=== PATIENT | female | born 2000 | race Caucasian/White ===

== ENCOUNTER 2023-01-12 12:02 | Emergency (ER) | payer BC, OTHER, SELFPAY ==
[2023-01-12 12:19] VITALS: BP 137/78; PULSE 93; RESP 18; TEMP 36.9; O2SAT 98
--- NOTE | 2023-01-12 12:35 | XR_ITS ---
The [address] [address] Patient Name: BRYNN WALLACE MRN: [id number] date: 2000 Sex: F Assigned Patient Location: ED.MAIN Current Patient Location: ER Accession/Order Number: [id number] Exam Date: 01/12/2023 13:18 Report Date: 01/12/2023 13:43 At the request of: TARYN GREEN Procedure: XR chest 1V EXAMINATION: XR chest 1V 01/12/2023 10:41 AM PDT HISTORY: cough TECHNIQUE: Single frontal view of the chest acquired. COMPARISONS: Chest x-ray 12/12/2020. FINDINGS: Lines/tubes/other: None. Heart and mediastinum: The heart and the mediastinum are within normal limits for technique. Bones: No acute osseous abnormality. Hypoplastic bilateral first ribs. Lungs: Minimal patchy opacification of the right base. No pulmonary edema. Lung volumes. Pleura: There is no significant pleural effusion or pneumothorax. Other: None. XR/XR chest 1V IMPRESSION: Minimal patchy opacification of the right base which could represent atelectasis (particularly in the setting of low lung volumes) versus pneumonia. Electronically authenticated by: ROBBIE AKBAR Date: 01/12/2023 13:43
--- NOTE | 2023-01-12 12:35 | ED.URI1 ---
HPI - URI/Sore Throat General Chief Complaint: Upper Respiratory Infection Stated Complaint: SORE THROAT Time Seen by Provider: 01/12/23 12:08 Source: patient History of Present Illness HPI Narrative: 22-year-old female presents to the emergency Department for cough. She's had this for three days. Two days ago she was tested for strep and Covid and they were negative and she was starting to feel better but she feels worse today. No known fever. 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 No vomiting or diarrhea. The cough is mostly nonproductive. Related Data Previous Rx's Medication Instructions Recorded azithromycin 250 mg tablet See Rx Instructions PO .COMPLEX #6 01/12/23 (Zithromax Z-Abraham) tabs Allergies Allergy/AdvReac Type Severity Reaction Status Date / Time No Known Drug Allergies Allergy Verified 01/12/23 12:19 Review of Systems ROS Narrative A ten point review of systems is negative except as noted above. Exam Narrative Exam Narrative: Nurses note and vital signs reviewed and patient is not hypoxic. General: The patient appears well and in no apparent distress. Patient is resting comfortably on cart. Skin: Warm, dry, no pallor noted. There is no rash noted. Head: Normocephalic, atraumatic Eye: Normal conjunctiva, no drainage Ears, Nose, Mouth, and Throat: oral mucosa is moist. Nares patent. Cardiovascular: Regular Rate and Rhythm Respiratory: Patient is in no distress, no accessory muscle use, lungs are clear to auscultation, no wheezing, rales or rhonchi Back: non-tender GI: soft and nontender Musculoskeletal: The patient has no evidence of calf tenderness, no pitting edema, symmetrical pulses noted bilaterally Neurological: A&O, normal speech Psychiatric: Cooperative Constitutional Vital Signs, click to edit/add: Last Vital Signs Temp 98.4 F 01/12/23 12:19 Pulse 93 H 01/12/23 12:19 Resp 18 01/12/23 12:19 BP 137/78 01/12/23 12:19 Pulse Ox 98 01/12/23 12:19 O2 Del Method Room Air 01/12/23 12:19 Course Vital Signs Vital signs: Vital Signs Temperature 98.4 F 01/12/23 12:19 Pulse Rate 93 H 01/12/23 12:19 Respiratory Rate 18 01/12/23 12:19 Blood Pressure 137/78 01/12/23 12:19 Pulse Oximetry 98 01/12/23 12:19 Oxygen Delivery Method Room Air 01/12/23 12:19 Temperature 98.4 F 01/12/23 12:19 Pulse Rate 93 H 01/12/23 12:19 Respiratory Rate 18 01/12/23 12:19 Blood Pressure 137/78 01/12/23 12:19 Pulse Oximetry 98 01/12/23 12:19 Oxygen Delivery Method Room Air 01/12/23 12:19 MDM - URI/Sore Throat MDM Narrative Medical decision making narrative: possible right lower lobe infiltrate is identified on the chest x-ray per radiologist and she's prescribed Zithromax. She was given a note to be off of work as well. Treatment diagnosis and follow-up were discussed with the patient. Differential Diagnosis Differential diagnosis: Likely upper respiratory infection and other (Covid, pneumonia) Lab Data Attestation: I reviewed the patient's lab results. Labs: Lab Results 01/12/23 01/12/23 01/12/23 Range/Units 12:23 12:25 13:00 Urine HCG, Qual Negative (NEGATIVE) SARS-CoV-2 (PCR) Negative (NEGATIVE) Streptococcus Screen Negative Imaging Data Chest x-ray: Radiologist's impression: Procedure: XR chest 1V EXAMINATION: XR chest 1V 01/12/2023 10:41 AM PDT HISTORY: cough TECHNIQUE: Single frontal view of the chest acquired. COMPARISONS: Chest x-ray 12/12/2020. FINDINGS: Lines/tubes/other: None. Heart and mediastinum: The heart and the mediastinum are within normal limits for technique. Bones: No acute osseous abnormality. Hypoplastic bilateral first ribs. Lungs: Minimal patchy opacification of the right base. No pulmonary edema. Lung volumes. Pleura: There is no significant pleural effusion or pneumothorax. Other: None. IMPRESSION: Minimal patchy opacification of the right base which could represent atelectasis (particularly in the setting of low lung volumes) versus pneumonia. Electronically authenticated by: ROBBIE AKBAR Date: 01/12/2023 13:43 Discharge Plan Discharge Chief Complaint: Upper Respiratory Infection Clinical Impression: Pneumonia Patient Disposition: Home, Self-Care Time of Disposition Decision: 13:51 Condition: Good Mode of Transportation: Private Vehicle Prescriptions / Home Meds: New azithromycin [Zithromax Z-Abraham] 250 mg tablet See Rx Instructions .ROUTE .COMPLEX Qty: 6 0RF Rx Instructions: For 250 mg dose pack: take 500 mg today (day 1), then 250 mg for 4 days (days 2-5) Instructions: Community Acquired Pneumonia (ED) Stand Alone Forms: Portal Instructions Referrals: JEANNA PASCUAL [Primary Care Provider] - 1 week
[2023-01-12 12:45] LABS: Internal Control Within Normal Limits; Strep A Antigen Screen Negative
[2023-01-12 12:48] LABS: SARS-CoV-2 Ag NEGATIVE (NEGATIVE)
[2023-01-12 13:06] LABS: HCG Qualitative Urine* NEGATIVE (NEGATIVE)
[2023-01-13 16:05] LABS: SARS-CoV-2 NAA NOT DETECTED (NOT DETECTE)
== END 2023-01-12 14:01 | disposition home or self-care (01) ==
PROVIDERS: Emergency Provider Emergency Medicine; PCP Family Medicine
DX: J18.9 Pneumonia, unspecified organism (principal); Z20.822 Contact with and (suspected) exposure to COVID-19
CPT/HCPCS: 71045; 84703; 87070; 87635; 87811; 87880; 99284; U0003

== ENCOUNTER 2023-06-07 07:26 | Emergency (ER) | payer BC, OTHER, SELFPAY ==
[2023-06-07 07:36] VITALS: BP 141/83; PULSE 83; RESP 18; TEMP 36.8; O2SAT 100; BMI 36.7
--- NOTE | 2023-06-07 07:44 | ED_ITS ---
HPI - General Adult General Chief complaint: Abdominal Pain Stated complaint: NAUSEA, FEVER Time Seen by Provider: 06/07/23 07:34 Source: patient Mode of arrival: walk-in Limitations: no limitations History of Present Illness HPI narrative: 23-year-old female presents for nausea vomiting and diarrhea for 6 days. She states that her boyfriend had some bodyaches and her daughter was ill as well. She has had a slight cough. Related Data Home Medications Medication Instructions Recorded Confirmed metformin 500 mg tablet 500 mg PO DAILY 06/07/23 06/07/23 Previous Rx's Medication Instructions Recorded ondansetron 4 mg disintegrating 4 mg PO Q6H PRN nausea and 06/07/23 tablet vomiting #20 tabs Allergies Allergy/AdvReac Type Severity Reaction Status Date / Time No Known Drug Allergies Allergy Verified 01/12/23 12:19 Review of Systems ROS Narrative A ten point review of systems is negative except as noted above. PFSH PFSH Social History Smoking status: Current every day smoker Exam Narrative Exam Narrative: Nurses note and vital signs reviewed and patient is not hypoxic. General: The patient appears well and in no apparent distress. Patient is resting comfortably on cart. Skin: Warm, dry, no pallor noted. There is no rash noted. Head: Normocephalic, atraumatic Eye: Normal conjunctiva, no drainage Ears, Nose, Mouth, and Throat: oral mucosa is moist. Nares patent. Cardiovascular: Regular Rate and Rhythm Respiratory: Patient is in no distress, no accessory muscle use, lungs are clear to auscultation, no wheezing, rales or rhonchi Back: non-tender GI: Soft and nontender Musculoskeletal: No joint swelling Neurological: A&O, normal speech Psychiatric: Cooperative Constitutional Vital Signs, click to edit/add: Last Vital Signs Temp 98.3 F 06/07/23 07:36 Pulse 78 06/07/23 08:22 Resp 18 06/07/23 08:22 BP 118/58 06/07/23 08:22 Pulse Ox 100 06/07/23 08:22 O2 Del Method Room Air 06/07/23 07:36 Course Vital Signs Vital signs: Vital Signs Temperature 98.3 F 06/07/23 07:36 Pulse Rate 83 06/07/23 07:36 Respiratory Rate 18 06/07/23 07:36 Blood Pressure 141/83 06/07/23 07:36 Pulse Oximetry 100 06/07/23 07:36 Oxygen Delivery Method Room Air 06/07/23 07:36 Temperature 98.3 F 06/07/23 07:36 Pulse Rate 78 06/07/23 08:22 Respiratory Rate 18 06/07/23 08:22 Blood Pressure 118/58 06/07/23 08:22 Pulse Oximetry 100 06/07/23 08:22 Oxygen Delivery Method Room Air 06/07/23 07:36 Medical Decision Making MDM Narrative Medical decision making narrative: Labs are nonspecific. She is not and her COVID and influenza test are negative. She is feeling improved and is able to be discharged home. Treatment diagnosis and follow-up were discussed with the patient Differential Diagnosis Differential Diagnosis: Gastroenteritis, food poisoning, viral illness Lab Data Lab results reviewed: Yes I reviewed the patient's lab results Labs: Lab Results 06/07/23 06/07/23 Range/Units 07:40 07:54 WBC 8.8 (4.0-11.0) 10^3/uL RBC 5.05 (4.20-5.40) 10^6/uL Hgb 14.5 (12.0-16.0) g/dL Hct 44.5 (36.0-48.0) % MCV 88.1 (81.0-99.0) fL MCH 28.7 (26.7-34.0) pg MCHC 32.6 (29.9-35.2) g/dL RDW 12.0 (11.0-15.0) % Plt Count 306 (150-450) 10^3/uL MPV 9.9 (9.5-13.5) fL Neut % (Auto) 72.9 (43.0-75.0) % Lymph % (Auto) 19.3 L (20.5-60.0) % [place] % (Auto) 5.8 (1.7-12.0) % Eos % (Auto) 1.1 (0.9-7.0) % Baso % (Auto) 0.7 (0.2-2.0) % Neut # (Auto) 6.4 (1.4-6.5) 10^3/uL Lymph # (Auto) 1.7 (1.2-3.8) 10^3/uL [place] # (Auto) 0.5 (0.3-0.8) 10^3/uL Eos # (Auto) 0.1 (0.0-0.7) 10^3/uL Baso # (Auto) 0.1 (0.0-0.1) 10^3/uL Abs Immat Gran (auto) 0.02 (0.00-0.03) 10^3/uL Imm/Tot Granulo (auto) 0.2 (0.0-0.5) % Sodium 139 (136-145) mmol/L Potassium 3.4 L (3.5-5.1) mmol/L Chloride 104 (98-107) mmol/L Carbon Dioxide 25.5 (21.0-32.0) mmol/L Anion Gap 12.9 BUN 10.0 (7.0-18.0) mg/dL Creatinine 0.79 (0.55-1.02) mg/dL Est GFR ( Amer) >60 (>=60) Est GFR (Non-Af Amer) >60 (>=60) BUN/Creatinine Ratio 12.7 Glucose 93 (74-106) mg/dL Calcium 9.2 (8.5-10.1) mg/dL Serum HCG, Qual Negative (NEGATIVE) Influenza Type A Ag Negative Influenza Type B Ag Negative SARS-CoV-2 Ag (CV2AG) Negative (NEGATIVE) Discharge Plan Discharge Chief Complaint: Abdominal Pain Clinical Impression: Gastroenteritis Patient Disposition: Home, Self-Care Time of Disposition Decision: 08:55 Condition: Good Mode of Transportation: Private Vehicle Prescriptions / Home Meds: New ondansetron 4 mg tablet,disintegrating 4 mg PO Q6H PRN (Reason: nausea and vomiting) Qty: 20 0RF No Action metformin 500 mg tablet 500 mg PO DAILY Instructions: Gastroenteritis (ED) Stand Alone Forms: Portal Instructions Referrals: JEANNA PASCUAL [Primary Care Provider] - 1 week
[2023-06-07] MEDS: 0.9 % SODIUM CHLORIDE 1,000 ML 1000 ML IV (07:56)
[2023-06-07] MEDS: ONDANSETRON PF 4 MG/2 ML VIAL IV (07:56)
[2023-06-07 08:14] LABS: Basophils Absolute Auto 0.1 10^3/uL (0.0-0.1); Basophils Percent Auto 0.7 % (0.2-2.0); Eosinophils Absolute Auto 0.1 10^3/uL (0.0-0.7); Eosinophils Percent Auto 1.1 % (0.9-7.0); Hematocrit 44.5 % (36.0-48.0); Hemoglobin 14.5 g/dL (12.0-16.0); Immature Granulocytes Abs Auto 0.02 10^3/uL (0.00-0.03); Immature Granulocytes Pct Auto 0.2 % (0.0-0.5); Lymphocytes Absolute Auto 1.7 10^3/uL (1.2-3.8); Lymphocytes Percent Auto 19.3 % (20.5-60.0); Mean Corpuscular HGB Conc 32.6 g/dL (29.9-35.2); Mean Corpuscular Hemoglobin 28.7 pg (26.7-34.0); Mean Corpuscular Volume 88.1 fL (81.0-99.0); Mean Platelet Volume 9.9 fL (9.5-13.5); Monocytes Absolute Auto 0.5 10^3/uL (0.3-0.8); Monocytes Percent Auto 5.8 % (1.7-12.0); Neutrophils Absolute Auto 6.4 10^3/uL (1.4-6.5); Neutrophils Percent Auto 72.9 % (43.0-75.0); Platelet Count 306 10^3/uL (150-450); Red Blood Count 5.05 10^6/uL (4.20-5.40); White Blood Count 8.8 10^3/uL (4.0-11.0)
[2023-06-07 08:17] LABS: Anion Gap 12.9; BUN Creatinine Ratio 12.7; Calcium 9.2 mg/dL (8.5-10.1); Carbon Dioxide 25.5 mmol/L (21.0-32.0); Chloride 104 mmol/L (98-107); Estimated GFR (African America >60 (>=60); Estimated GFR (Non-African Ame >60 (>=60); Glucose 93 mg/dL (74-106); Potassium 3.4 mmol/L (3.5-5.1); Sodium 139 mmol/L (136-145)
[2023-06-07 08:18] LABS: HCG Qualitative NEGATIVE (NEGATIVE)
[2023-06-07 08:22] VITALS: BP 118/58; PULSE 78; RESP 18; O2SAT 100
[2023-06-07 08:31] LABS: SARS-CoV-2 Ag NEGATIVE (NEGATIVE)
[2023-06-07 08:47] LABS: Influenza Virus A Antigen Negative; Influenza Virus B Antigen Negative; Internal Control Within Normal Limits
== END 2023-06-07 09:04 | disposition home or self-care (01) ==
PROVIDERS: Emergency Provider Emergency Medicine; PCP Family Medicine
DX: K52.9 Noninfective gastroenteritis and colitis, unspecified (principal); F17.210 Nicotine dependence, cigarettes, uncomplicated; Z20.822 Contact with and (suspected) exposure to COVID-19
CPT/HCPCS: 36415; 80048; 84703; 85025; 87804; 87811; 96374; 99284; J2405

== ENCOUNTER 2023-09-23 07:31 | Emergency (ER) | payer BC, OTHER, SELFPAY ==
[2023-09-23 07:34] VITALS: BP 122/72; PULSE 84; TEMP 36.6; O2SAT 100; BMI 23.2
--- NOTE | 2023-09-23 07:40 | ECG_ITS ---
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
--- NOTE | 2023-09-23 07:48 | US_ITS ---
The [address] [address] Patient Name: BRYNN WALLACE MRN: [id number] date: 2000 Sex: F Assigned Patient Location: ER Current Patient Location: ER Accession/Order Number: [id number] Exam Date: 09/23/2023 07:55 Report Date: 09/23/2023 08:31 At the request of: ARASH PALACIOS Procedure: US OB transvaginal EXAM: OB ultrasound HISTORY: . abd pain, 9 weeks . COMPARISON: None. TECHNIQUE: Transvaginal scanning was performed FINDINGS: Scanning of the pelvis demonstrates a well-formed gestational sac within the endometrial cavity of the fundus of uterus. There is a yolk sac and pole noted with a heart rate of 180. Estimated gestational age by today's ultrasound is 8 weeks 5 days. Right ovary measures 3.5 x 2 x 1.6 cm. Color-flow is noted. No masses are noted. Left ovary measures 2.7 x 2.3 x 1.9 cm. Color-flow is noted. No masses are noted. The cervix is closed and measures 5.2 cm. US/US OB transvaginal IMPRESSION: 1. Well-formed gestational sac within the endometrial cavity of the fundus of uterus with a pole and yolk sac noted with a heart rate of 175. 2. Estimated gestational age by today's ultrasound is 8 weeks 5 days with an JAYE of 04/29/2024. 3. Normal-appearing ovaries. 4. Cervix is long and closed. Electronically authenticated by: HAYLIE LIANG Date: 09/23/2023 08:31
[2023-09-23 07:56] LABS: Basophils Absolute Auto 0.1 10^3/uL (0.0-0.1); Basophils Percent Auto 0.5 % (0.2-2.0); Eosinophils Absolute Auto 0.1 10^3/uL (0.0-0.7); Eosinophils Percent Auto 0.7 % (0.9-7.0); Hematocrit 40.6 % (36.0-48.0); Hemoglobin 13.1 g/dL (12.0-16.0); Immature Granulocytes Abs Auto 0.05 10^3/uL (0.00-0.03); Immature Granulocytes Pct Auto 0.5 % (0.0-0.5); Lymphocytes Absolute Auto 1.5 10^3/uL (1.2-3.8); Lymphocytes Percent Auto 14.4 % (20.5-60.0); Mean Corpuscular HGB Conc 32.3 g/dL (29.9-35.2); Mean Corpuscular Hemoglobin 28.4 pg (26.7-34.0); Mean Corpuscular Volume 88.1 fL (81.0-99.0); Monocytes Absolute Auto 0.5 10^3/uL (0.3-0.8); Monocytes Percent Auto 4.3 % (1.7-12.0); Neutrophils Absolute Auto 8.5 10^3/uL (1.4-6.5); Neutrophils Percent Auto 79.6 % (43.0-75.0); Platelet Count 259 10^3/uL (150-450); Red Blood Count 4.61 10^6/uL (4.20-5.40); Red Cell Distribution Width 12.6 % (11.0-15.0); White Blood Count 10.7 10^3/uL (4.0-11.0)
[2023-09-23 08:20] VITALS: BP 120/73; PULSE 80; O2SAT 99
[2023-09-23] MEDS: 0.9 % SODIUM CHLORIDE 1,000 ML 500 ML IV (08:21)
[2023-09-23 08:38] LABS: Bilirubin Urine NEGATIVE (NEGATIVE); Blood Urine NEGATIVE (NEGATIVE); Clarity Urine CLEAR (CLEAR); Color Urine YELLOW (YELLOW); Glucose Urine UA NEGATIVE (NEGATIVE); Ketones Urine 15 mg/dL (NEGATIVE); Leukocyte Esterase Urine NEGATIVE (NEGATIVE); Nitrite Urine NEGATIVE (NEGATIVE); Protein Urine NEGATIVE (NEG/TRACE)
[2023-09-23 08:40] LABS: Anion Gap 12.7; BUN Creatinine Ratio 7.9; Calcium 8.5 mg/dL (8.5-10.1); Carbon Dioxide 23.9 mmol/L (21.0-32.0); Chloride 105 mmol/L (98-107); Estimated GFR (African America >60 (>=60); Estimated GFR (Non-African Ame >60 (>=60); Glucose 109 mg/dL (74-106); Potassium 3.6 mmol/L (3.5-5.1); Sodium 138 mmol/L (136-145)
[2023-09-23 08:41] LABS: HCG Quantitative 124620 mIU/mL
[2023-09-23 08:41] LABS: Urine Microscopic Indicated NO
[2023-09-23] MEDS: ONDANSETRON PF 4 MG/2 ML VIAL IV ×2 (09:14→09:50)
[2023-09-23 09:16] VITALS: BP 122/59; PULSE 78; O2SAT 100
--- NOTE | 2023-09-23 09:32 | ED_ITS ---
HPI - Abdominal Pain General Chief Complaint: Abdominal Pain Stated Complaint: shortness of breath/chest pressure 9 weeks preg Time Seen by Provider: 09/23/23 08:55 Source: patient Mode of arrival: walk-in Limitations: no limitations History of Present Illness HPI narrative: This patient present to the emergency room with abdominal discomfort nausea and inability to keep fluids down. She is approximately 9 weeks. She is scheduled to see her [employer]VEL[employer] ADDRESS[employer] doctor next week. She was on her way to work today and just felt a little fluttering in her chest and palpitations. She is currently 9 weeks and this is her first . She is not having any vaginal bleeding. 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 She does not have any hematuria dysuria or back pain. She does not have any history of DVT or phlebitis. Does not have any tobacco use or alcohol use. She is otherwise very healthy. On arrival here they did do an EKG and she was in a sinus rhythm and her vital signs were stable. She has not taken anything for her nausea but has been getting worse the last week or so so that her fluid intake is been de creased. She has not had UTIs during this and she has not had any problems with her glucose to her knowledge. Related Data Home Medications ?Medication ?Instructions ?Recorded ?Confirmed albuterol sulfate 90 mcg/actuation 2 puff inhalation Q4H PRN 09/23/23 09/23/23 aerosol inhaler shortness of breath or wheezing Previous Rx's ?Medication ?Instructions ?Recorded ondansetron 4 mg disintegrating 4 mg PO Q6H PRN nausea and 06/07/23 tablet vomiting #20 tabs Allergies Allergy/AdvReac Type Severity Reaction Status Date / Time No Known Drug Allergies Allergy Verified 01/12/23 12:19 PFSH PFS Social History Smoking status: Current every day smoker Exam Narrative Exam Narrative: On arrival with her history we ordered laboratory testing, pelvic ultrasound and IV fluids. Her vitals are stable she is very pleasant awake alert good historian no obvious distress. Examination of her heart and lung showed absolutely no cardiac heart murmur gallop or rub or arrhythmia. Her lungs were clear with no wheeze rales or rhonchi. Abdominal examination shows no peritoneal findings no guarding rebound or rigidity. No abdominal masses. No tenderness in the epigastric area. Her discomfort is in the supra umbilical area and a little bit towards the right upper quadrant but I do not detect a positive Olivo sign. Constitutional Vital Signs, click to edit/add: Last Vital Signs Temp 97.9 F 09/23/23 07:34 Pulse 78 09/23/23 09:16 Resp 20 09/23/23 09:16 BP 122/59 09/23/23 09:16 Pulse Ox 100 09/23/23 09:16 O2 Del Method Room Air 09/23/23 09:16 Course Vital Signs Vital signs: Vital Signs Temperature 97.9 F 09/23/23 07:34 Pulse Rate 84 09/23/23 07:34 Respiratory Rate 20 09/23/23 07:34 Blood Pressure 122/72 09/23/23 07:34 Pulse Oximetry 100 09/23/23 07:34 Oxygen Delivery Method Room Air 09/23/23 07:34 Temperature 97.9 F 09/23/23 07:34 Pulse Rate 78 09/23/23 09:16 Respiratory Rate 20 09/23/23 09:16 Blood Pressure 122/59 09/23/23 09:16 Pulse Oximetry 100 09/23/23 09:16 Oxygen Delivery Method Room Air 09/23/23 09:16 MDM - Abdominal Pain MDM Narrative Medical decision making narrative: Patient's ultrasound confirms intrauterine with no actual complications. Her blood glucose was normal as was her G0306, with no evidence of anemia or elevation of her white blood cell count. Routine chemistries were also normal. She responded very nicely to IV fluids and intravenous Zofran. We did discuss the possibility that some of this pain she might be having could be a early indication of biliary dysfunction. I do not believe she has a surgical problem that needs hospitalization or surgical evaluation at this time. She is scheduled to see her [employer] ADDRESSER next week for her first visit since she has been although she has been working with him to become . Lab Data Labs: Lab Results 09/23/23 09/23/23 Range/Units 07:45 08:20 WBC 10.7 (4.0-11.0) 10^3/uL RBC 4.61 (4.20-5.40) 10^6/uL Hgb 13.1 (12.0-16.0) g/dL Hct 40.6 (36.0-48.0) % MCV 88.1 (81.0-99.0) fL MCH 28.4 (26.7-34.0) pg MCHC 32.3 (29.9-35.2) g/dL RDW 12.6 (11.0-15.0) % Plt Count 259 (150-450) 10^3/uL MPV 10.0 (9.5-13.5) fL Neut % (Auto) 79.6 H (43.0-75.0) % Lymph % (Auto) 14.4 L (20.5-60.0) % [place] % (Auto) 4.3 (1.7-12.0) % Eos % (Auto) 0.7 L (0.9-7.0) % Baso % (Auto) 0.5 (0.2-2.0) % Neut # (Auto) 8.5 H (1.4-6.5) 10^3/uL Lymph # (Auto) 1.5 (1.2-3.8) 10^3/uL [place] # (Auto) 0.5 (0.3-0.8) 10^3/uL Eos # (Auto) 0.1 (0.0-0.7) 10^3/uL Baso # (Auto) 0.1 (0.0-0.1) 10^3/uL Abs Immat Gran (auto) 0.05 H (0.00-0.03) 10^3/uL Imm/Tot Granulo (auto) 0.5 (0.0-0.5) % Sodium 138 (136-145) mmol/L Potassium 3.6 (3.5-5.1) mmol/L Chloride 105 (98-107) mmol/L Carbon Dioxide 23.9 (21.0-32.0) mmol/L Anion Gap 12.7 BUN 6.0 L (7.0-18.0) mg/dL Creatinine 0.76 (0.55-1.02) mg/dL Est GFR ( Amer) >60 (>=60) Est GFR (Non-Af Amer) >60 (>=60) BUN/Creatinine Ratio 7.9 Glucose 109 H (74-106) mg/dL Calcium 8.5 (8.5-10.1) mg/dL HCG, Quant [id number] mIU/mL Urine Color Yellow (YELLOW) Urine Clarity Clear (CLEAR) Urine pH 7.0 (5.0-9.0) Ur Specific [place] 1.020 (1.005-1.025) Urine Protein Negative (NEG/TRACE) mg/dL Urine Glucose (UA) Negative (NEGATIVE) mg/dL Urine Ketones 15 A (NEGATIVE) mg/dL Urine Occult Blood Negative (NEGATIVE) Urine Nitrite Negative (NEGATIVE) Urine Bilirubin Negative (NEGATIVE) Urine Urobilinogen 1.0 (0.2-1.0) EU/dL Ur Leukocyte Esterase Negative (NEGATIVE) Discharge Plan Discharge Stand Alone Forms: Portal Instructions Chief Complaint: Abdominal Pain Clinical Impression: Intrauterine , Fluid volume depletion Patient Disposition: Home, Self-Care Time of Disposition Decision: 09:36 Prescriptions / Home Meds: No Action ondansetron 4 mg tablet,disintegrating 4 mg PO Q6H PRN (Reason: nausea and vomiting) Qty: 20 0RF albuterol sulfate 90 mcg/actuation HFA aerosol inhaler 2 puff INHALATION Q4H PRN (Reason: shortness of breath or wheezing) Print Language: Malawian Additional Instructions: Use Zofran on a limited basis./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
== END 2023-09-23 09:58 | disposition home or self-care (01) ==
PROVIDERS: Emergency Provider Emergency Medicine Emergency Medical Services; PCP Family Medicine
DX: O99.281 Endocrine, nutritional and metabolic diseases complicating pregnancy, first trimester (principal); E86.9 Volume depletion, unspecified; Z3A.09 9 weeks gestation of pregnancy
CPT/HCPCS: 36415; 76817; 80048; 81003; 84702; 85025; 93005; 96361; 96374; 96376; 99284

== ENCOUNTER 2023-10-14 14:00 | Outpatient (OUT) | payer BC, OTHER, SELFPAY ==
--- OUTSIDE RECORDS SUMMARY | 2023-10-14 14:20 | XMS_ITS | CCD ---
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 Comment on above: Performed By: #### 3 [id number] #### [facility] (DEFAULT) [address] [place] [address] 41157 CBC w/ Auto Diffon 3 Man Diff? Auto Invalid Interpretation Code [facility] Comment on above: Performed By: #### 3 [id number] #### [facility] (DEFAULT) [address] [place] [address] 62728 Erythrocyte distribution width (RBC) [Ratio] 13.1 % Normal 11.5-15.0 [facility] Comment on above: Performed By: #### 3 [id number] #### [facility] (DEFAULT) [address] [place] [address] 83353 Hematocrit (Bld) [Volume fraction] 40.7 % High 33.7-40.4 [facility] Comment on above: Performed By: #### 3 [id number] #### [facility] (DEFAULT) [address] [place] [address] 88450 Hemoglobin (Bld) [Mass/Vol] 14.0 g/dL Normal 11.3-15.9 [facility] Comment on above: Performed By: #### 3 [id number] #### [facility] (DEFAULT) [address] [place] [address] 91876 MCH (RBC) [Entitic mass] 29 pg Normal 24-34 [facility] Comment on above: Performed By: #### 3 [id number] #### [facility] (DEFAULT) [address] [place] [address] 42074 MCHC (RBC) [Mass/Vol] 34 g/dL Normal 26-37 [facility] Comment on above: Performed By: #### 3 [id number] #### [facility] (DEFAULT) [address] [place] [address] MCV (RBC) [Entitic vol] 85 fL Normal 81-100 [facility] Comment on above: Performed By: #### 3 [id number] #### [facility] (DEFAULT) [address] [place] [address] Platelet 275 x10 Normal 138-427 [facility] Comment on above: Performed By: #### 3 [id number] #### [facility] (DEFAULT) [address] [place] [address] Platelet mean volume (Bld) [Entitic vol] 7.7 fL Normal 6.3-10.2 [facility] Comment on above: Performed By: #### 3 [id number] #### [facility] (DEFAULT) [address] [place] [address] RBC 4.79 x10 Normal 3.70-5.30 [facility] Comment on above: Performed By: #### 3 [id number] #### [facility] (DEFAULT) [address] [place] [address] WBC 7.9 x10 Normal 3.5-10.5 [facility] Comment on above: Performed By: #### 3 [id number] #### [facility] (DEFAULT) [address] [place] [address] CMP Standardon 04-22-2023 eGFR Non AA >60 Invalid Interpretation Code [facility] Comment on above: Performed By: #### 3 [id number] #### [facility] (DEFAULT) [address] [place] [address] eGFR AA >60 Invalid Interpretation Code [facility] Comment on above: Performed By: #### 3 [id number] #### [facility] (DEFAULT) [address] [place] [address] 41438 Albumin [Mass/Vol] 4.0 g/dL Normal 3.5-5.0 [facility] Comment on above: Performed By: #### 3 [id number] #### [facility] (DEFAULT) [address] [place] [address] 49412 Albumin/Globulin [Mass ratio] 1.2 {ratio} Low 1.4-2.6 [facility] Comment on above: Performed By: #### 3 [id number] #### [facility] (DEFAULT) [address] [place] [address] 69910 Alk Phos 68 IU/L Normal 32-91 [facility] Comment on above: Performed By: #### 3 [id number] #### [facility] (DEFAULT) [address] [place] [address] 23201 ALT [Catalytic activity/Vol] 14.0 U/L Normal 14.0-54.0 [facility] Comment on above: Performed By: #### 3 [id number] #### [facility] (DEFAULT) [address] [place] [address] 55897 Anion gap [Moles/Vol] 10.9 mmol/L Normal 5.0-19.0 [facility] Comment on above: Performed By: #### 3 [id number] #### [facility] (DEFAULT) [address] [place] [address] 26123 AST [Catalytic activity/Vol] 18 U/L Normal 15-41 [facility] Comment on above: Performed By: #### 3 [id number] #### [facility] (DEFAULT) [address] [place] [address] 13204 Bili Total 0.6 mg/dL Normal 0.3-1.2 [facility] Comment on above: Performed By: #### 3 [id number] #### [facility] (DEFAULT) [address] [place] [address] 87051 Calcium [Mass/Vol] 8.8 mg/dL Low 8.9-10.3 [facility] Comment on above: Performed By: #### 3 [id number] #### [facility] (DEFAULT) [address] [place] [address] 45891 Chloride [Moles/Vol] 107 mmol/L Normal 101-111 [facility] Comment on above: Performed By: #### 3 [id number] #### [facility] (DEFAULT) [address] [place] [address] 07975 CO2 [Moles/Vol] 23 mmol/L Normal 21-32 [facility] Comment on above: Performed By: #### 3 [id number] #### [facility] (DEFAULT) [address] [place] [address] 44202 Creatinine [Mass/Vol] 0.68 mg/dL Normal 0.60-1.30 [facility] Comment on above: Performed By: #### 3 [id number] #### [facility] (DEFAULT) [address] [place] [address] 73455 Globulin (S) [Mass/Vol] 3.3 g/dL Normal 1.5-4.3 [facility] Comment on above: Performed By: #### 3 [id number] #### [facility] (DEFAULT) [address] [place] [address] 46687 Glucose [Mass/Vol] 103.0 mg/dL Normal 74.0-118.[address] [facility] Comment on above: Performed By: #### 3 [id number] #### [facility] (DEFAULT) [address] [place] [address] 82045 Osmolality 274 mOsm/L Invalid Interpretation Code [facility] Comment on above: Performed By: #### 3 [id number] #### [facility] (DEFAULT) [address] [place] [address] 39658 Potassium [Moles/Vol] 3.9 mmol/L Normal 3.6-5.1 [facility] Comment on above: Performed By: #### 3 [id number] #### [facility] (DEFAULT) [address] [place] [address] 61633 Protein [Mass/Vol] 7.3 g/dL Normal 6.5-8.1 [facility] Comment on above: Performed By: #### 3 [id number] #### [facility] (DEFAULT) [address] [place] [address] 13415 Sodium [Moles/Vol] 137.0 mmol/L Normal 136.0-144.0 [facility] Comment on above: Performed By: #### 3 [id number] #### [facility] (DEFAULT) [address] [place] [address] 50748 Urea nitrogen [Mass/Vol] 12 mg/dL Normal 8-26 [facility] Comment on above: Performed By: #### 3 [id number] #### [facility] (DEFAULT) [address] [place] [address] 59437 Urea nitrogen/Creatinine [Mass ratio] 17.6 mg/mg High 4.6-16.2 [facility] Comment on above: Performed By: #### 3 [id number] #### [facility] (DEFAULT) [address] [place] [address] 08799 Lipid Panel Standardon 04-22 Cholesterol [Mass/Vol] 158.0 mg/dL Normal 66.0-200.0 [facility] Comment on above: Performed By: #### 3 [id number] #### [facility] (DEFAULT) [address] [place] [address] 78046 Cholesterol in HDL [Mass/Vol] 51 mg/dL Normal 40-71 [facility] Comment on above: Performed By: #### 3 [id number] #### [facility] (DEFAULT) [address] [place] [address] 16249 Cholesterol in LDL [Mass/Vol] 98 mg/dL Normal 1-100 [facility] Comment on above: Performed By: #### 3 [id number] #### [facility] (DEFAULT) [address] [place] [address] 32915 Cholesterol.total/Cholest amanda in HDL [Mass ratio] 3.0 {ratio} Normal 0.0-4.5 [facility] Comment on above: Performed By: #### 3 [id number] #### [facility] (DEFAULT) [address] [place] [address] 23198 Triglyceride [Mass/Vol] 43.0 mg/dL Normal 0.0-150.0 [facility] Comment on above: Performed By: #### 3 [id number] #### [facility] (DEFAULT) [address] [place] [address] 62837 VLDL. 9 mg/dL Normal 5-40 [facility] Comment on above: Performed By: #### 3 [id number] #### [facility] (DEFAULT) [address] [place] [address] Progesterone LCon 02-11-2023 Progesterone LC 0.7 ng/mL Invalid Interpretation Code [facility] Comment on above: Result Comment: Foll icular phase 0.1 - 0.9 Luteal phase 1.8 - 23.9 Ovulation phase 0.1 - 12.0 First trimester 11.0 - 44.3 Second trimester 25.4 - 83.3 Third trimester 58.7 - 214.0 Postmenopausal 0.0 - 0.1 Performed At: [facility] [address] [place], [place] [id number] Bibi Irwin PhD Ph:[phone] Performed By: #### 3 [id number] #### [facility] (DEFAULT) [address] [place] [address] 15766 Coding Summaryon 01-17-2023 Coding Summary HTMLBase 64 ZaoqikziUDr4nKh+PGh lYWQ+BU4OVHFaO00isQ VeuL8kD7FQBHxSWovuT WWRLPkKDjEdhvVaLW8f aXNjZXJu IC8+WB8uQNJoOcbubPQ uf0M5gMM8U14lfi9lJF knnYJ5MDAoJyTruxezq 5ksjUc4MAkhFietDhGy QJZxzG11LZS7bS62Fj5 0kNBfeCCbl5dveCl1Sy KzVXFrOKM4gVoeORppg 3GmPNLyM55xrDWzd1W4 IGNvbGxhcHNlOyBlbXB 5nD3oBMguqhhgt2pohw epYjf5iw44gHOes4Q0b BI4B1KehyP7LQNcaJOj TxuroQIHnM8fxyaqv7p jbmrcEcWrPRJcUGg3UF a2ULNaoIhkZmHnYS76T DC8NHGlfuPoX0FfYCQt iBgrTaM1n4T5Na4VZ8T FUysnT4VWLEEEFBecmN Q+PH35qe39B9BwFzriE um2GQHmOXE9hOT8jJ2s HRKvWVfkm0M3sBP3V4D nrfIsvb3ja2daBBDjRS yjH36qeOSil1Z6CCYch QA1ALSjzPekGqYavT21 Oyc+BZKjoNbdn8JnHir zz1mpr9ewcMf0YuivHD RpteLjuSviZPZ8f2PkM y8qOODleDZ7eCQ3mD4h ZsTuQrR8FIonB337ZtD fbCEuMygvN07wE7ZsgN A+CVAjOte0BMEhzVbsM P6cN1UkBTNgnkxniIMe gJdjPV5qOACbevofMFB qcS5tDQRvS0m6NuXaNy C3PTmbJ9CgMLRcvfdnA t04bU1jZjPgCaV7FMyu E1MmpcH1DXUzwXJfFRk xKBB1Z50kg3U7LYPmCD PsULC0nGI1pF9dtNwsc jogbGVmdDsgdmVydGlj BLzlCXzzI975HXSvbZx nPkNvZGluZyBEYXRlOi AgMDkvMjUvMjAyMzwvd GQ+CWQjXUM6bVeoNBBe aWSrETykJh4agPftmDf cDE3gLQTqrschGQNmeW 6fYIOysJKzxKwbRK9aH PVodcciy592NgRzOTC0 BOFgnJJlW4NzjK9jOlZ gOHAgFPNvJ8YntQSzNN qoN229ZIliYzB3VNHot dWqE4XkCWUsbCjzUzK0 w5E7Fw3Sr9MuxkcpW6V erGYmSiNoIvogEYx0F2 RkPjwvdHI+VH41ZEIyX M16XPq4PXY9sHobDDpl FIWgA4RtrO7zMqFjDML kZGRkOyc+PHRhYmxlIH dpZHRoPScxMDAlJyBzd XveMI2bDk1vWKNcIXJv aJkdqXFaXyXdm9emIZB eLBhbHB7hqSxeR2ShrO R3HWNrx4c0Gt97U95oY 3JvdXA+AHLxdBE7jBP5 qC6xMbWxMyG6VXhnB24 0LyMxhZJxAzncm3rwv4 ttpJw6PqF8LHTxddRxn VubLXQ2r2IzOf00O75y IHdpZHRoPSIxNSUiIHZ luXuzfk4ofG6yWj5+PG MshFD5mJH2sM6aZvOxJ sE9TXepW309VdNcaYPo Pnotl3qtf7vafZn9SkZ jQSNzbsRxhAjhPUK5z1 EaPq67H7PobQixf5NgP cn3ym04yJHcz3A9rND1 X2CvQHDejtplhMAynRs nQY3xJJPalgfpIFHrdQ 1hRBQpZ3r7KhBwPhR9J NioQ9EwltD2LMOhwYPf VYAksSXXwS1xfdgri6m dbtipDbMpSEJtCVl5SV n7EATowIeoQvSuZGI2A pI3BFQ9sNBxkZ9duJax ougihS6eAtr+CWC2mVA hiYCDJN3kDumloSI+PH KrDPW9tLhcOAwtEUOyr B3pZSIwT7v8OfFzPeR2 IDjrU2ZvudF2IMZzoNP kRJFiwFZWpO0rzdefb9 lkvmlqOiDxTGEyNOr4U Ev7EZUybOpeMzBsYVA2 XgV9DEA2jWHoiP3pdNf sehzkqC9pSld+QmlydG zdNIF2YNy9W4YyLab0O XJwiEtySL2hgKSeYWws Sw1daEdvkXorNR3nDXA rqwnvc667WvCrb7liSB HtxYZjJJbhBMP1S05rx 2E9TSOgREXqGOZ5aIV3 jI1mgUvvvouenCWjdDg gdmVydGljYWwtYWxpZ2 43HQVdoTnbEeJsLQr2K 1AcPdz5QUVtbRnoBL0x lCIiRCjwQq8zeKalvQa gAQ1cYMZsbvhgx860Wv Bgy0wxMDRpiJHlMIlpE TX9Y90bv3W0ZNQrPIGj QLM9wOO3uZ1uhFyspwr gbGVmdDsgdmVydGljYW dcEPkjB283JVGmoMniH rUaaOo0T8BrJna4BVLl lGadYL4diMJtYNmyLl1 liQjboRszPG8zFSMhpw qnx157PgTqy5baFUNaf KHqOWlaHWZ0Q82hi7R2 JBUfAURbPML9sSH1xD1 hbGlnbjogbGVmdDsgdm NxyKtgNGniCJafK761W HRvcDsnPlBhdGllbnQg IVorEPj9O0AmOpoaqEH +GT30FGSpUQ23mBEdoD Bqq5aduUj5MwHmALQvH YF7dFhxHYnaq6EiGDZp P13wmMLfl9R2JETryVr mcLRaTvBleWI3iT8hLL zwhzsjq4gnumfiMaquq 3pnpt84sP60I11pXJzf ZHRoPSIzMCUiIHZhbGl mav7bzE5eOs4+PGNvbC L3tMF4zK6lVJIoBcW0N RdpU174ItCdxCJfLeiy j3apd8arlSt4QaU7SHE dcnWudWatGJX0e8SkGe 88K34zCXoqCSMsESBwT IUqCLKruTrpwi0ixR7a Ii8+TWDupHZ3iYM2vO7 xCaHdDpD8CNdkQ325Ic QtbTWeEnbwR28kZ6Yff XA+HCUnYbw3AKQwdWzu EP0ipILxQPccYv2tOND 8InOaAfYrPYpnY4NpGH MxwdhfxksdfEY8YQXbS VFjoM79Ub0hnUlwNVWz hHOTpR1gjdwnk8amxst jViYvMLXtELz1EJm7AK BtbQisNyMxLGV7CnZ2Y NY4nIZfsT2uyQxoxgav gK2lV7NqJJIqvussAe8 0tV8fXcBtSwR5KCqcFh c+QkFLRVIsIEFMRVhBT kRSQSBNSUNIRUxMRTwv dGQ+DZQmQMW7oEfeNCh iRHZdpR3fKNKxI5g1Ux RnZbP5RMwyT9YlYSQgm qooMw56vL4hHtIfErV4 TGxnP7UlvvR2JEKxwNG yPEmkVYA7G20bu9Y2SZ XqHZLuIJG5eQL0vD7kx GlnbjogbGVmdDsgdmVy tEmsVIivGEthA575ELQ gpEhhEnVzSuJ9TcTqUK Z0T1EbZyc0YYSpeAmmF S4vgYZdDLdcHz0kaBjx mCrcXR0zKCQaguzoDKL ciG8aDTFkxAIwqMgyEF 2nDFSfnzifq575GcQrD CC3YQIqdOMuS6HilR7n KaGxLTDgNNPnE8HdaRC bBSpnD657WAjeXqD7JF EtjhZtQ9KyHNKubAzmY aE0x0H8Rx4tRFSPRTXw czwvdGQ+RLAxNGH4cTe dXIhaCKIywY1fBHAkU3 h0ZkZvDgS5POgbX4QtG ZJascdhUv62xY7tNgMg HtQ9FKbaE2ExxaY5BUV qmRFiQPtvRMS9E09jj9 P3ALOeQBApRUG7aJG4a D3feVorflitzGHagPhg ceEzbDucLUroGOkbA69 6IHRvcDsnPkZFTUFMRT wvdGQ+UYWxKEG6bPosR NjpTQXmdO3dNXAqT8d6 IvEjVrE7LYgtA0AzZBM mhsbmSa42bR5fHuWyLt U7DHtfN2JhmbJ5JGLrq OBeDVlfZPK4C32og4G0 ZIEcPVTrZGO1xIV1pO4 hbGlnbjogbGVmdDsgdm SruZdmGAyaNLlbX525F LGurQvsHc6YFM39OF34 E2JnMtdqzWAqiIT+PHR hYmxlIHdpZHRoPScxMD HaDnCqeAroAQ6wXt3yD GVyLWNvbGxhcHNlOiBj p3svKESeSDbxGT9dnHk vS5GztNR3WDYtq9y4Bf 04J29fF9EugYG+PGNvb VC5hZY5hX1fQbIyYwD8 RYrrZ390WeVwkXSvQza ar3esw3uhpJp2QqCoUS WvnbVytYhyDFY5o6OzO u85Q93fFGyeQCPgNTUw MIGfKZMcoGxomh8roS2 wIi8+UTOceZT7aIA4qE 2dDmSiAmF8LFelH310O qFhzFLgJbqfJ12tJ3Xk dXA+TFVtEke5BVKvzVb xQO6gsJAhFCtnTv5oLE U3GoIgLyIxBJnhW4GyG XUbldpoggneeVX1IGPu CYYvwH26Xm1cfIqlFc0 yHHSnAOO3RXDsrIHzH0 MgfT4lHeYhIRHqHWIlX 8AjlMGmECqcA212MWrb AuB9ECKeqeZfT4UfEZQ qmZyvTvV1k4E9Jj2LyA mjnTHxBE8xOlSkJUq4I 8TbUjd2BDCtlHjoYX1s bZLqYKseKo6ivAvzwZq jSJ8mXMQyxujgm169Ji Qko1laEANrnXUxQRvaG AQ5A41zi9V8KEZaTYXd QVM6wMC4eA8fwDrzttx gbGVmdDsgdmVydGljYW zgNLmoW253VSXsuKskT cLEUbc6T7BpIwd3HQEp xOwaTX2xnZJdRBhnNj6 syVooaNlsYV5nEFAqzn ihz883GbFph0dwMYJxp KLyTMxwSTD1S03cq7D6 PVKlWXOrQKD7tGB9nJ0 hbGlnbjogbGVmdDsgdm DroTljBAycSDglQ584I TZbmLalMz2TXkj4N7Kx Kep1MUNozLdxKW7nvOT lXAyjGs0txPhjfTtyVQ 8oLSEmnjxhh627DhUdl 8fdTKRglVCeEQngZRJ9 K83ik7L1LKFjXUNbXNP 9eDW9rU2amYniekpooY VmdDsgdmVydGljYWwtY NgoM503CBEjtOljIhKj eWVyOjwvdGQ+WJ65kk6 3T0TuGvhiTfw4LNHlCT N2yRM4cG1hNVXbLYoxc 3X6nCK9V8IzwaWckq7a b2x (more content not included)... Normal [facility] C Throaton 01-12-2023 C Throat Ordered by Discern. Normal throat dnog isolated No pathogens isolated Normal [facility] Comment on above: Performed By: #### 6 [id number] #### [facility] (DEFAULT) [address] [place] [address] Progesterone LCon 01-11-2023 Progesterone LC 8.7 ng/mL Invalid Interpretation Code [facility] Comment on above: Result Comment: Foll icular phase 0.1 - 0.9 Luteal phase 1.8 - 23.9 Ovulation phase 0.1 - 12.0 First trimester 11.0 - 44.3 Second trimester 25.4 - 83.3 Third trimester 58.7 - 214.0 Postmenopausal 0.0 - 0.1 Performed At: [address] [id number] Bibi Irwin PhD Ph:[phone] Performed By: #### 3 [id number] #### [facility] (DEFAULT) [address] [place] [address] ED Clinical Summaryon 2022 ED Clinical Summary [facility] ? Urgent Care [address] [place] [address] Clinical Summary PERSON INFORMATION Name: BRYNN WALLACE Age: 22 Years Sex: FEMALE : 2000 MRN: Acct#: Visit Reason: Throat pain - Adult; Body aches; SORE THROAT, HEADACHE Arrival: 01/10/2023 13:26:17 Discharge: 01/10/2023 15:12:00 LOS: 000 01:46 Check In: 01/10/2023 13:26:17 Checkout: 01/10/2023 15:12:00 Address: [address] [place] [address] PCP: Leah Azar PROVIDER INFORMATION Provider Role Assigned Unassigned Genesis Calvillo PA-C ED PA 01/10/2023 13:47:57 Kristen Velazquez RN ED Nurse 01/10/2023 13:53:38 VITALS INFORMATION Vital Sign Triage Latest Temperature Tympanic Temperature Temporal Artery Pulse Rate O2 Sat 99 % 99 % Respiratory Rate Blood Pressure /78 mmHg /78 mmHg MEDICAL INFORMATION Medications Given: Allergy Information: No Known Medication Allergies PHYSICIAN DOCUMENTATION DISCHARGE INFORMATION: Discharge Disposition: Home Discharge Location: Home PATIENT EDUCATION INFORMATION Instructions: Sore Throat; Viral Illness, Adult Follow-Up: With: Address: When: Leah Azar [address] [place], [place] [id number] DIAGNOSIS: 1:Systemic viral illness; 2:Viral pharyngitis Patient Understands: Comment: Normal [facility] ED Patient Summaryon 023 ED Patient Summary [facility] ? Urgent Care [address] [place] [id number] PATIENT DISCHARGE INSTRUCTIONS Patient Information Name: BRYNN WALLACE Age: 22 Years Date of : 2000 Reason For Visit: Throat pain - Adult; Body aches; SORE THROAT, HEADACHE Arrival Time: 01/10/2023 13:26:17 Phone: Primary Care Physician: Leah Azar Attending Physician: Genesis Calvillo PA-C Comment: Patient Education With: Address: When: Leah Azar [address] [facility] [place] [address] Sore Throat A sore throat is pain, burning, irritation, or scratchiness in the throat. When you have a sore throat, you may feel pain or tenderness in your throat when you swallow or talk. Many things can cause a sore throat, including: ? An infection. ? Seasonal allergies. ? Dryness in the air. ? Irritants, such as smoke or pollution. ? Radiation treatment for cancer. ? Gastroesophageal reflux disease (GERD). ? A tumor. A sore throat is often the first sign of another sickness. It may happen with other symptoms, such as coughing, sneezing, fever, and swollen neck glands. Most sore throats go away without medical treatment. Follow these instructions at home: Medicines ? Take fljg-oai-lxruomd and prescription medicines only as told by your health care provider. ? Children often get sore throats. Do not give your child aspirin because of the association with Felipe's syndrome. ? Use throat sprays to soothe your throat as told by your health care provider. Managing pain To help with pain, try: ? Sipping warm liquids, such as broth, herbal tea, or warm water. ? Eating or drinking cold or frozen liquids, such as frozen ice pops. ? Gargling with a mixture of salt and water 3?4 times a day or as needed. To make salt water, completely dissolve ??1 tsp (3?6 g) of salt in 1 cup (237 mL) of warm water. ? Sucking on hard candy or throat lozenges. ? Putting a cool-mist humidifier in your bedroom at night to moisten the air. ? Sitting in the bathroom with the door closed for 5?10 minutes while you run hot water in the shower. General instructions ? Do not use any products that contain nicotine or tobacco. These products include cigarettes, chewing tobacco, and vaping devices, such as e-cigarettes. If you need help quitting, ask your health care provider. ? Rest as needed. ? Drink enough fluid to keep your urine pale yellow. ? Wash your hands often with soap and water for at least 20 seconds. If soap and water are not available, use hand hospital social worker. Contact a health care provider if: ? You have a fever for more than 2?3 days. ? You have symptoms that last for more than 2?3 days. ? Your throat does not get better within 7 days. ? You have a fever and your symptoms suddenly get worse. Get help right away if: ? You have difficulty breathing. ? You cannot swallow fluids, soft foods, or your saliva. ? You have increased swelling in your throat or neck. ? You have persistent nausea and vomiting. These symptoms may represent a serious problem that is an emergency. Do not wait to see if the symptoms will go away. Get medical help right away. Call your local emergency services (911 in the [place] Do not drive yourself to the hospital. Summary ? A sore throat is pain, burning, irritation, or scratchiness in the throat. Many things can cause a sore throat. ? Take oizu-ajs-ldcmhgz medicines only as told by your health care provider. ? Rest as needed. ? Drink enough fluid to keep your urine pale yellow. ? Contact a health care provider if your throat does not get better within 7 days. This information is not intended to replace advice given to you by your health care provider. Make sure you discuss any questions you have with your health care provider. Document Revised: 07/08/2021 Document Reviewed: 07/08/2021 [employer] Patient Education ? 2022 [employer] Viral Illness, Adult Viruses are tiny germs that can get into a person's body and cause illness. There are many different types of viruses, and they cause many types of illness. Viral illnesses can range from mild to severe. They can affect various parts of the body. Short-term conditions that are caused by a virus include colds and the flu (influenza). Long-term conditions that are caused by a virus include herpes, shingles, and HIV (human immunodeficiency virus) infection. A few viruses have been linked to certain cancers. What are the causes? Many types of viruses can cause illness. Viruses invade cells in your body, multiply, and cause the infected cells to work abnormally or . When these cells , they release more of the virus. When this happens, you develop symptoms of the illness, and the virus continues to spread to other cells. If the virus takes over the function of the cell, it can cause the cell to divide and grow ou (more content not included)... Normal [facility] SARS-CoV-2 (COVID-19) PCRon 01-10-2023 Internal Control Pass Normal [facility] Comment on above: Performed By: #### 3 [id number] #### [facility] (DEFAULT) [address] [place] [id number] SARS-CoV-2 (COVID-19) RNA HERBER+probe Ql (Unsp spec) Not detected Normal Not Detected [facility] Comment on above: Result Comment: Perf ormed by PCR methodology. Performed By: #### 3 [id number] #### [facility] (DEFAULT) [address] [place] [address] [id number] Strep Aon 01-10-2023 Strep procedure control Pass [facility] Comment on above: Performed By: #### 7 [id number] #### [facility] (DEFAULT) [address] [place] [address] 31555 Streptococcus A Negative Normal Negative [facility] Comment on above: Performed By: #### 2 [id number] #### [facility] (DEFAULT) [address] [place] [address] 61602 Progesterone LCon 12-14-2022 Progesterone LC 6.2 ng/mL Invalid Interpretation Code [facility] Comment on above: Result Comment: Foll icular phase 0.1 - 0.9 Luteal phase 1.8 - 23.9 Ovulation phase 0.1 - 12.0 First trimester 11.0 - 44.3 Second trimester 25.4 - 83.3 Third trimester 58.7 - 214.0 Postmenopausal 0.0 - 0.1 Performed At: [facility] [id number] Bibi Irwin PhD Ph:[phone] Performed By: #### 8 [id number] #### [facility] (DEFAULT) [address] [place] [address]1371 Provider Orderson 12-11-2022 Provider Orders [id number] Coding Summaryon 12-03-2022 Coding Summary HTMLBase 64 NdowvcfeALf0rSg+PGh lYWQ+BN5VDXQsA70csM UmfZ4nG5GAVEbAZdgmK YZMBUuLDwZzyqNkAG0n aXNjZXJu IC8+ZN4cOSGyYbgjcYO ne3O8nVZ0D49wyo4rOX cepCE1BNAsRqKyqoelt 0wtkYf7WUdpXxndSxDq GXDbjN22XZR0tP29Vs0 3kATsvZFfq3xjoLn1Nd HbAFPvWOA6kXatRCbqx 9BeFVZbL87tvVKok8R4 IGNvbGxhcHNlOyBlbXB 8kA7xGGthzqboc7tpzt wzPla7nb07kDIsf5Z1w UB5T5LlgwY0CFTksGLz FnmdiYQQrQ8azovxv9s oxhsoGwTiGZUfOZf7LA h5VCBlwGkvNiHiAS00X PQ8TCFbcnBfY0NmBVLb hAwoRrL2y0C1Gw8NI0V RTupdC1OAGXLUBSshkZ Q+LX98ic57P5HfVqfoZ yf7BOHbANN2fVP2rF2u GHQrCOfgz4N6tVS2O8M fruBhcu7pm0ntLIHeHX hkH43mkTGol9W6IFPao QU7BYRvtEqlXiPkfK54 Oyc+PWCviWqwg1TiDet nv7muj5pkpGh2SyaaNR ZuwiHpoOfbXHA0o1PwD t0zDQFlcGS8cKJ8qR5o JmChIaF5BUtpI277VzC bfSLhRgvvD28oF4AayL A+PNWzNrx7WAWdrBfoV A7qF6LjTKLhwaeuvOPv mYhxCY5pRBIlomucAAH kpU9rMAKgQ0b4SmKdIa A6EPiuN1BbGKBkksghR x56dY5kNmIlSqH7ZFoc I8KdsdY5AKFddARpYMx mXEP4T29vt9W8JQDyRI SeSLJ2pHB0nZ3dnUhlh jogbGVmdDsgdmVydGlj GBnqPFlbF181NHBdjHi nPkNvZGluZyBEYXRlOi AgMDgvMTEvMjAyMzwvd GQ+DBZoBWV2ySpbIZCd dWKrGCmjGj8ypHqhiWo pSB1yUJBwmnfuIFJulO 8pYBQfrDKxeIbgKL5mV VTybjnyn277GnQyYZT9 PBYloOVgL9EbwZ2sHkY sVEChZBSaM5RvtCTaMC wuE435XTloLyG8YIBok sMtP0PvEGOtjLjxUjC3 c7E4Rn2Ns2XmwrdqX0J svYVdSzUvOrcfEQj3D9 RkPjwvdHI+GT38YLViH I69KPt0WGB4wLdkGUhg MGUoE8WagG1qTdOxGGK kZGRkOyc+PHRhYmxlIH dpZHRoPScxMDAlJyBzd KzxQG4sFk9tJHMoYPIq oJkimHCzYuEjk9duSOJ cWJtyUX6rqXpkB5WwfB O5YJGtz7e8Lp91I52aH 3JvdXA+HKKfiLS8hPS9 xB7uJuDgLcU5CJtbV77 3WeMqvGGqDgcdj7xnh4 ochLd7BlE1MDUuzwJbf PkvTQA5r7CxFu78A67b IHdpZHRoPSIxNSUiIHZ elLxpke0ogV3sUr2+PG KjqGX0gNH5sU9qKbLfH cH5MHfwX482UfElzNYd Giopx4mcu2gdoDy6FgT oRSAznrQmuXrpJCS1m0 EaEs60W0RroGztc7KxJ om8kx86jXLlh0A0iIY5 P7BuJACezjckpOIkiGg cZD4rEAGhzaxyGTVacL 9iESUvF5v9ItSfDqL9L LzqH8OsquZ8GPFcnILt LRZfoFXQlD7vbwdns6n hhszbTbSnHGQtFZp8IS y2ULCtiTquWpKqWAO8F xR4MJJ6bAOzoP0pmSmx uoojaZ6vGef+CSJ9uDC vxLLROS0nCchexJV+PH HtIRF1vLupTDqzCMKda P8rDPUdQ6a0XjRxBwW3 STfoP2GbhbT8XKZcfOO uOQVmtUOCsX7fiebnf0 tspwxrJdOqPANsMRy6H Pg1JPGkqIbmLgPfDDH7 NiT7RZE4iWCqvF4ziGz yfblzeR6zJqs+QmlydG giHMR6SIx9C4AwGnc5C QJdiZudYQ9kaVBdLUfm Hk5qoMvzqWjePB0sXLV ljmjiz531QgJrw4fiMU AtpFVdRFvrSZS6M29cz 4B1IURjMYIsPAE7zDH3 nC4faMwnaezdvZXymFc gdmVydGljYWwtYWxpZ2 52RTFhbTooAyTcAMa2N 1KnNnh2NPHsyPadEO9l bFGgCYfwUd0edWowhLz gGE4uTQYrbcrmx029Jl Znk1twELGttBVdGKdkD RO9D95zg8L3LYThTFGn RZQ8fDD4hP0phUtduvq gbGVmdDsgdmVydGljYW bvEFkjD740APAdyFgoK tCqiGy1P3SfJhw3BOPp cCokGM2xoFHaYYktTm6 vpTcxqDfcPT3hXARqqs ogr764YaUbm5ppEXLjg MUxGEluTOQ6X90rx4N0 URLqFWQfVTT5kRS5fA7 hbGlnbjogbGVmdDsgdm OlwIxpBIsgTCdkN084L HRvcDsnPlBhdGllbnQg YEplZYe7N3DtLsyurYE +XS03AOWdCR10cALlhP Jjs7uwgGu2FvFqCQXxR SA1tXxmFKjtz0DeKYIo S87toZCxo5F7RYAerQl xoTSuQjZzcNA6hP5bXQ xlqltcu8kcmfjoAhbmx 4qqxg48xA82M35nNRaw ZHRoPSIzMCUiIHZhbGl pje8ddI9pXx0+PGNvbC N8xKH4sK8wHAFvDmY6C XluB589LcHlbOOjDuam k5ksa7qflBw8OaC0VET gdmAegSihOVQ1i7NjPb 79D14xHImjRKWvUERdV PHoTWKvjQrtsc8veY2f Ii8+HEXlfHA6eMU1kL9 oOtHvZpC9YRilQ508Dq YltTAaRdpcQ62hX8Nwf XA+VNZhXmo9JWXfmUdr WH3ymLCfXHlyAr9mZOD 0YbJgCoXuQJtrE7YkLT AopxmcyvhetCA5GGNlF HUqcI80Gh3qrLvcOXCc fKIVfG5uhygqx2ndfns zBiLsJRQrFMe2ZRj9KC FyfWqwMoRjSZY3QbT1M WJ2sAVwkH9laDnbrice mE3mZ2LkSNLaaftqDr8 2cF2kAgSnUrC9INzfCs c+QkFLRVIsIEFMRVhBT kRSQSBNSUNIRUxMRTwv dGQ+ZMYnUVX7jImtWYj bMGKnwU1fWEZjN6d5Fd BzOnM3RZwnA7WeALPut jpmOb05nD4kDdQnXwU0 OErbS4HkluQ9TIGeeIG bEXtmULY0Y43hq9N2BJ MsLYCtSWG1rPU3qP6lq GlnbjogbGVmdDsgdmVy eFtkJBdwBHhvZ925RWT ywDroVaFiMeO8WeOcKJ V4S3BzXgj5QEBaeYiiZ D1mdKNgRLefYj1vnIgs aMeqBT7xCIWzcqgfVKO nmP5fWMPjvRAamVeqCV 1dVVWcdnona950UuQjM DI3VEHhrLIzP4MrqE6x ZsDuSLCpCPDyG6AuhMX yTNnnU163PWqmYjW1WT FdmvYeU0TwGNNluIodC iX8g9I3Ax0bAKNMEUJq czwvdGQ+FGVqMPQ9oPi oZYmjACPruJ5xPVAeU0 d1NgMcOyA6XBunG4ExD XMyeugvEo35pK8bPsBc IcZ9TWbnN7UsbsD4PFN ufEBsKGorBCV1W09oj2 H9HMJjBXFeGSR2xTC6q N8hjYodzdgtsTRfbLsm ueOdtPxgMMatTBvfV41 6IHRvcDsnPkZFTUFMRT wvdGQ+WKPxETC6pTpcF LtaSPGwyV8zWCYzI0i6 CcShHpN6VGtuT4YiYSF utnupAa09yI8mDjWtDj L1PTtaD9BpilQ1XDWda LKyIRhxSTZ9V93zn3A8 OXEfSCPgESV9xIU2rK3 hbGlnbjogbGVmdDsgdm EguMkjUUciNPjiL560N HXwcDjeGl0BQF29PJ21 C1EiQdkafGZpwNZ+PHR hYmxlIHdpZHRoPScxMD HzUhNcmQscDJ0mPq4jY GVyLWNvbGxhcHNlOiBj j6uiWPDpNDywOI0qpMb hU0TyxDW5DFDfc1w1Wc 93Y74tU2OxnZW+PGNvb XW8nZV1xF8ySzFfGsZ2 EKqwD150EmAzkBNoAul ov2wae6mdgNm6OxFfWC OulqJqtIrfDVG3a7VzR r85M71cNEahQMOaLKSm DTYwELIemHbvwq1xiJ0 wIi8+MCLnjAU7pNE6lS 0vEnPcFcA3LIenA097J jBklEWtLvyfA01zH0Lb dXA+PFUpMos0HYSwzLp uEQ5mvLXzYKsnGu4zEN W5JcNzByZzKNogU0UsG IVbpyjfsglokFP7LQIw XFWptP51Ou5fjKapEh1 uTBKkLSU6UVRkdPRxT3 EtfT9bAiGzYNOjOPGcL 0WvaRUjEQqpB993SMrm RsL2CUZhnmSrB9RbZBW njSmhUuL9g4J4Pu0OfM wssFBdOV2fUsShERv1L 3NoAdt9IXKlqEopAL6p bWXsSHcmKx8xoEbqsUm cQW6jSKZligdok396Fn Rvr2zmZBIgyCIxMMhrV RD8X42yv8U8BOZqRWMv HIO1iPD9nZ9zjKevwnt gbGVmdDsgdmVydGljYW vzAAqbY678CKLlxQhiZ hATYfe2N3KvKgs3ECMf fXorCG4tiWQrYAgwOx0 xbCbnaSpzIR0kOSOqpm xib583GwXxy6urCTJgd NGsEDhxBRY4T31yf4X0 IOIjNYQkRUP0xJG5iC8 hbGlnbjogbGVmdDsgdm TkpMdpZPnxJJmdX362G PYpeKzhSs0FBmu5H7Ik Kjb3IHBbcZnyNF5fzBD qADqtWr6atLebuVgtBE 7kPTZwfwzvy758DqSgs 4wvYAOzhFZsNKbkRYH3 U72ar7O7SEGsTAYkSYM 0rPQ3rI8szEguhtuxaN VmdDsgdmVydGljYWwtY NjfL796GPZxyXosUxTe eWVyOjwvdGQ+ZD92wh6 8W8EzTxomUhq5KDGgWX R0jPL9bU2eUNKiRDpbt 7J5hBY9W7QfueYuxq1v b2x (more content not included)... [facility] US Pelvis Non-OB Completeon 11-29-2022 US Pelvis Non-OB Complete _History: PCOS Technique: Sonography of the pelvis was performed by transvaginal and transabdominal technique. Images were obtained and stored in a permanent archive. Comparison: None. RESULT: Uterus: Orientation: Anteverted Size: 7.1 x 4.5 x 3.5 cm Myometrium: Homogeneous echotexture Endometrial echocomplex: 0.4 cm; homogeneous. No mass. Cervix: Prominent vessels surrounding the cervix and lower uterine segment. Right ovary: Normal sonographic appearance Size: 3.6 x 1.8 x 2.5 cm, for a volume of 8 mL. Complex cyst: None Solid mass: None Follicles: Several normal follicles, largest 9 mm. Doppler evaluation: Arterial and venous flow with normal spectral waveforms. Left ovary: Normal sonographic appearance Size: 2.6 x 2.2 x 2.0 cm, for a volume of 6 mL. Complex cyst: None Solid mass: None Follicles: Several normal follicles, largest 8 mm. Doppler evaluation: Arterial and venous flow with normal spectral waveforms. Free fluid: Absent IMPRESSION: 1. Normal sonographic appearance of the ovaries. 2. Prominent adnexal and periureteral/perice rvical vessels suggesting pelvic congestion syndrome. Final Signed (Electronic Signature): Brian Burr MD 11/30/22 10:38 a Technologist: Geno TORRES [facility] Provider Orderson 11-26-2022 Provider Orders [id number] Summaryon 07-31-2023 Coding Summary HTMLBase 64 ItcwujpuDVj2dBb+PGh lYWQ+FN1MYTErS66lhS GmlB4vW3ZYEOdSFcijA VMKWBfCTwJfynLlGL2u aXNjZXJu IC8+GY7tOPFgWidddVS rm7B6yOT0A45ftu9zVN jcaWE1YCDuLmEsqoyru 0qqkJx1JQknLayoTlXv BAYotC97YZN9lG61Hc6 8lZFrqFSwz6wqrUj1Vb FtREPvZEG9pWxhEVlsr 5FeUHPwJ07fuCYgq6S8 IGNvbGxhcHNlOyBlbXB 8lL1gGVtgszrbt3evrb lkWxn5js56wSRzn2D9h ZH3N3LoctJ6QMGyxIIa IsnziHTTgZ6tednet6i roigbLkUaRJZiETt1EE c3ULGndJpsLvJmCZ28B HW2EVOdfkGiX9IvTDXj eYomQeL2v5Z8Lo8OZ5B WZkfbS8ECXBJNQPeslX Q+YY55pw77N3UqFtyuH kb3OODmCZQ0iJQ2rR0x ZGVzAIpon7M3vPR1E4F rcfPngn8au2htQYZbIP tzI60pvMFvf0X8WQTtw AR0MQXakQrkScWsbD73 Oyc+MQJwsSamo9AhUyw jb2zfc7cejPl8ZrpyHC MadbSpfJzjXIN0z4XeO p9cKIVdpQJ3bED0dC1r TaSiOjP4OMntJ671AoR bgXIbFmdtD58fC1AduF A+AWQeLhz0ZGKyrBxrM F8nN2NsNFZdfzuroBWp oWydOF9tUNIucfryOXK peM0cZKEbX5v3KxOtXu Z0KClpK9StHDEvenekL m02gX6gByPjTnP3UDho L5OjsoY3YMBxuCRpJSn pARK4A87pw9O8VJKkWD UqEXL7oRR9bR6nsKbwk jogbGVmdDsgdmVydGlj DMamRKakG819GEAgzNt nPkNvZGluZyBEYXRlOi AgMDcvMzEvMjAyMzwvd GQ+JONpXOD3mOglMVKj iZRqOKmiXi2qrUxahIw yWX3hXGVsjodwWMMkzN 3kJDUnsLYhpVmdKD4aH OLbwjgfb908RuJwMEJ0 VEEswQNpE6OgpZ1gLyG iWONiSCNvH1ZgrEPrTG owX551JIqbRyH9NUEuw lKgL7WbVJMsdRogZwM2 x3F6Oh3Ir9NtbsinX1P jnXHlFfYeVtleSLl7Q0 RkPjwvdHI+CK55KHLbB P83ZKc1LDI5vAtvZRnj GFKpK6BdyF9fHdUoKBL kZGRkOyc+PHRhYmxlIH dpZHRoPScxMDAlJyBzd RleGR9tFs3gLEEaVFXk pHnxpWTcAySnh6xaFJR gZWumFO8bcCxkE7LybY E2JKKyu8h9Ti56Z53iU 3JvdXA+NEHnfTE8uOB7 fJ9qKoCmZjS0WAyqJ91 9IiVgqASfXgizi3fpm6 ebmZt5XlT3WRVcvvAxc QorISI0w1ToMg17S74t IHdpZHRoPSIxNSUiIHZ ahXbivc8gyW0iVk8+PG CumYA6gEA3sR5wMzYoE sL4SGyvT741WiNsdTOb Qgsaq7syp7pxsEd3JqZ xINWeduIwrZkeZVV9e5 KuRv16C6FtpVgvx7ImN gx0lp08fJCbd8K9uTC4 M1XdFVTrvirldBRlsOi lIZ0bPCQscorvSJGjuZ 3iCUVlE3u7PhOgUhQ5E OfzX9SzrjH2AGUyfZAz TWIerJSHcY8sywssh9n abtovUwYtHKXzAGo3GZ z8DHWfwQhqGeNiQLU3U mY1QVW5fNIeeE0ywJfu bsnewQ2iYhn+QSB3sSW gwWKTHC6qAsuyxNQ+PH BtUVL8iNjxPKmgMCKuw E6gURJqW1c2BvMpBvL0 GQqoG1UfxuM8XALepWC zMWQqtRUOeX7kmwjpt8 nztzejEeFsRVOeLTy0A Sa2WMLdtHuiDuLwFXR7 KyQ2FHY2fATvyF9blSu imtrfnF5kKwf+QmlydG etPZV6CIj6C5CcBwf9Z OMknXqaGT3jeLGtZWyu Od2zeMkahGcdXR5gPGW gikjxo269TwItk1diYB VchDCoZGgtKYO0I71ly 6O9TWIqBIDbKTY1yKR5 nT7hlAgctlekkTKuiTu gdmVydGljYWwtYWxpZ2 19MYKdsKndMmDjAZh2A 7AgHxj7SUSqrZykZU0b jJQuCBlcHk4yxQmhoMq wKH8zBYAfoarkh582Qb Uux0eiVYNwmVLdXZdeA YV8U64cf9F4KNRpCQMy CJR5qAM1tA7ewSafunw gbGVmdDsgdmVydGljYW jbDYtsX192QSDstWewM vXagKs5C9YtTuj7VISe cDqlTR9geLEdRWifWc0 ywBjxnXyuEL0dFQRfkn xba111KwUuv6gvPBPdo ZEpDPkpGEU3G95kb9L0 MTJqDGNsZWY9rSS4eQ0 hbGlnbjogbGVmdDsgdm QjcDijOAjwDIrmK570F HRvcDsnPlBhdGllbnQg JEmaQMs9W6IlBgglnAK +RG40HNVtZU96yQPclN Jzi8jukGq2OhUwITWmJ QI6tRhwZVbse7AzSFBs Q59enCIro5Q5FOOugEn liKIaGbIpfIO8wS8hHL ullilmd7dclbfsPtzjy 0yqwi83dG65Y61nYAxn ZHRoPSIzMCUiIHZhbGl xix0goZ2eVu7+PGNvbC J9mBN0oS2jFZYyInO5F BsvN539YtUcpDGnAnyr t0olx4wrlFh8XsX8FZL jbcMwbMutFDF7w5SxNu 52B77wLIupUCGjLTNmH FJzXFYrlBhnna5gyX1l Ii8+DWLiwRS8nMF5nZ4 tXwZnShE7CMowG992Jk RmwPSkOszfS34hZ3Sxo XA+AUZmTwd2FWEnsMgt IX2lgMLxCLnnVs4gLZA 8IlIjBiMeJEhbF9LoGP GaqqjvrydenZA0OGRxR UZucJ47Ln9bwKhoTKQe jFOZoK8kdlgtr5jhbuy fYgLeDTEeKAb9ACc0ZO IwlEqlCyPfZKT3MoS7C OZ2gUBdwT0amPmgtnca aU6qZ6NxDPYasxnoCw0 4gN3hYuVoCvI1FGftGf c+QkFLRVIsIEFMRVhBT kRSQSBNSUNIRUxMRTwv dGQ+IOXxGXV7yYuqMPo bKTUzvB5oCZSnY3j0Ty FvBxY8AGyzE3QcFLEoo ddeNx05gN7lYkBfZvU9 SDkfL2LzfsK2CHWfdZW zESdqUJV9E63hy8C2QD LvOPGnFMY7wIG0kP2hc GlnbjogbGVmdDsgdmVy aEhfTAqgTDphS941OZG ntCpxGqHdVnZ6AnNgGF H3W2PrVnm2OUSutAehY F1ojPLnQWpyTn4amJib qQptSC1kXWArsmmwEOF izR1rNSFbwASvtXvoOA 6hWOPmndzjn145QrGcJ NO0VEEzoXDkV5ZycS8a BwDvOVVdGOXkH5LbxXQ iIJwuE397SRpoUcI6MS RelcHiK4EfZYWjdFkaZ vO1b4B1Qp6nIDHMSOVr czwvdGQ+RMPcFDM1eWp oCJmvHYTfxN9bYUNwF9 o4EaNnAzU5UIggA9TtP WSugcdgVt61qX4yYlHi JeU3CRoqZ5MwmcR0XYQ azEZtSCudHMS2S63zd9 M6UNEtRHBiCMZ1mQN9k I1pbGzpnwkymWKbkEkv zuAcuHtnIGxrZTfwF30 6IHRvcDsnPkZFTUFMRT wvdGQ+KMQwELF4pIlzF JvmAUPuzM1iWDLmI5i9 XpWgZfF4AQiyQ7TcQON pudfaWr27fX1gQgNjFk E8UOhvI0QytmQ2DMJfj AVrBEqqFKS2B70ue5C9 RJOePWMcJCU6oAF1uY4 hbGlnbjogbGVmdDsgdm HawPuuJSukDQkdJ310Q YYxhCztOw6WLN25GI21 Q0LzNqjmiLFvaQX+PHR hYmxlIHdpZHRoPScxMD SsJhRnyMqsUU4oIl2pQ GVyLWNvbGxhcHNlOiBj x3giJFWdOBdyAL4dtBy yW8XawTB6LMDor0p9Yz 47R67zW9SkoZE+PGNvb RI3kPI7lS0uKfDcYdO7 XTaqD539EfOjuTKrEzt wp9qfy8wibIm4DwUyEP OjvwJrnChtQTL9l1HkC x51V02lFSafYWSzNMKw BSJzKGUzjLnbki7lwA2 wIi8+LMGiwFY2sOH7sA 8mGvShXfD7IZyyW594I aOmiVHtNngoW23eC5Jd dXA+RHGfIdz0WCBthEx iLD0vnEKuKGydTh5hZZ U5FpXbXmQtNYpdW9ZvS IVtnadiwepvyZQ1OXSk WIVxnK36Pf9rcCmqGi1 wTJHqSMC6IAMlpWJbF2 DzrA4uGsDzTRKvMGEfH 0SyjMMoCTgvL250KNeq OhR3ONCfxlKzM2DuUGZ ouAepCgH5k4A5Ur7OiB zpjWHuNB8pUgStQZj1V 0DqHxi7YIZsnZywWH7a yEHbDMrfIz8bsSzleAa aIL7sGVDnebntn886Mn Iux9myUYOysEXnAGhtY CV6B64uv1T7JVPqUWBs SNJ1zUY8nD6tkBssilp gbGVmdDsgdmVydGljYW qlJJvtQ611AWIbnJieU iRWBjo2R7ZfQtt8GFOh rLtqTI0hmJJbBGpnHb6 xwNdglNmrKP2lRSCvfv yhc907TdCjr3drJRAsl TIzNWkbUMP8H29et3V6 JEJeJAGfZBV9tQK9vO1 hbGlnbjogbGVmdDsgdm KrzUfuOQyoXXfrY583M QEfhDibBl7TXiz6I3Oi Svo9OYJheNxaHY0fyJO cGTnvMt0izZaywYxaYC 8nUFBspbnxq531IfNtp 3dyYUVyrOUpRDsjYYY9 J19qx7W3IULeFYXoTSJ 6gBJ6wM4jpKzmdqnixI VmdDsgdmVydGljYWwtY VcaG851JZYjaCxnYbCe eWVyOjwvdGQ+EL20br9 4C6TkBgoxBlr5VPEtSR E0eAT0vF4uJXMyQLtfs 7E8tAD9B4LklhXgjj6d b2x (more content not included)... Normal [facility] Dehydroepiandrosterone (DHEA ) LCon 11-20-2022 Dehydroepiandrosterone (DHEA) LC 340 ng/dL Invalid Interpretation Code 31-701 [facility] Comment on above: Result Comment: This test was developed and its performance characteristics determined by [facility]. It has not been cleared or approved by the Food and Drug Administration. Performed At: [address] [id number] Morris Nayak MD Ph:[phone] Performed By: #### 7 [id number], [id number], [id number] #### [facility] (DEFAULT) [address] [place] [address] Dehydroepiandrosterone Sulfa te LCon 11-18-2022 DHEA-Sulfate LC 612.0 ug/dL High 110.0-431.7 [facility] Comment on above: Result Comment: Perf ormed At: [address] [id number] Bibi Irwin PhD Ph:[phone] Performed By: #### 2 [id number], [id number], [id number] #### [facility] (DEFAULT) [address] [place] [address] FSH and LH LCon 11-18-2022 FSH LC 1.9 mIU/mL Invalid Interpretation Code [facility] Comment on above: Result Comment: Adul t Female: Follicular phase 3.5 - 12.5 Ovulation phase 4.7 - 21.5 Luteal phase 1.7 - 7.7 Postmenopausal 25.8 - 134.8 Performed At: [address] [id number] Bibi Irwin PhD Ph:[phone] Performed By: #### 5 [id number], [id number], [id number] #### [facility] (DEFAULT) [address] [place] [address] LH LC 1.9 mIU/mL Invalid Interpretation Code [facility] Comment on above: Result Comment: Adul t Female: Follicular phase 2.4 - 12.6 Ovulation phase 14.0 - 95.6 Luteal phase 1.0 - 11.4 Postmenopausal 7.7 - 58.5 Performed By: #### 2 [id number], [id number], [id number] #### [facility] (DEFAULT) [address] [place] [address] .Auto Diff 11-17-2022 Auto [place] % 5 % Normal -12 [facility] Comment on above: Performed By: #### 9 [id number], [id number], [id number] #### [facility] (DEFAULT) [address] [place] [address] Baso Abs# 0.1 x10 Normal 0.0-0.2 [facility] Comment on above: Performed By: #### 3 [id number], [id number], [id number] #### [facility] (DEFAULT) [address] [place] [address] Basophils/100 WBC (Bld) 1.0 % Normal 0.2-2.0 [facility] Comment on above: Performed By: #### 0 [id number], [id number], [id number] #### [facility] (DEFAULT) [address] [place] [address] Eos Abs# 0.1 x10 Normal 0.0-0.4 [facility] Comment on above: Performed By: #### 7 [id number], [id number], [id number] #### [facility] (DEFAULT) [address] [place] [address] Eosinophils/100 WBC (Bld) 0.7 % Low 0.9-4.0 [facility] Comment on above: Performed By: #### 0 [id number], [id number], [id number] #### [facility] (DEFAULT) [address] [place] [address] Lymph Abs# 1.9 x10 Normal 1.3-2.9 [facility] Comment on above: Performed By: #### 5 [id number], [id number], [id number] #### [facility] (DEFAULT) [address] [place] [address] Lymphocytes/100 WBC (Bld) 19 % Normal 14-48 [facility] Comment on above: Performed By: #### 2 [id number], [id number], [id number] #### [facility] (DEFAULT) [address] [place] [address] [place] Abs# 0.5 x10 Normal 0.0-0.8 [facility] Comment on above: Performed By: #### 5 [id number], [id number], [id number] #### [facility] (DEFAULT) [address] [place] [address] Neut Abs# 7.7 x10 Normal 1.5-9.2 [facility] Comment on above: Performed By: #### 5 [id number], [id number], [id number] #### [facility] (DEFAULT) [address] [place] [address] Neutrophils/100 WBC (Bld) 75 % Normal 44-88 [facility] Comment on above: Performed By: #### 9 [id number], [id number], [id number] #### [facility] (DEFAULT) [address] [place] [address] CBC w/ Auto Diffon 3 Erythrocyte distribution width (RBC) [Ratio] 12.9 % Normal 11.5-15.0 [facility] Comment on above: Performed By: #### 5 [id number], [id number], [id number] #### [facility] (DEFAULT) [address] [place] [address] Hematocrit (Bld) [Volume fraction] 41.8 % High 33.7-40.4 [facility] Comment on above: Performed By: #### 0 [id number], [id number], [id number] #### [facility] (DEFAULT) [address] [place] [address] 99934 Hemoglobin (Bld) [Mass/Vol] 14.0 g/dL Normal 11.3-15.9 [facility] Comment on above: Performed By: #### 0 [id number], [id number], [id number] #### [facility] (DEFAULT) [address] [place] [address] 91169 Man Diff? Auto Invalid Interpretation Code [facility] Comment on above: Performed By: #### 4 [id number], [id number], [id number] #### [facility] (DEFAULT) [address] [place] [address] 80647 MCH (RBC) [Entitic mass] 29 pg Normal 24-34 [facility] Comment on above: Performed By: #### 5 [id number], [id number], [id number] #### [facility] (DEFAULT) [address] [place] [address] 97651 MCHC (RBC) [Mass/Vol] 34 g/dL Normal 26-37 [facility] Comment on above: Performed By: #### 8 [id number], [id number], [id number] #### [facility] (DEFAULT) [address] [place] [address] 55561 MCV (RBC) [Entitic vol] 87 fL Normal 81-100 [facility] Comment on above: Performed By: #### 9 [id number], [id number], [id number] #### [facility] (DEFAULT) [address] [place] [address] 33400 Platelet 280 x10 Normal 138-427 [facility] Comment on above: Performed By: #### 6 [id number], [id number], [id number] #### [facility] (DEFAULT) [address] [place] [address] 14984 Platelet mean volume (Bld) [Entitic vol] 8.0 fL Normal 6.3-10.2 [facility] Comment on above: Performed By: #### 8 [id number], [id number], [id number] #### [facility] (DEFAULT) [address] [place] [address] 84934 RBC 4.83 x10 Normal 3.70-5.30 [facility] Comment on above: Performed By: #### 8 [id number], [id number], [id number] #### [facility] (DEFAULT) [address] [place] [address] 99689 WBC 10.3 x10 Normal 3.5-10.5 [facility] Comment on above: Performed By: #### 0 [id number], [id number], [id number] #### [facility] (DEFAULT) [address] [place] [address] 81391 Free T4on 11-17-2022 Free T4 [Mass/Vol] 1.06 ng/dL Normal 0.61-1.12 [facility] Comment on above: Performed By: #### 0 [id number], [id number], [id number] #### [facility] (DEFAULT) [address] [place] [address] HgbA1c Standardon 11-17-2022 .Hb 15.7 Invalid Interpretation Code [facility] Comment on above: Performed By: #### 1 [id number], [id number], [id number] #### [facility] (DEFAULT) [address] [place] [address] 70617 .Hgb A1c 0.55 g/dL Invalid Interpretation Code [facility] Comment on above: Performed By: #### 2 [id number], [id number], [id number] #### [facility] (DEFAULT) [address] [place] [address] 44481 Glucose [Mass/Vol] 105 mg/dL Invalid Interpretation Code [facility] Comment on above: Performed By: #### 5 [id number], [id number], [id number] #### [facility] (DEFAULT) [address] [place] [address] 79787 HbA1c (Bld) [Mass fraction] 5.3 % Normal 4.6-6.2 [facility] Comment on above: Performed By: #### 3 [id number], [id number], [id number] #### [facility] (DEFAULT) [address] [place] [address] 05114 Provider Orderson 11-17-2022 Provider Orders [id number] 07#1.00OTGTIFF Normal [facility] TSHon 11-17-2022 TSH Qn 1.26 m[IU]/L Normal 0.45-5.33 [facility] Comment on above: Performed By: #### 5 [id number], [id number], [id number] #### [facility] (DEFAULT) [address] [place] [address] 19596 hCG Quantitativeon hCG Quantitative <0.6 Normal 0.0-0.6 [facility] Comment on above: Result Comment: Post -Menopausal Reference Range is: 0.1-11.6 mIU/mL Performed By: #### 8 [id number], [id number], [id number] #### [facility] (DEFAULT) [address] [place] [address]8616 Lab - Toxicology Resultson 0 10-20-2022 Lab - Toxicology Results [id number] 1#1.00OTGTIFF [facility] QuantiFERON-TB Gold Pluson 0 10-20-2022 QuantiFERON-TB Gold Plus Negative Invalid Interpretation Code Negative [facility] Comment on above: Result Comment: No r esponse to M tuberculosis antigens detected. Infection with M tuberculosis is unlikely, but high risk individuals should be considered for additional testing (ATS/IDSA/CDC Clinical Practice Guidelines, 2017). The reference range is an Antigen minus Nil result of <0.35 IU/mL. Chemiluminescence immunoassay methodology Performed At: [address] [id number] Bibi Irwin PhD Ph:[phone] Performed By: #### 6 [id number] #### [facility] (DEFAULT) [address] [place] [address] QuantiFERON Incubation Incubation performed. Invalid Interpretation Code [facility] Comment on above: Result Comment: Perf ormed At: [address] [id number] Bibi Irwin PhD Ph:[phone] Performed By: #### 9 [id number] #### [facility] (DEFAULT) [address] [place] [address] 58548 HBSab Qnt LCon 10-19-2022 Hep B Surf Ab Quant LC <3.1 Low Immunity>9.9 [facility] Comment on above: Result Comment: Stat us of Immunity Anti-HBs Level Inconsistent with Immunity 0.0 - 9.9 Consistent with Immunity >9.9 Performed At: [address] [id number] Bibi Irwin PhD Ph:[phone] Performed By: #### 8 [id number] #### [facility] (DEFAULT) [address] [place] [address]678 Measles/Mumps/Rubella Immuni ty LCon 10-19-2022 Mumps Abs, IgG LC 132.0 AU/mL Invalid Interpretation Code Immune >10.9 [facility] Comment on above: Result Comment: Nega tive <9.0 Equivocal 9.0 - 10.9 Positive >10.9 A positive result generally indicates past exposure to Mumps virus or previous vaccination. Performed At: [facility] [address] [place] [id number] Bibi Irwin PhD Ph:[phone] Performed By: #### 4 [id number] #### [facility] (DEFAULT) [address] [place] [address] 28877 Rubella Antibodies, IgG LC 1.78 index Invalid Interpretation Code Immune >0.99 [facility] Comment on above: Result Comment: Non- immune <0.90 Equivocal 0.90 - 0.99 Immune >0.99 Performed By: #### 0 [id number] #### [facility] (DEFAULT) [address] [place] [address] Rubeola Ab, IgG, EIA LC >300.0 Invalid Interpretation Code Immune >16.4 [facility] Comment on above: Result Comment: Nega tive <13.5 Equivocal 13.5 - 16.4 Positive >16.4 Presence of antibodies to Rubeola is presumptive evidence of immunity except when acute infection is suspected. Performed By: #### 4 [id number] #### [facility] (DEFAULT) [address] [place] [address] Nicotine Metabolite, Urine L Con 10-19-2022 Cotinine LC Negative Invalid Interpretation Code [id number] [facility] Comment on above: Result Comment: Perf ormed At: [facility] [address] [place], [place] [id number] Rachel Garcia PhD Ph:[phone] Performed By: #### 5 [id number], [id number], [id number] #### [facility] (DEFAULT) [address] [place] [address] US Pelvic Complete w/Transva ginalon 06-21-2022 US Pelvic Complete w/Transvaginal Findings: Anteverted uterus measures 8.2 x 5.2 x 3.9 cm. Endometrium measures 2 mm. Uterus normal in size, shape, and echogenicity. Right ovary measures 4.1 x 1.8 x 2.0 Cm and is normal in size, shape, echogenicity, and color flow. Allograft left ovary measures 5.8 x 5.1 x 4.8 cm. Within the left ovary is a complex cyst comprised of low level echoes. A thin eccentric septation separates 2 compartments measuring 4.2 x 3.7 x 2.7 cm, and 3.5 x 3.8 x 1.6 cm, respectively. No free fluid. No adnexal masses. IMPRESSION: Septated left hemorrhagic cyst, versus 2 adjacent hemorrhagic cysts comprised of 2 components measuring 4.7 x 3.7 x 2.7 cm, and 3.5 x 3.8 x 1.6 cm, respectively. Report reported and signed by Pepito Martins on 06/22/2022 1125 Normal [facility] Nutrition Program Instructor XR Abdomen Single View (KUB) *on 06-18-2022 XR Abdomen Single View (KUB)* COMPARISON: NONE. FINDINGS: The bowel gas pattern is unremarkable. There are no dilated loops of bowel. There are no acute osseous changes. IMPRESSION: There are no acute changes. Report reported and signed by ALONSO PADRON on 06/19/2022 1201 Normal [facility] CBC AUTO DIFFon 12-12-2020 BASO # 0.1 103/ul Normal 0.0-0.1 [facility] Comment on above: Performed By: #### C BC #### [facility] [address] [place], [place] [id number] Jatin Tracey Basophils/100 WBC (Bld) 0.7 % Normal 0.2-2.0 [facility] Comment on above: Performed By: #### C BC #### [facility] [address] [place], [place] [address] Jatin Tracey EO # 0.4 103/ul Normal 0.0-0.7 [facility] Comment on above: Performed By: #### C BC #### [facility] [address] [place], [place] [address] Jatin Tracey Eosinophils/100 WBC (Bld) 3.4 % Normal 0.9-7.0 [facility] Comment on above: Performed By: #### C BC #### [facility] [address] [place], [place] [address] Jatin Tracey Erythrocyte distribution width (RBC) [Ratio] 11.8 % Normal 11.0-15.0 [facility] Comment on above: Performed By: #### C BC #### [facility] [address] [place], [place] [address] Jatin Tracey Hematocrit (Bld) [Volume fraction] 42.6 % Normal 36.0-48.0 [facility] Comment on above: Performed By: #### C BC #### [facility] [address] [place], [place] [address] Jatin Tracey Hemoglobin (Bld) [Mass/Vol] 14.3 g/dL Normal 12.0-16.0 [facility] Comment on above: Performed By: #### C BC #### [facility] [address] [place], [place] [address] Jatin Tracey IG # 0.03 10e3/ul Normal 0.00-0.03 [facility] Comment on above: Performed By: #### C BC #### [facility] [address] [address] Jatin Tracey IG % 0.3 % Normal 0.0-0.5 [facility] Comment on above: Performed By: #### C BC #### [facility] [address] [place] [address] Jatin Tracey LYMPH # 2.2 103/ul Normal 1.2-3.8 [facility] Comment on above: Performed By: #### C BC #### [facility] [address] [place] [address] Jatin Tracey Lymphocytes/100 WBC (Bld) 20.7 % Normal 20.5-60.0 [facility] Comment on above: Performed By: #### C BC #### [facility] [address] [place], [place] [address] Jatin Tracey MANUAL DIFF REQ NO Normal [facility] Comment on above: Performed By: #### C BC #### [facility] [address] [place], [place] [address] Jatin Tracey MCH (RBC) [Entitic mass] 30.4 pg Normal 26.7-34.0 [facility] Comment on above: Performed By: #### C BC #### [facility] [address] [place], [place] [address] Jatin Tracey MCHC (RBC) [Mass/Vol] 33.6 g/dL Normal 29.9-35.2 [facility] Comment on above: Performed By: #### C BC #### [facility] [address] [place], [place] [address] Jatin Tracey MCV (RBC) [Entitic vol] 90.4 fL Normal 81.0-99.0 [facility] Comment on above: Performed By: #### C BC #### [facility] [address] [place], [place] [address] Jatin Tracey MONO # 0.6 103/ul Normal 0.3-0.8 [facility] Comment on above: Performed By: #### C BC #### [facility] [address] [id number] Jatin Tracey Monocytes/100 WBC (Bld) 6.0 % Normal 1.7-12.0 [facility] Comment on above: Performed By: #### C BC #### [facility] [address] [place], [place] [address] Jatin Tracey NEUT # 7.3 103/ul Critically high 1.4-6.5 [facility] Comment on above: Performed By: #### C BC #### [facility] [address] [place], [place] [address] Jatin Tracey Neutrophils/100 WBC (Bld) 68.9 % Normal 43.0-75.0 [facility] Comment on above: Performed By: #### C BC #### [facility] [address] [place], [place] [address] Jatin Tracey Platelet mean volume (Bld) [Entitic vol] 9.7 fL Normal 9.5-13.5 [facility] Comment on above: Performed By: #### C BC #### [facility] [address] [place], [place] [address] Jatin Tracey PLT 252 103/ul Normal 150-450 [facility] Comment on above: Performed By: #### C BC #### [facility] [address] [place], [place] [address] Jatin Tracey RBC 4.71 106/ul Normal 4.20-5.40 [facility] Comment on above: Performed By: #### C BC #### [facility] [address] [place], [place] [address] Jatin Tracey WBC 10.6 103/ul Normal 4.0-11.0 [facility] Comment on above: Performed By: #### C BC #### [facility] [address] [place], [place] [address] Jatin Tracey CT ABD/PELV W CONon 12-13-[address] ABD/PELV W CON EXAMINATION: CT ABD/PELV W CON HISTORY: ABDOMINAL DISTENSION (GASEOUS) COMPARISON: CT abdomen and pelvis examination dated 07/31/2013. TECHNIQUE: Axial CT images through the abdomen and pelvis were obtained after the intravenous administration of 100 mL Omnipaque 300 contrast. Coronal and sagittal reformats were obtained. Dose reduction techniques were achieved by using automated exposure control and/or adjustment of mA and/or kV according to patient size and/or use of iterative reconstruction technique. FINDINGS: The visualized portions of the lung bases are clear. Abdomen: The liver and spleen enhance homogeneously without focal lesion. There is no intra or extrahepatic biliary duct dilatation. The gallbladder is unremarkable. The pancreas, adrenal glands, kidneys, and bowel loops, including the appendix, are unremarkable. There is no mesenteric or retroperitoneal lymphadenopathy. There is a small fat-containing umbilical hernia. Pelvis: The bladder and rectum are unremarkable. There is no iliac or inguinal lymphadenopathy. The uterus is present. The ovaries appear within normal limits by CT. Bone windows show no aggressive osseous lesions. IMPRESSION: 1. No evidence of bowel obstruction. 2. Normal appendix. Electronically authenticated by: Sabiha RUSHING Date: 2020-12-12 04:08 Normal [facility] PREG HCG QUALon 12-12-2020 , QUAL Negative Normal NEGATIVE [facility] Comment on above: Performed By: #### P REG #### [facility] [address] [place] [address] Jatin Webb PROF 14(COMP METB)on 021 Albumin [Mass/Vol] 3.9 g/dL Normal 3.5-5.0 [facility] Comment on above: Performed By: #### C MP #### [facility] [address] [place], [place] [address] Jatin Webb Albumin/Globulin [Mass ratio] 1.1 {ratio} Normal [facility] Comment on above: Performed By: #### C MP #### [facility] [address] [place], [place] [address] Jatin Webb ALP [Catalytic activity/Vol] 93 U/L Normal 38-126 [facility] Comment on above: Performed By: #### C MP #### [facility] [address] [phone] Jatin Tracey ALT [Catalytic activity/Vol] 16 U/L Normal 9-52 [facility] Comment on above: Performed By: #### C MP #### [facility] [address] [phone] Jatin Tracey Anion gap [Moles/Vol] 17.1 mmol/L Normal [facility] Comment on above: Performed By: #### C MP #### [facility] [address] [address] Jatin Tracey AST [Catalytic activity/Vol] 3 U/L Critically low 14-36 [facility] Comment on above: Performed By: #### C MP #### [facility] [address] [place] [address] Jatin Tracey Bilirubin [Mass/Vol] 0.3 mg/dL Normal 0.2-1.3 [facility] Comment on above: Performed By: #### C MP #### [facility] [address] [place] [address] Jatin Tracey Calcium [Mass/Vol] 8.9 mg/dL Normal 8.4-10.2 [facility] Comment on above: Performed By: #### C MP #### [facility] [address] [place] [address] Jatin Tracey Chloride [Moles/Vol] 106 mmol/L Normal 98-107 [facility] Comment on above: Performed By: #### C MP #### [facility] [address] [phone] Jatin Tracey CO2 [Moles/Vol] 23.0 mmol/L Normal 22.0-30.0 [facility] Comment on above: Performed By: #### C MP #### [facility] [address] [place], [place] [address] Jatin Tracey Creatinine [Mass/Vol] 0.76 mg/dL Normal 0.52-1.04 [facility] Comment on above: Performed By: #### C MP #### [facility] [address] [place], [place] [address] Jatin Tracey EGFR-AF EGYPTIAN >60 Normal >=60 [facility] [place] [facility] Comment on above: Performed By: #### C MP #### [facility] [address] [place], [place] [address] Jatin Tracey EGFR-NON AF EGYPTIAN >60 Normal >=60 [facility] Comment on above: Performed By: #### C MP #### [facility] [address] [place], [place] [address] Jatin Tracey Globulin (S) [Mass/Vol] 3.7 g/dL Normal T [facility] Comment on above: Performed By: #### C MP #### [facility] [address] [phone] Jatin Tracey Glucose [Mass/Vol] 96 mg/dL Normal 74-106 [facility] Comment on above: Performed By: #### C MP #### [facility] [address] [place], [place] [address] Jatin Tracey Potassium [Moles/Vol] 4.1 mmol/L Normal 3.4-5.0 [facility] Comment on above: Performed By: #### C MP #### [facility] [address] [phone] Jatin Tracey Protein [Mass/Vol] 7.6 g/dL Normal 6.1-8.2 [facility] Comment on above: Performed By: #### C MP #### [facility] [address] [place], [place] [address] Jatin Tracey Sodium [Moles/Vol] 142 mmol/L Normal 137-145 [facility] Comment on above: Performed By: #### C MP #### [facility] [address] [place], [place] [address] Jatin Tracey Urea nitrogen [Mass/Vol] 14.0 mg/dL Normal 6.4-19.3 [facility] Comment on above: Performed By: #### C MP #### [facility] [address] [place], [place] [address] Jatin Tracey Urea nitrogen/Creatinine [Mass ratio] 18.4 mg/mg Normal [facility] Comment on above: Performed By: #### C MP #### [facility] [address] [place], [place] [address] Jatin Webb PROTIMEon 12-12-2020 INR Coag (PPP) [Relative time] 1.00 {INR} Normal [facility] Comment on above: Performed By: #### P TT, PT #### [facility] [address] [phone] Jatin Webb INR GUIDELINES SEE BELOW Normal [facility] Comment on above: Result Comment: MAHESH RED INR: 2.0 - 3.0 CONDITIONS NOT LISTED BELOW 2.5 - 3.5 FOR PROSTHETIC HEART VALVE REPLACEMENT 2.5 - 3.5 RECURRENT THROMBOSIS Performed By: #### P TT, PT #### [facility] [address] [place] [address] Jatin Webb PT Coag (PPP) [Time] 10.8 s Normal 9.0-11.6 [facility] Comment on above: Performed By: #### P TT, PT #### [facility] [address] [id number] Jatin Webb PTTon 12-12-2020 aPTT Coag (Bld) [Time] 26.2 s Normal 22.3-36.2 [facility] Comment on above: Performed By: #### P TT, PT #### [facility] [address] [place], [place] [address] Jatin Webb XR CHEST 1 Von 12-12-2020 XR CHEST 1 V EXAM: XR CHEST 1 V HISTORY: Chest pain left-sided rib pain COMPARISON: None. TECHNIQUE: Single frontal view chest x-ray FINDINGS: No lobar consolidation, large effusions, pneumothorax, or discrete acute bony abnormality. Cardiac size unremarkable. IMPRESSION: No radiographic evidence for acute chest abnormality. Electronically authenticated by: ODALIS BRICENO Date: 2020-12-12 03:25 Normal [facility] Encounters Encounter Date Encounter Type Care Provider Facility Start: 10-06-2023 End: 10-06-2023 ambulatory WALDO CAMP Facility:[facility] Bj barber Start: 09-29-2023 End: 09-29-2023 ambulatory MARY LAW Not Available Start: 08-02-2023 End: 08-02-2023 ambulatory MARY CORTEZTRICK Not Available Start: 04-22-2023 End: 04-22-2023 ambulatory Leah Azar [facility] Start: 04-13-2023 End: 04-13-2023 ambulatory MARY CORTEZTRICK Not Available Start: 01-10-2023 End: 01-10-2023 ambulatory Leah Azar [facility] Start: 12-11-2022 ambulatory Leah Azar Facility:[facility] Start: 11-29-2022 End: 11-29-2022 ambulatory Leah Azar [facility] Start: 11-17-2022 End: 11-17-2022 ambulatory WALDO Nish CAMP [facility] Start: 10-18-2022 End: 10-18-2022 ambulatory Leah Azar [facility] Start: 12-12-2020 End: 12-12-[address] BRANDON LE Facility: Payers Date Payer Category Payer Unknown [id number] 2022 Unknown [id number] 2022 Unknown 2001 Unknown [id number] 2.16.84 [id number] 2001 Unknown [id number] 2.16.84 [id number] 2001 Unknown [id number] 2.16.84 [id number] 2001 Unknown [id number] 2.16.840 [id number] 2001 Unknown [id number] 2.16.8 [id number] 2001 Unknown [id number] 2.16.8 [id number] 2001 Unknown [id number] 2.16.8 [id number] 2001 Unknown [id number] 2.16.8 [id number] 2001 Unknown [id number] 2.16.8 [id number] 1959 Unknown [id number] 1959 Unknown [id number] Clinical Note 01-10-2023 Note Date & Type Note Facility 01-10-2023 Note Patient Education Ma terials Follows:Disease Sore Throat A sore throat is pain, burning, irritation, or scratchiness in the throat. When you have a sore throat, you may feel pain or tenderness in your throat when you swallow or talk. Many things can cause a sore throat, including: ? An infection. ? Seasonal allergies. ? Dryness in the air. ? Irritants, such as smoke or pollution. ? Radiation treatment for cancer. ? Gastroesophageal reflux disease (GERD). ? A tumor. A sore throat is often the first sign of another sickness. It may happen with other symptoms, such as coughing, sneezing, fever, and swollen neck glands. Most sore throats go away without medical treatment. Follow these instructions at home: Medicines ? Take yxot-wuh-kftmvtc and prescription medicines only as told by your health care provider. ? Children often get sore throats. Do not give your child aspirin because of the association with Felipe's syndrome. ? Use throat sprays to soothe your throat as told by your health care provider. Managing pain To help with pain, try: ? Sipping warm liquids, such as broth, herbal tea, or warm water. ? Eating or drinking cold or frozen liquids, such as frozen ice pops. ? Gargling with a mixture of salt and water 3?4 times a day or as needed. To make salt water, completely dissolve ??1 tsp (3?6 g) of salt in 1 cup (237 mL) of warm water. ? Sucking on hard candy or throat lozenges. ? Putting a cool-mist humidifier in your bedroom at night to moisten the air. ? Sitting in the bathroom with the door closed for 5?10 minutes while you run hot water in the shower. General instructions ? Do not use any products that contain nicotine or tobacco. These products include cigarettes, chewing tobacco, and vaping devices, such as e-cigarettes. If you need help quitting, ask your health care provider. ? Rest as needed. ? Drink enough fluid to keep your urine pale yellow. ? Wash your hands often with soap and water for at least 20 seconds. If soap and water are not available, use hand hospital social worker. Contact a health care provider if: ? You have a fever for more than 2?3 days. ? You have symptoms that last for more than 2?3 days. ? Your throat does not get better within 7 days. ? You have a fever and your symptoms suddenly get worse. Get help right away if: ? You have difficulty breathing. ? You cannot swallow fluids, soft foods, or your saliva. ? You have increased swelling in your throat or neck. ? You have persistent nausea and vomiting. These symptoms may represent a serious problem that is an emergency. Do not wait to see if the symptoms will go away. Get medical help right away. Call your local emergency services (911 in the [place] Do not drive yourself to the hospital. Summary ? A sore throat is pain, burning, irritation, or scratchiness in the throat. Many things can cause a sore throat. ? Take ooeh-ehd-yqbiega medicines only as told by your health care provider. ? Rest as needed. ? Drink enough fluid to keep your urine pale yellow. ? Contact a health care provider if your throat does not get better within 7 days. This information is not intended to replace advice given to you by your health care provider. Make sure you discuss any questions you have with your health care provider. Document Revised: 07/08/2021 Document Reviewed: 07/08/2021 [employer] Patient Education ? 2022 [employer] Viral Illness, Adult Viruses are tiny germs that can get into a person's body and cause illness. There are many different types of viruses, and they cause many types of illness. Viral illnesses can range from mild to severe. They can affect various parts of the body. Short-term conditions that are caused by a virus include colds and the flu (influenza). Long-term conditions that are caused by a virus include herpes, shingles, and HIV (human immunodeficiency virus) infection. A few viruses have been linked to certain cancers. What are the causes? Many types of viruses can cause illness. Viruses invade cells in your body, multiply, and cause the infected cells to work abnormally or . When these cells , they release more of the virus. When this happens, you develop symptoms of the illness, and the virus continues to spread to other cells. If the virus takes over the function of the cell, it can cause the cell to divide and grow out of control. This happens when a virus causes cancer. Different viruses get into the body in different ways. You can get a virus by: ? Swallowing food or water that has come in contact with the virus (is contaminated). ? Breathing in droplets that have been coughed or sneezed into the air by an infected person. ? Touching a surface that has been contaminated with the virus and then touching your eyes, nose, or mouth. ? Being bitten by an insect or animal that carries the virus. ? Having sexual contact with a person who is (more content not included)... [facility] Summary Purpose Family History No Family History Records FoundNo Family History Records FoundNo Family History Records FoundNo Family History Records Found Advance Directives No Advanced Directives Records FoundNo Advanced Directives Records FoundNo Advanced Directives Records FoundNo Advanced Directives Records Found Additional Source Comments INFORMATION SOURCE (unrecogn ized section and content) DATE CREATED AUTHOR 12/15/2020 [facility] DATE CREATED AUTHOR AUTHOR'S ORGANIZ ATION 06/23/2022 [facility]ical Specialist DATE CREATED AUTHOR AUTHOR'S ORGANIZ ATION 10/01/2023 [facility] Specialists [facility] DATE CREATED AUTHOR AUTHOR'S ORGANIZ ATION 10/13/2023 [facility] FOR RECORDS PERTAINING TO PATIENTS WHO ARE OR HAVE BEEN ENROLLED IN A CHEMICAL DEPENDENCY/SUBSTANCEABUSE PROGRAM, SOME INFORMATION MAY BE OMITTED. This clinical summary was aggregated from multiple sources. Caution should be exercised in using it in the provision of clinical care. This summary normalizes information from multiple sources, and as a consequence, information in this document may materially change the coding, format and clinical context of patient data. In addition, data may be omitted in some cases. CLINICAL DECISIONS SHOULD BE BASED ON THE PRIMARY CLINICAL RECORDS. [facility]. provides no warranty or guarantee of the accuracy or completeness of information in this document.
== END 2023-10-14 14:01 | disposition home or self-care (01) ==
LOC: LAB 14:01
PROVIDERS: PCP Family Medicine; Visit Provider Obstetrics & Gynecology
DX: Z34.80 Encounter for supervision of other normal pregnancy, unspecified trimester (principal)
CPT/HCPCS: 36415

== ENCOUNTER 2023-11-07 06:40 | Emergency (ER) | payer BC, OTHER, SELFPAY ==
[2023-11-07 06:44] VITALS: BP 126/66; PULSE 86; TEMP 36.7; O2SAT 98; BMI 37.9
--- NOTE | 2023-11-07 07:08 | ED.GENADUL1 ---
HPI HPI - General Adult General Chief complaint: Fever Stated complaint: FEVER 15WKS PREG Time Seen by Provider: 11/07/23 07:00 Source: patient Mode of arrival: walk-in History of Present Illness HPI narrative: 23-year-old female to the emergency department chief complaint of nausea, vomiting, diarrhea that began suddenly at 3 AM. Her boyfriend also has similar symptoms. They report that they ate some ham that might not have been cooked temp last evening. She reports some cramping abdominal pain associated with the diarrhea. She reports that she is currently 15 weeks with a confirmed intrauterine by ultrasound in the outpatient setting last week. Related Data Home Medications ?Medication ?Instructions ?Recorded ?Confirmed albuterol sulfate 90 mcg/actuation 2 puff inhalation Q4H PRN 09/23/23 09/23/23 aerosol inhaler shortness of breath or wheezing Previous Rx's ?Medication ?Instructions ?Recorded ondansetron 4 mg disintegrating 4 mg PO Q6H PRN nausea and 06/07/23 tablet vomiting #20 tabs Allergies Allergy/AdvReac Type Severity Reaction Status Date / Time No Known Drug Allergies Allergy Verified 01/12/23 12:19 Opioid HPI Opioid Management Most Recent Opioid Data: Last Pain Scale 6 01/12/23 12:41 Review of Systems ROS Status of ROS 10 or more systems reviewed and unremarkable except as noted in history and below [facility] Social History Smoking status: Current every day smoker Exam Narrative Exam Narrative: VITALS: I have reviewed the triage vital signs. GENERAL: Well developed, well appearing adult in no acute distress. NEURO: Alert and oriented. Moves all extremities. Face is symmetric and expressive. EYES: PERRL. No scleral icterus or conjunctival injection. No discharge. HENT: Normocephalic, atraumatic. Hearing is grossly intact. Nares grossly patent and without discharge. Mucous membranes moist. NECK: No JVD. Patient moves neck without restriction. CARDIO: Rhythm regular. Normal rate. No murmur, rub, or gallop. Pulses equal bilaterally in the upper and lower extremity. No lower extremity edema. PULM: Lungs clear to auscultation in all manuel. No wheezes, rales, or rhonchi. No conversational dyspnea. No splinting, stridor, or accessory muscle use. GI/: Abdomen is soft and non-tender. Normoactive bowel sounds. EXTREMITIES: Symmetric muscle bulk. No joint swelling. No clubbing, cyanosis, or deformity. SKIN: Warm and dry. Normal turgor. No rash or lesions appreciated. PSYCH: Mood, affect, and interaction is appropriate to the setting. Constitutional Vital Signs, click to edit/add: Last Vital Signs Temp 98.1 F 11/07/23 06:44 Pulse 88 11/07/23 08:22 Resp 18 11/07/23 08:22 BP 126/88 11/07/23 08:22 Pulse Ox 100 11/07/23 08:22 O2 Del Method Room Air 11/07/23 06:44 Course Vital Signs Vital signs: Vital Signs Temperature 98.1 F 11/07/23 06:44 Pulse Rate 86 11/07/23 06:44 Respiratory Rate 18 11/07/23 06:44 Blood Pressure 126/66 11/07/23 06:44 Pulse Oximetry 98 11/07/23 06:44 Oxygen Delivery Method Room Air 11/07/23 06:44 Temperature 98.1 F 11/07/23 06:44 Pulse Rate 88 11/07/23 08:22 Respiratory Rate 18 11/07/23 08:22 Blood Pressure 126/88 11/07/23 08:22 Pulse Oximetry 100 11/07/23 08:22 Oxygen Delivery Method Room Air 11/07/23 06:44 Medical Decision Making [facility] [place] Narrative Medical decision making narrative: 23-year-old female with abdominal pain, nausea, vomiting, diarrhea after eating some ham. Boyfriend has same symptoms. Vital stable, the patient is afebrile. Her abdominal examination is benign with no focal tenderness. Basic labs, fluids, Zofran, Tylenol ordered. Patient agrees with this plan. Lab work is unremarkable. Patient reexamined. She feels much improved. She is able to tolerate oral intake. She is appropriate for discharge home. She will continue to take Zofran at home which she has a supply of. Return precautions were discussed. All questions were answered. Suspected diagnosis of gastroenteritis was discussed. Expected clinical course is discussed. She will return with any deviation. Patient was discharged home. [facility] DATA #254: Ultrasound for Patients with Abdominal Pain [x] The patient is and presents with abdominal pain or vaginal bleeding. A trans-abdominal or trans-vaginal ultrasound was NOT performed because [patient has documented intrauterine ] [MIPS PERFORMANCE EXCEPTION/EXCLUSION] Medical Records Medical records reviewed: Yes I reviewed the patient's medical records Lab Data Lab results reviewed: Yes I reviewed the patient's lab results Labs: Lab Results 11/07/23 Range/Units 07:10 WBC 9.4 (4.0-11.0) 10^3/uL RBC 4.63 (4.20-5.40) 10^6/uL Hgb 13.6 (12.0-16.0) g/dL Hct 40.9 (36.0-48.0) % MCV 88.3 (81.0-99.0) fL MCH 29.4 (26.7-34.0) pg MCHC 33.3 (29.9-35.2) g/dL RDW 12.9 (11.0-15.0) % Plt Count 237 (150-450) 10^3/uL MPV 10.5 (9.5-13.5) fL Neut % (Auto) 77.9 H (43.0-75.0) % Lymph % (Auto) 14.8 L (20.5-60.0) % Edwards % (Auto) 5.8 (1.7-12.0) % Eos % (Auto) 0.7 L (0.9-7.0) % Baso % (Auto) 0.4 (0.2-2.0) % Neut # (Auto) 7.3 H (1.4-6.5) 10^3/uL Lymph # (Auto) 1.4 (1.2-3.8) 10^3/uL Edwards # (Auto) 0.6 (0.3-0.8) 10^3/uL Eos # (Auto) 0.1 (0.0-0.7) 10^3/uL Baso # (Auto) 0.0 (0.0-0.1) 10^3/uL Abs Immat Gran (auto) 0.04 H (0.00-0.03) 10^3/uL Imm/Tot Granulo (auto) 0.4 (0.0-0.5) % Sodium 137 (136-145) mmol/L Potassium 3.6 (3.5-5.1) mmol/L Chloride 103 (98-107) mmol/L Carbon Dioxide 24.4 (21.0-32.0) mmol/L Anion Gap 13.2 BUN 5.0 L (7.0-18.0) mg/dL Creatinine 0.62 (0.55-1.02) mg/dL Est GFR ( Amer) >60 (>=60) Est GFR (Non-Af Amer) >60 (>=60) BUN/Creatinine Ratio 8.1 Glucose 85 (74-106) mg/dL Calcium 8.9 (8.5-10.1) mg/dL Total Bilirubin 0.5 (0.2-1.0) mg/dL AST 26 (15-37) U/L ALT 51 (14-59) U/L Alkaline Phosphatase 79 (46-116) U/L Total Protein 7.0 (6.4-8.2) g/dL Albumin 3.1 L (3.4-5.0) g/dL Globulin 3.9 g/dL Albumin/Globulin Ratio 0.8 Lipase 25.0 (16.0-77.0) U/L Urine Color Yellow (YELLOW) Urine Clarity Sl cloudy (CLEAR) Urine pH 7.5 (5.0-9.0) Ur Specific [place] 1.020 (1.005-1.025) Urine Protein Negative (NEG/TRACE) mg/dL Urine Glucose (UA) Negative (NEGATIVE) mg/dL Urine Ketones Negative (NEGATIVE) mg/dL Urine Occult Blood Negative (NEGATIVE) Urine Nitrite Negative (NEGATIVE) Urine Bilirubin Negative (NEGATIVE) Urine Urobilinogen 1.0 (0.2-1.0) EU/dL Ur Leukocyte Esterase Negative (NEGATIVE) Discharge Plan Discharge Stand Alone Forms: Portal Instructions Chief Complaint: Fever Clinical Impression: Gastroenteritis Patient Disposition: Home, Self-Care Time of Disposition Decision: 08:56 Condition: Good Mode of Transportation: Private Vehicle Prescriptions / Home Meds: No Action ondansetron 4 mg tablet,disintegrating 4 mg PO Q6H PRN (Reason: nausea and vomiting) Qty: 20 0RF albuterol sulfate 90 mcg/actuation HFA aerosol inhaler 2 puff INHALATION Q4H PRN (Reason: shortness of breath or wheezing) Print Language: German Instructions: Gastroenteritis (ED), Acute Nausea and Vomiting (ED) Additional Instructions: Call the office of your primary care doctor to arrange for follow-up within the above-stated timeframe. Your ED visit was focused on your acute issue and does not replace primary care. You should review your labs, imaging, and diagnoses from this ED visit with your primary care physician. There may be non-emergent/ incidental findings that need further evaluation. You should review your vital signs including blood pressure with your PCP. If you were prescribed medications you should discuss possible side-effects and drug interactions with your pharmacist. Call 911 or go to the nearest Emergency Department if you develop any new or worsening symptoms. Seek immediate medical attention if you develop: worsening abdominal pain, new or worsening nausea, new or worsening vomiting, new or worsening diarrhea, chest pain, shortness of breath, pain with urination, problems urinating, fever, chills, weakness, or any new or worsening symptoms. Referrals: JEANNA PASCUAL [Primary Care Provider] - 1 week
[2023-11-07] MEDS: ONDANSETRON PF 4 MG/2 ML VIAL IV (07:19)
[2023-11-07] MEDS: 0.9 % SODIUM CHLORIDE 1,000 ML 999 ML IV (07:19)
[2023-11-07] MEDS: ACETAMINOPHEN 325 MG TABLET 650 MG PO (07:19)
[2023-11-07 07:36] LABS: Basophils Percent Auto 0.4 % (0.2-2.0); Eosinophils Absolute Auto 0.1 10^3/uL (0.0-0.7); Eosinophils Percent Auto 0.7 % (0.9-7.0); Hematocrit 40.9 % (36.0-48.0); Hemoglobin 13.6 g/dL (12.0-16.0); Immature Granulocytes Abs Auto 0.04 10^3/uL (0.00-0.03); Immature Granulocytes Pct Auto 0.4 % (0.0-0.5); Lymphocytes Absolute Auto 1.4 10^3/uL (1.2-3.8); Lymphocytes Percent Auto 14.8 % (20.5-60.0); Mean Corpuscular HGB Conc 33.3 g/dL (29.9-35.2); Mean Corpuscular Hemoglobin 29.4 pg (26.7-34.0); Mean Corpuscular Volume 88.3 fL (81.0-99.0); Mean Platelet Volume 10.5 fL (9.5-13.5); Monocytes Absolute Auto 0.6 10^3/uL (0.3-0.8); Monocytes Percent Auto 5.8 % (1.7-12.0); Neutrophils Absolute Auto 7.3 10^3/uL (1.4-6.5); Neutrophils Percent Auto 77.9 % (43.0-75.0); Platelet Count 237 10^3/uL (150-450); Red Blood Count 4.63 10^6/uL (4.20-5.40); Red Cell Distribution Width 12.9 % (11.0-15.0); White Blood Count 9.4 10^3/uL (4.0-11.0)
[2023-11-07 07:44] LABS: Bilirubin Urine NEGATIVE (NEGATIVE); Blood Urine NEGATIVE (NEGATIVE); Clarity Urine SL CLOUDY (CLEAR); Color Urine YELLOW (YELLOW); Glucose Urine UA NEGATIVE (NEGATIVE); Ketones Urine NEGATIVE (NEGATIVE); Leukocyte Esterase Urine NEGATIVE (NEGATIVE); Nitrite Urine NEGATIVE (NEGATIVE); Protein Urine NEGATIVE (NEG/TRACE); pH Urine 7.5 (5.0-9.0)
[2023-11-07 07:53] LABS: Alanine Aminotransferase 51 U/L (14-59); Albumin Globulin Ratio 0.8; Albumin Level 3.1 g/dL (3.4-5.0); Alkaline Phosphatase 79 U/L (46-116); Anion Gap 13.2; Aspartate Amino Transferase 26 U/L (15-37); BUN Creatinine Ratio 8.1; Bilirubin Total 0.5 mg/dL (0.2-1.0); Calcium 8.9 mg/dL (8.5-10.1); Carbon Dioxide 24.4 mmol/L (21.0-32.0); Chloride 103 mmol/L (98-107); Estimated GFR (African America >60 (>=60); Estimated GFR (Non-African Ame >60 (>=60); Globulin 3.9 g/dL; Glucose 85 mg/dL (74-106); Potassium 3.6 mmol/L (3.5-5.1); Sodium 137 mmol/L (136-145)
[2023-11-07 08:00] LABS: Urine Microscopic Indicated NO
[2023-11-07 08:22] VITALS: BP 126/88; PULSE 88; O2SAT 100
== END 2023-11-07 09:03 | disposition home or self-care (01) ==
PROVIDERS: Emergency Provider Student in an Organized Health Care Education/Training Program; PCP Family Medicine
DX: O99.612 Diseases of the digestive system complicating pregnancy, second trimester (principal); K52.9 Noninfective gastroenteritis and colitis, unspecified; Z3A.15 15 weeks gestation of pregnancy; O99.332 Smoking (tobacco) complicating pregnancy, second trimester; F17.200 Nicotine dependence, unspecified, uncomplicated
CPT/HCPCS: 36415; 80053; 81003; 83690; 85025; 96361; 96374; 99284; J2405

== ENCOUNTER 2023-12-14 12:06 | Outpatient (OUT) | payer OTHER, SELFPAY | END 2023-12-14 12:07 | disposition home or self-care (01) | PROVIDERS: PCP Family Medicine; Visit Provider Obstetrics & Gynecology | DX: Z34.92 Encounter for supervision of normal pregnancy, unspecified, second trimester (principal) | CPT/HCPCS: 36415; 82105 ==

== ENCOUNTER 2023-12-14 19:01 | Outpatient (REF) | payer OTHER, SELFPAY ==
--- OUTSIDE RECORDS SUMMARY | 2023-12-14 19:06 | XMS_ITS | CCD ---
Author Organization [facility] Care Team Providers Care Accounting Advisory Services Manager Name Role Phone REY, DR BRANDON Mock Consulting Unavailable REY, DR BRANDON Mock Attending Unavailable DOE, DR MEEKS Primary Care Unavailable REY, DR BRANDON Mock Admitting Unavailable MAKENNA RUSHING Consulting Unavailable Odalis Briceno Consulting Unavailable Doe, [facility] Primary Care Unavailable CONRADO, WALDO R Admitting Unavailable Doe, [facility] Primary Care Unavailable CONRADO, WALDO R Attending Unavailable Doe, [facility] Primary Care Unavailable MARQUISE Calvillo Admitting Unavailable MARQUISE Calvillo Attending Unavailable CONRADO, WALDO R Attending Unavailable Doe, [facility] Primary Care Unavailable CONRADO, WALDO R Admitting Unavailable Doe, [facility] Primary Care Unavailable CONRADO, WALDO R Admitting Unavailable CONRADO, WALDO R Attending Unavailable Doe, [facility] Primary Care Unavailable Doe, [facility] Primary Care Unavailable CONRADO, WALDO R Admitting Unavailable CONRADO, WALDO R Attending Unavailable LAW, MARY Carlson Attending Unavailab le CONRADO, WALDO Attending Unavailable LAW, MARY Carlson Attending Unavailab le Allergies Allergy Classification Reported Allergen(s) Allergy Type Date of Onset Reaction(s) Facility (1 source) No Known Medication Allergies; Translations: [No Known Medication Allergies] Propensity to adverse reactions to drug (disorder) [facility] Repository Problems Problem Classification Problem Date Documented [...] Coding Summaryon 10-11-2023 Coding Summary HTMLBase 64 CebnvimwQLv4sGr+PGh lYWQ+JH7QPXKbL55zgI JmkD8fG1YHIVqZCcunE SHEGHdDZsAsrjWiEG2n aXNjZXJu IC8+VV9tTPQnBuwjlAS pl2R4uSD8R39dnq2bRX nmdQZ9KVOhYeZjlgejc 6hqyOt8IDlwPuwqExVb IDUejF15AOK2gG67Jg1 7xBZhhVEyv8fijXx4Cn XxZYKbDQS9oHipVYjum 6FnVJRdW50oyEYid7P1 IGNvbGxhcHNlOyBlbXB 5fF5nZUqyhjgyb3vndr mtJkd1zy35dETne3W2d EA4L2OszdR6ZSQbmSSa GqredWRAkS5iopobl0u jeipbMdQbQCZlENu6IP o9DVSpoChiRvQrOL18L MR5THCidgJcJ1JpNDTi wYtwXjG5o1P2Fl2IO9G TMsoiS7PZCPLBVRnydM Q+WZ11wz61N4LjGdtqF eg0PLStOUI8bVF6sT2c EYUjBRuom6Y1sFN4R4A snbSabj7fu1quKMOzBZ whS56ivAEhf0C3NAScn KE4UESjwMtrKvRanR03 Oyc+GQEdeDygq2TeUnd tp2jda6lmgKe4UgffUG PkusGagYdrPMN3s4FtP v1nHDOsdZU3gBP0sZ5t UbZnZqL3ZCjfL422OgY eaBMwLxnhV23wO5LtoQ A+FDFaTgn0VWKjtLzvH K5qV1NbDYFomxcygMId xOpeBT7pOOTwukxzXJY acP0zVZHuQ1z3PsQrRq U0YQtuT9QzAEGsqkxqV x60oH6uIiWoCrT8BTxq N5NhzoF2VAApnSByJQc sXFV7C09oc7M1XKMwEO FwRGI6rDT9tQ8urJrzd jogbGVmdDsgdmVydGlj VNcuCIooZ423ZQUirUz nPkNvZGluZyBEYXRlOi AgMDYvMTgvMjAyNDwvd GQ+NQVcBXD4aNeaXUQs hLPaMLtkMu1xdKcnhGc wKM7dANXtdssyHOPazM 5iFWNrpJQwtUvrXH9pZ JXwxwqru379XcBlJPF2 WXWjeBViQ4FptZ3rAyS iFAAtFYFuS9YegCSvRJ szA412GFciTaO5NPLpz jJqM9TyHGZblIejChH2 m4U3Tp1Lx1XpasmdL3G dsXReRmIcAzexKRt1T0 RkPjwvdHI+CE76UQRnH C11VOp3ELE1xDnaVMjn NQBcU1DjrY0wRzNdXPF kZGRkOyc+PHRhYmxlIH dpZHRoPScxMDAlJyBzd VarEX3rLe2zPJDbDFLc zAwaiIBnHmRug2tyCAB sUNpyOP3arVbrV1LwbC E6TXIzz3j6Qy84Q33sL 3JvdXA+ZXIrwBJ3uXN3 nY7iTgYdJgA3UAzvM43 9CfXbcAObJvixy6wld9 qysLy6PgD1FGHskkPxa EixXWW1z9WgRk17Z08y IHdpZHRoPSIxNSUiIHZ yyGnspm9dnJ8jFt3+PG LssKS2dKF6nH4lCpWlD fP0HXkuB012OnYdgMKc Ebxfw8bfk3dtxSc3RbO rQDYfivDdjUebULG0x2 HeZq31I4KxwVqtq0VbZ nr6sn00bCBuf7L8vMI9 E3DsSRIjeuktsQQurTd cJW6vLMNtvqzjSJVpeL 8kBUHpW2o3EoDaNiQ8L CswG6CxfaP0BUKswYJo UCZaeUQOuE8psvxpj1w fqjczOzAcOPVzPAy7VX q4URYrxMbwGwZwYEL8W aX3RTM2vIEgaZ3jmJtz wdgfbB3gRyq+HZV8xRE kxVKKLN4lQpuerFJ+PH NdCYX1rVzbWZwvMGHxo D5pXAJoD8a7EcJhWiP4 CLciZ6HvlwT1EUAtvNV gIZCiyVNUoV3pdmjqz8 oclhmmFiHsCLWhWGa5V Ns9XXUciSmcWoBqLWS8 ZzW1PLY5ePLsiC7rwGy mdvqngE8sFsx+QmlydG bnUXU6WMm6D2GqFvf9N BMpqEqySJ2ldBFyAOdo Gk8cySlthHobBE4cOVA hmvkhn157NxMny9neVV AmdTFcWCzwBXS7Y04vf 0C2QYIgMCTfIZL3nBH0 rR2qoCjymrgcpPIwzYo gdmVydGljYWwtYWxpZ2 63SOYfpUusAsMgEKd2O 8HxUyu8LPEkcSfaKZ6s qWYnBCagCb4hzHeejLx pXQ9iHNOobvnuy772Wy Skn4cbQELsfGYfORohB ZE9M33re6K8DKBnFEWz FVH6fJV0iT0xaHzqfwy gbGVmdDsgdmVydGljYW rvMFdzY910KXPdxUnvT gVcdTi4X3TySrq3QWBq yKvlBG9ddYAsJRliLx9 yeFkrfSutHH3kHUWoic cms269OyJdw7euTREmg HXbMRonUXZ1W20eh8M9 OWTqIGNqWVB5hDT3pV8 hbGlnbjogbGVmdDsgdm NuzTwmPSvhHWebJ698Z HRvcDsnPlBhdGllbnQg JOznCQf1B5XzMxmucHH +IG55EYViQM09eMBunB Asz9nelZb8KzMbCRKuE CH5rQzwVJezo1PrXGHu V58mmWOli7P4BSPeaPd muKZaQwUncEU5bD0bUU lxseiww9sqcipiZvkpo 2oztn44lL11P41dURgn ZHRoPSIzMCUiIHZhbGl wgr6veX8hIp8+PGNvbC I1kKG2aU0sMOKiVvP8N KisA741AiKydEVxRhgw h1btb6xzrAz9VhC6URG mgzTotRfyXZQ2p9QdNx 01I86aKFrxMJJjFWSbZ JTbUMAbtVxwgc5nhD9f Ii8+USOuwSX7cQW9tF4 fRtNyAmP5EFyjK247Rm VmjNBzOojjR14pI8Ktl XA+NSKmIao0EKHqtVdw DF1qcRHjMKljIg9wFBA 3YyNaTjZbMImnD6LpHC PiahsbqiluaGU8MSQwS HOauV85Ue9ljKygMMMi bNDSxO3srcoqe9jpqow pTaKvUSFkCPo8EVf3YA PmzFkbDvAjDQH2AiR1Y GO6wOZfdN6anRtltccs oO0mU3YiYLHipggiAo6 7dV8kEyHuHnH0NVfyEx c+QkFLRVIsIEFMRVhBT kRSQSBNSUNIRUxMRTwv dGQ+OLWtDMM5hBygUKl aIEPkvE6xIRJvW2q7Cs CuLpN1FLcjF1JwXLLan edwEp03kB3uGtUhInX0 OXnsW6LkfaH2AVTrmYM nCVpcMJV2B51rp7V3DD DkDYOeQEK9wVU2gE2kk GlnbjogbGVmdDsgdmVy cIwkHMflAEymM337CST tfAqeZeXtQeL7AtXoSL P9S9GlVbe1PAFmvArsY V0qcLMyJHmbDc7hfTwa vIcvOV4rLNJtolblFYP uhS8mSLHjrIIkuKvnNY 4wOMLpwekmi925WuTuE UC3NOAdzUVvB4EfvB6y PxUzZSZoYDToK5AgnCY tHKvfE860DAkrBqE2PD IvzxRqL3ApHTUciIucI jL5e2O3Ei0eFoROYNZc czwvdGQ+LWFkOGD2kHj zFVhcDJFtuJ2nGNLpY0 d5XwTtUgN3LZpvO8VgP XYwyvtoIk12iI0dXkDk XhB8GGoqY5QvzdU9HIL ssIEfBLknEWX0B85dd7 O9EPKcSXUeNXC0uSC5p L7soNxgmptsvDDzoUnd ycRblYuvTMjvOTvuD91 6IHRvcDsnPkZFTUFMRT wvdGQ+OKJjCBI1kJsnB MlhGUWuwZ3wGUJwS7i4 BcRlQfK2WWzpA1MtZLZ eewerNl65yO9zUhQyIo F9TQveL5CryiY2IEOjw TPkIRwoBEG0Y48aa7O6 MHJwZUZlSJG1iRC4kQ9 hbGlnbjogbGVmdDsgdm PocIgpHUmdGWwyM055O LOqkQwgFa4ZXI93JP27 C0YhNtreyRTpeVD+PHR hYmxlIHdpZHRoPScxMD GgVdCmdJyzDS7mAp6tW GVyLWNvbGxhcHNlOiBj t2dxOEAxWZtfLX7hpIf rC8ZoxDO8UHTlm9b5Lh 15B80lB4LrsXZ+PGNvb MG8rNZ8lL6rHwZcSvA6 OQjhV427WrXlhGWpEhh ra7gjp0ekaYd9UdGbRV JhkuDbeWkuKVR3j3OmW x58P32uCIdfWZDdHZFi XYAaHTRmmZpodo9prO8 wIi8+LLUwyHP2lYY7qD 7cReZvPxH6JMnbL568L vJgoXIoFhihB00vG2Ix dXA+ETUzSmj0RYZpoCw tQH9zyTLfNZbgUs9lRM T5FgRuJeYlWEzyG4IqD LHxsgyddzzopVU6IICc HICwdJ82Ae2enTabSp2 dXFPcSED6RRSawMOrE6 UkdN7lCeSiEJKnUHPyQ 7VoeIWxPBfgA718EPzp CbE0NQYdjeFwL1JlHGR arAvoDcR5g9Z6Lv8UqY mhiAOgTJ3ePaOlMFa8B 9LhNbq6DIVtwXsaIK9s zZWcYDxaYn8ieDummVm iRU3rONBawdhdq423Ex Kwd0fhBPLoePYiFRadG RE6I29nd1C9XWKvZBZe UKL8rVH4dP0lmUfjeir gbGVmdDsgdmVydGljYW rdKIpbI062JGUwoVfwG ePIMei8J3YaCrg3WETa eJlrMN5jbTMkJQewQq7 cpSizuEspCB1fGMTpws klg088YlCxe9arYRHie QTiXFhrHBH7P19gs8E6 LJOkRRQpDJK7eBQ7eM2 hbGlnbjogbGVmdDsgdm SxbJeyIPruJSmqY080O KXolGuqIs5WKtd3M8Ci Fir2SRPxjBzkYC0bjIB rFQmdOn3apJmrzGglPD 4eQXOkhuzkk139OzRcd 8kySOYqrONgTWgoNEI5 Q22yl0H4EMQyYWLoFKI 1eKQ3rM4xtLpvlphbiM VmdDsgdmVydGljYWwtY FidC757OKAjkOvsAlYd eWVyOjwvdGQ+NF05bb7 6H0XyCtyyDjf9OJJnBD Q6qEP3tW4wRFNoHBoum 8R4pBN6H0FjndJxqr3q b2x (more content not included)... Normal [facility] C Urineon 10-08-2023 C Urine 45,000 cfu/ml [...] <=0.5/9.5 Verified Vanc S 2 Verified Normal [facility] Comment on above: Performed By: #### 6 [id number], [id number], [id number] #### [facility] (DEFAULT) [address] [place] [address] HBsAg Screen LCon 10-07-2023 HBsAg Screen LC Negative Invalid Interpretation Code Negative [facility] Comment on above: Result Comment: Perf ormed At: [facility] [address] [id number] Bibi Irwin PhD Ph:[phone] Performed By: #### 3 [id number] #### [facility] (DEFAULT) [address] [place] [address] HCV Antibody LCon 10-07-2023 Hep C Virus Ab LC Non-Reactive Invalid Interpretation Code Non Reactive [facility] Comment on above: Result Comment: HCV antibody alone does not differentiate between previously resolved infection and active infection. Equivocal and Reactive HCV antibody results should be followed up with an HCV RNA test to support the diagnosis of active HCV infection. Performed At: [address] [id number] Bibi Irwin PhD Ph:[phone] Performed By: #### 3 [id number] #### [facility] (DEFAULT) [address] [place] [address] HIV 4th Gen Screen w Reflex LCon 10-07-2023 HIV Scr 4th Gen LC Non-Reactive Invalid Interpretation Code Non Reactive [facility] Comment on above: Result Comment: HIV Negative HIV-1/HIV-2 antibodies and HIV-1 p24 antigen were NOT detected. There is no laboratory evidence of HIV infection. Performed At: [address] [id number] Bibi Irwin PhD Ph:[phone] Performed By: #### 1 [id number] #### [facility] (DEFAULT) [address] [place] [address] RPR, Rfx Qn RPR/Confirm TP L Con 10-07-2023 RPR LC Non-Reactive Invalid Interpretation Code Non Reactive [facility] Comment on above: Result Comment: Perf ormed At: [address] [id number] Bibi Irwin PhD Ph:[phone] Performed By: #### 3 [id number] #### [facility] (DEFAULT) [address] [place] [address]13 Rubella Antibodies, IgG LCon 10-07-2023 Rubella Antibodies, IgG LC 1.90 index Invalid Interpretation Code Immune >0.99 [facility] Comment on above: Result Comment: Non- immune <0.90 Equivocal 0.90 - 0.99 Immune >0.99 Performed At: [address] [place], [place] [id number] Bibi Irwin PhD Ph:[phone] Performed By: #### 3 [id number] #### [facility] (DEFAULT) [address] [place] [address] .Auto Diff 10-06-2023 Auto Worth % 4 % Normal 12 [facility] Comment on above: Performed By: #### 1 [id number], 91650964, 7136222, 52978719, 9956100494, 7060807, 46361449, 07561814, 14267257, 27875598 #### [facility] (DEFAULT) [address] [place] [address] Baso Abs# 0.0 x10 Normal 0.0-0.2 [facility] Comment on above: Performed By: #### 1 [id number], 78839033, 1215811, 53247302, 1545225105, 6791901, 95506237, 28919321, 38788140, 97775021 #### [facility] (DEFAULT) [address] [place] [address] Basophils/100 WBC (Bld) 0.4 % Normal 0.2-2.0 [facility] Comment on above: Performed By: #### 1 [id number], 49828130, 0564819, 11396772, 7199467956, 7295115, 99904856, 98547612, 20136714, 85448276 #### [facility] (DEFAULT) [address] [place] [address] Eos Abs# 0.0 x10 Normal 0.0-0.4 [facility] Comment on above: Performed By: #### 1 [id number], 98145591, 3679319, 81508130, 3738794805, 1108257, 22258748, 20502002, 32997666, 98516463 #### [facility] (DEFAULT) [address] [place] [address] Eosinophils/100 WBC (Bld) 0.3 % Low 0.9-4.0 [facility] Comment on above: Performed By: #### 1 [id number], 21062346, 2090567, 68946860, 0584565395, 8844758, 50907722, 30699173, 28345435, 41196208 #### [facility] (DEFAULT) [address] [place] [address] 84692 Lymph Abs# 1.5 x10 Normal 1.3-2.9 [facility] Comment on above: Performed By: #### 1 [id number], 35638677, 7072734, 96567627, 7317577147, 8793000, 47493476, 69342545, 81030082, 12648639 #### [facility] (DEFAULT) [address] [place] [address]78 Lymphocytes/100 WBC (Bld) 13 % Low 14-48 [facility] Comment on above: Performed By: #### 1 [id number], 71531318, 9633356, 19592219, 1355559686, 7614632, 95545222, 17917993, 36195620, 29318921 #### [facility] (DEFAULT) [address] [place] [address] Worth Abs# 0.5 x10 Normal 0.0-0.8 [facility] Comment on above: Performed By: #### 1 [id number], 86948201, 3714586, 00789895, 9378614418, 1936677, 52682348, 12167872, 13377653, 65896347 #### [facility] (DEFAULT) [address] [place] [address] 29475 Neut Abs# 9.8 x10 High 1.5-9.2 [facility] Comment on above: Performed By: #### 1 [id number], 97903968, 0248045, 23753348, 3648607247, 7353813, 17103296, 17059226, 37707035, 95487106 #### [facility] (DEFAULT) [address] [place] [address] 50931 Neutrophils/100 WBC (Bld) 82 % Normal 44-88 [facility] Comment on above: Performed By: #### 1 [id number], 64936174, 6867841, 99852211, 9553346828, 2056772, 06387001, 40924106, 55822611, 08669991 #### [facility] (DEFAULT) [address] [place] [address] ABORhon 10-06-2023 ABO and Rh group Nom (d) Hx Check: Not Found Anti-A: 0 Anti-B: 0 Anti-D: 0 DCon: NT A1: 4+ B: 4+ ABORh Interp: O NEG Invalid Interpretation Code [facility] Comment on above: Performed By: #### 1 [id number], 30564318, 3477177, 27872459, 4784891263, 0703414, 52196784, 44809695, 28206390, 58996927 #### [facility] (DEFAULT) [address] [place] [address] ABORh Retypeon 10-06-2023 ABO and Rh group Nom (Bld) Ordered by Discern. Anti-A: 0 Anti-B: 0 Anti-D: 0 DCon: NT A1: 4+ B: 3+ ABORh Retype: O NEG Invalid Interpretation Code [facility] Comment on above: Performed By: #### 1 [id number], 26455681, 9075458, 76987937, 3510196802, 4243729, 42496733, 59029206, 64723502, 35773143 #### [facility] (DEFAULT) [address] [place] [address] ABSC Gelon 10-06-2023 ABSC Gel Negative Normal [facility] Comment on above: Performed By: #### 3 [id number] #### [facility] (DEFAULT) [address] [place] [address] CBC w/ Auto Diffon Erythrocyte distribution width (RBC) [Ratio] 13.3 % Normal 11.5-15.0 [facility] Comment on above: Performed By: #### 1 [id number], 06721786, 2643804, 45462348, 9046166957, 4995157, 62052635, 36469137, 32136931, 64786765 #### [facility] (DEFAULT) [address] [place] [address] Hematocrit (Bld) [Volume fraction] 41.2 % High 33.7-40.4 [facility] Comment on above: Performed By: #### 1 [id number], 91479097, 6867777, 42083315, 3913850085, 8479774, 11492485, 66283544, 40210087, 62369550 #### [facility] (DEFAULT) [address] [place] [address] Hemoglobin (Bld) [Mass/Vol] 13.6 g/dL Normal 11.3-15.9 [facility] Comment on above: Performed By: #### 1 [id number], 69563834, 6965684, 16382521, 2576395808, 5571929, 41537036, 60350345, 03603552, 49962450 #### [facility] (DEFAULT) [address] [place] [address] Man Diff? Auto Invalid Interpretation Code [facility] Comment on above: Performed By: #### 1 [id number], 49259655, 5868006, 68482897, 5234472574, 6522459, 64144702, 48441534, 89508506, 69717548 #### [facility] (DEFAULT) [address] [place] [address] MCH (RBC) [Entitic mass] 28 pg Normal 24-34 [facility] Comment on above: Performed By: #### 1 [id number], 80186091, 7173340, 53407441, 1055816307, 3629277, 11189621, 61397236, 81500669, 41285212 #### [facility] (DEFAULT) [address] [place] [address] MCHC (RBC) [Mass/Vol] 33 g/dL Normal 26-37 [facility] Comment on above: Performed By: #### 1 [id number], 48254405, 4047203, 82546826, 8124397537, 6916895, 07885833, 03263017, 32011225, 69084992 #### [facility] (DEFAULT) [address] [place] [address]37 MCV (RBC) [Entitic vol] 86 fL Normal 81-100 [facility] Comment on above: Performed By: #### 1 [id number], 99205800, 8809084, 57030958, 9952315009, 3672670, 28591875, 76457805, 88663010, 81968644 #### [facility] (DEFAULT) [address] [place] [address]9 Platelet 267 x10 Normal 138-427 [facility] Comment on above: Performed By: #### 1 [id number], 91709552, 0952381, 96885144, 6407487504, 1527505, 46238449, 67542995, 37234819, 92665686 #### [facility] (DEFAULT) [address] [place] [address] 09834 Platelet mean volume (Bld) [Entitic vol] 8.4 fL Normal 6.3-10.2 [facility] Comment on above: Performed By: #### 1 [id number], 25639352, 2033917, 42830640, 0732821521, 9115460, 79867907, 45093807, 92958040, 86141394 #### [facility] (DEFAULT) [address] [place] [address] 24400 RBC 4.79 x10 Normal 3.70-5.30 [facility] Comment on above: Performed By: #### 1 [id number], 89376949, 6101291, 50497732, 7029583069, 8015271, 42004467, 78424668, 18424045, 22273912 #### [facility] (DEFAULT) [address] [place] [address] WBC 11.8 x10 High 3.5-10.5 [facility] Comment on above: Performed By: #### 1 [id number], 80822398, 6196887, 43927432, 0094965855, 9803267, 58682489, 90198197, 79468236, 52786693 #### [facility] (DEFAULT) [address] [place] [address] HgbA1c Standardon 10-06-2023 .Hb 15.7 Invalid Interpretation Code [facility] Comment on above: Performed By: #### 1 [id number], 23272291, 3734486, 71683320, 9551999443, 5858747, 37573583, 59115726, 26441278, 43587237 #### [facility] (DEFAULT) [address] [place] [address] .Hgb A1c 0.45 g/dL Invalid Interpretation Code [facility] Comment on above: Performed By: #### 1 342281856, 52817658, 9166212, 50047132, 1534924362, 9595622, 81755102, 80271802, 74046318, 48618094 #### [facility] (DEFAULT) [address] [place] [address] Glucose [Mass/Vol] 88 mg/dL Invalid Interpretation Code [facility] Comment on above: Performed By: #### 1 [id number], 87440167, 1101791, 48597932, 9834239076, 2949778, 11291698, 06832273, 64077748, 33365741 #### [facility] (DEFAULT) [address] [place], [place] [address] HbA1c (Bld) [Mass fraction] 4.7 % Normal 4.6-6.2 [facility] Comment on above: Performed By: #### 1 [id number], 37289669, 6433971, 36911648, 4847649618, 1691917, 01728563, 75399324, 84792471, 14342483 #### [facility] (DEFAULT) [address] [place] [address] Provider Orderson 10-06-2023 Provider Orders [id number] [facility] 07-04-2023 Coding Summary HTMLBase 64 CbltswetUCp7oKo+PGh lYWQ+KX0UZVYrD52lkB IilZ0pQ9SCZOpDKtmjW ZVPYIgAQgRfcyZcWQ6k aXNjZXJu IC8+QX9yBCAhUglxjAF pp6S8jJG7D51jcf9yZD spaRS5JDKtRiVkxgpiy 6azpZw7XGsrFezjNmWn BVXckJ93RRD0qQ60Vd2 0wKDwdZYsh1khzGr7Ok OaLHTxHSQ8xAnvJLhsb 0JxYHDkJ77hsTXkk5R0 IGNvbGxhcHNlOyBlbXB 9lO6kOLrzvmlbw0oezf bpPay2xf78pEPai9U6s AT6W2EhyuO5QQFhxSBq YqsqzSSRnO6yfcrun9n pfqrlMvPvPYHjOIx4VJ n8DMFnyHigUqHjNN17N RC3RNSwxnAsY5XuRRWw kNevWnC7v9I9Ra3TB7I SEpshA4VULZWLDMsvdK Q+CI37pe81A2VzTsvbC vu0QRXqQXR1lQV5cB4e KREmMBzus3A3iJX0I2R ambEoyl1jh4jlWGFiPD hrT40drNJhg7V5ZTIwn DH2XQNqhAnpBvYetR44 Oyc+KRVdyFcgl4KuIuk gc9kzb6wfiOt7HkwaRT YgbmHrpHyqTFU7i7KrK p4hLSBhsLQ2wWA7xY6v ZfMbGoW6HKwsU144PgN frWBiRcjnI63pA9EhcY A+KCJtLfg2AAJkyFojQ H7tK9ZnJXLrmdgqdYPp gAvhEX1rVYEbrgxjDLF boQ9kSJNmU5k0ZsNgAq G7ZNkwW4FfFFZhztnqJ f74aF2qTlEsQeZ7EDrr T5QqgcF2GKKjhCZwKZi zEFK3B31lk9N2AHHuYX BkSEL3uCC8kY8heVgjj jogbGVmdDsgdmVydGlj TRydWArnF833OHHxuTr nPkNvZGluZyBEYXRlOi AgMDMvMTEvMjAyNDwvd GQ+WPMmEWT1jImyQKBe cPTcILnyRw5oaBbeeOl rMI5qJUWictdnHJTfdZ 2oFJQeaERlbNshWI4bI KKhcowtm550OqDvDUD7 INEmpQUcW4QhpR8uKgS tLQBsUKGzL8DfuIYfUF joJ143BBxvJxF5PYQta mPqP5OgPNRyuXjyEnR7 d1N2Ui6Ol5LeaplqS6J fpDWvDsPuCnxlNWp8E6 RkPjwvdHI+NB46IXTbO B79DKd5PUQ4vMdlBQcu OGWqO0PaxR0iBrYbGRJ kZGRkOyc+PHRhYmxlIH dpZHRoPScxMDAlJyBzd CehMP8iDq1lEFYcDBGv fDnauIMwHnJkw6vfFKT cUGziYN4axVjwV7CpcW G9GHZwx1h5Sz80B80qP 3JvdXA+XWQhhFF8tMC8 hW7xFnHrRrG1BZlsU87 6ToIigSFeYuogb2ziv2 sgbJr5GnP2ZIPtqqLgx NkmVFS9r6CyDn54M54i IHdpZHRoPSIxNSUiIHZ tiPmorm0xxT3zNe3+PG OikRS6fYF9fI7tPaXxL mZ3KKcyX350FmYdeMOo Joqhg4ilh5alcAg2WfK vHLYreqEfwAgeOLF7q0 BuDm71A1PacSzfz4NzX ik9bu61uWEeu2R4vJM3 X2TtXRGplcqfcNTnyPz lKA9jWWCadpalCZHnhE 5mOKLcQ3y6FuRvNjO4Z JipP7XugaI6RSTetPGz NVZykRRKhS7zufdad9z acdmkXqPaQLBbYWn2LY i6UPFvbSlpFtGbDZP8R aI2GKS3hOFxyW6hvEzd ejqbdD8qMtb+SHQ5tWT okITFQZ8pUopnsVF+PH NyOWF0fJbxAAxyIFKiw N2uBPJdN9j4BmHeKjL4 JQmaO3ArtsI4WBCzfLU iFHFtwBQTuV0zgnenm0 eapipcVaNsBIZiSGe5V Ws2UUBsnOczFqPgLSF1 LjQ8XGX0eYMqhX8zsBr jrwkigS5lPjv+QmlydG fmGDA3UXv0B6NbKrj5U QFenUgeWF5kxCIkDUst Fo3wwHqtgQmcGH0pUIN gdvgjs409FxPui8bqWY JxzBLmDCxgLNR1K68uj 4W6TWBfRALnCPZ1oMN3 yU3dtLnlcahuuXRgnRh gdmVydGljYWwtYWxpZ2 49OMJevAmlTfHbFEr7O 3EcKbc4YOBxdQzvLB4f vILlTBycMe4emLfzfXg rZX0pHSKvcfgis453Dp Srl7wdUJUxiQQlZNfxS VH0J82yh6Y4QGRsWLJm CEE8lKN9aJ3onLevyjv gbGVmdDsgdmVydGljYW vnEIusQ726ZQNzrEggV hPyhNn7G5HtRop7LEOd kPakAL5rcVIgHZwsYb2 qfDoiiVzhDQ9uIACcjo bfb279VfZsp9poKMRra MBlDPvkUYU9N61ew8T3 GPFqRAPqNDJ0qME5sT1 hbGlnbjogbGVmdDsgdm TjuDsjCTxrKMhcQ845M HRvcDsnPlBhdGllbnQg XNhqZZl1K1RcFxnnyUL +WB27QZQfRG49jNCavD Jte9rmnJc8GrIgBELxU UE0hBmoYQerc8XdCFVw V23dcYFvw7I6DFClnRv zqYMeLxDwaVV7vD0wKN eytmgov4mtjxmhJinqy 4uqqq94aR94L14fDRxx ZHRoPSIzMCUiIHZhbGl iws9ffB4kMe5+PGNvbC D0qIH2bT3cURSyLqQ9I BzjP290GeEscWQnWilc e3kpk4xhfBy0KgJ0UME vxkVqkDilUHB6l7JkOc 13Q25dDBjwZAAyTSZtL FVwKDLeiRvqwg6reL0a Ii8+NBOhqNK2sML6dA4 jPdPcGtI3VJxtA956Sn JqiDYlPnyrX45kQ5Gaz XA+TUZcEco4GWTiiWmr QZ5wwIRdEUcrQa8hPYE 3CzPkStSlUZaxE3UcNT BvmbtbdnfzzDE0ELMjX KSojA69Ch4sgBmnCGYc cUXGmH0ujdkjb2pmtwj gAoBhCFMeGRz7JAk6QC LmoHuzNkRnIQN4XhE6V YZ5sTOlxA3kuLdgyegs qY4rV8IgSDJweebmCc0 2mN5eWdSbUjD1PImqAm c+QkFLRVIsIEFMRVhBT kRSQSBNSUNIRUxMRTwv dGQ+VCZxMLA9uOdpQPx xQQNunK7eUFZbW4a6Km FhQlL7BVvrH2OaSEAmh pagUs73zT2wTzQeNxI4 ZBxzM0WfsrX1KCMpzMB pHNquSVH4H02uf3P8EC JoMARtISK0dIM3mE2bh GlnbjogbGVmdDsgdmVy bQyyUOljOIppZ562VXC hkAwsDhYtRhL9LsKzSN L8I1RzHmx2ZAQmyJvhL V1bnRPmZVuqZy5kyLal dQsaOS3tOTRnfwhhHOC ciN1dLVCnoCJacBjiLC 7tMWHqxaoty321OfHmE PM1XWWqbYUzC6CtxU5d TcErMFMtGVAnD6VlrCM cXGdgN185EVghNjG8AT PogeGjK6FnOSAkeOngN jS2j6A6Tl2sEiHMPGFu czwvdGQ+HDFbIYA5rPj uCFdoUQJqhO7dZBExD5 f5GkZnRhH9KUggN4YfK WKefylaFz25lO5gKgCr KjI6DIztM6FcneW7RFC maLIkPYbkNHJ8Y41uc6 F6WJKhSCXiJKF2yFT4t C4woYuldrjdeIDdbDhf stXujYzdDAlfMYhgH75 6IHRvcDsnPkZFTUFMRT wvdGQ+UAVnJXW1wCddF LodUXPomK0sCHYgA6l1 DqTtRrJ6IAypO0RrQOA rmxkkPy62pB2aLsOhTg R9GSwdD3AcbsA5ANAbl ZLgDElaNZW8F32yq4P8 WUOzTMByEKB7pDG4mY3 hbGlnbjogbGVmdDsgdm UihDrsSGstGCpcJ520A XRcbDgtKgTiI9Pryoza PaUWhNGvYDYfSE39JE5 2KL25A2IbZgkvoLYfmH U+PHRhYmxlIHdpZHRoP ResRKWzFmHxhOhdYS1u Hb4fFSYiMZYacHsmaFY lSlEgr4rbWRNzWEeoPL 8cxAgcG5EldTS9HIOsj 3i8Hm29Z30eT6ZcfBB+ SJLyaWL3wWN6vD1zYkQ xFuR2GMlyV722QqKwxV EkUfxin5jth0rfmCu7U jMwJSIgdmFsaWduPSJ0 k2KjPh13F13nKVjzTAF oPSIyMCUiIHZhbGlnbj 0ysE3nLi0+FKZawPD3o XP5vJ1rIoKzUhA7BUyo N269AdZbbMYrFhlcW51 eZ9SmiWN+HOLtBpz2QM OavDwoAO4bgYZcZKxwZ g7gYFX3UiLvLdQcKRag M0NmJPVpaqgdtdubqTU 2OCEmXDCrwB30Bb9cxO osKc2zPDVpCFO1GXAzu MGjD7SleA4pNfSgNXJi EFHwF3CodNMhXJalZ66 6YJkaBcQ1CZPiyzHkH1 PcTGYqkEqjCjV9v0R3D g1MyYxixWTeKL6eDhXu QJq6X1SnZhr7DKBwqZx dVO3syBEhKVtbOg0pdB aovEfhUR2oOFSyabkbm 738BeXzj3kwFZDsfMSh YAqdSPN4K95as2N0VLJ mBNLbYSU9cLE7pG6cqW lnbjogbGVmdDsgdmVyd DsrFOlhSMxpJ237EOFs sXjkPnOOKek3I8FdTyg 7LDZzlCwpMT5ibPFrQN aaIm2jbMkcqZiaRC4cR YTnvegph841CaSzq1vl XMWtrFPuYRcpPVA6G16 va6V1PCYbIUHcQGI2iJ D1mO4yaDnemejwlEZri DsgdmVydGljYWwtYWxp I426LBLopEqgWm1JXjz 3Z4LqYio4FPWymLduBY 0gyQPqLHjyPm0thWczf LbaCT8wVXKsipoge134 SuIal9pwYFHitEHkTBx oASQ5Z14ak0V6QBBvTK UpUET8zVP3aP8ibCgmw jogbGVmdDsgdmVydGlj PMdiUAteJ134JQXzuZe nPlBheWVyOjwvdGQ+PC 13hr18C3NdYnclEbe7M RCzOOC2qVN6rZ3uVOIi [facility] [place] (more content not included)... Normal [facility] .Auto Diff 04-22-2023 [place] % 6 % Normal 05-06 [facility] Comment on above: Performed By: #### 3 [id number] #### [facility] (DEFAULT) [address] [place] [address] [id number] Baso Abs# 0.1 x10 Normal 0.0-0.2 [facility] Comment on above: Performed By: #### 3 [id number] #### [facility] (DEFAULT) [address] [place] [address] [id number] Basophils/100 WBC (Bld) 0.8 % Normal 0.2-2.0 [facility] Comment on above: Performed By: #### 3 [id number] #### [facility] (DEFAULT) [address] [place] [address] [id number] Eos Abs# 0.1 x10 Normal 0.0-0.4 [facility] Comment on above: Performed By: #### [id number] #### [facility] (DEFAULT) [address] [place] [address] 93617 Eosinophils/100 WBC (Bld) 1.8 % Normal 0.9-4.0 [facility] Comment on above: Performed By: #### 3 [id number] #### [facility] (DEFAULT) [address] [place] [address] 83669 Lymph Abs# 2.1 x10 Normal 1.3-2.9 Access [facility] Comment on above: Performed By: #### 3 [id number] #### [facility] (DEFAULT) [address] [place] [address] 15409 Lymphocytes/100 WBC (Bld) 26 % Normal 14-48 [facility] Comment on above: Performed By: #### 3 [id number] #### [facility] (DEFAULT) [address] [place] [address] 26922 Worth Abs# 0.5 x10 Normal 0.0-0.8 [facility] Comment on above: Performed By: #### 3 [id number] #### [facility] (DEFAULT) [address] [place] [address] 37478 Neut Abs# 5.2 x10 Normal 1.5-9.2 [facility] Comment on above: Performed By: #### 3 [id number] #### [facility] (DEFAULT) [address] [place] [address] 25993 Neutrophils/100 WBC (Bld) 65 % Normal 44-88 [facility] Comment on above: Performed By: #### 3 [id number] #### [facility] (DEFAULT) [address] [place] [address] 19919 CBC w/ Auto Diffon 3 Man Diff? Auto Invalid Interpretation Code [facility] Comment on above: Performed By: #### 3 [id number] #### [facility] (DEFAULT) [address] [place] [address] 94369 Erythrocyte distribution width (RBC) [Ratio] 13.1 % Normal 11.5-15.0 [facility] Comment on above: Performed By: #### 3 [id number] #### [facility] (DEFAULT) [address] [place] [address] 58454 Hematocrit (Bld) [Volume fraction] 40.7 % High 33.7-40.4 [facility] Comment on above: Performed By: #### 3 [id number] #### [facility] (DEFAULT) [address] [place] [address] 38689 Hemoglobin (Bld) [Mass/Vol] 14.0 g/dL Normal 11.3-15.9 [facility] Comment on above: Performed By: #### 3 [id number] #### [facility] (DEFAULT) [address] [place] [address] 91049 MCH (RBC) [Entitic mass] 29 pg Normal 24-34 [facility] Comment on above: Performed By: #### 3 [id number] #### [facility] (DEFAULT) [address] [place] [address] 66709 MCHC (RBC) [Mass/Vol] 34 g/dL Normal 26-37 [facility] Comment on above: Performed By: #### 3 [id number] #### [facility] (DEFAULT) [address] [place] [address] 55117 MCV (RBC) [Entitic vol] 85 fL Normal 81-100 [facility] Comment on above: Performed By: #### 3 [id number] #### [facility] (DEFAULT) [address] [place] [address] Platelet 275 x10 Normal 138-427 [facility] Comment on above: Performed By: #### 3 [id number] #### [facility] (DEFAULT) [address] [place] [address] Platelet mean volume (Bld) [Entitic vol] 7.7 fL Normal 6.3-10.2 [facility] Comment on above: Performed By: #### 3 [id number] #### [facility] (DEFAULT) [address] [place] [address] RBC 4.79 x10 Normal 3.70-5.30 [facility] Comment on above: Performed By: #### 3 [id number] #### [facility] (DEFAULT) [address] [place] [address] WBC 7.9 x10 Normal 3.5-10.5 [facility] Comment on above: Performed By: #### 3 [id number] #### [facility] (DEFAULT) [address] [place] [address] 59591 CMP Standardon 04-22-2023 eGFR Non AA >60 Invalid Interpretation Code [facility] Comment on above: Performed By: #### 3 [id number] #### [facility] (DEFAULT) [address] [place] [address] eGFR AA >60 Invalid Interpretation Code [facility] Comment on above: Performed By: #### 3 [id number] #### [facility] (DEFAULT) [address] [place] [address] 89114 Albumin [Mass/Vol] 4.0 g/dL Normal 3.5-5.0 [facility] Comment on above: Performed By: #### 3 [id number] #### [facility] (DEFAULT) [address] [place] [address] 39748 Albumin/Globulin [Mass ratio] 1.2 {ratio} Low 1.4-2.6 [facility] Comment on above: Performed By: #### 3 [id number] #### [facility] (DEFAULT) [address] [place] [address] 36649 Alk Phos 68 IU/L Normal 32-91 [facility] Comment on above: Performed By: #### 3 [id number] #### [facility] (DEFAULT) [address] [place] [address] 02985 ALT [Catalytic activity/Vol] 14.0 U/L Normal 14.0-54.0 [facility] Comment on above: Performed By: #### 3 [id number] #### [facility] (DEFAULT) [address] [place] [address] 04072 Anion gap [Moles/Vol] 10.9 mmol/L Normal 5.0-19.0 [facility] Comment on above: Performed By: #### 3 [id number] #### [facility] (DEFAULT) [address] [place] [address] 63707 AST [Catalytic activity/Vol] 18 U/L Normal 15-41 [facility] Comment on above: Performed By: #### 3 [id number] #### [facility] (DEFAULT) [address] [place] [address] 03052 Bili Total 0.6 mg/dL Normal 0.3-1.2 [facility] Comment on above: Performed By: #### 3 [id number] #### [facility] (DEFAULT) [address] [place] [address] 63885 Calcium [Mass/Vol] 8.8 mg/dL Low 8.9-10.3 [facility] Comment on above: Performed By: #### 3 [id number] #### [facility] (DEFAULT) [address] [place] [address] 64157 Chloride [Moles/Vol] 107 mmol/L Normal 101-111 [facility] Comment on above: Performed By: #### 3 [id number] #### [facility] (DEFAULT) [address] [place] [address] 05842 CO2 [Moles/Vol] 23 mmol/L Normal 21-32 [facility] Comment on above: Performed By: #### 3 [id number] #### [facility] (DEFAULT) [address] [place] [address] 63752 Creatinine [Mass/Vol] 0.68 mg/dL Normal 0.60-1.30 [facility] Comment on above: Performed By: #### 3 [id number] #### [facility] (DEFAULT) [address] [place] [address] 05599 Globulin (S) [Mass/Vol] 3.3 g/dL Normal 1.5-4.3 [facility] Comment on above: Performed By: #### 3 [id number] #### [facility] (DEFAULT) [address] [place] [address] 45023 Glucose [Mass/Vol] 103.0 mg/dL Normal 74.0-118.0 [facility] Comment on above: Performed By: #### 3 [id number] #### [facility] (DEFAULT) [address] [place] [address] 90580 Osmolality 274 mOsm/L Invalid Interpretation Code [facility] Comment on above: Performed By: #### 3 [id number] #### [facility] (DEFAULT) [address] [place] [address] 32732 Potassium [Moles/Vol] 3.9 mmol/L Normal 3.6-5.1 [facility] Comment on above: Performed By: #### 3 [id number] #### [facility] (DEFAULT) [address] [place] [address] 78724 Protein [Mass/Vol] 7.3 g/dL Normal 6.5-8.1 [facility] Comment on above: Performed By: #### 3 [id number] #### [facility] (DEFAULT) [address] [place] [address] 11650 Sodium [Moles/Vol] 137.0 mmol/L Normal 136.0-144.0 [facility] Comment on above: Performed By: #### 3 [id number] #### [facility] (DEFAULT) [address] [place] [address] 42765 Urea nitrogen [Mass/Vol] 12 mg/dL Normal 8-26 [facility] Comment on above: Performed By: #### 3 [id number] #### [facility] (DEFAULT) [address] [place] [address] 30639 Urea nitrogen/Creatinine [Mass ratio] 17.6 mg/mg High 4.6-16.2 [facility] Comment on above: Performed By: #### 3 [id number] #### [facility] (DEFAULT) [address] [place] [address] 95066 Lipid Panel Standardon 04-22 Cholesterol [Mass/Vol] 158.0 mg/dL Normal 66.0-200.0 [facility] Comment on above: Performed By: #### 3 [id number] #### [facility] (DEFAULT) [address] [place] [address] 75505 Cholesterol in HDL [Mass/Vol] 51 mg/dL Normal 40-71 [facility] Comment on above: Performed By: #### 3 [id number] #### [facility] (DEFAULT) [address] [place] [address] 81222 Cholesterol in LDL [Mass/Vol] 98 mg/dL Normal 1-100 [facility] Comment on above: Performed By: #### 3 [id number] #### [facility] (DEFAULT) [address] [place] [address] 52630 Cholesterol.total/Cholest amanda in HDL [Mass ratio] 3.0 {ratio} Normal 0.0-4.5 [facility] Comment on above: Performed By: #### 3 [id number] #### [facility] (DEFAULT) [address] [place] [address] 02661 Triglyceride [Mass/Vol] 43.0 mg/dL Normal 0.0-150.0 [facility] Comment on above: Performed By: #### 3 [id number] #### [facility] (DEFAULT) [address] [place] [address] 09979 VLDL. 9 mg/dL Normal 5-40 [facility] Comment on above: Performed By: #### 3 [id number] #### [facility] (DEFAULT) [address] [place] [address] Progesterone LCon 02-11-2023 Progesterone LC 0.7 ng/mL Invalid Interpretation Code [facility] Comment on above: Result Comment: Foll icular phase 0.1 - 0.9 Luteal phase 1.8 - 23.9 Ovulation phase 0.1 - 12.0 First trimester 11.0 - 44.3 Second trimester 25.4 - 83.3 Third trimester 58.7 - 214.0 Postmenopausal 0.0 - 0.1 Performed At: [facility] [address] [place], [place] [id number] Bibi Irwin PhD Ph:[phone] Performed By: #### 3 [id number] #### [facility] (DEFAULT) [address] [place] [address] 86787 Coding Summaryon 01-17-2023 Coding Summary HTMLBase 64 HyzlpqlrKMp5hRq+PGh lYWQ+AX8KFJFlK81qkT OhgQ3uH9NCPOuXZcigX DYMJOpFYvQnmoHcCX5d aXNjZXJu IC8+PK8cKPSjDkfuqHY bf7L7iSH4W46nwb8uRU oxcKG1EVYcMbSyavuft 0opsKk0UEmaUgxsDcHj QMZatF73RFU7xS88Ia6 0jFZqyNZjq4dsnYt2Yd BiEKXxSDZ9xKfrNGzvz 5GwCDZcP68lhWNze2Z5 IGNvbGxhcHNlOyBlbXB 6iV9qZAfdvltbi3axqe dvFtf0jj94fHHfi7E5n AP4Q6PgyaP2BJMnhLFq RrdiaGJEbI6iwxyun5z euydmGyCtDKRxCYe8BC p5AYUclCipOhKaGK14E LJ1VLPtwjSvC3GdVPGd xDiwIcF9g6C1Ue9AT5D SAvdiU7DXDUVMVVmmdX Q+NZ45sp24M8RhDaowZ jq0RPNhXCM6hJD1hY8s YMSeKDter7R3wPO6W7V hleWvmp4fr3qcABTfBK qjE15qaNGtx3D7EOUwe EB7WJFqbBenHpIeiH63 Oyc+KSCtePytc0FaMhr kr1aos1ittJt4FqqeGM KnqqMzwNulDWL4l4YkH m4tTILmnYI6oFF4xQ4j EhUkCuG3TPitT894UeI zqLNsJwapX02dD0MyaY A+PPXbZbm9EPRxeMtsG R1qW3VwPIXdubctaMSg bOofNU7qOQCjrrdaGMR hgP0rABBrF9w7FuJtTd H0OPugU5UwCKJyfzdjU n70nI6xEsDnYeM1PKvg D6VlorK3BSJezJDuOCx qJME3W42qt3B7HRVdMT DsQKC6vKV1dB7zlGjgz jogbGVmdDsgdmVydGlj TIzfEMdsN109NOMrhYt nPkNvZGluZyBEYXRlOi AgMDkvMjUvMjAyMzwvd GQ+JQUcWQL9aQjjPCPs pHDnLPapBq2lsAuxdVe nNO1qJYQvsakhAOOwtS 2dAOMoiCLppSveXM1nO WOntpiya716QmFlGVG4 CHRfrQRzK7QbdV4aQrX vSMCvBNAyA7JumKAcXL ucP193VXjbCpG3ANRfg cJdD0GcWIWclRyvTmR1 m7Z4Fe3Bz0UsyqraT8S sqYRoTaEiAsdhUOn1A2 RkPjwvdHI+GE71PTIjZ X84VAa8DVT1hPseBUvu XIWuY2TqzU8rRyXpEXG kZGRkOyc+PHRhYmxlIH dpZHRoPScxMDAlJyBzd NjgMN7pSa3xQAJxTATi sYnaqJNxSiKpx7isRQZ yDMugKP8poAbzL3TvlQ Y1RXCcu2c3Wk57B45tU 3JvdXA+FNOvhWX9sQZ5 tA5uRoErNuD5XBlnF86 4DtLfiHPqRldmf2ibp5 ibtKk6MvI8WXOnovBxa ApaXPM0j2EeBi78L30f IHdpZHRoPSIxNSUiIHZ dnVbjgv8hpJ2xCa2+PG GeiUO1lNT9oP6fHxKkK aV7VKqdK282FbLzvFYi Arana3lic8xiqNm4YlJ hVQRkteLmmOscFZZ9s9 LoLy04X5JzrHwdc4EdX lq3to87nEAzi8R6pRQ7 B9ZmADJdwjwtcBQcrXk jSJ9bFPMawrblTUMciU 0pLCAiU3c2OtLfQtW2F OlrU3InnqQ2NUGllNCy PHBxuCQDzU8echmuy4m wtytxWiGgYUWvMJv1MT p1HDJepHdrOtApSTN3J iT4ZDX2iBZohB3lkSew wernlT3pPiy+RYQ6tHA toIMAHF9bKpgusGV+PH EhZPN2iAomDTjoFTHkw D8jJLBdN5f6GdTlSdC3 QUfuB5FbzhL7TMWpiIN dORGgfFEUqQ6wumuxt1 npycttGhOqGOGyZTp0R Ke2HOSumLknWcIfUHI8 AgP4FLK0uGGppH0zqIg afljvpJ0zCnr+QmlydG uaRNO7AZv6S8IjSjd3B LPceGnqTW0ewNCpNEkt Mw9uePcyrOnbYD3sLJE pvjznq389XzUat4mpZQ CatJSxEHcdLZM6P19pb 8V0FCJcGOKjEUP4xCN4 yE7soUxldaimxYFcgIq gdmVydGljYWwtYWxpZ2 88WZOafPabXfAoOAl4E 7KyDsr3EPMylOkqSX7y iERhYPteVq6vfDhmeBd uNS6jBJLfhbdud986Gl Hqm7uxRTHlyQBzOWsdS SN6A83fk5L7OZJgJXCq GUE4rZL3vZ6zdLvjpwi gbGVmdDsgdmVydGljYW paVMfhU103YAVwbYzaK eCpfUb4G8QyElk6BCGp fIjaEU2kxQXuWShhHj3 dyBjafVusKW4hQAPcya xth449XqNvf2saBEEvp YCmVAcfLXL9T85pp9J1 SCNxPVRkAFM0dCC1mL3 hbGlnbjogbGVmdDsgdm BwoHlpNTebDPmgJ820O HRvcDsnPlBhdGllbnQg REfcMAv4V8CdFjaawNJ +PE26XKHwMZ73rPVblX Wkg8sbcGd6EzRlJZBkC VC9bBprLTzpv6EkBXPs W09zrMDst6I6GHLybBa peYShPdVlwJT8hQ7cQI kkzfqwg3pzxpnaOecus 1ivof52zL19V59jZVjm ZHRoPSIzMCUiIHZhbGl jbr4tsS3yAo7+PGNvbC C2kGK3wE7pINVxSgN6O ZpvD402QuKdmCJbVocf p5ctn6gkzZy6CyU8SVO uayXgdOvzTYN7x5KkZp 06N54uMOtjUBAbNGQhQ IQgEUYtvBwfbq0wgS2d Ii8+BRChpJN5jGQ1mQ0 bFmJnDjH8CUdgN298Zn KmqTVfGogsF96oD1Qmk XA+AQXhLxn3WHBtxUog PW7wmUWbZWonOv0vNOY 7RpWcVkEcHXjtB2SqWV PafzxakegxlBQ2BCOrE OUqiX56Mr1xdWqgKIKi zMFWzH3kabptg2ddwzk mYyVeRHOmEZe2JDr9JU LerFqrUxOaSFJ2JzC2M KQ7xYVdoV9ddOzlevui gK1jN7QsRLHxnsmrDi4 0pY9hJeFpBwV9OKvmBt c+QkFLRVIsIEFMRVhBT kRSQSBNSUNIRUxMRTwv dGQ+MDWhZOV8uQxgBMo tYNVhsL3zCEPaY1q2Ks FqVqG9PSjeP1VoSNHlp zgjWm79tX2zTdHiFzF5 DCeiE3LsoaZ9LSQpsHN pJQyvFAP7C10di5L5RS KsWUToWQW0kEK9mG9ur GlnbjogbGVmdDsgdmVy aXqtVCfjAKjdO231OAW siQbsDpFaWeM3AbNeWY V1C3NfCch3JHHosMihR H6uvTJkXMtdPl3jxUoo kJzySX0fNGKmmzksVDV byS5fYSLjaTMfaGsrWI 7aINAxtxjnk605ZjGlL VZ3UPJvdIKgM8BnfP1b XeFjBEMhOTXbZ1PymQW xIKmhF717ZXsjBoD2QF ElsoLnW1HaGEDqqIrsA mM3c3J0If5sVSYJXGVt czwvdGQ+BEMzJXQ5aKg xLIwoMVMbvB1xXXSyI8 w2DcOhCyY1VWwzW4XiP CLbcbdxWs49yB9kAhOn SqS2CJuaY1VzlqQ0TMJ bqDRhRIscGHK5C19mc1 T4TKRuHHOwJDX4eCH4y N0boIunnfdjxKPgsXvd szLgaBvsOKcjZVlfO83 6IHRvcDsnPkZFTUFMRT wvdGQ+XMVkHQY5lAgwS KmvWEEvyK8fGLHoU5t4 MxYpYnE0SYptH2NhZUJ geuxkHk47aW3nZvRtPc Y9MIpzB2GtbtC7SRZbu EJkUVwkEPX4N22sf1T2 BDUiIGKzXOB7dON4cZ1 hbGlnbjogbGVmdDsgdm HhcYyjFEpfWCisZ739U UFlwNvjLr2JCG94OE40 J5WqExeriQOlmBS+PHR hYmxlIHdpZHRoPScxMD BbWlAfkXfiRX2kZt9aT GVyLWNvbGxhcHNlOiBj l5puSSYqOUmgMR0mtBs zW3GfkLY2CVNnz1o4Ap 80M32zW2TqnTH+PGNvb NC3lXJ4pX8dZlNgMpI5 HWixQ504UcApcWIaSzi br7zzy5nfuAa8IsSrSJ KgijDuyUvoPLP9s3AhF o75J41qSWnyMZVrZMTs QHHuGEQdkBqzzi2ffF0 wIi8+QKKgwFF5iKN6cB 9yLlLcCnT0CHbbL862H uKvnSEuFzynX52dH6Md dXA+IVGrXlz3XDVqpCp fNP9qlDJzZZwoHf3aGP I0ClSaOoCkZWauT2ChA VJedtoedkpnpWX6CLPs SNUxuQ39Hv6gnYzeWg3 zUXAaSBQ3HATevWXmD9 GnmN6eSfMeRMTzZFTqR 7HcnCKqRFyyX808BOrc ScE9ESBxziJdJ0DxTOX tkPwkJeE9j0R5Vu9KuB ptyJXvVK1dMhDwZGy4F 5CfRoq3JVFgaCzrAD4w zWTjOUirLv7sqAgkqMb aHC2sVJXbvlmty828Nm Bnm3onROMoaIDxNVihH HY6S19lw5E5WAZdVGVf NVE7bUN4nC2neFvdzel gbGVmdDsgdmVydGljYW wqICdhT710THMleEuyG iDVKvc6H1NiVys6HZSv zYbnOM5zuUInNNnvNk1 glUnsgKaaXK3wKPLwfh uhi213RxLfa1yeDBYov JFwHYkxUNA4Y87be9G2 YGTmKRUqPTT7mTY2uB2 hbGlnbjogbGVmdDsgdm YknDssMXbbUHjfQ139N ZFjkZahLx2QDiy7Y6Uk Ohp0BRTjiUktBN6enEH eZKeiWn6qyJdtmHunOF 7tYOMwrilpz570SxHoh 7dgPAJmzRYuVLnrARX5 G76qs7L7CVNpBTEvDTR 4tNT9mB8huAoybqkmjE VmdDsgdmVydGljYWwtY XbaA768YHInaDhgDrWk eWVyOjwvdGQ+WY71zq5 7F6ZuFquuLnz0FEObKO T6gYH9vE3eEIQgNWdbz 0N4yFZ6V8XyakGvee6b b2x (more content not included)... Normal [facility] C Throaton 01-12-2023 C Throat Ordered by Discern. Normal throat dong isolated No pathogens isolated Normal [facility] Comment on above: Performed By: #### 0 [id number] #### [facility] (DEFAULT) [address] [place] [address] Progesterone LCon 01-11-2023 Progesterone LC 8.7 ng/mL Invalid Interpretation Code [facility] Comment on above: Result Comment: Foll icular phase 0.1 - 0.9 Luteal phase 1.8 - 23.9 Ovulation phase 0.1 - 12.0 First trimester 11.0 - 44.3 Second trimester 25.4 - 83.3 Third trimester 58.7 - 214.0 Postmenopausal 0.0 - 0.1 Performed At: [address] [id number] Bibi Irwin PhD Ph:[phone] Performed By: #### 3 [id number] #### [facility] (DEFAULT) [address] [place] [address] ED Clinical Summaryon 2022 ED Clinical Summary [facility] ? Urgent Care [address] [place] [address] Clinical Summary PERSON INFORMATION Name: BRYNN WALLACE Age: 22 Years Sex: FEMALE : 2000 MRN: Acct#: Visit Reason: Throat pain - Adult; Body aches; SORE THROAT, HEADACHE Arrival: 01/10/2023 13:26:17 Discharge: 01/10/2023 15:12:00 LOS: 000 01:46 Check In: 01/10/2023 13:26:17 Checkout: 01/10/2023 15:12:00 Address: [address] [place], [place] [address] PCP: Leah Azar PROVIDER INFORMATION Provider Role Assigned Unassigned Genesis Calvillo PA-C ED PA 01/10/2023 13:47:57 Kristen Velazquez [employer]ULT[employer] Nurse 01/10/2023 13:53:38 VITALS INFORMATION Vital Sign [...] Adult Follow-Up: With: Address: When: Leah Azar [address] [place], [place] [id number] DIAGNOSIS: 1:Systemic viral illness; 2:Viral pharyngitis Patient Understands: Comment: Normal [facility] ED Patient Summaryon 023 ED Patient Summary [facility] ? Urgent Care [address] [place], [place] [id number] PATIENT DISCHARGE INSTRUCTIONS Patient Information Name: BRYNN WALLACE Age: 22 Years Date of : 2000 Reason For Visit: Throat pain - Adult; Body aches; SORE THROAT, HEADACHE Arrival Time: 01/10/2023 13:26:17 Phone: Primary Care Physician: Leah Azar Attending Physician: Genesis Calvillo PA-C Comment: Patient Education With: Address: When: Leah Azra [facility] [place] [address] Sore Throat A sore throat is pain, [...] these instructions at home: Medicines ? Take jffz-lwd-zkrpbno and prescription medicines only as told by [...] and water are not available, use hand [employer]. Contact a health care provider if: ? [...] can cause a sore throat. ? Take nbbd-pkt-ezbmymg medicines only as told by your health [...] provider. Document Revised: 07/08/2021 Document Reviewed: 07/08/2021 [employer] Patient Education ? 2022 [employer] Viral Illness, Adult Viruses are tiny [...] grow ou (more content not included)... Normal [facility] SARS-CoV-2 (COVID-19) PCRon 01-10-2023 Internal Control Pass Normal [facility] Comment on above: Performed By: #### 3 [id number] #### [facility] (DEFAULT) [address] [place] [address] SARS-CoV-2 (COVID-19) RNA HERBER+probe Ql (Unsp spec) Not detected Normal Not Detected [facility] Comment on above: Result Comment: Perf ormed by PCR methodology. Performed By: #### 3 [id number] #### [facility] (DEFAULT) [address] [place] [address] Strep Aon 01-10-2023 Strep procedure control Pass [facility] Comment on above: Performed By: #### 8 [id number] #### [facility] (DEFAULT) [address] [place] [address] Streptococcus A Negative Normal Negative [facility] Comment on above: Performed By: #### 4 [id number] #### [facility] (DEFAULT) [address] [place] [address] Progesterone LCon 12-14-2022 Progesterone LC 6.2 ng/mL Invalid Interpretation Code [facility] Comment on above: Result Comment: Foll icular phase 0.1 - 0.9 Luteal phase 1.8 - 23.9 Ovulation phase 0.1 - 12.0 First trimester 11.0 - 44.3 Second trimester 25.4 - 83.3 Third trimester 58.7 - 214.0 Postmenopausal 0.0 - 0.1 Performed At: [facility] [address], [place] [id number] Bibi Irwin PhD Ph:[phone] Performed By: #### 3 [id number] #### [facility] (DEFAULT) [address] [place] [address] Provider Orderson 12-11-2022 Provider Orders [id number] Normal [facility] Coding Summaryon 12-03-2022 Coding Summary HTMLBase 64 ObriipshVAj5hMl+PGh lYWQ+JO5XDXQzU17saA XouU6wE7CIGLsUOtslF BLLRKgFDsGgdqAlMK4t aXNjZXJu IC8+GT3zYHKkGmfqiJF im8U9vPQ2V08yyu5jKZ kuxAO3COIyKlJisomlj 1zleAy3QEfhArjlCpIm UTJvcE44NPE3zQ23Tj6 5aDOoeQUlh4gdcBi7He VmHDIsVRA9zRhbTHwjw 9AjPZXeI08kuURwk1F0 IGNvbGxhcHNlOyBlbXB 9mK0aPPbtjlomc1msiv ayYci0ij74cEIxj0P7e QD3N9OilxA4XDFrcLXc HlpqrSXVmV6fazdel8d ikvsfMuXhJNRoAEq7DR d5JCGmmPzdPfGnWR62E MM7IOLakuCkT2QoLCNh qAbrAeD3o0Q4Du9RZ0R EVcfpP4FBECCGAWwdmJ Q+JL96zn15U6XsFnocP zu2OPUcKAN6fDP4hK7t AXFpLOrcu0L5uEL8S6H watYktm7me4lbGJXgUW zmE79meZJot4D4XDOgd DC7KOTocIkwArCbyB96 Oyc+DEIbiXpfb1VvQxs mq3kgn4fkrSd6XunzTZ SlvbJseIpgBVG2w6XyP k5kUONvhZK7nOR0sE5p SrTtLkE6BWwmD699OcM kpIDuWjhmB39gP2PvlM A+FCMnWrn5EMFlaYugG Z2jW2GzKOMnmyleiUGs zYrpES3dCSWzdvngMXH urK0zZGAlC6k4SaAaWm L9BQutG4NlMHXxcsxkV b13iU7cEvVwIxD3OIqn M6GikdP2FWYunRCtTKf zXZE0L60ni5D0BWSpRR AkPYY7hMN9eQ0nxDgrn jogbGVmdDsgdmVydGlj BXsnKSeuA789YILfeNr nPkNvZGluZyBEYXRlOi AgMDgvMTEvMjAyMzwvd GQ+XASfOLB8tYzlFSVi oIQaWVlxXj7qyQxrnAj sIH4hVRTksckuICDmnC 5dWQIypARkoWdjOT7iM DNiqyvrt395YbYwPDA2 BWUkjZOtB4JyfQ8sThQ yICEbISXwJ0YkmKBzDZ ehL111MJvqQxJ3LHXzd oSzD3AcECJukTanOvE4 w6Y5Rt6Bk8JqjacvG1A xvYVeErOwNpsqZLj1Q9 RkPjwvdHI+XK92VSCqA U55ATv0BFM8wTsaDUkz CKMiJ7UomT8rEaIuPOF kZGRkOyc+PHRhYmxlIH dpZHRoPScxMDAlJyBzd FquLX8cFo5tPTCnGGQq zSxioHAtOdGot5ctCPS lIYolDK2ucVurW2EkaW M7PWFtb1u1Rg99S87kI 3JvdXA+LFYfrLN2wIL7 qS7lOzEpBxG7XIxeN55 6RhJfnWHvSotpc7ber4 xqbSx2PeR0GZJvefHjo PtbYNP5i6ZlWq67S07p IHdpZHRoPSIxNSUiIHZ uqXhnel6xaR8zFa2+PG LkuQC7mWG0hR1fGrIgB aR3VDbpG620TxOwzKNq Vpnsq3usz5hcbAk6ToW iBTAcjtOeoSdbHWI2d8 ZuEd88P3BdfXwjj7RxG qj6nb62mQLms3X3eZA2 H0FqXSBtcessnBYrtHq tVS5sTFRgnfcbONEgdD 0tSTIcM0t4NcJzQsJ6V ObvQ0HysdS1MNSyaJIz QVSxqGNZtZ6tiipee1q yyeamQlOrRBBnAQj5YQ t5FAUymUlvRpIvAZD9N fF8LND0nABhfT3cuOcx dgecbQ4tVpc+OSK1uKK xyMWDQH9tGjdghQF+PH WeVAH0eZrmBWhtGRCxb B1uWXIcP9y7VtJiZtL2 GOeyS5VktuM3ITEvhQE qDEBlfFVHhQ6fhnqsj0 yuywzrAdRvYICdUYk5M Tv1FIEadUzoSgRqVQR3 CwZ4EAX7vGRhxT1hbSs zjficyL3dZcn+QmlydG wcAQD6LJa0E4XzWhz3N MHohCtaBA9jvFKgYOnf Qo5zhBfnyLqvPJ5rHSB dybczv171JcPuu0ajPS QzePAiLBoxWXY3B07qb 6K3USApTREiHBY8oMR3 lY2htPvnlslfpPOvlXp gdmVydGljYWwtYWxpZ2 87MSAzlBtcWmZyNYh7O 2MfNjg6ESKzwAeeID4k eDUoZChcWb7pzDjpdPg bES3kGIIhrwbwj847Dj Jey6siFZPydYOqMPxgP LW1M14hj7A4CNUdRGXi LXM4xKY8wN9doFifsnb gbGVmdDsgdmVydGljYW xsJUcuF837VQIjzNsnL sSejCp9V1WzHhn8VSYm eLurKG6vxAJbTXkoQc3 ykQbwhMutEX6dLMYobl hno841DnTzo8gaOBZqs VChSSwjMQE6G80qa4H1 OBJmIVUaGTH4lKG4kA5 hbGlnbjogbGVmdDsgdm TepNboEMxkWJmdE875A HRvcDsnPlBhdGllbnQg FEqyZBf6A3UiVjwaiIG +DQ86DWPlVT39rPGamW Rhb5ngdYn8NjMxIDAwI DM7hTgjXPrrn8WqAMCa B09elWWeu4Q1CWMpsLw afWTaTkHcgHD8kY1oTY qcrmfsf7vcwsdaMcmug 7oopx91jX12Q33gYFee ZHRoPSIzMCUiIHZhbGl slh4bqI9rCn0+PGNvbC B0iPS4iV7sZUNyFaK8F UhlH482XuFcoSFvJkhr a4mzu3ausFo8KcM0EGQ kudLsuNhxXVU2f3ZlEz 35K07yPBuyAAApYFOvN WTfQRHvzEcjwl7noF4r Ii8+VDWprAR8dLA6tA3 eHbKyQoK4YAmeK709Iq UcdNPiLtuyR50uC0Zhu XA+OTBxBnv2NCVipRyu QZ3icLUjNSfjMh3eOYV 7OoYmBlVbQDwuR1HjQQ QqbvqynnhyzNR6ZJFyI UHojC32Hc5amJcaMVYq vKVUcE2adizma1wwroy kArEvQEUtSMu3EZn9BM ZaqTozYmAcZZT8IlJ0U AZ4hJJdnW9mlEpuihgl iG4rD5VgOWBfaetbZr5 4iA0vUjLoWyW7ZJikVq c+QkFLRVIsIEFMRVhBT kRSQSBNSUNIRUxMRTwv dGQ+OQAfJCJ1bOgtFPs lGCObnR5aNRPhA6q4Xo MbGcH4LGotE3XbSOEfg rivTl69qG9nNrMiHiI2 QKhgC8NfbiM1QKJigRG tUCajPFI7U95fb5E1DM NcBGEuYPF8nEZ9wK3ci GlnbjogbGVmdDsgdmVy hHhdJDgoWXczK510RUY xrEtiGzOsZkB8OaSiUC Q0W7VxKcu9IOSsuAtrU H4xyQEuHJwnXv8ctDdp tSrfCA9oPIHpdlorKUL pnL6qQRRqyQQdmVviOL 4yXZVhhkdkv408QpVoS GO5CLZpdWJmZ5GkuK2w JvNeHYDhAWRzY2ThpKT yGQheF108DIglViI0CD DvdxTjW3SdVIOgkMhmZ uP5j5N2Kf3rUDJJZUZa czwvdGQ+MMYtHLO8dCf yYPumMCBpcX0qEUEbI6 y6HlYoTpT1YIshM8WxW PYblvaxSj59sY4dDvJy MdY4DXzvC3VelmJ8PSL uoNDyNStmRWQ6S52ei2 K0QMLaHKVaIYF8yLN1g F8fxEnckhsezPToeHid bySgvSqqPTdpSKriF91 6IHRvcDsnPkZFTUFMRT wvdGQ+YVPxUBB0jSbrD FusLIVmwW7oYXYgQ2j4 FzKmHpF0IAggI8HyYUT odfnaCa62rC8vTnUnTx E7TMxrR0NoeoC9EPGjr CHjAWetVQT7S13tj4Y3 MTYeTLZfBCS6wHA2wM2 hbGlnbjogbGVmdDsgdm DjxFjhRIdkCWjrS132N UMzzTzoUv5TKF35SI28 P9ZsXztvwYGzuEC+PHR hYmxlIHdpZHRoPScxMD KgByHlxCgbJJ9tAq7iD GVyLWNvbGxhcHNlOiBj m8kaCFJsIFjaTB7jjPa mE2JrrUY5HLQir9h9Pp 65Q88yI0XrcQJ+PGNvb KO2wLF3uZ2sYqKcAfF4 NBasB776GqBeyVTdHrv rs0vgt8hrhCf5WpSdGR MldnOwgKmuWSE8l2VtS s82G89yPCyfURMvNAOx SVAjACGhtAlqqu4fkX3 wIi8+FOVwyWN7mMX6oZ 8zMvQaPwS4HDhpC603R fXatLPgWnkyD13oY8Wt dXA+WCTgAvz3GMSdtTw gZI4yuMVeAXlqCc4vHG J2QwPmKjIdOAcoQ0CtD DFwrfdllnjjfWZ9YUPm DGTvnX45Mo2nzVhpSu2 dHBMfEMI8SHFlqTBaF3 UntU8fCyCnSJTrWUJsL 0KqwROcGOhfR372JHot WvE1AVUiarKcB5BsNCC twYunBqH6x3Q9So9OgW juzXBkGH9kMkPoXKg2N 5ReEvr8HZSgyHrdRL9k wNAlNMoeNe0vuShbqUe gBW1sSLFhdsybc908Ip Zkn7toZWHeaRMbSYrzH BV4L26ic9W4NBZqAORy QKB1sFO3kX5ykLyirzy gbGVmdDsgdmVydGljYW lhDZsjI741ROYcwZyvD qTKKrl3Q9HrBww5EGWh sArtYT8pnMAeYCvjRx8 mrJygyAumLD6uEHJxwu uuv541FoGeg9qcGXVlb TWvTHteVRF1P72yl6W6 CBLuYIDvWYP5pSH8oD3 hbGlnbjogbGVmdDsgdm XlgOqvWFyyHGvyS587L OGbtQheXv5HIqq7V3Ue Grs3RSKuyXbvRD8nzCB mGHezYs5flCwnbBieCR 3dMPPnsktrj604EkFea 1kgXWRnnBMmVZtkMEV0 Z50nx9A9VOKrZTKlWCY 3nQX7gA8wfPxnhlfkxM VmdDsgdmVydGljYWwtY VucH520XFXtzEvyJbQf eWVyOjwvdGQ+RJ02zr3 2M3LhZbqyZjh4YBKbEM P4fCR5bN6tQSNoGDyai 9E5qLE7U9HoewUrps6i b2x (more content not included)... [facility] US Pelvis Non-OB Completeon 11-29-2022 US Pelvis [...] MD 11/30/22 10:38 a Technologist: Geno TORRES [facility] Provider Orderson 11-26-2022 Provider Orders [id number] [facility] Coding Summaryon 11-22-2022 Coding Summary HTMLBase 64 DdgrdvnkHXy1qYx+PGh lYWQ+WM8DLFFwE75jdA UymI5rE2XJIVaVLhfhV UYSFMsIZsJknuRyXB6m aXNjZXJu IC8+XL0oFLOgHidhlEH ca8X3bGX8R40ohz9zBJ bfbPC5ACSgQaLewxgoo 1sakQh2BRchAwbsLvPy UFBeqL82MFF2zK98Qp9 4bLFhnTCjn0oauIj4Fa VfZSZjEIV5pZruWZxds 5SrMPHeV11ioCMoj9Z5 IGNvbGxhcHNlOyBlbXB 4eH4sPVbteqili9xffe kuJsb9ws17tVQtz7C5g RI8K8UbmyH1NAEpuZEh AksviPDOhA2tqsepg2j hynvtNdKjVUVyFFm1SG r7IWKddFfgKzZtGI79M OW1RPJithCyT6JtRWDk mZruLaJ0j4Z8Rf5YS3G PAsvnW4JVIOXJNBcphP Q+JJ36ln77X4XnZtddF kd2QUCtKJK3qUS8cD0k HMMhEQdum3Q7lTP0A5Y zngExbb6il7cuADRwGL yoQ34cuLHvo6H9MMPwq NQ2CEQyjQisJcTwoF00 Oyc+JPYjfGetg8EmXsu kj1rtd2kqcPj7LpfsYN VwolVaePdyIGB2f5KfG w7rNOTfsOL2nFF0kR0r TaCtZhE2GWuhL642TkX uuPWxPdxqF06zT6AkqJ A+YUQnIjk1KTGwzYyuQ C1sR6XkBEJaqqwkcXWv uNokEM2qYRLkpicnNOK krN5yFRXjN2f4YqVqCq S5PSefM5OuJSGmfquqO h00nB1iDfKzKpO9OThh G5WuefI3WWTfoOFuYCx jFHA5U44yc8T8RBJkBW FtYRG8aNJ2yQ5utJqbj jogbGVmdDsgdmVydGlj WEsqXIlhK248VLTxpEf nPkNvZGluZyBEYXRlOi AgMDcvMzEvMjAyMzwvd GQ+VJDhPWX2aEeuSETb mZSlXXbvFm1gyQaoiMo qMI5rTZEdvczbJBZytP 6aCZQmyHIkeJztJJ5sX GHylttsd854IxLbZUQ9 ZNRxhCYqH6KqbM4cPpN wCXYaZLHnK5AsdWSsJC lyK061JNzyYkM6SLHwi iQpN1GaUBGyeDtvGaC2 q3E2Np9Zo2CtcydpA6R cvKUpTlEcNkbyZZr1J6 RkPjwvdHI+MC96FZEpZ X90HEu3YTO9kXgpYKdu YKLxR5QldO0zEsHtRUS kZGRkOyc+PHRhYmxlIH dpZHRoPScxMDAlJyBzd OpqFM3nJb6xCMFcOFLf vBgboXCbPsQbc7zgTRL yZYiyKS7fnIjvM1OszQ I2GTUey4a3Ps90P51kK 3JvdXA+ILCobBD8lWA4 vQ7hCrJgFlS7ZFbyX68 1QhBpvQPdWifud3pwi9 mzbGu2UsP0THAjhpRbe SgkOZX0q3GfJh09M74v IHdpZHRoPSIxNSUiIHZ tmHjqkv1ahM0uLq2+PG PydWY7aFY6vL0oJeJnC pE5PRolM594KlXpvMCe Uxggx3lmp3xxySt8TyG oMMScfgYdmCapNDU7f2 SiZk65O0UktVzpx1ZoF uz1nd96wTXcx4Z3zXV6 F6JjIGOyiqkfyBWhyKz yQL5eUKZiqxueLFWwtA 0sYFJtB1o7AzQmPvS1O NqeX4OqnqU3EEJjuHTq HNVzqQOYcW2ylsgdc1e rjpynXnUeSMAoILl8QE i6QUOdbPaqUrIaCAO9I yV2DXQ4pNHblC0tkIxh evgqfH1yVdi+VWX1jHV ejYUGMO2zKhgohME+PH VkWBV4sFxcHPtvQHUds O1uSCSyK7p9RkUkBbX7 HHiaF8FvwzR0TMAujUU rIBEnyTDTmW3kbzpwb1 dtocgpKgIaITMkDJr4A Gr7BIBwlRknUiEsUIO6 BnA9QAZ6bDRoiN7liHc xebeofK3zVcz+QmlydG aoHAH7SVm7C8NjGte7M HJqqDeoKV8xfUMwOJaq Qi5nbMzgcNqgZT5hCOM aziqhh496StCgz1cpZT QiqYMiUUulNFG5Q92yw 0X8ORKlTCNlPZV5eZD6 wK1ggSylrpgzeBBluVd gdmVydGljYWwtYWxpZ2 88EUNolIerUgAhNTp6Z 0SaMkt8FYCunCgoEY7h hZVxYGymIn1nfQgahXg sXN8kJEYhpyanq692Zt Wdo0kuXTVatNYyDMohV QU8L33zg5I2GOKhPMIu YID9yZK9gN6dvBfwsht gbGVmdDsgdmVydGljYW ygCUpsV086TWIgiQykO uSqtAo7F6ZmFzl2LOAr pDmuWG9wnOMqUWjfHm8 jhZjfkMlcCI6bMHWxxr qex190FhXec1pbHYQwd TVjXVlwRHD5Z34zy3I2 NYVkULNwPFP5wBF3gE4 hbGlnbjogbGVmdDsgdm XpkNtqLOxrKOqlL544J HRvcDsnPlBhdGllbnQg AKgeXYw6Q6XoXvqbrIX +LD83NAJlTZ59sSMtfH Nsh7oyuRh8AxFcNGAoG KF5tXnaEYwgq5AnXALb V74jgEDvz0V9BAXdqHl awPVyNnVukDG6sS3mFJ tnitrvh1qemdybUxdfu 2faws58dX54C22dSDon ZHRoPSIzMCUiIHZhbGl fhx2jcF1yVj6+PGNvbC L4uOG1kR2qOWOcQuM2J EwlT627VkVwrCPnQaxj f8vkw6lwpYb5HpI3XLQ mvkLjoYmaMNW2i1TmZn 02E43eYUiaYDZqGIFbN OKgCBLomOenzq0imG2m Ii8+QGFxrAN4hPB5xR0 dMrOlJcX3VCnpR116Sa WzwRUdCqnhO24lH9Pxo XA+WLFiXpn6QIIlhRxm TU6gzTZhJVbqCf2iVAP 7YrYpKdXjZHmoG8JgBB GmxikpttjrkCL8XESaQ MNrzO38Hg4fzYlnSNLn yKIByX8lfzefn4kwwja vMkMfFEPiRIp0CWa3OT OvdOejOgUuKJU0RvP8B HE4kJWouF9zkSfycfcy eW2lT9FqWWEugtkdQg7 2mK4tHyYiBaG1OUtuRp c+QkFLRVIsIEFMRVhBT kRSQSBNSUNIRUxMRTwv dGQ+ZQWlFZB3fJapYBj tTKSqtB2hMLQiQ5u4Tb ObAzM1QSulB0LoMSJss uteNz96zF0xOlQfOnO7 URrpF6SpsbT8NVKunWM oZYstCYI3W52wq3K6MQ KdHSMiSZH9uDR9nJ9oh GlnbjogbGVmdDsgdmVy xVubYSyvJOdzF089FPV mvHssHgWePnJ7FzYvNK J8I8ErSul7MHNgvWgtX P2nhFEtRWbtFy9doNos zRtxDH8oZVZqlnomJXX gvB8uOCBatRVbdXhxMF 5fEWNqcahpi406VjMpZ CP6SNPffFUbL5CxbV5b WrGmMSWlMGDzN6ApbTJ lJNhqE552WQvsEaN8TV QsehOxP2QrZLBtcVxjH rP7x1N2Ec3kSKJHPQMx czwvdGQ+AQNkTBW6yQj wAEgnBKQqdU0oJWArX2 l5EkVdXnW5BSwtJ9ImU CJvaynqPw24pK3aFxNe XtK3ZJyfS0SgbhM3PMQ nnEPuDRgiSNC9M56vy7 I9RLMcETUwQJI4bHO3r C6myPggzkcwjGYvtGfu zhNjoNlbQJqdUCkwF28 6IHRvcDsnPkZFTUFMRT wvdGQ+CXDgRQP5jJsjO DzpRIIswA6kNIFpB3b5 XmFdTbV6KCbrC2WxKCX unmyuHs34aM5lFoYyJv L0HOisU8NfwuA7JDWep NGqPRhvQTI6Q12ho5S6 HFOiNVAbHZM7pHE1mX2 hbGlnbjogbGVmdDsgdm ZaiWysIAhcDQzvX939K MTlpTzhKd5JBX91PO79 S4GxEszeuTUiwSX+PHR hYmxlIHdpZHRoPScxMD ZhFhWifJnoHI4gYm9dH GVyLWNvbGxhcHNlOiBj h0dfVSLyYAnuRO7upGy eF8HhtKG1YMAcw6p8Ty 63Y58nZ5BxpJI+PGNvb IS7uBY0oJ3sGeGhKhT7 ODxgE495DmTqaDCpKml mz8dls3kqiWo3SxTdQM LfvjOlpYksEFZ8h3KlH t30V77fULozYRXwMSLr QKLpANAiaOclwa0srR0 wIi8+YJRyjOJ3fQK7mX 3uOxDsGkU7XZvfH677I xBxjULdGwcoD26iV8Qh dXA+BKCyQmn4RREggLa kUE7kzXNtZUbhAu4bXU I9MjCoEuNjMCwvR4NfE PCinbuauwrhwBQ9KJRv CWEybO39Me9ypKiaOe4 eTBHtIGN7HWKpzDYvD7 AtnU3qGpWvPFZfFRCiM 9CjrUJrKUtqQ294CXdk VnU6BEJucrOqB4IrCKK xnCchRwT0x0W7Eb0EdQ omiLOvJB4tNmCsNIr1C 1OmYmy6JJKalOvlCL8n mLDmDSzsRy7vkVqwfZk qFF2eGODhkecoc245Rj Hbx3fuJQPqaNFbBGrzL DF1Y85cq4W5UKMjSQIx HGH8qUU1qS1diZryyyi gbGVmdDsgdmVydGljYW xnAAunR513BIKysEfaU vJILkc4L9YxObx9ZNAn zOflHQ0beEOoCBznOe6 xfNufeYxjQH3eAHIotv hby617IuRqb2pySNYow WIkEOcrRED7Z23xy1J3 WRRoTFMmAHI7mLM5bM2 hbGlnbjogbGVmdDsgdm GpqEnkZKdjKOwoN374H RSlnCznHh0VTxc8Z0Ul Pgr3ROOfjPnnPT7syAG pIMcdWg4ckAckjDcjPP 2dYFAsporyi039TkIoq 9eiZSKopRCnLPumDUJ7 W32op0D3OGHlSWSqDCO 5qHB2pN2vvYuhurfibX VmdDsgdmVydGljYWwtY NwuR089INZorItkHrFu eWVyOjwvdGQ+HF07xb3 2T2FzNhlrQxj6SHGfAF Q3lKB0tC1lIKSfPEcya 8L6zWU7E8BtduSywm4j b2x (more content not included)... Normal [facility] Dehydroepiandrosterone (DHEA ) LCon 11-20-2022 Dehydroepiandrosterone (DHEA) LC 340 ng/dL Invalid Interpretation Code 31-701 [facility] Comment on above: Result Comment: This test was developed and its performance characteristics determined by [facility]. It has not been cleared or approved by the Food and Drug Administration. Performed At: [address] [id number] Morris Nayak MD Ph:[phone] Performed By: #### 1 [id number], [id number], [id number] #### [facility] (DEFAULT) [address] [place] [address] Dehydroepiandrosterone Sulfa te LCon 11-18-2022 DHEA-Sulfate LC 612.0 ug/dL High 110.0-431.7 [facility] Comment on above: Result Comment: Perf ormed At: [address] [id number] Bibi Irwin PhD Ph:[phone] Performed By: #### 7 [id number], [id number], [id number] #### [facility] (DEFAULT) [address] [place] [address] FSH and LH LCon 11-18-2022 FSH LC 1.9 mIU/mL Invalid Interpretation Code [facility] Comment on above: Result Comment: Adul t Female: Follicular phase 3.5 - 12.5 Ovulation phase 4.7 - 21.5 Luteal phase 1.7 - 7.7 Postmenopausal 25.8 - 134.8 Performed At: [address] [id number] Bibi Irwin PhD Ph:[phone] Performed By: #### 3 [id number], [id number], [id number] #### [facility] (DEFAULT) [address] [place] [address] LH LC 1.9 mIU/mL Invalid Interpretation Code [facility] Comment on above: Result Comment: Adul t Female: Follicular phase 2.4 - 12.6 Ovulation phase 14.0 - 95.6 Luteal phase 1.0 - 11.4 Postmenopausal 7.7 - 58.5 Performed By: #### 6 [id number], [id number], [id number] #### [facility] (DEFAULT) [address] [place] [address] .Auto Diff 11-17-2022 Auto Worth % 5 % Normal -12 [facility] Comment on above: Performed By: #### 6 [id number], [id number], [id number] #### [facility] (DEFAULT) [address] [place] [address] Baso Abs# 0.1 x10 Normal 0.0-0.2 [facility] Comment on above: Performed By: #### 4 [id number], [id number], [id number] #### [facility] (DEFAULT) [address] [place] [address] Basophils/100 WBC (Bld) 1.0 % Normal 0.2-2.0 [facility] Comment on above: Performed By: #### 2 [id number], [id number], [id number] #### [facility] (DEFAULT) [address] [place] [address] Eos Abs# 0.1 x10 Normal 0.0-0.4 [facility] Comment on above: Performed By: #### 4 [id number], [id number], [id number] #### [facility] (DEFAULT) [address] [place] [address] Eosinophils/100 WBC (Bld) 0.7 % Low 0.9-4.0 [facility] Comment on above: Performed By: #### 2 [id number], [id number], [id number] #### [facility] (DEFAULT) [address] [place] [address] Lymph Abs# 1.9 x10 Normal 1.3-2.9 [facility] Comment on above: Performed By: #### 6 [id number], [id number], [id number] #### [facility] (DEFAULT) [address] [place] [address] Lymphocytes/100 WBC (Bld) 19 % Normal 14-48 [facility] Comment on above: Performed By: #### 7 [id number], [id number], [id number] #### [facility] (DEFAULT) [address] [place] [address] Worth Abs# 0.5 x10 Normal 0.0-0.8 [facility] Comment on above: Performed By: #### 0 [id number], [id number], [id number] #### [facility] (DEFAULT) [address] [place] [address] Neut Abs# 7.7 x10 Normal 1.5-9.2 [facility] Comment on above: Performed By: #### 2 [id number], [id number], [id number] #### [facility] (DEFAULT) [address] [place] [address] Neutrophils/100 WBC (Bld) 75 % Normal 44-88 [facility] Comment on above: Performed By: #### 3 [id number], [id number], [id number] #### [facility] (DEFAULT) [address] [place] [address] CBC w/ Auto Diffon 3 Erythrocyte distribution width (RBC) [Ratio] 12.9 % Normal 11.5-15.0 [facility] Comment on above: Performed By: #### 3 [id number], [id number], [id number] #### [facility] (DEFAULT) [address] [place] [address] Hematocrit (Bld) [Volume fraction] 41.8 % High 33.7-40.4 [facility] Comment on above: Performed By: #### 2 [id number], [id number], [id number] #### [facility] (DEFAULT) [address] [place] [address] Hemoglobin (Bld) [Mass/Vol] 14.0 g/dL Normal 11.3-15.9 [facility] Comment on above: Performed By: #### 1 [id number], [id number], [id number] #### [facility] (DEFAULT) [address] [place] [address] 18903 Man Diff? Auto Invalid Interpretation Code [facility] Comment on above: Performed By: #### 8 [id number], [id number], [id number] #### [facility] (DEFAULT) [address] [place] [address] 33459 MCH (RBC) [Entitic mass] 29 pg Normal 24-34 [facility] Comment on above: Performed By: #### 0 [id number], [id number], [id number] #### [facility] (DEFAULT) [address] [place] [address] 80241 MCHC (RBC) [Mass/Vol] 34 g/dL Normal 26-37 [facility] Comment on above: Performed By: #### 1 [id number], [id number], [id number] #### [facility] (DEFAULT) [address] [place] [address] 38671 MCV (RBC) [Entitic vol] 87 fL Normal 81-100 [facility] Comment on above: Performed By: #### 5 [id number], [id number], [id number] #### [facility] (DEFAULT) [address] [place] [address] 13873 Platelet 280 x10 Normal 138-427 [facility] Comment on above: Performed By: #### 7 [id number], [id number], [id number] #### [facility] (DEFAULT) [address] [place] [address] 04900 Platelet mean volume (Bld) [Entitic vol] 8.0 fL Normal 6.3-10.2 [facility] Comment on above: Performed By: #### 2 [id number], [id number], [id number] #### [facility] (DEFAULT) [address] [place] [address] 15691 RBC 4.83 x10 Normal 3.70-5.30 [facility] Comment on above: Performed By: #### 1 [id number], [id number], [id number] #### [facility] (DEFAULT) [address] [place] [address] WBC 10.3 x10 Normal 3.5-10.5 [facility] Comment on above: Performed By: #### 5 [id number], [id number], [id number] #### [facility] (DEFAULT) [address] [place] [address] 58694 Free T4on 11-17-2022 Free T4 [Mass/Vol] 1.06 ng/dL Normal 0.61-1.12 [facility] Comment on above: Performed By: #### 2 [id number], [id number], [id number] #### [facility] (DEFAULT) [address] [place] [address] HgbA1c Standardon 11-17-2022 .Hb 15.7 Invalid Interpretation Code [facility] Comment on above: Performed By: #### 6 [id number], [id number], [id number] #### [facility] (DEFAULT) [address] [place] [address]28 .Hgb A1c 0.55 g/dL Invalid Interpretation Code [facility] Comment on above: Performed By: #### 6 [id number], [id number], [id number] #### [facility] (DEFAULT) [address] [place] [address] 60021 Glucose [Mass/Vol] 105 mg/dL Invalid Interpretation Code [facility] Comment on above: Performed By: #### 9 [id number], [id number], [id number] #### [facility] (DEFAULT) [address] [place] [address] 98697 HbA1c (Bld) [Mass fraction] 5.3 % Normal 4.6-6.2 [facility] Comment on above: Performed By: #### 2 [id number], [id number], [id number] #### [facility] (DEFAULT) [address] [place] [address]98 Provider Orderson 11-17-2022 Provider Orders [id number] Normal [facility] TSHon 11-17-2022 TSH Qn 1.26 m[IU]/L Normal 0.45-5.33 [facility] Comment on above: Performed By: #### 3 [id number], [id number], [id number] #### [facility] (DEFAULT) [address] [place] [address] 20998 hCG Quantitativeon hCG Quantitative <0.6 Normal 0.0-0.6 [facility] Comment on above: Result Comment: Post -Menopausal Reference Range is: 0.1-11.6 mIU/mL Performed By: #### 9 [id number], [id number], [id number] #### [facility] (DEFAULT) [address] [place] [address] 15861 Lab - Toxicology Resultson 0 10-20-2022 Lab - Toxicology Results [id number] 1#1.00OTGTIFF Normal [facility] QuantiFERON-TB Gold Pluson 0 10-20-2022 QuantiFERON-TB Gold Plus Negative Invalid Interpretation Code Negative [facility] Comment on above: Result Comment: No r esponse to M tuberculosis antigens detected. Infection with M tuberculosis is unlikely, but high risk individuals should be considered for additional testing (ATS/IDSA/CDC Clinical Practice Guidelines, 2017). The reference range is an Antigen minus Nil result of <0.35 IU/mL. Chemiluminescence immunoassay methodology Performed At: [address] [id number] Bibi Irwin PhD Ph:[phone] Performed By: #### 9 [id number], [id number], [id number] #### [facility] (DEFAULT) [address] [place] [address] 00845 QuantiFERON Incubation Incubation performed. Invalid Interpretation Code [facility] Comment on above: Result Comment: Perf ormed At: [address] [id number] Bibi Irwin PhD Ph:[phone] Performed By: #### 3 [id number], [id number], [id number] #### [facility] (DEFAULT) [address] [place] [address] HBSab Qnt LCon 10-19-2022 Hep B Surf Ab Quant LC <3.1 Low Immunity>9.9 [facility] Comment on above: Result Comment: Stat us of Immunity Anti-HBs Level Inconsistent with Immunity 0.0 - 9.9 Consistent with Immunity >9.9 Performed At: [address] [id number] Bibi Irwin PhD Ph:[phone] Performed By: #### 1 [id number], [id number], [id number] #### [facility] (DEFAULT) [address] [place] [address] Measles/Mumps/Rubella Immuni ty LCon 10-19-2022 Mumps Abs, IgG LC 132.0 AU/mL Invalid Interpretation Code Immune >10.9 [facility] Comment on above: Result Comment: Nega tive <9.0 Equivocal 9.0 - 10.9 Positive >10.9 A positive result generally indicates past exposure to Mumps virus or previous vaccination. Performed At: [address] [id number] Bibi Irwin PhD Ph:[phone] Performed By: #### 5 [id number], [id number], [id number] #### [facility] (DEFAULT) [address] [place] [address] Rubella Antibodies, IgG LC 1.78 index Invalid Interpretation Code Immune >0.99 [facility] Comment on above: Result Comment: Non- immune <0.90 Equivocal 0.90 - 0.99 Immune >0.99 Performed By: #### 5 [id number], [id number], [id number] #### [facility] (DEFAULT) [address] [place] [address] Rubeola Ab, IgG, EIA LC >300.0 Invalid Interpretation Code Immune >16.4 [facility] Comment on above: Result Comment: Nega tive <13.5 Equivocal 13.5 - 16.4 Positive >16.4 Presence of antibodies to Rubeola is presumptive evidence of immunity except when acute infection is suspected. Performed By: #### 7 [id number], [id number], [id number] #### [facility] (DEFAULT) [address] [place] [address] Nicotine Metabolite, Urine L Con 10-19-2022 Cotinine LC Negative Invalid Interpretation Code Hrdphe=147 [facility] Comment on above: Result Comment: Perf ormed At: [facility] [address] [facility] [place], [place] [id number] Rachel Garcia PhD Ph:[phone] Performed By: #### 2 [id number], [id number], [id number] #### [facility] (DEFAULT) [address] [place] [address] US Pelvic Complete w/Transva ginalon 06-21-2022 US [...] by Pepito Martins on 06/22/2022 1125 Normal [facility] XR Abdomen Single View (KUB) *on 06-18-2022 XR Abdomen Single View (KUB)* COMPARISON: NONE. FINDINGS: The bowel gas pattern is unremarkable. There are no dilated loops of bowel. There are no acute osseous changes. IMPRESSION: There are no acute changes. Report reported and signed by ALONSO PADRON on 06/19/2022 1201 Normal [facility] CBC AUTO DIFFon 12-12-2020 BASO # 0.1 103/ul Normal 0.0-0.1 [facility] Comment on above: Performed By: #### C BC #### [facility] [address] [place] [address] Jatin Tracey Basophils/100 WBC (Bld) 0.7 % Normal 0.2-2.0 [facility] Comment on above: Performed By: #### C BC #### [facility] [address] [place] [address] Jatin Tracey EO # 0.4 103/ul Normal 0.0-0.7 [facility] Comment on above: Performed By: #### C BC #### [facility] [address] [place], [place] [address] Jatin Tracey Eosinophils/100 WBC (Bld) 3.4 % Normal 0.9-7.0 [facility] Comment on above: Performed By: #### C BC #### [facility] [address] [place], [place] [id number] Jatin Tracey Erythrocyte distribution width (RBC) [Ratio] 11.8 % Normal 11.0-15.0 [facility] Comment on above: Performed By: #### C BC #### [facility] [address] [place], [place] [id number] Jatin Tracey Hematocrit (Bld) [Volume fraction] 42.6 % Normal 36.0-48.0 [facility] Comment on above: Performed By: #### C BC #### [facility] [address] [place], [place] [id number] Jatin Tracey Hemoglobin (Bld) [Mass/Vol] 14.3 g/dL Normal 12.0-16.0 [facility] Comment on above: Performed By: #### C BC #### [facility] [address] [place] [address] Jatinandrez Webb IG # 0.03 10e3/ul Normal 0.00-0.03 [facility] Comment on above: Performed By: #### C BC #### [facility] [address] [place] [address] Jatin Tracey IG % 0.3 % Normal 0.0-0.5 [facility] Comment on above: Performed By: #### C BC #### [facility] [address] [place] [address] Jatin Tracey LYMPH # 2.2 103/ul Normal 1.2-3.8 [facility] Comment on above: Performed By: #### C BC #### [facility] [address] [place] [address] Jatinandrez Vergaraen Lymphocytes/100 WBC (Bld) 20.7 % Normal 20.5-60.0 [facility] Comment on above: Performed By: #### C BC #### [facility] [address] [place] [address] Jatin Tracey MANUAL DIFF REQ NO Normal [facility] Comment on above: Performed By: #### C BC #### [facility] [address] [place] [address] Jatin Tracey MCH (RBC) [Entitic mass] 30.4 pg Normal 26.7-34.0 [facility] Comment on above: Performed By: #### C BC #### [facility] [address] [place] [address] Jatin Tracey MCHC (RBC) [Mass/Vol] 33.6 g/dL Normal 29.9-35.2 [facility] Comment on above: Performed By: #### C BC #### [facility] [address] [place] [address] Jatin Tracey MCV (RBC) [Entitic vol] 90.4 fL Normal 81.0-99.0 [facility] Comment on above: Performed By: #### C BC #### [facility] [address] [id number] Jatin Tracey MONO # 0.6 103/ul Normal 0.3-0.8 [facility] Comment on above: Performed By: #### C BC #### [facility] [address] [id number] Jatin Tracey Monocytes/100 WBC (Bld) 6.0 % Normal 1.7-12.[address] [facility] Comment on above: Performed By: #### C BC #### [facility] [address] [address] Jatin Tracey NEUT # 7.3 103/ul Critically high 1.4-6.5 [facility] Comment on above: Performed By: #### C BC #### [facility] [address] [place] [address] Jatin Tracey Neutrophils/100 WBC (Bld) 68.9 % Normal 43.0-75.0 [facility] Comment on above: Performed By: #### C BC #### [facility] [address] [place], [place] [id number] Jatinandrez Vergaraen Platelet mean volume (Bld) [Entitic vol] 9.7 fL Normal 9.5-13.5 [facility] Comment on above: Performed By: #### C BC #### [facility] [address] [place], [place] [id number] Jatin Tracey PLT 252 103/ul Normal 150-450 [facility] Comment on above: Performed By: #### C BC #### [facility] [address] [place], [place] [id number] Jatin Tracey RBC 4.71 106/ul Normal 4.20-5.40 [facility] Comment on above: Performed By: #### C BC #### [facility] [address] [place], [place] [id number] Jatin Tracey WBC 10.6 103/ul Normal 4.0-11.0 [facility] Comment on above: Performed By: #### C BC #### [facility] [address] ABD/PELV W CONon 12-13-[address] [...] by: Sabiha RUSHING Date: 2020-12-12 04:08 Normal [facility] PREG HCG QUALon 12-12-2020 , QUAL Negative Normal NEGATIVE [facility] Comment on above: Performed By: #### P REG #### [facility] [address] [id number] Jatin Webb PROF 14(COMP METB)on 021 Albumin [Mass/Vol] 3.9 g/dL Normal 3.5-5.0 [facility] Comment on above: Performed By: #### C MP #### [facility] [address] [place], [place] [address] Jatin Webb Albumin/Globulin [Mass ratio] 1.1 {ratio} Normal [facility] Comment on above: Performed By: #### C MP #### [facility] [address] [id number] Jatin Webb ALP [Catalytic activity/Vol] 93 U/L Normal 38-126 [facility] Comment on above: Performed By: #### C MP #### [facility] [address] [place], [place] [address] Jatin Tracey ALT [Catalytic activity/Vol] 16 U/L Normal 9-52 [facility] Comment on above: Performed By: #### C MP #### [facility] [address], [place] [address] Jatin Tracey Anion gap [Moles/Vol] 17.1 mmol/L Normal Th [facility] Comment on above: Performed By: #### C MP #### [facility] [address], [place] [address] Jatin Tracey AST [Catalytic activity/Vol] 3 U/L Critically low 14-36 [facility] Comment on above: Performed By: #### C MP #### [facility] [address] [id number] Jatin Tracey Bilirubin [Mass/Vol] 0.3 mg/dL Normal 0.2-1.3 [facility] Comment on above: Performed By: #### C MP #### [facility] [address] [place], [place] [address] Jatin Tracey Calcium [Mass/Vol] 8.9 mg/dL Normal 8.4-10.2 [facility] Comment on above: Performed By: #### C MP #### [facility] [address] [place], [place] [phone] Jatin Tracey Chloride [Moles/Vol] 106 mmol/L Normal 98-107 [facility] Comment on above: Performed By: #### C MP #### [facility] [address] [place], [place] [address] Jatin Tracey CO2 [Moles/Vol] 23.0 mmol/L Normal 22.0-30.0 [facility] Comment on above: Performed By: #### C MP #### [facility] [address] [place], [place] [address] Jatin Tracey Creatinine [Mass/Vol] 0.76 mg/dL Normal 0.52-1.04 [facility] Comment on above: Performed By: #### C MP #### [facility] [address] [place], [place] [address] Jatin Tracey EGFR-AF BENINESE >60 Normal >=60 [facility] Comment on above: Performed By: #### C MP #### [facility] [address] [place], [place] [address] Jatin Tracey EGFR-NON AF BENINESE >60 Normal >=60 [facility] Comment on above: Performed By: #### C MP #### [facility] [address] [phone] Jatin Tracey Globulin (S) [Mass/Vol] 3.7 g/dL Normal T [facility] Comment on above: Performed By: #### C MP #### [facility] [address] [place], [place] [phone] Jatin Tracey Glucose [Mass/Vol] 96 mg/dL Normal 74-106 [facility] Comment on above: Performed By: #### C MP #### [facility] [address] [place], [place] [phone] Jatin Tracey Potassium [Moles/Vol] 4.1 mmol/L Normal 3.4-5.0 [facility] Comment on above: Performed By: #### C MP #### [facility] [address] [place], [place] [phone] Jatin Tracey Protein [Mass/Vol] 7.6 g/dL Normal 6.1-8.2 [facility] Comment on above: Performed By: #### C MP #### [facility] [address] [place], [place] [address] Jatin Tracey Sodium [Moles/Vol] 142 mmol/L Normal 137-145 [facility] Comment on above: Performed By: #### C MP #### [facility] [address] [place], [place] [address] Jatin Tracey Urea nitrogen [Mass/Vol] 14.0 mg/dL Normal 6.4-19.3 [facility] Comment on above: Performed By: #### C MP #### [facility] [address] [place], [place] [phone] Jatin Tracey Urea nitrogen/Creatinine [Mass ratio] 18.4 mg/mg Normal [facility] Comment on above: Performed By: #### C MP #### [facility] [address] [phone] Jatin Webb PROTIMEon 12-12-2020 INR Coag (PPP) [Relative time] 1.00 {INR} Normal [facility] Comment on above: Performed By: #### P TT, PT #### [facility] [address] [phone] Jatin Webb INR GUIDELINES SEE BELOW Normal [facility] Comment on above: Result Comment: MAHESH RED INR: 2.0 - 3.0 CONDITIONS NOT LISTED BELOW 2.5 - 3.5 FOR PROSTHETIC HEART VALVE REPLACEMENT 2.5 - 3.5 RECURRENT THROMBOSIS Performed By: #### P TT, PT #### [facility] [address] [place] [address] aJtin Webb PT Coag (PPP) [Time] 10.8 s Normal 9.0-11.6 [facility] Comment on above: Performed By: #### P TT, PT #### [facility] [address] [place], [place] [phone] Jatin Webb PTTon 12-12-2020 aPTT Coag (Bld) [Time] 26.2 s Normal 22.3-36.2 Th e [facility] Comment on above: Performed By: #### P TT, PT #### [facility] [address] [place], [place] [phone] Jatin Webb XR CHEST 1 Von 12-12-2020 XR CHEST 1 V EXAM: XR CHEST 1 V HISTORY: Chest pain left-sided rib pain COMPARISON: None. TECHNIQUE: Single frontal view chest x-ray FINDINGS: No lobar consolidation, large effusions, pneumothorax, or discrete acute bony abnormality. Cardiac size unremarkable. IMPRESSION: No radiographic evidence for acute chest abnormality. Electronically authenticated by: ODALIS BRICENO Date: 2020-12-12 03:25 Normal [facility] Encounters Encounter Date Encounter Type Care Provider Facility Start: 10-31-2023 End: 10-31-2023 ambulatory [facility] Not Available Start: 10-06-2023 End: 10-06-2023 ambulatory [facility] Start: 09-29-2023 End: 09-29-2023 ambulatory MARY MOSQUEDAZPATRICK Not Available Start: 08-02-2023 End: 08-02-2023 ambulatory MARY Carlson LAW Not Available Start: 04-22-2023 End: 04-22-2023 ambulatory Leah Paigeer [facility] Start: 04-13-2023 End: 04-13-2023 ambulatory MARY BOWERSPATRICK Not Available Start: 01-10-2023 End: 01-10-2023 ambulatory Leah Azar [facility] Start: 12-11-2022 ambulatory Leah Geno Doe Facility:[facility] Start: 11-29-2022 End: 11-29-2022 ambulatory Leah Azar [facility] Start: 11-17-2022 End: 11-17-2022 ambulatory [facility] Start: 10-18-2022 End: 10-18-2022 ambulatory Leah Azar [facility] Start: 12-12-2020 End: 12-12-[address] BRANDON LE Facility:[facility] Payers Date Payer Category Payer Unknown [id number] 2022 Unknown [id number] 2022 Unknown 2001 Unknown [id number] 2.16.84 [id number] 2001 Unknown [id number] 2.16.8 [id number] 2001 Unknown [id number] 2.16.8 [id number] 2001 Unknown [id number] 2.16.8 [id number] 2001 Unknown [id number] 2.16.8 [id number] 2001 Unknown [id number] 2.16.8 [id number] 2001 Unknown [id number] 2.16.84 [id number] 2001 Unknown [id number] 2.16.84 [id number] 2001 Unknown [id number] 2.16.84 [id number] 2001 Unknown [id number] 1959 Unknown [id number] 1959 Unknown [id number] Clinical Note 01-10-2023 Note Date & Type [...] these instructions at home: Medicines ? Take zfyt-cet-kkjipgt and prescription medicines only as told by [...] and water are not available, use hand [employer]. Contact a health care provider if: ? [...] can cause a sore throat. ? Take fuit-gpm-mnpkqeu medicines only as told by your health [...] provider. Document Revised: 07/08/2021 Document Reviewed: 07/08/2021 [employer] Patient Education ? 2022 [employer] Viral Illness, Adult Viruses are tiny [...] person who is (more content not included)... [facility] Summary Purpose Family History No Family History Records FoundNo Family History Records FoundNo Family History Records FoundNo Family History Records Found Advance Directives No Advanced Directives Records FoundNo Advanced Directives Records FoundNo Advanced Directives Records FoundNo Advanced Directives Records Found Additional Source Comments INFORMATION SOURCE (unrecogn ized section and content) DATE CREATED AUTHOR 12/15/2020 [facility] DATE CREATED AUTHOR AUTHOR'S ORGANIZ ATION 06/23/2022 [facility] DATE CREATED AUTHOR AUTHOR'S ORGANIZ ATION 10/13/2023 [facility] DATE CREATED AUTHOR AUTHOR'S ORGANIZ ATION 12/03/2023 [facility]ists [facility] FOR RECORDS PERTAINING TO PATIENTS WHO ARE [...] BE BASED ON THE PRIMARY CLINICAL RECORDS. [facility]. provides no warranty or guarantee of the accuracy or completeness of information in this document.
== END 2023-12-14 19:02 | disposition home or self-care (01) ==
LOC: LAB 19:01
PROVIDERS: PCP Family Medicine; Visit Provider Physician Assistant
DX: Z34.92 Encounter for supervision of normal pregnancy, unspecified, second trimester (principal)
CPT/HCPCS: 88175

== ENCOUNTER 2023-12-15 18:56 | Outpatient (OUT) | payer OTHER, SELFPAY ==
--- NOTE | 2023-12-15 18:59 | US_ITS ---
[address] [address] Patient Name: BRYNN WALLACE MRN: [id number] date: 2000 Sex: F Assigned Patient Location: US Current Patient Location: Accession/Order Number: [id number] Exam Date: 12/15/2023 19:05 Report Date: 12/16/2023 06:15 At the request of: HANNAH PORTILLO Procedure: US OB anatomy EXAMINATION: US OB anatomy, US OB cervical length HISTORY: SCREENING, , FOR ANATOMIC SURVEY Z36.89 COMPARISON: Ultrasound OB transvaginal 09/23/2023 TECHNIQUE: Transabdominal sonographic examination was performed for obstetrical and evaluation. FINDINGS: Number: 1 Heart Rate: 153.41 bpm H.B. /min Amniotic Fluid Volume: Subjectively normal Placental Location: ANTERIOR with lower margin 3.6 cm from os. Cervix Length: 6.44 cm , closed ANATOMY: Normal Structures -cerebellum, choroid plexus, cisterna magna, lateral cerebral ventricles, orbits, midline falx, hard palate, four-chamber heart, RVOT, LVOT, stomach, kidneys, bladder, umbilical cord insertion into abdomen, three-vessel cord, cervical spine, thoracic spine, lumbar spine, sacral spine, right upper extremity, left upper extremity, right lower extremity, left lower extremity. SUBOPTIMALLY SEEN: None ABNORMALITIES: None BIOMETRY: BPD: 4.79 cm; 20 weeks 3 days; 45 % HC: 17.87 cm; 20 weeks 2 days; 30 % AC: 15.91 cm; 21 weeks 0 days; 59.30 % FL: 3.22 cm; 20 weeks 0 days; 23.40 % EFW:360.89 g; 43.50 % FL/AC: 20.22 FL/BPD: 67.23 HC/AC: 1.12 GESTATIONAL AGE: Age by EDC: 20 weeks 4 days Age by current US: 20 weeks 3 days JAYE by current US: 2024-04-30 JAYE by EDC: 2024-04-29 US/US OB anatomy IMPRESSION: 1. Single live intrauterine with growth detailed above. Electronically authenticated by: RUFUS CHOUDHURY Date: 12/16/2023 06:15
--- NOTE | 2023-12-15 18:59 | US_ITS ---
[address] [address] Patient Name: BRYNN WALLACE MRN: [id number] date: 2000 Sex: F Assigned Patient Location: US Current Patient Location: Accession/Order Number: [id number] Exam Date: 12/15/2023 19:05 Report Date: 12/16/2023 06:15 At the request of: HANNAH PORTILLO Procedure: US OB cervical length EXAMINATION: US OB anatomy, US OB cervical length HISTORY: SCREENING, , FOR ANATOMIC SURVEY Z36.89 COMPARISON: Ultrasound OB transvaginal 09/23/2023 TECHNIQUE: Transabdominal sonographic examination was performed for obstetrical and evaluation. FINDINGS: Number: 1 Heart Rate: 153.41 bpm H.B. /min Amniotic Fluid Volume: Subjectively normal Placental Location: ANTERIOR with lower margin 3.6 cm from os. Cervix Length: 6.44 cm , closed ANATOMY: Normal Structures -cerebellum, choroid plexus, cisterna magna, lateral cerebral ventricles, orbits, midline falx, hard palate, four-chamber heart, RVOT, LVOT, stomach, kidneys, bladder, umbilical cord insertion into abdomen, three-vessel cord, cervical spine, thoracic spine, lumbar spine, sacral spine, right upper extremity, left upper extremity, right lower extremity, left lower extremity. SUBOPTIMALLY SEEN: None ABNORMALITIES: None BIOMETRY: BPD: 4.79 cm; 20 weeks 3 days; 45 % HC: 17.87 cm; 20 weeks 2 days; 30 % AC: 15.91 cm; 21 weeks 0 days; 59.30 % FL: 3.22 cm; 20 weeks 0 days; 23.40 % EFW:360.89 g; 43.50 % FL/AC: 20.22 FL/BPD: 67.23 HC/AC: 1.12 GESTATIONAL AGE: Age by EDC: 20 weeks 4 days Age by current US: 20 weeks 3 days JAYE by current US: 2024-04-30 JAYE by EDC: 2024-04-29 US/US OB cervical length IMPRESSION: 1. Single live intrauterine with growth detailed above. Electronically authenticated by: RUFUS CHOUDHURY Date: 12/16/2023 06:15
--- OUTSIDE RECORDS SUMMARY | 2023-12-15 19:04 | XMS_ITS | CCD ---
Author Organization [facility] Care Team Providers Care Supervisor Plate Forming Name Role Phone REY, DR BRANDON Mock Consulting Unavailable REY, DR BRANDON Mock Attending Unavailable DOE, DR MEEKS Primary Care Unavailable REY, DR BRANDON Mock Admitting Unavailable MAKENNA RUSHING Consulting Unavailable Odalis Briceno Consulting Unavailable Doe, [facility] Primary Care Unavailable CONRADO, WALDO R Admitting Unavailable Doe, [facility] Primary Care Unavailable CONRADO, WALDO R Attending Unavailable Doe, [facility] Primary Care Unavailable MARQUISE Calvillo Admitting Unavailable MARQUISE Calvillo Attending Unavailable CONRADO, WALDO R Attending Unavailable Doe, [facility] Primary Care Unavailable CONRADO, WALDO R Admitting Unavailable Doe, [facility] Primary Care Unavailable CONRADO, WALDO R Admitting Unavailable CONRADO, WALDO R Attending Unavailable Doe, [facility] Primary Care Unavailable Doe, [facility] Primary Care Unavailable CONRADO, WALDO R Admitting Unavailable CONRADO, WALDO R Attending Unavailable LAW, MARY Carlson Attending Unavailab le CONRADO, WALDO Attending Unavailable LAW, MARY Carlson Attending Unavailab le Allergies Allergy Classification Reported Allergen(s) Allergy Type Date of Onset Reaction(s) Facility (1 source) No Known Medication Allergies; Translations: [No Known Medication Allergies] Propensity to adverse reactions to drug (disorder) [facility] Repository Problems Problem Classification Problem Date [...] Coding Summaryon 10-11-2023 Coding Summary HTMLBase 64 IjltwkueUMn2kPu+PGh lYWQ+SB2KEZIwR23ueP UaeL1nJ1KHHKdDPnnaW BGDKSwRXpEnfmTqUY8d aXNjZXJu IC8+EA1iKZYaQxxghUO oo0R4bIZ0X33omm8mZX fzwEY4ODOyNnSjznamy 3otuVt3SCuoVrseEbMo MMRqdL96JGP7mP66Pe3 2aDHbxVOrc1rflOp5Pn UuZXWmSNG8bNyyQZwxm 6InHIWbM73kdHYst1Z3 IGNvbGxhcHNlOyBlbXB 9cF4pVKjrbhqsq3elmm dnJgh4tk95nPSdy3I6k XU8T7UdesN8RFDgtCCt FrtceUKQnB3oellng4w pxwruFfUvKMCjFUl2WN w9TTMolAfhDfCjNK20K HQ9PURveaDtS7IeVLJp hSnnKeE4s9Z9Vo1TS8Z CCozaG6MUWNDVOQsfnR Q+KM46vt36Z4YbEhhyC el9POUfFCW5tVG6lW9c ZBPwKIjie1X4tGT1M6D mecYddm8hg1ukRFZtWW eyX99pyZQkt8K5PZYam AK3ZRKoyVoiFcImzX85 Oyc+LTXjbEgow6DyKlz zz5crh4jrtCa3KjskTQ DwboVbxGjtWMC7y9QjQ f4jBRXyfJD4hUW9cO7a OcWaOnH9CDexT756ZeU btFPzFmxfY58eW5IilD A+AQBoVsc5CUSsyZufB G0pT4HtVKXgycbmzGGz uWgdRX0xWIPsclsuOFE luV1eBKGdJ8h8RwPeVz T1SNsoO3VqUBUhxacqR q45gY0zZuKcGrB5GJah H7ZbezM8FWPhcJSmUIk wDLB5L59tx0T4GQVhZZ LqPKZ4oID8fW2xzJrbz jogbGVmdDsgdmVydGlj WJmdWQnlU745GSQbxXz nPkNvZGluZyBEYXRlOi AgMDYvMTgvMjAyNDwvd GQ+BVYbXSG8vJraIHNv iEKpWVhhZs8vbEfthFb tLC6bPGDvsrrfCMYleK 2xPNQelQFjbXazMM3uD QBmeolna336PmSmGTC7 AXDtwROaP1LbyH6nMgE oMMXmZVYbP5QjcWKgFP zvI873OJljKoJ6NCOtu nUeM7ZzSXRqzXgpCrR6 n4J9Zb2Is3HxybomN4C hsHTxBcQuEczsOQu8E7 RkPjwvdHI+QC96LTKnV H43BGv9YIR2dNnxIFrt HLMeJ8OdtY0uNfMwHCO kZGRkOyc+PHRhYmxlIH dpZHRoPScxMDAlJyBzd HxgNC8hNv6qQUAaHFNw vNhpwRZyMpAnq3vsIRC rRGilCQ2zgIqlV9LnzU A0YNRff6v1Fj14N47gY 3JvdXA+GDEvnBW0gLC9 mW7qCzZzVyF7GPygY46 6ItJqgQWmIaswe2cuo2 jlsGe1XkX4JASlbhUal XoqCWM3a6NnOh83S63z IHdpZHRoPSIxNSUiIHZ vzMlbtx6imP4sDk9+PG MafGF3fTC0uL8oUbFjV mT1XPjiE585JmRmtDCs Qfexb1yvq6sliDo7GwX oQMFirdQklPguMUO7n2 JjNk83O1JneLiff6FmQ tw1ro96fZVxc0Q2tTP3 X2WrULDfelfabAQjmIo tWZ7oOZRrawemZHUaoC 1hVIWkW0t3BxZuRaU3I CxeD1OmgiO7FOMkqATi ZPCqwGCKnW3sgjfkh9o evaggEbNiFFLjYNj5QY p1MYUytFdkTgShMUZ9P kI3OBW9iLHjuS1yzBew sxwthY9jQbs+GIY4vJB pkXZQEZ6pJyzreRY+PH OrVOW9oYiaALbvUGXvx U2nHDTqD3v5RvEnFuJ1 FUyzS4PwqbM4EIVgfVV fZYGhfRZXaH7yfwgmq4 wipuxmXoWiDQEdVTv3J Kg1WVKroEmwDnBsCYB3 XpU7GCQ4yJMteD2xhKl ovycyiD1nLil+QmlydG jnJYM0ATb0O8AcIxx8I RShwYbbHN7twZRfKBoz Hc0wtYpkbXpiYJ0nZAO mtjjmc294LkWdo9enPT FtcPUyUPbdQPW2S95ed 9P1XOVwBCRoODU9bTB7 nA2eyShhfmudfIRxvCk gdmVydGljYWwtYWxpZ2 79PKEkcVvyNeJqWMo5X 6WaFnt7XDZdjLrdCS4s lDJvNNnhDn2agXrecRd mFG8sGTBgwtggi155Tv Gyb3svDRMemTIiTHxjJ DH6G07ok1L7GKKcTEYg LGJ8wRG9jS3dxWgwzmb gbGVmdDsgdmVydGljYW rzCIblN239CAJuqIxwF yPmbMu9O7NwZpf0FQOm wShbFG2koIEhUAnkXa7 bsGjtuKmsMG3uUWLgoz uly352ImHdw9bmTAUlq UXsERvpGND2A15tw8S6 NYEgDZLeOQW6pEH2iD8 hbGlnbjogbGVmdDsgdm IcmEehKWcxZHnmK136I HRvcDsnPlBhdGllbnQg QTqjFSr5V8DbIwkzdCO +VA46VJTzXS61oFHmkM Edr6rjrXa4PrLeAIXfJ YG0pLupHQsif9OqBLHy Q98zfSSuv1T5VIKhqZv mmZFxIzTupIP3xR2nMG itxcapt1govgmzLbaeh 6tsna74aN83F83pOGxm ZHRoPSIzMCUiIHZhbGl jwy4nkH4jHu2+PGNvbC N1pSH2uL8vDVPjGaW9O IeiT717NqDuhAUhOgeu q0xpd3jdlXp6PeM5UMO fcvGyfEjeWXS9e9AgEz 56V78qIVloXNJlZGHaQ WXuSKKhhTzjbu7vmM4r Ii8+FUOwfGG7eAD5nM7 lGpRxZgQ0XUkdN379Er UxmJSqTsgjS84lO9Azx XA+OQWjCbz2IHAvlJlh DI3csWDtWZrfIc0iROI 6WbTjNmIcEGabB4GeWO KmkbuntjxvgRD6EUDtW WSlcD09Ae0roMmmXBCq sDFNdN7brnckv8vuhti mTpClNSNkZZd1NPm3QX XhgDccViJmDMA5NfX5G UO6eLQauJ2psBqddcwf mT2kT9ZgPWMdabqyLk4 9mV4kJzIvYgO7HBkyBb c+QkFLRVIsIEFMRVhBT kRSQSBNSUNIRUxMRTwv dGQ+NTShFWG9cLlzBXj jSIHgpX2yHYOnB0g8Cz JkAtH7WZqkX5XhJCOfy kioOv90jX5fUdXfIlW7 IHrgH0UkrrV7TNIgcQS zCUzlTRX2K51jp6K9PK XaXCCxZPJ6gEZ3aZ3dz GlnbjogbGVmdDsgdmVy mFmnWLziASomA973IFQ euZrkHjLjRuC4WcMaRO T6A9NmDem1KGFthPcuH A0rdELaULblMx4jbMdb kCoiHB4pDCFfatlrUCD ncX9jKYBpjQHzjPfkPF 7jXHIaglhxz862LqUgP OC0VYHcfJJkC2YwdO5w ZlQtAKAmLQSrR0UsuZT eHKlrD967XVqnRbP1IW VybkIfU5PiYDRtzHaeN dN9i6G5Qz5vVhADHJKb czwvdGQ+EZXrDFC0vDv nKTvmWMXhvR1lDCMaU8 c4NuJpKrW8OLsvL3FgP QTjlahcQq10lF9uFaVd HhK2DFhkV2UkztO2FMC elRMrATfpQYA7G64xf5 Q3UOXtHLKhJHA2eMX6u E8nqFfllhlcoZUaiZch abGhoXofHBuaOTceD02 6IHRvcDsnPkZFTUFMRT wvdGQ+HGHeOGY8eDfiF NpjURXjvV4gMBGkB4e8 NjXnMnH4IAbnL0QpONH pxcyvWz46hD5qOtSbIm S2HHtnI7UodzR7EKDhq EKmMKhuTDI1M84lx9J0 GRCuXBVqAOH2jYA7wP2 hbGlnbjogbGVmdDsgdm XbxRqeOFkgPIevH713B AXywKilIo9XFN57WM71 O1ZfXvgeoIYvwFU+PHR hYmxlIHdpZHRoPScxMD EeLoBjcEizOS6lFc0cC GVyLWNvbGxhcHNlOiBj c7eiFQTwGNghIX5ncZl bV4EtyHF7EBSco5g6Dm 19O78aG9DbgKX+PGNvb UR5hAI8gF3vQeSmVjI6 WIciO618VxWdrNViNpu sb7ypf9kdcKq4LdHhDT BqfbHgrImoXLP1h5ElM p52R81yRNbrMUUxZVWs XFJfBWEdxHqdpo2isZ9 wIi8+AOHvgLX4yHU4jW 9vLvHyYsR3CQtcC566E oKbqEFqVhyuX00gV8Vp dXA+LNTqRwt9ZTUakHh zYI1zwMGlVAgzEq8eYI Y3IgUhQkVqSKrrV4BcY ZLvlzfofszqcTB1VNJi ANOdbH47Fj5hjQjuQi9 eYFJgPXO6LHKrkFXnP0 QrhS2fWpVlPFGrPNIbB 3IpbGOtHJglR476ZJpw ViM4KYArlaYsP3XjJSE mlBxpEiB2g2X3Bu7JsU ntzLPlJC1vMaOjVQw4U 0DdRmq6UBQcfCyyVX0w pWAaBKdcVm9gcJysqGn fKU8tSKCntnytc039Gm Poe4spTPPdjAMkWQyvT RA3G47ke5S6YBUkMKDg ERM3dOT6yL2nsFhtevk gbGVmdDsgdmVydGljYW tsZNmpM270PSFujOtzE kADBte9W8UpVug6UWYx vBljGP1tzJAcRUunIl4 nrNezmQogSV4rQZKmvz sis485TnBrm2wwLLTrv VVsJTvwLGP6U49kt6D0 WVIpJCArDLC2yVK7iU0 hbGlnbjogbGVmdDsgdm HwpEdiAHzoCSrsW649S LNwjMjeGp6EMvz3N3Es Klf6NWTqzZesJA4nkTA vRGimWm9wzJhycXfzNA 1nZDBahggbu373ErUnl 7gmGPDlaSXdWRgbZXP4 Z65yx1K1XCPaEVZeTVY 2wFW9lO4jwUwxqhuqcB VmdDsgdmVydGljYWwtY BysG070VPNxfTaoQdWt eWVyOjwvdGQ+QO54ss4 7D3NtRnouJek8GNRlRV P7iLI9hO6aJDNgTCowz 4R1aLX6L7PnzyJouj1m b2x (more content not included)... Normal [facility] C Urineon 10-08-2023 C Urine 45,000 [...] <=0.5/9.5 Verified Vanc S 2 Verified Normal [facility] Comment on above: Performed By: #### 8 [id number], [id number], [id number] #### [facility] (DEFAULT) [address] [place] [address] HBsAg Screen LCon 10-07-2023 HBsAg Screen LC Negative Invalid Interpretation Code Negative [facility] Comment on above: Result Comment: Perf ormed At: [facility] [address] [id number] Bibi Irwin PhD Ph:[phone] Performed By: #### 3 [id number] #### [facility] (DEFAULT) [address] [place] [address] HCV Antibody LCon 10-07-2023 Hep C Virus Ab LC Non-Reactive Invalid Interpretation Code Non Reactive [facility] Comment on above: Result Comment: HCV antibody alone does not differentiate between previously resolved infection and active infection. Equivocal and Reactive HCV antibody results should be followed up with an HCV RNA test to support the diagnosis of active HCV infection. Performed At: [address] [id number] Bibi Irwin PhD Ph:[phone] Performed By: #### 3 [id number] #### [facility] (DEFAULT) [address] [place] [address]114 HIV 4th Gen Screen w Reflex LCon 10-07-2023 HIV Scr 4th Gen LC Non-Reactive Invalid Interpretation Code Non Reactive [facility] Comment on above: Result Comment: HIV Negative HIV-1/HIV-2 antibodies and HIV-1 p24 antigen were NOT detected. There is no laboratory evidence of HIV infection. Performed At: [address] [id number] Bibi Irwin PhD Ph:[phone] Performed By: #### 1 [id number] #### [facility] (DEFAULT) [address] [place] [address]51 RPR, Rfx Qn RPR/Confirm TP L Con 10-07-2023 RPR LC Non-Reactive Invalid Interpretation Code Non Reactive [facility] Comment on above: Result Comment: Perf ormed At: [address] [id number] Bibi Irwin PhD Ph:[phone] Performed By: #### 3 [id number] #### [facility] (DEFAULT) [address] [place] [address] 65989 Rubella Antibodies, IgG LCon 10-07-2023 Rubella Antibodies, IgG LC 1.90 index Invalid Interpretation Code Immune >0.99 [facility] Comment on above: Result Comment: Non- immune <0.90 Equivocal 0.90 - 0.99 Immune >0.99 Performed At: [address] [place], [place] [id number] Bibi Irwin PhD Ph:[phone] Performed By: #### 3 [id number] #### [facility] (DEFAULT) [address] [place] [address] .Auto Diff 10-06-2023 Auto Amite % 4 % Normal 12 [facility] Comment on above: Performed By: #### 1 [id number], 21610174, 0292999, 91008572, 3867196512, 5742148, 69965109, 30526380, 19430437, 36010718 #### [facility] (DEFAULT) [address] [place] [address] Baso Abs# 0.0 x10 Normal 0.0-0.2 [facility] Comment on above: Performed By: #### 1 [id number], 20520569, 6696854, 15722906, 9714262975, 4153978, 73272220, 56739124, 30042954, 40597762 #### [facility] (DEFAULT) [address] [place] [address]32 Basophils/100 WBC (Bld) 0.4 % Normal 0.2-2.0 [facility] Comment on above: Performed By: #### 1 [id number], 80584081, 8222751, 51155806, 1896252857, 9378746, 47516018, 98223791, 29639998, 12930638 #### [facility] (DEFAULT) [address] [place] [address] Eos Abs# 0.0 x10 Normal 0.0-0.4 [facility] Comment on above: Performed By: #### 1 [id number], 22509636, 4696828, 43835130, 0149354422, 3937022, 03141652, 87614233, 87372664, 14431331 #### [facility] (DEFAULT) [address] [place] [address]188 Eosinophils/100 WBC (Bld) 0.3 % Low 0.9-4.0 [facility] Comment on above: Performed By: #### 1 [id number], 40703789, 0999955, 46984772, 4493053450, 0768139, 96078067, 82108859, 64162772, 65102803 #### [facility] (DEFAULT) [address] [place] [address]25 Lymph Abs# 1.5 x10 Normal 1.3-2.9 [facility] Comment on above: Performed By: #### 1 [id number], 50357028, 4909849, 01569635, 1586830045, 2803383, 86609242, 34193985, 34107187, 81067301 #### [facility] (DEFAULT) [address] [place] [address] 16500 Lymphocytes/100 WBC (Bld) 13 % Low 14-48 [facility] Comment on above: Performed By: #### 1 [id number], 92108081, 1589791, 83401802, 3453585960, 6337761, 97776484, 48259219, 87540878, 30261081 #### [facility] (DEFAULT) [address] [place] [address]505 Amite Abs# 0.5 x10 Normal 0.0-0.8 [facility] Comment on above: Performed By: #### 1 [id number], 06045155, 3368432, 53867626, 7784704266, 3775806, 38284740, 50778064, 01932866, 70751784 #### [facility] (DEFAULT) [address] [place] [address]296 Neut Abs# 9.8 x10 High 1.5-9.2 [facility] Comment on above: Performed By: #### 1 [id number], 97694814, 9859514, 35102639, 4676247355, 4750905, 32618323, 96705217, 59900382, 57039237 #### [facility] (DEFAULT) [address] [place] [address] Neutrophils/100 WBC (Bld) 82 % Normal 44-88 [facility] Comment on above: Performed By: #### 1 [id number], 52033545, 5355799, 96329007, 3940496429, 1539344, 17450395, 79928638, 59258263, 89552240 #### [facility] (DEFAULT) [address] [place] [address] ABORhon 10-06-2023 ABO and Rh group Nom (d) Hx Check: Not Found Anti-A: 0 Anti-B: 0 Anti-D: 0 DCon: NT A1: 4+ B: 4+ ABORh Interp: O NEG Invalid Interpretation Code [facility] Comment on above: Performed By: #### 1 [id number], 93349863, 5469773, 69226788, 1019816369, 3957433, 49469430, 87572735, 42821634, 86192225 #### [facility] (DEFAULT) [address] [place] [address] ABORh Retypeon 10-06-2023 ABO and Rh group Nom (Bld) Ordered by Discern. Anti-A: 0 Anti-B: 0 Anti-D: 0 DCon: NT A1: 4+ B: 3+ ABORh Retype: O NEG Invalid Interpretation Code [facility] Comment on above: Performed By: #### 1 [id number], 56754966, 0263168, 22308391, 7263691429, 8021901, 01522492, 25874719, 85548959, 07243028 #### [facility] (DEFAULT) [address] [place] [address] ABSC Gelon 10-06-2023 ABSC Gel Negative Normal [facility] Comment on above: Performed By: #### 3 [id number] #### [facility] (DEFAULT) [address] [place] [address] CBC w/ Auto Diffon Erythrocyte distribution width (RBC) [Ratio] 13.3 % Normal 11.5-15.0 [facility] Comment on above: Performed By: #### 1 [id number], 08113948, 3688491, 29873449, 8109556563, 4006803, 61915829, 68020319, 83414823, 20722753 #### [facility] (DEFAULT) [address] [place] [address] Hematocrit (Bld) [Volume fraction] 41.2 % High 33.7-40.4 [facility] Comment on above: Performed By: #### 1 [id number], 76072271, 6938092, 45807048, 5689748118, 7958706, 03675531, 46686612, 45112836, 73830750 #### [facility] (DEFAULT) [address] [place] [address] Hemoglobin (Bld) [Mass/Vol] 13.6 g/dL Normal 11.3-15.9 [facility] Comment on above: Performed By: #### 1 851110324, 52627120, 1162220, 16114025, 9752428104, 7470339, 74005276, 32872518, 53611445, 88955566 #### [facility] (DEFAULT) [address] [place] [address] Man Diff? Auto Invalid Interpretation Code [facility] Comment on above: Performed By: #### 1 502851454, 00815540, 7564564, 88827187, 7903285292, 3411199, 27694733, 32022084, 68103043, 96889404 #### [facility] (DEFAULT) [address] [place] [address] MCH (RBC) [Entitic mass] 28 pg Normal 24-34 [facility] Comment on above: Performed By: #### 1 159251781, 89009851, 5230383, 52626674, 6120611433, 2776017, 80141694, 72443545, 79995243, 11742386 #### [facility] (DEFAULT) [address] [place] [address] MCHC (RBC) [Mass/Vol] 33 g/dL Normal 26-37 [facility] Comment on above: Performed By: #### 1 122453512, 44668398, 3491217, 30926593, 4398954252, 4257858, 75875783, 52619695, 63087259, 85486326 #### [facility] (DEFAULT) [address] [place] [address] 29966 MCV (RBC) [Entitic vol] 86 fL Normal 81-100 [facility] Comment on above: Performed By: #### 1 [id number], 05929762, 6979362, 35538136, 4546686295, 6097230, 45979644, 69841334, 76256874, 14862532 #### [facility] (DEFAULT) [address] [place] [address] 69351 Platelet 267 x10 Normal 138-427 [facility] Comment on above: Performed By: #### 1 [id number], 22093122, 7404985, 60999909, 3785550492, 1709177, 47494851, 32395178, 30745994, 81112990 #### [facility] (DEFAULT) [address] [place] [address] 47654 Platelet mean volume (Bld) [Entitic vol] 8.4 fL Normal 6.3-10.2 [facility] Comment on above: Performed By: #### 1 [id number], 61139841, 2253114, 56887896, 7455976357, 7313049, 28443467, 34283192, 79481085, 35120400 #### [facility] (DEFAULT) [address] [place] [address] 45102 RBC 4.79 x10 Normal 3.70-5.30 [facility] Comment on above: Performed By: #### 1 [id number], 92644852, 7364738, 11994453, 1620758874, 3021824, 48132753, 11730412, 60832911, 06766334 #### [facility] (DEFAULT) [address] [place] [address] WBC 11.8 x10 High 3.5-10.5 [facility] Comment on above: Performed By: #### 1 846925418, 56218613, 4208950, 77596423, 5138881019, 7785522, 80602568, 82164681, 13026817, 83288517 #### [facility] (DEFAULT) [address] [place] [address] HgbA1c Standardon 10-06-2023 .Hb 15.7 Invalid Interpretation Code [facility] Comment on above: Performed By: #### 1 [id number], 04281333, 7191033, 32554717, 0501084033, 1346631, 60602632, 16400903, 05790359, 37738203 #### [facility] (DEFAULT) [address] [place] [address] .Hgb A1c 0.45 g/dL Invalid Interpretation Code [facility] Comment on above: Performed By: #### 1 [id number], 41840701, 8703917, 72705794, 8545880918, 1003731, 98628607, 54540823, 09867012, 94931377 #### [facility] (DEFAULT) [address] [place] [address] Glucose [Mass/Vol] 88 mg/dL Invalid Interpretation Code [facility] Comment on above: Performed By: #### 1 [id number], 02910977, 3124756, 06395963, 0842369953, 6922690, 38312436, 80530858, 20154670, 10224560 #### [facility] (DEFAULT) [address] [place], [place] [address] HbA1c (Bld) [Mass fraction] 4.7 % Normal 4.6-6.2 [facility] Comment on above: Performed By: #### 1 550483864, 01417885, 8768180, 53815952, 6899985323, 1527888, 62919952, 39368263, 03099075, 40298751 #### [facility] (DEFAULT) [address] [place] [address] Provider Orderson 10-06-2023 Provider Orders [id number] [email or web address] 07-04-2023 Coding Summary HTMLBase 64 TmrpbdqmMAe4jZc+PGh lYWQ+RS8YWKQwE52jvX UkeF7qG3RXFVsYLdvaD NXZBFeNJkClsmTwQX7o aXNjZXJu IC8+UP1qAPJsAzmddVZ kc0Y2gMD7R63umr7cCT kmjMA7ILZnRsNkqxiow 0qfxGz7NYodAvvrPnRx LMXieL71QXT3hB31Ev3 4oJQnvJXta0xckJi8Rg YjSWZbIFF1wDnhSZkrx 9TsBFMeI57lfPBic4O1 IGNvbGxhcHNlOyBlbXB 2nN2yWWkdmgqwt9smvg dxAru5tk10yNZjc6O0k PH1C5LuqkU7GUEfoYQx FrpsyDDOxI7elfhfx6d yhnphNdPmDOJqLJv9HP e7JJDwnQqeOcZdTR68H XP8UYAugeXsQ7WrKVBv hZaoUzS7s1V4Cq3SR3Y EQjygG1NWHZJZSGdnmD Q+YF75mh90V0GlXhjeY zs1BFLsOAU5mBC0pZ5g RBDwVQwnz0P1fOJ9C5J eqfHmlx9mu8jeDFFvNQ qkE97fjTYqr9N5WVGzu TH1YSJfxRbrEaPdtY77 Oyc+YYWgmRapd1VsKql ye4wat7oadPe1KqdbFP PgaiRceJqmOCD1f1QhV n0dMZHzgAC0dOK0wN1z MyBjPyC9GGdnT887ToI ujPQyLzuqM64cY0HsuO A+QANcLxu1RERtmLhxB J0kF7JqMFBqxcwtfVPv yPvcEF2xUHNmatfhEAZ dyJ9oSSCcV2u9VqUvWp I8MWlrG2JwFVYtzvvrT n21nY1rXuXvKfG7SItb O7OdjrQ9GRWlkSShXRn tDIF0D84ec8N4OOGyWK MwQBM4hZR1bO3vbAbmy jogbGVmdDsgdmVydGlj TWaeTUabN734XZRyxVf nPkNvZGluZyBEYXRlOi AgMDMvMTEvMjAyNDwvd GQ+TFJpZJH4sTkkCVSd iAOoCOqkFj0kmSyzgFj hLE3zZCKrhbyqJURemU 0ySMXfiIPyxYoiUX6cH OXbhrwqo821XbCsFYV7 AVGilDYeJ5IorG8fCeC cGFLcXLCkL0XhbYVqKQ fnU965SJqkDqE8FFFxr xFnY6YeTEMheXssTeZ7 w0F7Jg7Nc0TmidnnS1Q bvOWfKpPpGmdtJZu2F2 RkPjwvdHI+XQ91BHUeU G91DGl9KEP5pIplELly YCOxY8MepH6eBxBlPUC kZGRkOyc+PHRhYmxlIH dpZHRoPScxMDAlJyBzd LukPW2nIa0pLOAaJLGu yDrzeCVdCrIon5dtENW qFBqxII7mrYysB2VkoE W3YWOkk9e3Gt55J53nH 3JvdXA+KRMtiTO0iDT2 lN7jMqExSsD6JLwtM93 5KkRrhWMrZoeva0tya9 mhrEf3FuF5LHYjmoLud PczGGR4n0VuTc76G19y IHdpZHRoPSIxNSUiIHZ qvAtmdj0utV4iQc9+PG ElxQD9hSD2zR8fMoZdT kV6OMzsH542SiRfdYCu Hczyb4qrk5eswLm7HjW zCCAdgiGevSdiVTX7w9 QxSi26J2OscReng8DtR tc5ss26sCZru5L3wAV3 R8PnKMBtiemboKLgtDd ySA7eTAOvemimIMFcsK 3oMSYkB0j1LjSoOrM6N FjnC8FwwzY7IUCzrWZc XGRdtMWAkB6shvqsy4j pdttqGhFdXSMmOSx5KI c7RNLhlUgeFuYzEXS1Z tF6ODI8jLAvyQ5uySbq lbzgaR3oLxn+OLP9oYN lpYDDKN8lWmrqyOR+PH PeTOU7mHazQYhpGDIvd K1rLQNsC3f5AbKrSpZ2 ELbpS2SgccU2KJAahDZ kMTMalACWmG8odeyub6 iiomjhJiGxTYBhCZh0Y Qg1VDIhlYbpLmEcIYN8 IaC5KUD1fUDecY3ylPz pczwhkM7gEsk+QmlydG ogLRF4DUh3X1AwDbx2N DRkvLssHP2htYWbGBgd He3ntMwmbZqyCZ5jUXY gkbwrx426XkYim3mdHN AloMWcLLybFAQ7K02jj 7U7ZFJwLVFxXYY5tOP1 oP6faZyviuefhDMkfFv gdmVydGljYWwtYWxpZ2 40AZCoxFwkBtDtREy0W 0HhTme9NJUaxPmvQH9b zAOlEQylFg8hvMbsnBw dJJ1hJTNifnkkx131Jd Yfj4tnYKVxlROkUTmdM AG3N65tb1J6SNAsPOTo QXD4cZK2xV5ydFlqbsf gbGVmdDsgdmVydGljYW yvZUxoL137YSQlnWyqZ pQmdNz4M2NyQzw5OPYz yLdePH7wiOJlZQkrGn5 grDawqJrzYU6gZCWfaf qis896FlSbx6oaJWKvg NUyCBzxBHZ8J95nf5T3 AUEeZIDsSHJ8mWN5sM2 hbGlnbjogbGVmdDsgdm YmaRhvBGnyLWlhN870G HRvcDsnPlBhdGllbnQg TRvoPJo9D2GlIqxzpUM +QI73LDSqLM97bPMtkH Jpr7whqHr8VwNyXFJdO BI0xMmsDNpbl1SmEAXh X66koMLfw2Z5XQBxoVl uqNDhZzUqoXY2pG7lFQ hvqbwpa4rwczeqVhzwt 6bugq21hF06A07zNUfq ZHRoPSIzMCUiIHZhbGl vev5kyD8kGh8+PGNvbC A5sRS1iB5mBSPeMzC5M TuoP735YqRthWDdEcnz l6ogr7lliZi1KvU4FPS oqwMpyIfySIS8e0EbRy 92P16kFFgpLGVkBQWtL KCbWKTqpUeaey6miG3g Ii8+QDLzqKS7lSM7bI7 jVuIpEkW6CVjgU035Km EvmZEuMgdhC82jF3Xvm XA+YMDzFxg9JWGpoBhe KG0aeMOgNPoiDm9oKEI 3SjLzLeFuDByjD0LoMC GoknzlymzlrLL0AVZkL ZXznF54Ns7uwRlgBSNa vIUAxG7uedczf3ywivx aQmDvLYTvNHp3EKr5GB MnnLrjDcEjLTR2HuW6L AW3zDZofN2zgMnvuqrd pU3yI8UwEQHoewprBq1 5cX7cRlNnYuM8NRnkRs c+QkFLRVIsIEFMRVhBT kRSQSBNSUNIRUxMRTwv dGQ+CFJdLBH0eWvnUXt pNMDhxH7oPZIgH7h5Bv CxLwE9KJpdY6YcSVPzo demAi83nM8gKsHyFrS1 XWjyE9GhvhU1SPJuwYW yEWfoTDX9J70oz0B6DJ BkMRItILC0tVT7hT3gd GlnbjogbGVmdDsgdmVy aArtJKwuOSrwV789BGQ ulLxsEvGvRxE1PgJuQI H2Q5QeZyj4IPRzsYkgG A2hzPHwXOboTp4scVuo xIkfDR2iRSJcsiyhHNW bsK7oLRKziLSihCkxYC 7rKIUshiduo049ApIqW VK2WKCcyNFnN0DloJ7m EsSuMJKoGPZeF5QxoAJ nNMxzZ343RNcgDkQ8HH NjfpQiB6JrFZHwrWapC wX8f1X3Bu4tPiMKMUQv czwvdGQ+BGBtAVD9nCg fAIdeVLAtzW9xMXNtN1 i4SwXyKdZ0MQoxS3PvZ QKgvzqrYu06bX5wIeEl CbA0GTyjH3KnarV6NVV pzGYxTArrWTL8I97gj2 F2ZXLzEXAeYMP7vTH3u O9fmMsfcshraFQerLor dgTwySpbUHwuHCezT03 6IHRvcDsnPkZFTUFMRT wvdGQ+OSAjMXP2pOswP OwkAWKmgZ4rVAEaW7k3 NkMlNhA2ZBalT0VnLKY aszrcSl64gT8eNcVzQe P1NPhoT2AcmmI6WBEwh CZpBZqzFLZ1O09mx2I6 STEjOPLhZVZ1gHH5pR7 hbGlnbjogbGVmdDsgdm CkwXqtHNicKSgqV186S DFvjEygPrObR6Dqwplx WnSLiBDcZHSmBL27NL2 1CO01M8DwZjpjoDKsyF U+PHRhYmxlIHdpZHRoP HgiMIBtLlGycWbhYH3d Fk9gESNxXCUxaGsajMM lPcUdo1xeOMDvAYncJS 5ijVlgA2GvrZA4KFBlu 6i7Dx36Y13cB8ApxAA+ OSQobJE7hPF6uF8zDuY sVhJ7NLtpN208BrYdwY UjRyfpn8dou0ytnSq3L jMwJSIgdmFsaWduPSJ0 x4MaLo59U28xUDpnETA oPSIyMCUiIHZhbGlnbj 5ifO1zUy1+JPBzdTX5q RK5fN4uPtTyGzX2TUlr W138PkTnxIPwPihtQ90 lS4MikEJ+GYGvTod4RT CwpJoqTA9guJTjSReyJ x3tLYS3QsYxMcNrFXun W5TqREYlwrdnqadreXJ 3RHEoAZKweP37Cr9msI zdTf0fKZJgXLZ9THSvu VSvK1JbdS2kCxTjNSGc GLKdS9ApjVJaRJozI28 7GIgzDeB8QECmaaNvX2 BkVIBfcMraQoV5g2Q8G q7JpPixuIWbSR6qXdPz JHd4M6BhXns4PQGxqAz nGY9siJGmQQbaAf3yvW qaeKktFN2aYGSlmapis 035RzGcr2vmEDRecBZx GHzyQJE4P71ni5V7JSS bJQFrIAM5kJE1uN8hwK lnbjogbGVmdDsgdmVyd ZplRXynZVauU371SCVv eSbeOpNYVzk0Q8OcHpj 8WYHgiMdoXW4nuOGuDX zxGh7scCkcsMliHH2jW TLdvinlh289HhLct9vr ZCWslURjIIvdLBN0F13 hs7L6YIRbKPYuBQD6vA O0oB6fiKaioqxtgHBhx DsgdmVydGljYWwtYWxp A621AYXsgVquPr9URhk 4D5RgRlc2EZHqeKijIZ 7udZThLTzaBx3sfVrzq XwhJW7wGRArempyd015 XqQth0ysXZUbaCIkCFj bRJA2Q64wb4C0DWJyIZ LtCNF7wRQ2tQ1kqYpga jogbGVmdDsgdmVydGlj IZouZAhmJ922TJKxyTg nPlBheWVyOjwvdGQ+PC 65qf18J6XaUqhlZjt4Y [id number] [facility] (more content not included)... Normal [facility] .Auto Diff 04-22-2023 Auto [place] % 6 % Normal 05-06 [facility] Comment on above: Performed By: #### [id number] #### [facility] (DEFAULT) [address] [place] [id number] Baso Abs# 0.1 x10 Normal 0.0-0.2 [facility] Comment on above: Performed By: #### [id number] #### [facility] (DEFAULT) [address] [place] [id number] Basophils/100 WBC (Bld) 0.8 % Normal 0.2-2.0 [facility] Comment on above: Performed By: #### [id number] #### [facility] (DEFAULT) [address] [place] [id number] Eos Abs# 0.1 x10 Normal 0.0-0.4 [facility] [facility] Comment on above: Performed By: #### 3 [id number] #### [facility] (DEFAULT) [address] [place] [address] 82927 Eosinophils/100 WBC (Bld) 1.8 % Normal 0.9-4.0 [facility] Comment on above: Performed By: #### 3 [id number] #### [facility] (DEFAULT) [address] [place] [address] 95739 Lymph Abs# 2.1 x10 Normal 1.3-2.9 [facility] Comment on above: Performed By: #### 3 [id number] #### [facility] (DEFAULT) [address] [place] [address] 49460 Lymphocytes/100 WBC (Bld) 26 % Normal 14-48 [facility] Comment on above: Performed By: #### 3 [id number] #### [facility] (DEFAULT) [address] [place] [address] 67672 Amite Abs# 0.5 x10 Normal 0.0-0.8 [facility] Comment on above: Performed By: #### 3 [id number] #### [facility] (DEFAULT) [address] [place] [address] 00254 Neut Abs# 5.2 x10 Normal 1.5-9.2 [facility] Comment on above: Performed By: #### 3 [id number] #### [facility] (DEFAULT) [address] [place] [address] 70972 Neutrophils/100 WBC (Bld) 65 % Normal 44-88 [facility] Comment on above: Performed By: #### 3 [id number] #### [facility] (DEFAULT) [address] [place] [address] 90776 CBC w/ Auto Diffon 3 Man Diff? Auto Invalid Interpretation Code [facility] Comment on above: Performed By: #### 3 [id number] #### [facility] (DEFAULT) [address] [place] [address] 49784 Erythrocyte distribution width (RBC) [Ratio] 13.1 % Normal 11.5-15.0 [facility] Comment on above: Performed By: #### 3 [id number] #### [facility] (DEFAULT) [address] [place] [address] 45830 Hematocrit (Bld) [Volume fraction] 40.7 % High 33.7-40.4 [facility] Comment on above: Performed By: #### 3 [id number] #### [facility] (DEFAULT) [address] [place] [address] 65335 Hemoglobin (Bld) [Mass/Vol] 14.0 g/dL Normal 11.3-15.9 [facility] Comment on above: Performed By: #### 3 [id number] #### [facility] (DEFAULT) [address] [place] [address] 53719 MCH (RBC) [Entitic mass] 29 pg Normal 24-34 [facility] Comment on above: Performed By: #### 3 [id number] #### [facility] (DEFAULT) [address] [place] [address] 28639 MCHC (RBC) [Mass/Vol] 34 g/dL Normal 26-37 [facility] Comment on above: Performed By: #### 3 [id number] #### [facility] (DEFAULT) [address] [place] [address] 82876 MCV (RBC) [Entitic vol] 85 fL Normal 81-100 [facility] Comment on above: Performed By: #### 3 [id number] #### [facility] (DEFAULT) [address] [place] [address] Platelet 275 x10 Normal 138-427 [facility] Comment on above: Performed By: #### 3 [id number] #### [facility] (DEFAULT) [address] [place] [address] Platelet mean volume (Bld) [Entitic vol] 7.7 fL Normal 6.3-10.2 [facility] Comment on above: Performed By: #### 3 [id number] #### [facility] (DEFAULT) [address] [place] [address] RBC 4.79 x10 Normal 3.70-5.30 [facility] Comment on above: Performed By: #### 3 [id number] #### [facility] (DEFAULT) [address] [place] [address] WBC 7.9 x10 Normal 3.5-10.5 [facility] Comment on above: Performed By: #### 3 [id number] #### [facility] (DEFAULT) [address] [place] [address] 45934 CMP Standardon 04-22-2023 eGFR Non AA >60 Invalid Interpretation Code [facility] Comment on above: Performed By: #### 3 [id number] #### [facility] (DEFAULT) [address] [place] [address] eGFR AA >60 Invalid Interpretation Code [facility] Comment on above: Performed By: #### 3 [id number] #### [facility] (DEFAULT) [address] [place] [address] 87372 Albumin [Mass/Vol] 4.0 g/dL Normal 3.5-5.0 [facility] Comment on above: Performed By: #### 3 [id number] #### [facility] (DEFAULT) [address] [place] [address] 68605 Albumin/Globulin [Mass ratio] 1.2 {ratio} Low 1.4-2.6 [facility] Comment on above: Performed By: #### 3 [id number] #### [facility] (DEFAULT) [address] [place] [address] 40210 Alk Phos 68 IU/L Normal 32-91 [facility] Comment on above: Performed By: #### 3 [id number] #### [facility] (DEFAULT) [address] [place] [address] 30599 ALT [Catalytic activity/Vol] 14.0 U/L Normal 14.0-54.0 [facility] Comment on above: Performed By: #### 3 [id number] #### [facility] (DEFAULT) [address] [place] [address] 26390 Anion gap [Moles/Vol] 10.9 mmol/L Normal 5.0-19.0 [facility] Comment on above: Performed By: #### 3 [id number] #### [facility] (DEFAULT) [address] [place] [address] 39135 AST [Catalytic activity/Vol] 18 U/L Normal 15-41 [facility] Comment on above: Performed By: #### 3 [id number] #### [facility] (DEFAULT) [address] [place] [address] 02601 Bili Total 0.6 mg/dL Normal 0.3-1.2 [facility] Comment on above: Performed By: #### 3 [id number] #### [facility] (DEFAULT) [address] [place] [address] 95889 Calcium [Mass/Vol] 8.8 mg/dL Low 8.9-10.3 [facility] Comment on above: Performed By: #### 3 [id number] #### [facility] (DEFAULT) [address] [place] [address] 11175 Chloride [Moles/Vol] 107 mmol/L Normal 101-111 [facility] Comment on above: Performed By: #### 3 [id number] #### [facility] (DEFAULT) [address] [place] [address] 99207 CO2 [Moles/Vol] 23 mmol/L Normal 21-32 [facility] Comment on above: Performed By: #### 3 [id number] #### [facility] (DEFAULT) [address] [place] [address] 57659 Creatinine [Mass/Vol] 0.68 mg/dL Normal 0.60-1.30 [facility] Comment on above: Performed By: #### 3 [id number] #### [facility] (DEFAULT) [address] [place] [address] 75611 Globulin (S) [Mass/Vol] 3.3 g/dL Normal 1.5-4.3 [facility] Comment on above: Performed By: #### 3 [id number] #### [facility] (DEFAULT) [address] [place] [address] 41342 Glucose [Mass/Vol] 103.0 mg/dL Normal 74.0-118.0 [facility] Comment on above: Performed By: #### 3 [id number] #### [facility] (DEFAULT) [address] [place] [address] 97601 Osmolality 274 mOsm/L Invalid Interpretation Code [facility] Comment on above: Performed By: #### 3 [id number] #### [facility] (DEFAULT) [address] [place] [address] 08694 Potassium [Moles/Vol] 3.9 mmol/L Normal 3.6-5.1 [facility] Comment on above: Performed By: #### 3 [id number] #### [facility] (DEFAULT) [address] [place] [address] 57144 Protein [Mass/Vol] 7.3 g/dL Normal 6.5-8.1 [facility] Comment on above: Performed By: #### 3 [id number] #### [facility] (DEFAULT) [address] [place] [address] 88593 Sodium [Moles/Vol] 137.0 mmol/L Normal 136.0-144.0 [facility] Comment on above: Performed By: #### 3 [id number] #### [facility] (DEFAULT) [address] [place] [address] 88403 Urea nitrogen [Mass/Vol] 12 mg/dL Normal 8-26 [facility] Comment on above: Performed By: #### 3 [id number] #### [facility] (DEFAULT) [address] [place] [address] 79768 Urea nitrogen/Creatinine [Mass ratio] 17.6 mg/mg High 4.6-16.2 [facility] Comment on above: Performed By: #### 3 [id number] #### [facility] (DEFAULT) [address] [place] [address] 84036 Lipid Panel Standardon 04-22 Cholesterol [Mass/Vol] 158.0 mg/dL Normal 66.0-200.0 [facility] Comment on above: Performed By: #### 3 [id number] #### [facility] (DEFAULT) [address] [place] [address] 05713 Cholesterol in HDL [Mass/Vol] 51 mg/dL Normal 40-71 [facility] Comment on above: Performed By: #### 3 [id number] #### [facility] (DEFAULT) [address] [place] [address] 08160 Cholesterol in LDL [Mass/Vol] 98 mg/dL Normal 1-100 [facility] Comment on above: Performed By: #### 3 [id number] #### [facility] (DEFAULT) [address] [place] [address] 68663 Cholesterol.total/Cholest amanda in HDL [Mass ratio] 3.0 {ratio} Normal 0.0-4.5 [facility] Comment on above: Performed By: #### 3 [id number] #### [facility] (DEFAULT) [address] [place] [address] 25057 Triglyceride [Mass/Vol] 43.0 mg/dL Normal 0.0-150.0 [facility] Comment on above: Performed By: #### 3 [id number] #### [facility] (DEFAULT) [address] [place] [address] 08034 VLDL. 9 mg/dL Normal 5-40 [facility] Comment on above: Performed By: #### 3 [id number] #### [facility] (DEFAULT) [address] [place] [address] Progesterone LCon 02-11-2023 Progesterone LC 0.7 ng/mL Invalid Interpretation Code [facility] Comment on above: Result Comment: Foll icular phase 0.1 - 0.9 Luteal phase 1.8 - 23.9 Ovulation phase 0.1 - 12.0 First trimester 11.0 - 44.3 Second trimester 25.4 - 83.3 Third trimester 58.7 - 214.0 Postmenopausal 0.0 - 0.1 Performed At: [facility] [address], [place] [id number] Bibi Irwin PhD Ph:[phone] Performed By: #### 3 [id number] #### [facility] (DEFAULT) [address] [place] [address] 70152 Coding Summaryon 01-17-2023 Coding Summary HTMLBase 64 TkiluyhlTKd5fHg+PGh lYWQ+GK2PNIXcV58wdO CtjA0lA8MBITnQSwplG PZHWEuAMbGttxEpZU4m aXNjZXJu IC8+AL8fGKJoZdtvsPF vd0M9mEY7B95lsr3wDZ zstIK3KADbWrBkdmzic 0jcfSt3JGjuJuysHqDn ROGgrA71ABR7nE36Ry2 4oAUtlWEqc5jqoPy1Jt YpPAWqJZK3hOnoJWijw 0ZcHTHzO79xyCVqo8H6 IGNvbGxhcHNlOyBlbXB 3wR4wWWcvtlbqd9lthx fdLfe7qd49zHHre6F6o NR2K7YuxaJ8TBLyvCGg PdwmwBCMaS1upocxf8a veimoJcMiOGMeSXy2MH i6FUAqoEyzQqCzRO93B VE5FKMijmYrP2ByZUHb iBiwXqH8s6Y0Oi1YN4L AWrklF3IHZLIYKOjnzU Q+KH24mh83H7OkPfcsB hc6AOMkHKZ1bOJ2vY6s OOIxNAmpg9B2fAW9E4Q nxqWcjo7li5mpXSBuDO ghS02uwRBgk2X1SBBxf RZ2AAUcdDdwLlCsrV13 Oyc+YEPytGzie6VeFto im3vxh0belYj1VjhoQP KnoaQkvYbiIXJ5q0VhS q4tTQIgiYH6cYC2nD7m EkQlCkK5BMeeB954AvM jpUBwJlqpJ63oB4ZouC A+CRLnPao7GYJueWxgI N2oO2AdDRVylrtueRAw iEdfZW3cYKNdrrziWVQ vsV5zTGDaR6n1SqQkZz M0ROciI8YoZAUhxzfcU r07zS3yXyLoRiY9HIak Z7EwpeO7CPDbhLVrJAt uEZZ8R71fr2D6SDWbAH IzYPY6rKM3kY5riHjes jogbGVmdDsgdmVydGlj RYqqNBxrL669QJCyfEx nPkNvZGluZyBEYXRlOi AgMDkvMjUvMjAyMzwvd GQ+LWTjUAA3jWakWYQo yCIkWSayYd1gcTlakMl oPT1lPJMgfxxlHCOjvW 1oNQRscVIjhAarXW3rW WZqlwkeb015SbOoUHF0 YFNhkREbT8XixO4rUxH vCWJiEHUcO5HqwRWcNO xtI211CTlqNoR2FMNsc aUlH5ZoBOYqaTrqRtY0 h2H3Wk2Sc2PtghphZ5K tqNRtJhVdGezvMPj0J4 RkPjwvdHI+WJ31CCEmC H40DBy2XMR7tZagYHar ISUmN1PukG8jZtFfUFO kZGRkOyc+PHRhYmxlIH dpZHRoPScxMDAlJyBzd UwyXW0pEp0xTLOzOGCs kTpyfRBuAbZpj1xwNNU bPFdbMH7hbRcmP2MxvH B6TGRgt2a1Qa68E70pR 3JvdXA+LVSxmPP3hPU5 oY9hBxQcBjD6CYglW91 9ZpKnxRBfEezpx2mzp6 vqqQd5LgY1RGCwauTpl PyfPNK7c2ClKi98F11d IHdpZHRoPSIxNSUiIHZ dqBjgjn6jbU8lEx2+PG EnhCK6sFP3kL8tFbDdP iB5QZxjA838HjYwuOUy Ryphj1oww5dwnFh4EiH dZKAploJmcJhbIMJ6y4 FtEb94H4RoxHrwh6BmB sf2mz08yCAxl2Q4bAG2 Z7VwBLRsunqauSEzaTj jHN9gZCTkdalkWUFbfM 5eSSOuT4l0IfFaFdC4U OmxP1NezdN2JUCodPAi VLYcqPQGbH6fuysfo2d eqzqnSeKiFAPkKLj9JN k6PUJcbQybXlTfMHS5O gR2BVF6rNGdmJ9ijBml famcsB1mLbf+BZS3yKB lbHQDSW2bKsprxAO+PH YvDFX8rZgyWRyzKLXca I2kUABcU6h2KaHzVaW0 NNhiL0LwrvK9SRCiaUG aGVYbzOZFqA8jtoldl8 tofndoPzPpYLMoANd8S Ng7WQNcdNxnKjWyYKE8 ClI0EVM9kWKkzJ2biQb xqhvucH3oFbi+QmlydG juSNH4JQh0L2HgRaw2K ZZrkVdhSQ1wbRAfJMre Ax7cmNhotDdhHY1fIPN wtefuv396UxTpy3bhQG OegPAuHTxvIMS9K74ui 8G7GOCqMNEyDNF8dVW7 oC7odMxtqwvcbFVhkSy gdmVydGljYWwtYWxpZ2 01FRKmzXivBvSvZXs4P 2QeVij9LVOscVacUU3s eOJxWCdfUg5ewTgudMd wKI8uWYMrfoqur855Wr Ynu1urUALunIKdGLpqD CY6Q42fm6Y3APFsSHSx WJV0zWA7tZ6apCdzbak gbGVmdDsgdmVydGljYW wmVEjiL473FELoxQehD cAevHs6W5WpAto1EOUk hKrpVL6fcXCnCGyxTe7 xdZhzrWjmPB6kRQQdop geu124JxKid3ddFITdn TEcYJitLNO0E47ye8I1 NYJoEICgYUP7yGY2hQ1 hbGlnbjogbGVmdDsgdm VbhUzzZSzxDYnaO788C HRvcDsnPlBhdGllbnQg DPgcEAp5R0UsMhdrwIK +UT17SLPpXZ10qVAukY Syj7ecxBp0IjApECSzI UM4yKzfAZmhu3CiHJQo X88xoBMsl9H6HTCayNj ejHXhCoOaiYR3zQ1oDU uryhtet4fmkhjeNuwlk 4rdvc92fE38U17fRWil ZHRoPSIzMCUiIHZhbGl qlq5ofR0cRc1+PGNvbC L4cRG7wF7wAWQmJdW1Y NyjC119EcVnwMNmYilw l0cwo5kdqEg3TeB6IPV hxrRwcZnvSCZ1m3IsDo 29P07eESfgVAPjIPFuH REsLQBxvWpvcp6llR9x Ii8+VXQtwJW5tIL7mP2 oRtPjIsW6WRfbA782Uk RcvXFtIdesE83bI4Maw XA+TMEkWqk4OCWtwWji TK7rsZUvMGudZi6xRLW 2UfOfGdYuTAmaM2VqTM HsrglvxmevcRO6OODgH TTerH83Hk0zwUhnYLEw aATKvC0ylryuk0nzzkw aHfWfXKDgTOe7ZAm5BQ FjgBogWtXtZOI8WtK4B LS3sVJxdR9wwAuutgks yZ3dX5LlKLDgboezQh3 9fH5dTuSbPtF4PDcaPr c+QkFLRVIsIEFMRVhBT kRSQSBNSUNIRUxMRTwv dGQ+HOFtVVV5xIpoOPq eUDMetL6tAFLhY5k3Vj HhHiF8PDouD4JlBPDmn lxsGo51rI8rHdBxUgA7 EVxlG4KrpmC5LKMuhGL yDDilUJX7R28sa5Q5GB RjENAlHTF8iIB3gN3ui GlnbjogbGVmdDsgdmVy oXmgKRdmPZeaP662CQH rqQtkQrEwJcN5ApCiKE X9L0BqWci2VTGppNfxI V6ezZNlSXgqQb1szUlz wOixZY8vJFJtoaeuLCG wxI5tJIXpyIVihBidVZ 7xDMSsclqyd534EkCrD PL6QCHrcDAjU0IimH2x EfCbFOScVKEaQ9CwvKM xMVwwH734CRzfBjL4AZ OkojTcF3LxQDBryOxiG cD2m2O2Ow2pHJXYCWLp czwvdGQ+XXMcBYE9bBq uWQklFZSduS8kXTAuN2 q2BbKbQuV6HVixO5DsE QLzujbzTi25jG4zPnUu OaU1EOqcO6WbbeZ5ZEQ lbARvPXilGJD5Q47xn5 M4YHFrEKCuNPE1kID2f V7bpHxmrutolOGliBvx hfGbzUprGOivWQxrI93 6IHRvcDsnPkZFTUFMRT wvdGQ+UVFrIBR9bYieS EzyKHMzfO2nUZPmZ6b6 KeCxWsK6XSxrZ6HlPXB rewtaXj20jX4dWyHtUp L8VByoE8QwhcG0BUSpd YSwDNrtCQK6J50pb6K9 DHEzRGQxXUC3dWV4mH8 hbGlnbjogbGVmdDsgdm TdcCrfXPrfCLpoH204S RAmgOeoGl9AFV64YI19 W1HfXhsxjXSqkXZ+PHR hYmxlIHdpZHRoPScxMD CsHrWyoHoaAQ0hEp1zX GVyLWNvbGxhcHNlOiBj e5pjNNEaKVhbJH8aqVe nP9UxjKX7EOWqg1a7Hc 18X43aP2NmgVI+PGNvb OX1rHW1aY5zKuInSzF5 MPmzJ405EqRfjVWpMyk dt5bcj3ckmGl1GnOmRF AzsjRbmXgaNHD8j9PhD q00O77gUTiiKGDeQWGb KUDvCTFnvFxyun1rgL3 wIi8+DQYsfSU7vVT2cY 0zYcElVmJ6WPlqJ243U qWslMAeRkdeK57wP5Fg dXA+YJOyWcf0UELqeJt sOY6ugQQwNCalLg9yLB D0TmBoPvVcALbjW8CmX EIkkujdqguyrVI4FEZn ZSPawO25Fa6dsHatPa5 aMSUxTRZ0HPBblUCdT1 WfsN1sTaNqNCOeKJIcS 2DhtBDkPNowD259KFiw JjC2DWQfxgOiS7QlOSF sjOfrTtZ3v7G0Fx3AhI gzbXKmQQ3jXpLxWWb6E 1YpIgd8VSCinSmaIA3a dGZfXAnnEg8hfPokqDn oIC3wDAMrhrzpl655Ny Bbw3zlDHNsgEJpVHreJ FG7U62fr8O2FEHbCIJx DWL8cLR2vH5ldAyyjjy gbGVmdDsgdmVydGljYW jzQQbfJ110HMHrlCcdU bNCSse8Q6PkUpk4KEDi sXpzZJ9rlOZzPKnvKu0 wfFaeoLndCW7gEMJvuf tbq592KgCsv7kyYTLuf NAlCZztDUK1U21rw7P8 BHXbMBZpNXF7nJU1lE4 hbGlnbjogbGVmdDsgdm HeaZsqLVcdQFcbU103X VYowDjnKj7UJko3C7Uz Vcq0JNGxfNnvTW8toHC fRDnrVp5dlGkgnOmePI 5nCVTyyragx812XgPuw 7eeQAAcdSIyBHgpZDR4 C30we6Y4MUUbWKFdZYB 9wAR6iK9ryRijvrlolB VmdDsgdmVydGljYWwtY VslO052XJDkrFuuZvOa eWVyOjwvdGQ+NY49gw9 8Z6AhChdmOva4OJUhQC F6lQQ1cE0jKRSkQYmvy 4B3cMA2F6HskiNrmx6g b2x (more content not included)... Normal [facility] C Throaton 01-12-2023 C Throat Ordered by Discern. Normal throat dong isolated No pathogens isolated Normal [facility] Comment on above: Performed By: #### 0 [id number] #### [facility] (DEFAULT) [address] [place] [address] Progesterone LCon 01-11-2023 Progesterone LC 8.7 ng/mL Invalid Interpretation Code [facility] Comment on above: Result Comment: Foll icular phase 0.1 - 0.9 Luteal phase 1.8 - 23.9 Ovulation phase 0.1 - 12.0 First trimester 11.0 - 44.3 Second trimester 25.4 - 83.3 Third trimester 58.7 - 214.0 Postmenopausal 0.0 - 0.1 Performed At: [address] [id number] Bibi Irwin PhD Ph:[phone] Performed By: #### 7 [id number] #### [facility] (DEFAULT) [address] [place] [address] ED Clinical Summaryon 2022 ED Clinical Summary [facility] ? Urgent Care [address] [place] [address] Clinical Summary PERSON INFORMATION Name: BRYNN WALLACE Age: 22 Years Sex: FEMALE : 2000 MRN: Acct#: Visit Reason: Throat pain - Adult; Body aches; SORE THROAT, HEADACHE Arrival: 01/10/2023 13:26:17 Discharge: 01/10/2023 15:12:00 LOS: 000 01:46 Check In: 01/10/2023 13:26:17 Checkout: 01/10/2023 15:12:00 Address: [address] [place], [place] [id number] PCP: Leah Azar PROVIDER INFORMATION Provider Role Assigned Unassigned Genesis Calivllo PA-C ED PA 01/10/2023 13:47:57 Kristen Velazquez RECRUITMENT OFFICER Nurse 01/10/2023 13:53:38 VITALS INFORMATION Vital Sign [...] Adult Follow-Up: With: Address: When: Leah Azar [address] [place], [place] [id number] DIAGNOSIS: 1:Systemic viral illness; 2:Viral pharyngitis Patient Understands: Comment: Normal [facility] ED Patient Summaryon 023 ED Patient Summary [facility] ? Urgent Care [address] [place], [place] [id number] PATIENT DISCHARGE INSTRUCTIONS Patient Information Name: BRYNN WALLACE Age: 22 Years Date of : 2000 Reason For Visit: Throat pain - Adult; Body aches; SORE THROAT, HEADACHE Arrival Time: 01/10/2023 13:26:17 Phone: Primary Care Physician: Leah Azar Attending Physician: Genesis Calvillo PA-C Comment: Patient Education With: Address: When: Leah Azar [facility] [place] [address] Sore Throat A sore throat is pain, [...] these instructions at home: Medicines ? Take geta-zmc-ykpdpmh and prescription medicines only as told by [...] and water are not available, use hand keg header. Contact a health care provider if: ? [...] can cause a sore throat. ? Take zfph-qao-hndnegc medicines only as told by your health [...] provider. Document Revised: 07/08/2021 Document Reviewed: 07/08/2021 [employer] Patient Education ? 2022 [employer] Viral Illness, Adult Viruses are tiny [...] grow ou (more content not included)... Normal [facility] SARS-CoV-2 (COVID-19) PCRon 01-10-2023 Internal Control Pass Normal [facility] Comment on above: Performed By: #### 3 [id number] #### [facility] (DEFAULT) [address] [place] [id number] SARS-CoV-2 (COVID-19) RNA HERBER+probe Ql (Unsp spec) Not detected Normal Not Detected [facility] Comment on above: Result Comment: Perf ormed by PCR methodology. Performed By: #### 3 [id number] #### [facility] (DEFAULT) [address] [place] [address] Strep Aon 01-10-2023 Strep procedure control Pass [facility] Comment on above: Performed By: #### 8 [id number] #### [facility] (DEFAULT) [address] [place] [address] Streptococcus A Negative Normal Negative [facility] Comment on above: Performed By: #### 8 [id number] #### [facility] (DEFAULT) [address] [place] [address] Progesterone LCon 12-14-2022 Progesterone LC 6.2 ng/mL Invalid Interpretation Code [facility] Comment on above: Result Comment: Foll icular phase 0.1 - 0.9 Luteal phase 1.8 - 23.9 Ovulation phase 0.1 - 12.0 First trimester 11.0 - 44.3 Second trimester 25.4 - 83.3 Third trimester 58.7 - 214.0 Postmenopausal 0.0 - 0.1 Performed At: [facility] [address] [place], [place] [id number] Bibi Irwin PhD Ph:[phone] Performed By: #### 8 [id number] #### [facility] (DEFAULT) [address] [place] [address] Provider Orderson 12-11-2022 Provider Orders [id number] Normal [facility] Coding Summaryon 12-03-2022 Coding Summary HTMLBase 64 DcuaxuayBTe3eWt+PGh lYWQ+LD9YMOArH50dzW FalY9pG1CXNVgLNhdcZ YCVUZvMUaGolmPyHJ2z aXNjZXJu IC8+VI4cIIOgUupqvYN ln4Z5wYU7P08adu1xIQ jmzDX8WNHzJsKodavgi 4rhgNt3FNnzNrrqKeKk DHAzlT29FGG9bJ56Ep6 1bSCxwZQkb7owmZo5Bm LiGNBpAOQ4uWjwYCwfi 8KeFNNmW09nkJYlw5R7 IGNvbGxhcHNlOyBlbXB 7xG0tOHfweypeg2ixma yxMuq4vk51xGNgz3E2d YU4C1YcenS7DVQaiAVe TlinrXIMhJ5zfyxbw6x eerqyIbTbNIDdAUf1KH d2ERYhdEujSmIjDY76E KH6KLCzpyVgL6DuAOBs cLmjLwL3i9C4Wh4RR7W XWmboT0FTTKOXKCytzK Q+VA66so25X1WbVwdvN kd2ZTEsGJZ9oVR5vX9a LDIlTHkob6H3hOT6Z5N ciiWwvg8af1nrREQjOJ oeY07xvLJui6E9KRGjn KD6UAJrxJfjBlMlwQ85 Oyc+AYOquGlwn6PfHcg pd4plw0lfbUu8UzohPM UdcdZmeEadJAX4c9QkH k1oCUDrbDJ7dVQ1qR8g AqKuCjM2HPwrN794SwX luELxUccrR99dV4FjqC A+AMBpPks6WUScaTmwM J7hB8PoJDNhapkmaWDn aQtqHZ6zDNJwtamhAFC dhW7jECNtA8u0FcAwFd K6FQguR5YmNKXcutvqE s70yE0gUjXpRcU0WKhc F2TydiR7UWRciKUuGMg hLTP4A71ji3N5TMVfFO FzOMQ7uLU3hU0mqMkzz jogbGVmdDsgdmVydGlj YTsqBUoiD212TXOxeHp nPkNvZGluZyBEYXRlOi AgMDgvMTEvMjAyMzwvd GQ+NIMlQYI6wZhnSJHi rHSdZTciFu2qaTjpeQe qSC3rMPThzkdsKKLbcU 2hIPAjbQXjzDscMK1nC CUhkfuzd684SbWeKNB4 NLDtiZFoP4XhpM7oNvG gRIEfYMJzF8RpdCTlHX yeP529MAmoNcP9SXGkj oMoS0LeSFEhyAjgSiM5 a1S4Wi2Ur5YqvvjfB1X avUYgOyWwMiicHZp8I6 RkPjwvdHI+SB27URKmI W07IOb0VXW8eXaxABed WTZfS0DiqL3zLiRsZJG kZGRkOyc+PHRhYmxlIH dpZHRoPScxMDAlJyBzd RsqVD1eTm1hMEKmZDOz pEzgmBDlObIzc8hiRSW kCPrpLY0vfSxyN0VkwF L9QPBlj8s5Lf12N12fS 3JvdXA+JOHrePG3dWA4 pN9zUfFjDkN6CVscY03 7CvCaoNDaJmqdj8sus6 hgjJq0QbP9LYEolrOhm YbkDGK7g3MmPf78C00v IHdpZHRoPSIxNSUiIHZ olHuotm3tvJ1dTb9+PG AipAZ9mFS6bF1xFrJbD gZ0CUmxJ381LkMrmYOq Lbnit1iwi2vpvNo5MuZ nFKAdpxJpkMahZOW2v6 FiNz15S9PuqMrle3RzH dt9ks39nOSmr3G9uXC7 S0VnODYaksdlnJHufRd sMB7eYORmlwbfULKkkA 5yUDTxL4r5YlPxOhZ2Q LxjS9TwevR2WOWruVUp LHAzkJQWbZ8qzytvq3x wuyumDrUxJMEpYSi0AD a5THMibRsnEaRdWSC0Y fH5FFX7nKFmeX2acWgx anfsiX8tSnn+XBF6dHF jiUCVVM1qMircpSS+PH YaYGR7xJrhLSgoLTShm R4jRDOcP4s1WbPqSsM8 BJilU5FwepQ9NQMguEZ cSDUexABNdN7zphrju9 yjpgwwUoYsTANxLUt8A Tf4YLRunZkjOvVqMDZ9 ZkN0LCB2eAOozY6wmJc hbkcevR1cTme+QmlydG bkJUL2ORk8F3RyPxw7P DQfrHlvQU1cmZLaCNrr So3rmCponQshSJ0nCGN xmhmsa310AwDln1ghWC VymPMnCMieGBA8C29qf 5Y0JCUzTBAgYZH1hVI6 eF9hfNzqixngqIWbxWo gdmVydGljYWwtYWxpZ2 26BFIvnWliObNeSOi1H 4HcLhi0VRHrpVjkRN4u aVYhSGbkBc8usAmhcJj wGX3aHVSnfzmsh728Gc Isa6gfGHYfaZIaPCijV OM8X86lo2G3JDNkNVZg KOF5gNY1qF1pbUuehyj gbGVmdDsgdmVydGljYW qwQAlxM233SJLffChzN oRwzZr6C0NdNjs6EEXa aVkdOV6chENwPYkaYb7 clUfglJggZJ4cOFEmed gso561MqOcm7trABUcz VSxDRgaQGV0G43pt5Y4 CUDgBVQmLAX2mFV8oM7 hbGlnbjogbGVmdDsgdm VueOikWJbsQLjmM318O HRvcDsnPlBhdGllbnQg XGcrSCj9P1GnWxvfjPY +KP96GBBbZL15yPTegM Rmf8sniCc4FaGrUBLoH VU8cXnmXRhmu7WjNHMh S09fyLMay1A0GWQqhJd sdSZtUqDkkPB9wO3zQG jzlkncu3bvzqxdWdpij 9tiuz10eA11E29oTApi ZHRoPSIzMCUiIHZhbGl kbq5ogB8mKj1+PGNvbC H8sOP2pJ0eTQSyMhK9J NdlK341HpSfqGIbDvoc z4cvb3ewvVc4GzA5ACG ydxRlfXxoLTN7u7NkVm 65A11tPDjdGALdVFEfV LLkFDAubVnenq2waP6v Ii8+EBCniJN0nCB4bH4 kFhSyQzV6RVgbF473Ug PwmJSeXecbI97aR5Cew XA+DBEjKol6QENfyJhv NH5lmYMqWMujVr7kISZ 0FxAmWiWdCExiP0SbTL JftsjrbchigPN1TPBdN VXolW79Tf9zzQlcUBVm jFAZfE8vxotpb3wuket zWoVtVFTwOEq3NNh0WG DgeQzkNzVwTDT7OlT6A WR8sAHmaW4nwGncrdgm qO1sH0MrTQBsrpmpPu9 1nC7cPxThXbJ8CYagBt c+QkFLRVIsIEFMRVhBT kRSQSBNSUNIRUxMRTwv dGQ+GMMvELZ0kHoxKQb mNHJzsN4fWFSoE7o5Lp KxCuR3TIidH7PrRUEqu kqyYa03uG5dUoWwYnG0 HXyqG2LtjgK4XFTztNZ qCEttVFQ5U38sx7Z5CE XbMAPmLSC1mUG3wV9bp GlnbjogbGVmdDsgdmVy hIgxHOcxQKplH509EHY caWzbMhDmQdX4GdSiJN M8N4YjIoj4SJZurAriI F1dwEJyKVfqJo0xtTbb cAhyLI2cCBTguiqvEMR ltV0nUJBvvXVkwEcsTR 8bLGUjqkuga560UfDjW XB1LFEgcKIaF6SffK1e BrTnJUPgYTJrW0QtgVX rVSjaM302KCwwAmO0LK IujoBhZ6FhMGQojEycY tY6r4J6Mh5zSFDCPTRw czwvdGQ+YIKdKBX8lSk qJSpdWKJeoS2xQHOdT6 i5KiRiVxT6FEtfU2GhS ESzuibgAj27jF4mXwUl AhL8YNkcZ8LpsgY9UNT wfQKhACxxXJI6A97qy1 Z5KLMrEQLlBVC7wAG7e C4kgHjidyeukDVfmMyp ooSzzGwwTSgfKHkzM36 6IHRvcDsnPkZFTUFMRT wvdGQ+QWJgVSF5lKmwE BjiYGMlwT4sBIDoS3e7 XrAgOxG3EVraP3LfDSW wytzdUu41yU2lYbFrSg Z8OYrqX0BhovG6DSLqx OZiIBeoOCE9T32az5X3 BXFyMFTfRGB0wRY6aD3 hbGlnbjogbGVmdDsgdm KuoNznGFznLWbaT457J UJbrMbpIm4IWH40DT82 G0CiSyuagIOejKF+PHR hYmxlIHdpZHRoPScxMD ExXwJmkIahEO6lYo1eS GVyLWNvbGxhcHNlOiBj r2wnYNZkWLtfBO1htMa cE2NxjSK7QWYhl8b1Qj 11C32qN7OqsZE+PGNvb TB3cXZ7yJ0pOmRqSfU4 VCdwW409SpMkrWPrVyy ba9wjf4ckxFp6RmMvVB BmfuOaxFarOET9z7LgP r18C09nILozZKExZCQw QEFwXJByyRhyjy2qrY3 wIi8+RKVovMS6dMH2tX 7mMlEmSdU5SHitX847J uRebTUaBlfaZ80qX3Mc dXA+YWXtQea0CDDavKd fUW9yvRFvXAacDk2rUR K4OnZfRjGhVVvoC9XoD SGoctzpbrchpWK7VARu ESTurR61Cw3gbCbjEl0 zEGVyTRP8BXIlnIMkM6 UseC9qFsCmMBDhPKKjH 1EktCMtMBdsG914XVci JrC9PKVlwsImZ5VnNPB joRqxJlM4y3K4Vv7ViP mjvMNkWR3mAuQfIXz8I 4OiHpa0EKEhkGkpCR0d nABxMVxcJe7ddXdjbVs xVP9fCQGbiltsi567Fd Hly3izYTKudBUwKYanA GH4E80de7W9HBWoMXQb RJQ4wFD5dL8edSbldsu gbGVmdDsgdmVydGljYW zgUDydC597YYQxrHnzO tNPSti7I7SkUlx3WIDe zHaaVO9lyLGwTYnhYj0 evHjyzIoeUP2xDMHqtw eew903DhRyt2ydLVRwr LXeEZskPAE7V67ml3N9 BTDhYGMdUYI2cLW5gG6 hbGlnbjogbGVmdDsgdm HvzLyuYZmgBSyoB346B NXcuVqdOj0ZWft8O2Vh Sad2SLEasOwfTG0gbOG tVSrhWo4qnVvlkEhaWY 6rUCAttedfd241JkKgx 4wrMQEneYVlFHdsDIC2 O64li7F7AWMkDTTkJGV 1lWD2lD3kiOwjuhfrtO VmdDsgdmVydGljYWwtY ZwuK908YUNjzXxgDcYd eWVyOjwvdGQ+GZ15uy7 6R1DgBbifZfm8YQZqGW H6pVE5hM8sRZChJBdtf 1Z2fRG9A1ZwfiOwit6o b2x (more content not included)... [facility] US Pelvis Non-OB Completeon 11-29-2022 US [...] MD 11/30/22 10:38 a Technologist: Geno TORRES [facility] Provider Orderson 11-26-2022 Provider Orders [id number] [facility] Coding Summaryon 11-22-2022 Coding Summary HTMLBase 64 QffbtafuDXu2pLo+PGh lYWQ+YT6JWPCaK18idQ EtuS4vY3ZWOQtSXpqyN FSITLcDBmIuixRaYY2b aXNjZXJu IC8+VD7cTYNlRtorhSW ut7I1tIN7J11xmr7rJV rigZY1SXYfIaUoiyvwy 6tjrSo2KVdjFumcIiIo KZZcbT46ARQ3gK33Jl8 3vNDoeVIbg5itmOf2Lk VlSAOtYNO0uJnwPQzgk 8VzOMMsD88uuJWug4E4 IGNvbGxhcHNlOyBlbXB 8xU0nJIguehjxh7ccll idOvc9jy32sEZhk7E5b UV3Z2AwepO8FOXxiQHi LdqbiUEOzY4xtuzdi9d kicpsEnScFIFcCGk4LZ h9YCOrhHvtHnApMM51L BU0THLjdxZrO7PnADLp pIqlUiC0c2J5Cn5VW8F XGrjlI8HDPVGQOPdtsL Q+MS80xx23Q8FxYmubG li2UEQuCIL2fRT5yD1b NLCqEWefb9H8sEK5Q9O cqrGpnx2sc1xuDJSeGC onS85kpXUko6H2FPThh ER7UIZlzGrdFoCtfO63 Oyc+LSVtkGtwj1DxJvd oe3egz8dkiUw6NcnrAT VxhhJemBgnZHP2q7MzM i5xUCZeeWL4uZG9zC9h TuInVsG0IUeoX749BeK nuTTmOrpwL89pK8XgoN A+HMKjRrd1ASWnqIpyM P7vD8HzTTUykawuqVZc hGysZI9jACVvmwboDGZ xzE5uDRWdC5u4ZjPqYe I0DEbrB3AuMFRbovzcV b25kI2kWnMkDaD2IGdm E7XnrcF4VTIvoNDqQZn eDKY0V10ji4X6KTNrQJ EgCKS8uFO4fQ3tmMsfq jogbGVmdDsgdmVydGlj YGleFIkmC253DPNkpGs nPkNvZGluZyBEYXRlOi AgMDcvMzEvMjAyMzwvd GQ+NOLdPLG0vDjbOYLj hZSoDXovGq6jdQfwpZa tJX1uPZEakysrQNKggD 8oVQJqsWHaoXogSE9fS ITtjjupf583JxBmIUV9 LIKckIPtE4KatF4xBfL pZXMfZYBpR3UwwADpRR dlJ999VXmlGxY6SVOnf zAqV3BaPIErrFfxKmV2 q1W0Jk7Es3FjhvyoV9Q sgGWaNnSpYnjkAKd7A6 RkPjwvdHI+YV65YVLaN V52ZRr6RUQ8pMgdDHan AITtW1JquQ1bMrQaCUA kZGRkOyc+PHRhYmxlIH dpZHRoPScxMDAlJyBzd KxeOT2wSt1tEBDiCBSd cLoigWDhQbTxm7ceJMW dRNvzGY6kfWrpX9AvtH T1VNTvi9i2Ku41I55aE 3JvdXA+RGJheBZ7vBM9 uN7gFzYePfC9BZeuL75 9LfKjfYDiNmqnj3ylr3 yeoPd9BeU7VISgneFpy KboMBN6u7OrIa75I28a IHdpZHRoPSIxNSUiIHZ ocIdyjl6clK1vRc8+PG AmfTO2jMB7jT1qMyFtP aW7HAokL670CdFmtAOt Tbtlq2tzp0fyuWj4FaL wLNHbhfFxwPxtJAZ1m0 YtXx80C0HlbOvzz5FyH tf0gy23mKTlh5P1zUN5 R0HpOWYvfymweBNyhMk zAX4kKJFgsxzrGWLyqJ 5wZJMdU3d9ZqWzKdZ6J PfzK4VlprF1TOWrqDMb QWNxzKQUlK3sgwzdf6z uunahQoFtUPJgHWg7NC r0NGWbuSndFbUaZLF4N oT5CEP4vQQitP6etRtp djbwvK8nCbf+DSE8oJN slPXWRY2bTecegCQ+PH LqIBD4mUqpTBreJXFwa H7wRUWrB4l3ItLtUaA5 XXksB0RdcgX5IYJvyJW sMPIwnJBCbY4bzvxrr4 agpgboKwDuWVXwCDk6X Su5YZXncEptBgTuUKU8 FvV1PPL1uFIvlP2jbJs ahbdncN8lAdt+QmlydG cjSPS3XRl2C5GwEnr0O UDohPheBL9qaIGoPLwo Kz1beQhdlDqzRU8oGSX zusilh485NqLsg4wzOX IpxYLsWEoaATF1Q31cy 9E9TREzDHUpEZH5wHF5 zR2fdRwdnlbujHWztWc gdmVydGljYWwtYWxpZ2 96QTBmvKkeLkOwYIb0J 0DyBrc9AFMgsXdiJB7o kNYzZSizKu2yqKqzhDb qYX9wXTAswruus228We Dtr1cfTTCmeJBvUCbsP DZ2B18oh2O1WSZaPISb OJI1dWU5lY3yqSiboot gbGVmdDsgdmVydGljYW keLPzpC692WHXhySrpT eAoyJe9S8EgSzd4FUFs uKxhIJ1etAWzSLqpOc2 rwWlcuTbeSY2lYYSbdq eqq938IzXgx2jvHGWnw IEmEBinSWJ1N91zl5Y9 LZUuRJAjWHA7aEW9nF9 hbGlnbjogbGVmdDsgdm VrgZicNBbaWLuiR789M HRvcDsnPlBhdGllbnQg RHusFCl4A5EyLsotoXR +QX82MMIkOG62pHHqgA Eae0xyfPc5OyQwCRVqL SM6bSsbCItrx7SiZSCh B97ieYQvy7Y9JOOuzQn iyZXxYrSqnTI5zA4ePL xudxcgp9vieqnyVuzdi 0onoj38kG25V95oQVdq ZHRoPSIzMCUiIHZhbGl xia9ptB9gFp7+PGNvbC B4nJR7eA2cAFNiRfX7O HkdV566WtOoyFQqAcst v9jxu6worRo1OeH4SWV esfNdwSsnJIE7c7YaHy 42E36yKJpyARXmRKKnC HJiPDEvrVuhoa0daF8f Ii8+TDVmcUM4mWE4hD7 jMuOdKwV6BRwrU646Ik QprSVaAtidW55wW0Nac XA+LJHzUhh8MECpmOpu HA9jnZQvAAywRm0yHXZ 8UiLfWgQgFAajA3AkJH WuzqpydxggsOX1LGSuP IXavQ16Gq3dfArpLWRu uXYVnD7bqugdu3wxuyg zUlTvRNEzOPn9VXo5QD PvaThoUsQiCQM3DzM7I BZ0fMFqcG3mmGbhpvzd jB2nL4EeFTKqolahRr9 4jX6gDiDuXqM0FFvbRp c+QkFLRVIsIEFMRVhBT kRSQSBNSUNIRUxMRTwv dGQ+YQZdPOQ6jGpoFKq yKWPmpU3gFXJuQ1h9Ph DpXeW3PYerB6FsTKVie djeUp95jN8pAbOzUsH8 XYqiH6WpqjN1XBDytLX vBAztVKS0E47wg7I5ZD CeGLEwKNL0pBT4dI4eq GlnbjogbGVmdDsgdmVy yYsaKMupWUciC381XQT zxJpuLoGwXzV1ZuGbFI K2J2FwUwn2SILhuWvsX S9vxJHlWZpzWe5ehTws hDogXV4dMYEalhlmKWX zrQ6lYLZafAZwuMqtMS 4iXLTsnbhhl456LjXcS FI4UAFkkYJgQ8XhdA3w JuHvQQElOWObF0UhyME tRWdhW379HBufQsH3ZH OnpwGqM6NnJKQgkLtfV wG8i0G4Px4yIMJYQBJp czwvdGQ+QMHoOGA6oAh xAMtaRWAxjH4tINEqX3 l3LuUyWzK7HMblL6IpH ITgcotuIm94eF4kRxXm WgH4RDhoP1EikiB2ALP kgUDlJOcpBST3Q48ln9 W1TTMgHVUxASQ2aWC8d Y7srUpmcqhtkCCvxNxl kpCgeWnbCCelBSghZ53 6IHRvcDsnPkZFTUFMRT wvdGQ+ZWFvDEI2mCslS JjbSTJgpA2wXHYwY2c1 ZiVpHuX4IThnJ9MfAYE ykkxsUw31nU3wVpCoTe P0OSdsX5PlrzB2LVYnn HImMWpyWVY6R48ie9C0 PDAmAGThBHT0gBM1xB6 hbGlnbjogbGVmdDsgdm AayFsgVHaeTOtuX093D UGnxOzvZg9RXI53LG85 R1IiCzfxyDVcpJG+PHR hYmxlIHdpZHRoPScxMD NtCsWwxAdfER5kYe2qH GVyLWNvbGxhcHNlOiBj n9ofYIAnAKrxTW8yyHh tE4AqfRC6LZGed7c1Lr 52Q94zK1HxwXT+PGNvb LL6eNG3rC3sXvVoBgU5 DSmhU344BeAhuWBsTpx xo7knc0hjhSe7ReQnPE CymcVipArlFZU8c6SpY a48M71jOZmaAHFkWCXb FWMkLIFvvKvufi8atU3 wIi8+AFScyEV5jZT1pD 5aIkRpFlN7EMkbQ124P iFuqUEdXkjfB59tX9Xx dXA+BTJtNrq7JFZatYp cNT6zjOTiKNwfEg2cSH I5HzIrGrFsDPrdU2UbN TUhvzeftzasyQR6CJQd XNRukO73Vy3abSchDl0 kHZZtTTX7WENslKKmD8 HgjL0dVaGiAJUfZLVjR 6IwzNMaUYaxQ132HTpd YuJ9NDFmqdLpR4AiPIC gxUzbZuF7o4W3Uu7SaI ngqAHfRO5eJyDnDQe0I 1DjPjv0TOJyqUlyHK4t oPOfSErnSf6slJsuyHs iCR1jMXJtcbzfi414Cv Eny1bzUTBxmZJnQKryB YB1E80ns6O0LSQpSASt IZG5gJN1dQ4yjOicssm gbGVmdDsgdmVydGljYW axMHonQ756HFZfhTbjN oBWKgu7F4IoNnu8JOJd bHeiTK6vwBKzPHyzIb5 uwEndeZdmJE6vOHVuwm fsu998CpPce1coXWRef OOvNBiiYJZ1O79yj8W6 DFMjIASuSHV2wLB0xD2 hbGlnbjogbGVmdDsgdm NndOvcIKorXXfpZ870F JIfeBmkIa6HUfa8A6Vv Izi9YFQeaEpgZN2gvFN kXEzaCc1adRgkyOejFX 1pPWAuovpwm063IdCzo 0vkGOMhsKYgBLctYOW9 A93ee1M4HEBbLFVeTXJ 7iXS1yK5hcSdtgmshyO VmdDsgdmVydGljYWwtY SuxF568EQMcyKjiNiFd eWVyOjwvdGQ+BC37ty1 2C8GzYhzkPgt9AGDwQX D2pZG7yH2pIKXdROdwg 9H5dXQ2C4ZvkpOsfh6h b2x (more content not included)... Normal [facility] Dehydroepiandrosterone (DHEA ) LCon 11-20-2022 Dehydroepiandrosterone (DHEA) LC 340 ng/dL Invalid Interpretation Code 31-701 [facility] Comment on above: Result Comment: This test was developed and its performance characteristics determined by [facility]. It has not been cleared or approved by the Food and Drug Administration. Performed At: [address] [id number] Morris Nayak MD Ph:[phone] Performed By: #### 7 [id number], [id number], [id number] #### [facility] (DEFAULT) [address] [place] [address] Dehydroepiandrosterone Sulfa te LCon 11-18-2022 DHEA-Sulfate LC 612.0 ug/dL High 110.0-431.7 [facility] Comment on above: Result Comment: Perf ormed At: [address] [id number] Bibi Irwin PhD Ph:[phone] Performed By: #### 3 [id number], [id number], [id number] #### [facility] (DEFAULT) [address] [place] [address] FSH and LH LCon 11-18-2022 FSH LC 1.9 mIU/mL Invalid Interpretation Code [facility] Comment on above: Result Comment: Adul t Female: Follicular phase 3.5 - 12.5 Ovulation phase 4.7 - 21.5 Luteal phase 1.7 - 7.7 Postmenopausal 25.8 - 134.8 Performed At: [address] [id number] Bibi Irwin PhD Ph:[phone] Performed By: #### 7 [id number], [id number], [id number] #### [facility] (DEFAULT) [address] [place] [address] LH LC 1.9 mIU/mL Invalid Interpretation Code [facility] Comment on above: Result Comment: Adul t Female: Follicular phase 2.4 - 12.6 Ovulation phase 14.0 - 95.6 Luteal phase 1.0 - 11.4 Postmenopausal 7.7 - 58.5 Performed By: #### 9 [id number], [id number], [id number] #### [facility] (DEFAULT) [address] [place] [address] .Auto Diff 11-17-2022 Auto Amite % 5 % Normal -12 [facility] Comment on above: Performed By: #### 5 [id number], [id number], [id number] #### [facility] (DEFAULT) [address] [place] [address] Baso Abs# 0.1 x10 Normal 0.0-0.2 [facility] Comment on above: Performed By: #### 7 [id number], [id number], [id number] #### [facility] (DEFAULT) [address] [place] [address] Basophils/100 WBC (Bld) 1.0 % Normal 0.2-2.0 [facility] Comment on above: Performed By: #### 6 [id number], [id number], [id number] #### [facility] (DEFAULT) [address] [place] [address] Eos Abs# 0.1 x10 Normal 0.0-0.4 [facility] Comment on above: Performed By: #### 3 [id number], [id number], [id number] #### [facility] (DEFAULT) [address] [place] [address] Eosinophils/100 WBC (Bld) 0.7 % Low 0.9-4.0 [facility] Comment on above: Performed By: #### 8 [id number], [id number], [id number] #### [facility] (DEFAULT) [address] [place] [address] Lymph Abs# 1.9 x10 Normal 1.3-2.9 [facility] Comment on above: Performed By: #### 8 [id number], [id number], [id number] #### [facility] (DEFAULT) [address] [place] [address] Lymphocytes/100 WBC (Bld) 19 % Normal 14-48 [facility] Comment on above: Performed By: #### 5 [id number], [id number], [id number] #### [facility] (DEFAULT) [address] [place] [address] Amite Abs# 0.5 x10 Normal 0.0-0.8 [facility] Comment on above: Performed By: #### 5 [id number], [id number], [id number] #### [facility] (DEFAULT) [address] [place] [address] Neut Abs# 7.7 x10 Normal 1.5-9.2 [facility] Comment on above: Performed By: #### 8 [id number], [id number], [id number] #### [facility] (DEFAULT) [address] [place] [address] Neutrophils/100 WBC (Bld) 75 % Normal 44-88 [facility] Comment on above: Performed By: #### 4 [id number], [id number], [id number] #### [facility] (DEFAULT) [address] [place] [address] CBC w/ Auto Diffon 3 Erythrocyte distribution width (RBC) [Ratio] 12.9 % Normal 11.5-15.0 [facility] Comment on above: Performed By: #### 9 [id number], [id number], [id number] #### [facility] (DEFAULT) [address] [place] [address] Hematocrit (Bld) [Volume fraction] 41.8 % High 33.7-40.4 [facility] Comment on above: Performed By: #### 8 [id number], [id number], [id number] #### [facility] (DEFAULT) [address] [place] [address] Hemoglobin (Bld) [Mass/Vol] 14.0 g/dL Normal 11.3-15.9 [facility] Comment on above: Performed By: #### 6 [id number], [id number], [id number] #### [facility] (DEFAULT) [address] [place] [address]50 Man Diff? Auto Invalid Interpretation Code [facility] Comment on above: Performed By: #### 5 [id number], [id number], [id number] #### [facility] (DEFAULT) [address] [place] [address] 75982 MCH (RBC) [Entitic mass] 29 pg Normal 24-34 [facility] Comment on above: Performed By: #### 6 [id number], [id number], [id number] #### [facility] (DEFAULT) [address] [place] [address] 24284 MCHC (RBC) [Mass/Vol] 34 g/dL Normal 26-37 [facility] Comment on above: Performed By: #### 3 [id number], [id number], [id number] #### [facility] (DEFAULT) [address] [place] [address] 05115 MCV (RBC) [Entitic vol] 87 fL Normal 81-100 [facility] Comment on above: Performed By: #### 5 [id number], [id number], [id number] #### [facility] (DEFAULT) [address] [place] [address] 77379 Platelet 280 x10 Normal 138-427 [facility] Comment on above: Performed By: #### 7 [id number], [id number], [id number] #### [facility] (DEFAULT) [address] [place] [address] 35975 Platelet mean volume (Bld) [Entitic vol] 8.0 fL Normal 6.3-10.2 [facility] Comment on above: Performed By: #### 0 [id number], [id number], [id number] #### [facility] (DEFAULT) [address] [place] [address] 67726 RBC 4.83 x10 Normal 3.70-5.30 [facility] Comment on above: Performed By: #### 5 [id number], [id number], [id number] #### [facility] (DEFAULT) [address] [place] [address] WBC 10.3 x10 Normal 3.5-10.5 [facility] Comment on above: Performed By: #### 5 [id number], [id number], [id number] #### [facility] (DEFAULT) [address] [place] [address] 31061 Free T4on 11-17-2022 Free T4 [Mass/Vol] 1.06 ng/dL Normal 0.61-1.12 [facility] Comment on above: Performed By: #### 5 [id number], [id number], [id number] #### [facility] (DEFAULT) [address] [place] [address] HgbA1c Standardon 11-17-2022 .Hb 15.7 Invalid Interpretation Code [facility] Comment on above: Performed By: #### 7 [id number], [id number], [id number] #### [facility] (DEFAULT) [address] [place] [address] .Hgb A1c 0.55 g/dL Invalid Interpretation Code [facility] Comment on above: Performed By: #### 1 [id number], [id number], [id number] #### [facility] (DEFAULT) [address] [place] [address] 00143 Glucose [Mass/Vol] 105 mg/dL Invalid Interpretation Code [facility] Comment on above: Performed By: #### 8 [id number], [id number], [id number] #### [facility] (DEFAULT) [address] [place] [address] 91256 HbA1c (Bld) [Mass fraction] 5.3 % Normal 4.6-6.2 [facility] Comment on above: Performed By: #### 0 [id number], [id number], [id number] #### [facility] (DEFAULT) [address] [place] [address] Provider Orderson 11-17-2022 Provider Orders [id number] 07#[id number] Normal [facility] TSHon 11-17-2022 TSH Qn 1.26 m[IU]/L Normal 0.45-5.33 [facility] Comment on above: Performed By: #### 4 [id number], [id number], [id number] #### [facility] (DEFAULT) [address] [place] [address]689 hCG Quantitativeon hCG Quantitative <0.6 Normal 0.0-0.6 [facility] Comment on above: Result Comment: Post -Menopausal Reference Range is: 0.1-11.6 mIU/mL Performed By: #### 0 [id number], [id number], [id number] #### [facility] (DEFAULT) [address] [place] [address]99 Lab - Toxicology Resultson 0 10-20-2022 Lab - Toxicology Results [id number] 1#1.00OTGTIFF Normal [facility] QuantiFERON-TB Gold Pluson 0 10-20-2022 QuantiFERON-TB Gold Plus Negative Invalid Interpretation Code Negative [facility] Comment on above: Result Comment: No r esponse to M tuberculosis antigens detected. Infection with M tuberculosis is unlikely, but high risk individuals should be considered for additional testing (ATS/IDSA/CDC Clinical Practice Guidelines, 2017). The reference range is an Antigen minus Nil result of <0.35 IU/mL. Chemiluminescence immunoassay methodology Performed At: [address] [id number] Bibi Irwin PhD Ph:[phone] Performed By: #### 5 [id number], [id number], [id number] #### [facility] (DEFAULT) [address] [place] [address]2495 QuantiFERON Incubation Incubation performed. Invalid Interpretation Code [facility] Comment on above: Result Comment: Perf ormed At: [address] [id number] Bibi Irwin PhD Ph:[phone] Performed By: #### 9 [id number], [id number], [id number] #### [facility] (DEFAULT) [address] [place] [address] HBSab Qnt LCon 10-19-2022 Hep B Surf Ab Quant LC <3.1 Low Immunity>9.9 [facility] Comment on above: Result Comment: Stat us of Immunity Anti-HBs Level Inconsistent with Immunity 0.0 - 9.9 Consistent with Immunity >9.9 Performed At: [address] [id number] Bibi Irwin PhD Ph:[phone] Performed By: #### 4 [id number], [id number], [id number] #### [facility] (DEFAULT) [address] [place] [address] Measles/Mumps/Rubella Immuni ty LCon 10-19-2022 Mumps Abs, IgG LC 132.0 AU/mL Invalid Interpretation Code Immune >10.9 [facility] Comment on above: Result Comment: Nega tive <9.0 Equivocal 9.0 - 10.9 Positive >10.9 A positive result generally indicates past exposure to Mumps virus or previous vaccination. Performed At: [address] [id number] Bibi Irwin PhD Ph:[phone] Performed By: #### 5 [id number], [id number], [id number] #### [facility] (DEFAULT) [address] [place] [address] Rubella Antibodies, IgG LC 1.78 index Invalid Interpretation Code Immune >0.99 [facility] Comment on above: Result Comment: Non- immune <0.90 Equivocal 0.90 - 0.99 Immune >0.99 Performed By: #### 9 [id number], [id number], [id number] #### [facility] (DEFAULT) [address] [place] [address] Rubeola Ab, IgG, EIA LC >300.0 Invalid Interpretation Code Immune >16.4 [facility] Comment on above: Result Comment: Nega tive <13.5 Equivocal 13.5 - 16.4 Positive >16.4 Presence of antibodies to Rubeola is presumptive evidence of immunity except when acute infection is suspected. Performed By: #### 0 [id number] #### [facility] (DEFAULT) [address] [place] [address] Nicotine Metabolite, Urine L Con 10-19-2022 Cotinine LC Negative Invalid Interpretation Code [id number] [facility] Comment on above: Result Comment: Perf ormed At: [facility] [address] [facility] [place], [place] [id number] Rachel Garcia PhD Ph:[phone] Performed By: #### 9 [id number] #### [facility] (DEFAULT) [address] [place] [address] US Pelvic Complete w/Transva ginalon 06-21-2022 US [...] by Pepito Martins on 06/22/2022 1125 Normal [facility] XR Abdomen Single View (KUB) *on 06-18-2022 XR Abdomen Single View (KUB)* COMPARISON: NONE. FINDINGS: The bowel gas pattern is unremarkable. There are no dilated loops of bowel. There are no acute osseous changes. IMPRESSION: There are no acute changes. Report reported and signed by ALONSO PADRON on 06/19/2022 1201 Normal [facility] CBC AUTO DIFFon 12-12-2020 BASO # 0.1 103/ul Normal 0.0-0.1 [facility] Comment on above: Performed By: #### C BC #### [facility] [address] [place] [address] Jatin Tracey Basophils/100 WBC (Bld) 0.7 % Normal 0.2-2.0 [facility] Comment on above: Performed By: #### C BC #### [facility] [address] [place] [address] Jatin Tracey EO # 0.4 103/ul Normal 0.0-0.7 [facility] Comment on above: Performed By: #### C BC #### [facility] [address] [place], [place] [id number] Jatin Tracey Eosinophils/100 WBC (Bld) 3.4 % Normal 0.9-7.0 [facility] Comment on above: Performed By: #### C BC #### [facility] [address] [place], [place] [id number] Jatin Tracey Erythrocyte distribution width (RBC) [Ratio] 11.8 % Normal 11.0-15.0 [facility] Comment on above: Performed By: #### C BC #### [facility] [address] [place], [place] [address] Jatin Tracey Hematocrit (Bld) [Volume fraction] 42.6 % Normal 36.0-48.0 [facility] Comment on above: Performed By: #### C BC #### [facility] [address] [place], [place] [id number] Jatin Tracey Hemoglobin (Bld) [Mass/Vol] 14.3 g/dL Normal 12.0-16.0 [facility] Comment on above: Performed By: #### C BC #### [facility] [address] [place] [address] Jatinandrez Webb IG # 0.03 10e3/ul Normal 0.00-0.03 [facility] Comment on above: Performed By: #### C BC #### [facility] [address] [place] [address] Jatin Tracey IG % 0.3 % Normal 0.0-0.5 [facility] Comment on above: Performed By: #### C BC #### [facility] [address] [place] [address] Jatin Tracey LYMPH # 2.2 103/ul Normal 1.2-3.8 [facility] Comment on above: Performed By: #### C BC #### [facility] [address] [place] [address] Jatinandrez Vergaraen Lymphocytes/100 WBC (Bld) 20.7 % Normal 20.5-60.0 [facility] Comment on above: Performed By: #### C BC #### [facility] [address] [place] [address] Jatin Tracey MANUAL DIFF REQ NO Normal [facility] Comment on above: Performed By: #### C BC #### [facility] [address] [place] [address] Jatin Tracey MCH (RBC) [Entitic mass] 30.4 pg Normal 26.7-34.0 [facility] Comment on above: Performed By: #### C BC #### [facility] [address] [place] [address] Jatin Tracey MCHC (RBC) [Mass/Vol] 33.6 g/dL Normal 29.9-35.2 [facility] Comment on above: Performed By: #### C BC #### [facility] [address] [place] [address] Jatin Tracey MCV (RBC) [Entitic vol] 90.4 fL Normal 81.0-99.0 [facility] Comment on above: Performed By: #### C BC #### [facility] [address] [id number] Jatin Tracey MONO # 0.6 103/ul Normal 0.3-0.8 [facility] Comment on above: Performed By: #### C BC #### [facility] [address] [id number] Jatin Tracey Monocytes/100 WBC (Bld) 6.0 % Normal 1.7-12.0 [facility] Comment on above: Performed By: #### C BC #### [facility] [address] [address] Jatin Tracey NEUT # 7.3 103/ul Critically high 1.4-6.5 [facility] Comment on above: Performed By: #### C BC #### [facility] [address] [place] [address] Jatin Tracey Neutrophils/100 WBC (Bld) 68.9 % Normal 43.0-75.[address] [facility] Comment on above: Performed By: #### C BC #### [facility] [address] [place], [place] [address] Jatinandrez Vergaraen Platelet mean volume (Bld) [Entitic vol] 9.7 fL Normal 9.5-13.5 [facility] Comment on above: Performed By: #### C BC #### [facility] [address] [place], [place] [address] Jatin Tracey PLT 252 103/ul Normal 150-[address] [facility] Comment on above: Performed By: #### C BC #### [facility] [address] [place], [place] [address] Jatin Tracey RBC 4.71 106/ul Normal 4.20-5.[address] [facility] Comment on above: Performed By: #### C BC #### [facility] [address] [place], [place] [address] Jatin Tracey WBC 10.6 103/ul Normal 4.0-11.[address] [facility] Comment on above: Performed By: #### C BC #### [facility] [address] [id number] ABD/PELV W CONon 12-13-19 [...] by: Sabiha RUSHING Date: 2020-12-12 04:08 Normal [facility] PREG HCG QUALon 12-12-2020 , QUAL Negative Normal NEGATIVE [facility] Comment on above: Performed By: #### P REG #### [facility] [address] [id number] Jatin Webb PROF 14(COMP METB)on 021 Albumin [Mass/Vol] 3.9 g/dL Normal 3.5-5.0 [facility] Comment on above: Performed By: #### C MP #### [facility] [address] [place], [place] [address] Jatin Webb Albumin/Globulin [Mass ratio] 1.1 {ratio} Normal [facility] Comment on above: Performed By: #### C MP #### [facility] [address] [id number] Jatin Webb ALP [Catalytic activity/Vol] 93 U/L Normal 38-126 [facility] Comment on above: Performed By: #### C MP #### [facility] [address] [place], [place] [address] Jatin Tracey ALT [Catalytic activity/Vol] 16 U/L Normal 9-52 [facility] Comment on above: Performed By: #### C MP #### [facility] [address] [place], [place] [address] Jatin Tracey Anion gap [Moles/Vol] 17.1 mmol/L Normal [facility] Comment on above: Performed By: #### C MP #### [facility] [address] [place], [place] [address] Jatin Tracey AST [Catalytic activity/Vol] 3 U/L Critically low 14-36 [facility] Comment on above: Performed By: #### C MP #### [facility] [address] [id number] Jatin Tracey Bilirubin [Mass/Vol] 0.3 mg/dL Normal 0.2-1.3 [facility] Comment on above: Performed By: #### C MP #### [facility] [address] [place], [place] [address] Jatin Tracey Calcium [Mass/Vol] 8.9 mg/dL Normal 8.4-10.2 [facility] Comment on above: Performed By: #### C MP #### [facility] [address] [place], [place] [id number] Jatin Tracey Chloride [Moles/Vol] 106 mmol/L Normal 98-[address] [facility] Comment on above: Performed By: #### C MP #### [facility] [address] [place], [place] [address] Jatin Tracey CO2 [Moles/Vol] 23.0 mmol/L Normal 22.0-30.0 [facility] Comment on above: Performed By: #### C MP #### [facility] [address] [place], [place] [address] Jatin Tracey Creatinine [Mass/Vol] 0.76 mg/dL Normal 0.52-1.04 [facility] Comment on above: Performed By: #### C MP #### [facility] [address] [place], [place] [address] Jatin Tracey EGFR-AF SLOVAK >60 Normal >=60 [facility] Comment on above: Performed By: #### C MP #### [facility] [address] [place], [place] [address] Jatin Tracey EGFR-NON AF SLOVAK >60 Normal >=60 [facility] Comment on above: Performed By: #### C MP #### [facility] [address] [id number] Jatin Tracey Globulin (S) [Mass/Vol] 3.7 g/dL Normal T [facility] Comment on above: Performed By: #### C MP #### [facility] [address] [place], [place] [id number] Jatin Tracey Glucose [Mass/Vol] 96 mg/dL Normal 74-106 [facility] Comment on above: Performed By: #### C MP #### [facility] [address] [place], [place] [id number] Jatin Tracey Potassium [Moles/Vol] 4.1 mmol/L Normal 3.4-5.0 [facility] Comment on above: Performed By: #### C MP #### [facility] [address] [place], [place] [id number] Jatin Tracey Protein [Mass/Vol] 7.6 g/dL Normal 6.1-8.2 [facility] Comment on above: Performed By: #### C MP #### [facility] [address] [place], [place] [id number] Jatin Tracey Sodium [Moles/Vol] 142 mmol/L Normal 137-145 [facility] Comment on above: Performed By: #### C MP #### [facility] [address] [place], [place] [address] Jatin Tracey Urea nitrogen [Mass/Vol] 14.0 mg/dL Normal 6.4-19.3 [facility] Comment on above: Performed By: #### C MP #### [facility] [address] [place], [place] [address] Jaitn Tracey Urea nitrogen/Creatinine [Mass ratio] 18.4 mg/mg Normal [facility] Comment on above: Performed By: #### C MP #### [facility] [address] [id number] Jatin Webb PROTIMEon 12-12-2020 INR Coag (PPP) [Relative time] 1.00 {INR} Normal [facility] Comment on above: Performed By: #### P TT, PT #### [facility] [address] [id number] Jatin Webb INR GUIDELINES SEE BELOW Normal The [facility] Comment on above: Result Comment: MAHESH RED INR: 2.0 - 3.0 CONDITIONS NOT LISTED BELOW 2.5 - 3.5 FOR PROSTHETIC HEART VALVE REPLACEMENT 2.5 - 3.5 RECURRENT THROMBOSIS Performed By: #### P TT, PT #### [facility] [address] [place] [address] Jatin Webb PT Coag (PPP) [Time] 10.8 s Normal 9.0-11.6 [facility] Comment on above: Performed By: #### P TT, PT #### [facility] [address] [place], [place] [address] Jatin Webb PTTon 12-12-2020 aPTT Coag (Bld) [Time] 26.2 s Normal 22.3-36.[address] [facility] Comment on above: Performed By: #### P TT, PT #### [facility] [address] [place], [place] [id number] Jatin Webb XR CHEST 1 Von 12-12-2020 XR CHEST 1 V EXAM: XR CHEST 1 V HISTORY: Chest pain left-sided rib pain COMPARISON: None. TECHNIQUE: Single frontal view chest x-ray FINDINGS: No lobar consolidation, large effusions, pneumothorax, or discrete acute bony abnormality. Cardiac size unremarkable. IMPRESSION: No radiographic evidence for acute chest abnormality. Electronically authenticated by: ODALIS BRICENO Date: 2020-12-12 03:[address] [facility] Encounters Encounter Date Encounter Type Care [...] spital Start: 12-11-2022 ambulatory Leah Geno Doe Facility:[facility] Start: 11-29-2022 End: 11-29-2022 ambulatory Leah Azar [facility] Start: 11-17-2022 End: 11-17-2022 ambulatory WALDO CAMP [facility] Start: 10-18-2022 End: 10-18-2022 ambulatory Leah Azar [facility] Start: 12-12-2020 End: 12-12-[address] BRANDON LE Facility:[facility] Payers Date Payer Category Payer Unknown [id number] 2022 Unknown [id number] 2022 Unknown 2001 Unknown [id number] 2.16.84 [id number] 2001 Unknown [id number] 2.16.8 [id number] 2001 Unknown [id number] 2.16.8 [id number] 2001 Unknown [id number] 2.16.8 [id number] 2001 Unknown [id number] 2.16.8 [id number] 2001 Unknown [id number] 2.16.8 [id number] 2001 Unknown [id number] 2.16.84 [id number] 2001 Unknown [id number] 2.16.84 [id number] 2001 Unknown [id number] 2.16.84 [id number] 2001 Unknown [id number] 2.16.840 .[id number] 1959 Unknown [id number] 1959 Unknown [id number] Clinical Note 01-10-2023 Note Date & Type [...] these instructions at home: Medicines ? Take eslj-fla-ciyxdma and prescription medicines only as told by [...] and water are not available, use hand keg header. Contact a health care provider if: ? [...] can cause a sore throat. ? Take wdvv-aje-bhwkvmx medicines only as told by your health [...] provider. Document Revised: 07/08/2021 Document Reviewed: 07/08/2021 [employer] Patient Education ? 2022 [employer] Viral Illness, Adult Viruses are tiny [...] person who is (more content not included)... [facility] Summary Purpose Family History No Family History Records FoundNo Family History Records FoundNo Family History Records FoundNo Family History Records Found Advance Directives No Advanced Directives Records FoundNo Advanced Directives Records FoundNo Advanced Directives Records FoundNo Advanced Directives Records Found Additional Source Comments INFORMATION SOURCE (unrecogn ized section and content) DATE CREATED AUTHOR 12/15/2020 [facility] DATE CREATED AUTHOR AUTHOR'S ORGANIZ ATION 06/23/2022 [facility] Specialist DATE CREATED AUTHOR AUTHOR'S ORGANIZ ATION 10/13/2023 [facility] DATE CREATED AUTHOR AUTHOR'S ORGANIZ ATION 12/03/2023 [facility] Specialists [facility] FOR RECORDS PERTAINING TO PATIENTS WHO ARE [...] BE BASED ON THE PRIMARY CLINICAL RECORDS. [facility]. provides no warranty or guarantee of the accuracy or completeness of information in this document.
== END 2023-12-15 18:57 | disposition home or self-care (01) ==
LOC: US 18:57
PROVIDERS: PCP Family Medicine; Visit Provider Physician Assistant
DX: Z36.89 Encounter for other specified antenatal screening (principal); Z3A.20 20 weeks gestation of pregnancy
CPT/HCPCS: 76805; 76817

== ENCOUNTER 2024-02-06 07:34 | Outpatient (RCR) | payer OTHER, SELFPAY ==
[2024-02-06 09:36] LABS: Glucose 1 Hour 136 mg/dL (<130)
[2024-02-06 10:22] LABS: Basophils Percent Auto 0.3 % (0.2-2.0); Eosinophils Absolute Auto 0.1 10^3/uL (0.0-0.7); Eosinophils Percent Auto 0.8 % (0.9-7.0); Hematocrit 34.6 % (36.0-48.0); Hemoglobin 11.3 g/dL (12.0-16.0); Immature Granulocytes Abs Auto 0.04 10^3/uL (0.00-0.03); Immature Granulocytes Pct Auto 0.3 % (0.0-0.5); Lymphocytes Absolute Auto 1.8 10^3/uL (1.2-3.8); Lymphocytes Percent Auto 15.3 % (20.5-60.0); Mean Corpuscular HGB Conc 32.7 g/dL (29.9-35.2); Mean Corpuscular Hemoglobin 29.4 pg (26.7-34.0); Mean Corpuscular Volume 89.9 fL (81.0-99.0); Mean Platelet Volume 9.8 fL (9.5-13.5); Monocytes Absolute Auto 0.5 10^3/uL (0.3-0.8); Monocytes Percent Auto 4.4 % (1.7-12.0); Neutrophils Absolute Auto 9.4 10^3/uL (1.4-6.5); Neutrophils Percent Auto 78.9 % (43.0-75.0); Platelet Count 312 10^3/uL (150-450); Red Blood Count 3.85 10^6/uL (4.20-5.40); Red Cell Distribution Width 12.3 % (11.0-15.0); White Blood Count 11.9 10^3/uL (4.0-11.0)
[2024-02-06] MEDS: RHO(D) IMMUNE GLOBULIN 1,500 UNIT SYRINGE 1500 UNIT IM (10:32)
[2024-02-06 10:40] VITALS: BP 113/76; PULSE 87; TEMP 36.6; O2SAT 99
--- NOTE | 2024-02-06 10:42 | PC.NURSE ---
0930 arrival ambulatory after having labs drawn. vitalsigns obtained. Patient went to eat breakfast. 1020 lab results obtained. patient notified. 1025 Patient arrival to department. Rhogam IM left dorsal gluteal, tolerated well 1045 No s/s of reaction, released ambulatory.
== END 2024-02-23 11:47 | disposition home or self-care (01) ==
LOC: LAB 07:34
PROVIDERS: PCP Family Medicine; Visit Provider Obstetrics & Gynecology
DX: O26.893 Other specified pregnancy related conditions, third trimester (principal); Z67.91 Unspecified blood type, Rh negative; Z3A.00 Weeks of gestation of pregnancy not specified
CPT/HCPCS: 36415; 82950; 85025; 86850; 86900; 86901; 96372; J2791

== ENCOUNTER 2024-02-23 19:02 | Outpatient (OUT) | payer BC, OTHER, SELFPAY ==
--- OUTSIDE RECORDS SUMMARY | 2024-02-23 19:05 | XMS_ITS | CCD ---
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 [place] [address] Provider Orderson 10-06-2023 Provider Orders [id number] Normal [facility] Coding Summaryon 07-04-2023 Coding Summary HTMLBase 64 WtnfwckmKKa6rTi+PGh lYWQ+OF0RWDDzX82syA PqkH2sB6KHMPiIVjtdK WJBMKhIRvQlnmSqJW3b aXNjZXJu IC8+WV5tSDFyDvtlwPY sy2F8fYE3S60axo2cGE dgeXD2OEWlMaSaydsef 0vzpUd2FOizDbleCdPd SZJlzV67GOX2cK90Hy3 7wNHhxKVtn9frcZm8Uv SkYFFbFCS7uSyoNLtjf 4AoHXZnZ41ioPJdp5I8 IGNvbGxhcHNlOyBlbXB 8gB7mKQnqsipbl9ztnu agPlv1sj66tWNdv3S6a MV7H8FeqfM2CNPdeCCo YclpnBRLkM4ltqkek5i ktwtoSuOgWZXhQRe0WU x8HGHyyHpsZzSkWP28D PD0RPUqkeMjF1SdZYKc hUdqHuG7n5P1Dn2IV3X NWpcmL1NBQPSWLNjvyI Q+GL78rw18X9PaLcrgF pi1ZJVwCMJ7hFF5oD6i ZSGcMEelx7T3bCR2W1Z rmtSzgq9yc1jgQDZnDM afC74fxSOmt9X4QOLne SI3OKWvvRwrGqBwgZ60 Oyc+PMLdtCfxl9FxHpm uk8otw2uioVg1CgbaWO XhlwUrgCeeQOK6t0QyI t4jJPMneOO2tDP0kV9c VuVxVuM5HBihR307OjT pxJQkQqhhH04iA6VifP A+ZQAbQuk5TGRioJukQ B3oJ9SnVLKzwtokyDRk tKubTM8mRAIhnzgqNSQ jvF2tBNOfQ8r2ViZvPw E8GMweE6ZeVUVoltarX q22uT2fPsWoEfI0ULqs O9NytlO0SVRdzBOfYLu tLCH4U68gb2Z0GIXuDZ TmHSY7uMC8dG1kcSbpb jogbGVmdDsgdmVydGlj YIyvBUrvQ707AWPhfMi nPkNvZGluZyBEYXRlOi AgMDMvMTEvMjAyNDwvd GQ+CACbONY7aShtQDOf wIArYNuaDo2twEpxzVs aON7xTZLrzrgeMPYkqE 7pFRPcnAFwaExsPV4nT XTvudblw383LiRdFOU6 MVPgxLJrP5GkrZ7zUaH bJNMtYKCxY9ZnrIQeJO rvJ854OKrbOaT4KAHqo uMrS3HhCOWxiPunWsS9 o5U8Tf3Cc8HheedvD5Z blDSxPeBqJqyfIMe1S6 RkPjwvdHI+EP23JGQwC K59BGn3UQK9wXrkBIox QZJpO9VtxR1pBuVlQWM kZGRkOyc+PHRhYmxlIH dpZHRoPScxMDAlJyBzd XqbGZ2uRs2xUERtJUHf nCfucCFwVdMki4raECM gSGchTG7rkZvxP0XxcS H4TMIot2g4Qj23D83hL 3JvdXA+QVJbkYZ9zIQ2 fC6tZxYlGeT1ESqnJ85 5LfWbkIUbPcnzz1yjq3 fjgQo7LxW7YKLpeaQtn QgqHXG5t1OyPh06S37b IHdpZHRoPSIxNSUiIHZ baZufrm2meJ9iNy0+PG KkkVA8yBG5cX4tPvOlA kL8FXucD986TsQeiCWd Ddspq6sil3zatMd8DgC jMVRhraYoiOzlDPL6g0 IxTf27L7MbhEmij0DeI ht6sl85qUJoj6S1kMR8 Z6PgAAGjhvcsdANjkEz sPL1lRYGqdykfPMVgiH 9bVDCeU5e1FhWqMqS7E OidA7QyuoD7OEKwhKPs JRVzuUJFeA9jwqcrb6i pvguhHtKvVYSpYSg6XD b8KOKjgJryJeFhSDP6I iH0NLZ1qKUwtN4zwBab jmjreK9nWwb+STU3bLV qeOODCG6rOoubgGR+PH VhUET7eIonQQbbSNBci L5xBZUmS8h6BeHkNiT7 AVztK0PgjxK2DVMpbTT yOZXnwXBMiW3zpihxp8 vbetvsLsToHTSrELb0R Ij8GYGkgVtzVdOlLDM0 UuR9ROK3kTStsM3omTu ipkeozM0sExg+QmlydG fzKUC7OGa8D9DkHnm7L ITlvZdxYZ5nhPFsDZce Jh4uxPzuvHcgHU7bYRI grgneg824LxGpn4clAP BhaWAfFSmbXEE6T74xd 1G4LNGbOWXsBXX7dCH2 bP3wkMtrsceinJSkqYl gdmVydGljYWwtYWxpZ2 06RPBbdBtyUzIsSDm4N 6QiRnl0XEAkeTbzEW3f nKUwSRgpOd5wtSzhhVf tYQ8pMFQnultko773Bb Lgh4tqLQDgrSJzTShgZ ZY6A75bo8W6ACGkZRWi IFL4nAC1tS9dyIobyug gbGVmdDsgdmVydGljYW osVTwlW058YGOdoJrvS fKagNm5V9JrYzm1SHWk oSunUD9efGZbHFkiXf2 aqPjodEimYX5dEEWhlt mvc172LrZly4cxKCBhw RScIAyrVNI4O92gl7B0 YTOtGTXwMDA4iBS4jH4 hbGlnbjogbGVmdDsgdm UnbIgbGXpeBBgcD721I HRvcDsnPlBhdGllbnQg IUzwQTz7T1BcYmjsdEW +YI26DAYqFF59uOGcvL Lyg7ptyFk2WhCxRXNfR ON1dYooOHdwu9QvEXWy A36gkEYts2T6GJYmmAw bpQXgZoBffBN8qS8gKK holpxfs1xdltgmUegzw 7gbgc42eO64Z98pLGzx ZHRoPSIzMCUiIHZhbGl qbn7vjL3zMe9+PGNvbC Q2aWT8yR1sKNHdYfV3Q UppZ857LvSsuMQgEjeg k4dvr2nvjUs0BhD2PZA rhbDadOsxSRG3l9AwYs 99C64hAAtuQGZfOEVpW KJgKBNbvTsfqm7naV0l Ii8+KYJryPP0vDZ2nE2 eVhFyWmW5EUabZ117Qk CdlMJaPjixJ36gT8Owj XA+RQBgFzt5VHHskSvk VI7quFFwZFluAh8cZKA 1FqFbEvOuQAbmI1UpJU DuhzgsrcnotTG5UKPpK WYrmZ47Vy0vmVwjYDEm hCLCbS3ovhvtd1wnkkm gJtOjFYIaJRi6RBx3YE IibWayGfCoVBI3LqU0M WG9bQWuiJ3ogAnhnrxs oC5tH9BjCLNwjikdNk3 2lR0iLbXiYjE7ISgqTm c+QkFLRVIsIEFMRVhBT kRSQSBNSUNIRUxMRTwv dGQ+EVLvRUZ7zQezOOa jFQFlzD2fFUPaS9h5Rc ZuOaC6MIunS3QkOCFtv xpmHs67hS3hIgQzTaP0 MQatM9HbtgZ1FGHlzNY fVGjsHOU8D27fm4S9IF SjPMSrTNP6nAI4yM3tl GlnbjogbGVmdDsgdmVy vQlhVWkwTCjkX016XBI rzRsqGuMcWrZ1ShGoQG Z4Q8GzZps2OGWpsGabS Q7yuRExZXciOt7bbMfo oShtAX7bBEKarkhaQWL hcN5zGCPmnLMarMzzZN 0eIVGbezwrg929WmPsE OB5WFVeqSCrK2FemB0j WbJoGJLwYMYvR4XmkOD sTLvqC731TXskAqS1QX XcdlUfD4QpUHSbxMkjV wA5f1E4Dq1uSqHJLQCv czwvdGQ+LZPtBFI6hIf rGHnoDULbmD9sOYMkN2 y3UdOjVpP1NUwvE6QnW ZUqjgpdCv34mO9iDlCy NmO2JButP4BshoP0PJV oxUYcIKgqTLN4R53ty6 J5APVvEWAyLVA5fAY1w A5uzBzxwedjfQJwtByk lmYjaMogISrlCQnsT83 6IHRvcDsnPkZFTUFMRT wvdGQ+RVDqOXA8vCxaU NznOMKdwN9gPBUjP3j1 KgQfXmQ6VAutZ8VgLCA alytxJb06yJ3rObBlIm N2BXwsU2NdygC3SYQpq TYmVScaQJR8H46bi5A0 RSFsKEDjAEU4sMP2iT7 hbGlnbjogbGVmdDsgdm MglSijJOsmCDqpA710C KXseRhjGnTfO6Smiehq IwHSsKQmUEIaTF19KR1 6ZH29P3MwNupruSKylO U+PHRhYmxlIHdpZHRoP BbwVFCpIjBpnLzdMM2n Os9hIFPdTMMhrEzcmJV nSdGns9cyPDAsXMzpRL 5kbFrvC0ZtaHF5FLHvx 6z3Lf55U90aK1QjsDT+ NBSfjXI9zUZ5qS9kTkA qHlR9ZAuhI441OuNbuS LrRgczz8fqy5gfeZq0X jMwJSIgdmFsaWduPSJ0 c2YyFm36F82gVEjvHEY oPSIyMCUiIHZhbGlnbj 5smP0gAq0+VOPcmPO6h RL2sN5kDaCkAqG2QWvy I604NiIrsTYiNbciS31 hJ4RomHN+BJAcRqs0MU ImsNciOR4zoBNgYLeaT b2kHRQ7ViAfLgYiMDzm K1BmYZMefjwyafovsKW 5YMYvWQYteR83Fk2hqF agAo0pBYZjSHY2WSMei OXkX2RahZ0gHtLlTBWr BLEhI0QlpFOzGUfpK30 3WSwsBwS7XWIdemFzP4 BtUVJubJrcWdZ4a7V2N w1JgAqqaQIwBM6aOiEz ZNp6W1SpEtt2MABqeWj vEA2crDTnUOzpCn4waA wsxMtaEK4rWWBnpjnlu 112BkXch9jgDDAwjANc LDycNAC6R87bt7K5DKQ kQWVtSWH9iSQ9yA1atT lnbjogbGVmdDsgdmVyd PmhCBuaIXjaC687MPLr uTasOwQYLgm8S7EoWih 0NRQvhMfaJY7xzCUfOT pyMw5miVasgQrgMK6bE OHbfthhn583MuCxa1rg ILGhdPCcZUesJEV2J23 kz6Z1YENrPDFgUNI2sH P5uU5xxGmgtvbhiYBys DsgdmVydGljYWwtYWxp D867GRGzfZekKw1JPgx 8B2UeRba0AUZsdIulLB 1ckFWxAFjrRw8iySoow KmaOI9wFXRxjdhkm097 SrGup2isTAOfuABqBOe pKEA0V98bt5X4JMWdGY FeWZT9oCM7uB1xvCbxv jogbGVmdDsgdmVydGlj BMeoSZidI431FNPiiQi nPlBheWVyOjwvdGQ+PC 58xw27B9HrSrfvMad6A MUfHLX0hCP9eU5uRIUk JSc (more content not included)... [facility] .Auto Diff 04-22-2023 Auto [place] % 6 % Normal 1-12 [facility] Comment on above: Performed By: #### 3 [id number] #### [facility] (DEFAULT) [address] [place] [address] 43786 Baso Abs# 0.1 x10 Normal 0.0-0.2 [facility] Comment on above: Performed By: #### 3 [id number] #### [facility] (DEFAULT) [address] [place] [address] 79261 Basophils/100 WBC (Bld) 0.8 % Normal 0.2-2.0 [facility] Comment on above: Performed By: #### 3 [id number] #### [facility] (DEFAULT) [address] [place] [address] 04437 Eos Abs# 0.1 x10 Normal 0.0-0.4 [facility] Comment on above: Performed By: #### 3 [id number] #### [facility] (DEFAULT) [address] [place] [address] 03977 Eosinophils/100 WBC (Bld) 1.8 % Normal 0.9-4.0 [facility] Comment on above: Performed By: #### 3 [id number] #### [facility] (DEFAULT) [address] [place] [address] 58074 Lymph Abs# 2.1 x10 Normal 1.3-2.9 [facility] Comment on above: Performed By: #### 3 [id number] #### [facility] (DEFAULT) [address] [place] [address] 99402 Lymphocytes/100 WBC (Bld) 26 % Normal 14-48 [facility] Comment on above: Performed By: #### 3 [id number] #### [facility] (DEFAULT) [address] [place] [address] 06987 [place] Abs# 0.5 x10 Normal 0.0-0.8 [facility] Comment on above: Performed By: #### 3 [id number] #### [facility] (DEFAULT) [address] [place] [address] 59556 Neut Abs# 5.2 x10 Normal 1.5-9.2 [facility] Comment on above: Performed By: #### 3 [id number] #### [facility] (DEFAULT) [address] [place] [address] 40554 Neutrophils/100 WBC (Bld) 65 % Normal 44-88 [facility] Comment on above: Performed By: #### 3 [id number] #### [facility] (DEFAULT) [address] [place] [address] 88022 CBC w/ Auto Diffon 3 Man Diff? Auto Invalid Interpretation Code [facility] Comment on above: Performed By: #### 3 [id number] #### [facility] (DEFAULT) [address] [place] [address] 98083 Erythrocyte distribution width (RBC) [Ratio] 13.1 % Normal 11.5-15.0 [facility] Comment on above: Performed By: #### 3 [id number] #### [facility] (DEFAULT) [address] [place] [address] 51876 Hematocrit (Bld) [Volume fraction] 40.7 % High 33.7-40.4 [facility] Comment on above: Performed By: #### 3 [id number] #### [facility] (DEFAULT) [address] [place] [address] 55251 Hemoglobin (Bld) [Mass/Vol] 14.0 g/dL Normal 11.3-15.9 [facility] Comment on above: Performed By: #### 3 [id number] #### [facility] (DEFAULT) [address] [place] [address] 75850 MCH (RBC) [Entitic mass] 29 pg Normal 24-34 [facility] Comment on above: Performed By: #### 3 [id number] #### [facility] (DEFAULT) [address] [place] [address] 52076 MCHC (RBC) [Mass/Vol] 34 g/dL Normal 26-37 [facility] Comment on above: Performed By: #### 3 [id number] #### [facility] (DEFAULT) [address] [place] [address] 16027 MCV (RBC) [Entitic vol] 85 fL Normal 81-100 [facility] Comment on above: Performed By: #### 3 [id number] #### [facility] (DEFAULT) [address] [place] [address] 81201 Platelet 275 x10 Normal 138-427 [facility] Comment on above: Performed By: #### 3 [id number] #### [facility] (DEFAULT) [address] [place] [address] 65146 Platelet mean volume (Bld) [Entitic vol] 7.7 fL Normal 6.3-10.2 [facility] Comment on above: Performed By: #### 3 [id number] #### [facility] (DEFAULT) [address] [place] [address] 29822 RBC 4.79 x10 Normal 3.70-5.30 [facility] Comment on above: Performed By: #### 3 [id number] #### [facility] (DEFAULT) [address] [place] [address] 60095 WBC 7.9 x10 Normal 3.5-10.5 [facility] Comment on above: Performed By: #### 3 [id number] #### [facility] (DEFAULT) [address] [place] [address] 25136 CMP Standardon 04-22-2023 eGFR Non AA >60 Invalid Interpretation Code [facility] Comment on above: Performed By: #### 3 [id number] #### [facility] (DEFAULT) [address] [place] [address] 09346 eGFR AA >60 Invalid Interpretation Code [facility] Comment on above: Performed By: #### 3 [id number] #### [facility] (DEFAULT) [address] [place] [address] 33894 Albumin [Mass/Vol] 4.0 g/dL Normal 3.5-5.0 [facility] Comment on above: Performed By: #### 3 [id number] #### [facility] (DEFAULT) [address] [place] [address] 86722 Albumin/Globulin [Mass ratio] 1.2 {ratio} Low 1.4-2.6 [facility] Comment on above: Performed By: #### 3 [id number] #### [facility] (DEFAULT) [address] [place] [address] 28639 Alk Phos 68 IU/L Normal 32-91 [facility] Comment on above: Performed By: #### 3 [id number] #### [facility] (DEFAULT) [address] [place] [address] 46729 ALT [Catalytic activity/Vol] 14.0 U/L Normal 14.0-54.0 [facility] Comment on above: Performed By: #### 3 [id number] #### [facility] (DEFAULT) [address] [place] [address] 80837 Anion gap [Moles/Vol] 10.9 mmol/L Normal 5.0-19.0 [facility] Comment on above: Performed By: #### 3 [id number] #### [facility] (DEFAULT) [address] [place] [address] 76832 AST [Catalytic activity/Vol] 18 U/L Normal 15-41 [facility] Comment on above: Performed By: #### 3 [id number] #### [facility] (DEFAULT) [address] [place] [address] 64185 Bili Total 0.6 mg/dL Normal 0.3-1.2 [facility] Comment on above: Performed By: #### 3 [id number] #### [facility] (DEFAULT) [address] [place] [address] 57411 Calcium [Mass/Vol] 8.8 mg/dL Low 8.9-10.3 [facility] Comment on above: Performed By: #### 3 [id number] #### [facility] (DEFAULT) [address] [place] [address] 03414 Chloride [Moles/Vol] 107 mmol/L Normal 101-111 [facility] Comment on above: Performed By: #### 3 [id number] #### [facility] (DEFAULT) [address] [place] [address] 38653 CO2 [Moles/Vol] 23 mmol/L Normal 21-32 [facility] Comment on above: Performed By: #### 3 [id number] #### [facility] (DEFAULT) [address] [place] [address] 81565 Creatinine [Mass/Vol] 0.68 mg/dL Normal 0.60-1.30 [facility] Comment on above: Performed By: #### 3 [id number] #### [facility] (DEFAULT) [address] [place] [address] 92226 Globulin (S) [Mass/Vol] 3.3 g/dL Normal 1.5-4.3 [facility] Comment on above: Performed By: #### 3 [id number] #### [facility] (DEFAULT) [address] [place] [address] 16704 Glucose [Mass/Vol] 103.0 mg/dL Normal 74.0-118.0 [facility] Comment on above: Performed By: #### 3 [id number] #### [facility] (DEFAULT) [address] [place] [address] 81607 Osmolality 274 mOsm/L Invalid Interpretation Code [facility] Comment on above: Performed By: #### 3 [id number] #### [facility] (DEFAULT) [address] [place] [address] 07652 Potassium [Moles/Vol] 3.9 mmol/L Normal 3.6-5.1 [facility] Comment on above: Performed By: #### 3 [id number] #### [facility] (DEFAULT) [address] [place] [address] 30771 Protein [Mass/Vol] 7.3 g/dL Normal 6.5-8.1 [facility] Comment on above: Performed By: #### 3 [id number] #### [facility] (DEFAULT) [address] [place] [address] 95739 Sodium [Moles/Vol] 137.0 mmol/L Normal 136.0-144.0 [facility] Comment on above: Performed By: #### 3 [id number] #### [facility] (DEFAULT) [address] [place] [address] 13879 Urea nitrogen [Mass/Vol] 12 mg/dL Normal 8-26 [facility] Comment on above: Performed By: #### 3 [id number] #### [facility] (DEFAULT) [address] [place] [address] 44263 Urea nitrogen/Creatinine [Mass ratio] 17.6 mg/mg High 4.6-16.2 [facility] Comment on above: Performed By: #### 3 [id number] #### [facility] (DEFAULT) [address] [place] [address] 75777 Lipid Panel Standardon 04-22 Cholesterol [Mass/Vol] 158.0 mg/dL Normal 66.0-200.0 [facility] Comment on above: Performed By: #### 3 [id number] #### [facility] (DEFAULT) [address] [place] [address] 28685 Cholesterol in HDL [Mass/Vol] 51 mg/dL Normal 40-71 [facility] Comment on above: Performed By: #### 3 [id number] #### [facility] (DEFAULT) [address] [place] [address] 37415 Cholesterol in LDL [Mass/Vol] 98 mg/dL Normal 1-100 [facility] Comment on above: Performed By: #### 3 [id number] #### [facility] (DEFAULT) [address] [place] [address] 38190 Cholesterol.total/Cholest amanda in HDL [Mass ratio] 3.0 {ratio} Normal 0.0-4.5 [facility] Comment on above: Performed By: #### 3 [id number] #### [facility] (DEFAULT) [address] [place] [address] 24323 Triglyceride [Mass/Vol] 43.0 mg/dL Normal 0.0-150.0 [facility] Comment on above: Performed By: #### 3 [id number] #### [facility] (DEFAULT) [address] [place] [address] 05235 VLDL. 9 mg/dL Normal 5-40 [facility] Comment on above: Performed By: #### 3 [id number] #### [facility] (DEFAULT) [address] [place] [address] 25472 Progesterone LCon 02-11-2023 Progesterone LC 0.7 ng/mL Invalid Interpretation Code [facility] Comment on above: Result Comment: Foll icular phase 0.1 - 0.9 Luteal phase 1.8 - 23.9 Ovulation phase 0.1 - 12.0 First trimester 11.0 - 44.3 Second trimester 25.4 - 83.3 Third trimester 58.7 - 214.0 Postmenopausal 0.0 - 0.1 Performed At: [facility] [id number] Bibi Irwin PhD Ph:[phone] Performed By: #### 3 [id number] #### [facility] ([facility]) [address] [place], [place] [id number] Coding Summaryon 01-17-2023 Coding Summary HTMLBase 64 UxxndukiHYq2eMi+PGh lYWQ+RT9EVMTwV75xsS QsiW9nD5EGCGaZPrcyT ISFDVwEItUndoQwOY1d aXNjZXJu IC8+QF5wUOOtPrawmVG mt4U6bTM8E90xht4yVH eleZV2TNNtMoHfnclrk 6ftzQy7CBcwTbncNxUh QOHioX83SMX3xN47Ij1 6aQOibDDfj3sldAh1Bw LrBMAyYLN6tVmoOVqpo 7RlTDJcG02enDXad7H8 IGNvbGxhcHNlOyBlbXB 3rI6nSTwrkpqdj1ppcm jdMgf5jy97pTGqs0N6p VE8A8ErjzC2ZBErvBDj PlpcpUBQiP3kpzasl5r eunhvHsLbHWRuUWg9IY k3WVBdmAtrVtJoJZ74O XC0WZPwueYjX8GaIPRk yEouVlR6a3O3Lg3FZ4G WXtprX3NCTSLXNMjjgX Q+KA42dc46C7KwOgybQ uk3SOCoTGR0vWO1bH0h ZERxXZkhf5M6fZY8E9P xasBran3mm3vzHQNhJN faE21ayIWrk6X4WVTqv UQ0OVGkdRqtZjGsyY61 Oyc+VSKmeZwvh7OxLad ou8ypi6xppVi2VduqUE YysyVsuUoxRMJ4c1DrW y6hVPUpnNS3qLL1cA5d JxFmVeC6IBuwD490TbD jgEPmRljfV90hG6MbcA A+VQThOpn4PFLtrGcqP H2mV7SwBLIvyecsaQOw mZzmLQ3bVWZxnaomIIE grK2uKDAaS0q4HjWpIt A0PRthS6FmHEMpjtrkA s05gM7uZbZeEpQ7QIng Z0NxzsI8OWJldELeWNd aQYB5Y49kz8I6GDOrUC KhXJO6mHK3bY0soTnjl jogbGVmdDsgdmVydGlj HDirYHkoN281XGZlgMb nPkNvZGluZyBEYXRlOi AgMDkvMjUvMjAyMzwvd GQ+PGEhRAA0aAspYLJu sIXmUYlpQv4doKbesMe sKR7dRDLmobmqFABihD 1qZOQqtOUvmLtkLS2iV CSwljhgn068XtWzTXH1 FRYhoQUuS2VcuA3rAfE fWSPyLMHtE7RviCUpOK cgQ105CXdkXhJ7GLRzw kKyX9QlKNBnvRiiSvX4 x6X9Dc8Sg9NkdubsJ0I wwEOqMzGfYovgTIa3H7 RkPjwvdHI+TB42FQPhJ G99OGh8GGS6fFkaOChh YINgR7HyyI0xKbGnQHY kZGRkOyc+PHRhYmxlIH dpZHRoPScxMDAlJyBzd GbpAL1qFj7dBCKlQZXs pPsamPVxCjIfi6seSVS zSEzsUW7tcOwoO6OwyT Y9XNNog8e4Ae80X04jO 3JvdXA+LLUkdRA1oZA4 nY4zAePzMrQ4NYhoT31 7YyAtjTDvGvgpf0aog1 jbbYy0UoA8OGLfxlQfm FgiOLN2q2ViSy54T73w IHdpZHRoPSIxNSUiIHZ mcJkohi0kpM5tKy3+PG MekSP4hJG9lN8wXoBqI oP0UOflU344TuHjeASn Wjrub7dij1glwPz5BoN bWRDlwbIdmGzqGPK6d4 KaGr59U9HsrHhgm0FvI ch2tg57wFJgw4I3sLL4 O8TnOWCqgtllwGUtkFb nHX4xADOwflvdOFNlxE 7tANOkJ7u2RlOjHhE7N CqtM3IdbqX1CBNovYLl MWRtuITMiK3tretpx9i myjmaKeFpYHBfSZv5MS b2ZPXfnYmfRzStFRQ5H oU5JLK9wIZniQ4ohDim mrxixQ4pGhh+GPS5qSC roDNJKM6aYbpdhWV+PH FcFHH8aJzmTPlnNJLdg C0vBNYcJ1g0ZpQqUbL0 IScvI4OudzT8FJVsxOU aKKBofLRWyO2paodux0 wmrzanLeYaENAlNCe9N Uj8GAHpoDlrLhXzQZD4 RxR5XXV5nBWdoC1hnMs smgskrR2dPth+QmlydG wsSWJ2YAi4X5ItVjx2T EQlzRdfDM9naTPnLDss Jk6udEucbHwcON8nXVG ezugpp772QiYis6tcDA BffQZeAErqOHU6T36ef 7Z3ABWoHFPiXQP2rHL1 mY8maAipwryuvTKkfBm gdmVydGljYWwtYWxpZ2 06HCAhsGvhXxAzILz4U 8DfJmf7NZXpdFmcCJ9k dHJnJSxhQg1vcBbgsRr mYS3kOTJijtual858Kx Hoq9ecELKtvGBiKFqgY BX8G88fi3F1NTCdFVYv OEH6mZF8nI8ykAvudmb gbGVmdDsgdmVydGljYW khWRbjE954AVHyaHbeD zFmmJn5F4JySjl2OHPu nZxjRY0kwRZpMEohSs9 rpCbevDxvRJ5kMSUkdf yji109DbAky5hnMUNtw DXfXCnsNGM1F94ln1I7 CFApXZRdUZP9hJB1jU8 hbGlnbjogbGVmdDsgdm AmeOlpQDpcXYjnK677Y HRvcDsnPlBhdGllbnQg RFivKPf8I3AxDelijWU +BU59POLiTE56gPWpbH Rla3nvxFu9MeBhUBSaC LK5zDkrSRzmp4EjVVEa L24vmJAle9M9OGSjgJz eyQZuCvFfiEX6wJ1bRM klopnqg8qqswwxCjhsr 3xzco60iN41O79lDAzz ZHRoPSIzMCUiIHZhbGl jme3pqB9gGl4+PGNvbC V5aWT7mC2pYKFnRnB5W IwvN273DpKglELiPnun m6qwj5cdlWr1CkF9VIT aalVzdPyxBSL2i7RcMz 38Z41jNJxtLYHnLMGsC COjSBMlgJistx8ddQ2s Ii8+CFDtbOU0tUF4rU2 lAqJlWtR4GFrhR685Fg HriFBlWroxH26uD0Bkh XA+GDBkAzq6DZIqoUde FH7jlKZqBBvvMx7iDXO 6CiGhRhNyUTihS5XfTC JhunikbogdjJK9FZKeU IKxyY16Cu7wjIylUFIy wJATaJ0vbfyvy9trczd vSbZqZTJpYDe5KMp8XO VdnSlpRjPdTEO8VxR2V CU6uHCatN4pnIagpxwi nY4jI9JoTIBuynqpPa6 5tF8fBtRzZyI5DUzyKe c+QkFLRVIsIEFMRVhBT kRSQSBNSUNIRUxMRTwv dGQ+LRAlDDW1dQghKZb mOKLigG9hRNYuQ7u5Ji KlSiN2JZvtT8CiICHvx xhkLn18xW0dNaSvTcQ9 DRmwW3EtdfN5SHEafGH kCOzcZDV6E58hh8R5VO BjJSEcPEF2xMN4xP0si GlnbjogbGVmdDsgdmVy rBabLHciAYruH581WJD aeZqcJtSfHtJ0WeIfGI Q0J7MnEkx2TCLsfKxvR J3yjCXwIBtpOv5nrNvp qAxqLM0cMBAfshmiXSG lmA9yTNMhgHMieFepGN 8xHGVrknvik061XnDiL PS3CZNgbQRgW2NmoC2g FlFvKRRuFWFdQ1LvtUM mIQzjL431USluTaZ6CP GxpbFtS6EpPGKxuUsqS zL2m3K7Kh1xSNORXLNq czwvdGQ+FYCfHQH7iRs nYYkfPWCdyM3vDPClA6 m1JkMbGtO6NKxzV9JdD TPttoutMn65hK8rVtHs LaH9QEtvM7VjznB9DHW zqLQqBYsmGUL4O68tf6 G0SZOnDSEsMZF1qMA9s X1jrOkpaeytbGWcqWab hmQknHkgVBveBRzbH57 6IHRvcDsnPkZFTUFMRT wvdGQ+FHRlHDB4gDnxG CjrIAXreX2hKIHqG5o1 BbXhYyG1FMwbU7CoMNM wswveMe22lP8mIkShUp B4CXxwZ9RgnnN0NZAgf JBkATioOZD9Y42go1S0 OOOkCCHlCVE0bYF9fP4 hbGlnbjogbGVmdDsgdm QxeSwfSGblXJmyY803D GOnuYlqFn3NKN96MZ91 T9YaQoqfhZKniQZ+PHR hYmxlIHdpZHRoPScxMD EnPlUmbNudAD5vUh6zR GVyLWNvbGxhcHNlOiBj d2dhDTEvYCqaUV0ofOr wU7OarHV9VDLmz0f2Ni 76B95hH1MfyWY+PGNvb LH8hTA5wB8xChGtEhK4 YUhkS739AsJyzOYzUfa pk9aec6msuPa4MvXxSA YnnvRnxLxxWBH4a0EdB g26B81bTGitLLAtTHVm TTOiNLFxyMgmoh8kiF4 wIi8+XZGwrNZ1hFH1lT 3fUuTqYxK0BGmjW019F aQutDDfXsnlY95cH2Ks dXA+BVZyEuw0GCRmtFj wIF5zsOYdWHrbKe7cZY T1OkOsVeHtMWspR8KaU WHcfjkncjjtyHK0YLRs DMTtyP55Qv3hgIhrUh9 oCRCaLQO4HITpbEKwA2 LzeU5nVvXbLRNlQOWpT 7HgsJMqBGdjS850HJey OxU5VEAmwhNiD7WtTLY txUxcYyV9o1I0Is7ThP gqkYEyLV7mZuJgSZi5R 9EzImh2SPMwlOgqZO9y hEBuVRoyGm2bxSykkOk uIU6hXVGobvbgw582Ha Zsb5ydDYLkoIAmTZmeO JI7L77lp4F7GXJyBIHu DXI6kDR9rR6lnTvrdml gbGVmdDsgdmVydGljYW ohPXaxM389XOEwpQxaE bSEQdq1P1BnDfc8BGZn nBzpLA5opCHePJipWu2 vsAplyHyaMV2oHYKwau izp365LcHbb9etAKTut JBkZCpzFFG7G84kc3A9 STIcWTZlPNF0ySG8rV0 hbGlnbjogbGVmdDsgdm HpwPwtGEsqSRwuA933Q RVvuYwbCl7PDtr1I3Zl Mah5FOYviQhhPD5tlKM cOMjqWn6muXgmhMynSN 3wSHKcizisx168SaGhl 9mdHJFvbHQmAKlaFHU6 G46pw4Q4ZWMjJMIvEHV 9oXP3bL7yuSdarpkwvU VmdDsgdmVydGljYWwtY NapD536DTCyuWnkMuFo eWVyOjwvdGQ+TY25ia0 6I7YlLonuJmr9XXKnUG V9xCQ4xE7wXCBiLHeoe 9O3lLI7R2YaxtSimh7x b2x (more content not included)... Normal [facility] C Throaton 01-12-2023 C Throat Ordered by Discern. Normal throat dong isolated No pathogens isolated Normal [facility] Comment on above: Performed By: #### [id number], [id number] #### [facility] (DEFAULT) [address] [place] [address]36 Progesterone LCon 01-11-2023 Progesterone LC 8.7 ng/mL Invalid Interpretation Code [facility] Comment on above: Result Comment: Foll icular phase 0.1 - 0.9 Luteal phase 1.8 - 23.9 Ovulation phase 0.1 - 12.0 First trimester 11.0 - 44.3 Second trimester 25.4 - 83.3 Third trimester 58.7 - 214.0 Postmenopausal 0.0 - 0.1 Performed At: [facility] [id number] Bibi Irwin PhD Ph:[phone] Performed By: #### 7 [id number] #### [facility] (DEFAULT) [address] [place] [address]9527 ED Clinical Summaryon 2022 ED Clinical Summary [facility] ? Urgent Care [address] [place] [id number] Clinical Summary PERSON INFORMATION Name: BRYNN WALLACE Age: 22 Years Sex: FEMALE : 2000 MRN: Acct#: Visit Reason: Throat pain - Adult; Body aches; SORE THROAT, HEADACHE Arrival: 01/10/2023 13:26:17 Discharge: 01/10/2023 15:12:00 LOS: 000 01:46 Check In: 01/10/2023 13:26:17 Checkout: 01/10/2023 15:12:00 Address: [address] [place] [address] PCP: Leah Azar PROVIDER INFORMATION Provider Role Assigned Unassigned Genesis Calvillo PA-C ED PA 01/10/2023 13:47:57 Kristen Velazquez [employer] Nurse 01/10/2023 13:53:38 VITALS INFORMATION Vital Sign [...] Adult Follow-Up: With: Address: When: Leah Azar [address] [place], [place] [id number] DIAGNOSIS: 1:Systemic viral illness; 2:Viral pharyngitis Patient Understands: Comment: Normal [facility] ED Patient Summaryon 023 ED Patient Summary [facility] ? Urgent Care [address] [place], [place] [id number] PATIENT DISCHARGE INSTRUCTIONS Patient Information Name: BRYNN WALLACE Age: 22 Years Date of : 2000 Reason For Visit: Throat pain - Adult; Body aches; SORE THROAT, HEADACHE Arrival Time: 01/10/2023 13:26:17 Phone: Primary Care Physician: Leah Azar Attending Physician: Genesis Calvillo PA-C Comment: Patient Education With: Address: When: Leah Azar [address] [place], [place] [id number] Sore Throat A sore throat is pain, [...] these instructions at home: Medicines ? Take plxf-phm-irvfsbq and prescription medicines only as told by [...] and water are not available, use hand sow manager. Contact a health care provider if: ? [...] can cause a sore throat. ? Take iwfi-rvj-eabrydv medicines only as told by your health [...] provider. Document Revised: 07/08/2021 Document Reviewed: 07/08/2021 [employer] Patient Education ? 2022 [employer]. Viral Illness, Adult Viruses are tiny germs [...] and grow ou (more content not included)... [facility] SARS-CoV-2 (COVID-19) PCRon 01-10-2023 Internal Control Pass [facility] Comment on above: Performed By: #### 3 [id number] #### [facility] (DEFAULT) [address] [place] [id number] SARS-CoV-2 (COVID-19) RNA HERBER+probe Ql (Unsp spec) Not detected Normal Not Detected [facility] Comment on above: Result Comment: Perf ormed by PCR methodology. Performed By: #### 3 [id number] #### [facility] (DEFAULT) [address] [place] [address] 18127 Strep Aon 01-10-2023 Strep procedure control Pass [facility] Comment on above: Performed By: #### 2 [id number] #### [facility] (DEFAULT) [address] [place] [address] 67159 Streptococcus A Negative Normal Negative [facility] Comment on above: Performed By: #### 4 [id number] #### [facility] (DEFAULT) [address] [place] [address]28 Progesterone LCon 12-14-2022 Progesterone LC 6.2 ng/mL Invalid Interpretation Code [facility] Comment on above: Result Comment: Foll icular phase 0.1 - 0.9 Luteal phase 1.8 - 23.9 Ovulation phase 0.1 - 12.0 First trimester 11.0 - 44.3 Second trimester 25.4 - 83.3 Third trimester 58.7 - 214.0 Postmenopausal 0.0 - 0.1 Performed At: [facility] [id number] Bibi Irwin PhD Ph:[phone] Performed By: #### 0 [id number] #### [facility] (DEFAULT) [address] [place] [address] Provider Orderson 12-11-2022 Provider Orders [id number] Normal [facility] Coding Summaryon 12-03-2022 Coding Summary HTMLBase 64 OthojrurPLr2gVt+PGh lYWQ+SX9YHVHvC22lwP XwxK9lQ3UYSUjURdliT JNMJQwNSgPbwjQqSY1q aXNjZXJu IC8+VH1hJOInLthnqUK wb6E1aRY7J58hpa9pCJ lrhWE9FYWnBxJzlgdrw 6ytgUi7QLzgMchrXyKx KGRywS80XAE4xN77Iy8 9bBUxmMDor9jpoBj5Xw VnJXPsLAH2ySgiKEaqs 6JjZWCaB63qkMWvl6T8 IGNvbGxhcHNlOyBlbXB 8lG8nOSsktytjv8oarq dqTqk6cd91kFQhz7L8a DM7N7UxdtU2WXBjxCPj BqkhzNUStS8krjdvo0f osiynCiYdGWLrSYg7BP l9WFBmtJysUbArPM56O MM4MENlaiUuN7QtQGYd rAvuAgD1o8R2Rm4PA1M DSjfwF5AEUTVSWHzkmC Q+CV87dd94L8KvMhowI mc1ETNnOBO6bIV0vW6c QNSkFFswi1E5rOD9F9R qrlPuhi1th7sxJOVaUV dxL96afOIif1G9TMFzf DK7SLZhzKcvJkJxxS51 Oyc+DLLrkUmzi2CeSwl ls4vaf4knlPw2UphjSD EybvSinPgeJHE4h2ZrH p5aCKCrmVP0bVY3sY1b ZoNbGlN5BChfL576AhI vlPHtHitnB54hK6WoaJ A+HKVlGix0PIMyrRfaB X1aS2GjBABssjuboXQj fMynJE8xWUBvozojBHB jgN6mVZZgX1v2VnXzYo Z6TAviQ0MyGPSfgxpzR c54nI8iFtVrFsD1MNav A6XgfpU9AXFesHJzGQi sTPY2Y05la0I7WTSpJX SnTWN4bFS5yH7hwNqgt jogbGVmdDsgdmVydGlj ELpcWYtrY077WORbbAs nPkNvZGluZyBEYXRlOi AgMDgvMTEvMjAyMzwvd GQ+ZVUwXIH0bLzoIDHu eVWtKWjyXl0ijBmdnGb jEL1sBUZuppjyTVFmvL 1wXHMmhOEtwZnlZA9zS ZSvgwkkt507UxBxWUP9 DGWtmTAuL7PgbO6kOqM pDOShQMHwJ1ZgoZDkXR wvU622SExgCrE9QTNcn hCpU9WvSDXowKtlVcO3 d1Z0Gc5Tj5IrgvanD8A dhXTkYtMxUxptZUd0Y2 RkPjwvdHI+FM18XOAfN Q94VRv9JQX1aLckTVfx HNWxR7GfdB1rOiImIWP kZGRkOyc+PHRhYmxlIH dpZHRoPScxMDAlJyBzd OfsSM2rKi2zVVRvLETm qNmsiNPfZgUzl5swCLM hIPqtHZ0wzSicI5QrqQ Q6HHFkr5x7Kz98H10uW 3JvdXA+TLKthGG4mFV1 nB6yIyJlPvN9KYusO00 4ZnJuoNLdDmaat0csj5 qvmBt2DmZ9XNEdboHkd UjuKTQ9m3OjVm10N47k IHdpZHRoPSIxNSUiIHZ rkPhyln8ljT4cAi6+PG PzzCT0xLU4aL4qUiBtH dS4WXgxX169RtJjwRUt Qbpqi0xzx3pibHn2HyV lWCCrrhHjzEuuCDS4o0 NdXu84K6BgxQiyb0NgN ey9xu05lVSwv1S0zPU4 H4ArQZZjerqqeZBodFi sBF1pWLEdcnwrQETpmD 7xECTjK0i2SaWvDsD3R YgeY3BanrK0GCKawFRt OKEgmFRAvT4ugidel2k ssfkmFjVrJMQqTNb3YZ l6BYQmyHlgNjHiJCO3B lC9JMP3aJBpdH5zoMwm fzsmkN8vOuf+EGE9sKG ysPBYIV6dKyskzSK+PH NmEGR2lXibQSxqOKGku V9iMRUoC1o8ErOgYuB2 MFjoA3OhnjV9ZWMsvFI nXPLjnPNOxI8dbucdm5 bdbooeCiUpVWGgVVf5C Xp1HLGvlBkzOtHnAXQ3 OpJ4VKA8nWUewX3mlLt jxkemrN6zJgg+QmlydG elEDL2GXw5E3QsIzc3W XRtuTwgXQ3gtUAyBTml Dr2mmMifbDwlTE2jGSM lefjcb298ZfCuf6elDB JfmZMgJAvrVBL7A55xl 7O5RRPiAUXnWGI3zTZ8 jK1ojZfxslafmDEibCs gdmVydGljYWwtYWxpZ2 97SBZvjLmgJsLwVNn2K 4EuQqv8UKWpoDqsKD1l aPKhVFjrAr8qbMszyMh zGV1iQQAjwmmwx891Py Nxd8owJYEyqNHxVKklM JW8X83au3A9OCYrPFVy ITP5mYN0cU4hmTqkwym gbGVmdDsgdmVydGljYW qvWXrmE023FOAwsAqxD gEbmIr6H5AoAdg7XOYb bJgrBB9sjERdGGtaXp7 wdIetxYudHG4kVBIgkf xnb547EhTjr9emGGRmr ZVeMCfcJBM9H68ge1Q3 CRFePSGoREE2tBS2zZ0 hbGlnbjogbGVmdDsgdm IyiTwyMQviVTteC031H HRvcDsnPlBhdGllbnQg POgcOUq4C9LrDeulxUM +QR96ZHTvFD04sCHgbZ Dyl5sqpPz8JzHoLSQdB SX5aWawWYihk0MnKPVe C11djPUck0E2TEAunOh iuNSgUjDdbKF8fT9wKK gdzazkt3hsxdldYavhr 6aurk25lS80E78lUXid ZHRoPSIzMCUiIHZhbGl sni0jiB8iSh0+PGNvbC C2nXN4eU5uPVNaNcE0J FgrI390MkQyjNIdOuvk g3jhl3gseRo4AsP7WPY genBunSxgGAX9z2YpVw 48M63zYTaoDKYeFIBpH VCuROBsxIfyuc8rcY7k Ii8+NMArnCC8jEX8tL8 fYuReAjE5FBxwS925Lb YcwWLsVutxS81oN9Dyl XA+UFEuVve2QHIylJor XW4meROiHRyoEu9uFQJ 9BvGhTpRyVSboZ8RoWW RkgazzsdcplNG5TFQiK VXefV56Of1eoPteOWEu wPNEwN8hyqfab9bvfbw mXpKyCOVhXCt9XZr2TY RguLnwLaJkXSP6ObL6D QD4iQEvmB5ymYrqdpmc eD5oB0EmJAAlmwpvQd3 4fH8dNlZhBxF0PAxuSa c+QkFLRVIsIEFMRVhBT kRSQSBNSUNIRUxMRTwv dGQ+ZGGlEXV3jQhqBDd bDABidQ0tTLMiG5g1Ed NoXgF9NOqnY7WtNQXih ldoTb96xJ1eOrJzUqU9 MStrZ4RfneK4VUWijIN rCVmxYLP1Z74dw4J2OE UbAQBkNQZ2iHE6vN8nr GlnbjogbGVmdDsgdmVy vYmiZTduBXxoF552CMC tyGpeOnLjBoJ7CwLvUT N6Q2IuFya5PIJkxGheV M3iwOWbOHsdWp3ovGrx jVfyXT7xZOLdevcjVCQ tlE0wVZJnzMBmfPecND 1eIFHsukwsc266JcNcM DS5SUZbkZTnL8GujS4k SfYpIYMuGUPoY4KkxZQ jIUwaY621DVmuKiM7AW DkwqAmG7OuVIBaaDfjB jC6w0W4Oi5aMEVZDOQw czwvdGQ+NGMkJZS5tFo wBVusNSOijN0rAJWrS1 k1WoSqZfO5TRzaT1OlY TYplnrqXp34sQ0lFeYt ZvO2QUbxT7LnwvZ6ANI gfECyKQmyUSX3Z01ev5 B0UIVyPCFhXZH2kBQ4n Z3gtOovqqzwtAWraMnw bbIjbWunRTkcZKadQ64 6IHRvcDsnPkZFTUFMRT wvdGQ+VDRaPSB7oVxxS QqbXNEkhB2gYFMbD1a0 LgCsTrZ3MJbjI1EkTUY srsluRr09fR0sUaCcLu N4ASjnL6WmgkN0CYMta XEgHNrfPFA9H54lo7N0 TIJtYXHzYYK6cWW7hO3 hbGlnbjogbGVmdDsgdm JfdLciVDjyJDmaM173J ALmdKqhKb9SKP83ZR73 K8PxRrtkuJIumTK+PHR hYmxlIHdpZHRoPScxMD AfRjIboRslDO6ePr6mV GVyLWNvbGxhcHNlOiBj n6riTTPiUDyjZR0lyGd cY9BigLQ3PYOtl3u6Pt 52L29tO3BlyOW+PGNvb GU4aZD7rM7tFbEfHgK3 MWczP212NpFyyRUrRgg zh8kjg5oueUq9WcUoAE XxviZymVmsSBE8b2YiJ g06M48fDUoeTHZxHUUc SSAqMXFwzErdvn6zcE0 wIi8+SPJwaYZ2uPU0mR 8bMgOdAfF2WCgaJ071T lHchSKaRdyeY97rX9Xf dXA+TNEhSix5QEMgvJs mNF3nwKNyYBeuIx5oDZ P2HpWyPvHfBHalK9TwM EXxpifslapzbQK6XPWk YGDtiE25Np8wjJczQx3 dNXPvGDS2ORDyaSAjK4 KovY5oIjYqILPtKHKgR 6NuoYBjDRhrN216ETel BbI1TUYezwOrT4UiFPJ gbRnhBgZ0b5O6El9QtA oclWZmGZ6mOtLpTWo6F 4PzTto2CWLuaGszLI6o gLUaYVklOj8huMxlzMk lRR4nAIFsqonoz335Pj Qlp2ixIKShgDSjIWsjQ LD2M52ep4T7IRBxBMUn MJK3qQJ7aX2arQqaaiv gbGVmdDsgdmVydGljYW rdHYwhK144IWJmaPzoF eRCOio6B4CrCph3MNRz rNsnRY9zoLBrEDnaSp2 nrXvjuVinTJ5rAZOoiq cef101GsRbh7ipKALns PDnSMoeLFI0Q15eq4F0 DVVyNSGbXMX1qYP3eU5 hbGlnbjogbGVmdDsgdm WszRciLDjeUPyhR909V IQbjTgvEg0DHuz5F7Az Bcm6LAVnfAuvUB8nfPQ rSRzrDn1wjTdvqHxcTP 7gICUwulyap483NpUjn 6euJMUfhPHdFPseXTN9 A54hk3C6WQTqVSFpQDT 5xCO5nZ0xfRdlcvmpuG VmdDsgdmVydGljYWwtY CjmL512HMNakTxpOuVp eWVyOjwvdGQ+TD82un6 3A0VbFyakGyt8JAQgWZ X7iIE3uI7dEAMzAYkzv 1X1lZU5Q9TlsbUrqs5d b2x (more content not included)... [facility] US Pelvis Non-OB Completeon 11-29-2022 US [...] MD 11/30/22 10:38 a Technologist: Geno TORRES [facility] Provider Orderson 11-26-2022 Provider Orders [id number] [facility] Coding Summaryon 11-22-2022 Coding Summary HTMLBase 64 PgpttsbrJWp9vLa+PGh lYWQ+OT8LNXOoG64nyV BkmA3pH6LBJExTFhfwO TAGPZlYKhSuoqRsZX8q aXNjZXJu IC8+PF6gSBXkCelswQA si3T9uPT8H55xlv9hSX bltNG9RFNmTdOdgfwlr 2lehKa2AIupMkrjDrVu OVXdqL14PZH8dH72Cn8 2pIGcgZBzu3dpeIh1Sk OuHZVtSKS9yGucZAnuc 6TmJUZgE55xdNBkf4V6 IGNvbGxhcHNlOyBlbXB 0wP4rECuzmrpwj5vgxk pzRro3ko54gZErx7F7u VG9V7RwmxB3WVBwbAHu WwobdWMVlX2adlvla7f rbueqVrZgGZRaIXv6XH x4ZENggMzoIrWvAJ72D KS9JPAhsbXnJ4VwYGVo tZkyVwP9j5I2Ex0NS3Q EGjmpD2XFQQRWQZtlvW Q+UN09ro48U9SoIfxtL xe2TEJpCMN6eVF8lX8e VRYbCMeci5O5xZC1B3N pofTkir4qz5uyUHKbQY sqY71laNRxz1T1NRSda WK5XCTbzHldPeOmaB71 Oyc+FDKwfEywt8MwJvh jq5rmi4vpnWa8RafiTV VpytEprQjrGDC6u9ZfZ f4bRLQgbQW0xDS0zO9h UeXwZdV8FRstI793HsW tiZFdJcfpW53yQ8FjyD A+JYOiGyv1CYXbyXafR T5tI9CpCCLtswlhlFBq wPscNA5oQGRzdrbdYWW zoA4xBOWcI6a1GnNtNd L6LEpvV8WaHUBaoflcW x72zN4uHeKwFfF3SFdj B9PdepW4NYRisOWpFMg mIYY0U87ii7I4DPPrKU ElKHV5zBR3yL6fsEovq jogbGVmdDsgdmVydGlj DBdjLCwnR658EOXvyWp nPkNvZGluZyBEYXRlOi AgMDcvMzEvMjAyMzwvd GQ+NQXxZMX5rPuaGACc hPPlWHzkUo7wkDvujGo wGL4eKMGiteygLLPqpD 8lPDKxnNYccVzxGA6vS FZuyzfye374SvKtPTY1 OJFqkQLeN2FxyK9lXhW tLHRlVJAbP2QoeLCmXD liM531BGjgTpL7XXEfx gJyD9PiYBUpcImnYlL6 u0C1Et3Mq7LneudfL2U pqQPvNjKcPegcQZz0K0 RkPjwvdHI+WI26YETaW R06LSh4ITY1dByjZPni GYKyG0BwrR8wHqZbFZP kZGRkOyc+PHRhYmxlIH dpZHRoPScxMDAlJyBzd TdnTY2aAx5jNUElMJFg hHafwYVsQoAsk8yzKRD bDOppAZ6bzJstL6VkpF Z6QDUzw0j6Vy58I30eM 3JvdXA+VXQvvRF6bBJ8 qU3fVtAmCiZ5PIifV87 1ZgIzxXZkLgtbm4bjb7 cjcCr3ApK7GNZeujJuu HicZZA0r0NnIv38U14g IHdpZHRoPSIxNSUiIHZ gzQoyzu6zjG3hTv7+PG EwsGB7uJM9dJ1tIqZyS uU5IFuuO321UqVdrQTy Nqhee7srb9idkBx3KyX hAPWdsvPdjUrqPUC5r4 PxJu59J5WvkUnwv6ApY wz9az95mOFno3X0zOZ6 F1CePEHzttkkrBVpgZn eBL1zTVOytkesXSUxlY 2bIQUzI2f9KrXoUyS5T SnpB3CoulD3SFJdrRWu IJVexNLXfJ4fnedgq8g pxufcLkWgVJOiCCu0FA v9NJXnbWpmBtUpPVN3I bT0NNA0mVKsxA2zhXxk swnqzJ1mBbs+DRI1rYM zqSYIFL2xArmsrSV+PH NuHZC7fFhvERamBQPnw A7dNWRcV2c7PlThHjG4 PKdnS3QsdnC1XAEtgND oIBMqbWYIaB3oeyswv6 gvnhrsLjJuEQUuWGv5V Gn1LJJdwDcvVfIfGGI3 JoK5TOL9pXWjmK0ulYl esurcxT1sUmn+QmlydG jwRLD3WRo2A4AvRax5M LIumLjkPN4mtDInNDor Lz9dqDyykDaaTO5xZTF khlnln532QfDap8onNK EkfTIpYUmgYIQ7C21bw 1O1DEYjHUHvOLU5kDK3 rT0trIgysjtzcZRmrHt gdmVydGljYWwtYWxpZ2 53BXVcjJluJtWkXYg9R 1RbPeo2NNOuiRjbBL7v aONxQIopZp8xcVznhZh mDT4vYDOrvcfdp870Kr Fwf1lhXGRzrHMzAVwjB FC3I37kg8G2LFKkGMEv WCU6pBH4nA1mcDctmng gbGVmdDsgdmVydGljYW omWXssF506JBTswKleV yUjtHd3U1ChDlc8GOCx oIheVI2sjQApLQmmZe0 cnSstnTllBI7gJXQlyk wpq022OpIio8awXKJhh VOtOKrsKNR9R95qj9X9 UQUdAUTjRKB2xLS8pH4 hbGlnbjogbGVmdDsgdm VkdTvkSKmmVTvsP669M HRvcDsnPlBhdGllbnQg XZvuYBk6F9WbLpnsrDL +MQ22STCbBZ86eYNycN Ztd7ynuDk0AbMkIWSoC ZJ9nZgpXSaxc2AvKMNs D40atIQtm2V2MRYcvLy tsPIgDfFfpFJ5nJ2uNW uraoieu6xeqneuImvxg 4enwi43jA01R61bUFly ZHRoPSIzMCUiIHZhbGl vwy6yjJ4yVi5+PGNvbC Y6aAQ2aL2pQIUxDwV1M GcfX235LhCbvKNsFoaa c5hqw1kmsZm0HnP2VFM wfhQvdXkaLGP5q7DqMv 93Z29uIKxsNNGpKHZyU SBmHVWinPoqae6ubY0k Ii8+PENdgBA6uZE7gB7 xCxJmDkC9EDpdH009Wb GzcFMpCubmD54mK1Txa XA+WCBiKzh0ZVLohEnb LY4onPHjKPvcBh3kZGV 1XxGdFoGlCSxgX4QlCB ZxamgwjjbzgHZ9KWKiE GNzwR58Zd0rxFewZGTb yCYAlB0ygcngd8fzoor bJiXfUDYdQYr9XTh6IN XmqUmaLvLgIYI1PiI3Q CS4bQVckW5fkWmmczhf tH6eT7OfRLErsonzPk5 7kU4nHhWsDrB3YRqhRj c+QkFLRVIsIEFMRVhBT kRSQSBNSUNIRUxMRTwv dGQ+WYJdRLO3pVwoKJw oKAKbmZ9fIDCqT4l0Tk TyXfB5MVpmV6JhWYLbd xftGf96xI1mSyMpEfI2 IWyqA3LlrfI6NEJsjPE yZTeeFHY8H21sd0U8AN HdTTVxOST9mAE1oU5ie GlnbjogbGVmdDsgdmVy sAvhHLftKWmtF838RWD qvVksMvJkAbX7DeKxNW X3R3HwNka6WDXfnUqhU R6xrABkSBrnWp2ilOcz cPbbRZ5jXFRpyszrEGY ibM8oJYImrIEgjLbjON 5mLYQmummot281NbRcL YI0CLKqbMIzY1PzcH9s LqYhNXHoPKWsM5QliHY pPOqaN901ZGcxSaH4ZD QbglRwJ3CsFQBdpEfhR oM1b0R0Uj6yRXOQZIEk czwvdGQ+RORqKWU6fYk oVFiyPZRstT8uHDWiS8 z4EhQsHlX9JDvlN9OpL BStdvgnBy99pF0fWtPz JxQ4CNvfF5FimeO1LZB bzCRuPUwoZTK7K25or5 K6GSMsEZBhWGP8rLH7m R3fsMeuwluusTKysWcv imYizYnuVEplFQuoC61 6IHRvcDsnPkZFTUFMRT wvdGQ+NHUcBYK8aDucQ VuuFWAtwY7uFUVzZ6m7 SjAdTtM2IRimQ8PbALC pouwdRe79vB2fAcZpJa I4BLhrZ5CzeoI2BQQpw JZrQBkrLVW5I80zk9R9 EUMiIOSiMVS2hNL3bS9 hbGlnbjogbGVmdDsgdm ZvtSogBMzqVWshF550B WLmfJqvDw4ZIK81JM42 D5FtTqoqdLAwsRA+PHR hYmxlIHdpZHRoPScxMD OgIrAniZqaYP9yHo9hX GVyLWNvbGxhcHNlOiBj v3byBEGiYPpxNG8tbMf qN3YkjYK9MZUbz9x3Da 46X52nE1QynHD+PGNvb BA4nVR0xF4iXuAaWeL3 LLksG397ZoBwkQGfRiy gl1juc6nqfMn1MiVaLK VuerUycKnrPIF7i9VpF o15K79xXNemHBZgURPf XQSqNVUdnYmscq0paE3 wIi8+XDQggDY8pAO8vZ 9mCxVkIiA3OKglW935M eZvyXBuKoitG88eO9Ce dXA+LESlNgv1PMTqiOu kBU7qxBIeQScaSk8eNC G2UfWqErQlKPrlL3EuD WEgjarzfdvncQH5DYZt MFJlyG81Fj6zcMupXt7 uNXRbFHC8EGJqcMJvJ1 DjnJ8oXsTcTDHtMPYrJ 0NpiFHiRVbaR414SEdr KfD3MHTnyuYmT4MvHFC ntYexQgZ1l1Y4Dx0PdR fliTSnCL5dHpRpNYr9M 2VhJio8BEBocAneTD0z yMPzFUeuIa3ioMsidNv yQG1cRLZlgeytz769Nd Xsy5vgUZZyuTRuMDhtQ ZQ1D64eu2C8ZZSrPDAr LMR6mZN3wC6xiTfmhbe gbGVmdDsgdmVydGljYW bgVPxvG782IYQauRljE nALOjn5D1XgKfz6WLDa mChhVW2ynAWpBWryDp6 axBlvgLjtFU3fBOMghx tib677CkEoc1yoRPMqx UNwFVayEOS0R22cv2I1 HWBoJECxYYP0cPZ0sZ8 hbGlnbjogbGVmdDsgdm HzsAauDTxsEKncU110J SVurBxdPm5EBtb8F8Ja Bya9MQNxzOwfXZ7ktPJ hAZctMh4igPxvqAtyOK 2nTNAhsqkig674RdGap 0jaQLMteOFtFCdsRLT6 Z34qo6M8XZLwSXMvEGA 5cFU0jN2qxUlkkccrgF VmdDsgdmVydGljYWwtY QvfY568SSGfuGwzAlMv eWVyOjwvdGQ+KM65uj7 8L3SiRecpCat2JCKzFR X7uXR1fC9mTSKqMFhwp 1M6gRR3E5YinbIyxp0l b2x (more content not included)... [facility] Dehydroepiandrosterone (DHEA ) LCon 07-29-2023 Dehydroepiandrosterone (DHEA) LC 340 ng/dL Invalid Interpretation Code 31-521 [facility] Comment on above: Result Comment: This test was developed and its performance characteristics determined by [facility]. It has not been cleared or approved by the Food and Drug Administration. Performed At: [address] [id number] Morris Nayak MD Ph:[phone] Performed By: #### 0 [id number], [id number], [id number] #### [facility] (DEFAULT) [address] [place] [address] Dehydroepiandrosterone Sulfa te LCon 11-18-2022 DHEA-Sulfate LC 612.0 ug/dL High 110.0-431.7 [facility] Comment on above: Result Comment: Perf ormed At: [address] [id number] Bibi Irwin PhD Ph:[phone] Performed By: #### 7 [id number], [id number], [id number] #### [facility] (DEFAULT) [address] [place] [address] 89514 FSH and LH LCon 11-18-2022 FSH LC 1.9 mIU/mL Invalid Interpretation Code [facility] Comment on above: Result Comment: Adul t Female: Follicular phase 3.5 - 12.5 Ovulation phase 4.7 - 21.5 Luteal phase 1.7 - 7.7 Postmenopausal 25.8 - 134.8 Performed At: [address] [id number] Bibi Irwin PhD Ph:[phone] Performed By: #### 2 [id number], [id number], [id number] #### [facility] (DEFAULT) [address] [place] [address] 24103 LH LC 1.9 mIU/mL Invalid Interpretation Code [facility] Comment on above: Result Comment: Adul t Female: Follicular phase 2.4 - 12.6 Ovulation phase 14.0 - 95.6 Luteal phase 1.0 - 11.4 Postmenopausal 7.7 - 58.5 Performed By: #### 1 [id number], [id number], [id number] #### [facility] (DEFAULT) [address] [place] [address] 07008 .Auto Diff 1on 11-17-2022 Auto [place] % 5 % Normal 1-12 [facility] Comment on above: Performed By: #### 5 [id number], [id number], [id number] #### [facility] (DEFAULT) [address] [place] [address] 35446 Baso Abs# 0.1 x10 Normal 0.0-0.2 [facility] Comment on above: Performed By: #### 0 [id number], [id number], [id number] #### [facility] (DEFAULT) [address] [place] [address] 22215 Basophils/100 WBC (Bld) 1.0 % Normal 0.2-2.0 [facility] Comment on above: Performed By: #### 2 [id number], [id number], [id number] #### [facility] (DEFAULT) [address] [place] [address] 82363 Eos Abs# 0.1 x10 Normal 0.0-0.4 [facility] Comment on above: Performed By: #### 0 [id number], [id number], [id number] #### [facility] (DEFAULT) [address] [place] [address] 63633 Eosinophils/100 WBC (Bld) 0.7 % Low 0.9-4.0 [facility] Comment on above: Performed By: #### 4 [id number], [id number], [id number] #### [facility] (DEFAULT) [address] [place] [address] 92878 Lymph Abs# 1.9 x10 Normal 1.3-2.9 [facility] Comment on above: Performed By: #### 3 [id number], [id number], [id number] #### [facility] (DEFAULT) [address] [place] [address] 52360 Lymphocytes/100 WBC (Bld) 19 % Normal 14-48 [facility] Comment on above: Performed By: #### 7 [id number], [id number], [id number] #### [facility] (DEFAULT) [address] [place] [address] [place] Abs# 0.5 x10 Normal 0.0-0.8 [facility] Comment on above: Performed By: #### 6 [id number], [id number], [id number] #### [facility] (DEFAULT) [address] [place] [address] Neut Abs# 7.7 x10 Normal 1.5-9.2 [facility] Comment on above: Performed By: #### 8 [id number], [id number], [id number] #### [facility] (DEFAULT) [address] [place] [address] Neutrophils/100 WBC (Bld) 75 % Normal 44-88 [facility] Comment on above: Performed By: #### 2 [id number], [id number], [id number] #### [facility] (DEFAULT) [address] [place] [address] CBC w/ Auto Diffon 3 Erythrocyte distribution width (RBC) [Ratio] 12.9 % Normal 11.5-15.0 [facility] Comment on above: Performed By: #### 1 [id number], [id number], [id number] #### [facility] (DEFAULT) [address] [place] [address] Hematocrit (Bld) [Volume fraction] 41.8 % High 33.7-40.4 [facility] Comment on above: Performed By: #### 5 [id number], [id number], [id number] #### [facility] (DEFAULT) [address] [place] [address] Hemoglobin (Bld) [Mass/Vol] 14.0 g/dL Normal 11.3-15.9 [facility] Comment on above: Performed By: #### 4 [id number], [id number], [id number] #### [facility] (DEFAULT) [address] [place] [address] 93515 Man Diff? Auto Invalid Interpretation Code [facility] Comment on above: Performed By: #### 4 [id number], [id number], [id number] #### [facility] (DEFAULT) [address] [place] [address] 04530 MCH (RBC) [Entitic mass] 29 pg Normal 24-34 [facility] Comment on above: Performed By: #### 0 [id number], [id number], [id number] #### [facility] (DEFAULT) [address] [place] [address] 59068 MCHC (RBC) [Mass/Vol] 34 g/dL Normal 26-37 [facility] Comment on above: Performed By: #### 1 [id number], [id number], [id number] #### [facility] (DEFAULT) [address] [place] [address] 12943 MCV (RBC) [Entitic vol] 87 fL Normal 81-100 [facility] Comment on above: Performed By: #### 9 [id number], [id number], [id number] #### [facility] (DEFAULT) [address] [place] [address] 27999 Platelet 280 x10 Normal 138-427 [facility] Comment on above: Performed By: #### 0 [id number], [id number], [id number] #### [facility] (DEFAULT) [address] [place] [address] 98591 Platelet mean volume (Bld) [Entitic vol] 8.0 fL Normal 6.3-10.2 [facility] Comment on above: Performed By: #### 0 [id number], [id number], [id number] #### [facility] (DEFAULT) [address] [place] [address] 44700 RBC 4.83 x10 Normal 3.70-5.30 [facility] Comment on above: Performed By: #### 7 [id number], [id number], [id number] #### [facility] (DEFAULT) [address] [place] [address] 29584 WBC 10.3 x10 Normal 3.5-10.5 [facility] Comment on above: Performed By: #### 5 [id number], [id number], [id number] #### [facility] (DEFAULT) [address] [place] [address] Free T4on 11-17-2022 Free T4 [Mass/Vol] 1.06 ng/dL Normal 0.61-1.12 [facility] Comment on above: Performed By: #### 7 [id number], [id number], [id number] #### [facility] (DEFAULT) [address] [place] [address] HgbA1c Standardon 11-17-2022 .Hb 15.7 Invalid Interpretation Code [facility] Comment on above: Performed By: #### 1 [id number], [id number], [id number] #### [facility] (DEFAULT) [address] [place] [address] .Hgb A1c 0.55 g/dL Invalid Interpretation Code [facility] Comment on above: Performed By: #### 1 [id number], [id number], [id number] #### [facility] (DEFAULT) [address] [place] [address] Glucose [Mass/Vol] 105 mg/dL Invalid Interpretation Code [facility] Comment on above: Performed By: #### 7 [id number], [id number], [id number] #### [facility] (DEFAULT) [address] [place] [address] HbA1c (Bld) [Mass fraction] 5.3 % Normal 4.6-6.2 [facility] Comment on above: Performed By: #### 7 [id number], [id number], [id number] #### [facility] (DEFAULT) [address] [place] [address] Provider Orderson 11-17-2022 Provider Orders [id number] [id number] Normal [facility] TSHon 11-17-2022 TSH Qn 1.26 m[IU]/L Normal 0.45-5.33 [facility] Comment on above: Performed By: #### 2 [id number], [id number], [id number] #### [facility] (DEFAULT) [address] [place] [address] 74772 hCG Quantitativeon hCG Quantitative <0.6 Normal 0.0-0.6 [facility] Comment on above: Result Comment: Post -Menopausal Reference Range is: 0.1-11.6 mIU/mL Performed By: #### 9 [id number], [id number], [id number] #### [facility] (DEFAULT) [address] [place] [address] 29556 Lab - Toxicology Resultson 10-20-2022 Lab - Toxicology Results [id number] [id number] 1#1.00OTGTIFF Normal [facility] QuantiFERON-TB Gold Pluson 10-20-2022 QuantiFERON-TB Gold Plus Negative Invalid Interpretation Code Negative [facility] Comment on above: Result Comment: No r esponse to M tuberculosis antigens detected. Infection with M tuberculosis is unlikely, but high risk individuals should be considered for additional testing (ATS/IDSA/CDC Clinical Practice Guidelines, 2017). The reference range is an Antigen minus Nil result of <0.35 IU/mL. Chemiluminescence immunoassay methodology Performed At: [address] [id number] Bibi Irwin PhD Ph:[phone] Performed By: #### 5 [id number] #### [facility] (DEFAULT) [address] [place] [address] QuantiFERON Incubation Incubation performed. Invalid Interpretation Code [facility] Comment on above: Result Comment: Perf ormed At: [address] [id number] Bibi Irwin PhD Ph:[phone] Performed By: #### 0 [id number] #### [facility] (DEFAULT) [address] [place] [address]854 HBSab Qnt LCon 10-19-2022 Hep B Surf Ab Quant LC <3.1 Low Immunity>9.9 [facility] Comment on above: Result Comment: Stat us of Immunity Anti-HBs Level Inconsistent with Immunity 0.0 - 9.9 Consistent with Immunity >9.9 Performed At: [facility] [address] [place], [place] [id number] Bibi Irwin PhD Ph:[phone] Performed By: #### 6 [id number] #### [facility] (DEFAULT) [address] [place] [address]397 Measles/Mumps/Rubella Immuni ty [facility] 10-19-2022 Mumps Abs, IgG LC 132.0 AU/mL Invalid Interpretation Code Immune >10.9 [facility] Comment on above: Result Comment: Nega tive <9.0 Equivocal 9.0 - 10.9 Positive >10.9 A positive result generally indicates past exposure to Mumps virus or previous vaccination. Performed At: [facility] [address] [place], [place] [id number] Bibi Irwin PhD Ph:[phone] Performed By: #### 9 [id number] #### [facility] (DEFAULT) [address] [place] [address] 10248 Rubella Antibodies, IgG LC 1.78 index Invalid Interpretation Code Immune >0.99 [facility] Comment on above: Result Comment: Non- immune <0.90 Equivocal 0.90 - 0.99 Immune >0.99 Performed By: #### 7 [id number] #### [facility] (DEFAULT) [address] [place] [address]2766 Rubeola Ab, IgG, EIA LC >300.0 Invalid Interpretation Code Immune >16.4 [facility] Comment on above: Result Comment: Nega tive <13.5 Equivocal 13.5 - 16.4 Positive >16.4 Presence of antibodies to Rubeola is presumptive evidence of immunity except when acute infection is suspected. Performed By: #### 7 [id number] #### [facility] (DEFAULT) [address] [place] [address] Nicotine Metabolite, Urine L Con 10-19-2022 Cotinine LC Negative Invalid Interpretation Code Nacxvy=630 [facility] Comment on above: Result Comment: Perf ormed At: [facility] [place] [address] [place], [place] [id number] Rachel Garcia PhD Ph:[phone] Performed By: #### 9 [id number] #### [facility] (DEFAULT) [address] [place] [address] US Pelvic Complete w/Transva ginalon 06-21-2022 US [...] by Pepito Martins on 06/22/2022 1125 Normal [facility] XR Abdomen Single View (KUB) *on 06-18-2022 XR Abdomen Single View (KUB)* COMPARISON: NONE. FINDINGS: The bowel gas pattern is unremarkable. There are no dilated loops of bowel. There are no acute osseous changes. IMPRESSION: There are no acute changes. Report reported and signed by ALONSO PADRON on 06/19/2022 1201 Normal [facility] CBC AUTO DIFFon 12-12-2020 BASO # 0.1 103/ul Normal 0.0-0.1 [facility] Comment on above: Performed By: #### C BC #### [facility] [address] [id number] Jatin Tracey Basophils/100 WBC (Bld) 0.7 % Normal 0.2-2.0 [facility] Comment on above: Performed By: #### C BC #### [facility] [address] [place] [address] Jatin Tracey EO # 0.4 103/ul Normal 0.0-0.7 [facility] Comment on above: Performed By: #### C BC #### [facility] [address] [place], [place] [id number] Jatin Tracey Eosinophils/100 WBC (Bld) 3.4 % Normal 0.9-7.0 [facility] Comment on above: Performed By: #### C BC #### [facility] [address] [place] [address] Jatin Tracey Erythrocyte distribution width (RBC) [Ratio] 11.8 % Normal 11.0-15.0 [facility] Comment on above: Performed By: #### C BC #### [facility] [address] [place], [place] [id number] Jatin Tracey Hematocrit (Bld) [Volume fraction] 42.6 % Normal 36.0-48.0 [facility] Comment on above: Performed By: #### C BC #### [facility] [address] [place], [place] [address] Jatin Tracey Hemoglobin (Bld) [Mass/Vol] 14.3 g/dL Normal 12.0-16.0 [facility] Comment on above: Performed By: #### C BC #### [facility] [address] [place], [place] [address] Jatin Tracey IG # 0.03 10e3/ul Normal 0.00-0.03 [facility] Comment on above: Performed By: #### C BC #### [facility] [address] [place], [place] [address] Jatin Tracey IG % 0.3 % Normal 0.0-0.5 [facility] Comment on above: Performed By: #### C BC #### [facility] [address] [place] [address] Jatin Tracey LYMPH # 2.2 103/ul Normal 1.2-3.8 [facility] Comment on above: Performed By: #### C BC #### [facility] [address] [place] [address] Jatin Tracey Lymphocytes/100 WBC (Bld) 20.7 % Normal 20.5-60.0 [facility] Comment on above: Performed By: #### C BC #### [facility] [address] [place] [address] Jatin Webb MANUAL DIFF REQ NO Normal [facility] Comment on above: Performed By: #### C BC #### [facility] [address] [place] [address] Jatinandrez Vergaraen MCH (RBC) [Entitic mass] 30.4 pg Normal 26.7-34.0 [facility] Comment on above: Performed By: #### C BC #### [facility] [address] [place] [address] Jatinandrez Webb MCHC (RBC) [Mass/Vol] 33.6 g/dL Normal 29.9-35.2 [facility] Comment on above: Performed By: #### C BC #### [facility] [address] [place] [address] Jatinandrez Vergaraen MCV (RBC) [Entitic vol] 90.4 fL Normal 81.0-99.0 [facility] Comment on above: Performed By: #### C BC #### [facility] [address] [place] [address] Jatin Tracey MONO # 0.6 103/ul Normal 0.3-0.8 [facility] Comment on above: Performed By: #### C BC #### [facility] [address] [place] [address] Jtainandrez Vergaraen Monocytes/100 WBC (Bld) 6.0 % Normal 1.7-12.0 [facility] Comment on above: Performed By: #### C BC #### [facility] [address] [place], [place] [address] Jatin Webb NEUT # 7.3 103/ul Critically high 1.4-6.5 [facility] Comment on above: Performed By: #### C BC #### [facility] [address] [place], [place] [address] Jatin Webb Neutrophils/100 WBC (Bld) 68.9 % Normal 43.0-75.0 [facility] Comment on above: Performed By: #### C BC #### [facility] [address] [place], [place] [address] Jatin Webb Platelet mean volume (Bld) [Entitic vol] 9.7 fL Normal 9.5-13.5 [facility] Comment on above: Performed By: #### C BC #### [facility] [address] [place], [place] [address] Jatin Webb PLT 252 103/ul Normal 150-450 [facility] Comment on above: Performed By: #### C BC #### [facility] [address] [place], [place] [address] Jatin Webb RBC 4.71 106/ul Normal 4.20-5.40 [facility] Comment on above: Performed By: #### C BC #### [facility] [address] [place], [place] [address] Jatin Webb WBC 10.6 103/ul Normal 4.0-11.0 [facility] Comment on above: Performed By: #### C BC #### [facility] [address] [place], [place] [address] Jatin Webb CT ABD/PELV W CONon 12-13-19 CT ABD/PELV W CON EXAMINATION: CT ABD/PELV [...] by: Sabiha RUSHING Date: 2020-12-12 04:08 Normal [facility] PREG HCG QUALon 12-12-2020 , QUAL Negative Normal NEGATIVE [facility] Comment on above: Performed By: #### P REG #### [facility] [address] [place] [address] Jatin Webb PROF 14(COMP METB)on 021 Albumin [Mass/Vol] 3.9 g/dL Normal 3.5-5.0 [facility] Comment on above: Performed By: #### C MP #### [facility] [address] [place], [place] [address] Jatin Webb Albumin/Globulin [Mass ratio] 1.1 {ratio} Normal [facility] Comment on above: Performed By: #### C MP #### [facility] [address] [place], [place] [address] Jatin Tracey ALP [Catalytic activity/Vol] 93 U/L Normal 38-126 [facility] Comment on above: Performed By: #### C MP #### [facility] [address] [place], [place] [address] Jatin Tracey ALT [Catalytic activity/Vol] 16 U/L Normal 9-52 [facility] Comment on above: Performed By: #### C MP #### [facility] [address] [place], [place] [address] Jatin Webb Anion gap [Moles/Vol] 17.1 mmol/L Normal [facility] Comment on above: Performed By: #### C MP #### [facility] [address] [phone] Jatin Tracey AST [Catalytic activity/Vol] 3 U/L Critically low 14-36 [facility] Comment on above: Performed By: #### C MP #### [facility] [address] [address] Jatin Tracey Bilirubin [Mass/Vol] 0.3 mg/dL Normal 0.2-1.3 [facility] Comment on above: Performed By: #### C MP #### [facility] [address] [address] Jatin Tracey Calcium [Mass/Vol] 8.9 mg/dL Normal 8.4-10.2 [facility] Comment on above: Performed By: #### C MP #### [facility] [address] [address] Jatin Tracey Chloride [Moles/Vol] 106 mmol/L Normal 98-107 [facility] Comment on above: Performed By: #### C MP #### [facility] [address] [address] Jatin Tracey CO2 [Moles/Vol] 23.0 mmol/L Normal 22.0-30.0 [facility] Comment on above: Performed By: #### C MP #### [facility] [address] [address] Jatin Tracey Creatinine [Mass/Vol] 0.76 mg/dL Normal 0.52-1.04 [facility] Comment on above: Performed By: #### C MP #### [facility] [address] [address] Jatin Tracey EGFR-AF GREENLANDIC >60 Normal >=60 [facility] Comment on above: Performed By: #### C MP #### [facility] [address] [address] Jatin Tracey EGFR-NON AF GREENLANDIC >60 Normal >=60 [facility] Comment on above: Performed By: #### C MP #### [facility] [address] [address] Jatin Tracey Globulin (S) [Mass/Vol] 3.7 g/dL Normal T [facility] Comment on above: Performed By: #### C MP #### [facility] [address] [address] Jatin Tracey Glucose [Mass/Vol] 96 mg/dL Normal 74-106 [facility] Comment on above: Performed By: #### C MP #### [facility] [address] [address] Jatin Tracey Potassium [Moles/Vol] 4.1 mmol/L Normal 3.4-5.0 [facility] Comment on above: Performed By: #### C MP #### [facility] [address] [place] [address] Jatin Tracey Protein [Mass/Vol] 7.6 g/dL Normal 6.1-8.2 [facility] Comment on above: Performed By: #### C MP #### [facility] [address] [place] [address] Jatin Tracey Sodium [Moles/Vol] 142 mmol/L Normal 137-145 [facility] Comment on above: Performed By: #### C MP #### [facility] [address] [place] [address] Jatin Tracey Urea nitrogen [Mass/Vol] 14.0 mg/dL Normal 6.4-19.3 [facility] Comment on above: Performed By: #### C MP #### [facility] [address] [place] [address] Jatin Tracey Urea nitrogen/Creatinine [Mass ratio] 18.4 mg/mg Normal [facility] Comment on above: Performed By: #### C MP #### [facility] [address] [place], [place] [address] Jatin Tracey PROTIMEon 12-12-2020 INR Coag (PPP) [Relative time] 1.00 {INR} Normal [facility] Comment on above: Performed By: #### P TT, PT #### [facility] [address] [place], [place] [address] Jatin Tracey INR GUIDELINES SEE BELOW Normal [facility] Comment on above: Result Comment: MAHESH RED INR: 2.0 - 3.0 CONDITIONS NOT LISTED BELOW 2.5 - 3.5 FOR PROSTHETIC HEART VALVE REPLACEMENT 2.5 - 3.5 RECURRENT THROMBOSIS Performed By: #### P TT, PT #### [facility] [address] [place], [place] [address] Jatin Webb PT Coag (PPP) [Time] 10.8 s Normal 9.0-11.6 [facility] Comment on above: Performed By: #### P TT, PT #### [facility] [address] [place], [place] [address] Jatin Webb PTTon 12-12-2020 aPTT Coag (Bld) [Time] 26.2 s Normal 22.3-36.2 [facility] Comment on above: Performed By: #### P TT, PT #### [facility] [address] [place], [place] [address] Jatin Webb XR CHEST 1 Von 12-12-2020 XR CHEST 1 V EXAM: XR CHEST 1 V HISTORY: Chest pain left-sided rib pain COMPARISON: None. TECHNIQUE: Single frontal view chest x-ray FINDINGS: No lobar consolidation, large effusions, pneumothorax, or discrete acute bony abnormality. Cardiac size unremarkable. IMPRESSION: No radiographic evidence for acute chest abnormality. Electronically authenticated by: ODALIS BRICENO Date: 2020-12-12 03:25 Normal [facility] Vital Signs Date Time Vital Sign Value Performing Clinician Ralph llamas 02-07-2024 10:54-0400 Body mass index (BMI) [Ratio] 39.95 kg/m2 Yaritza CAMARILLO Work Phone: [facility] 02-07-2024 10:54-0400 Body weight 105.58 kg Yaritza CAMARILLO Work Phone: [facility] 02-07-2024 10:54-0400 Diastolic blood pressure 72 mm[Hg] Yaritza CAMARILLO Work Phone: [facility] 02-07-2024 10:54-0400 Systolic blood pressure 116 mm[Hg] Yaritza CAMARILLO Work Phone: [facility] Healthcare Encounters Encounter Date Encounter Type Care Provider Facility Start: 02-07-2024 End: 02-07-2024 Bamboo flowsheet Yaritza CAMARILLO Work Phone: [facility] Start: 02-07-2024 End: 02-07-2024 Bamboo flowsheet Yaritza CAMARILLO Work Phone: [facility] Start: 02-07-2024 End: 02-07-2024 ambulatory YARITZA PORTILLO Not Available Start: 02-07-2024 End: 02-07-2024 flow sheet Yaritza CAMARILLO Work Phone: [facility] Comment on above: Second trimester pre gnancy; 28 weeks gestation of ; Heartburn during in third trimester; Skin yeast infection; Excessive growth affecting management of , antepartum, single or unspecified fetus Start: 02-06-2024 End: 02-06-2024 Clinisync Result Encounter Generic External Data Provider [facility] Unsolicited Start: 02-06-2024 End: 02-06-2024 Clinisync Result Encounter Generic External Data Provider [facility] Unsolicited Start: 01-12-2024 End: 01-12-2024 ambulatory WALDO CONRADO Not Available Start: 12-14-2023 End: 12-14-2023 ambulatory YARITZA PORTILLO Not Available Start: 10-31-2023 End: 10-31-2023 ambulatory WALDO CONRADO Not Available Start: 10-06-2023 End: 10-06-2023 ambulatory WALDO R CONRADO Facility:[facility] Start: 09-29-2023 End: 09-29-2023 ambulatory SARAH NELSON Not Available Start: 08-02-2023 End: 08-02-2023 ambulatory SARAH A NELSON Not Available Start: 04-22-2023 End: 04-22-2023 ambulatory [facility] Facility:[facility] Start: 04-13-2023 End: 04-13-2023 ambulatory SARAH A NELSON Not Available Start: 01-10-2023 End: 01-10-2023 ambulatory [facility] Facility:[facility] Start: 12-11-2022 ambulatory [facility] Facility:[facility] Start: 11-29-2022 End: 11-29-2022 ambulatory [facility] Facility:[facility] Start: 11-17-2022 End: 11-17-2022 ambulatory WALDO Nish CONRADO Facility:[facility] Start: 10-18-2022 End: 10-18-2022 ambulatory [facility] Facility:[facility] Start: 12-12-2020 End: 12-12-[address] BRANDON LE Facility:[facility] Procedures Date Procedure Procedure Detail Performing Clinician Start: 02-07-2024 Urnls dip stick/tabl et rgnt non-auto w/o micrscp Yaritza CAMARILLO Work Phone: Start: 02-06-2024 GLUCOSE 1 HOUR Waldo schroeder DO Work Phone: Plan of Treatment Date Care Activity Detail Author Start: 02-23-2024 End: 02-23-2024 Patient encounter procedure 02/23/2024 1:30 PM EDT Routine [facility] [address] [place] [id number] Yaritza Portillo PA [address] [place], [facility] Start: 02-08-2024 End: 02-08-2024 Patient encounter procedure 02/08/2024 1:50 PM EDT Routine [facility] [address] [place] [address] Yaritza Portillo PA [address] [place], [facility] Start: 02-07-2024 End: 02-06-2025 US for US OB SCAN FOR GROWTH Imaging Routine Excessive growth affecting management of , antepartum, single or unspecified fetus Expected: 02/07/2024 (Approximate), Expires: 02/06/2025 [facility] Work Phone: Comment on above: Expected: 02/07/2024 (Approximate), Expires: 02/06/2025 Start: 12-25-2023 Influenza vaccination Influenza Vacc ine (#1) [facility] Immunizations Immunization Date Immunization Notes Care Provider Laverne christiannabil 03-01-2014 hepatitis A vaccine, pediatric/adolescent dosage, 2 dose schedule Generic Provider [facility] 07-26-2013 hepatitis A vaccine, pediatric/adolescent dosage, 2 dose schedule Generic Provider [facility] 07-26-2013 meningococcal polysa ccharide (groups A, C, Y and W-135) diphtheria toxoid conjugate vaccine (MCV4P) Generic Provider [facility] 07-26-2013 tetanus toxoid, redu mary beth diphtheria toxoid, and acellular pertussis vaccine, adsorbed Generic Provider [facility] 07-26-2013 varicella virus vaccine Generic [facility] ider [facility] 05-16-2012 influenza virus vacc ine, whole virus Generic Provider [facility] 05-16-2012 influenza virus vacc ine, unspecified formulation Generic Provider [facility] 02-12-2009 novel influenza-H1N1 -09, preservative-free, injectable Generic Provider [facility] 04-29-2008 influenza virus vacc ine, whole virus Generic Provider [facility] 03-29-2007 influenza, seasonal, injectable Generic Provider [facility] 09-15-2006 diphtheria, tetanus toxoids and acellular pertussis vaccine, 5 pertussis antigens Generic Provider [facility] 09-15-2006 haemophilus influenz ae type b vaccine, HbOC conjugate Generic Provider [facility] e 09-15-2006 measles, mumps and r ubella virus vaccine Generic Provider [facility] 09-15-2006 poliovirus vaccine, inactivated Generic Provider [facility] 07-30-2002 diphtheria, tetanus toxoids and acellular pertussis vaccine, unspecified formulation Generic Provider [facility] 07-30-2002 haemophilus influenz ae type b vaccine, conjugate unspecified formulation Generic Provider [facility] 07-30-2002 measles, mumps and r ubella virus vaccine Generic Provider [facility] 07-30-2002 varicella virus vaccine Generic [facility] ider [facility] 2001 diphtheria, tetanus toxoids and acellular pertussis vaccine, unspecified formulation Generic Provider [facility] 2001 haemophilus influenz ae type b vaccine, conjugate unspecified formulation Generic Provider [facility] 2001 hepatitis B vaccine, pediatric or pediatric/adolescent dosage Generic Provider [facility] are 2001 poliovirus vaccine, unspecified formulation Generic Provider [facility] 2001 diphtheria, tetanus toxoids and acellular pertussis vaccine, unspecified formulation Generic Provider [facility] 2001 haemophilus influenz ae type b vaccine, conjugate unspecified formulation Generic Provider [facility] 2001 pneumococcal conjuga te vaccine, 7 valent Generic Provider [facility] 2001 poliovirus vaccine, unspecified formulation Generic Provider [facility] 2001 diphtheria, tetanus toxoids and acellular pertussis vaccine, unspecified formulation Generic Provider [facility] 2001 haemophilus influenz ae type b vaccine, conjugate unspecified formulation Generic Provider [facility] 2001 hepatitis B vaccine, pediatric or pediatric/adolescent dosage Generic Provider [facility] 2001 poliovirus vaccine, unspecified formulation Generic Provider [facility] 2001 hepatitis B vaccine, pediatric or pediatric/adolescent dosage Generic Provider [facility] are Payers Date Payer Category Payer Unknown [id number] 2022 Unknown 2022 Medicaid (Managed Care) [employer] [id number] 2022 [facility] [id number] 2022 Unknown [id number] 2001 Unknown [id number] 2.16.840.1.876524.3.579.2. 593 2001 Unknown [id number] 2.16.840.1.889779.3.579.2. 718 2001 Unknown [id number] 2.16.840.1.483694.3.579.2. 718 2001 Unknown [id number] 2.16.840.1.455481.3.579.2. 718 2001 Unknown [id number] 2.16.840.1.061753.3.579.2. 8 2001 Unknown [id number] 2.16.840.1.455226.3.579.2. 718 2001 Unknown [id number] 2.16.840.1.387311.3.579.2. 9 2001 Unknown [id number] 2.16.840.1.148141.3.579.2. 9 2001 Unknown [id number] 2.16.840.1.963201.3.579.2. 9 2001 Unknown [id number] 2.16.840.1.405359.3.579.2. 9 2001 Unknown [id number] 2.16.840.1.894853.3.579.2. 1258 2001 Unknown [id number] 2.16.840.1.170667.3.579.2. 9 2001 Unknown [id number] 2.16.840.1.988925.3.579.2. 9 1959 Unknown [id number] 1959 Unknown [id number] Social History Date Type Detail Facility Start: 04-13-2023 Tobacco smoking status NHIS Ex-smoke r [facility] History of tobacco use Current smoker [facility] History of tobacco use Cigarette Smoker [facility] Start: 04-13-2023 Tobacco use and exposure User of smokeless tobacco [facility] Start: 01-12-2024 End: 02-07-2024 Alcoholic beverage intake Current drinker of alcohol (finding) [facility] Start: 08-30-2022 End: 08-02-2023 History of Social function [facility] Start: 08-30-2022 End: 08-02-2023 Alcohol Use Disorder Identification Test - Consumption [AUDIT-C] [facility] How often to you hav e a drink containing alcohol? Monthly or less [facility] How many standard dr inks containing alcohol do you have on a typical day? 1 or 2 [facility] How often do you hav e 6 or more drinks on 1 occasion? Never [facility] Start: 03-04-2023 Tobacco Comment Vapes nicotine daily [facility] Start: 08-02-2023 Alcohol Comment Alcohol: 1 or 2 drinks on a typical day/monthly or less Caffeine: 1 cup daily [facility] Start: 08-07-2023 [facility] Start: 2001 Sex assigned at Not [facility] file [facility] [facility] History of Present illness Narrative 02-07-2024 MARQUISE Scott - 02/07/2024 10:10 AM EDT Note Date & Type Note Facility 02-07-2024 History of Presen t illness Narrative Reason for Appointment: Patient ID: Brynn Wallace is a 23 y.o. female who presents for Routine Visit Patient presents today for Return OB appointment. MEDICATIONS Current Outpatient Medications Medication Instructions ondansetron ODT (ZOFRAN-ODT) 4 mg, Oral, Every 4 hours PRN ALLERGIES Allergies Allergen Reactions Buspirone Other Reaction(s): Increased anxiety/hallucinations Cholestatin Other Reaction(s): Unknown Lurasidone Other Reaction(s): restlessness Latuda Other Unknown PROBLEMS Active Ambulatory Problems Diagnosis Date Noted Attention deficit hyperactivity disorder (ADHD) ([facility]) 08/30/2022 Bipolar II disorder ([facility]) 08/30/2022 Acute non intractable tension-type headache 12/11/2019 Adjustment disorder with depressed mood ([facility]) 12/11/2019 Allergic rhinitis 11/23/2018 Amenorrhea 02/23/2021 Anxiety 03/23/2016 Attention deficit 03/04/2023 Chronic fatigue 03/04/2023 Chronic gastritis without bleeding 03/04/2023 Dysfunction of both eustachian tubes 12/07/2018 Dyspareunia due to medical condition in female 03/04/2023 Gastritis and duodenitis 06/03/2015 Grieving ([facility]) 03/04/2023 Infertility, female 03/04/2023 Menstrual cramps 07/04/2017 Pelvic congestion syndrome 03/04/2023 Slow transit constipation 04/11/2017 Vitamin D deficiency 03/13/2019 Migraine with aura and with status migrainosus, not intractable ([facility]) 05/27/2020 Mixed anxiety and depressive disorder 12/25/2019 Irregular periods 08/02/2023 Resolved Ambulatory Problems Diagnosis Date Noted No Resolved Ambulatory Problems Past Medical History: Diagnosis Date Acne Acute dysfunction of Eustachian tube, bilateral Ear pain, referred, bilateral Endometriosis Ovarian cyst PCOS (polycystic ovarian syndrome) HISTORY PAST MEDICAL HISTORY SOCIAL HISTORY Past Medical History: Diagnosis Date Acne Acute dysfunction of Eustachian tube, bilateral Adjustment disorder with depressed mood ([facility]) 12/11/2019 Allergic rhinitis unspecified seasonality, unspecified trigger Anxiety Ear pain, referred, bilateral Endometriosis Ovarian cyst PCOS (polycystic ovarian syndrome) Social History Tobacco Use Smoking status: Former Types: Cigarettes Smokeless tobacco: Current Tobacco comments: Vapes nicotine daily Vaping Use Vaping status: Every Day Substances: Nicotine, Flavoring Devices: Disposable Substance Use Topics Alcohol use: Yes Comment: Alcohol: 1 or 2 drinks on a typical day/monthly or less Caffeine: 1 cup daily Drug use: Not Currently Types: Marijuana FAMILY HISTORY Family History Problem Relation Name Age of Onset Myasthenia gravis Mother Other (brain shrinking) Mother Diabetes Maternal Grandmother Mental illness Maternal Grandmother Mental illness Mother's Sister SURGICAL HISTORY Past Surgical History: Procedure Laterality Date WISDOM TOOTH EXTRACTION 05/2016 teeth REVIEW OF SYSTEMS Review of Systems: Review of Systems Constitutional: Negative. HENT: Negative. Eyes: Negative. Respiratory: Negative. Cardiovascular: Negative. Gastrointestinal: Negative. Genitourinary: Negative. Musculoskeletal: Negative. Skin: Positive for rash. Neurological: Negative. All other systems reviewed and are negative. Hematological: Negative. Endocrine: Negative. Allergic/Immunologic: Negative. OBJECTIVE Objective: Physical Exam Constitutional: Appearance: Normal appearance. She is well-developed. Cardiovascular: Rate and Rhythm: Normal rate and regular rhythm. Pulmonary: Effort: Pulmonary effort is normal. Breath sounds: Normal breath sounds. Abdominal: General: Bowel sounds are normal. There is no distension. Palpations: Abdomen is soft. Tenderness: There is no abdominal tenderness. There is no guarding or rebound. Musculoskeletal: General: No swelling. Normal range of motion. Right lower leg: No edema. Left lower leg: No edema. Neurological: Mental Status: She is alert and oriented to person, place, and time. Skin: General: Skin is warm and dry. Psychiatric: Mood and Affect: Mood normal. Behavior: Behavior normal. Vitals and nursing note reviewed. Exam conducted with a air boatswain present. Vitals: Estimated body mass index is 39.95 kg/m as calculated from the following: Height as of 08/02/23: 5' 4 . Weight as of this encounter: 232 lb 12 oz. BP: 116/72 No LMP recorded. Patient is . ASSESSMENT & PLAN ICD-10-CM 1. Second trimester Z34.92 POCT urinalysis dipstick manually resulted 2. 28 weeks gestation of Z3A.28 POCT urinalysis dipstick manually resulted Return OB: Patient presents today for a routine obstetrics appointment. Patient is currently 28w2d . Patient states she is doing well but has complaints of being tired due to current . Patient has verbalizes frequent movement. labor precautions was discussed/given and patient was instructed to perform kick counts three times a day. Pt has complaints of heartburn and rash between breast rx for reglan and diflucan faxed to pharmacy. Pt to start taking omeprazole daily and pt given growth ultrasound to have obtained. Discussed 3 hour vs finger stick blood sugar. Orders Placed This Encounter Procedures POCT urinalysis dipstick manually resulted Follow Up: Patient is to return to office in 2 week for routine OB appointment. Documented by DILLON Negron on behalf of: MARQUISE Scott documented in this encounter [facility] Note 01-10-2023 Note Date & Type Note [...] these instructions at home: Medicines ? Take orrs-iha-txhgmnt and prescription medicines only as told by [...] and water are not available, use hand sow manager. Contact a health care provider if: ? [...] can cause a sore throat. ? Take iwyw-wpp-tpiqgsh medicines only as told by your health [...] provider. Document Revised: 07/08/2021 Document Reviewed: 07/08/2021 [employer] Patient Education ? 2022 [employer] Viral Illness, Adult Viruses are tiny [...] person who is (more content not included)... [facility] Evaluation note Note Date & Type Note Facility Evaluation note Diagnosis Second trimester state, incidental 28 weeks gestation of Heartburn during in third trimester Skin yeast infection Candidiasis of skin and nails Excessive growth affecting management of , antepartum, single or unspecified fetus documented in this encounter [facility] Summary Purpose Family History No Family History Records FoundNo Family History Records FoundNo Family History Records FoundNo Family History Records Found Advance Directives No Advanced Directives Records FoundNo Advanced Directives Records FoundNo Advanced Directives Records FoundNo Advanced Directives Records Found Additional Source Comments INFORMATION SOURCE (unrecogn ized section and content) DATE CREATED AUTHOR 12/15/2020 [facility] DATE CREATED AUTHOR AUTHOR'S ORGANIZ ATION 06/23/2022 [facility] DATE CREATED AUTHOR AUTHOR'S ORGANIZ ATION 10/13/2023 [facility] DATE CREATED AUTHOR AUTHOR'S ORGANIZ ATION 02/09/2024 [facility] Care Teams (unrecognized sec tion and content) Surety Bond Agent Relationship Specialty Start Date End Date Jeannie Reynolds MD [address] [place] [address] PCP - General Family Medicine 09/21/22 Sarah Nelson NP [address] [place] [address] Nurse Practitioner Family Medicine 09/21/22 Surety Bond Agent Relationship Specialty Start Date End Date Jeannie Reynolds MD [address] [place] [address] PCP - General Family Medicine 09/21/22 Sarah Nelson NP [address] [facility] [place], [place] [id number] Nurse Practitioner Family Medicine 09/21/22 Surety Bond Agent Relationship Specialty Start Date End Date Jeannie Reynolds MD [address] [place], [place] [id number] PCP - General Family Medicine 09/21/22 Sarah Nelson NP [address] [place], [place] [phone] Nurse Practitioner Family Medicine 09/21/22 Reason for Visit (unrecogniz ed section and content) Reason Comments Routine Visit FOR RECORDS PERTAINING TO PATIENTS WHO ARE [...] BE BASED ON THE PRIMARY CLINICAL RECORDS. [employer] provides no warranty or guarantee of the accuracy or completeness of information in this document.
--- NOTE | 2024-02-23 19:06 | US_ITS ---
[address] [address] Patient Name: BRYNN WALLACE MRN: [id number] date: 2000 Sex: F Assigned Patient Location: US Current Patient Location: Accession/Order Number: [id number] Exam Date: 02/23/2024 19:12 Report Date: 02/24/2024 08:02 At the request of: WALDO CAMP Procedure: US OB growth EXAMINATION: US OB growth HISTORY: EXCESSIVE GROWTH AFFECTING O36.60X0 COMPARISON: No relevant comparison available. FINDINGS: Heart Rate: 134.33 bpm Amniotic Fluid Volume: 16.1 cm, largest fluid pocket 7.6 cm Number: 1 Position: CEPHALIC BIOMETRY: BPD: 7.83 cm; 31 weeks 3 days; 65.80 % HC: 28.40 cm; 31 weeks 1 day; 29.80 % AC: 27.53 cm; 31 weeks 4 days; 75.70 % FL: 5.67 cm; 29 weeks 5 days; 16.30 % EFW: 1675.87 g; 51.50 %, 3 lbs. 11 oz. FL/AC: 20.60 FL/BPD: 72.40 HC/AC: 1.03 GESTATIONAL AGE: Age by EDC: 30 weeks 4 days JAYE by EDC: 2024[birth year]04-29 Age by US: 31 weeks 0 days JAYE by US: 2024-04-26 US/US OB growth IMPRESSION: Normal interval growth Electronically authenticated by: HAYLIE ASCENCIO Date: 02/24/2024 08:02
== END 2024-02-23 19:03 | disposition home or self-care (01) ==
LOC: US 19:02
PROVIDERS: PCP Family Medicine; Visit Provider Obstetrics & Gynecology
DX: O36.63X0 Maternal care for excessive fetal growth, third trimester, not applicable or unspecified (principal); Z3A.30 30 weeks gestation of pregnancy
CPT/HCPCS: 76816

== ENCOUNTER 2024-03-15 14:10 | Observation (INO) | payer BC, OTHER, SELFPAY ==
[2024-03-15 14:28] VITALS: BP 131/73; PULSE 113
--- OUTSIDE RECORDS SUMMARY | 2024-03-15 14:29 | XMS_ITS | CCD ---
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 DD3L4HvpnA7AQJlvBNa FlaqeDLYmA8pvlfjo2p acirsGtLhHIYlJJh6QE a4IFSpdUrpHvMfBK27B JL4IJCpiqLqK9HiNNLp pWwfZoO7f1W1Iu6BQ0N LTimsR6EHQUDDZUigeS Q+DL51uy92I3DySwfaL pn8IOFiDUN5zMT6kJ7g BERwYZvjc3O0fWH1Q3U mgnAeam6jh6hvXYRiTK rzW15xbEQfx4I2POJhc OZ7QQWclOhyXaLobB49 Oyc+PMOmzWute9KsQpu hs5zxh0nwqYk4IbohRJ MoxjYvaDzhTXS7y1BnP w0xMEFnzAY2sPI1gW5h JfVqUjI0DTheS386OwU bzOGcCzmsJ70pD3KwnO A+NUJfIma2LZScjSrmG V7wB1UgVRKbzxqwjDHn wYvfKX7vLUMkcudwRZY yoD8lFQHkP5x0FnPcKo M0TArxC6FiZJDwqxfyT s83mK6xJgGzMkH3QRqs A5GslhC4TENglFGpKHv gXLL3X07uu0U0EPPwEI RdSZJ1fPJ7eE7dhQbdh jogbGVmdDsgdmVydGlj WFckWAofC769DRUatKv nPkNvZGluZyBEYXRlOi AgMDMvMTEvMjAyNDwvd GQ+UYZrONO2xXlcQACk zOAnFUgoRr9gdWoemUd dPX3fOXYlyxgfEYIoeY 4sXFFnnADfjQuwFR6bM YIhqffse062XwOxCVI0 ROZvlHWdO0QczY0zPaM rJOTuYQIhE0CzoVXjBZ qwM852WRknXlI3NZNsm dWpQ5GmLPFkqRiaWbG8 i8L8Qs3De6IznqdoB2H ogCEjPwWiZnqiBSb4G1 RkPjwvdHI+FH14OQIlB G86KRf1ZBX9sBbrSUpb KGHfA0YgfQ0vPcOwHLY kZGRkOyc+PHRhYmxlIH dpZHRoPScxMDAlJyBzd QpmIY8sHm6jJLJfKREg sNcvyTYxTbEaj6mkBBC tYYtxZX1spGeuH1IbcO K7KOWts9f9Km92E70rX 3JvdXA+ESOlrUX0oTL5 uY0fGzRiGtE0WRofJ14 6UcUteZGqWcyxu0hwj4 kytIe8UkA3IOUwhzCfs XvqUJL3k8GfBk50L59z IHdpZHRoPSIxNSUiIHZ ktEnyte0aoN7kBm3+PG ImwIZ9pJF4tG0kAjRwP gX1BYfeR861MhLrwTYi Ndmib0pvl1wycDv0ZrK vPTTmoqUhaUhqFMZ0g5 KwOi28T5JzvNfli0EcU hp9lq17sBSuh4N3aFO0 N4ErSMSafcvkuOCkjIc eQG5oQIZzfavmUNOqnH 2rAANrH1c3GvKaXdW7C QaqW7OseoW4IZOorOZl WLNxrKGWnP1knumgr5z cmxexVaEdDJAiUGo7AA o4ZYZveKlxIkXoWBK2F vB6SKE2pKDvgX0jtNtd wouptD8iRlo+VYD0pEE dcAMXLA3yOuoxwGU+PH HdMWM8jEuaPJjqVJOmi Q4kNDLfM6q4DaEiQlO5 MHvvI4KhcxV8FQGoyKM dDEIqcMVDcK4xfwrlw3 hctbbqFgLaDAIxSTs0E Jb6IAOtcKjbVuCkNBQ7 CyI1BDR2rPMxhM7aoBi aczgtsI7tLvj+QmlydG slEKF6FHw0C5EqQde6C IRguJldRX4asJGaPFqh Kb8imHmvmSflDS6gWHL ixaskn325SaKcc8dhRQ BsjKLlDNptVYQ5L46cr 8L0IGSoMDIzNEO5aHJ6 lS2dqZvsvhkfyZUouKu gdmVydGljYWwtYWxpZ2 92YEUexGkwJzOzVJf0K 5HlDcq3VCYnaLwhQM9s wVJiYWhtJc9bxTruwVp qWN5bDMVtzyokw396Ru Jrl1mfBSNmkGLzQDivH OK6W04ca7U4ZFAoOVKf HKE6lXZ3yR0gtWvzjrw gbGVmdDsgdmVydGljYW grFEsyB578ERZynDwjQ rTiuDo9M6HmUmy2AXSz eGdbUE6xpHLgYAuxIg3 ojMhlpVadMQ4gPRXdjc cpp823VsVel7ivPURxy ULrCYqtTQJ4Q14xh1E4 KLKwXDKzBIJ1sPN5fA9 hbGlnbjogbGVmdDsgdm WkhJagNWegECyfD372K HRvcDsnPlBhdGllbnQg FWnqXIt6T6EaIzsqtBO +YB84PQHlJF80mAZwmX Zbu0pbkVb9BnMdUKAzY JP6yHjmBLvhv5OpOIFz N00pkMMgh2F3XBCsfKu nyLXdVfGdzTO5uT9eUI ftgdhfl5wavsivIaaqd 4fkla32wD98J11aSOvr ZHRoPSIzMCUiIHZhbGl oub9keY9cBt0+PGNvbC F4uQG3hF2iAKFzWvW6J HxuL672VoCojJBmWkbp z2kpa9bufLu3VxF4ZHX cwgFriVzwCOY1m3ZuWo 92B26lKAcnZEEfIRRqH UEsXFYikQwwyc7wjO8d Ii8+YMPufVG1jBN7cE0 dGfXpPjU9XJisZ981Pg XcnXRaKjomV76pU5Rak XA+HJNnQku9JKXceYuq RX5hbBNwVOjvMv6bGKI 3HzPjHfVgJIvrA0DqYL MyfkodsinttEX1VTGzB CNlfB57Hv0jdNttAJXu fUIHgF0bqprww8knsoh aRbKwLLMlGQl9MNl6AO LatEvtXhFyMQI8AaA3H NU5aNQlvF9uvKfnogzt lU5uH8MmKCQzztqlPq7 1lN6xLlNgMlF2UBgqFi c+QkFLRVIsIEFMRVhBT kRSQSBNSUNIRUxMRTwv dGQ+PJPrWMN0gYbwQEz hSGSwiB6fBMJfL9x8Ck UhLfX8WKbzC4YdKDAzl mfbOg23aW8wTmTiCrX8 NAlwX8QzygM4GAXguGL bNHxdGGU2F01qz4P7CV TlSNMnIWA2qEL9dG1gu GlnbjogbGVmdDsgdmVy iFxnFMvdZUckM393AGR svRnrFqYsWiL1GnImNV O2G8VmXgw0CZTlbEwiW E7chUDnTRmkOh8laNof rJwmGG1kCWOtgufsVYJ maN3hBGDljUXqiHxjQL 9kHEPbvlgge807NfWcF CB2XKSrqAXlP2PhqK6o UqTpLCUtRSQiZ2DufRM iYRblC670MEfmItL6KA ZowlHiY6DyHUUbmMynK gG0i0Y8It8iUhSUFPOs czwvdGQ+CBAaVAI3jYz tOLppUCBmuN4cNDEmJ2 t5FjCeHsA1FExmD1ZyC PVtlsncSo09mI6yPaJe ShX3KCmtL8TmrsW1PSS ryDMcTTvcUGV8O36xt4 G9WGFpRMLnYNO9xDZ8z C3pbYikvdphdONjlHgt unBjmRiqVQnvWOkpV68 6IHRvcDsnPkZFTUFMRT wvdGQ+YDRdNYZ9xAwbT NmzPZPihB7aUZLoB7z0 LkDlBwT0CAtdC4RoVCH xqtlnFi04bQ8yAiObGw U0FBmqN2TfejL5MUSsl GJvCLhhPWG3A65va4Z8 JAIdIOGlKSA9uUM7uB8 hbGlnbjogbGVmdDsgdm FncPnmNUmjKTblM796Q PLujTbcMxIkV6Axwwsa ZjQTyUSeDGEsIR55UK5 2OM82D4WkKwkfcTDchA U+PHRhYmxlIHdpZHRoP FenUINoShBwfEitQD7s Dr1oZZRoZAYpcLfsoJW hSyGmw4mvIMMjREzcHT 9rfMslF2EbxME9ERVmz 2u6Rn95V97xB7EtkVE+ TJGpsZT8kFK5qL1cFjH sJcT5FOkdK496LbQdmI DkFuyiu9uno6kawDh6Y jMwJSIgdmFsaWduPSJ0 z6VeMw77H45nFLroLOC oPSIyMCUiIHZhbGlnbj 5vzU4vSl3+RBAapTM3m QT9eN3kYmZyAmW7VIpj Q595FbOdcZWpAzbdZ19 sG6HfbBJ+GSOhNbf0PD GycQxqMS9vqQKmQInqY s7sYUV8MuGcIvDiPAcx T3ZcEGAizawdfihdkXH 3YRJnTASiaY30Wt4cuH xsZm7iODDqIBT3JOPrq NXzE2TvoM5cRdJkMBLh SBNeN4JtbVLeMBupF74 6LTfpLnA3MBInauEdN5 ZzJBMueQbpZxT6j9C0I u9TdBycvRJfRN9zPrAx WJa7E1ShNoc5OXZbhYs gEB6twPGdTKxnHf5blR ssrFieLD1gIQJzyjahk 563DmEqq8ygFGZwsXHm WGadVUI0Q75kx0B4CEE cGWWwINR3lRZ6vW2lcY lnbjogbGVmdDsgdmVyd RucYJukDItoU718XCDx pYtuFaLFEpx1S8ZbMut 5VKXkyDuaAU4cfGMmYS liBa0iuAdagOoyJT7eY GBkmjarf873TqWol0uf SVXeeWHiVDoqOUF3X64 by5C1JEIkZBZiDMZ9gD X3qV7gvBoagnrfmFCyk DsgdmVydGljYWwtYWxp B318YBVjzLpgEa8XHbm 1V1XiYuc9WECceUhcSN 7laCSrKMriHp7aeLbkj KjwLQ3vNEAvqoghx036 FaZgg0lsZQGhzDTzYUy tNAA0V60lk5V5EXEaAM UtBMV8vKK5wZ3enUnfv jogbGVmdDsgdmVydGlj ERyoPEodK542PGFihRe nPlBheWVyOjwvdGQ+PC 52rn73V9SzGrdiAjr1R XPgIZG4jFI6yM6nUAUx JSc (more content not included)... Normal [facility] .Auto Diff 04-22-2023 Auto Sandoval % 6 % Normal 05-06 [facility] Comment on above: Performed By: #### 3 [id number] #### [facility] (DEFAULT) [address] [place] [address] Baso Abs# 0.1 x10 Normal 0.0-0.2 [facility] Comment on above: Performed By: #### 3 [id number] #### [facility] (DEFAULT) [address] [place] [address] Basophils/100 WBC (Bld) 0.8 % Normal 0.2-2.0 [facility] Comment on above: Performed By: #### 3 [id number] #### [facility] (DEFAULT) [address] [place] [address] 00397 Eos Abs# 0.1 x10 Normal 0.0-0.4 [facility] Comment on above: Performed By: #### 3 [id number] #### [facility] (DEFAULT) [address] [place] [address] 42955 Eosinophils/100 WBC (Bld) 1.8 % Normal 0.9-4.0 [facility] Comment on above: Performed By: #### 3 [id number] #### [facility] (DEFAULT) [address] [place] [address] Lymph Abs# 2.1 x10 Normal 1.3-2.9 [facility] Comment on above: Performed By: #### 3 [id number] #### [facility] (DEFAULT) [address] [place] [address] Lymphocytes/100 WBC (Bld) 26 % Normal 14-48 [facility] Comment on above: Performed By: #### 3 [id number] #### [facility] (DEFAULT) [address] [place] [address] Sandoval Abs# 0.5 x10 Normal 0.0-0.8 [facility] Comment on above: Performed By: #### 3 [id number] #### [facility] (DEFAULT) [address] [place] [address] Neut Abs# 5.2 x10 Normal 1.5-9.2 [facility] Comment on above: Performed By: #### 3 [id number] #### [facility] (DEFAULT) [address] [place] [address] 24358 Neutrophils/100 WBC (Bld) 65 % Normal 44-88 [facility] Comment on above: Performed By: #### 3 [id number] #### [facility] (DEFAULT) [address] [place] [address] 98163 CBC w/ Auto Diffon 3 Man Diff? Auto Invalid Interpretation Code [facility] Comment on above: Performed By: #### 3 [id number] #### [facility] (DEFAULT) [address] [place] [address] Erythrocyte distribution width (RBC) [Ratio] 13.1 % Normal 11.5-15.0 [facility] Comment on above: Performed By: #### 3 [id number] #### [facility] (DEFAULT) [address] [place] [address] 52790 Hematocrit (Bld) [Volume fraction] 40.7 % High 33.7-40.4 [facility] Comment on above: Performed By: #### 3 [id number] #### [facility] (DEFAULT) [address] [place] [address] 19930 Hemoglobin (Bld) [Mass/Vol] 14.0 g/dL Normal 11.3-15.9 [facility] Comment on above: Performed By: #### 3 [id number] #### [facility] (DEFAULT) [address] [place] [address] 96773 MCH (RBC) [Entitic mass] 29 pg Normal 24-34 [facility] Comment on above: Performed By: #### 3 [id number] #### [facility] (DEFAULT) [address] [place] [address] 38958 MCHC (RBC) [Mass/Vol] 34 g/dL Normal 26-37 [facility] Comment on above: Performed By: #### 3 [id number] #### [facility] (DEFAULT) [address] [place] [address] 22703 MCV (RBC) [Entitic vol] 85 fL Normal 81-100 [facility] Comment on above: Performed By: #### 3 [id number] #### [facility] (DEFAULT) [address] [place] [address] 95326 Platelet 275 x10 Normal 138-427 [facility] Comment on above: Performed By: #### 3 [id number] #### [facility] (DEFAULT) [address] [place] [address] 74505 Platelet mean volume (Bld) [Entitic vol] 7.7 fL Normal 6.3-10.2 [facility] Comment on above: Performed By: #### 3 [id number] #### [facility] (DEFAULT) [address] [place] [address] 37405 RBC 4.79 x10 Normal 3.70-5.30 [facility] Comment on above: Performed By: #### 3 [id number] #### [facility] (DEFAULT) [address] [place] [address] 90566 WBC 7.9 x10 Normal 3.5-10.5 [facility] Comment on above: Performed By: #### 3 [id number] #### [facility] (DEFAULT) [address] [place] [address] 20088 CMP Standardon 04-22-2023 eGFR Non AA >60 Invalid Interpretation Code [facility] Comment on above: Performed By: #### 3 [id number] #### [facility] (DEFAULT) [address] [place] [address] 08963 eGFR AA >60 Invalid Interpretation Code [facility] Comment on above: Performed By: #### 3 [id number] #### [facility] (DEFAULT) [address] [place] [address] 32822 Albumin [Mass/Vol] 4.0 g/dL Normal 3.5-5.0 [facility] Comment on above: Performed By: #### 3 [id number] #### [facility] (DEFAULT) [address] [place] [address] 90238 Albumin/Globulin [Mass ratio] 1.2 {ratio} Low 1.4-2.6 [facility] Comment on above: Performed By: #### 3 [id number] #### [facility] (DEFAULT) [address] [place] [address] 12425 Alk Phos 68 IU/L Normal 32-91 [facility] Comment on above: Performed By: #### 3 [id number] #### [facility] (DEFAULT) [address] [place] [address] 72318 ALT [Catalytic activity/Vol] 14.0 U/L Normal 14.0-54.0 [facility] Comment on above: Performed By: #### 3 [id number] #### [facility] (DEFAULT) [address] [place] [address] 38081 Anion gap [Moles/Vol] 10.9 mmol/L Normal 5.0-19.0 [facility] Comment on above: Performed By: #### 3 [id number] #### [facility] (DEFAULT) [address] [place] [address] 95228 AST [Catalytic activity/Vol] 18 U/L Normal 15-41 [facility] Comment on above: Performed By: #### 3 [id number] #### [facility] (DEFAULT) [address] [place] [address] 95547 Bili Total 0.6 mg/dL Normal 0.3-1.2 [facility] Comment on above: Performed By: #### 3 [id number] #### [facility] (DEFAULT) [address] [place] [address] 39702 Calcium [Mass/Vol] 8.8 mg/dL Low 8.9-10.3 [facility] Comment on above: Performed By: #### 3 [id number] #### [facility] (DEFAULT) [address] [place] [address] 04390 Chloride [Moles/Vol] 107 mmol/L Normal 101-111 [facility] Comment on above: Performed By: #### 3 [id number] #### [facility] (DEFAULT) [address] [place] [address] 27716 CO2 [Moles/Vol] 23 mmol/L Normal 21-32 [facility] Comment on above: Performed By: #### 3 [id number] #### [facility] (DEFAULT) [address] [place] [address] 58220 Creatinine [Mass/Vol] 0.68 mg/dL Normal 0.60-1.30 [facility] Comment on above: Performed By: #### 3 [id number] #### [facility] (DEFAULT) [address] [place] [address] 54772 Globulin (S) [Mass/Vol] 3.3 g/dL Normal 1.5-4.3 [facility] Comment on above: Performed By: #### 3 [id number] #### [facility] (DEFAULT) [address] [place] [address] 86313 Glucose [Mass/Vol] 103.0 mg/dL Normal 74.0-118.0 [facility] Comment on above: Performed By: #### 3 [id number] #### [facility] (DEFAULT) [address] [place] [address] 91755 Osmolality 274 mOsm/L Invalid Interpretation Code [facility] Comment on above: Performed By: #### 3 [id number] #### [facility] (DEFAULT) [address] [place] [address] 35109 Potassium [Moles/Vol] 3.9 mmol/L Normal 3.6-5.1 [facility] Comment on above: Performed By: #### 3 [id number] #### [facility] (DEFAULT) [address] [place] [address] 67817 Protein [Mass/Vol] 7.3 g/dL Normal 6.5-8.1 [facility] Comment on above: Performed By: #### 3 [id number] #### [facility] (DEFAULT) [address] [place] [address] 20395 Sodium [Moles/Vol] 137.0 mmol/L Normal 136.0-144.0 [facility] Comment on above: Performed By: #### 3 [id number] #### [facility] (DEFAULT) [address] [place] [address] [id number] Urea nitrogen [Mass/Vol] 12 mg/dL Normal 8-26 [facility] Comment on above: Performed By: #### [id number] #### [facility] (DEFAULT) [address] [place] [address] 23527 Urea nitrogen/Creatinine [Mass ratio] 17.6 mg/mg High 4.6-16.2 [facility] Comment on above: Performed By: #### [id number] #### [facility] (DEFAULT) [address] [place] [address] [id number] Lipid Panel Standardon 04-22 Cholesterol [Mass/Vol] 158.0 mg/dL Normal 66.0-200.0 [facility] Comment on above: Performed By: #### [id number] #### [facility] (DEFAULT) [address] [place] [address] [id number] Cholesterol in HDL [Mass/Vol] 51 mg/dL Normal 40-71 [facility] Comment on above: Performed By: #### [id number] #### [facility] (DEFAULT) [address] [place] [address] 40197 Cholesterol in LDL [Mass/Vol] 98 mg/dL Normal 1-100 [facility] Comment on above: Performed By: #### [id number] #### [facility] (DEFAULT) [address] [place] [address] 82565 Cholesterol.total/Cholest amanda in HDL [Mass ratio] 3.0 {ratio} Normal 0.0-4.5 [facility] Comment on above: Performed By: #### [id number] #### [facility] (DEFAULT) [address] [place] [address] 96291 Triglyceride [Mass/Vol] 43.0 mg/dL Normal 0.0-150.0 [facility] Comment on above: Performed By: #### [id number] #### [facility] (DEFAULT) [address] [place] [address] 70346 VLDL. 9 mg/dL Normal 5-40 [facility] Comment on above: Performed By: #### [id number] #### [facility] (DEFAULT) [address] [place] [address] [phone] Progesterone LCon 02-11-2023 Progesterone LC 0.7 ng/mL Invalid Interpretation Code [facility] Comment on above: Result Comment: Foll icular phase 0.1 - 0.9 Luteal phase 1.8 - 23.9 Ovulation phase 0.1 - 12.0 First trimester 11.0 - 44.3 Second trimester 25.4 - 83.3 Third trimester 58.7 - 214.0 Postmenopausal 0.0 - 0.1 Performed At: [id number] [id number] Bibi Irwin PhD Ph:[phone] Performed By: #### [id number] #### [facility] (DEFAULT) [address] [place] [address] [phone] Coding Summaryon 01-17-2023 Coding Summary HTMLBase 64 BgjvgrnjVKd7cNt+PGh lYWQ+GD2ZREOuD21spU EspQ0fN2JBFAmZUwujY RBEXOrUAkJyuiCwMA7x aXNjZXJu IC8+VH3jLEWdOvmjnDB jy0N1uCK4D92pam9mON yhhUC9LLXpDyYubpauy 3olrEg0JGnsJgkvXsDb XHEemG36LYR0kJ22Mv6 1mHUsqOFlh5lgaGa9Yj VhFUSrCSQ3uDkiZIqzz 8HxGIKlN65bzMPfl3A8 IGNvbGxhcHNlOyBlbXB 5lV5eJFtzplxaz6gdzq sdEse1vc36qAZsq8W0s XJ6B9XbzuD9UPYekGIj ZdnwpWPKyN0wulwpq7p olegzLsOzKJZjZNf5EB z8XLWzuTqtPiSoCO77H WB4WPWgjoGeI9JxRHPx sRcpDxZ5m3I3Zd5YN1S TQdtaL1FCNQTXMQwkdB Q+YW61pl05M7UzMhszG gz2BFLdITS1vYX7yU4m KUQhXTpon9Y3oZC5J6Z dkfFwqt3qn5rxLHXtUL svH31tjZBht6Y7YNGsd MQ2GVRywJsoDpXprE07 Oyc+FNAnrTsfs0YzRkq tc6vsr8sltGr2YwwdYN UwsfKraRvqVLL9c7HgG y5hPKGfkVI9zFQ6qV7z GvSuNnP7GIkeN865ThD oxVPrOviwU63hM0NpdI A+RKJyOtk1ODAtcHbhF D3yV9BoQSZeyqkfaOVh bFljSS4yRDVxrsqbWNC amN2jQXDrN5l1LnVwKt E5GWhcQ2RsDPEveaxpC z23qO0gEfPkXgQ8UZij O2DjnrC1QZAddMFtLVz jUPR5Z36rp0L3SAQcAN KjRIU7jNQ4hO2paXvpi jogbGVmdDsgdmVydGlj IExcMAmsN250XEEbdVy nPkNvZGluZyBEYXRlOi AgMDkvMjUvMjAyMzwvd GQ+KHEfUBE2uMueSDTx hYViTItnOe9abChprSi iWT2aSTRutejjSUSawZ 5bRWJcfKGvuQkwOI7tY REhczetx042MsCqZTA7 KPZtaSSdM8ZpoD2fElU wJSRzIWMeI1UxoYZiSA orV707KLmkLjQ2YIMcm pEvE2HoXGAgaGmaYhV7 z0R1Xs3Ks8OlsgncH5K nkXVoPmZmJkxzNJx5J1 RkPjwvdHI+AE99LSGqD X84GEb6LBL3wIhzQFpq DXWfG7LzyL2xMtVjDMO kZGRkOyc+PHRhYmxlIH dpZHRoPScxMDAlJyBzd PgmQC8yCu6sJJVbMJEx eZmkkDRxZbGuk7mgSYX tPAptPQ3gnTkfF6BtaR T5RIUuj1n0Nc22V76nN 3JvdXA+FBVdsXF5lTC7 nD8eBpZxVwI3RIjoC56 4VsOpfPAvYxoul3tfm9 cqvBo0VrW9LMSsgeGfq ClbFRW0u3MtEt63A25p IHdpZHRoPSIxNSUiIHZ djTxwit2vjM4fUj9+PG RgjCM5iIT9sH8pPuHxV lC7SNmlA952QaRnmGWs Stddy6rtm7lfpMl6XhR hMPHdezWrxYvjIOO7r0 LvIg01J3ZwhFoen7FgA ch5bm63oGHvi3S4yUX3 P5QdWTXrybzheKDfzCg kPO5aPIZeosyaYNAkxY 2oKDEjT6c9AsLgFbP5P ZbfT7OxwwU7WBHwvBTp TGKcrDWGjH7wxkohz6v siozmMrPpSFNzLVs5UT w3DGRrxBdqMtKpRBN1R zV1LSM6pKTqzX0hbWbt qvmegI7tAmf+OFH1aXA vrKJKXK8eXmtwaEV+PH LeJXZ6oLryLMotDTLsf J7nXNQpC5y6EfEqHgH4 YCwdG1WxyuD6QFNddIR yZKNhbUHGdX4lpyitw5 aakeyoKeEiCBCuYHi9I Qq3LJLplEfsVzQdJXY3 YwZ6OZS5eNMvuB0dpNl izoawyM5iAer+QmlydG qjWVE3VHr9I1TvWif6A LKoqCtuPC7ghXWpPHca Ao8mvBfatHylCW5cXKC dylhfn325XzIll0lvNQ RmqXYhNTaiDPY9P39ci 5P3CWSvALQqLRQ0uEP1 jT3hkMashnwanNPyiBc gdmVydGljYWwtYWxpZ2 37KAMlbQlqVdQwIVp3P 5PdRod5IMDhbIriES8g kORnKEhwGp6wvPncwVt iHW7sGNVorngqi684Wz Fdl4dqNWDrvTQfEFcnN BP8W81ok3E8YRXmWVXw HEI1eXO7yX7zhWpnjzy gbGVmdDsgdmVydGljYW xuCJcjP539IXYgwSwfT fDhuHx7U1PbDkr7DQSe lIuxQO8ldMXiPAxjWz0 ejYjiyIteSP8yLIQsbo vtb945DkOqu1xoHBTjo LLgNRxqQCS0R75hu2W5 WXPqPQPzEZZ7zWM2mW7 hbGlnbjogbGVmdDsgdm YcbVcdOIqqZNctG145J HRvcDsnPlBhdGllbnQg VGqnHHv6O1BzNhxtzMA +QL23QNExES52yTVpeV Oye8xxcCg1BmBkITSuE OY2cBagZXlgh2FqJNKt V12kfYOwy8L6PCNuoYq ihBJnLgRskBX6mO8fQH jxckzlp7zclcatFzser 3jhju86uI73Z57aURyc ZHRoPSIzMCUiIHZhbGl vex5dhM3xDt2+PGNvbC D5vXF4aK3rGJJyKsP7F CigI676YrQotJUuSreg i3dam1qszGv1GiW6EFH jbqVasKtvFBS0m7WbHq 04R63uIBieAIVqRZQbT RZnVRNdcYkgjt4hlU5a Ii8+GNYkbLM2oNG4oT0 vVfDuMdP0SXnjF521Wn XpsLQjNhwxJ83fY8Lqw XA+XVMsBae9NQQisPqy PE3grOCkKAsiLu6yYYA 2NhSrHwSfGRjmR8MjCF AjhagbudawmZY5RIDiI HWjhQ77In7lxTpwLKSz mEUHpD8pxbkiq9xtbne gBmMaYBOuUBq1JCf4WD XacUmlSxSqCWB9EqM0B DF2dNHpmH2nmFwxvqnc bB4pA7FlUQSisvyjXb6 3vQ4nAaGgSpE0UPxwTq c+QkFLRVIsIEFMRVhBT kRSQSBNSUNIRUxMRTwv dGQ+UOAtEDU3nDsqEIw vSVXocR2yDBHvD5u8Wt QyJpZ0WGcdL6KaDSVqf ghiNg36uS3oVaYmQiN5 UWxsL2CkpxF2AZPigSJ cVFbgBNU4X13kd9E2FQ TjMZQsVWY2iXM8kM4zp GlnbjogbGVmdDsgdmVy tKogOZqrJAcsY020QEE epFucMjNxCzB3DiYdAI S2S7AaAbk9IWVwrRvnP K7xnOSaSSfhTk2zlKna gRfpRY2xARQimnqeEOJ ggT1aTTSkfLVzoGndJC 6lEULfctgso673AmBwA EP1GEOvnNSvB7BybD2o YyOqVWUkSWNsI2MhdEA tAXluM323YVgnCxE7NX YopiFcV9GwXQPquFoyT xH9j0V5Or3bGSAFJRXj czwvdGQ+BURqSWY5sGu zRJwkQCHckY9jULTgD4 c4MyKcHeW7BVlyH0QsE ALpimbxUe43dB6yOaGk NrN9QQpvQ0NhjvF7YNE bhJQyAIfzJPI0Q86oz1 Q7MSFoLAWgBJF2uUT0t K4wuRnwzxgwlQDigFsg qgAmvPwxMFxkWGyuX74 6IHRvcDsnPkZFTUFMRT wvdGQ+CWSfTOD4gXngA BvhPHIztQ6uVDXrE2r1 PuRaWaE6LBxgB5KlDBK amwtzTo77hX1bTlMdFr M5GQsmD7YayjN5XTVqu EAmIXrwHKW4F71go7D5 NBVzLWErHHX8gFI3dT9 hbGlnbjogbGVmdDsgdm KucYoqYQgaRRplA514J UGhlFxyWk5MXF36YE65 V7GyMjvyrXUqaGG+PHR hYmxlIHdpZHRoPScxMD ZlGhPwzGucLU2oOd7dD GVyLWNvbGxhcHNlOiBj r2unTPJnKTuvCB1tzGk kC1KloGM1PGOnb4y0Yl 25C02cO5RlhZK+PGNvb UX8cKQ5bQ6xSxCdZxM9 BGsdE575JpQqhOByDnq xd5xld7kvjYj5PyLwJL JlgnVmsSesJTN0j0MvR b51L94eGRzkYEJsARQy DHPhMLDoyHnkma8uyT9 wIi8+CVJydWO7sGK1fT 4fOlChGtE3SDunF122O aSxyZExLjjmW67rX7Sl dXA+JVKzHsf9OLRtgXj kOX3cxHCqYPdpDm0fIS W1CtYlLkSlHGurU5SzP TPtqslvbslxwBB7YQCq QWPdjT65Iy8ylPagOc5 oNDNqMKK8PTXhzUVwX6 LkjM9wIdEiNJXdMRFmI 1UksRPkBFtrY334JOis IsV4JGAuhnJfS8BxRLB ogEnzEeW7k2H7Ol0WsO hraAGtFC9bTdFhJIf7K 3XwTfm1YAJfaSmcUZ6g sIGsLNzoKw9ziSgimUy eVI6tPCRxqurlz443Mh Zsd8cjYHWzgULkNDfpO SK0X33nl6F7QZHzZQVy WQS3eNG8pK1rcByglua gbGVmdDsgdmVydGljYW knIPjrV678OYQrzVisM cOYCci9O2VfBnp6GHLf vZwsKF8qzIVlVMxsKa4 wkOacrHeqNY7jNJDgtx zhv212YeBxi4eiSPGqf BJwULiaAWH1M87lz1Z6 OAEvETDnTOO5kDV7jE6 hbGlnbjogbGVmdDsgdm YooEqeDBixLJvzZ432H FJueZgqOt6SBcw7E8Xl Jhk3ZQKfrZslMM2daCZ uRVnbBu3foKiicBogSB 9wYEWllkwap140SxKff 2hmPTGbvXSoNLmmAMB1 X28hy9R1WNBmUJNbPLO 7oZG6cC0ucIjiskuymF VmdDsgdmVydGljYWwtY BstN389OFArxXrmOgIh eWVyOjwvdGQ+AD05bs8 1D2PxEtamFyk4OLYbMO I7kSL4iV6kODHrJBmst 7P0lUE9U2TvveZawm9u b2x (more content not included)... [facility] C Throaton 01-12-2023 C Throat Ordered by Discern. Normal throat dong isolated No pathogens isolated Normal [facility] Comment on above: Performed By: #### 4 [id number] #### [facility] (DEFAULT) [address] [place] [id number] Progesterone LCon 01-11-2023 Progesterone LC 8.7 ng/mL Invalid Interpretation Code [facility] Comment on above: Result Comment: Foll icular phase 0.1 - 0.9 Luteal phase 1.8 - 23.9 Ovulation phase 0.1 - 12.0 First trimester 11.0 - 44.3 Second trimester 25.4 - 83.3 Third trimester 58.7 - 214.0 Postmenopausal 0.0 - 0.1 Performed At: [facility] [address] [id number] Bibi Irwin PhD Ph:[phone] Performed By: #### 3 [id number] #### [facility] (DEFAULT) [address] [place] [address] ED Clinical Summaryon 2022 ED Clinical Summary [facility] ? Urgent Care [address] [place], [place] [id number] Clinical Summary PERSON INFORMATION Name: BRYNN WALLACE Age: 22 Years Sex: FEMALE : 2000 MRN: Acct#: Visit Reason: Throat pain - Adult; Body aches; SORE THROAT, HEADACHE Arrival: 01/10/2023 13:26:17 Discharge: 01/10/2023 15:12:00 LOS: 000 01:46 Check In: 01/10/2023 13:26:17 Checkout: 01/10/2023 15:12:00 Address: [address] [place] [address] PCP: Leah Azar PROVIDER INFORMATION Provider Role Assigned Unassigned Genesis Calvillo PA-C ED PA 01/10/2023 13:47:57 Kristen Velazquez MANAGER RENTAL Nurse 01/10/2023 13:53:38 VITALS INFORMATION Vital Sign [...] Adult Follow-Up: With: Address: When: Leah Azar [address] [place] [id number] DIAGNOSIS: 1:Systemic viral illness; 2:Viral pharyngitis Patient Understands: Comment: Normal [facility] ED Patient Summaryon 023 ED Patient Summary [facility] ? Urgent Care [address] [place] [address] PATIENT DISCHARGE INSTRUCTIONS Patient Information Name: BRYNN WALLACE Age: 22 Years Date of : 2000 Reason For Visit: Throat pain - Adult; Body aches; SORE THROAT, HEADACHE Arrival Time: 01/10/2023 13:26:17 Phone: Primary Care Physician: Leah Azar Attending Physician: Genesis Calvillo PA-C Comment: Patient Education With: Address: When: Leah Azar [address] [place] [address] Sore Throat A sore throat is pain, [...] these instructions at home: Medicines ? Take qibq-zfa-tlxjycu and prescription medicines only as told by [...] and water are not available, use hand filling machine tender. Contact a health care provider if: ? [...] can cause a sore throat. ? Take dupy-tad-fawffmu medicines only as told by your health [...] provider. Document Revised: 07/08/2021 Document Reviewed: 07/08/2021 Elsevier Patient Education ? 2022 [employer] Viral Illness, Adult Viruses are tiny [...] grow ou (more content not included)... Normal [facility] SARS-CoV-2 (COVID-19) PCRon 01-10-2023 Internal Control Pass [facility] Comment on above: Performed By: #### 3 [id number] #### [facility] (DEFAULT) [address] [place] [address] SARS-CoV-2 (COVID-19) RNA HERBER+probe Ql (Unsp spec) Not detected Normal Not Detected [facility] Comment on above: Result Comment: Perf ormed by PCR methodology. Performed By: #### 3 [id number] #### [facility] (DEFAULT) [address] [place] [address] Strep Aon 01-10-2023 Strep procedure control Pass [facility] Comment on above: Performed By: #### 3 [id number] #### [facility] (DEFAULT) [address] [place] [address] Streptococcus A Negative Normal Negative [facility] Comment on above: Performed By: #### 5 [id number] #### [facility] (DEFAULT) [address] [place] [address]897 Progesterone LCon 12-14-2022 Progesterone LC 6.2 ng/mL Invalid Interpretation Code [facility] Comment on above: Result Comment: Foll icular phase 0.1 - 0.9 Luteal phase 1.8 - 23.9 Ovulation phase 0.1 - 12.0 First trimester 11.0 - 44.3 Second trimester 25.4 - 83.3 Third trimester 58.7 - 214.0 Postmenopausal 0.0 - 0.1 Performed At: [facility] [id number] Bibi Irwin PhD Ph:[phone] Performed By: #### 2 [id number] #### [facility] (DEFAULT) [address] [place] [id number] Provider Orderson 12-11-2022 Provider Orders [id number] Normal [facility] Coding Summaryon 12-03-2022 Coding Summary HTMLBase 64 ZkrzuknwWDa3uCm+PGh lYWQ+EY1CCEZlS00plQ WgsA3lH6YZCCnWZxxwF XBXACzGGpFekaZhOK6a aXNjZXJu IC8+YE1eRNDgWbrqtLM td5T2qOL2Z59kit3wYM duiQG7EBBoFsWjrudxw 1lhrJu0BPirGcvfTcEp VUKomN11NCR3eU74Vx3 2yGHvoEDgf6lgfZb6Lc HnZMIfRNA4cYitZUqee 2BdQHVqK63dzQOrx6A3 IGNvbGxhcHNlOyBlbXB 1pX6nFOmkbbyaj2oync ymUku8rx03iQXwz2A8t VI9K5RkcvE6GPEzaMZb LjwbsWNUjM9vypjjh2r pzcroVsHzRLJtUSv0SQ b1YGLqrObxFoGtYR21F GN2LJGylpNfC5VvIHKv kGimQmC7d7W5Gs0JP8N SGhfcM4XPABFBDNoqqN Q+TI17gk82I1WcShqdD nc1ANQiNYV8rZW0jV2d QOXxOLsmg9W9fKA2J9F xotFtjv7iz5xnLFXyDX kjF37gsUKip7Y3LZAho OU2WEGusUtgWzYleM61 Oyc+NXKuaKfmj8AcMtg ie7jky1bdpMn4JufbTK XxtqOifXywGLL1q3QiD c7cDPSdsEW6qQD6bR6j UzZuIeD0QVhlG734KaU wfQJwGwwbE29aP8IyyV A+CSViZlm6BLGtsUnhM V0sS8ZaFJOjfukkxIYp vYnhTR7oRELnomzbINW ppW7hJXUoZ4y0YhDuEq S4GLrqP3FqGVPdfnxcR w53uI4yDjGlGxY2LDee Q8LvgoT8RCIxcMOnFGh oZMX2Z85yr4X7TUUoKD XiABK7nSK0nL4lrIhbb jogbGVmdDsgdmVydGlj MWrbXIrzL555QEOxgFj nPkNvZGluZyBEYXRlOi AgMDgvMTEvMjAyMzwvd GQ+ZXSpFYV1qAynGJBf gJXjWIdpVz6dnUplfZh fEZ6xGWBqmbqnUEKhmY 1nXEJakIVbeJdnSJ2jT IZgbozwv161ZmYbUES1 JKXamXEtK0OufA3fOaJ eDCIlXLVnS7OrpHCbLC wfG961HAlsTpG1PRAvf oZmF3KiXZXvkOrrWeA0 f6B9Mb2Tq1IhtkyxB3K exRLrEyDyZdviBTv6S3 RkPjwvdHI+GJ62WWOiP R69CHf7NOV1iTlqUAtq JCKxF8PtmL9wKeZcAJE kZGRkOyc+PHRhYmxlIH dpZHRoPScxMDAlJyBzd JfrJM4tPh1sWAGaOYZz fBsvdQFlHwHpf3vzBMY mCSbcAW7vgXreN5KhmH W4RTNjk6j3Rk56X49oV 3JvdXA+PVTdbBZ4dYN8 jP3sGkRgWgH2JTwhA98 0DkOziSHhYafdf1bev0 mrnDl1NyG3TMLpxlVyb ZyuWDY5k3VuJa51X46q IHdpZHRoPSIxNSUiIHZ xxJziee3glA0gAl5+PG CttBE2zTL9vD5nFmVnR mY8VRksY940MfEgmJNj Jtkhy3ufd7dwzCe7GqY qBMInhlArcTdgCNZ3w7 IwEu32R6HfwGzii9XsD qj6ku87bFRzm3V1aMK8 D5TsSNHnidwgcZFrrVt mIG3lUOGdjppyAKDuaN 6dZRFgP9c7BqOpOfK3E DylQ2HaezN0IXGnqHYt YHEnnNVMlX7jfkjja3a vpwqtQlHxFDNqEIt7FV u3SYJidLfvCcUqXWB3I kV8HKL8wJJdfB1bgMgj ovaojI6jMel+HVC4gJC tpIPXCF7eZvlneGB+PH WnILU6yJmyCCjcQGFcd G3iWYSsM8o4TiQjWoE4 AClnD1QjhmH9NSLvdMV mOKMcsGUSbE4hltiui1 lmdpkgWuYmSUCdCDl5K Re2PAVghOpdFdZqLGE9 YmH7NPJ6vIDnfP8kcNk huhqelE1gNdg+QmlydG ezLGX4BNb5W2KfDli4J NWmpIucYF6hwVDrPFto Qy3dtBjmsPvuJA0mISL moiijp974AwPyw5bpMF CliXDfQAnyWPT9P59uo 3L2HOJgCETqYSU1xFE1 fW6bqQgebrjhsJHmbHw gdmVydGljYWwtYWxpZ2 97ZIAwpDrhFvJbNSb3T 5CnUxf4WMYufTnsBP2h mWWlYZjvGs8azOthwEt qOH0wOOBtksxxh658Im Lzk5nkSZIvaSFzQDdwO OF3I73sr4M4TDVjPNRu FWQ9eTQ6mO5elIyygos gbGVmdDsgdmVydGljYW fsYAqqL472LJOeqKkcJ xQhoPr3A1JsCxj1MHJq wFiiWM6onZJwKVmsJa1 fuOofdYbxMT2sBDOxom uco056MtXhq9lmVEAno NYeJDjiUER7C33of4D1 OVMcEUOqWOP6nSU0rL8 hbGlnbjogbGVmdDsgdm TjoSvtBPdxMWdwK022C HRvcDsnPlBhdGllbnQg YXyqISs0B9MlLtyadED +PE36TAMcSZ41xFQidR Qao8ipnAl5JrPzVKUrP VN1hJqlBBund3RcKOBx Y38ljKUow9W9PBCdlKz ldQLbWvLoaWP6fT1tGK lqepiqv1gftaopCiuzo 6apoy99gH42Q02sBQyt ZHRoPSIzMCUiIHZhbGl aqa2bkK4pVc9+PGNvbC H2dZL9rZ5wBJOeXrT2M KbbU470RrPlgJLhGsxn e4ocy1tlaXq7SeW5LMM zgoCgiIvwIQH3t5MpYl 82J72aNNhtFOWhTPSeL PBaIHIwuZognt2mbG0q Ii8+PWVwgIQ3mSH3qN2 yMuDeIoA6UEdgB227Fy MycVLhUpfbX30yN7Uej XA+ZPZfFza4FDXsvSjc JN8akXCqZWbpNv5iDIA 7EtEbJbSkIHjuM7BsER WqonlninzpuYH0QWZwM NZudE47Lc9hpKdmCQMv hYKUxT9verpwf8jlgao tBlIbPPQpOSv3HWj7FA EqaNmvLpIwUNI2HpZ5C ZZ5aORruA4isZusyruh sQ9jG0WjMHUaeddeHr3 3fO7rByNlGsK5PPznQr c+QkFLRVIsIEFMRVhBT kRSQSBNSUNIRUxMRTwv dGQ+ZRWlAAP8vJusQNh tGWTcwA9bIXQzU3a9Ny RoSsU0IGlaU0AxLFDqq bggLb85zN2rYkJyAjW4 BNsfU0RayaC9TNIvpHX eAVkcNCJ4C08vy7T7SD PmGIZbRQT8gMP3rR3ea GlnbjogbGVmdDsgdmVy wEqfAKzxOMbqJ194OUZ ozBclUqXaFdS3MgNlZJ H9D4WkNxg3BBLllXhpA U0lhJGxCLlzDy3byEfz wRbzFN0gXDHqdlhjPMJ cuT0sFCMjrREyaGrwUA 5bTOQzepphs355RpQqF ZY1ZYLpjFRhQ0GyzZ0j JjNiXCPfLAAqP6HutMW vGNfuT809JRuuZnB8WN BqiiLrQ0EaOCYpnXvrD iS8p6G7Sd7gWCTENPHl czwvdGQ+DMTyMXK8fOl oXRlsFHNfqE1uLXPtQ2 b2OvZsPeX4DNmzV8NdS OCxwnwaXr78gB2iGcEe VnQ3UKzaC0JcyuQ4HMF wcXFnLOwbSIH7H40fm1 Y3HSIhUCPbXRS7fBY2w N9tqWivesccsVWebFbm gaSkiNjhVUazSTmmN12 6IHRvcDsnPkZFTUFMRT wvdGQ+AIByQNH2aHsuD AfxLBYtcX2cWYEsC0x2 SnEuLwH3NOjdC9SaCME lmbkzAw34zM6kOzHvVb T5RZpfR0YuroN1TBDbl WTiGTrdUVG0T44bx1B9 ADIqXTMxZYV1cXF4pR1 hbGlnbjogbGVmdDsgdm WuzMptYQmhMUlhH481A PYgwIxmXp8NFU92AI13 L7EmPubpfRXxnPI+PHR hYmxlIHdpZHRoPScxMD PnZuXfuIfcYB1aWq7yK GVyLWNvbGxhcHNlOiBj m6daDVKbAAosHP0ojJx yJ7LvgXR3QYMvo1p8Ej 34I56eN5KjbOL+PGNvb QM6cGY2lM2kNdQdOzK4 JFfiR971YaOykRGfZih is5wec4bhlLe2GmZbNA PvmjEkkUwfJIS8y8PjU n52A02mSYbgMICkQFEp JTKqWGTpiTqtub9dlG0 wIi8+MGNtwQA6qVK1kE 0uAkLdToX4QTlrW083C sCbyUCnOvjlO70pE7My dXA+UZIpBtw0JBJejHs kAB2egHXoJNmiVr4cWE W8EcIwUlIoZNwpH0NvF HPlnzvdwjbdgWM1ERSj CKZglX21Ze0urXhhSg1 vCFBoTSY3LTVbbYOwK6 AkaV3fIcIlTKAfFYQrO 8CxsIHfENyxR765FLvr JbA8QKGfvdUaG1KkVTT xfJznXzC8n5A3Jc8HbC kukAOfTD1xQzMcRIu9A 0DyXbv7CZKkxCauVB0i fECbPOtgWq1ijEzfqIe tDD1fYYYendcbb410Mr Icj1odSXGjvSFcLXdmP KI2X61ew0M5JQXdMKCv WVM6hDU6uO3ihWytsln gbGVmdDsgdmVydGljYW xlEGkcJ056NHCuaKznA iOPYft5J7WqGrv8CKOo tSivQE9hjTQyYMbgVl2 xeLrunRjnOF7tUNLfzj xfh883GxUqp2qpLSJcg FGnPZchZLL0U66vx2C6 COTdYSCjHNH9oDN4rO6 hbGlnbjogbGVmdDsgdm TizNmoXJqeEQxgH469B NMuzRgfTm0LCdh6O9Sj Qbe3UHCjcNkgTU4lkTD zALbaOb7xvVvhcVmgSF 9hJHNpukbbh123RfEqt 7lfKHPlfNZhIBhlXBU6 U47es1G7TAOtBHCvKLV 6jKK4cM6mhMsvodnbbT VmdDsgdmVydGljYWwtY RjrO115JFRlgMkjOqEj eWVyOjwvdGQ+FJ86qq6 5C2WbBsukFlo4IWOhBU J2lDM9zA5uTGTxAUmbe 6E4aMU6V2FfkrXwtq8r b2x (more content not included)... Normal [facility] US Pelvis Non-OB Completeon 11-29-2022 US Pelvis [...] MD 11/30/22 10:38 a Technologist: Geno TORRES [facility] Provider Orderson 11-26-2022 Provider Orders [id number] [facility] Coding Summaryon 11-22-2022 Coding Summary HTMLBase 64 QhoyytiyYNo0sTv+PGh lYWQ+FO5IAIHtO32jaR RupF9zT8UUCOiDWfefO ABUSJaOQjKftuFmRA2d aXNjZXJu IC8+LJ6wKQYrEhxvwQE ur5X5qQT4O25ydp6kCK npjSN8MIPnJdKkntnkg 2uoiHk3DJycEbatHhWl JRDanT80VIG1aR51Yv3 2hUKmaENcn9edoUz4Oc LuSONiLDF0dLplWUkey 5ZqHTAaT91pyZEke2A0 IGNvbGxhcHNlOyBlbXB 2jT0hSZvqyekmn3lnvn xkRsh7hy38oGQbz9E3c DK5D8UcvjV4RIVtvZXj HrufhXLWkT1hqeipt8t fbbwdVlMhRUUuVLf8HO o6LEVtvJzyFkQiZI76M EH3PVDpsmZfO2QwNKTa zSlwYmM6h7C0Fq6ZV9F YQitlW0WQUGKFPNpzwX Q+GS32xj04E9LwGipiR oz5NSOsIXM5zBK3fU7s SSNzTWtcb1X0fTY7S3M fgrFvlf8se3oxEXViVP cdJ08wdOCyu2D9ISSst SK2ELJmnCpgEwJwoZ60 Oyc+HVUwjNudb6JwOtg qn2nqm9jeuLi5RhpsCX GwatFccXoxZWM1s3CsK y4bSMEfgLQ1vOJ3gJ1q VfDgIsJ2DYknE919NbP zfBQdChqwV62wY5HftV A+OWFcZsq2GHLspIqxY C3hO4RsBDCcuvcfhLSn kVeqHT3tCNNtlysbFKS qqK5fWDObU8g0MfSgHw J5VNwgG5FiZNUghxneG x81cL6aSzKeHvJ6MNrn H4DgzsK0PYFqeNMmFJe oIMV0F27mr1B0LLYeCL UaBGT4uMF0mC1hnJomn jogbGVmdDsgdmVydGlj GYvlJDutL369LXBvyFg nPkNvZGluZyBEYXRlOi AgMDcvMzEvMjAyMzwvd GQ+KIIsHVH1sAkqSLTr vDGdELahHo3ovJmrmZf oFC2vPWBpptuxTONrbL 2gYXZwaOTgbLrfXG8bP WYwrznep941OwUcKNC8 VZZqxJXcU3JinL5sWuN jPTEsVRSuP4PqnEUvHX xaG666WVypEqQ8ZFZvh oOhH1NaBXTwfXqmFcU4 l3Z2Ot9Rq4RpyaruG5V vhCUtYlWoJdilFKd0K3 RkPjwvdHI+RN85RYTnA T96SVd9WEX3pWynPGbs LDKkD1OloU1lVjQgNVY kZGRkOyc+PHRhYmxlIH dpZHRoPScxMDAlJyBzd HpvSZ8kVd4fILZfQUVl hXctgTTrKdBjy9ooLMG wNQdoYZ7myYrzI3CtaQ J1OEFsf7z3Ia39P11bL 3JvdXA+IVBovMB4rJU3 kA8nWpOtBjY8HRoxM96 5EcRwmGOvSyomt6wgy1 woaRu5BxC6VOLknmSqr GgsIBD6g1MmRl54R87q IHdpZHRoPSIxNSUiIHZ seNioem7lbE1fFl1+PG AvfPW9lFW8pD7mKaCiU dB2WCjjE486TtFzaPGg Khlwv5skm1ppcHq3VqL mJCModxJcnZlhIDF6r1 EhZv85W5SmtNsse6SvK ru2ex14aBOxh9R0aGX4 V9LlZWUagqzjzSUflWw dLL5qWWHvswdbIVYckI 0aDTCeA4r4CdAeYdG5P PieA1NbpeR6PWWorZSk AHDumKVReU8vscrqp4n ocezaOiDzQWErORc3NL r0DBOcyBivAxLcHFK4K wL9IFO5cCSteR2aqHul xpmmbS8gAoj+QDI3uZS yhESLWJ6fZrdjaJF+PH ZgBBF3eKygFAvcHKXsb I7uHBImB8v1CoZmGcD1 NGxgY8BnxoX0CFTdnZK mXFWyzUUUcR8euqkgy2 inlpplCvJkWRXhQXa9U Cx7BWCtnNucIkEwUFP4 RzQ2HBE0oIEuqE7woJq lurzsjN6wPda+QmlydG ipYFC2ECj3J1WhJih1J JWlwYjtNB9dqCSlMMwd Qk1mqEfnkDeaHX7vGFR khskaw585NdTdk2ccMG KcmNUgFHsuHUA5Q52bi 3C8WBTxAFCjMMY0uQP4 lC9mpGqmytundDEdeQq gdmVydGljYWwtYWxpZ2 42HPVnlVytToAvUXs6F 4PqAed2QFHndFyhHW5n pREzYEsmBg7wcTemzCj zBD8dGBFxlbiqb314Ds Pac2kpTYEmdAStLLrrI KL1H98mz2Y9RBXmPWLm TTE5aLL0yQ7gcAgovlu gbGVmdDsgdmVydGljYW zqXUfuH934DADteYyuZ wRkhFl9F3AeMgm8JPWd dOeqBW4ayELkBMfoPt4 nxHwcqKwpFS3jKJFflo vdf789VbXhc9puVOQab FOiVEvsIJK8R50jd2U1 WGRhVXHlPVT4wXT4lL7 hbGlnbjogbGVmdDsgdm McdBchSCujVBqhH420J HRvcDsnPlBhdGllbnQg FBakKQb4Q8JcRflfeTU +EG99CQJgAL44jITgtL Kyz4qddPe3UhUtHXZmV CZ0zIlhHWvsc9RtMYTk B65puZCas2U0FJLpcAk xnFQaJlQrlMA1wB6oYL oercmzr4wxrswuUijgd 7qpum05bC98V09nTZco ZHRoPSIzMCUiIHZhbGl fap0hyM1bPu5+PGNvbC W9fCZ9gU6gFXPpOeA3S UdaX136HxBztLZxPrpc x7hwr4ypnLs7GeE4SWQ mlgApoEdgUSP8q3QuBk 74M10pIRnnNFHePRGgJ NKiCVXimIyfxe5sfO3r Ii8+AZFqrDA9sQE2qG6 wZbZtRgE7YEopU097Qt IllKBgLzndH22pY0Ffq XA+FCQuStb5XCJcuDhj RZ4weFEvOGvjIe5lGZR 2ThYkEuOiYIefN3WsYT ZvlxdwdjrooKD1KEIuD YGykA71Aw0uwQitVVAz fFEXyH0avthhl6weakl cYgGqNEYxWSy0NIh7OY AuqPxuZeAkDMN8MeN9Q HC0zHOisV4fkJsgqezv cA9sE1WiZGNmweheKu4 6mW6jHfCwWdE0XWypVg c+QkFLRVIsIEFMRVhBT kRSQSBNSUNIRUxMRTwv dGQ+KLUgXZA3gQnbDFj wZFHyiW4bWPEgZ7t9Yi DeXyD8MYdvW0CaAIRai csvIx29iB4aSoWnIjT0 AClzD4YnvrF3YRFgnAW fRGvmYYC3Y06xk4X0BW HqVDGtZLS7dPJ0vZ4qk GlnbjogbGVmdDsgdmVy yRpwVZktMWcnU065JBG ocExpKpKnQdU2TaCqGO M4H2MxLmq9WGFisLylM N9vnMPkYBhvGu3lqXjw zQmcHW4xOZUlrlcyUPK olQ5tBPEfvTWglWdyYQ 7fACPsewpbr068YaWqA IA2PVVffENpG2OnxN3t XgZfKMGlBBArD2MhaOI iJWbyV455MNgwMkN1EC LgkgIeA0DoMFFrbJxyL mL4i7J7Ls9lAMUZVVEf czwvdGQ+KORnNAM7rRg lAZjtEZEfsB5zIZLdK9 r1VmFmEvE0CLicI1IlN NNdiygdUa39sQ4wRnHt BxI3TIarC5OiekC6QRD hzXDoPVhwAPW0F57ab1 G7FQGoCMAiERS1sSM7n M7ykKinytntxBJdqVjy uxLmwIypGDvaAFrwD21 6IHRvcDsnPkZFTUFMRT wvdGQ+OVZkUTR8wGlvD DduOIAosG0gABGvJ9m5 HzRuMxF2EHmmW0QlNEE zgwyfKn76pK1tDtPhOd N8PKdtZ8UkihE0WTNcw RViWEerFGQ3I91tp2F2 TMQlOQIkTUR6lPR5vD1 hbGlnbjogbGVmdDsgdm ScrYefLWzwTJbjT479U BOkaGrmXj7SKH61IK88 M1QnXgmeiJOevTR+PHR hYmxlIHdpZHRoPScxMD AcDoEogQbbGS3nVi5zT GVyLWNvbGxhcHNlOiBj z6yfVRJuMIsnYX9ncRm sC8ShxDZ1PSVed0i0Yb 33A37pE6QroZG+PGNvb EY1kEO0xF9nZfFlCcB8 LKwpR293PfIfiUKpKrf vl7hcw8jhtYk7JwIiDR RvbhRrbWfqQDI5c6WnH c32I12tQTiuTJTqQURo CBGpKKYmfVhoqv8drU2 wIi8+ZQGliMW6hZP8gZ 2kEaXtJmU3APzoR136G bLqzFYgQofcZ70eE5Vv dXA+BKNjWmc9JYSfxRl vYJ9izHHqPSnuRa7dBQ R4VpIkSkAqXWzyV2FwJ DKbzvamfsznyQQ3AUXl NVJfeO72Sg2mxYwhZg4 eQFZjHEZ1ZJGvaFMgH7 UnwL2wQpDvADZsPGDeR 1RdiISuJOgfH998YKxu WgC8OVFchwVqA1NxYAB llJnmGnF3j5E4Nu7DwG szrCTvMO8sWzEpZAe3P 6MvJxq7XSVpsDsbCV2m vKXiKMeuEn2vjOkisSm cPY6tSLSygootv925Fq Gcb7yoKAZcfMXgJPqoT YV3L05pw4M5GECnFKTu HGB6vLK6jE1woUhljcn gbGVmdDsgdmVydGljYW tnWLidG603UHXayWelO bQTFoo8L7QjWto4DAOs gZfoDV7fzBMpSGfsIy6 btWuaiFngHF7dUVMtoh snv865YqOyz7qaGJXxx BBvKVfaXMH0Z49hh2Z4 QVOuSPMiRYN4sSD7fN1 hbGlnbjogbGVmdDsgdm IznRlwWHvlHWniP883N WUahKupJn5FOib0J6Wk Pka2HJZrdKbfBH7vbBF eWNwmXl7vzAveoGgbJH 0bMRUpzzpin339LwVoc 6dzRUEmoPGcAMbsMXJ9 F51bt6P9SHBeDYAqFZR 9cYQ0uP7moCdbsdzbnH VmdDsgdmVydGljYWwtY RxdC715COEkbEedKwDo eWVyOjwvdGQ+ZG81in3 7K7VeNffnLbe8WQWaTZ R6pDD7qI0wVYJtCBgka 9K3sIT2X7GyavGgwp0x b2x (more content not included)... Normal [facility] Dehydroepiandrosterone (DHEA ) LCon 11-20-2022 Dehydroepiandrosterone (DHEA) LC 340 ng/dL Invalid Interpretation Code 31-701 [facility] Comment on above: Result Comment: This test was developed and its performance characteristics determined by [facility]. It has not been cleared or approved by the Food and Drug Administration. Performed At: [address] [id number] Morris Nayak MD Ph:[phone] Performed By: #### 0 [id number] #### [facility] (DEFAULT) [address] [place] [address] Dehydroepiandrosterone Sulfa te LCon 11-18-2022 DHEA-Sulfate LC 612.0 ug/dL High 110.0-431.7 [facility] Comment on above: Result Comment: Perf ormed At: [address] [id number] Bibi Irwin PhD Ph:[phone] Performed By: #### 9 [id number] #### [facility] (DEFAULT) [address] [place] [id number] FSH and LH LCon 11-18-2022 FSH LC 1.9 mIU/mL Invalid Interpretation Code [facility] Comment on above: Result Comment: Adul t Female: Follicular phase 3.5 - 12.5 Ovulation phase 4.7 - 21.5 Luteal phase 1.7 - 7.7 Postmenopausal 25.8 - 134.8 Performed At: [facility] [address] [place] [id number] Bibi Irwin PhD Ph:[phone] Performed By: #### 3 [id number] #### [facility] (DEFAULT) [address] [place] [address] LH LC 1.9 mIU/mL Invalid Interpretation Code [facility] Comment on above: Result Comment: Adul t Female: Follicular phase 2.4 - 12.6 Ovulation phase 14.0 - 95.6 Luteal phase 1.0 - 11.4 Postmenopausal 7.7 - 58.5 Performed By: #### 9 [id number] #### [facility] (DEFAULT) [address] [place] [address] .Auto Diff 111-17-2022 Auto Sandoval % 5 % Normal 1-12 [facility] Comment on above: Performed By: #### 7 [id number] #### [facility] (DEFAULT) [address] [place] [address] Baso Abs# 0.1 x10 Normal 0.0-0.2 [facility] Comment on above: Performed By: #### 8 [id number] #### [facility] (DEFAULT) [address] [place] [address] Basophils/100 WBC (Bld) 1.0 % Normal 0.2-2.0 [facility] Comment on above: Performed By: #### 3 [id number] #### [facility] (DEFAULT) [address] [place] [address] Eos Abs# 0.1 x10 Normal 0.0-0.4 [facility] Comment on above: Performed By: #### 8 [id number] #### [facility] (DEFAULT) [address] [place] [address] Eosinophils/100 WBC (Bld) 0.7 % Low 0.9-4.0 [facility] Comment on above: Performed By: #### 1 [id number] #### [facility] (DEFAULT) [address] [place] [address] Lymph Abs# 1.9 x10 Normal 1.3-2.9 [facility] Comment on above: Performed By: #### 5 [id number] #### [facility] (DEFAULT) [address] [place] [address] Lymphocytes/100 WBC (Bld) 19 % Normal 14-48 [facility] Comment on above: Performed By: #### 5 [id number], [id number] #### [facility] (DEFAULT) [address] [place] [address] Sandoval Abs# 0.5 x10 Normal 0.0-0.8 [facility] Comment on above: Performed By: #### 8 [id number] #### [facility] (DEFAULT) [address] [place] [address] Neut Abs# 7.7 x10 Normal 1.5-9.2 [facility] Comment on above: Performed By: #### 5 [id number], [id number], [id number] #### [facility] (DEFAULT) [address] [place] [address] Neutrophils/100 WBC (Bld) 75 % Normal 44-88 [facility] Comment on above: Performed By: #### 8 [id number] #### [facility] (DEFAULT) [address] [place] [address] CBC w/ Auto Diffon Erythrocyte distribution width (RBC) [Ratio] 12.9 % Normal 11.5-15.0 [facility] Comment on above: Performed By: #### 7 [id number], [id number] #### [facility] (DEFAULT) [address] [place] [address] Hematocrit (Bld) [Volume fraction] 41.8 % High 33.7-40.4 [facility] Comment on above: Performed By: #### 1 [id number], [id number], [id number] #### [facility] (DEFAULT) [address] [place] [address] Hemoglobin (Bld) [Mass/Vol] 14.0 g/dL Normal 11.3-15.9 [facility] [facility] Comment on above: Performed By: #### 4 [id number], [id number], [id number] #### [facility] (DEFAULT) [address] [place] [address] Man Diff? Auto Invalid Interpretation Code [facility] Comment on above: Performed By: #### 3 [id number], [id number], [id number] #### [facility] (DEFAULT) [address] [place] [address] 51647 MCH (RBC) [Entitic mass] 29 pg Normal 24-34 [facility] Comment on above: Performed By: #### 4 [id number], [id number], [id number] #### [facility] (DEFAULT) [address] [place] [address] 61522 MCHC (RBC) [Mass/Vol] 34 g/dL Normal 26-37 [facility] Comment on above: Performed By: #### 8 [id number], [id number], [id number] #### [facility] (DEFAULT) [address] [place] [address] 22096 MCV (RBC) [Entitic vol] 87 fL Normal 81-100 [facility] Comment on above: Performed By: #### 5 [id number], [id number], [id number] #### [facility] (DEFAULT) [address] [place] [address] Platelet 280 x10 Normal 138-427 [facility] Comment on above: Performed By: #### 5 [id number], [id number], [id number] #### [facility] (DEFAULT) [address] [place] [address] Platelet mean volume (Bld) [Entitic vol] 8.0 fL Normal 6.3-10.2 [facility] Comment on above: Performed By: #### 3 [id number], [id number], [id number] #### [facility] (DEFAULT) [address] [place] [address] RBC 4.83 x10 Normal 3.70-5.30 [facility] Comment on above: Performed By: #### 1 [id number], [id number], [id number] #### [facility] (DEFAULT) [address] [place] [address] WBC 10.3 x10 Normal 3.5-10.5 [facility] Comment on above: Performed By: #### 4 [id number], [id number], [id number] #### [facility] (DEFAULT) [address] [place] [address] 05878 Free T4on 11-17-2022 Free T4 [Mass/Vol] 1.06 ng/dL Normal 0.61-1.12 [facility] Comment on above: Performed By: #### 1 [id number], [id number], [id number] #### [facility] (DEFAULT) [address] [place] [address] 32044 HgbA1c Standardon 11-17-2022 .Hb 15.7 Invalid Interpretation Code [facility] Comment on above: Performed By: #### 1 [id number], [id number], [id number] #### [facility] (DEFAULT) [address] [place] [address] .Hgb A1c 0.55 g/dL Invalid Interpretation Code [facility] Comment on above: Performed By: #### 9 [id number], [id number], [id number] #### [facility] (DEFAULT) [address] [place] [address] Glucose [Mass/Vol] 105 mg/dL Invalid Interpretation Code [facility] Comment on above: Performed By: #### 4 [id number], [id number], [id number] #### [facility] (DEFAULT) [address] [place] [address] HbA1c (Bld) [Mass fraction] 5.3 % Normal 4.6-6.2 [facility] Comment on above: Performed By: #### 7 [id number], [id number], [id number] #### [facility] (DEFAULT) [address] [place] [address] Provider Orderson 11-17-2022 Provider Orders [id number] 07#1.00OTGTIFF Normal [facility] TSHon 11-17-2022 TSH Qn 1.26 m[IU]/L Normal 0.45-5.33 [facility] Comment on above: Performed By: #### 3 [id number], [id number], [id number] #### [facility] (DEFAULT) [address] [place] [address] hCG Quantitativeon hCG Quantitative <0.6 Normal 0.0-0.6 [facility] Comment on above: Result Comment: Post -Menopausal Reference Range is: 0.1-11.6 mIU/mL Performed By: #### 2 [id number], [id number], [id number] #### [facility] (DEFAULT) [address] [place] [address] Lab - Toxicology Resultson 10-20-2022 Lab - Toxicology Results [id number] 1#1.00OTGTIFF Normal [facility] QuantiFERON-TB Gold Pluson 0 10-20-2022 QuantiFERON-TB Gold Plus Negative Invalid Interpretation Code Negative [facility] Comment on above: Result Comment: No r esponse to M tuberculosis antigens detected. Infection with M tuberculosis is unlikely, but high risk individuals should be considered for additional testing (ATS/IDSA/CDC Clinical Practice Guidelines, 2017). The reference range is an Antigen minus Nil result of <0.35 IU/mL. Chemiluminescence immunoassay methodology Performed At: [address] [id number] Bibi Irwin PhD Ph:[phone] Performed By: #### 4 [id number], [id number], [id number] #### [facility] (DEFAULT) [address] [place] [address] QuantiFERON Incubation Incubation performed. Invalid Interpretation Code [facility] Comment on above: Result Comment: Perf ormed At: [address] [id number] Bibi Irwin PhD Ph:[phone] Performed By: #### 2 [id number], [id number], [id number] #### [facility] (DEFAULT) [address] [place] [address] HBSab Qnt LCon 10-19-2022 Hep B Surf Ab Quant LC <3.1 Low Immunity>9.9 [facility] Comment on above: Result Comment: Stat us of Immunity Anti-HBs Level Inconsistent with Immunity 0.0 - 9.9 Consistent with Immunity >9.9 Performed At: [address] [id number] Bibi Irwin PhD Ph:[phone] Performed By: #### 8 [id number], [id number], [id number] #### [facility] (DEFAULT) [address] [place] [address] 15018 Measles/Mumps/Rubella Immuni ty LCon 10-19-2022 Mumps Abs, IgG LC 132.0 AU/mL Invalid Interpretation Code Immune >10.9 [facility] Comment on above: Result Comment: Nega tive <9.0 Equivocal 9.0 - 10.9 Positive >10.9 A positive result generally indicates past exposure to Mumps virus or previous vaccination. Performed At: [address] [id number] Bibi Irwin PhD Ph:[phone] Performed By: #### 4 [id number], [id number], [id number] #### [facility] (DEFAULT) [address] [place] [address] 65699 Rubella Antibodies, IgG LC 1.78 index Invalid Interpretation Code Immune >0.99 [facility] Comment on above: Result Comment: Non- immune <0.90 Equivocal 0.90 - 0.99 Immune >0.99 Performed By: #### 7 [id number], [id number], [id number] #### [facility] (DEFAULT) [address] [place] [address] 93767 Rubeola Ab, IgG, EIA LC >300.0 Invalid Interpretation Code Immune >16.4 [facility] Comment on above: Result Comment: Nega tive <13.5 Equivocal 13.5 - 16.4 Positive >16.4 Presence of antibodies to Rubeola is presumptive evidence of immunity except when acute infection is suspected. Performed By: #### 6 [id number], [id number], [id number] #### [facility] (DEFAULT) [address] [place] [address] 23549 Nicotine Metabolite, Urine L Con 10-19-2022 Cotinine LC Negative Invalid Interpretation Code [id number] [facility] Comment on above: Result Comment: Perf ormed At: [facility] [place] [address] [place], [place] [id number] Rachel Garcia PhD Ph:[phone] Performed By: #### 0 [id number], [id number], [id number] #### [facility] (DEFAULT) [address] [place] [address] 26072 US Pelvic Complete w/Transva ginalon 06-21-2022 US [...] by Pepito Martins on 06/22/2022 1125 Normal [facility] XR Abdomen Single View (KUB) *on 06-18-2022 XR Abdomen Single View (KUB)* COMPARISON: NONE. FINDINGS: The bowel gas pattern is unremarkable. There are no dilated loops of bowel. There are no acute osseous changes. IMPRESSION: There are no acute changes. Report reported and signed by ALONSO PADRON on 06/19/2022 1201 Normal [facility] CBC AUTO DIFFon 12-12-2020 BASO # 0.1 103/ul Normal 0.0-0.1 [facility] Comment on above: Performed By: #### C BC #### [facility] [address] [place] [address] Jatin Tracey Basophils/100 WBC (Bld) 0.7 % Normal 0.2-2.0 [facility] Comment on above: Performed By: #### C BC #### [facility] [address] [place], [place] [address] Jatin Tracey EO # 0.4 103/ul Normal 0.0-0.7 [facility] Comment on above: Performed By: #### C BC #### [facility] [address] [place] [address] Jatin Tracey Eosinophils/100 WBC (Bld) 3.4 % Normal 0.9-7.0 [facility] Comment on above: Performed By: #### C BC #### [facility] [address] [place] [address] Jatin Tracey Erythrocyte distribution width (RBC) [Ratio] 11.8 % Normal 11.0-15.0 [facility] Comment on above: Performed By: #### C BC #### [facility] [address] [place] [address] Jatin Tracey Hematocrit (Bld) [Volume fraction] 42.6 % Normal 36.0-48.0 [facility] Comment on above: Performed By: #### C BC #### [facility] [address] [place] [address] Jatin Tracey Hemoglobin (Bld) [Mass/Vol] 14.3 g/dL Normal 12.0-16.0 [facility] Comment on above: Performed By: #### C BC #### [facility] [address] [place] [address] Jatin Tracey IG # 0.03 10e3/ul Normal 0.00-0.03 [facility] Comment on above: Performed By: #### C BC #### [facility] [address] [place] [address] Jatin Tracey IG % 0.3 % Normal 0.0-0.5 [facility] Comment on above: Performed By: #### C BC #### [facility] [address] [place] [address] Jatin Tracey LYMPH # 2.2 103/ul Normal 1.2-3.8 [facility] Comment on above: Performed By: #### C BC #### [facility] [address] [place], [place] [address] Jatin Tracey Lymphocytes/100 WBC (Bld) 20.7 % Normal 20.5-60.0 [facility] Comment on above: Performed By: #### C BC #### [facility] [address] [place] [address] Jatin Tracey MANUAL DIFF REQ NO Normal [facility] Comment on above: Performed By: #### C BC #### [facility] [address] [place], [place] [address] Jatin Webb MCH (RBC) [Entitic mass] 30.4 pg Normal 26.7-34.0 [facility] Comment on above: Performed By: #### C BC #### [facility] [address] [place] [address] Jatin Webb MCHC (RBC) [Mass/Vol] 33.6 g/dL Normal 29.9-35.2 [facility] Comment on above: Performed By: #### C BC #### [facility] [address] [place] [address] Jatin Webb MCV (RBC) [Entitic vol] 90.4 fL Normal 81.0-99.0 [facility] Comment on above: Performed By: #### C BC #### [facility] [address] [place] [address] Jatin Webb MONO # 0.6 103/ul Normal 0.3-0.8 [facility] Comment on above: Performed By: #### C BC #### [facility] [address] [place] [address] Jatin Webb Monocytes/100 WBC (Bld) 6.0 % Normal 1.7-12.0 [facility] Comment on above: Performed By: #### C BC #### [facility] [address] [place] [address] Jatin Webb NEUT # 7.3 103/ul Critically high 1.4-6.5 [facility] Comment on above: Performed By: #### C BC #### [facility] [address] [place], [place] [address] Jatin Webb Neutrophils/100 WBC (Bld) 68.9 % Normal 43.0-75.0 [facility] Comment on above: Performed By: #### C BC #### [facility] [address] [place], [place] [address] Jatin Webb Platelet mean volume (Bld) [Entitic vol] 9.7 fL Normal 9.5-13.5 [facility] Comment on above: Performed By: #### C BC #### [facility] [address] [place], [place] [address] Jatin Vergaraen PLT 252 103/ul Normal 150-450 [facility] Comment on above: Performed By: #### C BC #### [facility] [address] [place], [place] [address] Jatin Vergaraen RBC 4.71 106/ul Normal 4.20-5.40 [facility] Comment on above: Performed By: #### C BC #### [facility] [address] [place], [place] [address] Jaitn Vergaraen WBC 10.6 103/ul Normal 4.0-11.0 [facility] Comment on above: Performed By: #### C BC #### [facility] [address] [place] [address] [address] ABD/PELV W CONon 12-13-19 [...] Sabiha RUSHING Date: 2020-12-12 04:08 Normal [facility] PREG HCG QUALon 12-12-2020 , QUAL Negative Normal NEGATIVE [facility] Comment on above: Performed By: #### P REG #### [facility] [address] [place], [place] [address] Jatinandrez Webb PROF 14(COMP METB)on 021 Albumin [Mass/Vol] 3.9 g/dL Normal 3.5-5.0 [facility] Comment on above: Performed By: #### C MP #### [facility] [address] [place], [place] [address] Jatin Tracey Albumin/Globulin [Mass ratio] 1.1 {ratio} Normal [facility] Comment on above: Performed By: #### C MP #### [facility] [address] [place], [place] [address] Jatin Tracey ALP [Catalytic activity/Vol] 93 U/L Normal 38-126 [facility] Comment on above: Performed By: #### C MP #### [facility] [address] [place] [address] Jatin Tracey ALT [Catalytic activity/Vol] 16 U/L Normal 9-52 [facility] Comment on above: Performed By: #### C MP #### [facility] [address] [place], [place] [address] Jatin Tracey Anion gap [Moles/Vol] 17.1 mmol/L Normal [facility] Comment on above: Performed By: #### C MP #### [facility] [address] [place], [place] [address] Jatin Tracey AST [Catalytic activity/Vol] 3 U/L Critically low 14-36 [facility] Comment on above: Performed By: #### C MP #### [facility] [address] [place], [place] [address] Jatin Tracey Bilirubin [Mass/Vol] 0.3 mg/dL Normal 0.2-1.3 [facility] Comment on above: Performed By: #### C MP #### [facility] [address] [place], [place] [address] Jatin Tracey Calcium [Mass/Vol] 8.9 mg/dL Normal 8.4-10.2 [facility] Comment on above: Performed By: #### C MP #### [facility] [address] [place] [id number] Jatin Tracey Chloride [Moles/Vol] 106 mmol/L Normal 98-107 [facility] Comment on above: Performed By: #### C MP #### [facility] [address] [place] [address] Jatin Tracey CO2 [Moles/Vol] 23.0 mmol/L Normal 22.0-30.0 [facility] Comment on above: Performed By: #### C MP #### [facility] [address] [place] [address] Jatin Tracey Creatinine [Mass/Vol] 0.76 mg/dL Normal 0.52-1.04 [facility] Comment on above: Performed By: #### C MP #### [facility] [address] [place], [place] [address] Jatin Tracey EGFR-AF IVORIAN >60 Normal >=60 [facility] Comment on above: Performed By: #### C MP #### [facility] [address] [place] [address] Jatin Tracey EGFR-NON AF IVORIAN >60 Normal >=60 [facility] Comment on above: Performed By: #### C MP #### [facility] [address] [place], [place] [address] Jatin Tracey Globulin (S) [Mass/Vol] 3.7 g/dL Normal [facility] Comment on above: Performed By: #### C MP #### [facility] [address] [place] [address] Jatin Tracey Glucose [Mass/Vol] 96 mg/dL Normal 74-106 The [facility] Comment on above: Performed By: #### C MP #### [facility] [address] [place], [place] [address] Jatin Tracey Potassium [Moles/Vol] 4.1 mmol/L Normal 3.4-5.0 [facility] Comment on above: Performed By: #### C MP #### [facility] [address] [place] [address] Jatin Tracey Protein [Mass/Vol] 7.6 g/dL Normal 6.1-8.2 The [facility] Comment on above: Performed By: #### C MP #### [facility] [address] [place] [address] Jatin Webb Sodium [Moles/Vol] 142 mmol/L Normal 137-145 [facility] Comment on above: Performed By: #### C MP #### [facility] [address] [place] [address] Jatinandrez Webb Urea nitrogen [Mass/Vol] 14.0 mg/dL Normal 6.4-19.3 [facility] Comment on above: Performed By: #### C MP #### [facility] [address] [place] [address] Jatin Webb Urea nitrogen/Creatinine [Mass ratio] 18.4 mg/mg Normal [facility] Comment on above: Performed By: #### C MP #### [facility] [address] [place] [address] Jatin Webb PROTIMEon 12-12-2020 INR Coag (PPP) [Relative time] 1.00 {INR} Normal [facility] Comment on above: Performed By: #### P TT, PT #### [facility] [address] [place] [address] Jatin Webb INR GUIDELINES SEE BELOW Normal [facility] Comment on above: Result Comment: MAHESH RED INR: 2.0 - 3.0 CONDITIONS NOT LISTED BELOW 2.5 - 3.5 FOR PROSTHETIC HEART VALVE REPLACEMENT 2.5 - 3.5 RECURRENT THROMBOSIS Performed By: #### P TT, PT #### [facility] [address] [place] [address] Jatinandrez Webb PT Coag (PPP) [Time] 10.8 s Normal 9.0-11.6 [facility] Comment on above: Performed By: #### P TT, PT #### [facility] [address] [place] [address] Jatin Webb PTTon 12-12-2020 aPTT Coag (Bld) [Time] 26.2 s Normal 22.3-36.2 [facility] Comment on above: Performed By: #### P TT, PT #### [facility] [address] [place] [address] Jatin Webb XR CHEST 1 Von 12-12-2020 XR CHEST 1 V EXAM: XR CHEST 1 V HISTORY: Chest pain left-sided rib pain COMPARISON: None. TECHNIQUE: Single frontal view chest x-ray FINDINGS: No lobar consolidation, large effusions, pneumothorax, or discrete acute bony abnormality. Cardiac size unremarkable. IMPRESSION: No radiographic evidence for acute chest abnormality. Electronically authenticated by: ODALIS BRICENO Date: 2020-12-12 03:25 Normal [facility] Vital Signs Date Time Vital Sign Value Performing Clinician Ralph llamas 02-23-2024 13:55-0400 Body mass index (BMI) [Ratio] 40.51 kg/m2 Yaritza Portillo PA Work Phone: [facility] 02-23-2024 13:55-0400 Body weight 107.05 kg Yaritza Portillo PA Work Phone: [facility] 02-23-2024 13:55-0400 Diastolic blood pressure 74 mm[Hg] Yaritza Herndon PA Work Phone: [facility] 02-23-2024 13:55-0400 Systolic blood pressure 118 mm[Hg] Yaritza Herndon PA Work Phone: [facility] 02-07-2024 10:54-0400 Body mass index (BMI) [Ratio] 39.95 kg/m2 Yaritza Lindsey PA Work Phone: [facility] 02-07-2024 10:54-0400 Body weight 105.58 kg Yaritza Herndon PA Work Phone: [facility] 02-07-2024 10:54-0400 Diastolic blood pressure 72 mm[Hg] Yaritza Lindsey PA Work Phone: [facility] 02-07-2024 10:54-0400 Systolic blood pressure 116 mm[Hg] Yaritza Herndon PA Work Phone: [facility] Healthcare Encounters Encounter Date Encounter Type Care Provider Facility Start: 03-08-2024 End: 03-08-2024 ambulatory WALDO CONRADO Not Available Start: 02-23-2024 End: 02-23-2024 Bamboo flowsheet Yaritza CAMARILLO Work Phone: [facility] Start: 02-23-2024 End: 02-23-2024 Bamboo flowsheet Yaritza CAMARILLO Work Phone: [facility] Start: 02-23-2024 End: 02-23-2024 ambulatory YARITZA PORTILLO Not Available Start: 02-23-2024 End: 02-23-2024 flow sheet Yartiza CAMARILLO Work Phone: [facility] Comment on above: Third trimester preg lakeisha; 30 weeks gestation of Start: 02-07-2024 End: 02-07-2024 Bamboo flowsheet Yaritza CAMARILLO Work Phone: [facility] Start: 02-07-2024 End: 02-07-2024 Bamboo flowsheet Yaritza CAMARILLO Work Phone: [facility] Start: 02-07-2024 End: 02-07-2024 ambulatory YARITZA PORTILLO Not Available Start: 02-07-2024 End: 02-07-2024 flow sheet Yaritza CAMARILLO Work Phone: [facility] Comment on above: Second trimester [...] Available Start: 12-14-2023 End: 12-14-2023 ambulatory YARITZA LINDSEY Not Available Start: 10-31-2023 End: 10-31-2023 ambulatory WALDO CONRADO Not Available Start: 10-06-2023 End: 10-06-2023 ambulatory WALDO R CONRADO Facility:[facility] Start: 09-29-2023 End: 09-29-2023 ambulatory SARAH NELSON Not Available Start: 08-02-2023 End: 08-02-2023 ambulatory SARAH NELSON Not Available Start: 04-22-2023 End: 04-22-2023 ambulatory [facility] Facility:[facility] Start: 04-13-2023 End: 04-13-2023 ambulatory SARAH NELSON Not Available Start: 01-10-2023 End: 01-10-2023 ambulatory [facility] Facility:[facility] Start: 12-11-2022 ambulatory [facility] Facility:[facility] Start: 11-29-2022 End: 11-29-2022 ambulatory [facility] Facility:[facility] Start: 11-17-2022 End: 11-17-2022 ambulatory WALDO R [facility] Facility:[facility] Start: 10-18-2022 End: 10-18-2022 ambulatory [facility] Facility:[facility] Start: 12-12-2020 End: 12-12-[address] BRANDON LE Facility:[facility] Procedures Date Procedure Procedure Detail Performing Clinician Start: 02-23-2024 Urnls dip stick/tabl et rgnt non-auto w/o micrscp Yaritza CAMARILLO Work Phone: Start: 02-07-2024 Urnls dip stick/tabl et rgnt non-auto w/o micrscp Yaritza CAMARILLO Work Phone: Start: 02-06-2024 GLUCOSE 1 HOUR Waldo peterso DO Work Phone: Start: 12-14-2023 Cytp cerv/vag auto t hin layer prep mnl screen Waldo Rojo DO Work Phone: Plan of Treatment Date Care Activity Detail Author Start: 03-08-2024 End: 03-08-2024 Patient encounter procedure 03/08/2024 11:00 AM EST Routine [facility] [address] [place] [address] Waldo Rojo DO [address] [address] [place] [address] [facility] Start: 02-23-2024 End: 02-23-2024 Patient encounter procedure 02/23/2024 1:30 PM EDT Routine [facility] [address] [facility] [place] [id number] Yaritza Portillo PA [address] [facility] [address] [place], [place] [id number] [facility] Start: 02-08-2024 End: 02-08-2024 Patient encounter procedure 02/08/2024 1:50 PM EDT Routine [facility] [address] [facility] [place] [id number] Yaritza Portillo PA [address] [facility] [address] [place], [place] [id number] [facility] BCP OB Start: 02-07-2024 End: 02-06-2025 US for US OB SCAN FOR GROWTH Imaging Routine Excessive growth affecting management of , antepartum, single or unspecified fetus Expected: 02/07/2024 (Approximate), Expires: 02/06/2025 [facility] Work Phone: Comment on above: Expected: 02/07/2024 (Approximate), Expires: 02/06/2025 Start: 12-25-2023 Influenza vaccination Influenza Vacc ine (#1) [facility] Immunizations Immunization Date Immunization Notes Care Provider Fa dillon 03-01-2014 hepatitis A vaccine, pediatric/adolescent dosage, 2 dose schedule Generic Provider [facility] 07-26-2013 hepatitis A vaccine, pediatric/adolescent dosage, 2 dose schedule Generic Provider [facility] 07-26-2013 meningococcal polysa ccharide (groups A, C, Y and W-135) diphtheria toxoid conjugate vaccine (MCV4P) Generic Provider [facility] 07-26-2013 tetanus toxoid, redu mary beth diphtheria toxoid, and acellular pertussis vaccine, adsorbed Generic Provider [facility] 07-26-2013 varicella virus vaccine Generic Prov ider [facility] 05-16-2012 influenza virus vacc ine, whole virus Generic Provider [facility] 05-16-2012 influenza virus vacc ine, unspecified formulation Generic Provider [facility] 02-12-2009 novel influenza-H1N1 -09, preservative-free, injectable Generic Provider [facility] 04-29-2008 influenza virus vacc ine, whole virus Generic Provider [facility] 03-29-2007 influenza, seasonal, injectable Generic Provider [facility] 09-15-2006 diphtheria, tetanus toxoids and acellular pertussis vaccine, 5 pertussis antigens Generic Provider [facility] 09-15-2006 haemophilus influenz ae type b vaccine, HbOC conjugate Generic Provider [facility] [place] 09-15-2006 measles, mumps and r ubella virus vaccine Generic Provider [facility] 09-15-2006 poliovirus vaccine, inactivated Generic Provider [facility] 07-30-2002 diphtheria, tetanus toxoids and acellular pertussis vaccine, unspecified formulation Generic Provider [facility] 07-30-2002 haemophilus influenz ae type b vaccine, conjugate unspecified formulation Generic Provider [facility] 07-30-2002 measles, mumps and r ubella virus vaccine Generic Provider [facility] 07-30-2002 varicella virus vaccine Generic Prov ider [facility] 2001 diphtheria, tetanus toxoids and acellular pertussis vaccine, unspecified formulation Generic Provider [facility] 2001 haemophilus influenz ae type b vaccine, conjugate unspecified formulation Generic Provider [facility] 2001 hepatitis B vaccine, pediatric or pediatric/adolescent dosage Generic Provider [facility] 2001 poliovirus vaccine, unspecified formulation Generic Provider [facility] 2001 diphtheria, tetanus toxoids and acellular pertussis vaccine, unspecified formulation Generic Provider [facility] 2001 haemophilus influenz ae type b vaccine, conjugate unspecified formulation Generic Provider [facility] 2001 pneumococcal conjuga te vaccine, 7 valent Generic Provider [facility] 2001 poliovirus vaccine, unspecified formulation Generic Provider [facility] 2001 diphtheria, tetanus toxoids and acellular pertussis vaccine, unspecified formulation Generic Provider [facility] 2001 haemophilus influenz ae type b vaccine, conjugate unspecified formulation Generic Provider [facility] 2001 hepatitis B vaccine, pediatric or pediatric/adolescent dosage Generic Provider [facility] are 2001 poliovirus vaccine, unspecified formulation Generic Provider [facility] 2001 hepatitis B vaccine, pediatric or pediatric/adolescent dosage Generic Provider [facility] are Payers Date Payer Category Payer Unknown [id number] 2022 Unknown 2022 Medicaid (Managed Care) [employer] [id number] [id number] 2022 Unknown [id number] 2001 Unknown [id number] 2.16.840.1.234683.3.579.2. 593 2001 Unknown [id number] 2.16.840.1.320605.3.579.2. 718 2001 Unknown [id number] 2.16.840.1.600317.3.579.2. 718 2001 Unknown [id number] 2.16.840.1.344446.3.579.2. 718 2001 Unknown [id number] 2.16.840.1.808168.3.579.2. 718 2001 Unknown [id number] 2.16.840.1.453361.3.579.2. 718 2001 Unknown [id number] 2.16.840.1.153079.3.579.2. 9 2001 Unknown [id number] 2.16.840.1.264905.3.579.2. 1258 2001 Unknown [id number] 2.16.840.1.007129.3.579.2. 1258 2001 Unknown [id number] 2.16.840.1.388665.3.579.2. 1258 2001 Unknown [id number] 2.16.840.1.247380.3.579.2. 1258 2001 Unknown [id number] 2.16.840.1.156138.3.579.2. 1258 2001 Unknown [id number] 2.16.840.1.852759.3.579.2. 9 2001 Unknown [id number] 2.16.840.1.597794.3.579.2. 1258 2001 Unknown [id number] 2.16.840.1.738751.3.579.2. 9 1959 Unknown [id number] 1959 Unknown [id number] Social History Date Type Detail Facility Start: 04-13-2023 Tobacco smoking status MIIS Ex-smoke r [facility] History of tobacco use Current smoker [facility] History of tobacco use Cigarette Smoker [facility] Start: 04-13-2023 Tobacco use and exposure User of smokeless tobacco [facility] Start: 01-12-2024 End: 10-31-2024 Alcoholic beverage intake Current drinker of alcohol [...] Sex assigned at Not on file [facility] History of Present illness Narrative 02-23-2024 MARQUISE Scott - 02/23/2024 1:30 PM EDT Note Date & Type Note Facility 02-23-2024 History of Presen t illness Narrative Reason for Appointment: Patient ID: Brynn Wallace is a 23 y.o. female who presents for Routine Visit Patient presents today for Return OB appointment. MEDICATIONS Current Outpatient Medications Medication Instructions metoclopramide (REGLAN) 10 mg, Oral, 3 times daily ondansetron ODT (ZOFRAN-ODT) 4 mg, Oral, Every 4 hours PRN ALLERGIES Allergies Allergen Reactions Buspirone Other Reaction(s): Increased anxiety/hallucinations Cholestatin Other Reaction(s): Unknown Lurasidone Other Reaction(s): restlessness Latuda Other Unknown PROBLEMS Active Ambulatory Problems Diagnosis Date Noted Attention deficit hyperactivity disorder (ADHD) ([facility]) 08/30/2022 Bipolar II disorder ([facility]) 08/30/2022 Acute non intractable tension-type headache 12/11/2019 Adjustment disorder with depressed mood ([facility]) 12/11/2019 Allergic rhinitis 11/23/2018 Amenorrhea 02/23/2021 Anxiety 03/23/2016 Attention deficit 03/04/2023 Chronic fatigue 03/04/2023 Chronic gastritis without bleeding 03/04/2023 Dysfunction of both eustachian tubes 12/07/2018 Dyspareunia due to medical condition in female 03/04/2023 Gastritis and duodenitis 06/03/2015 [place]ing [place] 03/04/2023 Infertility, female 03/04/2023 Menstrual cramps 07/04/2017 Pelvic congestion syndrome 03/04/2023 Slow transit constipation 04/11/2017 Vitamin D deficiency 03/13/2019 Migraine with aura and with status migrainosus, not intractable ([facility] 05/27/2020 Mixed anxiety and depressive disorder 12/25/2019 [...] tube, bilateral Adjustment disorder with depressed mood ([facility] 12/11/2019 Allergic rhinitis unspecified seasonality, unspecified trigger [...] Gastrointestinal: Negative. Genitourinary: Negative. Musculoskeletal: Negative. Skin: Negative. Neurological: Negative. All other systems reviewed and are negative. Hematological: Negative. Endocrine: Negative. Allergic/Immunologic: Negative. OBJECTIVE Objective: Physical Exam Constitutional: Appearance: Normal appearance. She is normal weight. HENT: Head: Normocephalic. Cardiovascular: Rate and Rhythm: Normal rate. Pulses: Normal pulses. Pulmonary: Effort: Pulmonary effort is normal. Breath sounds: Normal breath sounds. Abdominal: Palpations: Abdomen is soft. Musculoskeletal: General: Normal range of motion. Neurological: General: No focal deficit present. Mental Status: She is alert and oriented to person, place, and time. Psychiatric: Mood and Affect: Mood normal. Behavior: Behavior normal. Thought Content: Thought content normal. Judgment: Judgment normal. Vitals and nursing note reviewed. Vitals: Estimated body mass index is 40.51 kg/m as calculated from the following: Height as of 08/02/23: 5' 4 . Weight as of this encounter: 236 lb. BP: 118/74 No LMP recorded. Patient is . ASSESSMENT & PLAN ICD-10-CM 1. Third trimester Z34.93 POCT urinalysis dipstick manually resulted 2. 30 weeks gestation of Z3A.30 Return OB: Patient presents today for a routine obstetrics appointment. Patient is currently 30w4d . Patient states she is doing well but has complaints of being tired due to current . Patient has verbalizes frequent movement. labor precautions was discussed/given and patient was instructed to perform kick counts three times a day. Orders Placed This Encounter Procedures POCT urinalysis dipstick manually resulted Follow Up: Patient is to return to office in 2 week for routine OB appointment. Documented by Linda Lala MA on behalf of: MARQUISE Scott documented in this encounter [facility] History of Present illness Narrative 02-07-2024 [...] Date Noted Attention deficit hyperactivity disorder (ADHD) ([facility] 08/30/2022 Bipolar II disorder [place] 08/30/2022 Acute non intractable tension-type headache 12/11/2019 Adjustment disorder with depressed mood ([facility] 12/11/2019 Allergic rhinitis 11/23/2018 Amenorrhea 02/23/2021 Anxiety 03/23/2016 Attention deficit 03/04/2023 Chronic fatigue 03/04/2023 Chronic gastritis without bleeding 03/04/2023 Dysfunction of both eustachian tubes 12/07/2018 Dyspareunia due to medical condition in female 03/04/2023 Gastritis and duodenitis 06/03/2015 Grieving ([facility] 03/04/2023 Infertility, female 03/04/2023 Menstrual cramps 07/04/2017 Pelvic congestion syndrome 03/04/2023 Slow transit constipation 04/11/2017 Vitamin D deficiency 03/13/2019 Migraine with aura and with status migrainosus, not intractable ([facility] 05/27/2020 Mixed anxiety and depressive disorder 12/25/2019 [...] tube, bilateral Adjustment disorder with depressed mood ([facility] 12/11/2019 Allergic rhinitis unspecified seasonality, unspecified trigger [...] nursing note reviewed. Exam conducted with a critical care educator present. Vitals: Estimated body mass index is 39.95 kg/m as calculated from the following: Height as of 24: 5' 4 . Weight as of this [...] of: MARQUISE Scott documented in this encounter [facility] Clinical Note 01-10-2023 Note Date & Type [...] these instructions at home: Medicines ? Take twee-lfw-xqhxiwm and prescription medicines only as told by [...] and water are not available, use hand filling machine tender. Contact a health care provider if: ? [...] can cause a sore throat. ? Take nhlq-wti-axzifid medicines only as told by your health [...] provider. Document Revised: 07/08/2021 Document Reviewed: 07/08/2021 [employer] Patient Education ? 2022 [employer] Viral Illness, Adult Viruses are tiny [...] person who is (more content not included)... [facility] Evaluation note Note Date & Type Note Facility Evaluation note Diagnosis Second trimester state, incidental 28 weeks gestation of Heartburn during in third trimester Skin yeast infection Candidiasis of skin and nails Excessive growth affecting management of , antepartum, single or unspecified fetus documented in this encounter [facility] Evaluation note Note Date & Type Note Facility Evaluation note Diagnosis Third trimester state, incidental 30 weeks gestation of documented in this encounter [facility] Summary Purpose Family History No Family History Records FoundNo Family History Records FoundNo Family History Records FoundNo Family History Records Found Advance Directives No Advanced Directives Records FoundNo Advanced Directives Records FoundNo Advanced Directives Records FoundNo Advanced Directives Records Found Additional Source Comments INFORMATION SOURCE (unrecogn ized section and content) DATE CREATED AUTHOR 12/15/2020 [facility] DATE CREATED AUTHOR AUTHOR'S ORGANIZ ATION 06/23/2022 [facility] dical Specialist DATE CREATED AUTHOR AUTHOR'S ORGANIZ ATION 10/13/2023 [facility] DATE CREATED AUTHOR AUTHOR'S ORGANIZ ATION 03/10/2024 [facility] dical Specialists EPIC Care Teams (unrecognized sec tion and content) Dye Room Helper Relationship Specialty Start Date End Date Jeannie Reynolds MD [address] [place] [address] PCP - General Family Medicine 09/21/22 Sarah Nelson NP [address] [place] [address] Nurse Practitioner Family Medicine 09/21/22 Dye Room Helper Relationship Specialty Start Date End Date Jeannie Reynolds MD [address] [place] [id number] PCP - General Family Medicine 09/21/22 Sarah Nelson NP [address] [place] [address] Nurse Practitioner Family Medicine 09/21/22 Dye Room Helper Relationship Specialty Start Date End Date Jeannie Reynolds MD [address] [place] [id number] PCP - General Family Medicine 09/21/22 Sarah Nelson NP [address] [place] [address] Nurse Practitioner Family Medicine 09/21/22 Dye Room Helper Relationship Specialty Start Date End Date Jeannie Reynolds MD [address] [place] [id number] PCP - General Family Medicine 09/21/22 Anila Schneider, INFUSION RN-PULP GRINDER FEEDER [address] [place] [address] [address] [place] [address] PCP - [facility] 08/23/22 Sarah Nelson NP [address] [place] [address] Nurse Practitioner Family Medicine 09/21/22 Dye Room Helper Relationship Specialty Start Date End Date Jeannie Reynolds MD [address] [place] [address] PCP - General Family Medicine 09/21/22 Anila Schneider APRN-PULP GRINDER FEEDER [address] [facility] [address] [place] [address] PCP - [facility] 08/23/22 Sarah Nelson NP [address] [facility] [place] [address] Nurse Practitioner Family Medicine 09/21/22 Reason for [...] BE BASED ON THE PRIMARY CLINICAL RECORDS. [employer] provides no warranty or guarantee of the accuracy or completeness of information in this document.
[2024-03-15 14:43] LABS: Bilirubin Urine NEGATIVE (NEGATIVE); Blood Urine SMALL (NEGATIVE); Clarity Urine CLEAR (CLEAR); Color Urine YELLOW (YELLOW); Glucose Urine UA NEGATIVE (NEGATIVE); Ketones Urine TRACE mg/dL (NEGATIVE); Leukocyte Esterase Urine SMALL (NEGATIVE); Nitrite Urine NEGATIVE (NEGATIVE); Protein Urine TRACE mg/dL (NEG/TRACE); Specific Gravity Urine 1.025 (1.005-1.025)
[2024-03-15 14:44] LABS: Urine Microscopic Indicated YES
[2024-03-15 14:50] LABS: Amnisure NEGATIVE (NEGATIVE); Internal Control Within Normal Limits
[2024-03-15 14:52] LABS: Bacteria Urine MODERATE #/HPF (NONE SEEN); Calcium Oxalate Crystals Urine MODERATE; Cast Seen? SEEN #/LPF (NONE SEEN); Crystals Seen? Seen #/HPF (None Seen); Hyaline Casts Urine RARE; Mucus Urine TRACE (NONE SEEN); Squamous Epithelial Cell Urine FEW #/LPF (NONE/RARE); Urine Culture Indicated YES; WBC Urine 0-2 #/HPF (NONE SEEN)
--- NOTE | 2024-03-15 15:04 | US_ITS ---
[place] [id number] Patient Name: BRYNN WALLACE MRN: [id number] date: 2000 Sex: F Assigned Patient Location: [facility] Current Patient Location: [facility] Accession/Order Number: [id number] Exam Date: 03/15/2024 15:40 Report Date: 03/15/2024 16:41 At the request of: WALDO CAMP Procedure: US OB BPP w non-stress EXAMINATION: US OB BPP w non-stress HISTORY:decreased movement abd. pain COMPARISON: No relevant comparison available. TECHNIQUE: Ultrasound biophysical profile was performed in the radiology department. BREATHING MOVEMENTS: 2 GROSS BODY MOVEMENTS: 2 TONE: 2 QUALITATIVE AMNIOTIC FLUID VOLUME: 2 PRESENTATION: CEPHALIC HEART RATE: 121.70 bpm AMNIOTIC FLUID VOLUME: 11.36 cm GESTATIONAL AGE: 33 weeks 4 days US/US OB BPP w non-stress IMPRESSION: Total biophysical profile score: 8 Electronically authenticated by: RUFUS CHOUDHURY Date: 03/15/2024 16:41
[2024-03-15] MEDS: CEFAZOLIN SODIUM/DEXTROSE,ISO 2 GM/50 ML PIGGYBACK IV (15:21)
[2024-03-15] MEDS: 0.9 % SODIUM CHLORIDE 1,000 ML 1000 ML IV (15:22)
== END 2024-03-15 17:45 | disposition home or self-care (01) ==
LOC: FBC 14:12
PROVIDERS: Admitting Provider Obstetrics & Gynecology; PCP Family Medicine; Visit Provider Obstetrics & Gynecology
DX: O26.893 Other specified pregnancy related conditions, third trimester (principal); R10.31 Right lower quadrant pain; Z3A.33 33 weeks gestation of pregnancy
CPT/HCPCS: 59025; 76818; 81001; 84112; 87086; 96374; G0378; G0379; J0690

== ENCOUNTER 2024-04-04 19:31 | Outpatient (REF) | payer BC, OTHER, SELFPAY ==
--- OUTSIDE RECORDS SUMMARY | 2024-04-04 19:37 | XMS_ITS | CCD ---
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 and Rh group Nom (Bld) Hx Check: Not Found Anti-A: 0 Anti-B: 0 Anti-D: 0 DCon: NT A1: 4+ B: 4+ ABORh Interp: O NEG Invalid Interpretation Code [facility] Comment on above: Performed By: #### 1 [id number], 73804286, 8738567, 01552786, 6149791505, 1234363, 23278357, 67076978, 66486128, 41481006 #### [facility] (DEFAULT) [address] [place] [address] ABORh Retypeon 10-06-2023 ABO and Rh group Nom (Bld) Ordered by Discern. Anti-A: 0 Anti-B: 0 Anti-D: 0 DCon: NT A1: 4+ B: 3+ ABORh Retype: O NEG Invalid Interpretation Code [facility] Comment on above: Performed By: #### 1 [id number], 42882765, 0200102, 23040160, 1861971234, 1323637, 12435370, 30573984, 76855525, 80401922 #### [facility] (DEFAULT) [address] [place] [address] ABSC Gelon 10-06-2023 ABSC Gel Negative Normal [facility] Comment on above: Performed By: #### 3 [id number] #### [facility] (DEFAULT) [address] [place] [address] CBC w/ Auto Diffon Erythrocyte distribution width (RBC) [Ratio] 13.3 % Normal 11.5-15.0 [facility] Comment on above: Performed By: #### 1 [id number], 74167806, 5198528, 67835615, 4544739999, 7624861, 90686344, 83362769, 24486043, 39420282 #### [facility] (DEFAULT) [address] [place] [address] Hematocrit (Bld) [Volume fraction] 41.2 % High 33.7-40.4 [facility] Comment on above: Performed By: #### 1 [id number], 11243914, 7208892, 73219150, 6884864245, 9846811, 05018690, 51282976, 32141522, 27704526 #### [facility] (DEFAULT) [address] [place] [address] Hemoglobin (Bld) [Mass/Vol] 13.6 g/dL Normal 11.3-15.9 [facility] Comment on above: Performed By: #### 1 [id number], 80988538, 3575800, 98291815, 9132284531, 0270491, 00652499, 80980590, 76546728, 87265559 #### [facility] (DEFAULT) [address] [place] [address] Man Diff? Auto Invalid Interpretation Code [facility] Comment on above: Performed By: #### 1 [id number], 00017100, 4510242, 72445313, 0169546555, 1010419, 52203653, 38608997, 09041346, 21129946 #### [facility] (DEFAULT) [address] [place] [address] MCH (RBC) [Entitic mass] 28 pg Normal 24-34 [facility] Comment on above: Performed By: #### 1 [id number], 45747019, 1247452, 24134209, 1842712908, 3335808, 27427047, 07873132, 39201926, 12631919 #### [facility] (DEFAULT) [address] [place] [address] MCHC (RBC) [Mass/Vol] 33 g/dL Normal 26-37 [facility] Comment on above: Performed By: #### 1 [id number], 40773826, 6600031, 37446042, 5333133129, 5950212, 22977407, 24365048, 42322787, 33590697 #### [facility] (DEFAULT) [address] [place] [address] MCV (RBC) [Entitic vol] 86 fL Normal 81-100 [facility] Comment on above: Performed By: #### 1 396888713, 27800938, 4459627, 13861149, 4899914744, 9982386, 74775805, 49891701, 22907961, 11372448 #### [facility] (DEFAULT) [address] [place] [address] 88244 Platelet 267 x10 Normal 138-427 [facility] Comment on above: Performed By: #### 1 537453404, 73669710, 2647074, 86214087, 7257640702, 0463851, 51381231, 13609567, 55068391, 04961259 #### [facility] (DEFAULT) [address] [place] [address] Platelet mean volume (Bld) [Entitic vol] 8.4 fL Normal 6.3-10.2 [facility] Comment on above: Performed By: #### 1 [id number], 57384851, 0250904, 28493722, 8163756927, 2214271, 79080162, 22805633, 56052067, 80182102 #### [facility] (DEFAULT) [address] [place] [address] RBC 4.79 x10 Normal 3.70-5.30 [facility] Comment on above: Performed By: #### 1 550321457, 94441480, 5865481, 16986270, 9132148583, 5973832, 16840903, 74687560, 02131238, 57871143 #### [facility] (DEFAULT) [address] [place] [address] WBC 11.8 x10 High 3.5-10.5 [facility] Comment on above: Performed By: #### 1 231659009, 92817522, 0668694, 67427551, 9930896184, 5646959, 50725002, 71591131, 27907647, 67663638 #### [facility] (DEFAULT) [address] [place] [address] HgbA1c Standardon 10-06-2023 .Hb 15.7 Invalid Interpretation Code [facility] Comment on above: Performed By: #### 1 [id number], 09386103, 2508093, 69240547, 2857907963, 2413908, 56565189, 13754938, 49217876, 03091714 #### [facility] (DEFAULT) [address] [place] [address] .Hgb A1c 0.45 g/dL Invalid Interpretation Code [facility] Comment on above: Performed By: #### 1 267465213, 16622660, 4207893, 76160239, 6051621864, 0303075, 55551689, 86415409, 17970062, 27966676 #### [facility] (DEFAULT) [address] [place] [address] Glucose [Mass/Vol] 88 mg/dL Invalid Interpretation Code [facility] Comment on above: Performed By: #### 1 057071547, 76981912, 5953841, 39416207, 7536808383, 0140059, 63160742, 67059924, 73983488, 57115639 #### [facility] (DEFAULT) [address] [place] [address] HbA1c (Bld) [Mass fraction] 4.7 % Normal 4.6-6.2 [facility] Comment on above: Performed By: #### 1 [id number], 32236741, 8451169, 81693511, 2671327372, 4991441, 84958780, 09117854, 30151777, 66808145 #### [facility] (DEFAULT) [address] [place] [address] Provider Orderson 10-06-2023 Provider Orders [id number] #[id number] Normal [facility] Coding Summaryon 07-04-2023 Coding Summary HTMLBase 64 VkghbopiYXk3yJp+PGh lYWQ+AP6FKAKmN67dbB IcrV5iO2IYLRrQMuyxF NTLBIuLFpQgvaJsDX9q aXNjZXJu IC8+HX3mVALjLmnywRL xm6E9wJV1I19xqy2jMF bxkLU3NIVqCnDaevaif 1lxdEg5DDtvGnazQvHl FSMlkU36XHT3kU13Dy3 2kGCqrVSpm5qxuVf4Fy XtPIDrRIL4nOlmZVbai 7KwUJOxV27vyDEjf2L8 IGNvbGxhcHNlOyBlbXB 4lM3zKNqeojatl4xteg fdRss9hs18fCVyq1R3z OE4A0SsyzM2MMSsaEWr TgsplZODnD6atsdnj0y wkcznOuKkYYAzEHs2VS v5FSEgqCchBjQtWI59E SH5ATIqpcIuT1FzLQEw rQzvLbF0z8R4Uk8YF0V ZWcecI0EBEHLEWBmhwD Q+NL75vd82K5CcSoahI wn5LFBtHIZ8fDX0cP7z JVQhUCwkp8Z4cEF6V6C nqdFmjp6zs7erJYUlWM alN14luRXxx0S3GREsh EN3MHEzvDkwIzNhvF14 Oyc+YIKstAzho0ZaAsq kk5lss7tfcMt5BwayGQ MossEbnGvhEMQ8v3DaG l9jKEXplIN5tDQ8bI1g MeJbYzZ6LXdyR143WzS hpIKqNtldC99dS3IzzB A+BQHqNwl7QFNiqDkoF Y2tQ2OyBKMtzboexDZa dZyvOG7rNYVciidpKFL stA2eTDFqA8a2HxBxJf Z3ZKruF5XwAKYzdyhlB i42rC8kCcCdQyP8RBmv B9GdzyS2GNXycEZuSWr aMNE3L66vs8J4GKQkGF CaWFF5dBZ1mA6jgHopg jogbGVmdDsgdmVydGlj WBuoDNqeM349XUAjfJz nPkNvZGluZyBEYXRlOi AgMDMvMTEvMjAyNDwvd GQ+XIUuHZP3dIanJZVh kZIyKVyqDd2qcRnbtIj sQG6dHAFefwkmVKYpbM 3nFGXkqIAfmNwoHN9dT UIhstmav304ZeMqFME3 REAdnBZpE8NclY1oSmS zAMOvKJOqG3WwbHGpHS jqZ413RKduNvT4MQXxa kPxT9QsLJUyaAguWvT2 a0U0Se1Gj0IohcloU3F lqUAqRuBiSvbpHCr8F5 RkPjwvdHI+WW93WQByD Q34CXe2RPD6mJwtBZbg URUyY5VlgW8iHkPuQLW kZGRkOyc+PHRhYmxlIH dpZHRoPScxMDAlJyBzd WbgDP7pXa6aWMEmKOEd rBdptKZkBvFew6leFSM oKGzuBH7kzVjoH9ZhtY V3EMMay2z0Bs19S53iD 3JvdXA+ZAHhnKC3jDH0 hB9yCiMvGhU8PKazU33 7UaRhlKFuBwsmq2nxa6 pntJp2DxP2LQDiulHpa WpbIIY1x7GtOz27X43a IHdpZHRoPSIxNSUiIHZ ckHjkub3xlO9cOk7+PG AkjTK8kRM6aQ2aDoLcN mL9WPjsN856EcKgcKSu Wjlnw9hbv7isgWi3TlM rYGNshnSzvOgxVPF1d1 HiJj22C2YmkXuvi4MgA as4li83rCPga3A0bMJ3 O2DwSJNluyvjlXSkxId yZF2wVBKthxgjWBIuzY 4tBEQdW7i8WoRqGiP9Z BqoY6GovpU1TJNhiWEd OIVpoGOCbU5wxzequ0x rzlfbTcEqZXTgKEp3PL u0QLLyoIstOrMqLOZ8I nI8BNP7bJAhmI5isFpn uknvuI5cIsq+VER0rAA dxLRWWB0rTozhfAO+PH JlVFV4aRikZExpYYAwx V4lCFOaJ6o3HfLaKbS8 LLjtH4GlilO4JRPhzSX xUZYusAAUkU5wkdylk1 zchbiyZqTzKGUqWJw1S Ye5SPEjyFdhJwAlNYW1 OhX8OJE5aCKwtK1fsCw bfnhciF5eQwh+QmlydG lyXCN9GPy4T2HiIle8G PHnaHqfDM9voIOzRLkp Jt0ygQhkhYdnYA7iLLK ijltwc149NvAbu7czTB MpgSLsIYbjPYS2C57jn 5A3BCByJLLlCNC0qAC7 tD3ovPuaadjwcATnrBs gdmVydGljYWwtYWxpZ2 30MMFrmWcsKbHoVQa9F 9OvKot6QWLryOmvSA7h cCUxCHckIx5ddQiklPl eUM4pIIFfyvndj844Op Vik4stOGUumAXaZEmxS PH1E62qa6C6WOQvFOAg JHP8zCV0vT9hqHzbuxq gbGVmdDsgdmVydGljYW tzYYqkS828EHKadMyaJ hYbtHm0Z5GtFru8PDBj lJjlWL1cbTXyFLwnPf0 elAqucBbeKZ4mTCWakn qni313KeNxu1vxTSGsg SGzVZfiERF3F38ee0Z9 QDDfVRUhMVW1xVM4rK5 hbGlnbjogbGVmdDsgdm GvyPzjOVqkJPevB965Z HRvcDsnPlBhdGllbnQg MUgdYVb9C1XvLnglhQM +QC21JDCuGX27qCUpuG Lnw8atkLa8QoJaXCChS VG4pHquCLwzi4OoVFCe V69zxNNdx3B8WBJqcJi ulMQpIiEasRP1rN1hKU lsqmdqy4sluikvGcowf 6vrqz53zZ93T07cTBsv ZHRoPSIzMCUiIHZhbGl sgd5trX3jNy5+PGNvbC J0gSR3gD0rGBPeYeW8W PhzE765YdZvkQLcZpwi o0snx9cdoMu9MvC7RXO oufUdnGnaKBI2s0FaQm 83U72oSUiyLDIyHMLyU PSkLQJqwLvydc6caV2m Ii8+LNXliBH3xNY5pM4 bDuFjWqS1ODqvG703Te CcsSYrHgvfG60lU8Tdh XA+VRQfCxa8IEDfdYuw DO9jwSOiTDnqHo8oGRU 6RoYtKjTwINvjZ4EjPA TbdbrfoemdjMC6VLTsA ZPyeF46Rx0rlPxaPEGe jAGYvT7uzbvuy7lcecn uQkGbTSVmKNd0GJv4MI AeiKwuQjJxTKK1PxV8O QL7bRBefD4lnQnphzdb kF8eY1AiCWRqrpwnLh6 9jD2mMcIlRyZ7JBhvYv c+QkFLRVIsIEFMRVhBT kRSQSBNSUNIRUxMRTwv dGQ+HXQmNDI9pOngRUi jWNYseM1oHSYyM6g1Wz VnLxI3UDfaE0UgEZUsp lodBa78gQ8bDlXkKbJ9 CBtxP7VuuyK6XXOcgDI vIRljENF1R98ht4H9OZ GsLDLrMVA9fUI1hS2wc GlnbjogbGVmdDsgdmVy vDxpWDowGCeiV694UZR trMndAtKbCsW5AeAcXB T5J8RiRvh1JPGgkAlvM D8fuDPnJJrcLi9nlLux gYuvRT3iYWXcgdlvSPH ecL5vMGVijBFdoRprIZ 2mXDFumekew344QxJpZ UB8THRgcEYqS8NgnR2z CwIeGEDvRNCrN7BhtKW tATskA289MMybMnO9XE FsigCwD4ZkDWDubKgsE lB9k3G9Io2oYmINGLZx czwvdGQ+DDScUMT0kVt iZDktIWMroF3yGPFdI5 u1EnFjPtH6PQocI9ZuA ZRjwzykOy19xR4lRpPr KeI6ORvjD4JjqqG8NUE tjAKhPFpiHGG4J91pi7 A8YZVqBJIrFWT5fKG2m A5scHbhbzipuKZfiUub beLorDneIRcsHCzaZ54 6IHRvcDsnPkZFTUFMRT wvdGQ+TQEbAEH1eVxpS KgaCAGmnK1bYIFnL9f9 PiFiQaG9TJnqZ3KnWEQ tfpjnZy00uP1mZdFcIl H7KJsnP5QghyE4JACnp WZhIQsbXXN5S93de9P8 UTYeEVNbPDY5cGB6aK3 hbGlnbjogbGVmdDsgdm XstBpbRTzmDZibI056H XCggMhrCeVpC5Pgbhqi EgVGePOqTACcYL55TO6 8YX37P1QpJqmatQNxxD U+PHRhYmxlIHdpZHRoP MiqUFMiRlZcrRwdBV0n Ng3sRTBzTDRpiLxmuAL sDaPul8glKELgOYxjKL 6bvJyiG2UzvON4IYKzy 8j1Jp35U40iS4SevYH+ HOLrrEW9rFX9eO6cMdB yHpO1JTwpU811KzRnwK QfTchds6uyz0uqnIq8J jMwJSIgdmFsaWduPSJ0 a8PjUs97K90oLBrvJHI oPSIyMCUiIHZhbGlnbj 2wzQ9dJj1+EOXilPK7e DU0dZ9tRrSzUwA0WTaz X504RaDqnCVaPtlzX49 uE0EziOZ+LGIrWre5MK MyqSmjLG1dzFSpZVguB a7yTDK5LjJzCyZzRSap N3FbWSWzisfpnglfgLO 2WJCqHIBgjI72Mv3pfZ opKj8qDDUhXDX8GYClz GHbM4QubB4mZfFpSXNr JYTlQ3WftNJkTDoiG23 5NFtdXvQ3KWMsgwXlM5 EkGTUmxKbbAzV0t4Y2K m5AfIodvPXxBE6uWrZb LNp1N9OjKgi7JJZojTg yLH6aeNQzPYvwCz6hzO qkkInuTM6sTPOdcnbjl 152LeQvh6kaCJHbqICw XIchHQF7M37rp7D9JFF fICHdTNS0yTX5eR7nlI lnbjogbGVmdDsgdmVyd AdiLBcePPpjN599RUPh dSiyUmUTTlw0A9DfNvf 6KJUqpOzkBB9dgLZdOH sjZf2tkLtlmDonST2aP CZjtijtr770YlLil2oz GFAqiRZtGJonQET2F58 kx7M3DVFmLFMuELN6jA Q4oX0aoDlmstviqHCaz DsgdmVydGljYWwtYWxp U929QCZngDfuFq2NIgg 4J3AeGpv9ONWxdDarAQ 8nvLJrVUydGc5xiCpus McxKO4nDYHvpcluw470 LcOpd9oaVXWszCGjKUw jKWY2S92bh8K1PVXgTF CvILR1wOI8hO1kuTvgb jogbGVmdDsgdmVydGlj EJpkMIzoR708RZSftTo nPlBheWVyOjwvdGQ+PC 82cn49K5QaWfrbDma1W RXaRPF2sBP4qM4qGVOh JS (more content not included)... [facility] .Auto Diff 1on 12-29-2023 Auto Jefferson % 6 % Normal 1-12 [facility] Comment on above: Performed By: #### 3 [id number] #### [facility] (DEFAULT) [address] [place] [address] 63373 Baso Abs# 0.1 x10 Normal 0.0-0.2 [facility] Comment on above: Performed By: #### 3 [id number] #### [facility] (DEFAULT) [address] [place] [address] 54026 Basophils/100 WBC (Bld) 0.8 % Normal 0.2-2.0 [facility] Comment on above: Performed By: #### 3 [id number] #### [facility] (DEFAULT) [address] [place] [address] 08354 Eos Abs# 0.1 x10 Normal 0.0-0.4 [facility] Comment on above: Performed By: #### 3 [id number] #### [facility] (DEFAULT) [address] [place] [address] Eosinophils/100 WBC (Bld) 1.8 % Normal 0.9-4.0 [facility] Comment on above: Performed By: #### 3 [id number] #### [facility] (DEFAULT) [address] [place] [address] 48779 Lymph Abs# 2.1 x10 Normal 1.3-2.9 [facility] Comment on above: Performed By: #### 3 [id number] #### [facility] (DEFAULT) [address] [place] [address] 70136 Lymphocytes/100 WBC (Bld) 26 % Normal 14-48 [facility] Comment on above: Performed By: #### 3 [id number] #### [facility] (DEFAULT) [address] [place] [address] 98313 Jefferson Abs# 0.5 x10 Normal 0.0-0.8 [facility] Comment on above: Performed By: #### 3 [id number] #### [facility] (DEFAULT) [address] [place] [address] 75335 Neut Abs# 5.2 x10 Normal 1.5-9.2 [facility] Comment on above: Performed By: #### 3 [id number] #### [facility] (DEFAULT) [address] [place] [address] 18687 Neutrophils/100 WBC (Bld) 65 % Normal 44-88 [facility] Comment on above: Performed By: #### 3 [id number] #### [facility] (DEFAULT) [address] [place] [address] 06082 CBC w/ Auto Diffon 3 Man Diff? Auto Invalid Interpretation Code [facility] Comment on above: Performed By: #### 3 [id number] #### [facility] (DEFAULT) [address] [place] [address] 77494 Erythrocyte distribution width (RBC) [Ratio] 13.1 % Normal 11.5-15.0 [facility] Comment on above: Performed By: #### 3 [id number] #### [facility] (DEFAULT) [address] [place] [address] 15101 Hematocrit (Bld) [Volume fraction] 40.7 % High 33.7-40.4 [facility] Comment on above: Performed By: #### 3 [id number] #### [facility] (DEFAULT) [address] [place] [address] 32694 Hemoglobin (Bld) [Mass/Vol] 14.0 g/dL Normal 11.3-15.9 [facility] Comment on above: Performed By: #### 3 [id number] #### [facility] (DEFAULT) [address] [place] [address] 96232 MCH (RBC) [Entitic mass] 29 pg Normal 24-34 [facility] Comment on above: Performed By: #### 3 [id number] #### [facility] (DEFAULT) [address] [place] [address] 88586 MCHC (RBC) [Mass/Vol] 34 g/dL Normal 26-37 [facility] Comment on above: Performed By: #### 3 [id number] #### [facility] (DEFAULT) [address] [place] [address] 30607 MCV (RBC) [Entitic vol] 85 fL Normal 81-100 [facility] Comment on above: Performed By: #### 3 [id number] #### [facility] (DEFAULT) [address] [place] [address] 39118 Platelet 275 x10 Normal 138-427 [facility] Comment on above: Performed By: #### 3 [id number] #### [facility] (DEFAULT) [address] [place] [address] 66617 Platelet mean volume (Bld) [Entitic vol] 7.7 fL Normal 6.3-10.2 [facility] Comment on above: Performed By: #### 3 [id number] #### [facility] (DEFAULT) [address] [place] [address] 20139 RBC 4.79 x10 Normal 3.70-5.30 [facility] Comment on above: Performed By: #### 3 [id number] #### [facility] (DEFAULT) [address] [place] [address] 43240 WBC 7.9 x10 Normal 3.5-10.5 [facility] Comment on above: Performed By: #### 3 [id number] #### [facility] (DEFAULT) [address] [place] [address] 82917 CMP Standardon 04-22-2023 eGFR Non AA >60 Invalid Interpretation Code [facility] Comment on above: Performed By: #### 3 [id number] #### [facility] (DEFAULT) [address] [place] [address] 76270 eGFR AA >60 Invalid Interpretation Code [facility] Comment on above: Performed By: #### 3 [id number] #### [facility] (DEFAULT) [address] [place] [address] 23673 Albumin [Mass/Vol] 4.0 g/dL Normal 3.5-5.0 [facility] Comment on above: Performed By: #### 3 [id number] #### [facility] (DEFAULT) [address] [place] [address] 96449 Albumin/Globulin [Mass ratio] 1.2 {ratio} Low 1.4-2.6 [facility] Comment on above: Performed By: #### 3 [id number] #### [facility] (DEFAULT) [address] [place] [address] 30412 Alk Phos 68 IU/L Normal 32-91 [facility] Comment on above: Performed By: #### 3 [id number] #### [facility] (DEFAULT) [address] [place] [address] 28056 ALT [Catalytic activity/Vol] 14.0 U/L Normal 14.0-54.0 [facility] Comment on above: Performed By: #### 3 [id number] #### [facility] (DEFAULT) [address] [place] [address] 29210 Anion gap [Moles/Vol] 10.9 mmol/L Normal 5.0-19.0 [facility] Comment on above: Performed By: #### 3 [id number] #### [facility] (DEFAULT) [address] [place] [address] 47048 AST [Catalytic activity/Vol] 18 U/L Normal 15-41 [facility] Comment on above: Performed By: #### 3 [id number] #### [facility] (DEFAULT) [address] [place] [address] 44342 Bili Total 0.6 mg/dL Normal 0.3-1.2 [facility] Comment on above: Performed By: #### 3 [id number] #### [facility] (DEFAULT) [address] [place] [address] 26382 Calcium [Mass/Vol] 8.8 mg/dL Low 8.9-10.3 [facility] Comment on above: Performed By: #### 3 [id number] #### [facility] (DEFAULT) [address] [place] [address] 41930 Chloride [Moles/Vol] 107 mmol/L Normal 101-111 [facility] Comment on above: Performed By: #### 3 [id number] #### [facility] (DEFAULT) [address] [place] [address] 93434 CO2 [Moles/Vol] 23 mmol/L Normal 21-32 [facility] Comment on above: Performed By: #### 3 [id number] #### [facility] (DEFAULT) [address] [place] [address] 12809 Creatinine [Mass/Vol] 0.68 mg/dL Normal 0.60-1.30 [facility] Comment on above: Performed By: #### 3 [id number] #### [facility] (DEFAULT) [address] [place] [address] 54174 Globulin (S) [Mass/Vol] 3.3 g/dL Normal 1.5-4.3 [facility] Comment on above: Performed By: #### 3 [id number] #### [facility] (DEFAULT) [address] [place] [address] 83653 Glucose [Mass/Vol] 103.0 mg/dL Normal 74.0-118.0 [facility] Comment on above: Performed By: #### 3 [id number] #### [facility] (DEFAULT) [address] [place] [address] 91853 Osmolality 274 mOsm/L Invalid Interpretation Code [facility] Comment on above: Performed By: #### 3 [id number] #### [facility] (DEFAULT) [address] [place] [address] 56000 Potassium [Moles/Vol] 3.9 mmol/L Normal 3.6-5.1 [facility] Comment on above: Performed By: #### 3 [id number] #### [facility] (DEFAULT) [address] [place] [address] 46132 Protein [Mass/Vol] 7.3 g/dL Normal 6.5-8.1 [facility] Comment on above: Performed By: #### 3 [id number] #### [facility] (DEFAULT) [address] [place] [address] 09720 Sodium [Moles/Vol] 137.0 mmol/L Normal 136.0-144.0 [facility] Comment on above: Performed By: #### 3 [id number] #### [facility] (DEFAULT) [address] [place] [address] 49115 Urea nitrogen [Mass/Vol] 12 mg/dL Normal 8-26 [facility] Comment on above: Performed By: #### 3 [id number] #### [facility] (DEFAULT) [address] [place] [address] 72390 Urea nitrogen/Creatinine [Mass ratio] 17.6 mg/mg High 4.6-16.2 [facility] Comment on above: Performed By: #### 3 [id number] #### [facility] (DEFAULT) [address] [place] [address] 92993 Lipid Panel Standardon 04-22 Cholesterol [Mass/Vol] 158.0 mg/dL Normal 66.0-200.0 [facility] Comment on above: Performed By: #### 3 [id number] #### [facility] (DEFAULT) [address] [place] [address] 75162 Cholesterol in HDL [Mass/Vol] 51 mg/dL Normal 40-71 [facility] Comment on above: Performed By: #### 3 [id number] #### [facility] (DEFAULT) [address] [place] [address] 73681 Cholesterol in LDL [Mass/Vol] 98 mg/dL Normal 1-100 [facility] Comment on above: Performed By: #### 3 [id number] #### [facility] (DEFAULT) [address] [place] [address] 20298 Cholesterol.total/Cholest amanda in HDL [Mass ratio] 3.0 {ratio} Normal 0.0-4.5 [facility] Comment on above: Performed By: #### 3 [id number] #### [facility] (DEFAULT) [address] [place] [address] 82850 Triglyceride [Mass/Vol] 43.0 mg/dL Normal 0.0-150.0 [facility] Comment on above: Performed By: #### 3 [id number] #### [facility] (DEFAULT) [address] [place] [address] 11679 VLDL. 9 mg/dL Normal 5-40 [facility] Comment on above: Performed By: #### 3 [id number] #### [facility] (DEFAULT) [address] [place] [address] 03196 Progesterone LCon 02-11-2023 Progesterone LC 0.7 ng/mL Invalid Interpretation Code [facility] Comment on above: Result Comment: Foll icular phase 0.1 - 0.9 Luteal phase 1.8 - 23.9 Ovulation phase 0.1 - 12.0 First trimester 11.0 - 44.3 Second trimester 25.4 - 83.3 Third trimester 58.7 - 214.0 Postmenopausal 0.0 - 0.1 Performed At: [facility] [address] [place], [place] [id number] Bibi Irwni PhD Ph:[phone] Performed By: #### 3 [id number] #### [facility] ([facility], [facility]) [address] [place] [address] Coding Summaryon 01-17-2023 Coding Summary HTMLBase 64 YzcjldseUOi5vVp+PGh lYWQ+NJ2ZHJHpW46ooE JbsA8mA2TGOUnFFalpH IMXEPhODqOijbOdIN3d aXNjZXJu IC8+KR6pMUXoAisrcXS yw4V0fTB8A23gym8gGL zkuLO6COWmLvHldwgkm 6aokRz8VDvxHpjtOkJn ZKIkoI85SDG1fC44Af1 0kPGmsQKxa0nicWm1Xc LqJUEfWZM3kYmfEHbvt 5ByKDIsJ65ztQZbt4I3 IGNvbGxhcHNlOyBlbXB 1wA3pPKudltqrr6cpwg bvZhp4hd28lGMoa2O7j JL0R2IqlaR1UPLurZVy ZgfbkDXUjP0ebzout0o rvqofLeStALDsQGf2XI u3VFIxdRnbPyLhEO39I MU4KDMafmIrC1GnEGPr cMwlYsW3q0I8Ar7DK9V RGsdmX6ZSKKGLQGsamG Q+TC84yz03T0IoKavgF hp9WHRvTYJ4tPA1vD0j HCWrAFboq9I6kDR3J3X yifQxff4xa9xkMHUrNK xnC18ipYQdq0T1RQToa RL3WCVnwOarBnLgkK05 Oyc+OIVlqIcko2GkMdd dk5iud3imcGq8EdloQE TdhyEamSpcFHU1y2CaA d2kUOHjdDJ2mGU9gO7k ZxZrWwL9MNixW852RxJ dyHGxAbsfA23hL9VosY A+VXJqKky6JQUlmJaeG D7kG3JjJCJjbupslZVi hQqjBP9sVSCyzculUSA dgL6eOPQaM6u6ZtWwZb X3YLfvF5EkGSBjnbmrZ z51pA9cJmBpMqZ4LAwr Q3FmguA8CYWnaSQdPTd wFBA4O69ov5R4BWOfFV SxIUC4iCU2rM8lsPnao jogbGVmdDsgdmVydGlj RVbkOPtmY617AVWthPi nPkNvZGluZyBEYXRlOi AgMDkvMjUvMjAyMzwvd GQ+CMTmZQA7hBpsDZAd bTVjIPeaJi2urCgomAc cKH6fDQYjjoscWYZcsB 1lETSavGAenCzjIF0tT IJrrajch418YkHzXAM1 BCZiiRHvS3ZtmV2vAlH sBWVmHAAoM1XpjVVtCA ehD152XRnjJmD0XPTmr aDzE6CvKEYwfSzmZlW0 z9K9Sn6Lp1WolqqnF2O ojLUvGqSlXzyuGCg6R1 RkPjwvdHI+PW73MUFyN C64IGx7CDI4ySciKLhm CSPwZ1OyiZ1yYxCfLIY kZGRkOyc+PHRhYmxlIH dpZHRoPScxMDAlJyBzd TkdXT1cCh3dDZKsPXMw pMbbfVJlIkCvc3eoKOC qVHsxCR3acMwaS5YeyE K8RVYku6h7Ks65W68eH 3JvdXA+JKFgrYX9gAW0 zY3uNqGmAkV9BErkE93 5RlIlzFIpNzgay3plb5 feqPl0YgM1KXFycoPgg UjnPMU5q7JvSg07E83m IHdpZHRoPSIxNSUiIHZ deNqhnl7ecF7qMl3+PG SvlYF1bFQ6gH2hJiGeG aU9QHdlL822FnVymYJd Tfvvc3ykv6heaYu1NcZ mLCGlriNouOjrOGS0k8 QzVu48A0BgfYrtx2YoA zs1wf03fSTku1Q9kLL3 F5AuXLKxdtgkeTBqaAc kIN0eUPXokezaUYZmkS 5wPVUrD7y9ZuPdWxC9Y IxgS4QanpA0JKLzoUBd JVEerBOJkZ8hmyrnb9f yzrzbWtSxOCDsPZa8YS g8XUUfuIvfEiWnVQJ0W xQ7YZS6gTVxzH7btFdo jhijlM4iOvc+UZG4xON byLPBEX7iVasduTG+PH IcWLT5dIijXYuiFTVfn R4pJFXvQ7w0HfXfVxL0 YIyiT2CncvF3CJCeyQY qAVLjqKARlG5gdzniy0 bwfuzsGbTkPYPuLKs4W Pe8PAXvwNhwIpWjAUE0 BzE4RKC5pPMqwF2htEi xsmsvuB7yGof+QmlydG qoACE7GUe6G6TaIvs8P OBctYowEC0ybGHrPIpn Xb8hnJuiuCugEN8hLGD zhaksn130PgYol8hhXA NobOPpOLcwJQU7Z03tw 0J2CMElZODcYHF2vPN9 uY0dhVjpwikbrRRqiTl gdmVydGljYWwtYWxpZ2 80JYXafMdeQaZaLMx3J 9CoBkc5UMFxaBniMI9e eVTuLKkzHn0fxThcuMj gZC6eYVBidjlsv823Qo Wwc8hlJIXtmOThLQhoD SR3X39og2Y5TLPfDDJx GUR8eFQ7fD7hlVtdcsu gbGVmdDsgdmVydGljYW naUImxP572MXIhxBkiL gRjvNa1Q3PgDuk8HUVx wNnnYP6nmDRwMRerTd6 glCbakBgvCN3lELInnn jqy387WnMyi9ouSBQwy BAdIWkqOPW6D56qm4A6 GHWhKEEcLHB6fTV6jT0 hbGlnbjogbGVmdDsgdm XaaQzjKHzmKEaeC113J HRvcDsnPlBhdGllbnQg CMyfFQh0Y4IvKdcoeVF +WU33DGXsKI97qJMerM Kbs7junIe5DfIlFHFhF BP2iNiqDFczb4IqWYUd V12dqXEcv6H8VTGouIm hxPIySuIjiZU0lD6eHF yeilmtr6mdoeunFzejh 0nlbb02sI89Y93uBFcf ZHRoPSIzMCUiIHZhbGl cwq6rmG8wCx1+PGNvbC C6oEO2qN6uYIWmMkY4M WmaM118PhTdcMLaAemy t3uui1unsDi6WrO0MQL snhFpiYsaURP8w0IvZq 46L28rTYtcNVRxMXUlH XHrNFWagKvrag6adQ2s Ii8+RJWguPE5rMC8yN6 wTlBhBjT2TPgkM923Iz OufEKfBwfyH09dM5Hzj XA+XAMtYbk5VOFtpLmy WZ2dxOQrYHslWj4tQIN 9WiCsRuKsPGzlH9BrGN QcesothcszeXY9RZLrV LEreF38Xs6duSucJYBk cAUCoZ9abozpx3hrzuq tSgUyQIDqUMo9HCc8FR PhvOvyXyLsWCL1MxU2C UU3zRPzdL5nrVawczzz vE4eU6LbWNCshhhjCa7 5oI3eYtYrQsZ2EHnhUq c+QkFLRVIsIEFMRVhBT kRSQSBNSUNIRUxMRTwv dGQ+UISlINQ6yQexOFn zKNDwrG1uMAVpC3d0Yf ZoCxY7EJurU4BhBAVsc tnzCc59oK1sIbWwZxX7 PPhvD2UrrjV4ZFMyvJD yLNklEBR0H88jz7B8OO HwTJKlCZD1eGV2oU0qf GlnbjogbGVmdDsgdmVy yEgkABosMBprL597ELL qyKthDqJjFiJ1MaOlDI H4P9TjPha0UNDrnLcwR D9cxTRxIDfjJl7keTbh xEriES2mSCMlmpsdYJN lxA1xHTMpjLYqlBuuXC 7iQVHmlqzqu598XvXeZ SV0ISFlmBFqI0FgkB8z VfRrVWMpHPTmG8XnwKJ jYNxsL816TFxtMdB6HK UugaSbG4NbHPYbeHbdU uR5w5Z2No4yODMNYARg czwvdGQ+QLWuZXB7lUm iRKgmMPZuqF0oNUIkT3 p0KlAtEmS9RAxdI0DtU XHuanqdXk84xM1bHdEw QrT4GVjoO1FtfhU5XRO zjROpCPttGVS2L64iq8 F6NENpGWHiAAR8mBN0x Q1gdRlcfxzknIMqzGvv ruWxdOkhHPwlJRjrC75 6IHRvcDsnPkZFTUFMRT wvdGQ+RMOgMVL9mYzoE VzzVOGhgK7ePLFjW4h5 OuDcOwR6ISexA2JzPQB xcxtrMr07xN1nAbUnLu Q5QMudX9ZgdoL0RCKmy FJeNTosHDA1D70bj8A0 ASZnMDHnXZY0wWJ0uV1 hbGlnbjogbGVmdDsgdm TvlOotOIzpPEolT359D JJsmKogRm0IJS11OG34 U2QiMueycGRxfNP+PHR hYmxlIHdpZHRoPScxMD MzGsKhwUwhTX3oHn0rC GVyLWNvbGxhcHNlOiBj x8tzSVWyNJwpCR9soOs oH5VegAD1ZSSph4o7Xg 75H19sX2MqaQI+PGNvb YQ2lSH8aK3dQeCjPyL6 RUpoN504BlJynKHjZba qo0xml8pfiDg7SvKmPL NkezJoaDcrQZQ2f8BzR n46R61pUTrzVLGlUWSz DCOmMFJbjMjdyy8bcV6 wIi8+MIIgqSH7iOC0rN 3pGyBnPgF7QUscG307R rIbuTRgInofF95kT4Ti dXA+SYBrGfz2XRQfgXb zRA1hfWAoKKubMq4eBG J1UsNkXmHpGTdnO4WdB UIbhhbtdflzuLL7IOSw ZVTwtE09Is3tfUfoZf4 jLOAnJCE0JVDbqPJrZ5 RsnJ2dJaCjGGVqLSYoQ 1MnjMZoBBrqF945FOds YsL5PTBpecXgO8WaZXL fbXccPvH0f4O1Cf4KcQ npdMBbXZ0cPxYrICo0U 6ExUyl2SKDxnNzkGP2a wZEzDWntHp9ofRvtlJe gPY4sVLAlvixsj572Ox Yes7vrWTGrpZScRZwvZ SH2D51wl1T2CDOpQIKu NBO6vIZ0qN9hzHoryom gbGVmdDsgdmVydGljYW idMNbjP777VKUpsCfiH qDDXlu3T5ZiSks3UZSl sExfOT6mwWIrEWkxCg7 fbZsevGkuDT5eVYOaca btt463RlPrd0fmJOMca ROtKOueICJ5G77gi1E3 OWDkBWOdGWX8uQJ2aW7 hbGlnbjogbGVmdDsgdm CbjNlsWKevFDbcV900E ARieDoqSd0RNdp3Q0Gg Mvp2ZPWziGhdUM1jwGK oXTioAc6zlApksRfqNH 2eFMMucideh452NsRhr 9vwRAWgqMJjVNctWNS5 Q51ac3X0WMGnPQPbVAR 4aIN9yP7ckKwzuspsiM VmdDsgdmVydGljYWwtY FqvV158FBApfXuuBtUc eWVyOjwvdGQ+DE87qv3 3Z4IbWyvyHmn4OXYzOK T1dAX5yY9uWEAbWGkta 4Z3oBR5Z4WaheSwlb8f b2x (more content not included)... Normal [facility] C Throaton 01-12-2023 C Throat Ordered by Discern. Normal throat dong isolated No pathogens isolated Normal [facility] Comment on above: Performed By: #### 4 [id number] #### [facility] (DEFAULT) [address] [place] [id number] Progesterone LCon 01-11-2023 Progesterone LC 8.7 ng/mL Invalid Interpretation Code [facility] Comment on above: Result Comment: Foll icular phase 0.1 - 0.9 Luteal phase 1.8 - 23.9 Ovulation phase 0.1 - 12.0 First trimester 11.0 - 44.3 Second trimester 25.4 - 83.3 Third trimester 58.7 - 214.0 Postmenopausal 0.0 - 0.1 Performed At: [facility] [id number] Bibi Irwin PhD Ph:[phone] Performed By: #### 4 [id number] #### [facility] (DEFAULT) [address] [place] [id number] ED Clinical Summaryon 2022 ED Clinical Summary [facility] ? Urgent Care [address] [place] [address] Clinical Summary PERSON INFORMATION Name: BRYNN WALLACE Age: 22 Years Sex: FEMALE : 2000 MRN: Acct#: Visit Reason: Throat pain - Adult; Body aches; SORE THROAT, HEADACHE Arrival: 01/10/2023 13:26:17 Discharge: 01/10/2023 15:12:00 LOS: 000 01:46 Check In: 01/10/2023 13:26:17 Checkout: 01/10/2023 15:12:00 Address: [address] [place] [address] PCP: Leah Azar PROVIDER INFORMATION Provider Role Assigned Unassigned Genesis Calvillo PA-C ED PA 01/10/2023 13:47:57 Kristen Velazquez [employer] Nurse 01/10/2023 13:53:38 VITALS INFORMATION Vital Sign [...] Adult Follow-Up: With: Address: When: Leah Azar [address] [place], [place] [address] DIAGNOSIS: 1:Systemic viral illness; 2:Viral pharyngitis Patient Understands: Comment: Normal [facility] ED Patient Summaryon 023 ED Patient Summary [facility] ? Urgent Care [address] [place], [place] [id number] PATIENT DISCHARGE INSTRUCTIONS Patient Information Name: BRYNN WALLACE Age: 22 Years Date of : 2000 Reason For Visit: Throat pain - Adult; Body aches; SORE THROAT, HEADACHE Arrival Time: 01/10/2023 13:26:17 Phone: Primary Care Physician: Leah Azar Attending Physician: Genesis Calvillo PA-C Comment: Patient Education With: Address: When: Leah Azar [address] [place] [address] [id number] Sore Throat A sore throat is pain, [...] these instructions at home: Medicines ? Take msjw-zlz-mstyker and prescription medicines only as told by [...] and water are not available, use hand airport driver. Contact a health care provider if: ? [...] can cause a sore throat. ? Take ukil-lcd-iphktku medicines only as told by your health [...] provider. Document Revised: 07/08/2021 Document Reviewed: 07/08/2021 [employer] Patient Education ? 2022 [employer] Viral Illness, Adult Viruses are tiny germs [...] and grow ou (more content not included)... [facility] SARS-CoV-2 (COVID-19) PCRon 01-10-2023 Internal Control Pass [facility] Comment on above: Performed By: #### 3 [id number] #### [facility] (DEFAULT) [address] [place] [address] SARS-CoV-2 (COVID-19) RNA HERBER+probe Ql (Unsp spec) Not detected Normal Not Detected [facility] Comment on above: Result Comment: Perf ormed by PCR methodology. Performed By: #### 3 [id number] #### [facility] (DEFAULT) [address] [place] [address] Strep Aon 01-10-2023 Strep procedure control Pass [facility] Comment on above: Performed By: #### 1 [id number] #### [facility] (DEFAULT) [address] [place] [address] Streptococcus A Negative Normal Negative [facility] Comment on above: Performed By: #### 4 [id number] #### [facility] (DEFAULT) [address] [place] [address] Progesterone LCon 12-14-2022 Progesterone LC 6.2 ng/mL Invalid Interpretation Code [facility] Comment on above: Result Comment: Foll icular phase 0.1 - 0.9 Luteal phase 1.8 - 23.9 Ovulation phase 0.1 - 12.0 First trimester 11.0 - 44.3 Second trimester 25.4 - 83.3 Third trimester 58.7 - 214.0 Postmenopausal 0.0 - 0.1 Performed At: [facility] [id number] Bibi Irwin PhD Ph:[phone] Performed By: #### 9 [id number] #### [facility] (DEFAULT) [address] [place] [address] Provider Orderson 12-11-2022 Provider Orders [id number] [facility] Coding Summaryon 12-03-2022 Coding Summary [employer] 64 UgrtjthoBYx4nCi+PGh lYWQ+EX0ICIYuG98ueN VmwP7sT5RPRYwJBjrcY VVWKKgKBdIonxDdPT8a aXNjZXJu IC8+SQ9kGPVkSiltvVO wq7W1zKK9G29elo8yCC ohmAR5TFNfJpCspqire 7lvtAo3MDbuYaovQwXr ATOluW69UVQ8pA99Bq4 9qBFygPEmt2fsfFv3Qm KaHDKsTHB6fQigRTmsv 1OmUULxW90hnHIjz3N0 IGNvbGxhcHNlOyBlbXB 9eL5kLOqavczxb5rwec nvKeb4oj66xLNnm0Y0c QO1Y2KrpvX1SFFbfSNa DewdaIUDiU1difpxz1y juatdTwDxWUEvYBa7LF e0GYMalGccWkXkCE83H ZL8ZRLdjbMoJ5KlANVl mJvoFwC4g4D4Wr1QC0N YGoerR8OBBEDOQUvlwM Q+QW88zo18E2JcWbiiE qr6IJXbMFY7eQZ2xE0x DMWhCYxmw6U8iZU8G7V ibxCgri2kv9bvCJMeVW lyA07tyADcg9H8LGVpx RJ1YBKmeYuiTaItjG98 Oyc+LJDpgFrdk8QtVmn ib7kwe6yiyMx7DekmOM LhydXjmWvcUZV8q7GmO p4sVCGmsPT8yME6qO3f XxVpKqO1PAmvQ261TmW ejJWkVspvV55tW9XjcD A+HKIzWpw0LOIimGxbD G2sJ0YhGXDbsphhqCIq gFwrQS0sLGBgihypDUF egV9wNTWiF6m4IjWqEj F0QEymZ6JuOSXeampuX p72sG3wEiGqZpB7LRrd U6FaxuZ9TWXbnCNpQFb pHIP5G62wc4V3MOEtAQ HnLHD1fFA7oG0nuSjsf jogbGVmdDsgdmVydGlj JYjpPNzcY020NAGlpXz nPkNvZGluZyBEYXRlOi AgMDgvMTEvMjAyMzwvd GQ+OMJzLSF3mTliEEYz oWLoXHwlZk7pgSsriPb cOH7oGIDrgqneGKJbdH 8gMHRtvCJyhVlhZL8kO MDpxitjr831TeLqQGV3 YZXllYZxJ5OyzO8kYsX vSEEfGGQxT9RidJMjMJ gnT668HLgbXjX3OQGaq dArX1UzEEQheWjmKgL3 v2R2Xf8Dx3BcgjruO9P xkKPfTiInPqqfXRk1N4 RkPjwvdHI+DW82AVFuW I91YHe7XTN2wMueVOhd RQXvM0XdvN1gUkPlVJG kZGRkOyc+PHRhYmxlIH dpZHRoPScxMDAlJyBzd NogQH1hYi6xUTToZNJx fHakuMAmDuEet7ywPJJ pROhcPF8lsKfbK0SqbJ H0GULsm6q5Pu77X22lY 3JvdXA+TDLrfOV7eXG1 tB1pQdBqPoO4RCeoN05 3GmZwuYMlBaeer2lhy8 pykUq3ErQ7QMJmqlMiq ZktIMH8i7YrLa69O96e IHdpZHRoPSIxNSUiIHZ oiQdkca7gtL9cJx1+PG NxqTB4vPT8zL4tInEpH hP4EQmxI082AzKdvILs Mbnik8eyd0wzyLe0MlU pDSRlsnOelVqaFYS2k0 InVc41U2DdsLwzo8ZaS wa6rh02xLEre9S4jUO1 X2NaPXZfxvnuwLThsKr aCJ6iOBYthqogRXKlwR 6lYDXdP5z8HkIyFtF5W GhyN0LdobD8KFSxfNHm FFIydIYVeG3vehlkm1n xhacwQcSqWCGeNHo9XY d9KXEhdJgePwFzFLR5O nK8XRH3kUPtwF7ryWic wtzixK6lLwc+UFN4oMF kyNCSVX4nJumhjQQ+PH YkTCJ1tMsfGEroZVYuu F5dGJRrC4f0HrTqJaL4 EDchU3BcdrB4KIPpsAQ gSFGahCANtU5xpzyli8 jgdpppAcXuYFYlRCc7S Yo6UDUqpSghHjZwEMC5 PxF2JZG4xPDreF7lwTg vepadlV2oUtv+QmlydG qeWFS9SWu8M2DbYgz2A XFhaEwiDJ9zpYHiLRov Kv5bgDxtyNgwDT5sOPJ zdbzrm857GjMaa3byIB CbrEIhMVbnQMS4W19da 6B1NOTcJITjLJG8dIX9 dQ2kjKqqfhdcmAHffMi gdmVydGljYWwtYWxpZ2 95SBUzkSwkUmKuFBd4G 0RtOma7HECamOntKB3m iVItZDrjUm5xgFxjsQw yST3iIXOnaatfn434Ue Nnx0orONGbrKAcEQlqG IB1I02zx4N8UYRnFQBl PCW1eEA8aU7ndEwnwff gbGVmdDsgdmVydGljYW luRPxhH108BXEnvZvtE bJjeNo6I7RkQmf2QOVx tAawSN4yxULbGYgaVc5 yyRigmYmrCE8jAJIejq kqy491VuFru2diBSPon SHsNVoxYNQ7B81fu4S8 RGGqZIWeBZB3yYS7oV8 hbGlnbjogbGVmdDsgdm CyoWnaACoeXNvzL922F HRvcDsnPlBhdGllbnQg WGqvNOq8V9KsLrosjXG +BA34WGWzFL31rPUeyL Rvu0mspGc2VjGiWKUpT VS0kNwxJQcxv0KhGFLs N16hhYHhu2H9RSAwbLe oxHEgVvIdhON1bI8sWG idzfapt0hopsofTthvq 3kifs99mH02G76jUSre ZHRoPSIzMCUiIHZhbGl ean2beH8pUy0+PGNvbC G3aZU6hR5aSVVdNgN0J HkhM601GiWebJKhVhgo e5uxx4tvxNw5BhP0JDL vusMqzEbqGYQ4v0CuCq 09I13jVDmxQSOhZXFfG MKkPBYrmRlfzg8xdL2w Ii8+ZYIgeJC0bZZ0qA9 sQvAvEhE4WImtS036Ey XpkZLmKbjzB71tL3Sdx XA+QFVgGlk5IDJaiUsa CA6tiDMvLLebOn1lQIP 7FpPpNyAjVNgaP3DwMN HjmybntvctrVS2GMTeO PYylL41Wv6ucZzcLNFf fBINxO6epyybf2cbmft zBsAeRJHiYTa5CZh5II MylIigUeRiOXF8TtJ9A ZO5zZShiR9qpMgcvvta fI7uT1JzAUSfuudpVd3 2vZ8dDoAbWhR7IDacPr c+QkFLRVIsIEFMRVhBT kRSQSBNSUNIRUxMRTwv dGQ+CTJdZIR0dHagNSt eNPWceL8lMEVdE3e3Th MoEfJ4GOnxH9AdCNAjm vniMk07sF7tNcDnXbK3 GUlxA8EhixQ5RHSinTG nHGpaANR3C86qd7V4NW JxPEEaNHM8gWE3pR6mx GlnbjogbGVmdDsgdmVy rPntAEnvACjwX362JOD peJlzQlIqMvU0BcNyQE D2G2YjQzz1UKIjdSyuT P6lkQVlWSloUs7muVxe gElaCP4iLIVpwgwhRGO lyZ4hJDZqlWZyyJykGB 1aMQSspurjk423VqAgP AT5ZPApzBXaZ6DteY7u JjGbJVEbFMBrI8OdpTJ jISdrQ039ZHfpWqZ3BG TqncRoD4PfGWKypWezN cV4d9F5Hz4aCAPWSDWu czwvdGQ+PFRhSNK7vHw sPZbtGQNpuW7ySCYwE6 b4CqRkMbG2NZzsM4MtD TFrlereVe38jO4tEdKm YwK5XMhwV7XthvC1HDQ axPHvOMqyQRC6K69rs8 A3PKGgTHKgPKZ8wPD9u O8enPsxtlpleNRaqKiu fsVsnQdkWYtkGIjsT28 6IHRvcDsnPkZFTUFMRT wvdGQ+GNHmXVU0oElvY KzdTJUsvD9wYVKmD5s3 MtRuMmR2MDcvT7WmTGH wvatiGr62rR0yWuLuOd U7TPkfH8MzhtK4KMRsk WEeTAhsMZL0I97bs9G1 ZQPeKXXzXEW0dTX1aA1 hbGlnbjogbGVmdDsgdm ZdiOopFQpyAGxbH472N VUymOwrUz8OFP65WU34 A8RnAegvmQEcgOE+PHR hYmxlIHdpZHRoPScxMD ZsHkZrzOkcTY8cPy9xO GVyLWNvbGxhcHNlOiBj b8vyNLTkIXqqXN8ieKu tX6UttMF9SABkh5e0Eo 47Z59jJ9YskTL+PGNvb XF9xEJ9jS9kXzWiDcU6 EEnlH449QbUxbYYmIqq fe8aba9qtsFr2UpMdPP JeeyCbtNxwCEL2q3SvJ u94T30xRMdrZICkKUAg VPHsXCDtpYeuro3iaH2 wIi8+QIOvkPT9cCJ7yZ 0bDqArKpO1TFmgP061O mVsaVXrWrrmJ17hG0Te dXA+QXXyHnt1JSLloBh mUT0ecMRxRCdfMq7bQL H4MsZwFxHrKDlxO5XnZ PCzkluvtaegcOG2PWRu JHBmdE90Bs4fzEgqPq3 oDDCdKEA2EICttYWmG4 LjkE8dMaLwENHyMIRpD 1NnkQWaLSrrG562NGiq XhU4XXEnljTqS8XgNGY mwPnlNfA8t5W5Wv4EaQ kibZPjBR5vAkLyYWz0C 5TcXsv7KDQvvHutCO5m cORvTLlrGh1iwLvfiSp jVG1dVDKskyoje763Pp Xby6hsPZDitCUsVNocF CO4O89tp7V5BIBeKIEh PQG4tNI0oS9lqZjxfvn gbGVmdDsgdmVydGljYW rhWCwzX806IYQptGbmQ iSBPds4F6MxYue6CCFm mJgpGF3nfKTtHMpcCw6 uxHrtbAqxWO4qESSpsp phq653KjPoh4trCXYvu WTsKNcmYVR0V84wj0U7 EOAmEENgQGI0zAD4jM7 hbGlnbjogbGVmdDsgdm CukOvoTXkrPYpfT141D GEjgWsfKv5UQmp8B7Rz Bob2DSQqgYicEA7waXO pADdvMd8cvDmypKcmJW 8vLBFwcfrim889NpScf 5npZPNbjQAtMHdkDDH1 N72ke8I5HEXhLHKoCJS 1aWZ3fT3cbAaydsvzmB VmdDsgdmVydGljYWwtY TepF841ZYNgvAmoRzJl eWVyOjwvdGQ+LG41qu0 1S8ZtNyzyPxs6PQPqXI V6xEI8gB7aYSZiLGqmq 7U2qOQ0A8JhscLzvk5t b2x (more content not included)... [facility] US Pelvis Non-OB Completeon 11-29-2022 US [...] MD 11/30/22 10:38 a Technologist: Geno TORRES [facility] Provider Orderson 11-26-2022 Provider Orders [id number] [facility] Coding Summaryon 11-22-2022 Coding Summary HTMLBase 64 KukpkfbuCIn2gDh+PGh lYWQ+MQ3EYRAdI49ffT HniA4yL4GZGIgHRkwgF SUYTEqZLwYwqeMxPS0n aXNjZXJu IC8+RW7tCHXfFdbokRK wz0E4vHI6P60jev9wZZ mywRU7PWEzUeImdlbid 1qelOd4YPhtGnryPgWe UVJdeJ27NLY4kJ90Ce9 5nXAmpISru6bwlDz5Fd ByBQRvJKI1aQihXQcat 4WvYQAqM46mkDPbz2D8 IGNvbGxhcHNlOyBlbXB 0bM5qDNuorrlvc6ymho kyHfr5qy34gLXna3N3l GX8C9YzgzP0ACUhwEJr LwxtlMQEsG2lcvjvh4m nxdziQkXlYQRyTLi3LI b8TPSuvBhtZyBzLA55O JI9FEMpsfZgK9DvTLDb nTjdVlI1c3O3Bb5SO4E SVunxR2YLVOEGWMqmcZ Q+QY26gb62H1OdVcnzR yi0WXJoVIK0mUQ2qY7f ILDrYLrsc4V5jYS4C7Z fryLuji2vg7hjWDHgFJ zlZ44woJOad7C0FMFfw ZX8KBDcmPziYxXpxL28 Oyc+THVlpFnuc6SgClv lc3upv9wjtKa4GnohGD VtllZvsNwnHXQ9h6UxO u0uXNOhmQB3uSD1kG2f CnHkBzM3CKczJ063IzF rvTQwPjngY97xY2IfhG A+DLWmScq4DQCviYaqT O2oH7IqFWMsunmhuUNn wYuhZE9lLUUxdpoyKHO crX2xEYMsU9g7BjRdWn G5RLjyO9TmGGNeqkpnQ n76aT5uPpWaXtL1OLrt I6NfqzH3NKRcaIKhOTz cAIX5J81sh2S0VNLnKL NtSXN1dAC8lS9uvNxlo jogbGVmdDsgdmVydGlj PPcaBWlgE412BBVbjYm nPkNvZGluZyBEYXRlOi AgMDcvMzEvMjAyMzwvd GQ+OEBwGHA9iPgfKHYl gKTuLBfxOo8jpGhxbXh vDC8cJIUhzwymJDFreN 8gQGMgdXXbiFatRT8sU UHeyegro840EyMsZZR5 VFUbdBQsC4BwuM2lYzY uNIMiBZYcJ9HmxJVbMD fjY508WGgvVcT8NCVbu hGjE8WtPEJwmMhzJsF9 r7J0Lt4Bk6KfedklC5M scCFvZrGcFcetGDn3K2 RkPjwvdHI+YL32MUXpH I05IVx6LHH8pRsrUUnn PKHrB5JfwD1nQlFsFGW kZGRkOyc+PHRhYmxlIH dpZHRoPScxMDAlJyBzd PcqKC5tOa0sVXQjYDUo hVdrxFDhFwYiq8coMGR lQGepUJ8snUfsH1GkkD U1OPZwv7n0Cd23L80kQ 3JvdXA+AHGnmMS4yJM2 dF9bEtHuBsF9ZMhuX06 8DoEezWJcJcteo7tll7 shjLb0RlQ3FKAzypXpd IxbOKH4t4XaVl98E19x IHdpZHRoPSIxNSUiIHZ inXeorx3ctQ1eWc0+PG ZlePM0bCX8hS1tCzWuJ nF5GQjlT982QfIukXGs Laynr5jzr1xmdMn4TiY uXPUlkmNlxMobMKL2k0 QzLa41B2FvwNlfe8UfM bk0mb00eZBmi5B1nGU6 X7UbZEQdxexalXMnaTt sVJ7fNXCsucipHADbjU 5eBYKsH1y8PcDuUpT5L IdwO7JyeiG7CPEuqKZj KSIiyRUNhK3gvxfby9i isrqvByVsLEXdMEo2LL k6PBIraJgwTqIcOWP9B qJ3MUG7zCDefA7vtYrf yrzfxR1mPvk+DAR2sXB upVLCQN5sLkveeFI+PH AgXXD7iYldSGziMVTyu C6xONWuU7y3ZcUwOeQ3 RZoaI8GyrqK8DRUllBI fJHBmdAHFcR7wvccwe0 yfhpwkJrKoIKXaFJa6U Iu6HYNvgDshKuGfKGZ7 RmH3IHG3hVAjoX0huHo cjlsrqG9yZzs+QmlydG okZZB7OTs5N3HbGco6S CBchMlpPZ4yhOGeLLdz Ma4zkFkduMveGC8xMRM kgvnng290MfUtx3poSC OzzPCyPQfkYQT9Q36op 0T3JKHkOIYuEPC1fRP4 mJ8wzHuwqfcvlMEmpPn gdmVydGljYWwtYWxpZ2 42XSFijBlhLeOsLRs9E 3GhNfc6JMPkkGhjAV6j oYTtLTwuPw1obEnbgQs xQH1oGZKfgrszf564Ak Viz0keOOGlhTAaOXuuT DM6E53ld2N5XWUnXTPv NPE2dOF5qG5neRjuvyx gbGVmdDsgdmVydGljYW zaRWcyO426NQTxwHlfX bNjeBp0W0XyRhv5VTGo tVyxMX8rjSTcDBfyFk5 exLaaeGemDC3aWNWljq slk904QpKnl3qvRSIki WIiOZioXRO5P72sq9J6 KETyUJAwHRC2uPV2sI3 hbGlnbjogbGVmdDsgdm JejXztXIzeKHemG626H HRvcDsnPlBhdGllbnQg LLxcLFc1B8SpXmazhCD +PC70BYScAT37gCPxvN Yff2dhvTt6AnOaIVZvW UI3oFlwOUnpl6XoXSMv B72wlUCrd4M7HOUssOz xiPTrLbBulHD4uL2kND szmzkwz0xvqxvmQjupr 4qala55nW58G95sSTqs ZHRoPSIzMCUiIHZhbGl tct8koR5xKj3+PGNvbC H2yDY4rJ0qFFHiCeT4K KwgR876OgYviOVbPhxm y2qmv9kbdTh8WxG1PJC xidGusHnjOOP5p2PuPu 07I18zTIsnIJUcBWAfR NTjAEFkyEycou3dwH0g Ii8+YFXcvZD4pKE0hU3 sPsXgNzB4DMwaW671Fs VbkLRuEjqxN98hV4Nme XA+IGBjHvp7RLPbyJpt NM6fkFZlPPzuZz5qRUE 6EpLdTqDpJCkgU1YzAW NkwgyieccjcBO4KWJlP LDtgU18Cg8lhHtjOKIi uVWRrX4vbpxnq4awrvb fHmPaLCBsROu0GEz9UJ SkoSlnXjArVTA7CaW8C ZV4wRChqW9imFzdxrfg yX6rQ8TmSRQywmhqLz4 8mZ0jEsWoVfE6CFuwVk c+QkFLRVIsIEFMRVhBT kRSQSBNSUNIRUxMRTwv dGQ+JSWyJWK9xAykFKw bXIMorG4hETTwM5v2Zf QzSyU4UJspA4MrQEAwt ruaJf43jH9hLiCrWrT0 BOzhB8YopiN3MHVwuFM kNShzNVC4U60om5X8DY AyLBGfVKQ4lSG0kC2ea GlnbjogbGVmdDsgdmVy hPovKPobGNrjL887QPA szYibRwBlGjW2KdHlJH U0C3YoEts7RRJcgQrxF V3iaFReOUopTz0qyKqr sXyoJE2uZRMwhrhkTDC liH2pDCIkqKQelPcrCN 3cDRAumfyui273GeEeM NT5ULDqyVLiD5JjlI1y RtRwUOFcGXZuN3NrbVB xKHhmR382BNrlKxU7QI ZdkvYhO8PdGQWgpIolT cO6b3Z5Zn5zBSXKBPUb czwvdGQ+TMFiYFT8bNy rGKzpCBFamX8aVQHxQ1 j8HgMqVpD9ORpmE8DyN QZxedhhDi95xN9dZiDd HcS6GQinH5NahjD5VDC koENnOKnhLXP9D64ol7 V4NAUmNJHnWOB2kXX1l V4mpLbqoylvqVSvfEbi yjByeQmpKKclMKtyD16 6IHRvcDsnPkZFTUFMRT wvdGQ+COUdFKT7eNayK CkyQCKqpD5qGHHcY5c0 MiBvCfK6PXpjM5BaRXK xiwpwJl61aX2hXfWvJg R4IXnoP2GwntT0KLXha CStIVroJAG5T01kt2K0 DVQjEJLmAKX7lMQ9aV6 hbGlnbjogbGVmdDsgdm RsdEuoXUikPGjoF889R SFylXdvPu1MYF09KB03 X3NtQqqsjOMweQU+PHR hYmxlIHdpZHRoPScxMD WqQlJgoPwsMK9vLi5nK GVyLWNvbGxhcHNlOiBj g3ukAHRzGPdeZD4tiOm pU9IvbBH8QHUhc2n0Yo 61E07kY6VyjMC+PGNvb CO2xUI6uU5tBgCzHvX7 TMnwC681KjWvpPVyFac mu1gvu3mxbQk7KjVzIQ LwqxNkrFmaTKT8t2CsK s96H06lKLytKQDpWXDt TUUoZUHnkEqvii7jaI3 wIi8+XHYvdCQ2rRP6fS 7eVnMiQiY3QJiaX117T mSylTZjGnvfG90aF6Fc dXA+SSFePkw2UPZxcJb zGB6eoYZgJWpiQd1lPE X1ZwQnXtMyCAyvB7PfI XUplnslbejfdAS5ZLDy IZPklP07Gc2rdSvbXa5 xHANuVGW4UPSwlDVmV8 OjkJ4cDwJlAEAkMFOtE 8FhwZPyVGxbY730GYgn NoC1NORddvSwU1JaQHT rsUhxPoN5b8O5Dl8DtY qiqYXaTV2lZlXpBXv1O 7HhOwy9PJUdlUwxIY7x yBXfETboEd6fnIoxjCm gOY5kZCPtkbrrj501Bl Cdu2jkUWHmrLVuXThpD HV0Q52fs8S4IOAxZUTk WMQ3jTF5rZ2wgHpzeto gbGVmdDsgdmVydGljYW jmENfvV433CQInyNcsE bCQCrp5S7CrOhc4EXIm qBbaOM9pyGLoBAoeAw6 laPwgeEalTL6wHXAbtl dyu269EqHwj1paXVXme TNaDUkdDVP6K88vz2U8 ZPZpFQXiEPW5oYT2cV1 hbGlnbjogbGVmdDsgdm HgvErwHDumMGnlA273Q TTdwTehUv1GRvs4C6Gb Khh7LPExfHipTM4cuLS eCDefCy0tvOjgiFzdRU 9cHPMiqyifu890MyRbp 5vpBRJesSLdHRcaRKF8 V41py2Z6UYXpBGCwLHT 6uTL3lP2wyKiviuskgV VmdDsgdmVydGljYWwtY NimR679QWWkpOaoGzBo eWVyOjwvdGQ+GQ62vd2 9I3LwKwptHsk1EPRqHB G0uCN8mO7wCFLvVNshz 6U4oGO2L9MqzeIknj0o b2x (more content not included)... [facility] Dehydroepiandrosterone (DHEA ) LCon 11-20-2022 Dehydroepiandrosterone (DHEA) LC 340 ng/dL Invalid Interpretation Code 31-701 [facility] Comment on above: Result Comment: This test was developed and its performance characteristics determined by [facility]. It has not been cleared or approved by the Food and Drug Administration. Performed At: [address] [id number] Morris Nayak MD Ph:[phone] Performed By: #### 6 [id number], [id number], [id number] #### [facility] (DEFAULT) [address] [place] [address] Dehydroepiandrosterone Sulfa te LCon 11-18-2022 DHEA-Sulfate LC 612.0 ug/dL High 110.0-431.7 [facility] Comment on above: Result Comment: Perf ormed At: [address] [id number] Bibi Irwin PhD Ph:[phone] Performed By: #### 5 [id number], [id number] #### [facility] (DEFAULT) [address] [place] [address] FSH and LH LCon 11-18-2022 FSH LC 1.9 mIU/mL Invalid Interpretation Code [facility] Comment on above: Result Comment: Adul t Female: Follicular phase 3.5 - 12.5 Ovulation phase 4.7 - 21.5 Luteal phase 1.7 - 7.7 Postmenopausal 25.8 - 134.8 Performed At: [address] [id number] Bibi Irwin PhD Ph:[phone] Performed By: #### 0 [id number], [id number], [id number] #### [facility] (DEFAULT) [address] [place] [address] 44973 LH LC 1.9 mIU/mL Invalid Interpretation Code [facility] Comment on above: Result Comment: Adul t Female: Follicular phase 2.4 - 12.6 Ovulation phase 14.0 - 95.6 Luteal phase 1.0 - 11.4 Postmenopausal 7.7 - 58.5 Performed By: #### 9 [id number], [id number], [id number] #### [facility] (DEFAULT) [address] [place] [address]874 .Auto Diff 1on 11-17-2022 Auto Jefferson % 5 % Normal 1-12 [facility] Comment on above: Performed By: #### 7 [id number], [id number] #### [facility] (DEFAULT) [address] [place] [address]97 Baso Abs# 0.1 x10 Normal 0.0-0.2 [facility] Comment on above: Performed By: #### 5 [id number], [id number] #### [facility] (DEFAULT) [address] [place] [address] Basophils/100 WBC (Bld) 1.0 % Normal 0.2-2.0 [facility] Comment on above: Performed By: #### 2 [id number], [id number], [id number] #### [facility] (DEFAULT) [address] [place] [address]34 Eos Abs# 0.1 x10 Normal 0.0-0.4 [facility] Comment on above: Performed By: #### 3 [id number], [id number], [id number] #### [facility] (DEFAULT) [address] [place] [address] 67298 Eosinophils/100 WBC (Bld) 0.7 % Low 0.9-4.0 [facility] Comment on above: Performed By: #### 5 [id number], [id number], [id number] #### [facility] (DEFAULT) [address] [place] [address] 86796 Lymph Abs# 1.9 x10 Normal 1.3-2.9 [facility] Comment on above: Performed By: #### 0 [id number], [id number], [id number] #### [facility] (DEFAULT) [address] [place] [address]27 Lymphocytes/100 WBC (Bld) 19 % Normal 14-48 [facility] Comment on above: Performed By: #### 5 [id number], [id number], [id number] #### [facility] (DEFAULT) [address] [place] [address] Jefferson Abs# 0.5 x10 Normal 0.0-0.8 [facility] Comment on above: Performed By: #### 7 [id number], [id number], [id number] #### [facility] (DEFAULT) [address] [place] [address] Neut Abs# 7.7 x10 Normal 1.5-9.2 [facility] Comment on above: Performed By: #### 3 [id number], [id number], [id number] #### [facility] (DEFAULT) [address] [place] [address] Neutrophils/100 WBC (Bld) 75 % Normal 44-88 [facility] Comment on above: Performed By: #### 7 [id number], [id number], [id number] #### [facility] (DEFAULT) [address] [place] [address] CBC w/ Auto Diffon 3 Erythrocyte distribution width (RBC) [Ratio] 12.9 % Normal 11.5-15.0 [facility] Comment on above: Performed By: #### 8 [id number], [id number], [id number] #### [facility] (DEFAULT) [address] [place] [address] Hematocrit (Bld) [Volume fraction] 41.8 % High 33.7-40.4 [facility] Comment on above: Performed By: #### 1 [id number], [id number], [id number] #### [facility] (DEFAULT) [address] [place] [address] Hemoglobin (Bld) [Mass/Vol] 14.0 g/dL Normal 11.3-15.9 [facility] Comment on above: Performed By: #### 0 [id number], [id number], [id number] #### [facility] (DEFAULT) [address] [place] [address] 79863 Man Diff? Auto Invalid Interpretation Code [facility] Comment on above: Performed By: #### 4 [id number], [id number], [id number] #### [facility] (DEFAULT) [address] [place] [address] 27339 MCH (RBC) [Entitic mass] 29 pg Normal 24-34 [facility] Comment on above: Performed By: #### 1 [id number], [id number], [id number] #### [facility] (DEFAULT) [address] [place] [address] 86615 MCHC (RBC) [Mass/Vol] 34 g/dL Normal 26-37 [facility] Comment on above: Performed By: #### 3 [id number], [id number], [id number] #### [facility] (DEFAULT) [address] [place] [address] 06619 MCV (RBC) [Entitic vol] 87 fL Normal 81-100 [facility] Comment on above: Performed By: #### 4 [id number], [id number], [id number] #### [facility] (DEFAULT) [address] [place] [address] 86990 Platelet 280 x10 Normal 138-427 [facility] Comment on above: Performed By: #### 2 [id number], [id number], [id number] #### [facility] (DEFAULT) [address] [place] [address] 30108 Platelet mean volume (Bld) [Entitic vol] 8.0 fL Normal 6.3-10.2 [facility] Comment on above: Performed By: #### 6 [id number], [id number], [id number] #### [facility] (DEFAULT) [address] [place] [address] 65610 RBC 4.83 x10 Normal 3.70-5.30 [facility] Comment on above: Performed By: #### 6 [id number], [id number], [id number] #### [facility] (DEFAULT) [address] [place] [address] 25281 WBC 10.3 x10 Normal 3.5-10.5 [facility] Comment on above: Performed By: #### 0 [id number], [id number], [id number] #### [facility] (DEFAULT) [address] [place] [address] Free T4on 11-17-2022 Free T4 [Mass/Vol] 1.06 ng/dL Normal 0.61-1.12 [facility] Comment on above: Performed By: #### 3 [id number], [id number], [id number] #### [facility] (DEFAULT) [address] [place] [address] HgbA1c Standardon 11-17-2022 .Hb 15.7 Invalid Interpretation Code [facility] Comment on above: Performed By: #### 0 [id number], [id number] #### [facility] (DEFAULT) [address] [place] [address] .Hgb A1c 0.55 g/dL Invalid Interpretation Code [facility] Comment on above: Performed By: #### 6 [id number], [id number] #### [facility] (DEFAULT) [address] [place] [address] Glucose [Mass/Vol] 105 mg/dL Invalid Interpretation Code [facility] Comment on above: Performed By: #### 2 [id number] #### [facility] (DEFAULT) [address] [place] [address] HbA1c (Bld) [Mass fraction] 5.3 % Normal 4.6-6.2 [facility] Comment on above: Performed By: #### 4 [id number], [id number] #### [facility] (DEFAULT) [address] [place] [address] Provider Orderson 11-17-2022 Provider Orders [id number] 07#1.00OTGTIFF Normal [facility] TSHon 11-17-2022 TSH Qn 1.26 m[IU]/L Normal 0.45-5.33 [facility] Comment on above: Performed By: #### 7 [id number], [id number] #### [facility] (DEFAULT) [address] [place] [address]02 hCG Quantitativeon hCG Quantitative <0.6 Normal 0.0-0.6 [facility] Comment on above: Result Comment: Post -Menopausal Reference Range is: 0.1-11.6 mIU/mL Performed By: #### 4 [id number], [id number] #### [facility] (DEFAULT) [address] [place] [address]378 Lab - Toxicology Resultson 10-20-2022 Lab - Toxicology Results [id number] [id number] 1#1.00OTGTIFF Normal [facility] QuantiFERON-TB Gold Pluson 10-20-2022 QuantiFERON-TB Gold Plus Negative Invalid Interpretation Code Negative [facility] Comment on above: Result Comment: No r esponse to M tuberculosis antigens detected. Infection with M tuberculosis is unlikely, but high risk individuals should be considered for additional testing (ATS/IDSA/CDC Clinical Practice Guidelines, 2017). The reference range is an Antigen minus Nil result of <0.35 IU/mL. Chemiluminescence immunoassay methodology Performed At: [address] [id number] Bibi Irwin PhD Ph:[phone] Performed By: #### 5 [id number], [id number], [id number] #### [facility] (DEFAULT) [address] [place] [address] QuantiFERON Incubation Incubation performed. Invalid Interpretation Code [facility] Comment on above: Result Comment: Perf ormed At: [address] [id number] Bibi Irwin PhD Ph:[phone] Performed By: #### 0 [id number], [id number], [id number] #### [facility] (DEFAULT) [address] [place] [address]152 HBSab Qnt LCon 06-27-2023 Hep B Surf Ab Quant LC <3.1 Low Immunity>9.9 [facility] Comment on above: Result Comment: Stat us of Immunity Anti-HBs Level Inconsistent with Immunity 0.0 - 9.9 Consistent with Immunity >9.9 Performed At: [address] [id number] Bibi Iwrin PhD Ph:[phone] Performed By: #### 8 [id number], [id number] #### [facility] (DEFAULT) [address] [place] [address] Measles/Mumps/Rubella Immuni ty [facility] 10-19-2022 Mumps Abs, IgG LC 132.0 AU/mL Invalid Interpretation Code Immune >10.9 [facility] Comment on above: Result Comment: Nega tive <9.0 Equivocal 9.0 - 10.9 Positive >10.9 A positive result generally indicates past exposure to Mumps virus or previous vaccination. Performed At: [address] [id number] Bibi Irwin PhD Ph:[phone] Performed By: #### 1 [id number], [id number], [id number] #### [facility] (DEFAULT) [address] [place] [address] 12964 Rubella Antibodies, IgG LC 1.78 index Invalid Interpretation Code Immune >0.99 [facility] Comment on above: Result Comment: Non- immune <0.90 Equivocal 0.90 - 0.99 Immune >0.99 Performed By: #### 0 [id number], [id number] #### [facility] (DEFAULT) [address] [place] [address]8835 Rubeola Ab, IgG, EIA LC >300.0 Invalid Interpretation Code Immune >16.4 [facility] Comment on above: Result Comment: Nega tive <13.5 Equivocal 13.5 - 16.4 Positive >16.4 Presence of antibodies to Rubeola is presumptive evidence of immunity except when acute infection is suspected. Performed By: #### 6 [id number] #### [facility] (DEFAULT) [address] [place] [address] Nicotine Metabolite, Urine L Con 10-19-2022 Cotinine LC Negative Invalid Interpretation Code Cmzbex=133 [facility] Comment on above: Result Comment: Perf ormed At: [facility] [place] [address] [place], [place] [id number] Rachel Garcia PhD Ph:[phone] Performed By: #### 7 [id number], [id number] #### [facility] (DEFAULT) [address] [place] [address] US Pelvic Complete w/Transva ginalon 06-21-2022 US [...] by Pepito Martins on 06/22/2022 1125 Normal [facility] Manager Hematology XR Abdomen Single View (KUB) *on 06-18-2022 XR Abdomen Single View (KUB)* COMPARISON: NONE. FINDINGS: The bowel gas pattern is unremarkable. There are no dilated loops of bowel. There are no acute osseous changes. IMPRESSION: There are no acute changes. Report reported and signed by ALONSO PADRON on 06/19/2022 1201 Normal [facility] CBC AUTO DIFFon 12-12-2020 BASO # 0.1 103/ul Normal 0.0-0.1 [facility] Comment on above: Performed By: #### C BC #### [facility] [address] [id number] Jatin Tracey Basophils/100 WBC (Bld) 0.7 % Normal 0.2-2.0 [facility] Comment on above: Performed By: #### C BC #### [facility] [address] [place], [place] [address] Jatin Tracey EO # 0.4 103/ul Normal 0.0-0.7 [facility] Comment on above: Performed By: #### C BC #### [facility] [address] [place], [place] [address] Jatin Tracey Eosinophils/100 WBC (Bld) 3.4 % Normal 0.9-7.0 [facility] Comment on above: Performed By: #### C BC #### [facility] [address] [place], [place] [address] Jatin Tracey Erythrocyte distribution width (RBC) [Ratio] 11.8 % Normal 11.0-15.0 [facility] Comment on above: Performed By: #### C BC #### [facility] [address] [place], [place] [address] Jatin Tracey Hematocrit (Bld) [Volume fraction] 42.6 % Normal 36.0-48.0 [facility] Comment on above: Performed By: #### C BC #### [facility] [address] [place], [place] [address] Jatin Tracey Hemoglobin (Bld) [Mass/Vol] 14.3 g/dL Normal 12.0-16.0 [facility] Comment on above: Performed By: #### C BC #### [facility] [address] [place], [place] [address] Jatin Tracey IG # 0.03 10e3/ul Normal 0.00-0.03 [facility] Comment on above: Performed By: #### C BC #### [facility] [address] [place], [place] [address] Jatin Tracey IG % 0.3 % Normal 0.0-0.5 [facility] Comment on above: Performed By: #### C BC #### [facility] [address] [place] [address] Jatinandrez Vergaraen LYMPH # 2.2 103/ul Normal 1.2-3.8 [facility] Comment on above: Performed By: #### C BC #### [facility] [address] [place] [address] Jatinandrez Webb Lymphocytes/100 WBC (Bld) 20.7 % Normal 20.5-60.0 [facility] Comment on above: Performed By: #### C BC #### [facility] [address] [place] [address] Jatinandrez Webb MANUAL DIFF REQ NO Normal [facility] Comment on above: Performed By: #### C BC #### [facility] [address] [place] [address] Jatinandrez Vergaraen MCH (RBC) [Entitic mass] 30.4 pg Normal 26.7-34.0 [facility] Comment on above: Performed By: #### C BC #### [facility] [address] [place] [address] Jatinandrez Webb MCHC (RBC) [Mass/Vol] 33.6 g/dL Normal 29.9-35.2 [facility] Comment on above: Performed By: #### C BC #### [facility] [address] [place] [address] Jatinandrez Webb MCV (RBC) [Entitic vol] 90.4 fL Normal 81.0-99.0 [facility] Comment on above: Performed By: #### C BC #### [facility] [address] [place] [address] Jatin Tracey MONO # 0.6 103/ul Normal 0.3-0.8 [facility] Comment on above: Performed By: #### C BC #### [facility] [address] [place] [address] Jatinandrez Vergaraen Monocytes/100 WBC (Bld) 6.0 % Normal 1.7-12.0 [facility] Comment on above: Performed By: #### C BC #### [facility] [address] [place], [place] [address] Jatin Webb NEUT # 7.3 103/ul Critically high 1.4-6.5 [facility] Comment on above: Performed By: #### C BC #### [facility] [address] [place], [place] [address] Jatin Webb Neutrophils/100 WBC (Bld) 68.9 % Normal 43.0-75.0 [facility] Comment on above: Performed By: #### C BC #### [facility] [address] [place], [place] [address] Jatin Webb Platelet mean volume (Bld) [Entitic vol] 9.7 fL Normal 9.5-13.5 [facility] Comment on above: Performed By: #### C BC #### [facility] [address] [place] [address] Jatin Webb PLT 252 103/ul Normal 150-450 [facility] Comment on above: Performed By: #### C BC #### [facility] [address] [place], [place] [address] Jatin Webb RBC 4.71 106/ul Normal 4.20-5.40 [facility] Comment on above: Performed By: #### C BC #### [facility] [address] [place], [place] [address] Jatin Webb WBC 10.6 103/ul Normal 4.0-11.0 [facility] Comment on above: Performed By: #### C BC #### [facility] [address] [place], [place] [address] Jatin Webb CT ABD/PELV W CONon 12-13-19 [...] Sabiha RUSHING Date: 2020-12-12 04:08 Normal [facility] PREG HCG QUALon 12-12-2020 , QUAL Negative Normal NEGATIVE [facility] Comment on above: Performed By: #### P REG #### [facility] [address] [place] [address] Jatin Webb PROF 14(COMP METB)on 021 Albumin [Mass/Vol] 3.9 g/dL Normal 3.5-5.0 [facility] Comment on above: Performed By: #### C MP #### [facility] [address] [place], [place] [address] Jatin Webb Albumin/Globulin [Mass ratio] 1.1 {ratio} Normal [facility] Comment on above: Performed By: #### C MP #### [facility] [address] [place], [place] [address] Jatin Webb ALP [Catalytic activity/Vol] 93 U/L Normal 38-126 [facility] Comment on above: Performed By: #### C MP #### [facility] [address] [place], [place] [address] Jatin Webb ALT [Catalytic activity/Vol] 16 U/L Normal 9-52 [facility] Comment on above: Performed By: #### C MP #### [facility] [address] [place], [place] [address] Jatin Webb Anion gap [Moles/Vol] 17.1 mmol/L Normal [facility] Comment on above: Performed By: #### C MP #### [facility] [address] [id number] Jatin Tracey AST [Catalytic activity/Vol] 3 U/L Critically low 14-36 [facility] Comment on above: Performed By: #### C MP #### [facility] [address] [id number] Jatin Tracey Bilirubin [Mass/Vol] 0.3 mg/dL Normal 0.2-1.3 [facility] Comment on above: Performed By: #### C MP #### [facility] [address] [address] Jatin Tracey Calcium [Mass/Vol] 8.9 mg/dL Normal 8.4-10.2 [facility] Comment on above: Performed By: #### C MP #### [facility] [address] [address] Jatin Tracey Chloride [Moles/Vol] 106 mmol/L Normal 98-107 [facility] Comment on above: Performed By: #### C MP #### [facility] [address] [id number] Jatin Tracey CO2 [Moles/Vol] 23.0 mmol/L Normal 22.0-30.0 [facility] Comment on above: Performed By: #### C MP #### [facility] [address] [address] Jatin Tracey Creatinine [Mass/Vol] 0.76 mg/dL Normal 0.52-1.04 [facility] Comment on above: Performed By: #### C MP #### [facility] [address] [phone] Jatin Tracey EGFR-AF [place]LANDER >60 Normal >=60 [facility] Comment on above: Performed By: #### C MP #### [facility] [address] [phone] Jatin Tracey EGFR-NON AF [place] >60 Normal >=60 [facility] Comment on above: Performed By: #### C MP #### [facility] [address] [id number] Jatin Tracey Globulin (S) [Mass/Vol] 3.7 g/dL Normal [facility] Comment on above: Performed By: #### C MP #### [facility] [address] [place], [place] [address] Jatin Tracey Glucose [Mass/Vol] 96 mg/dL Normal 74-106 [facility] Comment on above: Performed By: #### C MP #### [facility] [address] [address] Jatin Tracey Potassium [Moles/Vol] 4.1 mmol/L Normal 3.4-5.0 [facility] Comment on above: Performed By: #### C MP #### [facility] [address] [place] [address] Jatin Tracey Protein [Mass/Vol] 7.6 g/dL Normal 6.1-8.2 [facility] Comment on above: Performed By: #### C MP #### [facility] [address] [place] [address] Jatin Tracey Sodium [Moles/Vol] 142 mmol/L Normal 137-145 [facility] Comment on above: Performed By: #### C MP #### [facility] [address] [place] [address] Jatin Tracey Urea nitrogen [Mass/Vol] 14.0 mg/dL Normal 6.4-19.3 [facility] Comment on above: Performed By: #### C MP #### [facility] [address] [place], [place] [address] Jatin Tracey Urea nitrogen/Creatinine [Mass ratio] 18.4 mg/mg Normal [facility] Comment on above: Performed By: #### C MP #### [facility] [address] [place], [place] [address] Jatin Tracey PROTIMEon 12-12-2020 INR Coag (PPP) [Relative time] 1.00 {INR} Normal [facility] Comment on above: Performed By: #### P TT, PT #### [facility] [address] [place], [place] [address] Jatin Tracey INR GUIDELINES SEE BELOW Normal [facility] Comment on above: Result Comment: MAHESH RED INR: 2.0 - 3.0 CONDITIONS NOT LISTED BELOW 2.5 - 3.5 FOR PROSTHETIC HEART VALVE REPLACEMENT 2.5 - 3.5 RECURRENT THROMBOSIS Performed By: #### P TT, PT #### [facility] [address] [place], [place] [address] Jatin Webb PT Coag (PPP) [Time] 10.8 s Normal 9.0-11.6 [facility] Comment on above: Performed By: #### P TT, PT #### [facility] [address] [place], [place] [address] Jatin eWbb PTTon 12-12-2020 aPTT Coag (Bld) [Time] 26.2 s Normal 22.3-36.2 [facility] Comment on above: Performed By: #### P TT, PT #### [facility] [address] [place], [place] [address] Jatin Webb XR CHEST 1 Von 12-12-2020 XR CHEST 1 V EXAM: XR CHEST 1 V HISTORY: Chest pain left-sided rib pain COMPARISON: None. TECHNIQUE: Single frontal view chest x-ray FINDINGS: No lobar consolidation, large effusions, pneumothorax, or discrete acute bony abnormality. Cardiac size unremarkable. IMPRESSION: No radiographic evidence for acute chest abnormality. Electronically authenticated by: ODALIS BRICENO Date: 2020-12-12 03:25 Normal [facility] Vital Signs Date Time Vital Sign Value Performing Clinician Ralph llamas 03-26-2024 11:04-0500 Body mass index (BMI) [Ratio] 41.33 kg/m2 Yaritza CAMARILLO Work Phone: [facility] 03-26-2024 11:04-0500 Body weight 109.23 kg Yaritza CAMARILLO Work Phone: [facility] 03-26-2024 11:04-0500 Diastolic blood pressure 76 mm[Hg] Yaritza CAMARILLO Work Phone: [facility] 03-26-2024 11:04-0500 Systolic blood pressure 118 mm[Hg] Yaritza CAMARILLO Work Phone: [facility] 03-08-2024 11:32-0500 Body mass index (BMI) [Ratio] 40.92 kg/m2 Waldo Alia DO Work Phone: [facility] 03-08-2024 11:32-0500 Body weight 108.14 kg Waldo Alia DO Work Phone: [facility] 03-08-2024 11:32-0500 Diastolic blood pressure 68 mm[Hg] Waldo Alia DO Work Phone: [facility] 03-08-2024 11:32-0500 Systolic blood pressure 120 mm[Hg] Waldo Alia DO Work Phone: [facility] 02-23-2024 13:55-0400 Body mass index (BMI) [Ratio] 40.51 kg/m2 Yaritza Aldie PA Work Phone: [facility] 02-23-2024 13:55-0400 Body weight 107.05 kg Yaritza Aldie PA Work Phone: [facility] 02-23-2024 13:55-0400 Diastolic blood pressure 74 mm[Hg] Yaritza Lindsey PA Work Phone: [facility] 02-23-2024 13:55-0400 Systolic blood pressure 118 mm[Hg] Yaritza Aldie PA Work Phone: [facility] 02-07-2024 10:54-0400 Body mass index (BMI) [Ratio] 39.95 kg/m2 Yaritza Aldie PA Work Phone: [facility] 02-07-2024 10:54-0400 Body weight 105.58 kg Yaritza Aldie PA Work Phone: [facility] 02-07-2024 10:54-0400 Diastolic blood pressure 72 mm[Hg] Yaritza Lindsey PA Work Phone: [facility] 02-07-2024 10:54-0400 Systolic blood pressure 116 mm[Hg] Yaritza Aldie PA Work Phone: [facility] Healthcare Encounters Encounter Date Encounter Type Care Provider Facility Start: 03-26-2024 End: 03-26-2024 Bamboo flowsheet Yaritza CAMARILLO Work Phone: [facility] Start: 03-26-2024 End: 03-26-2024 Bamboo flowsheet Yaritza CAMARILLO Work Phone: [facility] Start: 03-26-2024 End: 03-26-2024 ambulatory YARITZA PORTILLO Not Available Start: 03-26-2024 End: 03-26-2024 flow sheet Yaritza CAMARILLO Work Phone: [facility] Comment on above: Dyspepsia (Primary D x); Third trimester ; 35 weeks gestation of Start: 03-15-2024 End: 03-15-2024 Clinisync Result Encounter Waldo Alia DO Work Phone: [facility] External Department Unsolicited Start: 03-15-2024 End: 03-15-2024 Clinisync Result Encounter Waldo Alia DO Work Phone: [facility] External Department Unsolicited Start: 03-08-2024 End: 03-08-2024 Bamboo flowsheet Waldo Alia DO Work Phone: [facility] Start: 03-08-2024 End: 03-08-2024 Bamboo flowsheet Waldo Alia DO Work Phone: [facility] Start: 03-08-2024 End: 03-08-2024 ambulatory WALDO ALIA Not Available Start: 03-08-2024 End: 03-08-2024 flow sheet Waldo Alia DO Work Phone: [facility] Comment on above: 32 weeks gestation o f ; Third trimester ; Gastroesophageal reflux in ; Nausea/vomiting in ; Hematuria, unspecified type Start: 02-23-2024 End: 02-23-2024 Bamboo flowsheet Yaritza CAMARILLO Work Phone: [facility] Start: 02-23-2024 End: 02-23-2024 Bamboo flowsheet Yaritza CAMARILLO Work Phone: [facility] Start: 02-23-2024 End: 02-23-2024 ambulatory YARITZA LINDSEY Not Available Start: 02-23-2024 End: 02-23-2024 flow sheet Yaritza CAMARILLO Work Phone: [facility] Comment on above: Third trimester preg lakeisha; 30 weeks gestation of Start: 02-07-2024 End: 02-07-2024 Bamboo flowsheet Yaritza CAMARILLO Work Phone: [facility] Start: 02-07-2024 End: 02-07-2024 Bamboo flowsheet Yaritza CAMARILLO Work Phone: [facility] Start: 02-07-2024 End: 02-07-2024 ambulatory YARITZA LINDSEY Not Available Start: 02-07-2024 End: 02-07-2024 flow [...] Unsolicited Start: 01-12-2024 End: 01-12-2024 ambulatory WALDO ALIA Not Available Start: 12-14-2023 End: 12-14-2023 ambulatory YARITZA PORTILLO Not Available Start: 10-31-2023 End: 10-31-2023 ambulatory WALDO ALIA Not Available Start: 10-06-2023 End: 10-06-2023 ambulatory WALDO R ALIA Facility:[facility] Start: 09-29-2023 End: 09-29-2023 ambulatory SARAH NELSON Not Available Start: 08-02-2023 End: 08-02-2023 ambulatory SARAH NELSON Not Available Start: 04-22-2023 End: 04-22-2023 ambulatory Leah Paigeer Facility:[facility] Start: 04-13-2023 End: 04-13-2023 ambulatory SARAH NELSON Not Available Start: 01-10-2023 End: 01-10-2023 ambulatory [facility] Facility:[facility] Start: 12-11-2022 ambulatory [facility] Facility:[facility] Start: 11-29-2022 End: 11-29-2022 ambulatory [facility] Facility:[facility] Start: 11-17-2022 End: 11-17-2022 ambulatory WALDOMarcellus GARCIAO Facility:[facility] Start: 10-18-2022 End: 10-18-2022 ambulatory [facility] Facility:[facility] Start: 12-12-2020 End: 12-12-[address] BRANDON LE Facility:[facility] Procedures Date Procedure Procedure Detail Performing Clinician Start: 03-26-2024 Urnls dip stick/tabl et rgnt non-auto w/o micrscp Yaritza ACMARILLO Work Phone: Start: 03-15-2024 [facility] UA (CLEAN/CATCH) RN INFORMATICS/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 Waldo Alia DO Work Phone: Start: 03-08-2024 Urnls dip stick/tabl et rgnt non-auto w/o micrscp Waldo Alia DO Work Phone: Start: 02-23-2024 Urnls dip stick/tabl et rgnt non-auto w/o micrscp Yaritza CAMARILLO Work Phone: Start: 02-07-2024 Urnls dip stick/tabl et rgnt non-auto w/o micrscp Yaritza CAMARILLO Work Phone: Start: 02-06-2024 GLUCOSE 1 HOUR Waldo Fa zio DO Work Phone: Start: 12-14-2023 Cytp cerv/vag auto t hin layer prep mnl screen Waldo Alia DO Work Phone: Plan of Treatment Date Care Activity Detail Author Start: 03-26-2024 End: 03-26-2024 Patient encounter procedure 03/26/2024 10:20 AM EST Routine [facility] [address] [place] [id number] Yaritza Portillo PA [address] [place] [address] [facility] Start: 03-08-2024 End: 03-08-2024 Patient encounter procedure 03/08/2024 11:00 AM EST Routine [facility] [address] [place] [address] Waldo Rjoo DO [address] [place] [place], [place] [id number] [facility] Start: 02-23-2024 End: 02-23-2024 Patient encounter procedure 02/23/2024 1:30 PM EDT Routine [facility] [address] [place] [address] Yaritza Portillo PA [address] [place] [address] [facility] Start: 02-08-2024 End: 02-08-2024 Patient encounter procedure 02/08/2024 1:50 PM EDT Routine [facility] [address] [place] [id number] Yaritza Portillo, PA [address] [place] [address] [place] [address] [facility] Start: 02-07-2024 End: 02-06-2025 US for US OB SCAN FOR GROWTH Imaging Routine Excessive growth affecting management of , antepartum, single or unspecified fetus Expected: 02/07/2024 (Approximate), Expires: 02/06/2025 [facility] Work Phone: Comment on above: Expected: 02/07/2024 (Approximate), Expires: 02/06/2025 Start: 12-25-2023 Influenza vaccination Influenza Vacc ine (#1) [facility] Bacteria identified in Urine by Culture Urine culture Microbiology Routine Hematuria, unspecified type Ordered: 03/08/2024 [facility] Work Phone: Comment on above: Ordered: 03/08/2024 Immunizations Immunization Date Immunization Notes Care Provider Laverne carranza 03-01-2014 hepatitis A vaccine, pediatric/adolescent dosage, 2 dose schedule Generic Provider [facility] 07-26-2013 hepatitis A vaccine, pediatric/adolescent dosage, 2 dose schedule Generic Provider [facility] 07-26-2013 meningococcal polysa ccharide (groups A, C, Y and W-135) diphtheria toxoid conjugate vaccine (MCV4P) Generic Provider [facility] 07-26-2013 tetanus toxoid, redu mary beth diphtheria toxoid, and acellular pertussis vaccine, adsorbed Generic Provider [facility] 07-26-2013 varicella virus vaccine [facility] 05-16-2012 influenza virus vacc ine, whole virus Generic [facility] 05-16-2012 influenza virus vacc ine, unspecified formulation Generic Provider [facility] 02-12-2009 novel influenza-H1N1 -09, preservative-free, injectable Generic [facility] 04-29[facility]2008 influenza virus vacc ine, whole virus Generic Provider [facility] 03-29-2007 influenza, seasonal, injectable Generic Provider [facility] 09-15-2006 diphtheria, tetanus toxoids and acellular pertussis vaccine, 5 pertussis antigens Generic Provider [facility] 09-15-2006 haemophilus influenz ae type b vaccine, HbOC conjugate Generic Provider [facility] 09-15-2006 measles, mumps and r ubella virus vaccine Generic Provider [facility] 09-15-2006 poliovirus vaccine, inactivated Generic Provider [facility] 07-30-2002 diphtheria, tetanus toxoids and acellular pertussis vaccine, unspecified formulation Generic Provider [facility] 07-30-2002 haemophilus influenz ae type b vaccine, conjugate unspecified formulation Generic Provider [facility] 07-30-2002 measles, mumps and r ubella virus vaccine Generic Provider [facility] 07-30-2002 varicella virus vaccine Generic Prov ider [facility] 2001 diphtheria, tetanus toxoids and acellular pertussis vaccine, unspecified formulation Generic Provider [facility] 2001 haemophilus influenz ae type b vaccine, conjugate unspecified formulation Generic Provider [facility] 2001 hepatitis B vaccine, pediatric or pediatric/adolescent dosage Generic Provider [facility] [place] [facility] 2001 poliovirus vaccine, unspecified formulation Generic Provider [facility] 2001 diphtheria, tetanus toxoids and acellular pertussis vaccine, unspecified formulation Generic Provider [facility] 2001 haemophilus influenz ae type b vaccine, conjugate unspecified formulation Generic Provider [facility] 2001 pneumococcal conjuga te vaccine, 7 valent Generic Provider [facility] 2001 poliovirus vaccine, unspecified formulation Generic Provider [facility] 2001 diphtheria, tetanus toxoids and acellular pertussis vaccine, unspecified formulation Generic Provider [facility] 2001 haemophilus influenz ae type b vaccine, conjugate unspecified formulation Generic Provider [facility] 2001 hepatitis B vaccine, pediatric or pediatric/adolescent dosage Generic Provider [facility] are 2001 poliovirus vaccine, unspecified formulation Generic Provider [facility] 2001 hepatitis B vaccine, pediatric or pediatric/adolescent dosage Generic Provider [facility] are Payers Date Payer Category Payer Unknown [id number] 2022 Unknown 2022 Medicaid (Managed Care) [employer] [id number] 2022 [facility] [id number] 2022 Unknown [id number] 2001 Unknown [id number] 2.16.840.1.031635.3.579.2. 593 2001 Unknown [id number] 2.16.840.1.700942.3.579.2. 718 2001 Unknown [id number] 2.16.840.1.299696.3.579.2. 718 2001 Unknown [id number] 2.16.840.1.641466.3.579.2. 718 2001 Unknown [id number] 2.16.840.1.207884.3.579.2. 718 2001 Unknown [id number] 2.16.840.1.888724.3.579.2. 718 2001 Unknown [id number] 2.16.840.1.846396.3.579.2. 1259 2001 Unknown [id number] 2.16.840.1.597544.3.579.2. 9 2001 Unknown [id number] 2.16.840.1.484756.3.579.2. 9 2001 Unknown [id number] 2.16.840.1.614070.3.579.2. 9 2001 Unknown [id number] 2.16.840.1.078272.3.579.2. 1259 2001 Unknown [id number] 2.16.840.1.931342.3.579.2. 9 2001 Unknown [id number] 2.16.840.1.634004.3.579.2. 1259 2001 Unknown [id number] 2.16.840.1.806192.3.579.2. 1259 2001 Unknown [id number] 2.16.840.1.111657.3.579.2. 1259 2001 Unknown [id number] 2.16.840.1.636638.3.579.2. 1259 1959 Unknown [id number] 1959 Unknown [id number] Social History Date Type Detail Facility Start: 04-13-2023 Tobacco smoking status NHIS Ex-smoke r [facility] History of tobacco use Current smoker [facility] History of tobacco use Cigarette Sm[facility] Start: 04-13-2023 Tobacco use and exposure User of smokeless tobacco [facility] Start: 01-12-2024 End: 03-26-2024 Alcoholic beverage intake Current drinker of alcohol [...] [facility] History of Present illness Narrative 03-26-2024 MARQUISE Scott - 03/26/2024 10:20 AM EST Note Date & Type Note Facility 03-26-2024 History of Presen t illness Narrative Reason for Appointment: Patient ID: Brynn Wallace is a 23 y.o. female who presents for Routine Visit Patient presents today for Return OB appointment. MEDICATIONS Current Outpatient Medications Medication Instructions cephalexin (KEFLEX) 500 mg, Oral, 3 times daily metoclopramide (REGLAN) 10 mg, Oral, 3 times daily ondansetron ODT (ZOFRAN-ODT) 4 mg, Oral, Every 4 hours PRN pantoprazole (PROTONIX) 40 mg, Oral, Daily before breakfast, Do not crush, chew, or split. ALLERGIES Allergies Allergen Reactions Buspirone Other Reaction(s): [...] female 03/04/2023 Gastritis and duodenitis 06/03/2015 Grieving ([facility]) 03/04/2023 Infertility, female 03/04/2023 Menstrual cramps [...] SYSTEMS Review of Systems: Review of Systems All other systems reviewed and are negative. OBJECTIVE Objective: Physical Exam Constitutional: Appearance: Normal [...] reviewed. Vitals: Estimated body mass index is 41.33 kg/m as calculated from the following: Height as of 24: 5' 4 . Weight as of this encounter: 240 lb 12.8 oz. BP: 118/76 No LMP recorded. Patient is . ASSESSMENT & PLAN ICD-10-CM 1. Third trimester Z34.93 POCT urinalysis dipstick manually resulted 2. 35 weeks gestation of Z3A.35 POCT urinalysis dipstick manually resulted Return OB: Patient presents today for a routine obstetrics appointment. Patient is currently 35w1d . Patient states she is doing well but has complaints of being tired due to current . Patient has verbalizes frequent movement. labor precautions was discussed/given and patient was instructed to perform kick counts three times a day. Improving from UTI but with complaints of dyspepsia treated with Protonix and reglan. Orders Placed This Encounter Procedures POCT urinalysis dipstick manually resulted Follow Up: Patient is to return to office in 1 week for routine OB appointment. Documented by MARQUISE Scott on behalf of: MARQUISE Scott documented in this encounter [facility] History of Present illness Narrative 03-08-2024 Sera Parsons, RESIDENTIAL CARPENTER - 03/08/2024 11:00 AM EST Note Date & Type Note Facility 03-08-2024 History of Presen t illness Narrative Reason for Appointment: Patient ID: Brynn Wallace is a 23 y.o. female who presents for Well Women Visit Patient presents today for Return OB appointment. MEDICATIONS Current Outpatient Medications Medication Instructions metoclopramide (REGLAN) 10 mg, Oral, 3 times daily ondansetron ODT (ZOFRAN-ODT) 4 mg, Oral, Every 4 hours PRN pantoprazole (PROTONIX) 40 mg, Oral, Daily before breakfast, Do not crush, chew, or split. ALLERGIES Allergies Allergen Reactions Buspirone Other Reaction(s): Increased anxiety/hallucinations Cholestatin Other Reaction(s): Unknown Lurasidone Other Reaction(s): restlessness Latuda Other Unknown PROBLEMS Active Ambulatory Problems Diagnosis Date Noted Attention deficit hyperactivity disorder (ADHD) ([facility]) 08/30/2022 Bipolar II disorder ([facility]) 08/30/2022 Acute non intractable tension-type headache 12/11/2019 Adjustment disorder with depressed mood ([facility]) 12/11/2019 Allergic rhinitis 11/23/2018 Amenorrhea 02/23/2021 Anxiety 03/23/2016 Attention deficit 03/04/2023 Chronic fatigue 03/04/2023 Chronic gastritis without bleeding 03/04/2023 Dysfunction of both eustachian tubes 12/07/2018 Dyspareunia due to medical condition in female 03/04/2023 Gastritis and duodenitis 06/03/2015 Grieving ([facility]) 03/04/2023 Infertility, female 03/04/2023 Menstrual cramps 07/04/2017 Pelvic congestion syndrome 03/04/2023 Slow transit constipation 04/11/2017 Vitamin D deficiency 03/13/2019 Migraine with aura and with status migrainosus, not intractable ([facility]) 05/27/2020 Mixed anxiety and depressive disorder 12/25/2019 [...] tube, bilateral Adjustment disorder with depressed mood ([facility]) 12/11/2019 Allergic rhinitis unspecified seasonality, unspecified trigger [...] SYSTEMS Review of Systems: Review of Systems All other systems reviewed and are negative. OBJECTIVE Objective: Physical Exam Constitutional: Appearance: Normal [...] nursing note reviewed. Exam conducted with a tire shop manager present. Vitals: Estimated body mass index is 40.92 kg/m as calculated from the following: Height as of 08/02/23: 5' 4 . Weight as of this encounter: 238 lb 6.4 oz. BP: 120/68 No LMP recorded. Patient is . ASSESSMENT & PLAN ICD-10-CM 1. 32 weeks gestation of Z3A.32 POCT urinalysis dipstick manually resulted 2. Third trimester Z34.93 POCT urinalysis dipstick manually resulted 3. Gastroesophageal reflux in O99.619 pantoprazole (Protonix) 40 MG EC tablet K21.9 ondansetron ODT (Zofran-ODT) 4 MG disintegrating tablet DISCONTINUED: omeprazole (PriLOSEC) [address] capsule 4. Nausea/vomiting in O21.9 ondansetron ODT (Zofran-ODT) 4 MG disintegrating tablet DISCONTINUED: ondansetron ODT (Zofran-ODT) 4 MG disintegrating tablet 5. Hematuria, unspecified type R31.9 Urine culture Patient presents today for a routine obstetrics appointment. Patient is currently 32w4d with a Estimated Date of Delivery: 04/29/24. Patient voiced that Omeprazole is not helping much with reflux. Protonix sent to pharmacy and dc'd omeprazole. Zofran refills sent to pharmacy as well. Patient to return to clinic in 2 weeks for routine OB appointment. -*-unfortunately, sample was disposed of prior to being sent out for culture. 3:42pm Called patient and informed her that order could be sent to lab of her choice to be sent out. Patient would like for order to be sent to [facility] so she did not have to drive back to [place]. Informed patient that order would be sent to [facility] Scheduling for her to go give urine sample. --ss Documented by Sera Parsons LPN on behalf of: Waldo Rojo DO documented in this encounter [facility] History of Present illness Narrative 02-23-2024 [...] female 03/04/2023 Gastritis and duodenitis 06/03/2015 Grieving ([facility]) 03/04/2023 Infertility, female 03/04/2023 Menstrual cramps 07/04/2017 Pelvic congestion syndrome 03/04/2023 Slow transit constipation 04/11/2017 Vitamin D deficiency 03/13/2019 Migraine with aura and with status migrainosus, not intractable ([facility]) 05/27/2020 Mixed anxiety and depressive disorder 12/25/2019 [...] tube, bilateral Adjustment disorder with depressed mood (CMS/HCC) 12/11/2019 Allergic rhinitis unspecified seasonality, unspecified trigger [...] nursing note reviewed. Exam conducted with a tire shop manager present. Vitals: Estimated body mass index is [...] of: MARQUISE Scott documented in this encounter [facility] Clinical Note 01-10-2023 Note Date [...] these instructions at home: Medicines ? Take fgyy-rqk-mvaiivv and prescription medicines only as told by [...] and water are not available, use hand airport driver. Contact a health care provider if: ? [...] can cause a sore throat. ? Take xmnl-lxv-yjpxjyi medicines only as told by your health [...] Reviewed: 07/08/2021 Elsevier Patient Education ? 2022 [employer] Viral Illness, Adult Viruses are tiny [...] person who is (more content not included)... [facility] Evaluation note Note Date & Type Note Facility Evaluation note Diagnosis Second trimester state, incidental 28 weeks gestation of Heartburn during in third trimester Skin yeast infection Candidiasis of skin and nails Excessive growth affecting management of , antepartum, single or unspecified fetus documented in this encounter [facility] Evaluation note Note Date & Type Note Facility Evaluation note Diagnosis Third trimester state, incidental 30 weeks gestation of documented in this encounter [facility] Evaluation note Note Date & Type Note Facility Evaluation note Diagnosis 32 weeks gestation of Third trimester state, incidental Gastroesophageal reflux in Nausea/vomiting in Unspecified vomiting of , unspecified as to episode of care Hematuria, unspecified type documented in this encounter [facility] Evaluation note Note Date & Type Note Facility Evaluation note Diagnosis Dyspepsia- Primary Dyspepsia and other specified disorders of function of stomach Third trimester state, incidental 35 weeks gestation of documented in this encounter [...] and content) DATE CREATED AUTHOR 12/15/2020 [facility] [place] [facility] DATE CREATED AUTHOR AUTHOR'S ORGANIZ ATION 06/23/2022 [facility] dical Specialist DATE CREATED AUTHOR AUTHOR'S ORGANIZ ATION 10/13/2023 [facility] DATE CREATED AUTHOR AUTHOR'S ORGANIZ ATION 03/27/2024 [facility] dical Specialists EPIC Care Teams (unrecognized sec tion and content) Forensic Materials Engineer Relationship Specialty Start Date End Date Jeannie Reynolds MD [address] [place] [address] PCP - General Family Medicine 09/21/22 Sarah Nelson NP [address] [place] [address] Nurse Practitioner Family Medicine 09/21/22 Forensic Materials Engineer Relationship Specialty Start Date End Date Jeannie Reynolds MD [address] [facility] [place] [address] PCP - General Family Medicine 09/21/22 Sarah Nelson NP [address] [facility] [place] [address] Nurse Practitioner Family Medicine 09/21/22 Forensic Materials Engineer Relationship Specialty Start Date End Date Jeannie Reynolds MD [address] [facility] [place] [address] PCP - General Family Medicine 09/21/22 Sarah Nelson NP [address] [place] [address] Nurse Practitioner Family Medicine 09/21/22 Forensic Materials Engineer Relationship Specialty Start Date End Date Jeannie Reynolds MD [address] [place] [address] PCP - General Family Medicine 09/21/22 Anila Schneider, GUARD IMMIGRATION-RN INFORMATICS [address] [address] PCP - [employer] 08/23/22 Sarah Nelson NP [address] [place] [address] Nurse Practitioner Family Medicine 09/21/22 Forensic Materials Engineer Relationship Specialty Start Date End Date Jeannie Reynolds MD [address] [place] [address] PCP - General Family Medicine 09/21/22 Anila Schneider, GUARD IMMIGRATION-RN INFORMATICS [address] [address] PCP - [employer] 08/23/22 Sarah Nelson NP [address] [place] [address] Nurse Practitioner Family Medicine 09/21/22 Forensic Materials Engineer Relationship Specialty Start Date End Date Jeannie Reynolds MD [address] [place] [address] PCP - General Family Medicine 09/21/22 Anila Schneider GUARD IMMIGRATION-RN INFORMATICS [address] [address] PCP - [employer] 08/23/22 Sarah Nelson NP [address] [place] [address] Nurse Practitioner Family Medicine 09/21/22 Forensic Materials Engineer Relationship Specialty Start Date End Date Jeannie Reynolds MD [address] [place] [address] PCP - General Family Medicine 09/21/22 Anila Schneider, [employer]ARD [employer]MM[employer]RATION-RN INFORMATICS [address] [address] PCP - [employer] 08/23/22 Sarah Nelson NP [address] [place] [address] Nurse Practitioner Family Medicine 09/21/22 Forensic Materials Engineer Relationship Specialty Start Date End Date Jeannie Reynolds MD [address] [place] [address] PCP - General Family Medicine 09/21/22 Anila Schneider, GUARD IMMIGRATION-RN INFORMATICS [address] [address] PCP - [employer] 08/23/22 Sarah Nelson NP [address] [place] [address] Nurse Practitioner Family Medicine 09/21/22 Forensic Materials Engineer Relationship Specialty Start Date End Date Jeannie Reynolds MD [address] [place] [address] PCP - General Family Medicine 09/21/22 Anila Schneider, [facility] [address] [address] PCP - [employer] 08/23/22 Sarah Nelson NP [address] [place] [address] Nurse Practitioner Family Medicine 09/21/22 Forensic Materials Engineer Relationship Specialty Start Date End Date Jeannie Reynolds MD [address] [place] [address] PCP - General Family Medicine 09/21/22 Anila Schneider, [facility] [address] [address] PCP - [employer] 08/23/22 Sarah Nelson NP [address] [place] [address] Nurse Practitioner Family Medicine 09/21/22 Reason for Visit (unrecogniz ed section and content) Reason Comments Routine Visit Reason Comments Well Women Visit FOR RECORDS PERTAINING TO PATIENTS WHO [...] BE BASED ON THE PRIMARY CLINICAL RECORDS. [facility]. provides no warranty or guarantee of the accuracy or completeness of information in this document.
== END 2024-04-04 19:32 | disposition home or self-care (01) ==
LOC: LAB 19:31
PROVIDERS: PCP Family Medicine; Visit Provider Obstetrics & Gynecology
DX: Z34.93 Encounter for supervision of normal pregnancy, unspecified, third trimester (principal)
CPT/HCPCS: 36415; 87081; 87150

== ENCOUNTER 2024-04-11 14:37 | Observation (INO) | payer BC, OTHER, SELFPAY ==
--- NOTE | 2024-04-11 14:56 | US_ITS ---
[place] [id number] Patient Name: BRYNN WALLACE MRN: [id number] date: 2000 Sex: F Assigned Patient Location: [facility] Current Patient Location: [facility] Accession/Order Number: [id number] Exam Date: 04/11/2024 15:20 Report Date: 04/11/2024 15:49 At the request of: WALDO CAMP Procedure: US OB BPP w non-stress EXAMINATION: US OB BPP w non-stress HISTORY:decreased movement COMPARISON: Ultrasound OB biophysical 03/15/2024 TECHNIQUE: Ultrasound biophysical profile was performed in the radiology department. BREATHING MOVEMENTS: 2 GROSS BODY MOVEMENTS: 2 TONE: 2 QUALITATIVE AMNIOTIC FLUID VOLUME: 2 PRESENTATION: CEPHALIC HEART RATE: 133.00 bpm AMNIOTIC FLUID VOLUME: 12.99 cm GESTATIONAL AGE: 37 weeks 3 days US/US OB BPP w non-stress IMPRESSION: Total biophysical profile score: 8 Electronically authenticated by: RUFUS CHOUDHURY Date: 04/11/2024 15:49
== END 2024-04-11 16:20 | disposition home or self-care (01) ==
LOC: FBC 14:39
PROVIDERS: Admitting Provider Obstetrics & Gynecology; PCP Family Medicine; Visit Provider Obstetrics & Gynecology
DX: O36.8130 Decreased fetal movements, third trimester, not applicable or unspecified (principal); Z3A.37 37 weeks gestation of pregnancy
CPT/HCPCS: 76818; G0378; G0379

== ENCOUNTER 2024-04-13 18:46 | Outpatient (OUT) | payer BC, OTHER, SELFPAY ==
--- NOTE | 2024-04-13 18:51 | US_ITS ---
[address] [address] Patient Name: BRYNN WALLACE MRN: [id number] date: 2000 Sex: F Assigned Patient Location: US Current Patient Location: Accession/Order Number: [id number] Exam Date: 04/13/2024 19:00 Report Date: 04/14/2024 08:22 At the request of: HANNAH PORTILLO Procedure: US OB growth EXAMINATION: US OB growth HISTORY: EXCESSIVE GROWTH AFFECTING O36.63X0 COMPARISON: Ultrasound OB growth 02/23/2024 FINDINGS: Heart Rate: 121.62 bpm Amniotic Fluid Volume: 10.0 cm; normal range. Number: 1 Position: CEPHALIC BIOMETRY: BPD: 8.86 cm; 35 weeks 6 days; 20.60 % HC: 32.65 cm; 37 weeks 0 days; 15 % AC: 34.18 cm; 38 weeks 1 day; 76.10 % FL: 7.08 cm; 36 weeks 2 days; 17.30 % EFW: 3163.24 g; 48.60 % FL/AC: 20.70 FL/BPD: 79.81 HC/AC: 0.96 GESTATIONAL AGE: Age by EDC: 37 weeks 5 days JAYE by EDC: 2024-04-29 Age by US: 36 weeks 6 days JAYE by US: 2024-05-05 US/US OB growth IMPRESSION: 1. Single live intrauterine with growth detailed above. 2. Possible nuchal cord. Consider follow-up. Electronically authenticated by: RUFUS CHOUDHURY Date: 04/14/2024 08:22
--- OUTSIDE RECORDS SUMMARY | 2024-04-13 18:52 | XMS_ITS | CCD ---
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 IJ7C4MiybA5ORQjtKDb HzqmuNACyJ9xqxcui0j hlydrJqOfBBTyGTl9QZ w1SWRniEncYhSaQB15F AF5DFXzzmRdC1LcDKMe vDyqXeY1f1L1Sc5LZ9U WHeeqP8IUKTZJTCbnsK Q+KA39xn04H3PsZiicD jk7QCXvDXK5yKN2qI5i OYSnMSzwi8M4oCN4I0J ztiQpre0tt9buUKRjRU pbB50iwFRjj5W0DOZzt JC7QNXfrOzgHzSwfI29 Oyc+ZROpsObji9YyCep ye2bgw1elnWy7IbddVQ IsjyLjpXtlTSO9v6KnB y9vZBHvaLC1dQJ8wV4g DaYbAkB4WRruF706GlT xdOKlMyxaN98rP1YovE A+MESkXjr9PPAxtOcfS E8gU9DyIMDewuganPNo aTvyCL7uUYWxbifeUYK bmQ9oHJEaP4t3IhTwHa X4BOavD6HtWLPttyeyI h49iH1mClOqNyO5NJck I1KosnG5LSJlgKJtYSm uRFY0Z48pn6K4OWSwCT GnAXU8wPQ7iA5vmWgmw jogbGVmdDsgdmVydGlj SWrcNKqdU810DRWvxYq nPkNvZGluZyBEYXRlOi AgMDYvMTgvMjAyNDwvd GQ+RUHtYEB2uOgxYZSj fRDjCQmpSf5azUyxlDe dGP4cUESmgjbgNVBxqP 8mWTVljTBnoErwID0vX TJqhspyu447AdGfTRI5 EPWsgMGeD6RzbR8iFyI bOUWwFGBgK4JqqEIxKA ybH712JGykCgN2GIRkh vZvZ3GrLEWimJgxSkL2 n8U4An2Xc7YjsunqD7I isXNkNnOkHmlwMZo7B1 RkPjwvdHI+SB89SOOiW C13FQu4IDU2uWwiUUjm RWJaH3BtzW8aGvJrJPV kZGRkOyc+PHRhYmxlIH dpZHRoPScxMDAlJyBzd MlhQG4dKu0vPZNwEPRn hVctuMDsYjFat9chALS iTGeyXO1nhCqjC3SchX Z5QLCfx5d8Xq83W76qS 3JvdXA+XGFmkAL9qCD9 kJ4kKvOzAqF9YKvaT26 5OsJrqLEtDiwvl9uek6 dliOu1OgM5IKBeffOvb ZqjAEI1n2CyMa60O38r IHdpZHRoPSIxNSUiIHZ ieTrivc1cuK3pLq7+PG HovZR5nUG6pU0uPsWcG iP8NTtuE800LlIvqXOw Sabju0voy6cewYu2TzB sJITcfvIbqGcnZAI6q2 PdGx44C7XacOqxb8DdZ og7rd85pVMrq0J3oHR6 Y3KqVWEzrrvimQHnrZz gAI4vWUCojdzsBRGvzO 1lUFCmK4i9JjWdDzA7C ZckN3HjqiY3FXUgkXRh AOSlbUIIkY7wxmryv3n zigipKiRhFKQwDOe3FQ s7HNGslUzjAyArXGL2S vC9ISE7gWCthW4eyEls imhjfD2cXlm+LBH4aWT rjDTBEM7gZzohnQC+PH QnEOO4yKbvFTwgJGMia S2lSMMzC3h3ZqVvMxO8 ICluH3HtqhU3WBOviEK bOJNzrKLKxJ5yzprxr0 pytavaHiIrSSNqOIe4D Hh5UXGgwHhyNxEpRFF8 ZwE0BCS3yRMroC1weYr kegefjJ1pOfr+QmlydG saBBH7IQc1J3QzLek5S RQksFmtWK4eoAPmZEpy Rc1hkEipkIjnBM0tOFT onjajj585IjOvi6etCE VguQMuQRkpRMT7A75en 5U8LNEiYRSiGAH6qNW0 oB7xbEwtbmxuqWXqiTk gdmVydGljYWwtYWxpZ2 57UNCblYfoUfMxQLd5N 1YjOof0XWXjaTndUI0f eGYxPLtsOv0ytHalsNc kWG6nGAKahezmm220Wa Ykc0ppSXXbsAZwYLajR QU3K98jj8F6RHExJPUm XWC3fPG3tJ2ceNkwvrm gbGVmdDsgdmVydGljYW maLMyzV119PXXpaLncD vIytSo9G6PnFzm2PDTq zXltLZ2zjVLqKLudXc8 kqZyzaKwvNB2wLYCmpe pyv416RpIhx1mkGLPxb ZHgCSvaJRR7B45sd7Z5 HOPlJCRcJIY1mQK4lO6 hbGlnbjogbGVmdDsgdm ApyHexPQusLGdqC751S HRvcDsnPlBhdGllbnQg QOorNGh3O5YwEeplfGQ +HK67SOZmMC32kLEsuK Igc9nsgCz3DzSeDPXtU VC9rNkpYKjqn6CsVIWm O97wuULqi4M1OVRczPr kvZAxPtThgAF8aG6qCE jxvhevq5qtkmjkEbljd 6qjkr20mU15Z43tORkd ZHRoPSIzMCUiIHZhbGl dcz7mkH4xPd7+PGNvbC Q6qNE5dB2iMLWjPaU5V QleW597ZwBtpUOcInnq q6ntc2dlmGn4BxV0OWY hgsOlgXnpHGX0e3LbJo 33O66jKQxhPXHnYVQdV EIqSLYkhSfmge0roG4d Ii8+PNMigQU5hUC4qK0 jQrIcCsW6LEqhB368Qn GxuPNdYgskH86jZ7Ygo XA+GAWxJwk8FGBfuNvs AD3loZQqVOqnEk0uZAU 9BdBeObWmGAaaD9LbPM RgvyrpfwecySA6DRWlC OPlkS50Ow1akBadRMUm aCUHuS7omadti9bfnuq iVuCgSCEnAKu7HCf3XT BcxAexRoDjAXI5MyX8J YL6xHSwrB0jnRhaqndd gV8iN2IrNNUntvubQc7 9oQ1uTyWpAqK6ZQwqOh c+QkFLRVIsIEFMRVhBT kRSQSBNSUNIRUxMRTwv dGQ+LPFjIMJ3gBtqVRq aKCKavT3nOIJnP5z1Fo JjTtV7VBxtT0YlZSGkp ttaYd25eI8eDhBgYvA1 UFcaX0IuxsU2IRQrhNX iFFrgJUW2X93ce8J1NI SmRQDkVLC3iUO6xR5km GlnbjogbGVmdDsgdmVy pRduKPweEUxoS474XOJ ukMqmRuQvElX1DgDhWL I8Z6FaJym4EPZwoVxbG V1knYHzRIszWw7vhZvj sLxlAG5wGFOvawxmIVR dyG9zQUWlvQLclMalON 5fBZKquwpmx440WyQqK UP6CZGhrYUbH4LlgM1n CdXqDURmISTvC5PxyPL tXQljX878ZNzbOtW1WK IsqqHyH8KvWMOsrRaaP uS9i4P4Gn8hMbKUELCa czwvdGQ+AFYyTXQ3tSj kWWywPGRfuD6nAMGkZ2 y6PpWzRnZ4IYefO2NkS RPwyqttGj83cK6yDfVj VxG7FVgjU7YkizO4LJT caHPgCDwcHYA5Y88zt2 F5ABLyRBLiMTG3tGZ0v D8muAbtyxvbmJNpvTzp ylEctEdvPGacUPldZ93 6IHRvcDsnPkZFTUFMRT wvdGQ+RCJcPGS4uSjgH HcqWMMyrW3aSLEhB0z6 KqHdAkI9OLwtN0OcLHG xtyvuQe19dY2hBhObYu G3PGktV8MfjjW7XOBbb KUpGZdiSVK4W86cb6R1 CGYfIVMtQVS2pDB2aX7 hbGlnbjogbGVmdDsgdm ImjZpoBJomKBfyZ260W QEcrAtlHa1UIV26RL09 B2GsLiyhhNUlfKR+PHR hYmxlIHdpZHRoPScxMD HmDmOblFvyVV8kQf9zU GVyLWNvbGxhcHNlOiBj g8paTTCyHTyhTG8rsRh nA5JhzJX5BEZpf8i0Kr 76Y18uR7IdpAS+PGNvb UN1bPB7tU9eGkYgMqW2 MIeaO032JhEsbXIiEed ji0piy7nztCw4YmOoAJ HlvcObeGolDTG4p8AsN x57F25wISaoCBBoBPHx GFQpNNItlZinmb9btG1 wIi8+NDNisLF9yJK8mF 0nWlUaJwZ2QHldV980N mYrtSWeGjyiU59fN1Ov dXA+CRUvErg8OVSpuCp rOY7vxIDwZGrwVm0kPW H5EgCzCkKdOXsaH9LlW NGulwjabvrbbXI1YVCc XPBjpG96Ms6fwPelDe1 nSTScDYD7SIBiqQOrV1 ZjkR5iBnWoUCPnKYTfC 9FauHAvLFhgF523JYkj TqO0XTJrqdBiK0LxYKX onFdaEvN9s9E5Zp3PuM gweBYiYZ6uCsKcSNa3S 0OjKim7YQRzjKzaIC3x cBKeSUagKs2dmSxoxCt gTE6oBDLzqguyd510Uq Beb1btJMGyeNSeHLanI CP5R98gz8J6ATTsINYb ZUF2kIJ3dV3vqAujfse gbGVmdDsgdmVydGljYW nwKJsgL433AKDwkGsbH hWMCrt5G8NkCcu7KWXa bFewSV6ooBIaLMefLk9 bnYyvyWnfXS8zAPNcaq rli311NoAda4tmHEKty AEzTWhbDLU5F65fv9T7 JQOnRFIjQYK8kEJ2dM1 hbGlnbjogbGVmdDsgdm YnjEdnQHgjFIsnW524A NDxcJcxLv7FQqs1C5Tl Omf1UZDtfVguOF7dlJH iTSixLh5trWqheEfdZL 8xJWOzkiyae698JtNho 5bsBKNuvSKtIKhqJEF4 R06uv5O7HZCtVMRrVSB 2qFH7eB0jlCfozlycqT VmdDsgdmVydGljYWwtY DxoM233HJNccNpsNpYc eWVyOjwvdGQ+UV87ki7 4P4BvHijaWnx7ITGnZQ K9aEU1fO0yVSViQEzlh 7R0pRY3U9SxsrXkte1p b2x (more content not included)... [facility] C Urineon 10-08-2023 C Urine 45,000 cfu/ml [...] Vanc S 2 Verified Normal [facility] Comment on above: Performed By: #### 4 [id number], [id number], [id number] #### [facility] (DEFAULT) [address] [place] [address] 67752 HBsAg Screen LCon 10-07-2023 HBsAg Screen LC Negative Invalid Interpretation Code Negative [facility] Comment on above: Result Comment: Perf ormed At: [address] [id number] Bibi Irwin PhD Ph:[phone] Performed By: #### 3 [id number] #### [facility] (DEFAULT) [address] [place] [address] 29426 HCV Antibody LCon 10-07-2023 Hep C Virus Ab LC Non-Reactive Invalid Interpretation Code Non Reactive [facility] Comment on above: Result Comment: HCV antibody alone does not differentiate between previously resolved infection and active infection. Equivocal and Reactive HCV antibody results should be followed up with an HCV RNA test to support the diagnosis of active HCV infection. Performed At: [address] [id number] Bibi Irwin PhD Ph:[phone] Performed By: #### 3 [id number] #### [facility] (DEFAULT) [address] [place] [address] 33663 HIV 4th Gen Screen w Reflex LCon 10-07-2023 HIV Scr 4th Gen LC Non-Reactive Invalid Interpretation Code Non Reactive [facility] Comment on above: Result Comment: HIV Negative HIV-1/HIV-2 antibodies and HIV-1 p24 antigen were NOT detected. There is no laboratory evidence of HIV infection. Performed At: [address] [id number] Bibi Irwin PhD Ph:[phone] Performed By: #### 1 [id number] #### [facility] (DEFAULT) [address] [place] [address] 16189 RPR, Rfx Qn RPR/Confirm TP L Con 10-07-2023 RPR LC Non-Reactive Invalid Interpretation Code Non Reactive [facility] Comment on above: Result Comment: Perf ormed At: [address] [id number] Bibi Irwin PhD Ph:[phone] Performed By: #### 3 [id number] #### [facility] (DEFAULT) [address] [place] [address] 17155 Rubella Antibodies, IgG LCon 10-07-2023 Rubella Antibodies, IgG LC 1.90 index Invalid Interpretation Code Immune >0.99 [facility] Comment on above: Result Comment: Non- immune <0.90 Equivocal 0.90 - 0.99 Immune >0.99 Performed At: [address] [id number] Bibi Irwin PhD Ph:[phone] Performed By: #### 3 [id number] #### [facility] (DEFAULT) [address] [place] [address] .Auto Diff 110-06-2023 Auto [place] % 4 % Normal 1-12 [facility] Comment on above: Performed By: #### 1 [id number], 95493553, 9201234, 55857368, 1427200274, 0567206, 43977136, 70999953, 97194565, 71389759 #### [facility] (DEFAULT) [address] [place] [address] 00282 Baso Abs# 0.0 x10 Normal 0.0-0.2 [facility] Comment on above: Performed By: #### 1 [id number], 33904094, 6144270, 58074603, 1186635354, 3291881, 32516046, 99315215, 66182472, 54315965 #### [facility] (DEFAULT) [address] [place], [place] [address] Basophils/100 WBC (Bld) 0.4 % Normal 0.2-2.0 [facility] Comment on above: Performed By: #### 1 [id number], 69975039, 2111847, 13494963, 1684708327, 7007727, 47902422, 16820841, 72406018, 98790155 #### [facility] (DEFAULT) [address] [place] [address] Eos Abs# 0.0 x10 Normal 0.0-0.4 [facility] Comment on above: Performed By: #### 1 [id number], 18059500, 9871737, 25013453, 1919162309, 1228458, 42500954, 59122952, 13751270, 15272266 #### [facility] (DEFAULT) [address] [place] [address] 39982 Eosinophils/100 WBC (Bld) 0.3 % Low 0.9-4.0 [facility] Comment on above: Performed By: #### 1 [id number], 12118606, 9313291, 06381938, 2902483432, 7626234, 58382150, 12416115, 92414904, 65732549 #### [facility] (DEFAULT) [address] [place] [address] 96664 Lymph Abs# 1.5 x10 Normal 1.3-2.9 [facility] Comment on above: Performed By: #### 1 [id number], 60653680, 7331711, 13360570, 0387404838, 5936650, 43114798, 08017834, 95311051, 93189611 #### [facility] (DEFAULT) [address] [place] [address] 88659 Lymphocytes/100 WBC (Bld) 13 % Low 14-48 [facility] Comment on above: Performed By: #### 1 [id number], 05863438, 8384894, 24926743, 9795994274, 3945287, 21483208, 17105433, 50424532, 51580724 #### [facility] (DEFAULT) [address] [place] [address] 47686 [place] Abs# 0.5 x10 Normal 0.0-0.8 [facility] Comment on above: Performed By: #### 1 315568056, 11293901, 9452568, 15969665, 6920839584, 0453140, 49548295, 82998300, 23009165, 65270590 #### [facility] (DEFAULT) [address] [place] [address] 32280 Neut Abs# 9.8 x10 High 1.5-9.2 [facility] Comment on above: Performed By: #### 1 [id number], 92690650, 3256667, 82434962, 3679361138, 1182339, 32176237, 55815701, 68395823, 68554576 #### [facility] (DEFAULT) [address] [place] [address] 73409 Neutrophils/100 WBC (Bld) 82 % Normal 44-88 [facility] Comment on above: Performed By: #### 1 [id number], 28088219, 7310227, 12046029, 4499031341, 3492885, 15777874, 71936732, 46908234, 23435104 #### [facility] (DEFAULT) [address] [place] [address] 25809 ABORhon 10-06-2023 ABO and Rh group Nom (Bld) Hx Check: Not Found Anti-A: 0 Anti-B: 0 Anti-D: 0 DCon: NT A1: 4+ B: 4+ ABORh Interp: O NEG Invalid Interpretation Code [facility] Comment on above: Performed By: #### 1 [id number], 22582086, 7805936, 92213481, 4136429015, 9116218, 48820924, 74960095, 92347377, 77559067 #### [facility] (DEFAULT) [address] [place] [address] 53575 ABORh Retypeon 10-06-2023 ABO and Rh group Nom (Bld) Ordered by Discern. Anti-A: 0 Anti-B: 0 Anti-D: 0 DCon: NT A1: 4+ B: 3+ ABORh Retype: O NEG Invalid Interpretation Code [facility] Comment on above: Performed By: #### 1 [id number], 10866238, 6080120, 44827078, 5398950339, 1406384, 50783672, 76132443, 38314285, 54869740 #### [facility] (DEFAULT) [address] [place] [address] 90017 ABSC Gelon 10-06-2023 ABSC Gel Negative Normal [facility] Comment on above: Performed By: #### 3 [id number] #### [facility] (DEFAULT) [address] [place] [address] CBC w/ Auto Diffon Erythrocyte distribution width (RBC) [Ratio] 13.3 % Normal 11.5-15.0 [facility] Comment on above: Performed By: #### 1 [id number], 98240620, 0551301, 46205510, 5066636025, 9254977, 42549193, 82143096, 91391175, 90413245 #### [facility] (DEFAULT) [address] [place] [address] Hematocrit (Bld) [Volume fraction] 41.2 % High 33.7-40.4 [facility] Comment on above: Performed By: #### 1 [id number], 86688512, 7201703, 03515487, 5413321946, 7022213, 26027153, 08819528, 22125499, 63014349 #### [facility] (DEFAULT) [address] [place] [address] Hemoglobin (Bld) [Mass/Vol] 13.6 g/dL Normal 11.3-15.9 [facility] Comment on above: Performed By: #### 1 [id number], 67442458, 4361640, 42220023, 9180416400, 4698955, 29349391, 04991095, 18860430, 52942970 #### [facility] (DEFAULT) [address] [place] [address] Man Diff? Auto Invalid Interpretation Code [facility] Comment on above: Performed By: #### 1 [id number], 44126958, 0804741, 37281888, 8625213405, 2596853, 28968637, 63980217, 23226769, 50384226 #### [facility] (DEFAULT) [address] [place] [address] MCH (RBC) [Entitic mass] 28 pg Normal 24-34 [facility] Comment on above: Performed By: #### 1 023120929, 81192555, 6285506, 85183826, 4507429631, 0948469, 81125511, 00009028, 92529235, 06055042 #### [facility] (DEFAULT) [address] [place] [address] 94449 MCHC (RBC) [Mass/Vol] 33 g/dL Normal 26-[address] [facility] Comment on above: Performed By: #### 1 [id number], 33409541, 3856782, 08575901, 0993430254, 3600441, 36300750, 82756785, 58538183, 90748097 #### [facility] (DEFAULT) [address] [place], [place] [address] MCV (RBC) [Entitic vol] 86 fL Normal 81-100 [facility] Comment on above: Performed By: #### 1 [id number], 54954135, 6683278, 00945617, 2869608591, 5263251, 33914272, 68266702, 78692230, 25525863 #### [facility] (DEFAULT) [address] [place] [address] Platelet 267 x10 Normal 138-427 [facility] Comment on above: Performed By: #### 1 [id number], 70124674, 2771008, 18888053, 4006294751, 0522702, 17829640, 34152376, 05857768, 17650225 #### [facility] (DEFAULT) [address] [place] [address] 83031 Platelet mean volume (Bld) [Entitic vol] 8.4 fL Normal 6.3-10.2 [facility] Comment on above: Performed By: #### 1 [id number], 61755363, 2574052, 09969895, 5942240610, 7414303, 20967558, 40913199, 08461420, 35546143 #### [facility] (DEFAULT) [address] [place] [address] RBC 4.79 x10 Normal 3.70-5.30 [facility] Comment on above: Performed By: #### 1 [id number], 88554975, 0211614, 53811661, 5002177539, 2252642, 48725723, 80430470, 37136158, 89868962 #### [facility] (DEFAULT) [address] [place] [address] WBC 11.8 x10 High 3.5-10.5 [facility] Comment on above: Performed By: #### 1 562209070, 26251550, 0433893, 61905812, 7621837822, 8055976, 84828720, 68304252, 09369403, 45307022 #### [facility] (DEFAULT) [address] [place] [address] HgbA1c Standardon 10-06-2023 .Hb 15.7 Invalid Interpretation Code [facility] Comment on above: Performed By: #### 1 [id number], 92028732, 0488224, 89479461, 8438267146, 4219233, 56480644, 46007358, 53351619, 38051353 #### [facility] (DEFAULT) [address] [place] [address] .Hgb A1c 0.45 g/dL Invalid Interpretation Code [facility] Comment on above: Performed By: #### 1 [id number], 53491547, 3207585, 13773558, 2002865424, 3373039, 21738575, 92762232, 56663083, 58081808 #### [facility] (DEFAULT) [address] [place] [address] Glucose [Mass/Vol] 88 mg/dL Invalid Interpretation Code [facility] Comment on above: Performed By: #### 1 [id number], 19230122, 9875071, 95202645, 3905815804, 2353609, 99873104, 30882768, 98648382, 79502678 #### [facility] (DEFAULT) [address] [place] [address] HbA1c (Bld) [Mass fraction] 4.7 % Normal 4.6-6.2 [facility] Comment on above: Performed By: #### 1 [id number], 68598078, 0327756, 15193195, 0715724383, [id number], [id number], [id number], [id number] #### [facility] (DEFAULT) [address] [place] [address] Provider Orderson 10-06-2023 Provider Orders [id number] #[id number] Normal [facility] Coding Summaryon 07-04-2023 Coding Summary HTMLBase 64 RednzrfjHJk8zTd+PGh lYWQ+LR5HEMFbB17xnI DzxQ2fB9MZVNxNXkyuK MTGBPjTIpAupaEcQE8r aXNjZXJu IC8+JP0cKNExQgcceEI ni4V8iEB3E73gco8eUW bjuTR3UEVqEtAkalfwk 6mwmJj4DYxrWbvlIaLo BBIvxJ92KXX4fN29Dg3 7wMDydXPsh9usdSz5Bk ZaHWHuGFC1lTsiUMqqx 5XjXURoN06ulWQwa5D4 IGNvbGxhcHNlOyBlbXB 6lX4hPZxvrgzaz0wrqd klAef7kf21xHNae4V5e LT3L1WlcfZ3LMLvhTXu OayexVNLrF3smqmmq3q dmoxkIuPeLYYdGPz0OE c7ZLHqdMplLfLjAY43O JJ6MRYylaMxP7VjJMCm yTbuArZ3r8T6Un1AP8R HNtgeT0KAIJXXOQiokH Q+ED90hu77L3HkFiwxE tc7DTBcNPD1wBV6eQ8o OXUmNNvbi8M1hAI6B1A mmzTban9xj7czBSGnZD pjU23vfIKvo7Y7XJCgn NL0JBMoyXllMoIweQ38 Oyc+YUIfbFnya5BxNrd mx4shb0hzwSr6CgfqXY CmbiPraCmxSYK5t4VfL s4fNOJdnSQ3bJN2fZ9a KfFfYyH5GGzcW784IoW naRZcDhyqH01mC2FqsK A+REVwQmv3FNItqExaL W1iS8BgBABfkidrlJEn zTwxSX6lZYIoaxgmDZA mxA2hTTNqN5m6OnEdYb R0IVxmI1EzBYFdrrkcG g02nD4rCiCuRcZ5UNus I3MbzdC1BEAskCYkZDq tRVP8D75jt0F1GWQxJO SsTBZ0bDK2aA3vcYojf jogbGVmdDsgdmVydGlj WFcoJVtyM701FNNzrWl nPkNvZGluZyBEYXRlOi AgMDMvMTEvMjAyNDwvd GQ+KSRsMOI1ePvfGKGb wBZfDUnuVl9qxUtnwDw qYI8rXBMugonhYLJghQ 8pTDBmbCCquVfnLB3mE ZScpehgn379KzZgDZW3 DOKoxJFsN1HdzS2kHeW mYIVqSKAsL0VepBWwUV qxD028WFgqThP1CPUjy sBuJ0PuTIWjtTvsGeB7 t9W6Ti6Pv6ZqnaycW4H ykLXkSaKzOldqRYc4R2 RkPjwvdHI+BU00UMIdQ X32MEw5XFG8fUmzRRax WGUlP6PywP7dBoLvZSN kZGRkOyc+PHRhYmxlIH dpZHRoPScxMDAlJyBzd RbiUP6mWq0lKCUwXLCj hVrsdUExZqAeg0uiOYP jYIogJD2plClvG1AnaH Z3GDXbw1x7Fy16C42dE 3JvdXA+ZNHfzJZ7aBG1 hR1gCrQqElS6SYjjA89 9BzUhsYAnQpgos4ijd8 mtqGh3FzF3VHZtwtSlx QazCOS8w1EvLt01I34e IHdpZHRoPSIxNSUiIHZ gmFixxt3tdC3sPn7+PG GlhIS3cPJ7sH8nEjDiQ rI2MMdyR359EjWcmWZo Gddgg8nfs0nllRv2WrO cIEXlfbBjgYxmOUY1d8 DgCd03O6IbqYdzc7KbC jt9da81bCIpm8S2fGN6 T9JqEDThoioxiKDyyDx fYG8fNYLdhsavRPTxsV 1eXQSfK6u9SiYxUlW4V YboX6JwsaS9ZGFrwHSs FRYhqWBWgL4qqssjd1b xfyuhXxXlEMCwBAz3ZR x0WMPrhIzjJkWmZKU0U eG1UMN9uYPhhX9btOgi tcjlyN9cGzf+YUX0mGN ruPENPL9uNokirSK+PH JhNXJ5oWfkBPlhZAOqj N3tYDNeW3j8PgYsEqS9 CEgaO0IkogG0MADhrIT uOTVxlMISoB2dcmlge1 xxardtPaHvPJCbWDy7Q Ep4RFUweQzbRcZrLGB1 OsG6JMG4dXUwyP9lsOz rpnwobU6jGen+QmlydG ohVKL2PJl5E3IwLgv6J CAhqHgcYC1bcCStYIsg Ha0fhXxezQypFC1bOLR hgkdmd669QhUtu6hdEB QodWBsAVrlOOA5F82xe 5S1IZOnGCHbZUF7pSM2 xU1ynRfmlvoydSFyeHy gdmVydGljYWwtYWxpZ2 32RNLkyXeoYvApONq0K 5YhTcl1RAXjgJqaML6z kFHvECbdJf9jjSnglLj oWY9qILDnmtebe623Ck Kle3smDAYjkCDvLPnrL BU8C36ji7M3KIWzNTZi WAC5mCV0bI9rhNxmpsi gbGVmdDsgdmVydGljYW ppSRfvO153FQVpdAusC dWaxPn5N6IvRks1CWSp aHluHC0ccGEcKUcuYa6 pqMkpxAtzFY4qSECbzt kuv159RqBpw4ucACYmi XQjOHonIES5V37xw0B9 OBUmTFRgICO3cLO4qV9 hbGlnbjogbGVmdDsgdm AcdVlnCYwbBFqxV697Y HRvcDsnPlBhdGllbnQg XJvcBZm3U4DhKoduoHV +YQ42PWNmMF33wWGmqU Klx7qreYk5TzGbTKApB YJ5oBjbCCvce0HaXAUz M46rxPPzl6Y8MQFxyNq lpAQmZyKvlZK3jK1fXI pkpzvml7oizrsyWmqha 7peem46yN17A80yKKwm ZHRoPSIzMCUiIHZhbGl jlk2jwI1aLy6+PGNvbC I7nYT4wG8oLHMuKcC4O HlmR786JbWomTQoDvcj e2jqb3frpZm7ZbV2ZAP rdyCxzLdnJUE5u1RxVb 93I67yDGxjJZCgJHFcQ HYpZOPhhUcziy4yxF2h Ii8+MNTnaIN3jPX7zL9 qSyHcXjL8QKfvN516Xx KdkUSfUdudQ55hD7Pup XA+UFTeLkf5ZLJhwTqx BH1vvESeSUjuPa4tSLQ 7KgRkLlCmVNnvU3IvDZ CkezmzjamyrWW1GEAbZ CSkkV84Ir1rqHoeYXWp tROTrO2qfduwd4bopak bCoPeXZGnMHa0LPi8JY QdtWwfAyUtBLE2BsG5F AO8eLWgfD8hmRvcpfxb tH8sA2PbSXVrtvfcZq6 9nC7jBaVnKxT3RBwqMw c+QkFLRVIsIEFMRVhBT kRSQSBNSUNIRUxMRTwv dGQ+PJCbEJV1dIktBXi oXKFnfI2tHWDaM6p9Zf WqBuN4MHueN4FsLRVkh cnqCc27pY3vHuUfTkT8 ZWsgN1WktjV3JHImzNZ wYGsbIGD0W22lv4S3NR CrALOkHUU3cOE6dJ0uw GlnbjogbGVmdDsgdmVy tNdqOMdkPIrxO259YHO mkPtmIpEnBhV6JrAmVL T9T9GrEin9DSQztJnxU D2cvLCyRUcoJs5ezEvm iIjeJZ0hVGJlzuumLKR uoC0qCOJgvBUdyBlsEQ 3hVHHjvhmnf553VfKfX IX4QFTclFUfQ3JtkL5u DoGfDHRuJYHjA5LrnRF wICueS088AZiyFsE4HG UxbgGcO5CoBQDwpRplX qD8m3K2Rm2pSpJYAAGr czwvdGQ+MHLvBVY6tLe mDIelKFNlmE5lFBKhA9 q2IwIpWzT4QWerO1KuK OVvzcnbAc41qU0rSiKf HqC1TJekA7WpudA6GRF rlOEvWErgQIU1V36yu9 G4GNMiDELcXLA0iMK6m S6sjEwsgxhfxDCrmMfk dhSdtUmbYWisJRrnN60 6IHRvcDsnPkZFTUFMRT wvdGQ+RBIoUZO8nWetQ GjgEQIrlZ6dNSJfU0f2 WmPpCzO5YKgsR9PyDTH heglgBv64jN3vEeDgFb J1SFhgL4IsgjL1LGQue DEvYFxiYZJ3P37lh9F7 HHBgFRVhEEQ4aCM8oE2 hbGlnbjogbGVmdDsgdm LykOcqBZmlJCcgD391O NQaiWdzEsNsN8Giiqph QyZDmHTmCUKuDU07XR5 3AT82Q3VcRwfqkRVahR U+PHRhYmxlIHdpZHRoP RgmZCOoLzOvvGwiSA4z Or8qUAHlMUElqVunrQT pKoFeu3adPLDkYHejPN 4vnPmnD5UvpIQ9OSJix 0o1Zi45M75hR7XhrTA+ EATjxWY2iYU7bV9vQqP wCvB3NWegB644JpBirP IwWfuda6grv8pprTj9C jMwJSIgdmFsaWduPSJ0 x6EeSd50Y08mSIunQWF oPSIyMCUiIHZhbGlnbj 8mwW0lHl0+UZKucEG4g RK5zG2xWpNiKcJ5WIsw U235VpIwqTFsKpeoG46 yS9NxxVL+MWAsVpn8CZ JstZpsPH2wqZOfXWsiX f6nSST5BrZvPxUuIMho S1PhZHTapbzuwbvplXS 4PPQvISRatN00Ks9uqY qzMw0mWDAePHA6BMAhf DYhW6AxrM1uXvSoCJHr CZQiF3XlnCAoTEhrE24 7ELwpXxF2ULLnujAvI2 GpIFVlwOlyQnY4q7C7E s6MvVevoAZkZM1dExSi DQc2T1DcYht5FYTfpBo sLW7ddEHaMBlwQk5zlN iggQynRB8lFYXiwixem 919JyEhs9tzNPGwqKXd YFsvVAO2A76uh5A7PSR vXAFmWOW8rGM9wX8rwM lnbjogbGVmdDsgdmVyd BkvUCdrZRanK849IGZh fCbuOhMRFmw0Z8EqPyx 4KXGsaCwfFE4ckYBbYR byNn0hsJnssEzeJS1zF NNwhyukn095DdKqi1sa LREasDDfJEooIUT4W69 kb0I2LJArNGTmWSS3uX L3qN0okXwhzcgihSUoh DsgdmVydGljYWwtYWxp S806QSRomFzwJz4MGit 2R1OjCjf7QLRnxGgtVZ 0vmCDwJEldOl5jeRluh PwfTF3hFHSxvfxed107 NuCay8ltFSHbzMBbIYa pWXR5P01en6F5AHOmNJ SbLUQ1gPU7rD0upLkxm jogbGVmdDsgdmVydGlj WVwvJTgsS066QAVsuXe nPlBheWVyOjwvdGQ+PC 68mf01O8LrNsflNfa3B SGoMUU5iAE9nD1wNIKk JSc (more content not included)... Normal [facility] .Auto Diff 04-22-2023 Auto [place] % 6 % Normal 05-06 [facility] Comment on above: Performed By: #### 3 [id number] #### [facility] (DEFAULT) [address] [place] [address] 87513 Baso Abs# 0.1 x10 Normal 0.0-0.2 [facility] Comment on above: Performed By: #### 3 [id number] #### [facility] (DEFAULT) [address] [place] [address] 00730 Basophils/100 WBC (Bld) 0.8 % Normal 0.2-2.0 [facility] Comment on above: Performed By: #### 3 [id number] #### [facility] (DEFAULT) [address] [place] [address] 70184 Eos Abs# 0.1 x10 Normal 0.0-0.4 [facility] Comment on above: Performed By: #### 3 [id number] #### [facility] (DEFAULT) [address] [place] [address] 41984 Eosinophils/100 WBC (Bld) 1.8 % Normal 0.9-4.0 [facility] Comment on above: Performed By: #### 3 [id number] #### [facility] (DEFAULT) [address] [place] [address] 18412 Lymph Abs# 2.1 x10 Normal 1.3-2.9 [facility] Comment on above: Performed By: #### 3 [id number] #### [facility] (DEFAULT) [address] [place] [address] 23080 Lymphocytes/100 WBC (Bld) 26 % Normal 14-48 [facility] Comment on above: Performed By: #### 3 [id number] #### [facility] (DEFAULT) [address] [place] [address] 39077 [place] Abs# 0.5 x10 Normal 0.0-0.8 [facility] Comment on above: Performed By: #### 3 [id number] #### [facility] (DEFAULT) [address] [place] [address] 20738 Neut Abs# 5.2 x10 Normal 1.5-9.2 [facility] Comment on above: Performed By: #### 3 [id number] #### [facility] (DEFAULT) [address] [place] [address] 60912 Neutrophils/100 WBC (Bld) 65 % Normal 44-88 [facility] Comment on above: Performed By: #### 3 [id number] #### [facility] (DEFAULT) [address] [place] [address] 18968 CBC w/ Auto Diffon 3 Man Diff? Auto Invalid Interpretation Code [facility] Comment on above: Performed By: #### 3 [id number] #### [facility] (DEFAULT) [address] [place] [address] 71308 Erythrocyte distribution width (RBC) [Ratio] 13.1 % Normal 11.5-15.0 [facility] Comment on above: Performed By: #### 3 [id number] #### [facility] (DEFAULT) [address] [place] [address] 09980 Hematocrit (Bld) [Volume fraction] 40.7 % High 33.7-40.4 [facility] Comment on above: Performed By: #### 3 [id number] #### [facility] (DEFAULT) [address] [place] [address] 76632 Hemoglobin (Bld) [Mass/Vol] 14.0 g/dL Normal 11.3-15.9 [facility] Comment on above: Performed By: #### 3 [id number] #### [facility] (DEFAULT) [address] [place] [address] 57275 MCH (RBC) [Entitic mass] 29 pg Normal 24-34 [facility] Comment on above: Performed By: #### 3 [id number] #### [facility] (DEFAULT) [address] [place] [address] 68028 MCHC (RBC) [Mass/Vol] 34 g/dL Normal 26-[address] [facility] Comment on above: Performed By: #### 3 [id number] #### [facility] (DEFAULT) [address] [place] [address] 90100 MCV (RBC) [Entitic vol] 85 fL Normal 81-100 [facility] Comment on above: Performed By: #### 3 [id number] #### [facility] (DEFAULT) [address] [place] [address] 22484 Platelet 275 x10 Normal 138-427 [facility] Comment on above: Performed By: #### 3 [id number] #### [facility] (DEFAULT) [address] [place] [address] 66920 Platelet mean volume (Bld) [Entitic vol] 7.7 fL Normal 6.3-10.2 [facility] Comment on above: Performed By: #### 3 [id number] #### [facility] (DEFAULT) [address] [place] [address] 66106 RBC 4.79 x10 Normal 3.70-5.30 [facility] Comment on above: Performed By: #### 3 [id number] #### [facility] (DEFAULT) [address] [place] [address] 80421 WBC 7.9 x10 Normal 3.5-10.5 [facility] Comment on above: Performed By: #### 3 [id number] #### [facility] (DEFAULT) [address] [place] [address] 07537 CMP Standardon 04-22-2023 eGFR Non AA >60 Invalid Interpretation Code [facility] Comment on above: Performed By: #### 3 [id number] #### [facility] (DEFAULT) [address] [place] [address] 69348 eGFR AA >60 Invalid Interpretation Code [facility] Comment on above: Performed By: #### 3 [id number] #### [facility] (DEFAULT) [address] [place] [address] 49216 Albumin [Mass/Vol] 4.0 g/dL Normal 3.5-5.0 [facility] Comment on above: Performed By: #### 3 [id number] #### [facility] (DEFAULT) [address] [place] [address] 93039 Albumin/Globulin [Mass ratio] 1.2 {ratio} Low 1.4-2.6 [facility] Comment on above: Performed By: #### 3 [id number] #### [facility] (DEFAULT) [address] [place] [address] 39097 Alk Phos 68 IU/L Normal 32-91 [facility] Comment on above: Performed By: #### 3 [id number] #### [facility] (DEFAULT) [address] [place] [address] 92476 ALT [Catalytic activity/Vol] 14.0 U/L Normal 14.0-54.0 [facility] Comment on above: Performed By: #### 3 [id number] #### [facility] (DEFAULT) [address] [place] [address] 26656 Anion gap [Moles/Vol] 10.9 mmol/L Normal 5.0-19.0 [facility] Comment on above: Performed By: #### 3 [id number] #### [facility] (DEFAULT) [address] [place] [address] 46379 AST [Catalytic activity/Vol] 18 U/L Normal 15-41 [facility] Comment on above: Performed By: #### 3 [id number] #### [facility] (DEFAULT) [address] [place] [address] 70153 Bili Total 0.6 mg/dL Normal 0.3-1.2 [facility] Comment on above: Performed By: #### 3 [id number] #### [facility] (DEFAULT) [address] [place] [address] 66652 Calcium [Mass/Vol] 8.8 mg/dL Low 8.9-10.3 [facility] Comment on above: Performed By: #### 3 [id number] #### [facility] (DEFAULT) [address] [place] [address] 31415 Chloride [Moles/Vol] 107 mmol/L Normal 101-111 [place] Comment on above: Performed By: #### 3 [id number] #### [facility] (DEFAULT) [address] [place] [address] 72640 CO2 [Moles/Vol] 23 mmol/L Normal 21-32 [facility] Comment on above: Performed By: #### 3 [id number] #### [facility] (DEFAULT) [address] [place] [address] 98548 Creatinine [Mass/Vol] 0.68 mg/dL Normal 0.60-1.[address] [facility] Comment on above: Performed By: #### 3 [id number] #### [facility] (DEFAULT) [address] [place] [address] 48178 Globulin (S) [Mass/Vol] 3.3 g/dL Normal 1.5-4.3 [facility] Comment on above: Performed By: #### 3 [id number] #### [facility] (DEFAULT) [address] [place] [address] 31150 Glucose [Mass/Vol] 103.0 mg/dL Normal 74.0-118.0 [facility] Comment on above: Performed By: #### 3 [id number] #### [facility] (DEFAULT) [address] [place] [address] 91174 Osmolality 274 mOsm/L Invalid Interpretation Code [facility] Comment on above: Performed By: #### 3 [id number] #### [facility] (DEFAULT) [address] [place] [address] 91020 Potassium [Moles/Vol] 3.9 mmol/L Normal 3.6-5.[address] [facility] Comment on above: Performed By: #### 3 [id number] #### [facility] (DEFAULT) [address] [place] [address] 16520 Protein [Mass/Vol] 7.3 g/dL Normal 6.5-8.1 [facility] Comment on above: Performed By: #### 3 [id number] #### [facility] (DEFAULT) [address] [place] [address] 91280 Sodium [Moles/Vol] 137.0 mmol/L Normal 136.0-144.[address] [facility] Comment on above: Performed By: #### 3 [id number] #### [facility] (DEFAULT) [address] [place] [address] 31701 Urea nitrogen [Mass/Vol] 12 mg/dL Normal 8-26 [facility] Comment on above: Performed By: #### 3 [id number] #### [facility] (DEFAULT) [address] [place] [address] 09112 Urea nitrogen/Creatinine [Mass ratio] 17.6 mg/mg High 4.6-16.2 [facility] Comment on above: Performed By: #### 3 [id number] #### [facility] (DEFAULT) [address] [place] [address] 97470 Lipid Panel Standardon 04-22 Cholesterol [Mass/Vol] 158.0 mg/dL Normal 66.0-200.0 [facility] Comment on above: Performed By: #### 3 [id number] #### [facility] (DEFAULT) [address] [place] [address] 30463 Cholesterol in HDL [Mass/Vol] 51 mg/dL Normal 40-71 [facility] Comment on above: Performed By: #### 3 [id number] #### [facility] (DEFAULT) [address] [place] [address] 21244 Cholesterol in LDL [Mass/Vol] 98 mg/dL Normal 1-100 [facility] Comment on above: Performed By: #### 3 [id number] #### [facility] (DEFAULT) [address] [place] [address] 66859 Cholesterol.total/Cholest amanda in HDL [Mass ratio] 3.0 {ratio} Normal 0.0-4.5 [facility] Comment on above: Performed By: #### 3 [id number] #### [facility] (DEFAULT) [address] [place] [address] Triglyceride [Mass/Vol] 43.0 mg/dL Normal 0.0-150.0 [facility] Comment on above: Performed By: #### 3 [id number] #### [facility] (DEFAULT) [address] [place] [address] 11920 VLDL. 9 mg/dL Normal 5-40 [facility] Comment on above: Performed By: #### 3 [id number] #### [facility] (DEFAULT) [address] [place] [address] 90531 Progesterone LCon 02-11-2023 Progesterone LC 0.7 ng/mL Invalid Interpretation Code [facility] Comment on above: Result Comment: Foll icular phase 0.1 - 0.9 Luteal phase 1.8 - 23.9 Ovulation phase 0.1 - 12.0 First trimester 11.0 - 44.3 Second trimester 25.4 - 83.3 Third trimester 58.7 - 214.0 Postmenopausal 0.0 - 0.1 Performed At: [facility] [id number] Bibi Irwin PhD Ph:[phone] Performed By: #### 3 [id number] #### [facility] (DEFAULT) [address] [place] [address] 77902 Coding Summaryon 01-17-2023 Coding Summary [facility] DpxqyaxvSLk0dUy+PGh lYWQ+IL4MTPMgH72enD PjzW6kI9YFIMmOHaqkE GPQNNwLXdUxdbQvWQ6v aXNjZXJu IC8+MQ9zOFSrFtpejDI av4J8dLL8N43vri6uLJ xdxJI1KYZpKrIqxwkqd 1rlwIv5MNcuRdvjKjGi NYNvtK71BVD0cK78Gp5 1qJOkdRHxl7wtwZp1Re FhSYCrTCE8dDswIOtxf 3CeYMAzB46jsRQol5X4 IGNvbGxhcHNlOyBlbXB 2mU5fAOecratep5udkl kmUcq9ie09xUGdq7H7m TS7H4FrkcL7VHEutGTh RcfxyIMGbO4zpvnnq7a ipcddPiJaKYCuJBs8RU i1ACLepSnyByVsYB54T CU0LASzewPxX8GgSAGz dNklUvV6d2N7Ho1EF9H YLryjI3UVIPJUZAwdjU Q+PD39rz28K0IzChwcP nz1UKDhPWE7gKO4fW4q PQOkWJryx6Z4iGZ6D7O alcQdvj7rt7uwKOLaSF iaZ60rxWAfy5P6YSQtu JL7QTTfrGxjGwEmdI49 Oyc+KRWrlJnto3TtVil qv2mnk1uqxCs1LkeaTI ZdwxExoYrdYNW7t8UdY d2mHFRmrXL8lTD7kW3z DhGaZhL0BJnrT378RwW uxFYrFjgbG03kB9QjuG A+ZWBqDdx1HPSfqXjbV M5rG1ReFXUlwdozmESu bWheNP5wPUBtaanuZSV idR1wVRWuM0l3PxBwGd J1EJmmV7EuFWVjspqgL q25xL6mOxIxDeG6TFhq Q4ClxbU5OLYwaOQvJLi jETA6K53sf3L2CAEiKJ LxLQH4gST5wB2ykCrqy jogbGVmdDsgdmVydGlj YAqdOWvoM833CQIwdKl nPkNvZGluZyBEYXRlOi AgMDkvMjUvMjAyMzwvd GQ+IXYcROP1nXevAKPi hMJjNLjjXh1euSpwkKh vRI7jVUZlbfgjPPWjvA 0wCRGykQFsgCacVJ1zV WBqnroap738ZrDtFJP7 PMQidTMjV9XodO2nDzY vPPDfGKUwF9OejECsID leC301CNhpTlU9GXHez cAjC3UdOMBehHtmQqZ5 j7N0In6Sq9JvvdejR1P qsRAnUsRnPmugNMf5G2 RkPjwvdHI+XW53JGTpV F72SNj3TRD3sEbmVCgj QXMqO7FusW9mLhIfVZR kZGRkOyc+PHRhYmxlIH dpZHRoPScxMDAlJyBzd TyjNQ8vHn4xMREaOHHw kHptsUIzPjGdn4otFUN gDHsvKC9zhFrvE4TjoK Y6GFKcl4s2Mk45V72jX 3JvdXA+TMSyrTW1yXC5 lF2iOqBfTjB3GLmuA03 0EvXelGDwXenvv4mwc4 sjpGc9VtJ5QINhktUab VpqYQX1a3PrKl66I01w IHdpZHRoPSIxNSUiIHZ oxNprfp9fyA9yJt5+PG UixXR5tJA3rW5pQsVbT zK6IOvlK343TjWkiKFf Vtuux5hwx8maqJz9KhI fJOUhldBugMhnGAH2f2 TrQv70J7BfzDlhb8PqY fl1na33oUGsz0Z6uUT5 I7LbEZVbzjzrmRHmtYc zIE4dCXKbgxihJIDexE 9sGGPtK0r3UgMkCnF7A SonL9RdziD6PNOruXSb ONEkcUMVdK7rejlgi3y dgmpmJmBfLXErSLc2DW j7WBIyeLjnXvQjNKK4J uH3KPL5sZKecL3acBfl osvktF2fYew+NTD8wFX geDGRIG6uHratcJP+PH NzIMY7lNiyYWepXMUmn P7uOJJaP4z0RlHlGhT3 KHhrM8UtgxY0ITJdrMM wMNBraDPLgC1gsjzzj4 jpislmVtQeBBTnMDp1G Ho0NWFteTwaQxUiBPK8 MgM6UYQ6rYNhoG5ygCp pbvxnaT0hEbb+QmlydG azMSP9ACq4D1MxMcu1V ORooFzuUG8ggYDmJGie Zd1okYhcaQorKJ4cRCU msrcqy132WbZti2spLS XheEWrNMgpVPM4D13jg 0A1JUElEGBfVDH5gYG3 iS7wmOkbnpxhqLPxlPj gdmVydGljYWwtYWxpZ2 61FRUudAhyNsOdHIt5E 6AaHhq5WUWvyMwfHZ6k nPZvKKtgVo5puLquoAn cDI5lLIIvrnxcm774Bg Mgc7noGKJupGNkYBuuN NP9O49ih8J5JLQuMCQz AJS0nLG5nR5flGehoju gbGVmdDsgdmVydGljYW xxKPgjW715QFIjvEnlT zIjbMx7A3WyHxj4QIVm qGyqUM9mfNLkVEevId4 vpHqejCofDF4lZYSerg pmw015YcEia3fdBNZny VFuPTorAKW6R25ls1M7 MKYvZLNrLOQ5gEB2hE0 hbGlnbjogbGVmdDsgdm PoyRatSBvqOVsmT656N HRvcDsnPlBhdGllbnQg HOhyZXi7H0MgWyxggNT +BT91HZIpFV32oINdgI Uvu0wvhWk8AvMgCJSuK HG7pBouIPsnq7HiJUSa C71nlZTia0S7DSGpiWh vdOWjUyOjsME3zL4xPO fzcmzck3fjkfwqHpqgf 2cwym43kL76E33nLUnw ZHRoPSIzMCUiIHZhbGl lww5rjG2wSv9+PGNvbC C8kPN5bA9pSUKhLeH2Y FyoB982SeQgsYXxQkhb h8ewi6mlwRa8NxO1ADH fdxTfmPsuJNE9f4ZsLl 27S79wTMjkHPAiQQBjW NNdIOYepQopsm8jbD7i Ii8+YTNctTU2tTC6cG9 zRiGaEwQ4VYzyD284Ic YknNGrQackQ57sQ8Oje XA+DYPhWrj2PWHdfVne DO5pjSGxDOhzYz9fXRY 4QgBjQtAiHVnoK9FvKE QppttrdjaroIC8FWZvZ DOxhW18Qu7xeEwsICXt mVFSrM2fmpgwf5niqyg wLcTyHYJoCYx8JDx4EO UyqOrzGgReFJF4HzL0K AW3mCYmbO4yfLmjdhtg aU2qI5GaFBReiqxbEa3 2dG9qUuNgKmG7QEfcAq c+QkFLRVIsIEFMRVhBT kRSQSBNSUNIRUxMRTwv dGQ+CFGnWQP7dBlvAEy yBNSwpY4lPYOyO7c9Nb LiNeV6XDxcV1ZvVNSdc bdsQx88cP7bTsZcGdI4 PNluZ2OkqqB3JNHkkVC kEAxnJOX5E45wm3K4NR GgWGCwRRJ7cJE7aS1au GlnbjogbGVmdDsgdmVy bDmbEEznBUnyW325ACQ bcDynKcPrImU0PkUiAF P2P9HkZxb9KIUxfCvnS Z5evJCnAWlmZo0ifUyz xOcoPH0sAVIbbgenURM wnR8mJKTesKBctNepZA 9xCMObeesek013LwDpC WZ8AONkgUVfY0UsaB6u QrTqFYImGGHoE8NegRT dBXcdF320SQscQgH0UO NcuiTjO4LeSWNdeNvaW uI5h1R6Lq3qZITMNTOi czwvdGQ+SYNnZYK3qWb iOXylGFSokG4eUOJtZ5 z0LtAsRhB6QAtlC4QuC DPgnlwuMc39oR1pJcFc RnU7DXolU1BiloF0GAF zuXWiOMajMLZ9K51nb3 X1GQYxUUWcCPA5rOO2b I2tvPgfgkoawRCzuSqr elWazFasVDevERiqR59 6IHRvcDsnPkZFTUFMRT wvdGQ+BZZvMSQ5xTcbQ NzdPIUmoK2cDMYgV9f2 NsDhVtC5DUvjT1PbTDB sgnxlLb77nR9gUqRqIz M0AHdbB9KvbfO6PIOdx QQeIGjlBDR0M89vb7J0 WVYiUEQnEEZ3oJW8rT3 hbGlnbjogbGVmdDsgdm AtoAorJBemXHygX739V VZkoAhmEu0USN50QT49 B7IuWiqvbUEerIZ+PHR hYmxlIHdpZHRoPScxMD UmYrUzkKivFF9yJx7dC GVyLWNvbGxhcHNlOiBj m1taBZMeFDvtYS1ddDe qP6XudOA0DJJqi2z4Xd 87U83hZ7FejNV+PGNvb NK4gVW4mE5kDhWvWmV5 HDqwL953QoAeeRYxRvc is9kqg3jghMu5FyJaGL DmodBahKjtEEQ9a0RvD i76C50sBGioSTTkIQCs OVImHAZadIkehm3wyQ9 wIi8+XUWssMP2oRV7lQ 3oUsVkBsN7UXuhP458V dXmtHBiRmjlQ36tW9Tt dXA+XSVmLdl0LKSebOh dOA7piORhVTbtBq5tFP M5OkIyIeLtAFgjE3JsK XNlsaqfiuyuqVQ6ENWo WPIavW93Gc8ceTupSa6 tOZAbGOH5VKByiMBlN8 DsiY9wSfBzHZBzAQWzV 0WyxWOdZVtdT823FHom UqQ6QXJjirXqE7ZdXRR efUwmYuO6s4M7Se3PgH wfwPIjIX4iYnAoHRj5W 4TbYma9WRKutYloZT8h dVXfOVbwSz4dwCuvoHp eEN0fQZXhqiyii056Wr Fpn5nfVFSheIWfQYfsC WH3Q33ul3I6TKXlLKWr SMX3eKL1xR6vvOpmoim gbGVmdDsgdmVydGljYW ktDOhrS761RTJjqKdaH bLHJrh1R5GdUfv4ASSu bVdmKW7txAKuJTvnYw7 qlXkkcHmlLZ2lZVBfga qor313ApBni4ihXWXzz IRoFIjfWDV5U68ec2J8 RERaQELaMUI7dFH6nE3 hbGlnbjogbGVmdDsgdm HjzQxlKVssXKeoS055A FWrdNcqPa6ICmj9C5Ac Qxz7NZVvjOhsBF7pvKY hJZyxEd8tmXywjYrcPA 5yUUZnqsfzx679KzHlq 7dtCWDsnECdFXliCNX5 K34na0I6WLNpEPSiZLR 4yIC7oD4hyRvyugudzC VmdDsgdmVydGljYWwtY GxtH253HDKtyKarHhOw eWVyOjwvdGQ+QW38sh6 6P5HvKbiqSpa9ANSoAK Q7vVP5vC8rCQEoIHkbh 9K5qCV1L3TjexWhnw0r b2x (more content not included)... Normal [facility] C Throaton 01-12-2023 C Throat Ordered by Discern. Normal throat dong isolated No pathogens isolated Normal [facility] Comment on above: Performed By: #### 7 [id number] #### [facility] (DEFAULT) [address] [place] [address] Progesterone LCon 01-11-2023 Progesterone LC 8.7 ng/mL Invalid Interpretation Code [facility] Comment on above: Result Comment: Foll icular phase 0.1 - 0.9 Luteal phase 1.8 - 23.9 Ovulation phase 0.1 - 12.0 First trimester 11.0 - 44.3 Second trimester 25.4 - 83.3 Third trimester 58.7 - 214.0 Postmenopausal 0.0 - 0.1 Performed At: [facility] [id number] Bibi Irwin PhD Ph:[phone] Performed By: #### 4 [id number] #### [facility] (DEFAULT) [address] [place] [address] 69538 ED Clinical Summaryon 2022 ED Clinical Summary [facility] ? Urgent Care [address] [place] [address] Clinical Summary PERSON INFORMATION Name: BRYNN WALLACE Age: 22 Years Sex: FEMALE : 2000 MRN: Acct#: Visit Reason: Throat pain - Adult; Body aches; SORE THROAT, HEADACHE Arrival: 01/10/2023 13:26:17 Discharge: 01/10/2023 15:12:00 LOS: 000 01:46 Check In: 01/10/2023 13:26:17 Checkout: 01/10/2023 15:12:00 Address: [address] [place] [address] PCP: Leah Azar PROVIDER INFORMATION Provider Role Assigned Unassigned Genesis Calvillo PA-C ED PA 01/10/2023 13:47:57 Kristen Velazquez CONCESSION MANAGER Nurse 01/10/2023 13:53:38 VITALS INFORMATION Vital Sign [...] Adult Follow-Up: With: Address: When: Leah Azar [address] [place] [address] DIAGNOSIS: 1:Systemic viral illness; 2:Viral pharyngitis Patient Understands: Comment: Normal [facility] ED Patient Summaryon 023 ED Patient Summary [facility] ? Urgent Care [address] [place] [address] PATIENT DISCHARGE INSTRUCTIONS Patient Information Name: BRYNN WALLACE Age: 22 Years Date of : 2000 [facility]: [id number] Reason For Visit: Throat pain - Adult; Body aches; SORE THROAT, HEADACHE Arrival Time: 01/10/2023 13:26:17 Phone: Primary Care Physician: Leah Azar Attending Physician: Genesis Calvillo PA-C Comment: Patient Education With: Address: When: Leah Azar [address] [place] [address] Sore Throat A sore throat is [...] these instructions at home: Medicines ? Take qgqp-nml-tohlrlo and prescription medicines only as told by [...] and water are not available, use hand schedule maker. Contact a health care provider if: ? [...] can cause a sore throat. ? Take fhuf-rjv-vuchsvp medicines only as told by your health [...] provider. Document Revised: 07/08/2021 Document Reviewed: 07/08/2021 [employer] Patient Education ? 2022 [employer] Viral Illness, Adult Viruses are tiny [...] (more content not included)... Normal [facility] SARS-CoV-2 (COVID-19) PCRon 01-10-2023 Internal Control Pass Normal [facility] Comment on above: Performed By: #### [id number] #### [facility] (DEFAULT) [address] [place] [address] SARS-CoV-2 (COVID-19) RNA HERBER+probe Ql (Unsp spec) Not detected Normal Not Detected [facility] Comment on above: Result Comment: Perf ormed by PCR methodology. Performed By: #### 3 [id number] #### [facility] (DEFAULT) [address] [place] [address] Strep Aon 01-10-2023 Strep procedure control [facility] Comment on above: Performed By: #### 0 [id number] #### [facility] (DEFAULT) [address] [place] [address] Streptococcus A Negative Normal Negative [facility] Comment on above: Performed By: #### 8 [id number] #### [facility] (DEFAULT) [address] [place] [id number] Progesterone LCon 12-14-2022 Progesterone LC 6.2 ng/mL Invalid Interpretation Code [facility] Comment on above: Result Comment: Foll icular phase 0.1 - 0.9 Luteal phase 1.8 - 23.9 Ovulation phase 0.1 - 12.0 First trimester 11.0 - 44.3 Second trimester 25.4 - 83.3 Third trimester 58.7 - 214.0 Postmenopausal 0.0 - 0.1 Performed At: [facility] [address] [place], [place] [id number] Bibi Irwin PhD Ph:[phone] Performed By: #### 9 [id number] #### [facility] (DEFAULT) [address] [place], [place] [id number] Provider Orderson 12-11-2022 Provider Orders [id number] Normal [facility] Coding Summaryon 12-03-2022 [facility] LqikxqylCUy9wSh+PGh lYWQ+OM5TDSEtO22foB HfzD2mU5NLARxWSyeaT ASIAYzEZiZpddGuKJ7e aXNjZXJu IC8+LY4vIALaNgixdWT gj1U0aFB0U52rpx1fAZ rsxCI2JIClOxOrjkgvt 9ldwZi0QRadWykaXpVu ZXGxlX77NUG8yM01Gz9 7wAJphYHef0fbwYm6Cj LdAIPwGVB4hSatCVyay 1SxBSFeF05gbDBxu6Z4 IGNvbGxhcHNlOyBlbXB 1uB6aINlzggala0imme psYgq7uw82fKDcs5V5m AH7D0JqgkO9GFVuyBXy WgekiQAOvB1hsmivb8l hkxbqMnKoSUSzQYn9ZA u0BBYfvRttApYiNE07U QA8BEOgzlAsD8WzTLWz aUiiErQ0g9O5Ij2BS2Y CXxshU3CGITVMSGyuhE Q+SL55ga10E6GiEpmfB xz0SSYkYZD4dGG4oG6n ZTGyTRmoz6H7wVH8A5C uraFtec6bl9qiBCFzPN ezF23zuTOcq3H6HZVca VY7ZLVbxPbeReDwtA84 Oyc+IYBaqIvxk2ZkLvy so9elm4xelGa2SzqtYI YbpvTlsZbkCLK2i0TbA q9fBUNrkSN8eCW9rI1i FeCcXuZ3QQzhT613LqY kfLDnGejlS08rY9BtrQ A+AYCuDeo5VVMuaUkwG Z5lY2DjKXYfubioaTAt fFkwYV0fBESmrywhAIM jiN3eVMZfX2a2VbRdCt C2TIsuS3ZqORQmvfuaF l16xJ8sReTqFmY6ZCwg N4DgrxP4YIQgsTKxXHy kXGK7N29ig5T4UYPuSW TpRWV8zCE0sJ9enLqox jogbGVmdDsgdmVydGlj TRnuVUppZ569ILGcnRh nPkNvZGluZyBEYXRlOi AgMDgvMTEvMjAyMzwvd GQ+BTBiOTU1hZavMYDm zFIjQKcoLz0quLmysDx eKQ8rJNIpabyeCDEpqI 7zFFUmrNXesQipMA4zI WJkomeat145WlNcOLB5 LNEasNGkU7IxlN7vCqH yMPXuIVKxO1HlgKGtUY umY185JOqzVhR0WDDav uXlC3SfUZDgnXplIzX3 t7S3Tn6Da4KzrrorM2U wuRPsMlIcLaoyJAa2K3 RkPjwvdHI+HB81EDZsS I63YXr5BKK0dJkhNCcn NTLiO5WvtW1zQoOdYNG kZGRkOyc+PHRhYmxlIH dpZHRoPScxMDAlJyBzd FcjHK2rOa5vATKzAVPa qZadgUEkHbPua6icCCT lZWojIF7qsMxaL6NvyW N8CLSig8f1Ui77B00eJ 3JvdXA+VQOlqXG3pMK9 nF2cZdAsKmB0LCafN13 0LgFrsCFzEjtte4ovh6 vmhWb4WkO2URXzinSan HtmYYA2k0LlBt51L13o IHdpZHRoPSIxNSUiIHZ giFzllg5bvQ8jKk6+PG CbjKF8dOY0wC8zOuAjF sH4NKkgX326IwWkiLKm Nfvpe3vzr3luaEy2KpZ xKCCskfIzmJvoBKU1k7 IiPm16O6CbuUsbs0WjS td1lb98rFDvd1G2wOU0 A5UsFSCkzfadjDEjsUd gIZ0qENKdmunjOONbrF 9qIDAwM8e2SuCvNvU3J ImlQ0YbesU7WPIxbUZh CEIizKIJpV9aptgsj7w ibpegMoCcTNDnPSa1SH f0ERXktJjbWvCsNAC7I fS1RWO9lLRoiV4uuHpy qqhogB5tRee+ONL8vJG akBJWRN9uBxyivFX+PH WeOAR5uNnkSRafTWFop W5tVRFsT4s1RoTfSjJ9 OIllC1CiqzC5SQNfjEK wYLFimDLSuQ9pcocoy8 zqshbjYhSiBEFsIYt7W Lh8GMCetCyrGbJtMQY6 FwK4YHB1rNIhnS5fmAl avcuzvI2lLjx+QmlydG meGEU2CXq9P3UdIkq8M YNzeAnlAK0prGMiEBcm Hu3xxBsukDgpSD0aRAZ cygeax870UmFft2woAH OjzLCpSMzhAPZ2P41qw 5Y9SNDpCNKeBLS6vVX4 dQ4ocRgrdhgpjDGovAo gdmVydGljYWwtYWxpZ2 48NGHacSwoSkJsRAe9U 0GtUhf4KLRzzNdgMM4k nIAlFAkpYs3jtGwcyEg zZY6sIVMehvqax817Oe Clk9eaJGVqsLZqBAfzM PU0U64xr2W5ICFtKGOv IVG9eNC1xY5dhSrtiwb gbGVmdDsgdmVydGljYW tiPYotI254FGEhkSsbZ eSspQj9N6QtNlw9EZYc hItyEE2ryKNsJXanDk6 smVtsqNjcTY8lWCSycc zgk438ZnQkt7uaYEYhv UPlNYipXPS9C91bi4O8 NLFdUZTmFCQ1kXB1zT1 hbGlnbjogbGVmdDsgdm VfyBdiIRhpNOuhP632B HRvcDsnPlBhdGllbnQg LTteMTx3A8UyOcxmwWA +KD88TPLeOM48iDOryD Fqa8ffkCr8MuNjXIJcB OL9rUziXNorb2XaWOZb H54ugOWkr7E9AIUiyXl jnSIxMsZqkNK4hG9jUH nmkdjxl6vghewqKtxsi 9pmfg41vY92B91sBIsr ZHRoPSIzMCUiIHZhbGl tlm9sjW1cUj2+PGNvbC B2jFB3vO3cDBLwOmP3X YrbJ863PiLswGUlYtej p8soj5btkQx3XjM3SQF vmlTbvVxwEZN4m0VgZy 71Z89zESutRUMqPCDaJ FOeKSHdsJkven8ohH8k Ii8+BEThgNV7tVD6lE3 qCzWaErP1KUivU692Gh JauLHbZuzsV17fZ3Xxj XA+CICoJux6MOLeaRil RJ1vcMFrRNcuIi4vFUI 7QgViAlCaREypY1BhHB NmxwqbuvhfzRH4ZEKpA WNtgC45Of5zwEbfVSCa uNEXuA9bpeycx2ubygq tOdNrRGPjRKz7YDx9HS GukYspMiYaKMN9TjE0I JZ8eMCcbL8nvLqdynsb yX4eJ4QrICTbgvjcEd6 3qN8bCwVnJqZ4XJhmFo c+QkFLRVIsIEFMRVhBT kRSQSBNSUNIRUxMRTwv dGQ+KUYuPMH8hAeuIWo aCKUvsT0gACVvY0a5Is PqXoJ9QXbhV9VwDIAvq jzuAo50pU2sTpGqBkX9 NSkfP6LqpwD1WKNjhIL vGGypTJI2K14ji0I8CA KlURWwMLZ6xHV1lX6ol GlnbjogbGVmdDsgdmVy lJnePSfwTRdxO172SLV ehFuoXlJaWqJ2JiQrRG S3A5ZqZpc3ZYJioNwiD D4qpWSbROejHm7jqRut bWjrKP7oRSGmlnpyQIJ uwG9wTBVpkURpcZsjCE 9hPLIedijtz439AfPjA CP1OGGieJAbE0BegW1r LzGzUXVtSHJqW7OfkVU iDSteX141UGiuCuO0RX QzoeVgK7UqJBIpiDaeT xK4v6H7Mx3zMZYAMFMi czwvdGQ+XDCdQTK2pXz xHCcqTLFsnM4rBOZoF1 t4TuYbIlJ1MUqbP4MsO ITpmqvzLe06vR1gZgVy PbD6LXkaT2VbqqB8ETL qtQLvUEqoVWO4G51un3 K6XJVcVTWsZYF4lRY1j V6neJziyqtymVNjiWir bhPbwWqjOGkrXKqgN01 6IHRvcDsnPkZFTUFMRT wvdGQ+LNOgAKO2qHjsW GtyAUJbbD1eRKSrZ7f6 WrZeTdH0XOxtS6MmDHI upqztPi65gT9eOlJfGb O2BAvxL3DwqjG3ENQov ECmRNywVVV7S73de0A9 VMFjTTGeKFF8vQK4tL5 hbGlnbjogbGVmdDsgdm HdcQnjGNiuQQhyV422B CDrjOjyIe4DOE55RC21 B3VzYjvvgZSijBU+PHR hYmxlIHdpZHRoPScxMD DiQwXpvDblOS1fBd3qM GVyLWNvbGxhcHNlOiBj e2tqLHVeTSazJC8awXp hV7WgfVU4JQPob8n8Oj 15V40aN3CtjEW+PGNvb QY2tCW9yU8qMmXjMnZ5 TAtcE127KvPvuAScQpj ep5qwl8lamXj0OzKgLU JzncIklIihXQF9k5VkB b23R27kTCvzFOXeXHCn GOXgUGNifMnpwp1fyO8 wIi8+SUXjjSA8yWK2tF 0rQkEaYxU5RAzbN032V sZnbTQfCrjdJ28cZ1Ze dXA+QHYqLhv9XPTqpKu qSJ4paGOrMAlzJv6sMT S2DiQaFeHaLJqqZ3RfZ QEyjxutwfcteSE1PGUk HZWboE52Xy4pzEkvLq3 hQEXiHUM2JMNymDOvY9 ChbC9xUuRtZNGwTGPpG 6JytBJyGSdjS209UCaw TuJ5DRMakxCgV1BwLAF jyYldIpL7n9Y2Ts1DzW hfpGZmJT2jQpHmYSi6C 9SwYqh2IXYxyOomHW9q bTEbKUavWe1niMqvkBl jXC6rJUAjjlqvt071Tq Aie3yoNPTdxHZvYRroO QP3B17zi8S2IVNwCCXj UBJ4sNJ0dK1dwSlobcf gbGVmdDsgdmVydGljYW ioYHznU255RZJybMatR bOWQnx1A2YkSwb2RMOs zTfeUQ1qnCVuDIhqZt2 bdYffvGgvVP3hUUDwax gzx300UmRnt7uiUNKew YHcRFinVWA3A50vl4D3 NPKfVEGiHGF1wKR6zR3 hbGlnbjogbGVmdDsgdm TxcWauANouQXlbP072Q WMfbZnaAq8HQru2M2Ir Umw2PEChoHsrTR7smWV qQZrbHh3mxHgonJhlZA 4uVSBskhomp022QbZnj 4giEUVfyMBlADvmMUC8 H25gd7V0LPBzUUQjBNZ 4eZT0iC5zmXtyylmanP VmdDsgdmVydGljYWwtY FqmQ141OONoqCckBpNv eWVyOjwvdGQ+QQ19al5 9P4GxYxmsKlz5VIGqFU E9lSJ7bM6iMDNlXFxdf 8A1oKH3Z8HmsyTjrf2e b2x (more content not included)... Normal [facility] US Pelvis Non-OB Completeon 11-29-2022 US Pelvis [...] MD 11/30/22 10:38 a Technologist: Geno TORRES [facility] Provider Orderson 11-26-2022 Provider Orders [id number] [facility] Coding Summaryon 11-22-2022 Coding Summary HTMLBase 64 UfnbjzhgVJa7aFn+PGh lYWQ+VG4CLDPcD45caE PzdZ0uR6VZLHnXNuogH XNSEHuSAuVwgjKlVT7s aXNjZXJu IC8+MR8mAIFpCruxaFF cf5H8hYS1K06muh8zUP ifhTC2XRZpVkDkormra 9yhdHz3JRppEijkJaCz STBbcT14DXH7mT16Kw5 9hAIwbTAyr8fecTn8Ns FuADQzJMG7vBylROnos 5BsXJEkW12bjAXrq8E9 IGNvbGxhcHNlOyBlbXB 9uH5vKSbxnbhri3jebi ikSxa6gk66wGSde7K4v SC2S9HnqyD5URVbcHQp JqnqwDRIkQ9kbipfn9b qbdcpEdTjVUGqRVa4HG q1YHIddGeaJzNqDJ52R XG6YMYjzlHvB8ZsOWGp tDzhDzF7x2O1Fq3NB4O DSzhiE2QVISNVUSmvtV Q+QE85gc95V2NwNjogK yz4TQSlSKG1dQV4gR6y PEFzDDrjg7H3nBW1Z5X xpmOcef7rg9qaTPSvJD yoG66eoFKvw0P6INDom HS8VGWcxKqkRgGwlW20 Oyc+QGBdsSbbc7LlVga ib6aqc9ouiBx9NtvwXG MombQbtWbtTON5s6TyV u7hQAGiiQW5lPW7aC4a GuNhHiL3MLpoE769VsU rmIDxUpqhY07rV8RcmT A+RIPtUkv4NNAbdIxxJ Y6sE6ReNUJbfqcqwZXm jXxbLH1vWAEcptnsMPQ rxO9dGMSjU7s4VyBfBm O5MXjbY6NxQGDbuszhC o85lE2mQwSbVkB8BEop J8AcjxY4TTKysRSwNIm aXEH8H65os8N0EUZyZW KgOSS6gMU0uY0mlBzog jogbGVmdDsgdmVydGlj WLljYNsjI052AIEadOz nPkNvZGluZyBEYXRlOi AgMDcvMzEvMjAyMzwvd GQ+GUAiHSV1yJfkXCLd lOEbJYufLw6pdJazcGh xAL4dPHYsqwqwYCJypG 7bSSLilPAmkSthUS2sK HGurpssc069KsRiSQC1 PEJlaLNmS2QftA9mJvT rZCQhBYUuE0SeoMKwTM uxT419IDupBnP7ISPbc nZoG8EhLEKorHfoItW9 g3Q5Ab2Ah4JtewbdA3S upOEoIrCcRybcJNc0J9 RkPjwvdHI+XI43IOZlZ S46QFi8CDZ2jCjwVSbh DVBdX2ZajR4bCrNqMEP kZGRkOyc+PHRhYmxlIH dpZHRoPScxMDAlJyBzd EfmGL5eCr3tLFQbVAQb zNunnDLqTwDph3ahXVK aZAmxCV5iqKmxM3VfaV D7ZTLww6j7Hc84R32xZ 3JvdXA+XIMbjJY3pYE4 lE6yEsTkHgJ2IOmdY82 3XsIpnWCkStxtw3rvx0 freHm7TpK3PUBybaKyn UulCKW8p7InWd71M67b IHdpZHRoPSIxNSUiIHZ wlLrzrd5zqC3wYo6+PG JbpBH1vDO3gM6pCtQnR iU9ZHczI910KgLtiLLf Lwzhm1cbp1wwqBf7VkY pJUScvqInrLvkBDN9j6 HcCh42C2PrgBdzb2GsD iv9mo29lDMyn8T2oHO7 F3FlTDWxzatfeLGvbOo jHJ7sGWDrtlewEHLovF 8iMNLsC2p2BmEkPxZ4T DpkO4RxwdA9AHNnlUUu NQPjuCGFbS5potsko5b auftvUuHiUQEzJDy7QY t9DMGhrVzlClStJYN7V uF9NJG4cPEoyU5ytOlk smdsgD7sPjd+JDI1vJH ebSYNIE3gSitnqTA+PH MpZJI0wXzsADnkFZGxf P0tIKRnJ8b5OdBzHdQ1 SAjkM8VqioE8DAQnzTC fOLYkbPBPrS5cfcadp1 ciqdfiWwXvQSFuZOw8P Ir3AUCmtPmqLeMmURV6 JnE6RAF5eKXbtA9eaNb qkdaimH0mVoa+QmlydG dwXTN8DOv9R5McZtk9O DRjsOkiOW2qhTAfMOnw Wt7xvQzmnPopPM8vLMS dcogsw626VxWbp5vpLF NhfFDiZCqbBBQ1R74it 3S2MFDmBUAaBEX6sMD0 oM9oaFvrwymyfXZvpSi gdmVydGljYWwtYWxpZ2 35HADtxVzrPqYaHXh0O 2GzJvu6TFKzmJenQC1w qTWtTRruCl4urDrxzXq wRK6kCFLtihfnm396Yh Jqq5sdPUDufJAjTFnlC VO4B18hi6N1USNbXQEh JVC7wBQ9hX1pdZgstoo gbGVmdDsgdmVydGljYW kcCVcpJ988BWYcwWvgI fXhuGi6D2WxPoe6KRMj wHycIZ3pbHCnDDqxDw3 gwKifnReyGX1jZVCapv noa979LwQra4ntJXOqq MCnCQwoQCT4K81dv4H3 BMUaNUNiDVP8tEE7sZ5 hbGlnbjogbGVmdDsgdm MckFviSLebBRaeC087H HRvcDsnPlBhdGllbnQg WDexAUp5I0OhTdhrbEK +RO99MUUkPM62cNCcbU Ldr7yseUr1OhUpAGOzK WK5yYgoAVewv7EfBOSr L40zyCZwo3F9NXCruQp yfUBtAuHpwUK0vS2jTW cdgbwvl8okzyeyHuxwr 5xxfw17uD66T77jMEle ZHRoPSIzMCUiIHZhbGl hms2raC3tQq6+PGNvbC R1xOZ9xZ1uWPBvNlJ8I BahD514OvAoyZGmKvpr w5zrf4rekVi6HfH5PEH ocdMveDccPVO2u1WjIg 49V11vFOwpNJXiIYZpV GXrLXFqpUraxv6ciQ0s Ii8+YUGtpAE0oQP0nK3 iZyPhGoV2JQayV310Fw ZykIQsJkzrW30cB5Tbe XA+HLZhShz8LMWrbZpj EC9toRRzSTlwFn5hWBE 8VlViSeCqMRteY0WfUE ByflwciexyiGG3KUTzG ZJulN61Dd1pyDpaUJJu gHDMtH8tkabqc1iszpw gFeKcKRBkDNk3DXu8RZ JxsAiqSdUuWHS7LcK2J LC4yKZboH0rjMlneyum rF7eF6ScOYKoaowdGt4 8cH6zIjSrOpJ6LMsoLs c+QkFLRVIsIEFMRVhBT kRSQSBNSUNIRUxMRTwv dGQ+WVKcSMV5iDccGBg gNPAklS5xSKJiB0x7Oy OtEmR1OVjtR4RsGIRbi csvXl64nK6nVjBgFvA8 PFuuG1SakrA7MSQfyYI qMSzvRCN0B25id3I9TE FdZTBaPKV0qGE5gD5ih GlnbjogbGVmdDsgdmVy dHomJGbzZSqzR362IQS maDykMjIiRyU7OiDrDO Q4V4DmFau1BGTgjSxcY S1yrYNkLFwrUz9yiJgv kSsaBW7lRGBqmoevOJQ otU3cLCYtwQMifRzuEH 0hOANgvolml038CcRcG RF5WMJtvLVdQ0VthV6v OtCzDNYcJFDaF6NaqMP vRDkmJ107EXieGvQ4TV BohaOoD9LuUZXwcZbkP nI1a5D1Yt9cBGAMHWJn czwvdGQ+UGBzUPF1mVk bBSfnCXFleC9tKKHoM1 t1KuTlMyF7LOcdX8JfK LZzvjfgUb93tL6yRqOa TrT0BJqaI6SdlwT5IMB rvNMxEYwrGDD3H58ea1 Z9XSVbWHKjQBT5vVO3s X4unGmbmjcjqEPjgQqe qwRjoByqPWesPKcnN45 6IHRvcDsnPkZFTUFMRT wvdGQ+RPVpOXA6sGbzQ BdjBFAsuC0rHTPzA8g3 ZkOlZuD2FOhsU5TkUVS azrzqRz05uH1zKjArBo F8MAmoX7YcenF0EDBmd OXjZUqsQVI1H26cv8Q6 RFYtWLPbJNV8wCF6xV8 hbGlnbjogbGVmdDsgdm KyeAgcEAmoAVspH816A APlyGnuSf0JRN22UJ78 U2KeUwxxnTMhsDQ+PHR hYmxlIHdpZHRoPScxMD FmSaBddXwrTV8kJm4qR GVyLWNvbGxhcHNlOiBj o6gjUHFcOEvmSW4edNp vZ5TlrBJ1HWClq1k5Gr 75F27xF8KqoEX+PGNvb SZ2yQN7lF5rRyElPvU7 NCwlS778LgArdLUvKwk hn7bsg9rinQs5ByOlZC RsauWbbFjkPPM0l1CmP s21E12bGSevYALwTPXr DPHtKBOjlFmyqm1awJ3 wIi8+KVRfjNE9jJQ0vE 6sOzYlLvZ1EAcdY152K fAbcSWnZpriE96sQ6Cx dXA+XDDgTep8VFVbbMq yVV7lsDAqDOsbDt9aGL R4BkWeBrCjXCurY8JxS TPlpkvbbehcnGF3OGPx HNWemR46Nh1rvOmvOi0 tIQQhQNL8APDkgTIaQ7 KlgC4wYwAcHAYmTGQuH 0QklXWlBSniD012JRax HvW9CUFjamTyP2JiHPG znJqfBpO9a9N8Vb4RqV vxwPMjYT8nXcBcRVr6J 8GaIoe7AUGjtGulKR7g vOBtPPoiTj4toNccyLz bDI4wJITenbrfu715So Hec9nrAOUrjFKlTQfhN KX7G87cl8A2PNUlPJDr LDW4bEQ9sO1xsVpscku gbGVmdDsgdmVydGljYW yuFQsbT121KXGjcYrzU gSZZdi1H5HlThn6GIDx lTivVL5rkJVjJVkjHd0 wuJdktVtsHX1jKSNese uxk239AhYgo4ddCFWem OCeWJfdWZE3C16za1A8 NGDeWFHoTZI2cXZ5wS9 hbGlnbjogbGVmdDsgdm XmpEvfKVrdFYwzY054S VFjkSuaKr8GExm9H7Nb Mkm0MYTpgVyvBS8meEB lJKszOj4gcThimYbpLM 2fYYYgwdaep047ZcXjg 2kgSHBohRSiDBtiCSF4 X21sl6U6QMUjYIXxDJB 7tIR9dG6tyQhicqsoiT VmdDsgdmVydGljYWwtY KgxD667BWCbaJgoBjVw eWVyOjwvdGQ+XG58fc1 2G7YbBehpPaw9BCIbDJ N0eWQ5fU9gHZFbIVitn 2O6nJV1Z3JwhuWrob2i b2x (more content not included)... Normal [facility] Dehydroepiandrosterone (DHEA ) LCon 11-20-2022 Dehydroepiandrosterone (DHEA) LC 340 ng/dL Invalid Interpretation Code 24-914 [facility] Comment on above: Result Comment: This test was developed and its performance characteristics determined by [facility]. It has not been cleared or approved by the Food and Drug Administration. Performed At: [address] [id number] Morris Nayak MD Ph:[phone] Performed By: #### 6 [id number], [id number], [id number] #### [facility] (DEFAULT) [address] [place] [address] Dehydroepiandrosterone Sulfa te LCon 11-18-2022 DHEA-Sulfate LC 612.0 ug/dL High 110.0-431.7 [facility] Comment on above: Result Comment: Perf ormed At: [address] [id number] Bibi Irwin PhD Ph:[phone] Performed By: #### 1 [id number], [id number], [id number] #### [facility] (DEFAULT) [address] [place] [address] FSH and LH LCon 11-18-2022 FSH LC 1.9 mIU/mL Invalid Interpretation Code [facility] Comment on above: Result Comment: Adul t Female: Follicular phase 3.5 - 12.5 Ovulation phase 4.7 - 21.5 Luteal phase 1.7 - 7.7 Postmenopausal 25.8 - 134.8 Performed At: [facility] [id number] Bibi Irwin PhD Ph:[phone] Performed By: #### 6 [id number], [id number], [id number] #### [facility] (DEFAULT) [address] [place] [address] LH LC 1.9 mIU/mL Invalid Interpretation Code [facility] Comment on above: Result Comment: Adul t Female: Follicular phase 2.4 - 12.6 Ovulation phase 14.0 - 95.6 Luteal phase 1.0 - 11.4 Postmenopausal 7.7 - 58.5 Performed By: #### 2 [id number], [id number], [id number] #### [facility] (DEFAULT) [address] [place] [address] .Auto Diff 1on 11-17-2022 Auto [place] % 5 % Normal 1-12 [facility] Comment on above: Performed By: #### 6 [id number], [id number], [id number] #### [facility] (DEFAULT) [address] [place] [address] Baso Abs# 0.1 x10 Normal 0.0-0.2 [facility] Comment on above: Performed By: #### 5 [id number], [id number], [id number] #### [facility] (DEFAULT) [address] [place] [address] Basophils/100 WBC (Bld) 1.0 % Normal 0.2-2.0 [facility] Comment on above: Performed By: #### 2 [id number], [id number], [id number] #### [facility] (DEFAULT) [address] [place] [address] Eos Abs# 0.1 x10 Normal 0.0-0.4 [facility] Comment on above: Performed By: #### 6 [id number], [id number], [id number] #### [facility] (DEFAULT) [address] [place] [address] Eosinophils/100 WBC (Bld) 0.7 % Low 0.9-4.0 [facility] Comment on above: Performed By: #### 3 [id number], [id number], [id number] #### [facility] (DEFAULT) [address] [place] [address] Lymph Abs# 1.9 x10 Normal 1.3-2.9 [facility] Comment on above: Performed By: #### 9 [id number], [id number], [id number] #### [facility] (DEFAULT) [address] [place] [address] Lymphocytes/100 WBC (Bld) 19 % Normal 14-48 [facility] Comment on above: Performed By: #### 8 [id number], [id number], [id number] #### [facility] (DEFAULT) [address] [place] [address] [place] Abs# 0.5 x10 Normal 0.0-0.8 [facility] Comment on above: Performed By: #### 1 [id number], [id number], [id number] #### [facility] (DEFAULT) [address] [place] [address] Neut Abs# 7.7 x10 Normal 1.5-9.2 [facility] Comment on above: Performed By: #### 5 [id number], [id number], [id number] #### [facility] (DEFAULT) [address] [place] [address] 35472 Neutrophils/100 WBC (Bld) 75 % Normal 44-88 [facility] Comment on above: Performed By: #### 4 [id number], [id number], [id number] #### [facility] (DEFAULT) [address] [place] [address] 9[address]16 CBC w/ Auto Diffon 3 Erythrocyte distribution width (RBC) [Ratio] 12.9 % Normal 11.5-15.0 [facility] Comment on above: Performed By: #### 6 [id number], [id number], [id number] #### [facility] (DEFAULT) [address] [place] [address] Hematocrit (Bld) [Volume fraction] 41.8 % High 33.7-40.4 [facility] Comment on above: Performed By: #### 2 [id number], [id number], [id number] #### [facility] (DEFAULT) [address] [place] [address] Hemoglobin (Bld) [Mass/Vol] 14.0 g/dL Normal 11.3-15.9 [facility] Comment on above: Performed By: #### 6 [id number], [id number], [id number] #### [facility] (DEFAULT) [address] [place] [address] Man Diff? Auto Invalid Interpretation Code [facility] Comment on above: Performed By: #### 5 [id number], [id number], [id number] #### [facility] (DEFAULT) [address] [place] [address] MCH (RBC) [Entitic mass] 29 pg Normal 24-34 [facility] Comment on above: Performed By: #### 9 [id number], [id number], [id number] #### [facility] (DEFAULT) [address] [place] [address] MCHC (RBC) [Mass/Vol] 34 g/dL Normal 26-[address] [facility] Comment on above: Performed By: #### 1 [id number], [id number], [id number] #### [facility] (DEFAULT) [address] [place] [address] MCV (RBC) [Entitic vol] 87 fL Normal 81-100 [facility] Comment on above: Performed By: #### 0 [id number], [id number], [id number] #### [facility] (DEFAULT) [address] [place] [address] Platelet 280 x10 Normal 138-427 [facility] Comment on above: Performed By: #### 6 [id number], [id number], [id number] #### [facility] (DEFAULT) [address] [place] [address] Platelet mean volume (Bld) [Entitic vol] 8.0 fL Normal 6.3-10.2 [facility] Comment on above: Performed By: #### 8 [id number], [id number], [id number] #### [facility] (DEFAULT) [address] [place] [address] RBC 4.83 x10 Normal 3.70-5.30 [facility] Comment on above: Performed By: #### 8 [id number], [id number], [id number] #### [facility] (DEFAULT) [address] [place] [address] WBC 10.3 x10 Normal 3.5-10.5 [facility] Comment on above: Performed By: #### 4 [id number], [id number], [id number] #### [facility] (DEFAULT) [address] [place] [address] Free T4on 11-17-2022 Free T4 [Mass/Vol] 1.06 ng/dL Normal 0.61-1.12 [facility] Comment on above: Performed By: #### 8 [id number], [id number], [id number] #### [facility] (DEFAULT) [address] [place] [address] HgbA1c Standardon 11-17-2022 .Hb 15.7 Invalid Interpretation Code [facility] Comment on above: Performed By: #### 1 [id number], [id number], [id number] #### [facility] (DEFAULT) [address] [place] [address] .Hgb A1c 0.55 g/dL Invalid Interpretation Code [facility] Comment on above: Performed By: #### 1 [id number], [id number], [id number] #### [facility] (DEFAULT) [address] [place] [address] Glucose [Mass/Vol] 105 mg/dL Invalid Interpretation Code [facility] Comment on above: Performed By: #### 8 [id number], [id number], [id number] #### [facility] (DEFAULT) [address] [place] [address] 42383 HbA1c (Bld) [Mass fraction] 5.3 % Normal 4.6-6.2 [facility] Comment on above: Performed By: #### 4 [id number], [id number], [id number] #### [facility] (DEFAULT) [address] [place], [place] [address] Provider Orderson 11-17-2022 Provider Orders [id number] [facility] TSHon 11-17-2022 TSH Qn 1.26 m[IU]/L Normal 0.45-5.33 [facility] Comment on above: Performed By: #### 1 [id number], [id number] #### [facility] (DEFAULT) [address] [place] [address] hCG Quantitativeon hCG Quantitative <0.6 Normal 0.0-0.6 [facility] Comment on above: Result Comment: Post -Menopausal Reference Range is: 0.1-11.6 mIU/mL Performed By: #### 1 [id number], [id number], [id number] #### [facility] (DEFAULT) [address] [place] [address] Lab - Toxicology Resultson 0 10-20-2022 Lab - Toxicology Results [id number] 1#1.00OTGTIFF Normal [facility] QuantiFERON-TB Gold Pluson 0 10-20-2022 QuantiFERON-TB Gold Plus Negative Invalid Interpretation Code Negative [facility] Comment on above: Result Comment: No r esponse to M tuberculosis antigens detected. Infection with M tuberculosis is unlikely, but high risk individuals should be considered for additional testing (ATS/IDSA/CDC Clinical Practice Guidelines, 2017). The reference range is an Antigen minus Nil result of <0.35 IU/mL. Chemiluminescence immunoassay methodology Performed At: [address] [id number] Bibi Irwin PhD Ph:[phone] Performed By: #### 6 [id number], [id number], [id number] #### [facility] (DEFAULT) [address] [place] [address] QuantiFERON Incubation Incubation performed. Invalid Interpretation Code [facility] Comment on above: Result Comment: Perf ormed At: [address] [id number] Bibi Irwin PhD Ph:[phone] Performed By: #### 8 [id number], [id number], [id number] #### [facility] (DEFAULT) [address] [place] [address] HBSab Qnt on 10-19-2022 Hep B Surf Ab Quant LC <3.1 Low Immunity>9.9 [facility] Comment on above: Result Comment: Stat us of Immunity Anti-HBs Level Inconsistent with Immunity 0.0 - 9.9 Consistent with Immunity >9.9 Performed At: [address] [id number] Bibi Irwin PhD Ph:[phone] Performed By: #### 0 [id number], [id number] #### [facility] (DEFAULT) [address] [place], [place] [address] Measles/Mumps/Rubella Immuni ty on 10-19-2022 Mumps Abs, IgG LC 132.0 AU/mL Invalid Interpretation Code Immune >10.9 [facility] Comment on above: Result Comment: Nega tive <9.0 Equivocal 9.0 - 10.9 Positive >10.9 A positive result generally indicates past exposure to Mumps virus or previous vaccination. Performed At: [address], [place] [id number] Bibi Irwin PhD Ph:[phone] Performed By: #### 6 [id number], [id number] #### [facility] (DEFAULT) [address] [place] [address] Rubella Antibodies, IgG LC 1.78 index Invalid Interpretation Code Immune >0.99 [facility] Comment on above: Result Comment: Non- immune <0.90 Equivocal 0.90 - 0.99 Immune >0.99 Performed By: #### 1 [id number], [id number], [id number] #### [facility] (DEFAULT) [address] [place] [address] Rubeola Ab, IgG, EIA LC >300.0 Invalid Interpretation Code Immune >16.4 [facility] Comment on above: Result Comment: Nega tive <13.5 Equivocal 13.5 - 16.4 Positive >16.4 Presence of antibodies to Rubeola is presumptive evidence of immunity except when acute infection is suspected. Performed By: #### 0 [id number], [id number], [id number] #### [facility] (DEFAULT) [address] [place] [address] Nicotine Metabolite, Urine L Con 10-19-2022 Cotinine LC Negative Invalid Interpretation Code [id number] [facility] Comment on above: Result Comment: Perf ormed At: [facility] [address] [facility] [place], [place] [id number] Rachel Garcia PhD Ph:[phone] Performed By: #### 3 [id number], [id number], [id number] #### [facility] (DEFAULT) [address] [place] [address] US Pelvic Complete w/Transva ginalon 06-21-2022 US [...] by Pepito Martins on 06/22/2022 1125 Normal [facility] XR Abdomen Single View (KUB) *on 06-18-2022 XR Abdomen Single View (KUB)* COMPARISON: NONE. FINDINGS: The bowel gas pattern is unremarkable. There are no dilated loops of bowel. There are no acute osseous changes. IMPRESSION: There are no acute changes. Report reported and signed by ALONSO PADRON on 06/19/2022 1201 Normal [facility] CBC AUTO DIFFon 12-12-2020 BASO # 0.1 103/ul Normal 0.0-0.1 [facility] Comment on above: Performed By: #### C BC #### [facility] [address] [place] [address] Jatin Tracey Basophils/100 WBC (Bld) 0.7 % Normal 0.2-2.0 [facility] Comment on above: Performed By: #### C BC #### [facility] [address] [place], [place] [address] Jatin Tracey EO # 0.4 103/ul Normal 0.0-0.7 [facility] Comment on above: Performed By: #### C BC #### [facility] [address] [place], [place] [address] Jatin Tracey Eosinophils/100 WBC (Bld) 3.4 % Normal 0.9-7.0 [facility] Comment on above: Performed By: #### C BC #### [facility] [address] [place], [place] [address] Jatin Tracey Erythrocyte distribution width (RBC) [Ratio] 11.8 % Normal 11.0-15.0 [facility] Comment on above: Performed By: #### C BC #### [facility] [address] [place] [address] Jatin Webb Hematocrit (Bld) [Volume fraction] 42.6 % Normal 36.0-48.0 [facility] Comment on above: Performed By: #### C BC #### [facility] [address] [place] [address] Jatin Webb Hemoglobin (Bld) [Mass/Vol] 14.3 g/dL Normal 12.0-16.0 [facility] Comment on above: Performed By: #### C BC #### [facility] [address] [place] [address] Jatin Webb IG # 0.03 10e3/ul Normal 0.00-0.03 [facility] Comment on above: Performed By: #### C BC #### [facility] [address] [place] [address] Jatin Webb IG % 0.3 % Normal 0.0-0.5 [facility] Comment on above: Performed By: #### C BC #### [facility] [address] [place] [address] Jatin Webb LYMPH # 2.2 103/ul Normal 1.2-3.8 [facility] Comment on above: Performed By: #### C BC #### [facility] [address] [place] [address] Jatin Webb Lymphocytes/100 WBC (Bld) 20.7 % Normal 20.5-60.0 [facility] Comment on above: Performed By: #### C BC #### [facility] [address] [place] [address] Jatin Webb MANUAL DIFF REQ NO Normal [facility] Comment on above: Performed By: #### C BC #### [facility] [address] [place], [place] [address] Jatin Webb MCH (RBC) [Entitic mass] 30.4 pg Normal 26.7-34.0 [facility] Comment on above: Performed By: #### C BC #### [facility] [address] [place], [place] [address] Jatinandrez Webb MCHC (RBC) [Mass/Vol] 33.6 g/dL Normal 29.9-35.2 [facility] Comment on above: Performed By: #### C BC #### [facility] [address] [place], [place] [address] Jatinandrez Webb MCV (RBC) [Entitic vol] 90.4 fL Normal 81.0-99.0 [facility] Comment on above: Performed By: #### C BC #### [facility] [address] [id number] Jatin Tracey MONO # 0.6 103/ul Normal 0.3-0.8 [facility] Comment on above: Performed By: #### C BC #### [facility] [address] [id number] Jatin Webb Monocytes/100 WBC (Bld) 6.0 % Normal 1.7-12.0 [facility] Comment on above: Performed By: #### C BC #### [facility] [address] [id number] Jatin Tracey NEUT # 7.3 103/ul Critically high 1.4-6.5 [facility] Comment on above: Performed By: #### C BC #### [facility] [address] [id number] Jatin Webb Neutrophils/100 WBC (Bld) 68.9 % Normal 43.0-75.0 [facility] Comment on above: Performed By: #### C BC #### [facility] [address] [place], [place] [address] Jatinandrez Webb Platelet mean volume (Bld) [Entitic vol] 9.7 fL Normal 9.5-13.5 [facility] Comment on above: Performed By: #### C BC #### [facility] [address] [id number] Jatin Tracey PLT 252 103/ul Normal 150-450 [facility] Comment on above: Performed By: #### C BC #### [facility] [address] [place], [place] [address] Jatin Webb RBC 4.71 106/ul Normal 4.20-5.40 [facility] Comment on above: Performed By: #### C BC #### [facility] [address] [place], [place] [address] Jatin Webb WBC 10.6 103/ul Normal 4.0-11.0 [facility] Comment on above: Performed By: #### C BC #### [facility] [address] [place], [place] [address] ABD/PELV W CONon 12-13-19 [...] Sabiha RUSHING Date: 2020-12-12 04:08 Normal [facility] PREG HCG QUALon 12-12-2020 , QUAL Negative Normal NEGATIVE [facility] Comment on above: Performed By: #### P REG #### [facility] [address] [place], [place] [id number] Jatin Webb PROF 14(COMP METB)on 021 Albumin [Mass/Vol] 3.9 g/dL Normal 3.5-5.0 [facility] [place] Comment on above: Performed By: #### C MP #### [facility] [address] [place], [place] [address] Jatin Tracey Albumin/Globulin [Mass ratio] 1.1 {ratio} Normal [facility] Comment on above: Performed By: #### C MP #### [facility] [address] [place], [place] [address] Jatin Tracey ALP [Catalytic activity/Vol] 93 U/L Normal 38-126 [facility] Comment on above: Performed By: #### C MP #### [facility] [address] [id number] Jatin Tracey ALT [Catalytic activity/Vol] 16 U/L Normal 9-52 [facility] Comment on above: Performed By: #### C MP #### [facility] [address] [place], [place] [address] Jatin Tracey Anion gap [Moles/Vol] 17.1 mmol/L Normal [facility] Comment on above: Performed By: #### C MP #### [facility] [address] [place] [address] Jatin Tracey AST [Catalytic activity/Vol] 3 U/L Critically low 14-36 [facility] Comment on above: Performed By: #### C MP #### [facility] [address] [place], [place] [address] Jatin Tracey Bilirubin [Mass/Vol] 0.3 mg/dL Normal 0.2-1.3 [facility] Comment on above: Performed By: #### C MP #### [facility] [address] [place], [place] [address] Jatin Tracey Calcium [Mass/Vol] 8.9 mg/dL Normal 8.4-10.2 [facility] [place] Comment on above: Performed By: #### C MP #### [facility] [address] [place], [place] [address] Jatin Tracey Chloride [Moles/Vol] 106 mmol/L Normal 98-107 [facility] Comment on above: Performed By: #### C MP #### [facility] [address] [place], [place] [address] Jatin Tracey CO2 [Moles/Vol] 23.0 mmol/L Normal 22.0-30.0 [facility] Comment on above: Performed By: #### C MP #### [facility] [address] [address] Jatin Tracey Creatinine [Mass/Vol] 0.76 mg/dL Normal 0.52-1.04 [facility] Comment on above: Performed By: #### C MP #### [facility] [address] [id number] Jatin Tracey EGFR-AF PUERTO RICAN >60 Normal >=60 [facility] Comment on above: Performed By: #### C MP #### [facility] [address] [place] [address] Jatin Tracey EGFR-NON AF PUERTO RICAN >60 Normal >=60 [facility] Comment on above: Performed By: #### C MP #### [facility] [address] [place] [address] Jatin Tracey Globulin (S) [Mass/Vol] 3.7 g/dL Normal T [facility] Comment on above: Performed By: #### C MP #### [facility] [address] [place] [address] Jatin Tracey Glucose [Mass/Vol] 96 mg/dL Normal 74-106 [facility] Comment on above: Performed By: #### C MP #### [facility] [address] [place] [address] Jatin Tracey Potassium [Moles/Vol] 4.1 mmol/L Normal 3.4-5.0 [facility] Comment on above: Performed By: #### C MP #### [facility] [address] [place] [address] Jatin Tracey Protein [Mass/Vol] 7.6 g/dL Normal 6.1-8.2 [facility] Comment on above: Performed By: #### C MP #### [facility] [address] [place] [address] Jatin Tracey Sodium [Moles/Vol] 142 mmol/L Normal 137-145 [facility] Comment on above: Performed By: #### C MP #### [facility] [address] [place], [place] [address] Jatin Webb Urea nitrogen [Mass/Vol] 14.0 mg/dL Normal 6.4-19.3 [facility] Comment on above: Performed By: #### C MP #### [facility] [address] [place], [place] [address] Jatin Webb Urea nitrogen/Creatinine [Mass ratio] 18.4 mg/mg Normal [facility] Comment on above: Performed By: #### C MP #### [facility] [address] [place], [place] [address] Jatin Webb PROTIMEon 12-12-2020 INR Coag (PPP) [Relative time] 1.00 {INR} Normal [facility] Comment on above: Performed By: #### P TT, PT #### [facility] [address] [place] [address] Jatin Webb INR GUIDELINES SEE BELOW Normal [facility] Comment on above: Result Comment: MAHESH RED INR: 2.0 - 3.0 CONDITIONS NOT LISTED BELOW 2.5 - 3.5 FOR PROSTHETIC HEART VALVE REPLACEMENT 2.5 - 3.5 RECURRENT THROMBOSIS Performed By: #### P TT, PT #### [facility] [address] [place], [place] [address] Jatin Webb PT Coag (PPP) [Time] 10.8 s Normal 9.0-11.6 [facility] Comment on above: Performed By: #### P TT, PT #### [facility] [address] [place], [place] [address] Jatin Webb PTTon 12-12-2020 aPTT Coag (Bld) [Time] 26.2 s Normal 22.3-36.2 Th [facility] Comment on above: Performed By: #### P TT, PT #### [facility] [address] [place], [place] [address] Jatin Trcaey XR CHEST 1 Von 12-12-2020 XR CHEST 1 V EXAM: XR CHEST 1 V HISTORY: Chest pain left-sided rib pain COMPARISON: None. TECHNIQUE: Single frontal view chest x-ray FINDINGS: No lobar consolidation, large effusions, pneumothorax, or discrete acute bony abnormality. Cardiac size unremarkable. IMPRESSION: No radiographic evidence for acute chest abnormality. Electronically authenticated by: ODALIS BRICENO Date: 2020-12-12 03:25 Normal [facility] Vital Signs Date Time Vital Sign Value Performing Clinician Ralph llamas 04-11-2024 13:49-0500 Body mass index (BMI) [Ratio] 41.5 kg/m2 Yaritza CAMARILLO Work Phone: [facility] 04-11-2024 13:49-0500 Body weight 109.68 kg Yaritza CAMARILLO Work Phone: [facility] 04-11-2024 13:49-0500 Diastolic blood pressure 70 mm[Hg] Yaritza CAMARILLO Work Phone: [facility] 04-11-2024 13:49-0500 Systolic blood pressure 100 mm[Hg] Yaritza CAMARILLO Work Phone: [facility] 04-04-2024 14:14-0500 Body mass index (BMI) [Ratio] 41.5 kg/m2 Waldo Alia DO Work Phone: [facility] 04-04-2024 14:14-0500 Body weight 109.68 kg Waldo Alia DO Work Phone: [facility] 04-04-2024 14:14-0500 Diastolic blood pressure 72 mm[Hg] Waldo Alia DO Work Phone: [facility] 04-04-2024 14:14-0500 Systolic blood pressure 114 mm[Hg] Waldo Alia DO Work Phone: [facility] 03-26-2024 11:04-0500 Body mass index (BMI) [Ratio] 41.33 kg/m2 Yaritza CAMARILLO Work Phone: [facility] 03-26-2024 11:04-0500 Body weight 109.23 kg Yaritza CAMARILLO Work Phone: [facility] 03-26-2024 11:04-0500 Diastolic blood pressure 76 mm[Hg] Yaritza CAMARILLO Work Phone: [facility] 03-26-2024 11:04-0500 Systolic blood pressure 118 mm[Hg] Yaritza Lindsey PA Work Phone: [facility] 03-08-2024 11:32-0500 Body mass index (BMI) [Ratio] 40.92 kg/m2 Waldo Alia DO Work Phone: [facility] 03-08-2024 11:32-0500 Body weight 108.14 kg Waldo Alia DO Work Phone: [facility] 03-08-2024 11:32-0500 Diastolic blood pressure 68 mm[Hg] Waldo Alia DO Work Phone: [facility] 03-08-2024 11:32-0500 Systolic blood pressure 120 mm[Hg] Waldo Alia DO Work Phone: [facility] 02-23-2024 13:55-0400 Body mass index (BMI) [Ratio] 40.51 kg/m2 Yaritza Lindsey PA Work Phone: [facility] 02-23-2024 13:55-0400 Body weight 107.05 kg Yaritza Lindsey PA Work Phone: [facility] 02-23-2024 13:55-0400 Diastolic blood pressure 74 mm[Hg] Yaritza Lindsey PA Work Phone: [facility] 02-23-2024 13:55-0400 Systolic blood pressure 118 mm[Hg] Yaritza Modale PA Work Phone: [facility] 02-07-2024 10:54-0400 Body mass index (BMI) [Ratio] 39.95 kg/m2 Yaritza Modale PA Work Phone: [facility] 02-07-2024 10:54-0400 Body weight 105.58 kg Yaritza Modale PA Work Phone: [facility] 02-07-2024 10:54-0400 Diastolic blood pressure 72 mm[Hg] Yaritza Lindsey PA Work Phone: [facility] 02-07-2024 10:54-0400 Systolic blood pressure 116 mm[Hg] Yaritza CAMARILLO Work Phone: [facility] 01-12-2024 12:00-0400 Body mass index (BMI) [Ratio] 38.59 kg/m2 Waldo Alia DO Work Phone: [facility] 01-12-2024 12:00-0400 Body weight 101.97 kg Waldo Alia DO Work Phone: [facility] 01-12-2024 12:00-0400 Diastolic blood pressure 70 mm[Hg] Waldo Alia DO Work Phone: [facility] 01-12-2024 12:00-0400 Systolic blood pressure 120 mm[Hg] Waldo Alia DO Work Phone: [facility] 12-14-2023 11:24-0400 Body mass index (BMI) [Ratio] 37.61 kg/m2 Yaritza CAMARILLO Work Phone: [facility] 12-14-2023 11:24-0400 Body weight 99.39 kg Yaritza CAMARILLO Work Phone: [facility] 12-14-2023 11:24-0400 Diastolic blood pressure 62 mm[Hg] Yaritza CAMARILLO Work Phone: [facility] 12-14-2023 11:24-0400 Systolic blood pressure 102 mm[Hg] Yaritza CAMARILLO Work Phone: [facility] Healthcare Encounters Encounter Date Encounter Type Care Provider Facility Start: 04-11-2024 End: 04-11-2024 Bamboo flowsheet Yaritza CAMARILLO Work Phone: [facility] Start: 04-11-2024 End: 04-11-2024 Bamboo flowsheet Yaritza CAMARILLO Work Phone: [facility] Start: 04-11-2024 End: 04-11-2024 flow sheet Yaritza CAMARILLO Work Phone: [facility] Comment on above: 37 weeks gestation o f ; Third trimester ; Excessive growth affecting management of in third trimester, single or unspecified fetus Start: 04-04-2024 End: 04-04-2024 Bamboo flowsheet Waldo Alia DO Work Phone: [facility] Start: 04-04-2024 End: 04-07-2024 Bamboo flowsheet Waldo Alia DO Work Phone: [facility] Start: 04-04-2024 End: 04-07-2024 Clinisync Result Encounter Generic External Data Provider [facility] External Department Unsolicited Start: 04-04-2024 End: 04-04-2024 flow sheet Waldo Alia DO Work Phone: [facility] Comment on above: Third trimester preg lakeisha; 36 weeks gestation of ; Upper respiratory tract infection, unspecified type; Heartburn during in third trimester Start: 04-04-2024 End: 04-04-2024 ambulatory WALDO ALIA Not Available Start: 03-26-2024 End: 03-26-2024 Bamboo flowsheet Yaritza CAMARILLO Work Phone: [facility] Start: 03-26-2024 End: 03-26-2024 Bamboo flowsheet Yaritza CAMARILLO Work Phone: [facility] Start: 03-26-2024 End: 03-26-2024 ambulatory YARITZA PORTILLO Not Available Start: 03-26-2024 End: 03-26-2024 flow sheet Yaritza CAMARILLO Work Phone: [facility] Comment on above: Dyspepsia (Primary D x); Third trimester ; 35 weeks gestation of Start: 03-15-2024 End: 03-15-2024 Clinisync Result Encounter Waldo Alia DO Work Phone: [facility] Unsolicited Start: 03-15-2024 End: 03-15-2024 Clinisync Result Encounter Waldo Alia DO Work Phone: [facility] Unsolicited Start: 03-08-2024 End: 03-08-2024 Bamboo flowsheet Waldo Alia DO Work Phone: [facility] Start: 03-08-2024 End: 03-08-2024 Bamboo flowsheet Waldo Alia DO Work Phone: [facility] Start: 03-08-2024 End: 03-08-2024 ambulatory WALDO ALIA Not Available Start: 03-08-2024 End: 03-08-2024 flow sheet Waldo Alia DO Work Phone: [facility] Comment on above: 32 weeks gestation o f ; Third trimester ; Gastroesophageal reflux in ; Nausea/vomiting in ; Hematuria, unspecified type Start: 02-23-2024 End: 02-23-2024 Bamboo flowsheet Yaritza CAMARILLO Work Phone: [facility] Start: 02-23-2024 End: 02-23-2024 Bamboo flowsheet Yaritza CAMARILLO Work Phone: [facility] Start: 02-23-2024 End: 02-23-2024 ambulatory YARITZA PORTILLO Not Available Start: 02-23-2024 End: 02-23-2024 flow sheet Yaritza CAMARILLO Work Phone: [facility] Comment on above: Third trimester preg lakeisha; 30 weeks gestation of Start: 02-07-2024 End: 02-07-2024 Bamboo flowsheet Yaritza CAMARILLO Work Phone: [facility] Start: 02-07-2024 End: 02-07-2024 Bamboo flowsheet Yaritza CAMARILLO Work Phone: [facility] Start: 02-07-2024 End: 02-07-2024 ambulatory YARITZA PORTILLO Not Available Start: 02-07-2024 End: 02-07-2024 flow sheet Yaritza CAMARILLO Work Phone: [facility] Comment on above: Second trimester [...] External Department Unsolicited Start: 01-12-2024 End: 01-12-2024 Bamboo flowsheet Waldo Alia DO Work Phone: [facility] Start: 01-12-2024 End: 01-12-2024 Bamboo flowsheet Waldo Alia DO Work Phone: [facility] Start: 01-12-2024 End: 01-12-2024 ambulatory WALDO ALIA Not Available Start: 01-12-2024 End: 01-12-2024 flow sheet Waldo Alia DO Work Phone: [facility] Comment on above: 24 weeks gestation o f ; Diabetes mellitus screening; UTI symptoms Start: 12-14-2023 End: 12-14-2023 Bamboo flowsheet Yaritza CAMARILLO Work Phone: [facility] Start: 12-14-2023 End: 12-19-2023 Clinisync Result Encounter Generic External Data Provider [facility] External [facility] Unsolicited Start: 12-14-2023 End: 12-16-2023 External Result Encounter Yaritza CAMARILLO Work Phone: [facility] Unsolicited Start: 12-14-2023 End: 12-19-2023 External Result Encounter Yaritza CAMARILLO Work Phone: [facility] Unsolicited Start: 12-14-2023 End: 12-14-2023 Office outpatient visit 15 minutes Yaritza CAMARILLO Work Phone: [facility] Comment on above: 20 weeks gestation o f ; Well woman exam with routine gynecological exam; Screening, , for anatomic survey; STD exposure; Vaginal discharge; Nausea/vomiting in ; Gastroesophageal reflux in ; Nonintractable headache, unspecified chronicity pattern, unspecified headache type; Constipation, unspecified constipation type Start: 12-14-2023 End: 12-14-2023 Patient encounter procedure Yaritza CAMARILLO Work Phone: [facility] Start: 12-14-2023 End: 12-14-2023 ambulatory YARITZA PORTILLO Not Available Start: 10-31-2023 End: 10-31-2023 ambulatory WALDOMarcellus GARCIAO Not Available Start: 10-06-2023 End: 10-06-2023 ambulatory WALDO R ALIA Facility:[facility] Start: 09-29-2023 End: 09-29-2023 ambulatory SARAH MOSQUEDAZPATRICK Not Available Start: 08-02-2023 End: 08-02-2023 ambulatory SARAH A NELSON Not Available Start: 04-22-2023 End: 04-22-2023 ambulatory [facility] Facility:[facility] Start: 04-13-2023 End: 04-13-2023 ambulatory SARAH MOSQUEDAZPATRICK Not Available Start: 01-10-2023 End: 01-10-2023 ambulatory [facility] Facility:[facility] Start: 12-11-2022 ambulatory [facility] Facility:[facility] Start: 11-29-2022 End: 11-29-2022 ambulatory [facility] Facility:[facility] Start: 11-17-2022 End: 11-17-2022 ambulatory WALDOMarcellus ROJO Facility:[facility] Start: 10-18-2022 End: 10-18-2022 ambulatory [facility] Facility:[facility] Start: 12-12-2020 End: 12-12-[address] BRANDON LE Facility:[facility] Procedures Date Procedure Procedure Detail Performing Clinician Start: 04-11-2024 Urnls dip stick/tabl et rgnt non-auto w/o micrscp Yaritza CAMARILLO Work Phone: Start: 04-04-2024 Urnls dip stick/tabl et rgnt non-auto w/o micrscp Waldo Alia DO Work Phone: Start: 04-04-2024 ALL MISCELLANEOUS TEST Waldo Alia DO Work Phone: Start: 03-26-2024 Urnls dip stick/tabl et rgnt non-auto w/o micrscp Yaritza CAMARILLO Work Phone: Start: 03-15-2024 [facility] UA (CLEAN/CATCH) 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 Waldo Alia DO Work Phone: Start: 03-08-2024 Urnls dip stick/tabl et rgnt non-auto w/o micrscp Waldo Alia DO Work Phone: Start: 02-23-2024 Urnls dip stick/tabl et rgnt non-auto w/o micrscp Yaritza CAMARILLO Work Phone: Start: 02-07-2024 Urnls dip stick/tabl et rgnt non-auto w/o micrscp Yaritza CAMARILLO Work Phone: Start: 02-06-2024 GLUCOSE 1 HOUR Waldo Fa zio DO Work Phone: Start: 01-12-2024 Urnls dip stick/tabl et rgnt non-auto w/o micrscp Waldo Alia DO Work Phone: Start: 12-14-2023 AFP, SERUM, OPEN SPI NA BIFIDA Waldo Alia DO Work Phone: Start: 12-14-2023 URETHRITIS/DISCHARGE PLUS VAGINITIS (HTRX) Yaritza CAMARILLO Work Phone: Start: 12-14-2023 Urnls dip stick/tabl et rgnt non-auto w/o micrscp Yaritza CAMARILLO Work Phone: Start: 12-14-2023 Cytp cerv/vag auto t hin layer prep mnl screen Waldo Alia DO Work Phone: Plan of Treatment Date Care Activity Detail Author Start: 04-19-2024 End: 04-19-2024 Patient encounter procedure 04/19/2024 11:00 AM EST Routine [facility] [address] [place] [address] Waldo Rojo, DO [address] [place] [address] [facility] Start: 04-11-2024 End: 04-11-2025 US for US OB SCAN FOR GROWTH Imaging Routine Excessive growth affecting management of in third trimester, single or unspecified fetus Expected: 04/11/2024 (Approximate), Expires: 04/11/2025 [facility] Work Phone: Comment on above: Expected: 04/11/2024 (Approximate), Expires: 04/11/2025 Start: 04-11-2024 End: 04-11-2024 Patient encounter procedure 04/11/2024 1:20 PM EST Routine [facility] [address] [place] [address] [place] [phone] Yaritza Portillo PA [address] [place] [address] [place] [address] [facility] Start: 04-04-2024 End: 04-04-2025 CULTURE, GROUP B STREP WITH SUSCEPTIBLITY CULTURE, GROUP B STREP WITH SUSCEPTIBLITY Lab Routine Third trimester Expected: 04/04/2024, Expires: 04/04/2025 [facility] Work Phone: Comment on above: Expected: 04/04/2024 , Expires: 04/04/2025 Start: 04-04-2024 End: 04-04-2024 Patient encounter procedure 04/04/2024 1:30 PM EST Routine [facility] [address] [place] [address] [place] [phone] Waldo Rojo DO [address] [facility] [address] [place] [address] Arrived [facility] Comment on above: Arrived Start: 03-26-2024 End: 03-26-2024 Patient encounter procedure 03/26/2024 10:20 AM EST Routine [facility] [address] [facility] [phone] Yaritza Portillo PA [address] [facility] [place] [address] [facility] Start: 03-08-2024 End: 03-08-2024 Patient encounter procedure 03/08/2024 11:00 AM EST Routine [facility] [address] [place] [phone] Waldo Rojo DO [address] [facility] [address] [place], [place] [id number] [facility] Start: 02-23-2024 End: 02-23-2024 Patient encounter procedure 02/23/2024 1:30 PM EDT Routine [facility] [address] [place] [phone] Yaritza Portillo, PA [address] [facility] [address] [place] [address] [facility] Start: 02-08-2024 End: 02-08-2024 Patient encounter procedure 02/08/2024 1:50 PM EDT Routine [facility] [address] [place] [phone] Yaritza Portillo, PA [address] [facility] [place] [address] [facility] Start: 02-07-2024 End: 02-06-2025 US for US OB SCAN FOR GROWTH Imaging Routine Excessive growth affecting management of , antepartum, single or unspecified fetus Expected: 02/07/2024 (Approximate), Expires: 02/06/2025 [facility] Work Phone: Comment on above: Expected: 02/07/2024 (Approximate), Expires: 02/06/2025 Start: 01-12-2024 End: 01-11-2025 CBC panel - Blood by Automated count CBC Lab Routine Diabetes mellitus screening Expected: 01/12/2024 (Approximate), Expires: 01/11/2025 [facility] Work Phone: Comment on above: Expected: 01/12/2024 (Approximate), Expires: 01/11/2025 Start: 01-12-2024 End: 01-11-2025 Measurement of glucose 1 hour after glucose challenge for glucose tolerance test Glucose tolerance, 1 hour Lab Routine Diabetes mellitus screening Expected: 01/12/2024 (Approximate), Expires: 01/11/2025 [facility] Comment on above: Expected: 01/12/2024 (Approximate), Expires: 01/11/2025 Start: 01-12-2024 End: 01-12-2024 Patient encounter procedure 01/12/2024 11:50 AM EDT Routine [facility] [address] [facility] [place] [address] Waldo Rojo DO [address] [place], [place] [id number] [facility] Start: 12-25-2023 Influenza vaccination Influenza Vacc ine (#1) [facility] Start: 12-14-2023 End: 02-13-2024 Alpha fetoprotein, maternal Alpha fetoprotein, maternal Lab Routine 20 weeks gestation of Expected: 12/14/2023 (Approximate), Expires: 02/13/2024 [facility] Comment on above: Expected: 12/14/2023 (Approximate), Expires: 02/13/2024 Start: 12-14-2023 End: 12-13-2024 US for US OB ANATOMY SINGLE W US OB CERVICAL LENGTH Imaging Routine Screening, , for anatomic survey Expected: 12/14/2023 (Approximate), Expires: 12/13/2024 [facility] Comment on above: Expected: 12/14/2023 (Approximate), Expires: 12/13/2024 Start: 12-14-2023 End: 12-14-2023 Patient encounter procedure 12/14/2023 11:00 AM EDT Office Visit [facility] OB [address] [facility] [id number] Yaritza Portillo PA [address] [place] [address] Arrived [facility] Comment on above: Arrived Bacteria identified in Urine by Culture Urine culture Microbiology Routine Hematuria, unspecified type Ordered: 03/08/2024 [facility] Work Phone: Comment on above: Ordered: 03/08/2024 CHLAMYDIA TRACHOMATI S (GENITO/STI) CHLAMYDIA TRACHOMATIS (GENITO/STI) Lab Routine STD exposure Ordered: 12/14/2023 [facility] Comment on above: Ordered: 12/14/2023 Cytology Cervical or vaginal smear or scraping study Pap Smear Pathology and Cytology Routine 20 weeks gestation of Well woman exam with routine gynecological exam Ordered: 12/14/2023 [facility] Work Phone: Comment on above: Ordered: 12/14/2023 Neisseria gonorrhoea e DNA [Presence] in Unspecified specimen by HERBER with probe detection Neisseria gonorrhea DNA probe, direct Lab Routine STD exposure Ordered: 12/14/2023 [facility] Comment on above: Ordered: 12/14/2023 SURESWAB(R) ADVANCED VAGINITIS PLUS, TMA SURESWAB(R) ADVANCED VAGINITIS PLUS, TMA Pathology and Cytology Routine Vaginal discharge Ordered: 12/14/2023 [facility] Comment on above: Ordered: 12/14/2023 Immunizations Immunization Date Immunization Notes Care Provider [facility] 03-01-2014 hepatitis A vaccine, pediatric/adolescent dosage, 2 dose schedule Yaritza CAMARILLO Work Phone: [facility] 07-26-2013 hepatitis A vaccine, pediatric/adolescent dosage, 2 dose schedule Yaritza CAMARILLO Work Phone: [facility] 07-26-2013 meningococcal polysaccharide (groups A, C, Y and W-135) diphtheria toxoid conjugate vaccine (MCV4P) Yaritza CAMARILLO Work Phone: [facility] 07-26-2013 tetanus toxoid, redu mary beth diphtheria toxoid, and acellular pertussis vaccine, adsorbed Yaritza CAMARILLO Work Phone: [facility] 07-26-2013 varicella virus vaccine Yaritza CAMARILLO Work Phone: [facility] 05-16-2012 influenza virus vacc ine, whole virus Yaritza Modale PA Work Phone: [facility] 05-16-2012 influenza virus vacc ine, unspecified formulation Yaritza Lindsey PA Work Phone: [facility] 02-12-2009 novel influenza-H1N1 -09, preservative-free, injectable Yaritza Modale PA Work Phone: [facility] 04-29-2008 influenza virus vacc ine, whole virus Yaritza CAMARILLO Work Phone: [facility] 03-29-2007 influenza, seasonal, injectable Yaritza Modale PA Work Phone: [facility] 09-15-2006 diphtheria, tetanus toxoids and acellular pertussis vaccine, 5 pertussis antigens Yaritza CAMARILLO Work Phone: [facility] 09-15-2006 haemophilus influenz ae type b vaccine, HbOC conjugate Yaritza CAMARILLO Work Phone: [facility] 09-15-2006 measles, mumps and r ubella virus vaccine Yaritza CAMARILLO Work Phone: [facility] 09-15-2006 poliovirus vaccine, inactivated Yaritza CAMARILLO Work Phone: [facility] 07-30-2002 diphtheria, tetanus toxoids and acellular pertussis vaccine, unspecified formulation Yaritza CAMARILLO Work Phone: [facility] 07-30-2002 haemophilus influenz ae type b vaccine, conjugate unspecified formulation Yaritza CAMARILLO Work Phone: [facility] 07-30-2002 measles, mumps and r ubella virus vaccine Yaritza Modale PA Work Phone: [facility] 07-30-2002 varicella virus vaccine Yaritza CAMARILLO Work Phone: [facility] 2001 diphtheria, tetanus toxoids and acellular pertussis vaccine, unspecified formulation Yaritza CAMARILLO Work Phone: [facility] 2001 haemophilus influenz ae type b vaccine, conjugate unspecified formulation Yaritza CAMARILLO Work Phone: [facility] 2001 hepatitis B vaccine, pediatric or pediatric/adolescent dosage Yaritza CAMARILLO Work Phone: [facility] 2001 poliovirus vaccine, unspecified formulation Yaritza CAMARILLO Work Phone: [facility] 2001 diphtheria, tetanus toxoids and acellular pertussis vaccine, unspecified formulation Yaritza CAMARILLO Work Phone: [facility] 2001 haemophilus influenz ae type b vaccine, conjugate unspecified formulation Yaritza CAMARILLO Work Phone: [facility] 2001 pneumococcal conjuga te vaccine, 7 valent Yaritza CAMARILLO Work Phone: [facility] 2001 poliovirus vaccine, unspecified formulation Yaritza CAMARILLO Work Phone: [facility] 2001 diphtheria, tetanus toxoids and acellular pertussis vaccine, unspecified formulation Yaritza CAMARILLO Work Phone: [facility] 2001 haemophilus influenz ae type b vaccine, conjugate unspecified formulation Yaritza CAMARILLO Work Phone: [facility] 2001 hepatitis B vaccine, pediatric or pediatric/adolescent dosage Yaritza CAMARILLO Work Phone: [facility] 2001 poliovirus vaccine, unspecified formulation Yaritza CAMARILLO Work Phone: [facility] 2001 hepatitis B vaccine, pediatric or pediatric/adolescent dosage Yaritza CAMARILLO Work Phone: [facility] Payers Date Payer Category Payer Unknown [id number] 2022 Medicaid [employer] [place] [employer] [id number] 2022-Present [address] [place] [address] [id number] 2022 Medicaid (Managed Care) [employer] [id number] 2022 [employer] Shield [facility] er [id number] 2022 Unknown 2022 Unknown [id number] 2001 Unknown [id number] [id number]. 593 2001 Unknown [id number] 2.16.840.1.260474.3.579.2. 2001 Unknown [id number] 2.16.840.1.383145.3.579.2. 8 2001 Unknown [id number] 2.16.840.1.548816.3.579.2. 8 2001 Unknown [id number] 2.16.840.1.796184.3.579.2. 8 2001 Unknown [id number] 2.16.840.1.365636.3.579.2. 718 2001 Unknown [id number] 2.16.840.1.923560.3.579.2. 9 2001 Unknown [id number] 2.16.840.1.240193.3.579.2. 9 2001 Unknown [id number] 2.16.840.1.176379.3.579.2. 9 2001 Unknown [id number] 2.16.840.1.986807.3.579.2. 9 2001 Unknown [id number] 2.16.840.1.786718.3.579.2. 9 2001 Unknown [id number] 2.16.840.1.815699.3.579.2. 9 2001 Unknown [id number] 2.16.840.1.838316.3.579.2. 9 2001 Unknown [id number] 2.16.840.1.308539.3.579.2. 9 2001 Unknown [id number] 2.16.840.1.014309.3.579.2. 9 2001 Unknown [id number] 2.16.840.1.860905.3.579.2. 9 2001 Unknown [id number] 2.16.840.1.066835.3.579.2. 9 1959 Unknown [id number] 1959 Unknown [id number] Social History Date Type Detail Facility Start: 04-13-2023 Tobacco smoking status [facility] Ex-smoke r [facility] History of tobacco use Current smoker [facility] History of tobacco use Cigarette Smoker [facility] Start: 04-13-2023 Tobacco use and exposure User of smokeless tobacco [facility] Start: 12-14-2023 End: 01-12-2024 Alcoholic beverage intake Current drinker of alcohol (finding) [facility] Start: 08-30-2022 End: 08-02-2023 History of Social function [facility] Start: 08-30-2022 End: 08-02-2023 Alcohol [...] Sex assigned at Not on file [facility] Clinical Notes 01-10-2023 to 04-11-2024 MARQUISE Scott - 04/11/2024 1:20 PM Sukhwinder Mark [employer] - 04/04/2024 1:30 PM MARQUISE Cox - 03/26/2024 10:20 AM Aleksandar Parsons [employer]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 female who presents for Routine Visit Patient presents today for Return OB appointment. MEDICATIONS Current Outpatient Medications Medication Instructions metoclopramide (REGLAN) 10 mg, Oral, 3 times daily before meals, Take 1 tablet by mouth 30 minutes prior to meals 3 times daily as needed for nausea. omeprazole (PRILOSEC) 20 mg, Oral, Daily before breakfast, Do not crush or chew. ondansetron ODT (ZOFRAN-ODT) 4 mg, Oral, Every 4 hours PRN pantoprazole (PROTONIX) 40 mg, Oral, Daily before breakfast, Do not crush, chew, or split. ALLERGIES Allergies Allergen Reactions Buspirone Other Reaction(s): Increased anxiety/hallucinations Cholestatin Other Reaction(s): Unknown Lurasidone Other Reaction(s): restlessness Latuda Other Unknown PROBLEMS Active Ambulatory Problems Diagnosis Date Noted Attention deficit hyperactivity disorder (ADHD) ([facility] [place] 08/30/2022 Bipolar II disorder ([facility] [place] 08/30/2022 Acute non intractable tension-type headache 12/11/2019 Adjustment disorder with depressed mood ([facility] [place] 12/11/2019 Allergic rhinitis 11/23/2018 Amenorrhea 02/23/2021 Anxiety 03/23/2016 Attention deficit 03/04/2023 Chronic fatigue 03/04/2023 Chronic gastritis without bleeding 03/04/2023 Dysfunction of both eustachian tubes 12/07/2018 Dyspareunia due to medical condition in female 03/04/2023 Gastritis and duodenitis 06/03/2015 Grieving ([facility] [place] 03/04/2023 Infertility, female 03/04/2023 Menstrual cramps 07/04/2017 Pelvic congestion syndrome 03/04/2023 Slow transit constipation 04/11/2017 Vitamin D deficiency 03/13/2019 Migraine with aura and with status migrainosus, not intractable ([facility] [place] 05/27/2020 Mixed anxiety and depressive disorder 12/25/2019 [...] tube, bilateral Adjustment disorder with depressed mood ([facility] [place] 12/11/2019 Allergic rhinitis unspecified seasonality, unspecified trigger [...] reviewed. Vitals: Estimated body mass index is 41.5 kg/m as calculated from the following: Height as of 24: 5' 4 . Weight as of this encounter: 241 lb 12.8 oz. BP: 100/70 No LMP recorded. Patient is . ASSESSMENT & PLAN ICD-10-CM 1. 37 weeks gestation of Z3A.37 POCT urinalysis dipstick manually resulted 2. Third trimester Z34.93 POCT urinalysis dipstick manually resulted 3. Excessive growth affecting management of in third trimester, single or unspecified fetus O36.63X0 US OB SCAN FOR GROWTH Return OB: Patient presents today for a routine obstetrics appointment. Patient is currently 37w3d . Patient states she is doing well but has complaints of being tired due to current . Patient has verbalizes frequent movement. labor precautions was discussed/given and patient was instructed to perform kick counts three times a day. Patient concerned for decreased movement. Pt will be sent for nst and bpp today at the [facility] Orders Placed This Encounter Procedures US OB SCAN FOR GROWTH POCT urinalysis dipstick manually resulted Follow Up: Patient is to return to office in 1 week for routine OB appointment. Documented by MARQUISE Scott on behalf of: MARQUISE Scott documented in this encounter [facility] 04-04-2024 History of Presen t illness Narrative Reason for Appointment: Patient ID: Brynn Wallace is a 23 y.o. female who presents for Routine Visit Patient presents today for Return OB appointment. MEDICATIONS Current Outpatient Medications Medication Instructions metoclopramide (REGLAN) 10 mg, Oral, 3 times daily metoclopramide (REGLAN) 10 mg, Oral, 3 times daily before meals, Take 1 tablet by mouth 30 minutes prior to meals 3 times daily as needed for nausea. ondansetron ODT (ZOFRAN-ODT) 4 mg, Oral, Every 4 hours PRN pantoprazole (PROTONIX) 40 mg, Oral, Daily before breakfast, Do not crush, chew, or split. ALLERGIES Allergies Allergen Reactions Buspirone Other Reaction(s): Increased anxiety/hallucinations Cholestatin Other Reaction(s): Unknown Lurasidone Other Reaction(s): restlessness Latuda Other Unknown PROBLEMS Active Ambulatory Problems Diagnosis Date Noted Attention deficit hyperactivity disorder (ADHD) ([facility] [place] 08/30/2022 Bipolar II disorder ([facility]) 08/30/2022 Acute non intractable tension-type headache 12/11/2019 Adjustment disorder with depressed mood ([facility] [place] 12/11/2019 Allergic rhinitis 11/23/2018 Amenorrhea 02/23/2021 Anxiety 03/23/2016 Attention deficit 03/04/2023 Chronic fatigue 03/04/2023 Chronic gastritis without bleeding 03/04/2023 Dysfunction of both eustachian tubes 12/07/2018 Dyspareunia due to medical condition in female 03/04/2023 Gastritis and duodenitis 06/03/2015 Grieving ([facility]) 03/04/2023 Infertility, female 03/04/2023 Menstrual cramps 07/04/2017 Pelvic congestion syndrome 03/04/2023 Slow transit constipation 04/11/2017 Vitamin D deficiency 03/13/2019 Migraine with aura and with status migrainosus, not intractable ([facility]) 05/27/2020 Mixed anxiety and depressive disorder 12/25/2019 [...] tube, bilateral Adjustment disorder with depressed mood ([facility]) 12/11/2019 Allergic rhinitis unspecified seasonality, unspecified trigger [...] Constitutional: Appearance: Normal appearance. She is well-developed. Genitourinary: Vulva normal. Cardiovascular: Rate and Rhythm: Normal rate and [...] nursing note reviewed. Exam conducted with a eligibility counselor present. Vitals: Estimated body mass index is 41.5 kg/m as calculated from the following: Height as of 24: 5' 4 . Weight as of this encounter: 241 lb 12.8 oz. BP: 114/72 No LMP recorded. Patient is . ASSESSMENT & PLAN ICD-10-CM 1. Third trimester Z34.93 CULTURE, GROUP B STREP WITH SUSCEPTIBLITY POCT urinalysis dipstick manually resulted 2. 36 weeks gestation of Z3A.36 POCT urinalysis dipstick manually resulted Patient is doing well but has complaints of being tired and having maternal discomfort due to . Patient verbalized frequent movement and was instructed to perform kick counts three times per day. labor precautions were given, LARC consent was signed/declined, and GBS was obtained. Cervical check was performed and patient is 0cm dilated. Zpack and prilosec faxed to pharmacy. Orders Placed This Encounter Procedures CULTURE, GROUP B STREP WITH SUSCEPTIBLITY POCT urinalysis dipstick manually resulted Follow Up: Patient is to return to office in 1 week for routine OB appointment Documented by Tracey Mark LPN on behalf of: Waldo Rojo DO documented in this encounter [facility] 03-26-2024 History of Presen t illness Narrative [...] Date Noted Attention deficit hyperactivity disorder (ADHD) ([facility]) 08/30/2022 Bipolar II disorder ([facility]) 08/30/2022 Acute non intractable tension-type headache 12/11/2019 Adjustment disorder with depressed mood ([facility] [place] 12/11/2019 Allergic rhinitis 11/23/2018 Amenorrhea 02/23/2021 Anxiety 03/23/2016 Attention deficit 03/04/2023 Chronic fatigue 03/04/2023 Chronic gastritis without bleeding 03/04/2023 Dysfunction of both eustachian tubes 12/07/2018 Dyspareunia due to medical condition in female 03/04/2023 Gastritis and duodenitis 06/03/2015 Grieving ([facility]) 03/04/2023 Infertility, female 03/04/2023 Menstrual cramps 07/04/2017 Pelvic congestion syndrome 03/04/2023 Slow transit constipation 04/11/2017 Vitamin D deficiency 03/13/2019 Migraine with aura and with status migrainosus, not intractable ([facility]) 05/27/2020 Mixed anxiety and depressive disorder 12/25/2019 [...] tube, bilateral Adjustment disorder with depressed mood ([facility]) 12/11/2019 Allergic rhinitis unspecified seasonality, unspecified trigger [...] of: MARQUISE Scott documented in this encounter [facility] 03-08-2024 History of Presen t illness Narrative [...] Date Noted Attention deficit hyperactivity disorder (ADHD) ([facility] [place] 08/30/2022 Bipolar II disorder ([facility] [place] 08/30/2022 Acute non intractable tension-type headache 12/11/2019 Adjustment disorder with depressed mood ([facility] [place] 12/11/2019 Allergic rhinitis 11/23/2018 Amenorrhea 02/23/2021 Anxiety 03/23/2016 Attention deficit 03/04/2023 Chronic fatigue 03/04/2023 Chronic gastritis without bleeding 03/04/2023 Dysfunction of both eustachian tubes 12/07/2018 Dyspareunia due to medical condition in female 03/04/2023 Gastritis and duodenitis 06/03/2015 Grieving ([facility] [place] 03/04/2023 Infertility, female 03/04/2023 Menstrual cramps 07/04/2017 Pelvic congestion syndrome 03/04/2023 Slow transit constipation 04/11/2017 Vitamin D deficiency 03/13/2019 Migraine with aura and with status migrainosus, not intractable ([facility] [place] 05/27/2020 Mixed anxiety and depressive disorder 12/25/2019 [...] tube, bilateral Adjustment disorder with depressed mood ([facility] [place]) 12/11/2019 Allergic rhinitis unspecified seasonality, unspecified trigger [...] nursing note reviewed. Exam conducted with a eligibility counselor present. Vitals: Estimated body mass index is [...] like for order to be sent to [facility] so she did not have to drive back to [place]. Informed patient that order would be sent to [facility] Scheduling for her to go give urine sample. --ss Documented by Sera Parsons LPN on behalf of: Waldo Rojo DO documented in this encounter [facility] 02-23-2024 History of Presen t illness Narrative [...] Date Noted Attention deficit hyperactivity disorder (ADHD) ([facility]) 08/30/2022 Bipolar II disorder ([facility]) 08/30/2022 Acute non intractable tension-type headache 12/11/2019 Adjustment disorder with depressed mood ([facility]) 12/11/2019 Allergic rhinitis 11/23/2018 Amenorrhea 02/23/2021 Anxiety 03/23/2016 Attention deficit 03/04/2023 Chronic fatigue 03/04/2023 Chronic gastritis without bleeding 03/04/2023 Dysfunction of both eustachian tubes 12/07/2018 Dyspareunia due to medical condition in female 03/04/2023 Gastritis and duodenitis 06/03/2015 Grieving ([facility]) 03/04/2023 Infertility, female 03/04/2023 Menstrual cramps 07/04/2017 Pelvic congestion syndrome 03/04/2023 Slow transit constipation 04/11/2017 Vitamin D deficiency 03/13/2019 Migraine with aura and with status migrainosus, not intractable ([facility]) 05/27/2020 Mixed anxiety and depressive disorder 12/25/2019 [...] tube, bilateral Adjustment disorder with depressed mood ([facility]) 12/11/2019 Allergic rhinitis unspecified seasonality, unspecified trigger [...] of: MARQUISE Scott documented in this encounter [facility] 02-07-2024 History of Presen t illness Narrative [...] Date Noted Attention deficit hyperactivity disorder (ADHD) ([facility]) 08/30/2022 Bipolar II disorder ([facility]) 08/30/2022 Acute non intractable tension-type headache 12/11/2019 Adjustment disorder with depressed mood ([facility]) 12/11/2019 Allergic rhinitis 11/23/2018 Amenorrhea 02/23/2021 Anxiety 03/23/2016 Attention deficit 03/04/2023 Chronic fatigue 03/04/2023 Chronic gastritis without bleeding 03/04/2023 Dysfunction of both eustachian tubes 12/07/2018 Dyspareunia due to medical condition in female 03/04/2023 Gastritis and duodenitis 06/03/2015 Grieving ([facility] [place] 03/04/2023 Infertility, female 03/04/2023 Menstrual cramps 07/04/2017 Pelvic congestion syndrome 03/04/2023 Slow transit constipation 04/11/2017 Vitamin D deficiency 03/13/2019 Migraine with aura and with status migrainosus, not intractable ([facility] [place] 05/27/2020 Mixed anxiety and depressive disorder 12/25/2019 [...] tube, bilateral Adjustment disorder with depressed mood ([facility] [place]) 12/11/2019 Allergic rhinitis unspecified seasonality, unspecified trigger [...] nursing note reviewed. Exam conducted with a eligibility counselor present. Vitals: Estimated body mass index is [...] of: MARQUISE Scott documented in this encounter [facility] 01-12-2024 History of Presen t illness Narrative Reason for Appointment: Patient ID: Brynn Wallace is a 23 y.o. female who presents for Routine Visit Patient presents today for Return OB appointment. MEDICATIONS Current Outpatient Medications Medication Instructions albuterol HFA 90 mcg/act inhaler 2 puffs, Inhalation, Every 4 hours PRN magnesium oxide (MAG-OX) 400 mg, Oral, Daily nitrofurantoin (macrocrystal-monohydrate) (MACROBID) 100 mg, Oral, 2 times daily omeprazole (PRILOSEC) 20 mg, Oral, Daily before breakfast, Do not crush or chew. ondansetron ODT (ZOFRAN-ODT) 4 mg, Oral, Every 4 hours PRN ALLERGIES Allergies Allergen Reactions Buspirone Other Reaction(s): Increased anxiety/hallucinations Cholestatin Other Reaction(s): Unknown Lurasidone Other Reaction(s): restlessness Latuda Other Unknown PROBLEMS Active Ambulatory Problems Diagnosis Date Noted Attention deficit hyperactivity disorder (ADHD) ([facility] [place] 08/30/2022 Bipolar II disorder ([facility] [place] 08/30/2022 Acute non intractable tension-type headache 12/11/2019 Adjustment disorder with depressed mood ([facility] [place] 12/11/2019 Allergic rhinitis 11/23/2018 Amenorrhea 02/23/2021 Anxiety 03/23/2016 Attention deficit 03/04/2023 Chronic fatigue 03/04/2023 Chronic gastritis without bleeding 03/04/2023 Dysfunction of both eustachian tubes 12/07/2018 Dyspareunia due to medical condition in female 03/04/2023 Gastritis and duodenitis 06/03/2015 Grieving ([facility] [place] 03/04/2023 Infertility, female 03/04/2023 Menstrual cramps 07/04/2017 Pelvic congestion syndrome 03/04/2023 Slow transit constipation 04/11/2017 Vitamin D deficiency 03/13/2019 Migraine with aura and with status migrainosus, not intractable ([facility] [place] 05/27/2020 Mixed anxiety and depressive disorder 12/25/2019 [...] tube, bilateral Adjustment disorder with depressed mood ([facility] [place] 12/11/2019 Allergic rhinitis unspecified seasonality, unspecified trigger [...] nursing note reviewed. Exam conducted with a eligibility counselor present. Vitals: Estimated body mass index is 38.59 kg/m as calculated from the following: Height as of 08/02/23: 5' 4 . Weight as of this encounter: 224 lb 12.8 oz. BP: 120/70 No LMP recorded. Patient is . ASSESSMENT & PLAN ICD-10-CM 1. 24 weeks gestation of Z3A.24 POCT urinalysis dipstick manually resulted CANCELED: POCT urinalysis dipstick manually resulted 2. Diabetes mellitus screening Z13.1 CBC Glucose tolerance, 1 hour 3. UTI symptoms R39.9 nitrofurantoin, macrocrystal-monohydrate, (Macrobid) 100 MG capsule Patient presents today for a routine obstetrics appointment. Patient is currently 24w4d with a Estimated Date of Delivery: 04/29/24. Patient given orders for CBC and 1hr gtt. Patient to return to clinic in 4 weeks for routine OB appointment. Documented by Sera Parsons LPN on behalf of: Waldo Rojo DO documented in this encounter [facility] 12-14-2023 History of Presen t illness Narrative Reason for Appointment: Patient ID: Brynn Wallace is a 23 y.o. female who presents for Routine Visit, Well Women Visit, and STI Screening Patient presents today for Annual Exam. and Return OB appointment. MEDICATIONS Current Outpatient Medications Medication Instructions albuterol HFA 90 mcg/act inhaler 2 puffs, Inhalation, Every 4 hours PRN magnesium oxide (MAG-OX) 400 mg, Oral, Daily omeprazole (PRILOSEC) 20 mg, Oral, Daily before breakfast, Do not crush or chew. ondansetron ODT (ZOFRAN-ODT) 4 mg, Oral, Every 4 hours PRN ALLERGIES Allergies Allergen Reactions Buspirone Other Reaction(s): Increased anxiety/hallucinations Cholestatin Other Reaction(s): Unknown Lurasidone Other Reaction(s): restlessness Latuda Other Unknown PROBLEMS Active Ambulatory Problems Diagnosis Date Noted Attention deficit hyperactivity disorder (ADHD) ([facility]) 08/30/2022 Bipolar II disorder ([facility]) 08/30/2022 Acute non intractable tension-type headache 12/11/2019 Adjustment disorder with depressed mood ([facility]) 12/11/2019 Allergic rhinitis 11/23/2018 Amenorrhea 02/23/2021 Anxiety 03/23/2016 Attention deficit 03/04/2023 Chronic fatigue 03/04/2023 Chronic gastritis without bleeding 03/04/2023 Dysfunction of both eustachian tubes 12/07/2018 Dyspareunia due to medical condition in female 03/04/2023 Gastritis and duodenitis 06/03/2015 Grieving ([facility]) 03/04/2023 Infertility, female 03/04/2023 Menstrual cramps 07/04/2017 Pelvic congestion syndrome 03/04/2023 Slow transit constipation 04/11/2017 Vitamin D deficiency 03/13/2019 Migraine with aura and with status migrainosus, not intractable ([facility]) 05/27/2020 Mixed anxiety and depressive disorder 12/25/2019 [...] tube, bilateral Adjustment disorder with depressed mood ([facility]) 12/11/2019 Allergic rhinitis unspecified seasonality, unspecified trigger [...] Objective: Physical Exam Constitutional: Appearance: Normal appearance. Genitourinary: Right Adnexa: not tender and no mass present. Left Adnexa: not tender and no mass present. No cervical discharge. Breasts: Breasts are soft. Right: Normal. Left: Normal. HENT: Head: Normocephalic. Nose: Nose normal. Mouth/Throat: Mouth: Mucous membranes are moist. Cardiovascular: Rate and Rhythm: Normal rate. Pulmonary: Effort: Pulmonary effort is normal. Abdominal: General: Bowel sounds are normal. Palpations: Abdomen is soft. Musculoskeletal: General: Normal range of motion. Cervical back: Normal range of motion. Neurological: General: No focal deficit present. Mental Status: She is alert. Skin: General: Skin is warm and dry. Psychiatric: Mood and Affect: Mood normal. Vitals and nursing note reviewed. Exam conducted with a eligibility counselor present. Vitals: Estimated body mass index is 37.61 kg/m as calculated from the following: Height as of 08/01/24: 5' 4 . Weight as of this encounter: 219 lb 1.9 oz. BP: 102/62 No LMP recorded. Patient is . ASSESSMENT & PLAN ICD-10-CM 1. 20 weeks gestation of Z3A.20 Pap Smear POCT urinalysis dipstick manually resulted Alpha fetoprotein, maternal Alpha fetoprotein, maternal 2. Well woman exam with routine gynecological exam Z01.419 Pap Smear 3. Screening, , for anatomic survey Z36.89 US OB ANATOMY SINGLE W US OB CERVICAL LENGTH 4. STD exposure Z20.2 CHLAMYDIA TRACHOMATIS (GENITO/STI) Neisseria gonorrhea DNA probe, direct 5. Vaginal discharge N89.8 SURESWAB(R) ADVANCED VAGINITIS PLUS, TMA 6. Nausea/vomiting in O21.9 ondansetron ODT (Zofran-ODT) 4 MG disintegrating tablet 7. Gastroesophageal reflux in O99.619 omeprazole (PriLOSEC) [address] capsule K21.9 8. Nonintractable headache, unspecified chronicity pattern, unspecified headache type R51.9 magnesium oxide (Mag-Ox) 400 MG tablet Return OB/Annual Exam: Patient presents today for an annual exam/routine obstetrics appointment. Patient is currently 20w3d . Patient is doing well and states she has no complaints. Pap/cultures was obtained without difficulty and patient was given msAFP order to have obtained. Orders Placed This Encounter Procedures US OB ANATOMY SINGLE W US OB CERVICAL LENGTH Alpha fetoprotein, maternal CHLAMYDIA TRACHOMATIS (GENITO/STI) Neisseria gonorrhea DNA probe, direct POCT urinalysis dipstick manually resulted Follow Up: Patient is to return to our office in 4 weeks for routine OB appointment Documented by MARQUISE Scott on behalf of: MARQUISE Scott documented in this encounter [facility] 01-10-2023 Note Patient Education Ma terials Follows:Disease [...] these instructions at home: Medicines ? Take [id number] and prescription medicines only as told by [...] and water are not available, use hand schedule maker. Contact a health care provider if: ? [...] can cause a sore throat. ? Take [id number] medicines only as told by your health [...] provider. Document Revised: 07/08/2021 Document Reviewed: 07/08/2021 [employer] Patient Education ? 2022 [employer]. Viral Illness, Adult Viruses are tiny germs [...] is (more content not included)... [facility] Evaluation note Diagnosis Second trimester state, incidental 28 weeks gestation of Heartburn during in third trimester Skin yeast infection Candidiasis of skin and nails Excessive growth affecting management of , antepartum, single or unspecified fetus [facility] Diagnosis Third trimester state, incidental 30 weeks gestation of [facility] Diagnosis 32 weeks gestation of Third trimester state, incidental Gastroesophageal reflux in Nausea/vomiting in Unspecified vomiting of , unspecified as to episode of care Hematuria, unspecified type [facility] Diagnosis Dyspepsia- Primary Dyspepsia and other specified disorders of function of stomach Third trimester state, incidental 35 weeks gestation of [facility] Diagnosis Third trimester state, incidental 36 weeks gestation of Upper respiratory tract infection, unspecified type Heartburn during in third trimester [facility] Diagnosis 20 weeks gestation of Well woman exam with routine gynecological exam Routine gynecological examination Screening, , for anatomic survey Encounter for anatomic survey STD exposure Vaginal discharge Leukorrhea, not specified as infective Nausea/vomiting in Unspecified vomiting of , unspecified as to episode of care Gastroesophageal reflux in Nonintractable headache, unspecified chronicity pattern, unspecified headache type Constipation, unspecified constipation type [facility] Diagnosis 37 weeks gestation of Third trimester state, incidental Excessive growth affecting management of in third trimester, single or unspecified fetus [facility] Diagnosis 24 weeks gestation of Diabetes mellitus screening Screening for diabetes mellitus UTI symptoms documented in this encounter [facility] Summary [...] DATE CREATED AUTHOR AUTHOR'S ORGANIZ ATION 06/23/2022 [facility] dical Specialist DATE CREATED AUTHOR AUTHOR'S ORGANIZ ATION 10/13/2023 [facility] DATE CREATED AUTHOR AUTHOR'S ORGANIZ ATION 04/07/2024 [facility] dical Specialists EPIC Care Teams (unrecognized sec tion and content) Retail Loan Originator Relationship Specialty Start Date End Date Jeannie Reynolds MD [address] [place] [address] PCP - General Family Medicine 09/21/22 Sarah Nelson NP [address] [place] [address] Nurse Practitioner Family Medicine 09/21/22 Retail [employer] Originator Relationship Specialty Start Date End Date Jeannie Reynolds MD [address] [place] [address] PCP - General Family Medicine 09/21/22 Sarah Nelson BODY MAN [address] [place] [address] Nurse Practitioner Family Medicine 09/21/22 Retail Loan Originator Relationship Specialty Start Date End Date Jeannie Reynolds MD [address] [place] [address] PCP - General Family Medicine 09/21/22 Sarah Nelson NP [address] [place] [address] Nurse Practitioner Family Medicine 09/21/22 Retail Loan Originator Relationship Specialty Start Date End Date Jeannie Reynolds MD [address] [place] [address] PCP - General Family Medicine 09/21/22 Anila Schneider [employer] TECHNICIAN [address] [address] PCP - [employer] 08/23/22 Sarah Nelson NP [address] [place] [address] Nurse Practitioner Family Medicine 09/21/22 Retail Loan Originator Relationship Specialty Start Date End Date Jeannie Reynolds MD [address] [place] [address] PCP - General Family Medicine 09/21/22 Anila Schneider, [employer] TECHNICIAN [address] [address] PCP - [employer] 08/23/22 Sarah Nelson, BODY MAN [address] [place] [address] Nurse Practitioner Family Medicine 09/21/22 Retail Loan Originator Relationship Specialty Start Date End Date Jeannie Reynolds MD [address] [place] [address] PCP - General Family Medicine 09/21/22 Anila Schneider, [employer] TECHNICIAN [address] [address] PCP - [employer] 08/23/22 Sarah Nelson BODY MAN [address] [place] [address] Nurse Practitioner Family Medicine 09/21/22 Retail Loan Originator Relationship Specialty Start Date End Date Jeannie Reynolds MD [address] [place] [address] PCP - General Family Medicine 09/21/22 Anila Schneider, [employer] TECHNICIAN [address] [address] PCP - [employer] 08/23/22 Sarah Nelson, BODY MAN [address] [place] [address] Nurse Practitioner Family Medicine 09/21/22 Retail Loan Originator Relationship Specialty Start Date End Date Jeannie Reynolds MD [address] [place] [address] PCP - General Family Medicine 09/21/22 Anila Schneider [employer] TECHNICIAN [address] [place] [address] PCP - [employer] 08/23/22 Sarah Nelson BODY MAN [address] [place] [address] Nurse Practitioner Family Medicine 09/21/22 Retail Loan Originator Relationship Specialty Start Date End Date Jeannie Reynolds MD [address] [place] [address] PCP - General Family Medicine 09/21/22 Anila Schneider, [employer] TECHNICIAN [address] [facility] [address] [place] [address] PCP - [employer] 08/23/22 Sarah Nelson, BODY MAN [address] [place] [address] Nurse Practitioner Family Medicine 09/21/22 Retail Loan Originator Relationship Specialty Start Date End Date Jeannie Reynolds MD [address] [place] [address] PCP - General Family Medicine 09/21/22 Anila Schneider, [employer] TECHNICIAN [address] [facility] [address] [place] [address] PCP - [employer] 08/23/22 Sarah Nelson, BODY MAN [address] [place] [address] Nurse Practitioner Family Medicine 09/21/22 Retail Loan Originator Relationship Specialty Start Date End Date Jeannie Reynolds MD [address] [place] [address] PCP - General Family Medicine 09/21/22 Anila Schneider, [employer] TECHNICIAN [address] [facility] [address] [place] [address] PCP - [employer] 08/23/22 Sarah Nelson, BODY MAN [address] [place] [address] Nurse Practitioner Family Medicine 09/21/22 Retail Loan Originator Relationship Specialty Start Date End Date Jeannie Reynolds MD [address] [place] [address] PCP - General Family Medicine 09/21/22 Anila Schneider, [employer] [address] [facility] [address] [place] [address] PCP - [employer] 08/23/22 Sarah Nelson, BODY MAN [address] [place] [address] Nurse Practitioner Family Medicine 09/21/22 Retail Loan Originator Relationship Specialty Start Date End Date Jeannie Reynolds MD [address] [place] [address] PCP - General Family Medicine 09/21/22 Anila Schneider, [employer] TECHNICIAN [address] [address] PCP - [employer] 08/23/22 Sarah Nelson BODY MAN [address] [place] [address] Nurse Practitioner Family Medicine 09/21/22 Retail Loan Originator Relationship Specialty Start Date End Date Jeannie Reynolds MD [address] [place] [address] PCP - General Family Medicine 09/21/22 Anila Schneider, [employer] TECHNICIAN [address] [address] PCP - [employer] 08/23/22 Sarah Nelson NP [address] [place] [address] Nurse Practitioner Family Medicine 09/21/22 Retail Loan Originator Relationship Specialty Start Date End Date Jeannie Reynolds MD [address] [place] [address] PCP - General Family Medicine 09/21/22 Anila Schneider, [employer] TECHNICIAN [address] [facility] [address] [place] [address] PCP - [employer] 08/23/22 Sarah Nelson NP [address] [place] [address] Nurse Practitioner Family Medicine 09/21/22 Retail Loan Originator Relationship Specialty Start Date End Date Jeannie Reynolds MD [address] [place] [address] PCP - General Family Medicine 09/21/22 Anila Schneider, [employer] TECHNICIAN [address] [place] [address] PCP - [employer] 08/23/22 Sarah Nelson BODY MAN [address] [place] [address] Nurse Practitioner Family Medicine 09/21/22 Retail Loan Originator Relationship Specialty Start Date End Date Jeannie Reynolds MD [address] [place] [address] PCP - General Family Medicine 09/21/22 Sarah Nelson NP [address] [facility] [place] [address] Nurse Practitioner Family Medicine 09/21/22 Retail Loan Originator Relationship Specialty Start Date End Date Jeannie Reynolds MD [address] [facility] [place] [address] PCP - General Family Medicine 09/21/22 Sarah Nelson NP [address] [facility] [place], [place] [address] Nurse Practitioner Family Medicine 09/21/22 Reason for Visit (unrecogniz ed section and content) Reason Comments Routine Visit Reason Comments Well Women Visit Reason Comments Routine Visit Well Women Visit STI Screening FOR RECORDS PERTAINING TO PATIENTS WHO ARE [...] BE BASED ON THE PRIMARY CLINICAL RECORDS. [employer] [facility] provides no warranty or guarantee of the accuracy or completeness of information in this document.
== END 2024-04-13 18:47 | disposition home or self-care (01) ==
LOC: US 18:47
PROVIDERS: PCP Family Medicine; Visit Provider Physician Assistant
DX: O36.63X0 Maternal care for excessive fetal growth, third trimester, not applicable or unspecified (principal); Z3A.37 37 weeks gestation of pregnancy
CPT/HCPCS: 76816

== ENCOUNTER 2024-04-26 03:38 | Outpatient (OUT) | payer BC, OTHER, SELFPAY ==
--- OUTSIDE RECORDS SUMMARY | 2024-04-26 03:42 | XMS_ITS | CCD ---
Author Organization [facility] CliniSyct Care Team Providers Care Rag Cutting Machine Tender Name Role Phone REY, DR BRANDON Mock Consulting Unavailable REY, DR BRANDON Mock Attending Unavailable DOE, DR MEEKS Primary Care Unavailable REY, DR BRANDON Mock Admitting Unavailable MAKENNA RUSHING Consulting Unavailable Odalis Briceno Consulting Unavailable Doe, Leah Lora Primary Care Unavailable ALIA, SHAW R Admitting Unavailable Doe, Leah Geno Primary Care Unavailable ALIA, SHAW R Attending Unavailable Doe, Leah Lora Primary Care Unavailable MARQUISE Calvillo Admitting Unavailable MARQUISE Calvillo Attending Unavailable ALIA, SHAW R Attending Unavailable Doe, Leah Lora Primary Care Unavailable ALIA, SHAW R Admitting Unavailable Doe, Leah Geno Primary Care Unavailable ALIA, SHAW R Admitting Unavailable ALIA, SHAW R Attending Unavailable Doe, Leah Lora Primary Care Unavailable Doe, Leah Lora Primary Care Unavailable ALIA, SHAW R Admitting Unavailable ALIA, SHAW R Attending Unavailable Yue Reynolds MDfer Primary Care Provider Sarah Nelson NP Unavailable Jennie YIELD IMPROVEMENT ENGINEER-ELECTRICAL ENGINEERING TECHNOLOGISTAnila Unavailable SARAH NELSON Attending Unavailab le ALIA, SHAW Attending Unavailable WENDY, YARITZA Attending Unavailable ALIA, SHAW Attending Unavailable WENDY, YARITZA Attending Unavailable WENDY, YARITZA Attending Unavailable ALIA, SHAW Attending Unavailable WENDY, YARITZA Attending Unavailable ALIA, SHAW Attending Unavailable WENDY, YARITZA Attending Unavailable ALIA, SHAW Attending Unavailable Allergies Allergy Classification Reported Allergen(s) Allergy Type Date of Onset Reaction(s) Facility (1 source) No Known Medication Allergies; Translations: [No Known Medication Allergies] Propensity to adverse reactions to drug (disorder) [facility] Repository (20 sources) beta Sitosterol / ZINC CITRATE Drug Allergy 3 [facility] (20 sources) busPIRone Drug Allergy 3 [facility] (20 sources) lurasidone Drug Allergy 3 [facility] (20 sources) Other Propensity to adverse reactions 1 Unknown [facility] Healthcare Work Phone: Medications Current Medications Medication Drug Class(es) Dates Sig (Normalized) Sig (Original) [id number] 200 actuat albuterol 0.09 mg/actuat metered dose [...] as needed for nausea.. 90 tablet 03/26/2024 04/19/2024 Discontinued Start: 10-25-2023 End: 12-14-2023 metoclopramide (Reglan) 10 [...] omeprazole 20 mg delayed release oral capsule (20 sources) Proton Pump Inhibitor Start: 12-14-2023 End: [...] pantoprazole 40 mg delayed release oral tablet (16 sources) Proton Pump Inhibitor Start: 03-08-2024 End: 03-08-2025 take 1 tablet by mouth before mealtime pantoprazole (Protonix) 40 MG EC tablet Indications: Gastroesophageal reflux in Take 1 tablet (40 mg) by mouth in the morning. Take before meals. Do not crush, chew, or split.. 30 tablet 11 03/08/2024 04/19/2024 Discontinued polyethylene glycol 3350 07955 mg powder for oral solution (4 sources) [...] third trimester] 02-07-2024 Episodic Other complications of (6 sources) Excessive growth affecting management of mother; [...] 03-04-2023 Chronic Other and delivery including normal (14 sources) Second trimester ; Translations: [Encounter for [...] [24 weeks gestation of ] 01-12-2024 Episodic Residual codes; unclassified (2 sources) Gestation period, 38 weeks; Translations: [38 weeks gestation of ] 04-19-2024 Episodic Substance-related disorders (1 source) Nicotine dependence, [...] Range Facility Urinalysis macro (dipstick) panel (U)on 04-19-2024 Bilirubin, UA Negative Negative - 4(70) +++ mg/dL [facility] Blood, UA Positive Negative - 50 Joey/mcL [facility] Clarity, UA Clear [facility] Color, UA Yellow [facility] Glucose, UA Negative Negative - 2000(110) ++++ mg/dL [facility] Interpretation and review of laboratory results Abnormal [facility] Ketones, UA Negative Negative - 160(16) ++++ mg/dL [facility] Leukocytes, UA Negative Negative - 500+++ Quyen/mcL [facility] Nitrite, UA Negative Negative - Positive [facility] pH, UA 6.5 5 - 9 [facility] Protein, UA Negative Negative - 2000(20) ++++ mg/dL [facility] Spec Grav, UA 1.025 1 - 1.03 [facility] Urobilinogen, UA 0.2 0.2 - 12 mg/dL [facility] Urinalysis macro (dipstick) panel (U)on 04-11-2024 Bilirubin, UA Positive Negative - 4(70) +++ mg/dL [facility] Comment on above: small Blood, UA Negative Negative - 50 Joey/mcL [facility] Clarity, UA Clear [facility] Color, UA Yellow [facility] Glucose, UA Negative Negative - 2000(110) ++++ mg/dL [facility] Interpretation and review of laboratory results Abnormal [facility] Ketones, UA Positive Negative - 160(16) ++++ mg/dL [facility] Comment on above: trace Leukocytes, UA Negative Negative - 500+++ Quyen/mcL [facility] Nitrite, UA Negative Negative - Positive [facility] pH, UA 6 5 - 9 [facility] Protein, UA Negative Negative - 1999(20) ++++ mg/dL [facility] Spec Grav, UA 1.025 1 - 1.03 [facility] Urobilinogen, UA 0.2 0.2 - 12 mg/dL [facility] ALL MISCELLANEOUS TESTon MISCELLANEOUS TEST COMMENT . [facility] Comment on above: Test Ordered: [id number] Strep Gp B HERBER+Rflx Strep Gp B HERBER+Rflx Negative CB Reference Range: Negative Centers for Disease Control and Prevention (CDC) and [place] [employer] Gynec[employer] (ACOG) guidelines [...] resistance to clindamycin is noted. Performed at: [facility] [id number] [employer] Refrigeration: Dc Mtz PhD, Phone: [phone] VAG/REC [id number] Group B Streptococcus Colonization Detection, HERBER With Refle [facility] Urinalysis macro (dipstick) panel (U)on 04-04-2024 Bilirubin, UA Negative Negative - 4(70) +++ mg/dL [facility] Blood, UA Negative Negative - 50 Joey/mcL [facility] Clarity, UA Clear [facility] Color, UA Yellow [facility] Glucose, UA Negative Negative - 1999(110) ++++ mg/dL [facility] Interpretation and review of laboratory results Normal [facility] Ketones, UA Negative Negative - 160(16) ++++ mg/dL [facility] Leukocytes, UA Negative Negative - 500+++ Quyen/mcL [facility] Nitrite, UA Negative Negative - Positive [facility] pH, UA 5.5 5 - 9 [facility] Protein, UA Negative Negative - 1999(20) ++++ mg/dL [facility] Spec Grav, UA 1.02 1 - 1.03 [facility] Urobilinogen, UA 1.0 0.2 - 12 mg/dL [facility] Urinalysis macro (dipstick) panel (U)on 03-26-2024 Bilirubin, UA Negative Negative - 4(70) +++ mg/dL [facility] Blood, UA Negative Negative - 50 Joey/mcL [facility] Clarity, UA Clear [facility] Color, UA Yellow [facility] Glucose, UA Negative Negative - 1999(110) ++++ mg/dL [facility] Interpretation and review of laboratory results Abnormal [facility] Ketones, UA Negative Negative - 160(16) ++++ mg/dL [facility] Leukocytes, UA Negative Negative - 500+++ Quyen/mcL [facility] Nitrite, UA Negative Negative - Positive [facility] pH, UA 5.5 5 - 9 [facility] Protein, UA Negative Negative - 1999(20) ++++ mg/dL [facility] Spec Grav, UA 1.202 1 - 1.03 [facility] Urobilinogen, UA 1.0 0.2 - 12 mg/dL [facility] TBH UA (CLEAN/CATCH) ELECTRICAL ENGINEERING TECHNOLOGIST/CESILIA RO IF IND.on 03-15-2024 BILIRUBIN URINE Negative NEGATIVE [facility] BLOOD URINE SMALL Abnormal NEGATIVE [facility] Clarity (U) CLEAR CLEAR [facility] Color (U) YELLOW YELLOW [facility] GLUCOSE URINE UA Negative NEGATIVE mg/dL [facility] Interpretation and review of laboratory results Abnormal [facility] Ketones Ql (U) TRACE Abnormal NEGATIVE mg/dL [facility] Leukocyte esterase Test strip Ql (U) SMALL Abnormal NEGATIVE [facility] NITRITE URINE Negative NEGATIVE [facility] pH (U) 6.0 [pH] 5.0 - 9.0 [facility] PROTEIN URINE TRACE NEG/TRACE mg/dL [facility] SPECIFIC GRAVITY URINE 1.025 1.005 - 1.025 [facility] URINE MICROSCOPIC INDICATED YES [facility] UROBILINOGEN URINE 1.0 EU/dL 0.2 - 1.0 EU/dL [facility] Urinalysis macro (dipstick) panel (U)on 03-08-2024 Bilirubin, UA Negative Negative - 4(70) +++ mg/dL [facility] Blood, UA Positive Negative - 50 Joey/mcL [facility] Comment on above: trace-intact Clarity, UA Clear [facility] Color, UA Yellow [facility] Glucose, UA Negative Negative - 1999(110) ++++ mg/dL [facility] Interpretation and review of laboratory results Abnormal [facility] Ketones, UA Negative Negative - 160(16) ++++ mg/dL [facility] Leukocytes, UA Negative Negative - 500+++ Quyen/mcL [facility] Nitrite, UA Negative Negative - Positive [facility] pH, UA 7.5 5 - 9 [facility] Protein, UA Negative Negative - 1999(20) ++++ mg/dL [facility] Spec Grav, UA 1.02 1 - 1.03 [facility] Urobilinogen, UA 0.2 0.2 - 12 mg/dL [facility] Urinalysis macro (dipstick) panel (U)on 02-23-2024 Bilirubin, UA Negative Negative - 4(70) +++ mg/dL [facility] Blood, UA Negative Negative - 50 Joey/mcL [facility] Clarity, UA Clear [facility] Color, UA Yellow [facility] Glucose, UA Negative Negative - 1999(110) ++++ mg/dL [facility] Interpretation and review of laboratory results Abnormal [facility] Ketones, UA Positive Negative - 160(16) ++++ mg/dL [facility] Comment on above: 15 mg Leukocytes, UA Trace Negative - 500+++ Quyen/mcL [facility] Nitrite, UA Negative Negative - Positive [facility] pH, UA 6.5 5 - 9 [facility] Protein, UA Trace Negative - 1999(20) ++++ mg/dL [facility] Spec Grav, UA 1.03 1 - 1.03 [facility] Urobilinogen, UA 1.0 0.2 - 12 mg/dL [facility] Urinalysis macro (dipstick) panel (U)on 02-07-2024 Bilirubin, UA Negative Negative - 4(70) +++ mg/dL [facility] Blood, UA Negative Negative - 50 Joey/mcL [facility] Clarity, UA Clear [facility] Color, UA Yellow [facility] Glucose, UA Negative Negative - 1999(110) ++++ mg/dL [facility] Interpretation and review of laboratory results Normal [facility] Ketones, UA Negative Negative - 160(16) ++++ mg/dL [facility] Leukocytes, UA Negative Negative - 500+++ Quyen/mcL [facility] Nitrite, UA Negative Negative - Positive [facility] pH, UA 7 5 - 9 [facility] Protein, UA Negative Negative - 2000(20) ++++ mg/dL [facility] Spec Grav, UA 1.02 1 - 1.03 [facility] Urobilinogen, UA 0.2 0.2 - 12 mg/dL [facility] GLUCOSE 1 HOURon 02-06-2024 Glucose [Mass/Vol] 136 mg/dL High NINF - 13 0 mg/dL [facility] Interpretation and review of laboratory results Abnormal [facility] Urinalysis macro (dipstick) panel (U)on 01-12-2024 Bilirubin, UA Negative Negative - 4(70) +++ mg/dL [facility] Blood, UA Negative Negative - 50 Joey/mcL [facility] Clarity, UA Clear [facility] Color, UA Yellow [facility] Glucose, UA Negative Negative - 1999(110) ++++ mg/dL [facility] Interpretation and review of laboratory results Abnormal [facility] Ketones, UA Negative Negative - 160(16) ++++ mg/dL [facility] Leukocytes, UA Positive Negative - 500+++ Quyen/mcL [facility] Comment on above: small Nitrite, UA Negative Negative - Positive [facility] pH, UA 7.0 5 - 9 [facility] Protein, UA Positive Negative - 2000(20) ++++ mg/dL [facility] Comment on above: 30 Spec Grav, UA 1.025 1 - 1.03 [facility] Urobilinogen, UA 1.0 0.2 - 12 mg/dL [facility] AFP, SERUM, OPEN SPINA BIFID Aon 12-19-2023 AFP MOM 0.78 . [facility] AFP VALUE 38.1 ng/mL . [facility] COMMENT: Comment . [facility] Comment on above: Nereyda Laguna , Ph.D., [facility] Director References: Available Upon Request. Multiples Of Median Cutoffs For AFP Elevations Garcia 2.5 Black 2.8 IDD 2.0 Twins 4.5 Abbreviation Definitions IDD - Insulin Dep Diabetes OSBR - Open Spina Bifida Risk For further inquiries contact [facility] at [phone]. This test was developed and its performance characteristics determined by [employer]. It has not been cleared or approved by the Food and Drug Administration. Performed at: [facility] [address] [place], [place] [id number] [employer] Refrigeration: Ezra Leo [facility], Phone: [phone] GEST. AGE ON COLLECTION DATE 20.4 . weeks [facility] GESTAT. AGE BASED ON Ultrasound . [facility] Comment on above: 20.4 on 12/14/2023 Recalculations are not recommended when gestational dating by LMP and ultrasound are within 10 days. INSULIN DEP DIABETES No . [facility] INTERPRETATION Comment . [facility] Comment on above: Interpretation: Scre en Negative [...] Customer Services to discuss available options. The [place] [employer] recommends amniocentesis be offered to women age 35 and older. [age] [facility] MULTIPLE GESTATION No . [facility] OSBR RISK 1 [place] [id number] . [facility] RACE . [facility] RESULTS Report . [facility] TEST RESULTS: Negative . [facility] WEIGHT 219 . lbs [facility] N N ULTRASOUND [id number] 3 20 N 1 Y 219 N N N N N White/ [facility] URETHRITIS/DISCHARGE PLUS VA GINITIS (HTRX)on 12-16-2023 ATOPOBIUM VAGINAE 21.553 Abnormal [facility] ATOPOBIUM VAGINAE Detected Abnormal [facility] BVAB 2,3 (BACTERIAL VAGINOSIS ASSOCIATED BACTERIA 2, 3); MOBILUNCUS SPP 18.812 Abnormal [facility] BVAB 2,3 (BACTERIAL VAGINOSIS ASSOCIATED BACTERIA 2, 3); MOBILUNCUS SPP Detected Abnormal [facility] CLIFFORD ALBICANS, PARAPSILOSIS, TROPICALIS 0.000 [facility] CLIFFORD ALBICANS, PARAPSILOSIS, TROPICALIS Not detected [facility] CLIFFORD GLABRATA 0.000 [facility] CLIFFORD GLABRATA Not detected [facility] CLIFFORD KRUSEI 0.000 [facility] CLIFFORD KRUSEI Not detected [facility] CHLAMYDIA TRACHOMATIS 0.000 [facility] CHLAMYDIA TRACHOMATIS Not detected N [facility] ERMB, C; MEFA 18.831 Abnormal [facility] ERMB, C; MEFA Detected Abnormal [facility] GARDNERELLA VAGINALIS 24.[address] [facility] GARDNERELLA VAGINALIS Detected Abnormal [facility] Interpretation and review of laboratory results Abnormal [facility] MEGASPHAERA (TYPES 1, 2) 19.768 Abnormal [facility] MEGASPHAERA (TYPES 1, 2) Detected Abnormal [facility] MYCOPLASMA GENITALIUM 0.[address] [facility] MYCOPLASMA GENITALIUM Not detected N [facility] NEISSERIA GONORRHOEAE 0.[address] [facility] NEISSERIA GONORRHOEAE Not detected N [facility] TET B, TET M 26.704 Abnormal [facility] TET B, TET M Detected Abnormal [facility] TRICHOMONAS VAGINALIS 0.[address] [facility] TRICHOMONAS VAGINALIS Not detected N [facility] Cervical or vaginal smear or scraping studyon 12-14-2023 [facility] Urinalysis macro (dipstick) panel (U)on 12-14-2023 Bilirubin, UA Negative Negative - 4(70) +++ mg/dL [facility] Blood, UA Negative Negative - 50 Joey/mcL [facility] Clarity, UA Clear [facility] Color, UA Yellow [facility] Glucose, UA Negative Negative - 1999(110) ++++ mg/dL [facility] Interpretation and review of laboratory results Abnormal [facility] Ketones, UA Positive Negative - 160(16) ++++ mg/dL [facility] Comment on above: trace Leukocytes, UA Negative Negative - 500+++ Quyen/mcL [facility] Nitrite, UA Negative Negative - Positive [facility] pH, UA 6.5 5 - 9 [facility] Protein, UA Negative Negative - 1999(20) ++++ mg/dL [facility] Spec Grav, UA 1.010 1 - 1.03 [facility] Urobilinogen, UA 0.2 0.2 - 12 mg/dL [facility] Coding Summaryon 10-11-2023 Coding Summary HTMLBase 64 VtqhzaqoGFz3mRb+PGh lYWQ+PG7PQNFbA55wfC PiuO5rH9GOKReJJqfzV SCAHSfUYcRrxvIyYO4i aXNjZXJu IC8+XL0pUVWfUqtkvAI ss9E9yBU6E67gcb0rDW ewaEN8IVLdOdVjvjbmx 0ouyNc4FYhiZecoZlHc DGEtoH84VBF3zT69Cy0 0aINwnYWno9ukiRu3Mj LbTYZnPTH3jMtiUFgry 0ObDOYxZ37kgWUdf2Z7 IGNvbGxhcHNlOyBlbXB 5gZ3rTNisehoef7aofv lgQxh2oj63pNNhe3G4b WP2C6WprbH6LSOzdJQd HwxqmNEOxD5dgxbnz7t bcidpAaBeXNLhWWj2KG x9OZMacBmtBeXjYU31G WU3GKHylkGpG1CeRFLf tPnjGzK8p4X2Vs3PU8W QLggkK9TWIKOITHsxrX Q+EK13yk57D9ImCvuwZ ux1QVCoDHZ1mKQ5vY7a JLEdCCjhs5M9wBQ6V1K ugeAsnh0lv4ylIMExZX ioX12rvWZiq3D4KSZka MJ2TLXekEicBcUqpG51 Oyc+RNOdlGalu5FuVns be8jcs8rldNz2RbgrSA HrmkNljBugSKZ5f3PnD b7tBXGllFQ6wKL3qM8b UrPcOwY5QNukW804AgR upNCaOkgdC17gD6XubU A+UZClWsm2RSOglHdrD C7sO3JaNIDnovoufDBu pOnxGU9pQABuudyiZWL feZ7iVRWaG1i2BbGjHn N3IEqbF5JgWOQpazygJ m15dG6aLcPxFhW1GYgq S0YsopW2YUFsrKPyOJq vOZC1K30by8O7AJTfHC BwSJV3oPW7hE8fgJrzk jogbGVmdDsgdmVydGlj HRsoAFczH059EPRqoFg nPkNvZGluZyBEYXRlOi AgMDYvMTgvMjAyNDwvd GQ+KIGpDDX0fSguHUTo eOXrSIylYn0vnDrbpJr wAI3cLEAsaybiATIvpC 2gZAGiqPNkfLamNQ4aJ RCxywmoj294MhEuKYO5 QWBxmQLeU1SsoT9gBhF tMNBiAJMeL8LgwCDrVQ idT631EQsnGpG0MTKqx xPxO5JeXWPglNreAmA3 j5U3Cj6Gv4UdgvseJ4G iiUPrAbIhHaniOYg1D8 RkPjwvdHI+HP60CQKjU P40VIc4UKZ4fAusYVxs SJEpW2BwoB6vAfGqRCO kZGRkOyc+PHRhYmxlIH dpZHRoPScxMDAlJyBzd XpbEE3iWx8tJHCtVBPg nXdzvEKjXbDic0guUTN aJWbdKH8kvJztI7SwcL L1VRDbb1f0Fx55E88sI 3JvdXA+BHFgdIX1qZB7 rT4rZjIySjO7GUzbO55 9XlLucRIuKiotf6tjp8 qglRv6VdV1UFKuspIaw JgyIEL7c2IoZa64L90z IHdpZHRoPSIxNSUiIHZ rjPwmuj9dzB0mQp3+PG MpyFQ3tIQ8pP7rRfSzT vS8IFfqI617VjZnjDSe Gvdps1wys8xxtCg7NvL jGXEhwdWfjDeqJBV1z3 QtDm54W3UsxVmdk2AsI om7pm24hHHwz7Q0nGX2 B7EePLJkqvigfSNdeBt hLR0zUDNipezuQTSktD 6gSVXkZ8r7UvOeChW2F JuwX9YnjzT7XTHfnGId MUKvlZDWaA2igfeng2w hzqxyFlGbTWKuPHc9KY m4NSDxyCufRaWhCIY0Z rH6BMM4qJBiyE5ncHvp imcxoF7tAkv+JRI3aAK yeWITTC1iNhsovUB+PH OuGAE7mBnsATknDTJvg Q7qGWAxR0h3ZgBtNlQ9 BZdtL7UbuxP2TTMakWI rBXTadDZMjH7evqqnu9 payngeVsIbWGUsUHp2G Ag2PYJmkKioJiVbXDY1 BeT8OPV5vCEptO7zjBe pjulauS2eDyh+QmlydG ufMGV4KPh3S9AjUoi0H XFybNypXG8emCNmDBey Dr3mgEigwSlgRC4hYVZ tsnfzj687JfYnt1xuEL RmjUUaLWppLUP4C49fs 7T0GWRqVBEcYVZ2uID7 bW9bkZcdjawztPPriTn gdmVydGljYWwtYWxpZ2 61BXVshRagWjQcLZj8T 9OaCui6CNZcqGycCJ6i mYIzIBylLp2ylZvopCp sBC6cNJIeskpil276Pp Vwp2wwALFwjQPvKCwoV PX8Z99mn8J6SLPiNBFg NIP0rOW9yJ0nxThbtem gbGVmdDsgdmVydGljYW rnENpuT629TSCidKyuI sXqeFr6H8ZmEtb5PUAt lJcwDX3slYVzEXsnKs7 fgWafwPrkIZ8eQFIxhj lpy635HhQgm5rfZKIro USiRCgsDLE3W15qf2R8 SBIrYWAwYIU2cPI3tM6 hbGlnbjogbGVmdDsgdm CpnHgyVMdaVTcaP405O HRvcDsnPlBhdGllbnQg LThuCFq5K4WtBrvwySX +OP82AHGdDD74xULzoF Qva5rkbXq9EqXwFYToR WK0xXroRGqpn8RiZNUh D08rzFAzx7F6HWCcmWw tsXQlLkEooXB5wQ6rWH rwrcskv2ionofpPiofy 2uglq49bM91R07iLExn ZHRoPSIzMCUiIHZhbGl pkt3ifE3zIh3+PGNvbC Q9mJL0fI7kAOUjHiS4V QalA767UhVesLFtKspn x5qmy0ymkRl9CdF4ZUC pcgHiiYkvCHU3h8WiPz 52K00qSMsxKNTtCROhO ZFtRZIjvEwiin7awV6g Ii8+NOWugEF8mAY7eW2 lZyWwOwX8KFgfO016Ep UzsRErFpkiI62jX7Dod XA+XKXmKlb7UNDwgQpz DH0eeKFpNNitOd1wOFQ 8IlHlRsFbCLddY9HaZY SoxcoqjwkkfCT0BAEdX BHssH09Cm1dzFcoLLIr rPDDpY9gcvglp9bqgce hMtBwCIDuADg3FKg9SG KmgEvjJaAuLYR6PnP8U JR5xIHfpB3omAmustcc mU0kY7LaBBCipendZz7 6bF5rZcLnGyM6QDthAr c+QkFLRVIsIEFMRVhBT kRSQSBNSUNIRUxMRTwv dGQ+LYKgPUW6jQlrHZb cTZOjoR0kGEEaF8i8Ls OrVsN7KJjgE0HzYLOli ixyWu10qG2xOwPfClX6 XHysL8XxxpX4PRJkpSI bXQxaQJV3K05ja3H1EQ JqSJMuWTZ0oYB5xG6km GlnbjogbGVmdDsgdmVy mHzbEKxoZQbcG358HRW pfNqiBwSqOoW4YxJkAD A0G0StTkg9QCZtaSakF V0pyPJoSLogFq0wgKlf xLwxVA6eBUAedrbfJSC tjD9pDQLnuGTggFclOJ 1nSCXkktpnf550DcMmM AX2UTLivGMpB7IueS0d ZwUoDLTsQMHmE6WgxQS hRItgK567TXhcRaR5FU LrmuEnJ3RpHYLbcIvaU kN7k8J6Dp0bPoRMAKQi czwvdGQ+QMOcEOF7uPj wGAqeXWFuyM2kVKNqU9 f2RmCpWkL2OLgxC4ZcF LOfvvveBt05uI6cQmDm GjT8GOdbO8YxedM2CIW okIPtDPokMXU9Z69cd9 V1LJUoTLKwTEG6ePL2s W5byMoifxjzoCUobSma vnBqkRqgZCngYSydF75 6IHRvcDsnPkZFTUFMRT wvdGQ+HNNyKRW9vZvkL IvjOCToxX7wNYIeO0z7 XvUsKiM3CGyiT3IrRGO wxzkbQl05nE2eEbIqBh O4VHigV7TvuuK5EMRow CRiFEpvZNM4M06pn4L6 DUVyGHNaAYE6wKE8iM1 hbGlnbjogbGVmdDsgdm BlwWxwTPsyDBqmA954S NAxoOwdNp8XWK61VL54 H4NiDleftBGrvMA+PHR hYmxlIHdpZHRoPScxMD YkGyGquOibHK9dEr3nT GVyLWNvbGxhcHNlOiBj l8lhQVGuZCosIC0wlKa eC5FxxPX7AOMst3b4Wi 11E20rE4CjrST+PGNvb MY6wWK9aM8vWjGiIfP9 VZfaX313QaSkgDPfQdp qc3jye3rogAv3WoBsFI UiarHvvQxzYZH1b2JuE p42U20cVDxmMWLtCVHj ABMbWSHibXibdq0geD4 wIi8+OZLqgSA1uUG6yF 0rJaGlFiO9SCzqG932U cNliQWqAcszJ62fE7Sj dXA+QSMiEpm7GEXcmFx bOH3zkRSnOVpzCz6rKL U8NkBjQcGmTMgeH1ZcZ GTbqobirqwqpBF7LARz ZBHclM39Kw8spPoqTz2 mLOUwFSS6OGBteMErF0 VhmK5zTgCjVZFwHOTwB 3VokSOdRXpdL277GXsq RgO2XXEolfYmV1TeGPQ joWhzZvW8z7X1Rj4NjV vuvTLpYJ3pAbAaZPd7M 2DfCnf8ZFFntCtgKW0n eAIwQUkwJp8raAqquHu gTQ4eSAJlcurar062Ts Vcn5ypFOLocQHeIOosR ON6P99yt4U9TRHgVVDq SJY5mGX6oK8fqVuhyuv gbGVmdDsgdmVydGljYW spSIjqN414YUYigGnnZ zYDQzx3D4GaQrk9AAMd mJwaMU1nsFSuETuuIt7 coYrjpQamVG1oEHZugb itc622DvPmj7tdMCQrd JAqMGcxPLK6J11ue6S2 LEXoBVAyBAL0nYC1uP7 hbGlnbjogbGVmdDsgdm OoyOrbOSizCWmbQ336K VTlkIgfQa6SGln5D0Sv Kmr5MYWfcOqrZS2mzTS yFIxpMs3fjVpgsTudTP 6tHWRmawnfj246OyRzv 1fnMXSsgSDrKLwsHRV5 K15fz9U1GOZySIQcFWD 8cGQ5iQ5adVaplcnohB VmdDsgdmVydGljYWwtY QkfS476QHQmmHwrFiOt eWVyOjwvdGQ+KJ43lm1 [id number] V8cSL2lB1uDTOtQVjlm 3L0eCP0U8QkkxPzbr2l b2x (more content not included)... Normal [facility] C Urineon 10-08-2023 C Urine 45,000 [...] <=0.5/9.5 Verified Vanc S 2 Verified Normal [facility] Comment on above: Performed By: #### 6 [id number], [id number], [id number] #### [facility] (DEFAULT) [address] [place] [address]372 HBsAg Screen on 10-07-2023 HBsAg Screen LC Negative Invalid Interpretation Code Negative [facility] Comment on above: Result Comment: Perf ormed At: [address] [id number] Bibi Irwin PhD Ph:[phone] Performed By: #### 3 [id number] #### [facility] (DEFAULT) [address] [place] [address] 11604 HCV Antibody [facility] 10-07-2023 Hep C Virus Ab LC Non-Reactive Invalid Interpretation Code Non Reactive [facility] Comment on above: Result Comment: HCV antibody alone does not differentiate between previously resolved infection and active infection. Equivocal and Reactive HCV antibody results should be followed up with an HCV RNA test to support the diagnosis of active HCV infection. Performed At: [facility] [id number] Bibi Irwin PhD Ph:[phone] Performed By: #### 3 [id number] #### [facility] (DEFAULT) [address] [place] [address] 25691 HIV 4th Gen Screen w Reflex LCon 10-07-2023 HIV Scr 4th Gen LC Non-Reactive Invalid Interpretation Code Non Reactive [facility] Comment on above: Result Comment: HIV Negative HIV-1/HIV-2 antibodies and HIV-1 p24 antigen were NOT detected. There is no laboratory evidence of HIV infection. Performed At: [address] [id number] Bibi Irwin PhD Ph:[phone] Performed By: #### 1 [id number] #### [facility] (DEFAULT) [address] [place] [address] RPR, Rfx Qn RPR/Confirm TP L Con 10-07-2023 RPR LC Non-Reactive Invalid Interpretation Code Non Reactive [facility] Comment on above: Result Comment: Perf ormed At: [address] [id number] Bibi Irwin PhD Ph:[phone] Performed By: #### 3 [id number] #### [facility] (DEFAULT) [address] [place] [address] 15135 Rubella Antibodies, IgG LCon 10-07-2023 Rubella Antibodies, IgG LC 1.90 index Invalid Interpretation Code Immune >0.99 [facility] Comment on above: Result Comment: Non- immune <0.90 Equivocal 0.90 - 0.99 Immune >0.99 Performed At: [address] [id number] Bibi Irwin PhD Ph:[phone] Performed By: #### 3 [id number] #### [facility] (DEFAULT) [address] [place] [address] 63452 .Auto Diff 1on 10-06-2023 Auto Bland % 4 % Normal -12 [facility] Comment on above: Performed By: #### 1 [id number], 34222905, 2233741, 16249972, 1387919834, 0892378, 91187002, 30955788, 05316132, 77392790 #### [facility] (DEFAULT) [address] [place] [address] 74722 Baso Abs# 0.0 x10 Normal 0.0-0.2 [facility] Comment on above: Performed By: #### 1 [id number], 47994793, 0106897, 00282359, 7556889076, 1002883, 80925927, 10608272, 06298731, 99572212 #### [facility] (DEFAULT) [address] [place] [address] 56464 Basophils/100 WBC (Bld) 0.4 % Normal 0.2-2.0 [facility] Comment on above: Performed By: #### 1 [id number], 36616310, 1507144, 22962196, 5208855938, 7370601, 26079264, 71706186, 19900552, 27337746 #### [facility] (DEFAULT) [address] [place] [address] Eos Abs# 0.0 x10 Normal 0.0-0.4 [facility] Comment on above: Performed By: #### 1 [id number], 62143094, 7749999, 05170640, 4723542821, 4640261, 60641564, 09784892, 30948206, 11030414 #### [facility] (DEFAULT) [address] [place] [address] 87433 Eosinophils/100 WBC (Bld) 0.3 % Low 0.9-4.0 [facility] Comment on above: Performed By: #### 1 [id number], 89914241, 5191409, 92468594, 5850590593, 2792890, 64675332, 54342060, 38537991, 13734383 #### [facility] (DEFAULT) [address] [place] [address] 79788 Lymph Abs# 1.5 x10 Normal 1.3-2.9 [facility] Comment on above: Performed By: #### 1 [id number], 10431670, 7445987, 74978412, 8518207566, 6466963, 69411079, 48224223, 86158072, 30576004 #### [facility] (DEFAULT) [address] [place] [address] Lymphocytes/100 WBC (Bld) 13 % Low 14-48 [facility] Comment on above: Performed By: #### 1 [id number], 13456532, 6475182, 46736041, 8610007737, 1140906, 76100976, 60258139, 91949981, 60849321 #### [facility] (DEFAULT) [address] [place] [address] Bland Abs# 0.5 x10 Normal 0.0-0.8 [facility] Comment on above: Performed By: #### 1 [id number], 95676119, 2424583, 41079025, 5322787795, 1247230, 69013326, 47547750, 43909189, 82682007 #### [facility] (DEFAULT) [address] [place] [address] Neut Abs# 9.8 x10 High 1.5-9.2 [facility] Comment on above: Performed By: #### 1 [id number], 25865665, 6674677, 34759958, 0744466920, 1480625, 08536911, 97965384, 62024267, 80036976 #### [facility] (DEFAULT) [address] [place] [address] Neutrophils/100 WBC (Bld) 82 % Normal 44-88 [facility] Comment on above: Performed By: #### 1 [id number], 70644244, 2835117, 07564244, 1755008834, 1595241, 09635922, 09968457, 38617659, 04211551 #### [facility] (DEFAULT) [address] [place] [address] ABORhon 10-06-2023 ABO and Rh group Nom (Bld) Hx Check: Not Found Anti-A: 0 Anti-B: 0 Anti-D: 0 DCon: NT A1: 4+ B: 4+ ABORh Interp: O NEG Invalid Interpretation Code [facility] Comment on above: Performed By: #### 1 [id number], 87159358, 0221051, 45304303, 6644631350, 3391979, 80246761, 48965935, 89100331, 55605445 #### [facility] (DEFAULT) [address] [place] [address] ABORh Retypeon 10-06-2023 ABO and Rh group Nom (Bld) Ordered by Discern. Anti-A: 0 Anti-B: 0 Anti-D: 0 DCon: NT A1: 4+ B: 3+ ABORh Retype: O NEG Invalid Interpretation Code [facility] Comment on above: Performed By: #### 1 [id number], 48758755, 8385719, 71967066, 4968689693, 1702309, 58716969, 70337706, 12205195, 66811573 #### [facility] (DEFAULT) [address] [place] [address] ABSC Gelon 10-06-2023 ABSC Gel Negative Normal [facility] Comment on above: Performed By: #### 3 [id number] #### [facility] (DEFAULT) [address] [place] [address] CBC w/ Auto Diffon Erythrocyte distribution width (RBC) [Ratio] 13.3 % Normal 11.5-15.0 [facility] Comment on above: Performed By: #### 1 [id number], 97316184, 7645685, 99424551, 8465035665, 6952019, 99100707, 06670064, 22214629, 51041125 #### [facility] (DEFAULT) [address] [place] [address] Hematocrit (Bld) [Volume fraction] 41.2 % High 33.7-40.4 [facility] Comment on above: Performed By: #### 1 [id number], 95909492, 7847609, 73987587, 0101289410, 1873061, 71420494, 71652492, 45253390, 97305440 #### [facility] (DEFAULT) [address] [place] [address] 44662 Hemoglobin (Bld) [Mass/Vol] 13.6 g/dL Normal 11.3-15.9 [facility] Comment on above: Performed By: #### 1 [id number], 73018971, 2658556, 64088295, 5165912976, 6691339, 99148812, 80155674, 19089170, 71991086 #### [facility] (DEFAULT) [address] [place] [address] Man Diff? Auto Invalid Interpretation Code [facility] Comment on above: Performed By: #### 1 [id number], 58518339, 5421927, 81944221, 1037498198, 2812617, 50884652, 38063574, 49754114, 39893202 #### [facility] (DEFAULT) [address] [place] [address] MCH (RBC) [Entitic mass] 28 pg Normal 24-34 [facility] Comment on above: Performed By: #### 1 [id number], 55899871, 6351387, 24895428, 0744978254, 7497702, 39814511, 32366319, 46003073, 85899931 #### [facility] (DEFAULT) [address] [place] [address] 63095 MCHC (RBC) [Mass/Vol] 33 g/dL Normal 26-37 [facility] Comment on above: Performed By: #### 1 [id number], 36847869, 9620189, 69648774, 5248556537, 3732078, 39363820, 14838513, 94830466, 67817121 #### [facility] (DEFAULT) [address] [place] [address] 87253 MCV (RBC) [Entitic vol] 86 fL Normal 81-100 [facility] Comment on above: Performed By: #### 1 [id number], 04919830, 0545039, 34802307, 1883059843, 4412512, 89199731, 99901526, 32198631, 03771940 #### [facility] (DEFAULT) [address] [place] [address] 30878 Platelet 267 x10 Normal 138-427 [facility] Comment on above: Performed By: #### 1 [id number], 93975692, 7227510, 03965411, 2360770384, 1711919, 43463914, 09949399, 20358793, 69474935 #### [facility] (DEFAULT) [address] [place] [address] Platelet mean volume (Bld) [Entitic vol] 8.4 fL Normal 6.3-10.2 [facility] Comment on above: Performed By: #### 1 606014363, 41437380, 3344736, 90362474, 8207920215, 9885220, 98429409, 47400446, 60252631, 08793813 #### [facility] (DEFAULT) [address] [place] [address] RBC 4.79 x10 Normal 3.70-5.30 [facility] Comment on above: Performed By: #### 1 [id number], 81248046, 1211008, 10857050, 2353397284, 1511816, 55937891, 93831141, 74429069, 42487817 #### [facility] (DEFAULT) [address] [place] [address] WBC 11.8 x10 High 3.5-10.5 [facility] Comment on above: Performed By: #### 1 [id number], 06997973, 7369568, 49514111, 8836464901, 4269616, 55536401, 56770192, 86659706, 62078125 #### [facility] (DEFAULT) [address] [place] [address] HgbA1c Standardon 10-06-2023 .Hb 15.7 Invalid Interpretation Code [facility] Comment on above: Performed By: #### 1 310395746, 22109959, 7882217, 09070673, 2963984768, 5805372, 48125037, 13835477, 66837291, 88033497 #### [facility] (DEFAULT) [address] [place] [address] .Hgb A1c 0.45 g/dL Invalid Interpretation Code [facility] Comment on above: Performed By: #### 1 [id number], 36954839, 1871259, 49821843, 3912029603, 3041091, 60207162, 05724190, 86773836, 16434299 #### [facility] (DEFAULT) [address] [place] [address] Glucose [Mass/Vol] 88 mg/dL Invalid Interpretation Code [facility] Comment on above: Performed By: #### 1 [id number], 95690877, 0381514, 69078560, 2375754923, 7585450, 08551349, 31866760, 67699184, 96103856 #### [facility] (DEFAULT) [address] [place] [address] HbA1c (Bld) [Mass fraction] 4.7 % Normal 4.6-6.2 [facility] Comment on above: Performed By: #### 1 [id number], 83203943, 9607574, 49881056, 4314566302, 5590107, 83173820, 95375483, 93472500, 11726746 #### [facility] (DEFAULT) [address] [place] [address] Provider Orderson 10-06-2023 Provider Orders [id number] Normal [facility] Coding Summaryon 07-04-2023 Coding Summary HTMLBase 64 PmahcowaBXo5dAf+PGh lYWQ+LM2DGVQrF61zqV WzxJ5yW1JWLXvKLidsP YRWSCtUHbPrhpJfNV7i aXNjZXJu IC8+NO1gUSAbInqsqJU jg7E1xZB9E08jbh9uYW oowQZ3SUWvYySikvudz 4lysRi1DHvqVnagTuVb HNVtvI35GMA4yL36Od7 9rEQfvPUao3vbjSr7Lq UjTCDoJBW0eHzbTTpkc 1XtPRXeP70baSUxv0I4 IGNvbGxhcHNlOyBlbXB 8zV6zWGygqwvxd7fbqx ieFqd5dr85jXWff4C1n TO6H1FxclL8LXQnjRIh HftzzOTKcX0yjrpws4i kwvmhSvDpDTVnBDn1WR l7XZLxxFijNvZdAK54H ZP7TWIotnAkG8RrDOXp bBdfIeJ6b4W1Hs8DF0B WCvxhZ8WLDIGYYYyxwF Q+PI21ro33W8OkFttpI qd2LJMcXNM1uKQ1dH8p WABaLZnfq2B7vUJ8S9P ejrMkqt0rp3ueWGLzFU yhH80prKTjn1C1ICUwo SU1PYAhxMvySrSkxE38 Oyc+RXIclEkxn8UlMly au5bgw5mgyJz5KzapLG IdpiRoqHepDQK2g2PiG u8eGQCuqUS3rPL2cV5h QdKwJoF1MFzoD268QrW cjBYxBdwhD13rZ9WnsU A+WKIvFhr6FZRafYcwF I5gD9OmNAMobowjqSOw vGctUT6mXCYxhayaYUU xwS6yWFYeY9f9TtUzVr V0BFdkJ7JyTYQjtgfaN s17sL2kHiPdFiA4QJnv N3SexdG4CFHmjVMyIAy pKYQ6O78tm4R4BSAhMG McMWX1iSN8eY8bmEkpl jogbGVmdDsgdmVydGlj XViuZAfzX958ZLNtgVm nPkNvZGluZyBEYXRlOi AgMDMvMTEvMjAyNDwvd GQ+MANtJOI7iSvaKMDp zRBgHSmmTc7euMsuxWk lIC1dFCGjxovuVTPgnL 1iDGCdgAEuqGtuMD3qA ANelxcqf761PgUlNPX6 OSOpbELnX9IthY8bYqH hGCUuTTOpE3YhhJGxCS xjH916JIgaGhD0WXLay mPpU1NgGQKggTycBmG5 g8U1Pf9Wd2SsgnjyE6G tvHEsKpYjHbxpSIl7V9 RkPjwvdHI+ZU63EVKnN X34YYt5HYW3eToxTHld MECcX2RdwY9hTwZpKEP kZGRkOyc+PHRhYmxlIH dpZHRoPScxMDAlJyBzd SicQN4iWq8zKGFpMAJt eEqwwAOoRaHrt8lwRGN mLXunDH6qwIahM4TgfN O9DSYee1f9Jk67G26tT 3JvdXA+GQChsES3rPM1 iZ0iLzMrAhX6GXzrQ03 1LkRwqIVxLaglv4vfq9 swcDu5ReA0NMAmmsPna XslAVG4m7GyIy37U05w IHdpZHRoPSIxNSUiIHZ sjBrzln6dwX7cUm3+PG RcfLG3tOT7fX1nJpHjK aR9PHseF641SsPwvPJv Txndn9ndm1iayNh2HtH iTQNgdcMehYnyWOT7u4 TsNl54R5WruUqms2KvO pd8nm63hYIlh2Z6kAQ9 I0PdJHXxipiuqOCcxXb iUI8qFRRnyvfzMDAfhK 5bZTVoK0n0OyOwBbZ3D CbfV5MhfeQ1OUMuxJDw SVNzrOFDyV4arhrmr9z dpcteYpZhEBItNVj4TH b5VXLqgMmvIrXuNKX7C uU6XQA4sTGuhC0phJxw eukveE2hOsa+GPP5bWJ bzNPXRW1uGonjuVU+PH ClTGU5tOuuBQxnNSApo A4oYVWuL0t1MyZbSvE8 AKtwJ3NudtT1JPRhdJV lMUVxjCZUgW6xavltf8 rfuuclXjWxCCDgEUf5X Tm6ZEKwvGnvMfPlQET9 KiI1WZD3jPMejT2ylTv zpyvrtW0hUku+QmlydG zsSIQ7BGh2S3GfIln0F TEcjCttFZ6biUExBPuq Rf1oiNmvnKluEU9vWNN wzisqa275ObJti7uhAQ VqxRJsQVptEFN5A62sd 1H7MRLhIVYmQHA1jMH0 kC3ugFpyhtsiuCIavAm gdmVydGljYWwtYWxpZ2 81QFOsmEltQnTaWUn8N 0SePos3TMGnlDhiHL5t hBAiJLrnSc6pbOwzjIr uQS2qMLWzsicuv875Pw Ruv0oqCNQlkMAlNTtdM AD0O49ih0A9ILYgMWQw IXK0mGS2rU4cjYedarl gbGVmdDsgdmVydGljYW bhPYdiH077WWItkVbaS vSibBp5B1CnMky3NPAv aFkzTV9wbJXvTMjjNh6 clKvmwPkoTV7oCBSnrp les650WmSdv1gbJKYjy IApBRcjXXZ9E80vr3H0 XKZiQFKdHPN5aHL1vQ0 hbGlnbjogbGVmdDsgdm CokOiyNNboCTbnL295V HRvcDsnPlBhdGllbnQg ISmrZJd5D0XoQmwdiOM +OL18CVCyQV09dHBxiV Hcb9ptiYh3DsQsGUTrP BF8xGvjLSsaj8MdFPFi S51llOKum0T5SQVxoKk qnSLnKbUlaNY4tQ2kMY jlixezv3nlzjhkDnwot 5wnkv95wT76H31kWOql ZHRoPSIzMCUiIHZhbGl oaa0enQ9kWf7+PGNvbC W1cVA4pU2aQYYwUvS2N RxgG809ZpLgaHKsNqvz m3vzn1oveDo2NbJ0TRE yzeFxuUagXTO5t3KlPz 96V27eMSxrCWDdQQVaK GGgMHCgaVhmdi7kzP2o Ii8+DQBlhPL8uXY6aU2 iSvRkEtS4JPcqQ234Px WloUCeDshtI14gT7Smt XA+PFSqWwt2TPXdrPxo II4plFIuREwmRm6uGHD 7VbPiPfAhZTeoZ3NfNZ VspfdnntrqaBT7XPSsP EIclX60Nb5qvNciSLEv uPEMyC0tjwmtb0ofwqc yBwBnJPOjPBb6WCu4DM FazOekOxGoFLH5TbA4B VS4uVLjjM4snFlurvvs vD2mQ4ByWBXfirgwVk0 5qS2qNaRaYjQ3LRhjVy c+QkFLRVIsIEFMRVhBT kRSQSBNSUNIRUxMRTwv dGQ+RWOvXSN2jXcoFKa zBDMwmJ4iOYBpH3y4Vz RfQuM0BOvuN3FgIBDaj srfAu21lP6bOyUoGxW8 MNocR6ZitbC1ETQvfCM zFSwdIEU3K87mj9H4OT NwFIFsNCU4nFN0gU1ha GlnbjogbGVmdDsgdmVy bBpmZGzuYJnsU188IRA hoRheEbMoGqF5LfXnVU O2T7XtVkt4JWXqaWhpK V1zbMZwRRlpHr8lmZsf kMozXK9bBKVmnhyrCPH abY6oCJEzdUPajCllQV 9dZXUlqjohf413RaOaJ YN7OODwoYZfH9ZozS6h IrDeHTGuJJZmN5EbaRL sJPaiH952KEaqPlI2DR LrrfDjE2YkCKHejAelB aK9j3P6Vh9hOiJFFXDd czwvdGQ+TIJjDJK1kDf uTVfvCZNpyR8uAEHdE9 k1XrGmRmW2OWoeZ7FpW ZFtyqkuWt98pL4qGtIn VtG0PZrwV6BbcmZ2JIS ieXJvTAxuTMO4V27kb8 I8LILeRAGrOKT6kMU8z P3ddXqybewaaPHaaWcr ryJqnRbzXXdyYRxzG44 6IHRvcDsnPkZFTUFMRT wvdGQ+XPXhQXQ5gXkvR TspSHZcpW7jSHMzT5z6 HgLkBuH9ZGkjI0TxSKV xtehzBd76gV4iSbEjTe S6HEppM0GbhwL0XFSvs LBhVFmvTFU7X36pq3P2 DSEgNYLxULC5rNY6lK1 hbGlnbjogbGVmdDsgdm IqtWzxHItaPKkhW349Q SUbcPicHkDvJ8Bzlshg BuVRrOSkSBYwAB88TX2 9GC33W1HdLdxgsEReqN U+PHRhYmxlIHdpZHRoP LrqVQFkOgEjxVvfUG7u Rj0nJJCyLSOrwGjntSC dEdLjv3jqSPXjMKpjVE 3bmVvzG8KnsAB9HXQux 0p6Ww33Q85aD3AcgKH+ RPXzkMG2mVR6lA0nNdB aZzI0JLkjC592KxVbwV IiUurua6mar5lgcDu4L jMwJSIgdmFsaWduPSJ0 y1CqAb28I09qJJpdSYD oPSIyMCUiIHZhbGlnbj 7bnQ5nPj5+FTHxxPM0u IL6oN9hTpWnGqP3KWdc S407XlZgpFRsYcouG60 nT1ViwXX+HQVfBvy0EF HhwCowTD4qdFPgRCzzU e2mDIP9RqVjDbWjZHtj L6PzNIVlsgalsjwhnHU 3ZRIkGCWufU96Sa1lyY doPk2vYNKoIGI4DPSkj AGzK1BmpM8rOfJxFKPb SACkA9ZwgMQxAEnuS23 1BDciRpX9OICysnSzZ9 RiIDOhmYjxMkW7k2J7M d7CdKgttLEoAY9bQkOm JLj0I6YsLtx0PKEunUm pVI7lbBCjGSexOy8bbJ ofjXioLH5yQYOpjocpv 059OcQxr6euWMVyzTYx BBauKUB3I81es4H8VLR mHQCvNJX1qTS6aY1vzV lnbjogbGVmdDsgdmVyd BycMPlbIAmwW552CZVf dHynZvFHTjh7E5WyTnw 7IVZweCetPX9hfVYdXS vbMb4fgUxaqExgCF0zW GHvbgtms486StHis4no CDYctCZzTAaiDUR8A69 gz2Z4FLWvDYHlPQL0sC P1jW7xyLsggmkstEJqn DsgdmVydGljYWwtYWxp I541TEBccCbhPq0JVps 4Y6RsAvi6ONPeaAtuSH 7gyAOwWTybDv1opGkdt QukUJ7uSKRzjthdx189 AkJrt0juERGjfHRvHQi xCPU3K76cm6B2TIOoIK VsGJW8dIG2oE7tyBsbe jogbGVmdDsgdmVydGlj AXheOUzaO430QNXekMa nPlBheWVyOjwvdGQ+PC 02pe17S7MlAaajKgx6B IQeBEZ1yMB2eP4fBARw [facility] (more content not included)... Normal [facility] .Auto Diff 04-22-2023 Auto Bland % 6 % Normal 05-06 [facility] Comment on above: Performed By: #### 3 [id number] #### [facility] (DEFAULT) [address] [place] [address] 52232 Baso Abs# 0.1 x10 Normal 0.0-0.2 [facility] Comment on above: Performed By: #### 3 [id number] #### [facility] (DEFAULT) [address] [place] [address] 29602 Basophils/100 WBC (Bld) 0.8 % Normal 0.2-2.0 [facility] Comment on above: Performed By: #### 3 [id number] #### [facility] (DEFAULT) [address] [place] [address] 93009 Eos Abs# 0.1 x10 Normal 0.0-0.4 [facility] Comment on above: Performed By: #### 3 [id number] #### [facility] (DEFAULT) [address] [place] [address] 72450 Eosinophils/100 WBC (Bld) 1.8 % Normal 0.9-4.0 [facility] Comment on above: Performed By: #### 3 [id number] #### [facility] (DEFAULT) [address] [place] [address] 99199 Lymph Abs# 2.1 x10 Normal 1.3-2.9 [facility] Comment on above: Performed By: #### 3 [id number] #### [facility] (DEFAULT) [address] [place] [address] 46283 Lymphocytes/100 WBC (Bld) 26 % Normal 14-48 [facility] Comment on above: Performed By: #### 3 [id number] #### [facility] (DEFAULT) [address] [place] [address] 75216 Bland Abs# 0.5 x10 Normal 0.0-0.8 [facility] Comment on above: Performed By: #### 3 [id number] #### [facility] (DEFAULT) [address] [place] [address] 68881 Neut Abs# 5.2 x10 Normal 1.5-9.2 [facility] Comment on above: Performed By: #### 3 [id number] #### [facility] (DEFAULT) [address] [place] [address] 26704 Neutrophils/100 WBC (Bld) 65 % Normal 44-88 [facility] Comment on above: Performed By: #### 3 [id number] #### [facility] (DEFAULT) [address] [place] [address] 84759 CBC w/ Auto Diffon 3 Man Diff? Auto Invalid Interpretation Code [facility] Comment on above: Performed By: #### 3 [id number] #### [facility] (DEFAULT) [address] [place] [address] 33188 Erythrocyte distribution width (RBC) [Ratio] 13.1 % Normal 11.5-15.0 [facility] Comment on above: Performed By: #### 3 [id number] #### [facility] (DEFAULT) [address] [place] [address] 47231 Hematocrit (Bld) [Volume fraction] 40.7 % High 33.7-40.4 [facility] Comment on above: Performed By: #### 3 [id number] #### [facility] (DEFAULT) [address] [place] [address] 76510 Hemoglobin (Bld) [Mass/Vol] 14.0 g/dL Normal 11.3-15.9 [facility] Comment on above: Performed By: #### 3 [id number] #### [facility] (DEFAULT) [address] [place] [address] 51098 MCH (RBC) [Entitic mass] 29 pg Normal 24-34 [facility] Comment on above: Performed By: #### 3 [id number] #### [facility] (DEFAULT) [address] [place] [address] 54898 MCHC (RBC) [Mass/Vol] 34 g/dL Normal 26-37 [facility] Comment on above: Performed By: #### 3 [id number] #### [facility] (DEFAULT) [address] [place] [address] 79240 MCV (RBC) [Entitic vol] 85 fL Normal 81-100 [facility] Comment on above: Performed By: #### 3 [id number] #### [facility] (DEFAULT) [address] [place] [address] Platelet 275 x10 Normal 138-427 [facility] Comment on above: Performed By: #### 3 [id number] #### [facility] (DEFAULT) [address] [place] [address] Platelet mean volume (Bld) [Entitic vol] 7.7 fL Normal 6.3-10.2 [facility] Comment on above: Performed By: #### 3 [id number] #### [facility] (DEFAULT) [address] [place] [address] RBC 4.79 x10 Normal 3.70-5.30 [facility] Comment on above: Performed By: #### 3 [id number] #### [facility] (DEFAULT) [address] [place] [address] WBC 7.9 x10 Normal 3.5-10.5 [facility] Comment on above: Performed By: #### 3 [id number] #### [facility] (DEFAULT) [address] [place] [address] Standard 04-22-2023 eGFR Non AA >60 Invalid Interpretation Code [facility] Comment on above: Performed By: #### 3 [id number] #### [facility] (DEFAULT) [address] [place] [address] eGFR AA >60 Invalid Interpretation Code [facility] Comment on above: Performed By: #### 3 [id number] #### [facility] (DEFAULT) [address] [place] [address] Albumin [Mass/Vol] 4.0 g/dL Normal 3.5-5.0 [facility] Comment on above: Performed By: #### 3 [id number] #### [facility] (DEFAULT) [address] [place] [address] Albumin/Globulin [Mass ratio] 1.2 {ratio} Low 1.4-2.6 [facility] Comment on above: Performed By: #### 3 [id number] #### [facility] (DEFAULT) [address] [place] [address] Alk Phos 68 IU/L Normal 32-91 [facility] Comment on above: Performed By: #### 3 [id number] #### [facility] (DEFAULT) [address] [place] [address] 29768 ALT [Catalytic activity/Vol] 14.0 U/L Normal 14.0-54.0 [facility] Comment on above: Performed By: #### 3 [id number] #### [facility] (DEFAULT) [address] [place] [address] 06270 Anion gap [Moles/Vol] 10.9 mmol/L Normal 5.0-19.0 [facility] Comment on above: Performed By: #### 3 [id number] #### [facility] (DEFAULT) [address] [place] [address] 91437 AST [Catalytic activity/Vol] 18 U/L Normal 15-41 [facility] Comment on above: Performed By: #### 3 [id number] #### [facility] (DEFAULT) [address] [place] [address] 23342 Bili Total 0.6 mg/dL Normal 0.3-1.2 [facility] Comment on above: Performed By: #### 3 [id number] #### [facility] (DEFAULT) [address] [place] [address] 56750 Calcium [Mass/Vol] 8.8 mg/dL Low 8.9-10.3 [facility] Comment on above: Performed By: #### 3 [id number] #### [facility] (DEFAULT) [address] [place] [address] 83882 Chloride [Moles/Vol] 107 mmol/L Normal 101-111 [facility] Comment on above: Performed By: #### 3 [id number] #### [facility] (DEFAULT) [address] [place] [address] 92772 CO2 [Moles/Vol] 23 mmol/L Normal 21-32 [facility] Comment on above: Performed By: #### 3 [id number] #### [facility] (DEFAULT) [address] [place] [address] 29615 Creatinine [Mass/Vol] 0.68 mg/dL Normal 0.60-1.30 [facility] Comment on above: Performed By: #### 3 [id number] #### [facility] (DEFAULT) [address] [place] [address] 45688 Globulin (S) [Mass/Vol] 3.3 g/dL Normal 1.5-4.3 [facility] Comment on above: Performed By: #### 3 [id number] #### [facility] (DEFAULT) [address] [place] [address] 64202 Glucose [Mass/Vol] 103.0 mg/dL Normal 74.0-118.0 [facility] Comment on above: Performed By: #### 3 [id number] #### [facility] (DEFAULT) [address] [place] [address] 88569 Osmolality 274 mOsm/L Invalid Interpretation Code [facility] Comment on above: Performed By: #### 3 [id number] #### [facility] (DEFAULT) [address] [place] [address] 00043 Potassium [Moles/Vol] 3.9 mmol/L Normal 3.6-5.1 [facility] Comment on above: Performed By: #### 3 [id number] #### [facility] (DEFAULT) [address] [place] [address] 41038 Protein [Mass/Vol] 7.3 g/dL Normal 6.5-8.1 [facility] Comment on above: Performed By: #### 3 [id number] #### [facility] (DEFAULT) [address] [place] [address] 22292 Sodium [Moles/Vol] 137.0 mmol/L Normal 136.0-144.0 [facility] Comment on above: Performed By: #### 3 [id number] #### [facility] (DEFAULT) [address] [place] [address] 04340 Urea nitrogen [Mass/Vol] 12 mg/dL Normal 8-26 [facility] Comment on above: Performed By: #### 3 [id number] #### [facility] (DEFAULT) [address] [place] [address] 54527 Urea nitrogen/Creatinine [Mass ratio] 17.6 mg/mg High 4.6-16.2 [facility] Comment on above: Performed By: #### 3 [id number] #### [facility] (DEFAULT) [address] [place] [address] 49810 Lipid Panel Standardon 04-22 Cholesterol [Mass/Vol] 158.0 mg/dL Normal 66.0-200.0 [facility] Comment on above: Performed By: #### 3 [id number] #### [facility] (DEFAULT) [address] [place] [address] 63965 Cholesterol in HDL [Mass/Vol] 51 mg/dL Normal 40-71 [facility] Comment on above: Performed By: #### 3 [id number] #### [facility] (DEFAULT) [address] [place] [address] 32812 Cholesterol in LDL [Mass/Vol] 98 mg/dL Normal 1-100 [facility] Comment on above: Performed By: #### 3 [id number] #### [facility] (DEFAULT) [address] [place] [address] 19200 Cholesterol.total/Cholest amanda in HDL [Mass ratio] 3.0 {ratio} Normal 0.0-4.5 [facility] Comment on above: Performed By: #### 3 [id number] #### [facility] (DEFAULT) [address] [place] [address] 87053 Triglyceride [Mass/Vol] 43.0 mg/dL Normal 0.0-150.0 [facility] Comment on above: Performed By: #### 3 [id number] #### [facility] (DEFAULT) [address] [place] [address] 20662 VLDL. 9 mg/dL Normal 5-40 [facility] Comment on above: Performed By: #### 3 [id number] #### [facility] (DEFAULT) [address] [place] [address] 30237 Progesterone LCon 02-11-2023 Progesterone LC 0.7 ng/mL Invalid Interpretation Code [facility] Comment on above: Result Comment: Foll icular phase 0.1 - 0.9 Luteal phase 1.8 - 23.9 Ovulation phase 0.1 - 12.0 First trimester 11.0 - 44.3 Second trimester 25.4 - 83.3 Third trimester 58.7 - 214.0 Postmenopausal 0.0 - 0.1 Performed At: [facility] [address] [place], [place] [id number] Bibi Irwin PhD Ph:[phone] Performed By: #### 3 [id number] #### [place] [id number] Coding Summaryon 01-17-2023 Coding Summary HTMLBase 64 WhbffswfFAt2wRk+PGh lYWQ+NJ6RKURbK12sjZ RxhZ4rF7ADPLzLUtzdH UTXHJhMMwSswnVeOV1q aXNjZXJu IC8+BO9vAYGjQxmmbGK lh7F1pWA0J61oux1tXU cguWC1ZBAcOgPqhzozk 6ykvJn7DUpbDwrnEfPv TCAvuF37ZQU5xU69Je2 4dARygXUim1mivRg5Xz KwWYBeIWD3sMruKZoim 3RnVTAsQ73liPYad6B3 IGNvbGxhcHNlOyBlbXB 7iJ3aYYkuuoybp8lhyd wwVyu2rs50jAJae9Y8d IA3V0SvhgN1NGWdzBGj OwkejANLgJ6gojdle7d rseteXiLyZVYyKBo8EB b2WQVvlBxzYvIkSS39R NQ0WPOlzoYiU7WcCDJr rYxvGxG3t9Q3Pn2DI6G BIaofB6VPNRMGQGcefW Q+RP49tl14S7QkGnabC wr0EOCiRJO4qAQ7yD5x HMCeGNloj5D4kMH7M3N qblXxmo3jx3dbZQVeWN rcN00xtPSjk3L2ZHYlg FD6YDUlbYdcTaWjuZ32 Oyc+RTYfuGdla8FlPqx vw6mqf2bjuNd0QujmCA JqtsXswHveCOW9t2ZqF r8tMOWzgPC3vNW9yW4i RjMtXkA8ZMebD159YxX ahBSlWgejK44kB7QidI A+MMMvMgr9HPZntCwxC E0sH2UcICAevvxdpNKs kCstHC9sWFShjwizLGM lbQ6dUSXuJ4v7EwYhHa J0WSmmC2PsDYCebjxwI v90fK1uVvCgXaS4OCiz N4SflnE1IXFzlOYeRHf lULE1O42ey2D2LYUfFA RwRNN5jXP9xW7hzMlgj jogbGVmdDsgdmVydGlj AIskGYmcB762QVEbzWt nPkNvZGluZyBEYXRlOi AgMDkvMjUvMjAyMzwvd GQ+AFOaKFV6lMigGXTw jHDdKBieId3xjXyahZi tIE8hGHVfdkakFBLryX 0tCQSlsJIzzJykMD7jM GUzdtqvh341OfEbSIR4 GRFhtKNwI7EjjV9qNbP uCRNzGZMvX1AtdBLyHE zlD098LThlVqM6UKXqv kSnX6ZpYISxmXuqIyC6 n9S7An9Lq1QelgagR1K meHBaUsWtNnoiDUm6T4 RkPjwvdHI+EA31KBVlB Q08QMq1CIM3xKnvPToi HVIxY3FoyF0rBaZnLST kZGRkOyc+PHRhYmxlIH dpZHRoPScxMDAlJyBzd BgvJY4cMb2cPRLjGDSf vYkbvAZuKuHwy7eaEEE qYUdeCP0jxEkzI4VocS S3MPZmt0k1Xa84B22fN 3JvdXA+DNUwoHK5mAV9 qQ2cGySiZeP9IMirH44 1AfDobKHnSnvkw6svw1 nqnSv5PqQ7KCZdjdQaf BidLVX4c1PqSn27H21e IHdpZHRoPSIxNSUiIHZ auMbmtc9lkI5jOn1+PG ZdmCN6fFU4dP9zYiInR xY2ZAeqQ878WeJpyMCi Scpmo0xet2aycTg2KoH aBKJjmpPnxJhvQCY8o7 SzQm18F0OqsTtsx2TpV xt3eb13vKBvv8K6iRA2 V0QwYNIeozpptRNjbPe hQL1uWYVtbepzKWVuqK 1vFZUiI2a2BdXrTrB4Y ToxR3YljnM6PMAarXIc PHSajMOGdO2qllruc6b jepglQtBtDNNdZOf5IN v9OFSugQvoBoKsWRQ8F jE6UKD9fEIddX1hiPke vlgppK4kQee+PFU8fFY xjVJUVT9aUjedgTO+PH HsEPG5gBhdZHvnUYMld A7uRQNhM6x2LuNlQwI7 WNsdJ4ZowqH8PXMfvKC qJNJyoTMRbE2ywpgkf3 szxfarHjZjMWPjXQf9Y Ey3DONqdFofYxFhUES1 BeT9QZJ8aMVjgO2ueKk paoeltH8zMob+QmlydG uvGZG8RTj2E0WcDtl0T OHvhRcwOO6daDKkHVzr Vs3rtUgjfHzfIZ4qOVP widgbi255UfMqg9euEO MseKQqSAicRVW5R04pr 7L8DKAeCXHnPVH9fBT2 mP3ltPanscxrpPNzhPm gdmVydGljYWwtYWxpZ2 09QHJvxWmxYwOgVXu2I 2IaHkl3CRKqnAhkEH1e lKBtWRkkWj3jeWpxlXv nCB9qQGIbhnlpi543Qt Iss2dmLVGzyDTyZZhbS FS8X27kk4K3VIKkLGGz BPT4dPX8oR1ziNvqkvh gbGVmdDsgdmVydGljYW gsKRjoQ151NKEznWlyC wPuxVj8Z8QjVdv6BDEm bHyzQE3ygLIoVZxhEe5 vlLvjjVisSS6hKRRvmm hnw550QpCof3mtVSFsy TBuJKndXUI8M84bd1R4 JAGiRWUtHGC5qJB9zR4 hbGlnbjogbGVmdDsgdm SlnNthIYkbCKihH751M HRvcDsnPlBhdGllbnQg HAriMOm4V4YaJsbojAD +CW11GVJbOZ81fNTqdN Zlr6nlqBd3KkQzRYCqA SP7oTiuHHdkx0YnXCFm S81peUUws8C8HMEioEy tyBNuUhSvzPR8eL5uRB jrhuczr7pyscogLxqvl 1cscq12rW44V61nQYjg ZHRoPSIzMCUiIHZhbGl dji9ueP7nMo4+PGNvbC V9eUY1oI1kGWZmKkA2D DzgC669HmIenHUtLrrd c1hqw0aegBn4SyL3CYF pgeIbaBcvRLW4a0WwYc 02P26dBZrhSRDvDYEtW EWgGLUggQvlqq5etQ2m Ii8+XLSowPO4zBJ8hM2 sEbKbZnL2CIkfT485Ec PrlNFjGxcmR96rB9Rmy XA+OYLqRlp9WXGfcBdg KU9xtNFyTGvvAe4wPDU 7LbFkUkSqBRqeI3XnJC FrjfavardycYB6UUWlJ VFqsO51Qq7dgNioPPXy oVVZwU2syyohi4bqmjc iRbGmBNQvOHh5BJi5RX PjtVgdZaEeSLM7ZtV8A LT1uVXrhG9jxFzwgblp nG0zZ5RbNOCujncrAz5 8vD3fWlBwBhZ3VQucSt c+QkFLRVIsIEFMRVhBT kRSQSBNSUNIRUxMRTwv dGQ+TFKzLSI6cRsoZGj nFYDzsR1wBHMwZ4p3De QwZpI6VTppE6KiLZLgj qlnCn80qZ3oZdYxVeS5 UUuaQ3ZrwhI7GHVhcZW mHTpyQSA2U04to6O8MM SrDOFtDHP4tLM9mV2np GlnbjogbGVmdDsgdmVy cNwzFGbmSMruB259KLX ucKdkCuEoKpT5BsPfYZ C7P7LcWeg5YWTnmTakU F5gtLNvBBqtUo5hsJty wAshET8aAFJspmggXOE ioG1nWYFsxXZcyKucLD 1uFWHaarukq672PxOzK KB8GHSuuDTgF6PhsW7n QwLfEPNsIBLmE4HmiGC bKLrzD770RRwuBbT0JY JzitOwB7OuNNUlyVfsG wL5g3S2Ri6iCWGUFGDr czwvdGQ+JUChRQF9pLx uQLfzKNDghH7lKLOxW2 x2UyDkWaK1YOkyN3CdS GZphgtgNl39xY6gMlBq PkN0UWujQ8HpnaF9CSY quAAwDLtkBOJ1X76tq9 M2VSOsCPPpXHT1hAT6p X8vdJwubpwcxCXbmUng ktJzmQheZAqaQMxpJ90 6IHRvcDsnPkZFTUFMRT wvdGQ+RVPpVCH4gWwfP GqfQGUckA4jXFIbX2m2 BvZdTtA2WHdqL7PvLAV fdzdwGx04fB8zIuXfSv N4KRowY6XdhfP7EQRgv XAjQJyxPQF5A78id9V2 XMGeHDTkDOF4sWB3aV1 hbGlnbjogbGVmdDsgdm NseGvhTDpgWDiuC992U QUrtEziPe5AAF48MK86 Q5EwQvldxBUmrFZ+PHR hYmxlIHdpZHRoPScxMD SxIaIzjFlsQH8cNy9iC GVyLWNvbGxhcHNlOiBj a7ehDOTnGPitDN7xvJg wH4MfyML9FDDnr1w9Ax 50O85rH5CouCQ+PGNvb IH7lFR1lQ4uFsVqNsI8 TPaaL862QqFgvDPkWni pi7uvz1gjeEg0BnChEQ JthuCpuZkmLZT3x1IeP d34X44hAZjjKRZjGKLi YCXvKETlmGazgx0rcL0 wIi8+AKLtoGZ0lLZ7oB 4fTmVdMcN3ZPufO474U rDvmDOtViltJ27mG2Wq dXA+YUNkZoi1PUYvwWw aOQ1unQNfOKgdEg9mEP X0HxSmMqCyQNahR5ZzJ HOyajyapicsbQZ6LQDd CILmkX81Yw4drRrkAt1 hMCUcXXR4PAVirULsX6 YsiQ9yHkNxWBPoFNLxU 5ChuEBuDUntG083FVev JjJ3GTVzpvQgS0IaZSL lzNerKxN8e7N4Zl7NnS uwmOAlRL7tWiPeYAb1G 2SmCta7ZTEmvYvrEH2u rVTzLFwaGj6sqZxwjAb xTW5cXOZrtezhw447Qd Hfi3mhNYHhoMZmOPuxZ VV4B72pl6N5TFHtOLUz GSS5xQQ7dA4ftGaywfp gbGVmdDsgdmVydGljYW zgCZfvZ414EZUhwVlbE fYESsv9T0ScIka2RKOd qPyzWD7ntYXhSHehIy8 uuHtngRbgPO6cDYYegv efi336TmVwe8krVETzv ZDbLPwfHGI0V04it3X6 DAAoJWNqFCR7pXA7vF0 hbGlnbjogbGVmdDsgdm RtcXqsJHlkWHvvO682Y IQioGmiGb8DXpb7O2Ko Ctc5WUYgfGsnOS9lyLW dZWvsKj6sdRrvwUdrGR 3qTJEkcqghr759ZoRrc 9waYEQwuRBbKLmgHGT2 R43lt0B7NYUlJFWwUJZ 4iZF6dD2siUrekucvhB VmdDsgdmVydGljYWwtY GzoT419FZScoSbxRhRv eWVyOjwvdGQ+AK31gk8 9I3JhLmqmBgc0IWDdFR I0wNU4aG3kKTJzVNirn 8F3gVR0B4EsxnHlcp0x b2x (more content not included)... Normal [facility] C Throaton 01-12-2023 C Throat Ordered by Discern. Normal throat dong isolated No pathogens isolated Normal [facility] Comment on above: Performed By: #### 8 [id number] #### [facility] (DEFAULT) [address] [place] [address] 98242 Progesterone LCon 01-11-2023 Progesterone LC 8.7 ng/mL Invalid Interpretation Code [facility] Comment on above: Result Comment: Foll icular phase 0.1 - 0.9 Luteal phase 1.8 - 23.9 Ovulation phase 0.1 - 12.0 First trimester 11.0 - 44.3 Second trimester 25.4 - 83.3 Third trimester 58.7 - 214.0 Postmenopausal 0.0 - 0.1 Performed At: [facility] [id number] Bibi Irwin PhD Ph:[phone] Performed By: #### 4 [id number] #### [facility] (DEFAULT) [address] [place] [address] 21066 ED Clinical Summaryon 2022 ED Clinical Summary [facility] ? Urgent Care [address] [place] [address] Clinical Summary PERSON INFORMATION Name: BRYNN WALLACE Age: 22 Years Sex: FEMALE : 2000 MRN: Acct#: Visit Reason: Throat pain - Adult; Body aches; SORE THROAT, HEADACHE Arrival: 01/10/2023 13:26:17 Discharge: 01/10/2023 15:12:00 LOS: 000 01:46 Check In: 01/10/2023 13:26:17 Checkout: 01/10/2023 15:12:00 Address: [address] [place] [address] PCP: Leah Azar PROVIDER INFORMATION Provider Role [...] Adult Follow-Up: With: Address: When: Leah Azar [address] [place] [address] DIAGNOSIS: 1:Systemic viral illness; 2:Viral pharyngitis Patient Understands: Comment: Normal [facility] ED Patient Summaryon 023 ED Patient Summary [facility] ? Urgent Care [address] [place], [place] [id number] PATIENT DISCHARGE INSTRUCTIONS Patient Information Name: BRYNN WALLACE Age: 22 Years Date of : 2000 [facility]: [id number] Reason For Visit: Throat pain - Adult; Body aches; SORE THROAT, HEADACHE Arrival Time: 01/10/2023 13:26:17 Phone: Primary Care Physician: Leah Azar Attending Physician: Genesis Calvillo PA-C Comment: Patient Education With: Address: When: Leah Azar [address] [place] [address] Sore Throat A sore throat is [...] these instructions at home: Medicines ? Take risf-mcs-lgqjxhz and prescription medicines only as told by [...] and water are not available, use hand singing waiter or waitress. Contact a health care provider if: ? [...] can cause a sore throat. ? Take zjty-qpv-oeizunh medicines only as told by your health [...] provider. Document Revised: 07/08/2021 Document Reviewed: 07/08/2021 ElseImprove[employer]! 360 Patient Education ? 2022 [employer]. Viral Illness, Adult Viruses are tiny germs [...] and grow ou (more content not included)... [facility] SARS-CoV-2 (COVID-19) PCRon 01-10-2023 Internal Control Pass [facility] Comment on above: Performed By: #### 3 [id number] #### [facility] (DEFAULT) [address] [place] [address] SARS-CoV-2 (COVID-19) RNA HERBER+probe Ql (Unsp spec) Not detected Normal Not Detected [facility] Comment on above: Result Comment: Perf ormed by PCR methodology. Performed By: #### 3 [id number] #### [facility] (DEFAULT) [address] [place] [address] Strep Aon 01-10-2023 Strep procedure control Pass Normal [facility] Comment on above: Performed By: #### 6 [id number] #### [facility] (DEFAULT) [address] [place] [address] Streptococcus A Negative Normal Negative [facility] Comment on above: Performed By: #### 6 [id number] #### [facility] (DEFAULT) [address] [place] [address] 30912 Progesterone LCon 12-14-2022 Progesterone LC 6.2 ng/mL Invalid Interpretation Code [facility] Comment on above: Result Comment: Foll icular phase 0.1 - 0.9 Luteal phase 1.8 - 23.9 Ovulation phase 0.1 - 12.0 First trimester 11.0 - 44.3 Second trimester 25.4 - 83.3 Third trimester 58.7 - 214.0 Postmenopausal 0.0 - 0.1 Performed At: [facility] [id number] iBbi Irwin PhD Ph:[phone] Performed By: #### 7 [id number] #### [facility] (DEFAULT) [address] [place] [address] Provider Orderson 12-11-2022 Provider Orders [id number] Normal [facility] Coding Summaryon 12-03-2022 Coding Summary HTMLBase 64 XigpvhsdSZr2xSn+PGh lYWQ+TU5LYIXvM28ubY IcsM1hK1AVONuBXiqjJ JYPLPgCIqDekzQkXT2e aXNjZXJu IC8+VO1gDMYaOtslvMU ox1Q7vOT2W92hex3vUW iheXW5UJCqHlZgwhskl 9jnqPu8WNszSxhvMtKp PHEtcZ70FIH4dJ65Mm6 2qWPkyYKlf1xnnZh2Hq NsLEAhJIF2cMyyVOjll 5XnTFJjY36gtRVxb8J2 IGNvbGxhcHNlOyBlbXB 9yN5uFAigrxjvq7sjzy mvNvf6nm72sVHyx8U7f OT5L7PszkZ3OGHazNNh XzpqlZPJkK0yelpbb6n qwfmlSgUkDFXzKVo2XW s1QXZpfNtxZnTfBK93T QH1YPGfofHqG7VnDFKk xPbcSaG4v3I4Gk8QI2I NDeboK3DRFABSLZvwnA Q+KB47pi42F4HaQxhwL lk9XCLcAWB3yKV1hA8r AHZfRAvkc7Z8lUF4R7W tokGobf0av6uyYDDeSY onA04vxGVar0U3MCXuo QZ9PMWvlFuzPaAjmX78 Oyc+GNDdlPeht4KvEtj av7lcp8dccTz1YpalRT AhywYjrCrcHLF1i8LwW u7qWKGuuKP6jZC4iC0d XjSkXjI7DFqvT015HvF paYKfJshaM68cR0KwoA A+ECRtFin2HLIezYexP T7nD6KpTBFnjasubDUs qRvtPP3iBLGyvqhoJYT wqE1aVOBcT2v1RtRpMq S5YYvjJ5GzCZAgavnxE o71mW0wZaCtKaI7TQmt N4FzxgZ4XAVgbQPzBEb oWWD0R23hd5O6EIVpEN TcWZZ5oMS3iU8uhGbqv jogbGVmdDsgdmVydGlj XOeqYIsrQ257ADPjzGg nPkNvZGluZyBEYXRlOi AgMDgvMTEvMjAyMzwvd GQ+STHyTDB6qUlmOQTg uYAwQYqeEb6nvZbvfMn lYG4kPRInduzxOBZfsR 2mYFBubTAjzUdtHR4qB XZkdhxst392YwIxGHK1 BSSqqZPsF4PjyS6gOtT wBLHmMCVwP7MhlLFvWA jgP573HRcnTtE7SAApp kOiF5GeROSzrBjxBdQ9 o3V9Zl2Ku1IkhbfhA3Z tfRGcQeGmJeafBEv4P2 RkPjwvdHI+OA94FLKkM O58ZXa7YCX4eJiiVJfc FBXcH5PtcF7nJtAeZJI kZGRkOyc+PHRhYmxlIH dpZHRoPScxMDAlJyBzd HasSZ5nZs0hERHoEILg jJntlDUkHwXhf0aiYVQ gEYumQU7fbZxuW5AheI T8PIQkg8j1Lg44U42pP 3JvdXA+AFLjpRV9zIT8 cH1cAdKkVoX4DWehR85 2EzZkgYQdXjjaq4ovc9 oopYu8YmM6DHGjhjGtj WbeTBO4d9SyHg28L43k IHdpZHRoPSIxNSUiIHZ ihQzrev4wiP2aCi2+PG LklYE3bXR7xV9tCnWnD nZ5GIqqM788WkYmhEKa Wexjq7ffj8blaCx7LrD lDPNdqbVqaQwvFZO8o6 PqDo81X7GroVvbm2NhF xr5la05lLLhg7B9sDR1 P4MbIRQvlrewgYDxbYi wNR9pOHLeojdiRGLduV 8lCZSsN0m6BpKuMxB7W MjrH2YlnvT2WNEieOCp TQUgtELVlJ8nixohe1p mhalgFhKdAIGnPKt6BR h4QMWfbZyjYoHxUMS1K hG7FXH8eJKlqM9cpLqu rgqvoV4fUgv+SHS7gVL ztZCARO1vRagbnPY+PH TbALI5gKniPGxfMQZfn E7fWIQvW1a1IxMtOxR4 LGfuP1ExlwB4ZBRmgCQ lGFIngNXJdZ9uobftc2 etgtpeSqSqSIGaQQl9Y Fx6QLQdpWtxIuZgCHP6 HfC7EYT8pSXukF6xnVa eskjyjZ3sRqm+QmlydG pwXSA6PLx9M9JzQvc0T LIpjQhrPO4ypQLyBHzq Ox0wjJhxdTtmVC4xNJF hvhjca046XgYjq5pdSC OjsIDuDAeaEQW1M83to 7O8GUGuPKSrMUO0nDM2 jY2fyCenyqioeRWekQy gdmVydGljYWwtYWxpZ2 87UOVngPdvNmDvNIu5U 5EtUmb7FRWzsUijZN2s aREgDGecVj1rdRhvuRm tUJ6wCMLcsmkkh232Fe Zzj5ajSBUdzCTlFTirT DO6M50yy5P7XQBmPJRw XDP3oYX1iW8bjMjxviw gbGVmdDsgdmVydGljYW nsJAhtU058VLHibExyC sDepEy8T4IkRss0KLPl kVpjBW9ljEYtDBmnDz8 iuIbdxNjcKI9iARJact efo943UcUpz8nmNKNyx DAhHSftRXJ2P54ef2H9 ESCyANElWPS1fYS8mX1 hbGlnbjogbGVmdDsgdm BfjPefIIiuEQzrS694S HRvcDsnPlBhdGllbnQg WRluVPa5O8ViBiuplEN +JU84JBWpEN72wCYhdQ Zvl4kbnDo0CgIwFAQdB SA9pNrwJJpym4ThRGEd R63dbFUna5K4NEZiuYn knUNtQrPgfLE5tA3jEC xuwpvku0nlexnmJtrsw 1vncq12bV12L93hJJbi ZHRoPSIzMCUiIHZhbGl diw4tdM6mZl9+PGNvbC T2aKX6vT2fMEZtFbT1K XzaK747GoMhwQYiBifi r0dct7bemUr7CgK5WWK yolEpiYwhTRD7h9RzSu 57H95rWKnjEVXyNLFmN DAaAPJobKnkdh4pcG4z Ii8+AWRwgUI9bLM7pG4 xTjZiPeF3BWdxD702Vq IbzCIhUskdI36hD2Ozp XA+YUCuGyp7XFYqxBkd YD9ucWNnYIzpWn9zSMW 4UmXeRoMvEQnsS0LiAB JrthdgtcnxlGM5SHRuB TMtlV18Gw6vhPuyTOMh fUJZlO5mggucw4tfhkz iSsTvWMZoCHo4HNs9LH GciFhiZwFnMJV8LsD4I LE4wXUsfW9shDnenglh aR6gZ9ClLORfrbyzCq1 3sA3fFnZlLoW7KUjhWw c+QkFLRVIsIEFMRVhBT kRSQSBNSUNIRUxMRTwv dGQ+IMQcGBN9aDcwKXk kQMHytX5oPEPnE9j3Ag BoSwF4ZCamW5CuLCDrh iznKt22pA3mEqOlGhN2 NByeF7TgrwU9BYMotNZ pIMblEAT3N74gm2P2LL GpPXRcVPI9gDU5yG2re GlnbjogbGVmdDsgdmVy oDyqTNubDOklL863UGD fnDwjVxSbPqR5BmGvJH I5Y3BbZpu6VXBvsTkaB B6grBMqXEttFj5vpOif uOxwGA1aDLDnxniyJAE zlL1pBKGecTQrsHgpXR 2yKIBrqocvj201UnVlW TT6YYQzrAYoY2SujS6r OdLtBRFrHTSdZ7QkgBS jHFxbA858WEtoLjJ6BO HnvjWnP7XpGEXswDykS tW7y0T7Vh4qWPCFSMSy czwvdGQ+GCFyHNZ1uLl lNEcvHZVkkF3yYAYrR6 v9IaIvLaI3QIbzP0NbQ KZxvcaiCw74xF6rZsOb KwR5QZfuQ3TbowB7HSE zjWRlFSwmXQQ7Y27vw6 Y3WPOhQZHrCYV2iJP2c D9vxCrxhnsjoTDhzUgz hsHaoOeeHFgjFHinH27 6IHRvcDsnPkZFTUFMRT wvdGQ+GHEqVUQ4bLzgU FlfVWRfkI4bTJLiN3g0 ZpXbBpJ5EDpzF4ZaLQW yyhlxVf80gM4xJdJuPu F0STneJ1WopaA4SUZvj XIkMBnpQAU5D02rn2D6 SFWyYKXmWHN0vAX5qK5 hbGlnbjogbGVmdDsgdm JwgNzzNFvaXAguR699I XZctEeyJb2HBF06ZX45 K8LfZxcbdMPubRS+PHR hYmxlIHdpZHRoPScxMD AmNlDapSzlMR7lYp4kV GVyLWNvbGxhcHNlOiBj x2lmMQCeNKvlOX6vsNj jK3TmeLG0LQVpm8h7Dy 68R16mI2ObkSU+PGNvb FE4nFE1uE1lMpNzQoR5 FJyvH408OkObtVChEtb ku3izo4qfyMz8KuDwEY KoazWesHgrGXG1q7YcR k45B86jBFujHPJuXUAq KEHuCTZhqFjjhn5sfY5 wIi8+ZKMuvWF0xIQ2uP 9sDaSrCaR2JIuxZ031F tGuqXFoPcnuB98iD1Nz dXA+RTKaAfd9EEXmwKu bTH4zwXGcFSxeTg0dXG O5JhZdEdOmSIyuP2ZvL UQnemqwxuouoYU0VKRj SZCifF18Gn9heNasHb8 yUNTzIXY6JXZbfIXmC7 BiyV5mAaPkACFbVEHzL 3PmoJChHXasP213UZrg MdZ1AQYedsNgG4IdKVD xsWsxXuG2l1G9Bp6UgY yvrNIqXL6mNuNkDZi0G 2PaAjl6KWDplMnuVX2k mLUdAFxrOz6yxRqpkLy aWH0iGYZicdjzu547Hd Cry1pxBBAphQVcBVjsO CD9B98lz5I3RQUdGFZk NJI4uSG0sG4qcRmpwky gbGVmdDsgdmVydGljYW kqBZrcT908QUZcrCibD wHOCyc8K8HtHbu2VOXk hHziBI5ohHViTTmiWy5 oqSkqdTbhXB7vCBGdon mwd440IfHcr0whTJXjf BRhKWtmPSN6P41iq0R8 GZEqVQRiGLM9dJH1tD5 hbGlnbjogbGVmdDsgdm AfxIrkSXfvGMemT970V EPcsHykQi5ELao3Q2Be Qie6LSAfhVofNV7qaZR uPHzjUg0noYraoYjhIF 7dWKOolfvxu962ToImg 6jfSGLrgHPhTBqrKXY8 D21pz7Y6RSWzFALfIWC 2uKT5mD7ooUcardciaS VmdDsgdmVydGljYWwtY PonW195LSTmfAtjFjUx eWVyOjwvdGQ+MG77wn9 3U1LsBjwkXow4BHYoBO D9vHV8hC5aIREdQFjwu 5D2hFZ3A1TpmtJrch8q b2x (more content not included)... [facility] US Pelvis Non-OB Completeon 11-29-2022 US Pelvis [...] MD 11/30/22 10:38 a Technologist: Geno TORRES [facility] Provider Orderson 11-26-2022 Provider Orders [id number] [email or web address] [facility] Coding Summaryon 11-22-2022 Coding Summary HTMLBase 64 VkmopsjyZUd2rPu+PGh lYWQ+KQ7ZPVGcN67mzR MddF4eI9DELVmAYtjqL WWOYHeYJdCsvgZgNP2i aXNjZXJu IC8+MA2sONBwSpmbfXQ mh2K0hOF9K84htr6hFT llcIN6LSTaZuSlmoocx 5pfgNw5ZAvuWualYqTh MMQzxR40KRQ9sN91Cu5 8mCVmzLSib4ykoUw2Nb IkWNOyRCN3mCueQMujj 5XnRPQrF33jhBNyg4T6 IGNvbGxhcHNlOyBlbXB 4gA7mQGyulfjfp4fybl xfBcf5va94uODmz1Q2u GL3J2BdmgV4UJEkhBFz HxounOALmO7bklobu7m maqesShJgLYPlWOb2YU y9WMOptWxyTaAeBA88F YP6XJOmoqIaC7GiZDSk eJzxIgW4k9L5Jt3DK6T ZOggwG5KKQEDGZEgyoM Q+LO40sj14X1GxXbdfC ul9IYUzHYX6xQT7gX2p MXOyLQzfv7S2rQI1S9Y getOtxk4am3ktWDKeWW cvU87trMTuv3L6PVEib YE7VLWycGwjGnBhoW90 Oyc+YQBgdBnap0ZfPxj gf8dgv9uxqJf8WxrhOU PkyuItbVmbAAL0z0ZxS x1oPWZwmOG0gTT4kI3z OiBtQrF6RIdlY928YkR etVScNoueV39vS7CltB A+UEOnXmb5TWOnlLmdE Z4sT3DhJNNpdmvraDYq rPicXH9vNGMxhktzNUV cnC4qPVTaL9q8PsNpDx J1LXbvW5HoVVQbzsgeI w05tR2yZqHpYgX3KOlb L6YsrkT3HMCicSNdPVe iCJO8K97ec3K0EVDuHD YcHDD6hCW1bJ1evUmnu jogbGVmdDsgdmVydGlj IEgtPXfvY668VLAqnFw nPkNvZGluZyBEYXRlOi AgMDcvMzEvMjAyMzwvd GQ+TTLeBEI7tAujIKDv rYMfNUfeHk0zoLcvaXe wOA7dQGMuolhaNVJnxA 0bVTUrgHSzoIcdZL7xT YKuuudsc179BpCtSQY2 DISflCWoZ7PtaH3cPuW wQKOwOZCjX8TlfWDiYS ssH466RZwlJxA7ZTOxv iCfE4OkYZYeiFwyQlQ6 v5L0Nn6Rh0XaixqrW7Q qoKNdZxYgGscmFPj6T3 RkPjwvdHI+YD55OLAeR M08SHp9ONQ4vVdpQRed JBLgS9JbeV5gVrAfHKZ kZGRkOyc+PHRhYmxlIH dpZHRoPScxMDAlJyBzd RpoZS2oBd7mLVYlWCZk iLpdeONrTrChm9bmGOX rPUgyHF3qoTpuW3WjmJ E8JCEbh8x6Mu77L67iX 3JvdXA+WAOdwZW5tLE2 bA6mRxJhXfD3PBpwQ76 1EqSjoDRgVbpmb0pzm3 hatDt2LgH4NGXiezXfw MfcPHH3o4WgVp36U78u IHdpZHRoPSIxNSUiIHZ qjYtybs0eqY7iDe1+PG TslQK1zYU2hT8gUkTzW bR9ZEdqO671EfSfyEDu Zllpo0wwf7sbsNm8YoS cWWRqidMoyRstFTK6h6 VdPb67B7FamQvwa7MlT da0rv95nRSjk0U1rCB3 C6LaESCsutmnyLLruIb iEM6hNGMrqpqmLMAfsN 0nVPNxI0l8NcFsMeG9X QuqO3SwhiN3ZJXosVLz CYWbfSFNqL0ybmmph7t gxcjfQvMwDLJaHVf2LM y7INQhkXtdRhVlHQN8M dR3LFE8qIOrxE7qdQol hcukfB9eUpe+NJJ2eQJ dmRQTAQ0cVhugxRD+PH MhPMX6yXhgWWzxGXOvd K3uROFjE6b9OhGvZyC9 NZvsU3XfuaW7LOTscQO kURKlwRHJoE9vvferz0 rfyemqTrUnXWGxSPk7L Jg5OMRtrAdjFxJeZBF3 UfN0HVK9bPJuzE6fdOi zgthbdK2cArx+QmlydG pdBGO1JNy6H9AbUzq3G NRuvGglVL6ceOFmHBuw Ul8uvRqpbWvtKH1wIUK msjbxt975KkUid9jwTX PidEPbQRcgJTF7E75bk 1X2CRAuTSIaZQW6yFC3 lP4wgCyhebbzvTZzrPj gdmVydGljYWwtYWxpZ2 99ETBfpBmbYdVxLAz5N 6QnYqj6UEUmsEzdSE8j aIZsJCrtMb3dqEenjAc hKI8uFOKpersco176Ko Aos5tkCOPnxKOdFRnnT JS3T38fz1V4PCXvOWAf OUR0cJU3sS5lsIiyphw gbGVmdDsgdmVydGljYW lbBLsgH325WWTyiSlpU jKcgMn3P5JeUfw5PUOq yDidQZ7mjQWwAYfkWr3 njOvcfPncDT4lFYDlrt nnq036EjObw9upOZHrb ECqEIwfALH4K82ok5P8 NUCtOURiCHK3gNE4fZ9 hbGlnbjogbGVmdDsgdm OtwMiaIHevXLndN841V HRvcDsnPlBhdGllbnQg REebLTi5A3ZxDnbluVO +QX04XWQcYJ15xWBeqQ Cpf3dwdPo5ToHtWHJaQ KO1jTzaIWvgw6RuUBGk C72rnZXjd3W4YQIbtWf efVYjGeElnPT6pZ1wBR rqvizrf9owxanyTxwnh 6gqab24mK35U22iOAop ZHRoPSIzMCUiIHZhbGl jff7ksF0dGl6+PGNvbC S6cOH3yM0eFPDdGyX1T RzcD646SlQxkKNxWdkd t1mxo2ttvSj2EfZ6EXS jjxCxdWtzUMW5e1WvWc 32O08lITvbSTHgFJFwM FCcQJOcwHfxrf0vrH6t Ii8+SBHzbOM1tVB8rE6 jZfVwLbA6TFyxL810Uc ScbPNrNxdiG34qZ0Jtw XA+GLHyCsc9BYTtnYwo YW8udQVrLPtpZl6bLZR 0UmPtXuClWAkzI8CvHA XykzsteydlgLU0QDXzN COnzW24Lw9cpBvuLZQu oYJRmU1beicco5qokkd jKiQtPKDhVKc0ODb5BV GyxJraTiFcAQW0JnA5P OU2rAGpzR9azSweabpk qQ3jP9UrBOAobhkvFh4 1xI2aBeTqQuZ2BBxdUl c+QkFLRVIsIEFMRVhBT kRSQSBNSUNIRUxMRTwv dGQ+AHSvWLL7tMbvIBp gATOwkA6iNPBvQ9n6Xl SvJnB7HSokW3WzSBKyj qfbTn88oQ5dPbVuYwO3 LDvpA6RvlzK8AVJihCB bBJykFYV2A97ta1R7PP JhFLMjZEQ9nCY3zC3td GlnbjogbGVmdDsgdmVy sDipAZnkKYcuV463YMZ bgKzlNfIwAsX7SoFuJI C5Z5PqWnf3QMRooSsyL I3reVTqPGbyXy4iaVuq aDsdWI6mPLQsuglcBDQ yaN0rCYIeqKPbqPegEZ 1iVHYhleiiu087YuDpA PI5EYChlZEtE2WxpN3g QeNtSVLfUQAiM1YboUH lKFpwK429MAvfQxO0LK QmaxCdO8RzSEZcfGrdN aP5z0I3Jg3iJDMHXDMq czwvdGQ+RXEmNCQ4pTq kWFasENZusD2bSHDmY9 s1OdIwMxQ8JTabU6BcL YMjwiblCd64sJ2hWbHd EvT0WMgrV5VyfmR6CNZ gwCIsXYidIMA0H40gu3 W1NZReGCWpNBX5nHI1p E1ywLrlfrvmlXWclQkg kiSvfIwsQKioYUvlW96 6IHRvcDsnPkZFTUFMRT wvdGQ+CUBoGQF6yLwfW InbXBSzhY7dHAByB5v4 JtBbRvM0CEldS7VqCES oqtocZv44pB4iLgTeFb X9UBwyH8WauiM7FWFnh BGuAXegICV0G67zt5C1 XURwOFPpVDR8gIW7kK6 hbGlnbjogbGVmdDsgdm FhkOfyYSyiOXscH505P KMqbKwjQi5LPG04MO33 U8ObWoolbPEeoQD+PHR hYmxlIHdpZHRoPScxMD OpMsOlzXfzJS6oBe2gS GVyLWNvbGxhcHNlOiBj u0ewKQXmCRziGG3kjRl hN2ThoPZ0QHOoo7u7Fu 03K28bL7PcbHT+PGNvb ZS8hKH9nT2xLtRqQdF5 HKjhV820BfWbzTZvIkh nk9bkg2odnNs3DdWoHR CtdgPfgDztCGC8y3MfK p57U55dJXwxDBUjCBTb JDTiALGxqVptzk8jqM7 wIi8+KMDczGT6yZP2kQ 3hVaPiNnP0PNxjS338E sBvyJWyRgubA03gR9Ub dXA+LITeXhn5YSOxyJw mZS3ndLBnQXuuZb8vEG M5FvTiFgRlNIkvS6JjU JPsbskdcelymKU6MSNw QFIckK07Ve9cgNcjUg7 sHSRjHAP1TFCiwLMvX8 BnrY4lGkQzIJFyVSMbZ 4TnbJHxBMboF160CFlm RgU2XPJdflZfU4EuSCS qdLahArE4d9I5Rl3VeF bmlFIoGM4hYoXoGNe0O 2CjEbw4PYCjaVqkTS0m jCEyHCnjTm7myEycsLe bEG2oWMTazelcs119Sl Kaz1siMVWdjCScBRkfI GU3X09dz6Y7QPZkQVJs VSX1cGI1nQ6vaGyudsg gbGVmdDsgdmVydGljYW qgQKxuA621QHCdwNtxD hZHJum5T2JhJvi5YQLf eMnsNT3nsFCtBOryDw3 liTosaAlkRA3bRFOmnw rib146OzRhs8siZPAdu NTfTXqwQFK1G87wc0N3 IWPuXHJeGGK3yJO2dS3 hbGlnbjogbGVmdDsgdm NdqWgxMVlxQIreT178G OOugUfvGw4VIbm8N2Wv Ltu6LAMjaMuhQE2hnKO iNMsyEa3pkPuyhIdiII 6nEOJddlpom036MsYlg 6xzBLIuhPPuGNlbWYU6 L48qg9W9LWFhVWIqSZB 1dBE0vV0iiXqbegscjC VmdDsgdmVydGljYWwtY DpuU739PCAwrLwlMfEw eWVyOjwvdGQ+OL18vo7 0E8IyWdybGjh3WYNcKF V4uQV0jY1zEXFzWHzgz 6B8bXP5N6YqwwPift4o b2x (more content not included)... [facility] Dehydroepiandrosterone (DHEA ) LCon 11-20-2022 Dehydroepiandrosterone (DHEA) LC 340 ng/dL Invalid Interpretation Code 40-739 [facility] Comment on above: Result Comment: This test was developed and its performance characteristics determined by [facility]. It has not been cleared or approved by the Food and Drug Administration. Performed At: [address] [id number] Morris Nayak MD Ph:[phone] Performed By: #### 6 [id number], [id number] #### [facility] (DEFAULT) [address] [place] [address] Dehydroepiandrosterone Sulfa te LCon 11-18-2022 DHEA-Sulfate LC 612.0 ug/dL High 110.0-431.7 [facility] Comment on above: Result Comment: Perf ormed At: [address] [id number] Bibi Irwin PhD Ph:[phone] Performed By: #### 2 [id number], [id number], [id number] #### [facility] (DEFAULT) [address] [place] [address] 18689 FSH and LH LCon 11-18-2022 FSH LC 1.9 mIU/mL Invalid Interpretation Code [facility] Comment on above: Result Comment: Adul t Female: Follicular phase 3.5 - 12.5 Ovulation phase 4.7 - 21.5 Luteal phase 1.7 - 7.7 Postmenopausal 25.8 - 134.8 Performed At: [address] [id number] Bibi Irwin PhD Ph:[phone] Performed By: #### 2 [id number], [id number], [id number] #### [facility] (DEFAULT) [address] [place] [address] 07700 LH LC 1.9 mIU/mL Invalid Interpretation Code [facility] Comment on above: Result Comment: Adul t Female: Follicular phase 2.4 - 12.6 Ovulation phase 14.0 - 95.6 Luteal phase 1.0 - 11.4 Postmenopausal 7.7 - 58.5 Performed By: #### 4 [id number], [id number], [id number] #### [facility] (DEFAULT) [address] [place] [address] 50524 .Auto Diff 1on 11-17-2022 Auto Bland % 5 % Normal 1-12 [facility] Comment on above: Performed By: #### 5 [id number], [id number], [id number] #### [facility] (DEFAULT) [address] [place] [address] 40833 Baso Abs# 0.1 x10 Normal 0.0-0.2 [facility] Comment on above: Performed By: #### 3 [id number], [id number], [id number] #### [facility] (DEFAULT) [address] [place] [address] Basophils/100 WBC (Bld) 1.0 % Normal 0.2-2.0 [facility] Comment on above: Performed By: #### 3 [id number], [id number], [id number] #### [facility] (DEFAULT) [address] [place] [address] 29581 Eos Abs# 0.1 x10 Normal 0.0-0.4 [facility] Comment on above: Performed By: #### 9 [id number], [id number], [id number] #### [facility] (DEFAULT) [address] [place] [address] 98581 Eosinophils/100 WBC (Bld) 0.7 % Low 0.9-4.0 [facility] Comment on above: Performed By: #### 1 [id number], [id number], [id number] #### [facility] (DEFAULT) [address] [place] [address] 20265 Lymph Abs# 1.9 x10 Normal 1.3-2.9 [facility] Comment on above: Performed By: #### 3 [id number], [id number], [id number] #### [facility] (DEFAULT) [address] [place] [address] 63874 Lymphocytes/100 WBC (Bld) 19 % Normal 14-48 [facility] Comment on above: Performed By: #### 1 [id number], [id number], [id number] #### [facility] (DEFAULT) [address] [place] [address] Bland Abs# 0.5 x10 Normal 0.0-0.8 [facility] Comment on above: Performed By: #### 6 [id number], [id number], [id number] #### [facility] (DEFAULT) [address] [place] [address] Neut Abs# 7.7 x10 Normal 1.5-9.2 [facility] Comment on above: Performed By: #### 0 [id number], [id number], [id number] #### [facility] (DEFAULT) [address] [place] [address] Neutrophils/100 WBC (Bld) 75 % Normal 44-88 [facility] Comment on above: Performed By: #### 5 [id number], [id number], [id number] #### [facility] (DEFAULT) [address] [place] [address] CBC w/ Auto Diffon 3 Erythrocyte distribution width (RBC) [Ratio] 12.9 % Normal 11.5-15.0 [facility] Comment on above: Performed By: #### 4 [id number], [id number], [id number] #### [facility] (DEFAULT) [address] [place] [address] Hematocrit (Bld) [Volume fraction] 41.8 % High 33.7-40.4 [facility] Comment on above: Performed By: #### 2 [id number], [id number], [id number] #### [facility] (DEFAULT) [address] [place] [address] Hemoglobin (Bld) [Mass/Vol] 14.0 g/dL Normal 11.3-15.9 [facility] Comment on above: Performed By: #### 4 [id number], [id number], [id number] #### [facility] (DEFAULT) [address] [place] [address] Man Diff? Auto Invalid Interpretation Code [facility] Comment on above: Performed By: #### 0 [id number], [id number], [id number] #### [facility] (DEFAULT) [address] [place] [address] 67773 MCH (RBC) [Entitic mass] 29 pg Normal 24-34 [facility] Comment on above: Performed By: #### 2 [id number], [id number], [id number] #### [facility] (DEFAULT) [address] [place] [address] 85410 MCHC (RBC) [Mass/Vol] 34 g/dL Normal 26-37 [facility] Comment on above: Performed By: #### 7 [id number], [id number], [id number] #### [facility] (DEFAULT) [address] [place] [address] 66615 MCV (RBC) [Entitic vol] 87 fL Normal 81-100 [facility] Comment on above: Performed By: #### 4 [id number], [id number], [id number] #### [facility] (DEFAULT) [address] [place] [address] 66630 Platelet 280 x10 Normal 138-427 [facility] Comment on above: Performed By: #### 3 [id number], [id number], [id number] #### [facility] (DEFAULT) [address] [place] [address] 26105 Platelet mean volume (Bld) [Entitic vol] 8.0 fL Normal 6.3-10.2 [facility] Comment on above: Performed By: #### 5 [id number], [id number], [id number] #### [facility] (DEFAULT) [address] [place] [address] 53752 RBC 4.83 x10 Normal 3.70-5.30 [facility] Comment on above: Performed By: #### 1 [id number], [id number], [id number] #### [facility] (DEFAULT) [address] [place] [address] 70559 WBC 10.3 x10 Normal 3.5-10.5 [facility] Comment on above: Performed By: #### 4 [id number], [id number], [id number] #### [facility] (DEFAULT) [address] [place] [address] Free T4on 11-17-2022 Free T4 [Mass/Vol] 1.06 ng/dL Normal 0.61-1.12 [facility] Comment on above: Performed By: #### 5 [id number], [id number], [id number] #### [facility] (DEFAULT) [address] [place] [address] HgbA1c Standardon 11-17-2022 .Hb 15.7 Invalid Interpretation Code [facility] Comment on above: Performed By: #### 9 [id number], [id number], [id number] #### [facility] (DEFAULT) [address] [place] [address] .Hgb A1c 0.55 g/dL Invalid Interpretation Code [facility] Comment on above: Performed By: #### 3 [id number], [id number], [id number] #### [facility] (DEFAULT) [address] [place] [address] Glucose [Mass/Vol] 105 mg/dL Invalid Interpretation Code [facility] Comment on above: Performed By: #### 1 [id number], [id number], [id number] #### [facility] (DEFAULT) [address] [place] [address] HbA1c (Bld) [Mass fraction] 5.3 % Normal 4.6-6.2 [facility] Comment on above: Performed By: #### 6 [id number], [id number], [id number] #### [facility] (DEFAULT) [address] [place] [address] Provider Orderson 11-17-2022 Provider Orders [id number] 07#1.00OTGTIFF Normal [facility] TSHon 11-17-2022 TSH Qn 1.26 m[IU]/L Normal 0.45-5.33 [facility] Comment on above: Performed By: #### 5 [id number], [id number], [id number] #### [facility] (DEFAULT) [address] [place] [address] 49654 hCG Quantitativeon hCG Quantitative <0.6 Normal 0.0-0.6 [facility] Comment on above: Result Comment: Post -Menopausal Reference Range is: 0.1-11.6 mIU/mL Performed By: #### 2 [id number], [id number], [id number] #### [facility] (DEFAULT) [address] [place] [address] 91525 Lab - Toxicology Resultson 0 10-20-2022 Lab - Toxicology Results [id number] 1#1.00OTGTIFF Normal [facility] QuantiFERON-TB Gold Pluson 0 10-20-2022 QuantiFERON-TB Gold Plus Negative Invalid Interpretation Code Negative [facility] Comment on above: Result Comment: No r esponse to M tuberculosis antigens detected. Infection with M tuberculosis is unlikely, but high risk individuals should be considered for additional testing (ATS/IDSA/CDC Clinical Practice Guidelines, 2017). The reference range is an Antigen minus Nil result of <0.35 IU/mL. Chemiluminescence immunoassay methodology Performed At: [facility] [id number] Bibi Irwin PhD Ph:[phone] Performed By: #### 4 [id number], [id number], [id number] #### [facility] (DEFAULT) [address] [place] [address] 16641 QuantiFERON Incubation Incubation performed. Invalid Interpretation Code [facility] Comment on above: Result Comment: Perf ormed At: [address] [id number] Bibi Irwin PhD Ph:[phone] Performed By: #### 9 [id number], [id number], [id number] #### [facility] (DEFAULT) [address] [place] [address] 46111 HBSab Qnt LCon 10-19-2022 Hep B Surf Ab Quant LC <3.1 Low Immunity>9.9 [facility] Comment on above: Result Comment: Stat us of Immunity Anti-HBs Level Inconsistent with Immunity 0.0 - 9.9 Consistent with Immunity >9.9 Performed At: [address] [id number] Bibi Iwrin PhD Ph:[phone] Performed By: #### 2 [id number], [id number], [id number] #### [facility] (DEFAULT) [address] [place] [address] 25702 Measles/Mumps/Rubella Immuni ty LCon 10-19-2022 Mumps Abs, IgG LC 132.0 AU/mL Invalid Interpretation Code Immune >10.9 [facility] Comment on above: Result Comment: Nega tive <9.0 Equivocal 9.0 - 10.9 Positive >10.9 A positive result generally indicates past exposure to Mumps virus or previous vaccination. Performed At: [address] [id number] Bibi Irwin PhD Ph:[phone] Performed By: #### 9 [id number], [id number], [id number] #### [facility] (DEFAULT) [address] [place] [address] 04866 Rubella Antibodies, IgG LC 1.78 index Invalid Interpretation Code Immune >0.99 [facility] Comment on above: Result Comment: Non- immune <0.90 Equivocal 0.90 - 0.99 Immune >0.99 Performed By: #### 7 [id number], [id number], [id number] #### [facility] (DEFAULT) [address] [place] [address] 95992 Rubeola Ab, IgG, EIA LC >300.0 Invalid Interpretation Code Immune >16.4 [facility] Comment on above: Result Comment: Nega tive <13.5 Equivocal 13.5 - 16.4 Positive >16.4 Presence of antibodies to Rubeola is presumptive evidence of immunity except when acute infection is suspected. Performed By: #### 6 [id number], [id number], [id number] #### [facility] (DEFAULT) [address] [place] [address] Nicotine Metabolite, Urine L Con 10-19-2022 Cotinine LC Negative Invalid Interpretation Code [id number] [facility] Comment on above: Result Comment: Perf ormed At: [facility] [place] [address] [place], [place] [id number] Rachel Garcia PhD Ph:[phone] Performed By: #### 2 [id number], [id number], [id number] #### [facility] (DEFAULT) [address] [place] [address] US Pelvic Complete w/Transva ginalon 06-21-2022 US [...] by Pepito Martins on 06/22/2022 1125 Normal [facility] Operations Dispatcher XR Abdomen Single View (KUB) *on 06-18-2022 XR Abdomen Single View (KUB)* COMPARISON: NONE. FINDINGS: The bowel gas pattern is unremarkable. There are no dilated loops of bowel. There are no acute osseous changes. IMPRESSION: There are no acute changes. Report reported and signed by ALONSO PADRON on 06/19/2022 1201 Normal [facility] Operations Dispatcher CBC AUTO DIFFon 12-12-2020 BASO # 0.1 103/ul Normal 0.0-0.1 [facility] Comment on above: Performed By: #### C BC #### [facility] [address] [place], [place] [address] Jatin Tracey Basophils/100 WBC (Bld) 0.7 % Normal 0.2-2.0 [facility] Comment on above: Performed By: #### C BC #### [facility] [address] [place], [place] [address] Jatin Tracey EO # 0.4 103/ul Normal 0.0-0.7 [facility] Comment on above: Performed By: #### C BC #### [facility] [address] [place], [place] [address] Jatin Tracey Eosinophils/100 WBC (Bld) 3.4 % Normal 0.9-7.0 [facility] Comment on above: Performed By: #### C BC #### [facility] [address] [place], [place] [address] Jatin Tracey Erythrocyte distribution width (RBC) [Ratio] 11.8 % Normal 11.0-15.0 [facility] Comment on above: Performed By: #### C BC #### [facility] [address] [place], [place] [address] Jatin Tracey Hematocrit (Bld) [Volume fraction] 42.6 % Normal 36.0-48.0 [facility] Comment on above: Performed By: #### C BC #### [facility] [address] [place], [place] [address] Jatin Tracey Hemoglobin (Bld) [Mass/Vol] 14.3 g/dL Normal 12.0-16.0 [facility] Comment on above: Performed By: #### C BC #### [facility] [address] [place], [place] [address] Jatin Tracey IG # 0.03 10e3/ul Normal 0.00-0.03 [facility] Comment on above: Performed By: #### C BC #### [facility] [address] [place], [place] [address] Jatin Tracey IG % 0.3 % Normal 0.0-0.5 [facility] Comment on above: Performed By: #### C BC #### [facility] [address] [place], [place] [address] Jatin Tracey LYMPH # 2.2 103/ul Normal 1.2-3.8 [facility] Comment on above: Performed By: #### C BC #### [facility] [address] [place], [place] [address] Jatin Tracey Lymphocytes/100 WBC (Bld) 20.7 % Normal 20.5-60.0 [facility] Comment on above: Performed By: #### C BC #### [facility] [address] [place], [place] [address] Jatin Tracey MANUAL DIFF REQ NO Normal [facility] Comment on above: Performed By: #### C BC #### [facility] [address] [place], [place] [address] Jatin Tracey MCH (RBC) [Entitic mass] 30.4 pg Normal 26.7-34.0 [facility] Comment on above: Performed By: #### C BC #### [facility] [address] [place], [place] [address] Jatin Tracey MCHC (RBC) [Mass/Vol] 33.6 g/dL Normal 29.9-35.2 [facility] Comment on above: Performed By: #### C BC #### [facility] [address] [place], [place] [address] Jatin Tracey MCV (RBC) [Entitic vol] 90.4 fL Normal 81.0-99.0 [facility] Comment on above: Performed By: #### C BC #### [facility] [address] [place], [place] [address] Jatin Tracey MONO # 0.6 103/ul Normal 0.3-0.8 [facility] Comment on above: Performed By: #### C BC #### [facility] [address] [place], [place] [address] Jatin Tracey Monocytes/100 WBC (Bld) 6.0 % Normal 1.7-12.0 [facility] Comment on above: Performed By: #### C BC #### [facility] [address] [place] [address] Jatin Vergaraen NEUT # 7.3 103/ul Critically high 1.4-6.5 [facility] Comment on above: Performed By: #### C BC #### [facility] [address] [place] [address] Jatin Webb Neutrophils/100 WBC (Bld) 68.9 % Normal 43.0-75.0 [facility] Comment on above: Performed By: #### C BC #### [facility] [address] [place] [address] Jatin Webb Platelet mean volume (Bld) [Entitic vol] 9.7 fL Normal 9.5-13.5 [facility] Comment on above: Performed By: #### C BC #### [facility] [address] [place], [place] [address] Jatin Tracey PLT 252 103/ul Normal 150-450 [facility] Comment on above: Performed By: #### C BC #### [facility] [address] [place], [place] [address] Jatin Tracey RBC 4.71 106/ul Normal 4.20-5.40 [facility] Comment on above: Performed By: #### C BC #### [facility] [address] [place], [place] [address] Jatinandrez Vergaraen WBC 10.6 103/ul Normal 4.0-11.0 [facility] Comment on above: Performed By: #### C BC #### [facility] [address] [place], [place] [address] Jatin Vergaraen CT ABD/PELV W CONon 12-13-[address] [...] Sabiha RUSHING Date: 2020-12-12 04:08 Normal [facility] PREG HCG QUALon 12-12-2020 , QUAL Negative Normal NEGATIVE [facility] Comment on above: Performed By: #### P REG #### [facility] [address] [place] [address] Jatin Webb PROF 14(COMP METB)on 021 Albumin [Mass/Vol] 3.9 g/dL Normal 3.5-5.0 [facility] Comment on above: Performed By: #### C MP #### [facility] [address] [place], [place] [address] Jatin Tracey Albumin/Globulin [Mass ratio] 1.1 {ratio} Normal [facility] Comment on above: Performed By: #### C MP #### [facility] [address] [place], [place] [address] Jatin Tracey ALP [Catalytic activity/Vol] 93 U/L Normal 38-126 [facility] Comment on above: Performed By: #### C MP #### [facility] [address] [place], [place] [address] Jatin Tracey ALT [Catalytic activity/Vol] 16 U/L Normal 9-52 [facility] Comment on above: Performed By: #### C MP #### [facility] [address] [place], [place] [address] Jatin Tracey Anion gap [Moles/Vol] 17.1 mmol/L Normal [facility] Comment on above: Performed By: #### C MP #### [facility] [address] [address] Jatin Tracey AST [Catalytic activity/Vol] 3 U/L Critically low 14-36 [facility] Comment on above: Performed By: #### C MP #### [facility] [address] [address] Jatin Tracey Bilirubin [Mass/Vol] 0.3 mg/dL Normal 0.2-1.3 [facility] Comment on above: Performed By: #### C MP #### [facility] [address] [address] Jatin Tracey Calcium [Mass/Vol] 8.9 mg/dL Normal 8.4-10.2 [facility] Comment on above: Performed By: #### C MP #### [facility] [address] [place] [address] Jatin Tracey Chloride [Moles/Vol] 106 mmol/L Normal 98-107 [facility] Comment on above: Performed By: #### C MP #### [facility] [address] [place] [address] Jatin Tracey CO2 [Moles/Vol] 23.0 mmol/L Normal 22.0-30.0 [facility] Comment on above: Performed By: #### C MP #### [facility] [address] [place] [address] Jatin Tracey Creatinine [Mass/Vol] 0.76 mg/dL Normal 0.52-1.04 [facility] Comment on above: Performed By: #### C MP #### [facility] [address] [place] [address] Jatin Tracey EGFR-AF DUTCH >60 Normal >=60 [facility] Comment on above: Performed By: #### C MP #### [facility] [address] [place], [place] [address] Jatin Tracey EGFR-NON AF DUTCH >60 Normal >=60 [facility] Comment on above: Performed By: #### C MP #### [facility] [address] [place], [place] [address] Jatin Tracey Globulin (S) [Mass/Vol] 3.7 g/dL Normal [facility] Comment on above: Performed By: #### C MP #### [facility] [address] [id number] Jatin Tracey Glucose [Mass/Vol] 96 mg/dL Normal 74-106 [facility] Comment on above: Performed By: #### C MP #### [facility] [address] [id number] Jatin Tracey Potassium [Moles/Vol] 4.1 mmol/L Normal 3.4-5.0 [facility] Comment on above: Performed By: #### C MP #### [facility] [address] [id number] Jatin Tracey Protein [Mass/Vol] 7.6 g/dL Normal 6.1-8.2 [facility] Comment on above: Performed By: #### C MP #### [facility] [address] [address] Jatin Tracey Sodium [Moles/Vol] 142 mmol/L Normal 137-145 [facility] Comment on above: Performed By: #### C MP #### [facility] [address] [id number] Jatin Tracey Urea nitrogen [Mass/Vol] 14.0 mg/dL Normal 6.4-19.3 [facility] Comment on above: Performed By: #### C MP #### [facility] [facility] [address] [id number] Jatin Tracey Urea nitrogen/Creatinine [Mass ratio] 18.4 mg/mg Normal [facility] Comment on above: Performed By: #### C MP #### [facility] [address] [id number] Jatin Tracey PROTIMEon 12-12-2020 INR Coag (PPP) [Relative time] 1.00 {INR} Normal [facility] Comment on above: Performed By: #### P TT, PT #### [facility] [address] [id number] Jatin Tracey INR GUIDELINES SEE BELOW Normal [facility] Comment on above: Result Comment: MAHESH RED INR: 2.0 - 3.0 CONDITIONS NOT LISTED BELOW 2.5 - 3.5 FOR PROSTHETIC HEART VALVE REPLACEMENT 2.5 - 3.5 RECURRENT THROMBOSIS Performed By: #### P TT, PT #### [facility] [address] [place], [place] [address] Jatin Webb PT Coag (PPP) [Time] 10.8 s Normal 9.0-11.6 [facility] Comment on above: Performed By: #### P TT, PT #### [facility] [address] [place], [place] [address] Jatin Webb PTTon 12-12-2020 aPTT Coag (Bld) [Time] 26.2 s Normal 22.3-36.2 [facility] Comment on above: Performed By: #### P TT, PT #### [facility] [address] [place], [place] [address] Jatin Webb XR CHEST 1 Von 12-12-2020 XR CHEST 1 V EXAM: XR CHEST 1 V HISTORY: Chest pain left-sided rib pain COMPARISON: None. TECHNIQUE: Single frontal view chest x-ray FINDINGS: No lobar consolidation, large effusions, pneumothorax, or discrete acute bony abnormality. Cardiac size unremarkable. IMPRESSION: No radiographic evidence for acute chest abnormality. Electronically authenticated by: ODALIS BRICENO Date: 2020-12-12 03:25 Normal [facility] Vital Signs Date Time Vital Sign Value Performing Clinician Ralph llamas 04-19-2024 11:36-0500 Body mass index (BMI) [Ratio] 41.9 kg/m2 Fighters Work Phone: [facility] 04-19-2024 11:36-0500 Body weight 110.73 kg Fighters Work Phone: [facility] 04-19-2024 11:36-0500 Diastolic blood pressure 80 mm[Hg] Fighters Work Phone: [facility] 04-19-2024 11:36-0500 Systolic blood pressure 122 mm[Hg] Fighters Work Phone: [facility] 04-11-2024 13:49-0500 Body mass index (BMI) [Ratio] 41.5 kg/m2 Yaritza Saginaw PA Work Phone: [facility] 04-11-2024 13:49-0500 Body weight 109.68 kg Yaritza Wendy PA Work Phone: [facility] 04-11-2024 13:49-0500 Diastolic blood pressure 70 mm[Hg] Yaritza [place] PA Work Phone: [facility] 04-11-2024 13:49-0500 Systolic blood pressure 100 mm[Hg] Yaritza Wendy PA Work Phone: [facility] 04-04-2024 14:14-0500 Body mass index (BMI) [Ratio] 41.5 kg/m2 Shaw Alia DO Work Phone: [facility] 04-04-2024 14:14-0500 Body weight 109.68 kg Shaw Alia DO Work Phone: [facility] 04-04-2024 14:14-0500 Diastolic blood pressure 72 mm[Hg] Shaw Alia DO Work Phone: [facility] 04-04-2024 14:14-0500 Systolic blood pressure 114 mm[Hg] Shaw Alia DO Work Phone: [facility] 03-26-2024 11:04-0500 Body mass index (BMI) [Ratio] 41.33 kg/m2 Yaritza [place] PA Work Phone: [facility] 03-26-2024 11:04-0500 Body weight 109.23 kg Yaritza Wendy PA Work Phone: [facility] 03-26-2024 11:04-0500 Diastolic blood pressure 76 mm[Hg] Yaritza Wendy PA Work Phone: [facility] 03-26-2024 11:04-0500 Systolic blood pressure 118 mm[Hg] Yaritza Wendy PA Work Phone: [facility] 03-08-2024 11:32-0500 Body mass index (BMI) [Ratio] 40.92 kg/m2 Shaw Alia DO Work Phone: [facility] 03-08-2024 11:32-0500 Body weight 108.14 kg Shaw Alia DO Work Phone: [facility] 03-08-2024 11:32-0500 Diastolic blood pressure 68 mm[Hg] Shaw Alia DO Work Phone: [facility] 03-08-2024 11:32-0500 Systolic blood pressure 120 mm[Hg] Shaw Alia DO Work Phone: [facility] 02-23-2024 13:55-0400 Body mass index (BMI) [Ratio] 40.51 kg/m2 Yaritza Wendy PA Work Phone: [facility] 02-23-2024 13:55-0400 Body weight 107.05 kg Yaritza [place] PA Work Phone: [facility] 02-23-2024 13:55-0400 Diastolic blood pressure 74 mm[Hg] Yaritza [place] PA Work Phone: [facility] 02-23-2024 13:55-0400 Systolic blood pressure 118 mm[Hg] Yaritza [place] PA Work Phone: [facility] 02-07-2024 10:54-0400 Body mass index (BMI) [Ratio] 39.95 kg/m2 Yaritza Wendy PA Work Phone: [facility] 02-07-2024 10:54-0400 Body weight 105.58 kg Yaritza Wendy PA Work Phone: [facility] 02-07-2024 10:54-0400 Diastolic blood pressure 72 mm[Hg] Yaritza S[place] PA Work Phone: [facility] 02-07-2024 10:54-0400 Systolic blood pressure 116 mm[Hg] Yaritza Wendy PA Work Phone: [facility] 01-12-2024 12:00-0400 Body mass index (BMI) [Ratio] 38.59 kg/m2 Shaw Alia DO Work Phone: [facility] 01-12-2024 12:00-0400 Body weight 101.97 kg Shaw Alia DO Work Phone: [facility] 01-12-2024 12:00-0400 Diastolic blood pressure 70 mm[Hg] Shaw Alia DO Work Phone: [facility] 01-12-2024 12:00-0400 Systolic blood pressure 120 mm[Hg] Shaw Alia DO Work Phone: [facility] 12-14-2023 11:24-0400 Body mass index (BMI) [Ratio] 37.61 kg/m2 Yaritza CAMARILLO Work Phone: [facility] 12-14-2023 11:24-0400 Body weight 99.39 kg Yaritza CAMARILLO Work Phone: [facility] 12-14-2023 11:24-0400 Diastolic blood pressure 62 mm[Hg] Yaritza CAMARILLO Work Phone: [facility] 12-14-2023 11:24-0400 Systolic blood pressure 102 mm[Hg] Yaritza CAMARILLO Work Phone: [facility] Healthcare Encounters Encounter Date Encounter Type Care Provider Facility Start: 04-19-2024 End: 04-19-2024 Bamboo flowsheet Shaw Alia DO Work Phone: [facility] Start: 04-19-2024 End: 04-19-2024 Bamboo flowsheet Shaw Alia DO Work Phone: [facility] Start: 04-19-2024 End: 04-19-2024 flow sheet Shaw Alia DO Work Phone: [facility] Comment on above: 38 weeks gestation o f ; Third trimester ; Excessive growth affecting management of , antepartum, single or unspecified fetus Start: 04-19-2024 End: 04-19-2024 ambulatory SHAW ALIA Not Available Start: 04-11-2024 End: 04-11-2024 Bamboo flowsheet Yaritza CAMARILLO Work Phone: [facility] Start: 04-11-2024 End: 04-11-2024 Bamboo flowsheet Yaritza CAMARILLO Work Phone: [facility] Start: 04-11-2024 End: 04-11-2024 ambulatory YARITZA PORTILLO Not Available Start: 04-11-2024 End: 04-11-2024 flow sheet Yaritza CAMARILLO Work Phone: [facility] Comment on above: 37 weeks gestation o f ; Third trimester ; Excessive growth affecting management of in third trimester, single or unspecified fetus Start: 04-04-2024 End: 04-04-2024 Bamboo flowsheet Shaw Alia DO Work Phone: [facility] Start: 04-04-2024 End: 04-07-2024 Bamboo flowsheet Shaw Alia DO Work Phone: [facility] Start: 04-04-2024 End: 04-07-2024 Clinisync Result Encounter Generic External Data Provider [facility] Unsolicited Start: 04-04-2024 End: 04-04-2024 flow sheet Shaw Alia DO Work Phone: [facility] Comment on above: Third trimester preg lakeisha; 36 weeks gestation of ; Upper respiratory tract infection, unspecified type; Heartburn during in third trimester Start: 04-04-2024 End: 04-04-2024 ambulatory SHAW ALIA Not Available Start: 03-26-2024 End: 03-26-2024 Bamboo flowsheet Yaritza CAMARILLO Work Phone: [facility] Start: 03-26-2024 End: 03-26-2024 Bamboo flowsheet Yaritza CAMARILLO Work Phone: [facility] Start: 03-26-2024 End: 03-26-2024 ambulatory YARITZA PORTILLO Not Available Start: 03-26-2024 End: 03-26-2024 flow sheet Yaritza CAMARILLO Work Phone: [facility] Comment on above: Dyspepsia (Primary D x); Third trimester ; 35 weeks gestation of Start: 03-15-2024 End: 03-15-2024 Clinisync Result Encounter Shaw Alia DO Work Phone: [facility] Unsolicited Start: 03-15-2024 End: 03-15-2024 Clinisync Result Encounter Shaw Alia DO Work Phone: [facility] External Department Unsolicited Start: 03-08-2024 End: 03-08-2024 Bamboo flowsheet Shaw Alia DO Work Phone: [facility] Start: 03-08-2024 End: 03-08-2024 Bamboo flowsheet Shaw Alia DO Work Phone: [facility] Start: 03-08-2024 End: 03-08-2024 ambulatory SHAW ALIA Not Available Start: 03-08-2024 End: 03-08-2024 flow sheet Shaw Alia DO Work Phone: [facility] Comment on above: 32 weeks gestation o f ; Third trimester ; Gastroesophageal reflux in ; Nausea/vomiting in ; Hematuria, unspecified type Start: 02-23-2024 End: 02-23-2024 Bamboo flowsheet Yaritza CAMARILLO Work Phone: [facility] Start: 02-23-2024 End: 02-23-2024 Bamboo flowsheet Yaritza CAMARILLO Work Phone: [facility] Start: 02-23-2024 End: 02-23-2024 ambulatory YARITZA PORTILLO Not Available Start: 02-23-2024 End: 02-23-2024 flow sheet Yaritza CAMARILLO Work Phone: [facility] Comment on above: Third trimester preg lakeisha; 30 weeks gestation of Start: 02-07-2024 End: 02-07-2024 Bamboo flowsheet Yaritza CAMARILLO Work Phone: [facility] Start: 02-07-2024 End: 02-07-2024 Bamboo flowsheet Yaritza CAMARILLO Work Phone: [facility] Start: 02-07-2024 End: 02-07-2024 ambulatory YARITZA PORTILLO Not Available Start: 02-07-2024 End: 02-07-2024 flow sheet Yaritza CAMARILLO Work Phone: [facility] Comment on above: Second trimester [...] Unsolicited Start: 01-12-2024 End: 01-12-2024 Bamboo flowsheet Shaw Alia DO Work Phone: [facility] Start: 01-12-2024 End: 01-12-2024 Bamboo flowsheet Shaw Alia DO Work Phone: [facility] Start: 01-12-2024 End: 01-12-2024 ambulatory SHAW ALIA Not Available Start: 01-12-2024 End: 01-12-2024 flow sheet Shaw Alia DO Work Phone: [facility] Comment on above: 24 weeks gestation o f ; Diabetes mellitus screening; UTI symptoms Start: 12-14-2023 End: 12-14-2023 Bamboo flowsheet Yaritza CAMARILLO Work Phone: [facility] Start: 12-14-2023 End: 12-19-2023 Clinisync Result Encounter Generic External Data Provider [facility] Unsolicited Start: 12-14-2023 End: 12-16-2023 External Result Encounter Yaritza CAMARILLO Work Phone: [facility] Unsolicited Start: 12-14-2023 End: 12-19-2023 External Result Encounter Yaritza CAMARILLO Work Phone: [facility] Unsolicited Start: 12-14-2023 End: 12-14-2023 Office outpatient visit 15 minutes Yaritza CAMARILLO Work Phone: [facility] Comment on above: 20 weeks gestation o f ; Well woman exam with routine gynecological exam; Screening, , for anatomic survey; STD exposure; Vaginal discharge; Nausea/vomiting in ; Gastroesophageal reflux in ; Nonintractable headache, unspecified chronicity pattern, unspecified headache type; Constipation, unspecified constipation type Start: 12-14-2023 End: 12-14-2023 Patient encounter procedure Yaritza CAMARILLO Work Phone: [facility] Start: 12-14-2023 End: 12-14-2023 ambulatory YARITZA PORTILLO Not Available Start: 10-31-2023 End: 10-31-2023 ambulatory SHAW ROJO Not Available Start: 10-06-2023 End: 10-06-2023 ambulatory SHAW ROJO Facility:[facility] Start: 09-29-2023 End: 09-29-2023 ambulatory SARAH NELSON Not Available Start: 08-02-2023 End: 08-02-2023 ambulatory SARAH NELSON Not Available Start: 04-22-2023 End: 04-22-2023 ambulatory [facility] Facility[facility] Start: 01-10-2023 End: 01-10-2023 ambulatory [facility] Facility:[facility] Start: 12-11-2022 ambulatory [facility] Facility:[facility] Start: 11-29-2022 End: 11-29-2022 ambulatory [facility] Facility:[facility] Start: 11-17-2022 End: 11-17-2022 ambulatory SHAW ROJO Facility:[facility] Start: 10-18-2022 End: 10-18-2022 ambulatory [facility] Facility:[facility] Start: 12-12-2020 End: 12-12-[address] BRANDON LE Facility:[facility] Procedures Date Procedure Procedure Detail Performing Clinician Start: 04-19-2024 Urnls dip stick/tabl et rgnt non-auto w/o micrscp Shaw Rojo DO Work Phone: Start: 04-11-2024 Urnls dip stick/tabl et rgnt non-auto w/o micrscp Yaritza CAMARILLO Work Phone: Start: 04-04-2024 Urnls dip stick/tabl et rgnt non-auto w/o micrscp Shaw Alia DO Work Phone: Start: 04-04-2024 ALL MISCELLANEOUS TEST Shawdavid Galeanoo DO Work Phone: Start: 03-26-2024 Urnls dip stick/tabl et rgnt non-auto w/o micrscp Yaritza CAMARILLO Work Phone: Start: 03-15-2024 TBH UA (CLEAN/CATCH) ELECTRICAL ENGINEERING TECHNOLOGIST/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 Shaw Galeanoo DO Work Phone: Start: 03-08-2024 Urnls dip stick/tabl et rgnt non-auto w/o micrscp Shawdavid Galeanoo DO Work Phone: Start: 02-23-2024 Urnls dip stick/tabl et rgnt non-auto w/o micrscp Yaritza CAMARILLO Work Phone: Start: 02-07-2024 Urnls dip stick/tabl et rgnt non-auto w/o micrscp Yaritza CAMARILLO Work Phone: Start: 02-06-2024 GLUCOSE 1 HOUR Shaw Galloway zio DO Work Phone: Start: 01-12-2024 Urnls dip stick/tabl et rgnt non-auto w/o micrscp Shawdavid Galeanoo DO Work Phone: Start: 12-14-2023 AFP, SERUM, OPEN SPI NA BIFIDA Shaw Galeanoo DO Work Phone: Start: 12-14-2023 URETHRITIS/DISCHARGE PLUS VAGINITIS (HTRX) Yaritza CAMARILLO Work Phone: Start: 12-14-2023 Urnls dip stick/tabl et rgnt non-auto w/o micrscp Yaritza CAMARILLO Work Phone: Start: 12-14-2023 Cytp cerv/vag auto t hin layer prep mnl screen Shaw Rojo DO Work Phone: Plan of Treatment Date Care Activity Detail Author Start: 04-19-2024 End: 04-19-2025 US biophysical profile w non stress test US biophysical profile w non stress test Imaging Routine Excessive growth affecting management of , antepartum, single or unspecified fetus Expected: 04/19/2024 (Approximate), Expires: 04/19/2025 [facility] Work Phone: Comment on above: Expected: 04/19/2024 (Approximate), Expires: 04/19/2025 Start: 04-19-2024 End: 04-19-2024 Patient encounter procedure [facility] Comment on above: Arrived Start: 04-11-2024 End: 04-11-2025 US for US OB SCAN FOR GROWTH Imaging Routine Excessive growth affecting management of in third trimester, single or unspecified fetus Expected: 04/11/2024 (Approximate), Expires: 04/11/2025 [facility] Work Phone: Comment on above: Expected: 04/11/2024 (Approximate), Expires: 04/11/2025 Start: 04-11-2024 End: 04-11-2024 Patient encounter procedure 04/11/2024 1:20 PM EST Routine [facility] [address] [place] [address] Yaritza Portillo PA [address] [place] [address] [facility] Start: 04-04-2024 End: 04-04-2025 CULTURE, GROUP B STREP WITH SUSCEPTIBLITY CULTURE, GROUP B STREP WITH SUSCEPTIBLITY Lab Routine Third trimester Expected: 04/04/2024, Expires: 04/04/2025 [facility] Work Phone: Comment on above: Expected: 04/04/2024 , Expires: 04/04/2025 Start: 04-04-2024 End: 04-04-2024 Patient encounter procedure 04/04/2024 1:30 PM EST Routine [facility] [address] [place] [phone] Shaw Rojo, DO [address] [place] [address] Arrived [facility] Comment on above: Arrived Start: 03-26-2024 End: 03-26-2024 Patient encounter procedure 03/26/2024 10:20 AM EST Routine [facility] [address] [place] [phone] Yaritza Portillo, PA [address] [place] [address] [facility] Start: 03-08-2024 End: 03-08-2024 Patient encounter procedure 03/08/2024 11:00 AM EST Routine [facility] [address] [place] [address] Shaw Rojo, DO [address] [place] [address] [facility] Start: 02-23-2024 End: 02-23-2024 Patient encounter procedure 02/23/2024 1:30 PM EDT Routine [facility] [address] [place] [phone] Yaritza Portillo, PA [address] [place] [address] [place] [address] [facility] Start: 02-08-2024 End: 02-08-2024 Patient encounter procedure 02/08/2024 1:50 PM EDT Routine [facility] [address] [facility] [place] [address] Yaritza Portillo, PA [address] [place] [address] [facility] Start: 02-07-2024 End: 02-06-2025 US for US OB SCAN FOR GROWTH Imaging Routine Excessive growth affecting management of , antepartum, single or unspecified fetus Expected: 02/07/2024 (Approximate), Expires: 02/06/2025 [facility] Work Phone: Comment on above: Expected: 02/07/2024 (Approximate), Expires: 02/06/2025 Start: 01-12-2024 End: 01-11-2025 CBC panel - Blood by Automated count CBC Lab Routine Diabetes mellitus screening Expected: 01/12/2024 (Approximate), Expires: 01/11/2025 [facility] Work Phone: Comment on above: Expected: 01/12/2024 (Approximate), Expires: 01/11/2025 Start: 01-12-2024 End: 01-11-2025 Measurement of glucose 1 hour after glucose challenge for glucose tolerance test Glucose tolerance, 1 hour Lab Routine Diabetes mellitus screening Expected: 01/12/2024 (Approximate), Expires: 01/11/2025 [facility] Comment on above: Expected: 01/12/2024 (Approximate), Expires: 01/11/2025 Start: 01-12-2024 End: 01-12-2024 Patient encounter procedure 01/12/2024 11:50 AM EDT Routine [facility] [address] [place] [id number] Shaw Rojo, DO [address] [place] [address] [facility] Start: 12-25-2023 Influenza vaccination Influenza Vacc ine (#1) [facility] Start: 12-14-2023 End: 02-13-2024 Alpha fetoprotein, maternal Alpha fetoprotein, maternal Lab Routine 20 weeks gestation of Expected: 12/14/2023 (Approximate), Expires: 02/13/2024 [facility] Comment on above: Expected: 12/14/2023 (Approximate), Expires: 02/13/2024 Start: 12-14-2023 End: 12-13-2024 US for US OB ANATOMY SINGLE W US OB CERVICAL LENGTH Imaging Routine Screening, , for anatomic survey Expected: 12/14/2023 (Approximate), Expires: 12/13/2024 [facility] Comment on above: Expected: 12/14/2023 (Approximate), Expires: 12/13/2024 Start: 12-14-2023 End: 12-14-2023 Patient encounter procedure 12/14/2023 11:00 AM EDT Office Visit [facility] [address] [place] [address] Yaritza Portillo PA [address] [place] [address] Arrived [facility] Comment on above: Arrived Bacteria identified in Urine by Culture Urine culture Microbiology Routine Hematuria, unspecified type Ordered: 03/08/2024 [facility] Work Phone: Comment on above: Ordered: 03/08/2024 CHLAMYDIA TRACHOMATI S (GENITO/STI) CHLAMYDIA TRACHOMATIS (GENITO/STI) Lab Routine STD exposure Ordered: 12/14/2023 [facility] Comment on above: Ordered: 12/14/2023 Cytology Cervical or vaginal smear or scraping study Pap Smear Pathology and Cytology Routine 20 weeks gestation of Well woman exam with routine gynecological exam Ordered: 12/14/2023 [facility] Work Phone: Comment on above: Ordered: 12/14/2023 Neisseria gonorrhoea e DNA [Presence] in Unspecified specimen by HERBER with probe detection Neisseria gonorrhea DNA probe, direct Lab Routine STD exposure Ordered: 12/14/2023 [facility] Comment on above: Ordered: 12/14/2023 SURESWAB(R) ADVANCED VAGINITIS PLUS, TMA SURESWAB(R) ADVANCED VAGINITIS PLUS, TMA Pathology and Cytology Routine Vaginal discharge Ordered: 12/14/2023 [facility] Comment on above: Ordered: 12/14/2023 Immunizations Immunization Date Immunization Notes Care Provider [facility] 03-01-2014 hepatitis A vaccine, pediatric/adolescent dosage, 2 dose schedule Yaritza CAMARILLO Work Phone: [facility] 07-26-2013 hepatitis A vaccine, pediatric/adolescent dosage, 2 dose schedule Yaritza CAMARILLO Work Phone: [facility] 07-26-2013 meningococcal polysaccharide (groups A, C, Y and W-135) diphtheria toxoid conjugate vaccine (MCV4P) Yaritza CAMARILLO Work Phone: [facility] 07-26-2013 tetanus toxoid, redu mary beth diphtheria toxoid, and acellular pertussis vaccine, adsorbed Yaritza CAMARILLO Work Phone: [facility] 07-26-2013 varicella virus vaccine Yaritza CAMARILLO Work Phone: [facility] 05-16-2012 influenza virus vacc ine, whole virus Yaritza CAMARILLO Work Phone: [facility] 05-16-2012 influenza virus vacc ine, unspecified formulation Yaritza CAMARILLO Work Phone: [facility] 02-12-2009 novel influenza-H1N1 -09, preservative-free, injectable Yaritza CAMARILLO Work Phone: [facility] 04-29-2008 influenza virus vacc ine, whole virus Yaritza CAMARILLO Work Phone: [facility] 03-29-2007 influenza, seasonal, injectable Yaritza CAMARILLO Work Phone: [facility] 09-15-2006 diphtheria, tetanus toxoids and acellular pertussis vaccine, 5 pertussis antigens Yaritza CAMARILLO Work Phone: [facility] 09-15-2006 haemophilus influenz ae type b vaccine, HbOC conjugate Yaritza CAMARILLO Work Phone: [facility] 09-15-2006 measles, mumps and r ubella virus vaccine Yaritza CAMARILLO Work Phone: [facility] 09-15-2006 poliovirus vaccine, inactivated Yaritza CAMARILLO Work Phone: [facility] 07-30-2002 diphtheria, tetanus toxoids and acellular pertussis vaccine, unspecified formulation Yaritza CAMARILLO Work Phone: [facility] 07-30-2002 haemophilus influenz ae type b vaccine, conjugate unspecified formulation Yaritza Wendy MARQUISE Work Phone: [facility] 07-30-2002 measles, mumps and r ubella virus vaccine Yaritza Wendy PA Work Phone: [facility] 07-30-2002 varicella virus vaccine Yaritza Wendy PA Work Phone: [facility] 2001 diphtheria, tetanus toxoids and acellular pertussis vaccine, unspecified formulation Yaritza CAMARILLO Work Phone: [facility] 2001 haemophilus influenz ae type b vaccine, conjugate unspecified formulation Yaritza CAMARILLO Work Phone: [facility] 2001 hepatitis B vaccine, pediatric or pediatric/adolescent dosage Yaritza CAMARILLO Work Phone: [facility] 2001 poliovirus vaccine, unspecified formulation Yaritza CAMARILLO Work Phone: [facility] 2001 diphtheria, tetanus toxoids and acellular pertussis vaccine, unspecified formulation Yaritza Wendy PA Work Phone: [facility] 2001 haemophilus influenz ae type b vaccine, conjugate unspecified formulation Yaritza Wendy PA Work Phone: [facility] 2001 pneumococcal conjuga te vaccine, 7 valent Yaritza CAMARILLO Work Phone: [facility] 2001 poliovirus vaccine, unspecified formulation Yaritza CAMARILLO Work Phone: [facility] 2001 diphtheria, tetanus toxoids and acellular pertussis vaccine, unspecified formulation Yaritza CAMARILLO Work Phone: [facility] 2001 haemophilus influenz ae type b vaccine, conjugate unspecified formulation Yaritza CAMARILLO Work Phone: [facility] 2001 hepatitis B vaccine, pediatric or pediatric/adolescent dosage Yaritza CAMARILLO Work Phone: [facility] [facility] 2001 poliovirus vaccine, unspecified formulation Yaritza CAMARILLO Work Phone: [facility] 2001 hepatitis B vaccine, pediatric or pediatric/adolescent dosage Yaritza CAMARILLO Work Phone: [facility] Payers Date Payer Category Payer Medicaid [facility] MEDICAID [place] [id number] 2022-Present [address] [place] [address] [id number] 2022 Medicaid (Managed Care) [employer] [id number] 2022 [facility] [id number]. [id number] 2022 Unknown 2022 Unknown [id number] 2001 Unknown [id number] 2.16.840.1.057497.3.579.2. 593 2001 Unknown [id number] 2.16.840.1.474889.3.579.2. 718 2001 Unknown [id number] 2.16.840.1.530526.3.579.2. 8 2001 Unknown [id number] 2.16.840.1.257123.3.579.2. 2001 Unknown [id number] 2.16.840.1.013346.3.579.2. 2001 Unknown [id number] 2.16.840.1.147088.3.579.2. 2001 Unknown [id number] 2.16.840.1.325054.3.579.2. 1258 2001 Unknown [id number] 2.16.840.1.726713.3.579.2. 1258 2001 Unknown [id number] 2.16.840.1.784644.3.579.2. 1258 2001 Unknown [id number] 2.16.840.1.308202.3.579.2. 1258 2001 Unknown [id number] 2.16.840.1.409383.3.579.2. 1258 2001 Unknown [id number] 2.16.840.1.179156.3.579.2. 1258 2001 Unknown [id number] 2.16.840.1.750867.3.579.2. 1258 2001 Unknown [id number] 2.16.840.1.095928.3.579.2. 1258 2001 Unknown [id number] 2.16.840.1.595658.3.579.2. 1258 2001 Unknown [id number] 2.16.840.1.933414.3.579.2. 1258 2001 Unknown [id number] 2.16.840.1.353420.3.579.2. 1259 2001 Unknown [id number] 2.16.840.1.200608.3.579.2. 1259 1959 Unknown [id number] 1959 Unknown [id number] Social History Date Type Detail Facility Start: 04-13-2023 Tobacco smoking status NHIS Ex-smoke r [facility] History of tobacco use Current smoker [facility] History of tobacco use Cigarette Smoker [facility] Start: 04-13-2023 Tobacco use and exposure User of smokeless tobacco [facility] Start: 01-12-2024 End: 04-19-2024 Alcoholic beverage intake Current drinker of alcohol (finding) [facility] Start: 08-30-2022 End: 04-05-2024 [facility] of [facility] Start: 08-30-2022 End: 04-05-2024 Alcohol Use Disorder Identification Test - Consumption [...] Sex assigned at Not on file N [facility] Clinical Notes 01-10-2023 to 04-19-2024 Tracey Mark LPN - 04/19/2024 11:00 AM MARQUISE Cox - 04/11/2024 1:20 PM Sukhwinder Mark LPN - 04/04/2024 1:30 PM MARQUISE Cox - 03/26/2024 10:20 AM MARQUISE Cox - 02/23/2024 1:30 PM EDT Note Date & Type Note Facility 04-19-2024 History of Presen t illness Narrative Reason for Appointment: Patient ID: Brynn Wallace is a 23 y.o. female who presents for No chief complaint on file. Patient presents today for Return OB appointment. MEDICATIONS Current Outpatient Medications Medication Instructions omeprazole (PRILOSEC) 20 mg, Oral, Daily before breakfast, Do not crush or chew. ondansetron ODT (ZOFRAN-ODT) 4 mg, Oral, Every 4 hours PRN ALLERGIES Allergies Allergen Reactions Buspirone Other Reaction(s): Increased anxiety/hallucinations Cholestatin Other Reaction(s): Unknown Lurasidone Other Reaction(s): restlessness Latuda Other Unknown PROBLEMS Active Ambulatory Problems Diagnosis Date Noted Attention deficit hyperactivity disorder (ADHD) ([facility]) 08/30/2022 Bipolar II disorder ([facility]) 08/30/2022 Acute non intractable tension-type headache 12/11/2019 Adjustment disorder with depressed mood ([facility]) 12/11/2019 Allergic rhinitis 11/23/2018 Amenorrhea 02/23/2021 Anxiety 03/23/2016 Attention deficit 03/04/2023 Chronic fatigue 03/04/2023 Chronic gastritis without bleeding 03/04/2023 Dysfunction of both eustachian tubes 12/07/2018 Dyspareunia due to medical condition in female 03/04/2023 Gastritis and duodenitis 06/03/2015 Grieving ([facility] 03/04/2023 Infertility, female 03/04/2023 Menstrual cramps 07/04/2017 Pelvic congestion syndrome 03/04/2023 Slow transit constipation 04/11/2017 Vitamin D deficiency 03/13/2019 Migraine with aura and with status migrainosus, not intractable ([facility]) 05/27/2020 Mixed anxiety and depressive disorder 12/25/2019 [...] tube, bilateral Adjustment disorder with depressed mood ([facility]) 12/11/2019 Allergic rhinitis unspecified seasonality, [...] nursing note reviewed. Exam conducted with a recreation therapist present. Vitals: Estimated body mass index is 41.9 kg/m as calculated from the following: Height as of 24: 5' 4 . Weight as of this encounter: 244 lb 1.9 oz. BP: 122/80 No LMP recorded. Patient is . ASSESSMENT & PLAN ICD-10-CM 1. 38 weeks gestation of Z3A.38 POCT urinalysis dipstick manually resulted 2. Third trimester Z34.93 POCT urinalysis dipstick manually resulted Return OB: Patient presents today for a routine obstetrics appointment. Patient is currently 38w4d . Patient states she is doing well but has complaints of being tired due to current . Patient has verbalizes frequent movement. labor precautions was discussed/given and patient was instructed to perform kick counts three times a day. Pt to have NST/BPP on on 2nd Orders Placed This Encounter Procedures POCT urinalysis dipstick manually resulted Follow Up: Patient is to return to office in 1 week for routine OB appointment. Documented by Tracey Mark LPN on behalf of: Shaw Rojo DO documented in this encounter [facility] 04-11-2024 History of Presen t illness Narrative [...] Date Noted Attention deficit hyperactivity disorder (ADHD) ([facility]) 08/30/2022 Bipolar II disorder ([facility]) 08/30/2022 Acute non intractable tension-type headache 12/11/2019 Adjustment disorder with depressed mood ([facility]) 12/11/2019 Allergic rhinitis 11/23/2018 Amenorrhea 02/23/2021 Anxiety 03/23/2016 Attention deficit 03/04/2023 Chronic fatigue 03/04/2023 Chronic gastritis without bleeding 03/04/2023 Dysfunction of both eustachian tubes 12/07/2018 Dyspareunia due to medical condition in female 03/04/2023 Gastritis and duodenitis 06/03/2015 Grieving ([facility]) 03/04/2023 Infertility, female 03/04/2023 Menstrual cramps 07/04/2017 Pelvic congestion syndrome 03/04/2023 Slow transit constipation 04/11/2017 Vitamin D deficiency 03/13/2019 Migraine with aura and with status migrainosus, not intractable ([facility]) 05/27/2020 Mixed anxiety and depressive [...] tube, bilateral Adjustment disorder with depressed mood ([facility]) 12/11/2019 Allergic rhinitis unspecified seasonality, [...] for nst and bpp today at the [facility] Orders Placed This Encounter Procedures US OB SCAN FOR GROWTH POCT urinalysis dipstick manually resulted Follow Up: Patient is to return to office in 1 week for routine OB appointment. Documented by MARQUISE Scott on behalf of: MARQUISE Scott documented in this encounter [facility] 04-04-2024 History of Presen t illness Narrative [...] Date Noted Attention deficit hyperactivity disorder (ADHD) ([facility]) 08/30/2022 Bipolar II disorder ([facility]) 08/30/2022 Acute non intractable tension-type headache 12/11/2019 Adjustment disorder with depressed mood ([facility]) 12/11/2019 Allergic rhinitis 11/23/2018 Amenorrhea 02/23/2021 Anxiety 03/23/2016 Attention deficit 03/04/2023 Chronic fatigue 03/04/2023 Chronic gastritis without bleeding 03/04/2023 Dysfunction of both eustachian tubes 12/07/2018 Dyspareunia due to medical condition in female 03/04/2023 Gastritis and duodenitis 06/03/2015 Grieving ([facility]) 03/04/2023 Infertility, female 03/04/2023 Menstrual cramps 07/04/2017 Pelvic congestion syndrome 03/04/2023 Slow transit constipation 04/11/2017 Vitamin D deficiency 03/13/2019 Migraine with aura and with status migrainosus, not intractable ([facility]) 05/27/2020 Mixed anxiety and depressive [...] tube, bilateral Adjustment disorder with depressed mood ([facility]) 12/11/2019 Allergic rhinitis unspecified seasonality, [...] nursing note reviewed. Exam conducted with a recreation therapist present. Vitals: Estimated body mass index is [...] was performed and patient is 0cm dilated. Hunter faxed to pharmacy. Orders Placed This Encounter Procedures CULTURE, GROUP B STREP WITH SUSCEPTIBLITY POCT urinalysis dipstick manually resulted Follow Up: Patient is to return to office in 1 week for routine OB appointment Documented by Tracey Mark LPN on behalf of: Shaw Rojo DO documented in this encounter [facility] 03-26-2024 History of Presen t illness Narrative [...] Date Noted Attention deficit hyperactivity disorder (ADHD) ([facility]) 08/30/2022 Bipolar II disorder ([facility]) 08/30/2022 Acute non intractable tension-type headache 12/11/2019 Adjustment disorder with depressed mood ([facility]) 12/11/2019 Allergic rhinitis 11/23/2018 Amenorrhea 02/23/2021 Anxiety 03/23/2016 Attention deficit 03/04/2023 Chronic fatigue 03/04/2023 Chronic gastritis without bleeding 03/04/2023 Dysfunction of both eustachian tubes 12/07/2018 Dyspareunia due to medical condition in female 03/04/2023 Gastritis and duodenitis 06/03/2015 Grieving ([facility]) 03/04/2023 Infertility, female 03/04/2023 Menstrual cramps 07/04/2017 Pelvic congestion syndrome 03/04/2023 Slow transit constipation 04/11/2017 Vitamin D deficiency 03/13/2019 Migraine with aura and with status migrainosus, not intractable ([facility]) 05/27/2020 Mixed anxiety and depressive disorder 12/25/2019 [...] tube, bilateral Adjustment disorder with depressed mood ([facility]) 12/11/2019 Allergic rhinitis unspecified seasonality, unspecified trigger [...] of: MARQUISE Scott documented in this encounter [facility] 03-08-2024 History of Presen t illness Narrative [...] Date Noted Attention deficit hyperactivity disorder (ADHD) ([facility]) 08/30/2022 Bipolar II disorder ([facility]) 08/30/2022 Acute non intractable tension-type headache 12/11/2019 Adjustment disorder with depressed mood ([facility]) 12/11/2019 Allergic rhinitis 11/23/2018 Amenorrhea 02/23/2021 Anxiety 03/23/2016 Attention deficit 03/04/2023 Chronic fatigue 03/04/2023 Chronic gastritis without bleeding 03/04/2023 Dysfunction of both eustachian tubes 12/07/2018 Dyspareunia due to medical condition in female 03/04/2023 Gastritis and duodenitis 06/03/2015 Grieving ([facility]) 03/04/2023 Infertility, female 03/04/2023 Menstrual cramps 07/04/2017 Pelvic congestion syndrome 03/04/2023 Slow transit constipation 04/11/2017 Vitamin D deficiency 03/13/2019 Migraine with aura and with status migrainosus, not intractable ([facility]) 05/27/2020 Mixed anxiety and depressive [...] tube, bilateral Adjustment disorder with depressed mood ([facility]) 12/11/2019 Allergic rhinitis unspecified seasonality, [...] nursing note reviewed. Exam conducted with a recreation therapist present. Vitals: Estimated body mass index is [...] like for order to be sent to [facility] so she did not have to drive back to [place]. Informed patient that order would be sent to [facility] Scheduling for her to go give urine sample. --ss Documented by Sera Parsons LPN on behalf of: Shaw Rojo DO documented in this encounter [facility] 02-23-2024 History of Presen t illness Narrative [...] Date Noted Attention deficit hyperactivity disorder (ADHD) ([facility]) 08/30/2022 Bipolar II disorder ([facility]) 08/30/2022 Acute non intractable tension-type headache 12/11/2019 Adjustment disorder with depressed mood ([facility]) 12/11/2019 Allergic rhinitis 11/23/2018 Amenorrhea 02/23/2021 Anxiety 03/23/2016 Attention deficit 03/04/2023 Chronic fatigue 03/04/2023 Chronic gastritis without bleeding 03/04/2023 Dysfunction of both eustachian tubes 12/07/2018 Dyspareunia due to medical condition in female 03/04/2023 Gastritis and duodenitis 06/03/2015 Grieving ([facility]) 03/04/2023 Infertility, female 03/04/2023 Menstrual cramps 07/04/2017 Pelvic congestion syndrome 03/04/2023 Slow transit constipation 04/11/2017 Vitamin D deficiency 03/13/2019 Migraine with aura and with status migrainosus, not intractable ([facility]) 05/27/2020 Mixed anxiety and depressive disorder 12/25/2019 [...] tube, bilateral Adjustment disorder with depressed mood ([facility]) 12/11/2019 Allergic rhinitis unspecified seasonality, unspecified trigger [...] of: MARQUISE Scott documented in this encounter [facility] 02-07-2024 History of Presen t illness Narrative [...] Date Noted Attention deficit hyperactivity disorder (ADHD) ([facility]) 08/30/2022 Bipolar II disorder ([facility]) 08/30/2022 Acute non intractable tension-type headache 12/11/2019 Adjustment disorder with depressed mood ([facility]) 12/11/2019 Allergic rhinitis 11/23/2018 Amenorrhea 02/23/2021 Anxiety 03/23/2016 Attention deficit 03/04/2023 Chronic fatigue 03/04/2023 Chronic gastritis without bleeding 03/04/2023 Dysfunction of both eustachian tubes 12/07/2018 Dyspareunia due to medical condition in female 03/04/2023 Gastritis and duodenitis 06/03/2015 Grieving ([facility]) 03/04/2023 Infertility, female 03/04/2023 Menstrual cramps 07/04/2017 Pelvic congestion syndrome 03/04/2023 Slow transit constipation 04/11/2017 Vitamin D deficiency 03/13/2019 Migraine with aura and with status migrainosus, not intractable ([facility]) 05/27/2020 Mixed anxiety and depressive disorder 12/25/2019 [...] tube, bilateral Adjustment disorder with depressed mood ([facility]) 12/11/2019 Allergic rhinitis unspecified seasonality, unspecified trigger [...] nursing note reviewed. Exam conducted with a recreation therapist present. Vitals: Estimated body mass index is [...] of: MARQUISE Scott documented in this encounter [facility] 01-12-2024 History of Presen t illness Narrative [...] Date Noted Attention deficit hyperactivity disorder (ADHD) ([facility]) 08/30/2022 Bipolar II disorder ([facility]) 08/30/2022 Acute non intractable tension-type headache 12/11/2019 Adjustment disorder with depressed mood ([facility]) 12/11/2019 Allergic rhinitis 11/23/2018 Amenorrhea 02/23/2021 Anxiety 03/23/2016 Attention deficit 03/04/2023 Chronic fatigue 03/04/2023 Chronic gastritis without bleeding 03/04/2023 Dysfunction of both eustachian tubes 12/07/2018 Dyspareunia due to medical condition in female 03/04/2023 Gastritis and duodenitis 06/03/2015 Grieving ([facility]) 03/04/2023 Infertility, female 03/04/2023 Menstrual cramps 07/04/2017 Pelvic congestion syndrome 03/04/2023 Slow transit constipation 04/11/2017 Vitamin D deficiency 03/13/2019 Migraine with aura and with status migrainosus, not intractable ([facility]) 05/27/2020 Mixed anxiety and depressive [...] tube, bilateral Adjustment disorder with depressed mood ([facility]) 12/11/2019 Allergic rhinitis unspecified seasonality, [...] nursing note reviewed. Exam conducted with a recreation therapist present. Vitals: Estimated body mass index is [...] by Sera Parsons LPN on behalf of: Shaw Rojo DO documented in this encounter [facility] 12-14-2023 History of Presen t illness Narrative [...] Date Noted Attention deficit hyperactivity disorder (ADHD) ([facility]) 08/30/2022 Bipolar II disorder ([facility]) 08/30/2022 Acute non intractable tension-type headache 12/11/2019 Adjustment disorder with depressed mood ([facility]) 12/11/2019 Allergic rhinitis 11/23/2018 Amenorrhea 02/23/2021 Anxiety 03/23/2016 Attention deficit 03/04/2023 Chronic fatigue 03/04/2023 Chronic gastritis without bleeding 03/04/2023 Dysfunction of both eustachian tubes 12/07/2018 Dyspareunia due to medical condition in female 03/04/2023 Gastritis and duodenitis 06/03/2015 Grieving ([facility]) 03/04/2023 Infertility, female 03/04/2023 Menstrual cramps 07/04/2017 Pelvic congestion syndrome 03/04/2023 Slow transit constipation 04/11/2017 Vitamin D deficiency 03/13/2019 Migraine with aura and with status migrainosus, not intractable ([facility]) 05/27/2020 Mixed anxiety and depressive [...] tube, bilateral Adjustment disorder with depressed mood ([facility]) 12/11/2019 Allergic rhinitis unspecified seasonality, [...] nursing note reviewed. Exam conducted with a recreation therapist present. Vitals: Estimated body mass index is [...] of: MARQUISE Scott documented in this encounter [facility] 01-10-2023 Note Patient Education Ma terials Follows:Disease [...] these instructions at home: Medicines ? Take dkfb-hin-ipkwvmn and prescription medicines only as told by [...] and water are not available, use hand singing waiter or waitress. Contact a health care provider if: ? [...] can cause a sore throat. ? Take tups-nwc-zwopkki medicines only as told by your health [...] provider. Document Revised: 07/08/2021 Document Reviewed: 07/08/2021 [employer] 360 Patient Education ? 2022 [email or web address] Viral Illness, Adult Viruses are tiny [...] person who is (more content not included)... [facility] Evaluation note Diagnosis Second trimester state, incidental [...] UTI symptoms [facility] Diagnosis 38 weeks gestation of Third trimester state, incidental Excessive growth affecting management of , antepartum, [...] content) DATE CREATED AUTHOR 12/15/2020 [facility] DATE CREATED AUTHOR AUTHOR'S ORGANIZ ATION 06/23/2022 [facility] Me dical Specialist DATE CREATED AUTHOR AUTHOR'S ORGANIZ ATION 10/13/2023 [facility] DATE CREATED AUTHOR AUTHOR'S ORGANIZ ATION 04/20/2024 [facility] dical Specialists EPIC Care Teams (unrecognized sec tion and content) Rag Cutting Machine Tender Relationship Specialty Start Date End Date Jeannie Reynolds MD [address] [place] [address] PCP - General Family Medicine 09/21/22 Sarah Nelson NP [address] [place] [address] Nurse Practitioner Family Medicine 09/21/22 Rag Cutting Machine Tender Relationship Specialty Start Date End Date Jeannie Reynolds MD [address] [place] [address] PCP - General Family Medicine 09/21/22 Sarah Nelson NP [address] [place] [address] Nurse Practitioner Family Medicine 09/21/22 Rag Cutting Machine Tender Relationship Specialty Start Date End Date Jeannie Reynolds MD [address] [place] [address] PCP - General Family Medicine 09/21/22 Sarah Nelson FELLMONGERING MACHINE OPERATOR [address] [place] [address] Nurse Practitioner Family Medicine 09/21/22 Rag Cutting Machine Tender Relationship Specialty Start Date End Date Jeannie Renyolds MD [address] [place] [address] PCP - General Family Medicine 09/21/22 Anila Schneider APRN-ELECTRICAL ENGINEERING TECHNOLOGIST [address] [place] [address] PCP - [facility] 08/23/22 Sarah Nelson NP [address] [place] [address] Nurse Practitioner Family Medicine 09/21/22 Rag Cutting Machine Tender Relationship Specialty Start Date End Date Jeannie Reynolds MD [address] [place] [address] PCP - General Family Medicine 09/21/22 Anila Schneider, YIELD IMPROVEMENT ENGINEER-ELECTRICAL ENGINEERING TECHNOLOGIST [address] [facility] [address] [place] [address] PCP - [facility] 08/23/22 Sarah Nelson NP [address] [place] [address] Nurse Practitioner Family Medicine 09/21/22 Rag Cutting Machine Tender Relationship Specialty Start Date End Date Jeannie Reynolds MD [address] [place] [address] PCP - General Family Medicine 09/21/22 Anila Schneider, YIELD IMPROVEMENT ENGINEER-ELECTRICAL ENGINEERING TECHNOLOGIST [address] [address] PCP - [employer] 08/23/22 Sarah Nelson NP [address] [place] [address] Nurse Practitioner Family Medicine 09/21/22 Rag Cutting Machine Tender Relationship Specialty Start Date End Date Jeannie Reynolds MD [address] [place] [address] PCP - General Family Medicine 09/21/22 Anila Schneider, YIELD IMPROVEMENT ENGINEER-ELECTRICAL ENGINEERING TECHNOLOGIST [address] [facility] [address] [place] [address] PCP - [facility] 08/23/22 Sarah Nelson, MASON [address] [place] [address] Nurse Practitioner Family Medicine 09/21/22 Rag Cutting Machine Tender Relationship Specialty Start Date End Date Jeannie Reynolds MD [address] [place] [address] PCP - General Family Medicine 09/21/22 Anila Schneider, YIELD IMPROVEMENT ENGINEER-ELECTRICAL ENGINEERING TECHNOLOGIST [address] [address] PCP - [facility] 08/23/22 Sarah Nelson, FELLMONGERING MACHINE OPERATOR [address] [place] [address] Nurse Practitioner Family Medicine 09/21/22 Rag Cutting Machine Tender Relationship Specialty Start Date End Date Jeannie Reynolds MD [address] [place] [address] PCP - General Family Medicine 09/21/22 Anila Schneider, YIELD IMPROVEMENT ENGINEER-ELECTRICAL ENGINEERING TECHNOLOGIST [address] [facility] [address] [place] [address] PCP - [employer] 08/23/22 Sarah Nelson, MASON [address] [place] [address] Nurse Practitioner Family Medicine 09/21/22 Rag Cutting Machine Tender Relationship Specialty Start Date End Date Jeannie Reynolds MD [address] [place] [address] PCP - General Family Medicine 09/21/22 Anila Schneider, YIELD IMPROVEMENT ENGINEER-ELECTRICAL ENGINEERING TECHNOLOGIST [address] [facility] [address] [place] [address] PCP - [employer] 08/23/22 Sarah Nelson FELLMONGERING MACHINE OPERATOR [address] [place] [address] Nurse Practitioner Family Medicine 09/21/22 Rag Cutting Machine Tender Relationship Specialty Start Date End Date Jeannie Reynolds MD [address] [place] [address] PCP - General Family Medicine 09/21/22 Anila Schneider, YIELD IMPROVEMENT ENGINEER-ELECTRICAL ENGINEERING TECHNOLOGIST [address] [address] PCP - [employer] 08/23/22 Sarah Nelson FELLMONGERING MACHINE OPERATOR [address] [place] [address] Nurse Practitioner Family Medicine 09/21/22 Rag Cutting Machine Tender Relationship Specialty Start Date End Date Jeannie Reynolds MD [address] [place] [address] PCP - General Family Medicine 09/21/22 Anila Schneider, YIELD IMPROVEMENT ENGINEER-ELECTRICAL ENGINEERING TECHNOLOGIST 112 [facility] 160 [place] [address] PCP - [place] [employer] 08/23/22 Sarah Nelson NP [address] [place] [address] Nurse Practitioner Family Medicine 09/21/22 Rag Cutting Machine Tender Relationship Specialty Start Date End Date Jeannie Reynolds MD [address] [place] [address] PCP - General Family Medicine 09/21/22 Anila Schneider, YIELD IMPROVEMENT ENGINEER-ELECTRICAL ENGINEERING TECHNOLOGIST [address] [address] PCP - [place] [employer] 08/23/22 Sarah Nelson NP [address] [place] [address] Nurse Practitioner Family Medicine 09/21/22 Rag Cutting Machine Tender Relationship Specialty Start Date End Date Jeannie Reynolds MD [address] [place] [address] PCP - General Family Medicine 09/21/22 Anila Schneider, YIELD IMPROVEMENT ENGINEER-ELECTRICAL ENGINEERING TECHNOLOGIST [address] [address] PCP - [place] [employer] 08/23/22 Sarah Nelson NP [address] [place] [address] Nurse Practitioner Family Medicine 09/21/22 Rag Cutting Machine Tender Relationship Specialty Start Date End Date Jeannie Reynolds MD [address] [place] [address] PCP - General Family Medicine 09/21/22 Anila Schneider, YIELD IMPROVEMENT ENGINEER-[facility] [address] [place] [address] 160 [place] [address] PCP - [place] [employer] 08/23/22 Sarah Nelson, MASON [address] [facility] [place] [address] Nurse Practitioner Family Medicine 09/21/22 Rag Cutting Machine Tender Relationship Specialty Start Date End Date Jeannie Reynolds MD [address] [facility] [place] [address] PCP - General Family Medicine 09/21/22 Anila Schneider [facility] [address] [place] [address] PCP - [place] [employer] 08/23/22 Sarah Nelson, FELLMONGERING MACHINE OPERATOR [address] [facility] [place] [address] Nurse Practitioner Family Medicine 09/21/22 Rag Cutting Machine Tender Relationship Specialty Start Date End Date Jeannie Reynolds MD [address] [place] [address] PCP - General Family Medicine 09/21/22 Sarah Nelson, FELLMONGERING MACHINE OPERATOR [address] [place] [address] Nurse Practitioner Family Medicine 09/21/22 Rag Cutting Machine Tender Relationship Specialty Start Date End Date Jeannie Reynolds MD [address] [place] [address] PCP - General Family Medicine 09/21/22 Sarah Nelson NP [address] [place], [place] [id number] Nurse Practitioner [facility] 09/21/22 Rag Cutting Machine Tender Relationship Specialty Start Date End Date Jeannie Reynolds MD [address] [place], [place] [id number] PCP - General Family Medicine 09/21/22 Anila Schneider APRN-ELECTRICAL ENGINEERING TECHNOLOGIST 112 [facility] 160 [place] [address] PCP - [facility] 08/23/22 Sarah Nelson FELLMONGERING MACHINE OPERATOR [address] [place], [place] [id number] Nurse Practitioner Family [facility] 09/21/22 Reason for Visit (unrecogniz ed section [...] BE BASED ON THE PRIMARY CLINICAL RECORDS. [employer] provides no warranty or guarantee of the accuracy or completeness of information in this document.
[2024-04-26 12:41] VITALS: BP 127/78; PULSE 100
--- NOTE | 2024-04-26 12:50 | US_ITS ---
[address] [address] Patient Name: BRYNN WALLACE MRN: [id number] date: 2000 Sex: F Assigned Patient Location: [facility] Current Patient Location: [facility] Accession/Order Number: [id number] Exam Date: 04/26/2024 13:00 Report Date: 04/26/2024 13:31 At the request of: WALDO CAMP Procedure: US OB BPP w non-stress EXAMINATION: US OB BPP w non-stress HISTORY: excessive growth COMPARISON: No relevant comparison available. TECHNIQUE: Ultrasound biophysical profile was performed in the radiology department. non-reactive stress testing was performed by nursing staff in the birthing center. FINDINGS: BREATHING MOVEMENTS: 2 GROSS BODY MOVEMENTS: 2 TONE: 2 QUALITATIVE AMNIOTIC FLUID VOLUME: 2 PRESENTATION: CEPHALIC HEART RATE: 122.17 bpm AMNIOTIC FLUID VOLUME: 6.3 GESTATIONAL AGE: 39 weeks 4 days US/US OB BPP w non-stress IMPRESSION: Total biophysical profile score: 8 Oligohydramnios Electronically authenticated by: HAYLIE ASCENCIO Date: 04/26/2024 13:31
== END 2024-04-26 13:45 | disposition home or self-care (01) ==
LOC: FBCO 03:38 → FBC 12:36
PROVIDERS: PCP Family Medicine; Visit Provider Obstetrics & Gynecology
DX: O36.63X0 Maternal care for excessive fetal growth, third trimester, not applicable or unspecified (principal); Z3A.39 39 weeks gestation of pregnancy
CPT/HCPCS: 76818

== ENCOUNTER 2024-04-26 15:44 | Inpatient (IN) | payer BC, OTHER, SELFPAY ==
[2024-04-26] VITALS (12 sets, daily range): BP systolic 95–121; BP diastolic 50–76; PULSE 72–96
[2024-04-26 16:22] LABS: Hematocrit 37.2 % (36.0-48.0); Mean Corpuscular HGB Conc 32.3 g/dL (29.9-35.2); Mean Corpuscular Hemoglobin 25.9 pg (26.7-34.0); Mean Corpuscular Volume 80.2 fL (81.0-99.0); Mean Platelet Volume 9.4 fL (9.5-13.5); Platelet Count 370 10^3/uL (150-450); Red Blood Count 4.64 10^6/uL (4.20-5.40); Red Cell Distribution Width 13.2 % (11.0-15.0); White Blood Count 15.9 10^3/uL (4.0-11.0)
[2024-04-26 16:46] LABS: Amphetamine Screen Urine NEGATIVE (NEGATIVE); Barbiturates Screen Urine NEGATIVE (NEGATIVE); Benzodiazepines Screen Urine NEGATIVE (NEGATIVE); Buprenorphine Screen Urine NEGATIVE (NEGATIVE); Cannabinoid Screen Urine NEGATIVE (NEGATIVE); Cocaine Screen Urine NEGATIVE (NEGATIVE); Methadone Screen Urine NEGATIVE (NEGATIVE); Methamphetamines Screen Urine NEGATIVE (NEGATIVE); Opiate Screen Urine NEGATIVE (NEGATIVE); Oxycodone Screen Urine NEGATIVE (NEGATIVE); Phencyclidine Screen Urine NEGATIVE (NEGATIVE); Tricyclic Antidepressant Urine NEGATIVE (NEGATIVE)
[2024-04-26] MEDS: DINOPROSTONE 10 MG VAG INSERT.ER VAGINAL (17:30)
[2024-04-26] MEDS: ONDANSETRON PF 4 MG/2 ML VIAL IV (17:36)
[2024-04-26] MEDS: ACETAMINOPHEN 500 MG TABLET 1000 MG PO (20:06)
[2024-04-26] MEDS: CALCIUM CARBONATE 500 MG (200MG ELEMENTAL) TAB CHEW 1000 MG PO ×2 (20:06→23:51)
[2024-04-27] VITALS (70 sets, daily range): BP systolic 93–199; BP diastolic 50–101; PULSE 57–157; TEMP 35.6–36.8
[2024-04-27] MEDS: ONDANSETRON PF 4 MG/2 ML VIAL IV ×2 (02:44→09:12)
[2024-04-27] MEDS: NALBUPHINE HCL 10 MG/ML AMPULE IV ×2 (02:44→07:45)
[2024-04-27] MEDS: 0.9 % SODIUM CHLORIDE 1,000 ML 125 ML IV (06:00)
[2024-04-27] MEDS: OXYTOCIN/0.9 % SODIUM CHLORIDE 10 UNITS/500 ML PLAST..BAG 6 UNIT IV (06:14)
[2024-04-27] MEDS: CALCIUM CARBONATE 500 MG (200MG ELEMENTAL) TAB CHEW 1000 MG PO (09:10)
[2024-04-27] MEDS: 0.9 % SODIUM CHLORIDE 1,000 ML 1000 ML IV (09:45)
[2024-04-27] MEDS: ROPIVACAINE HCL/PF 400 MG/200 ML PREMIX 6 MG EPIDURAL (10:22)
--- NOTE | 2024-04-27 13:19 | PM.OBPRCVD ---
Procedure Intrapartal events: None Induction method: per misoprostol protocol Delivery augmentation: rupture of membranes and pitocin Delivery monitor: external FHT and external uterine Route of delivery: Episiotomy Description: none L&D Laceration Description: none Estimated blood loss (mL): 350 Anesthesia type: Epidural Disposition: floor Delivery date: 04/27/24 Gender: female presentation: vertex Placental delivery description: Spontaneous cord description: 3 Vessels and Nuchal Cord
[2024-04-27] MEDS: IBUPROFEN 600 MG TABLET PO ×2 (13:46→22:44)
[2024-04-27] MEDS: BENZOCAINE/MENTHOL 85 GRAM SPRAY BOTTLE 1 APPLIC TOPICAL (13:46)
[2024-04-27] MEDS: OXYTOCIN/0.9 % SODIUM CHLORIDE 20 UNITS/1,000 ML PLAST..BAG 125 UNIT IV (13:46)
[2024-04-28 00:18] VITALS: BP 128/79; PULSE 80; TEMP 36.6
[2024-04-28 06:35] LABS: Basophils Percent Auto 0.2 % (0.2-2.0); Eosinophils Percent Auto 0.2 % (0.9-7.0); Hematocrit 32.2 % (36.0-48.0); Hemoglobin 10.2 g/dL (12.0-16.0); Immature Granulocytes Abs Auto 0.08 10^3/uL (0.00-0.03); Immature Granulocytes Pct Auto 0.4 % (0.0-0.5); Lymphocytes Absolute Auto 3.1 10^3/uL (1.2-3.8); Lymphocytes Percent Auto 16.9 % (20.5-60.0); Mean Corpuscular HGB Conc 31.7 g/dL (29.9-35.2); Mean Corpuscular Volume 82.1 fL (81.0-99.0); Mean Platelet Volume 9.5 fL (9.5-13.5); Monocytes Absolute Auto 1.1 10^3/uL (0.3-0.8); Monocytes Percent Auto 6.1 % (1.7-12.0); Neutrophils Absolute Auto 14.2 10^3/uL (1.4-6.5); Neutrophils Percent Auto 76.2 % (43.0-75.0); Platelet Count 309 10^3/uL (150-450); Red Blood Count 3.92 10^6/uL (4.20-5.40); Red Cell Distribution Width 13.7 % (11.0-15.0); White Blood Count 18.6 10^3/uL (4.0-11.0)
[2024-04-28 08:38] VITALS: BP 127/62; PULSE 86
[2024-04-28 08:40] VITALS: TEMP 36.8
[2024-04-28] MEDS: IBUPROFEN 600 MG TABLET PO ×3 (08:41→23:50)
[2024-04-28] MEDS: DOCUSATE SODIUM 100 MG CAPSULE PO (08:41)
--- NOTE | 2024-04-28 12:02 | PM.OBPN ---
OB - PN: Subj Subjective Patient comments: no complaints [place] status: doing well Exam Constitutional Vital Signs, click to edit/add: Last Vital Signs Temp 98.3 F 04/28/24 08:40 Pulse 86 04/28/24 08:38 Resp 14 04/28/24 08:40 BP 127/62 04/28/24 08:38 O2 Del Method Room Air 04/28/24 08:40 Documenting provider has reviewed patient's vital signs: yes Common normals: no apparent distress Orientation/consciousness: Yes awake, Yes oriented to person, Yes oriented to place and Yes oriented to time HENMT Common normals: normocephalic Eye Common normals: EOMs intact bilaterally General eye: normal appearance of both eyes Neck & C-Spine Common normals: full ROM General: normal visual inspection Lymph Lymphatic: no lymphadenopathy noted Chest Common normals: inspection of chest normal Respiratory Common normals: normal respiratory effort, no retractions, no use of accessory muscles, clear to auscultation bilaterally and percussion normal Cardio Common normals: regular rate and regular rhythm Rate: regular rate GI Common normals: Normal to inspection, nondistended, normoactive bowel sounds present Palpation: soft Common normals: no CVA tenderness Back & Pelvis Common normals: no CVA tenderness General back: CVA tenderness Extremity Common normals: normal to inspection Neuro Common normals: oriented x3 Sensorium/orientation: awake, alert, oriented to person, oriented to place and oriented to time Psych Common normals: mental status grossly normal, thought process normal, cooperative, affect normal, speech normal, activity/motor behavior normal, denies hallucinations, denies homicidal ideation and denies suicidal ideation Attitude: calm Results Labs Labs: Short CBC 04/28/24 Range/Units 06:14 WBC 18.6 H (4.0-11.0) 10^3/uL Hgb 10.2 L (12.0-16.0) g/dL Hct 32.2 L (36.0-48.0) % Plt Count 309 (150-450) 10^3/uL OB - PN: A/P Plan - Vaginal Delivery day: 1 Plan: routine care Time Spent with Patient Time: Total time spent is greater than 50% in coordination of care (as documented) at patient's floor/unit and/or counseling patient: Total time spent with greater than 50% in coordination of care (as documented) at patient's floor/unit and/or counseling patient: less than 15 minutes
[2024-04-28 13:20] VITALS: BP 119/67; PULSE 95; TEMP 36.7
[2024-04-28] MEDS: ACETAMINOPHEN 500 MG TABLET 1000 MG PO (18:23)
[2024-04-28 23:47] VITALS: BP 123/67; PULSE 85; TEMP 35.9
[2024-04-29] MEDS: ACETAMINOPHEN 500 MG TABLET 1000 MG PO (07:43)
[2024-04-29] MEDS: IBUPROFEN 600 MG TABLET PO (07:43)
[2024-04-29] MEDS: DOCUSATE SODIUM 100 MG CAPSULE PO (07:43)
[2024-04-29 07:45] VITALS: BP 126/80; PULSE 104; TEMP 36.2
[2024-04-29 07:46] VITALS: TEMP 36.2
--- NOTE | 2024-04-29 09:10 | P.OBPN_ITS ---
OB - PN: Subj Subjective Patient comments: no complaints and pain well controlled [place] status: doing well Exam Constitutional Vital Signs, click to edit/add: Last Vital Signs Temp 97.2 F L 04/29/24 07:46 Pulse 104 H 04/29/24 07:45 Resp 14 04/29/24 07:45 BP 126/80 04/29/24 07:45 O2 Del Method Room Air 04/29/24 07:45 Documenting provider has reviewed patient's vital signs: yes Common normals: no apparent distress Respiratory Common normals: clear to auscultation bilaterally Cardio Common normals: regular rate and regular rhythm GI Common normals: Normal to inspection, nondistended, normoactive bowel sounds present Extremity Common normals: no calf tenderness OB - PN: A/P Plan - day: 1 Plan: routine postop care, discharge home and other Comment: fu 1wk Time Spent with Patient Time: Total time spent is greater than 50% in coordination of care (as documented) at patient's floor/unit and/or counseling patient: Total time spent with greater than 50% in coordination of care (as documented) at patient's floor/unit and/or counseling patient: less than 15 minutes
== END 2024-04-29 10:55 | disposition home or self-care (01) | DRG 807 ==
PROVIDERS: Admitting Provider Obstetrics & Gynecology; PCP Family Medicine; Visit Provider Obstetrics & Gynecology
DX: O99.334 Smoking (tobacco) complicating childbirth (principal); Z37.0 Single live birth; F17.290 Nicotine dependence, other tobacco product, uncomplicated; O69.81X0 Labor and delivery complicated by cord around neck, without compression, not applicable or unspecified; Z3A.39 39 weeks gestation of pregnancy; O36.63X0 Maternal care for excessive fetal growth, third trimester, not applicable or unspecified
CPT/HCPCS: 36415; 51702; 59050; 59410; 76818; 80307; 85025; 85027; 86850; 86900; 86901; J2300; J2405; J2795; J3010

== ENCOUNTER 2025-01-25 09:31 | Outpatient (OUT) | payer BC, OTHER, SELFPAY ==
--- OUTSIDE RECORDS SUMMARY | 2025-01-21 16:00 | XMS_ITS | Encounter Summary ---
Author Organization [facility] Healthcare Address [address] [place] [address] Care Team Providers Care Die Cutting Machine Operator Name Role Phone Jeannie Reynolds MD Primary Care Provider [phone] Sarah Nelson NP Unavailable [phone] Jeannie Reynolds MD Unavailable [phone] Reason for Visit * Reason Comments Chest Pain Been having lung kenn n for about a month, that heat helped with the pain. The pain then traveled to [facility], pt is 8 weeks Encounter Details Date Type Department Care Team (Latest Contact Info) Description 01/21/2025 4:00 PM EDT Office Visit [facility] Family Medicine [address] [place] [address] Silva Olmstead NP [address] [place] [address] Gastroesophageal reflux disease without esophagitis (Primary Dx) Social History Tobacco Use Types Packs/Day Years Used Date Smoking Tobacco: Former Cigarettes Smokeless Tobacco: Never Comments:Vapes nicotine jaylene y Alcohol Use Standard Drinks/Week Comments Not Currently 0 (1 standard drink = 0.6 oz pure alcohol) Alcohol: 1 or 2 drinks on a typical day/monthly or less Caffeine: 1 cup daily AUDIT-C Answer Date Recorded Q1: How often do you have a drink containing alc ohol? Monthly or less 08/30/2022 Q2: How many drinks containi ng alcohol do you have on a typical day when you are drinking? 1 or 2 08/30/2022 Q3: How often do you have si x or more drinks on one occasion? 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 Question Answer Date of Assessment Author Little interest or pleasure in doing things Not at all 01/21/2025 4:09 PM EDT Trudi Lozano M A Feeling down, depressed, or hopeless Not at all 01/21/2025 4:09 PM EDT Trudi Lozano M A Patient Health Questionnaire -2 Score 0 01/21/2025 4:09 PM EDT Trudi Lozano M A documented as of this encounter Progress Notes * Silva Olmstead NP - 01/21/2025 4:00 PM EDT Images from the original note were not included. Subjective ?Quick Links Last Note in Specialty Snapshot Edit RFV/CC Edit Screenings Current Meds Patient ID: Azucena Gonzalez is a 24 y.o. female who presents for Chest Pain (Been having lung pain for about a month, that heat helped with the pain. The pain then traveled to [facility], pt is 8 weeks ). HPI History of Present Illness Presents to the office today with complaints of a burning pain in her chest which has been going onfor about a month. She reported she was initially sick several weeks ago so wasn't sure if she developed pneumonia or something. Hasn't taken anything OTC. Worse when lying down. She had symptoms like this in July, went to the hospital, work up was negative, was started on omeprazole but she didn't feel like that helped. She feels like tums has been the only thing that helped with her heartburn in the past. She would like a refill of the zofran. History of gastritis. ?Quick Review Review Full History Meds - ondansetron ODT (Zofran-ODT) 4 MG disintegrating tablet famotidine (Pepcid) 20 MG tablet ibuprofen 800 MG tablet --- PMH - Acne Acute dysfunction of Eustachian tube, bilateral Adjustment disorder with depressed mood Allergic rhinitis Anxiety Ear pain, referred, bilateral Endometriosis Ovarian cyst PCOS (polycystic ovarian syndrome) Objective ?Quick Links Add Vitals Timeline (Adult) Labs Imaging Results Review Trend Vitals ?? Avoid pulling in long tables of results. Comment on relevant results to support your medical decision making. BP 116/64 (BP Location: Left arm, Patient Position: Sitting, BP Cuff Size: Large adult) Pulse 95 Wt 250 lb SpO2 99% BMI 42.91 kg/m?? Physical Exam Vitals reviewed. Constitutional: Appearance: She is obese. HENT: Head: Normocephalic and atraumatic. Nose: Nose normal. Mouth/Throat: Mouth: Mucous membranes are moist. Eyes: Pupils: Pupils are equal, round, and reactive to light. Cardiovascular: Rate and Rhythm: Normal rate and regular rhythm. Pulses: Normal pulses. Heart sounds: Normal heart sounds. Pulmonary: Effort: Pulmonary effort is normal. Breath sounds: Normal breath sounds. Musculoskeletal: Cervical back: Normal range of motion and neck supple. Right lower leg: No edema. Skin: General: Skin is warm and dry. Capillary Refill: Capillary refill takes less than 2 seconds. Findings: No rash. Neurological: General: No focal deficit present. Mental Status: She is alert and oriented to person, place, and time. Physical Exam ?Quick Links Full Problem List ADHD Allergy Cardiology Chronic Pain GI Headache Assessment & Plan Gastroesophageal reflux disease without esophagitis Orders: famotidine (Pepcid) 20 MG tablet; Take 1 tablet (20 mg) by mouth in the morning and 1 tablet (20 mg) before bedtime. -symptoms sound more heartburn/gastritis related. Will start her on pepcid to help manage symptoms. -did offer a chest xray to rule out pneumonia as she was concerned for it but she declines. Assessment & Plan documented in this encounter Plan of Treatment Upcoming Encounters Date Type Department Care Team (Late st Contact Info) Description 01/25/2025 10:00 AM EDT Initial [facility] [address] [place] [address] [place] [phone] documented as of this encounter Visit Diagnoses Diagnosis Gastroesophageal reflux disease without esophagitis- Primary Esophageal reflux Missed menses Positive urine test ([facility]) documented in this encounter Additional Health Concerns Assessment Noted Time PHQ-9 Depression Total Score: 14 023 10:43 AM EST documented as of this encounter Care Teams Die Cutting Machine Operator Relationship Specialty Start Date End Date Jeannie Reynolds MD [address] [place] [address] PCP - General Family Medicine 09/21/22 Jeannie Reynolds MD [address] [place] [address] PCP - Deysi Mora 08/23/24 Sarah Nelson NP [address] [place] [address] Nurse Practitioner Family Medicine 09/21/22 documented as of this encounter
--- NOTE | 2025-01-25 09:33 | US_ITS ---
[facility] [place] [id number] Patient Name: BRYNN WALLACE MRN: [id number] date: 2000 Sex: F Assigned Patient Location: US Current Patient Location: US Accession/Order Number: [id number] Exam Date: 01/25/2025 09:36 Report Date: 01/25/2025 14:26 At the request of: WALDO CAMP DO Procedure: US OB transvaginal OB ultrasound. Reason for exam:Missed menses. Comparison:None Technique: Transvaginal imaging of the gravid uterus was obtained. Findings: Single live intrauterine 8 weeks 6 days by CRL JAYE 08/29/2025. heart rate 163 bpm. No free fluid. Right ovary appears unremarkable. Corpus luteum left ovary. US/US OB transvaginal Impression: Single live intrauterine 8 weeks 6 days by CRL, JAYE 08/29/2025. Impression dictated by: Jordin Cheney Jr. [email or web address] 01/25/2025 2:26 PM Dictation Location: [place] [address] Electronically authenticated by: [id number] Y Date: 01/25/2025 14:26
--- OUTSIDE RECORDS SUMMARY | 2025-01-25 09:33 | XMS_ITS | Encounter Summary ---
Author Organization [facility] Address [address] [place] [address] Care Team Providers Care Netbackup Administrator Name Role Phone Jaennie Reynolds MD Primary Care Provider [phone] Sarah Nelson DRESS DESIGNER Unavailable [phone] Anila Schneider ULTRASONOGRAPHER-TECHNICAL APPLICATIONS SCIENTIST Unavailable Jeannie Reynolds MD Unavailable [phone] Encounter Details Date Type Department Care Team (Late st Contact Info) Description 04/28/2024 Abstract [facility] Family Medicine [address] [place] [address] Leah Azar MD [address] [place] [address] Social History Tobacco Use Types Packs/Day Years Used Date Smoking Tobacco: Former Cigarettes Smokeless Tobacco: Current Comments:Vapes nicotine jaylene y Alcohol Use Standard Drinks/Week Comments Yes 0 (1 standard drink = 0.6 oz [...] Date Recorded Patient Health Questionnaire-2 Score 0 04/05/2024 Comments Yes Sex and Gender Information Value Date Recorded Sex Assigned at Not on file Legal Sex Female 6:48 PM EDT Gender Identity Not on file Sexual Orientation Not on file 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 Not on file documented as of this encounter Plan of Treatment Upcoming Encounters Date Type Department Care Team (Late st Contact Info) Description 01/25/2025 10:00 AM EDT Initial [facility] [address] [address] documented as of this encounter Visit Diagnoses Not on filedocumented in this encounter Additional Health Concerns Assessment Noted Time PHQ-9 Depression Total Score: 14 023 10:43 AM EST documented as of this encounter Care Teams Netbackup Administrator Relationship Specialty Start Date End Date Jeannie Reynolds MD [address] [place] [address] PCP - General Family Medicine 09/21/22 Anila Schneider APRN-TECHNICAL APPLICATIONS SCIENTIST [address] [facility] [address] [place] [address] PCP - [place] [employer] 08/23/22 Jeannie Reynolds MD [address] [place] [address] PCP - [place] [employer] 08/23/24 Sarah Nelson NP [address] [place] [address] Nurse Practitioner Family Medicine 09/21/22 documented as of this encounter
--- OUTSIDE RECORDS SUMMARY | 2025-01-25 09:33 | XMS_ITS | Encounter Summary ---
Author Organization [facility] Address [address] [facility] [place] [address] Care Team Providers Care Public Health Sanitarian Technician Name Role Phone Jeannie Reynolds MD Primary Care Provider [phone] Sarah Nelson NP Unavailable [phone] Jeannie Reynolds MD Unavailable [phone] Encounter Details Date Type Department Care Team ([facility] Contact Info) Description 01/23/2025 Telephone [facility] [address] [place] [address] [place] [address] Sera Parsons LPN Social History Tobacco Use Types Packs/Day Years [...] on file documented as of this encounter Miscellaneous Notes * Telephone Encounter - Sera Parsons LPN - 01/23/2025 9:08 AM EDT Spoke with patient this morning in regards to her upcoming US appointment location changing. PVU and also voiced that she is still having nausea and is already taking Zofran. Informed patient that medication would be sent to pharmacy. Sera Maxwell LPN Per Virginie will send in Reglan. documented in this encounter Plan of Treatment Upcoming Encounters Date Type Department Care Team (Late st Contact Info) Description 01/25/2025 10:00 AM EDT Initial [facility] [address] [place] [address] [place] [phone] documented as of this encounter Visit Diagnoses Diagnosis Nausea/vomiting in ([facility]) Unspecified vomiting of , unspecified as to episode of care Missed menses Positive urine test ([facility]) documented in this encounter Additional Health Concerns Assessment Noted Time PHQ-9 Depression Total Score: 14 023 10:43 AM EST documented as of this encounter Care Teams Public Health Sanitarian Technician Relationship Specialty Start Date End Date Jeannie Reynolds MD [address] [facility] [place] [address] PCP - General Family Medicine 09/21/22 Jeannie Reynolds MD [address] [facility] [place] [address] PCP - [place] [employer] 08/23/24 Sarah Nelson NP [address] [facility] [place] [address] Nurse Practitioner Family Medicine 09/21/22 documented as of this encounter
--- OUTSIDE RECORDS SUMMARY | 2025-01-25 09:33 | XMS_ITS | Encounter Summary ---
Author Organization [facility] Address [address] [place] [address] Care Team Providers Care Chainstitch Sewing Machine Operator Name Role Phone Jeannie Reynolds MD Primary Care Provider [phone] Sarah Nelson DISTRIBUTION DISTRICT SUPERVISOR Unavailable [phone] Kristen Arriaga DISTRIBUTION DISTRICT SUPERVISOR Unavailable [phone] Anila Schneider ASSOCIATE SALES MANAGER-EMAIL CAMPAIGN MANAGER Unavailable Jeannie Reynolds MD Unavailable [phone] Encounter Details Date Type Department Care Team (Late st Contact Info) Description 02/07/2023 Abstract [facility] [address] [address] Shaw Rojo DO [address] [facility] [address] [place], [place] [id number] Social History Tobacco Use Types Packs/Day Years Used Date Smoking Tobacco: Former Cigarettes Alcohol Use Standard Drinks/Week Comments Yes 0 (1 standard drink = 0.6 oz pure alcohol) Alcohol: 1 or 2 drinks on a typical day/monthly or less Caffeine: 1 cup every three days AUDIT-C Answer Date Recorded Q1: How often do you have a drink containing alc ohol? Monthly or less 08/30/2022 Q2: How many drinks containi ng alcohol do you have on a typical day when you are drinking? 1 or 2 08/30/2022 Q3: How often do you have si x or more drinks on one occasion? Never 08/30/2022 Comments Unknown Sex and Gender Information Value [...] AM EDT Initial [facility] [address] [place] [id number] documented as of this encounter Visit Diagnoses Not on filedocumented in this encounter Care Teams Chainstitch Sewing Machine Operator Relationship Specialty Start Date End Date Jeannie Reynolds MD [address] [place] [address] PCP - General Family Medicine 09/21/22 Kristen Arriaga, DISTRIBUTION DISTRICT SUPERVISOR [address] [place] [address] PCP - [facility] 10/23/22 Anila Schneider APRN-EMAIL CAMPAIGN MANAGER [address] [address] PCP - [place] [employer] 08/23/22 Jeannie Reynolds MD [address] [place] [address] PCP - [place] [employer] 08/23/24 Sarah [place] NP [address] [place], [place] [id number] Nurse Practitioner Family Medicine 09/21/22 documented as of this encounter
--- OUTSIDE RECORDS SUMMARY | 2025-01-25 09:33 | XMS_ITS | Encounter Summary ---
Author Organization [facility] Address [address] [place] [address] Care Team Providers Care Taxation Accountant Name Role Phone Jeannie Reynolds MD Primary Care Provider Sarah Nelson NP Unavailable [phone] Jeannie Reynolds MD Unavailable [phone] Encounter Details Date Type Department Care Team (Latest Contact Info) Description 01/21/2025 Travel Social History Tobacco Use Types Packs/Day Years [...] on file documented as of this encounter Functional Status * Over the [...] M A documented as of this encounter Plan of Treatment Upcoming Encounters Date Type Department Care Team (Late st Contact Info) Description 01/25/2025 10:00 AM EDT Initial [facility] [address] [place] [address] [place] [address] documented as of this encounter Visit Diagnoses Not on filedocumented in this encounter Additional Health Concerns Assessment Noted Time PHQ-9 Depression Total Score: 14 023 10:43 AM EST documented as of this encounter Care Teams Taxation Accountant Relationship Specialty Start Date End Date Jeannie Reynolds MD [address] [facility] [place] [address] PCP - General Family Medicine 09/21/22 Jeannie Reynolds MD [address] [facility] [place] [address] PCP - Deysi Mora 08/23/24 Sarah Nelson NP [address] [facility] [place] [address] Nurse Practitioner Family Medicine 09/21/22 documented as of this encounter
--- OUTSIDE RECORDS SUMMARY | 2025-01-25 09:33 | XMS_ITS | Encounter Summary ---
Author Organization [facility] Address [address] [place] [address] Care Team Providers Care Retail Support Specialist Name Role Phone Jeannie Reynolds MD Primary Care Provider [phone] Sarah Nelson LICENSED MARINE ENGINEER Unavailable [phone] Anila Schneider PROCESS IMPROVEMENT ENGINEER-NECKTIE MAKER Unavailable Jeannie Reynolds MD Unavailable [phone] Encounter Details Date Type Department Care Team (Late st Contact Info) Description 10/26/2023 Abstract [facility] WEBBERGYMarie [address] [place] [address] Ngozi Ledezma LPN [address] [place] [address] Social History Tobacco Use Types Packs/Day Years [...] Date Recorded Patient Health Questionnaire-2 Score 0 08/02/2023 Comments Yes Sex and Gender Information Value [...] Description 01/25/2025 10:00 AM EDT Initial [facility] OBGYMarie [address] [place] [address] [place] [address] documented as of this encounter Visit Diagnoses Not on filedocumented in this encounter Additional Health Concerns Assessment Noted Time PHQ-9 Depression Total Score: 14 023 10:43 AM EST documented as of this encounter Care Teams Retail Support Specialist Relationship Specialty Start Date End Date Jeannie Reynolds MD [address] [place] [address] PCP - General Family Medicine 09/21/22 Anila Schneider APRN-NECKTIE MAKER 112 [facility] 160 [place] [address] PCP - [place] [employer] 08/23/22 Jeannie Reynolds MD [address] [place] [address] PCP - [place] [facility] 08/23/24 Sarah Nelson NP [address] [place] [address] Nurse Practitioner Family Medicine 09/21/22 documented as of this encounter
--- OUTSIDE RECORDS SUMMARY | 2025-01-25 09:33 | XMS_ITS | Encounter Summary ---
Author Organization [facility] Address [address] [place] [address] Care Team Providers Care Floor Inspector Name Role Phone Jeannie Reynolds MD Primary Care Provider [phone] Sarah Nelson DAY CARE CENTER DIRECTOR Unavailable [phone] Anila Schneider DOUGH MACHINE OPERATOR-LATHE SET UP OPERATOR Unavailable Jeannie Reynolds MD Unavailable [phone] Encounter Details Date Type Department Care Team (Late st Contact Info) Description 04/26/2024 Abstract [facility] [address] [facility] [place] [phone] Shaw Rojo DO 102 [facility] [address] [place], [place] [id number] Social History Tobacco Use Types Packs/Day Years [...] 01/25/2025 10:00 AM EDT Initial [facility] Steffanie OBGYMarie [address] [place] [address] [place] [address] documented as of this encounter Visit Diagnoses Not on filedocumented in this encounter Additional Health Concerns Assessment Noted Time PHQ-9 Depression Total Score: 14 023 10:43 AM EST documented as of this encounter Care Teams Floor Inspector Relationship Specialty Start Date End Date Jeannie Reynolds MD [address] [place] [address] PCP - General Family Medicine 09/21/22 Anila Schneider APRN-LATHE SET UP OPERATOR 112 [facility] 160 [place] [address] PCP - [place] [facility] 08/23/22 Jeannie Reynolds MD [address] [place], [place] [id number] PCP - [place] [facility] 08/23/24 Sarah Nelson NP [address] [place] [address] Nurse Practitioner Family Medicine 09/21/22 documented as of this encounter
--- OUTSIDE RECORDS SUMMARY | 2025-01-25 09:33 | XMS_ITS | Encounter Summary ---
Author Organization [id number] [address] [place] [address] Care Team Providers Care Cake Winder Name Role Phone Leah Azar MD Primary Care Provider Reason for Visit * Reason Onset Date Comments STD testing 11/12/[address] ating that when she was in the office in June that she only wanted vaginal STD testing but now would like the labs done also. Would like the order placed to get the labs done. Encounter Details Date Type Department Care Team (Late st Contact Info) Description 11/12/2020 Telephone [facility] - [place] [address] [place] [address] Sirisha Jang RN STD testing (Patient calls stating that when she was in the office in June that she only wanted vaginal STD testing but now would like the labs done also. Would like the order placed to get the labs done. ) Social History Tobacco Use Types Packs/Day Years Used Date Smoking Tobacco: Every Day Cigarettes Smokeless Tobacco: Never Alcohol Use Standard Drinks/Week Comments Yes 0 (1 standard drink = 0.6 oz pur e alcohol) TWICE WEEKLY Childcare Answer Date Recorded Childcare Unknown 10/04/2018 Employment Answer Date Recorded Employment Unknown 10/04/2018 Purpose - Life Answer Date Recorded Purpose and direction in life Unknown Comments No Sex and Gender Information Value Date Recorded Sex Assigned at Not on file Legal Sex Female 11:58 AM EDT Gender Identity Not on file Sexual Orientation Not on file COVID-19 Exposure Response Date Recorded In the last month, have you been in contact with someone who was confirmed or suspected to have Coronavirus / COVID-19? No / Unsure 10/26/2020 10:14 AM EDT documented as of this encounter Plan of Treatment Not on file documented as of this encounter Visit Diagnoses Not on filedocumented in this encounter Care Teams Cake Winder Relationship Specialty Start Date End Date Leah Azar MD PCP - General Family Medicine 10/01/16 documented as of this encounter
--- OUTSIDE RECORDS SUMMARY | 2025-01-25 09:33 | XMS_ITS | Clinical Summary ---
Author Organization [facility] Address [id number] [address] [place] [address] Care Team Providers Care Machine Maintenance Repairer Name Role Phone Leah Azar MD Primary Care Provider [phone] Allergies No known active allergies Medications ibuprofen (ADVIL,MOTRIN) 800 mg tablet Take 1 tablet (800 mg total) by mouth 3 (three) times a day. 21 tablet Active Additional Information Patient not taking.Reported on 05/25/2021 buPROPion XL (WELLBUTRIN XL) 300 mg 24 hr tablet Take 300 mg by mouth daily. Active Active Problems No known active problems Family History Medical History Relation Name Comments Breast cancer Neg Hx Cancer Neg Hx Colon cancer Neg Hx Diabetes Neg Hx Hypertension Neg Hx Ovarian cancer Neg Hx Stroke Neg Hx Social History Tobacco Use Types Packs/Day Years Used Date Smoking Tobacco: Every Day Cigarettes Smokeless Tobacco: Never Tobacco Cessation:Ready to Q uit: Yes; Counseling Given: Yes Alcohol Use Standard Drinks/Week Comments Yes 0 (1 standard drink = 0.6 oz pur e alcohol) TWICE WEEKLY Childcare Answer Date Recorded Childcare Unknown 10/04/2018 Employment Answer Date Recorded Employment Unknown 10/04/2018 Hunger Screening Answer Date Recorded Within the past 12 months we worried whether our food would run out before we got money to buy more. Never True 07/28/2024 Within the past 12 months th e food we bought just didn't last and we didn't have money to get more. Never True 07/28/2024 Purpose - Life Answer Date Recorded Purpose and direction in life Unknown Comments No Sex and Gender Information Value Date Recorded Sex Assigned at Not on file Legal Sex Female 11:58 AM EDT Gender Identity Not on file Sexual Orientation Not on file Last Filed Vital Signs Vital Sign Reading Time Taken Comments Blood Pressure 109/76 07/28/2024 3:15 PM EDT Pulse 63 07/28/2024 3:15 PM EDT Temperature 36.4 C (97.6 F) 07/28/2024 1:41 PM EDT Respiratory Rate 19 07/28/2024 3:15 PM EDT Oxygen Saturation 98% 07/28/2024 3:15 PM EDT Inhaled Oxygen Concentration - - Weight 108.4 kg (239 lb) 07/28/2024 1:41 PM EDT Height 162.6 cm (5' 4 ) 07/28/2024 1:41 PM EDT Body Mass Index 41.02 07/28/2024 1:41 PM EDT Plan of Treatment Health Maintenance Due Date Last Done Comments Tobacco Counseling 2001 Depression Screening 2013 Adult BMI Follow Up Plan 2019 Chlamydia Screening 06/26/2021 06/26/2020 Pap Smear 2022 DTaP,Tdap and Td Vaccines (7 - Td or Tdap) 07/27/2023 07/26/2013, 09/15/2006, 07/30/2002, Additional history exists COVID-19 Vaccine (2024-2 6 season) 2024 08/26/2022, 06/01/2022 Influenza Vaccine 12/24/2024 05/16/2012, , 04/29/2008, Additional history exists Adult BMI Screening 07/28/2025 07/28/2024 Tobacco Screening 07/28/2025 07/28/2024 Medical Devices Not on file Procedures Procedure Name Priority Date/Time Associated Diagnosis Comments CHLAMYDIA/GC BY PCR MICHELE SWAB Routine 06/26/2020 12:23 PM EST Screening for STDs (sexually transmitted diseases) from Last 3 Months or Most Recently Relevant to Health Maintenance Results * Chlamydia/GC by PCR Michele Swab (06/26/2020 12:23 PM EST) Specimen source CERVICAL 9:29 PM EST [facility] Comment:Corrected on 06/26 A T 2129: Previously reported as CERVICAL Chlamydia DNA PCR Negative Negative^N egative 06/27/2020 12:47 PM EST [facility] Comment: Chlamydia trachomatis not detected by nucleic acid amplification. This does not exclude the possibility of infection because results are dependent on adequate specimen collection. Gonorrhea DNA PCR Negative Negative^N egative 06/27/2020 12:47 PM EST [facility] Comment: Neisseria gonorrhoeae not detected by nucleic acid amplification. This does not exclude the possibility of infection because results are dependent on adequate specimen collection. GENS 06/26/2020 12:2 3 PM EST 06/26/2020 9:29 PM EST us Radha Duval SCREWHEAD STONER AND POLISHER-CNM MICROBIOLOGY - GENERAL O RDERABLES Edited Result - Final [facility] [address] [place] [address] from Last 3 Months or Most Recently Relevant to Health Maintenance Insurance [place] [facility] [place] Care Teams Machine Maintenance Repairer Relationship Specialty Start Date End Date Leah Azar MD PCP - General Family Medicine 10/01/16
--- OUTSIDE RECORDS SUMMARY | 2025-01-25 09:33 | XMS_ITS | Encounter Summary ---
Author Organization [facility] Address [address] [place] [address] Care Team Providers Care Mouse Breeder Name Role Phone Jeannie Reynolds MD Primary Care Provider [phone] Sarah Nelson BOOMSWING OPERATOR Unavailable [phone] Anila Schneider INSTALLATION DRAFTER-RESOLUTION REP Unavailable Jeannie Reynolds MD Unavailable [phone] Encounter Details Date Type Department Care Team (Late st Contact Info) Description 10/03/2023 Abstract [facility] Steffanie [facility]AY[facility] [address] [facility] [place] [phone] Shaw Rojo DO 102 [facility] [address] [place], [place] [address] Social History Tobacco Use Types Packs/Day Years [...] 10:00 AM EDT Initial [facility] Steffanie OBGYMarie [address] [place] [address] [place] [address] documented as of this encounter Visit Diagnoses Not on filedocumented in this encounter Additional Health Concerns Assessment Noted Time PHQ-9 Depression Total Score: 14 023 10:43 AM EST documented as of this encounter Care Teams Mouse Breeder Relationship Specialty Start Date End Date Jeannie Reynolds MD [address] [place] [address] PCP - General Family Medicine 09/21/22 Anila Schneider APRN-RESOLUTION REP 112 [facility] 160 [place] [address] PCP - [place] [employer] 08/23/22 Jeannie Reynolds MD [address] [place], [place] [address] PCP - [place] [employer] 08/23/24 Sarah Nelson NP [address] [place] [address] Nurse Practitioner Family Medicine 09/21/22 documented as of this encounter
--- OUTSIDE RECORDS SUMMARY | 2025-01-25 09:33 | XMS_ITS | Encounter Summary ---
Author Organization [facility] Address [address] [place] [address] Care Team Providers Care Commercial Front Load Driver Name Role Phone Jeannie Reynolds MD Primary Care Provider [phone] Sarah Nelson LOW ALTITUDE AIR DEFENSE GUNNER Unavailable [phone] Anila Schneider KITCHEN WORK SUPERVISOR-FIELD ARTILLERY TARGETING TECHNICIAN Unavailable Jeannie Reynolds MD Unavailable [phone] Encounter Details Date Type Department Care Team (Late st Contact Info) Description 10/03/2023 Abstract [facility] Steffanie WEBBERGYMarie [address] [place] [address] Ngozi Ledezma LPN [address] [place] [address] Social History Tobacco Use Types [...] 10:00 AM EDT Initial [facility] Steffanie OBGYMarie [address] [place] [address] [place] [address] documented as of this encounter Visit Diagnoses Not on filedocumented in this encounter Additional Health Concerns Assessment Noted Time PHQ-9 Depression Total Score: 14 023 10:43 AM EST documented as of this encounter Care Teams Commercial Front Load Driver Relationship Specialty Start Date End Date Jeannie Reynolds MD [address] [place] [address] PCP - General Family Medicine 09/21/22 Anila Schneider APRN-FIELD ARTILLERY TARGETING TECHNICIAN 112 [facility] [address] [place] [address] PCP - [place] [facility] 08/23/22 Jeannie Reynolds MD [address] [place] [address] PCP - [place] [facility] 08/23/24 Sarah Nelson NP [address] [place] [address] Nurse Practitioner Family Medicine 09/21/22 documented as of this encounter
--- OUTSIDE RECORDS SUMMARY | 2025-01-25 09:33 | XMS_ITS | Encounter Summary ---
Author Organization [facility] Address [address] [place] [address] Care Team Providers Care Data Modeling Architect Name Role Phone Jeannie Reynolds MD Primary Care Provider [phone] Sarah Nelson FAIRING MAN Unavailable [phone] Kristen Arriaga FAIRING MAN Unavailable [phone] Anila Schneider SPECTROGRAPH OPERATOR-MANAGED CARE COORDINATOR Unavailable Jeannie Reynolds MD Unavailable [phone] Encounter Details Date Type Department Care Team (Late st Contact Info) Description 08/30/2022 Orders Only [facility] [address] [place] [address] [place] [address] Mallory Sarabia LPN Social History Tobacco Use Types Packs/Day Years Used Date Smoking Tobacco: Former Cigarettes Tobacco Cessation:Counseling Given: Not Answered AUDIT-C Answer Date Recorded Q1: How often [...] on file Sexual Orientation Not on file documented as of this encounter Functional Status * Audit-C Score Answer Date of Assessment Author 1 08/30/2022 11:01 AM EDT Mallory Sarabia LPN * Question Answer Date of Assessment Author Q1: How often do you have a drink containing alcohol? Monthly or less 08/30/2022 11:01 AM EDT Mallory Sarabia L PN Q2: How many drinks containing alcohol do you have on a typical day when you are drinking? 1 or 2 08/30/2022 11:01 AM EDT Mallory Sarabia L PN Q3: How often do you have six or more drinks on one occasion? Never 08/30/2022 11:01 AM EDT Mallory Sarabia L PN documented as of this encounter Plan of Treatment Upcoming Encounters Date Type Department Care Team (Late st Contact Info) Description 01/25/2025 10:00 AM EDT Initial [facility] Steffanie HAYES [address] [place] [address] [place] [address] documented as of this encounter Visit Diagnoses Not on filedocumented in this encounter Care Teams Data Modeling Architect Relationship Specialty Start Date End Date Jeannie Reynolds MD [address] [place] [address] PCP - General Family Medicine 09/21/22 Kristen Arriaga FAIRING MAN [address] [place] [address] PCP - [facility] 10/23/22 Anila Schneider, SPECTROGRAPH OPERATOR-MANAGED CARE COORDINATOR [address] [address] PCP - [place] [facility] 08/23/22 Jeannie Reynolds MD [address] [place], [place] [address] PCP - [place] [facility] 08/23/24 Sarah Nelson NP [address] [place] [address] Nurse Practitioner Family Medicine 09/21/22 documented as of this encounter
--- OUTSIDE RECORDS SUMMARY | 2025-01-25 09:33 | XMS_ITS | Encounter Summary ---
Author Organization [facility] Address [address] [place] [address] Care Team Providers Care Technical Aid Name Role Phone Jeannie Reynolds MD Primary Care Provider [phone] Sarah Nelson AGRICULTURAL PRODUCE SORTER Unavailable Jeannie Reynolds MD Unavailable [phone] Encounter Details Date Type Department Care Team ([facility] Contact Info) Description 01/21/2025 Bamboo flowsheet [facility] Family Medicine [address] [place] [address] Silva Olmstead NP [address] [place], [place] [address] Social History Tobacco Use Types Packs/Day Years [...] 10:00 AM EDT Initial [facility] Steffanie HAYES [address] [place] [address] [place] [phone] documented as of this encounter Visit Diagnoses Not on filedocumented in this encounter Additional Health Concerns Assessment Noted Time PHQ-9 Depression Total Score: 14 023 10:43 AM EST documented as of this encounter Care Teams Technical Aid Relationship Specialty Start Date End Date Jeannie Reynolds MD [address] [place] [address] PCP - General Family Medicine 09/21/22 Jeannie Reynolds MD [address] [place] [address] [facility] 08/23/24 Sarah Nelson NP [address] [place] [address] Nurse Practitioner Family Medicine 09/21/22 documented as of this encounter
--- OUTSIDE RECORDS SUMMARY | 2025-01-25 09:33 | XMS_ITS | Encounter Summary ---
Author Organization [facility] Address [address] [place] [address] Care Team Providers Care Loom Fixer Apprentice Name Role Phone Jeannie Reynolds MD Primary Care Provider [phone] Sarah Nelson SPA TECHNICIAN Unavailable [phone] Anila Schneider SLIP COVER CUTTER-ANTIQUE CLOCK REPAIRER Unavailable Jeannie Reynolds MD Unavailable [phone] Encounter Details Date Type Department Care Team (Late st Contact Info) Description 12/02/2023 Abstract [facility] Steffanie OBAUDREY [address] [place] [phone] Shaw Rojo DO [address] [facility] [address] [place], [place] [address] Social History Tobacco Use Types Packs/Day Years [...] 10:00 AM EDT Initial [facility] Steffanie OBGYMarie [address] [place] [address] [place] [address] documented as of this encounter Visit Diagnoses Not on filedocumented in this encounter Additional Health Concerns Assessment Noted Time PHQ-9 Depression Total Score: 14 023 10:43 AM EST documented as of this encounter Care Teams Loom Fixer Apprentice Relationship Specialty Start Date End Date Jeannie Reynolds MD [address] [place] [address] PCP - General Family Medicine 09/21/22 Anila Schneider APRN-ANTIQUE CLOCK REPAIRER 112 [facility] 160 [place] [address] PCP - [place] [employer] 08/23/22 Jeannie Reynolds MD [address] [place], [place] [address] PCP - [place] [facility] 08/23/24 Sarah Nelson NP [address] [place] [address] Nurse Practitioner Family Medicine 09/21/22 documented as of this encounter
--- OUTSIDE RECORDS SUMMARY | 2025-01-25 09:33 | XMS_ITS | Encounter Summary ---
Author Organization [facility] Address [address] [place] [address] Care Team Providers Care Weekend Caregiver Name Role Phone Jeannie Reynolds MD Primary Care Provider [phone] Sarah Nelson VISUAL MERCHANDISING COORDINATOR Unavailable [phone] Anila Schneider WARD AIDE-POLE TESTER Unavailable Jeannie Reynolds MD Unavailable [phone] Encounter Details Date Type Department Care Team (Late st Contact Info) Description 10/20/2023 Abstract [facility] OBGYMarie [address] [place] [address] Silvana Peters LPN [address] [place] [address] Social History Tobacco Use Types [...] AM EDT Initial [facility] OBGYMarie [address] [place] [address] [place] [address] documented as of this encounter Visit Diagnoses Not on filedocumented in this encounter Additional Health Concerns Assessment Noted Time PHQ-9 Depression Total Score: 14 023 10:43 AM EST documented as of this encounter Care Teams Weekend Caregiver Relationship Specialty Start Date End Date Jeannie Reynolds MD [address] [place] [address] PCP - General Family Medicine 09/21/22 Anila Schneider APRN-POLE TESTER 112 [facility] 160 [place] [address] PCP - [place] [facility] 08/23/22 Jeannie Reynolds MD [address] [place], [place] [address] PCP - [place] [employer] 08/23/24 Sarah Nelson NP [address] [place] [address] Nurse Practitioner Family Medicine 09/21/22 documented as of this encounter
--- OUTSIDE RECORDS SUMMARY | 2025-01-25 09:33 | XMS_ITS | Encounter Summary ---
Author Organization [facility] Address [address] [place] [address] Care Team Providers Care Batch Heat Treat Operator Name Role Phone Jeannie Reynolds MD Primary Care Provider [phone] Sarah Nelson [facility] Unavailable [phone] Anila Schneider LASER TECHNICIAN-STOCK DEALER Unavailable Jeannie Reynolds MD Unavailable [phone] Encounter Details Date Type Department Care Team (Late st Contact Info) Description 11/21/2023 Abstract [facility] Steffanie HAYES [address] [facility] [phone] Shaw Rojo DO 102 [facility] [address] [place], [place] [address] Social History Tobacco Use Types Packs/Day Years [...] 10:00 AM EDT Initial [facility] Steffanie OBGYMarie [address] [place] [address] [place] [address] documented as of this encounter Visit Diagnoses Not on filedocumented in this encounter Additional Health Concerns Assessment Noted Time PHQ-9 Depression Total Score: 14 023 10:43 AM EST documented as of this encounter Care Teams Batch Heat Treat Operator Relationship Specialty Start Date End Date Jeannie Reynolds MD [address] [place] [address] PCP - General Family Medicine 09/21/22 Anila Schneider APRN-STOCK DEALER 112 [facility] 160 [place] [address] PCP - [place] [facility] 08/23/22 Jeannie Reynolds MD [address] [place], [place] [phone] PCP - [place] [facility] 08/23/24 Sarah Neslon NP [address] [place] [address] Nurse Practitioner Family Medicine 09/21/22 documented as of this encounter
--- OUTSIDE RECORDS SUMMARY | 2025-01-25 09:33 | XMS_ITS | Clinical Summary ---
Author Organization [facility] Healthcare Address [address] [place] [address] Care Team Providers Care Cellar Worker Name Role Phone Jeannie Reynolds MD Primary Care Provider [phone] Sarah Nelson STABLE HELPER Unavailable [phone] Jeannie Reynolds MD Unavailable [phone] Allergies Active Allergy Reactions Criticality Noted Date Comments Buspirone 08/30/2022 Other Reaction(s): Increased anxiety/hallucinations Cholestatin 08/30/2022 Other Reaction(s): Unknown Lurasidone 08/30/2022 Other Reaction(s): restlessness Latuda Other Unknown 12/24/2020 Medications ibuprofen 800 MG tablet 5 Active ondansetron ODT (Zofran-ODT) 4 MG disintegrating tabletIndications: Nausea and vomiting in ([facility]) Take 1 tablet (4 mg) by mouth every 6 (six) hours if needed for nausea or vomiting 30 tablet 2 5 025 Active famotidine (Pepcid) 20 MG tabletIndications: Gastroesophageal reflux disease without esophagitis Take 1 tablet (20 mg) by mouth in the morning and 1 tablet (20 mg) before bedtime. 60 tablet 1 5 Active metoclopramide (Reglan) 10 MG tabletIndications: Nausea/vomiting in ([facility]) Take 1 tablet (10 mg) by mouth in the morning and 1 tablet (10 mg) at noon and 1 tablet (10 mg) in the evening. Take before meals. Take 1 tablet by mouth 30 minutes prior to meals 3 times daily as needed for nausea. 90 tablet 1 5 025 Active norgestimate-ethin yl estradiol (Sprintec 28) 0.25-35 MG-MCG tabletIndications: Uses control Take 1 tablet by mouth Daily for 28 days Take 1 tablet by mouth daily 28 tablet 11 025 Discontin ued(Thera py completed ) Active Problems Problem Noted Date Diagnosed Date Irregular periods 08/02/2023 Attention deficit 03/04/2023 Chronic fatigue 03/04/2023 Chronic gastritis without bleeding 03/04/2023 Dyspareunia due to medical condition in female 1 05/04/2022 Grieving 03/04/2023 Infertility, female 03/04/2023 Pelvic congestion syndrome 03/04/2023 Attention deficit hyperactivity disorder (ADHD) 08/30/2022 Bipolar II disorder 08/30/2022 Amenorrhea 02/23/2021 Migraine with aura and with status migrainosus, not intractable 05/27/2020 Mixed anxiety and depressive disorder 12/25/2019 Acute non intractable tension-type headache 11/23 Adjustment disorder with depressed mood 12/11/19 20 Vitamin D deficiency 03/13/2019 Dysfunction of both eustachian tubes 12/07/2018 Allergic rhinitis 11/23/2018 Menstrual cramps 07/04/2017 Slow transit constipation 04/11/2017 Anxiety 03/23/2016 Gastritis and duodenitis 06/03/2015 Encounters Date Type Department Care Team Description 01/23/2025 Telephone [facility] [address] [place] [address] Sera Parsons LPN 01/21/2025 4:00 PM EDT Office Visit [facility] Medicine [address] [place] [address] Silva Olmstead NP Gastroesophageal reflux disease without esophagitis (Primary Dx) 01/21/2025 Bamboo flowsheet [facility] Medicine [address] [facility] [place] [address] Silva Olmstead NP 01/21/2025 Travel 01/11/2025 Telephone [facility] [address] [place] [address] Spike Linda, MA 12/07/2024 Telephone [facility] [address] [place] [address] [place] [address] Ngozi Ledezma LPN from Last 3 Months Immunizations Immunization Administration Dates Next Due DTaP, 5 pertussis antigens 09/15/2006 DTaP, Unspecified 07/30/2002, 2,2001,07/07 Hep A, ped/adol, 2 dose 03/01/2014,07/26/2013 Hep B, Adolescent or Pediatric 2001,2001,2001 HiB, unspecified 07/30/2002, 2,2001,07/07 Hib (HbOC) 09/15/2006 IPV 09/15/2006 Influenza Whole 05/16/2012,04/29/2008 Influenza, seasonal, injectable 03/29/2007 MMR 09/15/2006,07/30/2002 Meningococcal MCV4P 07/26/2013 Novel [id number], preservative-free 02/12/2009 Pneumococcal Conjugate PCV 7 2001 Polio, Unspecified 2001,2001, 002 Tdap 07/26/2013 Varicella 07/26/2013,07/30/2002 Family History Medical History Relation Name Comments Diabetes Maternal Grandmother Mental illness Maternal Grandmother Myasthenia gravis Mother brain shrinking Mother Mental illness Mother's Sister Relation Name Status Comments Brother patient has 3 b rothers Maternal Grandmother Mother Mother's Sister Sister patient has 1 s ister Social History Tobacco Use Types Packs/Day Years Used Date Smoking Tobacco: Former Cigarettes Smokeless Tobacco: Never Tobacco Cessation:Counseling Given: Not Answered Comments:Vapes nicotine daily Alcohol Use Standard Drinks/Week Comments Not Currently [...] Not on f ile Not on file Last Filed Vital Signs Vital Sign Reading Time Taken Comments Blood Pressure 116/64 01/21/2025 4:04 PM EDT Pulse 95 01/21/2025 4:04 PM EDT Temperature 36.2 C (97.1 F) 08/02/2023 3:46 PM EDT Respiratory Rate - - Oxygen Saturation 99% 01/21/2025 4:04 PM EDT Inhaled Oxygen Concentration - - Weight 113 kg (250 lb) 01/21/2025 4:04 PM EDT Height 162.6 cm (5' 4 ) 07/24/2024 12:59 PM EDT Body Mass Index 42.91 07/24/2024 12:59 PM EDT Plan of Treatment Upcoming Encounters Date Type Department Care Team (Late st Contact Info) Description 01/25/2025 10:00 AM EDT Initial [facility] [address] [place] [address] [place] [address] Health Maintenance Due Date Last Done Comments Influenza Vaccine (#1) 2024 05/16/2012, 2008, 03/29/2007 Insurance BS [employer] Care Teams Cellar Worker Relationship Specialty Start Date End Date Jeannie Reynolds MD [address] [facility] [place] [address] PCP - General Family Medicine 09/21/22 Jeannie Reynolds MD [address] [place] [address] [facility] 08/23/24 Sarah Nelson NP [address] [facility] [place], [place] [id number] Nurse Practitioner Family Medicine 09/21/22
--- OUTSIDE RECORDS SUMMARY | 2025-01-25 09:33 | XMS_ITS | Encounter Summary ---
Author Organization [facility] Address [address] [place] [address] Care Team Providers Care Pest Control Worker Name Role Phone Jeannie Reynolds MD Primary Care Provider [phone] Sarah Nelson TRACTOR TRAILER OPERATOR Unavailable [phone] Kristen Arriaga TRACTOR TRAILER OPERATOR Unavailable [phone] Anila Schneider DIGITAL SERVICE ENGINEER-CAD DESIGN ENGINEER Unavailable Jeannie Reynolds MD Unavailable [phone] Reason for Visit * Reason Comments Med Refill Encounter Details Date Type Department Care Team (Late st Contact Info) Description 12/12/2022 Refill [facility] [address] [facility] [address] [place] [address] Mark Doran MD [address] [facility] [address] [place] [address] Social History Tobacco Use Types Packs/Day Years [...] 10:00 AM EDT Initial [facility] [address] [place] [address] [place] [address] documented as of this encounter Visit Diagnoses Not on filedocumented in this encounter Care Teams Pest Control Worker Relationship Specialty Start Date End Date Jeannie Reynolds MD [address] [place], [place] [id number] PCP - General Family Medicine 09/21/22 Kristen Arriaga, TRACTOR TRAILER OPERATOR [address] [place] [address] PCP - [facility] 10/23/22 Anila Schneider APRN-CAD DESIGN ENGINEER [address] [place] [address] PCP - [facility] 08/23/22 Jeannie Reynolds MD [address] [place] [address] PCP - [facility] 08/23/24 Sarah Nelson NP [address] [place], [place] [phone] Nurse Practitioner Family Medicine 09/21/22 documented as of this encounter
--- OUTSIDE RECORDS SUMMARY | 2025-01-25 09:33 | XMS_ITS | Encounter Summary ---
Author Organization [facility] Address [address] [place] [address] Care Team Providers Care Resin Painter Name Role Phone Jeannie Reynolds MD Primary Care Provider [phone] Sarah Nelson CENTRAL SERVICE TECHNICIAN Unavailable [phone] Anila Schneider LABEL PASTER-RV REPAIR TECHNICIAN Unavailable Jeannie Reynolds MD Unavailable [phone] Encounter Details Date Type Department Care Team (Late st Contact Info) Description 10/03/2023 Abstract [facility] [address] [facility] [place] [address] Shaw Rojo DO [address] [facility] [address] [place], [place] [id number] Social History Tobacco Use Types Packs/Day Years [...] 10:00 AM EDT Initial [facility] [address] [place] [address] [place] [address] documented as of this encounter Visit Diagnoses Not on filedocumented in this encounter Additional Health Concerns Assessment Noted Time PHQ-9 Depression Total Score: 14 023 10:43 AM EST documented as of this encounter Care Teams Resin Painter Relationship Specialty Start Date End Date Jeannie Reynolds MD [address] [place] [address] PCP - General Family Medicine 09/21/22 Anila Schneider APRN-RV REPAIR TECHNICIAN [address] [facility] [address] [place] [address] PCP - [place] [facility] 08/23/22 Jeannie Reynolds MD [address] [place], [place] [phone] PCP - [facility] 08/23/24 Sarah Nelson NP [address] [place] [address] Nurse Practitioner Family Medicine 09/21/22 documented as of this encounter
--- OUTSIDE RECORDS SUMMARY | 2025-01-25 09:33 | XMS_ITS | Encounter Summary ---
Author Organization [facility] Address [address] [place] [address] Care Team Providers Care Character Impersonator Name Role Phone Jeannie Reynolds MD Primary Care Provider [phone] Sarah Nelson NP Unavailable [phone] Jeannie Reynolds MD Unavailable Encounter Details Date Type Department Care Team (Late st Contact Info) Description 01/11/2025 Telephone [facility] [address] [place] [address] [place]ony [place], [place] [address] [place] [address] Social History Tobacco Use Types Packs/Day Years [...] Date Recorded Patient Health Questionnaire-2 Score 0 07/24/2024 Comments No Sex and Gender Information Value [...] encounter Miscellaneous Notes * Telephone Encounter - Linda Lala MA - 01/11/2025 10:21 AM EDT In need of zofran. Rx sent PVU documented in this encounter Plan of Treatment Upcoming Encounters Date Type Department Care Team (Late st Contact Info) Description 01/25/2025 10:00 AM EDT Initial [facility] [address] [place] [address] [place] [address] documented as of this encounter Visit Diagnoses Diagnosis Nausea and vomiting in ([facility]) Unspecified vomiting of , unspecified as to episode of care Missed menses Positive urine test ([facility]) documented in this encounter Additional Health Concerns Assessment Noted Time PHQ-9 Depression Total Score: 14 023 10:43 AM EST documented as of this encounter Care Teams Character Impersonator Relationship Specialty Start Date End Date Jeannie Reynolds MD [address] [place] [address] PCP - General Family Medicine 09/21/22 Jeannie Reynolds MD [address] [place] [address] PCP - [facility] 08/23/24 Sarah Nelson NP [address] [place] [address] Nurse Practitioner Family Medicine 09/21/22 documented as of this encounter
--- OUTSIDE RECORDS SUMMARY | 2025-01-25 09:34 | XMS_ITS | Encounter Summary ---
Author Organization [facility] Address [address] [place] [address] Care Team Providers Care Finishing Range Feeder Name Role Phone Jeannie Reynolds MD Primary Care Provider [phone] Sarah Nelson EXTRUDER OPERATOR MULTIPLE Unavailable [phone] Anila Schneider TICKET CLERK-YEAST PUSHER Unavailable Jeannie Reynolds MD Unavailable [phone] Encounter Details Date Type Department Care Team ([facility] Contact Info) Description 04/26/2024 Clinisync Result Encounter [facility] External Department Unsolicited Provider, Generic External Data Social History Tobacco Use Types Packs/Day Years [...] Upcoming Encounters Date Type Department Care Team ([facility] st Contact Info) Description 01/25/2025 10:00 AM EDT Initial [facility] [address] [facility] [place] [address] documented as of this encounter Procedures Procedure Name Priority Date/Time Associated Diagnosis Comments [facility] CBC WITH PLATELET NO DIFFERENTIAL Routine 04/26/2024 4:05 PM EST TB DRUG SCREEN RAPID (URINE) Routine 04/26/2024 4:00 PM EST US OB BPP W NON-STRESS 04/26/2024 1:31 PM EST documented in this encounter Results * (ABNORMAL) HP CBC WITH PLATELET NO DIFFERENTIAL (04/26/2024 4:05 PM EST) TBH WBC 15.9(H) 4.0 - 11.0 10 3/uL TBH TBH RBC 4.64 4.20 - 5.40 10 6/uL TBH TBH HGB 12.0 12.0 - 16.0 g/dL TBH TBH HCT 37.2 36.0 - 48.0 % TBH TBH MCV 80.2(L) 81.0 - 99.0 fL TBH TBH MCH 25.9(L) 26.7 - 34.0 pg TBH TBH MCHC 32.3 29.9 - 35.2 g/dL TBH TBH RDW 13.2 11.0 - 15.0 % TBH TBH PLT 370 150 - 450 10 3/uL TBH TBH MPV 9.4(L) 9.5 - 13.5 fL TBH 04/26/2024 4:05 PM EST 04/26/2024 4:18 PM EST Narrative [facility] - 04/26/2024 4:25 PM EST us Waldo Alia DO [facility] Final Result [facility] TB * TBH DRUG SCREEN RAPID (URINE) (04/26/2024 4:00 PM EST) CANNABINOID SCREEN URINE NEGATIVE NEGATIVE TBH PHENCYCLIDINE SCREEN URINE NEGATIVE NEGATIVE TBH COCAINE SCREEN URINE NEGATIVE NEGATIVE TBH METHAMPHETAMINES SCREEN URINE NEGATIVE NEGATIVE TBH OPIATE SCREEN URINE NEGATIVE NEGATIVE TBH AMPHETAMINE SCREEN URINE NEGATIVE NEGATIVE TBH BENZODIAZEPINES SCREEN URINE NEGATIVE NEGATIVE TBH TRICYCLIC ANTIDEPRESSANT URINE NEGATIVE NEGATIVE TBH METHADONE SCREEN URINE NEGATIVE NEGATIVE TBH BARBITURATES SCREEN URINE NEGATIVE NEGATIVE TBH OXYCODONE SCREEN URINE NEGATIVE NEGATIVE TBH BUPRENORPHINE SCREEN URINE NEGATIVE NEGATIVE TBH Comment: DRUG CLASS TEST SYSTEM CUT-OFF CONCENTRATIONS ARE FOLLOWS: AMP (Amphetamine): 500 ng/mL BAR (Barbiturates): 200 ng/mL BZO (Benzodiazepines): 150 ng/mL BUP (Buprenorphine): 10 ng/mL VANESSA (Cocaine): 150 ng/mL mAMP (Methamphetamine): 500 ng/mL MTD (Methadone): 200 ng/mL OPI (Opiates): 100 ng/mL OXY (Oxycodone): 100 ng/mL PCP (Phencyclidine): 25 ng/mL THC (Cannabinoids): 50 ng/mL TCA (Trycyclic Antidepressants): 300 ng/mL 04/26/2024 4:00 PM EST 04/26/2024 4:18 PM EST Narrative [facility] - 04/26/2024 4:46 PM EST us Waldo Rojo DO CLINISYVIKRAM Final Result [facility] * US OB BPP W NON-STRESS (04/26/2024 1:31 PM EST) Anatomical Region Laterality Modality Other 04/26/2024 1:31 PM EST Narrative 04/26/2024 1:34 [place] [address] Ultrasound Report Signed Patient: BRYNN GONZALEZ MR#: [id number] : 2000 Acct:[id number] Age/Sex: 23 / F ADM Date: 04/26/24 Loc: [facility] 252-[address]: Waldo Rojo D.O. Ordering Physician: Waldo Rojo D.O. Date of Service: 04/26/24 Procedure(s): US OB BPP w non-stress Accession Number(s): [id number] cc: JEANNA PASCUAL ; Waldo Rojo D.O. [place] [address] Patient Name: BRYNN GONZALEZ MRN: [id number] date: 2000 Sex: F Assigned Patient Location: [facility] Current Patient Location: [facility] Accession/Order Number: [id number] Exam Date: 04/26/2024 13:00 Report Date: 04/26/2024 13:31 At the request of: WALDO ROJO Procedure: US OB BPP w non-stress EXAMINATION: US OB BPP w non-stress HISTORY: excessive growth COMPARISON: No relevant comparison available. TECHNIQUE: Ultrasound biophysical profile was performed in the radiology department. non-reactive stress testing was performed by nursing staff in the birthing center. FINDINGS: BREATHING MOVEMENTS: 2 GROSS BODY MOVEMENTS: 2 TONE: 2 QUALITATIVE AMNIOTIC FLUID VOLUME: 2 PRESENTATION: CEPHALIC HEART RATE: 122.17 bpm AMNIOTIC FLUID VOLUME: 6.3 GESTATIONAL AGE: 39 weeks 4 days US/US OB BPP w non-stress IMPRESSION: Total biophysical profile score: 8 Oligohydramnios Electronically authenticated by: HAYLIE ASCENCIO Date: 04/26/2024 13:31 Dictated By: Haylie Ascencio M.D. Signed By: 04/26/24 1334 DD/ 1331 TD/TT: Blanket Washer: Procedure Note Radiology, Radiologist, MD - 04/26/2024 [place] [address] Ultrasound Report Signed Patient: BRYNN GONZALEZ MMR#: [id number] : 2000Acct:[id number] Age/Sex: 23 / FADM Date: 04/26/24 Loc: [facility] 252-[address]: Waldo Rojo D.O. Ordering Physician: Waldo Rojo D.O. Date of Service: 04/26/24 Procedure(s): US OB BPP w non-stress Accession Number(s): [id number] cc: JEANNA PASCUAL Corey D.O. [address] [address] Patient Name: BRYNN GONZALEZ MRN: [id number] date: 2000 Sex: F Assigned Patient Location: [facility] Current Patient Location: [facility] Accession/Order Number: [id number] Exam Date: 04/26/2024 13:00 Report Date: 04/26/2024 13:31 At the request of: WALDO ROJO Procedure: US OB BPP w non-stress EXAMINATION: US OB BPP w non-stress HISTORY: excessive growth COMPARISON: No relevant comparison available. TECHNIQUE: Ultrasound biophysical profile was performed in the radiology department. non-reactive stress testing was performed by nursingstaff in the birthing center. FINDINGS: BREATHING MOVEMENTS: 2 GROSS BODY MOVEMENTS: 2 TONE: 2 QUALITATIVE AMNIOTIC FLUID VOLUME: 2 PRESENTATION: CEPHALIC HEART RATE: 122.17 bpm AMNIOTIC FLUID VOLUME: 6.3 GESTATIONAL AGE: 39 weeks 4 days US/US OB BPP w non-stress IMPRESSION: Total biophysical profile score: 8 Oligohydramnios Electronically authenticated by: HAYLIE ASCENCIO Date: 04/26/2024 13:31 Dictated By: Haylie Ascencio M.D. Signed By:04/26/24 1334 DD/ 133 TD/TT: Blanket Washer: us Generic External Data Provider [facility] Final Result documented in this encounter Visit Diagnoses Not on filedocumented in this encounter Additional Health Concerns Assessment Noted Time PHQ-9 Depression Total Score: 14 023 10:43 AM EST documented as of this encounter Care Teams Finishing Range Feeder Relationship Specialty Start Date End Date Jeannie Reynolds MD [address] [place] [address] PCP - General Family Medicine 09/21/22 Anila Schneider APRN-YEAST PUSHER [address] [facility] [address] [place] [address] PCP - [place] [facility] 08/23/22 Jeannie Reynolds MD [address] [place], [place] [address] PCP - [facility] 08/23/24 Sarah Nelson NP [address] [place], [place] [address] Nurse Practitioner Family Medicine 09/21/22 documented as of this encounter
--- OUTSIDE RECORDS SUMMARY | 2025-01-25 09:34 | XMS_ITS | Encounter Summary ---
Author Organization [facility] Address [address] [place] [address] Care Team Providers Care Software Asset Manager Name Role Phone Jeannie Reynolds MD Primary Care Provider [phone] Sarah Nelson GIMP BUTTONHOLE MACHINE OPERATOR Unavailable [phone] Anila Schneider HEALTHCARE RISK CONTROL CONSULTANT-WELT STITCH CLEANER Unavailable Jeannie Reynolds MD Unavailable [phone] Encounter Details Date Type Department Care Team (Late st Contact Info) Description 12/15/2023 Abstract [facility] [address] [facility] [place] [address] Shaw Rojo DO [address] [facility] [address] [place] [place], [place] [address] Social History Tobacco Use Types Packs/Day Years [...] AM EDT Initial [facility] [address] [place] [address] [place] [address] documented as of this encounter Visit Diagnoses Not on filedocumented in this encounter Additional Health Concerns Assessment Noted Time PHQ-9 Depression Total Score: 14 023 10:43 AM EST documented as of this encounter Care Teams Software Asset Manager Relationship Specialty Start Date End Date Jeannie Reynolds MD [address] [place] [address] PCP - General Family Medicine 09/21/22 Anila Schneider APRN-WELT STITCH CLEANER [address] [facility] [address] [place] [address] PCP - [place] [facility] 08/23/22 Jeannie Reynolds MD [address] [place], [place] [address] PCP - [facility] 08/23/24 Sarah Nelson NP [address] [place] [address] Nurse Practitioner Family Medicine 09/21/22 documented as of this encounter
--- OUTSIDE RECORDS SUMMARY | 2025-01-25 09:34 | XMS_ITS | Encounter Summary ---
Author Organization [facility] Address [address] [place] [address] Care Team Providers Care Avionics Integration Engineer Name Role Phone Jeannie Reynolds MD Primary Care Provider [phone] Sarah Nelson CAN PATCHER Unavailable [phone] Anila Schneider STEEL BARREL REAMER-CERTIFIED ORTHOTIST Unavailable Jeannie Reynolds MD Unavailable [phone] Encounter Details Date Type Department Care Team ([facility] Contact Info) Description 04/14/2024 Clinisync Result Encounter N[facility] External Department Unsolicited [...] Upcoming Encounters Date Type Department Care Team ([facility] st Contact Info) Description 01/25/2025 10:00 AM EDT Initial [facility] [place] [facility] [address] [place] [address] [place] [phone] documented as of this encounter Procedures Procedure Name Priority Date/Time Associated Diagnosis Comments US OB GROWTH 04/14/2024 8:22 AM EST documented in this encounter Results * US OB GROWTH (04/14/2024 8:22 AM EST) Anatomical Region Laterality Modality Other 04/14/2024 8:22 AM EST Narrative 04/14/2024 8:25 AM EST [address] [address] Ultrasound Report Signed Patient: BRYNN GONZALEZ MR#: [id number] : 2000 Acct:[id number] Age/Sex: 23 / F ADM Date: 04/13/24 Loc: US Attending Dr: Yaritza Portillo Ordering Physician: Yaritza Portillo Date of Service: 04/13/24 Procedure(s): US OB growth Accession Number(s): [id number] cc: Yaritza Portillo; JEANNA PASCUAL [address] [address] Patient Name: BRYNN GONZALEZ MRN: [id number] date: 2000 Sex: F Assigned Patient Location: US Current Patient Location: Accession/Order Number: [id number] Exam Date: 04/13/2024 19:00 Report Date: 04/14/2024 08:22 At the request of: YARITZA PORTILLO Procedure: US OB growth EXAMINATION: US OB growth HISTORY: EXCESSIVE GROWTH AFFECTING O36.63X0 COMPARISON: Ultrasound OB growth 02/23/2024 FINDINGS: Heart Rate: 121.62 bpm Amniotic Fluid Volume: 10.0 cm; normal range. Number: 1 Position: CEPHALIC BIOMETRY: BPD: 8.86 cm; 35 weeks 6 days; 20.60 % HC: 32.65 cm; 37 weeks 0 days; 15 % AC: 34.18 cm; 38 weeks 1 day; 76.10 % FL: 7.08 cm; 36 weeks 2 days; 17.30 % EFW: 3163.24 g; 48.60 % FL/AC: 20.70 FL/BPD: 79.81 HC/AC: 0.96 GESTATIONAL AGE: Age by EDC: 37 weeks 5 days JAYE by EDC: 2024-04-29 Age by US: 36 weeks 6 days JAYE by US: 2024-05-05 US/US OB growth IMPRESSION: 1. Single live intrauterine with growth detailed above. 2. Possible nuchal cord. Consider follow-up. Electronically authenticated by: EDI REYES Date: 04/14/2024 08:22 Dictated By: Edi Reyes M.D. Signed By: 04/14/24824 DD/ 1 TD/TT: Internship: Procedure Note Radiology, Radiologist, MD - 04/14/2024 [place] [address] Ultrasound Report Signed Patient: BRYNN GONZALEZ MMR#: [id number] : 2000Acct:[id number] Age/Sex: 23 / FADM Date: 04/13/24 Loc: US Attending Dr: Yaritza Portillo Ordering Physician: Yaritza Portillo Date of Service: 04/13/24 Procedure(s): US OB growth Accession Number(s): [id number] cc: Yaritza Portillo; JEANNA PASCUAL [place] [id number] Patient Name: BRYNN GONZALEZ MRN: [id number] date: 2000 Sex: F Assigned Patient Location: US Current Patient Location: Accession/Order Number: [id number] Exam Date: 04/13/2024 19:00 Report Date: 04/14/2024 08:22 At the request of: YARITZA PORTILLO Procedure: US OB growth EXAMINATION: US OB growth HISTORY: EXCESSIVE GROWTH AFFECTING O36.63X0 COMPARISON: Ultrasound OB growth 02/23/2024 FINDINGS: Heart Rate: 121.62 bpm Amniotic Fluid Volume: 10.0 cm; normal range. Number: 1 Position: CEPHALIC BIOMETRY: BPD: 8.86 cm; 35 weeks 6 days; 20.60 % HC: 32.65 cm; 37 weeks 0 days; 15 % AC: 34.18 cm; 38 weeks 1 day; 76.10 % FL: 7.08 cm; 36 weeks 2 days; 17.30 % EFW: 3163.24 g; 48.60 % FL/AC: 20.70 FL/BPD: 79.81 HC/AC: 0.96 GESTATIONAL AGE: Age by EDC: 37 weeks 5 days JAYE by EDC: 2024-04-29 Age by US: 36 weeks 6 days JAYE by US: 2024-05-05 US/US OB growth IMPRESSION: 1. Single live intrauterine with growth detailed above. 2. Possible nuchal cord. Consider follow-up. Electronically authenticated by: EDI REYES Date: 04/14/2024 08:22 Dictated By: Edi Reyes M.D. Signed By:04/14/24824 DD/ 1 TD/TT: Internship: us Generic External Data Provider [facility] Final Result documented in this encounter Visit Diagnoses Not on filedocumented in this encounter Additional Health Concerns Assessment Noted Time PHQ-9 Depression Total Score: 14 023 10:43 AM EST documented as of this encounter Care Teams Avionics Integration Engineer Relationship Specialty Start Date End Date Jeannie Reynolds MD [address] [place] [address] PCP - General Family Medicine 09/21/22 Anila Schneider APRN-CERTIFIED ORTHOTIST [address] [address] PCP - [place] [employer] 08/23/22 Jeannie Reynolds MD [address] [place] [address] PCP - [place] [employer] 08/23/24 Sarah Nelson NP [address] [place] [id number] Nurse Practitioner Family Medicine 09/21/22 documented as of this encounter
--- OUTSIDE RECORDS SUMMARY | 2025-01-25 09:34 | XMS_ITS | Encounter Summary ---
Author Organization [facility] Address [address] [place] [address] Care Team Providers Care Oracle Data Warehouse Developer Name Role Phone Jeannie Reynolds MD Primary Care Provider [phone] Sarah Nelson RADIOLOGY DIRECTOR Unavailable [phone] Anila Schneider CROSSCUTTER [employer]-HOSPICE VOLUNTEER Unavailable Jeannie Reynolds MD Unavailable [phone] Encounter Details Date Type Department Care Team (Late st Contact Info) Description 03/15/2024 Clinisync Result Encounter [facility] External Department Unsolicited Waldo Rojo, DO [address] [facility] [address] [place], [place] [id number] Social History Tobacco Use Types Packs/Day Years [...] 01/25/2025 10:00 AM EDT Initial [facility] [place] [facility] [address] [facility] [address] documented as of this encounter Procedures Procedure Name Priority Date/Time Associated Diagnosis Comments US OB BPP W NON-STRESS 03/15/2024 4:41 PM EST URINE CULTURE, ROUTINE Routine 03/15/2024 1:22 PM EST documented in this encounter Results * US OB BPP W NON-STRESS (03/15/2024 4:41 PM EST) Anatomical Region Laterality Modality Other 03/15/2024 4:41 PM EST Narrative 03/15/2024 4:43 PM EST [address] [address] Ultrasound Report Signed Patient: BRYNN GONZALEZ MR#: [id number] : 2000 Acct:[id number] Age/Sex: 23 / F ADM Date: Loc: [facility] Attending Dr: Waldo Rojo D.O. Ordering Physician: Waldo Rojo D.O. Date of Service: 03/15/24 Procedure(s): US OB BPP w non-stress Accession Number(s): [id number] cc: JEANNA PASCUAL ; Waldo Rojo D.O. The [address] [address] Patient Name: BRYNN GONZALEZ MRN: [id number] date: 2000 Sex: F Assigned Patient Location: [facility] Current Patient Location: [facility] Accession/Order Number: [id number] Exam Date: 03/15/2024 15:40 Report Date: 03/15/2024 16:41 At the request of: WALDO ROJO Procedure: US OB BPP w non-stress EXAMINATION: US OB BPP w non-stress HISTORY:decreased movement abd. pain COMPARISON: No relevant comparison available. TECHNIQUE: Ultrasound biophysical profile was performed in the radiology department. BREATHING MOVEMENTS: 2 GROSS BODY MOVEMENTS: 2 TONE: 2 QUALITATIVE AMNIOTIC FLUID VOLUME: 2 PRESENTATION: CEPHALIC HEART RATE: 121.70 bpm AMNIOTIC FLUID VOLUME: 11.36 cm GESTATIONAL AGE: 33 weeks 4 days US/US OB BPP w non-stress IMPRESSION: Total biophysical profile score: 8 Electronically authenticated by: EDI REYES Date: 03/15/2024 16:41 Dictated By: Edi Reyes M.D. Signed By: 03/15/241642 DD/ 40 TD/TT: Otr Refrigerated Cdl Truck Driver: Procedure Note Radiology, Radiologist, MD - 03/15/2024 [place] [address] Ultrasound Report Signed Patient: BRYNN GONZALEZ MMR#: [id number] : 2000Acct:[id number] Age/Sex: Date: Loc: [facility] 250-[address]: Waldo Rojo D.O. Ordering Physician: Waldo Rojo D.O. Date of Service: 03/15/24 Procedure(s): US OB BPP w non-stress Accession Number(s): [id number] cc: JEANNA PASCUAL Corey D.O. The [place] [address] Patient Name: BRYNN GONZALEZ MRN: [id number] date: 2000 Sex: F Assigned Patient Location: [facility] Current Patient Location: [facility] Accession/Order Number: [id number] Exam Date: 03/15/2024 15:40 Report Date: 03/15/2024 16:41 At the request of: WALDO ROJO Procedure: US OB BPP w non-stress EXAMINATION: US OB BPP w non-stress HISTORY:decreased movement abd. pain COMPARISON: No relevant comparison available. TECHNIQUE: Ultrasound biophysical profile was performed in the radiology department. BREATHING MOVEMENTS: 2 GROSS BODY MOVEMENTS: 2 TONE: 2 QUALITATIVE AMNIOTIC FLUID VOLUME: 2 PRESENTATION: CEPHALIC HEART RATE: 121.70 bpm AMNIOTIC FLUID VOLUME: 11.36 cm GESTATIONAL AGE: 33 weeks 4 days US/US OB BPP w non-stress IMPRESSION: Total biophysical profile score: 8 Electronically authenticated by: EDI REYES Date: 03/15/2024 16:41 Dictated By: Edi Reyes M.D. Signed By:03/15/241642 DD/ 40 TD/TT: Otr Refrigerated Cdl Truck Driver: us Waldo Alia DO [facility] Final Result * URINE CULTURE, ROUTINE (03/15/2024 1:22 PM EST) URINE CULTURE, ROUTINE Urine Culture, Routine [facility] URINE CULTURE, ROUTINE Mixed urogenital dong TB URINE CULTURE, ROUTINE 25,000-50,000 colony forming units per mL [facility] URINE CULTURE, ROUTINE Performed at[facility], ROUTINE [address] [place] [id number] [facility] URINE CULTURE, ROUTINE Enterprise Applications Manager: Dc Mtz PhD, Phone: [phone] [facility] 03/15/2024 1:22 PM EST 03/15/2024 2:39 PM EST Narrative [facility] - 03/17/2024 12:07 AM EST Generic External Data Provider LAB BLOOD ORDERAB LES Final Result [facility] documented in this encounter Visit Diagnoses Not on filedocumented in this encounter Additional Health Concerns Assessment Noted Time PHQ-9 Depression Total Score: 14 023 10:43 AM EST documented as of this encounter Care Teams Oracle Data Warehouse Developer Relationship Specialty Start Date End Date Jeannie Reynolds MD [address] [place] [address] PCP - General Family Medicine 09/21/22 Anila Schneider, CROSSCUTTER [employer] VOLUNTEER [address] [place] [address] PCP - [place] [employer] 08/23/22 Jeannie Reynolds MD [address] [place] [address] PCP - [place] [employer] 08/23/24 Sarah Nelson NP [address] [place] [address] Nurse Practitioner Family Medicine 09/21/22 documented as of this encounter
--- OUTSIDE RECORDS SUMMARY | 2025-01-25 09:34 | XMS_ITS | Encounter Summary ---
Author Organization [facility] Address [address] [place] [address] Care Team Providers Care Hot Dimpling Machine Operator Name Role Phone Jeannie Reynolds MD Primary Care Provider [phone] Sarah Nelson MANAGER OF PROJECT MANAGEMENT Unavailable [phone] Anila Schneider DIRECTOR OF RESIDENCE LIFE-BEDSPREAD FOLDER Unavailable Jeannie Reynolds MD Unavailable [phone] Encounter Details Date Type Department Care Team ([facility] Contact Info) Description 12/16/2023 Clinisync Result Encounter [facility] External Department Unsolicited [...] Upcoming Encounters Date Type Department Care Team ([facility] st Contact Info) Description 01/25/2025 10:00 AM EDT Initial [facility] [place] [facility] [address] [place] [address] [place] [address] documented as of this encounter Procedures Procedure Name Priority Date/Time Associated Diagnosis Comments US OB CERVICAL LENGTH 12/16/2023 6:15 AM EDT documented in this encounter Results * US OB CERVICAL LENGTH (12/16/2023 6:15 AM EDT) Anatomical Region Laterality Modality Other 12/16/2023 6:15 AM EDT Narrative 12/16/2023 6:18 AM EDT [address] [address] Ultrasound Report Signed Patient: BRYNN GONZALEZ MR#: [id number] : 2000 Acct:[id number] Age/Sex: 23 / F ADM Date: 12/15/23 Loc: US Attending Dr: Yaritza Portillo Ordering Physician: Yaritza Portillo Date of Service: 12/15/23 Procedure(s): US OB cervical length Accession Number(s): [id number] cc: Yaritza Portillo; JEANNA PASCUAL [address] [address] Patient Name: BRYNN GONZALEZ MRN: [id number] date: 2000 Sex: F Assigned Patient Location: US Current Patient Location: Accession/Order Number: [id number] Exam Date: 12/15/2023 19:05 Report Date: 12/16/2023 06:15 At the request of: YARITZA PORTILLO Procedure: US OB cervical length EXAMINATION: US OB anatomy, US OB cervical length HISTORY: SCREENING, , FOR ANATOMIC SURVEY Z36.89 COMPARISON: Ultrasound OB transvaginal 09/23/2023 TECHNIQUE: Transabdominal sonographic examination was performed for obstetrical and evaluation. FINDINGS: Number: 1 Heart Rate: 153.41 bpm H.B. /min Amniotic Fluid Volume: Subjectively normal Placental Location: ANTERIOR with lower margin 3.6 cm from os. Cervix Length: 6.44 cm , closed ANATOMY: Normal Structures -cerebellum, choroid plexus, cisterna magna, lateral cerebral ventricles, orbits, midline falx, hard palate, four-chamber heart, RVOT, LVOT, stomach, kidneys, bladder, umbilical cord insertion into abdomen, three-vessel cord, cervical spine, thoracic spine, lumbar spine, sacral spine, right upper extremity, left upper extremity, right lower extremity, left lower extremity. SUBOPTIMALLY SEEN: None ABNORMALITIES: None BIOMETRY: BPD: 4.79 cm; 20 weeks 3 days; 45 % HC: 17.87 cm; 20 weeks 2 days; 30 % AC: 15.91 cm; 21 weeks 0 days; 59.30 % FL: 3.22 cm; 20 weeks 0 days; 23.40 % EFW:360.89 g; 43.50 % FL/AC: 20.22 FL/BPD: 67.23 HC/AC: 1.12 GESTATIONAL AGE: Age by EDC: 20 weeks 4 days Age by current US: 20 weeks 3 days JAYE by current US: 2024 JAYE by EDC: 2024-04-29 US/US OB cervical length IMPRESSION: 1. Single live intrauterine with growth detailed above. Electronically authenticated by: EDI REYES Date: 12/16/2023 06:15 Dictated By: Edi Reyes M.D. Signed By: 12/16/23617 DD/ 4 TD/TT: Supervisor Pipeline Maintenance: Procedure Note Radiology, Radiologist, MD - 12/16/2023 [place] [address] Ultrasound Report Signed Patient: BRYNN GONZALEZ MMR#: [id number] : 2000Acct:[id number] Age/Sex: Date: 12/15/23 Loc: US Attending Dr: Yaritza Portillo Ordering Physician: Yaritza Portillo Date of Service: 12/15/23 Procedure(s): US OB cervical length Accession Number(s): [id number] cc: Yaritza Portillo; JEANNA PASCUAL The [place] [address] Patient Name: BRYNN GONZALEZ MRN: [id number] date: 2000 Sex: F Assigned Patient Location: US Current Patient Location: Accession/Order Number: [id number] Exam Date: 12/15/2023 19:05 Report Date: 12/16/2023 06:15 At the request of: YARITZA PORTILLO Procedure: US OB cervical length EXAMINATION: US OB anatomy, US OB cervical length HISTORY: SCREENING, , FOR ANATOMIC SURVEY Z36.89 COMPARISON: Ultrasound OB transvaginal 09/23/2023 TECHNIQUE: Transabdominal sonographic examination was performed for obstetrical and evaluation. FINDINGS: Number: 1 Heart Rate: 153.41 bpm H.B. /min Amniotic Fluid Volume: Subjectively normal Placental Location: ANTERIOR with lower margin 3.6 cm from os. Cervix Length: 6.44 cm , closed ANATOMY: Normal Structures -cerebellum, choroid plexus, cisterna magna, lateral cerebral ventricles, orbits, midline falx, hard palate, four-chamberheart, RVOT, LVOT, stomach, kidneys, bladder, umbilical cord insertion intoabdomen, three-vessel cord, cervical spine, thoracic spine, lumbar spine, sacralspine, right upper extremity, left upper extremity, right lower extremity, leftlower extremity. SUBOPTIMALLY SEEN: None ABNORMALITIES: None BIOMETRY: BPD: 4.79 cm; 20 weeks 3 days; 45 % HC: 17.87 cm; 20 weeks 2 days; 30 % AC: 15.91 cm; 21 weeks 0 days; 59.30 % FL: 3.22 cm; 20 weeks 0 days; 23.40 % EFW:360.89 g; 43.50 % FL/AC: 20.22 FL/BPD: 67.23 HC/AC: 1.12 GESTATIONAL AGE: Age by EDC: 20 weeks 4 days Age by current US: 20 weeks 3 days JAYE by current US: 2024 JAYE by EDC: 2024-04-29 US/US OB cervical length IMPRESSION: 1. Single live intrauterine with growth detailed above. Electronically authenticated by: EDI REYES Date: 12/16/2023 06:15 Dictated By: Edi Reyes M.D. Signed By:12/16/2318 DD/ 0615 TD/TT: Supervisor Pipeline Maintenance: us Generic External Data Provider [facility] Final Result documented in this encounter Visit Diagnoses Not on filedocumented in this encounter Additional Health Concerns Assessment Noted Time PHQ-9 Depression Total Score: 14 023 10:43 AM EST documented as of this encounter Care Teams Hot Dimpling Machine Operator Relationship Specialty Start Date End Date Jeannie Reynolds MD [address] [place] [address] PCP - General Family Medicine 09/21/22 Anila Schneider APRN-BEDSPREAD FOLDER [address] [facility] [address] [place] [address] PCP - [place] [employer] 08/23/22 Jeannie Reynolds MD [address] [place] [address] PCP - [place] [employer] 08/23/24 Sarah Nelson NP [address] [place], [place] [id number] Nurse Practitioner Family Medicine 09/21/22 documented as of this encounter
--- OUTSIDE RECORDS SUMMARY | 2025-01-25 09:34 | XMS_ITS | Encounter Summary ---
Author Organization [facility] Address [address] [place] [address] Care Team Providers Care Remedy Developer Name Role Phone Jeannie Reynolds MD Primary Care Provider [phone] Sarah Nelson LAUNDROMAT WORKER Unavailable [phone] Anila Schneider ELECTRICIAN ELEVATOR MAINTENANCE-ACCOUNT LIAISON HOSPICE Unavailable Jeannie Reynolds MD Unavailable [phone] Encounter Details Date Type Department Care Team (Late st Contact Info) Description 04/11/2024 Clinisync Result Encounter [facility] External Department Unsolicited Waldo Rojo, DO [address] [facility] [address] [place], [place] [address] Social History Tobacco Use Types Packs/Day Years [...] 01/25/2025 10:00 AM EDT Initial [facility] [place] [facility] [address] [facility] [place] [address] documented as of this encounter Procedures Procedure Name Priority Date/Time Associated Diagnosis Comments US OB BPP W NON-STRESS 04/11/2024 3:49 PM EST documented in this encounter Results * US OB BPP W NON-STRESS (04/11/2024 3:49 PM EST) Anatomical Region Laterality Modality Other 04/11/2024 3:49 PM EST Narrative 04/11/2024 3:51 [place] [address] Ultrasound Report Signed Patient: BRYNN GONZALEZ MR#: [id number] : 2000 Acct:[id number] Age/Sex: 23 / F ADM Date: Loc: [facility] Attending Dr: Waldo Rojo D.O. Ordering Physician: Waldo Rojo D.O. Date of Service: 04/11/24 Procedure(s): US OB BPP w non-stress Accession Number(s): [id number] cc: JEANNA PASCUAL Corey D.O. The [address] [address] Patient Name: BRYNN GONZALEZ MRN: [id number] date: 2000 Sex: F Assigned Patient Location: [facility] Current Patient Location: [facility] Accession/Order Number: [id number] Exam Date: 04/11/2024 15:20 Report Date: 04/11/2024 15:49 At the request of: WALDO ROJO Procedure: US OB BPP w non-stress EXAMINATION: US OB BPP w non-stress HISTORY:decreased movement COMPARISON: Ultrasound OB biophysical 03/15/2024 TECHNIQUE: Ultrasound biophysical profile was performed in the radiology department. BREATHING MOVEMENTS: 2 GROSS BODY MOVEMENTS: 2 TONE: 2 QUALITATIVE AMNIOTIC FLUID VOLUME: 2 PRESENTATION: CEPHALIC HEART RATE: 133.00 bpm AMNIOTIC FLUID VOLUME: 12.99 cm GESTATIONAL AGE: 37 weeks 3 days US/US OB BPP w non-stress IMPRESSION: Total biophysical profile score: 8 Electronically authenticated by: EDI REYES Date: 04/11/2024 15:49 Dictated By: Edi Reyes M.D. Signed By: 04/11/24 1555 DD/ 1549 TD/TT: Complex Commercial Litigation Paralegal: Procedure Note Radiology, Radiologist, MD - 04/11/2024 [place] [address] Ultrasound Report Signed Patient: BRYNN GONZALEZ MMR#: [id number] : 2000Acct:[id number] Age/Sex: Date: Loc: [facility] 250-[address]: Waldo Rojo D.O. Ordering Physician: Waldo Rojo D.O. Date of Service: 04/11/24 Procedure(s): US OB BPP w non-stress Accession Number(s): [id number] cc: JEANNA PSACUAL ; Waldo Rojo D.O. The [place] [address] Patient Name: BRYNN GONZALEZ MRN: [id number] date: 2000 Sex: F Assigned Patient Location: [facility] Current Patient Location: [facility] Accession/Order Number: [id number] Exam Date: 04/11/2024 15:20 Report Date: 04/11/2024 15:49 At the request of: WALDO ROJO Procedure: US OB BPP w non-stress EXAMINATION: US OB BPP w non-stress HISTORY:decreased movement COMPARISON: Ultrasound OB biophysical 03/15/2024 TECHNIQUE: Ultrasound biophysical profile was performed in the radiology department. BREATHING MOVEMENTS: 2 GROSS BODY MOVEMENTS: 2 TONE: 2 QUALITATIVE AMNIOTIC FLUID VOLUME: 2 PRESENTATION: CEPHALIC HEART RATE: 133.00 bpm AMNIOTIC FLUID VOLUME: 12.99 cm GESTATIONAL AGE: 37 weeks 3 days US/US OB BPP w non-stress IMPRESSION: Total biophysical profile score: 8 Electronically authenticated by: EDI REYES Date: 04/11/2024 15:49 Dictated By: Edi Reyes M.D. Signed By:04/11/24 1551 DD/ 1549 TD/TT: Complex Commercial Litigation Paralegal: us Waldo Alia DO [facility] Final Result documented in this encounter Visit Diagnoses Not on filedocumented in this encounter Additional Health Concerns Assessment Noted Time PHQ-9 Depression Total Score: 14 023 10:43 AM EST documented as of this encounter Care Teams Remedy Developer Relationship Specialty Start Date End Date Jeannie Reynolds MD [address] [place] [address] PCP - General Family Medicine 09/21/22 Anila Schneider APRN-[facility] [address] [address] PCP - [place] [employer] 08/23/22 Jeannie Reynolds MD [address] [place] [address] PCP - [place] [employer] 08/23/24 Sarah Neslon NP [address] [place], [place] [phone] Nurse Practitioner Family Medicine 09/21/22 documented as of this encounter
--- OUTSIDE RECORDS SUMMARY | 2025-01-25 09:34 | XMS_ITS | Encounter Summary ---
Author Organization [facility] Address [address] [place] [address] Care Team Providers Care Assistant Terminal Manager Name Role Phone Jeannie Reynolds MD Primary Care Provider [phone] Sarah Nelson REPEATER OPERATOR Unavailable [phone] Anila Schneider INSTRUCTOR MODELING-HELMET BINDER Unavailable Jeannie Reynolds MD Unavailable [phone] Encounter Details Date Type Department Care Team (Late st Contact Info) Description 02/24/2024 Clinisync Result Encounter [facility] External Department Unsolicited Waldo Rojo, DO [address] [facility] [address] Mehul [address] La Cruz [place], [place] [id number] Social History Tobacco Use Types Packs/Day Years [...] AM EDT Initial [facility] [place] [facility] [address] [facility] [place] [address] documented as of this encounter Procedures Procedure Name Priority Date/Time Associated Diagnosis Comments US OB GROWTH 02/24/2024 8:02 AM EDT documented in this encounter Results * US OB GROWTH (02/24/2024 8:02 AM EDT) Anatomical Region Laterality Modality Other 02/24/2024 8:02 AM EDT Narrative 02/24/2024 8:05 AM EDT The [address] [address] Ultrasound Report Signed Patient: BRYNN GONZALEZ MR#: [id number] : 2000 Acct:[id number] Age/Sex: 23 / F ADM Date: 02/23/24 Loc: US Attending Dr: Waldo Rojo D.O. Ordering Physician: Waldo Rojo D.O. Date of Service: 02/23/24 Procedure(s): US OB growth Accession Number(s): [id number] cc: JEANNA PASCUAL Corey D.O. The [address] [address] Patient Name: BRYNN GONZALEZ MRN: [id number] date: 2000 Sex: F Assigned Patient Location: US Current Patient Location: Accession/Order Number: [id number] Exam Date: 02/23/2024 19:12 Report Date: 02/24/2024 08:02 At the request of: WALDO ROJO Procedure: US OB growth EXAMINATION: US OB growth HISTORY: EXCESSIVE GROWTH AFFECTING O36.60X0 COMPARISON: No relevant comparison available. FINDINGS: Heart Rate: 134.33 bpm Amniotic Fluid Volume: 16.1 cm, largest fluid pocket 7.6 cm Number: 1 Position: CEPHALIC BIOMETRY: BPD: 7.83 cm; 31 weeks 3 days; 65.80 % HC: 28.40 cm; 31 weeks 1 day; 29.80 % AC: 27.53 cm; 31 weeks 4 days; 75.70 % FL: 5.67 cm; 29 weeks 5 days; 16.30 % EFW: 1675.87 g; 51.50 %, 3 lbs. 11 oz. FL/AC: 20.60 FL/BPD: 72.40 HC/AC: 1.03 GESTATIONAL AGE: Age by EDC: 30 weeks 4 days JAYE by EDC: 2024-04-29 Age by US: 31 weeks 0 days JAYE by US: 2024-04-26 US/US OB growth IMPRESSION: Normal interval growth Electronically authenticated by: HAYLIE ASCENCIO Date: 02/24/2024 08:02 Dictated By: Haylie Ascencio M.D. Signed By: 02/24/24804 DD/ 1 TD/TT: Striper: Procedure Note Radiology, Radiologist, MD - 02/24/2024 [place] [address] Ultrasound Report Signed Patient: BRYNN GONZALEZ MMR#: [id number] : 2000Acct:[id number] Age/Sex: 23 / FADM Date: 02/23/24 Loc: US Attending Dr: Waldo Rojo D.O. Ordering Physician: Waldo Rojo D.O. Date of Service: 02/23/24 Procedure(s): US OB growth Accession Number(s): [id number] cc: JEANNA PASCUAL ; Waldo Rojo D.O. The [place] [id number] Patient Name: BRYNN GONZALEZ MRN: [id number] date: 2000 Sex: F Assigned Patient Location: US Current Patient Location: Accession/Order Number: [id number] Exam Date: 02/23/2024 19:12 Report Date: 02/24/2024 08:02 At the request of: WALDO ROJO Procedure: US OB growth EXAMINATION: US OB growth HISTORY: EXCESSIVE GROWTH AFFECTING O36.60X0 COMPARISON: No relevant comparison available. FINDINGS: Heart Rate: 134.33 bpm Amniotic Fluid Volume: 16.1 cm, largest fluid pocket 7.6 cm Number: 1 Position: CEPHALIC BIOMETRY: BPD: 7.83 cm; 31 weeks 3 days; 65.80 % HC: 28.40 cm; 31 weeks 1 day; 29.80 % AC: 27.53 cm; 31 weeks 4 days; 75.70 % FL: 5.67 cm; 29 weeks 5 days; 16.30 % EFW: 1675.87 g; 51.50 %, 3 lbs. 11 oz. FL/AC: 20.60 FL/BPD: 72.40 HC/AC: 1.03 GESTATIONAL AGE: Age by EDC: 30 weeks 4 days JAYE by EDC: 2024-04-29 Age by US: 31 weeks 0 days JAYE by US: 2024-04-26 US/US OB growth IMPRESSION: Normal interval growth Electronically authenticated by: HAYLIE ASCENCIO Date: 02/24/2024 08:02 Dictated By: Haylie Ascencio M.D. Signed By:02/24/24804 DD/ 1 TD/TT: Striper: Waldo Rojo DO [facility] Final Result documented in this encounter Visit Diagnoses Not on filedocumented in this encounter Additional Health Concerns Assessment Noted Time PHQ-9 Depression Total Score: 14 023 10:43 AM EST documented as of this encounter Care Teams Assistant Terminal Manager Relationship Specialty Start Date End Date Jeannie Reynolds MD [address] [place] [address] PCP - General Family Medicine 09/21/22 Anila Schneider APRN-HELMET BINDER [address] [facility] [address] [place] [address] PCP - [place] [employer] 08/23/22 Jeannie Reynolds MD [address] [place], [place] [phone] PCP - [place] [employer] 08/23/24 Sarah Nelson NP [address] [facility] [place], [place] [id number] Nurse Practitioner Family Medicine 09/21/22 documented as of this encounter
--- OUTSIDE RECORDS SUMMARY | 2025-01-25 09:34 | XMS_ITS | Encounter Summary ---
Author Organization [facility] Address [address] [place] [address] Care Team Providers Care Clinic Specialist Name Role Phone Jeannie Reynolds MD Primary Care Provider [phone] Sarah Nelson LICENSING SPECIALIST Unavailable [phone] Anila Schneider SNACK BAR COOK-RADIO EQUIPMENT REPAIRER Unavailable Jeannie Reynodls MD Unavailable [phone] Encounter Details Date Type Department Care Team ([facility] Contact Info) Description 12/16/2023 Clinisync Result Encounter [...] Upcoming Encounters Date Type Department Care Team ([facility] st Contact Info) Description 01/25/2025 10:00 AM EDT Initial [facility] [place] [facility] [address] [place] [address] [place] [address] documented as of this encounter Procedures Procedure Name Priority Date/Time Associated Diagnosis Comments US OB ANATOMY 12/16/2023 6:15 AM EDT documented in this encounter Results * US OB ANATOMY (12/16/2023 6:15 AM EDT) Anatomical Region Laterality Modality Other 12/16/2023 6:15 AM EDT Narrative 12/16/2023 6:18 AM EDT [address] [address] Ultrasound Report Signed Patient: BRYNN GONZALEZ MR#: [id number] : 2000 Acct:[id number] Age/Sex: 23 / F ADM Date: 12/15/23 Loc: US Attending Dr: Yaritza Portillo Ordering Physician: Yaritza Portillo Date of Service: 12/15/23 Procedure(s): US OB anatomy Accession Number(s): [id number] cc: Yaritza Portillo; JEANNA PASCUAL [address] [address] Patient Name: BRYNN GONZALEZ MRN: [id number] date: 2000 Sex: F Assigned Patient Location: US Current Patient Location: Accession/Order Number: [id number] Exam Date: 12/15/2023 19:05 Report Date: 12/16/2023 06:15 At the request of: YARITZA PORTILLO Procedure: US OB anatomy EXAMINATION: US OB anatomy, US OB cervical [...] 2024 JAYE by EDC: 2024-04-29 US/US OB anatomy IMPRESSION: 1. Single live intrauterine with growth detailed above. Electronically authenticated by: EDI REYES Date: 12/16/2023 06:15 Dictated By: Edi Reyes M.D. Signed By: 12/16/23617 DD/ 4 TD/TT: Auto Clutch Specialist: Procedure Note Radiology, Radiologist, MD - 12/16/2023 [place] [address] Ultrasound Report Signed Patient: BRYNN GONZALEZ [facility]#: [id number] : 2000Acct:[id number] Age/Sex: Date: 12/15/23 Loc: US Attending Dr: Yaritza Portillo Ordering Physician: Yaritza Portillo Date of Service: 12/15/23 Procedure(s): US OB anatomy Accession Number(s): [id number] cc: Yaritza Portillo; JEANNA PASCUAL The [place] [id number] Patient Name: BRYNN GONZALEZ MRN: [id number] date: 2000 Sex: F Assigned Patient Location: US Current Patient Location: Accession/Order Number: [id number] Exam Date: 12/15/2023 19:05 Report Date: 12/16/2023 06:15 At the request of: YARITZA PORTILLO Procedure: US OB anatomy EXAMINATION: US OB anatomy, US OB cervical [...] 2024 JAYE by EDC: 2024-04-29 US/US OB anatomy IMPRESSION: 1. Single live intrauterine with growth detailed above. Electronically authenticated by: EDI REYES Date: 12/16/2023 06:15 Dictated By: Edi Reyes M.D. Signed By:12/16/23617 DD/ 4 TD/TT: Auto Clutch Specialist: us Generic External Data Provider [facility] Final Result documented in this encounter Visit Diagnoses Not on filedocumented in this encounter Additional Health Concerns Assessment Noted Time PHQ-9 Depression Total Score: 14 023 10:43 AM EST documented as of this encounter Care Teams Clinic Specialist Relationship Specialty Start Date End Date Jeannie Reynolds MD [address] [place] [address] PCP - General Family Medicine 09/21/22 Anila Schneider APRN-RADIO EQUIPMENT REPAIRER [address] [address] PCP - [place] [employer] 08/23/22 Jeannie Reynolds MD [address] [place] [address] PCP - [place] [employer] 08/23/24 Sarah Nelson NP [address] [place], [place] [phone] Nurse Practitioner Family Medicine 09/21/22 documented as of this encounter
--- OUTSIDE RECORDS SUMMARY | 2025-01-25 09:34 | XMS_ITS | Encounter Summary ---
Author Organization [facility] Address [address] [place] [address] Care Team Providers Care Holistic Nutritionist Name Role Phone Jeannie Reynolds MD Primary Care Provider [phone] Sarah Nelson ENGLISH PROFESSOR Unavailable [phone] Anila Schneider JUNIOR GRAPHIC DESIGNER-PYTHON JAVA DEVELOPER Unavailable Jeannie Reynolds MD Unavailable [phone] Encounter Details Date Type Department Care Team (Late st Contact Info) Description 01/26/2024 Abstract [facility] [address] [facility] [place] [id number] Shaw Rojo DO [address] [facility] [address] [place], [place] [address] Social History Tobacco Use Types Packs/Day Years [...] 10:00 AM EDT Initial [facility] [address] [place] [address] [place] [address] documented as of this encounter Visit Diagnoses Not on filedocumented in this encounter Additional Health Concerns Assessment Noted Time PHQ-9 Depression Total Score: 14 023 10:43 AM EST documented as of this encounter Care Teams Holistic Nutritionist Relationship Specialty Start Date End Date Jeannie Reynolds MD [address] [place] [address] PCP - General Family Medicine 09/21/22 Anila Schneider APRN-PYTHON JAVA DEVELOPER [address] [facility] [address] [place] [address] PCP - [place] [employer] 08/23/22 Jeannie Reynolds MD [address] [place], [place] [phone] PCP - [place] [employer] 08/23/24 Sarah Nelson NP [address] [place] [address] Nurse Practitioner Family Medicine 09/21/22 documented as of this encounter
--- OUTSIDE RECORDS SUMMARY | 2025-01-25 09:35 | XMS_ITS | CCD ---
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 [facility] Glucose, UA Negative Negative - 1999(110) ++++ mg/dL [facility] Interpretation and review of laboratory results Abnormal [facility] Ketones, UA Negative Negative - 160(16) ++++ mg/dL [facility] Leukocytes, UA Negative Negative - 500+++ Quyen/mcL [facility] Nitrite, UA Negative Negative - Positive [facility] pH, UA 5.5 5 - 9 [facility] Protein, UA Negative Negative - 1999(20) ++++ mg/dL [facility] Spec Grav, UA 1.202 1 - 1.03 [facility] Urobilinogen, UA 1.0 0.2 - 12 mg/dL [facility] TBH UA (CLEAN/CATCH) 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 OPERATIONS 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/CESILIA RO IF IND.on 03-15-2024 BILIRUBIN URINE Negative NEGATIVE [facility] BLOOD URINE SMALL Abnormal NEGATIVE [facility] Clarity (U) CLEAR CLEAR [facility] Color (U) YELLOW YELLOW [facility] GLUCOSE URINE UA Negative NEGATIVE mg/dL [facility] Interpretation and review of laboratory results Abnormal [facility] Ketones Ql (U) TRACE Abnormal NEGATIVE mg/dL [facility] Leukocyte esterase Test strip Ql (U) SMALL Abnormal NEGATIVE [facility] NITRITE URINE Negative NEGATIVE [facility] pH (U) 6.0 [pH] 5.0 - 9.0 [facility] PROTEIN URINE TRACE NEG/TRACE mg/dL [facility] SPECIFIC GRAVITY URINE 1.025 1.005 - 1.025 [facility] URINE MICROSCOPIC INDICATED YES [facility] UROBILINOGEN URINE 1.0 EU/dL 0.2 - 1.0 EU/dL [facility] Urinalysis macro (dipstick) panel (U)on 03-08-2024 Bilirubin, UA Negative Negative - 4(70) +++ mg/dL [facility] Blood, UA Positive Negative - 50 Joey/mcL [facility] Comment on above: trace-intact Clarity, UA Clear [facility] Color, UA Yellow [facility] Glucose, UA Negative Negative - 1999(110) ++++ mg/dL [facility] Interpretation and review of laboratory results Abnormal [facility] Ketones, UA Negative Negative - 160(16) ++++ mg/dL [facility] Leukocytes, UA Negative Negative - 500+++ Quyen/mcL [facility] Nitrite, UA Negative Negative - Positive [facility] pH, UA 7.5 5 - 9 [facility] Protein, UA Negative Negative - 1999(20) ++++ mg/dL [facility] Spec Grav, UA 1.02 1 - 1.03 [facility] Urobilinogen, UA 0.2 0.2 - 12 mg/dL [facility] Urinalysis macro (dipstick) panel (U)on 02-23-2024 Bilirubin, UA Negative Negative - 4(70) +++ mg/dL [facility] Blood, UA Negative Negative - 50 Joey/mcL [facility] Clarity, UA Clear [facility] Color, UA Yellow [facility] Glucose, UA Negative Negative - 1999(110) ++++ mg/dL [facility] Interpretation and review of laboratory results Abnormal [facility] Ketones, UA Positive Negative - 160(16) ++++ mg/dL [facility] Comment on above: 15 mg Leukocytes, UA Trace Negative - 500+++ Quyen/mcL [facility] Nitrite, UA Negative Negative - Positive [facility] pH, UA 6.5 5 - 9 [facility] Protein, UA Trace Negative - 1999(20) ++++ mg/dL [facility] Spec Grav, UA 1.03 1 - 1.03 [facility] Urobilinogen, UA 1.0 0.2 - 12 mg/dL [facility] Urinalysis macro (dipstick) panel (U)on 02-07-2024 Bilirubin, UA Negative Negative - 4(70) +++ mg/dL [facility] Blood, UA Negative Negative - 50 Joey/mcL [facility] Clarity, UA Clear [facility] Color, UA Yellow [facility] Glucose, UA Negative Negative - 1999(110) ++++ mg/dL [facility] Interpretation and review of laboratory results Normal [facility] Ketones, UA Negative Negative - 160(16) ++++ mg/dL [facility] Leukocytes, UA Negative Negative - 500+++ Quyen/mcL [facility] Nitrite, UA Negative Negative - Positive [facility] pH, UA 7 5 - 9 [facility] Protein, UA Negative Negative - 1999(20) ++++ mg/dL [facility] Spec Grav, UA 1.02 1 - 1.03 [facility] Urobilinogen, UA 0.2 0.2 - 12 mg/dL [facility] GLUCOSE 1 HOURon 02-06-2024 Glucose [Mass/Vol] 136 mg/dL High NINF - 13 0 mg/dL [facility] Interpretation and review of laboratory results Abnormal [facility] Urinalysis macro (dipstick) panel (U)on 01-12-2024 Bilirubin, UA Negative Negative - 4(70) +++ mg/dL [facility] Blood, UA Negative Negative - 50 Joey/mcL [facility] Clarity, UA Clear [facility] Color, UA Yellow [facility] Glucose, UA Negative Negative - 1999(110) ++++ mg/dL [facility] Interpretation and review of laboratory results Abnormal [facility] Ketones, UA Negative Negative - 160(16) ++++ mg/dL [facility] Leukocytes, UA Positive Negative - 500+++ Quyen/mcL [facility] Comment on above: small Nitrite, UA Negative Negative - Positive [facility] pH, UA 7.0 5 - 9 [facility] Protein, UA Positive Negative - 1999(20) ++++ mg/dL [facility] Comment on above: 30 Spec Grav, UA 1.025 1 - 1.03 [facility] Urobilinogen, UA 1.0 0.2 - 12 mg/dL [facility] AFP, SERUM, OPEN SPINA BIFID Aon 12-19-2023 AFP MOM 0.78 . [facility] AFP VALUE 38.1 ng/mL . [facility] COMMENT: Comment . [facility] Comment on above: Nereyda Laguna , Ph.D., [facility] Director References: Available Upon Request. Multiples Of Median Cutoffs For AFP Elevations Garcia 2.5 Black 2.8 IDD 2.0 Twins 4.5 Abbreviation Definitions IDD - Insulin Dep Diabetes OSBR - Open Spina Bifida Risk For further inquiries contact [employer] at [phone]. This test was developed and its performance characteristics determined by [employer]. It has not been cleared or approved by the Food and Drug Administration. Performed at: [facility] [address], [place] [id number] Defense Analyst: Ezra Leo [facility], Phone: [phone] GEST. AGE ON COLLECTION DATE 20.4 . weeks [facility] GESTAT. AGE BASED ON Ultrasound . [facility] Comment on above: 20.4 on 12/14/2023 Recalculations are not recommended when gestational dating by LMP and ultrasound are within 10 days. INSULIN DEP DIABETES No . [facility] INTERPRETATION Comment . [facility] Comment on above: Interpretation: Scre [...] Customer Services to discuss available options. The [place] [employer] recommends amniocentesis be offered to women age 35 and older. [age] [facility] MULTIPLE GESTATION No . [facility] [place] [address] . [facility] RACE . [facility] RESULTS Report . [facility] TEST RESULTS: Negative . [facility] WEIGHT 219 . lbs [facility] N N ULTRASOUND [id number] 3 20 N 1 Y 219 N N N N N White/ [facility] URETHRITIS/DISCHARGE PLUS VA GINITIS (HTRX)on 12-16-2023 ATOPOBIUM VAGINAE 21.553 Abnormal [facility] ATOPOBIUM VAGINAE Detected Abnormal [facility] BVAB 2,3 (BACTERIAL VAGINOSIS ASSOCIATED BACTERIA 2, 3); MOBILUNCUS SPP 18.812 Abnormal [facility] BVAB 2,3 (BACTERIAL VAGINOSIS ASSOCIATED BACTERIA 2, 3); MOBILUNCUS SPP Detected Abnormal [facility] CLIFFORD ALBICANS, PARAPSILOSIS, TROPICALIS 0.000 [facility] CLIFFORD ALBICANS, PARAPSILOSIS, TROPICALIS Not detected [facility] CLIFFORD GLABRATA 0.000 [facility] CLIFFORD GLABRATA Not detected [facility] CLIFFORD KRUSEI 0.000 [facility] CLIFFORD KRUSEI Not detected [facility] CHLAMYDIA TRACHOMATIS 0.000 [facility] CHLAMYDIA TRACHOMATIS Not detected N [facility] ERMB, C; MEFA 18.831 Abnormal [facility] ERMB, C; MEFA Detected Abnormal [facility] GARDNERELLA VAGINALIS 24.173 Abnormal [facility] GARDNERELLA VAGINALIS Detected Abnormal [facility] Interpretation and review of laboratory results Abnormal [facility] MEGASPHAERA (TYPES 1, 2) 19.768 Abnormal [facility] MEGASPHAERA (TYPES 1, 2) Detected Abnormal [facility] MYCOPLASMA GENITALIUM 0.000 [facility] MYCOPLASMA GENITALIUM Not detected N [facility] NEISSERIA GONORRHOEAE 0.000 [facility] NEISSERIA GONORRHOEAE Not detected N [facility] TET B, TET M 26.704 Abnormal [facility] TET B, TET M Detected Abnormal [facility] TRICHOMONAS VAGINALIS 0.000 [facility] TRICHOMONAS VAGINALIS Not detected N [facility] Cytology Cervical or vaginal smear or scraping studyon 12-14-2023 [facility] Urinalysis macro (dipstick) panel (U)on 12-14-2023 Bilirubin, UA Negative Negative - 4(70) +++ mg/dL [facility] Blood, UA Negative Negative - 50 Joey/mcL [facility] Clarity, UA Clear [facility] Color, UA Yellow [facility] Glucose, UA Negative Negative - 1999(110) ++++ mg/dL [facility] Interpretation and review of laboratory results Abnormal [facility] Ketones, UA Positive Negative - 160(16) ++++ mg/dL [facility] Comment on above: trace Leukocytes, UA Negative Negative - 500+++ Quyen/mcL [facility] Nitrite, UA Negative Negative - Positive [facility] pH, UA 6.5 5 - 9 [facility] Protein, UA Negative Negative - 1999(20) ++++ mg/dL [facility] Spec Grav, UA 1.010 1 - 1.03 [facility] Urobilinogen, UA 0.2 0.2 - 12 mg/dL [facility] Coding Summaryon 10-11-2023 Coding Summary HTMLBase 64 DxjemauePJn4xIr+PGh lYWQ+MM9RHTDmK09yyB WjlB5kS7MSZLqZAweuI YLUQLkSWqVoudUsMU1o aXNjZXJu IC8+WG0hYFTjIvdqtYN jr4V0cOG8J99apm4sAB onuJB9HWNcNmGzdgwvg 7dptTz8ASjnTgybQcEf BLScbN62PXM2eE33Nx4 5fJEbzRLtp4bgpMy6Db DmEOKrTNI5xXwmHUnrk 5OnMZRpN26joWTif9P7 IGNvbGxhcHNlOyBlbXB 7dZ9bWLfswugna6jmvk dyTrk8yz27tRQdi9W3b DU2D0IbdhI9JDQyaMSi CiewuYHNiI5iucuql4i kwwryLwHrFEBmQHs1PE m5GOGfkMgfLaAuPW30L JZ3YPOcfxRfI9YrCMEs zOiqCfK0r7O4Me3HS6H XMimjT0BBGQGTBKtvzN Q+GN40sr28S6BlOvedQ fm6FBRmTZS2pBQ3oI6x ALAeRBzmg6L5rNM4X9P yrfBxqu7hs8wmEPBrVT ihN04tqYQig3K1JTZxi IR8BFFxyGpiFqGomQ48 Oyc+YKCvjXxwi7AuVqi vg1mnx8whmIn0XjpxEV GtrfAobLfkNUH7e0UwB w3gNPDobUR9pAR6mX6q UrRuLaU1JXchW055CwY wjFBxGysqL31eH1GwfH A+WXYqXuj0GSKgdLxdX T2wB0NvAGCfncclwNOe hHakUT1bEWTetixyZAM ysP9wXSFaW2r9LiNtRj N1VIevR9LjJHZxieeaZ n68zD6aIlVmLbY2LUde E5FepwE2UQJmhWYjPNm eTEB2T15tk8G7CIEgAF NvTFC6pAM9wD5cnKies jogbGVmdDsgdmVydGlj JLchMSkpA616CGYsvWl nPkNvZGluZyBEYXRlOi AgMDYvMTgvMjAyNDwvd GQ+YOZoRDY5fJwjPSOv fPYeXQthEp1ypVnimDd qPS2jZWPiozpkEFZrcM 4lRTDbgPPypEbsSJ8xU AMjtmzik547QqTmPWR2 HANgyZSnR2QbfN4dGvQ zHUQpPAPcO6CixIFoIU woA503RUvaMcM2NAMoc xLiH6RsXGUaiSaiAuX2 f1E4Jy2Tt3DsatszR3I phNObIgHhJctgHAa0K0 RkPjwvdHI+GZ61MXHvO W39ZJl2AQP8oFopRHlo ASAwN0SpkT3dFaTrJBS kZGRkOyc+PHRhYmxlIH dpZHRoPScxMDAlJyBzd GaxKM7nIe8qWIHiVTNc sPwosYHzUvWzz2rfVYL qRTscBQ8paBksI4HokP W0USQbb4q8Em94E02iZ 3JvdXA+RSShbVJ0pLA5 kP7cQlXvJcP3OOloL82 1XcWcyGLcGtdqc7rqp2 hpcRy6MhW3JOBhmcEzh QcsAUZ8t4RtNl93B65g IHdpZHRoPSIxNSUiIHZ ghLsyhv2rdS9gTe3+PG IpnXI4cZI5lN6ySaSbI gW3DUdvH114SfDzlXFu Stkdf0vyk2lzaRb5EmS cPPRfouNpvTxzXRB8x2 XlQk09A7EpsWwjj3XkC ng5to33iCRfj8H5cQW0 W1MvLSCirobfzDZpxId hLL0oQFShthhlOXLhkJ 8bEXBhR3w9QiVsUjL3K JphB3ZcpwN9VBSwrDZm LFLohQRVrE0cipgcb4a heqgwKpDuOAHjXBh7ON m1DYQgkKxeRbHsLNK5Z lX9PXI2iBAflJ2tbIeu epfuxN1kClu+RMV1uSW pdDKYLA7yNrbwfGO+PH OuDIV4aOmpGWhvYTIle V8hCFQfD1x3AbPuHvC0 KQmlJ2AzkhL9ZDOshDX jVVImnKUClK6ccbttg0 zzwfhhQfMhAGWoGWy1N Qg1FZUwfWxiIzGvCCS4 GpO5GXZ4yUCgmH0saWb oapkskZ4lMgg+QmlydG qvBDH8OZv9O7QeLyq4I IQetMmpLZ4zbOUkQVpp Wq9ooVgtvLhsDV6uVME xzyngx417WwHfl5zjRK QtqOXlIHqqPTL3R47bh 1O0ZBUlABGrKFA5oPK5 aB9zcKkawqapgIZavTg gdmVydGljYWwtYWxpZ2 07EDMjrCiaUcWpPSy8Y 1RwMtg6YXXjyZjbTT8o wKRaIMhrGp5hrUvbkZb fWT5tCSXjiqdqf711Nt Nhk9vnQQQybAYrRBiuD QN1H59kt5S3EUBvTKAd OIE4bRS2aV0xwLyjcas gbGVmdDsgdmVydGljYW hqXRgvW997RBHhkPzpB wEkjXj4I3RlVag9YBZy oZgnSQ6pqIQsPImjKo4 brGkcjEszLN8qSQZsiv jzi100YuWtw9hiHDXxb ONcDRwvHEU9D49hs2N0 YSHnMNTjBTO3dQD0yG3 hbGlnbjogbGVmdDsgdm QbxNfmXVvtPAwkY654M HRvcDsnPlBhdGllbnQg QXgcWCr3Q1GiAnscgBJ +PK79IDAnTW12eOHryF Zsz3zatXl0SwXvCIBjD IG7gDgmCSqci2VrXHQf F91udQYuv4G4LYYviJj szTKxDoWsoYV5lP0xKH rhinmgt1ncsumkWagfz 5ddbc43dB68R84kUMie ZHRoPSIzMCUiIHZhbGl bvc4geY3wNg3+PGNvbC Z7bGH8mD2mRIGgMvU5Q NvjX376ZaPoiBMzQxuq b7rtt8mqvBo9OjA9NQU ecuXnxAjoRKU4r4RhQj 23C79gFLzmSONqCYEmV UAuXSCinMsjce7lwS6x Ii8+XKRpxOA7bCZ4dW5 sReTsYkE7BFmnD676Vf AhhBWdZvblZ14zW3Agi XA+OHQgOie4HZKrtYoi BA7ikMOkNVkvBz1rWZV 3RoVuFoMjCLxfP8BeCC QdcwirfdaphFJ2DEReO MJgiI22Wh1mtXdvOKXm yWBIbI9ccmguy7zqrvt xTdEcJFXmBDn6VKi7GO IfuPnoCvCuYBW0XsR6G IE7aDKzeX1cwByktzmz cO0wW8PjTMRudtwqDx1 1nU5hYwQeJxY3ZCmrOf c+QkFLRVIsIEFMRVhBT kRSQSBNSUNIRUxMRTwv dGQ+XMOoTHE1tOwyHBc nUTQydK6wIRJhY3r0Ob OhGvI1FBxpE1GcPTEbq beyHh35iD3zKsBaCvV4 VHstP1DjhhP6CKMgkBQ vJQrvZHY0D50hv0N6RP FtKFEeYAW8hOA7uG5hn GlnbjogbGVmdDsgdmVy mRtsVPpaJRndE362ODW jaRigUzZuJlW7PhLmPG H7W5OiPdk5ULGbfCccP W9hrQVeOPtmRc3jsOph cPmbET2zNEPwlmbcHQJ lqM0eOYQosWDptCzwCO 1iHBGbifckf485HdAzE RO2MBLecRJnI5QyqD8m KfWgZWExAXFdI9FmyFS aPTsoA203WIqxZxS6TC WtruKuO1NzMNTlsFpoL pI0a6U2Hd4mOiXGZTBh czwvdGQ+MVOpFKX0xNu jUUctCSVvlH9sHNRoJ9 w1MhRkQeT8MYebW8ScK QPzoiorNg21iU4lAkWv AaR1WKpxA9WzgjP3PAE wbKXlPZwjZDM2X26qt8 Z1JNLmLOIjQZN2gVD9b W8ieOdsymwagFXmoNeo pxAhcIutHXnfLBriW28 6IHRvcDsnPkZFTUFMRT wvdGQ+MLVcPVX7rWptI YwyZMGmcK2aGDPzA0h7 IbBuPxI9HBhsN9CdDUU oqjxtJe72dU6hYhFeHv Z4TPixF0WwvpH6KASqc WTvBWzhGFX4O80oe2H0 KFDzYOSzVLI4aIU3bQ0 hbGlnbjogbGVmdDsgdm ArsXfkXVwdTFleL156X RFqqRrwYr6NCQ49ZM44 Q3GjVwwqwVAmqWQ+PHR hYmxlIHdpZHRoPScxMD JnZjCxeVyaFX5fKp9zB GVyLWNvbGxhcHNlOiBj q0rwDUBrLBqlMK0mvLb fF6UrgYM2FNGsb9q6Bh 92T22kZ1UhnVL+PGNvb KE3qOO3dU5eJoTxEhK0 DOdyZ371NiZwoPQcNjf kr8cur1njyYi3OrCqPD WuvhKmrTxsOJP1m6CkE g05N09sQWkdQZRxUPCn UWXzNAIupAhjck6fdW6 wIi8+KEXxlAY8nUB9vH 2oUzAkRuW2HRpfF898P cUmgTNuLdoaO76aV6Sl dXA+XWTwMyo5UQCyrBz dAF5uuYTrOXxySu9iZS G4QlHbAdFoBMnvO0BiL TXhtqvtbzvmqLA5TDGs BVBwsW73Aa1vwFytCy0 lSMRrXXB6WGQrgHOxS4 XkbJ4sFnTlTKDtUUYyE 5CzvGUpOAjqR906DPng EtE0LGIlseZqM3FfBUW uiKqcXbJ2y1I4Ms7XuX xohWXbPM2eRyIsFNq3L 1LjIus1LMZrlUfvZM5o vZWgWAizHt9eiDgrzGg gIN3gZMXbzfhsp573Xl Avc8enRQJvvAIwJRseK ON1U53ht3V5YGWzQVXb YIT8xTH9cD8ppDhalhm gbGVmdDsgdmVydGljYW dwKBvxQ205HJLgeZsvH pPOXds1C3XfIgk9AHWj iGipUK7mfPJwLRrlHd2 ctSmkbIfbVY0jPXLipm tna562JqCrd1awFBCsk GTzTVbbJKG5F11ee1T7 QLJxEIPrHPR5gFV3fQ4 hbGlnbjogbGVmdDsgdm IetDvfCFhrCMhbO631H EYprJnyZu1INli5C3Hn Bhb0ZAQfkXzkXU7nxOO kNCvvBx4spVdabRcsLT 5jXYZpdepwu822CjMre 1zzNYRksWHdFKpwEDV9 W48wf7U6VIMvHYHgXOS 2lEG6iE6yuSjrftcdsS VmdDsgdmVydGljYWwtY HuiB126SDAkwJvpPpYo eWVyOjwvdGQ+WW25hf8 8V2InYedgEhf9GZKuMI D5nKE1cT6fXFQlUUbfd 3O7wZF3E9DwjhEmyr9b b2x (more content not included)... Normal [facility] C Urineon 10-08-2023 C Urine 45,000 [...] <=0.5/9.5 Verified Vanc S 2 Verified Normal [facility] Comment on above: Performed By: #### 2 [id number] #### [facility] (DEFAULT) [address] [place] [id number] HBsAg Screen LCon 10-07-2023 HBsAg Screen LC Negative Invalid Interpretation Code Negative [facility] Comment on above: Result Comment: Perf ormed At: [facility] [address] [id number] Bibi Irwin PhD Ph:[phone] Performed By: #### 3 [id number] #### [facility] (DEFAULT) [address] [place] [address] [id number] HCV Antibody LCon 10-07-2023 Hep C Virus Ab LC Non-Reactive Invalid Interpretation Code Non Reactive [facility] Comment on above: Result Comment: HCV antibody alone does not differentiate between previously resolved infection and active infection. Equivocal and Reactive HCV antibody results should be followed up with an HCV RNA test to support the diagnosis of active HCV infection. Performed At: [address] [id number] Bibi Irwin PhD Ph:[phone] Performed By: #### 3 [id number] #### [facility] (DEFAULT) [address] [place] [address] [id number] HIV 4th Gen Screen w Reflex LCon 10-07-2023 HIV Scr 4th Gen LC Non-Reactive Invalid Interpretation Code Non Reactive [facility] Comment on above: Result Comment: HIV Negative HIV-1/HIV-2 antibodies and HIV-1 p24 antigen were NOT detected. There is no laboratory evidence of HIV infection. Performed At: [address] [id number] Bibi Irwin PhD Ph:[phone] Performed By: #### 1 [id number] #### [facility] (DEFAULT) [address] [place] [id number] RPR, Rfx Qn RPR/Confirm TP L Con 10-07-2023 RPR LC Non-Reactive Invalid Interpretation Code Non Reactive [facility] Comment on above: Result Comment: Perf ormed At: [address] [id number] Bibi Irwin PhD Ph:[phone] Performed By: #### 3 [id number] #### [facility] (DEFAULT) [address] [place] [address] [id number] Rubella Antibodies, IgG LCon 10-07-2023 Rubella Antibodies, IgG LC 1.90 index Invalid Interpretation Code Immune >0.99 [facility] Comment on above: Result Comment: Non- immune <0.90 Equivocal 0.90 - 0.99 Immune >0.99 Performed At: [address] [id number] Bibi Irwin PhD Ph:[phone] Performed By: #### 3 [id number] #### [facility] (DEFAULT) [address] [place] [id number] .Auto Diff 1on 4 Auto Jefferson % 4 % Normal -12 [facility] Comment on above: Performed By: #### 1 [id number] #### [facility] (DEFAULT) [address] [place] [address] Baso Abs# 0.0 x10 Normal 0.0-0.2 [facility] Comment on above: Performed By: #### 1 [id number], 12898701, 5015374, 73679063, 0545769485, 2922047, 65197320, 52187414, 26819926, 32604318 #### [facility] (DEFAULT) [address] [place] [address]120 Basophils/100 WBC (Bld) 0.4 % Normal 0.2-2.0 [facility] Comment on above: Performed By: #### 1 [id number], 02089354, 2363448, 65772321, 7096244447, 4815420, 74145133, 43640558, 61151799, 18319221 #### [facility] (DEFAULT) [address] [place] [address] Eos Abs# 0.0 x10 Normal 0.0-0.4 [facility] Comment on above: Performed By: #### 1 [id number], 23653870, 3721499, 70139918, 7979436376, 5714511, 33427236, 34859235, 14058139, 90435142 #### [facility] (DEFAULT) [address] [place] [address]145 Eosinophils/100 WBC (Bld) 0.3 % Low 0.9-4.0 [facility] Comment on above: Performed By: #### 1 [id number], 54142651, 9220016, 91342522, 1183443770, 0813789, 21595035, 37163374, 74998898, 24017809 #### [facility] (DEFAULT) [address] [place] [address] Lymph Abs# 1.5 x10 Normal 1.3-2.9 [facility] Comment on above: Performed By: #### 1 [id number], 56136517, 5981842, 62481245, 7593788105, 7346720, 74361017, 46615850, 56596369, 27341586 #### [facility] (DEFAULT) [address] [place] [address] Lymphocytes/100 WBC (Bld) 13 % Low 14-48 [facility] Comment on above: Performed By: #### 1 [id number], 22064062, 9200230, 10131960, 8914141636, 2251956, 65837209, 50595790, 36777455, 63172642 #### [facility] (DEFAULT) [address] [place] [address] Jefferson Abs# 0.5 x10 Normal 0.0-0.8 [facility] Comment on above: Performed By: #### 1 [id number], 01633843, 3356894, 33301808, 2953647436, 3844578, 12785640, 86251922, 85275014, 94060682 #### [facility] (DEFAULT) [address] [place] [address] Neut Abs# 9.8 x10 High 1.5-9.2 [facility] Comment on above: Performed By: #### 1 [id number], 72553235, 5681950, 53545353, 8412487894, 6780683, 63864069, 29978248, 55710917, 61922872 #### [facility] (DEFAULT) [address] [place] [address] Neutrophils/100 WBC (Bld) 82 % Normal 44-88 [facility] Comment on above: Performed By: #### 1 [id number], 15643083, 5327305, 19871369, 6537565628, 0241132, 87768637, 10474218, 18037893, 27164763 #### [facility] (DEFAULT) [address] [place] [address] ABORhon 10-06-2023 ABO and Rh group Nom (Bld) Hx Check: Not Found Anti-A: 0 Anti-B: 0 Anti-D: 0 DCon: NT A1: 4+ B: 4+ ABORh Interp: O NEG Invalid Interpretation Code [facility] Comment on above: Performed By: #### 1 [id number], 55133366, 2494378, 76715536, 1443537066, 5724812, 99411285, 85499008, 91405985, 46661030 #### [facility] [facility] (DEFAULT) [address] [place] [address] ABORh Retypeon 10-06-2023 ABO and Rh group Nom (Bld) Ordered by Discern. Anti-A: 0 Anti-B: 0 Anti-D: 0 DCon: NT A1: 4+ B: 3+ ABORh Retype: O NEG Invalid Interpretation Code [facility] Comment on above: Performed By: #### 1 [id number], [id number], [id number], 92669128, [id number], 0839584, 93178512, 24359339, 70627289, [id number] #### [facility] (DEFAULT) [address] [place] [address] ABSC Gelon 10-06-2023 ABSC Gel Negative Normal [facility] Comment on above: Performed By: #### 3 [id number] #### [facility] (DEFAULT) [address] [place] [address] CBC w/ Auto Diffon Erythrocyte distribution width (RBC) [Ratio] 13.3 % Normal 11.5-15.0 [facility] Comment on above: Performed By: #### 1 [id number], [id number], 4419691, 10590301, 2434350860, 4220291, 94510272, 81147472, 58639064, [id number] #### [facility] (DEFAULT) [address] [place] [address] Hematocrit (Bld) [Volume fraction] 41.2 % High 33.7-40.4 [facility] Comment on above: Performed By: #### 1 [id number], 10791696, 6570437, 66498492, 5859977744, 5029923, 65237236, 30865930, 74839830, 30815841 #### [facility] (DEFAULT) [address] [place] [address] Hemoglobin (Bld) [Mass/Vol] 13.6 g/dL Normal 11.3-15.9 [facility] Comment on above: Performed By: #### 1 [id number], 95227249, 7696685, 32617900, 6484212793, 7369100, 31107670, 93751474, 63292412, 90011370 #### [facility] (DEFAULT) [address] [place] [address] Man Diff? Auto Invalid Interpretation Code [facility] Comment on above: Performed By: #### 1 [id number], 52983366, 5223707, 82881169, 2807177185, 4787515, 80467857, 82220841, 13068493, 71111455 #### [facility] (DEFAULT) [address] [place] [address] 15268 MCH (RBC) [Entitic mass] 28 pg Normal 24-34 [facility] Comment on above: Performed By: #### 1 [id number], 92182788, 3485958, 36275078, 5352698222, 2262267, 17967376, 99294161, 80725157, 45207029 #### [facility] (DEFAULT) [address] [place] [address] 60449 MCHC (RBC) [Mass/Vol] 33 g/dL Normal 26-37 [facility] Comment on above: Performed By: #### 1 [id number], 02436010, 3580340, 97454436, 5095639976, 3100239, 36114097, 18962149, 68080296, 11718294 #### [facility] (DEFAULT) [address] [place] [address] 23371 MCV (RBC) [Entitic vol] 86 fL Normal 81-100 [facility] Comment on above: Performed By: #### 1 [id number], 24940906, 7109823, 08936678, 0721449631, 7830574, 59279140, 06390954, 97054754, 52085578 #### [facility] (DEFAULT) [address] [place] [address] 69190 Platelet 267 x10 Normal 138-427 [facility] Comment on above: Performed By: #### 1 [id number], 01664320, 7455188, 68907550, 4954403856, 4295375, 57003296, 03059272, 82426307, 79448982 #### [facility] (DEFAULT) [address] [place] [address] Platelet mean volume (Bld) [Entitic vol] 8.4 fL Normal 6.3-10.2 [facility] Comment on above: Performed By: #### 1 [id number], 48140855, 9528639, 49835451, 9299862206, 8850327, 64893348, 51257334, 67256896, 28046469 #### [facility] (DEFAULT) [address] [place] [address] RBC 4.79 x10 Normal 3.70-5.30 [facility] Comment on above: Performed By: #### 1 [id number], 52479555, 5237017, 08415068, 1436592715, 5760458, 22289610, 91517057, 53872275, 86587877 #### [facility] (DEFAULT) [address] [place] [address] 04702 WBC 11.8 x10 High 3.5-10.5 [facility] Comment on above: Performed By: #### 1 [id number], 14302108, 9362810, 37688067, 6560229654, 8542868, 65327947, 41270959, 49963926, 12559020 #### [facility] (DEFAULT) [address] [place] [address] HgbA1c Standardon 10-06-2023 .Hb 15.7 Invalid Interpretation Code [facility] Comment on above: Performed By: #### 1 [id number], 50577533, 0361362, 94207794, 1144965573, 2336202, 05802633, 73580638, 58714420, 96351387 #### [facility] (DEFAULT) [address] [place] [address] .Hgb A1c 0.45 g/dL Invalid Interpretation Code [facility] Comment on above: Performed By: #### 1 [id number], 10646945, 4187846, 47525274, 2234842319, 3340555, 41596975, 66097523, 81382350, 55598906 #### [facility] (DEFAULT) [address] [place] [address] Glucose [Mass/Vol] 88 mg/dL Invalid Interpretation Code [facility] Comment on above: Performed By: #### 1 [id number], 96972001, 8655179, 23627391, 8446945397, 3066432, 98452905, 03101753, 06395318, 25615940 #### [facility] (DEFAULT) [address] [place] [address] HbA1c (Bld) [Mass fraction] 4.7 % Normal 4.6-6.2 [facility] Comment on above: Performed By: #### 1 [id number], 55119328, 5094936, 33359954, 5736974730, 2338768, 55461510, 80538742, 63025921, 20113952 #### [facility] (DEFAULT) [address] [place] [address] Provider Orderson 10-06-2023 Provider Orders [id number] #[id number] Normal [facility] Coding Summaryon 07-04-2023 Coding Summary HTMLBase 64 DiyrvfqgZEi3xIl+PGh lYWQ+NO8JHGFeS84adP GwmK3kQ4QGKLkMVnkoT MEHSKvOSjXnxmVvFR0q aXNjZXJu IC8+ZV2kMLHrSeoixWZ rm0K7tFD6X07tti9gPK ixsST1DYTiCsQrsojzm 1khuXz0HWqhIbxcHhOq XDBgoG88GVL5hV27Ic5 3wMDgrBXtz1oiiFl8Ue BcDHBmQWI0fBggSLysw 2OiJQVhU23cjVOkb0H7 IGNvbGxhcHNlOyBlbXB 6wB2gBLcbqgooz9ugxs kpDyo1gb60cGYau2R3v QJ7T9VtraX1WZPydITa MqqbzTDTrG3trvjzk5z oundmVzQzQAUrSHz8QG k1AJDqsCgkRwPdAE74A IB0VAYljrZgF2JvULHq dJmoAjL6w2H1Dt8ND6I BMnpnC2UZGGGPWTgvcT Q+NQ03aa08X6YnEdgeO kw0JUFbQEY2kIG2hB6u VEVnXLrif9M7eBC8T6T ltvLidr2wi5dyCFMoQQ xvK04ndZUkt9D0CPQtm KW9ZRDbfVigLkWxdU84 Oyc+PHUazKapk4WhDlf sa8jec2uurGw0ObsrAT DejdDluGxiPMZ2b9TgY t4vIIIlvOH4wHL2tG1l CaZaZpR8PIsbL862ZbU duPItEbsbV70pC4AmvW A+WZWpSuk7NAXzmTrgE F1eQ1WrICNetfdccLXi tDnzXM6iSSAirxhdNPG koL2fBUTwB6e1XzQkSk B4YCexE7EbFOYqvzurN b40zX5hRwSdYaR5CGwk B7ZtedL9JIGtoZRbIIc wXRT4K88yz2G9RHWkGU DjUFJ7hKI4qQ4clSkwk jogbGVmdDsgdmVydGlj YZxnBWdxW120FYPxoEv nPkNvZGluZyBEYXRlOi AgMDMvMTEvMjAyNDwvd GQ+LOYfYKM8jZgaJFEj iABySRviJf0xmCmfdGl oBV2rLGRbnolmDBYvpK 9nDPCqoCVdjTrmBB2uW XIwoadna868FcIwLGP5 SCQeuFXoO0QorI0nPqJ dRVZtJLOqY3FfoRDzDX eyR574XDlhXxR4HVQyb tPoG1YhFYMpnOnkIaD9 a3L7Ha5Ti6KocebgN0F gvRQoKbItBlckBKa4P6 RkPjwvdHI+WG78WHJhF G74KKj9VCD5hJysUXtf EMNkU8CvoF2fCyTvHNU kZGRkOyc+PHRhYmxlIH dpZHRoPScxMDAlJyBzd SzgZQ7lJp7gCYLmYYZb kRtzlPFqZmEtx3paEWY mTVrwWH5syMfsF1DpiY L3FBOwq3m4Em09B57vV 3JvdXA+DTEmyBK4kHD8 fU1gXmRrHyK5IDhmK36 3CdKywWOhHbjvb0tgr9 mlbMs8FlJ1IMJwyfHfo JkkEJM1o1JxNd76W74y IHdpZHRoPSIxNSUiIHZ jaVoqmb2xdM9hBe9+PG PrjQY4xMG8gB6sXuYaJ vE2YBscT279NdAjsFXk Fezyk3saw6wroLq7JeK tLUExxuFueGlgJST1p1 RxDy44C9JgtTemr8OcZ nx3nl69tQXso2P1xFO7 E8WyRZQutaylkWLspEy lEL4dMEUtlpbzTENupG 3uTLGpJ2u7DoCkTdW5V BtmT3PwlwB8YVLgbULp HQRotDGHzX5ukhrxp3b eruknOzQtYDLvSMe3EB v8FCQqfJyaKrGgTZA8O zK0ZKT9lPFycY6ugVao vdafaT1zXtu+LYN3iPH guWHWUL8qBitwhYU+PH GmBQY9pIxtSRqrNSBan Z3mWKMbB7z9KkFfMrT7 HSgbZ2FselZ0VWFxkWI zLIKniGGCuA4rwbrbb3 snrydgTdSkHRShNWo9P Eq3LXIyuIpuJiJzDJP9 GxM4VHV4fTMjwE3nyWk soiimnE3uTwm+QmlydG xkLGL7LJu4H5JgLzz2S BQvuWwaKI8jpRJiVZlp Qi9vuAhcdLjlJH9mAHH zguiqp201DlAxj8pnCU XteLArMNpcUAN0E54ku 9A7WRCvXIErAJM4aIW4 gT6ryMpvfmefrCRvlVd gdmVydGljYWwtYWxpZ2 98XQXcrXovTvLxRLb9Y 7FjYcw3FHLezRmrEJ4c yWLiRZzsGq5zpSozrXg wEX7tQYOjdzxnn368Wz Yej9mqOFXtgHKgIKfbT MX1U60ok4H7ZCHkPVRr AMP7xUB1rM6igSpduyz gbGVmdDsgdmVydGljYW qwWPqkG551CQUimLmvI hLloOl6N8BkDow2JSAj iMyxGJ9agMLjLHqmOw0 ieDdetKlzXI4vETTzzw pvf213CvMyb6fzUHSsj OWjUPrgWYK6W44dy9I8 HHEfBVTlUIE0vRH8xA4 hbGlnbjogbGVmdDsgdm HdzQuoFFcbOOksA144F HRvcDsnPlBhdGllbnQg ZIgjDFs2F6SbFgnalNT +KC09YZVpCW82vJUveQ Svn0utbAl9AhCcPPFmY OV5aEyvSUmfv1RhUDRs L92wwGSev2Y2BNWmtBx arKBfFlJhdRT9aX8yLY gpzogke4xfauecQokwt 2xdzp54aH14B96xTBbl ZHRoPSIzMCUiIHZhbGl tun8pcP4yUl0+PGNvbC P7aXK8gY0zXAXeUvC1V TjrA621UqVmdVMeRrao x2thp3aciVd7OiG3JTE vbaWxxZcuFZC6y3YkOm 25N49jCIoxZAPmMGZeU FJtFIIhfUchqu4vlX5n Ii8+UNPouYS6qYY1jQ1 mAmUeWfG7MWloO624Aa HueHCwQtgzQ86qM0Gsg XA+LSTqWsn5COKtxXmr UU8kfBDnDZxoXw8aLCS 6PuIrGvKvEXrxS5LwMG PndzedupcbuFQ9ANVfX LSdtM95Vm4wlAjaDPRw iXFRnT0jhithk9efvvy sZbQdIZReLZp7QJc3FY UlzNdbHyZrIPB5QuJ9J ME5fTNxzC7qtVuwwvol sV2pU9GbCNPswgpuWb3 6pX4mSnDzJcV7BNxaBv c+QkFLRVIsIEFMRVhBT kRSQSBNSUNIRUxMRTwv dGQ+WTJgHAV4qLrmLHo vXXTliM6bMUClV6m8Fa HiMiR4CVqoT9ArWSWtb laxFm51sZ7cGbXdAsH0 MDbyH5BalrE4ARFzaHE tQYpyJFV7G64wo1U4XH LgJBLaYQY4nDR6fM2qs GlnbjogbGVmdDsgdmVy sAtzRQmbOJnaQ411VZQ kyJpgZeBwXkZ7KiNmTD Y4E2OiKux3HNVrrAbyY Y3xrVRqIVyzKk5noKse kQmjHP9tMAEamwcrEKZ jyD9uFSJpnGHseDnbRM 9aXVMhxuwmw496GyPgL AH1MXLeaVTcR9AxsC0u AxNhPLSrZILnM3WquZE pPMajE809XNcrAoB9IM LmtrIlX0MzPJJbzJjqU nJ1u1I8Cu8lSdOURTJa czwvdGQ+EGUtSPZ5yPe oYVriGWHmiW8iUOMaR0 z8YaDqPfR9SQdvB2OtZ NPgwdbfAx18jN7nFdTo ErC6EMciD0VfdlT8RMX fsBEzLPciFCC6M70gm3 D1KMKpKMDtSHS6eCN5x A5ojGgdasfyzWAnjQsd mhGyxAydZDqjOGsmY04 6IHRvcDsnPkZFTUFMRT wvdGQ+UYHcPNN2rLxaD LjlVBTjzE4iTARjY8x0 GfKjFfS5YEmrC4QjXWB qpqukGj29hZ1mEqKaRm F3RRycB9ZpexY9EZTbf DRpQYgmQGI0Z49bw2Q9 XTYgPCFsLON5sEO6sF1 hbGlnbjogbGVmdDsgdm LhaCrnUOhjKDxhS095X OZfsTsuQoGsE3Atufhl UkAHdLCcCECvMW80EH7 0PM92C6BsOgpbpRBdqM U+PHRhYmxlIHdpZHRoP IesXPGfJjBcgXgvNZ2f Gu6fAYEuYJTbfLfkiVZ zTlNbp4jtSLQnYPvbVR 4nsUujJ4UkaYQ9FJBwo 0s2Py20X41gU7ZltJD+ KLFwrEC2gIE7yJ8iScI sOnC5OGrhH190GkRkoK WyMztsu6wya3nlrJk6V jMwJSIgdmFsaWduPSJ0 i2WoDx43Z63wJEiqHNN oPSIyMCUiIHZhbGlnbj 9doJ1tYz0+QCGfdYN7y WS8fX0xUcYnFeB9FCvx K204QsLfcRHoWcklD76 nR0MllHD+OWAeWjz4KY OukYylCN9idTLnVVjfM h2rWIU0SjCaCeCzEQhv D2PkWOIdenzfmjgdlGP 6VIQdXVJroX40Nq3ctE wwEp0aDKYrZQP1ACOru JJjN4MstZ9yTbYgEJZg PVFdW3HxwEZjOUwaT40 5MPfkZyS2VPJuexRqJ3 BzJIBiyEpbTfJ5h2S0G q8VsKcyaBGfRA4hKbDa KUw5R7PgAze0GJKqxFh fBO2hjZGyKPvgBs2odT wlrXtnDV3bOGGurfsdd 454OrAln3trJVEjeZOa IJauPAW1A55kf4E4NZR jFLPhIOH4mWY2wT3xqG lnbjogbGVmdDsgdmVyd UuvYDchJDchX819LQIk eBnoDtVNUqh1W5KjDkd 8APEjoCzuMM4onSIwSZ swDf0nvLjoiCmzFE7pZ EJnvprvy600FbOix5dz ENUqnALlQZenSGM0O65 vh2V3SSBbYDUgGDN7aZ W5hH7uhCodjnbctKZtg DsgdmVydGljYWwtYWxp W430GPHqrOheHp0CQme 5S9MqFzr8EFVgyOdyMC 1gcFWcUBmzSx2upLbdz GduWT0iANVnjfsaj498 YpStp8zzTXDlsJWfKEt uKWM1R38yn8C5KJTnIM BsSVN3wMU8gV0znQjqy jogbGVmdDsgdmVydGlj TVzzJOoeY287AAGqrLw nPlBheWVyOjwvdGQ+PC 65ms36W5ZiPcdnMtd3X EIwFEW2vLY4mW3nEFWr [facility] (more content not included)... Normal [facility] .Auto Diff 04-22-2023 Auto Jefferson % 6 % Normal 05-06 [facility] Comment on above: Performed By: #### 3 [id number] #### [facility] (DEFAULT) [address] [place] [address] 57910 Baso Abs# 0.1 x10 Normal 0.0-0.2 [facility] Comment on above: Performed By: #### 3 [id number] #### [facility] (DEFAULT) [address] [place] [address] 12978 Basophils/100 WBC (Bld) 0.8 % Normal 0.2-2.0 [facility] Comment on above: Performed By: #### 3 [id number] #### [facility] (DEFAULT) [address] [place] [address] 08100 Eos Abs# 0.1 x10 Normal 0.0-0.4 [facility] Comment on above: Performed By: #### 3 [id number] #### [facility] (DEFAULT) [address] [place] [address] 12200 Eosinophils/100 WBC (Bld) 1.8 % Normal 0.9-4.0 [facility] Comment on above: Performed By: #### 3 [id number] #### [facility] (DEFAULT) [address] [place] [address] 55839 Lymph Abs# 2.1 x10 Normal 1.3-2.9 [facility] Comment on above: Performed By: #### 3 [id number] #### [facility] (DEFAULT) [address] [place] [address] 32510 Lymphocytes/100 WBC (Bld) 26 % Normal 14-48 [facility] Comment on above: Performed By: #### 3 [id number] #### [facility] (DEFAULT) [address] [place] [address] 57588 Jefferson Abs# 0.5 x10 Normal 0.0-0.8 [facility] Comment on above: Performed By: #### 3 [id number] #### [facility] (DEFAULT) [address] [place] [address] 66849 Neut Abs# 5.2 x10 Normal 1.5-9.2 [facility] Comment on above: Performed By: #### 3 [id number] #### [facility] (DEFAULT) [address] [place] [address] 41660 Neutrophils/100 WBC (Bld) 65 % Normal 44-88 [facility] Comment on above: Performed By: #### 3 [id number] #### [facility] (DEFAULT) [address] [place] [address] 04134 CBC w/ Auto Diffon 3 Man Diff? Auto Invalid Interpretation Code [facility] Comment on above: Performed By: #### 3 [id number] #### [facility] (DEFAULT) [address] [place] [address] 92725 Erythrocyte distribution width (RBC) [Ratio] 13.1 % Normal 11.5-15.0 [facility] Comment on above: Performed By: #### 3 [id number] #### [facility] (DEFAULT) [address] [place] [address] 36006 Hematocrit (Bld) [Volume fraction] 40.7 % High 33.7-40.4 [facility] Comment on above: Performed By: #### 3 [id number] #### [facility] (DEFAULT) [address] [place] [address] 39583 Hemoglobin (Bld) [Mass/Vol] 14.0 g/dL Normal 11.3-15.9 [facility] Comment on above: Performed By: #### 3 [id number] #### [facility] (DEFAULT) [address] [place] [address] 27413 MCH (RBC) [Entitic mass] 29 pg Normal 24-34 [facility] Comment on above: Performed By: #### 3 [id number] #### [facility] (DEFAULT) [address] [place] [address] 06914 MCHC (RBC) [Mass/Vol] 34 g/dL Normal 26-37 [facility] Comment on above: Performed By: #### 3 [id number] #### [facility] (DEFAULT) [address] [place] [address] 97402 MCV (RBC) [Entitic vol] 85 fL Normal 81-100 [facility] Comment on above: Performed By: #### 3 [id number] #### [facility] (DEFAULT) [address] [place] [address] 06834 Platelet 275 x10 Normal 138-427 [facility] Comment on above: Performed By: #### 3 [id number] #### [facility] (DEFAULT) [address] [place] [address] Platelet mean volume (Bld) [Entitic vol] 7.7 fL Normal 6.3-10.2 [facility] Comment on above: Performed By: #### 3 [id number] #### [facility] (DEFAULT) [address] [place] [address] RBC 4.79 x10 Normal 3.70-5.30 [facility] Comment on above: Performed By: #### 3 [id number] #### [facility] (DEFAULT) [address] [place] [address] WBC 7.9 x10 Normal 3.5-10.5 [facility] Comment on above: Performed By: #### 3 [id number] #### [facility] (DEFAULT) [address] [place] [address] Standardon 04-22-2023 eGFR Non AA >60 Invalid Interpretation Code [facility] Comment on above: Performed By: #### 3 [id number] #### [facility] (DEFAULT) [address] [place] [address] eGFR AA >60 Invalid Interpretation Code [facility] Comment on above: Performed By: #### 3 [id number] #### [facility] (DEFAULT) [address] [place] [address] 92528 Albumin [Mass/Vol] 4.0 g/dL Normal 3.5-5.0 [facility] Comment on above: Performed By: #### 3 [id number] #### [facility] (DEFAULT) [address] [place] [address] Albumin/Globulin [Mass ratio] 1.2 {ratio} Low 1.4-2.6 [facility] Comment on above: Performed By: #### 3 [id number] #### [facility] (DEFAULT) [address] [place] [address] 91991 Alk Phos 68 IU/L Normal 32-91 [facility] Comment on above: Performed By: #### 3 [id number] #### [facility] (DEFAULT) [address] [place] [address] 46501 ALT [Catalytic activity/Vol] 14.0 U/L Normal 14.0-54.0 [facility] Comment on above: Performed By: #### 3 [id number] #### [facility] (DEFAULT) [address] [place] [address] 61060 Anion gap [Moles/Vol] 10.9 mmol/L Normal 5.0-19.0 [facility] Comment on above: Performed By: #### 3 [id number] #### [facility] (DEFAULT) [address] [place] [address] 17797 AST [Catalytic activity/Vol] 18 U/L Normal 15-41 [facility] Comment on above: Performed By: #### 3 [id number] #### [facility] (DEFAULT) [address] [place] [address] 28914 Bili Total 0.6 mg/dL Normal 0.3-1.2 [facility] Comment on above: Performed By: #### 3 [id number] #### [facility] (DEFAULT) [address] [place] [address] 37702 Calcium [Mass/Vol] 8.8 mg/dL Low 8.9-10.3 [facility] Comment on above: Performed By: #### 3 [id number] #### [facility] (DEFAULT) [address] [place] [address] 78892 Chloride [Moles/Vol] 107 mmol/L Normal 101-111 [facility] Comment on above: Performed By: #### [id number] #### [facility] (DEFAULT) [address] [place] [address] 17388 CO2 [Moles/Vol] 23 mmol/L Normal 21-32 [facility] Comment on above: Performed By: #### [id number] #### [facility] (DEFAULT) [address] [place] [address] 73139 Creatinine [Mass/Vol] 0.68 mg/dL Normal 0.60-1.30 [facility] Comment on above: Performed By: #### 3 [id number] #### [facility] (DEFAULT) [address] [place] [address] 78804 Globulin (S) [Mass/Vol] 3.3 g/dL Normal 1.5-4.3 [facility] Comment on above: Performed By: #### 3 [id number] #### [facility] (DEFAULT) [address] [place] [address] 46140 Glucose [Mass/Vol] 103.0 mg/dL Normal 74.0-118.0 [facility] Comment on above: Performed By: #### [id number] #### [facility] (DEFAULT) [address] [place] [address] 27700 Osmolality 274 mOsm/L Invalid Interpretation Code [facility] Comment on above: Performed By: #### [id number] #### [facility] (DEFAULT) [address] [place] [address] 49645 Potassium [Moles/Vol] 3.9 mmol/L Normal 3.6-5.1 [facility] Comment on above: Performed By: #### 3 [id number] #### [facility] (DEFAULT) [address] [place] [address] 88244 Protein [Mass/Vol] 7.3 g/dL Normal 6.5-8.1 [facility] Comment on above: Performed By: #### 3 [id number] #### [facility] (DEFAULT) [address] [place] [address] 08265 Sodium [Moles/Vol] 137.0 mmol/L Normal 136.0-144.0 [facility] Comment on above: Performed By: #### 3 [id number] #### [facility] (DEFAULT) [address] [place] [address] 03655 Urea nitrogen [Mass/Vol] 12 mg/dL Normal 8-26 [facility] Comment on above: Performed By: #### [id number] #### [facility] (DEFAULT) [address] [place] [address] 44049 Urea nitrogen/Creatinine [Mass ratio] 17.6 mg/mg High 4.6-16.2 [facility] Comment on above: Performed By: #### [id number] #### [facility] (DEFAULT) [address] [place] [address] 59499 Lipid Panel Standardon 04-22 Cholesterol [Mass/Vol] 158.0 mg/dL Normal 66.0-200.0 [facility] Comment on above: Performed By: #### 3 [id number] #### [facility] (DEFAULT) [address] [place] [address] 47796 Cholesterol in HDL [Mass/Vol] 51 mg/dL Normal 40-71 [facility] Comment on above: Performed By: #### 3 [id number] #### [facility] (DEFAULT) [address] [place] [address] 59878 Cholesterol in LDL [Mass/Vol] 98 mg/dL Normal 1-100 [facility] Comment on above: Performed By: #### 3 [id number] #### [facility] (DEFAULT) [address] [place] [address] 57701 Cholesterol.total/Cholest amanda in HDL [Mass ratio] 3.0 {ratio} Normal 0.0-4.5 [facility] Comment on above: Performed By: #### 3 [id number] #### [facility] (DEFAULT) [address] [place] [address] 95125 Triglyceride [Mass/Vol] 43.0 mg/dL Normal 0.0-150.0 [facility] Comment on above: Performed By: #### 3 [id number] #### [facility] (DEFAULT) [address] [place] [address] 51550 VLDL. 9 mg/dL Normal 5-40 [facility] Comment on above: Performed By: #### 3 [id number] #### [facility] (DEFAULT) [address] [place] [address] 46696 Progesterone LCon 02-11-2023 Progesterone LC 0.7 ng/mL Invalid Interpretation Code [facility] Comment on above: Result Comment: Foll icular phase 0.1 - 0.9 Luteal phase 1.8 - 23.9 Ovulation phase 0.1 - 12.0 First trimester 11.0 - 44.3 Second trimester 25.4 - 83.3 Third trimester 58.7 - 214.0 Postmenopausal 0.0 - 0.1 Performed At: [facility] [address], [place] [id number] Bibi Irwin PhD Ph:[phone] Performed By: #### 3 [id number] #### [facility] ([facility]) [address] [place], [place] [id number] Coding Summaryon 01-17-2023 Coding Summary HTMLBase 64 HdgtzxvkYAr5nJi+PGh lYWQ+TX6WZFIeR40csR XjjQ1jR9DTAJhHDzleY ECYAWsNElNdpiVyNG4k aXNjZXJu IC8+EE8hPBEgMuswrTN ou2D1fCC0O65sgc0lPQ mekVX5VXGuJrPnfgbxq 3ajoPj4PIglUnhkTpDs LBTocW72PFD8wA44Pa9 0uYVwsQDdz2inqQt8Mu SxTGLuBIK6aNnmXRuak 2GoRQUvN37ycUYzp0O7 IGNvbGxhcHNlOyBlbXB 0sC6iQGbtepurt1qztv rcWwr5aq03dPIxf8O2w CU3A5AlhwE5GROaxBYu WjnzzLFDrE0aeanfy1e bmawsZmPwXPQgSZt5WO l1DHDjsPzgTxTjFC15S RS0KGYaejLzU8NzXEIb jTwtEzP9p6R4Ev8SS6M ARellB5LNYFPJXYozjP Q+EX99lg08G5GaObkkU dq1JTCxWNE0wAM1pP2k UCJvXPyxa1K4cPQ0K7D bucEvvn0hw7zlUEKuSU ofB74hvWMky2U3GOQtt YJ3NGOuuJjeSzXnkA62 Oyc+QEVikBozf4WgHdu ch9wrn9eyhUb3FtnsZP RgzxPeeSwfBWH8g5YaM i3yIMUmwHQ1rGN0mU6a GeXcBxI7GEeeF220JuE kqTGhXhdlV34zA3AkmE A+CFXcXhe8EVYadZygU X2rM4CpRGGfzhfuyJYu hLcbMY0tNHWyjkstMXH fzG3fMCOdR9y6IsBlZp P9ABgzJ6RmVXHkuxtgF k53kC9hEgHgKgL6MYli V0NsxbT0TZLqmWJoPLt uRMC9I62pi6N4GXGfHK BnXLO2gTA1bK5oeUule jogbGVmdDsgdmVydGlj ATtuEWdaO751PTSkbOd nPkNvZGluZyBEYXRlOi AgMDkvMjUvMjAyMzwvd GQ+USNzZSQ4zMlpWOZe wMIkNFrpOb7weAsbrIu qDY0eIOCgsuhuGERipM 2aPMJuuSDztBbiJI2sZ LGncxast385GkHhXZM5 ELBldVFnH6PyeC2dTxQ gIYHxUUMrF2IquQGrTU geC224UOljNnX3FCXzg kThQ2NkXAYwbYmhKvV4 r6Q0Nw1Nf0NsopkfK1M nnHWsNsAeOoutPMn1F0 RkPjwvdHI+AK88UVLaL U43RCm8OZR1jKbfOCou GUIkC5AuzU8sPxPeEZN kZGRkOyc+PHRhYmxlIH dpZHRoPScxMDAlJyBzd UtrSQ7bJd9fZZXfUWWg vFcodFVvRzDpc5exAOS aWMjqGM0vqUgxL4CznK C8UDHpp7x1Ks38I02kR 3JvdXA+LPKtfMT5uDE0 hR0gMgJuRzP0MAeuS18 4ZoJrsYJcBxfth8kwt8 xcpCc1LhZ4PPOzrcJzx PlkFKR5j5HbXf96C54h IHdpZHRoPSIxNSUiIHZ euZfjlx5qeB3lKt2+PG DdzZR5cEB5vJ3fBlTjG mI4PUadF232EeVihXZz Qcnhr4ukq1mqqJx4XaU sUBNlitMcqSfnDYX1f8 ImPn26N8YhjBfyb3AqI ie0zq42tIHlr0Y0eEB1 O4QqGFUftdajzXVebKx tWC8pBFBebuujXSGzkB 9rALIoT6a8JyZnOtD3K YkxT2JrjzJ0PXOdwALx JTPqtMHErO9uktjcz0b oqacsXaWpTTIiDFi3AG b6KOTsbNjzCkJtICG2V dI8KQG4oWJbwL7saMsq bvgdrL5bBrx+DIL9nEC rdQEOTI8wCptzySG+PH WjXRB2bUawYKitPDFbp G8dOUIqH3c2XwZtQpE2 KYmsS2PhieF5ZOIaoUC tKPXshXPMvE0xrvcrx5 qqefvqOxPcXPXeZEs2Q Yc9JRBiqWqoMaEiGGH8 AwK9ROK2pSIwuU6msYs rcsudiN2qBsd+QmlydG lbIJH2RBm2M6NxDqg2S KTdbVqgWG4liDSdPAhl Pk3ryJrurEcjTJ9xFGF nxzifc659TkVqu6tgRC CvjYVyUYzoSIX5V08ub 1I9ODHwWJIsIKR4dYG9 aQ7owXxmtsvtdMDliFk gdmVydGljYWwtYWxpZ2 89NRNioPcuJiNtQOt6S 5WdSkp2UPHwoAboZV6k bKFpAXtcGw3mgEyhiZw sNH9iYNVmpqllc253In Iyz2ekTTIqkPBeZPysT OD6Z97rh7W8RCFoUQWg HOL6nQG2gJ4anNkzynf gbGVmdDsgdmVydGljYW ntYBquB952CGPwyRdxB mIsjMh7A9GjXoy9NLJc zPatFE1xmCNuFBghXq6 olCvuwXauIW7pWBDzck lwh408QpGir7zuRAYth KYoBMcxMOX2I36mq3M3 PWRrYOHzVBB4bWS8zR1 hbGlnbjogbGVmdDsgdm XmzXjwLQoqFJtbF510X HRvcDsnPlBhdGllbnQg JWqmFOk2J7UwIsdymLI +JO64LCVrFM71rIKyfZ Uzt3jaaIw7RsClRAVrQ FZ5rQbzFUjfb8NnJRDo L19kaNYrq0N1IKNolHt lbUBoLcOoyBD4wN6vDE mrbacvk1bdeprzOfris 3hmcw82xV69Q06aFMqd ZHRoPSIzMCUiIHZhbGl ine2bwC3lOj2+PGNvbC M5lBA6lM5oGKDjPqV7O YvdF712KaYwtLGiYhcp w0bcr7cdhFm3JbC4ZRV gxwMexGnmCGE4j8PtQu 85R56wGHabKWJcMFVdP AJlZGNgjIilne9qbP9r Ii8+VPOxfIL2jYO5vR7 xDuKxAjJ7EWpaM150Fk EtbFJfAspgZ03pE4Xgm XA+KCVfHqo1QYXxmDsm AM5coAEaBGlwGd3tTKV 3LdWsIoEtUFyzF0WrWO VuetnggkqucTC4MVTmK PNxeL47Gw6rpPhoESBc mUXDpX1srydgc9yxitg zGxFrAEImXNt2BYb6UT QugTemTcObHGE7RzD6R IO3uDVflE7igTzptwhw fJ6yI9WsXTHfjhoyMf6 2mX4lQxOvVhS9DBcjUo c+QkFLRVIsIEFMRVhBT kRSQSBNSUNIRUxMRTwv dGQ+BOVpJZE2uYdyPLw jFXTwfZ7vKSHqL8m5Bm AyHpG0UTfnN8KjTBGzc pvwAz90gY2nKuXcQaZ8 KIwxA4PxjcK6JBNsePO tJSkmHON8A69io8N1AI RxANPyQQM1gGH7aT5kh GlnbjogbGVmdDsgdmVy nPydVTppFZfwV631XZV gzKltHgJaTrN4ZuNfPL R1R0ZdAeq2PCLfeKkxU U6muLAsLVgvLn5zwZcp xQixBR1lGNNimwxxDDG pfM1fQELdgVQucSwlZB 1vARPoootqg153HtCiO CZ7QDPydPAhY4DxwB0j CcXxCYYmTHJnY4UhxMP sHXonT408VBbcUmY0GH StjfDqB6OpYWXoyXfuV fW8x2X0Su5eDIOPRFYx czwvdGQ+SZJrUSN1wWt hQBukHOIsuY6gCGPgR8 q7XtNaZsV8SOlxN8ShR UQymgoeFz47qW7fMbKi HoJ9ZZdnB3OewcZ3IZE lxVJjCJbfMVN6R58ae0 H6LDApHPHtRHG0qYZ2m F8dcVufiygcyVDelSpk ecWxbCnuDWfsQUwyB57 6IHRvcDsnPkZFTUFMRT wvdGQ+FHMnRVX0sBcsF XwkQQCrcK8tWERpX1p1 OrGpTcI3DEgaB4HmRZA gwdhrVt74aN3fVkBnTb G7HAdoY3AmpuE3GVLup HFxFZjrJOL8J69yv3Q1 KLHwMJHaTVZ0dLO6oB7 hbGlnbjogbGVmdDsgdm NolNaaCFecLTyoN289V DSnlYhiGw2GRC52MO97 S7QqNwughYKnqVU+PHR hYmxlIHdpZHRoPScxMD ClXfNnqDsyQJ5oQd8mH GVyLWNvbGxhcHNlOiBj g6gxISFmMMkyLX7fpIa wE7LbiUG4JFVgr6k2Wu 35B71yH7EqvKO+PGNvb TL9iXZ6jD4oQqEaRiO3 HDplN542BrXzmAErKdr pu3iut5uqlCj8ZwTdCF NfxgIvaXjdUGN1q1DuT z47I13iLByeLUNsHVTb JEGpYAQvoQnixr7csH8 wIi8+HWXyeAQ3bVO3qJ 6fQnJrBuU2AImlM663H oVhyLDkEwqqC10kM7Os dXA+FOFkDqe4YSKpuNb sXG9taYRfBHptNs5mFO B9DhFcKuDfLManL1RgC CRmbaaqvotkfDL2CQUe YVKwfB08Tr6afMfsFk2 eQCUeANB6UKMjmJSaO5 OmxD3kPaMfCGMdOHToF 5EypOAmFRzkD570HRbm VjI2ULPutzEaX3YaSAZ nuClwErF1n3O9Sz3LrJ lgoKDqLT7tMwOdLMg2G 3MgCqs0HLUifPnqMZ1e oXIvNJvsIy6rmYtphTi pPW5jEVPdjpdxh363Ex Bpe9shHAZloFTmGPmcI VE0N08ts4A5HFEkZVWr LKK7jDZ4mQ0coAfzgla gbGVmdDsgdmVydGljYW vjETvoR302SJYjyYlsW gTQNlc2C7VbTkq0YGCl fMnaUT5rfESjYUzhFw2 qzDyxqHbjET3dUMYwpz zwk887HyOue7beSSXim OGtHWuwUCA6H37us4H3 JMXxCYLfSPA8jPR6cH2 hbGlnbjogbGVmdDsgdm OnoLgzLYjmPBprP330M IHsuDqfZx5ZMcu5U8Xx Xfk9DRXvbFsjWN9ftXW mRUlbFs3duIsyxHctQN 0uMMBshvphc544WzAnk 7hxUPPuoEIlEIivDND4 K68nc5O1SSPoTTRbDQJ 8jCW0hA3pcAtvaapcfA VmdDsgdmVydGljYWwtY TpuS551URTfgLuiBcMd eWVyOjwvdGQ+HN84wz4 1C8LeNwbyXhg7BLYxFU E7yWV6eP4gDJPqBIcre 9I7aTO8P4OkuuIrns4c b2x (more content not included)... Normal [facility] C Throaton 01-12-2023 C Throat Ordered by Discern. Normal throat dong isolated No pathogens isolated [facility] Comment on above: Performed By: #### 7 [id number] #### [facility] (DEFAULT) [address] [place] [address] Progesterone LCon 01-11-2023 Progesterone LC 8.7 ng/mL Invalid Interpretation Code [facility] Comment on above: Result Comment: Foll icular phase 0.1 - 0.9 Luteal phase 1.8 - 23.9 Ovulation phase 0.1 - 12.0 First trimester 11.0 - 44.3 Second trimester 25.4 - 83.3 Third trimester 58.7 - 214.0 Postmenopausal 0.0 - 0.1 Performed At: [facility] [id number] Bibi Irwin PhD Ph:[phone] Performed By: #### 0 [id number] #### [facility] (DEFAULT) [address] [place] [id number] ED Clinical Summaryon 2022 ED Clinical Summary [facility] ? Urgent Care [address] [place] [address] Clinical Summary PERSON INFORMATION Name: BRYNN WALLACE Age: 22 Years Sex: FEMALE : 2000 MRN: Acct#: Visit Reason: Throat pain - Adult; Body aches; SORE THROAT, HEADACHE Arrival: 01/10/2023 13:26:17 Discharge: 01/10/2023 15:12:00 LOS: 000 01:46 Check In: 01/10/2023 13:26:17 Checkout: 01/10/2023 15:12:00 Address: [address] [place] [address] PCP: Leah Azar PROVIDER INFORMATION Provider Role [...] Adult Follow-Up: With: Address: When: Leah Azar [address] [place] [address] [phone] DIAGNOSIS: 1:Systemic viral illness; 2:Viral pharyngitis Patient Understands: Comment: Normal [facility] ED Patient Summaryon 023 ED Patient Summary [facility] ? Urgent Care [address] [place] [address] PATIENT DISCHARGE INSTRUCTIONS Patient Information Name: BRYNN WALLACE Age: 22 Years Date of : 2000 Reason For Visit: Throat pain - Adult; Body aches; SORE THROAT, HEADACHE Arrival Time: 01/10/2023 13:26:17 Phone: Primary Care Physician: Leah Azar Attending Physician: Genesis Calvillo PA-C Comment: Patient Education With: Address: When: Leah Azar [address] [place] [address] Sore Throat A sore throat is pain, [...] these instructions at home: Medicines ? Take mjjh-wgy-kldovge and prescription medicines only as told by [...] and water are not available, use hand fur mixer. Contact a health care provider if: ? [...] can cause a sore throat. ? Take xmtz-hhk-obdjigm medicines only as told by your health [...] provider. Document Revised: 07/08/2021 Document Reviewed: 07/08/2021 [employer] Patient Education ? 2022 [email or web address]. Viral Illness, Adult Viruses are tiny germs [...] and grow ou (more content not included)... [facility] SARS-CoV-2 (COVID-19) PCRon 01-10-2023 Internal Control Pass Normal [facility] Comment on above: Performed By: #### 3 [id number] #### [facility] (DEFAULT) [address] [place] [address] SARS-CoV-2 (COVID-19) RNA HERBER+probe Ql (Unsp spec) Not detected Normal Not Detected [facility] Comment on above: Result Comment: Perf ormed by PCR methodology. Performed By: #### 3 [id number] #### [facility] (DEFAULT) [address] [place] [address]26 Strep Aon 01-10-2023 Strep procedure control Pass [facility] Comment on above: Performed By: #### 7 [id number] #### [facility] (DEFAULT) [address] [place] [address] Streptococcus A Negative Normal Negative [facility] Comment on above: Performed By: #### 3 [id number] #### [facility] (DEFAULT) [address] [place] [address] Progesterone LCon 12-14-2022 Progesterone LC 6.2 ng/mL Invalid Interpretation Code [facility] Comment on above: Result Comment: Foll icular phase 0.1 - 0.9 Luteal phase 1.8 - 23.9 Ovulation phase 0.1 - 12.0 First trimester 11.0 - 44.3 Second trimester 25.4 - 83.3 Third trimester 58.7 - 214.0 Postmenopausal 0.0 - 0.1 Performed At: [facility] [id number] Bibi Irwin PhD Ph:[phone] Performed By: #### 2 [id number] #### [facility] (DEFAULT) [address] [place] [address]39 Provider Orderson 12-11-2022 Provider Orders [id number] [facility] Coding Summaryon 12-03-2022 Coding Summary HTMLBase 64 FdavszotLVu7xQa+PGh lYWQ+PB9PIYJkB65caZ WhkS6uJ5QIFJhFRihcO OJQSDdAQiJnyxPxQP6a aXNjZXJu IC8+JN6eKPVuQcxnmRA eb4R4pIT2E70hzr2dGG mswOS4SXImRyZcfzmva 9efoWu0ZLccPqjvGbQv ZKWbeM46BDK3oE81Wo8 5jIUhfLTxe0gnfLo6Bk ZhCOQjKAG2aSkpJZyvp 0LtMROnA92rpWQqu5Y9 IGNvbGxhcHNlOyBlbXB 7eQ7oVWtmwwyel3wmuy ckHmy2pe72yHDwk8C0n FR2O6BcbaO4KCOppFCq BqtrwHTXcL4hcgbyc5g zumyrKwFqNPFpOCd2LQ c1GLKqiEdoWbFiVY28O LD4DWEhsxKpX9WuLUHo jDijVeO5y0Q8Wl1CR6T DGrevL2MRYDDMBVfeaN Q+VI39bu85M0GgBearP zo4GLCgFDV0tWZ7uB7k RDAnLFfbf1T7dCI1E7M cubQvnn9iv5szEHJwNK rzO80wcMLdz7X9KUKzv ZT2KTMbfIcuPwBddK28 Oyc+YCQwiEjbg4BtBom hk3smz6iduAr9DwufBJ CqohOiiFduZMJ9e7JgT b8hEGOnuBV5aPD0pR8s XhXnSnR8NTeqE582KxQ siDQxPjaaV22rN1QryF A+WNEoBof7QHFpsYiwX G8wM4DuFCHmznimgUBy nHpgXB3gYMKobprlKNB wrW5mAPMtA0e5GzInYv L7QQsrS4IsXCTxkhfyH g29rH3uVnCuOrP3IYfu E0LweaH3WVAajCHqRVh tBGH6A74ju7E1EKHpUC PjHCC3hDB4mM5xtUtrc jogbGVmdDsgdmVydGlj YEujFCuhC484IEBncRt nPkNvZGluZyBEYXRlOi AgMDgvMTEvMjAyMzwvd GQ+ZJAjGOG7fRhjGFVv fZLdISlyBg5gbJqdmMw uIN6tQDXatjttVLUjkA 0tNAFzoWFdnTupEG9vA FZooxfmo145MnVjPUF1 WIBesGIvP2UwyO9fCwX eLONhJOAjX9RdfCPsCS bvR205NRibCsT7YYQgv dHzP8WvBCRnuDrrVbH4 o9G2Jx7Cx7IhcrteU5V keMAaWqWpAjqfWFv5Z1 RkPjwvdHI+XK70AOSdH O76RLb4UED4uTnsTObw QBJkX1XavG8uCpTgHFZ kZGRkOyc+PHRhYmxlIH dpZHRoPScxMDAlJyBzd HdwJY5wEj0qILBjOXMe uSmiiJGyJoAgk3jhOES wLUncWJ4jjMldL0KysO F2IPHit1x0Ji50W11qY 3JvdXA+SMNtzBU7xAP9 nR0cSpRtAmO3TGcbY01 0KvMhkARbExoda5pxc6 tjbUt8QzL4CKJymbKvx FmkVAG8y9RoUd16M83x IHdpZHRoPSIxNSUiIHZ knLqyzs0sbX7tAx6+PG IjvFV1oQL6wP7gDfLhZ lA4ZQivE672JhOsfNCu Yubpx2ick6pamYp0ZdO bGMAssfJvxRphZXU6c9 WtBs23R8ZosPtts3PdD us5fd79bHGdf5E0jIW2 O0VgDQOsfepneSWrrEh zUG6aTYVkeocvRQCqyE 8gUYQkT2z7FgYkWlQ1T HjmK5YnceX2JQHgoNKi KZEprVQBpG2gqvgvj5o qhklkObYbNLAuVMr4NJ u1QVLsyTmsFoHiTVI2R tY3QQM1qESowM8jyKdx uarcaU6fFfj+XYV0fQG xdLYUHP1bSjkpePG+PH ZsJYN3cPclWUxeAKZyv D6iWHJnH1r0RjEnHoA3 UZviB5KvdfB8YWJieOT iJVLfzPQLlS0iekwpr5 njcaiwZfHxAQUkOEw5A Oz1SYJvkRnfGiCjYVW2 BmJ3HPC6tCMjmJ8gfSv crfrfrV8vByu+QmlydG hnWGB9SXj0G4TwBun4K LCfyWovWH4hjVMjOHrl Of0kxLmsqDywAJ5xBAL twowpu843QcCtr1tzNJ YlnASrAJcsOQK6F59eg 7O0DAUyYFGaZXS5hBI3 bW2tdTfjrzohbMJxkAj gdmVydGljYWwtYWxpZ2 84SQNfcKepDiWxDVd7P 9SjWlh0OWUacDchZO7m vXOyRTadSk9lfUinmDu gHG3qGVClbbhpx881Wg Isv3fhHSQgmZRsJIznG KQ7B41vh6L8FYHeZGYk ZEM4rRX7fX8gxMcvlmq gbGVmdDsgdmVydGljYW qvGXhtQ527HNGqrMbcV wGpsDn8C1TkUvr6WITq bHywJR4jeBQvQGibSz7 wyGpnfBsaIE5ePKTzri dzj927HkElp3ldOVJgw KWgQKilUOP3E13xl2G6 JKFkEJEzMLI6aEC1eT2 hbGlnbjogbGVmdDsgdm GtgOvtUGfcJKwsP374D HRvcDsnPlBhdGllbnQg ZIazCAg0U7XzRtamrRY +HA72PDYwDL50sQDdoT Vzx1dtmHs8EnUdEXCqM HV7tNqjDVtsw1EpJFNs L86qpWUzh4Q0SEQprXq lpXCpLhJbwUN3xP3lJR yucyjbk8gaahyeSeszk 1oynv50oU17Q19hKUhu ZHRoPSIzMCUiIHZhbGl kvr6erU7nEc0+PGNvbC Z2jKZ4bT7hRQGoVeL8I KdaF621AmRjqMMyZbhz t5ler8umcNa6CqD4FAE wgeRbdQbdHNP0l4GtJh 92K42kFIutDJHdRQIbI ASqIEHhlLdwnk7baQ6h Ii8+CHFftQB1sCR7zW1 kVrMtZcH3QGnfR474Za ObdJLkFbumQ15iO7Kbe XA+BTPyLjp4UINtuHar QL0oyXYvRYvcVe9eTCP 3PdTrWaYeNRfuE4KlEM RsznoyludxuTY5YWGaI YFgoL55Qf5qnUilXSFq mMVVhA5pxsobf3ezfvf eXrEcMINdGPj8TSo1IT IqvXuvApBuMMN7KdT8S TT9eQCshX9gpDxahass aI8rR3EnFVFwwdkcLa7 9vU0pYjZrAwO0AYjaFc c+QkFLRVIsIEFMRVhBT kRSQSBNSUNIRUxMRTwv dGQ+ZJTwTEU4kEadPDq jBSBknG9sNTPrX7f1Qw YdDuW1JCyvE8ZpCSBaw iteWa50kT9nGlYiZmP6 OPhhR9RflzB5MAAdqMD fYIclSKV7Y27xf6M9AQ IcTUPiWWI3oKM1jP5dd GlnbjogbGVmdDsgdmVy kKvbGSybOHyqV527TBY puFsaCwBvYnL7RsQzBZ F4M9UhKra0RUNdvXhoC N5ijBUkWBnfFy2gcLux ySefCB5jMQAkgcqlUZN knI6iEIAqeEBdpFgpOP 2mXKCklkldo975IuWqG DH1VDRggRQrV8SlgF3b ClGzHDYnRWZvU2FwhGT qROtwL057MEakXtD3GE QorxSsT6HqZNJhtWqrJ qL5r1E7Ez1zHYDNUVJw czwvdGQ+NITyVAW6iWn yAMmbZFRdzM7mHRZoA5 z7HfDvOlG2BPfrI4PoJ EHgelmfMo37jE0lEbYp ZfY5AWfpY3KcaxX6JNZ bqYRsBVvqOBE0L71um4 I8HPTuHUAeRYP6aAE3d L9lpCdnkijlsONblZte xhXeePzpEJpsHIkcQ30 6IHRvcDsnPkZFTUFMRT wvdGQ+RWHaQXE0bYqfZ YzuHTPhiY4aYVRaS6d4 RyUbJiP2CVlhX3DhURC dalfmIn33zO5hKzNuZm A8XIrdD1LuxeG7VRPru GEkFWzyXCC0R32xm2N7 UJNgLSRbYYE2aHI4hR1 hbGlnbjogbGVmdDsgdm GxyZrxLVizSOqpJ483M IPlcYroEk7ISL90UR66 M8UyVoftkIHnuJU+PHR hYmxlIHdpZHRoPScxMD TeDeDfwYvnGV8uSs9kJ GVyLWNvbGxhcHNlOiBj i3hsMMWjHYenUE7whEs fV0ZwaNV0ZSNln1e7Mh 71Y86yD1HtiMJ+PGNvb UH4cFD7iF0nRaCyEeW6 MHtdZ222VvBnuTBuAnj qo5tli7aedNt2OkZiOF TtzxHlyPthKIO7g0OyU b27K90oBPwlQQVaBMFp YFUiETSdvGeehy2ppP4 wIi8+VGAagLO8ePQ4jT 8eKlXuCkB0NSejN774Q nYiuTChKmxsF61zJ0Tj dXA+JNSyNvp1TPRnzHm dOH9zvTYmXAxpNl8oOS I0ZjXyUoHoGPnqJ8AyP DGlzonmnmgvzED5DPFu URZugD82Ja7mlGhuBi5 yPYOrJDE4QMCjnDMgG4 OimJ4qHcHcLLEcNJMsX 6HddFDjHCidM426DTai OfL2NJHwoaYiT2XkAYK hcDrcRuF6h5L9Ye2WmX klwWJtJS2hLvWcRTu4S 0MuXbw8FZPuqPmpIM0f fRIdVAinEs8vcBaabGk fDO7dHEZoeopom694Bb Xrx2aaYGRogSRbPBsmH SL5B58rf4H8SXUoNHBg VNC8tRY3gT4bqQekwuo gbGVmdDsgdmVydGljYW uiJEwlQ050CCDljJbeM hOMDfe3A7RiCxu2RTXw cRjpKK0jiWBrSIziRk7 uyKnoyUezYS6lNXEgjf jqw109UyBsu9qrKYLak FQuYSqiSJJ5V20ai3F3 FWBeOYXnWIE3gUR3mJ9 hbGlnbjogbGVmdDsgdm BywVvoBIhpCRrwS057Q KWudEklNn8DRax0K2Mv Pdj7KIOufOxhHR7ukCK hNRaqVt9jcJjgsTanQI 2mPYDhgwgjp202KjPjl 0wrXWOlqBKoCBmeDNG4 J77mk7C5VJWqJALgQTK 5eYA0uL6uvOrwnxsjvK VmdDsgdmVydGljYWwtY CovL072IVXxvDttKrJi eWVyOjwvdGQ+TE28gf9 4Z2AuLmlzYcp9VDJtQJ P7cTG9xD1fDCZmXKwia 6J3uYX8N8DmbeDjxs8c b2x (more content not included)... [facility] US Pelvis Non-OB Completeon 11-29-2022 US [...] MD 11/30/22 10:38 a Technologist: Geno TORRES [facility] Provider Orderson 11-26-2022 Provider Orders [id number] [facility] Coding Summaryon 11-22-2022 Coding Summary HTMLBase 64 MfejjkcoYMo0nHi+PGh lYWQ+ZH5HASOaG24ogZ KftQ3rK6HSGPqFBkkiR FHWYSwSFnLgcpSnDH4j aXNjZXJu IC8+JX2rXPWeCcckrHS jz3H7mVG2B85nxu0zAY ikvIY5EEPkJrCvcetdy 9netWs1IMjnXvtaPfJl IXQqwM89QVW0sU05Am4 0nAHpeQJpq0wpnWt1At NiZIOnNKZ8dKajRHrpq 1MiLORcF73toPDcn4O5 IGNvbGxhcHNlOyBlbXB 5tC9yLZfygijde5pcro yhDlo6th91sYEzt2X7x AM1V6CmggK0MRHdoFUu YngzdEJJpN9hhdzcl2x erkpiReCjYLGoUKm9ED v7QYUvbSsbWvGuMM55L KD3PBLrkbVeS4AyOVZr iQvzQhA5v1G8Pu7JI1O SUygbH7ZAROMYUVxvhJ Q+SU17wn58U6LiTjpzX pr9VRAdVTE4nNH0sK1o ABXlCUyij4T2hYY3P4L sfhHmbs4ok5tfAUVkZT vpI45loKLft4G6ELUvp QZ7OJGfxDexXrYnvF77 Oyc+CGNdmVhlt8WaQpg cn5ukm2zrqGd4SejrZJ HzxgIfvArmQCB3m0DaC i2aPWJtlVW5kGX9fF3q SpMyXxN4WQwpO640AqF raXYwRgxkZ87aZ0JxwK A+YVWwKhe1RMAiqWauJ T1cL8KtWJCkgzqocJLi kDbeZW9mGAQnclnoRSM yvT0oNFHgR7u5FnLhJq M7GWdvU7CwUZPerknnO k98qQ4eQpIzHcB3NPbn P3CymjQ0GRBwgUAyHZs bIUS8A55mu0A9QINuGM KpQBY8wCV1vS0acHjtn jogbGVmdDsgdmVydGlj WKepNUetU519UXBfzMv nPkNvZGluZyBEYXRlOi AgMDcvMzEvMjAyMzwvd GQ+ELAmZGG9wFkyAOKo yESzBUgtGy3dnWkjsLg iZF2fHPQpzbqcOYEfyC 0xIMIdlNTgwVpfFW3fC CHiwhzdq986KyKmEBV3 QLLwdWFcE0AsxP0uBeS vMSNeBJGmP5OxsBJfBO rhZ557SEfwWoN5GADda fHpL1EcFFNijYskSwB4 k5G5Zg0Al3OcxrisP6N vsSCuRbZoEcfqBCd5Z8 RkPjwvdHI+JD31POJrN R56OLf1ZMP3vUixHYcw TOXrN6CfoV1fPvUyLPQ kZGRkOyc+PHRhYmxlIH dpZHRoPScxMDAlJyBzd KmpSJ5oJg5kSYQgTDKi qUedbPUuLuCig3stMZO oGCqsMF8dgJjyT8CciG S6UOGud8i8Cj93G95xK 3JvdXA+RADhmLV9aVJ0 kY7aGnZnAbN4UPluG94 2NtXkoROaQjrsa2oki9 pyrCj5DxI2BTVtdsAve FueKGC2f6WoBv98T50c IHdpZHRoPSIxNSUiIHZ lrWtasn0iwC2qEj1+PG LoxJW0sQN0bZ9nCcYwG xS9VWlmS726KoEltTHf Quxsd5ztg4gqfPj5ThC pUYRclhJwmHduOCP8h5 EcRm73U7RsnLtvx1ZpB fu3gf59pFDdx1K3vKM6 G6YgTEKdmtqzmYSvhZz tTV0hVTMvwcccOCRerV 5kAFCwX7w7BnBjMgK9B CtdP6MphsR9ZBBmfNFh ZSCusYAJvX2pneazu2g djnehPqEtRVPuPGt7DS s6LIIifEoeUeFfRKW5S uP0UXL0rKNyxI5zxNim hyjyvK7kWeh+UTP0qPY fzNCBFE0xCkgmvWU+PH BzRTX2bBfiBRfsAOZna V4dMWUdA6w8DoOsKlR9 BZnqJ6KhusZ9YXMtzWC hWPTpcHYFkD9qchmqc9 drkffnIuHwZGSqNKn0G Zq7TMYemCbgByCjIWF6 GgR5BXK8qHPegO8gyTs rbzqtfM1bCsd+QmlydG yzBBN4QOl4V0AdQlt0F LWhlFypHU8opJVkPZgr Vm8cnHhaaSnhRZ4bONH awigeg793WcNgn5exQH EjzCOiKJovDPP0M21yz 8X9AYEkPZRjPIB5jNT0 wX7hkEnxmyuowDJokMv gdmVydGljYWwtYWxpZ2 26QQVgqImaXsOmPBn9Q 0ReAip3LCBjmTtwHW7s rVZiFOedGi4zlRedfJq gHD6xZBBlrdoou912Oc Hxn4dnWOOicHMmVMvxC OW0V89hg1V8FOUnNZAg TPD2rUQ5kP0pgVfalyc gbGVmdDsgdmVydGljYW jpFNzjP784GVQpfNxpZ nTwfVs0P9YgXip2JEKv gCjyEE3jeXOdUJcxWw7 afWrwrTmvQX7fCZZrtg wrp698GhEiu9srCTZhz HAzDCxjBMB6M40qy2D7 VBUhLPWvKLB7aUG0lK6 hbGlnbjogbGVmdDsgdm KufYjbXThdFKvnO609P HRvcDsnPlBhdGllbnQg NOwhDVd7V7OsMkvsmXH +XQ50UDBsJO22sIGvaT Epw6nvuOs3ZbIgFZMvM LP5pAohBLtjg8MoDLLq R68dkPMce0K6XOLbwLd adCWjYkYugXE0xH4zMP fyttlex8gqiotaYklzd 0ayib03aO28U82vIHcp ZHRoPSIzMCUiIHZhbGl qvk0kpH8hHv4+PGNvbC L5iII0zD5qTWPcMzU6Y NlaO594DjPrvWDjIqqr t3ckm3lavCh7UmS0LST pogBvxZlqMXC0i4WbEa 55L63eLDibVFEyOSQzM NGxVGLagNgxte1psX9m Ii8+WABsuXH1bWU4tQ5 tTrTvScY7RVuqY480Ji DyiJOmDkitF35kG6Jdi XA+MEZmDle7DRTgfOwv EQ6wpFMnQOmtOu7pZKE 9KkEvClNsOCzbZ9NzLC MxwzmdbkmgtZB7SYEiS JFjnK89Xm2gyNuyLSUd sXREaL7cbuqzq6cvoba aAuHmTNEtYVk9QWz1NO MuvLutXmWoTEU6MzI6D HF8aPEscW4boPklglek bB1tI7TuCSVglrijNs4 2zT8zHbYqGfJ9ZBeeZw c+QkFLRVIsIEFMRVhBT kRSQSBNSUNIRUxMRTwv dGQ+FVLmGLX8eDzjTRh cFNVkiK5vOPLcV5e7Kk DdPaA6DItcY6TiIGBuo ecdXf29mS9qZuXsDhO9 FKdaM6AvvhU7NFUtrZG cXLsqJJA6G16ji6L5XH JoYWQxBFJ1nWD6kT5oa GlnbjogbGVmdDsgdmVy fAoePCgyAAzsE688AAP olZrrNuGvKhP8EoOqCG Z1Z0RgHjy1VQZluRdpE H1agWPeDFbqDp6ftDnf uYymYC9kREZjwrkyKFU dvW4wQEEteZDxfNsjPL 5gABYvootle542QbQvX EU8BZUviFBxE3NvkD9s ApIiHNNwMTVoY9TgrCV iXCxsY088UJybKgK9SL LdlxZyT4MsHSBukCsmG nR6j3S6Bk5lEUMGDGZx czwvdGQ+YLPjVGH8sLm rWJjsOZOrpX8hNHDnY1 z3MzPaUcF2QOrcD1JwI HPtlibjFz89pN3aWrIm NwQ6IPrtU4ReewP4TRR ptLGhOFypANO8O97or5 L2BOGmIOQjUXY5gLR5t X4oeYmobkfyjDKipGrm uwXqzRujTRatXXmiF40 6IHRvcDsnPkZFTUFMRT wvdGQ+QVPmNFM6yOicG KzgPTGurP4bVRDqP1c7 EcNoMeQ4EMhaU3PfYCV vnnviDw31uJ1gFnHmEr B0GEuxI6KqstG1YSIcq JNeLLugAXU9E55tb9D9 KBKrPDSkCKH1uOU9sL0 hbGlnbjogbGVmdDsgdm MwwFfmJWwmLRatV285P NSvzCknZt4UEI53DR60 G8WjKkwymVAhyWI+PHR hYmxlIHdpZHRoPScxMD TpIaUarIwzNC5kYp5yZ GVyLWNvbGxhcHNlOiBj c5wfQESuNWrmTB1xsIl wC1UgtIK8VNLqp7v2In 38B91wQ4VfmVS+PGNvb OH9eMK0pT4wDxWyIvO9 CSipV460WvUniPPjWbe ql8kjt7rxsUy8BvAvAE RxvnDwvIqeHXL6u8SkZ w36Q51kKLgrTPPrPCCg BVZuLKXzlGyqje6ypX6 wIi8+DXXcyNI8dAQ2nV 2xSdUaHcU1BJhkX467K pLyjFYwTuuiW25cW1Hx dXA+LXLdShe9BRZnfOo oLF3rvWOoOKczUr6zCD A0QfTvVsYsSXrzM1TlU HOmiuxcdojkcCU5PIDr WIWisR00Rx7kaTisIr2 aEWIjXIA1ATIjoZUbZ7 AtrU7fQhRiYRAwPWOdH 0KidCMiXNusC646CShe VoM3UIVmljQiJ1OoKTQ juBpyNpL9i1R0Yz3DpD dydEPpTR3gJbAxOLm0M 9BxWkk9VCJbeMusVN0q sEAmKLkpMb5onObniPf tRI9yQQEoephhm097It Vrn5drAIGteUQaBNiqT HR0Y16ja2Y6BCEuLBLx CPH1gGT2jJ3ouLgfdsf gbGVmdDsgdmVydGljYW stXVxsY170OBFneGboN iRKZdo5C9KjCam0TCPr qOioHH1jhEYuBNczAz4 gbXlpxHljHC3jMXKvlr tva341UeUbl4teXEXoi WMeVWbpTQM4P03im3R9 SMWdAHTsXQB2mVI3oQ0 hbGlnbjogbGVmdDsgdm HrtAgfYJulWJpsJ442F XAftZhiVu0FAbg9L9Ag Xiy4ZCNckGetLR8jjAT uMIxtLe5cdLgruJzcJT 2pHPRcebjpi964OjXca 3ahCCWqnQKqSUugYSJ2 V90vs3W2QTNyAMSyKAO 9tUR5uC6lkUnrgtbqhT VmdDsgdmVydGljYWwtY CvkB640ZHPkfHvcVfFo eWVyOjwvdGQ+TO00ux7 8C6BjWubnFzi5LXJnJX P7mEH3rT1rUEJbRRtvn 2I6jWC3J1AbjuAxyw5u b2x (more content not included)... Normal [facility] Dehydroepiandrosterone (DHEA ) LCon 11-20-2022 Dehydroepiandrosterone (DHEA) LC 340 ng/dL Invalid Interpretation Code 31-701 [facility] Comment on above: Result Comment: This test was developed and its performance characteristics determined by [facility]. It has not been cleared or approved by the Food and Drug Administration. Performed At: [address] [id number] Morris Nayak MD Ph:[phone] Performed By: #### 3 [id number] #### [facility] (DEFAULT) [address] [place] [id number] Dehydroepiandrosterone Sulfa te LCon 11-18-2022 DHEA-Sulfate LC 612.0 ug/dL High 110.0-431.7 [facility] Comment on above: Result Comment: Perf ormed At: [address] [id number] Bibi Irwin PhD Ph:[phone] Performed By: #### 9 [id number] #### [facility] (DEFAULT) [address] [place] [id number] FSH and LH LCon 11-18-2022 FSH LC 1.9 mIU/mL Invalid Interpretation Code [facility] Comment on above: Result Comment: Adul t Female: Follicular phase 3.5 - 12.5 Ovulation phase 4.7 - 21.5 Luteal phase 1.7 - 7.7 Postmenopausal 25.8 - 134.8 Performed At: [address] [id number] Bibi Irwin PhD Ph:[phone] Performed By: #### 3 [id number] #### [facility] (DEFAULT) [address] [place] [id number] LH LC 1.9 mIU/mL Invalid Interpretation Code [facility] Comment on above: Result Comment: Adul t Female: Follicular phase 2.4 - 12.6 Ovulation phase 14.0 - 95.6 Luteal phase 1.0 - 11.4 Postmenopausal 7.7 - 58.5 Performed By: #### 6 [id number] #### [facility] (DEFAULT) [address] [place] [address] .Auto Diff 11-17-2022 Auto Jefferson % 5 % Normal -12 [facility] Comment on above: Performed By: #### 0 [id number] #### [facility] (DEFAULT) [address] [place] [address] Baso Abs# 0.1 x10 Normal 0.0-0.2 [facility] Comment on above: Performed By: #### 5 [id number] #### [facility] (DEFAULT) [address] [place] [address] Basophils/100 WBC (Bld) 1.0 % Normal 0.2-2.0 [facility] Comment on above: Performed By: #### 9 [id number], [id number], [id number] #### [facility] (DEFAULT) [address] [place] [address] Eos Abs# 0.1 x10 Normal 0.0-0.4 [facility] Comment on above: Performed By: #### 8 [id number] #### [facility] (DEFAULT) [address] [place] [address] Eosinophils/100 WBC (Bld) 0.7 % Low 0.9-4.0 [facility] Comment on above: Performed By: #### 6 [id number] #### [facility] (DEFAULT) [address] [place] [address] Lymph Abs# 1.9 x10 Normal 1.3-2.9 [facility] Comment on above: Performed By: #### 6 [id number] #### [facility] (DEFAULT) [address] [place] [id number] Lymphocytes/100 WBC (Bld) 19 % Normal 14-48 [facility] Comment on above: Performed By: #### 3 [id number] #### [facility] (DEFAULT) [address] [place] [address] Jefferson Abs# 0.5 x10 Normal 0.0-0.8 [facility] Comment on above: Performed By: #### 5 [id number], [id number] #### [facility] (DEFAULT) [address] [place] [address] Neut Abs# 7.7 x10 Normal 1.5-9.2 [facility] Comment on above: Performed By: #### 0 [id number], [id number] #### [facility] (DEFAULT) [address] [place] [address] Neutrophils/100 WBC (Bld) 75 % Normal 44-88 [facility] Comment on above: Performed By: #### 0 [id number] #### [facility] (DEFAULT) [address] [place] [address] CBC w/ Auto Diffon 3 Erythrocyte distribution width (RBC) [Ratio] 12.9 % Normal 11.5-15.0 [facility] Comment on above: Performed By: #### 5 [id number], [id number] #### [facility] (DEFAULT) [address] [place] [address] Hematocrit (Bld) [Volume fraction] 41.8 % High 33.7-40.4 [facility] Comment on above: Performed By: #### 5 [id number], [id number] #### [facility] (DEFAULT) [address] [place] [address] Hemoglobin (Bld) [Mass/Vol] 14.0 g/dL Normal 11.3-15.9 [facility] Comment on above: Performed By: #### 5 [id number], [id number] #### [facility] (DEFAULT) [address] [place] [address] Man Diff? Auto Invalid Interpretation Code [facility] Comment on above: Performed By: #### 6 [id number], [id number] #### [facility] (DEFAULT) [address] [place] [address] [id number] MCH (RBC) [Entitic mass] 29 pg Normal 24-34 [facility] Comment on above: Performed By: #### 7 [id number] #### [facility] (DEFAULT) [address] [place] [address] 51585 MCHC (RBC) [Mass/Vol] 34 g/dL Normal 26-37 [facility] Comment on above: Performed By: #### 4 [id number], [id number], [id number] #### [facility] (DEFAULT) [address] [place] [address] 89975 MCV (RBC) [Entitic vol] 87 fL Normal 81-100 [facility] Comment on above: Performed By: #### 7 [id number], [id number], [id number] #### [facility] (DEFAULT) [address] [place] [address] 30291 Platelet 280 x10 Normal 138-427 [facility] Comment on above: Performed By: #### 1 [id number], [id number], [id number] #### [facility] (DEFAULT) [address] [place] [address] 82093 Platelet mean volume (Bld) [Entitic vol] 8.0 fL Normal 6.3-10.2 [facility] Comment on above: Performed By: #### 4 [id number], [id number] #### [facility] (DEFAULT) [address] [place] [address] 88358 RBC 4.83 x10 Normal 3.70-5.30 [facility] Comment on above: Performed By: #### 4 [id number], [id number], [id number] #### [facility] (DEFAULT) [address] [place] [address] WBC 10.3 x10 Normal 3.5-10.5 [facility] Comment on above: Performed By: #### 5 [id number], [id number], [id number] #### [facility] (DEFAULT) [address] [place] [address] Free T4on 11-17-2022 Free T4 [Mass/Vol] 1.06 ng/dL Normal 0.61-1.12 [facility] Comment on above: Performed By: #### 7 [id number], [id number], [id number] #### [facility] (DEFAULT) [address] [place] [address] HgbA1c Standardon 11-17-2022 .Hb 15.7 Invalid Interpretation Code [facility] Comment on above: Performed By: #### 4 [id number], [id number] #### [facility] (DEFAULT) [address] [place] [address] 13401 .Hgb A1c 0.55 g/dL Invalid Interpretation Code [facility] Comment on above: Performed By: #### 0 [id number], [id number], [id number] #### [facility] (DEFAULT) [address] [place] [address] Glucose [Mass/Vol] 105 mg/dL Invalid Interpretation Code [facility] Comment on above: Performed By: #### 6 [id number], [id number], [id number] #### [facility] (DEFAULT) [address] [place] [address] 29155 HbA1c (Bld) [Mass fraction] 5.3 % Normal 4.6-6.2 [facility] Comment on above: Performed By: #### 5 [id number], [id number], [id number] #### [facility] (DEFAULT) [address] [place] [address] Provider Orderson 11-17-2022 Provider Orders [id number] 07#1.00OTGTIFF Normal [facility] TSHon 11-17-2022 TSH Qn 1.26 m[IU]/L Normal 0.45-5.33 [facility] Comment on above: Performed By: #### 5 [id number], [id number], [id number] #### [facility] (DEFAULT) [address] [place] [address]120 hCG Quantitativeon hCG Quantitative <0.6 Normal 0.0-0.6 [facility] Comment on above: Result Comment: Post -Menopausal Reference Range is: 0.1-11.6 mIU/mL Performed By: #### 2 [id number], [id number], [id number] #### [facility] (DEFAULT) [address] [place] [address] 11816 Lab - Toxicology Resultson 0 10-20-2022 Lab - Toxicology Results [id number] [facility] QuantiFERON-TB Gold Pluson 0 10-20-2022 QuantiFERON-TB Gold Plus Negative Invalid Interpretation Code Negative [facility] Comment on above: Result Comment: No r esponse to M tuberculosis antigens detected. Infection with M tuberculosis is unlikely, but high risk individuals should be considered for additional testing (ATS/IDSA/CDC Clinical Practice Guidelines, 2017). The reference range is an Antigen minus Nil result of <0.35 IU/mL. Chemiluminescence immunoassay methodology Performed At: [employer] [address] [id number] Bibi Irwin PhD Ph:[phone] Performed By: #### 0 [id number], [id number], [id number] #### [facility] (DEFAULT) [address] [place] [address]76 QuantiFERON Incubation Incubation performed. Invalid Interpretation Code [facility] Comment on above: Result Comment: Perf ormed At: [employer] [id number] Bibi Irwin PhD Ph:[phone] Performed By: #### 3 [id number], [id number], [id number] #### [facility] (DEFAULT) [address] [place] [address] HBSab Qnt on 10-19-2022 Hep B Surf Ab Quant LC <3.1 Low Immunity>9.9 [facility] Comment on above: Result Comment: Stat us of Immunity Anti-HBs Level Inconsistent with Immunity 0.0 - 9.9 Consistent with Immunity >9.9 Performed At: [address] [id number] Bibi Irwin PhD Ph:[phone] Performed By: #### 0 [id number], [id number], [id number] #### [facility] (DEFAULT) [address] [place] [address]1215 Measles/Mumps/Rubella Immuni ty LCon 10-19-2022 Mumps Abs, IgG LC 132.0 AU/mL Invalid Interpretation Code Immune >10.9 [facility] Comment on above: Result Comment: Nega tive <9.0 Equivocal 9.0 - 10.9 Positive >10.9 A positive result generally indicates past exposure to Mumps virus or previous vaccination. Performed At: [address] [id number] Bibi Irwin PhD Ph:[phone] Performed By: #### 8 [id number], [id number], [id number] #### [facility] (DEFAULT) [address] [place] [address]376 Rubella Antibodies, IgG LC 1.78 index Invalid Interpretation Code Immune >0.99 [facility] Comment on above: Result Comment: Non- immune <0.90 Equivocal 0.90 - 0.99 Immune >0.99 Performed By: #### 1 [id number], [id number], [id number] #### [facility] (DEFAULT) [address] [place] [address] 36412 Rubeola Ab, IgG, EIA LC >300.0 Invalid Interpretation Code Immune >16.4 [facility] Comment on above: Result Comment: Nega tive <13.5 Equivocal 13.5 - 16.4 Positive >16.4 Presence of antibodies to Rubeola is presumptive evidence of immunity except when acute infection is suspected. Performed By: #### 4 [id number], [id number], [id number] #### [facility] (DEFAULT) [address] [place] [address] Nicotine Metabolite, Urine L Con 10-19-2022 Cotinine LC Negative Invalid Interpretation Code Tmadja=[id number] [facility] Comment on above: Result Comment: Perf ormed At: [facility] [place] [address] [place], [place] [id number] Rachel Garcia PhD Ph:[phone] Performed By: #### 1 [id number], [id number], [id number] #### [facility] (DEFAULT) [address] [place] [address] US Pelvic Complete w/Transva ginalon 06-21-2022 US [...] by Pepito Martins on 06/22/2022 1125 Normal [facility] XR Abdomen Single View (KUB) *on 06-18-2022 XR Abdomen Single View (KUB)* COMPARISON: NONE. FINDINGS: The bowel gas pattern is unremarkable. There are no dilated loops of bowel. There are no acute osseous changes. IMPRESSION: There are no acute changes. Report reported and signed by ALONSO PADRON on 06/19/2022 1201 Normal [facility] Program Support Clerk CBC AUTO DIFFon 12-12-2020 BASO # 0.1 103/ul Normal 0.0-0.1 [facility] Comment on above: Performed By: #### C BC #### [facility] [address] [place], [place] [id number] Jatin Tracey Basophils/100 WBC (Bld) 0.7 % Normal 0.2-2.0 [facility] Comment on above: Performed By: #### C BC #### [facility] [address] [place] [address] Jatin Tracey EO # 0.4 103/ul Normal 0.0-0.7 [facility] Comment on above: Performed By: #### C BC #### [facility] [address] [place], [place] [id number] Jatin Tarcey Eosinophils/100 WBC (Bld) 3.4 % Normal 0.9-7.0 [facility] Comment on above: Performed By: #### C BC #### [facility] [address] [place], [place] [address] Jatin Tracey Erythrocyte distribution width (RBC) [Ratio] 11.8 % Normal 11.0-15.0 [facility] Comment on above: Performed By: #### C BC #### [facility] [address] [place], [place] [id number] Jatin Tracey Hematocrit (Bld) [Volume fraction] 42.6 % Normal 36.0-48.0 [facility] Comment on above: Performed By: #### C BC #### [facility] [address] [place], [place] [address] Jatin Tracey Hemoglobin (Bld) [Mass/Vol] 14.3 g/dL Normal 12.0-16.0 [facility] Comment on above: Performed By: #### C BC #### [facility] [address] [place], [place] [address] Jatin Tracey IG # 0.03 10e3/ul Normal 0.00-0.03 [facility] Comment on above: Performed By: #### C BC #### [facility] [address] [place], [place] [address] Jatinandrez Webb IG % 0.3 % Normal 0.0-0.5 [facility] Comment on above: Performed By: #### C BC #### [facility] [address] [place], [place] [address] Jatin Tracey LYMPH # 2.2 103/ul Normal 1.2-3.8 [facility] Comment on above: Performed By: #### C BC #### [facility] [address] [place], [place] [address] Jatin Webb Lymphocytes/100 WBC (Bld) 20.7 % Normal 20.5-60.0 [facility] Comment on above: Performed By: #### C BC #### [facility] [address] [place] [address] Jatin Webb MANUAL DIFF REQ NO Normal [facility] Comment on above: Performed By: #### C BC #### [facility] [address] [place] [address] Jatinandrez Webb MCH (RBC) [Entitic mass] 30.4 pg Normal 26.7-34.0 [facility] Comment on above: Performed By: #### C BC #### [facility] [address] [place] [address] Jatin Webb MCHC (RBC) [Mass/Vol] 33.6 g/dL Normal 29.9-35.2 [facility] Comment on above: Performed By: #### C BC #### [facility] [address] [place] [address] Jatinandrez Webb MCV (RBC) [Entitic vol] 90.4 fL Normal 81.0-99.0 [facility] Comment on above: Performed By: #### C BC #### [facility] [address] [place] [address] Jatinandrez Vergaraen MONO # 0.6 103/ul Normal 0.3-0.8 [facility] Comment on above: Performed By: #### C BC #### [facility] [address] [place], [place] [address] Jatin Tracey Monocytes/100 WBC (Bld) 6.0 % Normal 1.7-12.0 T [facility] Comment on above: Performed By: #### C BC #### [facility] [address] [place], [place] [address] Jatin Tracey NEUT # 7.3 103/ul Critically high 1.4-6.5 [facility] Comment on above: Performed By: #### C BC #### [facility] [address] [place] [address] Jatin Tracey Neutrophils/100 WBC (Bld) 68.9 % Normal 43.0-75.0 [facility] Comment on above: Performed By: #### C BC #### [facility] [address] [place], [place] [address] Jatin Tracey Platelet mean volume (Bld) [Entitic vol] 9.7 fL Normal 9.5-13.5 [facility] Comment on above: Performed By: #### C BC #### [facility] [address] [place], [place] [address] Jatin Tracey PLT 252 103/ul Normal 150-450 [facility] Comment on above: Performed By: #### C BC #### [facility] [address] [place], [place] [address] Jatin Tracey RBC 4.71 106/ul Normal 4.20-5.40 [facility] Comment on above: Performed By: #### C BC #### [facility] [address] [place], [place] [address] Jatin Tracey WBC 10.6 103/ul Normal 4.0-11.0 [facility] Comment on above: Performed By: #### C BC #### [facility] [address] [place] [address] ABD/PELV W CONon 12-13-19 CT ABD/PELV [...] Sabiha RUSHING Date: 2020-12-12 04:08 Normal [facility] PREG HCG QUALon 12-12-2020 , QUAL Negative Normal NEGATIVE [facility] Comment on above: Performed By: #### P REG #### [facility] [address] [place] [address] Jatin Webb PROF 14(COMP METB)on 021 Albumin [Mass/Vol] 3.9 g/dL Normal 3.5-5.0 [facility] Comment on above: Performed By: #### C MP #### [facility] [address] [place] [address] Jatin Tracey Albumin/Globulin [Mass ratio] 1.1 {ratio} Normal [facility] Comment on above: Performed By: #### C MP #### [facility] [address] [place] [address] Jatin Tracey ALP [Catalytic activity/Vol] 93 U/L Normal 38-126 [facility] Comment on above: Performed By: #### C MP #### [facility] [address] [place] [address] Jatin Tracey ALT [Catalytic activity/Vol] 16 U/L Normal 9-52 [facility] Comment on above: Performed By: #### C MP #### [facility] [address] [place] [address] Jatin Tracey Anion gap [Moles/Vol] 17.1 mmol/L Normal Th [facility] Comment on above: Performed By: #### C MP #### [facility] [address] [place] [address] Jatin Tracey AST [Catalytic activity/Vol] 3 U/L Critically low 14-36 [facility] Comment on above: Performed By: #### C MP #### [facility] [address] [place] [address] Jatin Tracey Bilirubin [Mass/Vol] 0.3 mg/dL Normal 0.2-1.3 [facility] Comment on above: Performed By: #### C MP #### [facility] [address] [place] [address] Jatin Tracey Calcium [Mass/Vol] 8.9 mg/dL Normal 8.4-10.2 [facility] Comment on above: Performed By: #### C MP #### [facility] [address] [place] [address] Jatin Tracey Chloride [Moles/Vol] 106 mmol/L Normal 98-107 [facility] Comment on above: Performed By: #### C MP #### [facility] [address] [place] [address] Jatin Tracey CO2 [Moles/Vol] 23.0 mmol/L Normal 22.0-30.0 [facility] Comment on above: Performed By: #### C MP #### [facility] [address] [place] [address] Jatin Tracey Creatinine [Mass/Vol] 0.76 mg/dL Normal 0.52-1.04 [facility] Comment on above: Performed By: #### C MP #### [facility] [address] [place], [place] [address] Jatin Tracey EGFR-AF SLOVENIAN >60 Normal >=60 [facility] Comment on above: Performed By: #### C MP #### [facility] [address] [place] [address] Jatin Tracey EGFR-NON AF SLOVENIAN >60 Normal >=60 [facility] Comment on above: Performed By: #### C MP #### [facility] [address] [place] [id number] Jatin Tracey Globulin (S) [Mass/Vol] 3.7 g/dL Normal T [facility] Comment on above: Performed By: #### C MP #### [facility] [address] [place] [id number] Jatin Tracey Glucose [Mass/Vol] 96 mg/dL Normal 74-106 [facility] Comment on above: Performed By: #### C MP #### [facility] [address] [place] [id number] Jatin Tracey Potassium [Moles/Vol] 4.1 mmol/L Normal 3.4-5.0 [facility] Comment on above: Performed By: #### C MP #### [facility] [address] [address] Jatin Tracey Protein [Mass/Vol] 7.6 g/dL Normal 6.1-8.2 [facility] Comment on above: Performed By: #### C MP #### [facility] [address] [place] [id number] Jatin Tracey Sodium [Moles/Vol] 142 mmol/L Normal 137-145 [facility] Comment on above: Performed By: #### C MP #### [facility] [address] [place] [id number] Jatin Tracey Urea nitrogen [Mass/Vol] 14.0 mg/dL Normal 6.4-19.3 [facility] Comment on above: Performed By: #### C MP #### [facility] [address] [place] [id number] Jatin Tracey Urea nitrogen/Creatinine [Mass ratio] 18.4 mg/mg Normal [facility] Comment on above: Performed By: #### C MP #### [facility] [address] [place] [phone] Jatin Tracey PROTIMEon 12-12-2020 INR Coag (PPP) [Relative time] 1.00 {INR} Normal [facility] Comment on above: Performed By: #### P TT, PT #### [facility] [address] [place], [place] [address] Jatin Webb INR GUIDELINES SEE BELOW Normal [facility] Comment on above: Result Comment: MAHESH RED INR: 2.0 - 3.0 CONDITIONS NOT LISTED BELOW 2.5 - 3.5 FOR PROSTHETIC HEART VALVE REPLACEMENT 2.5 - 3.5 RECURRENT THROMBOSIS Performed By: #### P TT, PT #### [facility] [address] [place], [place] [address] Jatin Webb PT Coag (PPP) [Time] 10.8 s Normal 9.0-11.6 [facility] Comment on above: Performed By: #### P TT, PT #### [facility] [address] [place], [place] [address] Jatin Webb PTTon 12-12-2020 aPTT Coag (Bld) [Time] 26.2 s Normal 22.3-36.2 [facility] Comment on above: Performed By: #### P TT, PT #### [facility] [address] [place] [address] Jatin Webb XR CHEST 1 Von 12-12-2020 XR CHEST 1 V EXAM: XR CHEST 1 V HISTORY: Chest pain left-sided rib pain COMPARISON: None. TECHNIQUE: Single frontal view chest x-ray FINDINGS: No lobar consolidation, large effusions, pneumothorax, or discrete acute bony abnormality. Cardiac size unremarkable. IMPRESSION: No radiographic evidence for acute chest abnormality. Electronically authenticated by: ODALIS BRICENO Date: 2020-12-12 03:25 Normal [facility] Vital Signs Date Time Vital Sign Value Performing Clinician Faci cecilley 01-21-2025 16:04-0400 Body mass index (BMI) [Ratio] 42.91 kg/m2 Silva Olmstead NP Work Phone: [facility] 01-21-2025 16:04-0400 Body weight 113.4 kg Silva Olmstead NP Work Phone: [facility] 01-21-2025 16:04-0400 Diastolic blood pressure 64 mm[Hg] Silva Olmstead NP Work Phone: [facility] 01-21-2025 16:04-0400 Heart rate 95 /min Silva Olmstead SUSTAINABILITY COORDINATOR Work Phone: [facility] 01-21-2025 16:04-0400 SaO2% (BldA) [Mass fraction] 99 % Silva Olmstead SUSTAINABILITY COORDINATOR Work Phone: [facility] 01-21-2025 16:04-0400 Systolic blood pressure 116 mm[Hg] Silva Olmstead SUSTAINABILITY COORDINATOR Work Phone: [facility] 07-24-2024 12:59-0400 Body height 162.6 cm Jeannie Soni MD Work Phone: [facility] 07-24-2024 12:59-0400 Body mass index (BMI) [Ratio] 40.51 kg/m2 Jeannie Soni MD Work Phone: [facility] 07-24-2024 12:59-0400 Body weight 107.05 kg Jeannie Soni MD Work Phone: [facility] 07-24-2024 12:59-0400 Diastolic blood pressure 66 mm[Hg] Jeannie Soni MD Work Phone: [facility] 07-24-2024 12:59-0400 Heart rate 103 /min Jeannie Soni MD Work Phone: [facility] 07-24-2024 12:59-0400 SaO2% (BldA) [Mass fraction] 97 % Jeannie Soni MD Work Phone: [facility] 07-24-2024 12:59-0400 Systolic blood pressure 112 mm[Hg] Jeannie Soni MD Work Phone: [facility] 06-13-2024 13:42-0500 Body mass index (BMI) [Ratio] 38.62 kg/m2 Yaritza CAMARILLO Work Phone: [facility] 06-13-2024 13:42-0500 Body weight 102.06 kg Yaritza CAMARILLO Work Phone: [facility] 05-30-2024 14:20-0500 Body height 162.6 cm Silva Olmstead SUSTAINABILITY COORDINATOR Work Phone: [facility] 05-30-2024 14:20-0500 Body mass index (BMI) [Ratio] 38.28 kg/m2 Silva Olmstead SUSTAINABILITY COORDINATOR Work Phone: [facility] 05-30-2024 14:20-0500 Body weight 101.15 kg Silva Olmstead SUSTAINABILITY COORDINATOR Work Phone: [facility] 05-30-2024 14:20-0500 Diastolic blood pressure 80 mm[Hg] Silva Olmstead SUSTAINABILITY COORDINATOR Work Phone: [facility] 05-30-2024 14:20-0500 Heart rate 115 /min Silva Olmstead SUSTAINABILITY COORDINATOR Work Phone: [facility] 05-30-2024 14:20-0500 SaO2% (BldA) [Mass fraction] 98 % Silva Olmstead SUSTAINABILITY COORDINATOR Work Phone: [facility] 05-30-2024 14:20-0500 Systolic blood pressure 124 mm[Hg] Silva Olmstead SUSTAINABILITY COORDINATOR Work Phone: [facility] 04-19-2024 11:36-0500 Body mass index (BMI) [Ratio] 41.9 kg/m2 Shaw Alia DO Work Phone: [facility] 04-19-2024 11:36-0500 Body weight 110.73 kg Shaw Alia DO Work Phone: [facility] 04-19-2024 11:36-0500 Diastolic blood pressure 80 mm[Hg] Shaw Alia DO Work Phone: [facility] 04-19-2024 11:36-0500 Systolic blood pressure 122 mm[Hg] Shaw Alia DO Work Phone: [facility] 04-11-2024 13:49-0500 Body mass index (BMI) [Ratio] 41.5 kg/m2 Yaritza CAMARILLO Work Phone: [facility] 04-11-2024 13:49-0500 Body weight 109.68 kg Yaritza Wendy PA Work Phone: [facility] 04-11-2024 13:49-0500 Diastolic blood pressure 70 mm[Hg] Yaritza Wendy PA Work Phone: [facility] 04-11-2024 13:49-0500 Systolic blood pressure 100 mm[Hg] Yaritza Wendy PA Work Phone: [facility] 04-04-2024 14:14-0500 Body mass index (BMI) [Ratio] 41.5 kg/m2 Shaw Alia DO Work Phone: [facility] 04-04-2024 14:14-0500 Body weight 109.68 kg Shaw Alia DO Work Phone: [facility] 04-04-2024 14:14-0500 Diastolic blood pressure 72 mm[Hg] Shaw Alia DO Work Phone: [facility] 04-04-2024 14:14-0500 Systolic blood pressure 114 mm[Hg] Shaw Alia DO Work Phone: [facility] 03-26-2024 11:04-0500 Body mass index (BMI) [Ratio] 41.33 kg/m2 Yaritza Wendy PA Work Phone: [facility] 03-26-2024 11:04-0500 Body weight 109.23 kg Yaritza Portillo PA Work Phone: [facility] 03-26-2024 11:04-0500 Diastolic blood pressure 76 mm[Hg] Yaritza Wendy PA Work Phone: [facility] 03-26-2024 11:04-0500 Systolic blood pressure 118 mm[Hg] Yaritza Wendy PA Work Phone: [facility] 03-08-2024 11:32-0500 Body mass index (BMI) [Ratio] 40.92 kg/m2 Shaw Alia DO Work Phone: [facility] 03-08-2024 11:32-0500 Body weight 108.14 kg Shaw Alia DO Work Phone: [facility] 03-08-2024 11:32-0500 Diastolic blood pressure 68 mm[Hg] Shaw Alia DO Work Phone: [facility] 03-08-2024 11:32-0500 Systolic blood pressure 120 mm[Hg] Shaw Alia DO Work Phone: [facility] 02-23-2024 13:55-0400 Body mass index (BMI) [Ratio] 40.51 kg/m2 Yaritza Lyerly PA Work Phone: [facility] 02-23-2024 13:55-0400 Body weight 107.05 kg Yaritza Wendy PA Work Phone: [facility] 02-23-2024 13:55-0400 Diastolic blood pressure 74 mm[Hg] Yaritza Wendy PA Work Phone: [facility] 02-23-2024 13:55-0400 Systolic blood pressure 118 mm[Hg] Yaritza Lyerly PA Work Phone: [facility] 02-07-2024 10:54-0400 Body mass index (BMI) [Ratio] 39.95 kg/m2 Yaritza Wendy PA Work Phone: [facility] 02-07-2024 10:54-0400 Body weight 105.58 kg Yaritza Lyerly PA Work Phone: [facility] 02-07-2024 10:54-0400 Diastolic blood pressure 72 mm[Hg] Yaritza Wendy PA Work Phone: [facility] 02-07-2024 10:54-0400 Systolic blood pressure 116 mm[Hg] Yaritza Lyerly PA Work Phone: [facility] 01-12-2024 12:00-0400 Body mass index (BMI) [Ratio] 38.59 kg/m2 Shaw Alia DO Work Phone: [facility] 01-12-2024 12:00-0400 Body weight 101.97 kg Shaw Alia DO Work Phone: [facility] 01-12-2024 12:00-0400 Diastolic blood pressure 70 mm[Hg] Shaw Alia DO Work Phone: [facility] 01-12-2024 12:00-0400 Systolic blood pressure 120 mm[Hg] Shaw Alia DO Work Phone: [facility] 12-14-2023 11:24-0400 Body mass index (BMI) [Ratio] 37.61 kg/m2 Yaritza CAMARILLO Work Phone: [facility] 12-14-2023 11:24-0400 Body weight 99.39 kg Yaritza Portillo PA Work Phone: [facility] 12-14-2023 11:24-0400 Diastolic blood pressure 62 mm[Hg] Yaritza CAMARILLO Work Phone: [facility] 12-14-2023 11:24-0400 Systolic blood pressure 102 mm[Hg] Yaritza CAMARILLO Work Phone: [facility] Healthcare Encounters Encounter Date Encounter Type Care Provider Facility Start: 01-21-2025 End: 01-21-2025 Office outpatient visit 15 minutes Silva Olmstead NP Work Phone: [facility] Comment on above: Gastroesophageal ref lux disease without esophagitis (Primary Dx) Start: 01-21-2025 End: 01-21-2025 Bamboo flowsheet Silva Olmstead SUSTAINABILITY COORDINATOR Work Phone: [facility] Start: 01-21-2025 End: 01-21-2025 Bamboo flowsheet Silva Olmstead NP Work Phone: [facility] Start: 07-28-2024 End: 07-28-2024 Emergency department patient visit LEAH AZAR [facility] Start: 07-24-2024 End: 07-24-2024 Bamboo flowsheet Jeannie Soni MD Work Phone: [facility] Start: 07-24-2024 End: 07-24-2024 Bamboo flowsheet Jeannie Soni MD Work Phone: [facility] Start: 07-24-2024 End: 07-24-2024 Office outpatient visit 15 minutes Jeannie Soni MD Work Phone: [facility] Comment on above: Acute midline low ba ck pain without sciatica (Primary Dx) Start: 07-24-2024 End: 07-24-2024 ambulatory JEANNIE SONI Not Available Start: 07-18-2024 End: 07-18-2024 ambulatory SILVA OLMSTEAD Not Available Start: 06-27-2024 End: 06-27-2024 Telephone encounter Jeannie Soni MD Work Phone: [facility] Start: 06-13-2024 End: 06-13-2024 ambulatory YARITZA PORTILLO Not Available Start: 06-13-2024 End: 06-13-2024 care visit Yaritza CAMARILLO Work Phone: [facility] Comment on above: Uses control ( Primary Dx); 6 weeks follow-up Start: 05-30-2024 End: 05-30-2024 Office outpatient visit 25 minutes Silva Olmstead SUSTAINABILITY COORDINATOR Work Phone: [facility] Comment on above: Blurred vision (Prim marilyn Dx); Transient visual loss of both eyes; Acute left-sided low back pain with left-sided sciatica; Viral gastroenteritis Start: 05-30-2024 End: 05-30-2024 ambulatory SILVA OLMSTEAD Not Available Start: 05-30-2024 End: 05-30-2024 Bamboo flowsheet Silva Olmstead SUSTAINABILITY COORDINATOR Work Phone: [facility] Start: 05-30-2024 End: 05-30-2024 Bamboo flowsheet Silva Olmstead SUSTAINABILITY COORDINATOR Work Phone: [facility] Start: 05-25-2024 End: 05-29-2024 Telephone encounter Ngozi Ledezma LPN Work Phone: [facility] Start: 04-28-2024 End: 04-28-2024 Clinisync Result Encounter Shaw Alia DO Work Phone: [facility] Unsolicited Start: 04-28-2024 End: 04-28-2024 Clinisync Result Encounter Shaw Alia DO Work Phone: [facility] Unsolicited Start: 04-19-2024 End: 04-19-2024 Bamboo flowsheet Shaw Alia DO Work Phone: [facility] Start: 04-19-2024 End: 04-19-2024 Bamboo flowsheet Shaw Alia DO Work Phone: [facility] Start: 04-19-2024 End: 04-19-2024 flow sheet Shaw Alia DO Work Phone: [facility] Comment on above: 38 weeks gestation o f ; Third trimester ; Excessive growth affecting management of , antepartum, single or unspecified fetus Start: 04-19-2024 End: 04-19-2024 ambulatory SHAW ALIA Not Available Start: 04-11-2024 End: 04-11-2024 Bamboo flowsheet Yaritza CAMARILLO Work Phone: [facility] Start: 04-11-2024 End: 04-11-2024 Bamboo [...] flow sheet Shaw Alia DO Work Phone: [facility] Comment on above: Third trimester preg lakeisha; 36 weeks gestation of ; Upper respiratory tract infection, unspecified type; Heartburn during in third trimester Start: 04-04-2024 End: 04-04-2024 ambulatory SHAW ALIA Not Available Start: 03-26-2024 End: 03-26-2024 Bamboo flowsheet Yaritza CAMARILLO Work Phone: [facility] Start: 03-26-2024 End: 03-26-2024 Bamboo flowsheet Yaritza CAMARILLO Work Phone: [facility] Start: 03-26-2024 End: 03-26-2024 ambulatory YARITZA PORTILLO Not Available Start: 03-26-2024 End: 03-26-2024 flow sheet Yaritza CAMARILLO Work Phone: [facility] Comment on above: Dyspepsia (Primary D x); Third trimester ; 35 weeks gestation of Start: 03-15-2024 End: 03-15-2024 Clinisync Result Encounter Shaw Alia DO Work Phone: [facility] External Department Unsolicited Start: 03-15-2024 End: 03-15-2024 Clinisync Result Encounter Shaw Alia DO Work Phone: [facility] Unsolicited Start: 03-08-2024 End: 03-08-2024 Bamboo flowsheet Shaw Alia DO Work Phone: [facility] Start: 03-08-2024 End: 03-08-2024 Bamboo flowsheet Shaw Alia DO Work Phone: [facility] Start: 03-08-2024 End: 03-08-2024 ambulatory SHAW ALIA Not Available Start: 03-08-2024 End: 03-08-2024 flow sheet Shaw Alia DO Work Phone: [facility] Comment on above: 32 weeks gestation o f ; Third trimester ; Gastroesophageal reflux in ; Nausea/vomiting in ; Hematuria, unspecified type Start: 02-23-2024 End: 02-23-2024 Bamboo flowsheet Yaritza CAMARILLO Work Phone: [facility] Start: 02-23-2024 End: 02-23-2024 Bamboo flowsheet Yaritza Portillo PA Work Phone: [facility] Start: 02-23-2024 End: 02-23-2024 ambulatory YARITZA PORTILLO Not Available Start: 02-23-2024 End: 02-23-2024 flow sheet Yaritza CAMARILLO Work Phone: [facility] Comment on above: Third trimester preg lakeisha; 30 weeks gestation of Start: 02-07-2024 End: 02-07-2024 Bamboo flowsheet Yaritza CAMARILLO Work Phone: [facility] Start: 02-07-2024 End: 02-07-2024 Bamboo flowsheet Yaritza CAMARILLO Work Phone: [facility] Start: 02-07-2024 End: 02-07-2024 ambulatory YARITZA PORTILLO Not Available Start: 02-07-2024 End: 02-07-2024 flow sheet Yaritza CAMARILLO Work Phone: [facility] Comment on above: Second trimester [...] Start: 01-12-2024 End: 01-12-2024 Bamboo flowsheet Shaw Galeanoo DO Work Phone: [facility] Start: 01-12-2024 End: 01-12-2024 Bamboo flowsheet Shaw Alia DO Work Phone: [facility] Start: 01-12-2024 End: 01-12-2024 ambulatory SHAW ALIA Not Available Start: 01-12-2024 End: 01-12-2024 flow sheet Shaw Alia DO Work Phone: [facility] Comment on above: 24 weeks gestation o f ; Diabetes mellitus screening; UTI symptoms Start: 12-14-2023 End: 12-14-2023 Bamboo flowsheet Yaritza CAMARILLO Work Phone: [facility] Start: 12-14-2023 End: 12-19-2023 Clinisync Result Encounter Generic External Data Provider [facility] Unsolicited Start: 12-14-2023 End: 12-16-2023 External Result Encounter Yaritza CAMARILLO Work Phone: [facility] External Department Unsolicited Start: 12-14-2023 End: 12-19-2023 External Result Encounter Yaritza CAMARILLO Work Phone: [facility] External Department Unsolicited Start: 12-14-2023 End: 12-14-2023 Office outpatient visit 15 minutes Yaritza CAMARILLO Work Phone: [facility] Comment on above: 20 weeks gestation o f ; Well woman exam with routine gynecological exam; Screening, , for anatomic survey; STD exposure; Vaginal discharge; Nausea/vomiting in ; Gastroesophageal reflux in ; Nonintractable headache, unspecified chronicity pattern, unspecified headache type; Constipation, unspecified constipation type Start: 12-14-2023 End: 12-14-2023 Patient encounter procedure Yaritza CAMARILLO Work Phone: [facility] Healthcare Start: 12-14-2023 End: 12-14-2023 ambulatory YARITZA PORTILLO Not Available Start: 10-31-2023 End: 10-31-2023 ambulatory SHAW ALIA Not Available Start: 10-06-2023 End: 10-06-2023 ambulatory SHAW R ALIA Facility:[facility] Start: 09-29-2023 End: 09-29-2023 ambulatory SILVA OLMSTEAD Not Available Start: 08-02-2023 End: 08-02-2023 ambulatory SARAH NELSON Not Available Start: 04-22-2023 End: 04-22-2023 ambulatory [facility] Facility:[facility] Start: 01-10-2023 End: 01-10-2023 ambulatory [facility] Facility:[facility] Start: 12-11-2022 ambulatory [facility] Facility:[facility] Start: 11-29-2022 End: 11-29-2022 ambulatory [facility] Facility:[facility] Start: 11-17-2022 End: 11-17-2022 ambulatory SHAW Nish ALIA Facility:[facility] Start: 10-18-2022 End: 10-18-2022 ambulatory [facility] Facility:[facility] Start: 12-12-2020 End: 12-12-[address] BRANDON LE Facility:[facility] Procedures Date Procedure Procedure Detail Performing Clinician Start: 04-28-2024 ALL CBC WITH AUTO DIFF Shaw Alia DO Work Phone: Start: 04-19-2024 Urnls dip stick/tabl et rgnt non-auto w/o micrscp Shaw Alia DO Work Phone: Start: 04-11-2024 Urnls dip stick/tabl et rgnt non-auto w/o micrscp Yaritza CAMARILLO Work Phone: Start: 04-04-2024 Urnls dip stick/tabl et rgnt non-auto w/o micrscp Shaw Alia DO Work Phone: Start: 04-04-2024 ALL MISCELLANEOUS TEST Shaw Alia DO Work Phone: Start: 03-26-2024 Urnls dip stick/tabl et rgnt non-auto w/o micrscp Yaritza CAMARILLO Work Phone: Start: 03-15-2024 [facility] UA (CLEAN/CATCH) SECURITY OPERATIONS MANAGER/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 Shaw Alia DO Work Phone: Start: 03-08-2024 Urnls dip stick/tabl et rgnt non-auto w/o micrscp Shaw Alia DO Work Phone: Start: 02-23-2024 Urnls dip stick/tabl et rgnt non-auto w/o micrscp Yaritza CAMARILLO Work Phone: Start: 02-07-2024 Urnls dip stick/tabl et rgnt non-auto w/o micrscp Yaritza CAMARILLO Work Phone: Start: 02-06-2024 GLUCOSE 1 HOUR Shaw Fa zio DO Work Phone: Start: 01-12-2024 Urnls dip stick/tabl et rgnt non-auto w/o micrscp Shaw Alia DO Work Phone: Start: 12-14-2023 AFP, SERUM, OPEN SPI NA BIFIDA Shaw Alia DO Work Phone: Start: 12-14-2023 URETHRITIS/DISCHARGE PLUS VAGINITIS (HTRX) Yaritza CAMARILLO Work Phone: Start: 12-14-2023 Urnls dip stick/tabl et rgnt non-auto w/o micrscp Yaritza CAMARILLO Work Phone: Start: 12-14-2023 Cytp cerv/vag auto t hin layer prep mnl screen Shaw Alia DO Work Phone: Plan of Treatment Date Care Activity Detail Author Start: 01-25-2025 End: 01-25-2025 ambulatory 01/25/2025 10:00 AM EDT Initial [facility] [address] [place] [address] [facility] Start: 01-25-2025 End: 01-25-2025 Professional / ancillary services management 01/25/2025 9:30 AM EDT Ancillary Procedure [facility] [address] [place] [phone] [facility] Start: 12-24-2024 Influenza vaccination [facility] Start: 07-24-2024 End: 07-24-2025 XR Lumbar spine Views W flexion and W extension XR lumbar spine 4+ views w flexion extension Imaging Routine Acute midline low back pain without sciatica Expected: 07/24/2024, Expires: 07/24/2025 [facility] Work Phone: Comment on above: Expected: 07/24/2024 , Expires: 07/24/2025 Start: 07-24-2024 End: 07-24-2024 Patient encounter procedure 07/24/2024 1:00 PM EDT Office Visit [facility] [address] [place] [phone] Jeannie Soni MD [address] [place] [address] Arrived [facility] Comment on above: Arrived Start: 06-13-2024 End: 06-13-2024 ambulatory 06/13/2024 1:20 PM EST Visit [facility] [address] [place] [phone] Yaritza Portillo PA [address] [place] [address] [facility] Start: 05-30-2024 End: 05-30-2024 Patient encounter procedure [facility] Comment on above: Arrived Start: 05-30-2024 End: 05-30-2025 CT Head WO contrast CT head wo IV contrast Imaging High Priority Blurred vision Transient visual loss of both eyes Expected: 05/30/2024, Expires: 05/30/2025 [facility] Work Phone: Comment on above: Expected: 05/30/2024 , Expires: 05/30/2025 Start: 04-19-2024 End: 04-19-2025 US biophysical profile [...] PM EST Routine [facility] [address] [place] [address] Yaritza Portillo PA [address] [place], [facility] Start: 04-04-2024 End: 04-04-2025 CULTURE, GROUP B STREP WITH SUSCEPTIBLITY CULTURE, GROUP B STREP WITH SUSCEPTIBLITY Lab Routine Third trimester Expected: 04/04/2024, Expires: 04/04/2025 [facility] Work Phone: Comment on above: Expected: 04/04/2024 , Expires: 04/04/2025 Start: 04-04-2024 End: 04-04-2024 Patient encounter procedure 04/04/2024 1:30 PM EST Routine [facility] [address] [place] [address] Shaw Rojo DO [address] [place], [place] [id number] Arrived [facility] Comment on above: Arrived Start: 03-26-2024 End: 03-26-2024 Patient encounter procedure 03/26/2024 10:20 AM EST Routine [facility] [address] [place] [phone] Yaritza Portillo, PA [address] [place] [address] [facility] Start: 03-08-2024 End: 03-08-2024 Patient encounter procedure 03/08/2024 11:00 AM EST Routine [facility] [address] [place] [phone] Shaw Rojo DO [address] [place] [address] [facility] Start: 02-23-2024 End: 02-23-2024 Patient encounter procedure 02/23/2024 1:30 PM EDT Routine [facility] [address] [place] [phone] Yaritza Portillo, PA [address] [place], [place] [id number] [facility] Start: 02-08-2024 End: 02-08-2024 Patient encounter procedure 02/08/2024 1:50 PM EDT Routine [facility] [address] [facility] [place] [phone] Yaritza Portillo, PA [address] [place] [address] [facility] Start: 02-07-2024 End: 02-06-2025 [...] mellitus screening Expected: 01/12/2024 (Approximate), Expires: 01/11/2025 [facility] Work Phone: Comment on above: Expected: 01/12/2024 (Approximate), Expires: 01/11/2025 Start: 01-12-2024 End: 01-11-2025 Measurement of glucose 1 hour after glucose challenge for glucose tolerance test Glucose tolerance, 1 hour Lab Routine Diabetes mellitus screening Expected: 01/12/2024 (Approximate), Expires: 01/11/2025 [facility] Comment on above: Expected: 01/12/2024 (Approximate), Expires: 01/11/2025 Start: 01-12-2024 End: 01-12-2024 Patient encounter procedure 01/12/2024 11:50 AM EDT Routine [facility] [address] [place] [phone] Shaw Rojo, DO [address] [place] [address] [facility] Start: 12-25-2023 Influenza vaccination Influenza Vacc ine (#1) [facility] Start: 12-14-2023 End: 02-13-2024 Alpha fetoprotein, maternal Alpha fetoprotein, maternal Lab Routine 20 weeks gestation of Expected: 12/14/2023 (Approximate), Expires: 02/13/2024 [facility] Comment on above: Expected: 12/14/2023 (Approximate), Expires: 02/13/2024 Start: 12-14-2023 End: 12-13-2024 US for US OB ANATOMY SINGLE W US OB CERVICAL LENGTH Imaging Routine Screening, , for anatomic survey Expected: 12/14/2023 (Approximate), Expires: 12/13/2024 [facility] Comment on above: Expected: 12/14/2023 (Approximate), Expires: 12/13/2024 Start: 12-14-2023 End: 12-14-2023 Patient encounter procedure 12/14/2023 11:00 AM EDT Office Visit [facility] [address] [place] [address] Yaritza Portillo PA [address] [place] [address] Arrived [facility] Comment on above: Arrived Bacteria identified in Urine by Culture Urine culture Microbiology Routine Hematuria, unspecified type Ordered: 03/08/2024 [facility] Work Phone: Comment on above: Ordered: 03/08/2024 CHLAMYDIA TRACHOMATI S (GENITO/STI) CHLAMYDIA TRACHOMATIS (GENITO/STI) Lab Routine STD exposure Ordered: 12/14/2023 [facility] Comment on above: Ordered: 12/14/2023 Cytology Cervical or vaginal smear or scraping study Pap Smear Pathology and Cytology Routine 20 weeks gestation of Well woman exam with routine gynecological exam Ordered: 12/14/2023 [facility] Work Phone: Comment on above: Ordered: 12/14/2023 Neisseria gonorrhoea e DNA [Presence] in Unspecified specimen by HERBER with probe detection Neisseria gonorrhea DNA probe, direct Lab Routine STD exposure Ordered: 12/14/2023 [facility] Comment on above: Ordered: 12/14/2023 SURESWAB(R) ADVANCED VAGINITIS PLUS, TMA SURESWAB(R) ADVANCED VAGINITIS PLUS, TMA Pathology and Cytology Routine Vaginal discharge Ordered: 12/14/2023 [facility] Comment on above: Ordered: 12/14/2023 Immunizations Immunization Date Immunization Notes Care Provider Fa cility 03-01-2014 hepatitis A vaccine, pediatric/adolescent dosage, 2 dose schedule Yaritza CAMARILLO Work Phone: [facility] 07-26-2013 hepatitis A vaccine, pediatric/adolescent dosage, 2 dose schedule Yaritza CAMARILLO Work Phone: [facility] 07-26-2013 meningococcal polysaccharide (groups A, C, Y and W-135) diphtheria toxoid conjugate vaccine (MCV4P) Yaritza CAMARILLO Work Phone: [facility] 07-26-2013 tetanus toxoid, redu mary beth diphtheria toxoid, and acellular pertussis vaccine, adsorbed Yaritza CAMARILLO Work Phone: [facility] 07-26-2013 varicella virus vaccine Yaritza CAMARILLO Work Phone: [facility] 05-16-2012 influenza virus vacc ine, whole virus Yaritza CAMARILLO Work Phone: [facility] 05-16-2012 influenza virus vacc ine, unspecified formulation Yaritza CAMARILLO Work Phone: [facility] 02-12-2009 novel influenza-H1N1 -09, preservative-free, injectable Yaritza CAMARILLO Work Phone: [facility] 04-29-2008 influenza virus vacc ine, whole virus Yaritza CAMARILLO Work Phone: [facility] 03-29-2007 influenza, seasonal, injectable Yaritza CAMARILLO Work Phone: [facility] 09-15-2006 diphtheria, tetanus toxoids and acellular pertussis vaccine, 5 pertussis antigens Yaritza CAMARILLO Work Phone: [facility] 09-15-2006 haemophilus influenz ae type b vaccine, HbOC conjugate Yaritza CAMARILLO Work Phone: [facility] 09-15-2006 measles, mumps and r ubella virus vaccine Yaritza CAMARILLO Work Phone: [facility] 09-15-2006 poliovirus vaccine, inactivated Yaritza CAMARILLO Work Phone: [facility] 07-30-2002 diphtheria, tetanus toxoids and acellular pertussis vaccine, unspecified formulation Yaritza CAMARILLO Work Phone: [facility] 07-30-2002 haemophilus influenz ae type b vaccine, conjugate unspecified formulation Yaritza CAMARILLO Work Phone: [facility] 07-30-2002 measles, mumps and r ubella virus vaccine Yaritza CAMARILLO Work Phone: [facility] 07-30-2002 varicella virus vaccine Yaritza CAMARILLO Work Phone: [facility] 2001 diphtheria, tetanus toxoids and acellular pertussis vaccine, unspecified formulation Yaritza CAMARILLO Work Phone: [facility] 2001 haemophilus influenz ae type b vaccine, conjugate unspecified formulation Yaritza CAMARILLO Work Phone: [facility] 2001 hepatitis B vaccine, pediatric or pediatric/adolescent dosage Yaritza CAMARILLO Work Phone: [facility] 2001 poliovirus vaccine, unspecified formulation Yaritza CAMARILLO Work Phone: [facility] 2001 diphtheria, tetanus toxoids and acellular pertussis vaccine, unspecified formulation Yaritza CAMARILLO Work Phone: [facility] 2001 haemophilus influenz ae type b vaccine, conjugate unspecified formulation Yaritza CAMARILLO Work Phone: [facility] 2001 pneumococcal conjuga te vaccine, 7 valent Yaritza CAMARILLO Work Phone: [facility] 2001 poliovirus vaccine, unspecified formulation Yaritza CAMARILLO Work Phone: [facility] 2001 diphtheria, tetanus toxoids and acellular pertussis vaccine, unspecified formulation Yaritza CAMARILLO Work Phone: [facility] 2001 haemophilus influenz ae type b vaccine, conjugate unspecified formulation Yaritza CAMARILLO Work Phone: [facility] 2001 hepatitis B vaccine, pediatric or pediatric/adolescent dosage Yaritza CAMARILLO Work Phone: [facility] 2001 poliovirus vaccine, unspecified formulation Yaritza CAMARILLO Work Phone: [facility] 2001 hepatitis B vaccine, pediatric or pediatric/adolescent dosage Yaritza CAMARILLO Work Phone: [facility] Payers Date Payer Category Payer Medicaid [employer] [place] [employer] [id number] 2022-Present [address] [place] [phone] [id number] 2022 Medicaid (Managed Care) [facility] MEDICAID [id number] 2022 Blue Cross Blue Shield [id number] 2022 Unknown 2022 Unknown [id number] 2022 Unknown [id number] 2001 Unknown [id number] 2.16.840.1.893919.3.579.2. 593 2001 Unknown [id number] 2.16.840.1.549220.3.579.2. 8 2001 Unknown [id number] 2.16.840.1.349380.3.579.2. 8 2001 Unknown [id number] 2.16.840.1.458041.3.579.2. 8 2001 Unknown [id number] 2.16.840.1.771557.3.579.2. 8 2001 Unknown [id number] 2.16.840.1.206971.3.579.2. 8 2001 Unknown [id number] 2.16.840.1.437991.3.579.2. 1259 2001 Unknown [id number] 2.16.840.1.667051.3.579.2. 1259 2001 Unknown [id number] 2.16.840.1.957976.3.579.2. 1258 2001 Unknown [id number] 2.16.840.1.428356.3.579.2. 1258 2001 Unknown [id number] 2.16.840.1.900867.3.579.2. 1258 2001 Unknown [id number] 2.16.840.1.237862.3.579.2. 1258 2001 Unknown [id number] 2.16.840.1.962730.3.579.2. 1258 2001 Unknown [id number] 2.16.840.1.870468.3.579.2. 1258 2001 Unknown [id number] 2.16.840.1.478533.3.579.2. 1258 2001 Unknown [id number] 2.16.840.1.205187.3.579.2. 1258 2001 Unknown [id number] 2.16.840.1.691765.3.579.2. 1258 2001 Unknown [id number] 2.16.840.1.253333.3.579.2. 1258 2001 Unknown [id number] 2.16.840.1.780920.3.579.2. 1258 2001 Unknown [id number] 2.16.840.1.844864.3.579.2. 1258 2001 Unknown [id number] 2.16.840.1.566002.3.579.2. 1258 2001 Unknown [id number] 2.16.840.1.975079.3.579.2. 1258 2001 Unknown [id number] 2.16.840.1.665728.3.579.2. 1286 1959 Unknown [id number] 1959 Unknown [id number] Social History Date Type Detail Facility Start: 04-13-2023 End: 05-30-2024 Tobacco smoking status NHIS Ex-smoker [facility] History of tobacco use Current smoker [facility] History of tobacco use Cigarette Smoker [facility] Start: 04-13-2023 Tobacco use and exposure User of smokeless tobacco [facility] Start: 01-12-2024 End: 05-01-2024 Alcoholic beverage intake Current drinker of alcohol (finding) [facility] Start: 08-30-2022 End: 01-21-2025 History of Social function [facility] Start: 08-30-2022 End: 01-21-2025 Alcohol Use Disorder Identification Test - Consumption [AUDIT-C] [facility] How often to you hav e a drink containing alcohol? Monthly or less [facility] How many standard dr inks containing alcohol do you have on a typical day? 1 or 2 [facility] How often do you hav e 6 or more drinks on 1 occasion? Never [facility] Start: 03-04-2023 Tobacco Comment Vapes nicotine daily [facility] Start: 08-02-2023 Alcohol Comment Alcohol: 1 or 2 drinks on a typical day/monthly or less Caffeine: 1 cup daily [facility] Start: 08-07-2023 [facility] Start: 2001 Sex assigned at Not on file N [facility] Start: 05-30-2024 Tobacco use and exposure Smoke less tobacco non-user [facility] Start: 05-30-2024 End: 01-21-2025 Alcoholic beverage intake Ex-drinker (finding) [facility] re Functional Status Date Assessment Result Facility 01-21-2025 Patient [facility] ionnaire 2 item (PHQ-2) [Reported] [facility] Clinical Notes 01-10-2023 to 01-21-2025 Silva Olmstead NP - 01/21/2025 4:00 PM Jamila Soni MD - 07/24/2024 1:00 PM EDTTelephone Encounter - Darryn Duque - 06/27/2024 3:09 PM ESTTelephone Encounter - Darryn Lowmaribel - 06/27/2024 3:09 PM EST Note Date & Type Note Facility 01-21-2025 History of Presen t illness Narrative Images from the original note were not included. Subjective ?Quick Links Last Note in Specialty Snapshot Edit RFV/CC Edit Screenings Current Meds Patient ID: Brynn Wallace is a 24 y.o. female who presents for Chest Pain (Been having lung pain for about a month, that heat helped with the pain. The pain then traveled to [facility], pt is 8 weeks ). HPI History of Present Illness Presents to the office today with complaints of a burning pain in her chest which has been going on for about a month. She reported she was [...] Wt 250 lb SpO2 99% BMI 42.91 kg/m Physical Exam Vitals reviewed. Constitutional: Appearance: She [...] Assessment & Plan documented in this encounter [facility] 07-24-2024 History of Presen t illness Narrative Images from the original note were not included. Brynn Wallace is a 24 y.o. female presents with chief complaint of Back Pain (Lumbar pain. Epidural was ripped out of her back 04/27/24 then got received a second epidural 30 minutes later. No radiating pain. Ibuprofen 800 isn't helping the pain.) HPI: HPI History of Present Illness The patient presents for evaluation of back pain. She has been experiencing severe back pain since childbirth, which has shown slight improvement over time. The pain is exacerbated by physical activities such as walking, bending, and playing with her child. She reports that the pain is localized in the middle of her lower back, does not radiate, and is associated with a sensation of locking. She does not experience any leg pain, numbness, or tingling. She also reports no bowel or bladder issues. She consulted a lead blender at her 6-week appointment, who suggested that the pain could be due to her body adjusting to the additional weight from and recommended chiropractic treatment. However, this intervention worsened her condition. She has not undergone any imaging studies for her back. She recalls an incident during her delivery where her epidural was dislodged, leading her to question if this could be the cause of her current symptoms. Supplemental Information She also experienced vision loss and severe headaches for a week, three weeks . An MRI scan was performed last week, which yielded normal results. SUBJECTIVE: MEDICATIONS: Current Outpatient Medications Medication Instructions ibuprofen 800 MG tablet I have reviewed and reconciled the history and medication list with the patient today. REVIEW OF SYMPTOMS: Review of Systems OBJECTIVE: Visit Vitals BP 112/66 Pulse 103 Ht 5' 4 Wt 236 lb SpO2 97% BMI 40.51 kg/m OB Status Recent Smoking Status Former BSA 2.2 m Physical Exam Vitals and nursing note reviewed. Musculoskeletal: Lumbar back: Spasms and tenderness present. No swelling, edema, deformity, signs of trauma or lacerations. Normal range of motion. Negative right straight leg raise test and negative left straight leg raise test. No scoliosis. Comments: Pain over midline lumbar L1-L2. Some pain over SI joints bilaterally. FROM. Neg SLR. Neg stork stand. Hips- FROM. ASSESSMENT AND PLAN: Assessment & Plan 1. Back pain. The patient reports persistent back pain since giving , which she describes as being in the middle of her lower back and not radiating elsewhere. 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 She has not experienced any numbness, tingling, or issues with bowel or bladder function. Previous chiropractic treatment exacerbated the pain. Physical examination reveals tenderness in the lower back area without radiation. ATTC also in to evaluate and will give some exercises to work on. Recheck in a few weeks to see if improving with exercises. Assessment/Plan Problem List Items Addressed This Visit None Visit Diagnoses Acute midline low back pain without sciatica - Primary Relevant Orders XR lumbar spine 4+ views w flexion extension documented in this encounter [facility] 06-27-2024 Telephone encount er Note Brynn said Ct was denied . Imaging said Ins may have denied it because she needs an MRI first - they didn't know for sure . Please give her a call , nabil Zeng -[phone] [facility] 06-27-2024 Miscellaneous Notes Formattin g of this note might be different from the original. Brynn said Ct was denied . Imaging said Ins may have denied it because she needs an MRI first - they didn't know for sure . Please give her a call , nabil Zeng -[phone] documented in this encounter [facility] 06-13-2024 History of Presen t illness Narrative Reason for Appointment: Patient ID: Brynn Wallace is a 24 y.o. female who presents for 6 weeks Post Patient presents today for Post Follow Up appointment. MEDICATIONS Current Outpatient Medications Medication Instructions ibuprofen 800 MG tablet ALLERGIES Allergies Allergen Reactions Buspirone Other Reaction(s): Increased anxiety/hallucinations Cholestatin Other Reaction(s): Unknown Lurasidone Other Reaction(s): restlessness Latuda Other Unknown PROBLEMS Active Ambulatory Problems Diagnosis Date Noted [place] 08/30/2022 Bipolar II disorder [place] 08/30/2022 Acute non intractable tension-type headache 12/11/2019 Adjustment disorder with depressed mood ([facility] 12/11/2019 Allergic rhinitis 11/23/2018 Amenorrhea 02/23/2021 Anxiety 03/23/2016 Attention deficit 03/04/2023 Chronic fatigue 03/04/2023 Chronic gastritis without bleeding 03/04/2023 Dysfunction of both eustachian tubes 12/07/2018 Dyspareunia due to medical condition in female 03/04/2023 Gastritis and duodenitis 06/03/2015 Grieving ([facility]) 03/04/2023 Infertility, female 03/04/2023 Menstrual cramps 07/04/2017 Pelvic congestion syndrome 03/04/2023 Slow transit constipation 04/11/2017 Vitamin D deficiency 03/13/2019 Migraine with aura and with status migrainosus, not intractable ([facility]) 05/27/2020 Mixed anxiety and depressive [...] tube, bilateral Adjustment disorder with depressed mood ([facility]) 12/11/2019 Allergic rhinitis unspecified seasonality, unspecified trigger Anxiety Ear pain, referred, bilateral Endometriosis Ovarian cyst PCOS (polycystic ovarian syndrome) Social History Tobacco Use Smoking status: Former Types: Cigarettes Smokeless tobacco: Never Tobacco comments: Vapes nicotine daily Vaping Use Vaping status: Every Day Substances: Nicotine, Flavoring Devices: Disposable Substance Use Topics Alcohol use: Not Currently Comment: Alcohol: 1 or 2 drinks on a typical day/monthly or less Caffeine: 1 cup daily Drug use: Yes Types: Marijuana Comment: ocassional. FAMILY HISTORY Family History Problem Relation Name [...] reviewed. Vitals: Estimated body mass index is 38.62 kg/m as calculated from the following: Height as of 05/30/24: 5' 4 . Weight as of this encounter: 225 lb. BP: No LMP recorded. ASSESSMENT & PLAN ICD-10-CM 1. 6 weeks follow-up Z39.2 Post Follow Up: Patient is doing well Patient presents today for 6 week visit. Patient is s/p Vaginal delivery. Patient states depression but denies suicidal and homicidal ideations. All options were discussed with the patient regarding control and patient desires oral contraception . Follow Up: Patient is to return for annual unless needed otherwise. Documented by MARQUISE Scott on behalf of: MARQUISE Scott documented in this encounter [facility] 05-30-2024 History of Presen t illness Narrative Images from the original note were not included. Brynn Wallace is a 24 y.o. female presents with chief complaint of Back Pain HPI: HPI History of Present Illness The patient presents for evaluation of back pain. She reports experiencing back pain, which she attributes to an epidural administered during childbirth approximately 1 month ago. Initially, the pain was mild, but over the past 5 weeks, it has escalated to the point where she struggles to stand due to severe pain and leg instability. The pain is localized above the sacrum and radiates custodial up her back. She reports no history of falls, numbness, tingling, or leg swelling. This was her first experience with an epidural, and she required a second one after the first was dislodged. She has not experienced any loss of bowel or bladder control, although she mentions a recent stomach bug that caused involuntary gas passage for the first 2 days. Having episodes of diarrhea up to 5-6 times a day. Her 6-week follow-up with her creative designer is scheduled in 2 weeks. She also reports no ankle swelling. On 05/25, she had an episode of transient blurred vision. She could not see her boyfriend a few few away nor make out anything on her phone. She experienced a headache during this time as well, symptoms lasted for 2 hours before resolving. SUBJECTIVE: MEDICATIONS: Current Outpatient Medications Medication Instructions ibuprofen 800 MG tablet ondansetron ODT (ZOFRAN-ODT) 4 mg, Oral, Every 4 hours PRN REVIEW OF SYMPTOMS: Review of Systems OBJECTIVE: Visit Vitals BP 124/80 (BP Location: Left arm, Patient Position: Sitting, BP Cuff Size: Large adult) Pulse (!) 115 Ht 5' 4 Wt 223 lb SpO2 98% BMI 38.28 kg/m OB Status Recent Smoking Status Former BSA 2.14 m Physical Exam Vitals reviewed. Constitutional: Appearance: She is obese. HENT: Head: Normocephalic and atraumatic. Nose: Nose normal. Mouth/Throat: Mouth: Mucous membranes are moist. Eyes: Extraocular Movements: Extraocular movements intact. Pupils: Pupils are equal, round, and reactive to light. Cardiovascular: Rate and Rhythm: Normal rate and regular rhythm. Pulses: Normal pulses. Heart sounds: Normal heart sounds. Pulmonary: Effort: Pulmonary effort is normal. Breath sounds: Normal breath sounds. Abdominal: General: Bowel sounds are normal. Palpations: Abdomen is soft. Tenderness: There is no abdominal tenderness. Musculoskeletal: Cervical back: Normal range of motion and neck supple. Right lower leg: No edema. Left lower leg: No edema. Comments: Tenderness to lumbar paraspinals, no spasming noted, - SLR B/L. Skin: General: Skin is warm and dry. Capillary Refill: Capillary refill takes less than 2 seconds. Findings: No rash. Neurological: General: No focal deficit present. Mental Status: She is alert and oriented to person, place, and time. Comments: CN 2-12 grossly intact, upper and lower extremities ASSESSMENT AND PLAN: Assessment/Plan Diagnoses and all orders for this visit: Transient visual loss of both eyes - CT head wo IV contrast; Future -obtain imaging for further evaluation. Acute left-sided low back pain with left-sided sciatica -NSAIDs OTC prn. Ice intermittently, encourage stretching. Viral gastroenteritis -Reassurance given that this is most likely viral and should continue to gradually improve. Increase water intake, sipping clear fluids frequently, get plenty of rest. Keep to a bland diet, BRAT diet reviewed, advance as tolerated. Encouraged Probiotic. Wash hands often, and avoid sharing food/drinks. Instructed to notify office if symptoms persist and will obtain stool cultures to r/o bacterial cause at that time. documented in this encounter [facility] 05-25-2024 Telephone encount er Note Hi, my name is Morgan Wallace. I was just calling to speak to someone. I was having some issues yesterday. I for like 2 h my vision was super blurry and I was just having really, really bad back pains, like just basically like fireworks from the bottom of my spine and it is gotten a little bit better. My vision is fine, but my back is still really hurting. I am exactly 1 month . Um, so I was just calling just to talk to somebody about it. I am going to give me a call back at [phone]. Thanks. I called pt back and asked if she had any UTI symptoms? She said no. I told her that it could just be body going back to normal after delivering. I also asked her if she had an epidural and she answered yes. I told her that it could be from that. She asked if it was from the epidural if it would like forever and I told her that I could ask Dr. Rojo about that and then let her know. PVU I did tell pt to try tylenol and ibuprofen and if the pain got bad to go get evaluated at the ER. PVU [facility] 05-25-2024 Miscellaneous Notes Formattin g of this note might be different from the original. Hi, my name is Morgan Wallace. I was just calling to speak to someone. I was having some issues yesterday. I for like 2 h my vision was super blurry and I was just having really, really bad back pains, like just basically like fireworks from the bottom of my spine and it is gotten a little bit better. My vision is fine, but my back is still really hurting. I am exactly 1 month . Um, so I was just calling just to talk to somebody about it. I am going to give me a call back at [phone]. Thanks. I called pt back and asked if she had any UTI symptoms? She said no. I told her that it could just be body going back to normal after delivering. I also asked her if she had an epidural and she answered yes. I told her that it could be from that. She asked if it was from the epidural if it would like forever and I told her that I could ask Dr. Rojo about that and then let her know. PVU I did tell pt to try tylenol and ibuprofen and if the pain got bad to go get evaluated at the ER. PVU documented in this encounter [facility] 04-19-2024 History of Presen t illness Narrative [...] deficit hyperactivity disorder [place]ADHD) [place] 08/30/2022 Bipolar II disorder [place] 08/30/2022 Acute non intractable tension-type headache 12/11/2019 Adjustment disorder with depressed mood ([facility] 12/11/2019 Allergic rhinitis 11/23/2018 Amenorrhea 02/23/2021 Anxiety 03/23/2016 Attention deficit 03/04/2023 Chronic fatigue 03/04/2023 Chronic gastritis without bleeding 03/04/2023 Dysfunction of both eustachian tubes 12/07/2018 Dyspareunia due to medical condition in female 03/04/2023 Gastritis and duodenitis 06/03/2015 Grieving ([facility]) 03/04/2023 Infertility, female 03/04/2023 Menstrual cramps 07/04/2017 Pelvic congestion syndrome 03/04/2023 Slow transit constipation 04/11/2017 Vitamin D deficiency 03/13/2019 Migraine with aura and with status migrainosus, not intractable ([facility]) 05/27/2020 Mixed anxiety and depressive [...] tube, bilateral Adjustment disorder with depressed mood ([facility]) 12/11/2019 Allergic rhinitis unspecified seasonality, [...] nursing note reviewed. Exam conducted with a cover inspector present. Vitals: Estimated body mass index is [...] Shaw Rojo DO documented in this encounter [facility] 04-11-2024 History of Presen t [...] Date Noted Attention deficit hyperactivity disorder (ADHD) ([facility]) 08/30/2022 Bipolar II disorder ([facility]) 08/30/2022 Acute non intractable tension-type headache 12/11/2019 Adjustment disorder with depressed mood ([facility]) 12/11/2019 Allergic rhinitis 11/23/2018 Amenorrhea 02/23/2021 Anxiety 03/23/2016 Attention deficit 03/04/2023 Chronic fatigue 03/04/2023 Chronic gastritis without bleeding 03/04/2023 Dysfunction of both eustachian tubes 12/07/2018 Dyspareunia due to medical condition in female 03/04/2023 Gastritis and duodenitis 06/03/2015 Grieving ([facility] 03/04/2023 Infertility, female 03/04/2023 Menstrual cramps 07/04/2017 Pelvic congestion syndrome 03/04/2023 Slow transit constipation 04/11/2017 Vitamin D deficiency 03/13/2019 Migraine with aura and with status migrainosus, not intractable ([facility] 05/27/2020 Mixed anxiety and depressive disorder 12/25/2019 [...] disorder with depressed mood ([facility] 12/11/2019 Allergic rhinitis unspecified seasonality, unspecified trigger [...] for nst and bpp today at the [facility] Orders Placed This Encounter Procedures US OB SCAN FOR GROWTH POCT urinalysis dipstick manually resulted Follow Up: Patient is to return to office in 1 week for routine OB appointment. Documented by MARQUISE Scott on behalf of: MARQUISE Scott documented in this encounter [facility] 04-04-2024 History of Presen t [...] deficit hyperactivity disorder (ADHD) ([facility] 08/30/2022 Bipolar II disorder [place] 08/30/2022 Acute non intractable tension-type headache 12/11/2019 Adjustment disorder with depressed mood ([facility] 12/11/2019 Allergic rhinitis 11/23/2018 Amenorrhea 02/23/2021 Anxiety 03/23/2016 Attention deficit 03/04/2023 Chronic fatigue 03/04/2023 Chronic gastritis without bleeding 03/04/2023 Dysfunction of both eustachian tubes 12/07/2018 Dyspareunia due to medical condition in female 03/04/2023 Gastritis and duodenitis 06/03/2015 Grieving ([facility] 03/04/2023 Infertility, female 03/04/2023 Menstrual cramps 07/04/2017 Pelvic congestion syndrome 03/04/2023 Slow transit constipation 04/11/2017 Vitamin D deficiency 03/13/2019 Migraine with aura and with status migrainosus, not intractable ([facility] 05/27/2020 Mixed anxiety and depressive disorder 12/25/2019 [...] disorder with depressed mood ([facility] 12/11/2019 Allergic rhinitis unspecified seasonality, unspecified trigger [...] nursing note reviewed. Exam conducted with a cover inspector present. Vitals: Estimated body mass index is [...] was performed and patient is 0cm dilated. Ruby and otoniel faxed to pharmacy. Orders Placed This Encounter Procedures CULTURE, GROUP B STREP WITH SUSCEPTIBLITY POCT urinalysis dipstick manually resulted Follow Up: Patient is to return to office in 1 week for routine OB appointment Documented by Tracey Mark LPN on behalf of: Shaw Rojo DO documented in this encounter [facility] 03-26-2024 History of Presen t [...] Date Noted Attention deficit hyperactivity disorder (ADHD) ([facility]) 08/30/2022 Bipolar II disorder ([facility]) 08/30/2022 Acute non intractable tension-type headache 12/11/2019 Adjustment disorder with depressed mood ([facility]) 12/11/2019 Allergic rhinitis 11/23/2018 Amenorrhea 02/23/2021 Anxiety 03/23/2016 Attention deficit 03/04/2023 Chronic fatigue 03/04/2023 Chronic gastritis without bleeding 03/04/2023 Dysfunction of both eustachian tubes 12/07/2018 Dyspareunia due to medical condition in female 03/04/2023 Gastritis and duodenitis 06/03/2015 Grieving ([facility] 03/04/2023 Infertility, female 03/04/2023 Menstrual cramps 07/04/2017 Pelvic congestion syndrome 03/04/2023 Slow transit constipation 04/11/2017 Vitamin D deficiency 03/13/2019 Migraine with aura and with status migrainosus, not intractable ([facility] 05/27/2020 Mixed anxiety and depressive disorder 12/25/2019 [...] disorder with depressed mood ([facility] 12/11/2019 Allergic rhinitis unspecified seasonality, unspecified trigger [...] of: MARQUISE Scott documented in this encounter [facility] 03-08-2024 History of Presen t [...] deficit hyperactivity disorder (ADHD) ([facility] 08/30/2022 Bipolar II disorder ([facility]) 08/30/2022 Acute non intractable tension-type headache 12/11/2019 Adjustment disorder with depressed mood ([facility] 12/11/2019 Allergic rhinitis 11/23/2018 Amenorrhea 02/23/2021 Anxiety 03/23/2016 Attention deficit 03/04/2023 Chronic fatigue 03/04/2023 Chronic gastritis without bleeding 03/04/2023 Dysfunction of both eustachian tubes 12/07/2018 Dyspareunia due to medical condition in female 03/04/2023 Gastritis and duodenitis 06/03/2015 Grieving ([facility]) 03/04/2023 Infertility, female 03/04/2023 Menstrual cramps 07/04/2017 Pelvic congestion syndrome 03/04/2023 Slow transit constipation 04/11/2017 Vitamin D deficiency 03/13/2019 Migraine with aura and with status migrainosus, not intractable ([facility] 05/27/2020 Mixed anxiety and depressive disorder 12/25/2019 [...] disorder with depressed mood ([facility] 12/11/2019 Allergic rhinitis unspecified seasonality, unspecified trigger [...] nursing note reviewed. Exam conducted with a cover inspector present. Vitals: Estimated body mass index is [...] like for order to be sent to [facility] so she did not have to drive back to [place]. Informed patient that order would be sent to [facility] Scheduling for her to go give urine sample. --ss Documented by Sera Parsons LPN on behalf of: Shaw Rojo DO documented in this encounter [facility] 02-23-2024 History of Presen t illness Narrative [...] deficit hyperactivity disorder (ADHD) [place] 08/30/2022 Bipolar II disorder ([facility] 08/30/2022 Acute non intractable tension-type headache 12/11/2019 Adjustment disorder with depressed mood ([facility] 12/11/2019 Allergic rhinitis 11/23/2018 Amenorrhea 02/23/2021 Anxiety 03/23/2016 Attention deficit 03/04/2023 Chronic fatigue 03/04/2023 Chronic gastritis without bleeding 03/04/2023 Dysfunction of both eustachian tubes 12/07/2018 Dyspareunia due to medical condition in female 03/04/2023 Gastritis and duodenitis 06/03/2015 Grieving ([facility]) 03/04/2023 Infertility, female 03/04/2023 Menstrual cramps 07/04/2017 Pelvic congestion syndrome 03/04/2023 Slow transit constipation 04/11/2017 Vitamin D deficiency 03/13/2019 Migraine with aura and with status migrainosus, not intractable ([facility]) 05/27/2020 Mixed anxiety and depressive [...] tube, bilateral Adjustment disorder with depressed mood ([facility]) 12/11/2019 Allergic rhinitis unspecified seasonality, [...] week for routine OB appointment. Documented by Lnida Lala MA on behalf of: MARQUISE Scott documented in this encounter [facility] 02-07-2024 History of Presen t [...] Date Noted Attention deficit hyperactivity disorder (ADHD) ([facility] 08/30/2022 Bipolar II disorder ([facility]) 08/30/2022 Acute non intractable tension-type headache 12/11/2019 Adjustment disorder with depressed mood ([facility] 12/11/2019 Allergic rhinitis 11/23/2018 Amenorrhea 02/23/2021 Anxiety 03/23/2016 Attention deficit 03/04/2023 Chronic fatigue 03/04/2023 Chronic gastritis without bleeding 03/04/2023 Dysfunction of both eustachian tubes 12/07/2018 Dyspareunia due to medical condition in female 03/04/2023 Gastritis and duodenitis 06/03/2015 Grieving ([facility]) 03/04/2023 Infertility, female 03/04/2023 Menstrual cramps 07/04/2017 Pelvic congestion syndrome 03/04/2023 Slow transit constipation 04/11/2017 Vitamin D deficiency 03/13/2019 Migraine with aura and with status migrainosus, not intractable ([facility]) 05/27/2020 Mixed anxiety and depressive [...] tube, bilateral Adjustment disorder with depressed mood ([facility]) 12/11/2019 Allergic rhinitis unspecified seasonality, [...] nursing note reviewed. Exam conducted with a cover inspector present. Vitals: Estimated body mass index is [...] of: MARQUISE Scott documented in this encounter [facility] 01-12-2024 History of Presen t [...] deficit hyperactivity disorder (ADHD) [place] 08/30/2022 Bipolar II disorder ([facility] 08/30/2022 Acute non intractable tension-type headache 12/11/2019 Adjustment disorder with depressed mood ([facility] 12/11/2019 Allergic rhinitis 11/23/2018 Amenorrhea 02/23/2021 Anxiety 03/23/2016 Attention deficit 03/04/2023 Chronic fatigue 03/04/2023 Chronic gastritis without bleeding 03/04/2023 Dysfunction of both eustachian tubes 12/07/2018 Dyspareunia due to medical condition in female 03/04/2023 Gastritis and duodenitis 06/03/2015 Grieving ([facility] 03/04/2023 Infertility, female 03/04/2023 Menstrual cramps 07/04/2017 Pelvic congestion syndrome 03/04/2023 Slow transit constipation 04/11/2017 Vitamin D deficiency 03/13/2019 Migraine with aura and with status migrainosus, not intractable ([facility] 05/27/2020 Mixed anxiety and depressive disorder 12/25/2019 [...] disorder with depressed mood ([facility] 12/11/2019 Allergic rhinitis unspecified seasonality, unspecified trigger [...] nursing note reviewed. Exam conducted with a cover inspector present. Vitals: Estimated body mass index is [...] Shaw Rojo DO documented in this encounter [facility] 12-14-2023 History of Presen t [...] deficit hyperactivity disorder (ADHD) ([facility] 08/30/2022 Bipolar II disorder ([facility] 08/30/2022 Acute non intractable tension-type headache 12/11/2019 Adjustment disorder with depressed mood ([facility] 12/11/2019 Allergic rhinitis 11/23/2018 Amenorrhea 02/23/2021 Anxiety 03/23/2016 Attention deficit 03/04/2023 Chronic fatigue 03/04/2023 Chronic gastritis without bleeding 03/04/2023 Dysfunction of both eustachian tubes 12/07/2018 Dyspareunia due to medical condition in female 03/04/2023 Gastritis and duodenitis 06/03/2015 Grieving ([facility]) 03/04/2023 Infertility, female 03/04/2023 Menstrual cramps 07/04/2017 Pelvic congestion syndrome 03/04/2023 Slow transit constipation 04/11/2017 Vitamin D deficiency 03/13/2019 Migraine with aura and with status migrainosus, not intractable ([facility]) 05/27/2020 Mixed anxiety and depressive [...] tube, bilateral Adjustment disorder with depressed mood ([facility]) 12/11/2019 Allergic rhinitis unspecified seasonality, [...] nursing note reviewed. Exam conducted with a cover inspector present. Vitals: Estimated body mass index is [...] of: MARQUISE Scott documented in this encounter [facility] 01-10-2023 Note Patient Education Ma [...] these instructions at home: Medicines ? Take xuqx-yva-mpsxkql and prescription medicines only as told by [...] and water are not available, use hand fur mixer. Contact a health care provider if: ? [...] can cause a sore throat. ? Take fcjb-pbx-nriemrx medicines only as told by your health [...] provider. Document Revised: 07/08/2021 Document Reviewed: 07/08/2021 BRAIN Patient Education ? 2022 [email or web address]. Viral Illness, Adult Viruses are tiny germs [...] person who is (more content not included)... [facility] Evaluation note Diagnosis Second trimester state, [...] [facility] Diagnosis Blurred vision- Primary Other specified visual disturbances Transient visual loss of both eyes Acute left-sided low back pain with left-sided sciatica Viral gastroenteritis Intestinal infection due to other organism, NEC [facility] Diagnosis Uses control- Primary 6 weeks follow-up [facility] Diagnosis Acute midline low back pain without sciatica- Primary [facility] Diagnosis Gastroesophageal reflux disease without esophagitis- Primary Esophageal reflux Missed menses Positive urine test ([facility]) documented in this encounter [facility] Summary [...] DATE CREATED AUTHOR AUTHOR'S ORGANIZ ATION 06/23/2022 [facility] dical Specialist DATE CREATED AUTHOR AUTHOR'S ORGANIZ ATION 10/13/2023 [facility] DATE CREATED AUTHOR AUTHOR'S ORGANIZ ATION 07/25/2024 [facility] d[facility] Specialists EPIC DATE CREATED AUTHOR AUTHOR'S ORGANIZ ATION 07/30/2024 [facility] Care Teams (unrecognized sec tion and content) Iron Caster Relationship Specialty Start Date End Date Jeannie Soni MD [address] [place] [address] PCP - General Family Medicine 09/21/22 Sarah Nelson NP [address] [place] [address] Nurse Practitioner Family Medicine 09/21/22 Iron Caster Relationship Specialty Start Date End Date Jeannie Soni MD [address] [place] [address] PCP - General Family Medicine 09/21/22 Sarah Nelson NP [address] [place] [address] Nurse Practitioner Family Medicine 09/21/22 Iron Caster Relationship Specialty Start Date End Date Jeannie Soni MD [address] [facility] [place] [address] PCP - General Family Medicine 09/21/22 Sarah Nelson NP [address] [place] [address] Nurse Practitioner Family Medicine 09/21/22 Iron Caster Relationship Specialty Start Date End Date Jeannie Soni MD [address] [place] [address] PCP - General Family Medicine 09/21/22 Anila Schneider, SUPERVISOR EDGING-SECURITY OPERATIONS MANAGER [address] [address] PCP - [employer] 08/23/22 Sarah Nelson NP [address] [place] [address] Nurse Practitioner Family Medicine 09/21/22 Iron Caster Relationship Specialty Start Date End Date Jeannie Soni MD [address] [place] [address] PCP - General Family Medicine 09/21/22 Anila Schneider, SUPERVISOR EDGING-SECURITY OPERATIONS MANAGER [address] [address] PCP - [facility] [employer] 08/23/22 Sarah Nelson NP [address] [place] [address] Nurse Practitioner Family Medicine 09/21/22 Iron Caster Relationship Specialty Start Date End Date Jeannie Soni MD [address] [place] [address] PCP - General Family Medicine 09/21/22 Anila Schneider, SUPERVISOR EDGING-SECURITY OPERATIONS MANAGER [address] [address] PCP - [employer] 08/23/22 Sarah Nelson NP [address] [place] [address] Nurse Practitioner Family Medicine 09/21/22 Iron Caster Relationship Specialty Start Date End Date Jeannie Soni MD [facility] [place] [address] PCP - General Family Medicine 09/21/22 Anila Schneider, SUPERVISOR EDGING-SECURITY OPERATIONS MANAGER [address] [address] PCP - [facility] [employer] 08/23/22 Sarah Nelson NP [address] [place] [address] Nurse Practitioner Family Medicine 09/21/22 Iron Caster Relationship Specialty Start Date End Date Jeannie Soni MD [address] [place] [address] PCP - General Family Medicine 09/21/22 Anila Schneider, SUPERVISOR EDGING-SECURITY OPERATIONS MANAGER [address] [address] PCP - [facility] [employer] 08/23/22 Sarah Nelson NP [address] [place] [address] Nurse Practitioner Family Medicine 09/21/22 Iron Caster Relationship Specialty Start Date End Date Jeannie Soni MD [address] [place] [address] PCP - General Family Medicine 09/21/22 Anila Schneider, SUPERVISOR EDGING-SECURITY OPERATIONS MANAGER [address] [address] PCP - [facility] [employer] 08/23/22 Sarah Nelson, SUSTAINABILITY COORDINATOR [address] [place] [address] Nurse Practitioner Family Medicine 09/21/22 Iron Caster Relationship Specialty Start Date End Date Jeannie Soni MD [address] [place] [address] PCP - General Family Medicine 09/21/22 Anila Schneider SUPERVISOR EDGING-SECURITY OPERATIONS MANAGER [address] [address] PCP - [facility] [employer] 08/23/22 Sarah Nelson SUSTAINABILITY COORDINATOR [address] [place] [address] Nurse Practitioner Family Medicine 09/21/22 Iron Caster Relationship Specialty Start Date End Date Jeannie Soni MD [address] [place] [address] PCP - General Family Medicine 09/21/22 Anila Schneider SUPERVISOR EDGING-SECURITY OPERATIONS MANAGER [address] [facility] [address] [place] [address] PCP - [employer] 08/23/22 Sarah Nelson, SUSTAINABILITY COORDINATOR [address] [facility] [place] [address] Nurse Practitioner Family Medicine 09/21/22 Iron Caster Relationship Specialty Start Date End Date Jeannie Soni MD [address] [place] [address] PCP - General Family Medicine 09/21/22 Anila Schneider, SUPERVISOR EDGING-SECURITY OPERATIONS MANAGER 112 [facility] [address] [place] [address] PCP - [employer] 08/23/22 Sarah Nelson, SUSTAINABILITY COORDINATOR [address] [place] [address] Nurse Practitioner Family Medicine 09/21/22 Iron Caster Relationship Specialty Start Date End Date Jeannie Soni MD [address] [place] [address] PCP - General Family Medicine 09/21/22 Anila Schneider, SUPERVISOR EDGING-SECURITY OPERATIONS MANAGER [address] [facility] [address] [place] [address] PCP - [employer] 08/23/22 Sarah Nelson, SUSTAINABILITY COORDINATOR [address] [place] [address] Nurse Practitioner Family Medicine 09/21/22 Iron Caster Relationship Specialty Start Date End Date Jeannie Soni MD [address] [place] [address] PCP - General Family Medicine 09/21/22 Anila Schneider, SUPERVISOR [facility] 112 [facility] [address] [place] [address] PCP - [employer] 08/23/22 Sarah Nelson, SUSTAINABILITY COORDINATOR [address] [place] [address] Nurse Practitioner Family Medicine 09/21/22 Iron Caster Relationship Specialty Start Date End Date Jeannie Soni MD [address] [place] [address] PCP - General Family Medicine 09/21/22 Anila Schneider, SUPERVISOR EDGING-SECURITY OPERATIONS MANAGER [address] [address] PCP - [employer] 08/23/22 Sarah Nelson SUSTAINABILITY COORDINATOR [address] [place] [address] Nurse Practitioner Family Medicine 09/21/22 Iron Caster Relationship Specialty Start Date End Date Jeannie Soni MD [address] [place] [address] PCP - General Family Medicine 09/21/22 Anila Schneider, SUPERVISOR EDGING-SECURITY OPERATIONS MANAGER [address] [address] PCP - [employer] 08/23/22 Sarah Nelson NP [address] [place] [address] Nurse Practitioner Family Medicine 09/21/22 Iron Caster Relationship Specialty Start Date End Date Jeannie Soni MD [address] [place] [address] PCP - General Family Medicine 09/21/22 Sarah Nelson NP [address] [place] [address] Nurse Practitioner Family Medicine 09/21/22 Iron Caster Relationship Specialty Start Date End Date Jeannie Soni MD [address] [place] [address] PCP - General Family Medicine 09/21/22 Sarah Nelson NP [address] [place] [address] Nurse Practitioner Family Medicine 09/21/22 Iron Caster Relationship Specialty Start Date End Date Jeannie Soni MD [address] [place] [address] PCP - General Family Medicine 09/21/22 Anila Schneider, SUPERVISOR EDGING-SECURITY OPERATIONS MANAGER [address] [place] [address] PCP - [facility] 08/23/22 Sarah Nelson NP [address] [place] [address] Nurse Practitioner Family Medicine 09/21/22 Iron Caster Relationship Specialty Start Date End Date Jeannie Soni MD [address] [place] [address] PCP - General Family Medicine 09/21/22 Sarah Nelson NP [address] [place] [address] Nurse Practitioner Family Medicine 09/21/22 Iron Caster Relationship Specialty Start Date End Date Jeannie Soni MD [address] [place] [address] PCP - General Family Medicine 09/21/22 Sarah Nelson SUSTAINABILITY COORDINATOR [address] [place] [address] Nurse Practitioner Family Medicine 09/21/22 Iron Caster Relationship Specialty Start Date End Date Jeannie Soni MD [address] [place] [address] PCP - General Family Medicine 09/21/22 Sarah Nelson, SUSTAINABILITY COORDINATOR [address] [place] [address] Nurse Practitioner Family Medicine 09/21/22 Iron Caster Relationship Specialty Start Date End Date Jeannie Soni MD [address] [place] [address] PCP - General Family Medicine 09/21/22 Jeannie Soni MD [address] [place] [address] [facility] 08/[facility]/24 Sarah Nelson SUSTAINABILITY COORDINATOR [address] [place] [address] Nurse Practitioner Family Medicine 09/21/22 Iron Caster Relationship Specialty Start Date End Date Jeannie Soni MD [address] [place] [address] PCP - General Family Medicine 09/21/22 Jeannie Soni MD [address] [place] [address] [facility] 08/23/24 Sarah Nelson NP [address] [place] [address] Nurse Practitioner Family Medicine 09/21/22 Reason for Visit (unrecogniz ed section and content) Reason Comments Routine Visit Reason Comments [facility] Visit Reason Comments Routine Visit [facility] Visit STI Screening Reason Comments Back Pain Reason Comments 6 weeks Post Reason Comments Back Pain Lumbar pain. Epidyina l was ripped out of her back 04/27/24 then got received a second epidural 30 minutes later. No radiating pain. Ibuprofen 800 isn't helping the pain. Reason Comments Chest Pain Been having lung kenn n for about a month, that heat helped with the pain. The pain then traveled to [facility], pt is 8 weeks FOR RECORDS PERTAINING TO PATIENTS WHO ARE [...] BE BASED ON THE PRIMARY CLINICAL RECORDS. [facility]. provides no warranty or guarantee of the accuracy or completeness of information in this document.
== END 2025-01-25 09:32 | disposition home or self-care (01) ==
LOC: US 09:31
PROVIDERS: PCP Family Medicine; Visit Provider Obstetrics & Gynecology
DX: Z32.01 Encounter for pregnancy test, result positive (principal); Z3A.08 8 weeks gestation of pregnancy; N92.6 Irregular menstruation, unspecified
CPT/HCPCS: 76817

== ENCOUNTER 2025-02-27 10:10 | Outpatient (OUT) | payer BC, OTHER, SELFPAY ==
--- OUTSIDE RECORDS SUMMARY | 2025-02-27 10:15 | XMS_ITS | Encounter Summary ---
Author Organization [facility] Address [address] [place] [address] Care Team Providers Care Linoleum Layer Apprentice Name Role Phone Jeannie Reynolds MD Primary Care Provider [phone] Sarah Sykes BUILDING PRINCIPAL Unavailable [phone] Anila Schneider DRY CLEANING MACHINE OPERATOR HELPER-PHOTOGRAPHY MANAGER Unavailable Jeannie Reynolds MD Unavailable [phone] Encounter Details DateTypeDepartmentCare Team (Latest Contact Info)Llxnvmcwvnz33/21/2024Clinisync Result Encounter [facility] Unsolicited Provider, Generic External Data Social History Tobacco UseTypesPacks/DayYears UsedDateSmoking Tobacco: FormerCigarettes Smokeless Tobacco: Current Comments:Vapes nicotine jaylene y Alcohol UseStandard Drinks/WeekCommentsYes0 (1 standard drink = 0.6 oz pure alcohol)Alcohol: 1 or 2 drinks on a typical day/monthly or less Caffeine: 1 cup dailyAUDIT-CAnswerDate RecordedQ1: How often do you have a drink containing alcohol?Monthly or less08/30/2022Q2: How many drinks containing alcohol do you have on a typical day when you are drinking?1 or Q3: How often do you have six or more drinks on one occasion?Never08/30/2022HQ-2AnswerDate Recorded Patient Health Questionnaire-2 [id number] and Gender InformationValueDate RecordedSex Assigned at BirthNot on fileLegal SexFemale 07/07/2022 6:48 PM EDTGender IdentityNot on fileSexual OrientationNot on file OccupationIndustryJob 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Not on fileNot on fileNot on filedocumented as of this encounter Functional Status * Over the past 2 weeks, how often have you been bothered by any of the following problems?QuestionAnswerDate of AssessmentAuthorLittle interest or pleasure in doing thingsNot at all01/21/2025 4:09 PM Trudi Combs MA Feeling down, depressed, or hopelessNot at all01/21/2025 4:09 PM Trudi Combs MAPatient Health Questionnaire-2 [id number] 4:09 PM Trudi Combs MA documented as of this encounter Plan of Treatment DateTypeDepartmentCare Team (Latest Contact Info)Vyyxmdynwjb71/05/2025 10:50 AM ESTRoutine [facility] [address] [address] Shaw Rojo, [address] [facility] [facility] [address] [place] [address] documented as of this encounter Procedures Procedure NamePriorityDate/TimeAssociated DiagnosisCommentsUS OB GROWTH 04/14/2024 8:22 AM EST documented in this encounter Results * US OB GROWTH (04/14/2024 8:22 AM EST)Anatomical RegionLateralityModalityOther Specimen (Source)Anatomical Location / LateralityCollection Method / Volume Collection TimeReceived Time04/14/2024 8:22 AM EST Narrative 04/14/2024 8:[address] [facility] ?[address] ? [place] [address] ? Ultrasound Report ? Signed ? Patient: SCOTT GONZALEZNDRA Orta ?MR#: [id number] ?? : 2000 ?Acct:[id number] ?? Age/Sex: 23 / F ?ADM Date: 04/13/24 ?? Loc: US ? Attending Dr: Yaritza Portillo ? Ordering Physician: Yaritza Portillo ?? Date of Service: 04/13/24 ?? Procedure(s): US OB growth ?? Accession Number(s): [id number] ? cc: Yaritza Portillo; JEANNA PASCUAL ? [facility] ? [address] ? [place] [address] ? Patient Name: ?? BRYNN GONZALEZ ? MRN: [facility]:[id number] ? date: 2000 ?Sex: F ?? Assigned Patient Location: US ?? Current Patient Location: ? Accession/Order Number: [id number] ?? Exam Date: 04/13/2024 ??19:00 ?Report Date: 04/14/2024 ??08:22 ? At the request of: ?? YARITZA ??LINDSEY ? Procedure: ??US OB growth ? EXAMINATION: US OB growth ? HISTORY: EXCESSIVE GROWTH AFFECTING O36.63X0 ? COMPARISON: Ultrasound OB growth 02/23/2024 ? FINDINGS: ? Heart Rate: 121.62 bpm ?? Amniotic Fluid Volume: 10.0 cm; normal range. ?? Number: 1 ?? Position: CEPHALIC ? BIOMETRY: ?? BPD: 8.86 cm; 35 weeks 6 days; 20.60 % ?? HC: 32.65 cm; 37 weeks 0 days; 15 % ?? AC: 34.18 cm; 38 weeks 1 day; 76.10 % ?? FL: 7.08 cm; 36 weeks 2 days; 17.30 % ?? EFW: 3163.24 g; 48.60 % ?? FL/AC: 20.70 ?? FL/BPD: 79.81 ?? HC/AC: 0.96 ? GESTATIONAL AGE: ?? Age by EDC: 37 weeks 5 days ?? JAYE by EDC: 2024-04-29 ?? Age by US: 36 weeks 6 days ?? JAYE by US: 2024-05-05 ? US/US OB growth ?? IMPRESSION: ? 1. Single live intrauterine with growth detailed above. ?? 2. Possible nuchal cord. Consider follow-up. ? Electronically authenticated by: EDI ??KEI ?? Date: 04/14/2024 ??08:22 ? Dictated By: ?Edi Reyes M.D. ? Signed By: ?04/14/24 08 ? DD/ 08 ? TD/TT: ? Engineering Equipment Operator: Procedure Note Radiology, Radiologist, MD - 04/14/[address] [address] Ultrasound Report Signed Patient: BRYNN GONZALEZ [facility]#: [id number] : 2000Acct:[id number] Age/Sex: 23 / FADM Date: 04/13/24 Loc: US Attending Dr: Yaritza Portillo Ordering Physician: Yaritza Portillo Date of Service: 04/13/24 Procedure(s): US OB growth Accession Number(s): [id number] cc: Yaritza Portillo; JEANNA PASCUAL [place] [address] Patient Name: BRYNN GONZALEZ MRN: [id number] date: 2000 Sex: F Assigned Patient Location: [place] Current Patient Location: Accession/Order Number: [id number] Exam Date: 04/13/2024 19:00 Report Date: 04/14/2024 [...] nuchal cord. Consider follow-up. Electronically authenticated by: DEI REYES Date: 04/14/2024 08:22 Dictated By: Edi Reyes M.D. Signed By:04/14/24824 DD/ 1 TD/TT: Engineering Equipment Operator: Authorizing ProviderResult TypeResult StatusGeneric External Data Provider CLINISYNC IMAGINGFinal Result documented in this encounter Visit Diagnoses Not on filedocumented in this encounter Additional Health Concerns AssessmentNoted TimePHQ-9 Depression Total Score: 14105/04/2022 10:43 AM EST documented as of this encounter Care Teams Team MemberRelationshipSpecialtyStart DateEnd Date Jeannie Reynolds MD [address] [place] [address] [facility] - [facility]09/21/22 Anila Schneider APRN-PHOTOGRAPHY MANAGER [address] [facility] [address] [place] [address] PCP - [employer] Jeannie Reynolds MD [address] [place] [address] PCP - [facility] [employer]08/23/2509 Sarah Sykes NP [address] [place], [place] [address] Nurse PractitionerFahospital for behavioral medicine Medicine09/21/22documented as of this encounter
--- OUTSIDE RECORDS SUMMARY | 2025-02-27 10:15 | XMS_ITS | Encounter Summary ---
Author Organization [facility] Address [address] [place] [address] Care Team Providers Care Facilities Specialist Name Role Phone Jeannie Reynolds MD Primary Care Provider [phone] Sarah Sykes KNITTING MACHINE FIXER Unavailable [phone] Anila Schneider MUSIC EDUCATION ADJUNCT PROFESSOR-SPEECH COMMUNICATION INSTRUCTOR Unavailable Jeannie Reynolds MD Unavailable [phone] Encounter Details DateTypeDepartmentCare Team (Latest Contact Info)Cbtpllqxjya45/21/2024Clinisync Result Encounter [facility] External Department Unsolicited Waldo Rojo, DO [address] [place] [address] Social History Tobacco UseTypesPacks/DayYears UsedDateSmoking Tobacco: FormerCigarettes [...] on one occasion?Never08/30/2022HQ-2AnswerDate Recorded Patient Health Questionnaire-2 [id number] and Gender InformationValueDate RecordedSex Assigned at BirthNot [...] 4:09 PM Trudi Combs MAPatient Health Questionnaire-2 Mjfaq632 4:09 PM Trudi Combs MA documented as of this encounter Plan of Treatment DateTypeDepartmentCare Team (Latest Contact Info)Toyjnefuvua40/05/2025 10:50 AM ESTRoutine [facility] [place] [facility] [address] [place] [address] Waldo Rojo, [address] [place] [address] documented as of this encounter Procedures Procedure NamePriorityDate/TimeAssociated DiagnosisCommentsUS OB BPP W NON-TVYTWW1103/15/2024 4:41 PM EST URINE CULTURE, FNSAPWXYzxvqoo61/21/2024 1:22 PM EST documented in this encounter Results * US OB BPP W NON-STRESS (03/15/2024 4:41 PM EST)Anatomical Region LateralityModalityOtherSpecimen (Source)Anatomical Location / Laterality Collection Method / VolumeCollection TimeReceived Time03/15/2024 4:41 PM EST Narrative 03/15/2024 4:43 PM EST The [facility] ?[address] ? [place] [address] ? Ultrasound Report ? Signed ? Patient: BRYNN GONZALEZ ?MR#: [id number] ?? : 2000 ?Acct:[id number] ?? Age/Sex: 23 / F ?ADM Date: ?? Loc: [facility] ??250-1 ? Attending Dr: Waldo Rojo D.O. ? Ordering Physician: Waldo Rojo D.O. ?? Date of Service: 03/15/24 ?? Procedure(s): US OB BPP w non-stress ?? Accession Number(s): [id number] ? cc: JEANNA PASCUAL ; Waldo Rojo D.O. ? [facility] ? [address] ? [place] [address] ? Patient Name: ?? BRYNN GONZALEZ ? MRN: [facility]:[id number] ? date: 2000 ?Sex: F ?? Assigned Patient Location: [facility] ?? Current Patient Location: [facility] ?? Accession/Order Number: [id number] ?? Exam Date: 03/15/2024 ??15:40 ?Report Date: 03/15/2024 ??16:41 ? At the request of: ?? WALDO ??ALIA ? Procedure: ??US OB BPP w non-stress ? EXAMINATION: US OB BPP w non-stress ? HISTORY:decreased movement abd. pain ? COMPARISON: No relevant comparison available. ? TECHNIQUE: Ultrasound biophysical profile was performed in the radiology ?? department. ? BREATHING MOVEMENTS: 2 ?? GROSS BODY MOVEMENTS: 2 ?? TONE: 2 ?? QUALITATIVE AMNIOTIC FLUID VOLUME: 2 ? PRESENTATION: CEPHALIC ?? HEART RATE: 121.70 bpm ?? AMNIOTIC FLUID VOLUME: 11.36 cm ?? GESTATIONAL AGE: 33 weeks 4 days ? US/US OB BPP w non-stress ?? IMPRESSION: ? Total biophysical profile score: 8 ? Electronically authenticated by: EDI ??KEI ?? Date: 03/15/2024 ??16:41 ? Dictated By: ?Edi Reyes M.D. ? Signed By: ?03/15/243 ? DD/ 40 ? TD/TT: ? Conveyor Mechanic: Procedure Note Radiology, Radiologist, MD - 03/15/[address] [address] Ultrasound Report Signed Patient: BRYNN GONZALEZ [facility]#: [id number] : 2000Acct:[id number] Age/Sex: M Date: Loc: [facility] 250- Attending Dr: Waldo Alia D.O. Ordering Physician: Waldo Rojo D.O. Date of Service: 03/15/24 Procedure(s): US OB BPP w non-stress Accession Number(s): [id number] cc: JEANNA PASCUAL ; Waldo Rojo D.O. [place] [address] Patient Name: BRYNN GONZALEZ MRN: [facility]:[id number] date: 2000 Sex: F Assigned Patient Location: [facility] Current Patient Location: [facility] Accession/Order Number: [id number] Exam Date: 03/15/2024 15:40 Report Date: 03/15/2024 [...] Reyes M.D. Signed By:03/15/241642 DD/ 40 TD/TT: Conveyor Mechanic: Authorizing ProviderResult TypeResult StatusCorey Alia DOCLINISYNC IMAGINGFinal Result * URINE CULTURE, ROUTINE (03/15/2024 1:22 PM EST)ComponentValueRef RangeTest MethodAnalysis TimePerformed AtPathologist SignatureURINE CULTURE, ROUTINE ??Urine Culture, Routine TBHURINE CULTURE, ROUTINEMixed urogenital floraTBHURINE CULTURE, ZZGBPWT10,000- 50,000 colony forming units per mLTBHURINE CULTURE, ROUTINEPerformed at: [facility] CenterTBRINE CULT[facility], [id number] [place], [place] [id number] URINE CULTURE, ROUTINELab Director: Dc Mtz PhD, Phone: [phone] Specimen (Source)Anatomical Location / LateralityCollection Method / Volume Collection TimeReceived Time03/15/2024 1:22 PM EST03/15/2024 2:39 PM EST Narrative CLINISYNC - 03/17/2024 12:07 AM EST Authorizing ProviderResult TypeResult StatusGeneric External Data ProviderLAB BLOOD ORDERABLESFinal ResultPerforming OrganizationAddressCity/State/ZIP Code Phone Number [facility] documented in this encounter Visit Diagnoses Not on filedocumented in this encounter Additional Health Concerns AssessmentNoted TimePHQ-9 Depression Total Score: 14105/04/2022 10:43 AM EST documented as of this encounter Care Teams Team MemberRelationshipSpecialtyStart DateEnd Date Jeannie Reynolds MD [address] [place] [address] PCP - GeneralFamily Medicine09/21/22 Anila Schneider APRN-SPEECH COMMUNICATION INSTRUCTOR [address] [place] [address] PCP - [employer] Jeannie Reynolds MD [address] [place] [address] PCP - [employer]08/23/2509 Sarah Sykes KNITTING MACHINE FIXER [address] [place], [place] [address] Nurse PractitionerFamily Medicine09/21/22documented as of this encounter
--- OUTSIDE RECORDS SUMMARY | 2025-02-27 10:15 | XMS_ITS | Encounter Summary ---
Author Organization [facility] Address [address] [place] [address] Care Team Providers Care Tricot Knitter Name Role Phone Jeannie Reynolds MD Primary Care Provider [phone] Sarah Sykes MACHINIST SUPERVISOR Unavailable [phone] Anila Schneider SUPERVISOR PASTE MIXING-STRATEGIC PARTNERSHIP SPECIALIST Unavailable Jeannie Reynolds MD Unavailable [phone] Encounter Details DateTypeDepartmentCare Team (Latest Contact Info)Krsdhynjkwy32/23/2024Clinisync Result Encounter [facility] External Department Unsolicited Provider, [...] on one occasion?Never08/30/2022HQ-2AnswerDate Recorded Patient Health Questionnaire-2 Tcrof398CommentsYesSex and Gender InformationValueDate RecordedSex Assigned at BirthNot [...] in doing thingsNot at all01/21/2025 4:09 PM rTudi Combs MA Feeling down, depressed, or hopelessNot at all01/21/2025 4:09 PM Trudi Combs MAPatient Health Questionnaire-2 Wtswf446 4:09 PM Trudi Combs MA documented as of this encounter Plan of Treatment DateTypeDepartmentCare Team (Latest Contact Info)Schamttzzex34/05/2025 10:50 AM ESTRoutine [facility] [place] [facility] [address] [place] [address] Shaw Rojo, [address] [place] [address] documented as of this encounter Procedures Procedure NamePriorityDate/TimeAssociated DiagnosisCommentsUS OB ANATOMY 12/16/2023 6:15 AM EDT documented in this encounter Results * US OB ANATOMY (12/16/2023 6:15 AM EDT)Anatomical RegionLateralityModalityOther Specimen (Source)Anatomical Location / LateralityCollection Method / Volume Collection TimeReceived Time12/16/2023 6:15 AM EDT Narrative 12/16/2023 6:18 AM EDT The [facility] ?[address] ? [place] [address] ? Ultrasound Report ? Signed ? Patient: SCOTT GONZALEZNDRA Orta ?MR#: [id number] ?? : 2000 ?Acct:[id number] ?? Age/Sex: 23 / F ?ADM Date: 12/15/23 ?? Loc: US ? Attending Dr: Yaritza Portillo ? Ordering Physician: Yaritza Portillo ?? Date of Service: 12/15/23 ?? Procedure(s): US OB anatomy ?? Accession Number(s): [id number] ? cc: Yaritza Portillo; JEANNA PASCUAL ? [facility] ? [address] ? [place] [address] ? Patient Name: ?? BRYNN GONZALEZ ? MRN: [facility]:[id number] ? date: 2000 ?Sex: F ?? Assigned Patient Location: US ?? Current Patient Location: ? Accession/Order Number: [id number] ?? Exam Date: 12/15/2023 ??19:05 ?Report Date: 12/16/2023 ??06:15 ? At the request of: ?? YARITZA ??LINDSEY ? Procedure: ??US OB anatomy ? EXAMINATION: US OB anatomy, US OB cervical length ? HISTORY: SCREENING, , FOR ANATOMIC SURVEY Z36.89 ? COMPARISON: Ultrasound OB transvaginal 09/23/2023 ? TECHNIQUE: Transabdominal sonographic examination was performed for ?? obstetrical ?? and evaluation. ? FINDINGS: ? Number: 1 ?? Heart Rate: 153.41 bpm H.B. /min ?? Amniotic Fluid Volume: Subjectively normal ?? Placental Location: ANTERIOR with lower margin 3.6 cm from os. ?? Cervix Length: 6.44 cm , closed ? ANATOMY: Normal Structures -cerebellum, choroid plexus, cisterna magna, ?? lateral ?? cerebral ventricles, orbits, midline falx, hard palate, four-chamber heart, ?? RVOT, LVOT, stomach, kidneys, bladder, umbilical cord insertion into abdomen, ?? three-vessel cord, cervical spine, thoracic spine, lumbar spine, sacral spine, ? right upper extremity, left upper extremity, right lower extremity, left lower ? extremity. ? SUBOPTIMALLY SEEN: None ?? ABNORMALITIES: None ? BIOMETRY: ?? BPD: 4.79 cm; 20 weeks 3 days; 45 % ?? HC: 17.87 cm; 20 weeks 2 days; 30 % ?? AC: 15.91 cm; 21 weeks 0 days; 59.30 % ?? FL: 3.22 cm; 20 weeks 0 days; 23.40 % ?? EFW:360.89 g; 43.50 % ?? FL/AC: 20.22 ?? FL/BPD: 67.23 ?? HC/AC: 1.12 ? GESTATIONAL AGE: ?? Age by EDC: 20 weeks 4 days ?? Age by current US: 20 weeks 3 days ?? JAYE by current US: 2024 ?? JAYE by EDC: 2024-04-29 ? US/US OB anatomy ?? IMPRESSION: ? 1. Single live intrauterine with growth detailed above. ? Electronically authenticated by: EDI ??KEI ?? Date: 12/16/2023 ??06:15 ? Dictated By: ?Edi Reyes M.D. ? Signed By: ?12/15/ 0618 ? DD/ 0615 ? TD/TT: ? Time Lock Expert: Procedure Note Radiology, Radiologist, - 12/16/2023 [place] [address] Ultrasound Report Signed Patient: BRYNN GONZALEZ MMR#: [id number] : 2000Acct:[id number] Age/Sex: 23 M Date: 12/15/23 Loc: US Attending Dr: Yaritza Portillo Ordering Physician: Yaritza Portillo Date of Service: 12/15/23 Procedure(s): US OB anatomy Accession Number(s): [id number] cc: Yaritza Portillo; JEANNA PASCUAL [place] [id number] Patient Name: BRYNN GONZALEZ MRN: [id number] date: 2000 Sex: F Assigned Patient Location: US Current Patient Location: Accession/Order Number: [id number] Exam Date: 12/15/2023 19:05 Report Date: 12/16/2023 [...] Reyes M.D. Signed By:12/16/23617 DD/ 4 TD/TT: Time Lock Expert: Authorizing ProviderResult TypeResult StatusGeneric External Data Provider CLINISYNC IMAGINGFinal Result documented in this encounter Visit Diagnoses Not on filedocumented in this encounter Additional Health Concerns AssessmentNoted TimePHQ-9 Depression Total Score: 14105/04/2022 10:43 AM EST documented as of this encounter Care Teams Team MemberRelationshipSpecialtyStart DateEnd Date Jeannie Reynolds MD [address] [place] [address] PCP - GeneralFancly Medicine09/21/22 Anila Schneider APRN-STRATEGIC PARTNERSHIP SPECIALIST [address] [facility] [address] [place] [address] PCP - [facility] Jeannie Reynolds MD [address] [place], [place] [address] PCP - Deysi Mora08/23/2509 Sarah Sykes NP [address] [place] [address] Nurse PractitionerFamily Medicine09/21/22documented as of this encounter
--- OUTSIDE RECORDS SUMMARY | 2025-02-27 10:15 | XMS_ITS | Encounter Summary ---
Author Organization [facility] Address [address] [place] [address] Care Team Providers Care Director Internal Communications Name Role Phone Jeannie Reynolds MD Primary Care Provider [phone] Sarah Sykes TABLE GAMES DEALER Unavailable Anila Schneider SOLE INKER-HAZ TECH Unavailable Jeannie Reynolds MD Unavailable [phone] Encounter Details DateTypeDepartmentCare Team (Latest Contact Info)Mmrssyinzqs79/23/2024Clinisync Result Encounter [facility] External Department Unsolicited Provider, [...] on one occasion?Never08/30/2022HQ-2AnswerDate Recorded Patient Health Questionnaire-2 Mutes833CommentsYesSex and Gender InformationValueDate RecordedSex Assigned at BirthNot [...] 4:09 PM Trudi Combs MAPatient Health Questionnaire-2 Pxlkv211 4:09 PM Trudi Combs MA documented as of this encounter Plan of Treatment DateTypeDepartmentCare Team (Latest Contact Info)Ubshqxbhfiz88/05/2025 10:50 AM ESTRoutine [facility] [place] [facility] [address] [place] [address] Shaw Rojo, [address] [facility] [place] [address] documented as of this encounter Procedures Procedure NamePriorityDate/TimeAssociated DiagnosisCommentsUS OB CERVICAL LENGTH 12/16/2023 6:15 AM EDT documented in this encounter Results * US OB CERVICAL LENGTH (12/16/2023 6:15 AM EDT)Anatomical RegionLaterality ModalityOtherSpecimen (Source)Anatomical Location / LateralityCollection Method / VolumeCollection TimeReceived Time12/16/2023 6:15 AM EDT Narrative 12/16/2023 6:18 AM EDT The [facility] ?[address] ? [place] [address] ? Ultrasound Report ? Signed ? Patient: MADISONBRYNN Orta ?MR#: [id number] ?? : 2000 ?Acct:[id number] ?? Age/Sex: 23 / F ?ADM Date: 12/15/23 ?? Loc: US ? Attending Dr: Yaritza Portillo ? Ordering Physician: Yaritza Portillo ?? Date of Service: 12/15/23 ?? Procedure(s): US OB cervical length ?? Accession Number(s): [id number] ? cc: Yaritza Portillo; JEANNA PASCUAL ? [facility] ? [address] ? [place] [address] ? Patient Name: ?? BRYNN GONZALEZ ? MRN: [facility]:[id number] ? date: 2000 ?Sex: F ?? Assigned Patient Location: US ?? Current Patient Location: ? Accession/Order Number: [id number] ?? Exam Date: 12/15/2023 ??19:05 ?Report Date: 12/16/2023 ??06:15 ? At the request of: ?? YARITZA ??LINDSEY ? Procedure: ??US OB cervical length ? EXAMINATION: US OB anatomy, US OB [...] JAYE by EDC: 2024-04-29 ? US/US OB cervical length ?? IMPRESSION: ? 1. Single live intrauterine with growth detailed above. ? Electronically authenticated by: EDI ??KEI ?? Date: 12/16/2023 ??06:15 ? Dictated By: ?Edi Reyes M.D. ? Signed By: ?12/15/ 0618 ? DD/ 0615 ? TD/TT: ? Slotter Operator Helper: Procedure Note Radiology, Radiologist, MD - 12/16/2023 [place] [address] Ultrasound Report Signed Patient: BRYNN GONZALEZ [facility]#: [id number] : 2000Acct:[id number] Age/Sex: 23 / FADM Date: 12/15/23 Loc: US Attending Dr: Yaritza Portillo Ordering Physician: Yaritza Portillo Date of Service: 12/15/23 Procedure(s): US OB cervical length Accession Number(s): [id number] cc: Yaritza Portillo; JEANNA PASCUAL [place] [id number] Patient Name: BRYNN GONZALEZ MRN: [id number] date: 2000 Sex: F Assigned Patient Location: US Current Patient Location: Accession/Order Number: [id number] Exam Date: 12/15/2023 19:05 Report Date: 12/16/2023 [...] Reyes M.D. Signed By:12/16/23617 DD/ 4 TD/TT: Slotter Operator Helper: Authorizing ProviderResult TypeResult StatusGeneric External Data Provider CLINISYNC IMAGINGFinal Result documented in this encounter Visit Diagnoses Not on filedocumented in this encounter Additional Health Concerns AssessmentNoted TimePHQ-9 Depression Total Score: 14105/04/2022 10:43 AM EST documented as of this encounter Care Teams Team MemberRelationshipSpecialtyStart DateEnd Date Jeannie Reynolds MD [address] [place] [address] PCP - GeneralFamily Medicine09/21/22 Anila Schneider APRN-HAZ TECH [address] [facility] [address] [place] [address] PCP - [employer] Jeannie Reynolds MD [address] [place], [place] [address] PCP - [employer]08/23/2509 Sarah Sykes NP [address] [facility], [place] [address] Nurse PractitionerFamily Medicine09/21/22documented as of this encounter
--- OUTSIDE RECORDS SUMMARY | 2025-02-27 10:15 | XMS_ITS | Clinical Summary ---
Author Organization [facility] Address [address] [place] [address] Care Team Providers Care V/Stol Landing Signal Officer Name Role Phone Jeannie Reynolds MD Primary Care Provider [phone] Sarah Sykes SUPERINTENDENT MECHANICAL Unavailable [phone] Allergies Active AllergyReactionsCriticalityNoted WvhbQycbxkmbEgajbspnb02/08/2023 Other Reaction(s): Increased anxiety/hallucinations Ifsyihrehcs46/08/2023 Other Reaction(s): Unknown Cfsunockrc18/08/2023 Other Reaction(s): restlessness Latuda DkgwyTnnpgqm99/01/2021 Medications MedicationSigDispense QuantityRefillsLast FilledStart DateEnd DateStatus ibuprofen 800 MG tablet 5Active famotidine (Pepcid) 20 MG tablet Indications:Gastroesophageal reflux disease without esophagitisTake 1 tablet (20 mg) by mouth in the morning and 1 tablet (20 mg) before bedtime. 60 tablet 5Active metoclopramide (Reglan) 10 MG tablet Indications:Nausea/vomiting in ([facility])Take 1 tablet (10 mg) by mouth in the morning and 1 tablet (10 mg) at noon and 1 tablet (10 mg) in the evening. Take before meals. Take 1 tablet by mouth 30 minutes prior to meals 3 times daily as needed for nausea. 90 tablet 5Active ondansetron ODT (Zofran-ODT) 4 MG disintegrating tablet Indications:Nausea and vomiting in ([facility])Take 1 tablet (4 mg) by mouth every 6 (six) hours if needed for nausea or vomiting 30 tablet 515Active ondansetron ODT (Zofran-ODT) 4 MG disintegrating tablet Indications:Nausea and vomiting in ([facility])Take 1 tablet (4 mg) by mouth every 6 (six) hours if needed for nausea or vomiting 30 tablet Discontinued(Reorder) Active Problems ProblemNoted DateDiagnosed DateIrregular ktqakrx97/09/2024Attention deficit 03/04/2023hronic crtqtwb0903/04/2023hronic gastritis without givzjbiu47/10/2023 Dyspareunia due to medical condition in jzszrh9603/04/20234287Ecdhdtvg20/10/2023 Infertility, vgniyn9903/04/2023elvic congestion ejjxigza31/10/2023ttention deficit hyperactivity disorder (ADHD)08/30/2022ipolar II bqssjeyb81/08/2023 Gizovxuucc12/01/2021Migraine with aura and with status migrainosus, not rcqnxypxhxr90/02/2021Mixed anxiety and depressive prqfbzty84/01/2020Acute non intractable tension-type ffguidxv05/18/2020Adjustment disorder with depressed mood12/11/2019Vitamin D verhoayjkj98/19/2019Dysfunction of both eustachian tubes 12/07/2018Allergic fkgocpce18/01/2019Menstrual mxgcyw0807/04/2017Slow transit rnxuzskjbfts91/18/2589Jtrqdhp06/29/2016Gastritis and utpmyihoap24/09/2016 Estimated Date of FokznfreYlybjqegUnx24/07/2026ased on last menstrual period of 11/22/2024 Encounters DateTypeDepartmentCare JbclShxbdonczhc75/10/2025[place] [address] Linda Lala MA Nausea and vomiting in ([facility])01/25/2025 10:00 AM [place] [address] [place]: 9w1d01/25/2025linisync Result Encounter [facility] External Department Unsolicited Waldo Rojo DO 01/23/2025Telephone [facility] [address] Sera Parsons LPN 01/21/2025 4:00 PM EDTOffice Visit [facility] [address] [place] [address] Silva Olmstead, SUPERINTENDENT MECHANICAL Gastroesophageal reflux disease without esophagitis (Primary Dx)01/21/2025amboo flowsheet [facility] [address] [place] [facility] [place] [address] Silva Olmstead, MASON 01/21/20259328Zapcrj28/19/2025[facility] [address] [address] Linda Lala MA 12/07/2024[facility] [address] [place] [address] Ngozi Ledezma LPN from Last 3 Months Immunizations ImmunizationAdministration DatesNext DueDTaP, 5 pertussis jmowfgys02/24/2007 DTaP, Zqjgrqwwogo63/07/2003,2001,2001,2001Hep A, ped/adol, 2 dose03/01/2014,07/26/2013Hep B, Adolescent or Qdzllwfhu76/26/2002,2001, 2001HiB, aotvvbhbtvt68/07/2003,2001,2001,2001Hib (HbOC) 09/15/2006IPV09/15/2006Influenza Whole05/16/2012,04/29/2008Influenza, seasonal, bmspmcuspa57/05/6258LFJ9209/15/2006,07/30/2002Meningococcal BUJ1X0707/26/2013Novel zkwlbxuun-R3T3-02, preservative-free02/12/2009Pneumococcal Conjugate PCV 7 2001Polio, Tzkupncejys32/26/2002,2001,2001Tdap07/26/2013 Cvrzlwuio69/03/2014,07/30/2002 Family History Medical HistoryRelationNameCommentsDiabetesMaternal GrandmotherMental illness Maternal GrandmotherMyasthenia gravisMotherbrain shrinkingMotherMental illness Mother's SisterRelationNameStatusCommentsBrotherpatient has 3 brothersMaternal GrandmotherMotherMother's SisterSisterpatient has 1 sister Social History Tobacco UseTypesPacks/DayYears UsedDateSmoking Tobacco: FormerCigarettes Smokeless Tobacco: Never Tobacco Cessation:Counseling Given: Not Answered Comments:Vapes nicotine daily Alcohol UseStandard Drinks/WeekCommentsNot Currently0 (1 standard drink = 0.6 oz pure [...] on one occasion?Never08/30/2022HQ-2AnswerDate Recorded Patient Health Questionnaire-2 Whbpi467Estimated Date of CmzvcafjZfwjoifoXew08/07/2026ased on last menstrual period of 11/22/2024Sex and Gender InformationValueDate RecordedSex Assigned at BirthNot on fileLegal Sex Eylghi6207/07/2022 6:48 PM EDTGender IdentityNot on fileSexual OrientationNot on fileOccupationIndustryJob 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 Not on fileNot on fileNot on file Last Filed Vital Signs Vital SignReadingTime TakenCommentsBlood Aysrlajl381/6010 11:18 AM EDT Dtfdc837901/21/2025 4:04 PM IASPrchnkxigbv17.2 ??C (97.1 ??F)08/02/2023 3:46 PM EDTRespiratory Rate--Oxygen Fkljuzrsrg12%01/21/2025 4:04 PM EDTInhaled Oxygen Concentration--Izafxn681 kg (247 lb 6.4 oz)01/25/2025 11:18 AM VRNFaxbrv525.6 cm (5' 4 )07/24/2024 12:59 PM EDTBody Mass Index42.47007/24/2024 12:59 PM EDT Plan of Treatment DateTypeDepartmentCare Team (Latest Contact Info)Sauukzmjdsc11/05/2025 10:50 AM ESTRoutine [facility] [place] [facility] [address] [address] Waldo Rojo, DO [address] [place] [address] Health MaintenanceDue DateLast DoneCommentsCOVID-19 Vaccine (2024- season) Influenza Vaccine (#1)5005/16/2012, 04/29/2008, 03/29/2007Pneumococcal Vaccine: Pediatrics (0 to 5 Years) and At-Risk Patients (6 to 64 Years)Aged Out2001No longer eligible based on patient's age to complete this topic Procedures Procedure NamePriorityDate/TimeAssociated DiagnosisCommentsUS OB TRANSVAGINAL 01/25/2025 2:26 PM EDT from Last 3 Months Results * US OB TRANSVAGINAL (01/25/2025 2:26 PM EDT)Anatomical RegionLateralityModality OtherSpecimen (Source)Anatomical Location / LateralityCollection Method / VolumeCollection TimeReceived Time01/25/2025 2:26 PM EDT Narrative 01/25/2025 2:29 PM EDT [facility] ?[address] ? [place] [address] ? Ultrasound Report ? Signed ? Patient: BRYNN GONZALEZ ?MR#: [id number] ?? : 2000 ?Acct:[id number] ?? Age/Sex: 24 / F ?ADM Date: 01/25/25 ?? Loc: US ? Attending Dr: Waldo Rojo D.O. ? Ordering Physician: Waldo Rojo D.O. ?? Date of Service: 01/25/25 ?? Procedure(s): US OB transvaginal ?? Accession Number(s): [id number] ? cc: JEANNA PASCUAL ; Waldo Rojo D.O. ? [facility] ? [address] ? [place] [address] ? Patient Name: ?? BRYNN GONZALEZ ? MRN: [facility]:[id number] ? date: 2000 ?Sex: F ?? Assigned Patient Location: ?? Current Patient Location: US ?? Accession/Order Number: [id number] ?? Exam Date: 01/25/2025 ??09:36 ?Report Date: 01/25/2025 ??14:26 ? At the request of: ?? WALDO ??ALIA ??DO ? Procedure: ??US OB transvaginal ? OB ultrasound. ? Reason for exam:Missed menses. ? Comparison:None ? Technique: Transvaginal imaging of the gravid uterus was obtained. ? Findings: ? Single live intrauterine 8 weeks 6 days by CRL JAYE 08/29/2025. ? heart rate 163 bpm. ??No free fluid. ??Right ovary appears unremarkable. ??Corpus ?? luteum left ovary. ? US/US OB transvaginal ?? Impression: ? Single live intrauterine 8 weeks 6 days by CRL, JAYE 08/29/2025. ? Impression dictated by: Jordin Cheney Jr. DIrasema ??01/25/2025 2:26 PM ? Dictation Location: [facility]-- ? Electronically authenticated by: [id number] ??Y ?? Date: 01/25/2025 ??14:26 ? Dictated By: ?Jordin Cheney M.D. ? Signed By: ?01/25/25 1429 ? DD/ ? TD/TT: ? Selvage Machine Operator: Procedure Note Radiology, Radiologist, MD - 01/25/2025 [place] [address] Ultrasound Report Signed Patient: BRYNN GONZALEZ [facility]#: [id number] : 2000Acct:[id number] Age/Sex: 24 / FADM Date: 01/25/25 Loc: US Attending Dr: Waldo Rojo D.O. Ordering Physician: Waldo Rojo D.O. Date of Service: 01/25/25 Procedure(s): US OB transvaginal Accession Number(s): [id number] cc: JEANNA PASCUAL ; Waldo Rojo D.O. [address] [address] Patient Name: BRYNN GONZALEZ MRN: [facility]:[id number] date: 2000 Sex: F Assigned Patient Location: US Current Patient Location: US Accession/Order Number: [id number] Exam Date: 01/25/2025 09:36 Report Date: 01/25/2025 14:26 At the request of: WALDO ROJO DO Procedure: US OB transvaginal OB ultrasound. Reason for exam:Missed menses. Comparison:None Technique: Transvaginal imaging of the gravid uterus was obtained. Findings: Single live intrauterine 8 weeks 6 days by CRL JAYE 08/29/2025. heart rate 163 bpm. No free fluid. Right ovary appears unremarkable.Corpus luteum left ovary. US/US OB transvaginal Impression: Single live intrauterine 8 weeks 6 days by CRL, JAYE 08/29/2025. Impression dictated by: Jordin Cheney Jr., D.O. 01/25/2025 2:26 PM Dictation Location: [place] [address] Electronically authenticated by: [id number] Y Date: 4:26 Dictated By: Jordin Cheney M.D. Signed By:01/25/25 1429 DD/ 1426 TD/TT: Selvage Machine Operator: Authorizing ProviderResult TypeResult StatusCorey Alia DOCLINISYNC IMAGINGFinal Result from Last 3 Months Insurance Care Teams Team MemberRelationshipSpecialtyStart DateEnd Jeannie Reynolds MD [address] [place] [address] PCP - GeneralFamily Medicine09/21/22 Sarah Sykes NP [address] [place] [address] Nurse PractitionerFamily Medicine09/21/22
--- OUTSIDE RECORDS SUMMARY | 2025-02-27 10:15 | XMS_ITS | Encounter Summary ---
Author Organization [employer] [facility] tem Address [id number] [address] [place] [address] Care Team Providers Care Reel Film Inspector Name Role Phone Leah Azar MD Primary Care Provider [phone] Encounter Details DateTypeDepartmentCare Team (Latest Contact Info)Puggmrmptms19/04/2025Travel Social History Tobacco UseTypesPacks/DayYears UsedDateSmoking Tobacco: Every DayCigarettes Smokeless Tobacco: NeverAlcohol UseStandard Drinks/WeekCommentsYes0 (1 standard drink = 0.6 oz pure alcohol)TWICE WEEKLYChildcareAnswerDate RecordedChildcare Bpkmwpl4110/04/2018EmploymentAnswerDate DizvzsacLzhrriltdmPzbylct76/12/2019Hunger ScreeningAnswerDate RecordedWithin the past 12 months we worried whether our food would run out before we got money to buy more.Never True07/28/2024Within the past 12 months the food we bought just didn't last and we didn't have money to get more.Never True07/28/2024Purpose - LifeAnswerDate RecordedPurpose and direction in pjatXyyklop36/22/2021CommentsNoSex and Gender Information ValueDate RecordedSex Assigned at BirthNot on fileLegal CxdMqeqci21/06/2015 11:58 AM EDTGender IdentityNot on fileSexual OrientationNot on filedocumented as of this encounter Plan of Treatment Not on file documented as of this encounter Visit Diagnoses Not on filedocumented in this encounter Care Teams Team MemberRelationshipSpecialtyStart DateEnd Date Leah Azar MD PCP - GeneralFamily Medicine10/01/16documented as of this encounter
--- OUTSIDE RECORDS SUMMARY | 2025-02-27 10:15 | XMS_ITS | Clinical Summary ---
Author Organization [employer] tem Address [id number] [address] [place] [address] Care Team Providers Care Supervisor Gas Meter Repair Name Role Phone Leah Azar MD Primary Care Provider [phone] Allergies No known active allergies Medications MedicationSigDispense QuantityRefillsLast FilledStart DateEnd DateStatus ibuprofen (ADVIL,MOTRIN) 800 mg tablet Take 1 tablet (800 mg total) by mouth 3 (three) times a day. 21 tablet 12/06/2020ctive Additional Information Patient not taking.Reported on 05/25/2021 buPROPion XL (WELLBUTRIN XL) 300 mg 24 hr tablet Take 300 mg by mouth daily.Active Active Problems No known active problems Encounters DateTypeDepartmentCare DmcaQnejhfxusud53/04/2025Travelfrom Last 3 Months Family History Medical HistoryRelationNameCommentsBreast cancerNeg HxCancerNeg HxColon cancer Neg HxDiabetesNeg HxHypertensionNeg HxOvarian cancerNeg HxStrokeNeg Hx Social History Tobacco UseTypesPacks/DayYears UsedDateSmoking Tobacco: Every DayCigarettes Smokeless Tobacco: Never Tobacco Cessation:Ready to Q uit: Yes; Counseling Given: Yes Alcohol UseStandard Drinks/WeekCommentsYes0 (1 standard drink = 0.6 oz pure alcohol)TWICE WEEKLYChildcareAnswerDate AaflxhcmEdmkhfgbuAcymakt22/12/2019 EmploymentAnswerDate KpgqmbgfPiiohawjdiYxqflyj48/12/2019Hunger ScreeningAnswer Date RecordedWithin the past 12 months we worried whether our food would run out before we got money to buy more.Never True07/28/2024Within the past 12 months the food we bought just didn't last and we didn't have money to get more.Never True07/28/2024Purpose - LifeAnswerDate RecordedPurpose and direction in life [place]62/22/2021CommentsNoSex and Gender InformationValueDate Recorded Sex Assigned at BirthNot on fileLegal ZgwRsmscy98/06/2015 11:58 AM EDTGender IdentityNot on fileSexual OrientationNot on file Last Filed Vital Signs Vital SignReadingTime TakenCommentsBlood Zdhulams652/7604 3:15 PM EDT Rswgq673007/28/2024 3:15 PM NJLJfjcaxngoqy83.4 ??C (97.6 ??F)07/28/2024 1:41 PM EDTRespiratory Nyyk331007/28/2024 3:15 PM EDTOxygen Ktchgeeyux38%07/28/2024 3:15 PM EDTInhaled Oxygen Concentration--Eqycox428.4 kg (239 lb)07/28/2024 1:41 PM DOVEsgwfi850.6 cm (5' 4 )07/28/2024 1:41 PM EDTBody Mass Index41.02007/28/2024 1:41 PM EDT Plan of Treatment Health MaintenanceDue DateLast DoneCommentsTobacco Lkczpltjdi73/06/2002 Depression Zjeapnshg13/06/2014Adult BMI Follow Up Plan2019Chlamydia Ugmnxyjia53/1Pap Smear3DTaP,Tdap and Td Vaccines (7 - Td or Tdap)/06/2013, 09/15/2006, 07/30/2002, Additional history existsCOVID-19 Vaccine ( season)/07/2022, 06/01/2022 Influenza Ioftszs41/, 02/12/2009, 04/29/2008, Additional history existsAdult BMI Bgluakxti17/08/2024Tobacco Qczhcvodf49/05/2026 07/28/2024 Medical Devices Not on file Procedures Procedure NamePriorityDate/TimeAssociated DiagnosisCommentsCHLAMYDIA/GC BY PCR MICHELE URJYNauhacs98/04/2021 12:23 PM EST Screening for STDs (sexually transmitted diseases) from Last 3 Months or Most Recently Relevant to Health Maintenance Results * Chlamydia/GC by PCR Michele Swab (06/26/2020 12:23 PM EST)ComponentValueRef RangeTest MethodAnalysis TimePerformed AtPathologist SignatureSpecimen source FEGDWTWH33/04/2021 9:[address] [facility]:Corrected on 06/26 AT 2129: Previously reported as CERVICALChlamydia DNA PCRNegative Negative^Vutqywol44/05/2021 12:[address] [facility]Comment: ? Chlamydia trachomatis not detected by nucleic acid amplification. This does not exclude the possibility of infection because results are dependent on adequate specimen collection. ? Gonorrhea DNA PCRNegativeNegative^Zkuewgjn98/05/2021 12:[address] [facility]Comment: ? Neisseria gonorrhoeae not detected by nucleic acid amplification. This does not exclude the possibility of infection because results are dependent on adequate specimen collection. ? Specimen (Source)Anatomical Location / LateralityCollection Method / Volume Collection TimeReceived SbksITEJ71/04/2021 12:23 PM EST06/26/2020 9:29 PM EST Narrative Authorizing ProviderResult TypeResult StatusGaylbárbara Duval APRN-CNMMICROBIOLOGY - GENERAL ORDERABLESEdited Result - FinalPerforming OrganizationAddress City/State/ZIP CodePhone Number [facility] [address], [address] [place] [address] from Last 3 Months or Most Recently Relevant to Health Maintenance Insurance Care Teams Team MemberRelationshipSpecialtyStart DateEnd Date Leah Azar MD [facility] - [facility]10/01/16
--- OUTSIDE RECORDS SUMMARY | 2025-02-27 10:15 | XMS_ITS | Encounter Summary ---
Author Organization [facility] Address [address] [place] [address] Care Team Providers Care Library Media Assistant Name Role Phone Jeannie Reynolds MD Primary Care Provider [phone] Sarah Sykes PENS AND PENCILS DIPPER Unavailable [phone] Anila Schneider CLEAT FEEDER-TUBE COATER Unavailable Jeannie Reynolds MD Unavailable [phone] Encounter Details DateTypeDepartmentCare Team (Latest Contact Info)Avibhxofady52/18/2024Clinisync Result Encounter [facility] External Department Unsolicited Waldo Rojo, DO [address] [place], [place] [address] Social History Tobacco UseTypesPacks/DayYears UsedDateSmoking Tobacco: FormerCigarettes [...] on one occasion?Never08/30/2022HQ-2AnswerDate Recorded Patient Health Questionnaire-2 Wiejy726CommentsYesSex and Gender InformationValueDate RecordedSex Assigned at BirthNot [...] 4:09 PM Trudi Combs MAPatient Health Questionnaire-2 Scafy892 4:09 PM Trudi Combs MA documented as of this encounter Plan of Treatment DateTypeDepartmentCare Team (Latest Contact Info)Bjjtkfmnoxt95/05/2025 10:50 AM ESTRoutine [facility] [place] [facility] [address] [place] [address] Waldo Rojo, [address] [place] [address] documented as of this encounter Procedures Procedure NamePriorityDate/TimeAssociated DiagnosisCommentsUS OB BPP W NON-ESJPDB9504/11/2024 3:49 PM EST documented in this encounter Results * US OB BPP W NON-STRESS (04/11/2024 3:49 PM EST)Anatomical Region LateralityModalityOtherSpecimen (Source)Anatomical Location / Laterality Collection Method / VolumeCollection TimeReceived Time04/11/2024 3:49 PM EST Narrative 04/11/2024 3:51 PM EST [facility] ?[address] ? [place] [address] ? Ultrasound Report ? Signed ? Patient: BRYNN GONZALEZ ?MR#: [id number] ?? : 2000 ?Acct:[id number] ?? Age/Sex: 23 / F ?ADM Date: ?? Loc: [facility] ??250-1 ? Attending Dr: Waldo Rojo D.O. ? Ordering Physician: Alia,Waldo D.O. ?? Date of Service: 04/11/24 ?? Procedure(s): US OB BPP w non-stress ?? Accession Number(s): [id number] ? cc: JEANNA PASCUAL ; Waldo Rojo D.O. ? [facility] ? [address] ? [place] [address] ? Patient Name: ?? BRYNN GONZALEZ ? MRN: [facility]:[id number] ? date: 2000 ?Sex: F ?? Assigned Patient Location: [facility] ?? Current Patient Location: [facility] ?? Accession/Order Number: [id number] ?? Exam Date: 04/11/2024 ??15:20 ?Report Date: 04/11/2024 ??15:49 ? At the request of: ?? WALDO ??ALIA ? Procedure: ??US OB BPP w non-stress ? EXAMINATION: US OB BPP w non-stress ? HISTORY:decreased movement ? COMPARISON: Ultrasound OB biophysical 03/15/2024 ? TECHNIQUE: Ultrasound biophysical profile was performed in the radiology ?? department. ? BREATHING MOVEMENTS: 2 ?? GROSS BODY MOVEMENTS: 2 ?? TONE: 2 ?? QUALITATIVE AMNIOTIC FLUID VOLUME: 2 ? PRESENTATION: CEPHALIC ?? HEART RATE: 133.00 bpm ?? AMNIOTIC FLUID VOLUME: 12.99 cm ?? GESTATIONAL AGE: 37 weeks 3 days ? US/US OB BPP w non-stress ?? IMPRESSION: ? Total biophysical profile score: 8 ? Electronically authenticated by: EDI ??KEI ?? Date: 04/11/2024 ??15:49 ? Dictated By: ?Edi Reyes M.D. ? Signed By: ?04/11/24 1551 ? DD/ 1549 ? TD/TT: ? Assistant Merchandiser: Procedure Note Radiology, Radiologist, MD - 04/11/[address] [place] [address] Ultrasound Report Signed Patient: BRYNN GONZALEZ [facility]#: [id number] : 2000Acct:[id number] Age/Sex: 23 M Date: Loc: [facility] 250-[address]: Waldo Rojo D.O. Ordering Physician: Waldo Rojo D.O. Date of Service: 04/11/24 Procedure(s): US OB BPP w non-stress Accession Number(s): [id number] cc: JEANNA PASCUAL ; Waldo Rojo D.O. [address] [address] Patient Name: BRYNN GONZALEZ MRN: [facility]:[id number] date: 2000 Sex: F Assigned Patient Location: [facility] Current Patient Location: [facility] Accession/Order Number: [id number] Exam Date: 04/11/2024 15:20 Report Date: 04/11/2024 [...] M.D. Signed By:04/11/24 1551 DD/ 1549 TD/TT: Assistant Merchandiser: Authorizing ProviderResult TypeResult StatusCorey Alia DOCLINISYNC IMAGINGFinal Result documented in this encounter Visit Diagnoses Not on filedocumented in this encounter Additional Health Concerns AssessmentNoted TimePHQ-9 Depression Total Score: 14105/04/2022 10:43 AM EST documented as of this encounter Care Teams Team MemberRelationshipSpecialtyStart DateEnd Date Jeannie [place] MD [address] [place] [address] PCP - GeneralFamily Medicine09/21/22 Anila Schneider APRN-TUBE COATER [address] [facility] [address] [place] [address] PCP - Deysi Mora Jeannie Reynolds MD [address] [place], [place] [address] PCP - Deysi Commercial08/23/2509 Sarah Sykes NP [address] [place] [address] Nurse PractitionerFamily Medicine09/21/22documented as of this encounter
--- OUTSIDE RECORDS SUMMARY | 2025-02-27 10:15 | XMS_ITS | Encounter Summary ---
Author Organization [facility] Address [address] [place] [address] Care Team Providers Care Willow Machine Tender Name Role Phone Jeannie Reynolds MD Primary Care Provider [phone] Sarah Sykes HEEL BURNISHER Unavailable [phone] Anila Schneider CORRECTIONAL FACILITY NURSE-LADLE LINER HELPER Unavailable Jeannie Reynolds MD Unavailable [phone] Encounter Details DateTypeDepartmentCare Team (Latest Contact Info)Vpzqhexpfbh40/01/2024Clinisync Result Encounter [facility] External Department Unsolicited Waldo Rojo, DO [address] [place] [address] Social History Tobacco UseTypesPacks/DayYears UsedDateSmoking Tobacco: FormerCigarettes [...] on one occasion?Never08/30/2022HQ-2AnswerDate Recorded Patient Health Questionnaire-2 [id number] and Gender InformationValueDate RecordedSex Assigned at BirthNot [...] 4:09 PM Trudi Combs MAPatient Health Questionnaire-2 Qbypo353 4:09 PM Trudi Combs MA documented as of this encounter Plan of Treatment DateTypeDepartmentCare Team (Latest Contact Info)Zafhndwilew12/05/2025 10:50 AM ESTRoutine [facility] [address] [phone] Waldo Rojo, [address] [place] [place] [address] documented as of this encounter Procedures Procedure NamePriorityDate/TimeAssociated DiagnosisCommentsUS OB GROWTH 02/24/2024 8:02 AM EDT documented in this encounter Results * US OB GROWTH (02/24/2024 8:02 AM EDT)Anatomical RegionLateralityModalityOther Specimen (Source)Anatomical Location / LateralityCollection Method / Volume Collection TimeReceived Time02/24/2024 8:02 AM EDT Narrative 02/24/2024 8:05 AM EDT [facility] ?[address] ? [place] [address] ? Ultrasound Report ? Signed ? Patient: MADISONBRYNN Orta ?MR#: [id number] ?? : 2000 ?Acct:[id number] ?? Age/Sex: 23 / F ?ADM Date: 02/23/24 ?? Loc: US ? Attending Dr: Waldo Rojo D.O. ? Ordering Physician: Waldo Rojo D.O. ?? Date of Service: 02/23/24 ?? Procedure(s): US OB growth ?? Accession Number(s): [id number] ? cc: JEANNA PASCUAL ; Waldo Rojo D.O. ? [facility] ? [address] ? [place] [address] ? Patient Name: ?? BRYNN GONZALEZ ? MRN: [facility]:[id number] ? date: 2000 ?Sex: F ?? Assigned Patient Location: US ?? Current Patient Location: ? Accession/Order Number: [id number] ?? Exam Date: 02/23/2024 ??19:12 ?Report Date: 02/24/2024 ??08:02 ? At the request of: ?? WALDO ??ALIA ? Procedure: ??US OB growth ? EXAMINATION: US OB growth ? HISTORY: EXCESSIVE GROWTH AFFECTING O36.60X0 ? COMPARISON: No relevant comparison available. ? FINDINGS: ? Heart Rate: 134.33 bpm ?? Amniotic Fluid Volume: 16.1 cm, largest fluid pocket 7.6 cm ?? Number: 1 ?? Position: CEPHALIC ? BIOMETRY: ?? BPD: 7.83 cm; 31 weeks 3 days; 65.80 % ?? HC: 28.40 cm; 31 weeks 1 day; 29.80 % ?? AC: 27.53 cm; 31 weeks 4 days; 75.70 % ?? FL: 5.67 cm; 29 weeks 5 days; 16.30 % ?? EFW: 1675.87 g; 51.50 %, 3 lbs. 11 oz. ?? FL/AC: 20.60 ?? FL/BPD: 72.40 ?? HC/AC: 1.03 ? GESTATIONAL AGE: ?? Age by EDC: 30 weeks 4 days ?? JAYE by EDC: 2024-04-29 ?? Age by US: 31 weeks 0 days ?? JAYE by US: 2024-04-26 ? US/US OB growth ?? IMPRESSION: ? Normal interval growth ? Electronically authenticated by: HAYLIE ??SILVA ?? Date: 02/24/2024 ??08:02 ? Dictated By: ?Haylie Ascencio M.D. ? Signed By: ?02/24/24 0805 ? DD/ 0802 ? TD/TT: ? Nurse Prn: Procedure Note Radiology, Radiologist, MD - 11/01/2024 [place] [address] Ultrasound Report Signed Patient: BRYNN GONZALEZ MMR#: [id number] : 2000Acct:[id number] Age/Sex: 23 / FADM Date: 02/23/24 Loc: US Attending Dr: Waldo Rojo D.O. Ordering Physician: Waldo Rojo D.O. Date of Service: 02/23/24 Procedure(s): US OB growth Accession Number(s): [id number] cc: JEANNA PASCUAL ; Waldo Rojo D.O. The [place] [id number] Patient Name: BRYNN GONZALEZ MRN: [facility]:[id number] date: 2000 Sex: F Assigned Patient Location: US Current Patient Location: Accession/Order Number: [id number] Exam Date: 02/23/2024 19:12 Report Date: 02/24/2024 [...] Ascencio M.D. Signed By:02/24/24804 DD/ 1 TD/TT: Nurse Prn: Authorizing ProviderResult TypeResult StatusCorey Alia DOCLINISYNC IMAGINGFinal Result documented in this encounter Visit Diagnoses Not on filedocumented in this encounter Additional Health Concerns AssessmentNoted TimePHQ-9 Depression Total Score: 14105/04/2022 10:43 AM EST documented as of this encounter Care Teams Team MemberRelationshipSpecialtyStart DateEnd Date Jeannie Reynolds MD [address] [place] [address] [facility] - [facility] Anila Schneider CORRECTIONAL FACILITY NURSE-LADLE LINER HELPER [address] [place] [address] PCP - [place] [employer] Jeannie Reynolds MD [address] [place] [address] PCP - [place] [employer]08/23/2509 Sarah Sykes NP [address] [place], [place] [id number] Nurse PractitionerFascly Medicine09/21/22documented as of this encounter
--- OUTSIDE RECORDS SUMMARY | 2025-02-27 10:15 | XMS_ITS | Encounter Summary ---
Author Organization [facility] Address [address] [place] [address] Care Team Providers Care Assistant Hairstylist Name Role Phone Jeannie Reynolds MD Primary Care Provider [phone] Sarah Sykes ANIMAL CONTROL SPECIALIST Unavailable [phone] Anila Schneider COORDINATOR OF PLACEMENT-TORTILLA MAKER Unavailable Jeannie Reynolds MD Unavailable [phone] Encounter Details DateTypeDepartmentCare Team (Latest Contact Info)Vqmsorbzzmg10/02/2025linisync Result Encounter [facility] External Department Unsolicited Provider, [...] on one occasion?Never08/30/2022HQ-2AnswerDate Recorded Patient Health Questionnaire-2 [id number] and Gender InformationValueDate RecordedSex Assigned at BirthNot [...] in doing thingsNot at all01/21/2025 4:09 PM EDTTrudi Lozano MA Feeling down, depressed, or hopelessNot at all01/21/2025 4:09 PM Trudi Combs MAPatient Health Questionnaire-2 Ywyye530 4:09 PM Trudi Combs MA documented as of this encounter Plan of Treatment DateTypeDepartmentCare Team (Latest Contact Info)Iqjzblxaylq52/05/2025 10:50 AM ESTRoutine [facility] [address] [phone] Waldo Rojo DO [address] [place], [place] [id number] documented as of this encounter Procedures Procedure NamePriorityDate/TimeAssociated DiagnosisCommentsHP CBC WITH PLATELET NO MRCKOGGXFNJLJtfwxtm44/02/2025 4:05 PM EST [facility] DRUG SCREEN RAPID (URINE)Wkwtube1004/26/2024 4:00 PM EST US OB BPP W NON-DIEJZG5704/26/2024 1:31 PM EST documented in this encounter Results * (ABNORMAL) HP CBC WITH PLATELET NO DIFFERENTIAL (04/26/2024 4:05 PM EST) ComponentValueRef RangeTest MethodAnalysis TimePerformed AtPathologist SignatureTBH WBC15.9(H)4.0 - 11.0 10 3/uLTBHTBH RBC4.644.20 - 5.40 10 6/uLTBH TBH HGB12.012.0 - 16.0 g/dLTBHTBH HCT37.236.0 - 48.0 %TBHTBH MCV80.2(L)81.0 - 99.0 fLTBHTBH MCH25.9(L)26.7 - 34.0 pgTBHTBH MCHC32.329.9 - 35.2 g/dLTBHT RDW13.211.0 - 15.0 %TBHTBH HOL593483 - 450 10 3/uLTBHTBH MPV9.4(L)9.5 - 13.5 fLTBHSpecimen (Source)Anatomical Location / LateralityCollection Method / VolumeCollection TimeReceived Time04/26/2024 4:05 PM EST04/26/2024 4:18 PM EST Narrative [facility] - 04/26/2024 4:25 PM EST Authorizing ProviderResult TypeResult StatusCorey Alia DOCLINISYNCFinal Result Performing OrganizationAddressCity/State/ZIP CodePhone Number [facility]NC [facility] * TB DRUG SCREEN RAPID (URINE) (04/26/2024 4:00 PM EST)ComponentValueRef Range Test MethodAnalysis TimePerformed AtPathologist SignatureCANNABINOID SCREEN URINENEGATIVENEGATIVETBHPHENCYCLIDINE SCREEN URINENEGATIVENEGATIVETBHCOCAINE SCREEN URINENEGATIVENEGATIVETBHMETHAMPHETAMINES SCREEN URINENEGATIVENEGATIVE TBHOPIATE SCREEN URINENEGATIVENEGATIVETBHAMPHETAMINE SCREEN URINENEGATIVE NEGATIVETBHBENZODIAZEPINES SCREEN URINENEGATIVENEGATIVETBHTRICYCLIC ANTIDEPRESSANT URINENEGATIVENEGATIVETBHMETHADONE SCREEN URINENEGATIVENEGATIVE TBHBARBITURATES SCREEN URINENEGATIVENEGATIVETBHOXYCODONE SCREEN URINENEGATIVE NEGATIVETBHBUPRENORPHINE SCREEN URINENEGATIVENEGATIVETBHComment: DRUG CLASS TEST SYSTEM CUT-OFF CONCENTRATIONS ARE FOLLOWS: AMP (Amphetamine): 500 ng/mL BAR (Barbiturates): 200 ng/mL BZO (Benzodiazepines): 150 ng/mL BUP (Buprenorphine): 10 ng/mL VANESSA (Cocaine): 150 ng/mL mAMP (Methamphetamine): 500 ng/mL MTD (Methadone): 200 ng/mL OPI (Opiates): 100 ng/mL OXY (Oxycodone): 100 ng/mL PCP (Phencyclidine): 25 ng/mL THC (Cannabinoids): 50 ng/mL TCA (Trycyclic Antidepressants): 300 ng/mL Specimen (Source)Anatomical Location / LateralityCollection Method / Volume Collection TimeReceived Time04/26/2024 4:00 PM EST04/26/2024 4:18 PM EST Narrative [facility] - 04/26/2024 4:46 PM EST Authorizing ProviderResult TypeResult StatusCorey Alia DOCLINISYNCFinal Result Performing OrganizationAddressCity/State/ZIP CodePhone Number [facility] * US OB BPP W NON-STRESS (04/26/2024 1:31 PM EST)Anatomical Region LateralityModalityOtherSpecimen (Source)Anatomical Location / Laterality Collection Method / VolumeCollection TimeReceived Time04/26/2024 1:31 PM EST Narrative 04/26/2024 1:34 PM EST [facility] ?[address] ? [place] [address] ? Ultrasound Report ? Signed ? Patient: BRYNN GONZALEZ ?MR#: [id number] ?? : 2000 ?Acct:[id number] ?? Age/Sex: 23 / F ?ADM Date: 04/26/24 ?? Loc: [facility] ??252-1 ? Attending Dr: Waldo Rojo D.O. ? Ordering Physician: Waldo Rojo D.O. ?? Date of Service: 04/26/24 ?? Procedure(s): US OB BPP w non-stress ?? Accession Number(s): [id number] ? cc: JEANNA PASCUAL ; Waldo Rojo D.O. ? [facility] ? [address] ? [place] [address] ? Patient Name: ?? BRYNN GONZALEZ ? MRN: [facility]:[id number] ? date: 2000 ?Sex: F ?? Assigned Patient Location: [facility] ?? Current Patient Location: [facility] ?? Accession/Order Number: [id number] ?? Exam Date: 04/26/2024 ??13:00 ?Report Date: 04/26/2024 ??13:31 ? At the request of: ?? WALDO ??ALIA ? Procedure: ??US OB BPP w non-stress ? EXAMINATION: US OB BPP w non-stress ? HISTORY: excessive growth ? COMPARISON: No relevant comparison available. ? TECHNIQUE: Ultrasound biophysical profile was performed in the radiology ?? department. non-reactive stress testing was performed by nursing staff ?? in ?? the birthing center. ? FINDINGS: ?? BREATHING MOVEMENTS: 2 ?? GROSS BODY MOVEMENTS: 2 ?? TONE: 2 ? QUALITATIVE AMNIOTIC FLUID VOLUME: 2 ?? PRESENTATION: CEPHALIC ?? HEART RATE: 122.17 bpm ?? AMNIOTIC FLUID VOLUME: 6.3 ?? GESTATIONAL AGE: 39 weeks 4 days ? US/US OB BPP w non-stress ?? IMPRESSION: ? Total biophysical profile score: 8 ? Oligohydramnios ? Electronically authenticated by: HAYLIE ??SILVA ?? Date: 04/26/2024 ??13:31 ? Dictated By: ?Haylie Ascencio M.D. ? Signed By: ?04/26/24 1334 ? DD/ 1331 ? TD/TT: ? Stave Grader: Procedure Note Radiology, Radiologist, MD - 04/26/2024 [place] [address] Ultrasound Report Signed Patient: BRYNN GONZALEZ MMR#: [id number] : 2000Acct:[id number] Age/Sex: 23 FADM Date: 04/26/24 Loc: [facility] 252-[address]: Waldo Rojo D.O. Ordering Physician: Waldo Rojo D.O. Date of Service: 04/26/24 Procedure(s): US OB BPP w non-stress Accession Number(s): [id number] cc: JEANNA PASCUAL ; Waldo Rojo D.O. The [place] [id number] Patient Name: BRYNN GONZALEZ MRN: [facility]:[id number] date: 2000 Sex: F Assigned Patient Location: [facility] Current Patient Location: [facility] Accession/Order Number: [id number] Exam Date: 04/26/2024 13:00 Report Date: 04/26/2024 [...] Haylie Ascencio M.D. Signed By:04/26/24 1334 DD/ 1331 TD/TT: Stave Grader: Authorizing ProviderResult TypeResult StatusGeneric External Data Provider CLINISYNC IMAGINGFinal Result documented in this encounter Visit Diagnoses Not on filedocumented in this encounter Additional Health Concerns AssessmentNoted TimePHQ-9 Depression Total Score: 14105/04/2022 10:43 AM EST documented as of this encounter Care Teams Team MemberRelationshipSpecialtyStart DateEnd Date Jeannie Reynolds MD [address] [place] [address] PCP - GeneralFamily Medicine09/21/22 Anila Schneider APRN-TORTILLA MAKER [address] [address] PCP - [place] [employer]/ Jeannie Reynolds MD [address] [place], [place] [address] PCP - [place] [employer]08/23/2509 Sarah Sykes NP [address] [place], [place] [phone] Nurse PractitionerFamily Medicine09/21/22documented as of this encounter
--- OUTSIDE RECORDS SUMMARY | 2025-02-27 10:15 | XMS_ITS | CCD ---
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 10*3/mBSmsjja939-198SijMrftnk [facility] HospitalComment on above:Performed By: #### CBCA, 06154-9, PINR, 11515- 9, CMP, 45848-4 #### [facility] ([id number]) [address] [place] [address] 29159QES COUNT4.93 X10E12/LNormal3.80-5.20[facility] Comment on above:Performed By: #### CBCA, 84849-5, PINR, 00294-9, CMP, 82650-5 #### [facility] ([id number]) [address] [place] [address] 30797QYB (Bld) [#/Vol]9.9 10*3/uLNormal4.0-11.0ProHuntsville Memorial HospitalComment on above:Performed By: #### CBCA, 97967-0, PINR, 70794-4, CMP, 75913-8 #### [facility] ([id number]) [address] [place] [address] 95095ARJBDRTSHBRJS METABOLIC PANELon 43-03-2644Fxxqctl [Mass/Vol]4.1 g/dLNormal3.2-5.3PWood County HospitalComment on above:Performed By: #### CBCA, 99292-4, PINR, 53260-4, CMP, 71377-9 #### [facility] ([id number]) [address] [place] [address] 39018TZI [Catalytic activity/Vol]82 U/NHlokgz25-644EdbUsvipkHuntsville Memorial HospitalComment on above:Performed By: #### CBCA, 90653-0, PINR, 71921-3, CMP, 57767-5 #### [facility] ([id number]) [address] [place] [address] 56562OFQ [Catalytic activity/Vol]13 U/LNormal0-31PWood County HospitalComment on above:Performed By: #### CBCA, 77580-5, PINR, 77939-1, CMP, 58686-2 #### [facility] ([id number]) [address] [place] [address], [place] [address]Xjvpx gap [Moles/Vol]7 mmol/LNormal5-15[facility] [place] [facility] HospitalComment on above:Performed By: #### CBCA, 55217-3, PINR, 86477-1, CMP, 19726-7 #### [facility] ([id number]) [address] [place] [address], [place] [address]JQN [Catalytic activity/Vol]17 U/LNormal0-41ProHuntsville Memorial HospitalComment on above:Performed By: #### KIRA, 53616-2, PINR, 87220-0, CMP, 46094-0 #### [facility] ([id number]) [address] [place] [address], [place] [address]Yqhphugxc [Mass/Vol]0.6 mg/dLNormal0.3-1.2PWood County HospitalComment on above:Performed By: #### KIRA, 22141-4, PINR, 34015-9, CMP, 18636-9 #### [facility] ([id number]) [address] [place] [address], [place] [address]Wqhetio [Mass/Vol]9.3 mg/dLNormal8.5-10.5PWood County HospitalComment on above:Performed By: #### CBCRobyn, 37022-3, PINR, 04865-3, CMP, 92304-2 #### [facility] ([id number]) [address] [place] [address], [place] [address]Djrrhdic [Moles/Vol]109 mmol/NSlshob58-753BqzHtysspHuntsville Memorial HospitalComment on above:Performed By: #### CBCA, 96039-9, PINR, 71818-1, CMP, 37913-9 #### [facility] ([id number]) [address] [place] [address], [place] [address]AX1 [Moles/Vol]21 mmol/HFqi88-66IchKhtwzqWood County Hospital Comment on above:Performed By: #### CBCA, 04916-0, PINR, 04113-5, CMP, 72852-7 #### [facility] ([id number]) [address] [place] [address] 36260Bwwwzwmoxd [Mass/Vol]0.78 mg/dLNormal0.40-1.00[facility] [place] [facility] HospitalComment on above:Result Comment: METHOD TRACEABLE TO IDMS STANDARD Performed By: #### KIRA, 29773-8, PINR, 41351-2, CMP, 68389-1 #### [facility] ([id number]) [address] [place] [address] 63924bYOJ (CKD-EPI) NON-RACE DEPENDENT>90Normal>59ProHuntsville Memorial HospitalComment on above:Result Comment: Reported eGFR is based on the CKD-EPI 2020 equation that does not use a race coefficient.Performed By: #### KIRA, 07109-3, PINR, 49860-7, CMP, 82144-2 #### [facility] ([id number]) [address] [place] [address] 94963Kagbvgk [Mass/Vol]102 mg/oWDupb27-50UucYigdfeEast [facility] Regional Hospital Comment on above:Performed By: #### KIRA, 92140-7, PINR, 53298-9, CMP, 20029-1 #### [facility] ([id number]) [address] [place] [address] 35037Ptoxmzdxk [Moles/Vol]3.5 mmol/LNormal3.5-5.0[facility] [place] [facility] HospitalComment on above:Performed By: #### KIRA, 80257-2, PINR, 96489-1, CMP, 71164-2 #### [facility] ([id number]) [address] [place] [address] 24812Sumcwyy [Mass/Vol]7.7 g/dLNormal6.0-8.0[facility] [place] [facility] HospitalComment on above:Performed By: #### CBCA, 47662-5, PINR, 28353-6, CMP, 90752-1 #### [facility] ([id number]) [address] [place] [address] 20519Mymwjf [Moles/Vol]137 mmol/XAkdjlp555-493ApiGbhpgj [facility] HospitalComment on above:Performed By: #### CBCA, 77928-1, PINR, 56364-2, CMP, 10135-8 #### [facility] ([id number]) [address] [place] [address] 88692Tfpr nitrogen [Mass/Vol]14 mg/dLNormal5-23ProHuntsville Memorial HospitalComment on above:Performed By: #### CBCA, 25021-7, PINR, 91754-6, CMP, 88901-6 #### [facility] ([id number]) [address] [place] [address] 59173ZF CTA CHESTon 29-04-2604AQ CTA CHESTCT CTA CHEST Clinical History: Chest pain. Shortness [...] IMPRESSION: No evidence of acute pulmonary embolism. Finalized by Jacob Smith MD on 07/28/2024 2:38 PMNormalProHuntsville Memorial HospitalFibrin D-dimer DDU (PPP) [Mass/Vol]on 07-28-2024D DIMER<150Normal<255 ProMSan Dimas Community HospitalComment on above:Result Comment: Results <255 ng/mL DDU: The presence of a VTE can safely be excluded with a negative D-Dimer result and Wells score. A negative result doesn't exclude the possibility of DIC. The test be repeated along with other diagnostic tests if the patient's symptoms persist or worsen. [email or web address] By: #### CBCA, 41073-0, PINR, 44809-2, CMP, 72139-6 #### [facility] ([id number]) [address] [place] [address] 61965ZTU ( test) IA.rapid Ql (S)on 90-44-1589JULNN PREGNANCYNegativeNormalNEGProHuntsville Memorial HospitalComment on above:Performed By: #### 58230-1 #### [facility] ([id number]) [address] [place] [address] 78361Jicgtkfabrj peptide B [Mass/Vol]on 91-33-1404DGZ NATRIURETIC PEP<5Normal<100.0ProHuntsville Memorial HospitalComment on above:Performed By: #### CBCA, 58959-9, PINR, 64667-3, CMP, 63823-9 #### [facility] ([id number]) [address] [place] [address] 35780VKTYFFR AND INRon 93-26-0973XUJ Coag (PPP) [Relative time]0.9 {INR}Normal0.9-1.2ProMedica Hassler Health FarmComment on above:Performed By: #### CBCA, 51558-6, PINR, 29514-2, CMP, 04275-7 #### [facility] ([id number]) [address] [place] [address] 34328VC Coag (PPP) [Time]10.8 sNormal9.8-13.2ProMedica Hassler Health FarmComment on above:Result Comment: NEW REFERENCE RANGEPerformed By: #### CBCA, 19948-7, PINR, 96334-5, CMP, 10647-8 #### [facility] ([id number]) [address] [place] [address] 99726rDES Coag (PPP) [Time]on 21-60-9533qSHN Coag (Bld) [Time]29 s Mbtagb90-62TfuUqxzcr [facility]ler Health FarmComment on above:Result Comment: NEW REFERENCE RANGEPerformed By: #### CBCA, 13194-4, PINR, 87460-8, CMP, 38363-8 #### [facility] ([id number]) [address] [place] [address] 41438KW BRAIN WO CONTRASTon 27-57-9420XN BRAIN WO CONTRASTMR BRAIN WO CONTRAST INDICATION: History of blurry vision and headaches COMPARISON: None. TECHNIQUE: Sagittal T1, axial T2, axial T2* GRE, axial FLAIR, axial DWI sequences of the brain wereacquired. FINDINGS: No diffusion abnormalities are present. CEREBRUM: [...] electronically signed and approved by the interpreting Radiologist.NormalNot AvailableALL CBC WITH AUTO DIFFon 56-43-2970ZVAZITGZF ABSOLUTE YGDZ6QAGH HealthcareBasophils/100 WBC (Bld)0.2 %0.2 - 2.0 %NOMS HealthcareEosinophils/100 WBC (Bld)0.2 %Low0.9 - 7.0 %NOMS HealthcareErythrocyte distribution width (RBC) [Ratio]13.7 %11.0 - 15.0 %NOMS HealthcareHematocrit (Bld) [Volume fraction]32.2 %Low36.0 - 48.0 %[facility] HospitalHemoglobin (Bld) [Mass/Vol]10.2 g/dLLow12.0 - 16.0 g/dLCooper County Memorial HospitalIMMATURE GRANULOCYTES ABS AUTO0.08HighNOSullivan County Memorial HospitalImmature granulocytes/100 WBC (Bld)0.4 %0.0 - 0.5 % [facility] HospitalInterpretation and review of laboratory resultsAbnoLECOM Health - Corry Memorial HospitalLYMPHOCYTES ABSOLUTE AUTO3.1NOMS HealthcareLymphocytes/100 WBC (Bld) 16.9 %Low20.5 - 60.0 %[facility] CenterH (RBC) [Entitic mass]26 pgLow26.7 - 34.0 pgMineral Area Regional Medical CenterHC (RBC) [Mass/Vol]31.7 g/dL29.9 - 35.2 g/dLCooper County Memorial Hospital MCV (RBC) [Entitic vol]82.1 fL81.0 - 99.0 fLCooper County Memorial HospitalMONOCYTES ABSOLUTE AUTO1.1HighCooper County Memorial HospitalMonocytes/100 WBC (Bld)6.1 %1.7 - 12.0 %[facility] HospitalNEUTROPHILS ABSOLUTE AUTO14.2HighCooper County Memorial HospitalNeutrophils/100 WBC (Bld)76.2 %High43.0 - 75.0 %[facility] Memorial HospitalPlatelet mean volume (Bld) [Entitic vol]9.5 fL9.5 - 13.5 fLCooper County Memorial HospitalTB EO #0NOMoberly Regional Medical Center LNW131HORHMoberly Regional Medical Center RBC3.92LowResearch Medical Center WBC18.6HighCooper County Memorial HospitalCLINISYNC [facility] CBC WITH PLATELET NO DIFFERENTIALon 86-15-9972Nelbndocbja distribution width (RBC) [Ratio]13.2 %11.0 - 15.0 %[facility] Memorial HospitalHematocrit (Bld) [Volume fraction]37.2 %36.0 - 48.0 %[facility] HospitalHemoglobin (Bld) [Mass/Vol]12.0 g/dL12.0 - 16.0 g/dLCooper County Memorial HospitalInterpretation and review of laboratory resultsAbnormDoylestown Health (RBC) [Entitic mass]25.9 pgLow26.7 - 34.0 pgNOMS HealthcareMCHC (RBC) [Mass/Vol]32.3 g/dL29.9 - 35.2 g/dLNOHI HealthcareMCV (RBC) [Entitic vol]80.2 fLLow81.0 - 99.0 fLNOHI HealthcarePlatelet mean volume (Bld) [Entitic vol]9.4 fLLow9.5 - 13.5 fLNOHI HealthcareTBH QHV753 NOMS HealthcareTBH RBC4.64NOHI HealthcareTBH WBC15.9HighCENTRAL VALLEY [facility] HealthcareCLINISYNC [facility] HealthcareTBH DRUG SCREEN RAPID (URINE)on 02-53-2589LRPQLUATTLA SCREEN URINENegativeNEGATIVENOMS HealthcareBARBITURATES SCREEN URINENegativeNEGATIVE NOMS HealthcareBENZODIAZEPINES SCREEN URINENegativeNEGATIVENOMS Healthcare BUPRENORPHINE SCREEN URINENegativeNEGATIVENOMS HealthcareComment on above:DRUG CLASS TEST SYSTEM CUT-OFF CONCENTRATIONS ARE FOLLOWS: AMP (Amphetamine): 500 ng/mL BAR (Barbiturates): 200 ng/mL BZO (Benzodiazepines): 150 ng/mL BUP (Buprenorphine): 10 ng/mL VANESSA (Cocaine): 150 ng/mL mAMP (Methamphetamine): 500 ng/mL MTD (Methadone): 200 ng/mL OPI (Opiates): 100 ng/mL OXY (Oxycodone): 100 ng/mL PCP (Phencyclidine): 25 ng/mL THC (Cannabinoids): 50 ng/mL TCA (Trycyclic Antidepressants): 300 ng/mL CANNABINOID SCREEN URINENegativeNEGATIVENOMS HealthcareCOCAINE SCREEN URINE NegativeNEGATIVENOMS HealthcareMETHADONE SCREEN URINENegativeNEGATIVENOMS HealthcareMETHAMPHETAMINES SCREEN URINENegativeNEGATIVENOMS HealthcareOPIATE SCREEN URINENegativeNEGATIVENOMS HealthcareOXYCODONE SCREEN URINENegative NEGATIVENOMS HealthcarePHENCYCLIDINE SCREEN URINENegativeNEGATIVENOMS Healthcare TRICYCLIC ANTIDEPRESSANT URINENegativeNEGATIVENOMS HealthcareCLINISYNCNOMS HealthcareUS OB BPP W NON-STRESSon 40-53-8162S[address] [address] Ultrasound Report Signed Patient: BRYNN WALLACE MR#: [id number] : 2000 Acct:[id number] Age/Sex: 23 / F ADM Date: 04/26/24 Loc: [facility] 252-[address]: Shaw Rojo D.O. Ordering Physician: Shaw Rojo D.O. Date of Service: 04/26/24 Procedure(s): US OB BPP w non-stress Accession Number(s): [id number] cc: LEAH AZAR ; Shaw Rojo D.O. The [place] [id number] Patient Name: BRYNN WALLACE MRN: [facility]:[id number] date: 2000 Sex: F Assigned Patient Location: [facility] Current Patient Location: [facility] Accession/Order Number: [id number] Exam Date: 04/26/2024 13:00 Report Date: 04/26/2024 13:31 At the request of: SHAW ROJO Procedure: US OB BPP w non-stress [...] Signed By: 04/26/24 1334 DD/ 1331 TD/TT: Marketing Education Teacher:TBHRadiology, Radiologist, MD - 04/26/2024 [place] [address] Ultrasound Report Signed Patient: BRYNN WALLACE MR#: [id number] : 2000 Acct:[id number] Age/Sex: 23 / F ADM Date: 04/26/24 Loc: [facility] [address]: Shaw Rojo D.O. Ordering Physician: Shaw Rojo D.O. Date of Service: 04/26/24 Procedure(s): US OB BPP w non-stress Accession Number(s): [id number] cc: LEAH AZAR ; Shaw Rojo D.O. [place] [address] Patient Name: BRYNN WALLACE MRN: [facility]:[id number] date: 2000 Sex: F Assigned Patient Location: [facility] Current Patient Location: [facility] Accession/Order Number: [id number] Exam Date: 04/26/2024 13:00 Report Date: 04/26/2024 13:31 At the request of: SHAW ROJO Procedure: US OB BPP w non-stress [...] Signed By: 04/26/24 1334 DD/ 1331 TD/TT: Marketing Education Teacher: KELECHI HealthcareRadiology Study observation (narrative)NOMFoster BarreraUS OB BPP W NON-STRESSOrdered By: Radiologist Radiology on 70-66-1831XYRK Tap[employer] Work Phone: Urinalysis macro (dipstick) panel (U)on 04-19-2024 Bilirubin, UANegativeNegative - 4(70) +++ mg/dLNOMS HealthcareBlood, UAPositive Negative - 50 Joey/mcLNOMS HealthcareClarity, UAClearNOMS HealthcareColor, UA YellowNOHI HealthcareGlucose, UANegativeNegative - 2000(110) ++++ mg/dLNOMS HealthcareInterpretation and review of laboratory resultsAbnormalNOHI Healthcare Ketones, UANegativeNegative - 160(16) ++++ mg/dLNOHI HealthcareLeukocytes, UA NegativeNegative - 500+++ Quyen/mcLNOHI HealthcareNitrite, UANegativeNegative - PositiveNOMS HealthcarepH, UA6.55 - 9NOMS HealthcareProtein, UANegativeNegative - 2000(20) ++++ mg/dLNOMS HealthcareSpec Grav, UA1.0251 - 1.03NOHI Healthcare Urobilinogen, UA0.20.2 - 12 mg/dLNOHI HealthcareNOHI HealthcareUS OB GROWTHon 64-00-7675[place] [address] Ultrasound Report Signed Patient: BRYNN WALLACE MR#: [id number] : 2000 Acct:[id number] Age/Sex: 23 / F ADM Date: 04/13/24 Loc: US Attending Dr: Yaritza Portillo Ordering Physician: Yaritza Portillo Date of Service: 04/13/24 Procedure(s): US OB growth Accession Number(s): [id number] cc: Yaritza Portillo; LEAH AZAR [place] [address] Patient Name: BRYNN WALLACE MRN: [facility]:[id number] date: 2000 Sex: F Assigned Patient Location: [place] Current Patient Location: Accession/Order Number: [id number] Exam Date: 04/13/2024 19:00 Report Date: 04/14/2024 [...] nuchal cord. Consider follow-up. Electronically authenticated by: RUFUS REYES Date: 04/14/2024 08:22 Dictated By: Rufus Reyes M.D. Signed By: 04/14/24824 DD/ 1 TD/TT: Marketing Education Teacher:TBHRadiology, Radiologist, - 04/14/2024 [place] [address] Ultrasound Report Signed Patient: BRYNN WALLACE MR#: [id number] : 2000 Acct:[id number] Age/Sex: 23 / F ADM Date: 04/13/24 Loc: [place] Attending Dr: Yaritza Portillo Ordering Physician: Yaritza Portillo Date of Service: 04/13/24 Procedure(s): US OB growth Accession Number(s): [id number] cc: Yaritza Portillo; LEAH AZAR [place] [id number] Patient Name: BRYNN WALLACE MRN: [id number]:[id number] date: 2000 Sex: F Assigned Patient Location: [place] Current Patient Location: Accession/Order Number: [id number] Exam Date: 04/13/2024 19:00 Report Date: 04/14/2024 [...] nuchal cord. Consider follow-up. Electronically authenticated by: RUFUS REYES Date: 04/14/2024 08:22 Dictated By: Rufus Reyes M.D. Signed By: 04/14/24824 DD/ 1 TD/TT: Marketing Education Teacher: KELECHI HealthcareRadiology Study observation (narrative)[facility] HospitalUS OB GROWTHOrdered By: Radiologist Radiology on 44-48-2864FRVA TapF[employer] Work Phone: US OB BPP W NON-STRESSon 30-08-5369[place] [address] Ultrasound Report Signed Patient: BRYNN WALLACE MR#: [id number] : 2000 Acct:[id number] Age/Sex: 23 / F ADM Date: Loc: [facility] 250-[address]: Shaw Rojo D.O. Ordering Physician: Shaw Rojo D.O. Date of Service: 04/11/24 Procedure(s): US OB BPP w non-stress Accession Number(s): [id number] cc: LEAH AZAR ; Shaw Rojo D.O. The [address] [address] Patient Name: BRYNN WALLACE MRN: [id number] date: 2000 Sex: F Assigned Patient Location: [facility] Current Patient Location: [facility] Accession/Order Number: [id number] Exam Date: 04/11/2024 15:20 Report Date: 04/11/2024 15:49 At the request of: SHAW ROJO Procedure: US OB BPP w non-stress [...] biophysical profile score: 8 Electronically authenticated by: RUFUS REYES Date: 04/11/2024 15:49 Dictated By: Rufus Reyes M.D. Signed By: 04/11/24 1551 DD/ 1549 TD/TT: Marketing Education Teacher:LUCINDAHRadiology, Radiologist, MD - 04/11/2024 [place] [address] Ultrasound Report Signed Patient: BRYNN WALLACE MR#: [id number] : 2000 Acct:[id number] Age/Sex: 23 / F ADM Date: Loc: [facility] Attending Dr: Shaw Rojo D.O. Ordering Physician: Shaw Rojo D.O. Date of Service: 04/11/24 Procedure(s): US OB BPP w non-stress Accession Number(s): [id number] cc: LEAH AZAR ; Shaw Rojo D.O. The [address] [address] Patient Name: BRYNN WALLACE MRN: [facility]:[id number] date: 2000 Sex: F Assigned Patient Location: [facility] Current Patient Location: [facility] Accession/Order Number: [id number] Exam Date: 04/11/2024 15:20 Report Date: 04/11/2024 15:49 At the request of: SHAW ROJO Procedure: US OB BPP w non-stress [...] biophysical profile score: 8 Electronically authenticated by: RUFUS REYES Date: 04/11/2024 15:49 Dictated By: Rufus Reyes M.D. Signed By: 04/11/24 1554 DD/ 1540 TD/TT: Marketing Education Teacher: [facility]PITALFoster HealthcareRadiology Study observation (narrative)NOMS HealthcareUS OB BPP W NON-STRESSOrdered By: Radiologist Radiology on 97-84-4547PSYS Healthcare Work Phone: Urinalysis macro (dipstick) panel (U)on 04-11-2024 Bilirubin, UAPositiveNegative - 4(70) +++ mg/dLNOMS HealthcareComment on above: smallBlood, UANegativeNegative - 50 Joey/mcLNOMS HealthcareClarity, UAClearNOMS HealthcareColor, UAYellowNOMS HealthcareGlucose, UANegativeNegative - 1999(110) ++++ mg/dLNOMS HealthcareInterpretation and review of laboratory resultsAbnormal NOM HealthcareKetones, UAPositiveNegative - 160(16) ++++ mg/dLNOMS Healthcare Comment on above:traceLeukocytes, UANegativeNegative - 500+++ Quyen/mcLNOMS HealthcareNitrite, UANegativeNegative - PositiveNOMS HealthcarepH, UA65 - 9NOMS HealthcareProtein, UANegativeNegative - 2000(20) ++++ mg/dLNOMS HealthcareSpec Grav, UA1.0251 - 1.03NOMS HealthcareUrobilinogen, UA0.20.2 - 12 mg/dLNOMS HealthcareNOMS HealthcareALL MISCELLANEOUS TESTon 60-86-1836QBBEKFNVQAHRM TEST COMMENT.NOMS HealthcareComment on above:Test Ordered: [id number] Strep Gp B HERBER+Rflx Strep Gp B HERBER+Rflx Negative CB Reference Range: Negative Centers for Disease Control and Prevention (CDC) and [place] Congress of Obstetricians and Gynecologists (ACOG) guidelines [...] resistance to clindamycin is noted. Performed at: [facility] [address] [id number] [employer] Supervisor: Dc Mtz PhD, Phone: [phone] VAG/REC 167679 Group B Streptococcus Colonization Detection, HERBER With Refle CLINISYNCCENTRAL VALLEY [facility] HealthcareUrinalysis macro (dipstick) panel (U)on 04-04-2024 Bilirubin, UANegativeNegative - 4(70) +++ mg/dLNOMS HealthcareBlood, UANegative Negative - 50 Joey/mcLNOMS HealthcareClarity, UAClearNOMS HealthcareColor, UA YellowNOMS HealthcareGlucose, UANegativeNegative - 2000(110) ++++ mg/dLNOMS HealthcareInterpretation and review of laboratory resultsNormalNOHI Healthcare Ketones, UANegativeNegative - 160(16) ++++ mg/dLNOMS HealthcareLeukocytes, UA NegativeNegative - 500+++ Quyen/mcLNOMS HealthcareNitrite, UANegativeNegative - PositiveNOMS HealthcarepH, UA5.55 - 9NOMS HealthcareProtein, UANegativeNegative - 2000(20) ++++ mg/dLNOMS HealthcareSpec Grav, UA1.021 - 1.03NOMS Healthcare Urobilinogen, UA1.00.2 - 12 mg/dLNOHI HealthcareNOMS HealthcareUrinalysis macro (dipstick) panel (U)on 56-58-0187Pfzzbzpii, UANegativeNegative - 4(70) +++ mg/dL NOMS HealthcareBlood, UANegativeNegative - 50 Joey/mcLNOHI HealthcareClarity, UA ClearNOMS HealthcareColor, UAYellowNOMS HealthcareGlucose, UANegativeNegative - 2000(110) ++++ mg/dLNOHI HealthcareInterpretation and review of laboratory resultsAbnormalNOMS HealthcareKetones, UANegativeNegative - 160(16) ++++ mg/dL NOMS HealthcareLeukocytes, UANegativeNegative - 500+++ Quyen/mcLNOHI Healthcare Nitrite, UANegativeNegative - PositiveNOMS HealthcarepH, UA5.55 - 9NOMS HealthcareProtein, UANegativeNegative - 2000(20) ++++ mg/dLNOHI HealthcareSpec Grav, UA1.2020 - 1.03NOHI HealthcareUrobilinogen, UA1.00.2 - 12 mg/dLNOHI HealthcareNOMS HealthcareURINE CULTURE, ROUTINEon 43-31-0308Qgfcscyp identified Cx Nom (U) Urine Culture, Routine NOMS HealthcareBacteria identified Cx Nom (U)Mixed urogenital floraNOHI HealthcareBacteria identified Cx Nom (U)25,000-50,000 colony forming units per mLNOMS HealthcareBacteria identified Cx Nom (U)Performed at: - [facility]Select [facility] NOMS HealthcareBacteria identified Cx Nom (U)[address] [place], [place] [id number] HealthcareBacteria identified Cx Nom (U)[employer] Supervisor: Dc Mtz PhD, Phone: [phone] HealthcareCLINISYNCNOMS HealthcareTB UA (CLEAN/CATCH) INTERNAL CONTROL SPECIALIST/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on 79-03-7068BVCOYUAPP URINENegativeNEGATIVENOMS HealthcareBLOOD URINESMALLAbnormalNEGATIVENOMS HealthcareClarity (U)CLEARCLEAR NOMS HealthcareColor (U)YELLOWYELLOWNOMS HealthcareGLUCOSE URINE UANegative NEGATIVE mg/dLNOHI HealthcareInterpretation and review of laboratory results AbnormalNOMS HealthcareKetones Ql (U)TRACEAbnormalNEGATIVE mg/dLNOHI Healthcare Leukocyte esterase Test strip Ql (U)SMALLAbnormalNEGATIVENOMS HealthcareNITRITE URINENegativeNEGATIVENOHI HealthcarepH (U)6.0 [pH]5.0 - 9.0NOHI Healthcare PROTEIN URINETRACENEG/TRACE mg/dLNOMS HealthcareSPECIFIC GRAVITY URINE1.0251.005 - 1.025NOHI HealthcareURINE MICROSCOPIC INDICATEDYESNOHI HealthcareUROBILINOGEN URINE1.0 EU/dL0.2 - 1.0 EU/dLNOMS HealthcareCLINISYNCNOMS HealthcareUS OB BPP W NON-STRESSon [id number] [address] Ultrasound Report Signed Patient: BRYNN WALLACE MR#: [id number] : 2000 Acct:[id number] Age/Sex: 23 / F ADM Date: Loc: [place] [address]- Attending Dr: Shaw Rojo D.O. Ordering Physician: Shaw Rojo D.O. Date of Service: 03/15/24 Procedure(s): US OB BPP w non-stress Accession Number(s): [id number] cc: LEAH AZAR ; Shaw Rojo D.O. [place] [address] Patient Name: BRYNN WALLACE MRN: [id number] date: 2000 Sex: F Assigned Patient Location: [facility] Current Patient Location: [facility] Accession/Order Number: [id number] Exam Date: 03/15/2024 15:40 Report Date: 03/15/2024 16:41 At the request of: SHAW ROJO Procedure: US OB BPP w non-stress [...] biophysical profile score: 8 Electronically authenticated by: RUFUS REYES Date: 03/15/2024 16:41 Dictated By: Rufus Reyes M.D. Signed By: 03/15/241642 DD/ 40 TD/TT: Marketing Education Teacher:TBHRadiology, Radiologist, - 03/15/2024 [place] [address] Ultrasound Report Signed Patient: BRYNN WALLACE MR#: [id number] : 2000 Acct:[id number] Age/Sex: 23 / F ADM Date: Loc: [facility] 250- Attending Dr: Shaw Rojo D.O. Ordering Physician: Shaw Rojo D.O. Date of Service: 03/15/24 Procedure(s): US OB BPP w non-stress Accession Number(s): [id number] cc: LEAH AZAR ; Shaw Rojo D.O. [place] [address] Patient Name: BRYNN WALLACE MRN: [id number] date: 2000 Sex: F Assigned Patient Location: [facility] Current Patient Location: [facility] Accession/Order Number: [id number] Exam Date: 03/15/2024 15:40 Report Date: 03/15/2024 16:41 At the request of: SHAW ROJO Procedure: US OB BPP w non-stress [...] biophysical profile score: 8 Electronically authenticated by: RUFUS REYES Date: 03/15/2024 16:41 Dictated By: Rufus Reyes M.D. Signed By: 03/15/241642 DD/ 40 TD/TT: Marketing Education Teacher: KELECHI HealthcareRadiology Study observation (narrative)NOMS HealthcareUS OB BPP W NON-STRESSOrdered By: Radiologist Radiology on 06-14-4403[facility] Work Phone: Urinalysis macro (dipstick) panel (U)on 03-08-2024 Bilirubin, UANegativeNegative - 4(70) +++ mg/dLNOMS HealthcareBlood, UAPositive Negative - 50 Joey/mcLNOMS HealthcareComment on above:trace-intactClarity, UA ClearNOMS HealthcareColor, UAYellowNOMS HealthcareGlucose, UANegativeNegative - 2000(110) ++++ mg/dLNOMS HealthcareInterpretation and review of laboratory resultsAbnormalNOMS HealthcareKetones, UANegativeNegative - 160(16) ++++ mg/dL NOMS HealthcareLeukocytes, UANegativeNegative - 500+++ Quyen/mcLNOMS Healthcare Nitrite, UANegativeNegative - PositiveNOMS HealthcarepH, UA7.55 - 9NOMS HealthcareProtein, UANegativeNegative - 2000(20) ++++ mg/dLNOMS HealthcareSpec Grav, UA1.021 - 1.03NOMS HealthcareUrobilinogen, UA0.20.2 - 12 mg/dLNOMS HealthcareNOMS HealthcareUS OB GROWTHon 67-28-4253[place] [address] Ultrasound Report Signed Patient: BRYNN WALLACE MR#: [id number] : 2000 Acct:[id number] Age/Sex: 23 / F ADM Date: 02/23/24 Loc: US Attending Dr: Shaw Rojo D.O. Ordering Physician: Shaw Rojo D.O. Date of Service: 02/23/24 Procedure(s): US OB growth Accession Number(s): [id number] cc: LEAH AZAR ; Shaw Rojo D.O. The [place] [address] Patient Name: BRYNN WALLACE MRN: [facility]:[id number] date: 2000 Sex: F Assigned Patient Location: US Current Patient Location: Accession/Order Number: [id number] Exam Date: 02/23/2024 19:12 Report Date: 02/24/2024 08:02 At the request of: SHAW ROJO Procedure: US OB growth EXAMINATION: US [...] M.D. Signed By: 02/24/24804 DD/ 1 TD/TT: Marketing Education Teacher:KARSONadiology, Radiologist, - 02/24/2024 [place] [address] Ultrasound Report Signed Patient: BRYNN WALLACE MR#: [id number] : 2000 Acct:[id number] Age/Sex: 23 / F ADM Date: 02/23/24 Loc: US Attending Dr: Shaw Rojo D.O. Ordering Physician: Shaw Rojo D.O. Date of Service: 02/23/24 Procedure(s): US OB growth Accession Number(s): [id number] cc: LEAH AZAR ; Shaw Rojo D.O. [place] [id number] Patient Name: BRYNN WALLACE MRN: [facility]:[id number] date: 2000 Sex: F Assigned Patient Location: Current Patient Location: Accession/Order Number: [id number] Exam Date: 02/23/2024 19:12 Report Date: 02/24/2024 08:02 At the request of: SHAW ROJO Procedure: US OB growth EXAMINATION: US [...] M.D. Signed By: 02/24/24804 DD/ 1 TD/TT: Marketing Education Teacher: KELECHI HealthcareRadiology Study observation (narrative)NOMFoster HealthcareUS OB GROWTHOrdered By: Radiologist Radiology on 22-17-9971PF[facility] Work Phone: Urinalysis macro (dipstick) panel (U)on 02-23-2024 Bilirubin, UANegativeNegative - 4(70) +++ mg/dLNOMS HealthcareBlood, UANegative Negative - 50 Joey/mcLNOMS HealthcareClarity, UAClearNOMS HealthcareColor, UA YellowNOMS HealthcareGlucose, UANegativeNegative - 2000(110) ++++ mg/dLNOMS HealthcareInterpretation and review of laboratory resultsAbnormalNOMS Healthcare Ketones, UAPositiveNegative - 160(16) ++++ mg/dLNOMS HealthcareComment on above: 15 mgLeukocytes, UATraceNegative - 500+++ Quyen/mcLNOMS HealthcareNitrite, UA NegativeNegative - PositiveNOMS HealthcarepH, UA6.55 - 9NOMS HealthcareProtein, UATraceNegative - 2000(20) ++++ mg/dLNOMS HealthcareSpec Grav, UA1.031 - 1.03 NOMS HealthcareUrobilinogen, UA1.00.2 - 12 mg/dLNOMS HealthcareNOMS Healthcare Urinalysis macro (dipstick) panel (U)on 74-69-8975Veuypjgll, UANegativeNegative - 4(70) +++ mg/dLNOMS HealthcareBlood, UANegativeNegative - 50 Joey/mcLNOMS HealthcareClarity, UAClearNOMS HealthcareColor, UAYellowNOMS HealthcareGlucose, UANegativeNegative - 2000(110) ++++ mg/dLNOMS HealthcareInterpretation and review of laboratory resultsNormalNOHI HealthcareKetones, UANegativeNegative - 160(16) ++++ mg/dLNOMS HealthcareLeukocytes, UANegativeNegative - 500+++ Quyen/mcL NOMS HealthcareNitrite, UANegativeNegative - PositiveNOMS HealthcarepH, UA75 - 9 NOMS HealthcareProtein, UANegativeNegative - 2000(20) ++++ mg/dLNOMS Healthcare Spec Grav, UA1.021 - 1.03NOMS HealthcareUrobilinogen, UA0.20.2 - 12 mg/dLNOHI HealthcareNOMS HealthcareGLUCOSE 1 HOURon 16-71-9942Uondvty [Mass/Vol]136 mg/dL HighNINF - 130 mg/dLNOMS HealthcareInterpretation and review of laboratory resultsAbnormalNOHI HealthcareCLINISYNCNOMS HealthcareUrinalysis macro (dipstick) panel (U)on 59-21-1548Xurecomdm, UANegativeNegative - 4(70) +++ mg/dL NOMS HealthcareBlood, UANegativeNegative - 50 Joey/mcLNOMS HealthcareClarity, UA ClearNOMS HealthcareColor, UAYellowNOMS HealthcareGlucose, UANegativeNegative - 2000(110) ++++ mg/dLNOHI HealthcareInterpretation and review of laboratory resultsAbnormalNOHI HealthcareKetones, UANegativeNegative - 160(16) ++++ mg/dL NOMS HealthcareLeukocytes, UAPositiveNegative - 500+++ Quyen/mcLNOMS Healthcare Comment on above:smallNitrite, UANegativeNegative - PositiveNOMS HealthcarepH, UA7.05 - 9NOMS HealthcareProtein, UAPositiveNegative - 2000(20) ++++ mg/dLNOHI HealthcareComment on above:30Spec Grav, UA1.0251 - 1.03NOHI Healthcare Urobilinogen, UA1.00.2 - 12 mg/dLNOHI HealthcareNOHI HealthcareAFP, SERUM, OPEN SPINA BIFIDAon 22-52-4667IRO MOM0.78.NOMS HealthcareAFP VALUE38.1 ng/mL.NOMS HealthcareCOMMENT:Comment.[facility] HealthcareComment on above:Nereyda Laguna, Ph.D., [facility] Director References: Available Upon Request. Multiples Of Median Cutoffs For AFP Elevations Garcia 2.5 Black 2.8 IDD 2.0 Twins 4.5 Abbreviation Definitions IDD - Insulin Dep Diabetes OSBR - Open Spina Bifida Risk For further inquiries contact [facility] [facility] [facility] at [phone]. This test was developed and its performance characteristics determined by [employer]. It has not been cleared or approved by the Food and Drug Administration. Performed at: [facility] ArcSoftsainte [facility] [address]P [address] [facility], [place], [place] [address] [employer] Supervisor: Ezra Leo [facility], Phone: [phone] GEST. AGE ON COLLECTION DATE20.4. [facility] HealthcareGESTAT. AGE BASED ON Ultrasound.[facility] HospitalComment on above:20.4 on 12/14/2023 Recalculations are not recommended when gestational dating by LMP and ultrasound are within 10 days. INSULIN DEP DIABETESNo.[facility] HealthcareINTERPRETATIONComment.[facility] Comment on above:Interpretation: Screen Negative This result is screen negative for [...] Customer Services to discuss available options. The [employer] recommends amniocentesis be offered to women age 35 and older. MATERNAL AGE AT EDD23.0. yrC[facility] HealthcareMULTIPLE GESTATIONNo.[facility] OSBR RISK 1 [id number].[facility] HospitalRACECaucasian.[facility] HospitalRESULTSReport. [facility] HospitalTEST RESULTS:Negative.[facility] HospitalRphnbtdhueUUUSAN771. lbDeer Park Hospital HealthcarePREGNANCY N N ULTRASOUND [id number] 3 20 N 1 Y 219 N N N N N White/ CLINISYNCCooper County Memorial HospitalNo Panel InformationOrdered By: Radiologist Radiology on 39-56-9083IBYWCooper County Memorial Hospital Work Phone: No Panel Informationon 98-52-1851Raynvuyfp Study observation (narrative)[facility] HospitalURETHRITIS/DISCHARGE PLUS VAGINITIS (HTRX) on 55-55-9745UUKJNBLQP GNAVNBX70.553AbnormalCENTRAL VALLEY [facility] HealthcareATOPOBIUM VAGINAE DetectedAbnormCleveland Clinic Avon Hospital HealthcareBVAB 2,3 (BACTERIAL VAGINOSIS ASSOCIATED BACTERIA 2, 3); MOBILUNCUS SPP18.812AbnormalCooper County Memorial HospitalBVAB 2,3 (BACTERIAL VAGINOSIS ASSOCIATED BACTERIA 2, 3); MOBILUNCUS SPPDetectedAbnormCleveland Clinic Avon Hospital HealthcareCANDIDA ALBICANS, PARAPSILOSIS, TROPICALIS0.000NOMS HealthcareCANDIDA ALBICANS, PARAPSILOSIS, TROPICALISNot detectedNOMS HealthcareCANDIDA GLABRATA0.000NOMS HealthcareCANDIDA GLABRATANot detectedNOMS HealthcareCANDIDA KRUSEI0.000NOMS HealthcareCANDIDA KRUSEINot detectedNOMS HealthcareCHLAMYDIA TRACHOMATIS0.000 NOMS HealthcareCHLAMYDIA TRACHOMATISNot detectedNOMS HealthcareERMB, C; MEFA 18.831AbnormalNOMS HealthcareERMB, C; MEFADetectedAbnormalNOMS Healthcare GARDNERELLA TASVXUTUK71.173AbnormalNOMS HealthcareGARDNERELLA VAGINALISDetected AbnormalNOMS HealthcareInterpretation and review of laboratory resultsAbnormal NOMS HealthcareMEGASPHAERA (TYPES 1, 2)19.768AbnormalNOMS HealthcareMEGASPHAERA (TYPES 1, 2)DetectedAbnormalNOMS HealthcareMYCOPLASMA GENITALIUM0.000NOMS HealthcareMYCOPLASMA GENITALIUMNot detectedNOMS HealthcareNEISSERIA GONORRHOEAE 0.000NOMS HealthcareNEISSERIA GONORRHOEAENot detectedNOMS HealthcareTET B, TET M 26.704AbnormalNOMS HealthcareTET B, TET MDetectedAbnormalNOMS Healthcare TRICHOMONAS VAGINALIS0.000NOMS HealthcareTRICHOMONAS VAGINALISNot detectedNOMS HealthcareNOMS HealthcareUS OB ANATOMYon 12-74-4789[address] [address] Ultrasound Report Signed Patient: BRYNN WALLACE MR#: [id number] : 2000 Acct:[id number] Age/Sex: 23 / F ADM Date: 12/15/23 Loc: US Attending Dr: Yaritza Portillo Ordering Physician: Yaritza Portillo Date of Service: 12/15/23 Procedure(s): US OB anatomy Accession Number(s): [id number] cc: Yaritza Portillo; LEAH AZAR [address] [address] Patient Name: BRYNN WALLACE MRN: [id number] date: 2000 Sex: F Assigned Patient Location: US Current Patient Location: Accession/Order Number: [id number] Exam Date: 12/15/2023 19:05 Report Date: 12/16/2023 [...] with growth detailed above. Electronically authenticated by: RUFUS REYES Date: 12/16/2023 06:15 Dictated By: Rufus Reyes M.D. Signed By: 12/16/23617 DD/ 4 TD/TT: Marketing Education Teacher:TBHRadiology, Radiologist, - 12/16/[address] [address] Ultrasound Report Signed Patient: BRYNN WALLACE MR#: [id number] : 2000 Acct:[id number] Age/Sex: 23 / F ADM Date: 12/15/23 Loc: US Attending Dr: Yaritza Portillo Ordering Physician: Yaritza Portillo Date of Service: 12/15/23 Procedure(s): US OB anatomy Accession Number(s): [id number] cc: Yaritza Portillo; LEAH AZAR [address] [address] Patient Name: BRYNN WALLACE MRN: [facility]:[id number] date: 2000 Sex: F Assigned Patient Location: US Current Patient Location: Accession/Order Number: [id number] Exam Date: 12/15/2023 19:05 Report Date: 12/16/2023 [...] with growth detailed above. Electronically authenticated by: RUFUS REYES Date: 12/16/2023 06:15 Dictated By: Rufus Reyes M.D. Signed By: 12/16/23617 DD/ 4 TD/TT: Marketing Education Teacher: KELECHI Ortega OB CERVICAL LENGTHon 09-93-6054[place] [address] Ultrasound Report Signed Patient: BRYNN WALLACE MR#: [id number] : 2000 Acct:[id number] Age/Sex: 23 / F ADM Date: 12/15/23 Loc: US Attending Dr: Yaritza Portillo Ordering Physician: Yaritza Portillo Date of Service: 12/15/23 Procedure(s): US OB cervical length Accession Number(s): [id number] cc: Yaritza Portillo; LEAH AZAR [place] [address] Patient Name: BRYNN WALLACE MRN: [id number]:[id number] date: 2000 Sex: F Assigned Patient Location: US Current Patient Location: Accession/Order Number: [id number] Exam Date: 12/15/2023 19:05 Report Date: 12/16/2023 [...] with growth detailed above. Electronically authenticated by: RUFUS REYES Date: 12/16/2023 06:15 Dictated By: Rufus Reyes M.D. Signed By: 12/16/23617 DD/ 4 TD/TT: Marketing Education Teacher:TBHRadiology, Radiologist, MD - 12/16/2023 [place] [address] Ultrasound Report Signed Patient: BRYNN WALLACE MR#: [id number] : 2000 Acct:[id number] Age/Sex: 23 / F ADM Date: 12/15/23 Loc: US Attending Dr: Yaritza Portillo Ordering Physician: Yaritza Portillo Date of Service: 12/15/23 Procedure(s): US OB cervical length Accession Number(s): [id number] cc: LEAH Bah [address] [place] [id number] Patient Name: BRYNN WALLACE MRN: [id number]:[id number] date: 2000 Sex: F Assigned Patient Location: US Current Patient Location: Accession/Order Number: [id number] Exam Date: 12/15/2023 19:05 Report Date: 12/16/2023 [...] with growth detailed above. Electronically authenticated by: RUFUS REYES Date: 12/16/2023 06:15 Dictated By: Rufus Reyes M.D. Signed By: 12/16/23617 DD/ 4 TD/TT: Marketing Education Teacher: KELECHI BarreraCytology Cervical or vaginal smear or scraping studyon 12-14-2023 KELECHI HealthcareUrinalysis macro (dipstick) panel (U)on 51-77-0562Yrkascruo, UA NegativeNegative - 4(70) +++ mg/dLNOMS HealthcareBlood, UANegativeNegative - 50 Joey/mcLNOMS HealthcareClarity, UAClearNOMS HealthcareColor, UAYellowNOMS HealthcareGlucose, UANegativeNegative - 2000(110) ++++ mg/dLNOMS Healthcare Interpretation and review of laboratory resultsAbnormalNOMS HealthcareKetones, UAPositiveNegative - 160(16) ++++ mg/dLNOMS HealthcareComment on above:trace Leukocytes, UANegativeNegative - 500+++ Quyen/mcLNOMS HealthcareNitrite, UA NegativeNegative - PositiveNOMS HealthcarepH, UA6.55 - 9NOMS HealthcareProtein, UANegativeNegative - 2000(20) ++++ mg/dLNOMS HealthcareSpec Grav, UA1.0101 - 1.03NOMS HealthcareUrobilinogen, UA0.20.2 - 12 mg/dLNOMS HealthcareNOMS HealthcareCoding Summaryon 52-79-1363Efotfp SummaryHTMLBase 64 EeicggthENs4eRi+PGhlYWQ+QK8RFMIxU48taSDdwC7yA9VVJPqPQmcdSTISTWlRDxUpvhCqVK3gmZDx ZXJu [file] b2x (more content not included)...[facility] Urineon 10-08-2023 Urine45,000 cfu/ml Staphylococcus epidermidis ORGANISM Staepi SUSCEPTIBILITY ORGANISM ID: 1 ANTIBIOTIC INTERPRETATION CESILIA STATUS [...] Tri/Sulf S <=0.5/9.5 Verified Vanc S 2 VerifiedNormalScci Hospital Lima HospitalComment on above:Performed By: #### [id number], [id number], [id number] #### [facility] (DEFAULT) [address] [place] [address]69[address]IItVa Screen LCon 10-30-8373AYhYt Screen LCNegativeInvalid Interpretation CodeNegativeFayette County Memorial HospitalComment on above:Result Comment: Performed At: [address] [id number] Bibi Irwin PhD Ph:[phone] By: #### [id number] #### [facility] (DEFAULT) [address] [place] [address] 12480RNC Antibody [facility] 15-31-5004Csc C Virus Ab LCNon-Reactive Invalid Interpretation CodeNon ReactiveFayette County Memorial HospitalComment on above:Result Comment: HCV antibody alone does not differentiate between previously resolved infection and active infection. Equivocal and Reactive HCV antibody results should be followed up with an HCV RNA test to support the diagnosis of active HCV infection. Performed At: [address] [id number] Bibi Irwin PhD Ph:[phone] By: #### [id number] #### [facility] (DEFAULT) [address] [place] [address] 46519EDM 4th Gen Screen w Reflex [facility] 72-92-9890NVV Scr 4th Gen LCNon-ReactiveInvalid Interpretation CodeNon ReactiveFayette County Memorial HospitalComment on above:Result Comment: HIV Negative HIV-1/HIV-2 antibodies and HIV-1 p24 antigen were NOT detected. There is no laboratory evidence of HIV infection. Performed At: [address] [id number] Bibi Irwin PhD Ph:[phone] By: #### [id number] #### [facility] (DEFAULT) [address] [place] [address] 01624LCM, Rfx Qn RPR/Confirm TP LCon 67-29-5477JBD LC Non-ReactiveInvalid Interpretation CodeNon ReactiveScci Hospital Lima HospitalComment on above:Result Comment: Performed At: [facility] [address] [place], [place] [id number] Bibi Irwin PhD Ph:[phone] By: #### [id number] #### [facility] (DEFAULT) [address] [place] [address] 38069Pylrsht Antibodies, IgG LCon 27-01-3493Jyabrgq Antibodies, IgG LC1.90 indexInvalid Interpretation CodeImmune >0.99[facility] HospitalComment on above:Result Comment: Non-immune <0.90 Equivocal 0.90 - 0.99 Immune >0.99 Performed At: [facility] [address] [place], [place] [id number] Bibi Irwin PhD Ph:[phone] By: #### [id number] #### [facility] (DEFAULT) [address] [place] [address] 06349.Auto Diff 1on 55-88-1925Uyxl Dickson %4 %Normal1-12F[facility] County Memorial HospitalComment on above:Performed By: #### [id number], 25261029, 5088200, 87929133, 0824189486, 0776828, 75130961, 58736602, 41726412, 46837654 #### [facility] (DEFAULT) [address] [place] [address] 45085Bsng Abs#0.0 d10Awdxqb7.0-0.2[facility] HospitalComment on above:Performed By: #### [id number], 80388084, 7817238, 81060633, 4775366867, 9944463, 34112925, 01000594, 59566746, 16402977 #### [facility] (DEFAULT) [address] [place] [address] 14479Emicvqjwb/100 WBC (Bld)0.4 %Normal0.2-2.0[facility] Comment on above:Performed By: #### [id number], 03394810, 3926984, 91937055, 0420408341, 2204768, 57256697, 76303403, 78061181, 97306381 #### [facility] (DEFAULT) [address] [place] [address] 68325Paq Abs#0.0 n28Telgbi4.0-0.4Magrfisher-titus medical center HospitalComment on above:Performed By: #### [id number], 50491126, 3786216, 84379770, 6374672333, 2005805, 74862430, 60313477, 02756622, 55351512 #### [facility] (DEFAULT) [address] [place] [address] 90233Jpaaqgusrpv/100 WBC (Bld)0.3 %Low0.9-4.0[facility] Comment on above:Performed By: #### [id number], 97524643, 9435425, 05401357, 3309113725, 2009378, 12311468, 56883361, 99793352, 79307180 #### [facility] [address] [place] [address] 764[address]Ouclj Abs#1.5 u81Zneegh3.3-2.9[facility] HospitalComment on above:Performed By: #### 1109602435, 71843973, 2500246, 76381173, 0903357271, 0745074, 37469812, 39306865, 08677872, 33164865 #### [facility] [address] [place] [address] 29520Rupanjnqzkv/100 WBC (Bld)13 %Gzn11-15HibosampFayette County Memorial Hospital Comment on above:Performed By: #### [id number], 42728405, 7085090, 68492716, 9414680464, 9097181, 24032191, 83270386, 40204958, 67686114 #### [facility] (DEFAULT) [address] [place] [address] 36630Hznk Abs#0.5 l81Twcgzs1.0-0.8[facility] HospitalComment on above:Performed By: #### 3083173416, 09467706, 9646398, 08252877, 9740179510, 8267639, 48054230, 82304547, 34064477, 76294289 #### [facility] (DEFAULT) [address] [place] [address] 67182Egdm Abs#9.8 j10Oizs8.5-9.2MAvita Health System Galion HospitalComment on above:Performed By: #### [id number], 13370841, 7497379, 79179383, 2916287723, 3615582, 73017526, 86472677, 51860725, 58725585 #### [facility] (DEFAULT) [address] [place] [address] 32490Dwathlmbqub/100 WBC (Bld)82 %Gzoslc08-58Jjrmmvfu Hospital Comment on above:Performed By: #### [id number], 51119915, 2134012, 94579886, 3851319416, 5496382, 70553136, 03396650, 21375189, 63849329 #### [facility] (DEFAULT) [address] [place] [address] 06543ZXFEfhz 73-42-3724ZWV and group Nom (Bld)Hx Check: Not Found Anti-A: 0 Anti-B: 0 Anti-D: 0 DCon: NT A1: 4+ B: 4+ ABORh Interp: O NEGInvalid Interpretation [facility] HospitalComment on above: Performed By: #### [id number], 80090521, 9432950, 06099904, 4187024923, 7291725, 94342708, 01850482, 86027215, 71488675 #### [facility] (DEFAULT) [address] [place] [address] 67655GHXVq Retypeon 61-51-4065UFL and group Nom (Bld)Ordered by Discern. Anti-A: 0 Anti-B: 0 Anti-D: 0 DCon: NT A1: 4+ B: 3+ ABORh Retype: O NEGInvalid Interpretation [facility] HospitalComment on above: Performed By: #### [id number], 69234793, 3079028, 56464514, 3964615130, 0822966, 18374227, 23580406, 89323981, 62092490 #### [facility] (DEFAULT) [address] [place] [address] 23295ADEW Gelon 62-72-6742SBYQ GelNegativeNormRegency Hospital CompanyComment on above:Performed By: #### [id number] #### [facility] (DEFAULT) [address] [place] [address] 52049QNP w/ Auto Diffon 21-08-5239Paaqtwgggdk distribution width (RBC) [Ratio]13.3 %Mtvshj61.5-15.0F[facility] HospitalComment on above: Performed By: #### 8760579391, 03656493, 5843650, 02118801, 0583934285, 5614904, 67621419, 54250601, 14823890, 58341132 #### [facility] (DEFAULT) [address] [place] [address] 12446Ghnnmtwmmn (Bld) [Volume fraction]41.2 %High33.7-40.4 [facility] HospitalComment on above:Performed By: #### 0448170946, 76655850, 4786609, 45984049, 0626688431, 9853743, 87358745, 21208525, 53703363, 82561336 #### [facility] (DEFAULT) [address] [place] [address] 06162Twfmtndlyf (Bld) [Mass/Vol]13.6 g/xOOdcqyq67.3-15.9 [facility] HospitalComment on above:Performed By: #### 0444367663, 51695939, 3527493, 85846640, 9900600047, 5748990, 49886646, 71249735, 14865506, 40565020 #### [facility] (DEFAULT) [address] [place] [address] 77667Sns Diff?AutoInvalid Interpretation [facility] Comment on above:Performed By: #### 3911049774, 36334182, 7457881, 28851646, 5089981933, 7726474, 78394986, 46216164, 80922658, 61715545 #### [facility] (DEFAULT) [address] [place] [place] [address] (RBC) [Entitic mass]28 kiRkztgt78-86K[facility]up[facility] Comment on above:Performed By: #### 6010682232, 27413727, 2941552, 46061257, 1552041740, 5115019, 40500729, 11051634, 57514683, 90178267 #### [facility] (DEFAULT) [address] [place] [address] (RBC) [Mass/Vol]33 g/vQAzsvhl88-32Yxiwkdsx Hospital Comment on above:Performed By: #### 7570475296, 37109059, 3409713, 15140829, 3611579777, 8656968, 73854225, 76978849, 92775258, 26108617 #### [facility] (DEFAULT) [address] [place] [address] 17928PJQ (RBC) [Entitic vol]86 lNIzdeio22-656Kqcopkfr Hospital Comment on above:Performed By: #### 4671988013, 93218494, 8302979, 77303782, 1794947027, 6230197, 20220586, 85042770, 37187987, 22236423 #### [facility] (DEFAULT) [address] [place] [address] 49777Etjwlvjg052 o56Ftdksc421-930Hvyiuwoa HospitalComment on above:Performed By: #### 2283506622, 05516116, 6021548, 68609864, 8948971700, 1946508, 66201640, 55914169, 17728629, 08951645 #### [facility] (DEFAULT) [address] [place] [address] 64411Xfdbnaug mean volume (Bld) [Entitic vol]8.4 fLNormal 6.3-10.2MAvita Health System Galion HospitalComment on above:Performed By: #### 9066558610, 31544279, 9623257, 77187932, 6940137995, 7083970, 19697994, 20683910, 71721768, 33514071 #### [facility] (DEFAULT) [address] [place] [address] 97182MQQ2.79 i11Kltliw6.70-5.30[facility] HospitalComment on above:Performed By: #### 4020451248, 27972284, 9437105, 10549793, 8556949253, 6303678, 30523951, 72113978, 78362284, 46612335 #### [facility] (DEFAULT) [address] [place] [address] 79686GXZ45.8 g70Cike1.5-10.5[facility] HospitalComment on above: Performed By: #### 8904021592, 02049662, 9136018, 88420307, 3113906765, 8944500, 70285646, 51636936, 31493625, [id number] #### [facility] (DEFAULT) [address] [place] [address] [id number] Standardon 10-06-2023.Hb15.7Invalid Interpretation [facility] HospitalComment on above:Performed By: #### [id number], [id number], [id number], [id number], [id number], 1469921, 05982849, 66591319, [id number], [id number] #### [facility] (DEFAULT) [address] [place] [address] 99271.Hgb A1c0.45 g/dLInvalid Interpretation CodeScci Hospital Lima HospitalComment on above:Performed By: #### [id number], [id number], [id number], [id number], [id number], 6024138, 46167508, [id number], 86629376, [id number] #### [facility] (DEFAULT) [address] [place] [address] 46466Vwwaobw [Mass/Vol]88 mg/dLInvalid Interpretation Code [facility] HospitalComment on above:Performed By: #### [id number], [id number], 7316236, 60404290, [id number], 1724130, 15782404, 95301175, 98360880, [id number] #### [facility] (DEFAULT) [address], [place] [address]XdC7o (Bld) [Mass fraction]4.7 %Normal4.6-6.2[facility] HospitalComment on above:Performed By: #### [id number], [id number], [id number], [id number], [id number], [id number], [id number], [id number], [id number], [id number] #### [facility] (DEFAULT) [address] [place] [address] 48058Myjhdfln Orderson 06-90-6993Kizwynlj Orders [id number]#1.00[facility]GT[facility] HospitalCoding Summaryon 59-99-5506Qvfypq SummaryHTMLBase 64 AecsxsqoOWt4uKl+PGhlYWQ+UL5OPXVwE53kkPNvnU3rU8LBCGpDDdppOTFUWRlCVsUrlcZkDF8ytMBt ZXJu [file] JSc (more content not included)...[facility].Auto Diff 81-93-3061Uxsh Dickson %6 %Normal1-12[facility] HospitalComment on above:Performed By: #### [id number] #### [facility] (DEFAULT) [address] [place] [address] 85917Sdij Abs#0.1 i03Hvegzf0.0-0.2[facility] HospitalComment on above:Performed By: #### [id number] #### [facility] (DEFAULT) [address] [place] [address] 84896Kdfaoaycg/100 WBC (Bld)0.8 %Normal0.2-2.0[facility] Comment on above:Performed By: #### [id number] #### [facility] (DEFAULT) [address] [place] [address] 71523Jjj Abs#0.1 y84Zbjddb3.0-0.4[facility] HospitalComment on above:Performed By: #### [id number] #### [facility] (DEFAULT) [address] [place] [address] 48416Bxwmujffgxy/100 WBC (Bld)1.8 %Normal0.9-4.0[facility] HospitalComment on above:Performed By: #### [id number] #### [facility] (DEFAULT) [address] [place] [address] 62717Zppiw Abs#2.1 y02Wciven5.3-2.9[facility] HospitalComment on above:Performed By: #### [id number] #### [facility] (DEFAULT) [address] [place] [address] 18068Citbshafhgp/100 WBC (Bld)26 %Bhdraf28-95Zsskedkn Hospital Comment on above:Performed By: #### [id number] #### [facility] (DEFAULT) [address] [place] [address] 60343Jlts Abs#0.5 f86Eylnip1.0-0.8[facility] HospitalComment on above:Performed By: #### [id number] #### [facility] (DEFAULT) [address] [place] [address] 67006Xwlw Abs#5.2 t53Whqhxq0.5-9.2[facility] HospitalComment on above:Performed By: #### [id number] #### [facility] (DEFAULT) [address] [place] [address] 10987Metfrzbgqpq/100 WBC (Bld)65 %Ljwyyg19-70Iylcxidt Hospital Comment on above:Performed By: #### [id number] #### [facility] (DEFAULT) [address] [place] [address] 29038MAG w/ Auto Diffon 48-06-5656Unj Diff?AutoInvalid Interpretation CodeScci Hospital Lima HospitalComment on above:Performed By: #### [id number] #### [facility] (DEFAULT) [address] [place] [address] 28662Dmqqcsalcrn distribution width (RBC) [Ratio]13.1 %Normal 11.5-15.0[facility] HospitalComment on above:Performed By: #### [id number] #### [facility] (DEFAULT) [address] [place] [address] 64013Bmfuhrroiw (Bld) [Volume fraction]40.7 %High33.7-40.4 [facility] HospitalComment on above:Performed By: #### [id number] #### [facility] (DEFAULT) [address] [place] [address] 53648Oujweehumg (Bld) [Mass/Vol]14.0 g/rBTxkdem52.3-15.9 [facility] HospitalComment on above:Performed By: #### [id number] #### [facility] (DEFAULT) [address] [place] [address] 39924EJS (RBC) [Entitic mass]29 pyIwukjn87-72Ktsljylu Hospital Comment on above:Performed By: #### [id number] #### [facility] (DEFAULT) [address] [place] [address] 04546ZHMY (RBC) [Mass/Vol]34 g/vDRhnewg27-44Zjpvsrkn Hospital Comment on above:Performed By: #### [id number] #### [facility] (DEFAULT) [address] [place] [address] 70198NCJ (RBC) [Entitic vol]85 wDSmmsdq50-632Wsjuxgxc Hospital Comment on above:Performed By: #### [id number] #### [facility] (DEFAULT) [address] [place] [address] 14059Sipvdocn111 x98Usiltu401-721Trogyiyj HospitalComment on above:Performed By: #### [id number] #### [facility] (DEFAULT) [address] [place] [address] 00152Zmebfhgf mean volume (Bld) [Entitic vol]7.7 fLNormal 6.3-10.2[facility] HospitalComment on above:Performed By: #### [id number] #### [facility] (DEFAULT) [address] [place] [address] 95226DBI4.79 w28Yoqedf3.70-5.30[facility] HospitalComment on above:Performed By: #### [id number] #### [facility] (DEFAULT) [address] [place] [address] 44114HMO2.9 r37Rbsoaf3.5-10.5[facility] HospitalComment on above: Performed By: #### [id number] #### [facility] (DEFAULT) [address] [place] [address] 88145MBM Standardon 10-87-0487zRAI Non AA>60Invalid Interpretation [facility] HospitalComment on above:Performed By: #### [id number] #### [facility] (DEFAULT) [address] [place] [address] 74524qRUY AA>60Invalid Interpretation [facility] Comment on above:Performed By: #### [id number] #### [facility] (DEFAULT) [address] [place] [address] 11731Xxqrnea [Mass/Vol]4.0 g/dLNormal3.5-5.0[facility] Comment on above:Performed By: #### [id number] #### [facility] (DEFAULT) [address] [place] [address] 25773Dcxaiqm/Globulin [Mass ratio]1.2 {ratio}Low1.4-2.6[facility] HospitalComment on above:Performed By: #### [id number] #### [facility] (DEFAULT) [address] [place] [address] 77217Sbd Phos68 IU/SHsoect67-64Lscteywi HospitalComment on above:Performed By: #### [id number] #### [facility] (DEFAULT) [address] [place] [address] 98782YYN [Catalytic activity/Vol]14.0 U/EBqpjxb01.0-54.0 [facility] HospitalComment on above:Performed By: #### [id number] #### [facility] (DEFAULT) [address] [place] [address] 75821Kvvkz gap [Moles/Vol]10.9 mmol/LNormal5.0-19.0[facility] HospitalComment on above:Performed By: #### [id number] #### [facility] (DEFAULT) [address] [place] [address] 63237IKW [Catalytic activity/Vol]18 U/TSshseh31-32Blfqzvzw HospitalComment on above:Performed By: #### [id number] #### [facility] (DEFAULT) [address] [place] [address] 35793Bupl Total0.6 mg/dLNormal0.3-1.2[facility] HospitalComment on above:Performed By: #### [id number] #### [facility] (DEFAULT) [address] [place] [address] 19441Uvxhiad [Mass/Vol]8.8 mg/dLLow8.9-10.3[facility] Hospital Comment on above:Performed By: #### [id number] #### [facility] (DEFAULT) [address] [place] [address] 17446Axttfavp [Moles/Vol]107 mmol/IYapuoi089-470Sunsdzmg HospitalComment on above:Performed By: #### [id number] #### [facility] (DEFAULT) [address] [place] [address] 72829FA8 [Moles/Vol]23 mmol/FRopmsm07-84Wrofjjtj Hospital Comment on above:Performed By: #### [id number] #### [facility] (DEFAULT) [address] [place] [address] 03566Lnhbqiayld [Mass/Vol]0.68 mg/dLNormal0.60-1.30[facility] HospitalComment on above:Performed By: #### [id number] #### [facility] (DEFAULT) [address] [place] [address] 77545Vemxqzme (S) [Mass/Vol]3.3 g/dLNormal1.5-4.3[facility] HospitalComment on above:Performed By: #### [id number] #### [facility] (DEFAULT) [address] [place] [address] 57678Wqobxuv [Mass/Vol]103.0 mg/uRMslcxp80.0-118.0[facility] HospitalComment on above:Performed By: #### [id number] #### [facility] (DEFAULT) [address] [place] [address] 02220Yzhhngxmdb720 mOsm/LInvalid Interpretation CodeScci Hospital [facility] HospitalComment on above:Performed By: #### [id number] #### [facility] (DEFAULT) [address] [place] [address] 41795Jnhdhfnku [Moles/Vol]3.9 mmol/LNormal3.6-5.1[facility] HospitalComment on above:Performed By: #### [id number] #### [facility] (DEFAULT) [address] [place] [address] 28897Tkivuqq [Mass/Vol]7.3 g/dLNormal6.5-8.1[facility] Hospital Comment on above:Performed By: #### [id number] #### [facility] (DEFAULT) [address] [place] [address] 09139Wejzwx [Moles/Vol]137.0 mmol/SGegnfo130.0-144.0[facility] HospitalComment on above:Performed By: #### [id number] #### [facility] (DEFAULT) [address] [place] [address] 84668Cvfw nitrogen [Mass/Vol]12 mg/dLNormal8-26[facility] HospitalComment on above:Performed By: #### [id number] #### [facility] (DEFAULT) [address] [place] [address] 40885Kkpx nitrogen/Creatinine [Mass ratio]17.6 mg/mgHigh 4.6-16.2[facility] HospitalComment on above:Performed By: #### [id number] #### [facility] (DEFAULT) [address] [place] [address] 29374Ncvxx Panel Standardon 49-89-1900Rjzprbjjiab [Mass/Vol] 158.0 mg/bPYxwthc36.0-200.0[facility] HospitalComment on above:Performed By: #### [id number] #### [facility] (DEFAULT) [address] [place] [address] 28813Ypaekfbxevb in HDL [Mass/Vol]51 mg/zTCtkyco69-89Xbsfxqsc HospitalComment on above:Performed By: #### [id number] #### [facility] (DEFAULT) [address] [place] [address] 96185Erfcqtclwye in LDL [Mass/Vol]98 mg/dLNormal1-100[facility] HospitalComment on above:Performed By: #### [id number] #### [facility] (DEFAULT) [address] [place] [address] 92743Mtcylirdvjg.total/Cholesterol in HDL [Mass ratio]3.0 {ratio}Normal0.0-4.5[facility] HospitalComment on above:Performed By: #### [id number] #### [facility] (DEFAULT) [address] [place] [address] 35180Mhluyjggaths [Mass/Vol]43.0 mg/dLNormal0.0-150.0[facility] HospitalComment on above:Performed By: #### [id number] #### [facility] (DEFAULT) [address] [place] [address] 89685RDOP.9 mg/dLNormal5-40[facility] HospitalComment on above: Performed By: #### [id number] #### [facility] (DEFAULT) [address] [place] [address] 64585Jkglkfwrlmbj LCon 13-66-3446Hxpbojdcgokl LC0.7 ng/mL Invalid Interpretation [facility] HospitalComment on above:Result Comment: Follicular phase 0.1 - 0.9 Luteal phase 1.8 - 23.9 Ovulation phase 0.1 - 12.0 First trimester 11.0 - 44.3 Second trimester 25.4 - 83.3 Third trimester 58.7 - 214.0 Postmenopausal 0.0 - 0.1 Performed At: [facility] [id number] Bibi Irwin PhD Ph:[phone] By: #### [id number] #### [facility] (DEFAULT) [address] [place], [place] [address]Crghfy Summaryon 22-75-4285Qkqnoq SummaryMLBase 64 KrxjtcjvTWf7bFp+PGhlYWQ+MH1SLXVpE89rbGDrzY8qT4YJGJfBJxqlCQAKDRnKFiMqiqZwYO7znRQw ZXJu [file] b2x (more content not included)...[facility] ThroatOrdered by Discern. Normal throat dong isolated No pathogens isolatedNoCleveland Clinic Euclid HospitalComment on above:Performed By: #### [id number], [id number], [id number] #### [facility] (DEFAULT) [address] [place] [address] 52783Npbfwqubgyar LCon 72-67-7221Xzktrirvqoko LC8.7 ng/mL Invalid Interpretation [facility] HospitalComment on above:Result Comment: Follicular phase 0.1 - 0.9 Luteal phase 1.8 - 23.9 Ovulation phase 0.1 - 12.0 First trimester 11.0 - 44.3 Second trimester 25.4 - 83.3 Third trimester 58.7 - 214.0 Postmenopausal 0.0 - 0.1 Performed At: [facility] [id number] Bibi Irwin PhD Ph:[phone] By: #### [id number], [id number], [id number] #### [facility] (DEFAULT) [address] [place] [address] 08999JQ Clinical Summaryon 49-60-4860JE Clinical Summary [facility] ? Urgent Care [address] [place] [address] Clinical Summary PERSON INFORMATION Name: BRYNN WALLACE Age: 22 Years Sex: FEMALE : 2000 MRN: Acct#: Visit Reason: Throat pain - Adult; Body aches; SORE THROAT, HEADACHE Arrival: 01/10/2023 13:26:17 Discharge: 01/10/2023 15:12:00 LOS: 000 01:46 Check In: 01/10/2023 13:26:17 Checkout: 01/10/2023 15:12:00 Address: [address] [place] [address] PCP: Leah Azar PROVIDER INFORMATION Provider Role Assigned Unassigned Genesis Calvillo PA-C ED PA 01/10/2023 13:47:57 Kristen Velazquez WELL SERVICING RIG OPERATOR Nurse 01/10/2023 13:53:38 VITALS INFORMATION Vital Sign [...] Adult Follow-Up: With: Address: When: Leah Azar [address] [place], [place] [id number] DIAGNOSIS: 1:Systemic viral illness; 2:Viral pharyngitis Patient Understands: Comment:[facility] Summary [id number] Patient Summary [facility] ? Urgent Care [address] [place], [place] [id number] PATIENT DISCHARGE INSTRUCTIONS Patient Information Name: BRYNN WALLACE Age: 22 Years Date of : 2000 Reason For Visit: Throat pain - Adult; Body aches; SORE THROAT, HEADACHE Arrival Time: 01/10/2023 13:26:17 Phone: Primary Care Physician: Leah Azar Attending Physician: Genesis Calvillo PA-C Comment: Patient Education With: Address: When: Leah Azar [address] [place], [place] [id number] Sore Throat A sore throat is pain, [...] these instructions at home: Medicines ? Take ecjg-fhr-wtaflcr and prescription medicines only as told by [...] and water are not available, use hand roper operator. Contact a health care provider if: ? [...] can cause a sore throat. ? Take fvad-fpl-evwzfon medicines only as told by your health [...] Reviewed: 07/08/2021 Elsevier Patient Education ? 2022 [employer] Viral Illness, Adult Viruses are tiny [...] cells in your body, multiply, and cause theinfected cells to work abnormally or . When these cells , they release more of the virus. When this happens, you develop symptoms of the illness, and the virus continues to spread to other cells. If the virus takes over the function of the cell, it can cause the cell to divide and grow ou (more content not included)...[facility] HospitalARS-CoV-2 (COVID-19) PCRon 36-39-6569Jvfjnskn ControlPassNormRegency Hospital CompanyComment on above:Performed By: #### [id number] #### [facility] (DEFAULT) [address] [place], [place] [address]IDNR-GtK-0 (COVID-19) RNA HERBER+probe Ql (Unsp spec)Not detectedNormalNot DetectedFayette County Memorial HospitalComment on above:Result Comment: Performed by PCR methodology.Performed By: #### [id number] #### [facility] (DEFAULT) [address] [place] [address] 34980Hrbxd Aon 53-60-1153Gxqxp procedure controlPassNoal [facility] HospitalComment on above:Performed By: #### [id number], [id number], [id number] #### [facility] (DEFAULT) [address] [place], [place] [address]Algiomysjvjvr ANegativeNormalNegativeFayette County Memorial Hospital Comment on above:Performed By: #### [id number], [id number], [id number] #### [facility] (DEFAULT) [address] [place] [address] 50145Vifldjuyaudh LCon 72-22-8282Pjgewpigitqo LC6.2 ng/mL Invalid Interpretation [facility] HospitalComment on above:Result Comment: Follicular phase 0.1 - 0.9 Luteal phase 1.8 - 23.9 Ovulation phase 0.1 - 12.0 First trimester 11.0 - 44.3 Second trimester 25.4 - 83.3 Third trimester 58.7 - 214.0 Postmenopausal 0.0 - 0.1 Performed At: [address] [id number] Bibi Irwin PhD Ph:[phone] By: #### [id number], [id number], [id number] #### [facility] (DEFAULT) [address] [place] [address] 82064Ideucuxl Orderson 57-56-9990Irhkrwvk Orders [id number]#1.00OTGTIFFMercy Health [facility]iance Hospital Coding Summaryon 49-62-7017Lqqpdh SummaryHTMLBase 64 SjhxyfllABo2qWs+PGhlYWQ+IL9FDBDfV46bzTPkaO2hZ7HAUQiWPybyRPAKALxKNoUpzfLdKM7obZQj ZXJu [file] b2x (more content not included)...[facility] HospitalUS Pelvis Non-OB Completeon 46-15-4472PZ Pelvis Non-OB Complete_History: PCOS Technique: Sonography of the pelvis was [...] of the ovaries. 2. Prominent adnexal and periureteral/pericervical vessels suggesting pelvic congestion syndrome. Final Signed (Electronic Signature): Brian Burr MD 11/30/22 10:38 a Technologist: LUNA TORRESTriHealth Good Samaritan HospitalProvider Orderson 82-00-5372Eqcjjfpf [id number]#1.00OTGTIFFNoCleveland Clinic Euclid HospitalCoding Summaryon 21-97-3169Traubn SummaryMLBase 64 SzbixmhyVBb1nBf+PGhlYWQ+GT7RMLWaB60szJPzgD4vN6LQCFuCBxuvFQHXKIcWOfQtrcSnJZ0hhXIl ZXJu [file] b2x (more content not included)...[facility] HospitalDehydroepiandrosterone (DHEA) on 70-78-2752Azyxtmsnnmfmlqnzdfzeew (DHEA) LC340 ng/dLInvalid Interpretation Bvfd41-704[facility] HospitalComment on above:Result Comment: This test was developed and its performance characteristics determined by [facility]. It has not been cleared or approved by the Food and Drug Administration. Performed At: [address] [id number] Morris Nayak MD Ph:[phone] By: #### [id number], [id number], [id number] #### [facility] (DEFAULT[facility] [address] [place] [address] 72047Lfzwseqccmxzxpduiswadj Sulfate LCon 83-90-9102RHLE-Sulfate LC612.0 ug/mETbdm353.0-431.7[facility] HospitalComment on above:Result Comment: Performed At: [address] [id number] Bibi Irwin PhD Ph:[phone] By: #### [id number], [id number], [id number] #### [facility] (DEFAULT) [address] [place] [address] 11549HFO and LH LCon 98-23-6318FEN LC1.9 mIU/mLInvalid Interpretation [facility] HospitalComment on above:Result Comment: Adult Female: Follicular phase 3.5 - 12.5 Ovulation phase 4.7 - 21.5 Luteal phase 1.7 - 7.7 Postmenopausal 25.8 - 134.8 Performed At: [address] [id number] Bibi Irwin PhD Ph:[phone] By: #### [id number], [id number], [id number] #### [facility] (DEFAULT) [address] [place] [address] 92971IP LC1.9 mIU/mLInvalid Interpretation [facility] HospitalComment on above:Result Comment: Adult Female: Follicular phase 2.4 - 12.6 Ovulation phase 14.0 - 95.6 Luteal phase 1.0 - 11.4 Postmenopausal 7.7 - 58.5Performed By: #### [id number], [id number], [id number] #### [facility] (DEFAULT) [address] [place] [address] 26012.Auto Diff 1on 96-28-3178Xvwn Dickson %5 %Normal1-12[facility] HospitalComment on above:Performed By: #### [id number], [id number], [id number] #### [facility] (DEFAULT) [address] [place] [address] 64542Hqiq Abs#0.1 x53Xtlgfa0.0-0.2[facility] HospitalComment on above:Performed By: #### [id number], [id number], [id number] #### [facility] (DEFAULT) [address] [place] [address] 45873Lpfvescmb/100 WBC (Bld)1.0 %Normal0.2-2.0[facility] Comment on above:Performed By: #### [id number], [id number], [id number] #### [facility] (DEFAULT) [address] [place] [address] 29698Ogb Abs#0.1 i47Znzhyo9.0-0.4[facility] HospitalComment on above:Performed By: #### [id number], [id number], [id number] #### [facility] (DEFAULT) [address] [place] [address] 25096Lzfjcplgfqf/100 WBC (Bld)0.7 %Low0.9-4.0[facility] Hospital Comment on above:Performed By: #### [id number], [id number], [id number] #### [facility] (DEFAULT) [address] [place] [address] 34167Adjjp Abs#1.9 h30Qdibtg8.3-2.9[facility] HospitalComment on above:Performed By: #### [id number], [id number], [id number] #### [facility] (DEFAULT) [address] [place] [address] 55052Bffehfduvwd/100 WBC (Bld)19 %Bwunng27-10Gfnourek Hospital Comment on above:Performed By: #### [id number], [id number], [id number] #### [facility] (DEFAULT) [address] [place] [address] 33885Tnez Abs#0.5 r20Kghhoo1.0-0.8[facility] HospitalComment on above:Performed By: #### [id number], [id number], [id number] #### [facility] (DEFAULT) [address] [place] [address] 16835Meqa Abs#7.7 w68Orpare2.5-9.2[facility] HospitalComment on above:Performed By: #### [id number], [id number], [id number] #### [facility] (DEFAULT) [address] [place] [address] 83787Huduxphkjbj/100 WBC (Bld)75 %Wcwwgu44-60Ltqgleco Hospital Comment on above:Performed By: #### [id number], [id number], [id number] #### [facility] (DEFAULT) [address] [place] [address] 42572HEX w/ Auto Diffon 13-96-1100Ytoqbagzizv distribution width (RBC) [Ratio]12.9 %Aaifqp33.5-15.0[facility] HospitalComment on above: Performed By: #### [id number], [id number], [id number] #### [facility] (DEFAULT) [address] [place] [address] 61071Duhhfgtfzz (Bld) [Volume fraction]41.8 %High33.7-40.4 [facility] HospitalComment on above:Performed By: #### [id number], [id number], [id number] #### [facility] (DEFAULT) [address] [place] [address] 95813Smoudrbwtv (Bld) [Mass/Vol]14.0 g/iSJfitlh96.3-15.9 [facility] HospitalComment on above:Performed By: #### [id number], [id number], [id number] #### [facility] (DEFAULT) [address] [place] [address] 00096Zvj Diff?AutoInvalid Interpretation CodeFayette County Memorial Hospital Comment on above:Performed By: #### [id number], [id number], [id number] #### [facility] (DEFAULT) [address] [place] [address] 28033AFK (RBC) [Entitic mass]29 vcOxsyyb19-71Kmxjavgq Hospital Comment on above:Performed By: #### [id number], [id number], [id number] #### [facility] (DEFAULT) [address] [place] [address] 00626NOMC (RBC) [Mass/Vol]34 g/zLEtqdjl95-09Jvwhmzhp Hospital Comment on above:Performed By: #### [id number], [id number], [id number] #### [facility] (DEFAULT) [address] [place] [address] 85217QZA (RBC) [Entitic vol]87 hRXdrugn22-671Jmopdznx Hospital Comment on above:Performed By: #### [id number], [id number], [id number] #### [facility] (DEFAULT) [address] [place] [address] 98179Deqbmyck124 i28Lhzdve534-870Kondliit HospitalComment on above:Performed By: #### [id number], [id number], [id number] #### [facility] (DEFAULT) [address] [place] [address] 23471Bhxwgktw mean volume (Bld) [Entitic vol]8.0 fLNormal 6.3-10.2MAvita Health [facility] Galion HospitalComment on above:Performed By: #### [id number], [id number], [id number] #### [facility] (DEFAULT) [address] [place] [address] 69180QED7.83 n42Tcxaai9.70-5.30[facility] HospitalComment on above:Performed By: #### [id number], [id number], [id number] #### [facility] (DEFAULT) [address] [place] [address] 15869JJM04.3 l40Ksfonx2.5-10.5[facility] HospitalComment on above:Performed By: #### [id number], [id number], [id number] #### [facility] (DEFAULT) [address] [place] [address] 13549Extg T4on 54-24-4251Xcdb T4 [Mass/Vol]1.06 ng/dLNormal 0.61-1.12[facility] HospitalComment on above:Performed By: #### [id number], [id number], [id number] #### [facility] (DEFAULT) [address] [place] [address] 97497GrxG9g Standardon 11-17-2022.Hb15.7Invalid Interpretation CodeScci Hospital [facility] HospitalComment on above:Performed By: #### [id number], [id number], [id number] #### [facility] (DEFAULT) [address] [place] [address] 55512.Hgb A1c0.55 g/dLInvalid Interpretation CodeScci Hospital [facility] HospitalComment on above:Performed By: #### [id number], [id number], [id number] #### [facility] (DEFAULT) [address] [place] [address] 30686Zwxtxek [Mass/Vol]105 mg/dLInvalid Interpretation Code [facility] HospitalComment on above:Performed By: #### [id number], [id number], [id number] #### [facility] (DEFAULT) [address] [place] [address] 70740DoT5t (Bld) [Mass fraction]5.3 %Normal4.6-6.2Magrf[facility] HospitalComment on above:Performed By: #### [id number], [id number], [id number] #### [facility] (DEFAULT) [address] [place] [address] 11046Pbtxgosl Orderson 05-14-9644Ciuxfuia Orders [id number]#1.00OTGTIFFMercy Health Defiance HospitalTSHon 02-17-0569OAF Qn1.26 m[IU]/LNormal0.45-5.33[facility] HospitalComment on above: Performed By: #### [id number], [id number], [id number] #### [facility] (DEFAULT) [address] [place] [address] 85178wTV Quantitativeon 54-41-9813zKV Quantitative<0.6Normal 0.0-0.6MAvita Health System Galion HospitalComment on above:Result Comment: Post-Menopausal Reference Range is: 0.1-11.6 mIU/mLPerformed By: #### [id number], [id number], [id number] #### [facility] (DEFAULT) [address] [place] [address] 12800Zjf - Toxicology Resultson 56-50-6214Jgf - Toxicology [id number]#1.00OTGTWayne HealthCare Main CampusQuantiFERON-TB Gold Pluson 09-43-8308TxzbsxHJDUR-TB Gold PlusNegative Invalid Interpretation CodeNegativeFayette County Memorial HospitalComment on above:Result Comment: No response to M tuberculosis antigens detected. Infection with M tuberculosis is unlikely, but high risk individuals should be considered for additional testing (ATS/IDSA/CDC Clinical Practice Guidelines, 2017). The reference range is an Antigen minus Nil result of <0.35 IU/mL. Chemiluminescence immunoassay methodology Performed At: [address] [id number] Bibi Irwin PhD Ph:[phone] By: #### [id number], [id number], [id number] #### [facility] (DEFAULT) [address] [place] [address] 85420DagglsOABHB IncubationIncubation performed.Invalid Interpretation CodeFayette County Memorial HospitalComment on above:Result Comment: Performed At: [facility] CampusExpan[address] [id number] Bibi Irwin PhD Ph:[phone] By: #### [id number], [id number], [id number] #### [facility] (DEFAULT) [address] [place] [address] 86831DRExd Qnt LCon 76-64-3365Lkt B Surf Ab Quant LC<3.1Low Immunity>9.9[facility] HospitalComment on above:Result Comment: Status of Immunity Anti-HBs Level Inconsistent with Immunity 0.0 - 9.9 Consistent with Immunity >9.9 Performed At: [address] [id number] Bibi Irwin PhD Ph:[phone] By: #### [id number], [id number], [id number] #### [facility] ([facility] [address] [place] [address] 45519Fqbshyq/Mumps/Rubella Immunity LCon 38-16-3871Bmaie Abs, IgG LC132.0 AU/mLInvalid Interpretation CodeImmune >10.9F[facility] County Memorial HospitalComment on above:Result Comment: Negative <9.0 Equivocal 9.0 - 10.9 Positive >10.9 A positive result generally indicates past exposure to Mumps virus or previous vaccination. Performed At: [address] [id number] Bibi Irwin PhD Ph:[phone] By: #### [id number], [id number], [id number] #### [facility] (DEFAULT) [address] [place] [address] 38504Xhldmfu Antibodies, IgG LC1.78 indexInvalid Interpretation CodeImmune >0.99[facility] HospitalComment on above:Result Comment: Non-immune <0.90 Equivocal 0.90 - 0.99 Immune >0.99Performed By: #### [id number], [id number], [id number] #### [facility] (DEFAULT) [address] [place] [address] 45522Bemrawa Ab, IgG, EIA LC>300.0Invalid Interpretation Code Immune >16.4F[facility] County Memorial HospitalComment on above:Result Comment: Negative <13.5 Equivocal 13.5 - 16.4 Positive >16.4 Presence of antibodies to Rubeola is presumptive evidence of immunity except when acute infection is suspected.Performed By: #### [id number], [id number], [id number] #### [facility] (DEFAULT) [address] [place] [address] 23041Rzpvmesq Metabolite, Urine LCon 75-67-9824Qdvfxumg LC NegativeInvalid Interpretation NkdkMozqyu=113Exdzlzaa HospitalComment on above: Result Comment: Performed At: [facility] [address] [place], [place] [id number] Rachel Garcia PhD Ph:[phone] By: #### [id number], [id number], [id number] #### [facility] (DEFAULT) [address] [place] [address] 33567XF Pelvic Complete w/Transvaginalon 62-13-4212IY Pelvic Complete w/TransvaginalFindings: Anteverted uterus measures 8.2 x 5.2 x [...] and signed by Pepito Martins on 06/22/2022 1125NoalNomission family health centern Greenwich HospitalXR Abdomen Single View (KUB)*on 33-60-2129YI Abdomen Single View (KUB)*COMPARISON: NONE. FINDINGS: The bowel gas pattern is unremarkable. There are no dilated loops of bowel. There are no acute osseous changes. IMPRESSION: There are no acute changes. Report reported and signed by ALONSO PADRON on 06/19/2022 1201NormalNorthern Waterbury Hospital AUTO DIFFon 92-51-9999TINF #0.1 103/ulNormal0.0-0.1 The [facility] CenterComment on above:Performed By: #### CBC #### [facility] [address] [place], [place] [address] Jatin KarenBasophils/100 WBC (Bld)0.7 %Normal0.2-2.0The [facility] Comment on above:Performed By: #### CBC #### [facility] [address] [place] [id number] Jatin KarenEO #0.4 103/ulNormal0.0-0.7The [facility] Health CenterComment on above: Performed By: #### CBC #### [facility] [address] [place], [place] [address] Jatin KarenEosinophils/100 WBC (Bld)3.4 %Normal0.9-7.0The [facility] Comment on above:Performed By: #### CBC #### [facility] [address] [place], [place] [address] Jatin KarenErythrocyte distribution width (RBC) [Ratio]11.8 %Zpcoyr26.0-15.0The [facility] CenterComment on above:Performed By: #### CBC #### [facility] [address] [place], [place] [address] Jatin KarenHematocrit (Bld) [Volume fraction]42.6 %Oikmxo83.0-48.0The [facility] CenterComment on above:Performed By: #### CBC #### [facility] [address] [place], [place] [address] Jatin KarenHemoglobin (Bld) [Mass/Vol]14.3 g/uHGmyhct61.0-16.0The [facility] CenterComment on above:Performed By: #### CBC #### [facility] [address] [place] [address] Jatin VergaraenIG #0.03 10e3/ulNormal0.00-0.03The [facility] Health CenterComment on above:Performed By: #### CBC #### [facility] [address] [place] [address] Jatinandrez VergaraenIG %0.3 %Normal0.0-0.5The [facility] Health CenterComment on above: Performed By: #### CBC #### [facility] [address] [place] [address] Jatin KarenLYMPH #2.2 103/ulNormal1.2-3.8The [facility] CenterComment on above: Performed By: #### CBC #### [facility] [address] [place] [address] Jatin VergaraenLymphocytes/100 WBC (Bld)20.7 %Auvjxw07.5-60.0[facility] Comment on above:Performed By: #### CBC #### [facility] [address] [place] [address] Jatin VergaraenMANUAL DIFF REQNONormalAdena Regional Medical CenterComment on above: Performed By: #### CBC #### [facility] [address] [place] [address] Jatin KarenMCH (RBC) [Entitic mass]30.4 xaQbursz97.7-34.0[facility] Comment on above:Performed By: #### CBC #### [facility] [address] [place] [address] Jatin KarenMCHC (RBC) [Mass/Vol]33.6 g/jTYuvvgo62.9-35.2The [facility] Comment on above:Performed By: #### CBC #### [facility] [address] [place] [address] Jatin KarenMCV (RBC) [Entitic vol]90.4 aHDroncc77.0-99.0[facility] Comment on above:Performed By: #### CBC #### [facility] [address] [place] [address] Jatin KarenMONO #0.6 103/ulNormal0.3-0.8The [facility] CenterComment on above: Performed By: #### CBC #### [facility] [address] [place] [address] Jatin KarenMonocytes/100 WBC (Bld)6.0 %Normal1.7-12.0The [facility] Comment on above:Performed By: #### CBC #### [facility] [address] [place] [address] Jatin KarenNEUT #7.3 103/ulCritically high1.4-6.5The [facility] CenterComment on above:Performed By: #### CBC #### [facility] [address] [place] [address] Jatin KarenNeutrophils/100 WBC (Bld)68.9 %Xvnfjc82.0-75.0The [facility] Comment on above:Performed By: #### CBC #### [facility] [address] [place] [address] Jatin KarenPlatelet mean volume (Bld) [Entitic vol]9.7 fLNormal9.5-13.5The [facility] CenterComment on above:Performed By: #### CBC #### [facility] [address] [place] [address] Jatin KxmbwVTI831 103/mkIcxjmo656-635Lan [facility] CenterComment on above: Performed By: #### CBC #### [facility] [address] [place] [address] Jatin KarenRBC4.71 106/ulNormal4.20-5.40The [facility] CenterComment on above: Performed By: #### CBC #### [facility] [address] [place] [address] Jatin IadvyXVX28.6 103/ulNormal4.0-11.0The [facility] CenterComment on above: Performed By: #### CBC #### [facility] [address] [place] [address] Jatin KarenCT ABD/PELV W CONon 63-86-0000QI ABD/PELV W CONEXAMINATION: CT ABD/PELV W CON HISTORY: ABDOMINAL DISTENSION [...] Electronically authenticated by: Sabiha RUSHING Date: 2020-12-12 04:08NormTriHealth McCullough-Hyde Memorial HospitalPREG HCG QUALon 08-79-1620XBMIVWVYR, QUALNegativeNormalNEGATIVE The [facility] CenterComment on above:Performed By: #### PREG #### [facility] [address] [place], [place] [address] Jatin KarenPROF 14(COMP METB)on 04-77-2186Huodkdi [Mass/Vol]3.9 g/dLNormal 3.5-5.0The [facility] CenterComment on above:Performed By: #### CMP #### [facility] [address] [place], [place] [address] Jatin KarenAlbumin/Globulin [Mass ratio]1.1 {ratio}NormalThe [facility] Comment on above:Performed By: #### CMP #### [facility] [address] [place], [place] [address] Jatin KarenALP [Catalytic activity/Vol]93 U/ONfgqrb28-652Txb [facility] Comment on above:Performed By: #### CMP #### [facility] [address] [place] [address] Jatin KarenALT [Catalytic activity/Vol]16 U/LNormal9-52[facility] Comment on above:Performed By: #### CMP #### [facility] [address] [place] [address] Jatin KarenAnion gap [Moles/Vol]17.1 mmol/LNormalAdena Regional Medical CenterComment on above:Performed By: #### CMP #### [facility] [address] [place] [address] Jatin KarenAST [Catalytic activity/Vol]3 U/LCritically wdh27-61Ugd [facility] CenterComment on above:Performed By: #### CMP #### [facility] [address] [place] [address] Jatin KarenBilirubin [Mass/Vol]0.3 mg/dLNormal0.2-1.3TUniversity Hospitals Health System Comment on above:Performed By: #### CMP #### [facility] [address] [place] [address] Jatin KarenCalcium [Mass/Vol]8.9 mg/dLNormal8.4-10.2[facility] Comment on above:Performed By: #### CMP #### [facility] [address] [place] [address] Jatin KarenChloride [Moles/Vol]106 mmol/XCfzoll16-491Oya [facility] Comment on above:Performed By: #### CMP #### [facility] [address] [place] [address] Jatin KarenCO2 [Moles/Vol]23.0 mmol/RDebcwk33.0-30.0The [facility] Comment on above:Performed By: #### CMP #### [facility] [address] [place] [address] Jatin KarenCreatinine [Mass/Vol]0.76 mg/dLNormal0.52-1.04The [facility] Comment on above:Performed By: #### CMP #### [facility] [address] [place] [address] Jatin KarenEGFR-AF ANDORRAN>60Normal>=60The [facility] Health CenterComment on above: Performed By: #### CMP #### [facility] [address] [place] [address] Jatin KarenEGFR-NON AF ANDORRAN>60Normal>=60The [facility] CenterComment on above:Performed By: #### CMP #### [facility] [address] [place] [address] Jatin KarenGlobulin (S) [Mass/Vol]3.7 g/dLNormalThe [facility] CenterComment on above:Performed By: #### CMP #### [facility] [address] [place] [address] Jatin KarenGlucose [Mass/Vol]96 mg/oOJuukvi43-206Pth [facility] CenterComment on above:Performed By: #### CMP #### [facility] [address] [place] [address] Jatin KarenPotassium [Moles/Vol]4.1 mmol/LNormal3.4-5.0The [facility] Comment on above:Performed By: #### CMP #### [facility] [address] [place] [address] Jatin KarenProtein [Mass/Vol]7.6 g/dLNormal6.1-8.2The [facility] CenterComment on above:Performed By: #### CMP #### [facility] [address] [place] [address] Jatin KarenSodium [Moles/Vol]142 mmol/QWecosc846-804Smo [facility] Comment on above:Performed By: #### CMP #### [facility] [address] [place] [address] Jatin KarenUrea nitrogen [Mass/Vol]14.0 mg/dLNormal6.4-19.3The [facility] CenterComment on above:Performed By: #### CMP #### [facility] [address] [place] [address] Jatin VergaraenUrea nitrogen/Creatinine [Mass ratio]18.4 mg/mgNoBucyrus Community HospitalComment on above:Performed By: #### CMP #### [facility] [address] [place], [place] [address] Jatin KarenPROTIMEon 74-62-1374LCU Coag (PPP) [Relative time]1.00 {INR}Normal The [facility] Health CenterCommackinac straits hospital on above:Performed By: #### PTT, PT #### [facility] [address] [place], [place] [address] Jatin KarenINR GUIDELINESSEE BELOWKettering Health DaytonComment on above: Result Comment: DESIRED INR: 2.0 - 3.0 CONDITIONS NOT LISTED BELOW 2.5 - 3.5 FOR PROSTHETIC HEART VALVE REPLACEMENT 2.5 - 3.5 RECURRENT THROMBOSISPerformed By: #### PTT, PT #### [facility] [address] [place] [address] Jatin KarenPT Coag (PPP) [Time]10.8 sNormal9.0-11.6The [facility] Health CenterComment on above:Performed By: #### PTT, PT #### [facility] [address] [place], [place] [address] Jatin VergaraenPTTon 51-45-5682qNZH Coag (Bld) [Time]26.2 gEkryon40.3-36.2The [facility] CenterComment on above:Performed By: #### PTT, PT #### [facility] [address] [place] [address] Jatin KarenXR CHEST 1 Von 66-33-9652EB CHEST 1 VEXAM: XR CHEST 1 V HISTORY: Chest pain left-sided rib pain COMPARISON: None. TECHNIQUE: Single frontal view chest x-ray FINDINGS: No lobar consolidation, large effusions, pneumothorax, or discrete acute bony abnormality. Cardiac size unremarkable. IMPRESSION: No radiographic evidence for acute chest abnormality. Electronically authenticated by: ODALIS BRICENO Date: 2020-12-12 03:25[facility] Vital Signs Date TimeVital SignValuePerforming ZukilbyguQuyckaxn35-12-7138 11:18-0400Body mass index (BMI) [Ratio]42.47 kg/c6LclkuGarnet Health10-03-2025 11:18-0400 Body .22 kgGarnet Health10-03-2025 11:18-0400Diastolic blood sqilbgoc87 mm[Hg][facility]10-03-2025 11:18-0400Systolic blood vrwfipcg265 mm[Hg][facility]09-29-2025 16:04-0400Body mass index (BMI) [Ratio]42.91 kg/m6TvjlkSilva Olmstead LENS FINISHER Work Phone: [phone] [place], [place] [address]Odzszflscb51-77-8599 16:04-0400Body iimumu936.4 kgSilva Olmstead LENS FINISHER Work Phone: [phone] [place], [place] [address]Lrjkfvuuwq94-44-5572 16:04-0400Diastolic blood ogkfbtpr78 mm[Hg]Silva Olmstead LENS FINISHER Work Phone: [phone] [place], [place] [address]Fzmsnfriws41-58-8077 16:04-0400Heart rate95 /min Silva Olmstead LENS FINISHER Work Phone: [phone] [place] [address]-29-2025 16:04-5251SlU8% (BldA) [Mass fraction]99 %Silva Olmstead LENS FINISHER Work Phone: [phone] [place], [place] [address]Fkwdnxzcgu74-14-5171 16:04-0400Systolic blood ckzdgxax638 mm[Hg]Silva Olmstead LENS FINISHER Work Phone: [phone] [place], [place] [address]Vkwuniyery22-38-0936 12:59-0400Body deybjf571.6 cmJeannie Soni MD Work Phone: [phone] [place], [place] [address]Hfeeegbpct96-22-2126 12:59-0400Body mass index (BMI) [Ratio]40.51 kg/l2RlalfbkbJeannie Soni MD Work Phone: [phone] [place], [place] [address]Tgwzushmpo03-46-7207 12:59-0400Body .05 kgJeannie Soni MD Work Phone: [phone]04-01-2025 12:59-0400Diastolic blood mheibrgo31 mm[Hg]Jeannie Soni MD Work Phone: [facility] HospitalBxjzttiqzq74-31-4132 12:59-0400Heart oeud127 /min Jeannie Soni MD Work Phone: [facility] HospitalJjanhhsgjy06-41-9448 12:59-6484PdF6% (BldA) [Mass fraction]97 %Jeannie Soni MD Work Phone: [facility] HospitalFxvscvxcrl63-10-1432 12:59-0400Systolic blood henjekei465 mm[Hg]Jeannie Soni MD Work Phone: [facility] HospitalZualwjfebo14-57-5669 13:42-0500Body mass index (BMI) [Ratio]38.62 kg/m2Yaritza Portillo PA Work Phone: [facility] HospitalYanubjfkkc90-63-9274 13:42-0500Body iclgzj163.06 kgYaritza Portillo PA Work Phone: [facility] HospitalSaovmqbcet33-99-6599 14:20-0500Body xichyb772.6 cmSmichel Olmstead LENS FINISHER Work Phone: [facility] HospitalBrqvuucten43-56-4149 14:20-0500Body mass index (BMI) [Ratio]38.28 kg/z0GzhavSilva Olmstead LENS FINISHER Work Phone: [facility] HospitalZmchmvxqoe13-00-3795 14:20-0500Body .15 kgSilva Olmstead LENS FINISHER Work Phone: [facility] HospitalOreuslcncs38-07-4833 14:20-0500Diastolic blood ukoloeqx99 mm[Hg]Silva Acuñaedmundoinga LENS FINISHER Work Phone: [facility] HospitalZxvmvotwlr43-10-0398 14:20-0500Heart vsql611 /min Silva Acuñaedmundoinga LENS FINISHER Work Phone: [facility] HospitalIsswmrcsnf05-80-6981 14:20-0676VmK7% (BldA) [Mass fraction]98 %Silva Acuñakvng LENS FINISHER Work Phone: [facility] HospitalQxxluvsevl21-96-0903 14:20-0500Systolic blood mm[Hg]Silva Acuñaedmundoinga MASON Work Phone: [facility] HospitalDykzubovkc36-75-8062 11:36-0500Body mass index (BMI) [Ratio]41.9 kg/a5Iacop Alia DO Work Phone: [facility] HospitalVoiiueyppv92-99-0953 11:36-0500Body gijvtc873.73 kgCorey Alia DO Work Phone: [facility] HospitalMrlaoqynvg33-04-5309 11:36-0500Diastolic blood mm[Hg]Shaw Alia DO Work Phone: [facility] HospitalZueingbrnc36-39-8658 11:36-0500Systolic blood pigvnckz491 mm[Hg]Shaw Alia DO Work Phone: [facility] HospitalVaarfupfgu54-72-2692 13:49-0500Body mass index (BMI) [Ratio]41.5 kg/m2Yaritza CAMARILLO Work Phone: [facility] HospitalWjyllypvon68-30-9486 13:49-0500Body hsrwmy228.68 kgYaritza CAMARILLO Work Phone: [facility] HospitalPtmzrvnkyp32-13-9578 13:49-0500Diastolic blood rtnuukqe38 mm[Hg]Yaritza CAMARILLO Work Phone: [facility] HospitalNzdemuller05-67-2515 13:49-0500Systolic blood edrxhtql230 mm[Hg]Yaritza CAMARILLO Work Phone: [facility] HospitalGidndrwaxc05-56-5586 14:14-0500Body mass index (BMI) [Ratio]41.5 kg/c3Awbhl Alia DO Work Phone: [facility] HospitalQzplibynys49-11-8406 14:14-0500Body kzcooc531.68 kgCorey Alia DO Work Phone: [facility] HospitalSmdoekrexw91-61-0096 14:14-0500Diastolic blood vjitrtck33 mm[Hg]Shaw Alia DO Work Phone: [facility] HospitalYlnhsydwbc79-14-9692 14:14-0500Systolic blood ofsjkrnl008 mm[Hg]Shaw Alia DO Work Phone: [phone] [place], [place] [address]Doiuctrule04-78-7753 11:04-0500Body mass index (BMI) [Ratio]41.33 kg/m2Amy Dallas PA Work Phone: [phone] sale to [facility] HospitalTodkecarhn92-49-6879 11:04-0500Body .23 kgAmy Wendy PA Work Phone: [phone] [place], [place] [address]Aoahfogfyk99-49-5740 11:04-0500Diastolic blood uflbtlqu03 mm[Hg]Yaritza Portillo PA Work Phone: [phone] [place], [place] [address]Tjwrfvxeza02-47-4980 11:04-0500Systolic blood plovzwpk532 mm[Hg]Yaritza Portillo PA Work Phone: [phone] [place], [place] [address]Euokvtzggg36-88-5853 11:32-0500Body mass index (BMI) [Ratio]40.92 kg/k9Xqmrp Alia DO Work Phone: [phone] [place], [place] [address]Mhhtshxmqg97-04-1575 11:32-0500Body .14 kgCorey Alia DO Work Phone: [phone] [place], [place] [address]Klvjnykiff66-16-7160 11:32-0500Diastolic blood uhfylwhc92 mm[Hg]Shaw Alia DO Work Phone: [phone] [place], [place] [address]Siozgyqege85-83-0227 11:32-0500Systolic blood rbyuckun810 mm[Hg]Shaw Alia DO Work Phone: [phone] [place], [place] [address]Mugeklymub27-89-0094 13:55-0400Body mass index (BMI) [Ratio]40.51 kg/m2Amy Wendy PA Work Phone: [phone] [place], [place] [address]Ynfnplplva50-81-7145 13:55-0400Body pawevr110.05 kgAmy Wendy PA Work Phone: [phone] [place], [place] [address]Unolmlhxtu60-54-7581 13:55-0400Diastolic blood oakrrqdm88 mm[Hg]Yaritza Portillo PA Work Phone: [phone] sale to [facility] HospitalCaglbmeuaz65-46-1452 13:55-0400Systolic blood mm[Hg]Yaritza CAMARILLO Work Phone: [facility] HospitalSgbynmszcn55-37-2321 10:54-0400Body mass index (BMI) [Ratio]39.95 kg/m2Amy Wendy PA Work Phone: [place] [address]Faiwfykuen39-62-9789 10:54-0400Body gfociu032.58 kgAmy Wendy PA Work Phone: [phone] sale to [facility] HospitalYcunqukhem72-50-5828 10:54-0400Diastolic blood etejfzoh89 mm[Hg]Yaritza Portillo PA Work Phone: [phone]-Pending [facility] to [facility]0[place] [address]Dqasoznbwz39-69-0328 10:54-0400Systolic blood mm[Hg]Yaritza Portillo PA Work Phone: [phone] [place], [place] [address]Cdbpdjskfh90-61-1271 12:00-0400Body mass index (BMI) [Ratio]38.59 kg/z8Mbnwc Alia DO Work Phone: [phone] [place], [place] [address]Pgjtqwsvka76-07-5022 12:00-0400Body .97 kgCorey Alai DO Work Phone: [phone] [place] [address]-19-2024 12:00-0400Diastolic blood pmeeullb71 mm[Hg]Shaw Alia DO Work Phone: [phone] [place], [place] [address]Qjcvsxqbgn41-85-6593 12:00-0400Systolic blood ulzkapgx985 mm[Hg]Shaw Alia DO Work Phone: [phone] [place], [place] [address]Osksqynmew76-21-7178 11:24-0400Body mass index (BMI) [Ratio]37.61 kg/m2Amy Wendy PA Work Phone: [phone] sale to [facility] HospitalHdnrfflaro52-40-7029 11:24-0400Body .39 kgYaritza Portillo PA Work Phone: [phone] [place], [place] [address]Xriiucejon27-63-0938 11:24-0400Diastolic blood kfeyrnby88 mm[Hg]Yaritza Portillo PA Work Phone: [phone]-Pending sale to [facility] HospitalJjtttjlmcz32-95-1339 11:24-0400Systolic blood jgsnhokd991 mm[Hg]Yaritza CAMARILLO Work Phone: [facility] Encounters Encounter DateEncounter TypeCare ProviderFacilityStart: 01-25-2025 End: 50-93-7532Edjqhvgjh Result EncounterCorey Alia DO Work Phone: [facility] UnsolicitedStart: 01-25-2025 End: 41-26-1300Kkczpwhch Result EncounterCorey Alia DO Work Phone: [facility] UnsolicitedStart: 01-25-2025 End: 49-90-2830bottibmbecNEPPV KAMPFERNot AvailableStart: 01-25-2025 End: 72-11-1361Tbxtif outpatient new 10 minutesFafrano Nurse [facility] ObNOMS Steffanie OBGYNComment on above:[place]: 0h5rBvaqp: 01-21-2025 End: 18-21-0027nheecvydujLZRNB KAMPFERNot AvailableStart: 01-21-2025 End: 13-98-2372Etxfds outpatient visit 15 minutesSilva Olmstead LENS FINISHER Work Phone: noMS [facility] MedicineComment on above: Gastroesophageal reflux disease without esophagitis (Primary Dx)Start: 01-21-2025 End: 35-45-3894Evitun Jerri Olmstead LENS FINISHER Work Phone: [facility] [facility] MedicineStart: 01-21-2025 End: 80-34-1839Jtozhxwilliam Olmstead LENS FINISHER Work Phone: [facility] MedicineStart: 07-28-2024 End: 69-22-9704Fkdkkyckj department patient visitLEAH Geno Kvngca Van Ness campustart: 07-24-2024 End: 33-02-4800Kshqfpwilliam Soni MD Work Phone: noms FNR FMStart: 07-24-2024 End: 92-35-2625Gwrycvalbino Soni MD Work Phone: noms FNNish FMStart: 07-24-2024 End: 56-29-1801Pltmdm outpatient visit 15 minutesJeannie Soni MD Work Phone: NOMS FNR FMComment on above:Acute midline low back pain without sciatica (Primary Dx)Start: 07-24-2024 End: 92-47-4985qhnxcwzuhpKWZDEXVG HOHMANNot AvailableStart: 07-18-2024 End: 04-18-3914ffzljwkqfsSZYRF KAMPFERNot AvailableStart: 06-27-2024 End: 28-35-1756Kqouznkvu encounterJeannie Soni MD Work Phone: [facility] FNR FMStart: 06-13-2024 End: 81-47-7837cshrtuodrfSZU RAMEYNot AvailableStart: 06-13-2024 End: 68-81-6336Zofsigdfmy care visitYaritza CAMARILLO Work Phone: noMS BCP OBComment on above:Uses control (Primary Dx); 6 weeks follow-upStart: 05-30-2024 End: 61-69-1441Qwcygt outpatient visit 25 minutesSilva Olmstead NP Work Phone: NOM[facility] FNR FMComment on above:Blurred vision (Primary Dx); Transient visual loss of both eyes; Acute left-sided low back pain with left-sided sciatica; Viral gastroenteritisStart: 05-30-2024 End: 78-58-4670gvhslqmqqmZTQWN KAMPFERNot AvailableStart: 05-30-2024 End: 74-54-9353Smgyba flowsLuann Olmstead LENS FINISHER Work Phone: N[facility] FNR FMStart: 05-30-2024 End: 82-59-1330Gpocla flowsheetSmichel Olmstead LENS FINISHER Work Phone: [facility]OM[facility] FNR FMStart: 05-25-2024 End: 02-27-8281Nnfbxyhva encounterNgozi Ledezma LPN Work Phone: NOMS BCP OBStart: 04-28-2024 End: 22-95-4924Lipukxypb Result EncounterCorey Alia DO Work Phone: noms External Department UnsolicitedStart: 04-28-2024 End: 24-90-9757Vphnumxlj Result EncounterCorey Alia DO Work Phone: noms External Department UnsolicitedStart: 04-26-2024 End: 08-93-2041Swkggweop Result EncounterGeneric External Data ProviderNOMS External Department UnsolicitedStart: 04-26-2024 End: 13-35-6688Qwjmetuon Result EncounterGeneric External Data ProviderNOMS External Department UnsolicitedStart: 04-19-2024 End: 69-46-1544Bahxmw flowsheetCorey Alia DO Work Phone: noms BCP OBStart: 04-19-2024 End: 55-09-1555Eoddvv flowsheetCorey Alia DO Work Phone: noms BCP OBStart: 04-19-2024 End: 36-55-1688Xhcvayup flow sheetCorey Alia DO Work Phone: noms [facility] OBComment on above:38 weeks gestation of ; Third trimester ; Excessive growth affecting management of , antepartum, single or unspecified fetusStart: 04-19-2024 End: 13-61-4741fpvvrtbxsxSJIHM FAZIONot AvailableStart: 04-14-2024 End: 70-08-8003Bistklnil Result EncounterGeneric External Data ProviderNOMS External Department UnsolicitedStart: 04-14-2024 End: 30-12-4281Mhrxowjqs Result EncounterGeneric External Data ProviderNOMS External Department UnsolicitedStart: 04-11-2024 End: 67-50-7245Takuck Foster CAMARILLO Work Phone: noMS BCP OBStart: 04-11-2024 End: 58-35-6492Wlydhh Foster CAMARILLO Work Phone: noms BCP OBStart: 04-11-2024 End: 01-24-6904Khgjbbdew Result EncounterCorey Alia DO Work Phone: noMS External Department UnsolicitedStart: 04-11-2024 End: 44-53-5205qcqyweiqksFIQ Nakia AvailableStart: 04-11-2024 End: 55-49-5672Zksasqaq flow sheetYaritza CAMARILLO Work Phone: NOMS BCP OBComment on above:37 weeks gestation of ; Third trimester ; Excessive growth affecting management of in third trimester, single or unspecified fetusStart: 04-04-2024 End: 90-03-0001Rnvgxh flowsheetCorey Alia DO Work Phone: noMS BCP OBStart: 04-04-2024 End: 11-46-4151Yywghm flowsheetCorey Alia DO Work Phone: NOQT BCP OBStart: 04-04-2024 End: 32-54-4315Osgxoxlvc Result EncounterGeneric External Data ProviderNOHI External Department UnsolicitedStart: 04-04-2024 End: 22-26-8426Njlykvaj flow sheetCorey Alia DO Work Phone: noMS BCP OBComment on above:Third trimester ; 36 weeks gestation of ; Upper respiratory tract infection, unspecified type; Heartburn during in third trimesterStart: 04-04-2024 End: 13-47-3655kueexspnfrTRNMW FAZIONot AvailableStart: 03-26-2024 End: 00-83-9577Rojcuq Foster CAMARILLO Work Phone: NOMS BCP OBStart: 03-26-2024 End: 94-17-8972Rpvdgl flowsheetYaritza CAMARILLO Work Phone: NOMS BCP OBStart: 03-26-2024 End: 25-67-6084assfxggzciCFB WENDYNot AvailableStart: 03-26-2024 End: 88-07-2474Hkgguoxt flow sheetYaritza CAMARILLO Work Phone: NOMS BCP OBComment on above:Dyspepsia (Primary Dx); Third trimester ; 35 weeks gestation of pregnancyStart: 03-15-2024 End: 10-56-7579Yugbksxbs Result EncounterCorey Alia DO Work Phone: noms External Department UnsolicitedStart: 03-15-2024 End: 30-28-3537Kzqxeuihy Result EncounterCorey Alia DO Work Phone: noms External Department UnsolicitedStart: 03-08-2024 End: 94-78-6863Ktwdlf flowsheetCorey Alia DO Work Phone: NOWK BCP OBStart: 03-08-2024 End: 03-94-3199Fwcjxk flowsheetCorey Alia DO Work Phone: NOMS BCP OBStart: 03-08-2024 End: 39-79-7732camqhufvhyNITFO FAZIONot AvailableStart: 03-08-2024 End: 14-22-0809Qzezxryq flow sheetCorey Alia DO Work Phone: NOMS BCP OBComment on above:32 weeks gestation of ; Third trimester ; Gastroesophageal reflux in ; Nausea/vomiting in ; Hematuria, unspecified typeStart: 02-24-2024 End: 24-01-9102Kocthemyh Result EncounterCorey Alia DO Work Phone: noms External Department UnsolicitedStart: 02-24-2024 End: 27-23-3937Zuyeiiehg Result EncounterCorey Alia DO Work Phone: noms External Department UnsolicitedStart: 02-23-2024 End: 55-17-6791Axilhh Foster CAMARILLO Work Phone: NOMS BCP OBStart: 02-23-2024 End: 71-43-9968Exjwwu Foster CAMARILLO Work Phone: NOMS BCP OBStart: 02-23-2024 End: 92-49-2324fyathabzpyAQY Nakia AvailableStart: 02-23-2024 End: 36-70-7942Wdylrwoe flow sheetYaritza CAMARILLO Work Phone: NOMS BCP OBComment on above:Third trimester ; 30 weeks gestation of pregnancyStart: 02-07-2024 End: 31-37-2160Ccicvm Foster CAMARILLO Work Phone: NOMS BCP OBStart: 02-07-2024 End: 43-11-7678Yynkeo Foster CAMARILLO Work Phone: noms BCP OBStart: 02-07-2024 End: 89-01-7170fxsxhlmgkiCTI RAMEYNot AvailableStart: 02-07-2024 End: 43-43-1716Iqjbxohg flow Rick CAMARILLO Work Phone: [facility] OBComment on above:Second trimester ; 28 weeks gestation of ; Heartburn during in third trimester; Skin yeast infection; Excessive growth affecting management of , antepartum, single or unspecified fetusStart: 02-06-2024 End: 62-37-1417Tyotpqisc Result EncounterGeneric External Data ProviderNOMS External Department UnsolicitedStart: 02-06-2024 End: 68-45-5070Smjalngwu Result EncounterGeneric External Data ProviderNOMS External Department UnsolicitedStart: 01-12-2024 End: 17-49-7126Vankig flowsheetCorey Alia DO Work Phone: NOMS BCP OBStart: 01-12-2024 End: 55-74-0907Chmqlr flowsheetCorey Alia DO Work Phone: NOMS BCP OBStart: 01-12-2024 End: 50-35-3929Kvxflcrd flow sheetCorey Alia DO Work Phone: [facility] OBComment on above:24 weeks gestation of ; Diabetes mellitus screening; UTI symptomsStart: 12-16-2023 End: 45-46-8727Fcqbkozpp Result EncounterGeneric External Data ProviderNOMS External Department UnsolicitedStart: 12-16-2023 End: 16-47-6129Dvoumhnmy Result EncounterGeneric External Data ProviderNOMS External Department UnsolicitedStart: 12-14-2023 End: 67-23-4042Ubobhv Foster CAMARILLO Work Phone: noms BCP OBStart: 12-14-2023 End: 96-75-9817Nlenygevx Result EncounterGeneric External Data ProviderNOHI External Department UnsolicitedStart: 12-14-2023 End: 45-33-4177Mybjkrka Result EncounterYaritza Wendy CAMARILLO Work Phone: noHI External Department UnsolicitedStart: 12-14-2023 End: 69-92-2310Cdsrmheq Result EncounterYaritza Wendy CAMARILLO Work Phone: noHI External Department UnsolicitedStart: 12-14-2023 End: 63-55-2258Vrgmzy outpatient visit 15 minutesAmy Wendy CAMARILLO Work Phone: noms [facility] OBComment on above:20 weeks gestation of ; Well woman exam with routine gynecological exam; Screening, , for anatomic survey; STD exposure; Vaginal discharge; Nausea/vomiting in ; Gastroesophageal reflux in ; Nonintractable headache, unspecified chronicity pattern, unspecified headache type; Constipation, unspecified constipation typeStart: 12-14-2023 End: 36-68-3127Ksimsaa encounter procedureYaritza Wendy CAMARILLO Work Phone: noms HealthcareStart: 10-06-2023 End: 90-89-7826lqtocukkbmBIWWW R FAZIOFacility:[facility] HospitalStart: 04-22-2023 End: 73-55-7948bvndaxcuubUkir F BowerFacility:[facility] HospitalStart: 01-10-2023 End: 54-85-9883uandwuvyhjCmza F BowerFacility:[facility] HospitalStart: 12-11-2022 ambulatoryMary F BowerFacility:[facility] HospitalStart: 11-29-2022 End: 34-12-6446qxwzgnusnkZhtt F BowerFacility:[facility] HospitalStart: 11-17-2022 End: 77-13-9059tbkdbjrbfaGEHCU R FAZIOFacility:[facility] HospitalStart: 10-18-2022 End: 51-30-2565cpvsxyriguRnjo F BowerFacility:[facility] HospitalStart: 12-12-2020 End: 72-33-8506tgvkkfkzesXV BRANDON LEFacility:H1 Procedures DateProcedureProcedure DetailPerforming ClinicianStart: 19-19-2544FO OB TRANSVAGINALCorey Alia DO Work Phone: Start: 22-81-8066GYJ CBC WITH AUTO DIFFCorey Alia DO Work Phone: Start: 90-24-6124TJJK CBC WITH PLATELET NO DIFFERENTIALCorey Alia DO Work Phone: Start: 81-45-5173DPN DRUG SCREEN RAPID (URINE)Shaw Alia DO Work Phone: Start: 43-45-3162NF OB BPP W NON-STRESSGeneric External Data ProviderStart: 53-75-5990Dmqei dip stick/tablet rgnt non-auto w/o micrscpCorey Alia DO Work Phone: Start: 89-65-9414MQ OB GROWTHGeneric External Data ProviderStart: 47-98-2846JZ OB BPP W NON-STRESSCorey Alia DO Work Phone: Start: 60-63-7821Xumhz dip stick/tablet rgnt non-auto w/o micrscpAmy Wendy CAMARILLO Work Phone: Start: 04-03-7866Fykxd dip stick/tablet rgnt non-auto w/o micrscpCorey Alia DO Work Phone: Start: 73-55-5100DJW MISCELLANEOUS TESTCorey Alia DO Work Phone: Start: 26-58-3837Gjrcf dip stick/tablet rgnt non-auto w/o micrscpAmy Wendy CAMARILLO Work Phone: Start: 77-73-3316FA OB BPP W NON-STRESSCorey Alia DO Work Phone: Start: 84-82-4409Dtpvadii identified in Urine by CultureGeneric External Data ProviderStart: 64-32-2172OIR UA (CLEAN/CATCH) INTERNAL CONTROL SPECIALIST/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Shaw Alia DO Work Phone: Start: 12-22-7254Apcgo dip stick/tablet rgnt non-auto w/o micrscpCorey Alia DO Work Phone: Start: 06-86-6475PJ OB GROWTHCorey Alia DO Work Phone: Start: 08-04-0662Jlxbd dip stick/tablet rgnt non-auto w/o micrscpAmy Wendy CAMARILLO Work Phone: Start: 13-09-4754Ugvyq dip stick/tablet rgnt non-auto w/o micrscpAmy Wendy CAMARILLO Work Phone: Start: 25-67-6336OZQRGDO 1 HOURCorey Alia DO Work Phone: Start: 62-54-1218Otahv dip stick/tablet rgnt non-auto w/o micrscpCorey Alia DO Work Phone: Start: 92-48-5858JB OB ANATOMYGeneric External Data ProviderStart: 02-17-5685GQ OB CERVICAL LENGTHGeneric External Data Provider Start: 39-66-2479TQS, SERUM, OPEN SPINA BIFIDACorey Alia DO Work Phone: Start: 87-55-9198MXDCEDNZOP/DISCHARGE PLUS VAGINITIS (HTRX)Yaritza CAMARILLO Work Phone: Start: 81-63-4167Tnasz dip stick/tablet rgnt non-auto w/o micrscpAgabrielle CAMARILLO Work Phone: Start: 43-67-1220Ikbu cerv/vag auto thin layer prep mnl screenCorey Alia DO Work Phone: Plan of Treatment DateCare ActivityDetailAuthorStart: 02-27-2025 End: 34-84-3691Bsklbnv encounter rrqzgjupp13/05/2025 10:50 AM EST Routine [facility] [address] [place] [phone] Shaw Rojo DO [address] [place] [address] [facility]anie OBGYNStart: 01-25-2025 End: 27-62-7370AHB/RhABO/Rh Lab Routine Missed menses , unspecified gestational age ([facility]) Expected: 01/25/2025 (Approximate), Expires: 01/25/2026[facility] HealthcareComment on above:Expected: 01/25/2025 (Approximate), Expires: 01/25/2026Start: 01-25-2025 End: 26-62-5560Lsgmb type and Indirect antibody screen panel - BloodType and screen Lab Routine Missed menses , unspecified gestational age ([facility]) Expected: 01/25/2025 (Approximate), Expires: 01/25/2026[facility] Healthcare Comment on above:Expected: 01/25/2025 (Approximate), Expires: 01/25/2026Start: 01-25-2025 End: 43-74-5300Iwtjk of abuse panel - Urine by Screen methodRapid drug screen, urine Lab Routine , unspecified gestational age ([facility]) Encounter for supervision of normal first in first trimester ([facility]) Expected: 01/25/2025 (Approximate), Expires: 01/25/2026[facility] HealthcareComment on above: Expected: 01/25/2025 (Approximate), Expires: 01/25/2026Start: 01-25-2025 End: 71-00-1968cdbikipysy01/03/2025 10:00 AM EDT Initial [facility] [address] [address] [place] [address] [facility]anie OBGYNStart: 01-25-2025 End: 44-25-3546Wgedpkdfkwpp / ancillary services dkauyxkufd88/03/2025 9:30 AM EDT Ancillary Procedure [facility] [address] [facility] [place] [phone] [facility]Start: 01-18-2025 End: 49-64-6264HO Pelvis transvaginalUS OB transvaginal Imaging Routine Missed menses Positive urine test ([facility]) Expected: 01/18/2025, Expires: 04/19/2025[facility] Work Phone: comment on above:Expected: 01/18/2025, Expires: 04/19/2025Start: 36-18-8108Txliaubus vaccinationNOHI HealthcareStart: 07-24-2024 End: 23-15-9481OC Lumbar spine Views W flexion and W extensionXR lumbar spine 4+ views w flexion extension Imaging Routine Acute midline low back pain without sciatica Expected: 07/24/2024, Expires: 07/24/2025[facility] Work Phone: Comment on above:Expected: 07/24/2024, Expires: 07/24/2025Start: 07-24-2024 End: 82-71-7890Zzjfiqn encounter pbhtpumly35/01/2025 1:00 PM EDT Office Visit [facility] [address] [place] [phone] Jeannie Soni MD [address] [place] [address] ArrivedNOMS FNR FMComment on above:ArrivedStart: 06-13-2024 End: 41-52-1704zqwsgeudqp81/19/2025 1:20 PM EST Visit [facility] [address] [place] [phone] Yaritza Portillo PA [address] [place] [address] NOMS BCP OBStart: 05-30-2024 End: 64-03-9187Hafcnhd encounter procedureNOMS FNR FMComment on above:Arrived Start: 05-30-2024 End: 92-11-4591KB Head WO contrastCT head wo IV contrast Imaging High Priority Blurred vision Transient visual loss of both eyes Expected: 05/30/2024, Expires: 05/30/2025[facility] Work Phone: Comment on above:Expected: 05/30/2024, Expires: 05/30/2025Start: 04-19-2024 End: 28-04-4671NI biophysical profile w non stress testUS biophysical profile w non stress test Imaging Routine Excessive growth affecting management of , antepartum, single or unspecified fetus Expected: 04/19/2024 (Approximate), Expires: 04/19/2025[facility] Work Phone: comment on above:Expected: 04/19/2024 (Approximate), Expires: 04/19/2025Start: 04-19-2024 End: 87-19-8638Tjabpza encounter procedureNOMS BCP OBComment on above:Arrived Start: 04-11-2024 End: 08-77-9489AR for pregnancyUS OB SCAN FOR GROWTH Imaging Routine Excessive growth affecting management of in third trimester, single or unspecified fetus Expected: 04/11/2024 (Approximate), Expires: 2024[facility] Work Phone: comment on above:Expected: 04/11/2024 (Approximate), Expires: 04/11/2025Start: 04-11-2024 End: 97-95-7567Gvtvwjv encounter hcxaozcss84/18/2024 1:20 PM EST Routine [facility] [address] [place] [address] Yaritza Portillo PA [address] [place] [address] NOMS BCP OBStart: 04-04-2024 End: 20-12-5316XOUISCW, GROUP B STREP WITH SUSCEPTIBLITYCULTURE, GROUP B STREP WITH SUSCEPTIBLITY Lab Routine Third trimester Expected: 04/04/2024, Expires: 04/04/2025[facility] Work Phone: comment on above:Expected: 04/04/2024, Expires: 04/04/2025Start: 04-04-2024 End: 01-10-8956Mivkfbt encounter cznsyxtyt68/11/2024 1:30 PM EST Routine [facility] [address] [place] [address] Shaw Rojo, [address] [place] [address] ArrivedNOMS BCP OBComment on above: ArrivedStart: 03-26-2024 End: 82-87-2230Peikkps encounter ipdpdnzdq01/02/2024 10:20 AM EST Routine [facility] [address] [place] [phone] Yaritza Portillo, PA [address] [place] [address] [place] [address] NOMS BCP OBStart: 03-08-2024 End: 09-36-4243Axilzwb encounter lvobyqfgt11/14/2024 11:00 AM EST Routine [facility] [address] [place] [phone] Shaw Rojo, [address] [place] [address] NOMS BCP OBStart: 02-23-2024 End: 29-47-5543Ehuicai encounter papzdgkhr72/31/2024 1:30 PM EDT Routine [facility] [address] [place] [address] Yaritza Portillo PA [address] [place] [address] NOMS BCP OBStart: 02-08-2024 End: 07-78-4782Qrsypic encounter yhondhsck84/16/2024 1:50 PM EDT Routine [facility] [address] [place] [address] Yaritza Portillo PA [address] [place], [place] [phone] NOMS BCP OBStart: 02-07-2024 End: 23-53-0683SJ for pregnancyUS OB SCAN FOR GROWTH Imaging Routine Excessive growth affecting management of , antepartum, single or unspecified fetus Expected: 02/07/2024 (Approximate), Expires: 02/06/2025[facility] Work Phone: comment on above:Expected: 02/07/2024 (Approximate), Expires: 02/06/2025Start: 01-12-2024 End: 05-42-7859QBL panel - Blood by Automated countCBC Lab Routine Diabetes mellitus screening Expected: 01/12/2024 (Approximate), Expires: 01/11/2025[facility] Work Phone: comment on above:Expected: 01/12/2024 (Approximate), Expires: 01/11/2025Start: 01-12-2024 End: 42-86-6041Tuhfevtumfy of glucose 1 hour after glucose challenge for glucose tolerance testGlucose tolerance, 1 hour Lab Routine Diabetes mellitus screening Expected: 01/12/2024 (Approximate), Expires: 01/11/2025[facility] HealthcareComment on above:Expected: 01/12/2024 (Approximate), Expires: 01/11/2025Start: 01-12-2024 End: 52-23-8105Abnwxdu encounter lwudqwptj07/19/2024 11:50 AM EDT Routine [facility] OB [address] [place] [phone] Shaw Rojo, [address] [place], [place] [phone] [facility] OBStart: 34-33-4369Fidwojqjy vaccinationInfluenza Vaccine (#1)NOMS HealthcareStart: 12-14-2023 End: 40-53-3627Uwaie fetoprotein, maternalAlpha fetoprotein, maternal Lab Routine 20 weeks gestation of Expected: 12/14/2023 (Approximate), Expires: 02/13/2024[facility] HealthcareComment on above:Expected: 12/14/2023 (Approximate), Expires: 02/13/2024Start: 12-14-2023 End: 33-34-6694JD for pregnancyUS OB ANATOMY SINGLE W US OB CERVICAL LENGTH Imaging Routine Screening, , for anatomic survey Expected: 12/14/2023 (Approximate), Expires: 12/13/2024[facility] HealthcareComment on above: Expected: 12/14/2023 (Approximate), Expires: 12/13/2024Start: 12-14-2023 End: 71-72-1355Yeewxyc encounter evjedhtal95/21/2024 11:00 AM EDT Office Visit [facility] OB [address] [place] [phone] Yaritza Portillo PA [address] [place] [address] [facility] OBComment on above:ArrivedBacteria identified in Urine by CultureUrine culture Microbiology Routine Hematuria, unspecified type Ordered: 03/08/2024[facility] Tap[employer] Work Phone: comment on above:Ordered: 03/08/2024acteria identified in Urine by CultureUrine culture Microbiology Routine Missed menses Ordered: 01/25/2025[facility] HealthcareComment on above:Ordered: 01/25/2025BC W Auto Differential panel - BloodCBC and differential Lab Routine Missed menses , unspecified gestational age ([facility]) Ordered: 01/25/2025[facility] HealthcareComment on above:Ordered: 01/25/2025HLAMYDIA TRACHOMATIS (GENITO/STI) CHLAMYDIA TRACHOMATIS (GENITO/STI) Lab Routine STD exposure Ordered: 12/14/2023 [facility] HealthcareComment on above:Ordered: 12/14/2023ytology Cervical or vaginal smear or scraping studyPap Smear Pathology and Cytology Routine 20 weeks gestation of Well woman exam with routine gynecological exam Ordered: 12/14/2023[facility] Work Phone: comment on above:Ordered: 12/14/2023Hemoglobin A1c/Hemoglobin.total in BloodHemoglobin A1c Lab Routine Missed menses , unspecified gestational age ([facility]) Ordered: 01/25/2025[facility] HealthcareComment on above:Ordered: 01/25/2025Hepatitis B virus surface Ag [Presence] in Serum or Plasma by ImmunoassayHepatitis B surface antigen Lab Routine Missed menses , unspecified gestational age ([facility]) Ordered: 01/25/2025[facility] HealthcareComment on above:Ordered: 01/25/2025Hepatitis C virus Ab [Presence] in Serum or Plasma by ImmunoassayHepatitis C antibody Lab Routine Missed menses , unspecified gestational age ([facility]) Ordered: 01/25/2025[facility] HealthcareComment on above:Ordered: 01/25/2025HIV-1/HIV-2 antigen/antibody combination immunoassayHIV-1 and HIV-2 antibodies Lab Routine Missed menses , unspecified gestational age ([facility]) Ordered: 01/25/2025[facility] HealthcareComment on above:Ordered: 01/25/2025Neisseria gonorrhoeae DNA [Presence] in Unspecified specimen by HERBER with probe detectionNeisseria gonorrhea DNA probe, direct Lab Routine STD exposure Ordered: 12/14/2023[facility] HealthcareComment on above:Ordered: 12/14/2023eagin Ab [Presence] in Serum by RPRRPR Lab Routine Missed menses , unspecified gestational age ([facility]) Ordered: 01/25/2025[facility] HealthcareComment on above:Ordered: 01/25/2025 Rubella antibody, IgGRubella antibody, IgG Lab Routine Missed menses , unspecified gestational age ([facility]) Ordered: 01/25/2025[facility] HealthcareComment on above:Ordered: 01/25/2025SURESWAB(R) ADVANCED VAGINITIS PLUS, TMASURESWAB(R) ADVANCED VAGINITIS PLUS, TMA Pathology and Cytology Routine Vaginal discharge Ordered: 12/14/2023[facility] HealthcareComment on above:Ordered: 12/14/2023 Immunizations Immunization DateImmunizationNotesCare LvgxsbgqRfmyusck42-98-7128oxkedrrai A vaccine, pediatric/adolescent dosage, 2 dose scheduleYaritza CAMARILLO Work Phone: [facility] HospitalVbgisbibzw87-08-4981wlbmalkjv A vaccine, pediatric/adolescent dosage, 2 dose scheduleYaritza Wendy CAMARILLO Work Phone: [phone]-Pending sale to [facility] HospitalPhcimjmqzo55-18-1441hliaxglftcldj polysaccharide (groups A, C, Y and W-135) diphtheria toxoid conjugate vaccine (MCV4P)Yaritza Wendy CAMARILLO Work Phone: [phone]-[facility] to [facility] HospitalOlnleefxwf79-15-1364lamqyod toxoid, reduced diphtheria toxoid, and acellular pertussis vaccine, adsorbedAmy Wendy CAMARILLO Work Phone: [facility] HospitalSqdhbzilvs36-83-4049ytezoavqh virus vaccineYaritza Wendy CAMARILLO Work Phone: [phone] [place], [place] [address]Avdsqmvbva24-09-1259nswqbdcki virus vaccine, whole virusYaritza Wendy CAMARILLO Work Phone: [phone]-[facility] to [facility] HospitalTprtbxxxft58-07-4194qtufqhhfd virus vaccine, unspecified formulationYaritza CAMARILLO Work Phone: [phone] [place], [place] [address]Iautoiakys29-90-3771dzdlx uikdpcdfs-S3Y0-33, preservative-free, injectableYaritza Melendrezmarissa CAMARILLO Work Phone: [phone] sale to [facility] HospitalKkwythbagd86-50-4878jxpmrvxik virus vaccine, whole virusYaritza Melendrezmarissa CAMARILLO Work Phone: [phone] [place], [place] [id number], seasonal, injectableYaritza Melendrezmarissa CAMARILLO Work Phone: [phone] [place], [place] [id number], tetanus toxoids and acellular pertussis vaccine, 5 pertussis antigensYaritza CAMARILLO Work Phone: [phone] [place], [place] [address]Wofhnckumd31-33-9790qmppertpqut influenzae type b vaccine, HbOC conjugateYaritza Wendy CAMARILLO Work Phone: [phone] [place], [place] [address]Mxkxbbqxzp02-53-9382djxtukg, mumps and rubella virus vaccineYaritza CAMARILLO Work Phone: [phone] StreetXlhqyyefkg68-33-0010cgusupnfyy vaccine, inactivatedAmy Wendy CAMARILLO Work Phone: [phone] HospitalEyvuwajpvf20-11-8822emgddjzcxg, tetanus toxoids and acellular pertussis vaccine, unspecified formulationAmy Dallas PA Work Phone: [facility] HospitalGahgfxxzcu13-73-2567infcrsudxzf influenzae type b vaccine, conjugate unspecified formulationAmy Wendy PA Work Phone: [facility] HospitalMpujubuodg03-49-1978ljoqvfx, mumps and rubella virus vaccineAmy Wendy PA Work Phone: [facility] HospitalLmfonzjoug95-08-5836ukbymumbn virus vaccineAmy Wendy PA Work Phone: [phone] [place], [place] [address]Lljjirewed34-32-9024mbiajzoady, tetanus toxoids and acellular pertussis vaccine, unspecified formulationAmy Wendy PA Work Phone: [place] [address]Yutvgmuqai10-31-8055jzdzrnrrsfc influenzae type b vaccine, conjugate unspecified formulationAmy Wendy PA Work Phone: [phone] [place], [place] [address]Westbyyvjb38-12-5057iyxnqutnu B vaccine, pediatric or pediatric/adolescent dosageAmy Wendy PA Work Phone: [facility] HospitalArxntcuype43-44-9031rmcbdsxwlc vaccine, unspecified formulationAmy Wendy PA Work Phone: [phone] [place], [place] [address]Aibcnwsaqp48-83-6210qtzdjroapd, tetanus toxoids and acellular pertussis vaccine, unspecified formulationAmy Wendy PA Work Phone: [phone] [place], [place] [address]Eatghipqpk17-41-2755zratfujgidi influenzae type b vaccine, conjugate unspecified formulationAmy Wendy PA Work Phone: [phone] to [facility] HospitalOklcjnferb17-12-5049tuqszdpqznle conjugate vaccine, 7 valentAmy Wendy PA Work Phone: [phone] [facility] to [facility] HospitalHejzpymgab04-03-2589ownkkyhcik vaccine, unspecified formulationAmy Wendy PA Work Phone: [phone] [facility] to [facility] HospitalTrhexuyopi62-90-7137bynavjqzwy, tetanus toxoids and acellular pertussis vaccine, unspecified formulationAmy Wendy PA Work Phone: [phone] [place], [place] [address]Mfghgimkcg26-81-6049gdpihfxtzxs influenzae type b vaccine, conjugate unspecified formulationAmy Wendy PA Work Phone: [phone] HospitalMkpiocnhqm38-54-5806dikuywkyk B vaccine, pediatric or pediatric/adolescent dosageAmy Wendy PA Work Phone: [place] [address]Erfhohiuer00-61-6690xfllaflrzb vaccine, unspecified formulationYaritza CAMARILLO Work Phone: [facility] HospitalAilrxjobkg42-83-1217hvhdaoaof B vaccine, pediatric or pediatric/adolescent dosageYaritza CAMARILLO Work Phone: [facility] Healthcare Payers DatePayer CategoryPayerPolicy ID2023[place]icaid[place] [id number] 2022-Present [address] [place] [id number] 2023Medicaid (Managed Care)[place] [employer] [id number] 87-12-5559[facility]1.2.840.509247.1.13.693.2.7.9.366493.190167.315 [id number]ibxR2H359G194[id number] [id number] 2.16840.1.612313.3.579.[id number] 2.16.840.1.948134.3.579.[id number] 2.16840.1.193699.3.579.[id number] 2.16.840.1.685604.3.579.2.66462-43-5403Tbnhevr18982338 2.16.840.1.775194.3.579.2.[id number] 2.16.840.1.780984.3.579.[id number] 2.840.1.318342.3.57[id number] 2.840.1.445776.3.579.2.359330-33-4768Mmdlwgp46852928 2.840.1.817318.3.579.2.490648-91-2689Ixrkmym3899702 2.840.1.581775.3.579.2.783695-80-0626Szjqvyn7846148 2.840.1.098990.3.579.2.072186-04-6254Imkrhjy7144454 2.840.1.698409.3.579.2.940804-38-9860Xubjiul0563859 2.840.1.115080.3.579.2.209773-51-8490Avyymai8712772 2.840.1.079512.3.579.2.614260-81-4813Jucdbeo7408223 2.840.1.151521.3.579.2.[id number] 2.840.1.720163.3.579.2.043740-13-0710Odhgrrl1159139 2.840.1.009696.3.579.2.343740-74-4095Ntsuppi2456484 2.840.1.829076.3.579.2.479493-72-2589Cdoamfl6039447 2.16.840.1.912293.3.579.2.883300-03-4575Xliekuc3316400 2.16.840.1.079368.3.579.2.783980-91-8226IyxpldtWY875230760-32-8784Keoapys [id number] Social History DateTypeDetailFacilityStart: 04-13-2023 End: 50-01-5949Bdbcplk smoking status NHISEx-smokerNOMS HealthcareHistory of tobacco useCurrent smokerNOMS HealthcareHistory of tobacco useCigarette Smoker [facility] HealthcareStart: 01-73-4964Wbwlkty use and exposureUser of smokeless tobaccoNOMS HealthcareStart: 01-12-2024 End: 74-09-2428Oesycbrru beverage intakeCurrent drinker of alcohol (finding)NOMS HealthcareStart: 08-30-2022 End: 02-91-2778Wootmdc of Social functionNOMS HealthcareStart: 08-30-2022 End: 27-04-6811Teqizfr Use Disorder Identification Test - Consumption [AUDIT-C] NOMS HealthcareHow often to you have a drink containing alcohol?Monthly or less [facility] HealthcareHow many standard drinks containing alcohol do you have on a typical day?1 or 2NOMS HealthcareHow often do you have 6 or more drinks on 1 occasion?NeverNOMS HealthcareStart: 08-76-4188Zajxyag CommentVapes nicotine dailyNOMS HealthcareStart: 07-00-0700Cxkmbhb CommentAlcohol: 1 or 2 drinks on a typical day/monthly or less Caffeine: 1 cup dailyNOMS HealthcareStart: 35-90-2009HctxaxrouFRMM HealthcareStart: 47-35-8719Vqv assigned at birthNot on fileNOMS HealthcareStart: 51-45-7028Erzoale use and exposureSmokeless tobacco non-userNOMS HealthcareStart: 05-30-2024 End: 30-21-5075Iwcucdhma beverage intakeEx-drinker (finding)[facility] Start: 68-64-3558WimIrczveIZXV Healthcare Functional Status WsohBjhqfwrouiEmgbvcAbqalkpp34-60-3676Hrgjjaw Health Questionnaire 2 item (PHQ- 2) [Reported][facility] Jykydodfeb48-05-2595Tbxvizs Health Questionnaire 2 item (PHQ- 2) [Reported][facility] Healthcare Work Phone: [phone] Health Questionnaire 2 item (PHQ-2) [Reported][facility] Healthcare Work Phone: Clinical Notes 01-10-2023 to 01-25-2025 Note Date & AekqFoboThoeiqyx19-50-9953 History of Present illness Narrative* Caridad Alvarez - 01/25/2025 10:00 AM EDT Reason for Appointment: Patient ID: Brynn Wallace is a 24 y.o. female who presents for Amenorrhea Patient presents today for a Nurse OB Intake appointment. Patient is 9w1d with a Estimated Date of Delivery: 08/29/25 OB History Para Term AB Living 3 1 1 1 SAB IAB Ectopic Multiple Live Births 1 # Outcome Date GA Lbr Florencio/2nd Weight Sex Type Anes PTL Lv 3 Current 2 Term 04/27/24 39w5d Vag-Spont ELENA 1 Current Medications: has a current medication list which includes the following prescription(s): famotidine, ibuprofen, metoclopramide, and ondansetron odt. Medical History: Active Ambulatory Problems Diagnosis Date Noted Attention deficit hyperactivity disorder (ADHD) 08/30/2022 Bipolar II disorder (HCC) 08/30/2022 Acute non intractable tension-type headache 12/11/2019 Adjustment disorder with depressed mood 12/11/2019 Allergic rhinitis 11/23/2018 Amenorrhea 02/23/2021 Anxiety 03/23/2016 Attention deficit 03/04/2023 Chronic fatigue 03/04/2023 Chronic gastritis without bleeding 03/04/2023 Dysfunction of both eustachian tubes 12/07/2018 Dyspareunia due to medical condition in female 03/04/2023 Gastritis and duodenitis 06/03/2015 Grieving 03/04/2023 Infertility, female 03/04/2023 Menstrual cramps 07/04/2017 [...] tube, bilateral Ear pain, referred, bilateral Endometriosis Kidney stones 12/2023 Ovarian cyst PCOS (polycystic ovarian syndrome) Family History Problem Relation Name Age of Onset Myasthenia gravis Mother Other (brain shrinking) Mother Diabetes Maternal Grandmother Mental illness Maternal Grandmother Mental illness Mother's Sister Social History Tobacco Use Smoking status: Former Types: Cigarettes Smokeless tobacco: Never Tobacco comments: Vapes nicotine daily Vaping Use Vaping status: Former Substances: Nicotine, Flavoring Devices: Disposable Substance Use Topics Alcohol use: Not Currently Comment: Alcohol: 1 or 2 drinks on a typical day/monthly or less Caffeine: 1 cup daily Drug use: Yes Types: Marijuana Comment: ocassional. Past Surgical History: Procedure Laterality Date CT ANGIOGRAM HEART CORONARY 07/28/2024 CT ANGIOGRAM TAVR 07/28/2024 WISDOM TOOTH EXTRACTION 05/2016 teeth Allergies Allergen Reactions Buspirone Other Reaction(s): Increased anxiety/hallucinations Cholestatin Other Reaction(s): Unknown Lurasidone Other Reaction(s): restlessness Latuda Other Unknown Vitals: Estimated body mass index is 42.47 kg/m as calculated from the following: Height as of 07/24/24: 5' 4 . Weight as of this encounter: 247 lb 6.4 oz. BP: 102/60 Patient's last menstrual period was 11/22/2024. Assessment/Plan Diagnoses and all orders for this visit: Missed menses - US OB transvaginal; Future - Type and screen; Future - ABO/Rh; Future - CBC and differential - Hemoglobin A1c - RPR - Rubella antibody, IgG - Hepatitis B surface antigen - Hepatitis C antibody - HIV-1 and HIV-2 antibodies - Urine culture Positive urine test ([facility]) - US OB transvaginal; Future 9 weeks gestation of ([facility]) First trimester ([facility]) , unspecified gestational age ([facility]) - Type and screen; Future - ABO/Rh; Future - CBC and differential - Hemoglobin A1c - RPR - Rubella antibody, IgG - Hepatitis B surface antigen - Hepatitis C antibody - HIV-1 and HIV-2 antibodies - Rapid drug screen, urine; Future Encounter for supervision of normal first in first trimester ([facility]) - Rapid drug screen, urine; Future Nurse Note: Patient is currently on Reglen. Patient advised if Reglen doesn't work, she is to call office for optum. Follow Up: Patient is to have labs drawn at directed and return to office for initial OB appointment with provider. Patient may call office as needed with any concerns or questions. Nurse Visit Completed by: Caridad Alvarez documented in this encounterCooper County Memorial HospitalNpjaxvzyzm45-33-7389 History of Present illness Narrative* Silva Olmstead NP - 01/21/2025 4:00 PM EDT Images from the original note were not included. Subjective ?Quick Links Last Note in Specialty Snapshot Edit RFV/CC Edit Screenings Current Meds Patient ID: Brynn Wallace is a 24 y.o. female who presents for Chest Pain (Been having lung pain for about a month, that heat helped with the pain. The pain then traveled to [facility], pt is 8 weeks ). HPI History [...] declines. Assessment & Plan documented in this encounterCooper County Memorial HospitalXbrsihpddk86-18-4650 History of Present illness Narrative* Jeannie Soni MD - 07/24/2024 1:00 PM EDT Images from the original note [...] bowel or bladder issues. She consulted a business control specialist at her 6-week postpartumappointment, who suggested that the pain could be [...] such as walking, bending, and loading the pharmacovigilance scientist. She has not experienced any numbness, tingling, [...] views w flexion extension documented in this encounterCooper County Memorial HospitalKvosansdld26-49-2806 Telephone encounter Note* Telephone Encounter - Darryn Neto - 06/27/2024 3:09 PM EST Brynn said Ct was denied . Imaging said Ins may have denied it because she needs an MRI first -they didn't know for sure . Please give her a call , nabil Zeng [phone] [facility] Xqtvgyfrgb60-09-0773 Miscellaneous Notes* Telephone Encounter - Darryn Neto - 06/27/2024 3:09 PM EST Brynn said Ct was denied . Imaging said Ins may have denied it because she needs an MRI first -they didn't know for sure . Please give her a call , nabil Zeng [phone] documented in this encounterCooper County Memorial HospitalYmhbqfpuxk61-90-4723 History of Present illness Narrative* MARQUISE Scott - 06/13/2024 1:20 PM EST Reason for Appointment: Patient ID: Brynn Wallace [...] Date Noted Attention deficit hyperactivity disorder (ADHD) ([facility]) 08/30/2022 Bipolar II disorder ([facility]) 08/30/2022 Acute non intractable tension-type headache 12/11/2019 Adjustment disorder with depressed mood ([facility]) 12/11/2019 Allergic rhinitis 11/23/2018 Amenorrhea 02/23/2021 Anxiety 03/23/2016 Attention deficit 03/04/2023 Chronic fatigue 03/04/2023 Chronic gastritis without bleeding 03/04/2023 Dysfunction of both eustachian tubes 12/07/2018 Dyspareunia due to medical condition in female 03/04/2023 Gastritis and duodenitis 06/03/2015 Grieving ([facility]) 03/04/2023 Infertility, female 03/04/2023 Menstrual cramps 07/04/2017 Pelvic congestion syndrome 03/04/2023 Slow transit constipation 04/11/2017 Vitamin D deficiency 03/13/2019 Migraine with aura and with status migrainosus, not intractable ([facility]) 05/27/2020 Mixed anxiety and depressive disorder 12/25/2019 [...] tube, bilateral Adjustment disorder with depressed mood ([facility]) 12/11/2019 Allergic rhinitis unspecified seasonality, unspecified trigger [...] behalf of: MARQUISE Scott documented in this encounterCooper County Memorial HospitalOksfoovhwu98-89-8773 History of Present illness Narrative* Silva Olmstead NP - 05/30/2024 2:30 PM EST Images from the original note were not [...] is localized above the sacrum and radiates fdc up her back. She reports no history of falls, numbness, tingling, or leg swelling. This was her first experience with an epidural, and she required a second one after the first was dislodged. She has not experienced any loss of bowel or bladder control,although she mentions a recent stomach bug that caused involuntary gas passage for the first 2 days. Having episodes of diarrhea up to 5-6 times a day. Her 6-week follow- up with her toll booth operator is scheduled in 2 weeks. She also reports no ankle swelling. On 05/25, she had an episode oftransient blurred vision. She could not see her [...] rest. Keep to a bland diet, BRAT dietreviewed, advance as tolerated. Encouraged Probiotic. Wash hands often, and avoid sharing food/drinks. Instructed to notify office if symptoms persist and will obtain stool cultures to r/o bacterial cause at that time. documented in this encounterCooper County Memorial HospitalEtauupfhfn49-39-5852 Telephone encounter Note* Telephone Encounter - Ngozi Ledezma LPN - 05/25/2024 10:24 AM EST Hi, my name is Morgan Wallace. I [...] I am exactly 1 month . Um, soI was just calling just to talk to somebody about it. I am going to give me a call back at [phone]. Thanks. I called pt back and asked [...] go get evaluated at the ER. PVU [facility] Iivjxpgmsa35-17-8658 Miscellaneous Notes* Telephone Encounter - Ngozi Ledezma LPN - 05/25/2024 10:24 AM EST Hi, my name is Morgan Wallace. I [...] I am exactly 1 month . Um, soI was just calling just to talk to somebody about it. I am going to give me a call back at [phone]. Thanks. I called pt back and asked [...] told her that I could ask Dr. Rooj about that and then let her know. PVU I did tell pt to try tylenol and ibuprofen and if the pain got bad to go get evaluated at the ER. PVU documented in this encounterCooper County Memorial HospitalAwassxdpka33-50-0918 History of Present illness Narrative* Tracey Mark LPN - 04/19/2024 11:00 AM EST Reason for Appointment: Patient ID: Brynn Wallace [...] Date Noted Attention deficit hyperactivity disorder (ADHD) ([facility]) 08/30/2022 Bipolar II disorder ([facility]) 08/30/2022 Acute non intractable tension-type headache 12/11/2019 Adjustment disorder with depressed mood ([facility]) 12/11/2019 Allergic rhinitis 11/23/2018 Amenorrhea 02/23/2021 Anxiety 03/23/2016 Attention deficit 03/04/2023 Chronic fatigue 03/04/2023 Chronic gastritis without bleeding 03/04/2023 Dysfunction of both eustachian tubes 12/07/2018 Dyspareunia due to medical condition in female 03/04/2023 Gastritis and duodenitis 06/03/2015 Grieving ([facility]) 03/04/2023 Infertility, female 03/04/2023 Menstrual cramps 07/04/2017 Pelvic congestion syndrome 03/04/2023 Slow transit constipation 04/11/2017 Vitamin D deficiency 03/13/2019 Migraine with aura and with status migrainosus, not intractable ([facility]) 05/27/2020 Mixed anxiety and depressive disorder 12/25/2019 [...] tube, bilateral Adjustment disorder with depressed mood ([facility]) 12/11/2019 Allergic rhinitis unspecified seasonality, unspecified trigger [...] nursing note reviewed. Exam conducted with a utility bag assembler present. Vitals: Estimated body mass index is [...] of: Shaw Rojo DO documented in this encounterCooper County Memorial HospitalCyytnppamh70-63-2332 History of Present illness Narrative* MARQUISE Scott - 04/11/2024 1:20 PM EST Reason for Appointment: Patient ID: Brynn Wallace [...] Date Noted Attention deficit hyperactivity disorder (ADHD) ([facility]) 08/30/2022 Bipolar II disorder ([facility]) 08/30/2022 Acute non intractable tension-type headache 12/11/2019 Adjustment disorder with depressed mood ([facility]) 12/11/2019 Allergic rhinitis 11/23/2018 Amenorrhea 02/23/2021 Anxiety 03/23/2016 Attention deficit 03/04/2023 Chronic fatigue 03/04/2023 Chronic gastritis without bleeding 03/04/2023 Dysfunction of both eustachian tubes 12/07/2018 Dyspareunia due to medical condition in female 03/04/2023 Gastritis and duodenitis 06/03/2015 Grieving ([facility]) 03/04/2023 Infertility, female 03/04/2023 Menstrual cramps 07/04/2017 Pelvic congestion syndrome 03/04/2023 Slow transit constipation 04/11/2017 Vitamin D deficiency 03/13/2019 Migraine with aura and with status migrainosus, not intractable ([facility]) 05/27/2020 Mixed anxiety and depressive [...] tube, bilateral Adjustment disorder with depressed mood ([facility]) 12/11/2019 Allergic rhinitis unspecified seasonality, [...] calculated from the following: Height as of 4/9/24: 5' 4 . Weight as of this [...] for nst and bpp today at the [facility] Orders Placed This Encounter Procedures US OB SCAN FOR GROWTH POCT urinalysis dipstick manually resulted Follow Up: Patient is to return to office in 1 week for routine OB appointment. Documented by MARQUISE Scott on behalf of: MARQUISE Scott documented in this encounterCooper County Memorial HospitalAbhfpjqkhx92-31-5627 History of Present illness Narrative* Tracey Mark, JEANIE - 04/04/2024 1:30 PM EST Reason for Appointment: Patient ID: Brynn Wallace [...] Date Noted Attention deficit hyperactivity disorder (ADHD) ([facility]) 08/30/2022 Bipolar II disorder ([facility]) 08/30/2022 Acute non intractable tension-type headache 12/11/2019 Adjustment disorder with depressed mood ([facility]) 12/11/2019 Allergic rhinitis 11/23/2018 Amenorrhea 02/23/2021 Anxiety 03/23/2016 Attention deficit 03/04/2023 Chronic fatigue 03/04/2023 Chronic gastritis without bleeding 03/04/2023 Dysfunction of both eustachian tubes 12/07/2018 Dyspareunia due to medical condition in female 03/04/2023 Gastritis and duodenitis 06/03/2015 Grieving ([facility]) 03/04/2023 Infertility, female 03/04/2023 Menstrual cramps 07/04/2017 Pelvic congestion syndrome 03/04/2023 Slow transit constipation 04/11/2017 Vitamin D deficiency 03/13/2019 Migraine with aura and with status migrainosus, not intractable ([facility]) 05/27/2020 Mixed anxiety and depressive disorder 12/25/2019 [...] tube, bilateral Adjustment disorder with depressed mood ([facility]) 12/11/2019 Allergic rhinitis unspecified seasonality, unspecified trigger [...] nursing note reviewed. Exam conducted with a utility bag assembler present. Vitals: Estimated body mass index is [...] of: Shaw Rojo DO documented in this encounterCooper County Memorial HospitalOndwccfvuo88-64-5068 History of Present illness Narrative* MARQUISE Scott - 03/26/2024 10:20 AM EST Reason for Appointment: Patient ID: Brynn Wallace [...] Date Noted Attention deficit hyperactivity disorder (ADHD) ([facility]) 08/30/2022 Bipolar II disorder ([facility]) 08/30/2022 Acute non intractable tension-type headache 12/11/2019 Adjustment disorder with depressed mood ([facility]) 12/11/2019 Allergic rhinitis 11/23/2018 Amenorrhea 02/23/2021 Anxiety 03/23/2016 Attention deficit 03/04/2023 Chronic fatigue 03/04/2023 Chronic gastritis without bleeding 03/04/2023 Dysfunction of both eustachian tubes 12/07/2018 Dyspareunia due to medical condition in female 03/04/2023 Gastritis and duodenitis 06/03/2015 Grieving ([facility]) 03/04/2023 Infertility, female 03/04/2023 Menstrual cramps 07/04/2017 Pelvic congestion syndrome 03/04/2023 Slow transit constipation 04/11/2017 Vitamin D deficiency 03/13/2019 Migraine with aura and with status migrainosus, not intractable ([facility]) 05/27/2020 Mixed anxiety and depressive [...] tube, bilateral Adjustment disorder with depressed mood ([facility]) 12/11/2019 Allergic rhinitis unspecified seasonality, [...] behalf of: MARQUISE Scott documented in this encounterCooper County Memorial [id number] History of Present illness Narrative* Sera Parsons, JEANIE - 03/08/2024 11:00 AM EST Reason for Appointment: Patient ID: Brynn Wallace [...] Date Noted Attention deficit hyperactivity disorder (ADHD) ([facility]) 08/30/2022 Bipolar II disorder ([facility]) 08/30/2022 Acute non intractable tension-type headache 12/11/2019 Adjustment disorder with depressed mood ([facility]) 12/11/2019 Allergic rhinitis 11/23/2018 Amenorrhea 02/23/2021 Anxiety 03/23/2016 Attention deficit 03/04/2023 Chronic fatigue 03/04/2023 Chronic gastritis without bleeding 03/04/2023 Dysfunction of both eustachian tubes 12/07/2018 Dyspareunia due to medical condition in female 03/04/2023 Gastritis and duodenitis 06/03/2015 Grieving ([facility]) 03/04/2023 Infertility, female 03/04/2023 Menstrual cramps 07/04/2017 Pelvic congestion syndrome 03/04/2023 Slow transit constipation 04/11/2017 Vitamin D deficiency 03/13/2019 Migraine with aura and with status migrainosus, not intractable ([facility]) 05/27/2020 Mixed anxiety and depressive disorder 12/25/2019 [...] tube, bilateral Adjustment disorder with depressed mood ([facility]) 12/11/2019 Allergic rhinitis unspecified seasonality, unspecified trigger [...] nursing note reviewed. Exam conducted with a utility bag assembler present. Vitals: Estimated body mass index is [...] Zofran refills sent to pharmacy as well. Patientto return to clinic in 2 weeks for routine OB appointment. -*-unfortunately, sample was disposed of prior to being sent out for culture. 3:42pm Called patientand informed her that order could be sent to lab of her choice to be sent out. Patient would like for order to be sent to [facility] so she did not have to drive back to [place]. Informed patient that order would be sent to [facility] Scheduling for her to go give urine sample. --ss Documented by Sera Parsons LPN on behalf of: Shaw Rojo DO documented in this encounterCooper County Memorial [id number] History of Present illness Narrative* MARQUISE Scott - 02/23/2024 1:30 PM EDT Reason for Appointment: Patient ID: Brynn Wallace [...] Date Noted Attention deficit hyperactivity disorder (ADHD) ([facility]) 08/30/2022 Bipolar II disorder ([facility]) 08/30/2022 Acute non intractable tension-type headache 12/11/2019 Adjustment disorder with depressed mood ([facility]) 12/11/2019 Allergic rhinitis 11/23/2018 Amenorrhea 02/23/2021 Anxiety 03/23/2016 Attention deficit 03/04/2023 Chronic fatigue 03/04/2023 Chronic gastritis without bleeding 03/04/2023 Dysfunction of both eustachian tubes 12/07/2018 Dyspareunia due to medical condition in female 03/04/2023 Gastritis and duodenitis 06/03/2015 Grieving ([facility]) 03/04/2023 Infertility, female 03/04/2023 Menstrual cramps 07/04/2017 Pelvic congestion syndrome 03/04/2023 Slow transit constipation 04/11/2017 Vitamin D deficiency 03/13/2019 Migraine with aura and with status migrainosus, not intractable ([facility]) 05/27/2020 Mixed anxiety and depressive [...] tube, bilateral Adjustment disorder with depressed mood ([facility]) 12/11/2019 Allergic rhinitis unspecified seasonality, unspecified trigger [...] behalf of: MARQUISE Scott documented in this encounterCooper County Memorial [id number] History of Present illness Narrative* MARQUISE Scott - 02/07/2024 10:10 AM EDT Reason for Appointment: Patient ID: Brynn Wallace [...] Date Noted Attention deficit hyperactivity disorder (ADHD) ([facility]) 08/30/2022 Bipolar II disorder ([facility]) 08/30/2022 Acute non intractable tension-type headache 12/11/2019 Adjustment disorder with depressed mood ([facility]) 12/11/2019 Allergic rhinitis 11/23/2018 Amenorrhea 02/23/2021 Anxiety 03/23/2016 Attention deficit 03/04/2023 Chronic fatigue 03/04/2023 Chronic gastritis without bleeding 03/04/2023 Dysfunction of both eustachian tubes 12/07/2018 Dyspareunia due to medical condition in female 03/04/2023 Gastritis and duodenitis 06/03/2015 Grieving ([facility]) 03/04/2023 Infertility, female 03/04/2023 Menstrual cramps 07/04/2017 Pelvic congestion syndrome 03/04/2023 Slow transit constipation 04/11/2017 Vitamin D deficiency 03/13/2019 Migraine with aura and with status migrainosus, not intractable ([facility]) 05/27/2020 Mixed anxiety and depressive [...] tube, bilateral Adjustment disorder with depressed mood ([facility]) 12/11/2019 Allergic rhinitis unspecified seasonality, [...] nursing note reviewed. Exam conducted with a utility bag assembler present. Vitals: Estimated body mass index is 39.95 kg/m as calculated from the following: Height as of 4/9/24: 5' 4 . Weight as of this [...] day. Pt has complaints of heartburn and rashbetween breast rx for reglan and diflucan faxed [...] behalf of: MARQUISE Scott documented in this encounterCooper County Memorial [id number] History of Present illness Narrative* Sera Parsons LPN - 01/12/2024 11:50 AM EDT Reason for Appointment: Patient ID: Brynn Wallace [...] Date Noted Attention deficit hyperactivity disorder (ADHD) ([facility]) 08/30/2022 Bipolar II disorder ([facility]) 08/30/2022 Acute non intractable tension-type headache 12/11/2019 Adjustment disorder with depressed mood ([facility]) 12/11/2019 Allergic rhinitis 11/23/2018 Amenorrhea 02/23/2021 Anxiety 03/23/2016 Attention deficit 03/04/2023 Chronic fatigue 03/04/2023 Chronic gastritis without bleeding 03/04/2023 Dysfunction of both eustachian tubes 12/07/2018 Dyspareunia due to medical condition in female 03/04/2023 Gastritis and duodenitis 06/03/2015 Grieving ([facility]) 03/04/2023 Infertility, female 03/04/2023 Menstrual cramps 07/04/2017 Pelvic congestion syndrome 03/04/2023 Slow transit constipation 04/11/2017 Vitamin D deficiency 03/13/2019 Migraine with aura and with status migrainosus, not intractable ([facility]) 05/27/2020 Mixed anxiety and depressive disorder 12/25/2019 [...] tube, bilateral Adjustment disorder with depressed mood ([facility]) 12/11/2019 Allergic rhinitis unspecified seasonality, unspecified trigger [...] nursing note reviewed. Exam conducted with a utility bag assembler present. Vitals: Estimated body mass index is [...] for CBC and 1hr gtt. Patient to returnto clinic in 4 weeks for routine OB appointment. Documented by Sera Parsons LPN on behalf of: Shaw Rojo DO documented in this encounterCooper County Memorial [id number] History of Present illness Narrative* MARQUISE Scott - 12/14/2023 11:00 AM EDT Reason for Appointment: Patient ID: Brynn Wallace [...] Date Noted Attention deficit hyperactivity disorder (ADHD) ([facility]) 08/30/2022 Bipolar II disorder ([facility]) 08/30/2022 Acute non intractable tension-type headache 12/11/2019 Adjustment disorder with depressed mood ([facility]) 12/11/2019 Allergic rhinitis 11/23/2018 Amenorrhea 02/23/2021 Anxiety 03/23/2016 Attention deficit 03/04/2023 Chronic fatigue 03/04/2023 Chronic gastritis without bleeding 03/04/2023 Dysfunction of both eustachian tubes 12/07/2018 Dyspareunia due to medical condition in female 03/04/2023 Gastritis and duodenitis 06/03/2015 Grieving ([facility]) 03/04/2023 Infertility, female 03/04/2023 Menstrual cramps 07/04/2017 Pelvic congestion syndrome 03/04/2023 Slow transit constipation 04/11/2017 Vitamin D deficiency 03/13/2019 Migraine with aura and with status migrainosus, not intractable ([facility]) 05/27/2020 Mixed anxiety and depressive [...] tube, bilateral Adjustment disorder with depressed mood ([facility]) 12/11/2019 Allergic rhinitis unspecified seasonality, [...] nursing note reviewed. Exam conducted with a utility bag assembler present. Vitals: Estimated body mass index is [...] behalf of: MARQUISE Scott documented in this encounterCooper County Memorial [id number] NotePatient Education Materials Follows:Disease Sore Throat A sore throat is [...] these instructions at home: Medicines ? Take fpjg-aly-ekengwt and prescription medicines only as told by [...] and water are not available, use hand roper operator. Contact a health care provider if: ? [...] can cause a sore throat. ? Take srtp-txn-ofmhnze medicines only as told by your health [...] provider. Document Revised: 07/08/2021 Document Reviewed: 07/08/2021 [employer] Patient Education ? 2022 [employer]. Viral Illness, Adult Viruses are tiny germs [...] cells in your body, multiply, and cause theinfected cells to work abnormally or . When these cells , they release more of the virus. When this happens, you develop symptoms of the illness, and the virus continues to spread to other cells. If the virus takes over the function of the cell, it can cause the cell to divide and grow out ofcontrol. This happens when a virus causes cancer. [...] person who is (more content not included)... [facility]* Diagnosis Second trimester state, incidental 28 weeks [...] Esophageal reflux Missed menses Positive urine test ([facility]) documented [facility] encounter [facility]* Diagnosis Missed menses Positive urine test ([facility]) 9 weeks gestation of ([facility]) First trimester ([facility]) state, incidental , unspecified gestational age ([facility]) Encounter for supervision of normal first in first trimester ([facility]) documented in this encounter [facility] Summary [...] section and content) DATE CREATED AUTHOR 12/15/2020 [facility] DATE CREATED AUTHOR AUTHOR'S ORGANIZ ATION 06/23/[address] [facility] [employer] DATE CREATED AUTHOR AUTHOR'S ORGANIZ ATION 10/13/2023 [facility] DATE CREATED AUTHOR AUTHOR'S ORGANIZ ATION 07/30/2024 [facility] DATE CREATED AUTHOR AUTHOR'S ORGANIZ ATION 01/27/[address] [facility] EPIC Care Teams (unrecognized sec tion and content) Team MemberRelationshipSpecialtyStart DateEnd Date Jeannie Soni MD [address] [place] [address] PCP - GeneralFamily Medicine09/21/22 Sarah Nelson LENS FINISHER [address] [place] [address] Nurse PractitionerFamily Medicine09/21/22Team MemberRelationshipSpecialtyStart DateEnd Date Jeannie Soni MD [address] [place] [address] PCP - GeneralFamily Medicine09/21/22 Sarah Nelson LENS FINISHER [address] [facility] [place] [address] Nurse PractitionerNort[facility] [place]09/21/22Te MemberRelationshipSpecialtyStart [facility] Jeannie Soni MD [address] [facility] [place] [address] PCP - [facility]09/21/22 Sarah Nelson NP [address] [facility] [place] [address] Nurse PractitionerNortheast [facility] [place]09/21/22Te MemberRelationshipSpecialtyStart [facility] Jeannie Soni MD [address] [facility] [place] [address] PCP - [facility]09/21/22 Anila Schneider, WELDING SYSTEMS AND EQUIPMENT REPAIRER-INTERNAL CONTROL SPECIALIST [address] [facility] [address] [place] [address] PCP - [facility]08/23/22 Sarah Nelson, LENS FINISHER [address] [facility] [place] [address] Nurse PractitionerNortheast Georgia [facility] [place]09/21/22Te MemberRelationshipSpecialtyStart End Jeannie Soni MD [address] [facility] [place] [address] PCP - [facility]09/21/22 Anila Schneider WELDING SYSTEMS AND EQUIPMENT REPAIRER-INTERNAL CONTROL SPECIALIST [address] [facility] [address] [place] [address] PCP - [employer]08/23/22 Sarah Nelson NP [address] [place] [address] Nurse PractitionerGreater Regional Healthly Medicine09/21/22Team MemberRelationshipSpecialtyStart End Jeannie Soni MD [address] [place] [address] PCP - Generalmily Medicine09/21/22 Anila Schneider, WELDING SYSTEMS AND EQUIPMENT REPAIRER-INTERNAL CONTROL SPECIALIST [address] [facility] [address] [place] [address] PCP - [employer]08/23/22 Sarah Nelson NP [address] [place] [address] Nurse PractitionerNortheast [facility] [place]09/21/22Team MemberRelationshipSpecialtyStart End Jeannie Soni MD [address] [facility] [place] [address] PCP - Generalmily Medicine09/21/22 Anila Schneider, WELDING SYSTEMS AND EQUIPMENT REPAIRER-INTERNAL CONTROL SPECIALIST [address] [facility] [address] [place] [address] PCP - [employer]08/23/22 Sarah Nelson NP [address] [place] [address] Nurse PractitionerGreater Regional Healthly Medicine09/21/22Team MemberRelationshipSpecialtyStart End Date Jeannie Soni MD [address] [place] [address] PCP - GeneralFamily Medicine09/21/22 Anila Schneider, WELDING SYSTEMS AND EQUIPMENT REPAIRER-[facility] [address] [facility] [address] [place] [address] PCP - [employer]08/23/22 Sarah Nelson, LENS FINISHER [address] [place] [address] Nurse PractitionerThe [facility] Medicine09/21/22Te MemberRelationshipSpecialtyStart DateEnd Date Jeannie Soni MD [address] [facility] [place] [address] PCP - [facility]The [facility] Medicine09/21/22 Anila Schneider, WELDING SYSTEMS AND EQUIPMENT REPAIRER-INTERNAL CONTROL SPECIALIST [address] [facility] [address] [place] [address] PCP - [employer]08/23/22 Sarah Nelson, LENS FINISHER [address] [facility] [place] [address] Nurse PractitionerThe [facility] Medicine09/21/22Te MemberRelationshipSpecialtyStart DateEnd Date Jeannie Soni MD [address] [facility] [place] [address] PCP - GeneralNortheast [facility] [place]09/21/22 Anila Schneider, WELDING SYSTEMS AND EQUIPMENT REPAIRER-INTERNAL CONTROL SPECIALIST [address] [facility] [address] [place] [address] PCP - [employer]08/23/22 Sarah Nelson NP [address] [facility] [place] [address] Nurse PractitionerGreater Regional Healthly Medicine09/21/22Team MemberRelationshipSpecialtyStart DateEnd Date Jeannie Soni MD [address] [facility] [place] [address] PCP - Generalmily Medicine09/21/22 Anila Schneider, WELDING SYSTEMS AND EQUIPMENT REPAIRER-INTERNAL CONTROL SPECIALIST [address] [facility] [address] [place] [address] PCP - [employer]08/23/22 Sarah Nelson NP [address] [place] [address] Nurse PractitionerNortheast Georgia Medical Center [place]09/21/22Team MemberRelationshipSpecialtyStart End Jeannie Soni MD [address] [facility] [place] [address] PCP - GeneralFamily Medicine09/21/22 Anila Schneider, WELDING SYSTEMS AND EQUIPMENT REPAIRER-INTERNAL CONTROL SPECIALIST [address] [facility] [address] [place] [address] PCP - [employer]08/23/22 Sarah Nelson NP [address] [place] [address] Nurse PractitionerThe [facility] Medicine09/21/22Team MemberRelationshipSpecialtyStart End Date Jeannie Soni MD [address] [place] [address] PCP - GeneralFamily Medicine09/21/22 Anila Schneider, WELDING SYSTEMS AND EQUIPMENT REPAIRER-INTERNAL CONTROL SPECIALIST [address] [facility] [address] [place] [address] PCP - [employer]08/23/22 Sarah Nelson, LENS FINISHER [address] [place] [address] Nurse PractitionerThe [facility] Medicine09/21/22Te MemberRelationshipSpecialtyStart DateEnd Date Jeannie Soni MD [address] [place] [address] PCP - GeneralGreater Regional Healthly Medicine09/21/22 Anila Schneider, WELDING SYSTEMS AND EQUIPMENT REPAIRER-INTERNAL CONTROL SPECIALIST [address] [facility] [address] [place] [address] PCP - [employer]08/23/22 Sarah Nleson, LENS FINISHER [address] [place] [address] Nurse PractitionerThe [facility] Medicine09/21/22Te MemberRelationshipSpecialtyStart DateEnd Date Jeannie Soni MD [address] [place] [address] PCP - GeneralThe [facility] Medicine09/21/22 Anila Schneider, WELDING SYSTEMS AND EQUIPMENT REPAIRER-INTERNAL CONTROL SPECIALIST [address] [facility] [address] [place] [address] PCP - [employer]08/23/22 Sarah Nelson NP [address] [place] [address] Nurse PractitionerThe [facility] Medicine09/21/22Team MemberRelationshipSpecialtyStart DateEnd Date Jeannie Soni MD [address] [place] [address] PCP - GeneralThe [facility] Medicine09/21/22 Anila Schneider APRN-INTERNAL CONTROL SPECIALIST [address] [place] [address], [place] [address] PCP - [employer]08/23/22 Sarah Nelson NP [address] [place] [address] Nurse PractitionerNortheast Georgia Medical Center [place]09/21/22Te MemberRelationshipSpecialtyStart DateEnd Date Jeannie Soni MD [address] [place] [address] PCP - GeneralThe [facility] Medicine09/21/22 Sarah Nelson NP [address] [place] [address] Nurse PractitionerThe [facility] Medicine09/21/22Team MemberRelationshipSpecialtyStart DateEnd Date Jeannie Soni MD [address] [place] [address] PCP - GeneralGreater Regional Healthly Medicine09/21/22 Sarah Nelson NP [address] [place] [address] Nurse PractitionerGreater Regional Healthly Medicine09/21/22Te MemberRelationshipSpecialtyStart End Jeannie Soni MD [address] [facility] [place] [address] PCP - GeneralFawvly Medicine09/21/22 Anila Schneider APRN-INTERNAL CONTROL SPECIALIST [address] [place] [address] [place] [address] P[facility] - [facility]08/23/22 Sarah Nelson, LENS FINISHER [address] [facility] [place] [address] Nurse PractitionerThe [facility] Medicine09/21/22Te MemberRelationshipSpecialtyStart End Jeannie Soni MD [address] [facility] [place] [address] PCP - GeneralThe [facility] Medicine09/21/22 Saarh Nelson, LENS FINISHER [address] [facility] [place] [address] Nurse PractitionerGreater Regional Healthly Medicine09/21/22Te MemberRelationshipSpecialtyStart End Date Jeannie Soni MD [address] [facility] [place] [address] PCP - GeneralThe [facility] Medicine09/21/22 Sarah Nelson, LENS FINISHER [address] [facility] [place] [address] Nurse PractitionerGreater Regional Healthly Medicine09/21/22Team MemberRelationshipSpecialtyStart DateEnd Date Jeannie Soni MD [address] [place] [address] PCP - GeneralFamily Medicine09/21/22 Sarah Nelson NP [address] [place] [address] Nurse PractitionerGreater Regional Healthly Medicine09/21/22Te MemberRelationshipSpecialtyStart DateEnd Date Jeannie Soni MD [address] [place] [address] PCP - GeneralGreater Regional Healthly Medicine09/21/22 Jeannie Soni MD [address] [place] [address] PCP - [employer]08/23/24 Sarah Nelson NP [address] [place] [address] Nurse PractitionerThe [facility] Medicine09/21/22Te MemberRelationshipSpecialtyStart DateEnd Date Jeannie Soni MD [address] [place] [address] PCP - Generalmily Medicine09/21/22 Jeannie Soni MD [address] [place] [address] PCP - [employer]08/23/24 Sarah Nelson NP [address] [place] [address] Nurse PractitionerGreater Regional Healthly Medicine09/21/22Te MemberRelationshipSpecialtyStart DateEnd Date Jeannie Soni MD [address] [place] [address] PCP - Generalmily Medicine09/21/22 Jeannie Soni MD [address] [place] [address] PCP - [employer]08/23/24 Sarah Nelson NP [address] [place] [address] Nurse PractitionerNortheast Georgia Medical [facility] [place]09/21/22Te MemberRelationshipSpecialtyStart DateEnd Date Jeannie Soni MD [address] [place] [address] PCP - GeneralGreater Regional Healthly Medicine09/21/22 Anila Schneider APRN-INTERNAL CONTROL SPECIALIST [address] [place] [address] PCP - [employer] Jeannie Soni MD [address] [place] [address] PCP - [employer]08/23/24 Sarah Nelson NP [address] [place] [address] Nurse PractitionerThe [facility] Medicine09/21/22Te MemberRelationshipSpecialtyStart DateEnd Date Jeannie Soni MD [address] [place] [address] PCP - GeneralFamily Medicine09/21/22 Anila Schneider, WELDING SYSTEMS AND EQUIPMENT REPAIRER-[facility] [address] [address] PCP - [employer] Jeannie Soni MD [address] [place] [address] PCP - [employer]08/23/24 Sarah Nelson NP [address] [facility] [place] [address] Nurse PractitionerGreater Regional Healthly Medicine09/21/22Team MemberRelationshipSpecialtyStart DateEnd Jeannie Soni MD [address] [place] [address] PCP - GeneralGreater Regional Healthly Medicine09/21/22 Anila Schneider WELDING SYSTEMS AND EQUIPMENT REPAIRER-[facility] [address] [address] PCP - [employer] Jeannie Soni MD [address] [place] [address] PCP - [employer]08/23/24 Sarah Nelson LENS FINISHER [address] [place] [address] Nurse PractitionerFamily Medicine09/21/22 Reason for Visit (unrecogniz ed section and content) ReasonCommentsRoutine VisitReasonCommentsWell Women VisitReasonComments Routine VisitWell Women VisitSTI ScreeningReasonCommentsBack PainReason Comments6 weeks Post PartumReasonCommentsBack PainLumbar pain. Epidural was ripped out of her back 04/27/24 then got received a second epidural 30 minutes later. No radiating pain. Ibuprofen 800 isn't helping the pain.ReasonComments Chest PainBeen having lung pain for about a month, that heat helped with the pain. The pain then traveled to stomach, pt is 8 weeks ReasonComments Amenorrhea FOR RECORDS PERTAINING TO PATIENTS WHO ARE [...] BE BASED ON THE PRIMARY CLINICAL RECORDS. [employer] provides no warranty or guarantee of the accuracy or completeness of information in this document.
[2025-02-27 11:35] LABS: Hematocrit 38.0 % (36.0-48.0); Hemoglobin 12.5 g/dL (12.0-16.0); Immature Granulocytes Abs Auto 0.02 10^3/uL (0.00-0.03); Immature Granulocytes Pct Auto 0.2 % (0.0-0.5); Lymphocytes Absolute Auto 1.7 10^3/uL (1.2-3.8); Mean Corpuscular HGB Conc 32.9 g/dL (29.9-35.2); Mean Corpuscular Hemoglobin 26.5 pg (26.7-34.0); Mean Corpuscular Volume 80.5 fL (81.0-99.0); Platelet Count 302 10^3/uL (150-450); Red Blood Count 4.72 10^6/uL (4.20-5.40); White Blood Count 10.1 10^3/uL (4.0-11.0)
[2025-02-28 08:09] LABS: Rubella Antibodies, IgG 1.55 index (Immune >0.99)
[2025-02-28 12:09] LABS: Rapid Plasma Reagin, Quant Non Reactive titer (NonRea<1:1)
== END 2025-02-27 10:11 | disposition home or self-care (01) ==
LOC: LAB 10:11
PROVIDERS: PCP Family Medicine; Visit Provider Obstetrics & Gynecology
DX: Z34.01 Encounter for supervision of normal first pregnancy, first trimester (principal); N92.6 Irregular menstruation, unspecified
CPT/HCPCS: 36415; 80307; 83036; 85025; 86592; 86762; 86803; 86850; 86900; 86901; 87086; 87340; 87389

== ENCOUNTER 2025-04-01 19:49 | Outpatient (REF) | payer BC, OTHER, SELFPAY ==
--- OUTSIDE RECORDS SUMMARY | 2025-04-01 19:53 | XMS_ITS | CCD ---
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 above:Performed By: #### CBCA, 00084-8, PINR, 55065-5, CMP, 82323-7 #### [facility] ([id number]) [address] [place] [address] 70816OHX [Catalytic activity/Vol]13 U/LNormal0-31PKettering Health TroyComment on above:Performed By: #### CBCA, 57393-3, PINR, 82102-3, CMP, 12975-7 #### [facility] ([id number]) [address] [place] [address] 80676Daldg gap [Moles/Vol]7 mmol/LNormal5-15ProMemorial Hermann Northeast HospitalComment on above:Performed By: #### KIRA, 42728-9, PINR, 57881-4, CMP, 83460-8 #### [facility] ([id number]) [address] [place] [address], [place] [address]RUM [Catalytic activity/Vol]17 U/LNormal0-41ProMemorial Hermann Northeast HospitalComment on above:Performed By: #### KIRA, 79447-3, PINR, 87759-2, CMP, 26979-4 #### [facility] ([id number]) [address] [place] [address], [place] [address]Rhyfxixlt [Mass/Vol]0.6 mg/dLNormal0.3-1.2PKettering Health TroyComment on above:Performed By: #### KIRA, 45660-0, PINR, 27438-4, CMP, 06329-9 #### [facility] ([id number]) [address] [place] [address], [place] [address]Pwqdnrf [Mass/Vol]9.3 mg/dLNormal8.5-10.5PKettering Health TroyComment on above:Performed By: #### KIRA, 90529-5, PINR, 01525-5, CMP, 10880-3 #### [facility] ([id number]) [address] [place] [address], [place] [address]Oepgjqrd [Moles/Vol]109 mmol/BVadsph49-991CizPldpcaMemorial Hermann Northeast HospitalComment on above:Performed By: #### KIRA, 07048-0, PINR, 19344-0, CMP, 49068-5 #### [facility] ([id number]) [address] [place] [address], [place] [address]SH7 [Moles/Vol]21 mmol/QWjn01-76UtdTudkccKettering Health Troy Comment on above:Performed By: #### KIRA, 15971-6, PINR, 07889-2, CMP, 66629-2 #### [facility] ([id number]) [address] [place] [address] 11112Qxdahupapd [Mass/Vol]0.78 mg/dLNormal0.40-1.00ProMemorial Hermann Northeast HospitalComment on above:Result Comment: METHOD TRACEABLE TO IDMS STANDARD Performed By: #### KIRA, 32842-0, PINR, 50067-3, CMP, 32142-5 #### [facility] ([id number]) [address] [place] [address] 33126pCLC (CKD-EPI) NON-RACE DEPENDENT>90Normal>59ProMemorial Hermann Northeast HospitalComment on above:Result Comment: Reported eGFR is based on the CKD-EPI 2020 equation that does not use a race coefficient.Performed By: #### KIRA, 86307-1, PINNish, 16129-1, CMP, 82862-6 #### [facility] ([id number]) [address] [place] [address] 21254Zkrpgil [Mass/Vol]102 mg/wDHnbu96-48XwxHersliAccess Hospital [facility] Comment on above:Performed By: #### KIRA, 14549-3, PINR, 69385-7, CMP, 78183-6 #### [facility] ([id number]) [address] [place] [address] 15604Jyzbsdils [Moles/Vol]3.5 mmol/LNormal3.5-5.0ProMemorial Hermann Northeast HospitalComment on above:Performed By: #### KIRA, 15491-8, PINR, 48046-3, CMP, 54429-4 #### [facility] ([id number]) [address] [place] [address] 83206Pewpozr [Mass/Vol]7.7 g/dLNormal6.0-8.0ProMemorial Hermann Northeast HospitalComment on above:Performed By: #### KIRA, 54209-4, PINR, 44940-3, CMP, 28828-6 #### [facility] ([id number]) [address] [place] [address] 45012Minuhv [Moles/Vol]137 mmol/MYtinwk921-211IxgAextugAccess Hospital DaytonComment on above:Performed By: #### CBCA, 27850-7, PINR, 69736-2, CMP, 43331-9 #### [facility] ([id number]) [address] [place] [address] 44599Zleh nitrogen [Mass/Vol]14 mg/dLNormal5-23ProMemorial Hermann Northeast HospitalComment on above:Performed By: #### CBCA, 03102-5, PINR, 19523-3, CMP, 86309-6 #### [facility] ([id number]) [address] [place] [address] 32547FP CTA CHESTon 68-98-5474PQ CTA CHESTCT CTA CHEST Clinical History: Chest [...] by Jacob Smith MD on 07/28/2024 2:38 PMNormalAccess Hospital DaytonFibrin D-dimer DDU (PPP) [Mass/Vol]on 07-28-2024D DIMER<150Normal<255 [facility] DaytonComment on above:Result Comment: Results <255 ng/mL DDU: The presence of a VTE can safely be excluded with a negative D-Dimer result and Wells score. A negative result doesn't exclude the possibility of DIC. The test be repeated along with other diagnostic tests if the patient's symptoms persist or worsen. [email or web address] By: #### CBCA, 39467-4, PINR, 17354-0, CMP, 56848-5 #### [facility] ([id number]) [address] [place] [address] 60580MIF ( test) IA.rapid Ql (S)on 32-52-2314BPAEL PREGNANCYNegativeNormalNEGProMemorial Hermann Northeast HospitalComment on above:Performed By: #### 19184-9 #### [facility] ([id number]) [address] [place] [address] 16312Eigyeyvwobl peptide B [Mass/Vol]on 11-86-8036TIY NATRIURETIC PEP<5Normal<100.0[facility] DaytonComc.s. [facility] on above:Performed By: #### CBCA, 41158-1, PINR, 78507-3, CMP, 32395-9 #### [facility] ([id number]) [address] [place] [address] 48007CEUCZIE AND INRon 94-86-2689AYT Coag (PPP) [Relative time]0.9 {INR}Normal0.9-1.2PKettering Health TroyComment on above:Performed By: #### CBCA, 80021-6, PINR, 89659-3, CMP, 81849-1 #### [facility] ([id number]) [address] [place] [address] 16794WR Coag (PPP) [Time]10.8 sNormal9.8-13.2ProMedica New York HospitalComment on above:Result Comment: NEW REFERENCE RANGEPerformed By: #### CBCA, 45817-0, PINR, 83691-3, CMP, 49864-8 #### [facility] ([id number]) [address] [place] [address] 17809eUQH Coag (PPP) [Time]on 76-76-4546bDIW Coag (Bld) [Time]29 s Srggxx42-75FtxNwxxew [facility] Metropolitan Med CenterComment on above:Result Comment: NEW REFERENCE RANGEPerformed By: #### CBCA, 57332-2, PINR, 31838-6, CMP, 33727-4 #### [facility] ([id number]) [address] [place] [address] 48501VI BRAIN WO CONTRASTon 61-97-5354OH BRAIN WO CONTRASTMR BRAIN WO CONTRAST INDICATION: [...] interpreting Radiologist.NormalNot AvailableALL CBC WITH AUTO DIFFon 10-43-2218BEWJWJLPO ABSOLUTE UENN7JUAQ HealthcareBasophils/100 WBC (Bld)0.2 %0.2 - 2.0 %NOMS HealthcareEosinophils/100 WBC (Bld)0.2 %Low0.9 - 7.0 %NOMS HealthcareErythrocyte distribution width (RBC) [Ratio]13.7 %11.0 - 15.0 %NOMS HealthcareHematocrit (Bld) [Volume fraction]32.2 %Low36.0 - 48.0 %NOMS HealthcareHemoglobin (Bld) [Mass/Vol]10.2 g/dLLow12.0 - 16.0 g/dLSSM RehabIMMATURE GRANULOCYTES ABS AUTO0.08HighNOSaint Luke's North Hospital–SmithvilleImmature granulocytes/100 WBC (Bld)0.4 %0.0 - 0.5 % SSM RehabInterpretation and review of laboratory resultsAbSelect Specialty HospitalLYMPHOCYTES ABSOLUTE AUTO3.1NOMS HealthcareLymphocytes/100 WBC (Bld) 16.9 %Low20.5 - 60.0 %Christian HospitalH (RBC) [Entitic mass]26 pgLow26.7 - 34.0 pgChristian HospitalHC (RBC) [Mass/Vol]31.7 g/dL29.9 - 35.2 g/dLSSM Rehab MCV (RBC) [Entitic vol]82.1 fL81.0 - 99.0 fLSSM RehabMONOCYTES ABSOLUTE AUTO1.1HighMCKAY-DEE HOSPITAL CENTER HealthcareMonocytes/100 WBC (Bld)6.1 %1.7 - 12.0 %SSM RehabNEUTROPHILS ABSOLUTE AUTO14.2HighNOSaint Luke's North Hospital–SmithvilleNeutrophils/100 WBC (Bld)76.2 %High43.0 - 75.0 %SSM RehabPlatelet mean volume (Bld) [Entitic vol]9.5 fL9.5 - 13.5 fLSSM RehabTB EO #0NOMS [facility] HospitalTB PSM154ZOIOEllett Memorial Hospital RBC3.92LowNOEllett Memorial Hospital WBC18.6HighSSM RehabCLINISYNC [facility] CBC WITH PLATELET NO DIFFERENTIALon 10-70-3105Orufexcilgz distribution width (RBC) [Ratio]13.2 %11.0 - 15.0 %SSM RehabHematocrit (Bld) [Volume fraction]37.2 %36.0 - 48.0 %SSM RehabHemoglobin (Bld) [Mass/Vol]12.0 g/dL12.0 - 16.0 g/dLSSM RehabInterpretation and review of laboratory resultsAbnormWellSpan Gettysburg HospitalH (RBC) [Entitic mass]25.9 pgLow26.7 - 34.0 pgChristian HospitalHC (RBC) [Mass/Vol]32.3 g/dL29.9 - 35.2 g/dLNOMS HealthcareMCV (RBC) [Entitic vol]80.2 fLLow81.0 - 99.0 fLMCKAY-DEE HOSPITAL CENTER HealthcarePlatelet mean volume (Bld) [Entitic vol]9.4 fLLow9.5 - 13.5 fLNOSaint Luke's North Hospital–SmithvilleTBH VIP771 SSM RehabTB RBC4.64NOMS [facility] HospitalTB WBC15.9HighNOIN HealthcareCLINISYNC SSM RehabTB DRUG SCREEN RAPID (URINE)on 87-86-1582HDFIGMYTSQU SCREEN URINENegativeNEGATIVENOMS HealthcareBARBITURATES SCREEN URINENegativeNEGATIVE NOMS HealthcareBENZODIAZEPINES [...] URINENegativeNEGATIVENOMS HealthcareCLINISYNCNOMS HealthcareUS OB BPP W NON-STRESSon 41-51-2838[place]ml[place], [place] [address] Ultrasound Report Signed Patient: BRYNN WALLACE MR#: [id number] : 2000 Acct:[id number] Age/Sex: 23 / F ADM Date: 04/26/24 Loc: [facility] 252-[address]: Shaw Rojo D.O. Ordering Physician: Shaw Rojo D.O. Date of Service: 04/26/24 Procedure(s): US OB BPP w non-stress Accession Number(s): [id number] cc: LEAH AZAR ; Shaw Rojo D.O. The [address] [address] Patient Name: BRYNN WALLACE MRN: [facility]:[id number] date: 2000 Sex: F Assigned Patient Location: [facility] Current Patient Location: [facility] Accession/Order Number: [id number] Exam Date: 04/26/2024 13:00 Report Date: 04/26/2024 [...] Signed By: 04/26/24 1334 DD/ 1331 TD/TT: Manager Zone:LUCINDAHRadiology, Radiologist, MD - 04/26/2024 The [place] [id number] Ultrasound Report Signed Patient: BRYNN WALLACE MR#: [id number] : 2000 Acct:[id number] Age/Sex: 23 / F ADM Date: 04/26/24 Loc: [facility] 252-[address]: Shaw Rojo D.O. Ordering Physician: Shaw Rojo D.O. Date of Service: 04/26/24 Procedure(s): US OB BPP w non-stress Accession Number(s): [id number] cc: LEAH AZAR Corey D.O. [place] [id number] Patient Name: BRYNN WALLACE MRN: [id number] date: 2000 Sex: F Assigned Patient Location: [facility] Current Patient Location: [facility] Accession/Order Number: [id number] Exam Date: 04/26/2024 13:00 Report Date: 04/26/2024 [...] Signed By: 04/26/24 1334 DD/ 1331 TD/TT: Manager Zone: KELECHI HealthcareRadiology Study observation (narrative)KELECHI BarreraUS OB BPP W NON-STRESSOrdered By: Radiologist Radiology on 87-01-2339CMIW Healthcare Work Phone: Urinalysis macro (dipstick) panel (U)on 04-19-2024 Bilirubin, UANegativeNegative - 4(70) +++ mg/dLNOMS HealthcareBlood, UAPositive Negative - 50 Joey/mcLNOMS HealthcareClarity, UAClearNOMS HealthcareColor, UA YellowNOMS HealthcareGlucose, UANegativeNegative - 2000(110) ++++ mg/dLNOMS HealthcareInterpretation and review of laboratory resultsAbnormalNOMS Healthcare Ketones, UANegativeNegative - 160(16) ++++ mg/dLNOMS HealthcareLeukocytes, UA NegativeNegative - 500+++ Quyen/mcLNOMS HealthcareNitrite, UANegativeNegative - PositiveNOMS HealthcarepH, UA6.55 - 9NOMS HealthcareProtein, UANegativeNegative - 2000(20) ++++ mg/dLNOMS HealthcareSpec Grav, UA1.0251 - 1.03NOM[facility] Healthcare Urobilinogen, UA0.20.2 - 12 mg/dLNOMS HealthcareNOMS HealthcareUS OB GROWTHon 54-33-3437XktClebur[place], [place] [address] Ultrasound Report Signed Patient: BRYNN WALLACE MR#: [id number] : 2000 Acct:[id number] Age/Sex: 23 / F ADM Date: 04/13/24 Loc: [place] Attending Dr: Yaritza Portillo Ordering Physician: Yaritza Portillo Date of Service: 04/13/24 Procedure(s): US OB growth Accession Number(s): [id number] cc: Yaritza Portillo; LEAH AZAR [address] [address] Patient Name: BRYNN WALLACE MRN: [id number] date: 2000 Sex: F Assigned Patient Location: Current Patient Location: Accession/Order Number: [id number] Exam Date: 04/13/2024 19:00 Report Date: 04/14/2024 [...] M.D. Signed By: 04/14/24824 DD/ 1 TD/TT: Manager Zone:LUCINDAHRadiology, Radiologist, - 04/14/2024 [place] [address] Ultrasound Report Signed Patient: BRYNN WALLACE MR#: [id number] : 2000 Acct:[id number] Age/Sex: 23 / F ADM Date: 04/13/24 Loc: [place] Attending Dr: Yaritza Portillo Ordering Physician: Yaritza Portillo Date of Service: 04/13/24 Procedure(s): US OB growth Accession Number(s): [id number] cc: Yaritza Portillo; LEAH AZAR [place] [id number] Patient Name: BRYNN WALLACE MRN: [id number] date: 2000 Sex: F Assigned Patient Location: [place] Current Patient Location: Accession/Order Number: [id number] Exam Date: 04/13/2024 19:00 Report Date: 04/14/2024 [...] M.D. Signed By: 04/14/24824 DD/ 1 TD/TT: Manager Zone: KELECHI HealthcareRadiology Study observation (narrative)SSM RehabUS OB GROWTHOrdered By: Radiologist Radiology on 74-80-8394VYBT Healthcare Work Phone: US OB BPP W NON-STRESSon 15-65-2993WmqClebur[place], [place] [address] Ultrasound Report Signed Patient: BRYNN WALLACE MR#: [id number] : 2000 Acct:[id number] Age/Sex: 23 / F ADM Date: Loc: [facility] 250- Attending Dr: Shaw Rojo D.O. Ordering Physician: Shaw Rojo D.O. Date of Service: 04/11/24 Procedure(s): US OB BPP w non-stress Accession Number(s): [id number] cc: LEAH AZAR Corey D.O. The [address] [address] Patient Name: BRYNN WALLACE MRN: [id number]:[id number] date: 2000 Sex: F Assigned Patient Location: [facility] Current Patient Location: [facility] Accession/Order Number: [id number] Exam Date: 04/11/2024 15:20 Report Date: 04/11/2024 [...] Signed By: 04/11/24 1551 DD/ 1549 TD/TT: Manager Zone:TBHRadiology, Radiologist, MD - 04/11/2024 [place] [address] Ultrasound Report Signed Patient: BRYNN WALLACE MR#: [id number] : 2000 Acct:[id number] Age/Sex: 23 / F ADM Date: Loc: [facility] 250-[address]: Shaw Rojo D.O. Ordering Physician: Shaw Rojo D.O. Date of Service: 04/11/24 Procedure(s): US OB BPP w non-stress Accession Number(s): [id number] cc: LEAH AZAR ; Shaw Rojo D.O. The [address] [address] Patient Name: BRYNN WALLACE MRN: [id number] date: 2000 Sex: F Assigned Patient Location: [facility] Current Patient Location: [facility] Accession/Order Number: [id number] Exam Date: 04/11/2024 15:20 Report Date: 04/11/2024 [...] By: Rufus Reyes M.D. Signed By: 04/11/24 1558 DD/ 1546 TD/TT: Manager Zone: NOMS HealthcareRadiology Study observation (narrative)NOMS HealthcareUS OB BPP W NON-STRESSOrdered By: Radiologist Radiology on 40-41-0115CFZE Healthcare Work Phone: Urinalysis macro (dipstick) panel (U)on 04-11-2024 Bilirubin, UAPositiveNegative - 4(70) +++ mg/dLNOMS HealthcareComment on above: smallBlood, UANegativeNegative - 50 Joey/mcLNOMS HealthcareClarity, UAClearNOMS HealthcareColor, UAYellowNOMS HealthcareGlucose, UANegativeNegative - 2000(110) ++++ mg/dLNOMS HealthcareInterpretation and review of laboratory resultsAbnormal NOMS HealthcareKetones, UAPositiveNegative - 160(16) ++++ mg/dLNOMS Healthcare Comment on above:traceLeukocytes, UANegativeNegative - 500+++ Quyen/mcLNOMS HealthcareNitrite, UANegativeNegative - PositiveNOMS HealthcarepH, UA65 - 9NOMS HealthcareProtein, UANegativeNegative - 2000(20) ++++ mg/dLNOMS HealthcareSpec Grav, UA1.0251 - 1.03NOMS HealthcareUrobilinogen, UA0.20.2 - 12 mg/dLNOMS HealthcareNOMS HealthcareALL MISCELLANEOUS TESTon 30-52-1371VULIDSXRLDUYM TEST COMMENT.NOMS HealthcareComment on above:Test Ordered: [id number] Strep Gp B HERBER+Rflx Strep Gp B HERBER+Rflx Negative CB Reference Range: Negative Centers for Disease Control and Prevention (CDC) and [place] Congress of Obstetricians and Gynecologists (ACOG) guidelines [...] resistance to clindamycin is noted. Performed at: [facility] [id number] Dip Tube Assembler Machine: Dc Mtz PhD, Phone: [phone] VAG/REC 457320 Group B Streptococcus Colonization Detection, EHRBER With Refle CLINISYNCNOMS HealthcareUrinalysis macro (dipstick) panel (U)on 04-04-2024 Bilirubin, UANegativeNegative - 4(70) +++ mg/dLNOMS HealthcareBlood, UANegative Negative - 50 Joey/mcLNOMS HealthcareClarity, UAClearNOMS HealthcareColor, UA YellowNOMS HealthcareGlucose, UANegativeNegative - 2000(110) ++++ mg/dLNOMS HealthcareInterpretation and review of laboratory resultsNormalNOMS Healthcare Ketones, UANegativeNegative - 160(16) ++++ mg/dLNOMS HealthcareLeukocytes, UA NegativeNegative - 500+++ Quyen/mcLNOMS HealthcareNitrite, UANegativeNegative - PositiveNOMS HealthcarepH, UA5.55 - 9NOMS HealthcareProtein, UANegativeNegative - 2000(20) ++++ mg/dLNOMS HealthcareSpec Grav, UA1.021 - 1.03N[facility] Healthcare Urobilinogen, UA1.00.2 - 12 mg/dLNOMS HealthcareNOMS HealthcareUrinalysis macro (dipstick) panel (U)on 38-88-3151Twwtvhpds, UANegativeNegative - 4(70) +++ mg/dL NOMS HealthcareBlood, UANegativeNegative - 50 Joey/mcLNOMS HealthcareClarity, UA ClearNOMS HealthcareColor, UAYellowNOMS HealthcareGlucose, UANegativeNegative - 2000(110) ++++ mg/dLNOIN HealthcareInterpretation and review of laboratory resultsAbnormalNOMS HealthcareKetones, UANegativeNegative - 160(16) ++++ mg/dL NOMS HealthcareLeukocytes, UANegativeNegative - 500+++ Quyen/mcLNOIN Healthcare Nitrite, UANegativeNegative - PositiveNOMS HealthcarepH, UA5.55 - 9NOMS HealthcareProtein, UANegativeNegative - 2000(20) ++++ mg/dLNOIN HealthcareSpec Grav, UA1.2021 - 1.03NOMS HealthcareUrobilinogen, UA1.00.2 - 12 mg/dLNOIN HealthcareNOMS HealthcareURINE CULTURE, ROUTINEon 93-12-0134Kodbqzxn identified Cx Nom (U) Urine Culture, Routine NOMS HealthcareBacteria identified Cx Nom (U)Mixed urogenital floraNOMS HealthcareBacteria identified Cx Nom (U)25,000-50,000 colony forming units per mLNOMS HealthcareBacteria identified Cx Nom (U)Performed at: - [facility] NOMS HealthcareBacteria identified Cx Nom (U)[address] [place], [place] [id number] HealthcareBacteria identified Cx Nom (U)Dip Tube Assembler Machine: Dc Mtz PhD, Phone: [phone] HealthcareCLINISYNCNOKLAHOMA STATE UNIVERSITY [facility] HealthcareS[facility] UA (CLEAN/CATCH) LOCK MAINTENANCE SUPERVISOR/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on 68-12-2916URBZCCQXH URINENegativeNEGATIVENOMS HealthcareBLOOD URINESMALLAbnormalNEGATIVENOMS HealthcareClarity (U)CLEARCLEAR NOMS HealthcareColor (U)YELLOWYELLOWNOMS HealthcareGLUCOSE URINE UANegative NEGATIVE mg/dLNOIN HealthcareInterpretation and review of laboratory results AbnormalNOMS HealthcareKetones Ql (U)TRACEAbnormalNEGATIVE mg/dLNOIN Healthcare Leukocyte esterase Test strip Ql (U)SMALLAbnormalNEGATIVENOMS HealthcareNITRITE URINENegativeNEGATIVENOMS HealthcarepH (U)6.0 [pH]5.0 - 9.0NOMS Healthcare PROTEIN URINETRACENEG/TRACE mg/dLNOMS HealthcareSPECIFIC GRAVITY URINE1.0251.005 - 1.025NOMS HealthcareURINE MICROSCOPIC INDICATEDYESNOMS HealthcareUROBILINOGEN URINE1.0 EU/dL0.2 - 1.0 EU/dLNOMS HealthcareCLINISYNCNOMS HealthcareUS OB BPP W NON-STRESSon 25-00-6067JzwClebur[place], [place] [address] Ultrasound Report Signed Patient: BRYNN WALLACE MR#: [id number] : 2000 Acct:[id number] Age/Sex: 23 / F ADM Date: Loc: [facility] 250- Attending Dr: Shaw Rojo D.O. Ordering Physician: Shaw Rojo D.O. Date of Service: 03/15/24 Procedure(s): US OB BPP w non-stress Accession Number(s): [id number] cc: LEAH AZAR ; Shaw Rojo D.O. [place] [address] Patient Name: BRYNN WALLACE MRN: [id number] date: 2000 Sex: F Assigned Patient Location: [facility] Current Patient Location: [facility] Accession/Order Number: [id number] Exam Date: 03/15/2024 15:40 Report Date: 03/15/2024 [...] M.D. Signed By: 03/15/241642 DD/ 40 TD/TT: Manager Zone:KARSONadiologdavid, MD Eleonora - 03/15/2024 [place] [address] Ultrasound Report Signed Patient: BRYNN WALLACE MR#: [id number] : 2000 Acct:[id number] Age/Sex: 23 / F ADM Date: Loc: [facility] 250-[address]: Shaw Rojo D.O. Ordering Physician: Shaw Rojo D.O. Date of Service: 03/15/24 Procedure(s): US OB BPP w non-stress Accession Number(s): [id number] cc: LEAH AZAR ; Shaw Rojo D.O. The [place] [address] Patient Name: BRYNN WALLACE MRN: [id number] date: 2000 Sex: F Assigned Patient Location: [facility] Current Patient Location: [facility] Accession/Order Number: [id number] Exam Date: 03/15/2024 15:40 Report Date: 03/15/2024 [...] M.D. Signed By: 03/15/241642 DD/ 40 TD/TT: Manager Zone: [facility] HOSPITALFoster HealthcareRadiology Study observation (narrative)NOMS HealthcareUS OB BPP W NON-STRESSOrdered By: Radiologist Radiology on 84-76-3248ZCKE Healthcare Work Phone: Urinalysis macro (dipstick) panel (U)on 03-08-2024 Bilirubin, UANegativeNegative - 4(70) +++ mg/dLNOMS HealthcareBlood, UAPositive Negative - 50 Joey/mcLNOMS HealthcareComment on above:trace-intactClarity, UA ClearNOMS HealthcareColor, UAYellowNOMS HealthcareGlucose, UANegativeNegative - 2000(110) ++++ mg/dLNOMS HealthcareInterpretation and review of laboratory resultsAbnormalNOMS HealthcareKetones, UANegativeNegative - 160(16) ++++ mg/dL [facility] HealthcareLeukocytes, UANegativeNegative - 500+++ Quyen/mcLNOMS Healthcare Nitrite, UANegativeNegative - PositiveNOMS HealthcarepH, UA7.55 - 9NOMS HealthcareProtein, UANegativeNegative - 2000(20) ++++ mg/dLNOMS HealthcareSpec Grav, UA1.021 - 1.03NOMS HealthcareUrobilinogen, UA0.20.2 - 12 mg/dLNOMS HealthcareNOMS HealthcareUS OB GROWTHon 50-27-8992Fkt[address] [address] Ultrasound Report Signed Patient: BRYNN WALLACE MR#: [id number] : 2000 Acct:[id number] Age/Sex: 23 / F ADM Date: 02/23/24 Loc: US Attending Dr: Shaw Rojo D.O. Ordering Physician: Shaw Rojo D.O. Date of Service: 02/23/24 Procedure(s): US OB growth Accession Number(s): [id number] cc: LEAH AZAR ; Shaw Rojo D.O. The [address] [address] Patient Name: BRYNN WALLACE MRN: [id number] date: 2000 Sex: F Assigned Patient Location: [place] Current Patient Location: Accession/Order Number: [id number] Exam Date: 02/23/2024 19:12 Report Date: 02/24/2024 [...] M.D. Signed By: 02/24/24804 DD/ 1 TD/TT: Manager Zone:[facility], Radiologist, - 02/24/2024 [place] [address] Ultrasound Report Signed Patient: BRYNN WALLACE MR#: [id number] : 2000 Acct:[id number] Age/Sex: 23 / F ADM Date: 02/23/24 Loc: [place] Attending Dr: Shaw Rojo D.O. Ordering Physician: Shaw Rojo D.O. Date of Service: 02/23/24 Procedure(s): US OB growth Accession Number(s): [id number] cc: LEAH AZAR ; Shaw Rojo D.O. The [place] [id number] Patient Name: BRYNN WALLACE MRN: [id number] date: 2000 Sex: F Assigned Patient Location: [place] Current Patient Location: Accession/Order Number: [id number] Exam Date: 02/23/2024 19:12 Report Date: 02/24/2024 [...] M.D. Signed By: 02/24/24804 DD/ 1 TD/TT: Manager Zone: KELECHI HealthcareRadiology Study observation (narrative)KELECHI BarreraUS OB GROWTHOrdered By: Radiologist Radiology on [id number] Work Phone: Urinalysis macro (dipstick) panel (U)on 02-23-2024 Bilirubin, UANegativeNegative - 4(70) +++ mg/dLNOMS HealthcareBlood, UANegative Negative - 50 Joey/mcLNOMS HealthcareClarity, UAClearNOMS HealthcareColor, UA YellowNOMS HealthcareGlucose, UANegativeNegative - 2000(110) ++++ mg/dLNOMS HealthcareInterpretation and review of laboratory resultsAbnormalMCKAY-DEE [facility] Healthcare Ketones, UAPositiveNegative - 160(16) ++++ mg/dLNOMS HealthcareComment on above: 15 mgLeukocytes, UATraceNegative - 500+++ Quyen/mcLNOMS HealthcareNitrite, UA NegativeNegative - PositiveNOMS HealthcarepH, UA6.55 - 9NOMS HealthcareProtein, UATraceNegative - 1999(20) ++++ mg/dLNOMS HealthcareSpec Grav, UA1.031 - 1.03 NOMS HealthcareUrobilinogen, UA1.00.2 - 12 mg/dLNOMS HealthcareNOMS Healthcare Urinalysis macro (dipstick) panel (U)on [id number], UANegativeNegative - 4(70) +++ mg/dLNOMS HealthcareBlood, UANegativeNegative - 50 Joey/mcLNOMS HealthcareClarity, UAClearNOMS HealthcareColor, UAYellowNOMS HealthcareGlucose, UANegativeNegative - 2000(110) ++++ mg/dLNOMS HealthcareInterpretation and review of laboratory resultsNormalNOIN HealthcareKetones, UANegativeNegative - 160(16) ++++ mg/dLNOMS HealthcareLeukocytes, UANegativeNegative - 500+++ Quyen/mcL NOMS HealthcareNitrite, UANegativeNegative - PositiveNOMS HealthcarepH, UA75 - 9 NOMS HealthcareProtein, UANegativeNegative - 1999(20) ++++ mg/dLNOMS Healthcare Spec Grav, UA1.021 - 1.03NOMS HealthcareUrobilinogen, UA0.20.2 - 12 mg/dLNOMS HealthcareNOMS HealthcareGLUCOSE 1 HOURon 86-69-3451Uwobahm [Mass/Vol]136 mg/dL HighNINF - 130 mg/dLNOMS HealthcareInterpretation and review of laboratory resultsAbnormalNOIN HealthcareCLINISYNCNOMS HealthcareUrinalysis macro (dipstick) panel (U)on 43-38-1085Hqqsviauf, UANegativeNegative - 4(70) +++ mg/dL NOMS HealthcareBlood, UANegativeNegative - 50 Joey/mcLNOMS HealthcareClarity, UA ClearNOMS HealthcareColor, UAYellowNOMS HealthcareGlucose, UANegativeNegative - 2000(110) ++++ mg/dLNOIN HealthcareInterpretation and review of laboratory resultsAbnormalNOMS HealthcareKetones, UANegativeNegative - 160(16) ++++ mg/dL NOMS HealthcareLeukocytes, UAPositiveNegative - 500+++ Quyen/mcLNOMS Healthcare Comment on above:smallNitrite, UANegativeNegative - PositiveNOMS HealthcarepH, UA7.05 - 9NOMS HealthcareProtein, UAPositiveNegative - 2000(20) ++++ mg/dLNOMS HealthcareComment on above:30Spec Grav, UA1.0251 - 1.03[facility] Healthcare Urobilinogen, UA1.00.2 - 12 mg/dLNOIN HealthcareNOMS HealthcareAFP, SERUM, OPEN SPINA BIFIDAon 77-20-3300GQX MOM0.78.NOMS HealthcareAFP VALUE38.1 ng/mL.NOMS HealthcareCOMMENT:Comment.NOMS HealthcareComment on above:Nereyda Laguna, Ph.D., [facility] Director References: Available Upon Request. Multiples Of Median Cutoffs For AFP Elevations Garcia 2.5 Black 2.8 IDD 2.0 Twins 4.5 Abbreviation Definitions IDD - Insulin Dep Diabetes OSBR - Open Spina Bifida Risk For further inquiries contact [facility] at [phone]. This test was developed and its performance characteristics determined by [employer]. It has not been cleared or approved by the Food and Drug Administration. Performed at: [facility] [address] [place], [place] [id number] Dip Tube Assembler Machine: [facility], Phone: [phone] GEST. AGE ON COLLECTION DATE20.4. weeksNOMS HealthcareGESTAT. AGE BASED ON Ultrasound.NOMS HealthcareComment on above:20.4 on 12/14/2023 Recalculations are not recommended when gestational dating by LMP and ultrasound are within 10 days. INSULIN DEP DIABETESNo.[facility] HealthcareINTERPRETATIONComment.[facility] Comment on above:Interpretation: Screen Negative This result [...] Customer Services to discuss available options. The [employer] recommends amniocentesis be offered to women age 35 and older. MATERNAL AGE AT EDD23.0. yrNOIN HealthcareMULTIPLE GESTATIONNo.[facility] Healthcare OSBR RISK 1 [id number].[facility] HealthcareRACECaucasian.[facility] HealthcareRESULTSReport. [facility] HealthcareTEST RESULTS:Negative.[facility]M RehabHysljavedqDRAXCN564. lbsNOIN HealthcarePREGNANCY N N ULTRASOUND [id number] 3 20 N 1 Y 219 N N N N N White/ CLINISYNCSSM RehabNo Panel InformationOrdered By: Radiologist Radiology on 39-07-8319NXEB Healthcare Work Phone: No Panel Informationon 60-97-6363Xvsbibhoc Study observation (narrative)[facility] HealthcareURETHRITIS/DISCHARGE PLUS VAGINITIS (HTRX) on 88-60-8021DAEPPSZQS JJKHLDX89.553AbnormalNOIN HealthcareATOPOBIUM VAGINAE DetectedAbnormalMCKAY-DEE [facility]OSPITAL [facility]ENTER HealthcareBVAB 2,3 (BACTERIAL VAGINOSIS ASSOCIATED BACTERIA 2, 3); MOBILUNCUS SPP18.812AbnormalMCKAY-DEE HOSPITAL [facility]ENTER HealthcareBVAB 2,3 (BACTERIAL VAGINOSIS ASSOCIATED BACTERIA 2, 3); MOBILUNCUS SPPDetectedAbnormalMCKAY-DEE [facility] HealthcareCANDIDA ALBICANS, PARAPSILOSIS, TROPICALIS0.000NOMS HealthcareCANDIDA ALBICANS, PARAPSILOSIS, TROPICALISNot detectedNOMS HealthcareCANDIDA GLABRATA0.000NOMS HealthcareCANDIDA GLABRATANot detectedNOMS HealthcareCANDIDA KRUSEI0.000NOMS HealthcareCANDIDA KRUSEINot detectedNOMS HealthcareCHLAMYDIA TRACHOMATIS0.000 NOMS HealthcareCHLAMYDIA TRACHOMATISNot detectedNOMS HealthcareERMB, C; MEFA 18.831AbnormalNOMS HealthcareERMB, C; MEFADetectedAbnormalNOMS Healthcare GARDNERELLA IYEAXAMRK63.173AbnormalNOMS HealthcareGARDNERELLA VAGINALISDetected AbnormalNOMS HealthcareInterpretation and review of laboratory resultsAbnormal NOMS HealthcareMEGASPHAERA (TYPES 1, 2)19.768AbnormalNOMS HealthcareMEGASPHAERA (TYPES 1, 2)DetectedAbnormalNOMS HealthcareMYCOPLASMA GENITALIUM0.000NOMS HealthcareMYCOPLASMA GENITALIUMNot detectedNOMS HealthcareNEISSERIA GONORRHOEAE 0.000NOMS HealthcareNEISSERIA GONORRHOEAENot detectedNOMS HealthcareTET B, TET M 26.704AbnormalNOMS HealthcareTET B, TET MDetectedAbnormalNOMS Healthcare TRICHOMONAS VAGINALIS0.000NOMS HealthcareTRICHOMONAS VAGINALISNot detectedNOMS HealthcareNOMS HealthcareUS OB ANATOMYon 80-26-1711[place] [address] Ultrasound Report Signed Patient: BRYNN WALLACE MR#: [id number] : 2000 Acct:[id number] Age/Sex: 23 / F ADM Date: 12/15/23 Loc: US Attending Dr: Yaritza Portillo Ordering Physician: Yaritza Portillo Date of Service: 12/15/23 Procedure(s): US OB anatomy Accession Number(s): [id number] cc: Yaritza Portillo; LEAH AZAR [place] [id number] Patient Name: BRYNN WALLACE MRN: [id number] date: 2000 Sex: F Assigned Patient Location: US Current Patient Location: Accession/Order Number: [id number] Exam Date: 12/15/2023 19:05 Report Date: 12/16/2023 [...] M.D. Signed By: 12/16/23617 DD/ 4 TD/TT: Manager Zone:TBHRadiology, Radiologist, - 12/16/2023 [place] [address] Ultrasound Report Signed Patient: BRYNN WALLACE MR#: [id number] : 2000 Acct:[id number] Age/Sex: 23 / F ADM Date: 12/15/23 Loc: US Attending Dr: Yaritza Portillo Ordering Physician: Yaritza Portillo Date of Service: 12/15/23 Procedure(s): US OB anatomy Accession Number(s): [id number] cc: Yaritza Portillo; LEAH AZAR [address] [address] Patient Name: BRYNN WALLACE MRN: [id number] date: 2000 Sex: F Assigned Patient Location: US Current Patient Location: Accession/Order Number: [id number] Exam Date: 12/15/2023 19:05 Report Date: 12/16/2023 [...] M.D. Signed By: 12/16/23617 DD/ 4 TD/TT: Manager Zone: KELECHI Ortega OB CERVICAL LENGTHon 30-27-[address] [address] Ultrasound Report Signed Patient: BRYNN WALLACE MR#: [id number] : 2000 Acct:[id number] Age/Sex: 23 / F ADM Date: 12/15/23 Loc: US Attending Dr: Yaritza Portillo Ordering Physician: Yaritza Portillo Date of Service: 12/15/23 Procedure(s): US OB cervical length Accession Number(s): [id number] cc: Yaritza Portillo; LEAH AZAR [place] [id number] Patient Name: BRYNN WALLACE MRN: [id number] date: 2000 Sex: F Assigned Patient Location: US Current Patient Location: Accession/Order Number: [id number] Exam Date: 12/15/2023 19:05 Report Date: 12/16/2023 [...] M.D. Signed By: 12/16/23617 DD/ 4 TD/TT: Manager Zone:TBHRadiology, Radiologist, MD - 12/16/2023 [place] [address] Ultrasound Report Signed Patient: BRYNN WALLACE MR#: [id number] : 2000 Acct:[id number] Age/Sex: 23 / F ADM Date: 12/15/23 Loc: US Attending Dr: Yaritza Portillo Ordering Physician: Yaritza Portillo Date of Service: 12/15/23 Procedure(s): US OB cervical length Accession Number(s): [id number] cc: Yaritza Portillo; LEAH AZAR [place] [phone] Patient Name: BRYNN WALLACE MRN: [id number] date: 2000 Sex: F Assigned Patient Location: US Current Patient Location: Accession/Order Number: [id number] Exam Date: 12/15/2023 19:05 Report Date: 12/16/2023 [...] M.D. Signed By: 12/16/23617 DD/ 4 TD/TT: Manager Zone: KELECHI HealthcareCytology Cervical or vaginal smear or scraping studyon 12-14-2023 [facility] HealthcareUrinalysis macro (dipstick) panel (U)on 64-45-6253Uywialhnq, UA NegativeNegative - 4(70) +++ mg/dLNOMS HealthcareBlood, UANegativeNegative - 50 Joey/mcLNOMS HealthcareClarity, UAClearNOMS HealthcareColor, UAYellowNOMS HealthcareGlucose, UANegativeNegative - 1999(110) ++++ mg/dLNOMS Healthcare Interpretation and review of laboratory resultsAbnormalNOMS HealthcareKetones, UAPositiveNegative - 160(16) ++++ mg/dLNOMS HealthcareComment on above:trace Leukocytes, UANegativeNegative - 500+++ Quyen/mcLNOMS HealthcareNitrite, UA NegativeNegative - PositiveNOMS HealthcarepH, UA6.55 - 9NOMS HealthcareProtein, UANegativeNegative - 2000(20) ++++ mg/dLNOMS HealthcareSpec Grav, UA1.0101 - 1.03NOMS HealthcareUrobilinogen, UA0.20.2 - 12 mg/dLNOMS HealthcareNOMS HealthcareCoding Summaryon 55-63-4581Bvasvm SummaryHTMLBase 64 KnpzjygoPOw5qGm+PGhlYWQ+UW1PAXTuR51sdGNacN5cH9VEIJqFAfelJBAAHPuBQbFgboVtSG3zeCEg ZXJu [file] b2x (more content not included)...[facility] Urineon 10-08-2023 Urine45,000 cfu/ml Staphylococcus epidermidis ORGANISM [...] Tri/Sulf S <=0.5/9.5 Verified Vanc S 2 VerifiedBlanchard Valley Health System Bluffton HospitalComment on above:Performed By: #### [id number], [id number], [id number] #### [facility] (DEFAULT) [address] [place] [address] 23617ULiUb Screen LCon 56-07-0289CRzBw Screen LCNegativeInvalid Interpretation CodeNegativeSamaritan Hospital HospitalComment on above:Result Comment: Performed At: [address] [id number] Bibi Irwin PhD Ph:[phone] By: #### [id number] #### [facility] (DEFAULT) [address] [place] [address] 97329ENJ Antibody on 18-39-5063Nsx C Virus Ab LCNon-Reactive Invalid Interpretation CodeNon ReactiveWright-Patterson Medical CenterComment on above:Result Comment: HCV antibody alone does not differentiate between previously resolved infection and active infection. Equivocal and Reactive HCV antibody results should be followed up with an HCV RNA test to support the diagnosis of active HCV infection. Performed At: [address] [id number] Bibi Irwin PhD Ph:[phone] By: #### [id number] #### [facility] (DEFAULT) [address] [place] [address] 10176VTN 4th Gen Screen w Reflex LCon 29-03-5543IXF Scr 4th Gen LCNon-ReactiveInvalid Interpretation CodeNon ReactiveWright-Patterson Medical CenterComment on above:Result Comment: HIV Negative HIV-1/HIV-2 antibodies and HIV-1 p24 antigen were NOT detected. There is no laboratory evidence of HIV infection. Performed At: [address] [id number] Bibi Irwin PhD Ph:[phone] By: #### [id number] #### [facility] (DEFAULT) [address] [place] [address] 18210UAM, Rfx Qn RPR/Confirm TP LCon 84-73-7730FTA LC Non-ReactiveInvalid Interpretation CodeNon ReactiveSamaritan Hospital HospitalComment on above:Result Comment: Performed At: [address] [place], [place] [id number] Bibi Irwin PhD Ph:[phone] By: #### [id number] #### [facility] (DEFAULT) [address] [place] [address] 94477Mejpkgj Antibodies, IgG LCon 44-62-7459Gcwrhwt Antibodies, IgG LC1.90 indexInvalid Interpretation CodeImmune >0.99Magrsouthern ohio medical center HospitalComment on above:Result Comment: Non-immune <0.90 Equivocal 0.90 - 0.99 Immune >0.99 Performed At: [facility] [address] [place], [place] [id number] Bibi Irwin PhD Ph:[phone] By: #### [id number] #### [facility] (DEFAULT) [address] [place] [address] 72710.Auto Diff 1on 51-50-7278Xvbf Mckean %4 %Normal1-12Wright-Patterson Medical CenterComment on above:Performed By: #### [id number], 96644588, 8267860, 20165379, 2781078849, 2977001, 90862410, 61246350, 85215712, 98272909 #### [facility] (DEFAULT) [address] [place] [address] 36414Tyvq Abs#0.0 w06Ijjajo8.0-0.2MWadsworth-Rittman HospitalComment on above:Performed By: #### [id number], 70561178, 2515526, 83363508, 5985842385, 5037313, 52921592, 46039493, 62674351, 07811672 #### [facility] (DEFAULT) [address] [place] [address] 22571Liwiuvehk/100 WBC (Bld)0.4 %Normal0.2-2.0[facility] Hospital Comment on above:Performed By: #### [id number], 15056010, 2423634, 95954870, 1658496411, 9469716, 83660864, 51519620, 90979370, 62809079 #### [facility] (DEFAULT) [address] [place] [address] 04042Fcb Abs#0.0 s99Mvjgof3.0-0.4Magrsouthern ohio medical center HospitalComment on above:Performed By: #### 8791547647, 74654687, 3447986, 89391857, 9471626353, 3848079, 31307267, 93072644, 56256267, 61866504 #### [facility] (DEFAULT) [address] [place] [address] 74100Xtyrscvqxsv/100 WBC (Bld)0.3 %Low0.9-4.0[facility] Hospital Comment on above:Performed By: #### [id number], 99262772, 9822879, 04759841, 5271766300, 5910884, 84156642, 67861386, 42568428, 38516023 #### [facility] (DEFAULT) [address] [place] [address] 74659Lmvrx Abs#1.5 p78Eiexdn7.3-2.9Mapromedica memorial hospital HospitalComment on above:Performed By: #### 4192944069, 12636025, 6842701, 43307865, 5171278298, 3266825, 47604477, 15873249, 10319402, 26997810 #### [facility] (DEFAULT) [address] [place] [address] 11608Lwkzprodysb/100 WBC (Bld)13 %Wln84-75Ccguheqa Hospital Comment on above:Performed By: #### [id number], 88169191, 6575517, 50203770, 8440580511, 2094469, 04667029, 56834704, 79404408, 75102647 #### [facility] (DEFAULT) [address] [place] [address] 33260Fufx Abs#0.5 c39Bhlpzt9.0-0.8Mapromedica memorial hospital HospitalComment on above:Performed By: #### 0066587728, 57123707, 0937531, 85118530, 1409084596, 4439382, 54362415, 39928544, 29130085, 40427070 #### [facility] (DEFAULT) [address] [place] [address] 50464Ejob Abs#9.8 y47Xlxq9.5-9.2MWadsworth-Rittman HospitalComment on above:Performed By: #### [id number], 82319016, 9369810, 68256565, 1338675806, 5069011, 25936440, 93651565, 65035089, 82925603 #### [facility] (DEFAULT) [address] [place] [address] 78793Dzgkktphaxy/100 WBC (Bld)82 %Pofdfj44-73Lbwnkt[address] [place] [address] Comment on above:Performed By: #### 6083698768, 65894417, 3233373, 40481428, 6457840788, 3126151, 46120863, 38991572, 33088018, 64351347 #### [facility] (DEFAULT) [address] [place] [address] 73257PXJXzsp 23-15-5288SRR and group Nom (Bld)Hx Check: Not Found Anti-A: 0 Anti-B: 0 Anti-D: 0 DCon: NT A1: 4+ B: 4+ ABORh Interp: O NEGInvalid Interpretation [facility] CenterComment on above: Performed By: #### [id number], 66902475, 6216987, 97389675, 3314357648, 0380599, 96056036, 33656845, 07389604, 58239644 #### [facility] (DEFAULT) [address] [place] [address] 71247UQHLv Retypeon 11-70-7145EUO and group Nom (Bld)Ordered by Discern. Anti-A: 0 Anti-B: 0 Anti-D: 0 DCon: NT A1: 4+ B: 3+ ABORh Retype: O NEGInvalid Interpretation [facility] CenterComment on above: Performed By: #### [id number], 39415380, 9774711, 67556781, 0735149216, 5951118, 55153984, 27642823, 05395334, 39050632 #### [facility] (DEFAULT) [address] [place] [address] 35943APKB Gelon 21-39-6468WQBI GelNegativeNormalWright-Patterson Medical CenterComment on above:Performed By: #### [id number] #### [facility] (DEFAULT) [address] [place] [address] 13382HGH w/ Auto Diffon 67-25-4910Fvywpufndbb distribution width (RBC) [Ratio]13.3 %Yammam24.5-15.0Wright-Patterson Medical CenterComment on above: Performed By: #### 5554687620, 77594248, 6192781, 70710182, 0498373034, 2057205, 05500514, 79758973, 97707899, 26832677 #### [facility] (DEFAULT) [address] [place] [address] 46505Jimgvdvyqq (Bld) [Volume fraction]41.2 %High33.7-40.4 [facility]-Patterson Medical CenterComment on above:Performed By: #### 1802118118, 39498174, 6670561, 88499820, 1741139722, 6128714, 22097579, 78647508, 79100465, 36268918 #### [facility] (DEFAULT) [address] [place] [address] 50489Ewcsjvstfg (Bld) [Mass/Vol]13.6 g/zNZhqeyn67.3-15.9 [facility]-Patterson Medical CenterComment on above:Performed By: #### 6203721136, 11509130, 1893911, 19058437, 7775360767, 4997726, 44439570, 68736243, 54083036, 14354352 #### [facility] (DEFAULT) [address] [place] [address] 15053Nyd Diff?AutoInvalid Interpretation [facility] Comment on above:Performed By: #### 3857833736, 97595871, 5840844, 55473757, 7095620220, 0902918, 03254274, 16012046, 74515961, 41929039 #### [facility] (DEFAULT) [address] [place] [address] (RBC) [Entitic mass]28 wdQmjduw28-13Gxxtvlbm Hospital Comment on above:Performed By: #### 1967568865, 54748558, 5360374, 20483156, 4339493508, 8944958, 13388577, 53143092, 57392961, 92867955 #### [facility] (DEFAULT) [address] [place] [address] (RBC) [Mass/Vol]33 g/hSIvmant21-77Afpammie Hospital Comment on above:Performed By: #### 2725974676, 48683896, 4441945, 17604069, 4843958181, 7618214, 04244785, 09915050, 81674150, 83739408 #### [facility] (DEFAULT) [address] [place], [place] [address] (RBC) [Entitic vol]86 zWDgnjhg24-984Gmkrrqkc Hospital Comment on above:Performed By: #### 4102277607, 18813186, 2893066, 26069791, 0750768019, 1249799, 68890547, 54802615, 70299218, 24105218 #### [facility] (DEFAULT) [address] [place] [address] 78679Npgogabp986 s65Qulrml506-170Cjjquhlf HospitalComment on above:Performed By: #### 8437407217, 89567740, 8046078, 34841420, 3675667610, 5565727, 25547709, 24838136, 17238760, 48886633 #### [facility] (DEFAULT) [address] [place], [place] [address]Platelet mean volume (Bld) [Entitic vol]8.4 fLNoal 6.3-10.2MWadsworth-Rittman HospitalComment on above:Performed By: #### 4932534880, 85191654, 7807646, 85000913, 2671959817, 2668290, 67632113, 47720864, 94882741, 83038309 #### [facility] (DEFAULT) [address] [place] [address] 76156IFE2.79 p48Nejzfr9.70-5.30[facility] HospitalComment on above:Performed By: #### 2592195505, 83185697, 8503163, 73996516, 6894905872, 8313234, 95429186, 02772564, 84757155, 93054039 #### [facility] (DEFAULT) [address] [place] [address] 08525QKN55.8 m46Oioh3.5-10.5[facility] HospitalComment on above: Performed By: #### 1557368789, 73471854, 0543482, 36036177, 7831035206, 1484732, 37222753, 34958147, 25562622, 57940591 #### [facility] (DEFAULT) [address] [place] [address] 47640BkaT2f Standardon 10-06-2023.Hb15.7Invalid Interpretation [facility] HospitalComment on above:Performed By: #### 6148763078, 50185770, 9522230, 76258772, 3423276571, 2508540, 71268591, 91062394, 88891038, 21068575 #### [facility] (DEFAULT) [address] [place] [address] 72008.Hgb A1c0.45 g/dLInvalid Interpretation CodeSamaritan Hospital HospitalComment on above:Performed By: #### 5215104091, 06922462, 0200290, 81406349, 1234861586, 4558736, 75386527, 80941939, 81095691, 34517333 #### [facility] (DEFAULT) [address] [place] [address] 71856Qpzqmke [Mass/Vol]88 mg/dLInvalid Interpretation Code [facility] HospitalComment on above:Performed By: #### 8426832294, 89670774, 3161104, 91892416, 6299398357, 9050576, 14388140, 12361944, 97541802, 61062533 #### [facility] (DEFAULT) [address] [place], [place] [address]YnH9b (Bld) [Mass fraction]4.7 %Normal4.6-6.2MWadsworth-Rittman HospitalComment on above:Performed By: #### 7210565262, 93465028, 2362012, 84129304, 7190902574, 3268138, 93852184, 62151513, 34700052, 41985336 #### [facility] (DEFAULT) [address] [place] [address] 97789Znxdbrjz Orderson 75-60-8670Gebpgdev Orders 149.45.82.6.96790396659627603103473696#1.00OTGTSamaritan HospitalCoding Summaryon 55-55-4544Icsoik SummaryHTMLBase 64 HfmfyyctEXs4tNb+PGhlYWQ+IK9NRMSpR46mmUBicL1tX2MXPAyBQkfcHAQYQNkXVbYkzsPxFJ0wmCUo ZXJu [file] [facility] (more content not included)...NormalWright-Patterson Medical Center.Auto Diff 102-90-3248Ylvy Mckean %6 %Normal1-12W[facility]-Patterson Medical CenterComment on above:Performed By: #### [id number] #### [facility] (DEFAULT) [address] [place] [address] 56721Nrrd Abs#0.1 q18Qbjsox9.0-0.2Magrsouthern ohio medical center HospitalComment on above:Performed By: #### [id number] #### [facility] (DEFAULT) [address] [place] [address] 20213Rwqnxcabx/100 WBC (Bld)0.8 %Normal0.2-2.0[facility] Hospital Comment on above:Performed By: #### [id number] #### [facility] (DEFAULT) [address] [place] [address] 83308Lha Abs#0.1 h27Mdccoz1.0-0.4[facility] HospitalComment on above:Performed By: #### [id number] #### [facility] (DEFAULT) [address] [place] [address] 56623Aarqjvwccua/100 WBC (Bld)1.8 %Normal0.9-4.0[facility] HospitalComment on above:Performed By: #### [id number] #### [facility] (DEFAULT) [address] [place] [address] 34681Ktdfn Abs#2.1 v43Qtolhe4.3-2.9[facility] HospitalComment on above:Performed By: #### [id number] #### [facility] (DEFAULT) [address] [place] [address] 53128Vhffarmlrvw/100 WBC (Bld)26 %Ifpiia60-55Bpysognn Hospital Comment on above:Performed By: #### [id number] #### [facility] (DEFAULT) [address] [place] [address] 21213Iysc Abs#0.5 i53Bkcxlf9.0-0.8[facility] HospitalComment on above:Performed By: #### [id number] #### [facility] (DEFAULT) [address] [place] [address] 72476Tyoz Abs#5.2 l87Vqosly6.5-9.2Mvan [facility] HospitalComment on above:Performed By: #### [id number] #### [facility] (DEFAULT) [address] [place] [address] 03788Llentwvajkr/100 WBC (Bld)65 %Nrzlyp51-97Bkwwqlwn Hospital Comment on above:Performed By: #### [id number] #### [facility] (DEFAULT) [address] [place] [address] [id number] w/ Auto Diffon [id number] Diff?AutoInvalid Interpretation CodeSamaritan Hospital HospitalComment on above:Performed By: #### [id number] #### [facility] (DEFAULT) [address] [place] [address] [id number] distribution width (RBC) [Ratio]13.1 %Normal 11.5-15.0[facility] HospitalComment on above:Performed By: #### [id number] #### [facility] (DEFAULT) [address] [place] [address] 01086Dxmkffmhaz (Bld) [Volume fraction]40.7 %High33.7-40.4 [facility] HospitalComment on above:Performed By: #### [id number] #### [facility] (DEFAULT) [address] [place] [address] 44623Sdydpmbgrm (Bld) [Mass/Vol]14.0 g/cFBfthcg91.3-15.9 [facility] HospitalComment on above:Performed By: #### [id number] #### [facility] (DEFAULT) [address] [place] [address] 84877KIF (RBC) [Entitic mass]29 zaPlpncn53-71Zcbuaeza Hospital Comment on above:Performed By: #### [id number] #### [facility] (DEFAULT) [address] [place] [address] 39402DBRW (RBC) [Mass/Vol]34 g/yGRtguyw87-48Qrvfjwnt Hospital Comment on above:Performed By: #### [id number] #### [facility] (DEFAULT) [address] [place] [address] 09706UET (RBC) [Entitic vol]85 sINlxoxs04-697Gpqopvos [facility] Comment on above:Performed By: #### [id number] #### [facility] (DEFAULT) [address] [place] [address] 59307Zeibqpzs064 f25Ngxmxw330-768Dmfqkvkh HospitalComment on above:Performed By: #### [id number] #### [facility] (DEFAULT) [address] [place] [address] 87528Aoryveam mean volume (Bld) [Entitic vol]7.7 fLNormal 6.3-10.2[facility] HospitalComment on above:Performed By: #### [id number] #### [facility] (DEFAULT) [address] [place] [address] 61110CLI0.79 t54Yhtqvj5.70-5.30[facility] HospitalComment on above:Performed By: #### [id number] #### [facility] (DEFAULT) [address] [place] [address] 90129RQZ2.9 z70Tbsjzk7.5-10.5[facility] HospitalComment on above: Performed By: #### [id number] #### [facility] (DEFAULT) [address] [place] [address] 02247RUD Standardon 85-33-3922jDNZ Non AA>60Invalid Interpretation [facility] CenterComment on above:Performed By: #### [id number] #### [facility] (DEFAULT) [address] [place] [address] 57672qYKX AA>60Invalid Interpretation [facility] Comment on above:Performed By: #### [id number] #### [facility] (DEFAULT) [address] [place] [address] 55399Fezeaqb [Mass/Vol]4.0 g/dLNormal3.5-5.0[facility] Comment on above:Performed By: #### [id number] #### [facility] (DEFAULT) [address] [place] [address] 86251Lsevcvy/Globulin [Mass ratio]1.2 {ratio}Low1.4-2.6[facility] HospitalComment on above:Performed By: #### [id number] #### [facility] (DEFAULT) [address] [place] [address] 87075Nxn Phos68 IU/RSjzffi76-52Pkvyqcxr HospitalComment on above:Performed By: #### [id number] #### [facility] (DEFAULT) [address] [place] [address] 17081MPC [Catalytic activity/Vol]14.0 U/VHjszhe97.0-54.0 [facility] CenterComment on above:Performed By: #### [id number] #### [facility] (DEFAULT) [address] [place] [address] 69458Tybcq gap [Moles/Vol]10.9 mmol/LNormal5.0-19.0[facility] HospitalComment on above:Performed By: #### [id number] #### [facility] (DEFAULT) [address] [place] [address] 42257CBD [Catalytic activity/Vol]18 U/JVooany30-45Cfdolijp HospitalComment on above:Performed By: #### [id number] #### [facility] (DEFAULT) [address] [place] [address] 19836Pzlb Total0.6 mg/dLNormal0.3-1.2[facility] HospitalComment on above:Performed By: #### [id number] #### [facility] (DEFAULT) [address] [place] [address] 69606Vwdnjay [Mass/Vol]8.8 mg/dLLow8.9-10.3[facility] Hospital Comment on above:Performed By: #### [id number] #### [facility] (DEFAULT) [address] [place] [address] 61981Bfdtwvlc [Moles/Vol]107 mmol/GRzqond422-207Urgqazna HospitalComment on above:Performed By: #### [id number] #### [facility] (DEFAULT) [address] [place] [address] 46017NP4 [Moles/Vol]23 mmol/ZJpgxyq77-32Yzmofjiv Hospital Comment on above:Performed By: #### [id number] #### [facility] (DEFAULT) [address] [place] [address] 77158Kdrhchlrrs [Mass/Vol]0.68 mg/dLNormal0.60-1.30[facility] HospitalComment on above:Performed By: #### [id number] #### [facility] (DEFAULT) [address] [place] [address] 82138Lddwzsca (S) [Mass/Vol]3.3 g/dLNormal1.5-4.3[facility] HospitalComment on above:Performed By: #### [id number] #### [facility] (DEFAULT) [address] [place] [address] 94736Wfefwee [Mass/Vol]103.0 mg/tQFjgtal26.0-118.0[facility] HospitalComment on above:Performed By: #### [id number] #### [facility] (DEFAULT) [address] [place] [address] 39299Bimepsnppu690 mOsm/LInvalid Interpretation CodeSamaritan Hospital HospitalComment on above:Performed By: #### [id number] #### [facility] (DEFAULT) [address] [place] [address] 63101Bxitukesm [Moles/Vol]3.9 mmol/LNormal3.6-5.1[facility] HospitalComment on above:Performed By: #### [id number] #### [facility] (DEFAULT) [address] [place] [address] 60299Rxnpxtb [Mass/Vol]7.3 g/dLNormal6.5-8.1[facility] Hospital Comment on above:Performed By: #### [id number] #### [facility] (DEFAULT) [address] [place] [address] 80410Ypdusy [Moles/Vol]137.0 mmol/CGasjhs809.0-144.0[facility] HospitalComment on above:Performed By: #### [id number] #### [facility] (DEFAULT) [address] [place] [address] 55402Gnot nitrogen [Mass/Vol]12 mg/dLNormal8-26[facility] HospitalComment on above:Performed By: #### [id number] #### [facility] (DEFAULT) [address] [place] [address] 22086Barb nitrogen/Creatinine [Mass ratio]17.6 mg/mgHigh 4.6-16.2[facility] HospitalComment on above:Performed By: #### [id number] #### [facility] (DEFAULT) [address] [place] [address] 74786Uyjjh Panel Standardon 68-24-5069Utpupzywlfl [Mass/Vol] 158.0 mg/lEDatuiy45.0-200.0[facility] HospitalComment on above:Performed By: #### [id number] #### [facility] (DEFAULT) [address] [place] [address] 27508Ogcwyodubeu in HDL [Mass/Vol]51 mg/kMRonsom16-01Quytzhxy HospitalComment on above:Performed By: #### [id number] #### [facility] (DEFAULT) [address] [place] [address] 79608Viemgdbnxte in LDL [Mass/Vol]98 mg/dLNormal1-100[facility] HospitalComment on above:Performed By: #### [id number] #### [facility] (DEFAULT) [address] [place] [address] 00512Mpgbcbuculg.total/Cholesterol in HDL [Mass ratio]3.0 {ratio}Normal0.0-4.5[facility] HospitalComment on above:Performed By: #### [id number] #### [facility] (DEFAULT) [address] [place] [address] 54338Davlcidxqlju [Mass/Vol]43.0 mg/dLNormal0.0-150.0[facility] HospitalComment on above:Performed By: #### [id number] #### [facility] (DEFAULT) [address] [place] [address] 25739AMQC.9 mg/dLNormal5-40[facility] HospitalComment on above: Performed By: #### [id number] #### [facility] (DEFAULT) [address] [place] [address] 28570Uxvozfgbhndm LCon 43-54-6593Tkfbskznntid LC0.7 ng/mL Invalid Interpretation CodeWright-Patterson Medical CenterComment on above:Result Comment: Follicular phase 0.1 - 0.9 Luteal phase 1.8 - 23.9 Ovulation phase 0.1 - 12.0 First trimester 11.0 - 44.3 Second trimester 25.4 - 83.3 Third trimester 58.7 - 214.0 Postmenopausal 0.0 - 0.1 Performed At: [facility] [id number] Bibi Irwin PhD Ph:[phone] By: #### [id number] #### [facility] (DEFAULT) [address] [place] [address] 98646Urodhk Summaryon 43-31-4165Hzbwsc SummaryHTMLBase 64 ZeofldlhHAf9oPi+PGhlYWQ+HI7WNOGgW17yuYHlvR2eU5NJZSeIOjbuFJIKUAoPVpKiehUwYF6gqCWq ZXJu [file] b2x (more content not included)...[facility] Throaton 01-12-2023 ThroatOrdered by Discern. Normal throat dong isolated No pathogens isolatedNoTuscarawas HospitalComment on above:Performed By: #### [id number], [id number], [id number] #### [facility] (DEFAULT) [address] [place] [address] 65063Fifywslxwtwa LCon 04-68-6686Zvxkdncjzkbq LC8.7 ng/mL Invalid Interpretation [facility] CenterComment on above:Result Comment: Follicular phase 0.1 - 0.9 Luteal phase 1.8 - 23.9 Ovulation phase 0.1 - 12.0 First trimester 11.0 - 44.3 Second trimester 25.4 - 83.3 Third trimester 58.7 - 214.0 Postmenopausal 0.0 - 0.1 Performed At: [facility] [id number] Bibi Irwin PhD Ph:[phone] By: #### [id number], [id number], [id number] #### [facility] (DEFAULT) [address] [place] [address] 14791LM Clinical Summaryon 66-58-1924JL Clinical Summary [facility] ? Urgent Care [address] [place] [address] Clinical Summary PERSON INFORMATION Name: BRYNN WALLACE Age: 22 Years Sex: FEMALE : 2000 MRN: Acct#: Visit Reason: Throat pain - Adult; Body aches; SORE THROAT, HEADACHE Arrival: 01/10/2023 13:26:17 Discharge: 01/10/2023 15:12:00 LOS: 000 01:46 Check In: 01/10/2023 13:26:17 Checkout: 01/10/2023 15:12:00 Address: [address] [place], [place] [id number] PCP: Leah Azar PROVIDER INFORMATION Provider Role Assigned Unassigned Genesis Calvillo PA-C ED PA 01/10/2023 13:47:57 Kristen Velazquez [employer] Nurse 01/10/2023 13:53:38 VITALS INFORMATION Vital Sign [...] Follow-Up: With: Address: When: Leah Azar [address] [place], [place] [id number] DIAGNOSIS: 1:Systemic viral illness; 2:Viral pharyngitis Patient Understands: Comment:[facility] HospitalED Patient Summary [id number] Patient Summary [facility] ? Urgent Care [address] [place], [place] [id number] PATIENT DISCHARGE INSTRUCTIONS Patient Information Name: BRYNN WALLACE Age: 22 Years Date of : 2000 Reason For Visit: Throat pain - Adult; Body aches; SORE THROAT, HEADACHE Arrival Time: 01/10/2023 13:26:17 Phone: Primary Care Physician: Leah Azar Attending Physician: Genesis Calvillo PA-C Comment: Patient Education With: Address: When: Leah Azar [address] [place] [address] [phone] Sore Throat A sore throat is pain, [...] these instructions at home: Medicines ? Take oryq-ieb-lndozqb and prescription medicines only as told by [...] and water are not available, use hand trauma therapist. Contact a health care provider if: ? [...] can cause a sore throat. ? Take bvot-zuh-rkmtccd medicines only as told by your health [...] provider. Document Revised: 07/08/2021 Document Reviewed: 07/08/2021 [employer] Patient Education ? 2022 [employer]. Viral Illness, Adult Viruses are tiny germs [...] divide and grow ou (more content not included)...[facility] SystemARS-CoV-2 (COVID-19) PCRon 98-38-0817Hwykifoy ControlPassNormSamaritan HospitalComment on above:Performed By: #### [id number] #### [facility] (DEFAULT) [address] [place], [place] [address]DGXZ-DlC-8 (COVID-19) RNA HERBER+probe Ql (Unsp spec)Not detectedNormalNot [facility] HospitalComment on above:Result Comment: Performed by PCR methodology.Performed By: #### [id number] #### [facility] (DEFAULT) [address] [place] [address] 06881Cnhfr Aon 95-33-9435Bcwwc procedure controlPassNormal [facility] CenterComment on above:Performed By: #### [id number], [id number], [id number] #### [facility] (DEFAULT) [address] [place] [address] 36835Rqfqsrcyhedpv ANegativeNormalNegativeWright-Patterson Medical Center Comment on above:Performed By: #### [id number], [id number], [id number] #### [facility] (DEFAULT) [address] [place] [address] 11640Ytukrloetkpg LCon 38-51-9268Jpiqmgvyluxd LC6.2 ng/mL Invalid Interpretation [facility] CenterComment on above:Result Comment: Follicular phase 0.1 - 0.9 Luteal phase 1.8 - 23.9 Ovulation phase 0.1 - 12.0 First trimester 11.0 - 44.3 Second trimester 25.4 - 83.3 Third trimester 58.7 - 214.0 Postmenopausal 0.0 - 0.1 Performed At: [facility] [address] [id number] Bibi Irwin PhD Ph:[phone] By: #### [id number], [id number], [id number] #### [facility] (DEFAULT) [address] [place] [address] 89103Mbrhuijp Orderson 19-45-9347Fjdopoip Orders [id number]#1.00OTGTIFFBlanchard Valley Health [facility] Hospital Coding Summaryon 80-86-9529Khsonj SummaryHTMLBase 64 RujmvmazWYp2yUl+PGhlYWQ+TS6PGDZfV72jmTYcyS8zC4UXKMxVIdgjVLRXEZmXNvBwdbNoVV9rmZFk ZXJu [file] b2x (more content not included)...NormalMagruder HospitalUS Pelvis Non-OB Completeon 90-83-0680MR Pelvis Non-OB Complete_History: PCOS Technique: Sonography of [...] Brian Burr MD 11/30/22 10:38 a Technologist: BRIANCleveland Clinic FoundationProvider Orderson 71-39-9143Iefgvysh [id number]#1.00OTGTIFFBlanchard Valley Health System Bluffton HospitalCoding Summaryon 79-70-3727Acetre SummaryMLBase 64 HiuxzdzkORo1ySx+PGhlYWQ+YZ9DFVKsT91mnKFlzQ4oK5DEBGvFOexmPGNDETxIWsOjehCbIC2zhGMz ZXJu [file] b2x (more content not included)...[facility] HospitalDehydroepiandrosterone (DHEA) LCon 30-46-8240Ayephqnctjdvxqlbtlujtp (DHEA) LC340 ng/dLInvalid Interpretation Nvzb93-456Vsvigrqk HospitalComment on above:Result Comment: This test was developed and its performance characteristics determined by [facility]. It has not been cleared or approved by the Food and Drug Administration. Performed At: [address] [id number] Morris Nayak MD Ph:[phone] By: #### [id number], [id number], [id number] #### [facility] (DEFAULT) [address] [place] [address] 27742Wzhckljyjrmxmafilpfdnz Sulfate LCon 01-92-1994DTCN-Sulfate LC612.0 ug/aUFhuz212.0-431.7[facility] Medical CenterComment on above:Result Comment: Performed At: [address] [id number] Bibi Irwin PhD Ph:[phone] By: #### [id number], [id number], [id number] #### [facility] (DEFAULT) [address] [place] [address] 09721KQN and LH LCon 56-09-6679RPV LC1.9 mIU/mLInvalid Interpretation [facility] CenterComment on above:Result Comment: Adult Female: Follicular phase 3.5 - 12.5 Ovulation phase 4.7 - 21.5 Luteal phase 1.7 - 7.7 Postmenopausal 25.8 - 134.8 Performed At: [address] [id number] Bibi Irwin PhD Ph:[phone] By: #### [id number], [id number], [id number] #### [facility] (DEFAULT) [address] [place] [address] 25400PD LC1.9 mIU/mLInvalid Interpretation [facility] CenterComment on above:Result Comment: Adult Female: Follicular phase 2.4 - 12.6 Ovulation phase 14.0 - 95.6 Luteal phase 1.0 - 11.4 Postmenopausal 7.7 - 58.5Performed By: #### [id number], [id number], [id number] #### [facility] (DEFAULT) [address] [place] [address] 33126.Auto Diff 1on 85-55-2513Zeva Mckean %5 %Normal1-12[facility] HospitalComment on above:Performed By: #### [id number], [id number], [id number] #### [facility] (DEFAULT) [address] [place] [address] 63587Ugrw Abs#0.1 z38Giacfb9.0-0.2Magrsouthern [facility]io medical center HospitalComment on above:Performed By: #### [id number], [id number], [id number] #### [facility] (DEFAULT) [address] [place] [address] 12687Mqixlknrb/100 WBC (Bld)1.0 %Normal0.2-2.0[facility] Hospital Comment on above:Performed By: #### [id number], [id number], [id number] #### [facility] (DEFAULT) [address] [place] [address] 53153Mqu Abs#0.1 w04Krahlp0.0-0.4Mapromedica memorial hospital HospitalComment on above:Performed By: #### [id number], [id number], [id number] #### [facility] (DEFAULT) [address] [place] [address] 40127Cwphcehiopa/100 WBC (Bld)0.7 %Low0.9-4.0[facility] Comment on above:Performed By: #### [id number], [id number], [id number] #### [facility] (DEFAULT) [address] [place] [address] 87131Kuuoc Abs#1.9 p65Uyuslu1.3-2.9Mapromedica memorial hospital HospitalComment on above:Performed By: #### [id number], [id number], [id number] #### [facility] (DEFAULT) [address] [place] [address] 55293Lvcjwbrlwre/100 WBC (Bld)19 %Qbychf82-03Vhqkqlas Hospital Comment on above:Performed By: #### [id number], [id number], [id number] #### [facility] (DEFAULT) [address] [place] [address] 70917Vvbs Abs#0.5 r79Lfdmwx9.0-0.8Mapromedica memorial hospital HospitalComment on above:Performed By: #### [id number], [id number], [id number] #### [facility] (DEFAULT) [address] [place] [address] 50269Qfhu Abs#7.7 o87Enrwem4.5-9.2Magrsouthern ohio medical center HospitalComment on above:Performed By: #### [id number], [id number], [id number] #### [facility] (DEFAULT) [address] [place] [address] 95068Tafyjncevjg/100 WBC (Bld)75 %Dvpncx74-18C[facility]gpum [facility] Comment on above:Performed By: #### [id number], [id number], [id number] #### [facility] (DEFAULT) [address] [place] [address] 37386OHM w/ Auto Diffon 89-51-5199Kdrnuinwgeh distribution width (RBC) [Ratio]12.9 %Gnjjfm80.5-15.0[facility] HospitalComment on above: Performed By: #### [id number], [id number], [id number] #### [facility] (DEFAULT) [address] [place] [address] 93349Fmuejkutbo (Bld) [Volume fraction]41.8 %High33.7-40.4 [facility] HospitalComment on above:Performed By: #### [id number], [id number], [id number] #### [facility] (DEFAULT) [address] [place] [address] 99160Qapnolluxh (Bld) [Mass/Vol]14.0 g/aGLaeqap74.3-15.9 [facility] HospitalComment on above:Performed By: #### [id number], [id number], [id number] #### [facility] (DEFAULT) [address] [place] [address] 95508Ixf Diff?AutoInvalid Interpretation CodeWright-Patterson Medical Center Comment on above:Performed By: #### [id number], [id number], [id number] #### [facility] (DEFAULT) [address] [place] [address] 94037ISB (RBC) [Entitic mass]29 ncDpiywn57-95Ga[facility]zac [facility] Comment on above:Performed By: #### [id number], [id number], [id number] #### [facility] (DEFAULT) [address] [place] [address] 26981QOBX (RBC) [Mass/Vol]34 g/rEMobuwi91-82Ykvncjbp Hospital Comment on above:Performed By: #### [id number], [id number], [id number] #### [facility] (DEFAULT) [address] [place] [address] 15989MWU (RBC) [Entitic vol]87 bVLlxhwz94-046Rphgxegt Hospital Comment on above:Performed By: #### [id number], [id number], [id number] #### [facility] (DEFAULT) [address] [place] [address] 74676Qupisnze358 u28Jddoyk471-755Lyqooawg HospitalComment on above:Performed By: #### [id number], [id number], [id number] #### [facility] (DEFAULT) [address] [place] [address] 11503Fnowvmie mean volume (Bld) [Entitic vol]8.0 fLNormal 6.3-10.2[facility] HospitalComment on above:Performed By: #### [id number], [id number], [id number] #### [facility] (DEFAULT) [address] [place] [address] 50220XHH8.83 f29Jxelqn1.70-5.30[facility] HospitalComment on above:Performed By: #### [id number], [id number], [id number] #### [facility] (DEFAULT) [address] [place] [address] 16392DVJ28.3 q59Ihpsit8.5-10.5[facility] HospitalComment on above:Performed By: #### [id number], [id number], [id number] #### [facility] (DEFAULT) [address] [place] [address] 86456Ptmf T4on 34-21-0000Kadg T4 [Mass/Vol]1.06 ng/dLNormal 0.61-1.12[facility] HospitalComment on above:Performed By: #### [id number], 53665781, [id number] #### [facility] (DEFAULT) [address] [place] [address] 56549XhcP5k Standardon 11-17-2022.Hb15.7Invalid Interpretation CodeSamaritan Hospital HospitalComment on above:Performed By: #### [id number], [id number], [id number] #### [facility] (DEFAULT) [address] [place] [address] 61304.Hgb A1c0.55 g/dLInvalid Interpretation [facility] HospitalComment on above:Performed By: #### [id number], [id number], [id number] #### [facility] (DEFAULT) [address] [place] [address] 36546Oecdsrb [Mass/Vol]105 mg/dLInvalid Interpretation Code [facility] HospitalComment on above:Performed By: #### [id number], [id number], [id number] #### [facility] (DEFAULT) [address] [place] [address] 93831WmN2f (Bld) [Mass fraction]5.3 %Normal4.6-6.2[facility] HospitalComment on above:Performed By: #### [id number], [id number], [id number] #### [facility] (DEFAULT) [address] [place] [address] 21326Bscywypl Orderson 85-45-8217Mlowqeak Orders [id number]#1.00OTGTIFFBlanchard Valley Health System Bluffton HospitalTSHon 90-13-5664BDI Qn1.26 m[IU]/LNormal0.45-5.33[facility] HospitalComment on above: Performed By: #### [id number], [id number], [id number] #### [facility] (DEFAULT) [address] [place] [address] 81150fKY Quantitativeon 51-59-5149nGM Quantitative<0.6Normal 0.0-0.6M[facility] HospitalComment on above:Result Comment: Post-Menopausal Reference Range is: 0.1-11.6 mIU/mLPerformed By: #### [id number], [id number], [id number] #### [facility] (DEFAULT) [address] [place] [address] 63799Ouq - Toxicology Resultson 97-32-7961Jzg - Toxicology [id number]#1.00OTGTSamaritan HospitalQuantiFERON-TB Gold Pluson 93-57-5750AeturhJFRZK-TB Gold PlusNegative Invalid Interpretation CodeNegativeWright-Patterson Medical CenterComment on above:Result Comment: No response to M tuberculosis antigens detected. Infection with M tuberculosis is unlikely, but high risk individuals should be considered for additional testing (ATS/IDSA/CDC Clinical Practice Guidelines, 2017). The reference range is an Antigen minus Nil result of <0.35 IU/mL. Chemiluminescence immunoassay methodology Performed At: [facility] [id number] Bibi Irwin PhD Ph:[phone] By: #### [id number], [id number], [id number] #### [facility] (DEFAULT) [address] [place] [address] 24477AbeukfKTRQQ IncubationIncubation performed.Invalid Interpretation CodeWright-Patterson Medical CenterComment on above:Result Comment: Performed At: [address] [id number] Bibi Irwin PhD Ph:[phone] By: #### [id number], [id number], [id number] #### [facility] (DEFAULT) [address] [place] [address] 84757JPFfe Qnt LCon 07-27-2776Tgc B Surf Ab Quant LC<3.1Low Immunity>9.9Mapromedica memorial hospital HospitalComment on above:Result Comment: Status of Immunity Anti-HBs Level Inconsistent with Immunity 0.0 - 9.9 Consistent with Immunity >9.9 Performed At: [address] [id number] Bibi Irwin PhD Ph:[phone] By: #### [id number], [id number], [id number] #### [facility] (DEFAULT) [address] [place] [address] 45727Xodhlld/Mumps/Rubella Immunity LCon 64-80-6063Ohmuu Abs, IgG LC132.0 AU/mLInvalid Interpretation CodeImmune >10.9W[facility] Medical CenterComment on above:Result Comment: Negative <9.0 Equivocal 9.0 - 10.9 Positive >10.9 A positive result generally indicates past exposure to Mumps virus or previous vaccination. Performed At: [address] [id number] Bibi Irwin PhD Ph:[phone] By: #### [id number] #### [facility] (DEFAULT) [address] [place] [id number] Antibodies, IgG LC1.78 indexInvalid Interpretation CodeImmune >0.99[facility] HospitalComment on above:Result Comment: Non-immune <0.90 Equivocal 0.90 - 0.99 Immune >0.99Performed By: #### [id number] #### [facility] (DEFAULT) [address] [place] [address] [id number] Ab, IgG, EIA LC>300.0Invalid Interpretation Code Immune >16.4[facility] CenterComment on above:Result Comment: Negative <13.5 Equivocal 13.5 - 16.4 Positive >16.4 Presence of antibodies to Rubeola is presumptive evidence of immunity except when acute infection is suspected.Performed By: #### [id number], [id number], [id number] #### [facility] (DEFAULT) [address] [place], [place] [address]Uvdtamug Metabolite, Urine LCon [id number] LC NegativeInvalid Interpretation LyuoFtsfjp=343Zzntwdug HospitalComment on above: Result Comment: Performed At: [facility] [place] [address] [facility] [place], [place] [id number] Rachel Garcia PhD Ph:[phone] By: #### [id number], [id number], [id number] #### [facility] (DEFAULT) [address] [place] [address] [id number] Pelvic Complete w/Transvaginalon [id number] Pelvic Complete w/TransvaginalFindings: Anteverted uterus measures 8.2 [...] and signed by Pepito Martins on 06/22/2022 1125NormalNorthern Silver Hill HospitalXR Abdomen Single View (KUB)*on 68-85-3510SF Abdomen Single View (KUB)*COMPARISON: NONE. FINDINGS: The bowel gas pattern is unremarkable. There are no dilated loops of bowel. There are no acute osseous changes. IMPRESSION: There are no acute changes. Report reported and signed by ALONSO PADRON on 06/19/2022 1201NormalNortencompass health rehabilitation hospital of [facility] AUTO DIFFon 05-84-0491LDRV #0.1 103/ulNormal0.0-0.1 The [facility] CenterComment on above:Performed By: #### CBC #### [facility] [address] [address] Jatin KarenBasophils/100 WBC (Bld)0.7 %Normal0.2-2.0The [facility] Comment on above:Performed By: #### CBC #### [facility] [address] [place] [address] Jatin KarenEO #0.4 103/ulNormal0.0-0.7The [facility] CenterComment on above: Performed By: #### CBC #### [facility] [address] [address] Jatin KarenEosinophils/100 WBC (Bld)3.4 %Normal0.9-7.0The [facility] Comment on above:Performed By: #### CBC #### [facility] [address] [place] [address] Jatin KarenErythrocyte distribution width (RBC) [Ratio]11.8 %Ckwfhz27.0-15.0The [facility] CenterComment on above:Performed By: #### CBC #### [facility] [address] [address] Jatin KarenHematocrit (Bld) [Volume fraction]42.6 %Iwlxqu09.0-48.0The [facility] CenterComment on above:Performed By: #### CBC #### [facility] [address] [place], [place] [id number] Jatin KarenHemoglobin (Bld) [Mass/Vol]14.3 g/jOXldlqk41.0-16.0The [facility] CenterComment on above:Performed By: #### CBC #### [facility] [address] [place] [address] Jatin VergaraenIG #0.03 10e3/ulNormal0.00-0.03The [facility] CenterComment on above:Performed By: #### CBC #### [facility] [address] [place] [address] Jatin VergaraenIG %0.3 %Normal0.0-0.5The [facility] CenterComment on above: Performed By: #### CBC #### [facility] [address] [place] [address] Jatin VergaraenLYMPH #2.2 103/ulNormal1.2-3.8The [facility] CenterComment on above: Performed By: #### CBC #### [facility] [address] [place] [address] Jatin VergaraenLymphocytes/100 WBC (Bld)20.7 %Kygtiq76.5-60.0[facility] Comment on above:Performed By: #### CBC #### [facility] [address] [place] [address] Jatin VergaraenMANUAL DIFF REQNONormalThe [facility] CenterComment on above: Performed By: #### CBC #### [facility] [address] [place] [address] Jatin KarenCREEDMOOR [facility] (RBC) [Entitic mass]30.4 roAmfjtk93.7-34.0[facility] Comment on above:Performed By: #### CBC #### [facility] [address] [place] [address] Jatin KarenMC (RBC) [Mass/Vol]33.6 g/xTDfxuhy53.9-35.2The [facility] Comment on above:Performed By: #### CBC #### [facility] [address] [place] [address] Jatin KarenMCV (RBC) [Entitic vol]90.4 bRJircub83.0-99.0[facility] Comment on above:Performed By: #### CBC #### [facility] [address] [place] [address] Jatin VergaraenMONO #0.6 103/ulNormal0.3-0.8The [facility] CenterComment on above: Performed By: #### CBC #### [facility] [address] [place] [address] Jatin KarenMonocytes/100 WBC (Bld)6.0 %Normal1.7-12.0The [facility] Comment on above:Performed By: #### CBC #### [facility] [address] [place] [address] Jatin VergaraenNEUT #7.3 103/ulCritically high1.4-6.5The [facility] CenterComment on above:Performed By: #### CBC #### [facility] [address] [place] [address] Jatin VergaraenNeutrophils/100 WBC (Bld)68.9 %Aqzeup44.0-75.0The [facility] Comment on above:Performed By: #### CBC #### [facility] [address] [place] [address] Jatin KarenPlatelet mean volume (Bld) [Entitic vol]9.7 fLNormal9.5-13.5The [facility] CenterComment on above:Performed By: #### CBC #### [facility] [address] [place] [address] Jatin VfvscXRX127 103/ouDsljqr360-738Qos [facility] CenterComment on above: Performed By: #### CBC #### [facility] [address] [place] [address] Jatin KarenRBC4.71 106/ulNormal4.20-5.40The [facility] CenterComment on above: Performed By: #### CBC #### [facility] [address] [place] [address] Jatin JqvgfLSF37.6 103/ulNormal4.0-11.0The [facility] CenterComment on above: Performed By: #### CBC #### [facility] [address] [place] [address] Jatin VergaraenCT ABD/PELV W Rivera 95-91-6607IC ABD/PELV W CONEXAMINATION: CT ABD/PELV W CON [...] Electronically authenticated by: Sabiha RUSHING Date: 2020-12-12 04:08NormCleveland Clinic Ment[facility] Hospitale [facility] CenterPREG HCG QUALon 61-65-5141EEIHXXWUX, QUALNegativeNormalNEGATIVE The [facility] CenterComment on above:Performed By: #### PREG #### [facility] [address] [place] [address] Jatin KarenPROF 14(COMP METB)on 89-30-2327Zxgsloi [Mass/Vol]3.9 g/dLNormal 3.5-5.0The [facility] CenterComment on above:Performed By: #### CMP #### [facility] [address] [place] [address] Jatin KarenAlbumin/Globulin [Mass ratio]1.1 {ratio}NormalThe [facility] Comment on above:Performed By: #### CMP #### [facility] [address] [place] [address] Jatin KarenALP [Catalytic activity/Vol]93 U/FVbakok06-012Cus [facility] Comment on above:Performed By: #### CMP #### [facility] [address] [id number] Jatin KarenALT [Catalytic activity/Vol]16 U/LNormal9-52The [facility] Comment on above:Performed By: #### CMP #### [facility] [address] [address] Jatin KarenAnion gap [Moles/Vol]17.1 mmol/LNormalThe [facility] CenterComment on above:Performed By: #### CMP #### [facility] [address] [address] Jatin KarenAST [Catalytic activity/Vol]3 U/LCritically hja72-44Vfc [facility] CenterComment on above:Performed By: #### CMP #### [facility] [address] [place] [address] Jatin KarenBilirubin [Mass/Vol]0.3 mg/dLNormal0.2-1.3TUniversity Hospitals [facility] Comment on above:Performed By: #### CMP #### [facility] [address] [address] Jatin KarenCalcium [Mass/Vol]8.9 mg/dLNormal8.4-10.2[facility] Comment on above:Performed By: #### CMP #### [facility] [address] [place] [address] Jatin KarenChloride [Moles/Vol]106 mmol/DXauqxy87-764MygBerger Hospital Comment on above:Performed By: #### CMP #### [facility] [address] [address] Jatin KarenCO2 [Moles/Vol]23.0 mmol/ZEtotsy22.0-30.0[facility] Comment on above:Performed By: #### CMP #### [facility] [address] [address] Jatin KarenCreatinine [Mass/Vol]0.76 mg/dLNormal0.52-1.04[facility] Comment on above:Performed By: #### CMP #### [facility] [address] [address] Jatin KarenEGFR-AF SOUTH KOREAN>60Normal>=60The [facility] CenterComment on above: Performed By: #### CMP #### [facility] [address] [place] [address] Jatin KarenEGFR-NON AF S[place]OREAN>60Normal>=60The [facility] CenterComment on above:Performed By: #### CMP #### [facility] [address] [address] Jatin KarenGlobulin (S) [Mass/Vol]3.7 g/dLNormalThe [facility] CenterComment on above:Performed By: #### CMP #### [facility] [address] [place] [address] Jatin KarenGlucose [Mass/Vol]96 mg/dNXqdkdu29-299Ndn [facility] CenterComment on above:Performed By: #### CMP #### [facility] [address] [place] [address] Jatin KarenPotassium [Moles/Vol]4.1 mmol/LNormal3.4-5.0The [facility] Comment on above:Performed By: #### CMP #### [facility] [address] [place] [address] Jatin KarenProtein [Mass/Vol]7.6 g/dLNormal6.1-8.2[facility] HospitalComment on above:Performed By: #### CMP #### [facility] [address] [place] [address] Jatin KarenSodium [Moles/Vol]142 mmol/VOqghqk231-131Zzn [facility] Comment on above:Performed By: #### CMP #### [facility] [address] [place] [address] Jatin KarenUrea nitrogen [Mass/Vol]14.0 mg/dLNormal6.4-19.3The [facility] CenterComment on above:Performed By: #### CMP #### [facility] [address] [place] [address] Jatin KarenUrea nitrogen/Creatinine [Mass ratio]18.4 mg/mgNormalThe [facility] HospitalComment on above:Performed By: #### CMP #### [facility] [address] [place], [place] [id number] Jatin VergaraenPROTIMEon 50-20-2727HRR Coag (PPP) [Relative time]1.00 {INR}Normal The [facility] CenterComment on above:Performed By: #### PTT, PT #### [facility] [address] [place], [place] [address] Jatin KarenINR GUIDELINESSEE BELOWTrumbull Regional Medical CenterComment on above: Result Comment: DESIRED INR: 2.0 - 3.0 CONDITIONS NOT LISTED BELOW 2.5 - 3.5 FOR PROSTHETIC HEART VALVE REPLACEMENT 2.5 - 3.5 RECURRENT THROMBOSISPerformed By: #### PTT, PT #### [facility] [address] [place] [address] Jatin KarenPT Coag (PPP) [Time]10.8 sNormal9.0-11.6The [facility] CenterComment on above:Performed By: #### PTT, PT #### [facility] [address] [place], [place] [address] Jatin WebbPTTon 65-09-4164sKKN Coag (Bld) [Time]26.2 iEppfdx67.3-36.2The [facility] CenterComment on above:Performed By: #### PTT, PT #### [facility] [address] [place], [place] [id number] Jatin KarenXR CHEST 1 Von 59-27-6261NZ CHEST 1 VEXAM: XR CHEST 1 V HISTORY: Chest pain left-sided rib pain COMPARISON: None. TECHNIQUE: Single frontal view chest x-ray FINDINGS: No lobar consolidation, large effusions, pneumothorax, or discrete acute bony abnormality. Cardiac size unremarkable. IMPRESSION: No radiographic evidence for acute chest abnormality. Electronically authenticated by: ODALIS BRICENO Date: 2020-12-12 03:25[facility] Vital Signs Date TimeVital SignValuePerforming VxvdwfqhzVdukbecx40-58-7549 11:13-0500Body mass index (BMI) [Ratio]41.56 kg/v4Wtsav Alia DO Work Phone: [facility]Kpdsyocbyn84-91-4538 11:13-0500Body hzatil735.83 kgCorey Alia DO Work Phone: [facility]habYwimgzagln38-09-9144 11:13-0500Diastolic blood hrkywhpf03 mm[Hg]Shaw Alia DO Work Phone: [facility] RehabGcpaukvyxp91-67-3681 11:13-0500Systolic blood yxbdhonp134 mm[Hg]Shawdaivd Galeanoo DO Work Phone: [facility] RehabVrvziotcdp23-28-7342 11:18-0400Body mass index (BMI) [Ratio]42.47 kg/e3YbvhzSt. [facility]10-03-2025 11:18-0400Body weight [address] [address]-03-2025 11:18-0400Diastolic blood mm[Hg][facility]10-03-2025 11:18-0400Systolic blood wbbxpzli290 mm[Hg][facility]09-29-2025 16:04-0400Body mass index (BMI) [Ratio] 42.91 kg/c8Bymfj Aysha VIDEOTAPE OPERATOR Work Phone: [facility] RehabBpaowppnqp71-83-3705 16:04-0400Body fcubmy686.4 kgshasha Acuñakvng VIDEOTAPE OPERATOR Work Phone: [facility] RehabFhuzbbtyhh96-25-7933 16:04-0400Diastolic blood mm[Hg]Silva Aysha VIDEOTAPE OPERATOR Work Phone: [address] [address]Rzmrmwykkj59-59-5299 16:04-0400Heart rate95 /min Silva Aysha VIDEOTAPE OPERATOR Work Phone: [address] [address]Atnmjhdzot52-54-5856 16:04-4259ZwW9% (BldA) [Mass fraction]99 %Silva Olmstead VIDEOTAPE OPERATOR Work Phone: [address] [address]Embwkczglr31-62-8672 16:04-0400Systolic blood leuojfxu173 mm[Hg]Silva Olmstead VIDEOTAPE OPERATOR Work Phone: [facility]habMtsszzonbv19-19-8504 12:59-0400Body qvqjys017.6 cmJeannie Soni MD Work Phone: [facility] RehabZnibdwxeuf70-42-8384 12:59-0400Body mass index (BMI) [Ratio]40.51 kg/m9IimznrgxJeannie Soni MD Work Phone: [facility] RehabQkxmlcooik76-80-8142 12:59-0400Body bieypi701.05 kgJeannie Soni MD Work Phone: [facility]habKycvbvmktp54-97-1648 12:59-0400Diastolic blood ccsnshag38 mm[Hg]Jeannie Soni MD Work Phone: [facility] RehabHgpwibwtfr04-84-1418 12:59-0400Heart ytdi916 /min Jeannie Soni MD Work Phone: [facility] RehabTeasnxpput43-55-7153 12:59-4353IyU5% (BldA) [Mass fraction]97 %Jeannie Soni MD Work Phone: [facility] RehabXlqtmoitox25-77-8317 12:59-0400Systolic blood uufprnyk133 mm[Hg]Jeannie Soni MD Work Phone: [facility] RehabHweifriycm25-33-4631 13:42-0500Body mass index (BMI) [Ratio]38.62 kg/m2Yaritza CAMARILLO Work Phone: [facility] RehabJcxwmuaxew70-07-9958 13:42-0500Body clvrez206.06 kgYaritza CAMARILLO Work Phone: [facility] RehabMznundrtyz92-43-8878 14:20-0500Body ylcwjn073.6 Patricia Olmstead VIDEOTAPE OPERATOR Work Phone: [facility] RehabApczhbohgw48-94-3953 14:20-0500Body mass index (BMI) [Ratio]38.28 kg/d0CblznSilva Olmstead VIDEOTAPE OPERATOR Work Phone: [facility] RehabLhxzilhagz58-95-7242 14:20-0500Body pzyavz322.15 kgSilva Olmstead VIDEOTAPE OPERATOR Work Phone: [facility] RehabLzlhbrqbzg44-21-1149 14:20-0500Diastolic blood ssemzwle14 mm[Hg]Silva Olmstead VIDEOTAPE OPERATOR Work Phone: [facility] RehabFpgrfycdnf83-73-5193 14:20-0500Heart tfaq774 /min Silva Olmstead VIDEOTAPE OPERATOR Work Phone: [facility] RehabOkiwzuqocz51-54-5146 14:20-7242UvT5% (BldA) [Mass fraction]98 %Silva Olmstead VIDEOTAPE OPERATOR Work Phone: [facility] RehabPjsrnffftj66-77-5468 14:20-0500Systolic blood saywstzm352 mm[Hg]Silva Olmstead VIDEOTAPE OPERATOR Work Phone: [facility]habNvmxcbjdlp32-96-1579 11:36-0500Body mass index (BMI) [Ratio]41.9 kg/e8Lxzao Alia DO Work Phone: [facility] RehabWfkcwlzzqr35-45-1837 11:36-0500Body czisyt349.73 kgCorey Alia DO Work Phone: [facility] RehabCxsbmqvrtk58-65-2324 11:36-0500Diastolic blood rxszvvyi16 mm[Hg]Shaw Galeanoo DO Work Phone: [facility] RehabTssxtgjmsd66-51-5386 11:36-0500Systolic blood hmxioemc615 mm[Hg]Shaw Galeanoo DO Work Phone: [facility] RehabIbbwprczdr49-87-0934 13:49-0500Body mass index (BMI) [Ratio]41.5 kg/m2Yaritza CAMARILLO Work Phone: [facility] RehabWugvjgvovb32-07-0704 13:49-0500Body .68 kgYaritza CAMARILLO Work Phone: [facility] RehabHafouflytq93-21-3310 13:49-0500Diastolic blood zxkjkqoz41 mm[Hg]Yaritza CAMARILLO Work Phone: [address] [address]Ymcxwccbgv90-49-2274 13:49-0500Systolic blood fllcntki033 mm[Hg]Yaritza CAMARILLO Work Phone: [facility] RehabTifwvxpclv26-51-6958 14:14-0500Body mass index (BMI) [Ratio]41.5 kg/a1Knwxt Alia DO Work Phone: 1([phone] [place], [place] [address]Bfdbromnme84-41-4396 14:14-0500Body bvtubd875.68 kgCorey Alia DO Work Phone: 1(525)152-[address] [place], [place] [address]Azmkyyymzj18-74-5589 14:14-0500Diastolic blood xdoairdk64 mm[Hg]Shaw Alia DO Work Phone: 1(561)928-[address] [place], [place] [address]Ehcpuaxhvy37-26-9898 14:14-0500Systolic blood wteegeyh169 mm[Hg]Shaw Alia DO Work Phone: 1(684)[facility] [place], [place] [address]Seherfqkbt05-95-7748 11:04-0500Body mass index (BMI) [Ratio]41.33 kg/m2Amy Wendy PA Work Phone: 1(557)[facility] [place], [place] [address]Hyiubxclsk59-15-5512 11:04-0500Body hobjqy549.23 kgAmy Wendy PA Work Phone: 1(334)[facility] [place], [place] [address]Abheykknwt19-72-0035 11:04-0500Diastolic blood pkcicczq95 mm[Hg]Yaritza Wendy PA Work Phone: 1(165)[facility] [place], [place] [address]Hafdspzygw97-72-7610 11:04-0500Systolic blood dkbcslfi520 mm[Hg]Yaritza Portillo PA Work Phone: 1(384)[facility] [place], [place] [address]Jchlxldkao14-38-9090 11:32-0500Body mass index (BMI) [Ratio]40.92 kg/a5Exovy Alia DO Work Phone: 1(882)[address] [place] [address]-14-2024 11:32-0500Body rmibdv825.14 kgCorey Alia DO Work Phone: 1(016)[address] [place] [address]-14-2024 11:32-0500Diastolic blood hnwdufhy23 mm[Hg]Shaw Alia DO Work Phone: 1(867)[facility] [place] [address]-14-2024 11:32-0500Systolic blood otlvrgpp041 mm[Hg]Shaw Alia DO Work Phone: 1(719)667-[address] [place], [place] [address]Oxqwilpsnz30-05-0654 13:55-0400Body mass index (BMI) [Ratio]40.51 kg/m2Amy Spearfish PA Work Phone: [phone])788-[address] [place], [place] [address]Uomxqkcfqu50-59-3406 13:55-0400Body embrge449.05 kgAmy Spearfish PA Work Phone: 1(240)394-[address] [place], [place] [address]Dxillotunz46-86-5917 13:55-0400Diastolic blood weklenrd29 mm[Hg]Yaritza Wendy PA Work Phone: 1(082)[facility] [place] [address]-31-2024 13:55-0400Systolic blood ezqyaaqs136 mm[Hg]Yaritza Portillo PA Work Phone: 1(656)[address] [place], [place] [address]-15-2024 10:54-0400Body mass index (BMI) [Ratio]39.95 kg/m2Amy Wendy PA Work Phone: 1(566)[facility] [place], [place] [address]Kcfvorlnwb08-70-5280 10:54-0400Body dxvakl192.58 kgYaritza Melendrezey PA Work Phone: 1(214)[facility] [place], [place] [address]Cuanbubrxd50-59-4325 10:54-0400Diastolic blood pvuzzkqb40 mm[Hg]Yaritza Wendy PA Work Phone: 1(431)[facility] [place], [place] [address]Zsqkxsiqnl48-15-9286 10:54-0400Systolic blood uwoqfhmk380 mm[Hg]Yaritza Wendy PA Work Phone: 1(035)[facility] [place], [place] [address]Obedsovnkp14-63-7074 12:00-0400Body mass index (BMI) [Ratio]38.59 kg/m2Fqssq Alia DO Work Phone: 1(485)[facility] [place], [place] [address]Cjzwgjkbnp05-50-9759 12:00-0400Body kskerw846.97 kgCorey Alia DO Work Phone: 1(257)[facility] [place], [place] [address]Sxpkfptsdr94-68-5718 12:00-0400Diastolic blood mm[Hg]Shaw Alia DO Work Phone: 1(469)[facility] [place], [place] [address]Qgdislhhry38-85-1815 12:00-0400Systolic blood sunydyrp557 mm[Hg]Shaw Alia DO Work Phone: 1(044)[address] [place], [place] [address]-21-2024 11:24-0400Body mass index (BMI) [Ratio]37.61 kg/m2Yaritza Wendy CAMARILLO Work Phone: [facility]OS[facility]–SmithvilleVxwwkxgknr24-57-5257 11:24-0400Body kbcaoj53.39 kgYaritza Melendrezmarissa CAMARILLO Work Phone: NOS[facility]–SmithvillePztkiczcug20-42-6113 11:24-0400Diastolic blood lcaverjx17 mm[Hg]Yaritza CAMARILLO Work Phone: NOSaint [facility]–SmithvillePshrattage03-92-5086 11:24-0400Systolic blood hdgvvepn919 mm[Hg]Yaritza Melendrezmarissa CAMARILLO Work Phone: [facility] Encounters Encounter DateEncounter TypeCare ProviderFacilityStart: 02-27-2025 End: 98-15-5189Rrehze flowsheetCorey Alia DO Work Phone: noMS [facility]ffanie OBGYNStart: 02-27-2025 End: 36-20-0134Xuouzd flowsheetCorey Alia DO Work Phone: [facility] [place] OBGYNStart: 02-27-2025 End: 72-32-5096Gywqrymkr Result EncounterCorey Alia DO Work Phone: noms External Department UnsolicitedStart: 02-27-2025 End: 74-58-5364tmycclnllrNFBQK FAZIONot AvailableStart: 02-27-2025 End: 53-53-0170Ytymxsrk flow sheetCorey Alia DO Work Phone: noMS [place] OBGYNComment on above:Nausea and vomiting during (HHS-HCC) (Primary Dx); Second trimester (HHS-HCC); 13 weeks gestation of (HHS-HCC)Start: 66-14-1108yxlqpeikpkORAIA R FAZIOProMedica New York HospitalStart: 01-25-2025 End: 70-35-6443Viqmpgjuy Result EncounterCorey Alia DO Work Phone: noms External Department UnsolicitedStart: 01-25-2025 End: 06-17-3846Bcomregoa Result EncounterCorey Alia DO Work Phone: noms External Department UnsolicitedStart: 01-25-2025 End: 23-84-5567dveaetpeehQSSQB KAMPFERNot AvailableStart: 01-25-2025 End: 33-96-1989Xqmvgq outpatient new 10 minutesFazio Nurse [facility] Bcp ObNOMS [place] OBGYNComment on above:GA: 9k0wLagvb: 01-21-2025 End: 73-78-7595oiqckhfbzoGAVBS KAMPFERNot AvailableStart: 01-21-2025 End: 90-43-6911Cdpzuy outpatient visit 15 Hannah Olmstead NP Work Phone: noMS [facility] MedicineComment on above: Gastroesophageal reflux disease without esophagitis (Primary Dx)Start: 01-21-2025 End: 60-67-1614Ounaxt Jerri Olmstead NP Work Phone: [facility] MedicineStart: 01-21-2025 End: 04-15-4323Rafedf Jerri Olmstead VIDEOTAPE OPERATOR Work Phone: noMS [facility] MedicineStart: 07-28-2024 End: 51-84-6837Mokpwjrcq department patient visitLEAH Lora DOEKerbs Memorial HospitalMedica [facility]ville Developmental Centertart: 07-24-2024 End: 69-14-7182Dieqna Elida Soni MD Work Phone: noms FNR FMStart: 07-24-2024 End: 64-29-0959Urayhl Elida Soni MD Work Phone: noms FNR FMStart: 07-24-2024 End: 22-19-7841Cntpmi outpatient visit 15 minutesJeannie Soni MD Work Phone: noms FNR FMComment on above:Acute midline low back pain without sciatica (Primary Dx)Start: 07-24-2024 End: 02-49-1433ufqghhatgjESVPIWRV HOHMANNot AvailableStart: 07-18-2024 End: 85-38-4447nkgsbkanuxFGZLY KAMPFERNot AvailableStart: 06-27-2024 End: 84-85-6481Nowbnxalp encounterJeannie Soni MD Work Phone: noms FNR FMStart: 06-13-2024 End: 86-11-5583cfzvrkhvykRJB RAMEYNot AvailableStart: 06-13-2024 End: 38-36-8014Feucfsspsk care visitYaritza CAMARILLO Work Phone: NOHY BCP OBComment on above:Uses control (Primary Dx); 6 weeks follow-upStart: 05-30-2024 End: 28-37-7613Gwqskp outpatient visit 25 minutesSashasha Olmstead NP Work Phone: noms FNR FMComment on above:Blurred vision (Primary Dx); Transient visual loss of both eyes; Acute left-sided low back pain with left-sided sciatica; Viral gastroenteritisStart: 05-30-2024 End: 95-51-4408ouxhkqobvuJXTOE KAMPFERNot AvailableStart: 05-30-2024 End: 16-71-8316Rrsttr Jerri Olmstead VIDEOTAPE OPERATOR Work Phone: noms FNR FMStart: 05-30-2024 End: 86-20-9852Teaznm Jerri Olmstead VIDEOTAPE OPERATOR Work Phone: NOJA FNR FMStart: 05-25-2024 End: 79-74-9746Ubrotowqt encounterNgozi Ledezma LPN Work Phone: NOTM BCP OBStart: 04-28-2024 End: 84-90-9112Whxmjpign Result EncounterCorey Alia DO Work Phone: [facility] External Department UnsolicitedStart: 04-28-2024 End: 75-46-6924Syooxlvqn Result EncounterCorey Alia DO Work Phone: noms External Department UnsolicitedStart: 04-26-2024 End: 75-99-5139Sxtisqctf Result EncounterGeneric External Data ProviderNOMS External Department UnsolicitedStart: 04-26-2024 End: 71-37-3027Lgstshmkp Result EncounterGeneric External Data ProviderNOMS External Department UnsolicitedStart: 04-19-2024 End: 08-06-6319Grmsut flowsheetCorey Alia DO Work Phone: NOMS BCP OBStart: 04-19-2024 End: 18-88-0345Gfhzmi flowsheetCorey Alia DO Work Phone: NOMS BCP OBStart: 04-19-2024 End: 85-13-3070Nmzhktni flow sheetCorey Alia DO Work Phone: NOMS BCP OBComment on above:38 weeks gestation of ; Third trimester ; Excessive growth affecting management of , antepartum, single or unspecified fetusStart: 04-19-2024 End: 54-32-6711npdikiwjxqODVJB FAZIONot AvailableStart: 04-14-2024 End: 26-05-7416Dducbwcnr Result EncounterGeneric External Data ProviderNOMS External Department UnsolicitedStart: 04-14-2024 End: 12-33-6694Etzbmhrmj Result EncounterGeneric External Data ProviderNOMS External Department UnsolicitedStart: 04-11-2024 End: 47-69-7465Vucehi flowsheetYaritza CAMARILLO Work Phone: NOMS BCP OBStart: 04-11-2024 End: 42-89-0473Wqkrdf flowsheetAmy Wendy CAMARILLO Work Phone: NOMS BCP OBStart: 04-11-2024 End: 83-21-5496Rmihnnqqg Result EncounterCorey Alia DO Work Phone: noMS External Department UnsolicitedStart: 04-11-2024 End: 24-45-4948nixeysouwhVQZ Nakia AvailableStart: 04-11-2024 End: 47-36-6757Pdrdvvdj flow sheetYaritza CAMARILLO Work Phone: noMS BCP OBComment on above:37 weeks gestation of ; Third trimester ; Excessive growth affecting management of in third trimester, single or unspecified fetusStart: 04-04-2024 End: 07-38-6633Aiqyao flowsheetCorey Alia DO Work Phone: noms [facility] OBStart: 04-04-2024 End: 32-99-4597Clfqqf flowsheetCorey Alia DO Work Phone: noMS [facility] OBStart: 04-04-2024 End: 16-21-6255Xenyaazoc Result EncounterGeneric External Data ProviderNOIN External Department UnsolicitedStart: 04-04-2024 End: 32-97-5841Rdxoxfyn flow sheetCorey Alia DO Work Phone: noMS [facility] OBComment on above:Third trimester ; 36 weeks gestation of ; Upper respiratory tract infection, unspecified type; Heartburn during in third trimesterStart: 04-04-2024 End: 04-79-9435mgnivhmvnrMCLFG FAZIONot AvailableStart: 03-26-2024 End: 31-32-7734Mboktt flowsheetYaritza CAMARILLO Work Phone: NOHK [facility] OBStart: 03-26-2024 End: 03-98-9982Lmjrdg flowsheetYaritza CAMARILLO Work Phone: noms [facility] OBStart: 03-26-2024 End: 14-19-1572rpnbvmvnkxXFH Nakia AvailableStart: 03-26-2024 End: 93-95-2311Pjoawavj flow sheetYaritza CAMARILLO Work Phone: NOMS [facility] OBComment on above:Dyspepsia (Primary Dx); Third trimester ; 35 weeks gestation of pregnancyStart: 03-15-2024 End: 52-52-5874Obxkqgeig Result EncounterCorey Alia DO Work Phone: noMS External Department UnsolicitedStart: 03-15-2024 End: 89-88-9998Jmnihkbnz Result EncounterCorey Alia DO Work Phone: noMS External Department UnsolicitedStart: 03-08-2024 End: 00-68-7638Krmtzc flowsheetCorey Alia DO Work Phone: NOUR BCP OBStart: 03-08-2024 End: 82-59-6855Zlyhoi flowsheetCorey Alia DO Work Phone: NONF BCP OBStart: 03-08-2024 End: 89-49-0749hdujomwpuqFUFQZ FAZIONot AvailableStart: 03-08-2024 End: 58-94-0442Jajyefck flow sheetCorey Alia DO Work Phone: NOMS BCP OBComment on above:32 weeks gestation of ; Third trimester ; Gastroesophageal reflux in ; Nausea/vomiting in ; Hematuria, unspecified typeStart: 02-24-2024 End: 20-87-5666Colrkmbtz Result EncounterCorey Alia DO Work Phone: NOAU External Department UnsolicitedStart: 02-24-2024 End: 58-40-9358Pqnrhjgid Result EncounterCorey Alia DO Work Phone: NOMS External Department UnsolicitedStart: 02-23-2024 End: 51-08-2311Lhfswj Foster CAMARILLO Work Phone: NOMS BCP OBStart: 02-23-2024 End: 04-91-2492Dgkqiq salvadorheetYaritza CAMARILLO Work Phone: NOMS BCP OBStart: 02-23-2024 End: 14-43-1129Ocgiemki flow sheetYaritza CAMARILLO Work Phone: NOMS BCP OBComment on above:Third trimester ; 30 weeks gestation of pregnancyStart: 02-07-2024 End: 15-30-0304Trnbij Foster CAMARILLO Work Phone: NOMS BCP OBStart: 02-07-2024 End: 41-28-4817Qupasm Foster CAMARILLO Work Phone: NOMS BCP OBStart: 02-07-2024 End: 79-61-0713Mgwyynsz flow sheetYaritza CAMARILLO Work Phone: noms [facility] OBComment on above:Second trimester ; 28 weeks gestation of ; Heartburn during in third trimester; Skin yeast infection; Excessive growth affecting management of , antepartum, single or unspecified fetusStart: 02-06-2024 End: 63-37-0472Mdipqnxho Result EncounterGeneric External Data ProviderNOMS External Department UnsolicitedStart: 02-06-2024 End: 72-98-5865Kcmviqiqs Result EncounterGeneric External Data ProviderNOMS External Department UnsolicitedStart: 01-12-2024 End: 41-86-2382Czesqt flowsheetCorey Alia DO Work Phone: noms [facility] OBStart: 01-12-2024 End: 70-58-0475Eojdoc flowsheetCorey Alia DO Work Phone: noms [facility] OBStart: 01-12-2024 End: 66-46-9445Cldrwcer flow sheetCorey Alia DO Work Phone: noms [facility] OBComment on above:24 weeks gestation of ; Diabetes mellitus screening; UTI symptomsStart: 12-16-2023 End: 68-33-7852Thpbvonlz Result EncounterGeneric External Data ProviderNOMS External Department UnsolicitedStart: 12-16-2023 End: 86-25-3662Wujpiynvm Result EncounterGeneric External Data ProviderNOMS External Department UnsolicitedStart: 12-14-2023 End: 95-05-8185Ybvdiu Foster CAMARILLO Work Phone: noms [facility] OBStart: 12-14-2023 End: 37-94-4257Bfchguyzo Result EncounterGeneric External Data ProviderNOMS External Department UnsolicitedStart: 12-14-2023 End: 09-66-6811Itdsakcz Result Jaqueline CAMARILLO Work Phone: noms External Department UnsolicitedStart: 12-14-2023 End: 17-83-0225Goijwiwh Result Jaqueline CAMARILLO Work Phone: noms External Department UnsolicitedStart: 12-14-2023 End: 19-98-9344Ugmdwl outpatient visit 15 minutesAmy Wnedy CAMARILLO Work Phone: NOIN BCP OBComment on above:20 weeks gestation of ; Well woman exam with routine gynecological exam; Screening, , for anatomic survey; STD exposure; Vaginal discharge; Nausea/vomiting in ; Gastroesophageal reflux in ; Nonintractable headache, unspecified chronicity pattern, unspecified headache type; Constipation, unspecified constipation typeStart: 12-14-2023 End: 89-90-3033Ekfkmou encounter procedureAmy Wendy CAMARILLO Work Phone: NOIN HealthcareStart: 10-06-2023 End: 82-72-0095hcjwvqfvdlXPKUD R FAZIOFacility:[facility] HospitalStart: 04-22-2023 End: 63-68-6243zwxzolsbivFuid F BowerFacility:[facility] HospitalStart: 01-10-2023 End: 68-56-2226hdgjbngqhlUchw F BowerFacility:[facility] HospitalStart: 12-11-2022 ambulatoryMary F BowerFacility:[facility] HospitalStart: 11-29-2022 End: 44-66-4517pgkslnxfyyCgwo F BowerFacility:[facility] HospitalStart: 11-17-2022 End: 73-90-9396rmcfxccgwuUBWVO R FAZIOFacility:[facility] HospitalStart: 10-18-2022 End: 54-56-8053nqnkqtekhkUekp F BowerFacility:[facility] HospitalStart: 12-12-2020 End: 22-41-2141rxjxwjbqsfKF BRANDON R SMITHFacility:H1 Procedures DateProcedureProcedure DetailPerforming ClinicianStart: 89-98-4297Hbykx dip stick/tablet rgnt non-auto w/o micrscpCorey Alia DO Work Phone: Start: 41-22-0841VEL TESTCorey Alia DO Work Phone: Start: 10-92-8239JV OB TRANSVAGINALCorey Alia DO Work Phone: Start: 31-57-0979ZPQ CBC WITH AUTO DIFFCorey Alia DO Work Phone: Start: 15-07-4404BNXM CBC WITH PLATELET NO DIFFERENTIALCorey Alia DO Work Phone: Start: 21-64-1019GBH DRUG SCREEN RAPID (URINE)Shaw Alia DO Work Phone: Start: 55-00-5638QM OB BPP W NON-STRESSGeneric External Data ProviderStart: 52-64-8465Kfcoz dip stick/tablet rgnt non-auto w/o micrscpCorey Alia DO Work Phone: Start: 54-04-3275QJ OB GROWTHGeneric External Data ProviderStart: 28-20-7222LV OB BPP W NON-STRESSCorey Alia DO Work Phone: Start: 75-12-2750Kjyzp dip stick/tablet rgnt non-auto w/o micrscpAmy Wendy CAMARILLO Work Phone: Start: 92-77-2489Nrvao dip stick/tablet rgnt non-auto w/o micrscpCorey Alia DO Work Phone: Start: 75-13-7143JDH MISCELLANEOUS TESTCorey Alia DO Work Phone: Start: 52-88-7220Lhyah dip stick/tablet rgnt non-auto w/o micrscpAmy Wendy CAMARILLO Work Phone: Start: 98-55-0762BH OB BPP W NON-STRESSCorey Alia DO Work Phone: Start: 66-09-9088Wkiaacat identified in Urine by CultureGeneric External Data ProviderStart: 30-02-1514WZX UA (CLEAN/CATCH) LOCK MAINTENANCE SUPERVISOR/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Shaw Alia DO Work Phone: Start: 91-00-0353Iyawv dip stick/tablet rgnt non-auto w/o micrscpCorey Alia DO Work Phone: Start: 63-99-6983XB OB GROWTHCorey Alia DO Work Phone: Start: 60-89-5014Tzdrn dip stick/tablet rgnt non-auto w/o micrscpAmy Wendy CAMARILLO Work Phone: Start: 22-68-3710Hsurr dip stick/tablet rgnt non-auto w/o micrscpAmy Wendy CAMARILLO Work Phone: Start: 89-26-3945IPOCSHX 1 HOURCorey Alia DO Work Phone: Start: 26-73-9039Zcjap dip stick/tablet rgnt non-auto w/o micrscpCorey Alia DO Work Phone: Start: 73-03-3395VQ OB ANATOMYGeneric External Data ProviderStart: 31-41-4999FF OB CERVICAL LENGTHGeneric External Data Provider Start: 67-78-0894NVC, SERUM, OPEN SPINA BIFIDACorey Alia DO Work Phone: Start: 91-54-0691CEYQCKOZWN/DISCHARGE PLUS VAGINITIS (HTRX)Yaritza CAMARILLO Work Phone: Start: 39-33-3337Kueys dip stick/tablet rgnt non-auto w/o micrscpAgabrielle CAMARILLO Work Phone: Start: 43-19-7606Vrdn cerv/vag auto thin layer prep mnl screenCorey Alia DO Work Phone: Plan of Treatment DateCare ActivityDetailAuthorStart: 03-28-2025 End: 64-52-5346Pbjozii encounter /04/2025 2:30 PM EST Routine KELECHI HAYES [address] [place], [id number] Yaritza Portillo PA [address] [place] [address] KELECHI Brisenort: 02-27-2025 End: 78-82-8861Quzpcyb encounter mqzkguakd33/05/2025 10:50 AM EST Routine N[facility]S Steffanie HAYES [address] [place] [phone] Shwa Rojo DO [address] [place] [address] NOMS Steffanie OBGYNStart: 01-25-2025 End: 42-98-7861HZK/RhABO/Rh Lab Routine Missed menses , unspecified gestational age ([facility]) Expected: 01/25/2025 (Approximate), Expires: 01/25/2026NOIN HealthcareComment on above:Expected: 01/25/2025 (Approximate), Expires: 01/25/2026Start: 01-25-2025 End: 94-17-6886Oceos type and Indirect antibody screen panel - BloodType and screen Lab Routine Missed menses , unspecified gestational age ([facility]) Expected: 01/25/2025 (Approximate), Expires: 01/25/2026[facility] Healthcare Comment on above:Expected: 01/25/2025 (Approximate), Expires: 01/25/2026Start: 01-25-2025 End: 28-33-0169Ggxfk of abuse panel - Urine by Screen methodRapid drug screen, urine Lab Routine , unspecified gestational age ([facility]) Encounter for supervision of normal first in first trimester ([facility]) Expected: 01/25/2025 (Approximate), Expires: 01/25/2026NOIN HealthcareComment on above: Expected: 01/25/2025 (Approximate), Expires: 01/25/2026Start: 01-25-2025 End: 56-45-9767bpafbgdsrf09/03/2025 10:00 AM EDT Initial [facility] Steffanie HAYES [address] [place] [phone] NOMS Steffanie OBGYNStart: 01-25-2025 End: 92-94-1039Pecmbhxgkmwq / ancillary services nkvngxldei31/03/2025 9:30 AM EDT Ancillary Procedure [facility] Steffanie OBGYN [address] [place] [address] NOMS Steffanie OBGYNStart: 01-18-2025 End: 57-03-1134YN Pelvis transvaginalUS OB transvaginal Imaging Routine Missed menses Positive urine test ([facility]) Expected: 01/18/2025, Expires: 04/19/2025[facility] Work Phone: comment on above:Expected: 01/18/2025, Expires: 04/19/2025Start: 65-02-0741CZOMA-19 Vaccine ( season)COVID-19 Vaccine ( season)NOMS HealthcareStart: 81-70-6125Vvjgqanwf vaccinationNOIN HealthcareStart: 07-24-2024 End: 87-72-6495PP Lumbar spine Views W flexion and W extensionXR lumbar spine 4+ views w flexion extension Imaging Routine Acute midline low back pain without sciatica Expected: 07/24/2024, Expires: 07/24/2025[facility] Work Phone: Comment on above:Expected: 07/24/2024, Expires: 07/24/2025Start: 07-24-2024 End: 90-55-6654Wjkeris encounter wornvsshp00/01/2025 1:00 PM EDT Office Visit [facility] [address] [place] [address] Jeannie Soni MD [address] [place], [place] [id number] [facility] FNR FMComment on above:ArrivedStart: 06-13-2024 End: 91-53-1361hdtowcalbw97/19/2025 1:20 PM EST Visit [facility]CP OB [address] [place] [address] Yaritza Portillo PA [address] [place] [address] NOMS BCP OBStart: 05-30-2024 End: 30-35-4834Crxzxkf encounter procedureNOMS FNR FMComment on above:Arrived Start: 05-30-2024 End: 46-68-1397MV Head WO contrastCT head wo IV contrast Imaging High Priority Blurred vision Transient visual loss of both eyes Expected: 05/30/2024, Expires: 05/30/2025[facility] Work Phone: Comment on above:Expected: 05/30/2024, Expires: 05/30/2025Start: 04-19-2024 End: 67-04-8648QU biophysical profile w non stress testUS biophysical profile w non stress test Imaging Routine Excessive growth affecting management of , antepartum, single or unspecified fetus Expected: 04/19/2024 (Approximate), Expires: 04/19/2025[facility] Work Phone: comment on above:Expected: 04/19/2024 (Approximate), Expires: 04/19/2025Start: 04-19-2024 End: 40-63-1798Dyegnag encounter procedureNOMS BCP OBComment on above:Arrived Start: 04-11-2024 End: 27-57-4024YZ for pregnancyUS OB SCAN FOR GROWTH Imaging Routine Excessive growth affecting management of in third trimester, single or unspecified fetus Expected: 04/11/2024 (Approximate), Expires: 2024[facility] Work Phone: comment on above:Expected: 04/11/2024 (Approximate), Expires: 04/11/2025Start: 04-11-2024 End: 94-63-3208Wywjguw encounter /18/2024 1:20 PM EST Routine [facility] OB [address] [place] [phone] Yaritza Portillo PA [address] [place] [address] NOMS BCP OBStart: 04-04-2024 End: 30-41-2852MZVQVHW, GROUP B STREP WITH SUSCEPTIBLITYCULTURE, GROUP B STREP WITH SUSCEPTIBLITY Lab Routine Third trimester Expected: 04/04/2024, Expires: 04/04/2025[facility] Work Phone: comment on above:Expected: 04/04/2024, Expires: 04/04/2025Start: 04-04-2024 End: 80-87-9480Fjodukg encounter jbwelcfli97/11/2024 1:30 PM EST Routine [facility] [address] [place] [phone] Shaw Rojo, DO [address] [place], [place] [id number] ArrivedNOIN BCP OBComment on above: ArrivedStart: 03-26-2024 End: 74-67-7872Jyvcdzb encounter qcdeqyzua08/02/2024 10:20 AM EST Routine [facility] [address] [facility] [facility] [place] [address] Yaritza Portillo, PA [address] [place] [address] [place], [place] [id number] NOMS BCP OBStart: 03-08-2024 End: 01-52-0692Eyqwwki encounter ibdrlxqqx48/14/2024 11:00 AM EST Routine [facility] [address] [facility] [facility] [place] [phone] Shaw Rojo, DO [address] [place] [address] NOMS BCP OBStart: 02-23-2024 End: 31-75-3452Wyxziix encounter mfegsezkj00/31/2024 1:30 PM EDT Routine [facility] [address] [facility] [facility] [place] [address] Yaritza Portillo, PA [address] [place] [address] NOMS BCP OBStart: 02-08-2024 End: 27-68-5847Mfcnkmj encounter ohepmbybm87/16/2024 1:50 PM EDT Routine [facility] OB [address] [place] [phone] Yaritza Portillo PA [address] [place], [place] [phone] NOMS BCP OBStart: 02-07-2024 End: 28-32-2626QY for pregnancyUS OB SCAN FOR GROWTH Imaging Routine Excessive growth affecting management of , antepartum, single or unspecified fetus Expected: 02/07/2024 (Approximate), Expires: 02/06/2025[facility] Work Phone: comment on above:Expected: 02/07/2024 (Approximate), Expires: 02/06/2025Start: 01-12-2024 End: 73-76-7232ETB panel - Blood by Automated countCBC Lab Routine Diabetes mellitus screening Expected: 01/12/2024 (Approximate), Expires: 01/11/2025[facility] Work Phone: comment on above:Expected: 01/12/2024 (Approximate), Expires: 01/11/2025Start: 01-12-2024 End: 43-96-2730Vbxcltakbby of glucose 1 hour after glucose challenge for glucose tolerance testGlucose tolerance, 1 hour Lab Routine Diabetes mellitus screening Expected: 01/12/2024 (Approximate), Expires: 01/11/2025[facility] HealthcareComment on above:Expected: 01/12/2024 (Approximate), Expires: 01/11/2025Start: 01-12-2024 End: 94-28-2655Dtbnynb encounter hwafkjqap21/19/2024 11:50 AM EDT Routine [facility] OB [address] [address] Shaw Rojo DO [address] [place] [address] NOMS BCP OBStart: 10-06-1214Nlokwkasb vaccinationInfluenza Vaccine (#1)NOMS HealthcareStart: 12-14-2023 End: 79-76-9164Plblu fetoprotein, maternalAlpha fetoprotein, maternal Lab Routine 20 weeks gestation of Expected: 12/14/2023 (Approximate), Expires: 02/13/2024NOIN HealthcareComment on above:Expected: 12/14/2023 (Approximate), Expires: 02/13/2024Start: 12-14-2023 End: 70-25-3054OM for pregnancyUS OB ANATOMY SINGLE W US OB CERVICAL LENGTH Imaging Routine Screening, , for anatomic survey Expected: 12/14/2023 (Approximate), Expires: 12/13/2024NOIN HealthcareComment on above: Expected: 12/14/2023 (Approximate), Expires: 12/13/2024Start: 12-14-2023 End: 61-30-9736Nehhrml encounter oqfmxylrc14/21/2024 11:00 AM EDT Office Visit [facility] OB [address] [phone] Yaritza Portillo PA [address] [place] [address] [facility]rivedNOSANT[facility] OBComment on above:ArrivedBacteria identified in Urine by CultureUrine culture Microbiology Routine Hematuria, unspecified type Ordered: 03/08/2024[facility] Healthcare Work Phone: comment on above:Ordered: 03/08/2024acteria identified in Urine by CultureUrine culture Microbiology Routine Missed menses Ordered: 01/25/2025[facility] HealthcareComment on above:Ordered: 01/25/2025BC W Auto Differential panel - BloodCBC and differential Lab Routine Missed menses , unspecified gestational age ([facility]) Ordered: 01/25/2025NOIN HealthcareComment on above:Ordered: 01/25/2025HLAMYDIA TRACHOMATIS (GENITO/STI) CHLAMYDIA TRACHOMATIS (GENITO/STI) Lab Routine STD exposure Ordered: 12/14/2023 [facility] HealthcareComment on above:Ordered: 12/14/2023ytology Cervical or vaginal smear or scraping studyPap Smear Pathology and Cytology Routine 20 weeks gestation of Well woman exam with routine gynecological exam Ordered: 12/14/2023[facility] Healthcare Work Phone: comment on above:Ordered: 12/14/2023Hemoglobin A1c/Hemoglobin.total in BloodHemoglobin A1c Lab Routine Missed menses , unspecified gestational age ([facility]) Ordered: 01/25/2025[facility] HealthcareComment on above:Ordered: 01/25/2025Hepatitis B virus surface Ag [Presence] in Serum or Plasma by ImmunoassayHepatitis B surface antigen Lab Routine Missed menses , unspecified gestational age ([facility]) Ordered: 01/25/2025[facility] HealthcareComment on above:Ordered: 01/25/2025Hepatitis C virus Ab [Presence] in Serum or Plasma by ImmunoassayHepatitis C antibody Lab Routine Missed menses , unspecified gestational age ([facility]) Ordered: 01/25/2025[facility] HealthcareComment on above:Ordered: 01/25/2025HIV-1/HIV-2 antigen/antibody combination immunoassayHIV-1 and HIV-2 antibodies Lab Routine Missed menses , unspecified gestational age ([facility]) Ordered: 01/25/2025[facility] HealthcareComment on above:Ordered: 01/25/2025Neisseria gonorrhoeae DNA [Presence] in Unspecified specimen by HERBER with probe detectionNeisseria gonorrhea DNA probe, direct Lab Routine STD exposure Ordered: 12/14/2023[facility] HealthcareComment on above:Ordered: 12/14/2023eagin Ab [Presence] in Serum by RPRRPR Lab Routine Missed menses , unspecified gestational age ([facility]) Ordered: 01/25/2025[facility] HealthcareComment on above:Ordered: 01/25/2025 Rubella antibody, IgGRubella antibody, IgG Lab Routine Missed menses , unspecified gestational age ([facility]) Ordered: 01/25/2025[facility] HealthcareComment on above:Ordered: 01/25/2025SURESWAB(R) ADVANCED VAGINITIS PLUS, TMASURESWAB(R) ADVANCED VAGINITIS PLUS, TMA Pathology and Cytology Routine Vaginal discharge Ordered: 12/14/2023[facility]:Ordered: 12/14/2023 Immunizations Immunization DateImmunizationNotesCare MpxdlffpCujzrmkp39-55-3419gdgzgdfsl A vaccine, pediatric/adolescent dosage, 2 dose scheduleYaritza CAMARILLO Work Phone: [facility] RehabEccajjwfck18-59-5509edhhhgner A vaccine, pediatric/adolescent dosage, 2 dose scheduleYaritza CAMARLILO Work Phone: [phone]-[facility] RehabKabqnqgdus27-15-0076ookbdkxpdodiy polysaccharide (groups A, C, Y and W-135) diphtheria toxoid conjugate vaccine (MCV4P)Yaritza CAMARILLO Work Phone: [phone] [place], [place] [address]Bnweyezidr78-10-6550srpuhuu toxoid, reduced diphtheria toxoid, and acellular pertussis vaccine, adsorbedAmy Wendy CAMARILLO Work Phone: [phone] [place], [place] [address]Flkpxrfadq13-99-1356btjttqkyr virus vaccineYaritza CAMARILLO Work Phone: [phone] [place], [place] [address]Cvnnerfhpc83-99-0002jkaqhiqrp virus vaccine, whole virusYaritza CAMARILLO Work Phone: [phone] [place], [place] [address]Gwiqxvnrvh63-48-3182qhzzmybmq virus vaccine, unspecified formulationYaritza CAMARILLO Work Phone: [phone]-[facility] RehabDzgihzonhn36-12-0658plktx lrlxjyutn-L3H5-88, preservative-free, injectableYaritza CAMARILLO Work Phone: [phone] [place], [place] [address]Fwrkkjmugt91-89-7842sbrzzfjiq virus vaccine, whole virusYaritza CAMARILLO Work Phone: [phone] [place], [place] [address]Aqkwhipsru94-87-3947qskvgvvot, seasonal, injectableYaritza CAMARILLO Work Phone: [phone] [address] StreetJgocpilfgu88-17-0986tniewmvvkb, tetanus toxoids and acellular pertussis vaccine, 5 pertussis antigensYaritza CAMARILLO Work Phone: [phone] [place], [place] [address]Zkhzhmivdo15-94-6787mpstwefjrbp influenzae type b vaccine, HbOC conjugateYaritza CAMARILLO Work Phone: [phone] [place], [place] [address]Nycppjqefo84-57-0906lzrgbsl, mumps and rubella virus vaccineAmy Wendy PA Work Phone: [phone] [place], [place] [address]Ljaibyunqf06-06-7529vnsaqspokm vaccine, inactivatedAmy Wendy PA Work Phone: [phone] [place], [place] [address]Sokhyghxfs22-64-5284fwwczdfkwh, tetanus toxoids and acellular pertussis vaccine, unspecified formulationAmy Wendy PA Work Phone: [phone] [place], [place] [address]Aqfirlyqqz53-38-7021tekigemfocx influenzae type b vaccine, conjugate unspecified formulationAmy Wendy PA Work Phone: [phone] [place], [place] [id number], mumps and rubella virus vaccineAmy Wendy PA Work Phone: [phone] [place], [place] [id number] virus vaccineAmy Wendy PA Work Phone: [phone] [place], [place] [id number], tetanus toxoids and acellular pertussis vaccine, unspecified formulationAmy Wendy PA Work Phone: [phone] [address] StreetZaljhwgcho72-87-2095vexawvfedsu influenzae type b vaccine, conjugate unspecified formulationAmy Wendy PA Work Phone: [phone] [place], [place] [id number] B vaccine, pediatric or pediatric/adolescent dosageAmy Wendy PA Work Phone: [phone] [place], [place] [id number] vaccine, unspecified formulationAmy Wendy PA Work Phone: [phone]-[facility] RehabGqgpvnjtam54-91-8019qruykiegca, tetanus toxoids and acellular pertussis vaccine, unspecified formulationAmy Wendy PA Work Phone: [phone] [address]Rhiqncwqff03-05-6930yvhlmuqgbpr influenzae type b vaccine, conjugate unspecified formulationAmy Wendy PA Work Phone: [phone] [address] StreetBpyozffuea70-02-7528quvcucduivio conjugate vaccine, 7 valentAmy Spearfish PA Work Phone: [phone] [place], [place] [address]Kjhgslivgl20-25-3780hsjtfovgzo vaccine, unspecified formulationAmy Wendy PA Work Phone: [phone] [place], [place] [address]Vntmkmfjss54-34-4599vlyhdksbqw, tetanus toxoids and acellular pertussis vaccine, unspecified formulationYaritza Portillo MARQUISE Work Phone: [facility]villeTeydgpdbwh67-36-5941npqicqwfmvs influenzae type b vaccine, conjugate unspecified formulationYaritza Portillo MARQUISE Work Phone: NOS[facility]–SmithvilleScaoklyfoi44-13-0056pwhtjfxpm B vaccine, pediatric or pediatric/adolescent dosageAmy Wendy MARQUISE Work Phone: NOS[facility]SmithvilleYfnmfubkmu78-06-2131tawluyatid vaccine, unspecified formulationYaritza Melendrezmarissa CAMARILLO Work Phone: NOS[facility]–SmithvilleBljzgedoom58-83-5712csgwqkouk B vaccine, pediatric or pediatric/adolescent dosageAmy Wendy MARQUISE Work Phone: [facility] Healthcare Payers DatePayer CategoryPayerPolicy ID2023Medicaid[place] [id number] 2022-Present [address] [place] [id number] 2023Medicaid (Managed Care)[place] [employer] [id number] 00-29-9391[facility]1.2.840.313099.1.13.693.2.7.9.784023.232866.315 07-67-5800Ktgvfnd744269Cjnpczy01-88-7364IfmcwrgJ9M296X86[id number] [id number] 2.16.840.1.290219.3.57[id number] 2.16.840.1.585470.3.57[id number] 2.16.840.1.010837.3.57[id number] 2.16840.1.096440.3.57[id number] 2.16.840.1.858972.3.57[id number] 2.840.1.330403.3.579.[id number] 2.840.1.828657.3.57[id number] 2.840.1.361593.3.579.2.727[id number] 2.840.1.414116.3.57[id number] 2.840.1.944728.3.579.2.185[id number] 2.840.1.493137.3.579.[id number] 2.840.1.666640.3.579.2.[id number] 2.840.1.632635.3.579.2.881780-83-0833Fdzczqv0333709 2.16840.1.500000.3.579.2.062252-32-5088Hojshoc5692612 2.840.1.316285.3.579.2.[id number] 2.16.840.1.675183.3.579.2.526408-00-2024Agtfvjr8865909 2.16.840.1.510319.3.579.2.600918-02-6139Qmxjscq4454246 2.16.840.1.612155.3.579.2.299007-44-7402Bdrsrkx6726094 2.16.840.1.972970.3.579.2.981034-81-7233Haonirv3818404 2.16.840.1.316519.3.579.2.462527-73-0753OtvhycpIJ282852484-22-9375Kuryqvd [id number] Social History DateTypeDetailFacilityStart: 04-13-2023 End: 25-76-4829Eiqpymn smoking status NHISEx-smokerNOIN HealthcareHistory of tobacco useCurrent smokerNOIN HealthcareHistory of tobacco useCigarette Smoker [facility] HealthcareStart: 64-64-7677Qtntemw use and exposureUser of smokeless tobaccoNOIN HealthcareStart: 01-12-2024 End: 83-98-4473Rjnqzzdag beverage intakeCurrent drinker of alcohol (finding)[facility] HealthcareStart: 08-30-2022 End: 03-76-7396Acnzevd of Social functionNOIN HealthcareStart: 08-30-2022 End: 18-85-0383Fohnsia Use Disorder Identification Test - Consumption [AUDIT-C] N[facility] HealthcareHow often to you have a drink containing alcohol?Monthly or less [facility] HealthcareHow many standard drinks containing alcohol do you have on a typical day?1 or 2NOMS HealthcareHow often do you have 6 or more drinks on 1 occasion?NeverNOMS HealthcareStart: 19-12-2033Dxocsts CommentVapes nicotine dailyNOMS HealthcareStart: 59-29-2053Mjzlebi CommentAlcohol: 1 or 2 drinks on a typical day/monthly or less Caffeine: 1 cup dailyNOMS HealthcareStart: 59-61-3950TvaoatqanRUUA HealthcareStart: 17-62-5579Cpd assigned at birthNot on fileNOIN HealthcareStart: 17-60-6214Govtofs use and exposureSmokeless tobacco non-userMCKAY-DEE HOSPITAL [facility]ENTER HealthcareStart: 05-30-2024 End: 00-17-1465Osaucggtd beverage intakeEx-drinker (finding)[facility] Start: 99-96-7698HplWfmwulJDZC Healthcare Functional Status SbxpJnaoqdjsmdBmhdsdPpuyunpc29-18-9572Oaduxzu Health Questionnaire 2 item (PHQ- 2) [Reported][facility] Imvlcaarnl89-33-5616Ebuxtzg Health Questionnaire 2 item (PHQ- 2) [Reported][facility] Healthcare Work Phone: [phone] Health Questionnaire 2 item (PHQ-2) [Reported][facility] Work Phone: Clinical Notes 01-10-2023 to 02-27-2025 Note Date & QvhlDteyOnhlvrvp22-78-7490 History of Present illness Narrative* Virginie Blakely NP - 02/27/2025 10:50 AM EST Reason for Appointment: Patient ID: Brynn Wallace is a 24 y.o. female who presents for Routine Visit Patient presents today for Return OB appointment. MEDICATIONS Current Outpatient Medications Medication Instructions famotidine (PEPCID) 20 mg, Oral, 2 times daily ibuprofen 800 MG tablet metoclopramide (REGLAN) 10 mg, Oral, 3 times [...] Review of Systems: Review of Systems Constitutional: Positive for fatigue. HENT: Negative. Eyes: Negative. Respiratory: Negative. Cardiovascular: Negative. Gastrointestinal: Positive for nausea. Genitourinary: Negative. Musculoskeletal: Negative. Skin: Negative. Neurological: [...] nursing note reviewed. Exam conducted with a core drier present. Vitals: Estimated body mass index is 41.56 kg/m as calculated from the following: Height as of 07/24/24: 5' 4 . Weight as of this encounter: 242 lb 1.9 oz. BP: 118/80 Patient's last menstrual period was 11/22/2024. Assessment/Plan ICD-10-CM 1. Second trimester ([facility]) Z34.92 2. 13 weeks gestation of ([facility]) Z3A.13 POCT urinalysis dipstick manually resulted Return OB: Patient presents today for a routine obstetrics appointment. Patient is currently 13w6d . Patient states she is doing well but has complaints of being tired due to current . Patient has verbalizes frequent movement. labor precautions was discussed/given and patient was instructed to perform kick counts three times a day. Orders Placed This Encounter Procedures POCT urinalysis dipstick manually resulted Follow Up: Patient is to return to office in 4 week for routine OB appointment. Documented by Virginie Blakely NP on behalf of: Shaw Rojo DO documented in this encounterSSM [id number] History of Present illness Narrative* Caridad Alvarez [...] - Urine culture Positive urine test ([facility]) - US OB transvaginal; Future 9 weeks gestation of ([facility]) First trimester ([facility]) , unspecified gestational age ([facility]) - Type and screen; Future - ABO/Rh; Future - CBC and differential - Hemoglobin A1c - RPR - Rubella antibody, IgG - Hepatitis B surface antigen - Hepatitis C antibody - HIV-1 and HIV-2 antibodies - Rapid drug screen, urine; Future Encounter for supervision of normal first in first trimester ([facility]) - Rapid drug screen, urine; Future Nurse [...] Completed by: Caridad Alvarez documented in this encounterSSM RehabKilkmmkhpv58-31-3523 History of Present illness Narrative* Silva Olmstead [...] the pain. The pain then traveled to [facility], pt is 8 weeks ). HPI History [...] declines. Assessment & Plan documented in this encounterSSM RehabHuevdvhvxb72-50-3367 History of Present illness Narrative* Jeannie Soni [...] bowel or bladder issues. She consulted a clean energy policy analyst at her 6-week postpartumappointment, who suggested that [...] such as walking, bending, and loading the member of congress. She has not experienced any numbness, tingling, [...] views w flexion extension documented in this encounterSSM RehabUvnlzjccus04-82-3726 Telephone encounter Note* Telephone Encounter - Darryn Duque - 06/27/2024 3:09 PM EST Brynn said Ct was denied . Imaging said Ins may have denied it because she needs an MRI first -they didn't know for sure . Please give her a call , ty Brynn -[phone] [facility] Wpoynbwesg42-48-3962 Miscellaneous Notes* Telephone Encounter - Darryn Duque - 06/27/2024 3:09 PM EST Brynn said Ct was denied . Imaging said Ins may have denied it because she needs an MRI first -they didn't know for sure . Please give her a call , ty Brynn -[phone] documented in this encounterSSM RehabJmdhfxuzpf15-09-0782 History of Present illness Narrative* MARQUISE Scott [...] Noted Attention deficit hyperactivity disorder (ADHD) ([facility]) 08/30/2022 Bipolar II disorder ([facility]) 08/30/2022 Acute non intractable tension-type headache 12/11/2019 Adjustment disorder with depressed mood ([facility]) 12/11/2019 Allergic rhinitis 11/23/2018 Amenorrhea 02/23/2021 Anxiety 03/23/2016 Attention deficit 03/04/2023 Chronic fatigue 03/04/2023 Chronic gastritis without bleeding 03/04/2023 Dysfunction of both eustachian tubes 12/07/2018 Dyspareunia due to medical condition in female 03/04/2023 Gastritis and duodenitis 06/03/2015 Grieving ([facility]) 03/04/2023 Infertility, female 03/04/2023 Menstrual cramps 07/04/2017 Pelvic congestion syndrome 03/04/2023 Slow transit constipation 04/11/2017 Vitamin D deficiency 03/13/2019 Migraine with aura and with status migrainosus, not intractable ([facility]) 05/27/2020 Mixed anxiety and depressive disorder [...] bilateral Adjustment disorder with depressed mood ([facility]) 12/11/2019 Allergic rhinitis unspecified seasonality, unspecified [...] behalf of: MARQUISE Scott documented in this encounterSSM [id number] History of Present illness Narrative* Silva Olmstead [...] is localized above the sacrum and radiates correction up her back. She reports no history [...] day. Her 6-week follow- up with her charge preparation technician is scheduled in 2 weeks. She also [...] cause at that time. documented in this encounterNOSaint Luke's [facility] Hospital–SmithvilleKryojteyvl37-68-7140 Telephone encounter Note* Telephone Encounter - Ngozi [...] give me a call back at [phone]. Thanks. I called pt back and asked [...] go get evaluated at the ER. [facility] Daxsyuuowi40-55-3044 Miscellaneous Notes* Telephone Encounter - Ngozi Ledezma [...] give me a call back at [phone]. Thanks. I called pt back and asked [...] at the ER. [facility] documented in this encounterSSM [id number] History of Present illness Narrative* Tracey Mark [...] Noted Attention deficit hyperactivity disorder (ADHD) ([facility]) 08/30/2022 Bipolar II disorder ([facility]) 08/30/2022 Acute non intractable tension-type headache 12/11/2019 Adjustment disorder with depressed mood ([facility]) 12/11/2019 Allergic rhinitis 11/23/2018 Amenorrhea 02/23/2021 Anxiety 03/23/2016 Attention deficit 03/04/2023 Chronic fatigue 03/04/2023 Chronic gastritis without bleeding 03/04/2023 Dysfunction of both eustachian tubes 12/07/2018 Dyspareunia due to medical condition in female 03/04/2023 Gastritis and duodenitis 06/03/2015 Grieving ([facility]) 03/04/2023 Infertility, female 03/04/2023 Menstrual cramps 07/04/2017 Pelvic congestion syndrome 03/04/2023 Slow transit constipation 04/11/2017 Vitamin D deficiency 03/13/2019 Migraine with aura and with status migrainosus, not intractable ([facility]) 05/27/2020 Mixed anxiety and depressive disorder 12/25/2019 [...] tube, bilateral Adjustment disorder with depressed mood ([facility]) 12/11/2019 Allergic rhinitis unspecified seasonality, unspecified trigger [...] nursing note reviewed. Exam conducted with a core drier present. Vitals: Estimated body mass index is [...] of: Shaw Rojo DO documented in this encounterSSM [id number] History of Present illness Narrative* MARQUISE Scott [...] Date Noted Attention deficit hyperactivity disorder (ADHD) ([facility]) 08/30/2022 Bipolar II disorder ([facility]) 08/30/2022 Acute non intractable tension-type headache 12/11/2019 Adjustment disorder with depressed mood ([facility]) 12/11/2019 Allergic rhinitis 11/23/2018 Amenorrhea 02/23/2021 Anxiety 03/23/2016 Attention deficit 03/04/2023 Chronic fatigue 03/04/2023 Chronic gastritis without bleeding 03/04/2023 Dysfunction of both eustachian tubes 12/07/2018 Dyspareunia due to medical condition in female 03/04/2023 Gastritis and duodenitis 06/03/2015 Grieving ([facility]) 03/04/2023 Infertility, female 03/04/2023 Menstrual cramps 07/04/2017 Pelvic congestion syndrome 03/04/2023 Slow transit constipation 04/11/2017 Vitamin D deficiency 03/13/2019 Migraine with aura and with status migrainosus, not intractable ([facility]) 05/27/2020 Mixed anxiety and depressive disorder 12/25/2019 [...] tube, bilateral Adjustment disorder with depressed mood ([facility]) 12/11/2019 Allergic rhinitis unspecified seasonality, unspecified trigger [...] for nst and bpp today at the [facility] Orders Placed This Encounter Procedures US OB SCAN FOR GROWTH POCT urinalysis dipstick manually resulted Follow Up: Patient is to return to office in 1 week for routine OB appointment. Documented by MARQUISE Scott on behalf of: MARQUISE Scott documented in this encounterSSM [id number] History of Present illness Narrative* Tracey Mark, [...] Noted Attention deficit hyperactivity disorder (ADHD) ([facility]) 08/30/2022 Bipolar II disorder ([facility]) 08/30/2022 Acute non intractable tension-type headache 12/11/2019 Adjustment disorder with depressed mood ([facility]) 12/11/2019 Allergic rhinitis 11/23/2018 Amenorrhea 02/23/2021 Anxiety 03/23/2016 Attention deficit 03/04/2023 Chronic fatigue 03/04/2023 Chronic gastritis without bleeding 03/04/2023 Dysfunction of both eustachian tubes 12/07/2018 Dyspareunia due to medical condition in female 03/04/2023 Gastritis and duodenitis 06/03/2015 Grieving ([facility]) 03/04/2023 Infertility, female 03/04/2023 Menstrual cramps 07/04/2017 Pelvic congestion syndrome 03/04/2023 Slow transit constipation 04/11/2017 Vitamin D deficiency 03/13/2019 Migraine with aura and with status migrainosus, not intractable ([facility]) 05/27/2020 Mixed anxiety and depressive disorder [...] bilateral Adjustment disorder with depressed mood ([facility]) 12/11/2019 Allergic rhinitis unspecified seasonality, unspecified [...] nursing note reviewed. Exam conducted with a core drier present. Vitals: Estimated body mass index is [...] of: Shaw Rojo DO documented in this encounterSSM [id number] History of Present illness Narrative* MARQUISE Scott [...] Date Noted Attention deficit hyperactivity disorder (ADHD) ([facility]) 08/30/2022 Bipolar II disorder ([facility]) 08/30/2022 Acute non intractable tension-type headache 12/11/2019 Adjustment disorder with depressed mood ([facility]) 12/11/2019 Allergic rhinitis 11/23/2018 Amenorrhea 02/23/2021 Anxiety 03/23/2016 Attention deficit 03/04/2023 Chronic fatigue 03/04/2023 Chronic gastritis without bleeding 03/04/2023 Dysfunction of both eustachian tubes 12/07/2018 Dyspareunia due to medical condition in female 03/04/2023 Gastritis and duodenitis 06/03/2015 Grieving ([facility]) 03/04/2023 Infertility, female 03/04/2023 Menstrual cramps 07/04/2017 Pelvic congestion syndrome 03/04/2023 Slow transit constipation 04/11/2017 Vitamin D deficiency 03/13/2019 Migraine with aura and with status migrainosus, not intractable ([facility]) 05/27/2020 Mixed anxiety and depressive disorder 12/25/2019 [...] tube, bilateral Adjustment disorder with depressed mood ([facility]) 12/11/2019 Allergic rhinitis unspecified seasonality, unspecified trigger [...] behalf of: MARQUISE Scott documented in this encounterSSM [id number] History of Present illness Narrative* Sera Parsons, PONY ROUGHER - 03/08/2024 11:00 AM EST Reason for [...] Noted Attention deficit hyperactivity disorder (ADHD) ([facility]) 08/30/2022 Bipolar II disorder ([facility]) 08/30/2022 Acute non intractable tension-type headache 12/11/2019 Adjustment disorder with depressed mood ([facility]) 12/11/2019 Allergic rhinitis 11/23/2018 Amenorrhea 02/23/2021 Anxiety 03/23/2016 Attention deficit 03/04/2023 Chronic fatigue 03/04/2023 Chronic gastritis without bleeding 03/04/2023 Dysfunction of both eustachian tubes 12/07/2018 Dyspareunia due to medical condition in female 03/04/2023 Gastritis and duodenitis 06/03/2015 Grieving ([facility]) 03/04/2023 Infertility, female 03/04/2023 Menstrual cramps 07/04/2017 Pelvic congestion syndrome 03/04/2023 Slow transit constipation 04/11/2017 Vitamin D deficiency 03/13/2019 Migraine with aura and with status migrainosus, not intractable ([facility]) 05/27/2020 Mixed anxiety and depressive disorder [...] bilateral Adjustment disorder with depressed mood ([facility]) 12/11/2019 Allergic rhinitis unspecified seasonality, unspecified [...] nursing note reviewed. Exam conducted with a core drier present. Vitals: Estimated body mass index is [...] sent to [facility] so she did not have to drive back to [place]. Informed patient that order would be sent to [facility] Scheduling for her to go give urine sample. --ss Documented by Sera Parsons LPN on behalf of: Shaw Rojo DO documented in this encounterSSM [id number] History of Present illness Narrative* MARQUISE Scott [...] Noted Attention deficit hyperactivity disorder (ADHD) ([facility]) 08/30/2022 Bipolar II disorder ([facility]) 08/30/2022 Acute non intractable tension-type headache 12/11/2019 Adjustment disorder with depressed mood ([facility]) 12/11/2019 Allergic rhinitis 11/23/2018 Amenorrhea 02/23/2021 Anxiety 03/23/2016 Attention deficit 03/04/2023 Chronic fatigue 03/04/2023 Chronic gastritis without bleeding 03/04/2023 Dysfunction of both eustachian tubes 12/07/2018 Dyspareunia due to medical condition in female 03/04/2023 Gastritis and duodenitis 06/03/2015 Grieving ([facility]) 03/04/2023 Infertility, female 03/04/2023 Menstrual cramps 07/04/2017 Pelvic congestion syndrome 03/04/2023 Slow transit constipation 04/11/2017 Vitamin D deficiency 03/13/2019 Migraine with aura and with status migrainosus, not intractable ([facility]) 05/27/2020 Mixed anxiety and depressive disorder 12/25/2019 [...] tube, bilateral Adjustment disorder with depressed mood ([facility]) 12/11/2019 Allergic rhinitis unspecified seasonality, unspecified trigger [...] behalf of: MARQUISE Scott documented in this encounterSSM [id number] History of Present illness Narrative* MARQUISE Scott [...] Date Noted Attention deficit hyperactivity disorder (ADHD) ([facility]) 08/30/2022 Bipolar II disorder ([facility]) 08/30/2022 Acute non intractable tension-type headache 12/11/2019 Adjustment disorder with depressed mood ([facility]) 12/11/2019 Allergic rhinitis 11/23/2018 Amenorrhea 02/23/2021 Anxiety 03/23/2016 Attention deficit 03/04/2023 Chronic fatigue 03/04/2023 Chronic gastritis without bleeding 03/04/2023 Dysfunction of both eustachian tubes 12/07/2018 Dyspareunia due to medical condition in female 03/04/2023 Gastritis and duodenitis 06/03/2015 Grieving ([facility]) 03/04/2023 Infertility, female 03/04/2023 Menstrual cramps 07/04/2017 Pelvic congestion syndrome 03/04/2023 Slow transit constipation 04/11/2017 Vitamin D deficiency 03/13/2019 Migraine with aura and with status migrainosus, not intractable ([facility]) 05/27/2020 Mixed anxiety and depressive disorder 12/25/2019 [...] tube, bilateral Adjustment disorder with depressed mood ([facility]) 12/11/2019 Allergic rhinitis unspecified seasonality, unspecified trigger [...] nursing note reviewed. Exam conducted with a core drier present. Vitals: Estimated body mass index is [...] behalf of: MARQUISE Scott documented in this encounterSSM [id number] History of Present illness Narrative* Sera Parsons [...] Noted Attention deficit hyperactivity disorder (ADHD) ([facility]) 08/30/2022 Bipolar II disorder ([facility]) 08/30/2022 Acute non intractable tension-type headache 12/11/2019 Adjustment disorder with depressed mood ([facility]) 12/11/2019 Allergic rhinitis 11/23/2018 Amenorrhea 02/23/2021 Anxiety 03/23/2016 Attention deficit 03/04/2023 Chronic fatigue 03/04/2023 Chronic gastritis without bleeding 03/04/2023 Dysfunction of both eustachian tubes 12/07/2018 Dyspareunia due to medical condition in female 03/04/2023 Gastritis and duodenitis 06/03/2015 Grieving ([facility]) 03/04/2023 Infertility, female 03/04/2023 Menstrual cramps 07/04/2017 Pelvic congestion syndrome 03/04/2023 Slow transit constipation 04/11/2017 Vitamin D deficiency 03/13/2019 Migraine with aura and with status migrainosus, not intractable ([facility]) 05/27/2020 Mixed anxiety and depressive disorder 12/25/2019 [...] tube, bilateral Adjustment disorder with depressed mood ([facility]) 12/11/2019 Allergic rhinitis unspecified seasonality, unspecified trigger [...] nursing note reviewed. Exam conducted with a core drier present. Vitals: Estimated body mass index is [...] of: Shaw Rojo DO documented in this encounterSSM [id number] History of Present illness Narrative* MARQUISE Scott [...] Date Noted Attention deficit hyperactivity disorder (ADHD) ([facility]) 08/30/2022 Bipolar II disorder ([facility]) 08/30/2022 Acute non intractable tension-type headache 12/11/2019 Adjustment disorder with depressed mood ([facility]) 12/11/2019 Allergic rhinitis 11/23/2018 Amenorrhea 02/23/2021 Anxiety 03/23/2016 Attention deficit 03/04/2023 Chronic fatigue 03/04/2023 Chronic gastritis without bleeding 03/04/2023 Dysfunction of both eustachian tubes 12/07/2018 Dyspareunia due to medical condition in female 03/04/2023 Gastritis and duodenitis 06/03/2015 Grieving ([facility]) 03/04/2023 Infertility, female 03/04/2023 Menstrual cramps 07/04/2017 Pelvic congestion syndrome 03/04/2023 Slow transit constipation 04/11/2017 Vitamin D deficiency 03/13/2019 Migraine with aura and with status migrainosus, not intractable ([facility]) 05/27/2020 Mixed anxiety and depressive disorder 12/25/2019 [...] tube, bilateral Adjustment disorder with depressed mood ([facility]) 12/11/2019 Allergic rhinitis unspecified seasonality, unspecified trigger [...] nursing note reviewed. Exam conducted with a core drier present. Vitals: Estimated body mass index is [...] behalf of: MARQUISE Scott documented in this encounterSSM [id number] NotePatient Education Materials Follows:Disease Sore Throat A [...] these instructions at home: Medicines ? Take ltng-bxh-hebudov and prescription medicines only as told by [...] and water are not available, use hand trauma therapist. Contact a health care provider if: ? [...] can cause a sore throat. ? Take xsrp-bww-gnjcwcs medicines only as told by your health [...] provider. Document Revised: 07/08/2021 Document Reviewed: 07/08/2021 [employer]Per[employer] Patient Education ? 2022 [employer] Viral Illness, Adult Viruses are tiny [...] person who is (more content not included)... [facility] Second trimester state, incidental 28 [...] or unspecified fetus documented in this encounter [facility] HealthcareEvaluation note* Diagnosis Blurred vision- Primary Other specified visual disturbances Transient visual loss of both eyes Acute left-sided low back pain with left-sided sciatica Viral gastroenteritis Intestinal infection due to other organism, NEC [facility]* Diagnosis Uses control- Primary 6 weeks follow-up documented in this encounter [facility] HealthcareEvaluation note* Diagnosis Acute midline low back pain without sciatica- Primary documented in this encounter [facility]* Diagnosis Gastroesophageal reflux disease without esophagitis- Primary Esophageal reflux Missed menses Positive urine test ([facility]) documented [facility] this encounter [facility]* Diagnosis Missed menses Positive urine test ([facility]) 9 weeks gestation of ([facility]) First trimester ([facility]) state, incidental , unspecified gestational age ([facility]) Encounter for supervision of normal first in first trimester ([facility]) documented [facility] encounter [facility]* Diagnosis Nausea and vomiting during ([facility])- Primary Second trimester ([facility]-HCC) state, incidental 13 weeks gestation of ([facility]) documented in this encounter [facility] Healthcare Summary Purpose Family History No Family History Records FoundNo Family History Records FoundNo Family History Records FoundNo Family History Records FoundNo Family History Records Found Advance Directives No Advanced Directives Records FoundNo Advanced Directives Records FoundNo Advanced Directives Records FoundNo Advanced Directives Records FoundNo Advanced Directives Records Found Additional Source Comments INFORMATION SOURCE (unrecogn ized section and content) DATE CREATED AUTHOR 12/15/2020 [facility] DATE CREATED AUTHOR AUTHOR'S ORGANIZ ATION 06/23/2022 [facility] Solar [employer] DATE CREATED AUTHOR AUTHOR'S ORGANIZ ATION 10/13/2023 [facility] DATE CREATED AUTHOR AUTHOR'S ORGANIZ ATION 02/28/2025 [facility] DATE CREATED AUTHOR AUTHOR'S ORGANIZ ATION 03/01/2025 [facility] Specialists EPIC Care Teams (unrecognized sec tion and content) Team MemberRelationshipSpecialtyStart DateEnd Date Jeannie Soni MD [address] [place] [address] PCP - GeneralFamily Medicine09/21/22 Sarah Nelson NP [address] [place] [address] Nurse PractitionerFamily Medicine09/21/22Team MemberRelationshipSpecialtyStart DateEnd Date Jeannie Soni MD [address] [place] [address] PCP - GeneralFamily Medicine09/21/22 Sarah Nelson NP [address] [place] [address] Nurse PractitionerFamily Medicine09/21/22Team MemberRelationshipSpecialtyStart DateEnd Date Jeannie Soni MD [address] [place] [address] PCP - GeneralFamily Medicine09/21/22 Sarah Nelson NP [address] [place] [address] Nurse PractitionerJefferson County Health Centerly Medicine09/21/22Te MemberRelationshipSpecialtyStart End Jeannie Soni MD [address] [place] [address] PCP - GeneralFamily Medicine09/21/22 Anila Schneider, UPHOLSTERY PARTS SORTER-LOCK MAINTENANCE SUPERVISOR [address] [facility] [address] [place] [address] PCP - [employer]08/23/22 Sarah Nelson NP [address] [place] [address] Nurse PractitionerPaul [facility]. [facility]ever [facility] Medicine09/21/22Te MemberRelationshipSpecialtyStart End Jeannie Soni MD [address] [place] [address] PCP - GeneralJefferson County Health Centerly Medicine09/21/22 Anila Schneider, UPHOLSTERY PARTS SORTER-LOCK MAINTENANCE SUPERVISOR [address] [facility] [address] [place] [address] PCP - [employer]08/23/22 Sarah Nelson NP [address] [place] [address] Nurse PractitionerPaul A. [facility] Medicine09/21/22Te MemberRelationshipSpecialtyStart End Date Jeannie Soni MD [address] [place] [address] PCP - GeneralFamily Medicine09/21/22 Anila Schneider, UPHOLSTERY PARTS SORTER-LOCK MAINTENANCE SUPERVISOR [address] [facility] [address] [place] [address] PCP - [employer]08/23/22 Sarah Nelson VIDEOTAPE OPERATOR [address] [place] [address] Nurse PractitionerPaul [facility]. [facility] Medicine09/21/22Te MemberRelationshipSpecialtyStart DateEnd Date Jeannie Soni MD [address] [place] [address] PCP - GeneralFamily [facility]09/21/22 Anila Schneider, UPHOLSTERY PARTS SORTER-LOCK MAINTENANCE SUPERVISOR [address] [address] PCP - [employer]08/23/22 Sarah Nelson VIDEOTAPE OPERATOR [address] [place] [address] Nurse PractitionerJefferson County Health Centerly Medicine09/21/22Te MemberRelationshipSpecialtyStart DateEnd Date Jeannie Soni MD [address] [place] [address] PCP - GeneralFamily Medicine09/21/22 Anila Schneider, UPHOLSTERY PARTS SORTER-LOCK MAINTENANCE SUPERVISOR [address] [address] PCP - [employer]08/23/22 Sarah Nelson, VIDEOTAPE OPERATOR [address] [facility] [place] [address] Nurse PractitionerFamily Medicine09/21/22Te MemberRelationshipSpecialtyStart End Jeannie Soni MD [address] [place] [address] PCP - Generalmily Medicine09/21/22 Anila Schneider, UPHOLSTERY PARTS SORTER-LOCK MAINTENANCE SUPERVISOR [address] [facility] [address] [place] [address] PCP - [employer]08/23/22 Sarah Nelson NP [address] [place] [address] Nurse PractitionerPaul [facility]. [facility] Medicine09/21/22Te MemberRelationshipSpecialtyStart End Jeannie Soni MD [address] [place] [address] PCP - Generalmily Medicine09/21/22 Anila Schneider, UPHOLSTERY PARTS SORTER-LOCK MAINTENANCE SUPERVISOR [address] [facility] [address] [place] [address] PCP - [employer]08/23/22 Sarah Nelson NP [address] [place] [address] Nurse PractitionerJefferson County Health Centerly Medicine09/21/22Te MemberRelationshipSpecialtyStart End Jeannie Soni MD [address] [place] [address] PCP - GeneralFamily Medicine09/21/22 Anila Schneider, UPHOLSTERY PARTS SORTER-LOCK MAINTENANCE SUPERVISOR [address] [facility] [address] [place] [address] PCP - [employer]08/23/22 Sarah Nelson, VIDEOTAPE OPERATOR [address] [place] [address] Nurse PractitionerSt. [facility]09/21/22Team MemberRelationshipSpecialtyStart DateEnd Date Jeannie Soni MD [address] [place] [address] PCP - GeneralSt. [facility]09/21/22 Anila Schneider, UPHOLSTERY PARTS SORTER-LOCK MAINTENANCE SUPERVISOR [address] [place] [address] PCP - [employer]08/23/22 Sarah Nelson VIDEOTAPE OPERATOR [address] [place] [address] Nurse PractitionerSt. [facility]09/21/22Te MemberRelationshipSpecialtyStart DateEnd Date Jeannie Soni MD [address] [place] [address] PCP - GeneralJefferson County Health Centerly Medicine09/21/22 Anila Schneider, UPHOLSTERY PARTS SORTER-LOCK MAINTENANCE SUPERVISOR 112 [facility] [address] [place] [address] PCP - [employer]08/23/22 Sarah Nelson, VIDEOTAPE OPERATOR [address] [place] [address] Nurse PractitionerFamily Medicine09/21/22Te MemberRelationshipSpecialtyStart End Jeannie Soni MD [address] [facility] [place] [address] PCP - GeneralFamily Medicine09/21/22 Anila Schneider, UPHOLSTERY PARTS SORTER-LOCK MAINTENANCE SUPERVISOR [address] [facility] [address] [place] [address] PCP - [employer]08/23/22 Sarah Nelson VIDEOTAPE OPERATOR [address] [facility] [place] [address] Nurse PractitionerJefferson County Health Centerly Medicine09/21/22Te MemberRelationshipSpecialtyStart End Jeannie Soni MD [address] [facility] [place] [address] PCP - GeneralFamily Medicine09/21/22 Anila Schneider, UPHOLSTERY PARTS SORTER-LOCK MAINTENANCE SUPERVISOR 112 [facility] [address] [place] [address] PCP - [employer]08/23/22 Sarah Nelson NP [address] [facility] [place] [address] Nurse PractitionerFamily Medicine09/21/22Te MemberRelationshipSpecialtyStart End Jeannie Soni MD [address] [facility] [place] [address] PCP - GeneralFamily Medicine09/21/22 Anila Schneider, UPHOLSTERY PARTS SORTER-LOCK MAINTENANCE SUPERVISOR [address] [place] [address] [place] [address] [facility]08/23/22 Sarah Nelson VIDEOTAPE OPERATOR [address] [facility] [place] [address] Nurse PractitionerSt. Mary'[facility]09/21/22Team MemberRelationshipSpecialtyStart DateEnd Date Jeannie Soni MD [address] [facility] [place] [address] PCP - [facility]09/21/22 Sarah Nelson NP [address] [facility] [place] [address] Nurse PractitionerSt. Mary'[facility]09/21/22Te MemberRelationshipSpecialtyStart DateEnd Date Jeannie Soni MD [address] [facility] [place] [address] PCP - [facility]09/21/22 Sarah Nelson VIDEOTAPE OPERATOR [address] [facility] [address] Nurse PractitionerSt. Mary'[facility]09/21/22Te MemberRelationshipSpecialtyStart DateEnd Date Jeannie Soni MD [address] [facility] [place] [address] PCP - GeneralJefferson County Health Centerly [facility]09/21/22 Anila Schneider, UPHOLSTERY PARTS SORTER-LOCK MAINTENANCE SUPERVISOR [address] [place] [address] [place] [address] PCP - [employer]08/23/22 Sarah Nelson, MASON [address] [place] [address] Nurse PractitionerFanely Medicine09/21/22Te MemberRelationshipSpecialtyStart DateEnd Date Jeannie Soni MD [address] [place] [address] PCP - GeneralSt. [facility]09/21/22 Sarah Nleson NP [address] [place] [address] Nurse PractitionerSt. Mary'[facility]09/21/22Te MemberRelationshipSpecialtyStart End Jeannie Soni MD [address] [place] [address] PCP - GeneralSt. [facility]09/21/22 Sarah Nelson NP [address] [place] [address] Nurse PractitionerPaul [facility]. [facility] Medicine09/21/22Te MemberRelationshipSpecialtyStart End Date Jeannie Soni MD [address] [place] [address] PCP - GeneralPaul [facility]. [facility] Medicine09/21/22 Sarah Nelson NP [address] [place] [address] Nurse PractitionerJefferson County Health Centerly Medicine09/21/22Te MemberRelationshipSpecialtyStart DateEnd Date Jeannie Soni MD [address] [place] [address] PCP - GeneralJefferson County Health Centerly Medicine09/21/22 Jeannie Soni MD [address] [place] [address] PCP - [employer]08/23/24 Sarah Nelson VIDEOTAPE OPERATOR [address] [place] [address] Nurse PractitionerPaul [facility]. [facility] Medicine09/21/22Te MemberRelationshipSpecialtyStart DateEnd Jeannie Soni MD [address] [place] [address] PCP - GeneralJefferson County Health Centerly Medicine09/21/22 Jeannie Soni MD [address] [place] [address] PCP - [employer]08/23/24 Sarah Nelson VIDEOTAPE OPERATOR [address] [place] [address] Nurse PractitionerJefferson County Health Centerly Medicine09/21/22Te MemberRelationshipSpecialtyStart DateEnd Date Jeannie Soni MD [address] [place] [address] PCP - GeneralJefferson County Health Centerly Medicine09/21/22 Jeannie Soni MD [address] [place] [address] PCP - [employer]08/23/24 Sarah Nelson NP [address] [facility] [place] [address] Nurse PractitionerSt. Mary'[facility]09/21/22Te MemberRelationshipSpecialtyStart [facility] Jeannie Soni MD [address] [place] [address] PCP - GeneralSt. [facility]09/21/22 Anila Schneider, UPHOLSTERY PARTS SORTER-LOCK MAINTENANCE SUPERVISOR [address] [place] [address] PCP - [employer] Jeannie Soni MD [address] [place] [address] PCP - [employer]08/23/24 Sarah Nelson NP [address] [facility] [place] [address] Nurse PractitionerSt. Mary'[facility]09/21/22Te MemberRelationshipSpecialtyStart End Jeannie Soni MD [address] [facility] [place] [address] PCP - GeneralSt. [facility]09/21/22 Anila Schneider, UPHOLSTERY PARTS SORTER-LOCK MAINTENANCE SUPERVISOR [address] [place] [address] PCP - [employer] Jeannie Soni MD [address] [place] [address] PCP - [employer]08/23/24 Sarah Nelson NP [address] [facility] [place] [address] Nurse PractitionerFamily Medicine09/21/22Te MemberRelationshipSpecialtyStart Jeannie Soni MD [address] [facility] [place] [address] PCP - GeneralFamily Medicine09/21/22 Anila Schneider APRN-LOCK MAINTENANCE SUPERVISOR [address] [place] [address], [place] [address] PCP - [employer] Jeannie Soni MD [address] [facility] [place] [address] PCP - [employer]08/23/24 Sarah Nelson NP [address] [facility] [place] [address] Nurse PractitionerJefferson County Health Centerly Medicine09/21/22Te MemberRelationshipSpecialtyStart End Date Jeannie Soni MD [address] [facility] [place] [address] PCP - GeneralFamily Medicine09/21/22 Sarah Sykes NP [address] [facility] [place] [address] Nurse PractitionerFamily Medicine09/21/22Te MemberRelationshipSpecialtyStart DateEnd Date Jeannie Soni MD [address] [place] [address] PCP - GeneralFamelrosewakefield hospital Medicine09/21/22 Jeannie Soni MD [address] [place] [address] PCP - [facility]08/23/24 Sarah Sykes NP [address] [place], [place] [address] Nurse PractitionerFami Medicine09/21/22 Reason for Visit (unrecogniz ed section [...] BE BASED ON THE PRIMARY CLINICAL RECORDS. [employer] provides no warranty or guarantee of the accuracy or completeness of information in this document.
[2025-04-03 18:08] LABS: Age Gdln ACOG Testing Note (.); IGP, rfx Aptima HPV ASCU Note (.)
== END 2025-04-01 19:50 | disposition home or self-care (01) ==
LOC: LAB 19:49
PROVIDERS: PCP Family Medicine; Visit Provider Physician Assistant
DX: Z01.419 Encounter for gynecological examination (general) (routine) without abnormal findings (principal)
CPT/HCPCS: 88175

== ENCOUNTER 2025-04-12 14:55 | Outpatient (OUT) | payer BC, OTHER, SELFPAY ==
--- OUTSIDE RECORDS SUMMARY | 2025-04-01 14:50 | XMS_ITS | Encounter Summary ---
Author Organization [facility] Address [address] [place] [address] Care Team Providers Care Computed Tomography Scanner Operator Name Role Phone Jeannie Reynolds MD Primary Care Provider [phone] Sarah Sykes SOFT SUGAR OPERATOR HEAD Unavailable [phone] Reason for Visit * ReasonCommentsRoutine Visit Encounter Details DateTypeDepartmentCare Team (Latest Contact Info)Vjkqtlgzsso79/08/2025 2:50 PM ESTRoutine [facility] [address] [place] [address] Yaritza Nguyen PA [address] [place] [address] Second trimester ([facility]); 18 weeks gestation of ([facility]); Screening, , for anatomic survey ([facility]); Well woman exam with routine gynecological exam; STD exposure Social History Tobacco UseTypesPacks/DayYears UsedDateSmoking Tobacco: FormerCigarettes Smokeless Tobacco: Never Comments:Vapes nicotine jaylnee y Alcohol UseStandard Drinks/WeekCommentsNot Currently0 (1 standard drink [...] on one occasion?Never08/30/2022HQ-2AnswerDate Recorded Patient Health Questionnaire-2 Nibgz380Estimated Date of JfmotrzhNbxomchdLwg75/07/2026ased on last menstrual period of 11/22/2024Sex and Gender InformationValueDate RecordedSex Assigned at BirthNot on fileLegal Sex Rioflg0907/07/2022 6:48 PM EDTGender IdentityNot on fileSexual OrientationNot on fileOccupationIndustryJob 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 female who presents for Routine Visit Patient presents today for Return OB appointment. MEDICATIONS Current Outpatient Medications Medication Instructions docusate sodium (COLACE) 100 mg, Oral, 2 times daily PRN famotidine (PEPCID) 20 mg, Oral, 2 times daily ibuprofen 800 MG tablet ondansetron ODT (ZOFRAN-ODT) 4 mg, Oral, Every 6 hours PRN ALLERGIES Allergies Allergen Reactions Buspirone [...] 12/2023 Ovarian cyst PCOS (polycystic ovarian syndrome) HISTORY PAST MEDICAL HISTORY SOCIAL HISTORY Past Medical History: Diagnosis Date Acne Acute dysfunction of Eustachian tube, bilateral Adjustment disorder with depressed mood 12/11/2019 Allergic rhinitis unspecified seasonality, unspecified trigger Anxiety Ear pain, referred, bilateral Endometriosis Kidney stones 12/2023,2022,2023 Ovarian cyst PCOS (polycystic ovarian syndrome) Social [...] HISTORY Past Surgical History: Procedure Laterality Date CT ANGIOGRAM HEART CORONARY 07/28/2024 CT ANGIOGRAM TAVR 07/28/2024 WISDOM TOOTH EXTRACTION 05/2016 teeth REVIEW OF [...] nursing note reviewed. Exam conducted with a lead miner blasting present. Vitals: Estimated body mass index is 42.23 kg/m?? as calculated from the following: Height as of 07/24/24: 5' 4 . Weight as of this encounter: 246 lb. BP: 120/82 Patient's last menstrual period was 11/22/2024. Assessment/Plan ICD-10-CM 1. Second trimester ([facility]) Z34.92 Alpha fetoprotein, maternal Alpha fetoprotein, maternal 2. 18 weeks gestation of ([facility]) Z3A.18 POCT urinalysis dipstick manually resulted 3. Screening, , for anatomic survey ([facility]) Z36.89 US OB 14+ weeks anatomy scan US OB 14+ weeks anatomy scan 4. Well woman exam with routine gynecological exam Z01.419 Pap Smear 5. STD exposure Z20.2 SURESWAB(R) ADVANCED VAGINITIS PLUS, TMA CHLAMYDIA TRACHOMATIS (GENITO/STI) Neisseria gonorrhea DNA probe, direct Assessment/Plan Return OB/Annual Exam: Patient presents today for a annual exam/routine obstetrics appointment. Patient is currently 34h3egyrwudzr. Patient states she is doing well but has complaints of nausea in the morning. Pap and cultures was obtained without difficulty and patient was given orders for anatomy scan and msAFP to be obtained. Orders Placed This Encounter Procedures US OB 14+ weeks anatomy scan CHLAMYDIA TRACHOMATIS (GENITO/STI) Neisseria gonorrhea DNA probe, direct Alpha fetoprotein, maternal POCT urinalysis dipstick manually resulted Follow Up: Patient is to schedule annual exam for next year and return to office in 4 weeks for OB appointment. Documented by Saida Munzo MA on behalf of: MARQUISE Scott documented in this encounter Plan of Treatment DateTypeDepartmentCare Team (Latest Contact Info)Llzecubxncv15/05/2026 3:20 PM ESTRoutine [facility] [address] [place] [address] Shaw Rojo, [address] [place] [address] NameTypePriorityAssociated DiagnosesOrder ScheduleSURESWAB(R) ADVANCED VAGINITIS PLUS, TMAPathology and CytologyRoutine STD exposure Ordered: 04/01/2025HLAMYDIA TRACHOMATIS (GENITO/STI)LabRoutine STD exposure Ordered: 04/01/2025Neisseria gonorrhea DNA probe, directLabRoutine STD exposure Ordered: 04/01/2025Pap SmearPathology and CytologyRoutine Well woman exam with routine gynecological exam Ordered: 04/01/2025US OB 14+ weeks anatomy scanImagingRoutine Screening, , for anatomic survey ([facility]) Expected: 04/01/2025, Expires: 06/30/2025lpha fetoprotein, maternalLabRoutine Second trimester ([facility]) Expected: 04/01/2025 (Approximate), Expires: 06/02/2025documented as of this encounter Procedures Procedure NamePriorityDate/TimeAssociated DiagnosisCommentsPOCT URINALYSIS LFNRTKWVKpdrkwt92/08/2025 3:35 PM EST 18 weeks gestation of ([facility]) documented in this encounter Results * POCT urinalysis dipstick manually resulted (04/01/2025 3:35 PM EST)Component ValueRef RangeTest MethodAnalysis TimePerformed AtPathologist SignatureColor, UAYellowClarity, UAClearGlucose, UANegativeNegative - 2000(110) ++++ mg/dL Bilirubin, UANegativeNegative - 4(70) +++ mg/dLKetones, UANegativeNegative - 160(16) ++++ mg/dLSpec Grav, UA1.0151 - 1.03Blood, UANegativeNegative - 50 Joey/mcLpH, UA7.55 - 9Protein, UANegativeNegative - 2000(20) ++++ mg/dL Urobilinogen, UA0.20.2 - 12 mg/dLLeukocytes, UANegativeNegative - 500+++ Quyen/mcLNitrite, UANegativeNegative - PositiveSpecimen (Source)Anatomical Location / LateralityCollection Method / VolumeCollection TimeReceived Time Urine04/01/2025 3:35 PM EST Narrative Authorizing ProviderResult TypeResult StatusCranberry Specialty [facility] OF CARE TEST ENTER/EDIT ORDERABLESFinal Result documented in this encounter Visit Diagnoses Diagnosis Second trimester ([facility]) state, incidental 18 weeks gestation of ([facility]) Screening, , for anatomic survey ([facility]) Encounter for anatomic survey Well woman exam with routine gynecological exam Routine gynecological examination STD exposure documented in this encounter Additional Health Concerns AssessmentNoted TimePHQ-9 Depression Total Score: 14105/04/2022 10:43 AM EST documented as of this encounter Care Teams Team MemberRelationshipSpecialtyStart DateEnd Date Jeannie Reynolds MD [address] [place] [address] PCP - GeneralFamily Medicine09/21/22 Sarah Sykes NP [address] [place] [address] Nurse PractitionerFamily Medicine09/21/22documented as of this encounter
--- OUTSIDE RECORDS SUMMARY | 2025-04-12 14:57 | XMS_ITS | Encounter Summary ---
Author Organization [facility] Address [address] [facility] [place] [address] Care Team Providers Care Psychology Technician Name Role Phone Jeannie Reynolds MD Primary Care Provider [phone] Sarah Sykes FINANCIAL INVESTMENT MANAGER Unavailable [phone] Encounter Details DateTypeDepartmentCare Team (Latest Contact Info)Rozdunvdfmv71/05/2025Telephone [facility] [address] [place] [address] Saida Munoz MA Social History Tobacco UseTypesPacks/DayYears UsedDateSmoking Tobacco: FormerCigarettes Smokeless Tobacco: Never Comments:Vapes nicotine jaylene y Alcohol UseStandard Drinks/WeekCommentsNot Currently0 (1 standard [...] on one occasion?Never08/30/2022HQ-2AnswerDate Recorded Patient Health Questionnaire-2 Lhmlc190Estimated Date of PwrwqictKngdiagsIgd73/07/2026ased on last menstrual period of 11/22/2024Sex and Gender InformationValueDate RecordedSex Assigned at BirthNot on fileLegal Sex Ichdfp7607/07/2022 6:48 PM EDTGender IdentityNot on fileSexual OrientationNot on fileOccupationIndustryJob 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 Pharmacy confirmed, medications sent. documented in this encounter Plan of Treatment DateTypeDepartmentCare Team (Latest Contact Info)Jveeswymakk05/05/2026 3:20 PM ESTRoutine [facility] [address] [place] [address] Shaw Rojo DO [address] [facility] [place] [address] documented as of this encounter Visit Diagnoses Diagnosis Nausea and vomiting during ([facility]) Constipation, unspecified constipation type documented in this encounter Additional Health Concerns AssessmentNoted TimePHQ-9 Depression Total Score: 14105/04/2022 10:43 AM EST documented as of this encounter Care Teams Team MemberRelationshipSpecialtyStart DateEnd Jeannie Reynolds MD [address] [place] [address] PCP - GeneralFamily Medicine09/21/22 Sarah Sykes NP [address] [place] [address] Nurse PractitionerFamily Medicine09/21/22documented as of this encounter
--- OUTSIDE RECORDS SUMMARY | 2025-04-12 14:57 | XMS_ITS | Encounter Summary ---
Author Organization [facility] Address [address] [place] [address] Care Team Providers Care Construction Rigger Name Role Phone Jeannie Reynolds MD Primary Care Provider [phone] Sarah Sykes CHAMFERING MACHINE OPERATOR Unavailable [phone] Encounter Details DateTypeDepartmentCare Team (Latest Contact Info)Doxbgbazvaz55/08/2025linisync Result Encounter [facility] Department Unsolicited Yaritza Nguyen PA [address] [place] [address] [place], [place] [id number] Social History Tobacco UseTypesPacks/DayYears UsedDateSmoking Tobacco: FormerCigarettes [...] on one occasion?Never08/30/2022HQ-2AnswerDate Recorded Patient Health Questionnaire-2 Ohmtc293Estimated Date of ItlgctzkFworghcsLkq19/07/2026ased on last menstrual period of 11/22/2024Sex and Gender InformationValueDate RecordedSex Assigned at BirthNot on fileLegal Sex Yowgoj8607/07/2022 6:48 PM EDTGender IdentityNot on fileSexual OrientationNot on fileOccupationIndustryJob 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 Not on fileNot on fileNot on filedocumented as of this encounter Plan of Treatment DateTypeDepartmentCare Team (Latest Contact Info)Wkmsfjnaepc65/05/2026 3:20 PM ESTRoutine [facility] [address] [place] [address] Shaw Rojo, DO [address] [facility] [place] [address] documented as of this encounter Procedures Procedure NamePriorityDate/TimeAssociated DiagnosisCommentsIGP,APTIMA HPV,AGE YWHUObvivqv72/08/2025 3:11 PM EST documented in this encounter Results * IGP,APTIMA HPV,AGE GDLN (04/01/2025 3:11 PM EST)ComponentValueRef RangeTest MethodAnalysis TimePerformed AtPathologist SignatureAGE GDLN ACOG TESTINGNote. TBHComment: ?? TESTS ? RESULT ??FLAG ??UNITS ?REF RANGE ??LAB ?? Clinician Provided Cytology Information ?? Source.............Endoc[employer]ix ?? No. of containers..01 ThinPrep Vial Age Algo ACOG Kimberly... ??21-29 ? 01 ?FLAG LEGEND: ?L-Low Normal,H-High Normal,LL-Alert Low,HH-Alert High <-Panic Low,>-Panic High,A-Abnormal,AA-Critical Abnormal Performed at: 01 =G ?[facility] ?? [address] [place], [place] ??[phone] ?? Patty Warner MD, IGP, RFX APTIMA HPV ASCUNote.TBHComment: ?? TESTS ? RESULT ??FLAG ??UNITS ?REF RANGE ??LAB DIAGNOSIS: ?02 ?? NEGATIVE FOR INTRAEPITHELIAL LESION OR MALIGNANCY. Specimen adequacy: ?02 ?? Satisfactory for evaluation. ??Endocervical and/or squamous metaplastic ?? cells (endocervical component) are present. Performed by: ? 02 ?? Pinky Lr, Musical Instrument Maker Or Repairer ([facility]) . ? 02 Note: ? Note ?02 ?? The Pap smear is a screening test designed to aid in the ?? detection of premalignant and malignant conditions of the ?? uterine cervix. ??It is not a diagnostic procedure and ?? should not be used as the sole means of detecting cervical ?? cancer. ??Both false-positive and false-negative reports do ?? occur. Test Methodology: ? Note ?02 ?? This liquid based ThinPrep(R) pap test was interpreted ?? using the Mobyko(R) Genius(TM) Cervical Algorithm whole ?? slide imaging system. . ? 02 ?? The HPV DNA reflex criteria were not met with this specimen ?? result therefore, no HPV testing was performed. ?FLAG LEGEND: ?L-Low Normal,H-High Normal,LL-Alert Low,HH-Alert High <-Panic Low,>-Panic High,A-Abnormal,AA-Critical Abnormal Performed at: 02 WB ?[facility] ?? [address] [place] ??[phone] ?? Patty Warner MD, Performed at: ??=G - [facility] [address] [facility], [place] ??[id number] Cellophane Casting Machine Repairer: Patty Warner MD, Phone: ??[phone] Performed at: ??WB - [facility] [address] [facility], [place] ??[id number] Cellophane Casting Machine Repairer: Patty Warner MD, Phone: ??[phone] Specimen (Source)Anatomical Location / LateralityCollection Method / Volume Collection TimeReceived Time04/01/2025 3:11 PM EST04/01/2025 8:00 PM EST Narrative [facility] - 04/03/2025 6:08 PM EST SPATULA-ALONE ENDOCERVIX Authorizing ProviderResult TypeResult StatusAmy Wendy ODELL BLOOD ORDERABLES Final ResultPerforming OrganizationAddressCity/State/ZIP CodePhone Number [facility] documented in this encounter Visit Diagnoses Not on filedocumented in this encounter Additional Health Concerns AssessmentNoted TimePQ-9 Depression Total Score: 14105/04/2022 10:43 AM EST documented as of this encounter Care Teams Team MemberRelationshipSpecialtyStart DateEnd Date Jeannie Reynolds MD [address] [place] [address] PCP - GeneralFamily Medicine09/21/22 Sarah Sykes NP [address] [facility] [place] [address] Nurse PractitionerFamily Medicine09/21/22documented as of this encounter
--- OUTSIDE RECORDS SUMMARY | 2025-04-12 14:57 | XMS_ITS | Clinical Summary ---
Author Organization [facility] Healthcare Address [address] [address] Care Team Providers Care Bunker Worker Name Role Phone Jeannie Reynolds MD Primary Care Provider [phone] Sarah Sykes COPPERSMITH HELPER Unavailable [phone] Allergies Active AllergyReactionsCriticalityNoted XsxrCwizjuudQwmqaolqv95/08/2023 Other Reaction(s): Increased anxiety/hallucinations Lqzzggdmztf65/08/2023 Other Reaction(s): Unknown Dhemtpkvnp67/08/2023 Other Reaction(s): restlessness Latuda FwjgaDjkxznk02/01/2021 Medications MedicationSigDispense QuantityRefillsLast FilledStart DateEnd DateStatus ibuprofen 800 MG tablet 5Active famotidine (Pepcid) 20 MG tablet Indications:Gastroesophageal reflux disease without esophagitisTake 1 tablet (20 mg) by mouth in the morning and 1 tablet (20 mg) before bedtime. 60 tablet 5Active ondansetron ODT (Zofran-ODT) 4 MG disintegrating tablet Indications:Nausea and vomiting during ([facility])Take 1 tablet (4 mg) by mouth every 6 (six) hours if needed for nausea or vomiting 30 tablet 501/6Active metoclopramide (Reglan) 10 MG tablet Indications:Nausea/vomiting in ([facility])Take 1 tablet (10 mg) by mouth in the morning and 1 tablet (10 mg) at noon and 1 tablet (10 mg) in the evening. Take before meals. Take 1 tablet by mouth 30 minutes prior to meals 3 times daily as needed for nausea. 90 tablet 511/Discontinued(Therapy completed) promethazine (Phenergan) 12.5 MG tablet Indications:Nausea and vomiting during ([facility])Take 1 tablet (12.5 mg) by mouth every 6 (six) hours if needed for nausea or vomiting for up to 30 d oses Take 1 tablet by mouth every 6 hours as needed for nausea. 30 tablet Discontinued(Therapy completed) ondansetron ODT (Zofran-ODT) 4 MG disintegrating tablet Indications:Nausea and vomiting during ([facility])Take 1 tablet (4 mg) by mouth every 6 (six) hours if needed for nausea or vomiting 30 tablet Discontinued(Reorder) docusate sodium (Colace) 100 MG capsule Indications:Constipation, unspecified constipation typeTake 1 capsule (100 mg) by mouth 2 (two) times a day as needed for constipation for up to 10 days 30 capsule Expired Active Problems ProblemNoted DateDiagnosed DateIrregular uzghldc12/09/2024Attention deficit 03/04/2023hronic xklclzp8003/04/2023hronic gastritis without oscnwtvc14/10/2023 Dyspareunia due to medical condition in cepbld4903/04/20234630Nevlbhjy91/10/2023 Infertility, fmgyjv123Pelvic congestion yuaoxpxi40/10/2023ttention deficit hyperactivity disorder (ADHD)08/30/2022ipolar II uyqycjjo90/08/2023 Shxaeywqwv85/01/2021Migraine with aura and with status migrainosus, not eubawdifirc54/02/2021Mixed anxiety and depressive zmhjjgip45/01/2020Acute non intractable tension-type ikugazab92/18/2020Adjustment disorder with depressed mood12/11/2019Vitamin D cfdevrlfvd09/19/2019Dysfunction of both eustachian tubes 12/07/2018Allergic hhnovmzk88/01/2019Menstrual ylyplg3207/04/2017Slow transit wzjikabnphzl98/18/4787Oqxbyvo28/29/2016Gastritis and bwaiyxdxtc38/09/2016 Estimated Date of OurozcsjZamyfxdhSne82/07/2026Based on last menstrual period of 11/22/2024 Encounters DateTypeDepartmentCare JnhzWbcfrxsbtzt64/19/2025Orders Only [facility] [address] [address] Linda Lala MA 04/01/2025 2:50 PM ESTRoutine [facility] [address] [address] Yaritza Nguyen PA Second trimester ([facility]); 18 weeks gestation of ([facility]); Screening, , for anatomic survey ([facility]); Well woman exam with routine gynecological exam; STD ngpfcste78/08/2025linisync Result Encounter [facility] External Department Unsolicited Yaritza Nguyen PA 04/01/2025External Result Encounter [facility] External Department Unsolicited Yaritza Nguyen PA 04/01/2025amboo flowsheet [facility] [address] [address] Yaritza Nguyen PA 03/29/2025Telephone [facility] [address] [address] Saida Munoz MA 03/19/2025bstract [facility] [address] [address] Waldo Rojo DO 03/14/2025Refill [facility] [address] [address] Linda Lala MA Nausea and vomiting during ([facility])03/05/2025bstract [facility] [address] [place] [address] Saida Munoz MA 02/27/2025 10:50 AM ESTRoutine [facility] [address] [address] Waldo Rojo DO Nausea and vomiting during ([facility]) (Primary Dx); Second trimester ([facility]); 13 weeks gestation of ([facility])02/27/2025linisync Result Encounter [facility] External Department Unsolicited Waldo Rojo, DO 02/27/2025amboo flowsheet [facility] [address] [phone] Waldo Rojo, DO 02/01/2025Refill [facility] [address] [address] Linda Lala MA Nausea and vomiting in ([facility])01/25/2025 10:00 AM EDTInitial [facility] [address] [phone] GA: 9w1d01/25/2025linisync Result Encounter [facility] External Department Unsolicited Waldo Rojo, DO 01/23/2025Telephone [facility] [address] [phone] Sera Parsons LPN 01/21/2025 4:00 PM EDTOffice Visit [facility] [address] [place] [phone] Silva Olmstead NP Gastroesophageal reflux disease without esophagitis (Primary Dx)01/21/2025amb flowsheet [facility] [address] [place] [address] Silva Olmstead NP 01/21/20253706Ojicwd33/19/2025Telephone [facility] [address] [address] Linda Lala MA from Last 3 Months Immunizations ImmunizationAdministration DatesNext DueDTaP, 5 pertussis gbimphun96/24/2007 DTaP, Acgmylhqbut60/07/2003,2001,2001,2001Hep A, ped/adol, 2 dose03/01/2014,07/26/2013Hep B, Adolescent or Yojguddea70/26/2002,2001, 2001HiB, uoyqbgzialu92/07/2003,2001,2001,2001Hib (HbOC) 09/15/2006IPV09/15/2006Influenza Whole05/16/2012,04/29/2008Influenza, seasonal, eecicepkyg54/05/5743FHD4309/15/2006,07/30/2002Meningococcal MDA0L4707/26/2013Novel dgqnjinwv-M3H1-78, preservative-free02/12/2009Pneumococcal Conjugate PCV 7 2001Polio, Kusngixramd50/26/2002,2001,2001Tdap07/26/2013 Kzdwkgoyj99/03/2014,07/30/2002 Family History Medical HistoryRelationNameCommentsDiabetesMaternal GrandmotherMental illness Maternal [...] on one occasion?Never08/30/2022HQ-2AnswerDate Recorded Patient Health Questionnaire-2 Tppnl607Estimated Date of IqxizxvzRmhsgctnWyp66/07/2026ased on last menstrual period of 11/22/2024Sex and Gender InformationValueDate RecordedSex Assigned at BirthNot on fileLegal Sex Bzlyyv3407/07/2022 6:48 PM EDTGender IdentityNot on fileSexual OrientationNot on fileOccupationIndustryJob 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 Not on fileNot on fileNot on file Last Filed Vital Signs Vital SignReadingTime TakenCommentsBlood Ngkqdhzg477/8212 3:30 PM EST Bezwl398601/21/2025 4:04 PM QNJEnjbcjnklkr77.2 ??C (97.1 ??F)08/02/2023 3:46 PM EDTRespiratory Rate--Oxygen Elwhymwlpd94%01/21/2025 4:04 PM EDTInhaled Oxygen Concentration--Gsicnu534 kg (246 lb)04/01/2025 3:30 PM NXJKorlau372.6 cm (5' 4 ) 07/24/2024 12:59 PM EDTBody Mass Index42.23007/24/2024 12:59 PM EDT Plan of Treatment DateTypeDepartmentCare Team (Latest Contact Info)Jncutubtfrj06/05/2026 3:20 PM ESTRoutine [facility] [address] [address] Waldo Rojo DO [address] [place], [place] [phone] Health MaintenanceDue DateLast DoneCommentsCOVID-19 Vaccine ( season) 505/07/2022, 06/01/2022Influenza Vaccine (#1), 04/29/2008, 03/29/2007Pneumococcal Vaccine: Pediatrics (0 to 5 Years) and At- Risk Patients (6 to 64 Years)Aged Out2001No longer eligible based on patient's age to complete this topic Procedures Procedure NamePriorityDate/TimeAssociated DiagnosisCommentsPOCT URINALYSIS OKOIENCUBjsumvw82/08/2025 3:35 PM EST 18 weeks gestation of ([facility]) IGP,APTIMA HPV,AGE JEJHFhilbkd32/08/2025 3:11 PM EST RECURRENT VAGINITIS (HTRX)Bamfkni4904/01/2025 4:00 AM EST PAP TEST, CFSCDFBNYrvpahy22/08/2025 12:00 AM ESTPOCT URINALYSIS DIPSTICKRoutine 02/27/2025 11:14 AM EST 13 weeks gestation of ([facility]) HBSAG VEEILPGpgfxdy24/05/2025 10:41 AM EST RAPID PLASMA REAGIN, XMPAKKikwlnm81/05/2025 10:41 AM EST HCV ANTIBODY RFX TO QUANT ZZQHeepjpv88/05/2025 10:41 AM EST ALL RUBELLA IGG OEJuynfdv83/05/2025 10:41 AM EST HIV AB/P24 AG WITH ZOXLNYJaiyujt66/05/2025 10:41 AM EST MLR HEMOGLOBIN F2GJpafhuz97/05/2025 10:41 AM EST ALL TYPE AND ILTIZMFafbndw50/05/2025 10:41 AM EST ALL CBC WITH AUTO QIKDKygiaes59/05/2025 10:41 AM EST BOX IUFNTtsbeoy64/05/2025 10:41 AM EST US OB YSJBGBXCNJFP04/03/2025 2:26 PM EDT from Last 3 Months Results * POCT urinalysis dipstick manually resulted (04/01/2025 3:35 PM EST) Only the most recent of2 resultswithin the time period is included. ComponentValueRef RangeTest MethodAnalysis TimePerformed AtPathologist Signature Color, UAYellowClarity, UAClearGlucose, UANegativeNegative - 2000(110) ++++ mg/dLBilirubin, UANegativeNegative - 4(70) +++ mg/dLKetones, UANegativeNegative - 160(16) ++++ mg/dLSpec Grav, UA1.0151 - 1.03Blood, UANegativeNegative - 50 Joey/mcLpH, UA7.55 - 9Protein, UANegativeNegative - 2000(20) ++++ mg/dL Urobilinogen, UA0.20.2 - 12 mg/dLLeukocytes, UANegativeNegative - 500+++ Quyen/mcL Nitrite, UANegativeNegative - PositiveSpecimen (Source)Anatomical Location / LateralityCollection Method / VolumeCollection TimeReceived KgycCidyc37/08/2025 3:35 PM EST Narrative Authorizing ProviderResult TypeResult Status[facility] TEST ENTER/EDIT ORDERABLESFinal Result * IGP,APTIMA HPV,AGE GDLN (04/01/2025 3:11 PM [...] at: 01 =G ?[facility] ?? [address] [place] ??[phone] ?? Patty Warner MD, IGP, RFX APTIMA HPV ASCUNote.TBHComment: ?? TESTS ? RESULT ??FLAG ??UNITS ?REF RANGE ??LAB DIAGNOSIS: ?02 ?? NEGATIVE FOR INTRAEPITHELIAL LESION OR MALIGNANCY. Specimen adequacy: ?02 ?? Satisfactory for evaluation. ??Endocervical and/or squamous metaplastic ?? cells (endocervical component) are present. Performed by: ? 02 ?? Pinky Lr, Puddler Helper (ASCP) . ? 02 Note: ? Note ?02 [...] pap test was interpreted ?? using the Manifest Digital(R) H?REL(TM) Cervical Algorithm whole ?? slide imaging system. . ? 02 ?? The HPV DNA reflex criteria were not met with this specimen ?? result therefore, no HPV testing was performed. ?FLAG LEGEND: ?L-Low Normal,H-High Normal,LL-Alert Low,HH-Alert High <-Panic Low,>-Panic High,A-Abnormal,AA-Critical Abnormal Performed at: 02 WB ?[facility] [place] ?? [address] [place], [place] ??[phone] ?? Patty Warner MD, Performed at: ??=G - [facility] [place] [address], [place] ??[id number] Accident Investigator: Patty Warner MD, Phone: ??[phone] Performed at: ??WB - [facility] [address] ??[id number] Accident Investigator: Patty Warner MD, Phone: ??[phone] Specimen (Source)Anatomical Location / LateralityCollection Method / Volume Collection TimeReceived Time04/01/2025 3:11 PM EST04/01/2025 8:00 PM EST Narrative CLINISYNC - 04/03/2025 6:08 PM EST SPATULA-ALONE ENDOCERVIX Authorizing ProviderResult TypeResult StatusAmy [facility] BLOOD ORDERABLES Final ResultPerforming OrganizationAddressCity/State/ZIP CodePhone Number CLINISYRI [facility] * RECURRENT VAGINITIS (HTRX) (04/01/2025 4:00 AM EST)ComponentValueRef RangeTest MethodAnalysis TimePerformed AtPathologist SignatureATOPOBIUM NMYIXRW588.961 - 24.689 ppm04/03/2025 6:58 AM ESTHealthTrackRx at LabPortATOPOBIUM VAGINAENot Ckmaepik10.961 - 24.689 ppm04/03/2025 6:58 AM ESTHealthTrackRx at LabPortBVAB 2,3 (BACTERIAL VAGINOSIS ASSOCIATED BACTERIA 2, 3); MOBILUNCUS CFU356.961 - 24.689 ppm04/03/2025 6:58 AM ESTHealthTrackRx at LabPortBVAB 2,3 (BACTERIAL VAGINOSIS ASSOCIATED BACTERIA 2, 3); MOBILUNCUS SPPNot Quithype64.961 - 24.689 ppm04/03/2025 6:58 AM ESTHealthTrackRx at [facility] HospitalCANDIDA ALBICANS, PARAPSILOSIS, HUVLGIALMZ144.000 - 30.347 ppm04/03/2025 6:58 AM EST [facility] at LabPortCANDIDA ALBICANS, PARAPSILOSIS, TROPICALISNot Detected 23.000 - 30.347 ppm04/03/2025 6:58 AM ESTHealthTrackRx at LabPortCANDIDA SQNYVXWN679.000 - 31.618 ppm04/03/2025 6:58 AM ESTHealthTrackRx at [facility] CLIFFORD GLABRATANot Vvaxmnip51.000 - 31.618 ppm04/03/2025 6:58 AM EST [facility] at LabPortCANDIDA GNHGFZ903.000 - 30.873 ppm04/03/2025 6:58 AM ESTHealthTrackRx at LabPortCANDIDA KRUSEINot Awkzzlnc48.000 - 30.873 ppm 04/03/2025 6:58 AM ESTHealthTrackRx at LabPortCHLAMYDIA MWUXHFKQCPH864.000 - 31.586 ppm04/03/2025 6:58 AM ESTHealthTrackRx at LabPortCHLAMYDIA TRACHOMATIS Not Gyfygwio40.000 - 31.586 ppm04/03/2025 6:58 AM ESTHealthTrackRx at [facility] GARDNERELLA TSEFIWGSK486.961 - 24.689 ppm04/03/2025 6:58 AM ESTHealthTrackRx at LabPortGARDNERELLA VAGINALISNot Quluurcu28.961 - 24.689 ppm04/03/2025 6:58 AM ESTHealthTrackRx at LabPortMEGASPHAERA (TYPES 1, 2)019.961 - 24.689 ppm 04/03/2025 6:58 AM ESTHealthTrackRx at LabPortMEGASPHAERA (TYPES 1, 2)Not Wfmviwga74.961 - 24.689 ppm04/03/2025 6:58 AM ESTHealthTrackRx at [facility] NEISSERIA NYAIZIMDTNH402.000 - 32.587 ppm04/03/2025 6:58 AM ESTHealthTrackRx at LabPortNEISSERIA GONORRHOEAENot Wxhhsqcs08.000 - 32.587 ppm04/03/2025 6:58 AM ESTHealthTrackRx at LabPortTRICHOMONAS ECHMOGAKW120.000 - 31.995 ppm 04/03/2025 6:58 AM ESTHealthTrackRx at LabPortTRICHOMONAS VAGINALISNot Xnrzfchi56.000 - 31.995 ppm04/03/2025 6:58 AM ESTHealthTrackRx at [facility] MYCOPLASMA NJWMSFWUAZ202.961 - 24.689 ppm04/03/2025 6:58 AM ESTHealthTrackRx at LabPortMYCOPLASMA GENITALIUMNot Auiixvyn15.961 - 24.689 ppm04/03/2025 6:58 AM ESTHealthTrackRx at LabPortSpecimen (Source)Anatomical Location / LateralityCollection Method / VolumeCollection TimeReceived TimeTissue 04/01/2025 4:00 AM EST04/03/2025 1:39 AM EST Narrative Authorizing ProviderResult TypeResult StatusAmy Clinton PALAB BLOOD ORDERABLES Final ResultPerforming OrganizationAddressCity/State/ZIP CodePhone Number [facility] [address] [place] [address] * PAP TEST, EXTERNAL (04/01/2025 12:00 AM EST) Narrative Authorizing ProviderResult TypeResult StatusAmy Clinton PALAB CYTOLOGY ORDERABLES Final ResultPerforming OrganizationAddressCity/State/ZIP CodePhone Number EXTERNAL LAB * BOX TEST (02/27/2025 10:41 AM EST)ComponentValueRef RangeTest MethodAnalysis TimePerformed AtPathologist SignatureBOX TEST SENT QQHLZELNZSIXEF9XVLLLPDMSRZ8 02/27/2025TBHSpecimen (Source)Anatomical Location / LateralityCollection Method / VolumeCollection TimeReceived Time02/27/2025 10:41 AM EST02/27/2025 10:46 AM EST Narrative CLINISYNC - 02/27/2025 11:32 AM EST Authorizing ProviderResult TypeResult StatusCorey Alia DOLAB BLOOD ORDERABLES Final ResultPerforming OrganizationAddressCity/State/ZIP CodePhone Number CLINISYNC [facility] * HBSAG SCREEN (02/27/2025 10:41 AM EST)ComponentValueRef RangeTest Method Analysis TimePerformed AtPathologist SignatureHBSAG SCREENNegativeNegativeTBH Comment: Performed at: ?? - [facility] [address] ??[id number] Accident Investigator: Dc Mtz PhD, Phone: ??[phone] Specimen (Source)Anatomical Location / LateralityCollection Method / Volume Collection TimeReceived Time02/27/2025 10:41 AM EST02/27/2025 10:46 AM EST Narrative CLINISYNC - 02/28/2025 12:09 PM EST Authorizing ProviderResult TypeResult StatusCorey Alia DOLAB BLOOD ORDERABLES Final ResultPerforming OrganizationAddressty/State/[facility] CodePhone Number [facility] * RAPID PLASMA REAGIN, QUANT (02/27/2025 10:41 AM EST)ComponentValueRef Range Test MethodAnalysis TimePerformed AtPathologist SignatureRAPID PLASMA REAGIN, QUANTNon ReactiveNonRea<1:1 titerTBHComment: Please Note: This test does not meet current guidelines for screening and diagnosis of syphilis. This test is intended for following treatment response in patients being treated for syphilis infection. To screen for syphilis infection, a reflex cascade that includes both RPR and a treponema-specific assay should be utilized, such as Treponema pallidum (Syphilis) Screening [place] (294036) or Rapid Plasma Reagin (RPR) Test With Reflex to Quantitative RPR and Confirmatory Treponema pallidum Antibodies (292579). Performed at: ?? - [facility] [address] ??[id number] Accident Investigator: Dc Mtz PhD, Phone: ??[phone] Specimen (Source)Anatomical Location / LateralityCollection Method / Volume Collection TimeReceived Time02/27/2025 10:41 AM EST02/27/2025 10:46 AM EST Narrative CLINISYNC - 02/28/2025 12:09 PM EST Authorizing ProviderResult TypeResult StatusCorey Alia DOLAB BLOOD ORDERABLES Final ResultPerforming OrganizationAddressty/State/ZIP CodePhone Number [facility] * HIV AB/P24 AG WITH REFLEX (02/27/2025 10:41 AM EST)ComponentValueRef RangeTest MethodAnalysis TimePerformed AtPathologist SignatureHIV AB/P24 AG SCREENNon ReactiveNon ReactiveTBHComment: HIV-1/HIV-2 antibodies and HIV-1 p24 antigen were NOT detected. There is no laboratory evidence of HIV infection. HIV Negative Performed at: ??[address] ??[id number] Accident Investigator: Dc Mtz PhD, Phone: ??[phone] Specimen (Source)Anatomical Location / LateralityCollection Method / Volume Collection TimeReceived Time02/27/2025 10:41 AM EST02/27/2025 10:46 AM EST Narrative CLINISYNC - 02/28/2025 8:09 AM EST Authorizing ProviderResult TypeResult StatusCorey Alia DOLAB BLOOD ORDERABLES Final ResultPerforming OrganizationAddressty/State/ZIP CodePhone Number [facility] * HCV ANTIBODY RFX TO QUANT PCR (02/27/2025 10:41 AM EST)ComponentValueRef Range Test MethodAnalysis TimePerformed AtPathologist SignatureHCV ABNon ReactiveNon ReactiveTBHINTERPRETATION:Comment.TBHComment: Not infected with HCV unless early or acute infection is suspected (which may be delayed in an immunocompromised individual), or other evidence exists to indicate HCV infection. Performed at: ??[address] ??[id number] Accident Investigator: Dc Mtz PhD, Phone: ??[phone] Specimen (Source)Anatomical Location / LateralityCollection Method / Volume Collection TimeReceived Time02/27/2025 10:41 AM EST02/27/2025 10:46 AM EST Narrative CLINISYNC - 02/28/2025 8:09 AM EST Authorizing ProviderResult TypeResult StatusCorey Alia DOLAB BLOOD ORDERABLES Final ResultPerforming OrganizationAddressty/State/ZIP CodePhone Number [facility] * MLR HEMOGLOBIN A1C (02/27/2025 10:41 AM EST)ComponentValueRef RangeTest Method Analysis TimePerformed AtPathologist SignatureGLYCOHEMOGLOBIN A1C4.74.5 - 6.2 %TBHComment: ADA RECOMMENDED LIMIT 4.0 - 6.0 ADA THERAPEUTIC TARGET < 7.0 ACTION SUGGESTED > 7.0 ESTIMATED AVERAGE GHVJKWM04ur/dLTBHSpecimen (Source)Anatomical Location / LateralityCollection Method / VolumeCollection TimeReceived Time02/27/2025 10:41 AM EST02/27/2025 10:46 AM EST Narrative CLINISYNC - 02/27/2025 11:50 AM EST Authorizing ProviderResult TypeResult StatusCorey Alia DOCLINISYNCFinal Result Performing OrganizationAddressCity/State/ZIP CodePhone Number [facility] * ALL TYPE AND SCREEN (02/27/2025 10:41 AM EST)ComponentValueRef RangeTest MethodAnalysis TimePerformed AtPathologist SignatureBLOOD TYPEO NegativeTBH ANTIBODY SCREENNEGATIVETBHSpecimen (Source)Anatomical Location / Laterality Collection Method / VolumeCollection TimeReceived Time02/27/2025 10:41 AM EST 02/27/2025 10:46 AM EST Narrative CLINISYNC - 02/27/2025 11:44 AM EST [facility] , ?? Authorizing ProviderResult TypeResult StatusCorey Alia DOCLINISYNCFinal Result Performing [facility]Add[facility]/State/ZIP CodePhone Number [facility] * ALL RUBELLA IGG AB (02/27/2025 10:41 AM EST)ComponentValueRef RangeTest Method Analysis TimePerformed AtPathologist SignatureRUBELLA ANTIBODIES, IGG1.55 Immune >0.99 indexTBHComment: Non-immune <0.90 ?Equivocal ??0.90 - 0.99 Immune >0.99 Performed at: ?? - [facility] [address] ??[id number] Accident Investigator: Dc Mtz PhD, Phone: ??[phone] Specimen (Source)Anatomical Location / LateralityCollection Method / Volume Collection TimeReceived Time02/27/2025 10:41 AM EST02/27/2025 10:46 AM EST Narrative CLINISYNC - 02/28/2025 8:09 AM EST Authorizing ProviderResult TypeResult StatusCorey Alia DOCLINISYNCFinal Result Performing OrganizationAddCurahealth Heritage Valleyty/State/ZIP CodePhone Number [facility] * (ABNORMAL) ALL CBC WITH AUTO DIFF (02/27/2025 10:41 AM EST)ComponentValueRef RangeTest MethodAnalysis TimePerformed AtPathologist SignatureTBH WBC10.14.0 - 11.0 10 3/uLTBHTBH RBC4.724.20 - 5.40 10 6/uLTBHTBH HGB12.512.0 - 16.0 g/dLTBH TBH HCT38.036.0 - 48.0 %TBHTBH MCV80.5(L)81.0 - 99.0 fLTBHTBH MCH26.5(L)26.7 - 34.0 pgTBHTBH MCHC32.929.9 - 35.2 g/dLTBHTBH RDW14.111.0 - 15.0 %TBHTBH ZTS130 150 - 450 10 3/uLTBHTBH MPV10.49.5 - 13.5 fLTBHNEUTROPHILS PERCENT AUTO77.6(H) 43.0 - 75.0 %TBHLYMPHOCYTES PERCENT AUTO16.6(L)20.5 - 60.0 %TBHMONOCYTES PERCENT AUTO4.71.7 - 12.0 %TBHTBH EO %0.6(L)0.9 - 7.0 %TBHBASOPHILS PERCENT AUTO0.30.2 - 2.0 %TBHIMMATURE GRANULOCYTES PCT AUTO0.20.0 - 0.5 %TBH NEUTROPHILS ABSOLUTE AUTO7.8(H)1.4 - 6.5 10 3/uLTBHLYMPHOCYTES ABSOLUTE AUTO 1.71.2 - 3.8 10 3/uLTBHMONOCYTES ABSOLUTE AUTO0.50.3 - 0.8 10 3/uLTBHTBH EO # 0.10.0 - 0.7 10 3/uLTBHBASOPHILS ABSOLUTE AUTO0.00.0 - 0.1 10 3/uLTBHIMMATURE GRANULOCYTES ABS AUTO0.020.00 - 0.03 10 3/uLTBHSpecimen (Source)Anatomical Location / LateralityCollection Method / VolumeCollection TimeReceived Time 02/27/2025 10:41 AM EST02/27/2025 10:46 AM EST Narrative CLINISYNC - 02/27/2025 11:36 AM EST Authorizing ProviderResult TypeResult StatusCorey Alia DOCLINISYNCFinal Result Performing OrganizationAddressCity/State/ZIP CodePhone Number [facility]NC [facility] * US OB TRANSVAGINAL (01/25/2025 2:26 PM EDT)Anatomical RegionLateralityModality OtherSpecimen (Source)Anatomical Location / LateralityCollection Method / VolumeCollection TimeReceived Time01/25/2025 2:26 PM EDT Narrative 01/25/2025 2:29 PM EDT [facility] ?[address] ? [place] [address] ? Ultrasound Report ? Signed ? Patient: BRYNN WALLACE ?MR#: [id number] ?? : 2000 ?Acct:[id number] ?? Age/Sex: 24 / F ?ADM Date: 01/25/25 ?? Loc: US ? Attending Dr: Waldo Rojo D.O. ? Ordering Physician: Waldo Rojo D.O. ?? Date of Service: 01/25/25 ?? Procedure(s): US OB transvaginal ?? Accession Number(s): [id number] ? cc: JEANNA PASCUAL ; Waldo Rojo D.O. ? [facility] ? [address] ? [place] [address] ? Patient Name: ?? BRYNN WALLACE ? MRN: [facility]:[id number] ? date: 2000 ?Sex: F ?? Assigned Patient Location: ?? Current Patient Location: [place] ?? Accession/Order Number: [id number] ?? Exam Date: 01/25/2025 ??09:36 ?Report Date: [...] 08/29/2025. ? Impression dictated by: Jordin Cheney Jr., D.O. ??01/25/2025 2:26 PM ? Dictation Location: [facility]-- ? Electronically authenticated by: [id number] ??Y ?? Date: 01/25/2025 ??14:26 ? Dictated By: ?Jordin Cheney M.D. ? Signed By: ?01/25/25 1429 ? DD/ 1426 ? TD/TT: ? Dining Room Supervisor: Procedure Note Radiology, Radiologist, - 01/25/2025 [place] [address] Ultrasound Report Signed Patient: BRYNN WALLACE MMR#: [id number] : 2000Acct:[id number] Age/Sex: 24 FADM Date: 01/25/25 Loc: US Attending Dr: Waldo Rojo D.O. Ordering Physician: Waldo Rojo D.O. Date of Service: 01/25/25 Procedure(s): US OB transvaginal Accession Number(s): [id number] cc: JEANNA PASCUAL ; Waldo Rojo D.O. The [place] [id number] Patient Name: BRYNN WALLACE MRN: [id number] date: 2000 Sex: F Assigned Patient Location: Current Patient Location: Accession/Order Number: [id number] Exam Date: 01/25/2025 09:36 Report Date: 01/25/2025 [...] JAYE 08/29/2025. Impression dictated by: Jordin Cheney Jr. Dread 01/25/2025 2:26 PM Dictation Location: [place] [address] Electronically authenticated by: [id number] Y Date: 4:26 Dictated By: Jordin Cheney M.D. Signed By:01/25/25 1429 DD/ 1426 TD/TT: Dining Room Supervisor: Authorizing ProviderResult TypeResult StatusCorey Alia DOCLINISYNC IMAGINGFinal Result from Last 3 Months Insurance Care Teams Team MemberRelationshipSpecialtyStart DateEnd Date Jeannie Reynolds MD [address] [place], [place] [id number] PCP - GeneralFamily Medicine09/21/22 Sarah Sykes NP [address] [place] [address] Nurse PractitionerFamily Medicine09/21/22
--- OUTSIDE RECORDS SUMMARY | 2025-04-12 14:57 | XMS_ITS | Clinical Summary ---
Author Organization [employer] s [employer] Address [id number] [address] [place] [address] Care Team Providers Care Electrical Assembly Technician Name Role Phone Leah Azar MD Primary Care Provider [phone] Allergies No known active allergies Medications MedicationSigDispense QuantityRefillsLast FilledStart DateEnd DateStatus ibuprofen (ADVIL,MOTRIN) 800 mg tablet Take 1 tablet (800 mg total) by mouth 3 (three) times a day. 21 tablet 12/06/2020ctive Additional Information Patient not taking.Reported on 05/25/2021 buPROPion XL (WELLBUTRIN XL) 300 mg 24 hr tablet Take 300 mg by mouth daily.Active Active Problems No known active problems Encounters DateTypeDepartmentCare PablJzfdhlsekyd95/04/2025Travelfrom Last 3 Months Family History Medical HistoryRelationNameCommentsBreast cancerNeg HxCancerNeg HxColon cancer Neg HxDiabetesNeg HxHypertensionNeg HxOvarian cancerNeg HxStrokeNeg Hx Social History Tobacco UseTypesPacks/DayYears UsedDateSmoking Tobacco: Every DayCigarettes Smokeless Tobacco: Never Tobacco Cessation:Ready to Q uit: Yes; Counseling Given: Yes Alcohol UseStandard Drinks/WeekCommentsYes0 (1 standard drink = 0.6 oz pure alcohol)TWICE WEEKLYChildcareAnswerDate MvoydqltChfssbezpHdyvsum91/12/2019 EmploymentAnswerDate BezhqtmnKwfejeosuoAomenze31/12/2019Hunger ScreeningAnswer Date RecordedWithin the past 12 months we worried whether our food would run out before we got money to buy more.Never True07/28/2024Within the past 12 months the food we bought just didn't last and we didn't have money to get more.Never True07/28/2024Purpose - LifeAnswerDate RecordedPurpose and direction in life Nukaswx50/22/2021CommentsNoSex and Gender InformationValueDate Recorded Sex Assigned at BirthNot on fileLegal AoxSatygp30/06/2015 11:58 AM EDTGender IdentityNot on fileSexual OrientationNot on file Last Filed Vital Signs Vital SignReadingTime TakenCommentsBlood Qimjgbmq846/7604 3:15 PM EDT Vvhjx602707/28/2024 3:15 PM QSDYmbohqooivk32.4 ??C (97.6 ??F)07/28/2024 1:41 PM EDTRespiratory Dkkp985407/28/2024 3:15 PM EDTOxygen Xyqqzjryny77%07/28/2024 3:15 PM EDTInhaled Oxygen Concentration--Dmmeor370.4 kg (239 lb)07/28/2024 1:41 PM PRHYftgcf764.6 cm (5' 4 )07/28/2024 1:41 PM EDTBody Mass Index41.02007/28/2024 1:41 PM EDT Plan of Treatment Health MaintenanceDue DateLast DoneCommentsTobacco Umllaeddru87/06/2002 Depression Bmxfflidr36/06/2014Adult BMI Follow Up Plan2019Chlamydia Vwlvalmdx59/1Pap Smear3DTaP,Tdap and Td Vaccines (7 - Td or Tdap)/06/2013, 09/15/2006, 07/30/2002, Additional history existsCOVID-19 Vaccine ( season)/07/2022, 06/01/2022 Influenza Ldfbhtd65/, 02/12/2009, 04/29/2008, Additional history existsAdult BMI Qmxothweb61/08/2024Tobacco Ggmjfgyly47/05/2026 07/28/2024 Medical Devices Not on file Procedures Procedure NamePriorityDate/TimeAssociated DiagnosisCommentsCHLAMYDIA/GC BY PCR MICHELE RUKZTxghvtl02/04/2021 12:23 PM EST Screening for STDs (sexually transmitted diseases) from Last 3 Months or Most Recently Relevant to Health Maintenance Results * Chlamydia/GC by PCR Michele Swab (06/26/2020 12:23 PM EST)ComponentValueRef RangeTest MethodAnalysis TimePerformed AtPathologist SignatureSpecimen source YDRDEXAY08/04/2021 9:29 PM [facility] LABComment:Corrected on 06/26 AT 2129: Previously reported as CERVICALChlamydia DNA PCRNegative Negative^Duqejvgs33/05/2021 12:47 PM [facility] LABComment: ? Chlamydia trachomatis not detected by nucleic acid amplification. This does not exclude the possibility of infection because results are dependent on adequate specimen collection. ? Gonorrhea DNA PCRNegativeNegative^Zjjxbtfg19/05/2021 12:47 PM [facility] LABComment: ? Neisseria gonorrhoeae not detected by nucleic acid amplification. This does not exclude the possibility of infection because results are dependent on adequate specimen collection. ? Specimen (Source)Anatomical Location / LateralityCollection Method / Volume Collection TimeReceived XrkuURDS02/04/2021 12:23 PM EST06/26/2020 9:29 PM EST Narrative Authorizing ProviderResult TypeResult StatusGaylbárbara Duval APRN-CNMMICROBIOLOGY - GENERAL ORDERABLESEdited Result - FinalPerforming OrganizationAddress City/State/ZIP CodePhone Number [facility] [address] [place] [address] from Last 3 Months or Most Recently Relevant to Health Maintenance Insurance Care Teams Team MemberRelationshipSpecialtyStart DateEnd Leah Azar MD PCP - GeneralFawyly Medicine10/01/16
--- OUTSIDE RECORDS SUMMARY | 2025-04-12 14:57 | XMS_ITS | Encounter Summary ---
Author Organization [facility] Address [address] [place] [address] Care Team Providers Care Tower Equipment Installer Name Role Phone Jeannie Reynolds MD Primary Care Provider [phone] Sarah Sykes DELIVERY MOTORCYCLE DRIVER Unavailable [phone] Encounter Details DateTypeDepartmentCare Team (Latest Contact Info)Nenhgzmsxwv54/19/2025Orders Only [facility] [address] [place] [address] Linda Lala MA [address] 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 Not on fileNot on fileNot on filedocumented as of this encounter Plan of Treatment DateTypeDepartmentCare Team (Latest Contact Info)Yrenjbkbehp27/05/2026 3:20 PM ESTRoutine [facility] [address] [place] [id number] Shaw Rojo DO [address] [place] [address] documented as of this encounter Procedures Procedure NamePriorityDate/TimeAssociated DiagnosisCommentsPAP TEST, EXTERNAL Ccthmqv7504/01/2025 12:00 AM ESTdocumented in this encounter Results * PAP TEST, EXTERNAL (04/01/2025 12:00 AM EST) Narrative Authorizing ProviderResult TypeResult StatusAmy [place] PALAB CYTOLOGY ORDERABLES Final ResultPerforming OrganizationAddressCity/State/ZIP CodePhone Number EXTERNAL LAB documented in this encounter Visit Diagnoses Not on filedocumented in this encounter Additional Health Concerns AssessmentNoted TimePHQ-9 Depression Total Score: 14105/04/2022 10:43 AM EST documented as of this encounter Care Teams Team MemberRelationshipSpecialtyStart DateEnd Date Jeannie Reynolds MD [address] [place] [address] PCP - GeneralFamily Medicine09/21/22 Sarah Sykes NP [address] [place] [address] Nurse PractitionerFamily Medicine09/21/22documented as of this encounter
--- OUTSIDE RECORDS SUMMARY | 2025-04-12 14:57 | XMS_ITS | Encounter Summary ---
Author Organization [facility] Address [address] [facility] [place] [address] Care Team Providers Care Digital Sales Executive Name Role Phone Jeannie Reynolds MD Primary Care Provider [phone] Sarah Sykes EMPLOYEE BENEFITS ADMINISTRATOR Unavailable [phone] Encounter Details DateTypeDepartmentCare Team (Latest Contact Info)Bhdzlskkfpx15/08/2025amboo flowsheet [facility] [address] [facility] [place] [address] Yaritza Nguyen PA [address] [facility] [address] [facility] [address] [place], [facility] Social History Tobacco UseTypesPacks/DayYears UsedDateSmoking Tobacco: FormerCigarettes [...] on one occasion?Never08/30/2022HQ-2AnswerDate Recorded Patient Health Questionnaire-2 Bauno511Estimated Date of SkmnkobyKmgvithzPns85/07/2026ased on last menstrual period of 11/22/2024Sex and Gender InformationValueDate RecordedSex Assigned at BirthNot on fileLegal Sex Usrxrw7407/07/2022 6:48 PM EDTGender IdentityNot on fileSexual OrientationNot on fileOccupationIndustryJob 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 Not on fileNot on fileNot on filedocumented as of this encounter Plan of Treatment DateTypeDepartmentCare Team (Latest Contact Info)Hncjrbxenzq15/05/2026 3:20 PM ESTRoutine [facility] [address] [facility] [place] [address] Shaw Rojo DO [address] [facility] [place] [address] documented as of this encounter Visit Diagnoses Not on filedocumented in this encounter Additional Health Concerns AssessmentNoted TimePHQ-9 Depression Total Score: 14105/04/2022 10:43 AM EST documented as of this encounter Care Teams Team MemberRelationshipSpecialtyStart DateEnd Date Jeannie Reynolds MD [address] [facility] [place] [address] PCP - GeneralFamily Medicine09/21/22 Sarah Sykes NP [address] [facility] [place] [address] Nurse PractitionerFamily Medicine09/21/22documented as of this encounter
--- OUTSIDE RECORDS SUMMARY | 2025-04-12 14:57 | XMS_ITS | Encounter Summary ---
Author Organization [facility] Address [address] [place] [address] Care Team Providers Care Dam Tender Assistant Name Role Phone Jeannie Reynolds MD Primary Care Provider [phone] Sarah Sykes COMPENSATION PROGRAMS MANAGER Unavailable [phone] Encounter Details DateTypeDepartmentCare Team (Latest Contact Info)Nysavdixgrq87/08/2025External Result Encounter [facility] External Department Unsolicited Yaritza Nguyen PA [address] [place] [address] [place], [place] [address] Social History Tobacco UseTypesPacks/DayYears UsedDateSmoking Tobacco: FormerCigarettes [...] on one occasion?Never08/30/2022HQ-2AnswerDate Recorded Patient Health Questionnaire-2 Rukun904Estimated Date of YjvpmrcoYlhjfpnhYqk29/07/2026Based on last menstrual period of 11/22/2024Sex and Gender InformationValueDate RecordedSex Assigned at BirthNot on fileLegal Sex Bskcaa4407/07/2022 6:48 PM EDTGender IdentityNot on fileSexual OrientationNot on fileOccupationIndustryJob 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 Not on fileNot on fileNot on filedocumented as of this encounter Plan of Treatment DateTypeDepartmentCare Team (Latest Contact Info)Viygbsdauqh89/05/2026 3:20 PM ESTRoutine [facility] [address] [place] [address] AliaShaw schroeder, [address] [facility] [place] [address] documented as of this encounter Procedures Procedure NamePriorityDate/TimeAssociated DiagnosisCommentsRECURRENT VAGINITIS (HTRX)Vzskbug0704/01/2025 4:00 AM EST documented in this encounter Results * RECURRENT VAGINITIS (HTRX) (04/01/2025 4:00 AM EST)ComponentValueRef RangeTest MethodAnalysis TimePerformed AtPathologist SignatureATOPOBIUM TDQJZXZ190.961 - 24.689 ppm04/03/2025 6:58 AM ESTHealthTrackRx at LabPortATOPOBIUM VAGINAENot Xeawnzbq64.961 - 24.689 ppm04/03/2025 6:58 AM ESTHealthTrackRx at LabPortBVAB 2,3 (BACTERIAL VAGINOSIS ASSOCIATED BACTERIA 2, 3); MOBILUNCUS UTQ399.961 - 24.689 ppm04/03/2025 6:58 AM ESTHealthTrackRx at LabPortBVAB 2,3 (BACTERIAL VAGINOSIS ASSOCIATED BACTERIA 2, 3); MOBILUNCUS SPPNot Pxhmkfym80.961 - 24.689 ppm04/03/2025 6:58 AM ESTHealthTrackRx at LabPortCANDIDA ALBICANS, PARAPSILOSIS, XFEKCRGLBK782.000 - 30.347 ppm04/03/2025 6:58 AM EST [facility] at LabPortCANDIDA ALBICANS, PARAPSILOSIS, TROPICALISNot Detected 23.000 - 30.347 ppm04/03/2025 6:58 AM ESTHealthTrackRx at LabPortCANDIDA DIFUYUVP393.000 - 31.618 ppm04/03/2025 6:58 AM ESTHealthTrackRx at LabPort CLIFFORD GLABRATANot Ezwpbahp50.000 - 31.618 ppm04/03/2025 6:58 AM EST [facility] at LabPortCANDIDA IHZMIQ567.000 - 30.873 ppm04/03/2025 6:58 AM ESTHealthTrackRx at LabPortCANDIDA KRUSEINot Bezattqn91.000 - 30.873 ppm 04/03/2025 6:58 AM ESTHealthTrackRx at LabPortCHLAMYDIA QBWEMZEZFVC310.000 - 31.586 ppm04/03/2025 6:58 AM ESTHealthTrackRx at LabPortCHLAMYDIA TRACHOMATIS Not Sxctlvaf56.000 - 31.586 ppm04/03/2025 6:58 AM ESTHealthTrackRx at LabPort GARDNERELLA CFKKGZXXL601.961 - 24.689 ppm04/03/2025 6:58 AM ESTHealthTrackRx at LabBloomington Hospital Of Orange CountyGARDNERELLA VAGINALISNot Wvpppoog30.961 - 24.689 ppm04/03/2025 6:58 AM ESTHealthTrackRx at LabPortMEGASPHAERA (TYPES 1, 2)019.961 - 24.689 ppm 04/03/2025 6:58 AM ESTHealthTrackRx at LabPortMEGASPHAERA (TYPES 1, 2)Not Janilwpa74.961 - 24.689 ppm04/03/2025 6:58 AM ESTHealthTrackRx at LabPort NEISSERIA XQTMSPYGHFQ736.000 - 32.587 ppm04/03/2025 6:58 AM ESTHealthTrackRx at LabPortNEISSERIA GONORRHOEAENot Qrfzixzu94.000 - 32.587 ppm04/03/2025 6:58 AM ESTHealthTrackRx at LabPortTRICHOMONAS EYPLGNYJM772.000 - 31.995 ppm 04/03/2025 6:58 AM ESTHealthTrackRx at LabPortTRICHOMONAS VAGINALISNot Ufdadocx44.000 - 31.995 ppm04/03/2025 6:58 AM ESTHealthTrackRx at LabPort MYCOPLASMA EXOSUVEJAR718.961 - 24.689 ppm04/03/2025 6:58 AM ESTHealthTrackRx at LabPortMYCOPLASMA GENITALIUMNot Ihpmsyqz47.961 - 24.689 ppm04/03/2025 6:58 AM ESTHealthTrackRx at LabPortSpecimen (Source)Anatomical Location / LateralityCollection Method / VolumeCollection TimeReceived TimeTissue 04/01/2025 4:00 AM EST04/03/2025 1:39 AM EST Narrative Authorizing ProviderResult TypeResult StatusAmy Vardaman PAL BLOOD ORDERABLES Final ResultPerforming OrganizationAddressCity/State/ZIP CodePhone Number [facility] [address] [place] [phone] documented in this encounter Visit Diagnoses Not on filedocumented in this encounter Additional Health Concerns AssessmentNoted TimePHQ-9 Depression Total Score: 14105/04/2022 10:43 AM EST documented as of this encounter Care Teams Team MemberRelationshipSpecialtyStart DateEnd Date Jeannie Reynolds MD [address] [place], [place] [id number] PCP - GeneralFamily Medicine09/21/22 Sarah Sykes NP [address] [place], [place] [id number] Nurse PractitionerFamily Medicine09/21/22documented as of this encounter
--- NOTE | 2025-04-12 14:59 | US_ITS ---
[address] [address] Patient Name: BRYNN WALLACE MRN: [id number] date: 2000 Sex: F Assigned Patient Location: Current Patient Location: [place] Accession/Order Number: [id number] Exam Date: 04/12/2025 15:04 Report Date: 04/12/2025 23:21 At the request of: HANNAH PORTILLO Procedure: US OB cervical length US OB anatomy, US OB cervical length 04/12/2025 5:32 PM SIGNS AND SYMPTOMS: ^Screening Anatomic Survey COMPARISON: None. TECHNIQUE: Limited pelvic ultrasound using transvesical sonography. FINDINGS: An intrauterine is identified. The fetus has an estimated gestational age of 19 weeks and 5 days. A heart rate is identified at 146 bpm. A normal amount of amniotic fluid is present. There is no evidence for placenta previa or subchorionic hemorrhage. There is a hypoechoic structure within the placenta which may represent a placental gallego or placental cyst. 2 cm in greatest dimension. There is a 2 mm echogenic focus within the left ventricle which is likely of no clinical significance. anatomy is otherwise within normal limits. Pelvic survey reveals no gross abnormalities. The cervix measures 5.2 cm in length. Internal cervical os is closed. US/US OB anatomy IMPRESSION: Single live IUP with an estimated gestational age of 19 weeks and 5 days with an estimated date of delivery of 09/01/2025 and normal heart rate. There is a 2 mm echogenic focus within the left ventricle which is likely of no clinical significance. anatomy is otherwise within normal limits. The cervix measures 5.2 cm in length. Internal cervical os is closed. Impression dictated by: George Floyd M.D. 04/12/2025 11:21 PM Dictation Location: [employer] Electronically authenticated by: [id number] Y Date: 04/12/2025 23:21
--- NOTE | 2025-04-12 14:59 | US_ITS ---
The [address] [address] Patient Name: BRYNN WALLACE MRN: [id number] date: 2000 Sex: F Assigned Patient Location: Current Patient Location: [place] Accession/Order Number: [id number] Exam Date: 04/12/2025 15:04 Report Date: 04/12/2025 23:21 At the request of: HANNAH PORTILLO Procedure: US OB cervical length US OB anatomy, US OB cervical length 04/12/2025 5:32 PM SIGNS AND SYMPTOMS: ^Screening Anatomic Survey COMPARISON: None. TECHNIQUE: Limited pelvic ultrasound using transvesical sonography. FINDINGS: An intrauterine is identified. The fetus has an estimated gestational age of 19 weeks and 5 days. A heart rate is identified at 146 bpm. A normal amount of amniotic fluid is present. There is no evidence for placenta previa or subchorionic hemorrhage. There is a hypoechoic structure within the placenta which may represent a placental gallego or placental cyst. 2 cm in greatest dimension. There is a 2 mm echogenic focus within the left ventricle which is likely of no clinical significance. anatomy is otherwise within normal limits. Pelvic survey reveals no gross abnormalities. The cervix measures 5.2 cm in length. Internal cervical os is closed. US/US OB cervical length IMPRESSION: Single live IUP with an estimated gestational age of 19 weeks and 5 days with an estimated date of delivery of 09/01/2025 and normal heart rate. There is a 2 mm echogenic focus within the left ventricle which is likely of no clinical significance. anatomy is otherwise within normal limits. The cervix measures 5.2 cm in length. Internal cervical os is closed. Impression dictated by: George Floyd M.D. 04/12/2025 11:21 PM Dictation Location: [employer] Electronically authenticated by: [id number] Y Date: 04/12/2025 23:21
== END 2025-04-12 14:56 | disposition home or self-care (01) ==
LOC: US 14:55
PROVIDERS: PCP Family Medicine; Visit Provider Physician Assistant
DX: Z36.89 Encounter for other specified antenatal screening (principal); Z3A.19 19 weeks gestation of pregnancy
CPT/HCPCS: 76805; 76817